=== PATIENT | female | born 1945 ===

== ENCOUNTER 2020-03-25 12:15 | Emergency (ER) | payer OTHER, SELFPAY ==
--- NOTE | 2020-03-25 12:23 | ED_ITS ---
HPI - Dizziness General Chief Complaint: Dizziness Stated Complaint: ? AMS,? UTI Time Seen by Provider: 03/25/20 12:17 Source: patient and EMS Mode of arrival: EMS Limitations: no limitations History of Present Illness MD elicited complaint: lightheadedness and disequilibrium Pertinent past history: other (hx of dizziness in the past) Onset (ago): unknown (woke up at 8am and the symptoms were present) Timing: gradual onset Severity: moderate Description: lightheadedness and off-balance History of similar symptoms: Yes Exacerbating factors: movement/ambulation and change in body position Relieving factors: remaining still Associated symptoms: nausea and weakness Associated neuro symptoms: other (DENIES) Related Data Home Medications Medication Instructions Recorded Confirmed albuterol sulfate 90 mcg/actuation 2 puff PO Q4H PRN 03/21/20 03/21/20 aerosol inhaler atorvastatin 80 mg tablet 80 mg PO DAILY 03/21/20 03/21/20 azelastine 137 mcg (0.1 %) nasal 2 spray INTRANASAL BID 03/21/20 03/21/20 spray aerosol celecoxib 200 mg capsule 200 mg PO BID 03/21/20 03/21/20 cephalexin 500 mg capsule 500 mg PO QID 03/21/20 03/21/20 cetirizine 10 mg tablet 10 mg PO DAILY 03/21/20 03/21/20 cholecalciferol (vitamin D3) 50 50 mcg PO DAILY 03/21/20 03/21/20 mcg (2,000 unit) capsule ciprofloxacin HCl 500 mg tablet 500 mg PO BID 03/21/20 03/21/20 dexlansoprazole 60 mg 60 mg PO DAILY 03/21/20 03/21/20 capsule,biphase delayed release diclofenac sodium 1 % topical gel 4 g TOPICAL QID PRN 03/21/20 03/21/20 doxycycline hyclate 100 mg tablet 100 mg PO BID 03/21/20 03/21/20 estradiol g VAGINAL 03/21/20 03/21/20 fluticasone fur. 100 mcg-umeclid ea INHALATION 03/21/20 03/21/20 62.5 mcg-vilant 25 mcg inhalat.powder metoprolol succinate 50 mg 100 mg PO DAILY 03/21/20 03/21/20 tablet,extended release 24 hr nitrofurantoin macrocrystal 100 mg 100 mg PO DAILY 03/21/20 03/21/20 capsule nitrofurantoin 1 cap PO BID 03/21/20 03/21/20 monohydrate/macrocrystals 100 mg capsule nitroglycerin 0.4 mg sublingual 0 mg SUBLINGUAL 03/21/20 03/21/20 tablet olmesartan 5 mg tablet 5 mg PO DAILY 03/21/20 03/21/20 oxybutynin chloride 5 mg 5 mg PO DAILY 03/21/20 03/21/20 tablet,extended release 24 hr phenazopyridine 200 mg tablet 200 mg PO Q8H PRN 03/21/20 03/21/20 prednisone 20 mg tablet 0 mg PO 03/21/20 03/21/20 tramadol 50 mg tablet 50 mg PO Q6H PRN 03/21/20 03/21/20 Previous Rx's Medication Instructions Recorded meclizine 25 mg PO TID PRN #30 tab 03/25/20 nitrofurantoin monohyd/m-cryst 100 mg PO BID 7 Days #14 cap 03/25/20 [Macrobid] Allergies Allergy/AdvReac Type Severity Reaction Status Date / Time clavulanic acid Allergy Mild RASH Unverified 03/05/20 15:48 [From Augmentin] amoxicillin [Augmentin] Allergy Unknown Verified 12/30/19 00:00 Review of Systems Review of Systems: Constitutional : No Fever, No Chills, No Fatigue ENT/Mouth : No sore throat, No Rhinorrhea Eyes: No Eye Pain, No Swelling, No Redness Cardiovascular : No Chest Pain, No SOB, No Dyspnea on Exertion Respiratory : No Cough, No Sputum Gastrointestinal : + Nausea, No Vomiting, No Diarrhea, No abdominal Pain Genitourinary : No Dysuria, No Urinary Frequency, No Hematuria, Musculoskeletal : No joint pain, No Myalgias, No Joint Swelling Skin : No Skin Lesions, No rash Neuro : No Weakness, No Numbness, + Dizziness, no Headache Psych : No Anxiety/Panic, No Depression Heme/Lymph: No Bruising, No Bleeding,No Lymphadenopathy Endocrine : No Polyuria, No Polydipsia All other systems reviewed and are negative [facility] Past Medical History Medical History COPD (chronic obstructive pulmonary disease) Diabetes Dizziness Headache HTN (hypertension) Hyperlipidemia Surgical History H/O colonoscopy History of bunionectomy History of foot surgery History of toe surgery S/P right coronary artery (RCA) stent placement Family History Family History (Updated 03/21/20 @ 09:45 by CHANNING Greco) Mother No problems noted. Father No problems noted. Social History Social History (Updated 03/25/20 @ 12:34 by Kriss Chang DO) Alcohol intake: never Smoking Status: Never smoker Use of substances other than those prescribed or required for medical reasons: No Advance Directives: No Advance Directives Information Provided: Yes Physical Exam Vital Signs and I&O and Narrative: Vital Signs and I&O: Vital Signs Temp 98.1 F 03/25/20 12:32 Pulse 75 03/25/20 12:32 Resp 16 03/25/20 12:32 BP 148/49 H 03/25/20 12:32 Pulse Ox 96 03/25/20 12:32 Intake & Output 03/24/20 03/25/20 03/25/20 18:59 06:59 18:59 Weight 83.007 kg Body Mass Index 31.4 Appearance: Alert. Oriented X3. No acute distress. Eyes: Pupils equal, round and reactive to light. ENT: Pharynx normal. Ears normal, visual celestin normal Neck: Normal inspection. Neck supple. CVS: Normal heart rate and rhythm. Pulses normal. Respiratory: No respiratory distress. Breath sounds normal. Abdomen: Soft and nontender. Skin: Skin warm and dry. Normal skin color. Normal skin turgor. Extremities: No lower extremity edema. No lower extremity edema. Neuro: Oriented X 3. No motor deficit. No sensory deficit. no drift, no nystagmus Course Course Course Narrative: labs stable, feels much better, will dose macrobid for UTI, states her dizziness resolved MDM - Dizziness MDM Narrative Medical decision making narrative: 74 yo female feels weak and nauseated, onset when she woke up over 4.5 hours ago and woke up with symptoms has no headache, hx of dizziness in the past, she has no pain or neuro symptoms will obtain EKG, labs, UA, hydrate and given zofran/antivert, seems atypical without deficits for posterior stroke at this time Lab Data Result diagrams: 03/25/20 14:15 03/25/20 14:15 Labs: Lab Results 03/25/20 03/25/20 03/25/20 Range/Units 14:15 14:15 14:15 WBC 8.3 (4.8-10.8) X10*3/uL RBC 3.79 L (4.20-5.50) X10*6/uL Hgb 11.2 L (12.0-16.0) g/dl Hct 34.5 L (37-47) % MCV 91.0 (80-98) fL MCH 29.6 (27.0-33.0) pg MCHC 32.5 (31.0-35.0) g/dl RDW 14.7 (11.0-16.0) % Plt Count 258 (160-400) X10*3/uL MPV 10.7 (9.4-12.3) fL Immature Gran % (Auto) 0.5 H (0.0-0.4) % Neut % (Auto) 62.4 (45-73) % Lymph % (Auto) 24.2 (20-40) % [place] % (Auto) 10.8 (2-11) % Eos % (Auto) 1.9 (0-4) % Baso % (Auto) 0.2 (0-2) % Neut # (Auto) 5.2 (2.0-8.3) X10*3/uL Lymph # (Auto) 2.0 (1.2-4.9) X10*3/uL [place] # (Auto) 0.9 (0.1-1.2) X10*3/uL Eos # (Auto) 0.2 (0.0-0.4) X10*3/uL Baso # (Auto) 0.0 (0.0-0.2) X10*3/uL Abs Immat Gran (auto) 0.04 H (0.00-0.03) X10*3/uL Absolute Nucleated RBC 0.000 (0.0-0.012) X10*3/uL Nucleated RBC % (auto) 0.0 (0.0-0.2) /100WBC Hold Blue Top SEE NOTE Sodium (135-145) mmol/L Potassium (3.3-5.1) mmol/l Chloride (96-108) mmol/L Carbon Dioxide (22-29) mmol/L Anion Gap (12-20) BUN (9-16) mg/dL Creatinine (0.5-1.4) mg/dL Estim Creat Clear Calc Estimated GFR Random Glucose (60-115) mg/dL Calcium (8.4-10.2) mg/dL Magnesium (1.6-2.6) mg/dL Total Bilirubin (0.0-1.0) mg/dL Direct Bilirubin (0.0-0.5) mg/dL AST (5-31) U/L ALT (0-31) U/L Alkaline Phosphatase (39-117) U/L Troponin I High Sens (<3.5-17.0) ng/L Total Protein (6.5-8.0) g/dL Albumin (3.5-5.0) g/dL Lipase (8-78) U/L Urine Color YELLOW Urine Appearance HAZY Urine pH 6.5 (5.0-8.0) Ur Specific [place] 1.015 (1.005-1.025) Urine Protein NEG (NEG-TRACE) MG/DL Urine Glucose (UA) NEG (NEG) MG/DL Urine Ketones NEG (NEG) MG/DL Urine Blood NEG (NEG) Urine Nitrite NEG (NEG) Ur Leukocyte Esterase 1+ H (NEG) Urine RBC 0 (0) /HPF Urine WBC 10-14 H (0-4) /HPF Ur Squamous Epith Cells 2+ /LPF Ur Renal Epithelial Cell 1+ /LPF Urine Bacteria TRACE /LPF 03/25/20 03/25/20 Range/Units 14:15 14:15 WBC (4.8-10.8) X10*3/uL RBC (4.20-5.50) X10*6/uL Hgb (12.0-16.0) g/dl Hct (37-47) % MCV (80-98) fL MCH (27.0-33.0) pg MCHC (31.0-35.0) g/dl RDW (11.0-16.0) % Plt Count (160-400) X10*3/uL MPV (9.4-12.3) fL Immature Gran % (Auto) (0.0-0.4) % Neut % (Auto) (45-73) % Lymph % (Auto) (20-40) % [place] % (Auto) (2-11) % Eos % (Auto) (0-4) % Baso % (Auto) (0-2) % Neut # (Auto) (2.0-8.3) X10*3/uL Lymph # (Auto) (1.2-4.9) X10*3/uL [place] # (Auto) (0.1-1.2) X10*3/uL Eos # (Auto) (0.0-0.4) X10*3/uL Baso # (Auto) (0.0-0.2) X10*3/uL Abs Immat Gran (auto) (0.00-0.03) X10*3/uL Absolute Nucleated RBC (0.0-0.012) X10*3/uL Nucleated RBC % (auto) (0.0-0.2) /100WBC Hold Blue Top Sodium 142 (135-145) mmol/L Potassium 4.2 (3.3-5.1) mmol/l Chloride 107 (96-108) mmol/L Carbon Dioxide 27 (22-29) mmol/L Anion Gap 12 (12-20) BUN 12 (9-16) mg/dL Creatinine 0.97 (0.5-1.4) mg/dL Estim Creat Clear Calc 52.2 Estimated GFR 56 Random Glucose 108 (60-115) mg/dL Calcium 9.0 (8.4-10.2) mg/dL Magnesium 1.9 (1.6-2.6) mg/dL Total Bilirubin 0.5 (0.0-1.0) mg/dL Direct Bilirubin 0.2 (0.0-0.5) mg/dL AST 17 (5-31) U/L ALT 17 (0-31) U/L Alkaline Phosphatase 94 (39-117) U/L Troponin I High Sens < 3.5 (<3.5-17.0) ng/L Total Protein 6.4 L (6.5-8.0) g/dL Albumin 4.1 (3.5-5.0) g/dL Lipase 42 (8-78) U/L Urine Color Urine Appearance Urine pH (5.0-8.0) Ur Specific [place] (1.005-1.025) Urine Protein (NEG-TRACE) MG/DL Urine Glucose (UA) (NEG) MG/DL Urine Ketones (NEG) MG/DL Urine Blood (NEG) Urine Nitrite (NEG) Ur Leukocyte Esterase (NEG) Urine RBC (0) /HPF Urine WBC (0-4) /HPF Ur Squamous Epith Cells /LPF Ur Renal Epithelial Cell /LPF Urine Bacteria /LPF ECG Data Attestation: I personally reviewed and interpreted this ECG as follows: ECG interpretation date: 03/25/20 ECG interpretation time: 13:45 Interpretation: Rate: 82 Rhythm: NSR [place]: normal Normal P waves. Normal LIDIA. Normal QRS complex. ST T wave : nonspecific qTC: normal prior studies: no acute ischemia The study has been interpreted contemporaneously by me. . Discharge Plan Discharge Clinical Impression: Acute UTI, Dizziness Patient Disposition: Home, Self-Care Instructions: Dizziness (ED), Urinary Tract Infection in Older Adults (ED) Prescriptions: New meclizine 25 mg tablet 25 mg PO TID PRN (Reason: dizziness) Qty: 30 RF: 0 nitrofurantoin monohyd/m-cryst [Macrobid] 100 mg capsule 100 mg PO BID 7 Days Qty: 14 RF: 0 No Action doxycycline hyclate 100 mg tablet 100 mg PO BID RF: 0 prednisone 20 mg tablet 0 mg PO RF: 0 nitroglycerin 0.4 mg tablet, sublingual 0 mg sublingual RF: 0 Dexilant 60 mg capsule,biphase delayed releas 60 mg PO DAILY RF: 0 cephalexin 500 mg capsule 500 mg PO QID RF: 0 diclofenac sodium 1 % gel 4 g topical QID PRN (Reason: pain) RF: 0 Trelegy Ellipta 100-62.5-25 mcg blister with device inhalation RF: 0 phenazopyridine 200 mg tablet 200 mg PO Q8H PRN (Reason: dysuria) RF: 0 albuterol sulfate 90 mcg/actuation HFA aerosol inhaler 2 puff PO Q4H PRNRF: 0 estradiol 0.01 % (0.1 mg/gram) cream vaginal RF: 0 oxybutynin chloride 5 mg tablet extended release 24hr 5 mg PO DAILY RF: 0 cetirizine 10 mg tablet 10 mg PO DAILY RF: 0 nitrofurantoin macrocrystal 100 mg capsule 100 mg PO DAILY RF: 0 olmesartan 5 mg tablet 5 mg PO DAILY RF: 0 azelastine 137 mcg (0.1 %) aerosol,spray 2 spray intranasal BID RF: 0 atorvastatin 80 mg tablet 80 mg PO DAILY RF: 0 ciprofloxacin HCl 500 mg tablet 500 mg PO BID RF: 0 nitrofurantoin monohyd/m-cryst 100 mg capsule 1 cap PO BID RF: 0 celecoxib 200 mg capsule 200 mg PO BID RF: 0 metoprolol succinate 50 mg tablet extended release 24 hr 100 mg PO DAILY RF: 0 tramadol 50 mg tablet 50 mg PO Q6H PRN (Reason: pain) RF: 0 cholecalciferol (vitamin D3) 50 mcg (2,000 unit) capsule 50 mcg PO DAILY RF: 0 Referrals: Wiley Thompson MD [Primary Care Provider] - 2 days (if not better)
--- NOTE | 2020-03-25 12:24 | ECG_ITS ---
Test Reason : DIZZINESS Blood Pressure : / mmHG Vent. Rate : 082 BPM Atrial Rate : 082 BPM P-R Int : 130 ms QRS Dur : 076 ms QT Int : 378 ms P-R-T Axes : 066 041 033 degrees QTc Int : 441 ms Normal sinus rhythm Nonspecific T wave abnormality Abnormal ECG When compared with ECG of 29-FEB-2020 00:43, Nonspecific T wave abnormality, worse in Anterior leads Referred By: Kriss Chang Electronically Signed By:BRITT STEWART
[2020-03-25 12:32] VITALS: BP 148/49; BP 160/74; PULSE 75; PULSE 90; RESP 16; TEMP 36.7; O2SAT 100; O2SAT 96; BMI 31.4
[2020-03-25] MEDS: 0.9 % Sodium Chloride 1,000 ML 999 ML IVCONT (12:44)
[2020-03-25] MEDS: ondansetron HCL 4 MG/2 ML VIAL IVPUSH (12:45)
[2020-03-25] MEDS: Meclizine HCl 25 MG TABLET PO (12:45)
[2020-03-25 14:22] LABS: MANUAL DIFF FLAG NO
[2020-03-25 14:27] LABS: Basophils Percent Auto 0.2 % (0-2); Eosinophils Absolute Auto 0.2 X10*3/uL (0.0-0.4); Eosinophils Percent Auto 1.9 % (0-4); Glucose Urine UA NEG (NEG); Hematocrit 34.5 % (37-47); Hemoglobin 11.2 g/dl (12.0-16.0); Imm Gran Abs Auto 0.04 X10*3/uL (0.00-0.03); Imm Gran Pct Auto 0.5 % (0.0-0.4); Leukocyte Esterase Urine 1+ (NEG); Lymphocytes Percent Auto 24.2 % (20-40); Mean Corpuscular HGB Conc 32.5 g/dl (31.0-35.0); Mean Corpuscular Hemoglobin 29.6 pg (27.0-33.0); Mean Platelet Volume 10.7 fL (9.4-12.3); Monocytes Absolute Auto 0.9 X10*3/uL (0.1-1.2); Monocytes Percent Auto 10.8 % (2-11); Neutrophils Absolute Auto 5.2 X10*3/uL (2.0-8.3); Neutrophils Percent Auto 62.4 % (45-73); Nitrite Urine NEG (NEG); PH 6.5 (5.0-8.0); Platelet Count 258 X10*3/uL (160-400); Red Blood Count 3.79 X10*6/uL (4.20-5.50); Red Cell Distribution Width 14.7 % (11.0-16.0); Specific Gravity - Urine 1.015 (1.005-1.025); Urine Blood NEG (NEG); Urine Ketones NEG (NEG); Urine Protein NEG (NEG-TRACE); White Blood Count 8.3 X10*3/uL (4.8-10.8)
[2020-03-25 14:33] LABS: Appearance Urine HAZY; Color Urine YELLOW
[2020-03-25 14:47] LABS: Alanine Aminotransferase 17 U/L (0-31); Albumin Level 4.1 g/dL (3.5-5.0); Alkaline Phosphatase 94 U/L (39-117); Anion Gap 12 (12-20); Aspartate Amino Transferase 17 U/L (5-31); Bilirubin Direct 0.2 mg/dL (0.0-0.5); Bilirubin Total 0.5 mg/dL (0.0-1.0); Blood Urea Nitrogen 12 mg/dL (9-16); Carbon Dioxide 27 mmol/L (22-29); Chloride 107 mmol/L (96-108); Creatinine Clr Calc Pharmacy 52.2; Estimated Glomerular Filt Rate 56; Glucose Random 108 mg/dL (60-115); Lipase 42 U/L (8-78); Magnesium 1.9 mg/dL (1.6-2.6); Potassium 4.2 mmol/l (3.3-5.1); Sodium 142 mmol/L (135-145); Total Protein 6.4 g/dL (6.5-8.0)
[2020-03-25 14:52] LABS: Bacteria Urine TRACE /LPF; RBC Urine 0 /HPF (0); Renal Epithelial Cells Urine 1+ /LPF; Squamous Epithelial Cell Urine 2+ /LPF
[2020-03-25 14:54] LABS: Troponin-I High Sensitivity < 3.5 ng/L (<3.5-17.0)
[2020-03-25 15:07] VITALS: BP 143/71; PULSE 100; RESP 17; TEMP 36.8; O2SAT 95
[2020-03-25] MEDS: Nitrofurantoin Monohyd/M-Cryst 100 MG CAPSULE PO (15:13)
== END 2020-03-25 15:14 | disposition home or self-care (01) ==
PROVIDERS: Emergency Provider Emergency Medicine; PCP Internal Medicine
DX: N39.0 Urinary tract infection, site not specified (principal); R42 Dizziness and giddiness; E11.9 Type 2 diabetes mellitus without complications; I10 Essential (primary) hypertension; E78.5 Hyperlipidemia, unspecified; Z79.899 Other long term (current) drug therapy
CPT/HCPCS: 36415; 80048; 80076; 81001; 83690; 83735; 84484; 85025; 87086; 93005; 93010; 96361; 96374; 99284; J2405

== ENCOUNTER 2020-04-10 12:52 | Outpatient (REF) | payer OTHER, SELFPAY ==
--- NOTE | 2020-04-10 14:49 | XR_ITS ---
EXAMINATION: XR CHEST CLINICAL INFORMATION: COPD exacerbation. COMPARISON: 02/29/2020 chest radiograph. TECHNIQUE: 2 views of the chest were obtained. FINDINGS: No significant abnormality is noted involving the heart, lungs, mediastinum, bony thorax or soft tissues. XR/XR chest 2V IMPRESSION: No acute cardiopulmonary process.
[2020-04-10 15:13] LABS: MANUAL DIFF FLAG NO
[2020-04-10 15:16] LABS: Basophils Percent Auto 0.3 % (0-2); Eosinophils Absolute Auto 0.3 X10*3/uL (0.0-0.4); Eosinophils Percent Auto 4.3 % (0-4); Hematocrit 33.1 % (37-47); Hemoglobin 10.6 g/dl (12.0-16.0); Imm Gran Abs Auto 0.02 X10*3/uL (0.00-0.03); Imm Gran Pct Auto 0.3 % (0.0-0.4); Mean Corpuscular Hemoglobin 29.2 pg (27.0-33.0); Mean Corpuscular Volume 91.2 fL (80-98); Mean Platelet Volume 10.4 fL (9.4-12.3); Monocytes Absolute Auto 0.9 X10*3/uL (0.1-1.2); Monocytes Percent Auto 12.7 % (2-11); Neutrophils Absolute Auto 3.5 X10*3/uL (2.0-8.3); Neutrophils Percent Auto 52.4 % (45-73); Platelet Count 337 X10*3/uL (160-400); Red Blood Count 3.63 X10*6/uL (4.20-5.50); Red Cell Distribution Width 14.8 % (11.0-16.0); White Blood Count 6.7 X10*3/uL (4.8-10.8)
[2020-04-10 16:22] LABS: Erythrocyte Sedimentation Rate 32 MM/HR (0-20)
[2020-04-11 16:46] LABS: Immunoglobulin A 83 mg/dL (70-320)
[2020-04-13 18:27] LABS: Immunoglobulin E 71 kU/L (<OR=114)
[2020-04-13 22:42] LABS: Immunoglobulin G Subclass 1 531 mg/dL (382-929); Immunoglobulin G Subclass 2 127 mg/dL (241-700); Immunoglobulin G Subclass 3 61 mg/dL (22-178); Immunoglobulin G Subclass 4 31.1 mg/dL (4-86); Immunoglobulin G Total 797 mg/dL (600-1540)
== END 2020-04-10 12:53 | disposition home or self-care (01) ==
LOC: HO.LAB 12:52
PROVIDERS: PCP Internal Medicine; Visit Provider Hospitalist
DX: J44.0 Chronic obstructive pulmonary disease with (acute) lower respiratory infection (principal); J31.0 Chronic rhinitis
CPT/HCPCS: 36415; 71046; 82784; 82785; 85025; 85652; 87070; 87205; 99214

== ENCOUNTER 2020-04-10 19:12 | Emergency (ER) | payer OTHER, SELFPAY | END 2020-04-10 20:17 | disposition left against medical advice (07) | PROVIDERS: Emergency Provider Emergency Medicine; PCP Internal Medicine | DX: R06.02 Shortness of breath (principal) | CPT/HCPCS: 99281 ==

== ENCOUNTER → 2020-04-28 12:45 | Outpatient (BNVA) | payer OTHER, SELFPAY | PROVIDERS: PCP Internal Medicine; Referring Provider Internal Medicine; Visit Provider Hospitalist | DX: J44.0 Chronic obstructive pulmonary disease with (acute) lower respiratory infection (principal); J31.0 Chronic rhinitis; K21.9 Gastro-esophageal reflux disease without esophagitis; D80.1 Nonfamilial hypogammaglobulinemia | CPT/HCPCS: 99212 ==

== ENCOUNTER → 2020-07-30 12:49 | Outpatient (BNVA) | payer OTHER, SELFPAY | PROVIDERS: PCP Internal Medicine; Visit Provider Hospitalist | DX: J44.0 Chronic obstructive pulmonary disease with (acute) lower respiratory infection (principal); J31.0 Chronic rhinitis; K21.9 Gastro-esophageal reflux disease without esophagitis; D80.1 Nonfamilial hypogammaglobulinemia | CPT/HCPCS: Q3014 ==

== ENCOUNTER → 2021-01-29 12:57 | Outpatient (BNVA) | payer OTHER, SELFPAY | PROVIDERS: PCP Internal Medicine; Visit Provider Hospitalist | DX: J41.8 Mixed simple and mucopurulent chronic bronchitis (principal); J31.0 Chronic rhinitis; K21.9 Gastro-esophageal reflux disease without esophagitis; D80.1 Nonfamilial hypogammaglobulinemia | CPT/HCPCS: 99212 ==

== ENCOUNTER → 2021-03-05 09:51 | Outpatient (BNVA) | payer MEDICARE, SELFPAY | PROVIDERS: PCP Internal Medicine; Visit Provider Hospitalist | DX: J41.8 Mixed simple and mucopurulent chronic bronchitis (principal); J31.0 Chronic rhinitis; K21.9 Gastro-esophageal reflux disease without esophagitis; D80.1 Nonfamilial hypogammaglobulinemia; R49.0 Dysphonia | CPT/HCPCS: 99212 ==

== ENCOUNTER → 2021-05-21 13:56 | Outpatient (BNVA) | payer MEDICARE, SELFPAY | PROVIDERS: PCP Internal Medicine; Visit Provider Hospitalist | DX: J41.8 Mixed simple and mucopurulent chronic bronchitis (principal); J31.0 Chronic rhinitis; J40 Bronchitis, not specified as acute or chronic; D80.1 Nonfamilial hypogammaglobulinemia; K21.9 Gastro-esophageal reflux disease without esophagitis | CPT/HCPCS: 99212 ==

== ENCOUNTER → 2021-08-19 14:49 | Outpatient (BNVA) | payer MEDICARE, SELFPAY | PROVIDERS: PCP Internal Medicine; Visit Provider Obstetrics & Gynecology | DX: Z13.89 Encounter for screening for other disorder (principal) ==

== ENCOUNTER → 2021-09-02 12:50 | Outpatient (BNVA) | payer MEDICARE, SELFPAY | PROVIDERS: PCP Internal Medicine; Visit Provider Hospitalist | DX: J41.8 Mixed simple and mucopurulent chronic bronchitis (principal); J31.0 Chronic rhinitis; D80.1 Nonfamilial hypogammaglobulinemia; K21.9 Gastro-esophageal reflux disease without esophagitis | CPT/HCPCS: 99212 ==

== ENCOUNTER 2021-09-09 12:35 | Outpatient (REF) | payer OTHER, SELFPAY ==
--- NOTE | ~2021-09-09 | MM_ITS ---
EXAMINATION: MM SCREENING DIGITAL BREAST TOMOSYNTHESIS, BILATERAL CLINICAL INFORMATION: Screening. Asymptomatic. The lifetime risk of breast cancer based on the Tyrer-Cuzick Model is 1.3%. COMPARISON: Mammography: April 22, 2011 July 17, 2008 TECHNIQUE: Digital breast tomosynthesis is performed in both the craniocaudal and mediolateral oblique views along with computer-aided detection (CAD). Synthesized 2D images are generated from the tomosynthesis. FINDINGS: There are scattered areas of fibroglandular density (ACR BI-RADS breast composition Category b). There are no significant masses, abnormal calcifications, or other abnormalities. MM/MM tomosynthesis screening BI IMPRESSION: There are no significant changes from prior study. ASSESSMENT: BI-RADS 1: Negative RECOMMENDATION: Routine annual mammography screening. This patient's information was entered into a reminder system with a target due date for their next mammogram.
--- NOTE | ~2021-09-09 | MM_ITS ---
EXAMINATION: BONE DENSITOMETRY CLINICAL INDICATION: Encounter for screening for osteoporosis. Menopausal and female climacteric states. COMPARISON: This is the patient's baseline examination. TECHNIQUE: Using a [employer] Wireless DXA System (software version: 13.1) manufactured by [employer], dual-energy x-ray absorptiometry was performed of the lumbar spine and left hip. The images are of good technical quality. Summary results are attached. FINDINGS: AP SPINE L1-L2 (excluding L3 and L4): The data of L1-L4 has been changed to exclude the L3 and L4 vertebral bodies, because degenerative sclerosis at these levels may cause overestimation of lumbar spine density. BMD 0.898 g/cm2, Z-score -1.1, T-score -2.2, osteopenia. LEFT FEMUR, NECK: BMD 0.880 g/cm2, Z-score 0.5, T-score -1.1, osteopenia. LEFT FEMUR, TOTAL: BMD 0.961 g/cm2, Z-score 1.0, T-score -0.4, normal. IDENTIFIED RISK FACTORS: Height loss. Osteoporosis. Secondary osteoporosis, (early menopause, intestinal or bowel disease). HISTORY OF FRACTURE: None listed. MEDICATIONS: Vitamin D. MM/XR DEXA axial skeleton IMPRESSION: 1. DIAGNOSIS: Osteopenia based on the lowest T-score value of -2.2 in the lumbar spine applying World Health Organization criteria. 2. 10-YEAR FRACTURE RISK PREDICTION, FRAX: Major osteoporotic fracture (clinical spine, forearm, hip or shoulder) 6.0%. Hip fracture 1.0%. 3. Treatment Recommendations: NOF guidelines recommend consideration for treatment in postmenopausal women and men age 50 and older presenting with the following: -A hip or vertebral (clinical or morphometric) fracture. -T-score less than or equal to -2.5 at the femoral neck or spine after appropriate evaluation to exclude secondary causes. -Low bone mass at the hip or spine and a 10-year fracture probability by FRAX of greater than or equal to 3% for hip fracture or greater than or equal to 20% for major osteoporotic fracture based on the [place] adapted WHO algorithm. 4. Other Recommendations: All treatment decisions require clinical judgment and consideration of individual patient factors, including patient preferences, comorbidities, previous drug use, risk factors not captured in the FRAX model (e.g. frailty, falls, vitamin D deficiency, increased bone turnover, interval significant decline in bone density) and possible under or overestimation of fracture risk by FRAX. Additional medical evaluation for secondary cause of low bone mineral density may be appropriate. FUTURE SCAN RECOMMENDATION: People with diagnosed cases of osteoporosis or at high risk for fracture should have regular bone mineral density tests. For patients eligible for Medicare, routine testing is allowed once every 2 years. The testing frequency can be increased to one year for patients who have rapidly progressing disease, those who are receiving or discontinuing medical therapy to restore bone mass, or have additional risk factors.
== END 2021-09-09 12:36 | disposition home or self-care (01) ==
LOC: HO.MAMMO 12:35
PROVIDERS: PCP Internal Medicine; Visit Provider Obstetrics & Gynecology
DX: Z13.820 Encounter for screening for osteoporosis (principal); Z78.0 Asymptomatic menopausal state; Z79.899 Other long term (current) drug therapy; Z12.31 Encounter for screening mammogram for malignant neoplasm of breast
CPT/HCPCS: 77063; 77067; 77080

== ENCOUNTER → 2021-09-22 13:50 | Outpatient (BNVA) | payer OTHER, SELFPAY | PROVIDERS: Visit Provider Obstetrics & Gynecology | DX: M85.80 Other specified disorders of bone density and structure, unspecified site (principal) | CPT/HCPCS: 99212 ==

== ENCOUNTER 2021-11-18 13:11 | Outpatient (REF) | payer OTHER, SELFPAY ==
--- NOTE | ~2021-11-18 | XR_ITS ---
EXAMINATION: XR CHEST CLINICAL INFORMATION: Cough COMPARISON: 04/10/2020 TECHNIQUE: 2 views of the chest were obtained. FINDINGS: The lungs are well expanded. There is no focal consolidation, edema, or effusion. No pneumothorax. The cardiomediastinal silhouette is within normal limits. No acute osseous abnormality. Degenerative changes at both shoulders. XR/XR chest 2V IMPRESSION: No acute pulmonary finding.
== END 2021-11-18 13:12 | disposition home or self-care (01) ==
LOC: HO.HMGCX 13:11
PROVIDERS: PCP Internal Medicine
DX: R05.9 Cough, unspecified (principal)
CPT/HCPCS: 71046

== ENCOUNTER 2022-03-09 10:46 | Outpatient (REF) | payer OTHER, SELFPAY ==
[2022-03-09 12:03] LABS: Erythrocyte Sedimentation Rate 29 MM/HR (0-20)
[2022-03-11 14:02] LABS: Immunoglobulin G Subclass 1 587 mg/dL (382-929); Immunoglobulin G Subclass 2 138 mg/dL (241-700); Immunoglobulin G Subclass 3 79 mg/dL (22-178); Immunoglobulin G Total 872 mg/dL (600-1540)
[2022-03-11 14:47] LABS: Immunoglobulin E 111 kU/L (<OR=114)
== END 2022-03-09 10:47 | disposition home or self-care (01) ==
LOC: HO.LAB 10:46
PROVIDERS: PCP Internal Medicine; Visit Provider Hospitalist
DX: D80.1 Nonfamilial hypogammaglobulinemia (principal); J41.8 Mixed simple and mucopurulent chronic bronchitis
CPT/HCPCS: 36415; 82784; 82785; 85652

== ENCOUNTER 2022-03-10 13:41 | Outpatient (REF) | payer OTHER, SELFPAY ==
--- NOTE | ~2022-03-10 | XR_ITS ---
EXAMINATION: XR CHEST CLINICAL INFORMATION: Bronchopneumonia. COMPARISON: 11/18/2021 chest radiographs. TECHNIQUE: 2 views of the chest were obtained. FINDINGS: No significant abnormality is noted involving the heart, lungs, mediastinum, bony thorax or soft tissues. XR/XR chest 2V IMPRESSION: No acute cardiopulmonary process.
== END 2022-03-10 13:42 | disposition home or self-care (01) ==
LOC: HO.XRAY 13:41
PROVIDERS: PCP Internal Medicine; Visit Provider Hospitalist
DX: J41.8 Mixed simple and mucopurulent chronic bronchitis (principal); J18.0 Bronchopneumonia, unspecified organism; J31.0 Chronic rhinitis; K21.9 Gastro-esophageal reflux disease without esophagitis; D80.1 Nonfamilial hypogammaglobulinemia
CPT/HCPCS: 71046; 99212

== ENCOUNTER 2022-04-02 12:02 | Outpatient (REF) | payer OTHER, SELFPAY ==
[2022-04-02 14:50] LABS: Influenza A PCR NEGATIVE (Negative); Influenza B PCR NEGATIVE (Negative); Resp Syncy Virus RNA Qual PCR NEGATIVE (Negative); SARS COV2 PCR INHOUSE NEGATIVE (Negative)
== END 2022-04-02 12:03 | disposition home or self-care (01) ==
LOC: HO.LAB 12:02
PROVIDERS: Visit Provider Nurse Practitioner Acute Care
DX: R51.9 Headache, unspecified (principal); Z20.822 Contact with and (suspected) exposure to COVID-19
CPT/HCPCS: 0241U

== ENCOUNTER 2022-04-04 11:38 | Outpatient (REF) | payer OTHER, SELFPAY ==
[2022-04-04 12:10] LABS: Appearance Urine Clear; Color Urine Yellow; Glucose Urine UA Negative (Negative); Leukocyte Esterase Urine Moderate (2+) (Negative); Nitrite Urine Negative (Negative); Specific Gravity - Urine 1.015 (1.005-1.025); UMIC TRIGGER UACC YES; Urine Blood Negative (Negative); Urine Ketones Negative (Negative); Urine Protein Negative (Neg-Trace)
[2022-04-04 12:13] LABS: Bacteria Urine Trace (None Seen); Hyaline Casts Urine 0-2 /LPF (0-2); RBC Urine 0-2 /HPF (0-2); UACC Culture Trigger YES
== END 2022-04-04 11:39 | disposition home or self-care (01) ==
LOC: HO.LAB 11:38
PROVIDERS: PCP Internal Medicine; Visit Provider Nurse Practitioner Acute Care
DX: R39.15 Urgency of urination (principal)
CPT/HCPCS: 81001; 87086

== ENCOUNTER 2022-04-26 04:40 | Emergency (ER) | payer OTHER, SELFPAY ==
[2022-04-26 04:43] VITALS: BP 111/65; BP 130/90; PULSE 80; PULSE 92; RESP 18; TEMP 36.7; O2SAT 93; O2SAT 96; BMI 31.8
--- NOTE | 2022-04-26 05:01 | ED_ITS ---
HPI - Female Genitourinary General Chief complaint: Urogenital-Female Stated complaint: DIFFICULTY URINATING Time Seen by Provider: 04/26/22 05:00 Source: patient Mode of arrival: ambulatory Limitations: no limitations History of Present Illness HPI Narrative: Patient with history of recurrent UTI been feeling worse for last 2 days called her urologist was prescribed her Macrobid last time patient it was 21:00 feels she is holding the urine bladder scan in the ER shows 500 cc of urine no flank pain no fever no chills complaining of frequency and dysuria as in the past Related Data Home Medications Medication Instructions Recorded Confirmed atorvastatin 80 mg tablet 80 mg PO DAILY 03/21/20 11/18/21 cetirizine 10 mg tablet 10 mg PO DAILY 03/21/20 11/18/21 dexlansoprazole 60 mg 60 mg PO DAILY 03/21/20 11/18/21 capsule,biphase delayed release nitroglycerin 0.4 mg sublingual 0 mg sublingual 03/21/20 11/18/21 tablet albuterol sulfate 2.5 mg/3 mL mg inhalation Q4H PRN wheezing 04/28/20 11/18/21 (0.083 %) solution for nebulization melatonin 10 mg tablet 10 mg PO BEDTIME PRN 08/19/21 11/18/21 metoprolol succinate 50 mg 50 mg PO DAILY 08/19/21 11/18/21 tablet,extended release 24 hr amlodipine 5 mg tablet 5 mg PO DAILY 09/02/21 11/18/21 aspirin 81 mg tablet,delayed 81 mg PO DAILY 09/02/21 11/18/21 release isosorbide mononitrate 30 mg 30 mg PO QAM 09/02/21 11/18/21 tablet,extended release 24 hr Previous Rx's Medication Instructions Recorded cholecalciferol (vitamin D3) 50 50 mcg PO DAILY 30 days #30 caps 04/08/20 mcg (2,000 unit) capsule azelastine 137 mcg (0.1 %) nasal 2 spray intranasal BID #90 mL 04/28/20 spray aerosol levofloxacin 500 mg tablet 500 mg PO DAILY 10 days #10 tabs 03/10/22 meclizine 25 mg tablet 25 mg PO BID PRN dizziness #14 tabs 04/02/22 nitrofurantoin 100 mg PO BID #14 caps 04/02/22 monohydrate/macrocrystals 100 mg capsule (Macrobid) Trelegy Ellipta 100 mcg-62.5 1 ea PO DAILY #60 ea 04/13/22 mcg-25 mcg powder for inhalation ([id number]) albuterol sulfate 90 mcg/actuation 2 puff PO Q4H PRN for wheezing 04/19/22 aerosol inhaler #8.5 ea cefuroxime axetil 250 mg tablet 250 mg PO BID 7 days #14 tabs 04/26/22 phenazopyridine 200 mg tablet 200 mg PO TID 2 days #6 tabs 04/26/22 (Pyridium) Allergies Allergy/AdvReac Type Severity Reaction Status Date / Time amoxicillin [Augmentin] Allergy Mild Rash Verified 04/02/22 11:57 clavulanic acid Allergy Mild RASH Verified 04/02/22 11:57 [From Augmentin] Review of Systems Review of Systems: Yes all other systems are reviewed and are negative [facility] Past Medical History Medical History Bronchopneumonia Chronic rhinitis COPD (chronic obstructive pulmonary disease) Diabetes Dizziness Headache HTN (hypertension) Hyperlipidemia Hypogammaglobulinemia Surgical History H/O colonoscopy History of bunionectomy History of foot surgery History of toe surgery S/P right coronary artery (RCA) stent placement Family History Family History Mother No problems noted. Father No problems noted. Social History Social History Alcohol intake: never Patient Tobacco Use Status: Former Tobacco user Advance Directives: No Physical Exam Vital Signs: Vital Signs: Last Vital Signs Temp 98.0 F 04/26/22 06:29 Pulse 74 04/26/22 06:29 Resp 18 04/26/22 04:43 BP 128/53 L 04/26/22 06:29 Pulse Ox 97 04/26/22 06:29 O2 Del Method 04/26/22 06:29 BMI result Body Mass Index 31.8 Appearance: Alert. Oriented X3. No acute distress. ENT: Pharynx normal. Oral Mucosa moist Neck: Normal inspection. Neck supple. CVS: Normal heart rate and rhythm. Pulses normal. Respiratory: No respiratory distress. Equal air entry bilateral, no wheezing/rales/rhonchi Abdomen: Soft and nontender. Bowel sounds are present, no mass palpable, no CVA tenderness Skin: Skin warm and dry. Normal skin color. Normal skin turgor. Extremities: No lower extremity edema. No calf tenderness Neuro: Oriented X 3. No motor deficit. Medications Administered Discontinued Medications Generic Name Dose Route Start Last Admin Trade Name Richardsonq PRN Reason Stop Dose Admin Cefuroxime Axetil 250 mg 04/26/22 05:45 04/26/22 06:12 Cefuroxime Axetil 250 Mg Tablet PO 04/26/22 05:46 250 mg ONCE ONE Administration Phenazopyridine HCl 200 mg 04/26/22 05:45 04/26/22 06:12 Phenazopyridine Hcl 200 Mg Tablet PO 04/26/22 05:46 200 mg ONCE ONE Administration MDM - Female Genitourinary Lab Data Labs: Lab Results 04/26/22 Range/Units 05:27 Urine Color Yellow Urine Appearance Clear Urine pH 5.5 (5.0-9.0) Ur Specific [place] 1.010 (1.005-1.025) Urine Protein Negative (Neg-Trace) mg/dL Urine Glucose (UA) Negative (Negative) mg/dL Urine Ketones Negative (Negative) mg/dL Urine Blood Small (1+) H (Negative) Urine Nitrite Negative (Negative) Ur Leukocyte Esterase Large (3+) H (Negative) Urine RBC 0-2 (0-2) /HPF Urine WBC >50 H (0-5) /HPF Ur Squamous Epith Cells 0-2 (0-2) /HPF Urine Bacteria None Seen (None Seen) Hyaline Casts 0-2 (0-2) /LPF Discharge Plan Discharge Clinical Impression: Urinary tract infection, Acute urinary retention Patient Disposition: Home, Self-Care Instructions: Urinary Tract Infection in Women (ED), Acute Urinary Retention in Women (ED) Additional Instructions: Drink plenty of fluids Continue Macrobid Will add Ceftin and Pyridium Follow-up with urine culture report and urologist Report to ER if high fever//flank pain Prescriptions: New cefuroxime axetil 250 mg tablet 250 mg PO BID 7 Days Qty: 14 0RF phenazopyridine [Pyridium] 200 mg tablet 200 mg PO TID 2 Days Qty: 6 0RF No Action cholecalciferol (vitamin D3) 50 mcg (2,000 unit) capsule 50 mcg PO DAILY 30 Days Qty: 30 3RF azelastine 137 mcg (0.1 %) aerosol,spray 2 spray intranasal BID Qty: 90 3RF Trelegy Ellipta 100-62.5-25 mcg blister with device 1 ea PO DAILY Qty: 60 11RF albuterol sulfate 90 mcg/actuation HFA aerosol inhaler 2 puff PO Q4H PRN (Reason: for wheezing) Qty: 8.5 3RF nitrofurantoin monohyd/m-cryst [Macrobid] 100 mg capsule 100 mg PO BID Qty: 14 0RF Rx Instructions: must administer with a meal/food meclizine 25 mg tablet 25 mg PO BID PRN (Reason: dizziness) Qty: 14 0RF albuterol sulfate 2.5 mg /3 mL (0.083 %) solution for nebulization inhalation Q4H PRN (Reason: wheezing) nitroglycerin 0.4 mg tablet, sublingual 0 mg sublingual Dexilant 60 mg capsule,biphase delayed releas 60 mg PO DAILY cetirizine 10 mg tablet 10 mg PO DAILY atorvastatin 80 mg tablet 80 mg PO DAILY metoprolol succinate 50 mg tablet extended release 24 hr 50 mg PO DAILY amlodipine 5 mg tablet 5 mg PO DAILY aspirin 81 mg tablet,delayed release (DR/EC) 81 mg PO DAILY isosorbide mononitrate 30 mg tablet extended release 24 hr 30 mg PO QAM levofloxacin 500 mg tablet 500 mg PO DAILY 10 Days Qty: 10 0RF melatonin 10 mg tablet 10 mg PO BEDTIME PRN
[2022-04-26 05:34] LABS: Appearance Urine Clear; Color Urine Yellow; Glucose Urine UA Negative (Negative); Leukocyte Esterase Urine Large (3+) (Negative); Nitrite Urine Negative (Negative); PH 5.5 (5.0-9.0); UMIC TRIGGER UACC YES; Urine Blood Small (1+) (Negative); Urine Ketones Negative (Negative); Urine Protein Negative (Neg-Trace)
[2022-04-26 05:48] LABS: Bacteria Urine None Seen (None Seen); Hyaline Casts Urine 0-2 /LPF (0-2); RBC Urine 0-2 /HPF (0-2); Squamous Epithelial Cell Urine 0-2 /HPF (0-2); UACC Culture Trigger YES; WBC Urine >50 /HPF (0-5)
[2022-04-26] MEDS: Phenazopyridine HCL 200 MG TABLET PO (06:12)
[2022-04-26 06:29] VITALS: BP 128/53; PULSE 74; TEMP 36.7; O2SAT 97
== END 2022-04-26 07:13 | disposition home or self-care (01) ==
PROVIDERS: Emergency Provider Internal Medicine; PCP Internal Medicine
DX: N39.0 Urinary tract infection, site not specified (principal); R33.9 Retention of urine, unspecified; E11.9 Type 2 diabetes mellitus without complications; I10 Essential (primary) hypertension; E78.5 Hyperlipidemia, unspecified; Z79.02 Long term (current) use of antithrombotics/antiplatelets; Z79.82 Long term (current) use of aspirin; Z79.899 Other long term (current) drug therapy
CPT/HCPCS: 51798; 81001; 87086; 99284

== ENCOUNTER → 2022-05-27 14:35 | Outpatient (BNVA) | payer OTHER, SELFPAY | PROVIDERS: PCP Internal Medicine; Visit Provider Hospitalist | DX: J41.8 Mixed simple and mucopurulent chronic bronchitis (principal); J31.0 Chronic rhinitis; J18.0 Bronchopneumonia, unspecified organism; K21.9 Gastro-esophageal reflux disease without esophagitis; D80.1 Nonfamilial hypogammaglobulinemia; Z79.899 Other long term (current) drug therapy | CPT/HCPCS: 99212 ==

== ENCOUNTER 2022-06-30 14:21 | Emergency (ER) | payer OTHER, SELFPAY ==
--- NOTE | ~2022-06-30 | CT_ITS ---
EXAMINATION: CT ANGIOGRAM OF THE CHEST WITH AND WITHOUT CONTRAST (CT PULMONARY ANGIOGRAM FOR PE) CLINICAL INFORMATION: Reason for Exam + dimer, sob COMPARISON: CT chest 04/29/2018 TECHNIQUE: Prior to contrast administration, noncontrast localization images were obtained. Subsequently, multidetector volumetric imaging was performed from the thoracic inlet to below the diaphragms following the administration of 80 mL Omnipaque 350 intravenous contrast. No contrast reaction reported Sagittal, coronal, and MIP oblique sagittal reformatted images were obtained on the CT workstation, uploaded to PACS, and reviewed. This CT examination was performed using dose optimization techniques as appropriate, variously including the following: *Automated exposure control *Adjustment of mA and/or kV according to patient size (this includes techniques or standardized protocols for targeted exams where dose is matched to indication/reason for exam; i.e. extremities or head) *Use of iterative reconstruction technique Total exam dose-length product 339 mGy-cm FINDINGS: QUALITY OF STUDY/CONTRAST BOLUS: Satisfactory. PULMONARY ARTERIES: No central or segmental pulmonary emboli. THORACIC AORTA: No aneurysm or dissection. LUNG: The lungs are well-expanded with mild groundglass attenuation seen in both upper lobes but no focal consolidation, nodule or mass seen. PLEURA: No pleural effusion or pneumothorax. MEDIASTINUM: Normal heart size. No pericardial effusion. No hilar or mediastinal lymphadenopathy. No evidence of septal bowing or right heart strain. CORONARY ARTERY CALCIFICATION: None visualized on this study. CHEST WALL/AXILLA: No axillary or internal mammary lymphadenopathy. OSSEOUS STRUCTURES: There are bilateral shoulder degenerative changes. No aggressive lytic or sclerotic process seen. There is mild spondylosis dorsal spine.: UPPER ABDOMEN: Unremarkable. No reflux of contrast into the hepatic veins to suggest elevated right heart pressures. CT/CT angio chest PE protocol IMPRESSION: 1. No evidence of PE. 2. No evidence of aortic dissection or aneurysm. 3. Mild groundglass attenuation seen in both upper lobes 4. No major change compared to previous study 04/29/2018. VTE: negative
--- NOTE | ~2022-06-30 | XR_ITS ---
EXAMINATION: XR CHEST CLINICAL INFORMATION: Shortness of breath COMPARISON: Chest x-ray 03/10/2022 TECHNIQUE: 2 views of the chest were obtained. FINDINGS: Lungs are clear. No pulmonary vascular congestion. There is no pleural effusion. The heart size is normal. The cardiac and mediastinal contours are normal. There are calcifications of the thoracic aorta. There are multilevel degenerative changes of dorsal spine. 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 XR/XR chest 2V IMPRESSION: Unremarkable examination.
[2022-06-30 14:24] VITALS: BP 182/76; PULSE 118; RESP 20; TEMP 36.6; O2SAT 97; BMI 35.2
--- NOTE | 2022-06-30 14:25 | ED.SOB ---
HPI - SOB/Dyspnea General Chief Complaint: Dyspnea <Dalia Ovalle NP - Last Filed: 07/01/22 11:08> Stated Complaint: diff breathing <Dalia Ovalle NP - Last Filed: 07/01/22 11:08> Time Seen by Provider: 06/30/22 16:12 <Dalia Ovalle NP - Last Filed: 07/01/22 11:08> Source: patient <JESSICA Shine - Last Filed: 06/30/22 21:11> Mode of arrival: ambulatory <JESSICA Shine - Last Filed: 06/30/22 21:11> Limitations: no limitations <JESSICA Shine Last Filed: 06/30/22 21:11> History of Present Illness HPI Narrative: This is a 76-year-old female history of asthma, hypertension, hyperlipidemia, hypogammaglobulinemia, diabetes, COPD 2L at home, bronchopneumonia presenting to the emergency department complaints of shortness of breath, headache, chest discomfort x2 days. Patient tells me this all started with a runny nose, she tells me she is feeling short of breath at rest and with exertion, she has been taking Mucinex in her inhaler with little to no relief. Headache is diffuse in nature, feels like typical, no trauma. She tells me her chest feels tight however denies pain. Patient denies any sick contacts, fevers, chills, nausea, vomiting, vision changes, dizziness, weakness, abdominal pain. Not on blood thinners <JESSICA Shine - Last Filed: 06/30/22 21:11> Related Data Home Medications: Home Medications Medication Instructions Recorded Confirmed atorvastatin 80 mg tablet 80 mg PO DAILY 03/21/20 11/18/21 cetirizine 10 mg tablet 10 mg PO DAILY 03/21/20 11/18/21 dexlansoprazole 60 mg 60 mg PO DAILY 03/21/20 11/18/21 capsule,biphase delayed release nitroglycerin 0.4 mg sublingual 0 mg sublingual 03/21/20 11/18/21 tablet albuterol sulfate 2.5 mg/3 mL mg inhalation Q4H PRN wheezing 04/28/20 11/18/21 (0.083 %) solution for nebulization melatonin 10 mg tablet 10 mg PO BEDTIME PRN 08/19/21 11/18/21 metoprolol succinate 50 mg 50 mg PO DAILY 08/19/21 11/18/21 tablet,extended release 24 hr amlodipine 5 mg tablet 5 mg PO DAILY 09/02/21 11/18/21 aspirin 81 mg tablet,delayed 81 mg PO DAILY 09/02/21 11/18/21 release isosorbide mononitrate 30 mg 30 mg PO QAM 09/02/21 11/18/21 tablet,extended release 24 hr nitrofurantoin macrocrystal 50 mg 50 mg PO DAILY 05/27/22 capsule Previous Rx's Medication Instructions Recorded cholecalciferol (vitamin D3) 50 50 mcg PO DAILY 30 days #30 caps 04/08/20 mcg (2,000 unit) capsule azelastine 137 mcg (0.1 %) nasal 2 spray intranasal BID #90 mL 04/28/20 spray aerosol levofloxacin 500 mg tablet 500 mg PO DAILY 10 days #10 tabs 03/10/22 meclizine 25 mg tablet 25 mg PO BID PRN dizziness #14 tabs 04/02/22 nitrofurantoin 100 mg PO BID #14 caps 04/02/22 monohydrate/macrocrystals 100 mg capsule (Macrobid) Trelegy Ellipta 100 mcg-62.5 1 ea PO DAILY #60 ea 04/13/22 mcg-25 mcg powder for inhalation ([id number]-[id number]) albuterol sulfate 90 mcg/actuation 2 puff PO Q4H PRN for wheezing 04/19/22 aerosol inhaler #8.5 ea cefuroxime axetil 250 mg tablet 250 mg PO BID 7 days #14 tabs 04/26/22 phenazopyridine 200 mg tablet 200 mg PO TID 2 days #6 tabs 04/26/22 (Pyridium) oseltamivir 75 mg capsule (Tamiflu) 75 mg PO BID 5 days #10 caps 05/27/22 prednisone 20 mg tablet See Rx Instructions PO DAILY 10 05/27/22 days #15 tabs nirmatrelvir 300 mg (150 mg See Rx Instructions PO .COMPLEX 5 05/28/22 x2)-ritonavir 100 mg tablet,dose days #30 ea pack(EUA) (Paxlovid) albuterol sulfate 90 mcg/actuation 2 inh inhalation Q4-6H PRN 06/30/22 breath activated powder inhaler shortness of breath or wheezing #1 ea prednisone 20 mg tablet 40 mg PO DAILY 5 days #10 tabs 06/30/22 <Dalia Ovalle NP - Last Filed: 07/01/22 11:08> Allergies/Adverse Reactions: Allergies Allergy/AdvReac Type Severity Reaction Status Date / Time amoxicillin [Augmentin] Allergy Mild Rash Verified 05/27/22 14:43 clavulanic acid Allergy Mild RASH Verified 05/27/22 14:43 [From Augmentin] <Dalia Ovalle NP - Last Filed: 07/01/22 11:08> Review of Systems Review of Systems: Constitutional : No Weight loss, No Fever, No Chills, + Fatigue, + Malaise ENT/Mouth : No sore throat, No Rhinorrhea Eyes: No Eye Pain, No Swelling, No Redness Cardiovascular : + Chest Pain, + SOB, No Dyspnea on Exertion, No Orthopnea, No Edema, No Palpitations Respiratory : No Cough, No Sputum, No Wheezing Gastrointestinal : No Nausea, No Vomiting, No Diarrhea, No Constipation, No abdominal Pain, No Hematochezia, No Melena Genitourinary : No Dysuria, No Urinary Frequency, No Hematuria, Musculoskeletal : No joint pain, No Myalgias, No Joint Swelling Skin : No Skin Lesions, No rash Neuro : No Weakness, No Numbness, No Dizziness, + Headache Psych : No Anxiety/Panic, No Depression All other systems reviewed and are negative <JESSICA Shine - Last Filed: 06/30/22 21:11> Yes all other systems are reviewed and are negative <JESSICA Shine - Last Filed: 06/30/22 21:11> PMFSH Past Medical History Attestation statement: The following information was validated with the patient. <JESSICA Shine - Last Filed: 06/30/22 21:11> Source: old records reviewed and nursing notes reviewed <JESSICA Shine Last Filed: 06/30/22 21:11> Medical History: Medical History Bronchopneumonia Chronic rhinitis COPD (chronic obstructive pulmonary disease) Diabetes Dizziness Headache HTN (hypertension) Hyperlipidemia Hypogammaglobulinemia <Dalia Ovalle NP - Last Filed: 07/01/22 11:08> Surgical History: Surgical History H/O colonoscopy History of bunionectomy History of foot surgery History of toe surgery S/P right coronary artery (RCA) stent placement <Dalia Ovalle NP - Last Filed: 07/01/22 11:08> Family History Family History: Family History Mother No problems noted. Father No problems noted. <Dalia Ovalle NP - Last Filed: 07/01/22 11:08> Social History Social History: Social History Alcohol intake: never Patient Tobacco Use Status: Former Tobacco user Tobacco use type: Cigarette Advance Directives: No Advance Directives Information Provided: No <Dalia Ovalle NP - Last Filed: 07/01/22 11:08> Physical Exam Vital Signs: Vital Signs: Last Vital Signs Temp 98.3 F 06/30/22 16:00 Pulse 75 06/30/22 16:00 Resp 18 06/30/22 20:49 BP 144/68 H 06/30/22 16:00 Pulse Ox 91 L 06/30/22 20:49 O2 Del Method 06/30/22 20:49 BMI result Body Mass Index 35.2 <Dalia Ovalle NP - Last Filed: 07/01/22 11:08> Vital Signs: Last Vital Signs Temp 98.3 F 06/30/22 16:00 Pulse 75 06/30/22 16:00 Resp 18 06/30/22 20:49 BP 144/68 H 06/30/22 16:00 Pulse Ox 91 L 06/30/22 20:49 O2 Del Method 06/30/22 20:49 BMI result Body Mass Index 35.2 vss <JESSICA Shine - Last Filed: 06/30/22 21:11> Appearance: Alert.? Oriented X3.? No acute distress.? Head: Normocephalic, atraumatic, no step-offs or deformities Eyes: Pupils equal, round and reactive to light.? ENT: Pharynx normal.? Neck: Normal inspection.? Neck supple.? CVS: Normal heart rate and rhythm.? Pulses normal.? Respiratory: No respiratory distress.? Breath sounds normal.? Abdomen: Soft and nontender.? Skin: Skin warm and dry.? Normal skin color.? Normal skin turgor.? Extremities: No lower extremity edema.? No calf ttp, negative loren b/l. 5/5 strength to bilateral upper and lower extremities Neuro: Oriented X 3.? No motor deficit.? No sensory deficit. CN 2-12 intact. Ambulating with steady gait normal coordination. Normal [id number]-[id number], btzr-[id number]. <JESSICA Shine - Last Filed: 06/30/22 21:11> Course Course Course Narrative: This is a rapid medical exam. Defer additional HPI, ROS, PE to primary provider. Patient with past medical history of COPD here with shortness of breath, headache, sneezing for several days. No cough, fever, chest pain. Vital signs stable. Will obtain EKG, labs, chest x-ray, testing for flu, covid, rsv <Dalia Ovalle NP - Last Filed: 07/01/22 11:08> Reevaluation(s) Reevaluation #1: Patient's CBC with a baseline normocytic anemia. Chemistry with no acute electrolyte abnormalities requiring intervention. Troponin negative, EKG nonischemic unlikely ACS. BNP 122 however no signs of fluid overload on exam or on chest x-ray. Patient's chest x-ray was unremarkable. She did have a positive D-dimer therefore a CTA was obtained, CTA with no evidence of PE, no evidence of dissection or aneurysm. Mild ground-glass attenuation seen in both upper lobes likely secondary to viral infection. No major changes when compared to previous study which was done on 04/29/2018. VT negative. Patient feels well, so stable vital signs. Will given albuterol treatment and obtain an ambulatory O2.. <JESSICA Shine - Last Filed: 06/30/22 21:11> Time: 20:12 <JESSICA Shine - Last Filed: 06/30/22 21:11> Reevaluation #2: Ambulatory 91-94% on RA patient wears 2L at home. Patient will be discharged home. Educated patient on diagnosis and treatment plan, answered all question, patient verbalizes understanding. At this time patient will be discharged home, advised to return with new or worsening symptoms. Educated on worrisome signs and symptoms and when to return. At this time I feel comfortable discharge home. <JESSICA Shine - Last Filed: 06/30/22 21:11> Time: 21: <JESSICA Shine - Last Filed: 06/30/22 21:11> Medications Administered Discontinued Medications Generic Name Dose Route Start Last Admin Trade Name Freq PRN Reason Stop Dose Admin Albuterol Sulfate 5 mg/ 7.5 mg 06/30/22 20:08 06/30/22 20:22 Albuterol Sulfate 2.5 mg INHALE 06/30/22 20:09 7.5 mg ONCE ONE Administration Iohexol 100 ml 06/30/22 19:16 06/30/22 19:16 Iohexol 350 Mg/Ml 100 Ml Infus..Btl IV 06/30/22 19:17 65 ml ONCE ONE Administration <Dalia Ovalle NP - Last Filed: 07/01/22 11:08> Medications Administered Discontinued Medications Generic Name Dose Route Start Last Admin Trade Name Freq PRN Reason Stop Dose Admin Albuterol Sulfate 5 mg/ 7.5 mg 06/30/22 20:08 06/30/22 20:22 Albuterol Sulfate 2.5 mg INHALE 06/30/22 20:09 7.5 mg ONCE ONE Administration Iohexol 100 ml 06/30/22 19:16 06/30/22 19:16 Iohexol 350 Mg/Ml 100 Ml Infus..Btl IV 06/30/22 19:17 65 ml ONCE ONE Administration <JESSICA Shine - Last Filed: 06/30/22 21:11> Medical Decision Making Medical Decision Making [facility] Narrative: 1620 76-year-old female presents with shortness of breath, chest discomfort, headache which feels like typical x2 days Physical examination benign Likely viral. Unlikely ACS, PE, pneumonia however will rule out. Plan at this time basic labs, imaging, viral panel <JESSICA Shine - Last Filed: 06/30/22 21:11> Differential Diagnosis Differential Diagnoses: The differential diagnosis associated with the presentation includes <JESSICA Shine - Last Filed: 06/30/22 21:11> Likely viral. Unlikely ACS, PE, pneumonia however will rule out. <JESSICA Shine - Last Filed: 06/30/22 21:11> Admission/Observation Consideration of admission/observation: Escalation of care including admission/observation considered <JESSICA Shine - Last Filed: 06/30/22 21:11> unlikley <JESSICA Shine - Last Filed: 06/30/22 21:11> Lab Data MDM Lab Attestation statement: I reviewed the patient's lab results. <JESSICA Shine - Last Filed: 06/30/22 21:11> Result Diagrams: 06/30/22 15:03 06/30/22 15:03 <Dalia Ovalle NP - Last Filed: 07/01/22 11:08> Labs: Lab Results 06/30/22 06/30/22 06/30/22 Range/Units 15:03 15:03 15:03 WBC 6.3 (4.8-10.8) X10*3/uL RBC 3.68 L (4.20-5.50) X10*6/uL Hgb 11.1 L (12.0-16.0) g/dl Hct 32.8 L (37.0-47.0) % MCV 89.1 (80.0-98.0) fL MCH 30.2 (27.0-33.0) pg MCHC 33.8 (31.0-35.0) g/dl RDW 15.6 (11.0-16.0) % Plt Count 267 (160-400) X10*3/uL MPV 10.5 (9.4-12.3) fL Immature Gran % (Auto) 0.8 H (0.0-0.4) % Neut % (Auto) 86.2 H (45-73) % Lymph % (Auto) 9.8 L (20-40) % [place] % (Auto) 2.7 (2-11) % Eos % (Auto) 0.3 (0-4) % Baso % (Auto) 0.2 (0-2) % Lymph # (Auto) 0.6 L (1.2-4.9) X10*3/uL [place] # (Auto) 0.2 (0.1-1.2) X10*3/uL Eos # (Auto) 0.0 (0.0-0.4) X10*3/uL Baso # (Auto) 0.0 (0.0-0.2) X10*3/uL Abs Immat Gran (auto) 0.05 H (0.00-0.03) X10*3/uL Absolute Neuts (auto) 5.4 (2.0-8.3) x10*3/uL Absolute Nucleated RBC 0.000 (0.0-0.012) X10*3/uL Nucleated RBC % (auto) 0.0 (0.0-0.2) /100WBC D-Dimer High Sensitivty NG/ML Sodium 141 (135-145) mmol/L Potassium 4.0 (3.3-5.1) mmol/L Chloride 107 (96-108) mmol/L Carbon Dioxide 22 (22-29) mmol/L Anion Gap 16 (12-20) BUN 9 (9-16) mg/dL Creatinine 1.01 (0.5-1.4) mg/dL Estim Creat Clear Calc 51.5 Estimated GFR 53 Random Glucose 204 H (60-115) mg/dL Calcium 9.2 (8.4-10.2) mg/dL Total Bilirubin 0.6 (0.0-1.0) mg/dL Direct Bilirubin 0.2 (0.0-0.5) mg/dL AST 13 (5-31) U/L ALT 10 (0-31) U/L Alkaline Phosphatase 107 (39-117) U/L Troponin I High Sens (<3.5-17.0) ng/L B-Natriuretic Peptide (<100) pg/mL Total Protein 6.7 (6.5-8.0) g/dL Albumin 4.2 (3.5-5.0) g/dL Influenza Type A (PCR) NEGATIVE (Negative) Influenza Type B (PCR) NEGATIVE (Negative) RSV RNA Qual (PCR) NEGATIVE (Negative) SARS-CoV-2 RNA (RT-PCR) NEGATIVE (Negative) 06/30/22 06/30/22 06/30/22 Range/Units 17:04 17:04 17:04 WBC (4.8-10.8) X10*3/uL RBC (4.20-5.50) X10*6/uL Hgb (12.0-16.0) g/dl Hct (37.0-47.0) % MCV (80.0-98.0) fL MCH (27.0-33.0) pg MCHC (31.0-35.0) g/dl RDW (11.0-16.0) % Plt Count (160-400) X10*3/uL MPV (9.4-12.3) fL Immature Gran % (Auto) (0.0-0.4) % Neut % (Auto) (45-73) % Lymph % (Auto) (20-40) % [place] % (Auto) (2-11) % Eos % (Auto) (0-4) % Baso % (Auto) (0-2) % Lymph # (Auto) (1.2-4.9) X10*3/uL [place] # (Auto) (0.1-1.2) X10*3/uL Eos # (Auto) (0.0-0.4) X10*3/uL Baso # (Auto) (0.0-0.2) X10*3/uL Abs Immat Gran (auto) (0.00-0.03) X10*3/uL Absolute Neuts (auto) (2.0-8.3) x10*3/uL Absolute Nucleated RBC (0.0-0.012) X10*3/uL Nucleated RBC % (auto) (0.0-0.2) /100WBC D-Dimer High Sensitivty 388 NG/ML Sodium (135-145) mmol/L Potassium (3.3-5.1) mmol/L Chloride (96-108) mmol/L Carbon Dioxide (22-29) mmol/L Anion Gap (12-20) BUN (9-16) mg/dL Creatinine (0.5-1.4) mg/dL Estim Creat Clear Calc Estimated GFR Random Glucose (60-115) mg/dL Calcium (8.4-10.2) mg/dL Total Bilirubin (0.0-1.0) mg/dL Direct Bilirubin (0.0-0.5) mg/dL AST (5-31) U/L ALT (0-31) U/L Alkaline Phosphatase (39-117) U/L Troponin I High Sens < 3.5 (<3.5-17.0) ng/L B-Natriuretic Peptide 122 H (<100) pg/mL Total Protein (6.5-8.0) g/dL Albumin (3.5-5.0) g/dL Influenza Type A (PCR) (Negative) Influenza Type B (PCR) (Negative) RSV RNA Qual (PCR) (Negative) SARS-CoV-2 RNA (RT-PCR) (Negative) <Dalia Ovalle, IRMA - Last Filed: 07/01/22 11:08> Lab Results 06/30/22 06/30/22 06/30/22 Range/Units 15:03 15:03 15:03 WBC 6.3 (4.8-10.8) X10*3/uL RBC 3.68 L (4.20-5.50) X10*6/uL Hgb 11.1 L (12.0-16.0) g/dl Hct 32.8 L (37.0-47.0) % MCV 89.1 (80.0-98.0) fL MCH 30.2 (27.0-33.0) pg MCHC 33.8 (31.0-35.0) g/dl RDW 15.6 (11.0-16.0) % Plt Count 267 (160-400) X10*3/uL MPV 10.5 (9.4-12.3) fL Immature Gran % (Auto) 0.8 H (0.0-0.4) % Neut % (Auto) 86.2 H (45-73) % Lymph % (Auto) 9.8 L (20-40) % [place] % (Auto) 2.7 (2-11) % Eos % (Auto) 0.3 (0-4) % Baso % (Auto) 0.2 (0-2) % Lymph # (Auto) 0.6 L (1.2-4.9) X10*3/uL [place] # (Auto) 0.2 (0.1-1.2) X10*3/uL Eos # (Auto) 0.0 (0.0-0.4) X10*3/uL Baso # (Auto) 0.0 (0.0-0.2) X10*3/uL Abs Immat Gran (auto) 0.05 H (0.00-0.03) X10*3/uL Absolute Neuts (auto) 5.4 (2.0-8.3) x10*3/uL Absolute Nucleated RBC 0.000 (0.0-0.012) X10*3/uL Nucleated RBC % (auto) 0.0 (0.0-0.2) /100WBC D-Dimer High Sensitivty NG/ML Sodium 141 (135-145) mmol/L Potassium 4.0 (3.3-5.1) mmol/L Chloride 107 (96-108) mmol/L Carbon Dioxide 22 (22-29) mmol/L Anion Gap 16 (12-20) BUN 9 (9-16) mg/dL Creatinine 1.01 (0.5-1.4) mg/dL Estim Creat Clear Calc 51.5 Estimated GFR 53 Random Glucose 204 H (60-115) mg/dL Calcium 9.2 (8.4-10.2) mg/dL Total Bilirubin 0.6 (0.0-1.0) mg/dL Direct Bilirubin 0.2 (0.0-0.5) mg/dL AST 13 (5-31) U/L ALT 10 (0-31) U/L Alkaline Phosphatase 107 (39-117) U/L Troponin I High Sens (<3.5-17.0) ng/L B-Natriuretic Peptide (<100) pg/mL Total Protein 6.7 (6.5-8.0) g/dL Albumin 4.2 (3.5-5.0) g/dL Influenza Type A (PCR) NEGATIVE (Negative) Influenza Type B (PCR) NEGATIVE (Negative) RSV RNA Qual (PCR) NEGATIVE (Negative) SARS-CoV-2 RNA (RT-PCR) NEGATIVE (Negative) 01/12/23 01/12/23 01/12/23 Range/Units 17:04 17:04 17:04 WBC (4.8-10.8) X10*3/uL RBC (4.20-5.50) X10*6/uL Hgb (12.0-16.0) g/dl Hct (37.0-47.0) % MCV (80.0-98.0) fL MCH (27.0-33.0) pg MCHC (31.0-35.0) g/dl RDW (11.0-16.0) % Plt Count (160-400) X10*3/uL MPV (9.4-12.3) fL Immature Gran % (Auto) (0.0-0.4) % Neut % (Auto) (45-73) % Lymph % (Auto) (20-40) % [place] % (Auto) (2-11) % Eos % (Auto) (0-4) % Baso % (Auto) (0-2) % Lymph # (Auto) (1.2-4.9) X10*3/uL [place] # (Auto) (0.1-1.2) X10*3/uL Eos # (Auto) (0.0-0.4) X10*3/uL Baso # (Auto) (0.0-0.2) X10*3/uL Abs Immat Gran (auto) (0.00-0.03) X10*3/uL Absolute Neuts (auto) (2.0-8.3) x10*3/uL Absolute Nucleated RBC (0.0-0.012) X10*3/uL Nucleated RBC % (auto) (0.0-0.2) /100WBC D-Dimer High Sensitivty 388 NG/ML Sodium (135-145) mmol/L Potassium (3.3-5.1) mmol/L Chloride (96-108) mmol/L Carbon Dioxide (22-29) mmol/L Anion Gap (12-20) BUN (9-16) mg/dL Creatinine (0.5-1.4) mg/dL Estim Creat Clear Calc Estimated GFR Random Glucose (60-115) mg/dL Calcium (8.4-10.2) mg/dL Total Bilirubin (0.0-1.0) mg/dL Direct Bilirubin (0.0-0.5) mg/dL AST (5-31) U/L ALT (0-31) U/L Alkaline Phosphatase (39-117) U/L Troponin I High Sens < 3.5 (<3.5-17.0) ng/L B-Natriuretic Peptide 122 H (<100) pg/mL Total Protein (6.5-8.0) g/dL Albumin (3.5-5.0) g/dL Influenza Type A (PCR) (Negative) Influenza Type B (PCR) (Negative) RSV RNA Qual (PCR) (Negative) SARS-CoV-2 RNA (RT-PCR) (Negative) <JESSICA Shine - Last Filed: 06/30/22 21:11> Independent Interpretation I performed an independent interpretation of an: Plain X-Ray (XR/XR chest 2V IMPRESSION: Unremarkable examination. ) <JESSICA Shine - Last Filed: 06/30/22 21:11> Radiology Impression Discussion of test interpretation with radiology: I have reviewed the radiologist's reading. <JESSICA Shine - Last Filed: 06/30/22 21:11> Core Measures AMI core measures followed: Yes <JESSICA Shine - Last Filed: 06/30/22 21:11> Measure exclusions: not indicated <JESSICA Shine - Last Filed: 06/30/22 21:11> Discharge Plan Discharge Clinical Impression: Viral infection, Shortness of breath <Dalia Ovalle NP - Last Filed: 07/01/22 11:08> Patient Disposition: Home, Self-Care <Dalia Ovalle NP - Last Filed: 07/01/22 11:08> Instructions: Viral Syndrome (ED), Shortness of Breath (ED) <Dalia Ovalle NP - Last Filed: 07/01/22 11:08> Additional Instructions: Take your medications as prescribed. If you were prescribed antibiotics today, it is important that you take your medication to their entirety, do not skip any doses, do not finish them early. Follow-up with your primary care provider this week. Follow up with pulmonology Return to the emergency department with new or worsening symptoms. Such as fevers, chills, chest pain, shortness of breath, nausea, vomiting, dizziness, headache, vision changes, lethargy In case of emergency call 911 You tested negative for flu, COVID, RSV. Your cardiac enzyme and EKG looked normal. Your chest CTA did not show any evidence of blood clot. CT/CT angio chest PE protocol IMPRESSION: 1.? No evidence of PE. 2.? No evidence of aortic dissection or aneurysm. 3.? Mild groundglass attenuation seen in both upper lobes 4.? No major change compared to previous study 04/29/2018. VTE: negative <Dalia Ovalle NP - Last Filed: 07/01/22 11:08> Prescriptions: New albuterol sulfate 90 mcg/actuation aerosol powdr breath activated 2 inh inhalation Q4-6H PRN (Reason: shortness of breath or wheezing) Qty: 1 0RF prednisone 20 mg tablet 40 mg PO DAILY 5 Days Qty: 10 0RF No Action cholecalciferol (vitamin D3) 50 mcg (2,000 unit) capsule 50 mcg PO DAILY 30 Days Qty: 30 3RF azelastine 137 mcg (0.1 %) aerosol,spray 2 spray intranasal BID Qty: 90 3RF Trelegy Ellipta 100-62.5-25 mcg blister with device 1 ea PO DAILY Qty: 60 11RF albuterol sulfate 90 mcg/actuation HFA aerosol inhaler 2 puff PO Q4H PRN (Reason: for wheezing) Qty: 8.5 3RF Paxlovid (EUA) 300 mg (150 mg x 2)-100 mg tablets,dose pack See Rx Instructions PO .COMPLEX 5 Days Qty: 30 0RF Rx Instructions: take TWO 150 mg tablets of nirmatrelvir with ONE 100 mg tablet of ritonavir twice daily for 5 days PO cefuroxime axetil 250 mg tablet 250 mg PO BID 7 Days Qty: 14 0RF phenazopyridine [Pyridium] 200 mg tablet 200 mg PO TID 2 Days Qty: 6 0RF nitrofurantoin monohyd/m-cryst [Macrobid] 100 mg capsule 100 mg PO BID Qty: 14 0RF Rx Instructions: must administer with a meal/food meclizine 25 mg tablet 25 mg PO BID PRN (Reason: dizziness) Qty: 14 0RF albuterol sulfate 2.5 mg /3 mL (0.083 %) solution for nebulization inhalation Q4H PRN (Reason: wheezing) nitroglycerin 0.4 mg tablet, sublingual 0 mg sublingual Dexilant 60 mg capsule,biphase delayed releas 60 mg PO DAILY cetirizine 10 mg tablet 10 mg PO DAILY atorvastatin 80 mg tablet 80 mg PO DAILY metoprolol succinate 50 mg tablet extended release 24 hr 50 mg PO DAILY amlodipine 5 mg tablet 5 mg PO DAILY aspirin 81 mg tablet,delayed release (DR/EC) 81 mg PO DAILY isosorbide mononitrate 30 mg tablet extended release 24 hr 30 mg PO QAM levofloxacin 500 mg tablet 500 mg PO DAILY 10 Days Qty: 10 0RF melatonin 10 mg tablet 10 mg PO BEDTIME PRN nitrofurantoin macrocrystal 50 mg capsule 50 mg PO DAILY oseltamivir [Tamiflu] 75 mg capsule 75 mg PO BID 5 Days Qty: 10 0RF prednisone 20 mg tablet See Rx Instructions PO DAILY 10 Days Qty: 15 0RF Rx Instructions: PO daily; Take 2 tabs daily x 5 days, then 1 tablet daily x 5 days <Dalia Ovalle NP - Last Filed: 07/01/22 11:08> Referrals: Kathy Christopher MD [Primary Care Provider] - 2 days <Dalia Ovalle NP - Last Filed: 07/01/22 11:08> Interventions: ED Discharge Assessment Last Done: 06/30/22 21:06 <Dalia Ovalle NP - Last Filed: 07/01/22 11:08> Discharge Date/Time: 06/30/22 21:06 <Dalia Ovalle NP - Last Filed: 07/01/22 11:08>
--- NOTE | 2022-06-30 14:26 | ECG_ITS ---
Test Reason : DIFFICULTY BREATHING Blood Pressure : / mmHG Vent. Rate : 099 BPM Atrial Rate : 099 BPM P-R Int : 144 ms QRS Dur : 076 ms QT Int : 358 ms P-R-T Axes : 061 037 043 degrees QTc Int : 459 ms Normal sinus rhythm Normal ECG When compared with ECG of 25-MAR-2020 13:39, No significant change was found Referred By: Dalia Ovalle Electronically Signed By:Akbar Day
[2022-06-30 15:08] LABS: MANUAL DIFF FLAG NO
[2022-06-30 15:10] LABS: Basophils Percent Auto 0.2 % (0-2); Eosinophils Percent Auto 0.3 % (0-4); Hematocrit 32.8 % (37.0-47.0); Hemoglobin 11.1 g/dl (12.0-16.0); Imm Gran Abs Auto 0.05 X10*3/uL (0.00-0.03); Imm Gran Pct Auto 0.8 % (0.0-0.4); Lymphocytes Absolute Auto 0.6 X10*3/uL (1.2-4.9); Lymphocytes Percent Auto 9.8 % (20-40); Mean Corpuscular HGB Conc 33.8 g/dl (31.0-35.0); Mean Corpuscular Hemoglobin 30.2 pg (27.0-33.0); Mean Corpuscular Volume 89.1 fL (80.0-98.0); Mean Platelet Volume 10.5 fL (9.4-12.3); Monocytes Absolute Auto 0.2 X10*3/uL (0.1-1.2); Monocytes Percent Auto 2.7 % (2-11); Neutrophils Absolute Auto 5.4 x10*3/uL (2.0-8.3); Neutrophils Percent Auto 86.2 % (45-73); Platelet Count 267 X10*3/uL (160-400); Red Blood Count 3.68 X10*6/uL (4.20-5.50); Red Cell Distribution Width 15.6 % (11.0-16.0); White Blood Count 6.3 X10*3/uL (4.8-10.8)
[2022-06-30 15:38] LABS: Alanine Aminotransferase 10 U/L (0-31); Albumin Level 4.2 g/dL (3.5-5.0); Alkaline Phosphatase 107 U/L (39-117); Anion Gap 16 (12-20); Aspartate Amino Transferase 13 U/L (5-31); Bilirubin Direct 0.2 mg/dL (0.0-0.5); Bilirubin Total 0.6 mg/dL (0.0-1.0); Blood Urea Nitrogen 9 mg/dL (9-16); Calcium 9.2 mg/dL (8.4-10.2); Carbon Dioxide 22 mmol/L (22-29); Chloride 107 mmol/L (96-108); Creatinine Clr Calc Pharmacy 51.5; Estimated Glomerular Filt Rate 53; Glucose Random 204 mg/dL (60-115); Sodium 141 mmol/L (135-145); Total Protein 6.7 g/dL (6.5-8.0)
[2022-06-30 16:00] VITALS: BP 144/68; PULSE 75; RESP 18; TEMP 36.8; O2SAT 94
[2022-06-30 16:00] LABS: Influenza A PCR NEGATIVE (Negative); Influenza B PCR NEGATIVE (Negative); Resp Syncy Virus RNA Qual PCR NEGATIVE (Negative); SARS COV2 PCR INHOUSE NEGATIVE (Negative)
[2022-06-30 17:17] LABS: D Dimer High Sensitivity 388 NG/ML
[2022-06-30 17:35] LABS: B Type Natriuretic Peptide 122 pg/mL (<100); Troponin-I High Sensitivity < 3.5 ng/L (<3.5-17.0)
[2022-06-30] MEDS: iohexoL 350 MG/ML 100 ML INFUS..BTL IV (19:16)
[2022-06-30] MEDS: Albuterol Sulfate 5 MG, Albuterol Sulfate (0.083%) 2.5 MG 7.5 MG INHALE (20:22)
[2022-06-30 20:49] VITALS: RESP 18; O2SAT 91
--- NOTE | 2022-06-30 21:00 | PC.NURSE ---
Pt SpO2 at 91% on RA with ambulation. Pt denied any CP or SOB. Pt stated that she is normally on 2 lpm of O2 at home.
== END 2022-06-30 21:06 | disposition home or self-care (01) ==
PROVIDERS: Nurse Practitioner Family; Physician Assistant; Emergency Provider Internal Medicine; PCP Internal Medicine
DX: B34.9 Viral infection, unspecified (principal); R06.02 Shortness of breath; D64.9 Anemia, unspecified; I10 Essential (primary) hypertension; E78.5 Hyperlipidemia, unspecified; E11.9 Type 2 diabetes mellitus without complications; J44.9 Chronic obstructive pulmonary disease, unspecified; Z99.81 Dependence on supplemental oxygen; Z20.822 Contact with and (suspected) exposure to COVID-19; Z20.828 Contact with and (suspected) exposure to other viral communicable diseases; Z79.02 Long term (current) use of antithrombotics/antiplatelets; Z79.899 Other long term (current) drug therapy; Z79.82 Long term (current) use of aspirin
CPT/HCPCS: 0241U; 36415; 71046; 71275; 80048; 80076; 83880; 84484; 85025; 85379; 93005; 99284; 99285; Q9967

== ENCOUNTER 2022-07-15 12:50 | Outpatient (REF) | payer OTHER, SELFPAY ==
[2022-07-15 13:58] LABS: Basophils Percent Auto 0.2 % (0-2); Eosinophils Absolute Auto 0.4 X10*3/uL (0.0-0.4); Eosinophils Percent Auto 3.6 % (0-4); Hematocrit 36.1 % (37.0-47.0); Hemoglobin 11.7 g/dl (12.0-16.0); Imm Gran Abs Auto 0.05 X10*3/uL (0.00-0.03); Imm Gran Pct Auto 0.5 % (0.0-0.4); Lymphocytes Absolute Auto 1.9 X10*3/uL (1.2-4.9); Lymphocytes Percent Auto 18.3 % (20-40); MANUAL DIFF FLAG NO; Mean Corpuscular HGB Conc 32.4 g/dl (31.0-35.0); Mean Corpuscular Hemoglobin 29.6 pg (27.0-33.0); Mean Corpuscular Volume 91.4 fL (80.0-98.0); Mean Platelet Volume 10.7 fL (9.4-12.3); Monocytes Absolute Auto 1.3 X10*3/uL (0.1-1.2); Monocytes Percent Auto 12.5 % (2-11); Neutrophils Absolute Auto 6.9 x10*3/uL (2.0-8.3); Neutrophils Percent Auto 64.9 % (45-73); Platelet Count 303 X10*3/uL (160-400); Red Blood Count 3.95 X10*6/uL (4.20-5.50); Red Cell Distribution Width 16.2 % (11.0-16.0); White Blood Count 10.6 X10*3/uL (4.8-10.8)
[2022-07-15 14:37] LABS: Erythrocyte Sedimentation Rate 37 MM/HR (0-20)
[2022-07-18 12:14] LABS: Anti Nuclear Antibody Screen NEGATIVE (NEGATIVE)
[2022-07-18 17:03] LABS: Cyclic Citrullinated Peptide <16 UNITS
[2022-07-24 17:04] LABS: Asperg fumigatus Precip Abs NEGATIVE (NEGATIVE); Micropoly faeni Abs NEGATIVE (NEGATIVE); Pigeon serum Abs NEGATIVE (NEGATIVE); Saccharo pora viridis Abs NEGATIVE (NEGATIVE); Thermo candidus Abs NEGATIVE (NEGATIVE); Thermoa vulgaris #1 NEGATIVE (NEGATIVE)
== END 2022-07-15 12:51 | disposition home or self-care (01) ==
LOC: HO.LAB 12:50
PROVIDERS: PCP Internal Medicine; Visit Provider Hospitalist
DX: R91.8 Other nonspecific abnormal finding of lung field (principal); J41.8 Mixed simple and mucopurulent chronic bronchitis; J31.0 Chronic rhinitis; K21.9 Gastro-esophageal reflux disease without esophagitis; D80.1 Nonfamilial hypogammaglobulinemia; J18.9 Pneumonia, unspecified organism
CPT/HCPCS: 36415; 82785; 85025; 85652; 86003; 86038; 86039; 86200; 86331; 86606; 86609; 94618; 99212

== ENCOUNTER → 2022-08-11 14:29 | Outpatient (BNVA) | payer OTHER, SELFPAY | PROVIDERS: PCP Internal Medicine; Visit Provider Hospitalist | DX: J41.8 Mixed simple and mucopurulent chronic bronchitis (principal); J31.0 Chronic rhinitis; J18.9 Pneumonia, unspecified organism; K21.9 Gastro-esophageal reflux disease without esophagitis; D80.1 Nonfamilial hypogammaglobulinemia; Z79.899 Other long term (current) drug therapy | CPT/HCPCS: 99212 ==

== ENCOUNTER → 2022-08-23 14:49 | Outpatient (BNVA) | payer OTHER, SELFPAY | PROVIDERS: Visit Provider Obstetrics & Gynecology | DX: Z13.89 Encounter for screening for other disorder (principal) ==

== ENCOUNTER → 2022-09-16 12:45 | Outpatient (BNVA) | payer OTHER, SELFPAY | PROVIDERS: PCP Internal Medicine; Visit Provider Hospitalist | DX: J41.8 Mixed simple and mucopurulent chronic bronchitis (principal); J45.40 Moderate persistent asthma, uncomplicated; J31.0 Chronic rhinitis; K21.9 Gastro-esophageal reflux disease without esophagitis; D80.1 Nonfamilial hypogammaglobulinemia; Z87.891 Personal history of nicotine dependence | CPT/HCPCS: 99212 ==

== ENCOUNTER 2022-09-26 17:29 | Emergency (ER) | payer OTHER, SELFPAY ==
--- NOTE | ~2022-09-26 | XR_ITS ---
EXAMINATION: XR CHEST CLINICAL INFORMATION: Shortness of breath. Rule out pneumonia. COMPARISON: Previous chest x-ray most recent June 2022 TECHNIQUE: Frontal view of the chest was obtained. FINDINGS: The cardiac and mediastinal contours are stable. The lungs are clear. No pleural effusion or pneumothorax. Degenerative changes of the spine and shoulders. XR/XR chest 1V IMPRESSION: No evidence for acute disease in the chest.
[2022-09-26 17:57] VITALS: BP 133/56; PULSE 80; RESP 18; TEMP 36.8; O2SAT 92; BMI 30.9
--- NOTE | 2022-09-26 18:00 | ECG_ITS ---
Test Reason : SOB Blood Pressure : / mmHG Vent. Rate : 068 BPM Atrial Rate : 068 BPM P-R Int : 130 ms QRS Dur : 074 ms QT Int : 394 ms P-R-T Axes : 051 025 033 degrees QTc Int : 418 ms Normal sinus rhythm Normal ECG When compared with ECG of 30-JUN-2022 14:50, No significant change was found Referred By: Joel Fink Electronically Signed By:CHUCHO BALTAZAR MD
--- NOTE | 2022-09-26 18:02 | ED_ITS ---
HPI - General Adult General Chief complaint: Dyspnea <JESSICA Pacheco - Last Filed: 10/03/22 09:35> Stated complaint: sob hx of copd <JESSICA Pacheco - Last Filed: 10/03/22 09:35> Time Seen by Provider: 09/26/22 20:22 <JESSICA Pacheco - Last Filed: 10/03/22 09:35> Source: patient <Venecia Romero MD - Last Filed: 09/26/22 22:29> Mode of arrival: ambulatory <Venecia Romero MD - Last Filed: 09/26/22 22:29> History of Present Illness HPI narrative: 76-year-old female who states that over the past 2 days she has had increasing shortness of breath without associated fever, chills, chest pain/palpitations, GI symptoms. Patient states that she uses oxygen as needed at baseline and says that she has needed at more frequently than usual. However, patient did not bring the oxygen with her cough she also states that she has had a headache with body aches and stated that she had some dysuria. <Venecia Romero MD - Last Filed: 09/26/22 22:29> Related Data Home medications: Home Medications Medication Instructions Recorded Confirmed atorvastatin 80 mg tablet 80 mg PO DAILY 03/21/20 11/18/21 cetirizine 10 mg tablet 10 mg PO DAILY 03/21/20 11/18/21 dexlansoprazole 60 mg 60 mg PO DAILY 03/21/20 11/18/21 capsule,biphase delayed release nitroglycerin 0.4 mg sublingual 0 mg sublingual 03/21/20 11/18/21 tablet albuterol sulfate 2.5 mg/3 mL mg inhalation Q4H PRN wheezing 04/28/20 11/18/21 (0.083 %) solution for nebulization melatonin 10 mg tablet 10 mg PO BEDTIME PRN 08/19/21 11/18/21 metoprolol succinate 50 mg 50 mg PO DAILY 08/19/21 11/18/21 tablet,extended release 24 hr amlodipine 5 mg tablet 5 mg PO DAILY 09/02/21 11/18/21 aspirin 81 mg tablet,delayed 81 mg PO DAILY 09/02/21 11/18/21 release isosorbide mononitrate 30 mg 30 mg PO QAM 09/02/21 11/18/21 tablet,extended release 24 hr nitrofurantoin macrocrystal 50 mg 50 mg PO DAILY 05/27/22 capsule Oxygen Home Use 09/16/22 metoprolol tartrate 50 mg tablet 0 mg PO 09/16/22 nebulizers 09/16/22 plecanatide 3 mg tablet (Trulance) 3 mg PO DAILY 09/16/22 Previous Rx's Medication Instructions Recorded cholecalciferol (vitamin D3) 50 50 mcg PO DAILY 30 days #30 caps 04/08/20 mcg (2,000 unit) capsule meclizine 25 mg tablet 25 mg PO BID PRN dizziness #14 tabs 04/02/22 albuterol sulfate 90 mcg/actuation 2 puff PO Q4H PRN for wheezing 04/19/22 aerosol inhaler #8.5 ea azelastine 137 mcg (0.1 %) nasal 2 spray intranasal BID 30 days #30 08/11/22 spray aerosol mL fluticasone fur. 200 mcg-umeclid 1 inh inhalation DAILY 30 days #60 08/11/22 62.5 mcg-vilant 25 mcg ea inhalat.powder (Trelegy Ellipta) fluticasone propionate 50 2 spray intranasal DAILY 30 days 08/11/22 mcg/actuation nasal #15.8 mL spray,suspension montelukast 10 mg tablet 10 mg PO BEDTIME 30 days #30 tabs 09/16/22 (Singulair) furosemide 20 mg tablet (Lasix) 10 mg PO DAILY 14 days #7 tabs 09/26/22 <JESSICA Pacheco - Last Filed: 10/03/22 09:35> Allergies/adverse reactions: Allergies Allergy/AdvReac Type Severity Reaction Status Date / Time amoxicillin [Augmentin] Allergy Mild Rash Verified 09/16/22 12:56 clavulanic acid Allergy Mild RASH Verified 09/16/22 12:56 [From Augmentin] <JESSICA Pacheco - Last Filed: 10/03/22 09:35> Review of Systems 2 Review of Systems: Pertinent positives and negatives as stated in HPI <Venecia Romero MD - Last Filed: 09/26/22 22:29> [facility] Past Medical History Source: nursing notes reviewed <Venecia Romero MD - Last Filed: 09/26/22 22:29> Medical History: Medical History Bronchopneumonia Chronic rhinitis COPD (chronic obstructive pulmonary disease) Diabetes Dizziness Headache HTN (hypertension) Hyperlipidemia Hypogammaglobulinemia Pneumonitis <JESSICA Pacheco - Last Filed: 10/03/22 09:35> Surgical History: Surgical History H/O colonoscopy History of bunionectomy History of foot surgery History of toe surgery S/P right coronary artery (RCA) stent placement <JESSICA Pacheco - Last Filed: 10/03/22 09:35> Family History Family History: Family History Mother No problems noted. Father No problems noted. <JESSICA Pacheco - Last Filed: 10/03/22 09:35> Social History Social History: Social History Household Members: None Housing: Apartment Alcohol intake: never Patient Tobacco Use Status: Former Tobacco user Tobacco use type: Cigarette Smoked in Last 30 Days: No Use of substances other than those prescribed or required for medical reasons: No Advance Directives: No Advance Directives Information Provided: No service: No Current occupational status: retired Sexual orientation: Straight/Heterosexual Gender identity: Female <JESSICA Pacheco - Last Filed: 10/03/22 09:35> Physical Exam ED Vital Signs: Vital Signs - 24 hr 09/26/22 17:57 09/26/22 20:35 09/26/22 21:46 Temperature 98.3 F 98.2 F Pulse Rate 80 64 72 Respiratory Rate 18 18 12 Blood Pressure 133/56 L 146/68 H 144/69 H Pulse Oximetry 92 97 97 Oxygen Delivery Method Nasal Cannula Room Air Room Air BMI result Body Mass Index 30.9 <JESSICA Pacheco - Last Filed: 10/03/22 09:35> Vital Signs - 24 hr 09/26/22 17:57 09/26/22 20:35 09/26/22 21:46 Temperature 98.3 F 98.2 F Pulse Rate 80 64 72 Respiratory Rate 18 18 12 Blood Pressure 133/56 L 146/68 H 144/69 H Pulse Oximetry 92 97 97 Oxygen Delivery Method Nasal Cannula Room Air Room Air BMI result Body Mass Index 30.9 VITAL SIGNS: Reviewed. GENERAL: Well developed, well nourished, in no acute distress. HEAD: Normocephalic/atraumatic EYES: PERRLA, EOMI EARS: Ext canals without abnormality OROPHARYNX: no oral lesions noted, posterior pharynx clear NECK: Supple, no adenopathy LUNGS: Good inspiratory effort, bibasilar rales noted, no tachypnea, no increased work of breathing, no wheeze/rhonchi. SpO2<97> on room air CARDIOVASCULAR: Regular rate and rhythm without noted murmurs ABDOMEN: Soft, non-tender, non-distended with bowel sounds. MUSCULOSKELETAL: No tenderness, deformities, or effusions noted on gross inspection. EXTREMITIES: No cyanosis, clubbing or edema. SKIN: Inspection of the skin reveals no rashes NEUROLOGIC: Alert and oriented x 4. Strength and sensation to light touch were grossly intact x 4. <Venecia Romero MD - Last Filed: 09/26/22 22:29> Course Course Course Narrative: RME: 76 yold female with pmh of COPD and oxygen dependnet ( 2 liters) presents to the ED for SOB since last night. patient states no chest pain or leg swelling. Patient did not bring her oxygen tank. On room air 02 saturation is 92. Placed on nasal cannuli 2 Liters oxygen. patient not in distress. Labs/EKG/chest xray ordered. <JESSICA Pacheco - Last Filed: 10/03/22 09:35> Medications Administered Discontinued Medications Generic Name Dose Route Start Last Admin Trade Name Freq PRN Reason Stop Dose Admin Acetaminophen 975 mg 09/26/22 22:28 09/26/22 22:57 Acetaminophen 325 Mg Tablet PO 09/26/22 22:29 975 mg ONCE ONE Administration Furosemide 20 mg 09/26/22 22:17 09/26/22 22:29 Furosemide 20 Mg Tablet PO 09/26/22 22:18 20 mg ONCE ONE Administration Protocol <JESSICA Pacheco - Last Filed: 10/03/22 09:35> Medications Administered Discontinued Medications Generic Name Dose Route Start Last Admin Trade Name Freq PRN Reason Stop Dose Admin Acetaminophen 975 mg 09/26/22 22:28 09/26/22 22:57 Acetaminophen 325 Mg Tablet PO 09/26/22 22:29 975 mg ONCE ONE Administration Furosemide 20 mg 09/26/22 22:17 09/26/22 22:29 Furosemide 20 Mg Tablet PO 09/26/22 22:18 20 mg ONCE ONE Administration Protocol <Venecia Romero MD - Last Filed: 09/26/22 22:29> Medical Decision Making Medical Decision Making MDM Narrative: 76-year-old female with history and clinical presentation unlikely to be related to underlying chronic lung disease as she is not tachypneic nor is she tachycardic or hypoxic on room air. Although there is no lower leg edema patient is noted to have the presence of rales with an elevated BNP on review of all investigations. Patient denies any acute chest pain in there are no EKG changes. On review of the urinalysis although there is leukocyte esterase with white blood cells it is a contaminated sample with several squamous epithelium and will not pursue treatment for UTI at this time. Patient was given 20 mg of Lasix orally and instructed to call her primary care provider in the morning to set up an appointment for re-evaluation further outpatient management. She does not appear to be currently treated for any evidence of heart failure but may be experiencing additional strain secondary to longstanding chronic lung disease. <Venecia Romero MD - Last Filed: 09/26/22 22:29> Differential Diagnosis Please see the discussion above <Venecia Romero MD - Last Filed: 09/26/22 22:29> Lab Data Please see the discussion above <Venecia Romero MD - Last Filed: 09/26/22 22:29> Result Diagrams: 09/26/22 18:16 09/26/22 18:16 <JESSICA Pacheco - Last Filed: 10/03/22 09:35> Labs: Lab Results 09/26/22 09/26/22 09/26/22 Range/Units 18:16 18:16 18:16 WBC 8.3 (4.8-10.8) X10*3/uL RBC 3.76 L (4.20-5.50) X10*6/uL Hgb 11.1 L (12.0-16.0) g/dl Hct 33.7 L (37.0-47.0) % MCV 89.6 (80.0-98.0) fL MCH 29.5 (27.0-33.0) pg MCHC 32.9 (31.0-35.0) g/dl RDW 15.8 (11.0-16.0) % Plt Count 261 (160-400) X10*3/uL MPV 10.7 (9.4-12.3) fL Immature Gran % (Auto) 0.5 H (0.0-0.4) % Neut % (Auto) 57.1 (45-73) % Lymph % (Auto) 28.5 (20-40) % [place] % (Auto) 10.8 (2-11) % Eos % (Auto) 2.7 (0-4) % Baso % (Auto) 0.4 (0-2) % Lymph # (Auto) 2.4 (1.2-4.9) X10*3/uL [place] # (Auto) 0.9 (0.1-1.2) X10*3/uL Eos # (Auto) 0.2 (0.0-0.4) X10*3/uL Baso # (Auto) 0.0 (0.0-0.2) X10*3/uL Abs Immat Gran (auto) 0.04 H (0.00-0.03) X10*3/uL Absolute Neuts (auto) 4.7 (2.0-8.3) x10*3/uL Absolute Nucleated RBC 0.000 (0.0-0.012) X10*3/uL Nucleated RBC % (auto) 0.0 (0.0-0.2) /100WBC PT 10.8 (10.0-13.1) SEC INR 0.9 (0.9-1.1) APTT 32.0 (26.0-36.4) SEC Sodium 144 (135-145) mmol/L Potassium 4.8 (3.3-5.1) mmol/L Chloride 108 (96-108) mmol/L Carbon Dioxide 26 (22-29) mmol/L Anion Gap 15 (12-20) BUN 19 H (9-16) mg/dL Creatinine 1.16 (0.5-1.4) mg/dL Estim Creat Clear Calc 41.9 Estimated GFR 45 Random Glucose 89 (60-115) mg/dL Calcium 9.1 (8.4-10.2) mg/dL Total Bilirubin 0.5 (0.0-1.0) mg/dL AST 18 (5-31) U/L ALT 15 (0-31) U/L Alkaline Phosphatase 77 (39-117) U/L Troponin I High Sens (<3.5-17.0) ng/L B-Natriuretic Peptide (<100) pg/mL Total Protein 6.0 L (6.5-8.0) g/dL Albumin 3.9 (3.5-5.0) g/dL Urine Color Urine Appearance Urine pH (5.0-9.0) Ur Specific [place] (1.005-1.025) Urine Protein (Neg-Trace) mg/dL Urine Glucose (UA) (Negative) mg/dL Urine Ketones (Negative) mg/dL Urine Blood (Negative) Urine Nitrite (Negative) Ur Leukocyte Esterase (Negative) Urine RBC (0-2) /HPF Urine WBC (0-5) /HPF Ur Squamous Epith Cells (0-2) /HPF Urine Bacteria (None Seen) Hyaline Casts (0-2) /LPF Influenza Type A (PCR) (Negative) Influenza Type B (PCR) (Negative) RSV RNA Qual (PCR) (Negative) SARS-CoV-2 RNA (RT-PCR) (Negative) 09/26/22 09/26/22 09/26/22 Range/Units 18:16 18:16 18:16 WBC (4.8-10.8) X10*3/uL RBC (4.20-5.50) X10*6/uL Hgb (12.0-16.0) g/dl Hct (37.0-47.0) % MCV (80.0-98.0) fL MCH (27.0-33.0) pg MCHC (31.0-35.0) g/dl RDW (11.0-16.0) % Plt Count (160-400) X10*3/uL MPV (9.4-12.3) fL Immature Gran % (Auto) (0.0-0.4) % Neut % (Auto) (45-73) % Lymph % (Auto) (20-40) % [place] % (Auto) (2-11) % Eos % (Auto) (0-4) % Baso % (Auto) (0-2) % Lymph # (Auto) (1.2-4.9) X10*3/uL [place] # (Auto) (0.1-1.2) X10*3/uL Eos # (Auto) (0.0-0.4) X10*3/uL Baso # (Auto) (0.0-0.2) X10*3/uL Abs Immat Gran (auto) (0.00-0.03) X10*3/uL Absolute Neuts (auto) (2.0-8.3) x10*3/uL Absolute Nucleated RBC (0.0-0.012) X10*3/uL Nucleated RBC % (auto) (0.0-0.2) /100WBC PT (10.0-13.1) SEC INR (0.9-1.1) APTT (26.0-36.4) SEC Sodium (135-145) mmol/L Potassium (3.3-5.1) mmol/L Chloride (96-108) mmol/L Carbon Dioxide (22-29) mmol/L Anion Gap (12-20) BUN (9-16) mg/dL Creatinine (0.5-1.4) mg/dL Estim Creat Clear Calc Estimated GFR Random Glucose (60-115) mg/dL Calcium (8.4-10.2) mg/dL Total Bilirubin (0.0-1.0) mg/dL AST (5-31) U/L ALT (0-31) U/L Alkaline Phosphatase (39-117) U/L Troponin I High Sens 3.3 (<3.5-17.0) ng/L B-Natriuretic Peptide 149 H (<100) pg/mL Total Protein (6.5-8.0) g/dL Albumin (3.5-5.0) g/dL Urine Color Urine Appearance Urine pH (5.0-9.0) Ur Specific [place] (1.005-1.025) Urine Protein (Neg-Trace) mg/dL Urine Glucose (UA) (Negative) mg/dL Urine Ketones (Negative) mg/dL Urine Blood (Negative) Urine Nitrite (Negative) Ur Leukocyte Esterase (Negative) Urine RBC (0-2) /HPF Urine WBC (0-5) /HPF Ur Squamous Epith Cells (0-2) /HPF Urine Bacteria (None Seen) Hyaline Casts (0-2) /LPF Influenza Type A (PCR) NEGATIVE (Negative) Influenza Type B (PCR) NEGATIVE (Negative) RSV RNA Qual (PCR) NEGATIVE (Negative) SARS-CoV-2 RNA (RT-PCR) NEGATIVE (Negative) 09/26/22 Range/Units 21:09 WBC (4.8-10.8) X10*3/uL RBC (4.20-5.50) X10*6/uL Hgb (12.0-16.0) g/dl Hct (37.0-47.0) % MCV (80.0-98.0) fL MCH (27.0-33.0) pg MCHC (31.0-35.0) g/dl RDW (11.0-16.0) % Plt Count (160-400) X10*3/uL MPV (9.4-12.3) fL Immature Gran % (Auto) (0.0-0.4) % Neut % (Auto) (45-73) % Lymph % (Auto) (20-40) % [place] % (Auto) (2-11) % Eos % (Auto) (0-4) % Baso % (Auto) (0-2) % Lymph # (Auto) (1.2-4.9) X10*3/uL [place] # (Auto) (0.1-1.2) X10*3/uL Eos # (Auto) (0.0-0.4) X10*3/uL Baso # (Auto) (0.0-0.2) X10*3/uL Abs Immat Gran (auto) (0.00-0.03) X10*3/uL Absolute Neuts (auto) (2.0-8.3) x10*3/uL Absolute Nucleated RBC (0.0-0.012) X10*3/uL Nucleated RBC % (auto) (0.0-0.2) /100WBC PT (10.0-13.1) SEC INR (0.9-1.1) APTT (26.0-36.4) SEC Sodium (135-145) mmol/L Potassium (3.3-5.1) mmol/L Chloride (96-108) mmol/L Carbon Dioxide (22-29) mmol/L Anion Gap (12-20) BUN (9-16) mg/dL Creatinine (0.5-1.4) mg/dL Estim Creat Clear Calc Estimated GFR Random Glucose (60-115) mg/dL Calcium (8.4-10.2) mg/dL Total Bilirubin (0.0-1.0) mg/dL AST (5-31) U/L ALT (0-31) U/L Alkaline Phosphatase (39-117) U/L Troponin I High Sens (<3.5-17.0) ng/L B-Natriuretic Peptide (<100) pg/mL Total Protein (6.5-8.0) g/dL Albumin (3.5-5.0) g/dL Urine Color Yellow Urine Appearance Clear Urine pH 5.5 (5.0-9.0) Ur Specific [place] 1.015 (1.005-1.025) Urine Protein Negative (Neg-Trace) mg/dL Urine Glucose (UA) Negative (Negative) mg/dL Urine Ketones Negative (Negative) mg/dL Urine Blood Negative (Negative) Urine Nitrite Negative (Negative) Ur Leukocyte Esterase Small (1+) H (Negative) Urine RBC 0-2 (0-2) /HPF Urine WBC 11-20 H (0-5) /HPF Ur Squamous Epith Cells 6-10 (0-2) /HPF Urine Bacteria None Seen (None Seen) Hyaline Casts 0-2 (0-2) /LPF Influenza Type A (PCR) (Negative) Influenza Type B (PCR) (Negative) RSV RNA Qual (PCR) (Negative) SARS-CoV-2 RNA (RT-PCR) (Negative) <JESSICA Pacheco - Last Filed: 10/03/22 09:35> Lab Results 09/26/22 09/26/22 09/26/22 Range/Units 18:16 18:16 18:16 WBC 8.3 (4.8-10.8) X10*3/uL RBC 3.76 L (4.20-5.50) X10*6/uL Hgb 11.1 L (12.0-16.0) g/dl Hct 33.7 L (37.0-47.0) % MCV 89.6 (80.0-98.0) fL MCH 29.5 (27.0-33.0) pg MCHC 32.9 (31.0-35.0) g/dl RDW 15.8 (11.0-16.0) % Plt Count 261 (160-400) X10*3/uL MPV 10.7 (9.4-12.3) fL Immature Gran % (Auto) 0.5 H (0.0-0.4) % Neut % (Auto) 57.1 (45-73) % Lymph % (Auto) 28.5 (20-40) % [place] % (Auto) 10.8 (2-11) % Eos % (Auto) 2.7 (0-4) % Baso % (Auto) 0.4 (0-2) % Lymph # (Auto) 2.4 (1.2-4.9) X10*3/uL [place] # (Auto) 0.9 (0.1-1.2) X10*3/uL Eos # (Auto) 0.2 (0.0-0.4) X10*3/uL Baso # (Auto) 0.0 (0.0-0.2) X10*3/uL Abs Immat Gran (auto) 0.04 H (0.00-0.03) X10*3/uL Absolute Neuts (auto) 4.7 (2.0-8.3) x10*3/uL Absolute Nucleated RBC 0.000 (0.0-0.012) X10*3/uL Nucleated RBC % (auto) 0.0 (0.0-0.2) /100WBC PT 10.8 (10.0-13.1) SEC INR 0.9 (0.9-1.1) APTT 32.0 (26.0-36.4) SEC Sodium 144 (135-145) mmol/L Potassium 4.8 (3.3-5.1) mmol/L Chloride 108 (96-108) mmol/L Carbon Dioxide 26 (22-29) mmol/L Anion Gap 15 (12-20) BUN 19 H (9-16) mg/dL Creatinine 1.16 (0.5-1.4) mg/dL Estim Creat Clear Calc 41.9 Estimated GFR 45 Random Glucose 89 (60-115) mg/dL Calcium 9.1 (8.4-10.2) mg/dL Total Bilirubin 0.5 (0.0-1.0) mg/dL AST 18 (5-31) U/L ALT 15 (0-31) U/L Alkaline Phosphatase 77 (39-117) U/L Troponin I High Sens (<3.5-17.0) ng/L B-Natriuretic Peptide (<100) pg/mL Total Protein 6.0 L (6.5-8.0) g/dL Albumin 3.9 (3.5-5.0) g/dL Urine Color Urine Appearance Urine pH (5.0-9.0) Ur Specific [place] (1.005-1.025) Urine Protein (Neg-Trace) mg/dL Urine Glucose (UA) (Negative) mg/dL Urine Ketones (Negative) mg/dL Urine Blood (Negative) Urine Nitrite (Negative) Ur Leukocyte Esterase (Negative) Urine RBC (0-2) /HPF Urine WBC (0-5) /HPF Ur Squamous Epith Cells (0-2) /HPF Urine Bacteria (None Seen) Hyaline Casts (0-2) /LPF Influenza Type A (PCR) (Negative) Influenza Type B (PCR) (Negative) RSV RNA Qual (PCR) (Negative) SARS-CoV-2 RNA (RT-PCR) (Negative) 09/26/22 09/26/22 09/26/22 Range/Units 18:16 18:16 18:16 WBC (4.8-10.8) X10*3/uL RBC (4.20-5.50) X10*6/uL Hgb (12.0-16.0) g/dl Hct (37.0-47.0) % MCV (80.0-98.0) fL MCH (27.0-33.0) pg MCHC (31.0-35.0) g/dl RDW (11.0-16.0) % Plt Count (160-400) X10*3/uL MPV (9.4-12.3) fL Immature Gran % (Auto) (0.0-0.4) % Neut % (Auto) (45-73) % Lymph % (Auto) (20-40) % [place] % (Auto) (2-11) % Eos % (Auto) (0-4) % Baso % (Auto) (0-2) % Lymph # (Auto) (1.2-4.9) X10*3/uL [place] # (Auto) (0.1-1.2) X10*3/uL Eos # (Auto) (0.0-0.4) X10*3/uL Baso # (Auto) (0.0-0.2) X10*3/uL Abs Immat Gran (auto) (0.00-0.03) X10*3/uL Absolute Neuts (auto) (2.0-8.3) x10*3/uL Absolute Nucleated RBC (0.0-0.012) X10*3/uL Nucleated RBC % (auto) (0.0-0.2) /100WBC PT (10.0-13.1) SEC INR (0.9-1.1) APTT (26.0-36.4) SEC Sodium (135-145) mmol/L Potassium (3.3-5.1) mmol/L Chloride (96-108) mmol/L Carbon Dioxide (22-29) mmol/L Anion Gap (12-20) BUN (9-16) mg/dL Creatinine (0.5-1.4) mg/dL Estim Creat Clear Calc Estimated GFR Random Glucose (60-115) mg/dL Calcium (8.4-10.2) mg/dL Total Bilirubin (0.0-1.0) mg/dL AST (5-31) U/L ALT (0-31) U/L Alkaline Phosphatase (39-117) U/L Troponin I High Sens 3.3 (<3.5-17.0) ng/L B-Natriuretic Peptide 149 H (<100) pg/mL Total Protein (6.5-8.0) g/dL Albumin (3.5-5.0) g/dL Urine Color Urine Appearance Urine pH (5.0-9.0) Ur Specific [place] (1.005-1.025) Urine Protein (Neg-Trace) mg/dL Urine Glucose (UA) (Negative) mg/dL Urine Ketones (Negative) mg/dL Urine Blood (Negative) Urine Nitrite (Negative) Ur Leukocyte Esterase (Negative) Urine RBC (0-2) /HPF Urine WBC (0-5) /HPF Ur Squamous Epith Cells (0-2) /HPF Urine Bacteria (None Seen) Hyaline Casts (0-2) /LPF Influenza Type A (PCR) NEGATIVE (Negative) Influenza Type B (PCR) NEGATIVE (Negative) RSV RNA Qual (PCR) NEGATIVE (Negative) SARS-CoV-2 RNA (RT-PCR) NEGATIVE (Negative) 09/26/22 Range/Units 21:09 WBC (4.8-10.8) X10*3/uL RBC (4.20-5.50) X10*6/uL Hgb (12.0-16.0) g/dl Hct (37.0-47.0) % MCV (80.0-98.0) fL MCH (27.0-33.0) pg MCHC (31.0-35.0) g/dl RDW (11.0-16.0) % Plt Count (160-400) X10*3/uL MPV (9.4-12.3) fL Immature Gran % (Auto) (0.0-0.4) % Neut % (Auto) (45-73) % Lymph % (Auto) (20-40) % [place] % (Auto) (2-11) % Eos % (Auto) (0-4) % Baso % (Auto) (0-2) % Lymph # (Auto) (1.2-4.9) X10*3/uL [place] # (Auto) (0.1-1.2) X10*3/uL Eos # (Auto) (0.0-0.4) X10*3/uL Baso # (Auto) (0.0-0.2) X10*3/uL Abs Immat Gran (auto) (0.00-0.03) X10*3/uL Absolute Neuts (auto) (2.0-8.3) x10*3/uL Absolute Nucleated RBC (0.0-0.012) X10*3/uL Nucleated RBC % (auto) (0.0-0.2) /100WBC PT (10.0-13.1) SEC INR (0.9-1.1) APTT (26.0-36.4) SEC Sodium (135-145) mmol/L Potassium (3.3-5.1) mmol/L Chloride (96-108) mmol/L Carbon Dioxide (22-29) mmol/L Anion Gap (12-20) BUN (9-16) mg/dL Creatinine (0.5-1.4) mg/dL Estim Creat Clear Calc Estimated GFR Random Glucose (60-115) mg/dL Calcium (8.4-10.2) mg/dL Total Bilirubin (0.0-1.0) mg/dL AST (5-31) U/L ALT (0-31) U/L Alkaline Phosphatase (39-117) U/L Troponin I High Sens (<3.5-17.0) ng/L B-Natriuretic Peptide (<100) pg/mL Total Protein (6.5-8.0) g/dL Albumin (3.5-5.0) g/dL Urine Color Yellow Urine Appearance Clear Urine pH 5.5 (5.0-9.0) Ur Specific [place] 1.015 (1.005-1.025) Urine Protein Negative (Neg-Trace) mg/dL Urine Glucose (UA) Negative (Negative) mg/dL Urine Ketones Negative (Negative) mg/dL Urine Blood Negative (Negative) Urine Nitrite Negative (Negative) Ur Leukocyte Esterase Small (1+) H (Negative) Urine RBC 0-2 (0-2) /HPF Urine WBC 11-20 H (0-5) /HPF Ur Squamous Epith Cells 6-10 (0-2) /HPF Urine Bacteria None Seen (None Seen) Hyaline Casts 0-2 (0-2) /LPF Influenza Type A (PCR) (Negative) Influenza Type B (PCR) (Negative) RSV RNA Qual (PCR) (Negative) SARS-CoV-2 RNA (RT-PCR) (Negative) <Venecia Romero MD - Last Filed: 09/26/22 22:29> Independent Interpretation I performed an independent interpretation of an: EKG <Venecia Romero MD - Last Filed: 09/26/22 22:29> Interpretation: Normal sinus rhythm, HR-67, no STEMI, MN/QRS/QTC is within normal limits. <Venecia Romero MD - Last Filed: 09/26/22 22:29> Radiology Impression Radiologist Impression: My interpretation is in agreement with radiology's impression of the imaging studies. <Venecia Romero MD - Last Filed: 09/26/22 22:29> Chronic Conditions Patient?s care impacted by: Hypertension <Venecia Romero MD - Last Filed: 09/26/22 22:29> Discharge Plan Discharge Clinical Impression: CHF (congestive heart failure), Breath shortness <JESSICA Pacheco - Last Filed: 10/03/22 09:35> Patient Disposition: Home, Self-Care <JESSICA Pacheco - Last Filed: 10/03/22 09:35> Instructions: Heart Failure (ED), Low-Sodium Diet (ED), Shortness of Breath (ED) <JESSICA Pacheco - Last Filed: 10/03/22 09:35> Additional Instructions: 1. Resume all home medications as prescribed. 2. Call your primary care physician 1st thing in the morning to set up an appointment for re-evaluation and further outpatient management. Also recommend that you follow-up with your welcome wagon hostess. Return to the ER for any worsening symptoms. <JESSICA Pacheco - Last Filed: 10/03/22 09:35> Prescriptions: New furosemide [Lasix] 20 mg tablet 10 mg PO DAILY 14 Days Qty: 7 0RF No Action cholecalciferol (vitamin D3) 50 mcg (2,000 unit) capsule 50 mcg PO DAILY 30 Days Qty: 30 3RF albuterol sulfate 90 mcg/actuation HFA aerosol inhaler 2 puff PO Q4H PRN (Reason: for wheezing) Qty: 8.5 3RF meclizine 25 mg tablet 25 mg PO BID PRN (Reason: dizziness) Qty: 14 0RF albuterol sulfate 2.5 mg /3 mL (0.083 %) solution for nebulization inhalation Q4H PRN (Reason: wheezing) nitroglycerin 0.4 mg tablet, sublingual 0 mg sublingual Dexilant 60 mg capsule,biphase delayed releas 60 mg PO DAILY cetirizine 10 mg tablet 10 mg PO DAILY atorvastatin 80 mg tablet 80 mg PO DAILY metoprolol succinate 50 mg tablet extended release 24 hr 50 mg PO DAILY amlodipine 5 mg tablet 5 mg PO DAILY aspirin 81 mg tablet,delayed release (DR/EC) 81 mg PO DAILY isosorbide mononitrate 30 mg tablet extended release 24 hr 30 mg PO QAM Trelegy Ellipta 200-62.5-25 mcg blister with device 1 inh inhalation DAILY 30 Days Qty: 60 12RF azelastine 137 mcg (0.1 %) aerosol,spray 2 spray intranasal BID 30 Days Qty: 30 6RF Rx Instructions: administer into each nostril fluticasone propionate 50 mcg/actuation spray,suspension 2 spray intranasal DAILY 30 Days Qty: 15.8 11RF melatonin 10 mg tablet 10 mg PO BEDTIME PRN nitrofurantoin macrocrystal 50 mg capsule 50 mg PO DAILY (DME) Oxygen Home Use Kit See Rx Instructions .ROUTE Rx Instructions: As directed (DME) nebulizers Misc See Rx Instructions .ROUTE Rx Instructions: As directed Trulance 3 mg tablet 3 mg PO DAILY metoprolol tartrate 50 mg tablet 0 mg PO montelukast [Singulair] 10 mg tablet 10 mg PO BEDTIME 30 Days Qty: 30 11RF <JESSICA Pacheco - Last Filed: 10/03/22 09:35> Referrals: Kathy Christopher MD [Primary Care Provider] - <JESSICA Pacheco - Last Filed: 10/03/22 09:35> Interventions: ED Discharge Assessment Last Done: 09/26/22 23:00 <JESSICA Pacheco - Last Filed: 10/03/22 09:35> Discharge Date/Time: 09/26/22 23:01 <JESSICA Pacheco - Last Filed: 10/03/22 09:35>
[2022-09-26 18:22] LABS: MANUAL DIFF FLAG NO
[2022-09-26 18:29] LABS: INTERNATIONAL NORM RATIO 0.9 (0.9-1.1); Prothrombin Time 10.8 SEC (10.0-13.1)
[2022-09-26 18:43] LABS: Alanine Aminotransferase 15 U/L (0-31); Albumin Level 3.9 g/dL (3.5-5.0); Alkaline Phosphatase 77 U/L (39-117); Anion Gap 15 (12-20); Aspartate Amino Transferase 18 U/L (5-31); Bilirubin Total 0.5 mg/dL (0.0-1.0); Blood Urea Nitrogen 19 mg/dL (9-16); Calcium 9.1 mg/dL (8.4-10.2); Carbon Dioxide 26 mmol/L (22-29); Chloride 108 mmol/L (96-108); Creatinine Clr Calc Pharmacy 41.9; Estimated Glomerular Filt Rate 45; Glucose Random 89 mg/dL (60-115); Potassium 4.8 mmol/L (3.3-5.1); Sodium 144 mmol/L (135-145)
[2022-09-26 18:48] LABS: B Type Natriuretic Peptide 149 pg/mL (<100); Basophils Percent Auto 0.4 % (0-2); Eosinophils Absolute Auto 0.2 X10*3/uL (0.0-0.4); Eosinophils Percent Auto 2.7 % (0-4); Hematocrit 33.7 % (37.0-47.0); Hemoglobin 11.1 g/dl (12.0-16.0); Imm Gran Abs Auto 0.04 X10*3/uL (0.00-0.03); Imm Gran Pct Auto 0.5 % (0.0-0.4); Lymphocytes Absolute Auto 2.4 X10*3/uL (1.2-4.9); Lymphocytes Percent Auto 28.5 % (20-40); Mean Corpuscular HGB Conc 32.9 g/dl (31.0-35.0); Mean Corpuscular Hemoglobin 29.5 pg (27.0-33.0); Mean Corpuscular Volume 89.6 fL (80.0-98.0); Mean Platelet Volume 10.7 fL (9.4-12.3); Monocytes Absolute Auto 0.9 X10*3/uL (0.1-1.2); Monocytes Percent Auto 10.8 % (2-11); Neutrophils Absolute Auto 4.7 x10*3/uL (2.0-8.3); Neutrophils Percent Auto 57.1 % (45-73); Platelet Count 261 X10*3/uL (160-400); Red Blood Count 3.76 X10*6/uL (4.20-5.50); Red Cell Distribution Width 15.8 % (11.0-16.0); White Blood Count 8.3 X10*3/uL (4.8-10.8)
[2022-09-26 18:51] LABS: Troponin-I High Sensitivity 3.3 ng/L (<3.5-17.0)
[2022-09-26 19:04] LABS: Influenza A PCR NEGATIVE (Negative); Influenza B PCR NEGATIVE (Negative); Resp Syncy Virus RNA Qual PCR NEGATIVE (Negative); SARS COV2 PCR INHOUSE NEGATIVE (Negative)
--- NOTE | 2022-09-26 20:28 | ECG_ITS ---
Test Reason : DYSPNEA Blood Pressure : / mmHG Vent. Rate : 067 BPM Atrial Rate : 067 BPM P-R Int : 130 ms QRS Dur : 076 ms QT Int : 404 ms P-R-T Axes : 065 040 050 degrees QTc Int : 426 ms Normal sinus rhythm Normal ECG When compared with ECG of 26-SEP-2022 18:09, No significant change was found Referred By: Venecia Romero Electronically Signed By:CHUCHO BALTAZAR MD
[2022-09-26 20:35] VITALS: BP 146/68; PULSE 64; RESP 18; TEMP 36.8; O2SAT 97
[2022-09-26 21:14] LABS: Appearance Urine Clear; Color Urine Yellow; Glucose Urine UA Negative (Negative); Leukocyte Esterase Urine Small (1+) (Negative); Nitrite Urine Negative (Negative); PH 5.5 (5.0-9.0); Specific Gravity - Urine 1.015 (1.005-1.025); UMIC TRIGGER UACC YES; Urine Blood Negative (Negative); Urine Ketones Negative (Negative); Urine Protein Negative (Neg-Trace)
[2022-09-26 21:17] LABS: Bacteria Urine None Seen (None Seen); Hyaline Casts Urine 0-2 /LPF (0-2); RBC Urine 0-2 /HPF (0-2); UACC Culture Trigger YES
[2022-09-26 21:46] VITALS: BP 144/69; PULSE 72; RESP 12; O2SAT 97
[2022-09-26] MEDS: Furosemide 20 MG TABLET PO (22:29)
[2022-09-26] MEDS: Acetaminophen 325 MG TABLET 975 MG PO (22:57)
== END 2022-09-26 23:01 | disposition home or self-care (01) ==
PROVIDERS: Physician Assistant; Emergency Provider Student in an Organized Health Care Education/Training Program; PCP Internal Medicine
DX: I50.9 Heart failure, unspecified (principal); R06.02 Shortness of breath; R94.31 Abnormal electrocardiogram [ECG] [EKG]; Z20.822 Contact with and (suspected) exposure to COVID-19; Z20.828 Contact with and (suspected) exposure to other viral communicable diseases; Z79.899 Other long term (current) drug therapy; Z87.891 Personal history of nicotine dependence
CPT/HCPCS: 0241U; 36415; 71045; 80053; 81001; 83880; 84484; 85025; 85610; 85730; 87086; 93005; 99284; 99285

== ENCOUNTER → 2022-10-14 13:37 | Outpatient (BNVA) | payer OTHER, SELFPAY | PROVIDERS: PCP Internal Medicine; Visit Provider Hospitalist | DX: J45.40 Moderate persistent asthma, uncomplicated (principal); J18.9 Pneumonia, unspecified organism; J41.8 Mixed simple and mucopurulent chronic bronchitis; J31.0 Chronic rhinitis; Z99.81 Dependence on supplemental oxygen; Z79.899 Other long term (current) drug therapy; Z95.5 Presence of coronary angioplasty implant and graft; Z98.890 Other specified postprocedural states | CPT/HCPCS: 99212 ==

== ENCOUNTER → 2022-10-19 09:48 | Outpatient (BNVA) | payer OTHER, SELFPAY | PROVIDERS: PCP Internal Medicine; Visit Provider Physician Assistant | DX: Z86.010 Personal history of colon polyps (principal); J44.1 Chronic obstructive pulmonary disease with (acute) exacerbation; Z99.81 Dependence on supplemental oxygen | CPT/HCPCS: 99212 ==

== ENCOUNTER 2022-10-21 12:13 | Outpatient (REF) | payer OTHER, SELFPAY ==
[2022-10-21 16:01] LABS: Anion Gap 16 (12-20); Blood Urea Nitrogen 30 mg/dL (9-16); Calcium 9.6 mg/dL (8.4-10.2); Carbon Dioxide 28 mmol/L (22-29); Chloride 102 mmol/L (96-108); Estimated Glomerular Filt Rate 36; Glucose Random 112 mg/dL (60-115); Potassium 4.1 mmol/L (3.3-5.1); Sodium 142 mmol/L (135-145)
== END 2022-10-21 12:14 | disposition home or self-care (01) ==
LOC: HO.LAB 12:13
PROVIDERS: PCP Internal Medicine; Visit Provider Nurse Practitioner Acute Care
DX: I25.10 Atherosclerotic heart disease of native coronary artery without angina pectoris (principal)
CPT/HCPCS: 36415; 80048

== ENCOUNTER → 2022-12-09 13:51 | Outpatient (BNVA) | payer OTHER, SELFPAY | PROVIDERS: PCP Internal Medicine; Visit Provider Hospitalist | DX: J41.8 Mixed simple and mucopurulent chronic bronchitis (principal); J31.0 Chronic rhinitis; J18.9 Pneumonia, unspecified organism; J18.0 Bronchopneumonia, unspecified organism; D80.1 Nonfamilial hypogammaglobulinemia; K21.9 Gastro-esophageal reflux disease without esophagitis | CPT/HCPCS: 99212 ==

== ENCOUNTER 2023-01-05 15:14 | Outpatient (REF) | payer OTHER, SELFPAY ==
--- NOTE | 2023-01-05 16:09 | PFT_ITS ---
FLOWS: 1. FEV1 71% of predicted at 1.47 L. 2. FVC 69% of predicted at 1.84 L. 3. FEV1 to FVC ratio of 0.80. 4. No bronchodilator response. LUNG VOLUMES: 1. Total lung capacity 66% of predicted at 3.35 L. 2. Residual volume 60% of predicted at 1.43 L. 3. Slow vital capacity 71% of predicted at 1.92 L. 4. Expiratory reserve volume 38% of predicted at 0.22 L. 5. Diffusion capacity is severely decreased, diffusion capacity adjusted to moderately decreased after correction for alveolar ventilation. IMPRESSION: Moderate restrictive ventilatory defect with no bronchodilator response. Decreased expiratory reserve volume suggests extrathoracic restriction, likely secondary to abdominal obesity. Decreased diffusion capacity, suggests emphysema. Alexander Wills MD AP/MODL / [id number]
== END 2023-01-05 15:15 | disposition home or self-care (01) ==
LOC: HO.RESP 15:14
PROVIDERS: PCP Internal Medicine; Visit Provider Hospitalist
DX: J44.9 Chronic obstructive pulmonary disease, unspecified (principal); J18.9 Pneumonia, unspecified organism
CPT/HCPCS: 94010; 94727; 94729

== ENCOUNTER → 2023-01-05 16:09 | Outpatient (BNV) | payer OTHER, SELFPAY | PROVIDERS: PCP Internal Medicine; Visit Provider Internal Medicine Pulmonary Disease | DX: J44.9 Chronic obstructive pulmonary disease, unspecified (principal) | CPT/HCPCS: 94060; 94727; 94729 ==

== ENCOUNTER 2023-02-22 09:46 | Emergency (ER) | payer OTHER, SELFPAY ==
[2023-02-22 10:47] VITALS: BP 131/65; PULSE 82; RESP 18; TEMP 36.6; O2SAT 97; BMI 30.9
[2023-02-22 11:51] LABS: MANUAL DIFF FLAG NO
[2023-02-22 11:54] LABS: Appearance Urine Cloudy; Color Urine Yellow; Glucose Urine UA Negative (Negative); Leukocyte Esterase Urine Large (3+) (Negative); Nitrite Urine Negative (Negative); PH 5.5 (5.0-9.0); Specific Gravity - Urine 1.015 (1.005-1.025); UMIC TRIGGER UACC YES; Urine Blood Small (1+) (Negative); Urine Ketones Negative (Negative); Urine Protein Negative (Neg-Trace)
[2023-02-22 11:56] LABS: Basophils Percent Auto 0.2 % (0-2); Eosinophils Absolute Auto 0.2 X10*3/uL (0.0-0.4); Eosinophils Percent Auto 1.6 % (0-4); Hematocrit 37.7 % (37.0-47.0); Hemoglobin 12.7 g/dl (12.0-16.0); Imm Gran Abs Auto 0.09 X10*3/uL (0.00-0.03); Imm Gran Pct Auto 0.6 % (0.0-0.4); Lymphocytes Absolute Auto 2.7 X10*3/uL (1.2-4.9); Lymphocytes Percent Auto 19.2 % (20-40); Mean Corpuscular HGB Conc 33.7 g/dl (31.0-35.0); Mean Corpuscular Hemoglobin 29.8 pg (27.0-33.0); Mean Corpuscular Volume 88.5 fL (80.0-98.0); Mean Platelet Volume 10.3 fL (9.4-12.3); Monocytes Absolute Auto 1.3 X10*3/uL (0.1-1.2); Monocytes Percent Auto 8.9 % (2-11); Neutrophils Absolute Auto 9.8 x10*3/uL (2.0-8.3); Neutrophils Percent Auto 69.5 % (45-73); Platelet Count 333 X10*3/uL (160-400); Red Blood Count 4.26 X10*6/uL (4.20-5.50); Red Cell Distribution Width 14.7 % (11.0-16.0); White Blood Count 14.1 X10*3/uL (4.8-10.8)
[2023-02-22 12:06] LABS: Bacteria Urine 1+ (None Seen); Hyaline Casts Urine 0-2 /LPF (0-2); Squamous Epithelial Cell Urine 0-2 /HPF (0-2); UACC Culture Trigger YES; WBC Urine >50 /HPF (0-5)
[2023-02-22 12:12] LABS: Anion Gap 16 (12-20); Blood Urea Nitrogen 22 mg/dL (9-16); Calcium 9.8 mg/dL (8.4-10.2); Carbon Dioxide 24 mmol/L (22-29); Chloride 106 mmol/L (96-108); Creatinine Clr Calc Pharmacy 37.4; Estimated Glomerular Filt Rate 40; Glucose Random 109 mg/dL (60-115); Potassium 4.7 mmol/L (3.3-5.1); Sodium 141 mmol/L (135-145)
--- NOTE | 2023-02-22 13:08 | ED_ITS ---
HPI - Abdominal Pain General Chief Complaint: Abdominal Pain Stated Complaint: uti Time Seen by Provider: 02/22/23 12:59 Source: patient Mode of arrival: ambulatory History of Present Illness HPI narrative: 77-year-old female with history of hypertension presents with lower abdominal pelvic cramping, foul-smelling urine with urinary frequency and pain for 1 week. She denies any back pain has had some chills but no fevers. Related Data Home Medications Medication Instructions Recorded Confirmed atorvastatin 80 mg tablet 80 mg PO DAILY 03/21/20 11/18/21 cetirizine 10 mg tablet 10 mg PO DAILY 03/21/20 11/18/21 dexlansoprazole 60 mg 60 mg PO DAILY 03/21/20 11/18/21 capsule,biphase delayed release nitroglycerin 0.4 mg sublingual 0 mg sublingual 03/21/20 11/18/21 tablet albuterol sulfate 2.5 mg/3 mL mg inhalation Q4H PRN wheezing 04/28/20 11/18/21 (0.083 %) solution for nebulization melatonin 10 mg tablet 10 mg PO BEDTIME PRN 08/19/21 11/18/21 metoprolol succinate 50 mg 50 mg PO DAILY 08/19/21 11/18/21 tablet,extended release 24 hr amlodipine 5 mg tablet 5 mg PO DAILY 09/02/21 11/18/21 aspirin 81 mg tablet,delayed 81 mg PO DAILY 09/02/21 11/18/21 release isosorbide mononitrate 30 mg 30 mg PO QAM 09/02/21 11/18/21 tablet,extended release 24 hr nitrofurantoin macrocrystal 50 mg 50 mg PO DAILY 05/27/22 capsule Oxygen Home Use 09/16/22 nebulizers 09/16/22 plecanatide 3 mg tablet (Trulance) 3 mg PO DAILY 09/16/22 Previous Rx's Medication Instructions Recorded cholecalciferol (vitamin D3) 50 50 mcg PO DAILY 30 days #30 caps 04/08/20 mcg (2,000 unit) capsule meclizine 25 mg tablet 25 mg PO BID PRN dizziness #14 tabs 04/02/22 azelastine 137 mcg (0.1 %) nasal 2 spray intranasal BID 30 days #30 08/11/22 spray aerosol mL fluticasone fur. 200 mcg-umeclid 1 inh inhalation DAILY 30 days #60 08/11/22 62.5 mcg-vilant 25 mcg ea inhalat.powder (Trelegy Ellipta) fluticasone propionate 50 2 spray intranasal DAILY 30 days 08/11/22 mcg/actuation nasal #15.8 mL spray,suspension furosemide 20 mg tablet (Lasix) 10 mg PO DAILY 14 days #7 tabs 09/26/22 albuterol sulfate 90 mcg/actuation 2 puff PO Q4H PRN for wheezing 01/10/23 aerosol inhaler #8.5 ea cefdinir 300 mg capsule 300 mg PO BID 7 days #14 caps 02/22/23 phenazopyridine 200 mg tablet 200 mg PO TID PRN pain 6 doses #6 02/22/23 (Pyridium) tabs Allergies Allergy/AdvReac Type Severity Reaction Status Date / Time amoxicillin [Augmentin] Allergy Mild Rash Verified 12/09/22 14:03 clavulanic acid Allergy Mild RASH Verified 12/09/22 14:03 [From Augmentin] Review of Systems Review of Systems Pertinent positives and negatives as stated in HPI [facility] Past Medical History Source: nursing notes reviewed Medical History Bronchopneumonia Chronic rhinitis COPD (chronic obstructive pulmonary disease) Diabetes Dizziness Headache History of adenomatous polyp of colon HTN (hypertension) Hyperlipidemia Hypogammaglobulinemia Pneumonitis Surgical History H/O colonoscopy History of bunionectomy History of foot surgery History of toe surgery S/P right coronary artery (RCA) stent placement Family History Family History Mother No problems noted. Father No problems noted. Social History Social History Household Members: None Housing: Apartment Alcohol intake: never Patient Tobacco Use Status: Former Tobacco user Tobacco use type: Cigarette Advance Directives: No Advance Directives Information Provided: Yes service: No Current occupational status: retired Sexual orientation: Straight/Heterosexual Gender identity: Female Physical Exam ED Vital Signs: Vital Signs - 24 hr 02/22/23 10:47 Temperature 98 F Pulse Rate 82 Respiratory Rate 18 Blood Pressure 131/65 Pulse Oximetry 97 Oxygen Delivery Method Room Air BMI result Body Mass Index 30.9 VITAL SIGNS: Reviewed. GENERAL: Well developed, well nourished, in no acute distress. HEAD: Normocephalic/atraumatic EYES: PERRLA, EOMI EARS: Ext canals without abnormality NOSE: Nares patent bilateral OROPHARYNX: no oral lesions noted, posterior pharynx clear NECK: Supple, no adenopathy LUNGS: Normal breath sounds. No adventitious sounds or accessory muscle use. SpO2<97> CARDIOVASCULAR: Regular rate and rhythm without noted murmurs ABDOMEN: Soft, mild tenderness to palpation over suprapubic area without rebound, non-distended with bowel sounds. MUSCULOSKELETAL: No tenderness, deformities, or effusions noted on gross inspection. EXTREMITIES: No cyanosis, clubbing or edema. SKIN: Inspection of the skin reveals no rashes NEUROLOGIC: Alert and oriented x 4. Strength and sensation to light touch were grossly intact x 4. Medical Decision Making Medical Decision Making [facility] Narrative: 77-year-old female with history and clinical presentation, DDX: UTI, less likely felt to be diverticulitis/appendicitis is there are no corresponding nausea, vomiting, diarrhea and clinical exam of abdomen not consistent with this etiology. In addition, no evidence to suggest obstruction. I reviewed all investigations and hematologic indices are significant for a leukocytosis without left shift, patient is afebrile otherwise no anemia or thrombocytopenia. Chemistry indices negative for electrolyte abnormalities and no ROCIO. BUN is chronically elevated and stable. Urinalysis is significant for positivity with the presence of bacteria/wbc's and leukocyte esterase. Patient received Pyridium as well as Rocephin IM in the emergency room and then discharged with remaining course of antibiotics to protect for any development kidney infection. Differential Diagnosis Differential Diagnoses: The differential diagnosis associated with the presentation includes Please see the discussion above Admission/Observation Consideration of admission/observation: Escalation of care including admission/observation considered Please see the discussion above Lab Data [facility] Lab Attestation statement: I reviewed the patient's lab results. Please see the discussion above 02/22/23 11:46 02/22/23 11:46 Labs: Lab Results 02/22/23 02/22/23 02/22/23 Range/Units 11:46 11:46 11:46 WBC 14.1 H (4.8-10.8) X10*3/uL RBC 4.26 (4.20-5.50) X10*6/uL Hgb 12.7 (12.0-16.0) g/dl Hct 37.7 (37.0-47.0) % MCV 88.5 (80.0-98.0) fL MCH 29.8 (27.0-33.0) pg MCHC 33.7 (31.0-35.0) g/dl RDW 14.7 (11.0-16.0) % Plt Count 333 D (160-400) X10*3/uL MPV 10.3 (9.4-12.3) fL Immature Gran % (Auto) 0.6 H (0.0-0.4) % Neut % (Auto) 69.5 (45-73) % Lymph % (Auto) 19.2 L (20-40) % [place] % (Auto) 8.9 (2-11) % Eos % (Auto) 1.6 (0-4) % Baso % (Auto) 0.2 (0-2) % Lymph # (Auto) 2.7 (1.2-4.9) X10*3/uL [place] # (Auto) 1.3 H (0.1-1.2) X10*3/uL Eos # (Auto) 0.2 (0.0-0.4) X10*3/uL Baso # (Auto) 0.0 (0.0-0.2) X10*3/uL Abs Immat Gran (auto) 0.09 H (0.00-0.03) X10*3/uL Absolute Neuts (auto) 9.8 H (2.0-8.3) x10*3/uL Absolute Nucleated RBC 0.000 (0.0-0.012) X10*3/uL Nucleated RBC % (auto) 0.0 (0.0-0.2) /100WBC Sodium 141 (135-145) mmol/L Potassium 4.7 (3.3-5.1) mmol/L Chloride 106 (96-108) mmol/L Carbon Dioxide 24 (22-29) mmol/L Anion Gap 16 (12-20) BUN 22 H (9-16) mg/dL Creatinine 1.28 (0.5-1.4) mg/dL Estim Creat Clear Calc 37.4 Estimated GFR 40 Random Glucose 109 (60-115) mg/dL Calcium 9.8 (8.4-10.2) mg/dL Urine Color Yellow Urine Appearance Cloudy Urine pH 5.5 (5.0-9.0) Ur Specific [place] 1.015 (1.005-1.025) Urine Protein Negative (Neg-Trace) mg/dL Urine Glucose (UA) Negative (Negative) mg/dL Urine Ketones Negative (Negative) mg/dL Urine Blood Small (1+) H (Negative) Urine Nitrite Negative (Negative) Ur Leukocyte Esterase Large (3+) H (Negative) Urine RBC 3-5 H (0-2) /HPF Urine WBC >50 H (0-5) /HPF Ur Squamous Epith Cells 0-2 (0-2) /HPF Urine Bacteria 1+ (None Seen) Hyaline Casts 0-2 (0-2) /LPF External Record Review External record reviewed: Outpatient record, Prior outpatient labs and Prior outpatient radiology Chronic Conditions Patient?s care impacted by: Hypertension Discharge Plan Discharge Clinical Impression: Cystitis Patient Disposition: Home, Self-Care Instructions: Urinary Tract Infection in Women (ED), Urinary Tract Infection in Older Adults (ED) Additional Instructions: 1. Resume all home medications as prescribed. 2. Complete the entire course of antibiotics as prescribed. 3. Please follow-up with primary care provider. Return to the ER for any worsening symptoms. Prescriptions: New cefdinir 300 mg capsule 300 mg PO BID 7 Days Qty: 14 0RF phenazopyridine [Pyridium] 200 mg tablet 200 mg PO TID PRN (Reason: pain) Qty: 6 0RF No Action cholecalciferol (vitamin D3) 50 mcg (2,000 unit) capsule 50 mcg PO DAILY 30 Days Qty: 30 3RF albuterol sulfate 90 mcg/actuation HFA aerosol inhaler 2 puff PO Q4H PRN (Reason: for wheezing) Qty: 8.5 3RF furosemide [Lasix] 20 mg tablet 10 mg PO DAILY 14 Days Qty: 7 0RF meclizine 25 mg tablet 25 mg PO BID PRN (Reason: dizziness) Qty: 14 0RF albuterol sulfate 2.5 mg /3 mL (0.083 %) solution for nebulization inhalation Q4H PRN (Reason: wheezing) nitroglycerin 0.4 mg tablet, sublingual 0 mg sublingual Dexilant 60 mg capsule,biphase delayed releas 60 mg PO DAILY cetirizine 10 mg tablet 10 mg PO DAILY atorvastatin 80 mg tablet 80 mg PO DAILY metoprolol succinate 50 mg tablet extended release 24 hr 50 mg PO DAILY amlodipine 5 mg tablet 5 mg PO DAILY aspirin 81 mg tablet,delayed release (DR/EC) 81 mg PO DAILY isosorbide mononitrate 30 mg tablet extended release 24 hr 30 mg PO QAM Trelegy Ellipta 200-62.5-25 mcg blister with device 1 inh inhalation DAILY 30 Days Qty: 60 12RF azelastine 137 mcg (0.1 %) aerosol,spray 2 spray intranasal BID 30 Days Qty: 30 6RF Rx Instructions: administer into each nostril fluticasone propionate 50 mcg/actuation spray,suspension 2 spray intranasal DAILY 30 Days Qty: 15.8 11RF melatonin 10 mg tablet 10 mg PO BEDTIME PRN nitrofurantoin macrocrystal 50 mg capsule 50 mg PO DAILY (DME) Oxygen Home Use Kit See Rx Instructions .Route Rx Instructions: As directed (DME) nebulizers [facility] See Rx Instructions .Route Rx Instructions: As directed Trulance 3 mg tablet 3 mg PO DAILY Referrals: Kathy Christopher MD [Primary Care Provider] -
[2023-02-22] MEDS: cefTRIAXone sodium 1 GM, Lidocaine HCl 1 % MPF 2.1 ML IM (13:31)
[2023-02-22] MEDS: Phenazopyridine HCL 200 MG TABLET PO (13:33)
== END 2023-02-22 13:40 | disposition home or self-care (01) ==
PROVIDERS: Emergency Provider Student in an Organized Health Care Education/Training Program; PCP Internal Medicine
DX: N30.90 Cystitis, unspecified without hematuria (principal); R10.30 Lower abdominal pain, unspecified; E11.9 Type 2 diabetes mellitus without complications; I10 Essential (primary) hypertension; E78.5 Hyperlipidemia, unspecified; Z87.891 Personal history of nicotine dependence; Z79.899 Other long term (current) drug therapy; Z79.82 Long term (current) use of aspirin
CPT/HCPCS: 36415; 80048; 81001; 85025; 87086; 96372; 99284; J0696

== ENCOUNTER 2023-03-30 17:13 | Emergency (ER) | payer OTHER, SELFPAY ==
--- NOTE | ~2023-03-30 | CT_ITS ---
EXAMINATION: CT ABDOMEN AND PELVIS WITHOUT CONTRAST CLINICAL INFORMATION: Urinary retention COMPARISON: None available. TECHNIQUE: Multidetector volumetric imaging was performed from the superior aspect of the liver through the pubic symphysis. Sagittal and coronal reformatted images were obtained on the technologist's workstation. This CT examination was performed using dose optimization techniques as appropriate, variously including the following: *Automated exposure control *Adjustment of mA and/or kV according to patient size (this includes techniques or standardized protocols for targeted exams where dose is matched to indication/reason for exam; i.e. extremities or head) *Use of iterative reconstruction technique DLP: 522 mGy-cm FINDINGS: LUNG BASES: Focal atelectatic changes both lung bases. The heart size is normal. LIVER, GALLBLADDER, AND BILIARY TREE: The liver is normal in size, shape, and attenuation. No focal hepatic lesion or biliary ductal dilatation is present. The gallbladder is unremarkable with no evidence of radiopaque gallstones, gallbladder wall thickening, or obvious pericholecystic inflammatory changes. PANCREAS: Unremarkable. SPLEEN: Unremarkable. ADRENAL GLANDS: Unremarkable. KIDNEYS AND URETERS: The kidneys are normal in size, shape, and attenuation. No hydronephrosis, hydroureter, or calculi seen. No perinephric stranding. BLADDER: There is a Qureshi's catheter in an empty bladder. GASTROINTESTINAL TRACT: There is a large amount of stool seen throughout the colon without distention. Few scattered colonic diverticuli without nodularity colitis. The small bowel loops are normal caliber. Appendix is not visualized. There is no free air or free fluid. ABDOMINAL WALL: There is lower abdominal wall surgical dariela from previous intervention. LYMPH NODES: Normal. VASCULAR: Unremarkable. PELVIC VISCERA: The uterus is midline. No adnexal mass or free fluid seen. No abnormal pelvic or inguinal lymph nodes. OSSEOUS STRUCTURES: There are degenerative disc changes with vacuum disc phenomena L5-S1 disc level. No aggressive lytic or sclerotic process seen. CT/CT abdomen pelvis wo IV con IMPRESSION: 1. Moderate constipation without obstruction. Colonic diverticulosis without diverticulitis. 2. No radiopaque urolith or hydroureteronephrosis. 3. Qureshi's catheter in an empty bladder. Fleischner guidelines were followed.
[2023-03-30 17:47] VITALS: BP 115/64; PULSE 87; RESP 16; TEMP 36.5; O2SAT 94; BMI 31.8
--- NOTE | 2023-03-30 17:51 | ED.GENADULT ---
HPI - General Adult General Chief complaint: Urogenital-Female Stated complaint: unable to urinate Time Seen by Provider: 03/30/23 21:45 Source: patient Mode of arrival: ambulatory Limitations: no limitations History of Present Illness HPI narrative: 77 yo female with PMH of UTI, pneumonia, GERD, prior brown needs for retention, urinary incontinence, COPD, IBS notes she had a brown about a year ago on and off for 2 weeks after a procedure in urology office for what sounds like urodynamics. She did not have a cath for 1 year. She went back to the urologist and on monday was started on mirabegron for incontinence. She noted right away decreased output and today has not voided since 11am she has abdominal cramps. She was supposed to ahve a CT scan due to chronic pelvic cramps but insurance denied it. MD complaint: urinary retention Onset (ago): day(s) (2) Location: abdomen and pelvis Radiation: non-radiation Severity: moderate Quality: aching Pain Consistency: constant Relieving factors: other (urination did urinate on accident when she bent over) Exacerbating factors: none Associated symptoms: denies other symptoms Treatments prior to arrival: none Related Data Home Medications Medication Instructions Recorded Confirmed atorvastatin 80 mg tablet 80 mg PO DAILY 03/21/20 11/18/21 cetirizine 10 mg tablet 10 mg PO DAILY 03/21/20 11/18/21 dexlansoprazole 60 mg 60 mg PO DAILY 03/21/20 11/18/21 capsule,biphase delayed release nitroglycerin 0.4 mg sublingual 0 mg sublingual 03/21/20 11/18/21 tablet albuterol sulfate 2.5 mg/3 mL mg inhalation Q4H PRN wheezing 04/28/20 11/18/21 (0.083 %) solution for nebulization melatonin 10 mg tablet 10 mg PO BEDTIME PRN 08/19/21 11/18/21 metoprolol succinate 50 mg 50 mg PO DAILY 08/19/21 11/18/21 tablet,extended release 24 hr amlodipine 5 mg tablet 5 mg PO DAILY 09/02/21 11/18/21 aspirin 81 mg tablet,delayed 81 mg PO DAILY 09/02/21 11/18/21 release isosorbide mononitrate 30 mg 30 mg PO QAM 09/02/21 11/18/21 tablet,extended release 24 hr nitrofurantoin macrocrystal 50 mg 50 mg PO DAILY 05/27/22 capsule Oxygen Home Use 09/16/22 nebulizers 09/16/22 plecanatide 3 mg tablet (Trulance) 3 mg PO DAILY 09/16/22 Previous Rx's Medication Instructions Recorded cholecalciferol (vitamin D3) 50 50 mcg PO DAILY 30 days #30 caps 04/08/20 mcg (2,000 unit) capsule meclizine 25 mg tablet 25 mg PO BID PRN dizziness #14 tabs 04/02/22 azelastine 137 mcg (0.1 %) nasal 2 spray intranasal BID 30 days #30 08/11/22 spray aerosol mL fluticasone fur. 200 mcg-umeclid 1 inh inhalation DAILY 30 days #60 08/11/22 62.5 mcg-vilant 25 mcg ea inhalat.powder (Trelegy Ellipta) fluticasone propionate 50 2 spray intranasal DAILY 30 days 08/11/22 mcg/actuation nasal #15.8 mL spray,suspension furosemide 20 mg tablet (Lasix) 10 mg (1/2 x 20 mg) PO DAILY 14 09/26/22 days #7 tabs albuterol sulfate 90 mcg/actuation 2 puff PO Q4H PRN for wheezing 01/10/23 aerosol inhaler #8.5 ea cefdinir 300 mg capsule 300 mg PO BID 7 days #14 caps 02/22/23 phenazopyridine 200 mg tablet 200 mg PO TID PRN pain 6 doses #6 02/22/23 (Pyridium) tabs cefuroxime axetil 250 mg tablet 250 mg PO BID 5 days #10 tabs 03/30/23 Allergies Allergy/AdvReac Type Severity Reaction Status Date / Time amoxicillin [Augmentin] Allergy Mild Rash Verified 03/30/23 17:51 clavulanic acid Allergy Mild RASH Verified 03/30/23 17:51 [From Augmentin] Review of Systems Review of Systems: Constitutional : No Weight loss, No Fever, No Chills ENT/Mouth : No sore throat, No Rhinorrhea Eyes: No Swelling, No Redness Cardiovascular : No Chest Pain, No SOB, NoEdema Respiratory : No Cough, No Sputum, No Wheezing Gastrointestinal : no Nausea, no Vomiting, no Diarrhea, positive abdominal Pain, No Hematochezia, No Melena Genitourinary : No Dysuria, No Urinary Frequency, No Hematuria, No Urgency , pos retention Musculoskeletal : No joint pain, No Myalgias, No Joint Swelling Skin : No Skin Lesions, No rash Neuro : No Weakness, No Numbness, No Dizziness, No Headache Psych : No Anxiety/Panic, No Depression Heme/Lymph: No Bruising, No Lymphadenopathy Endocrine : No Polyuria, No Polydipsia All other systems reviewed and are negative. [facility] Past Medical History Attestation statement: The following information was validated with the patient. Source: old records reviewed Medical History Bronchopneumonia Chronic rhinitis COPD (chronic obstructive pulmonary disease) Diabetes Dizziness Headache History of adenomatous polyp of colon HTN (hypertension) Hyperlipidemia Hypogammaglobulinemia Pneumonitis Surgical History S/P right coronary artery (RCA) stent placement H/O colonoscopy History of foot surgery History of toe surgery History of bunionectomy Family History Family History Mother No problems noted. Father No problems noted. Social History Social History Household Members: None Housing: Apartment Alcohol intake: never Patient Tobacco Use Status: Former Tobacco user Tobacco use type: Cigarette Advance Directives: No Advance Directives Information Provided: Yes service: No Current occupational status: retired Sexual orientation: Straight/Heterosexual Gender identity: Female Physical Exam ED Vital Signs: Vital Signs - 24 hr 03/30/23 17:47 Temperature 97.7 F Pulse Rate 87 Respiratory Rate 16 Blood Pressure 115/64 Pulse Oximetry 94 Oxygen Delivery Method Room Air BMI result Body Mass Index 31.8 Appearance: Alert. Oriented X3. No acute distress. Eyes: Pupils equal, round and reactive to light. ENT: Pharynx normal. Neck: Normal inspection. Neck supple. CVS: Normal heart rate and rhythm. Pulses normal. Respiratory: No respiratory distress. Breath sounds normal. Abdomen: Soft and mild suprapubic ttp Skin: Skin warm and dry. Normal skin color. Normal skin turgor. Extremities: No lower extremity edema. No calf ttp Neuro: Oriented X 3. No motor deficit. No sensory deficit. Course Course Course Narrative: RME- 77-year-old female presents for evaluation of lower abdominal cramping and difficulty urinating. Plan for bladder scan and UA Medications Administered Discontinued Medications Generic Name Dose Route Start Last Admin Trade Name Kat PRN Reason Stop Dose Admin Morphine Sulfate 15 mg 03/30/23 22:21 03/30/23 22:37 Morphine Sulfate Immed Release 15 Mg Tablet PO 03/30/23 22:22 15 mg ONCE ONE Administration Ondansetron HCl 4 mg 03/30/23 22:21 03/30/23 22:37 Ondansetron Odt 4 Mg Tab.Rapdis TRANSLINGU 03/30/23 22:22 4 mg ONCE ONE Administration Medical Decision Making Medical Decision Making [facility] Narrative: 77 yo female with PMH of UTI, pneumonia, GERD, prior brown needs for retention, urinary incontinence, COPD, IBS here with retention after starting overactive bladder medication - at this time will need brown has > 600 and cannot void, basic labs, UA and CT scan ordered has had cramps prior to the medication will order for possible mass vs stone. Patient has had a brown before so she is able to manage this. Differential Diagnosis Differential Diagnoses: The differential diagnosis associated with the presentation includes retention, stone Admission/Observation Consideration of admission/observation: Escalation of care including admission/observation considered improved with brown, no acute CT findings, Cr stable can be managed as outpatient Lab Data [facility] Lab Attestation statement: I reviewed the patient's lab results. UA + will start on ceftriaxone 03/30/23 22:25 03/30/23 22:25 Labs: Lab Results 03/30/23 Range/Units 22:25 WBC 8.5 (4.8-10.8) X10*3/uL RBC 3.85 L (4.20-5.50) X10*6/uL Hgb 11.3 L (12.0-16.0) g/dl Hct 34.4 L (37.0-47.0) % MCV 89.4 (80.0-98.0) fL MCH 29.4 (27.0-33.0) pg MCHC 32.8 (31.0-35.0) g/dl RDW 16.0 (11.0-16.0) % Plt Count 257 (160-400) X10*3/uL MPV 10.1 (9.4-12.3) fL Immature Gran % (Auto) 0.4 (0.0-0.4) % Neut % (Auto) 63.0 (45-73) % Lymph % (Auto) 24.4 (20-40) % [place] % (Auto) 10.6 (2-11) % Eos % (Auto) 1.4 (0-4) % Baso % (Auto) 0.2 (0-2) % Lymph # (Auto) 2.1 (1.2-4.9) X10*3/uL [place] # (Auto) 0.9 (0.1-1.2) X10*3/uL Eos # (Auto) 0.1 (0.0-0.4) X10*3/uL Baso # (Auto) 0.0 (0.0-0.2) X10*3/uL Abs Immat Gran (auto) 0.03 (0.00-0.03) X10*3/uL Absolute Neuts (auto) 5.4 (2.0-8.3) x10*3/uL Absolute Nucleated RBC 0.000 (0.0-0.012) X10*3/uL Nucleated RBC % (auto) 0.0 (0.0-0.2) /100WBC Sodium 144 (135-145) mmol/L Potassium 4.8 (3.3-5.1) mmol/L Chloride 106 (96-108) mmol/L Carbon Dioxide 26 (22-29) mmol/L Anion Gap 17 (12-20) BUN 15 (9-16) mg/dL Creatinine 0.96 (0.5-1.4) mg/dL Estim Creat Clear Calc 50.7 Estimated GFR 56 Random Glucose 102 (60-115) mg/dL Calcium 9.6 (8.4-10.2) mg/dL Magnesium 2.0 (1.6-2.6) mg/dL Total Bilirubin 0.5 (0.0-1.0) mg/dL Direct Bilirubin 0.2 (0.0-0.5) mg/dL AST 16 (5-31) U/L ALT 12 (0-31) U/L Alkaline Phosphatase 101 (39-117) U/L Total Protein 7.2 (6.5-8.0) g/dL Albumin 4.2 (3.5-5.0) g/dL Urine Color Yellow Urine Appearance Clear Urine pH 6.5 (5.0-9.0) Ur Specific [place] 1.015 (1.005-1.025) Urine Protein Negative (Neg-Trace) mg/dL Urine Glucose (UA) Negative (Negative) mg/dL Urine Ketones Negative (Negative) mg/dL Urine Blood Negative (Negative) Urine Nitrite Negative (Negative) Ur Leukocyte Esterase Moderate (2+) H (Negative) Urine RBC 0-2 (0-2) /HPF Urine WBC 21-50 H (0-5) /HPF Ur Squamous Epith Cells 0-2 (0-2) /HPF Urine Bacteria None Seen (None Seen) Hyaline Casts 0-2 (0-2) /LPF Independent Interpretation I performed an independent interpretation of an: CT Scan (no stones) Radiology Impression Discussion of test interpretation with radiology: I have reviewed the radiologist's reading. External Record Review External record reviewed: Inpatient record Prescription Management I considered prescription management with: Antibiotic Discharge Plan Discharge Clinical Impression: Acute urinary retention, Acute constipation Patient Disposition: Home, Self-Care Instructions: Constipation (ED), Brown Catheter Placement and Care (ED), Acute Urinary Retention in Women (ED) Additional Instructions: return for blocked brown, severe pain, fevers, vomiting or any other concerns. you need to see a urologist in 1 week to assess if this can be removed. you can follow up with your urologist or ours. I would stop mirabegron at this point. you had a fair amount of constipation on exam please take a stool softener colace 100mg twice a day and senna 8.6mg daily to help On a cephalosporin?antibiotic, softer bowel movements are to be expected. Call your provider if you move your bowels more than 4 times a day, your bowel movements are almost all liquid, or you get a rash.?? Prescriptions: New cefuroxime axetil 250 mg tablet 250 mg PO BID 5 Days Qty: 10 0RF No Action cholecalciferol (vitamin D3) 50 mcg (2,000 unit) capsule 50 mcg PO DAILY 30 Days Qty: 30 3RF albuterol sulfate 90 mcg/actuation HFA aerosol inhaler 2 puff PO Q4H PRN (Reason: for wheezing) Qty: 8.5 3RF cefdinir 300 mg capsule 300 mg PO BID 7 Days Qty: 14 0RF phenazopyridine [Pyridium] 200 mg tablet 200 mg PO TID PRN (Reason: pain) Qty: 6 0RF furosemide [Lasix] 20 mg tablet 10 mg PO DAILY 14 Days Qty: 7 0RF meclizine 25 mg tablet 25 mg PO BID PRN (Reason: dizziness) Qty: 14 0RF albuterol sulfate 2.5 mg /3 mL (0.083 %) solution for nebulization inhalation Q4H PRN (Reason: wheezing) nitroglycerin 0.4 mg tablet, sublingual 0 mg sublingual Dexilant 60 mg capsule,biphase delayed releas 60 mg PO DAILY cetirizine 10 mg tablet 10 mg PO DAILY atorvastatin 80 mg tablet 80 mg PO DAILY metoprolol succinate 50 mg tablet extended release 24 hr 50 mg PO DAILY amlodipine 5 mg tablet 5 mg PO DAILY aspirin 81 mg tablet,delayed release (DR/EC) 81 mg PO DAILY isosorbide mononitrate 30 mg tablet extended release 24 hr 30 mg PO QAM Trelegy Ellipta 200-62.5-25 mcg blister with device 1 inh inhalation DAILY 30 Days Qty: 60 12RF azelastine 137 mcg (0.1 %) aerosol,spray 2 spray intranasal BID 30 Days Qty: 30 6RF Rx Instructions: administer into each nostril fluticasone propionate 50 mcg/actuation spray,suspension 2 spray intranasal DAILY 30 Days Qty: 15.8 11RF melatonin 10 mg tablet 10 mg PO BEDTIME PRN nitrofurantoin macrocrystal 50 mg capsule 50 mg PO DAILY (DME) Oxygen Home Use Kit See Rx Instructions .Route Rx Instructions: As directed (DME) nebulizers [facility] See Rx Instructions .Route Rx Instructions: As directed Trulance 3 mg tablet 3 mg PO DAILY Referrals: Jevon Dougherty MD [Physician] - (call to schedule appointment in 1 week )
[2023-03-30 22:30] LABS: MANUAL DIFF FLAG NO
[2023-03-30 22:31] LABS: Basophils Percent Auto 0.2 % (0-2); Eosinophils Absolute Auto 0.1 X10*3/uL (0.0-0.4); Eosinophils Percent Auto 1.4 % (0-4); Hematocrit 34.4 % (37.0-47.0); Hemoglobin 11.3 g/dl (12.0-16.0); Imm Gran Abs Auto 0.03 X10*3/uL (0.00-0.03); Imm Gran Pct Auto 0.4 % (0.0-0.4); Lymphocytes Absolute Auto 2.1 X10*3/uL (1.2-4.9); Lymphocytes Percent Auto 24.4 % (20-40); Mean Corpuscular HGB Conc 32.8 g/dl (31.0-35.0); Mean Corpuscular Hemoglobin 29.4 pg (27.0-33.0); Mean Corpuscular Volume 89.4 fL (80.0-98.0); Mean Platelet Volume 10.1 fL (9.4-12.3); Monocytes Absolute Auto 0.9 X10*3/uL (0.1-1.2); Monocytes Percent Auto 10.6 % (2-11); Neutrophils Absolute Auto 5.4 x10*3/uL (2.0-8.3); Platelet Count 257 X10*3/uL (160-400); Red Blood Count 3.85 X10*6/uL (4.20-5.50); White Blood Count 8.5 X10*3/uL (4.8-10.8)
--- NOTE | 2023-03-30 22:31 | PC.NURSE ---
this rn placed 16 turkish brown catheter. 10ml balloon inflated. pt tolerated well. 900ml immediate output. urine note to be cloudy yellow no odor
[2023-03-30 22:32] LABS: Appearance Urine Clear; Color Urine Yellow; Glucose Urine UA Negative (Negative); Leukocyte Esterase Urine Moderate (2+) (Negative); Nitrite Urine Negative (Negative); PH 6.5 (5.0-9.0); Specific Gravity - Urine 1.015 (1.005-1.025); UMIC TRIGGER UACC YES; Urine Blood Negative (Negative); Urine Ketones Negative (Negative); Urine Protein Negative (Neg-Trace)
[2023-03-30 22:37] LABS: Bacteria Urine None Seen (None Seen); Hyaline Casts Urine 0-2 /LPF (0-2); RBC Urine 0-2 /HPF (0-2); Squamous Epithelial Cell Urine 0-2 /HPF (0-2); UACC Culture Trigger YES; WBC Urine 21-50 /HPF (0-5)
[2023-03-30] MEDS: Morphine Sulfate Immed Release 15 MG TABLET PO (22:37)
[2023-03-30] MEDS: Ondansetron ODT 4 MG TAB.RAPDIS TRANSLINGU (22:37)
[2023-03-30 22:46] LABS: Alanine Aminotransferase 12 U/L (0-31); Albumin Level 4.2 g/dL (3.5-5.0); Alkaline Phosphatase 101 U/L (39-117); Anion Gap 17 (12-20); Aspartate Amino Transferase 16 U/L (5-31); Bilirubin Direct 0.2 mg/dL (0.0-0.5); Bilirubin Total 0.5 mg/dL (0.0-1.0); Blood Urea Nitrogen 15 mg/dL (9-16); Calcium 9.6 mg/dL (8.4-10.2); Carbon Dioxide 26 mmol/L (22-29); Chloride 106 mmol/L (96-108); Creatinine Clr Calc Pharmacy 50.7; Estimated Glomerular Filt Rate 56; Glucose Random 102 mg/dL (60-115); Potassium 4.8 mmol/L (3.3-5.1); Sodium 144 mmol/L (135-145); Total Protein 7.2 g/dL (6.5-8.0)
[2023-03-30 23:25] VITALS: BP 130/56; PULSE 87; RESP 16; O2SAT 90
[2023-03-30 23:29] VITALS: O2SAT 92
--- NOTE | 2023-03-30 23:40 | PC.NURSE ---
pt medicated according to mar. pt provided with sandwich. pt calm and cooperative
--- NOTE | 2023-03-31 00:05 | MHC.EDTECH ---
Tamela called @0004 for a BLS transfer back home,ETA of 1 hour.
--- NOTE | 2023-03-31 00:21 | PC.NURSE ---
PT TOLERATED CEFTIN WELL NO S/S OF REACTION. LEG BAG PUT IN PLACE PRIOR TO DISCHARGE PT AWAITING TRANSPORT BACK TO HOME
--- NOTE | 2023-03-31 00:37 | PC.NURSE ---
REPORT GIVEN TO EMS PRIOR TO TRANSPORT. PT PROVIDED WITH DISCHARGE PACKET. PT VERBALIZED UNDERSTANDING OF DISCHARGE PLAN. LEG BAG DRAINING WELL. PT CALM AND COOPERATIVE. PT DENIES PAIN
== END 2023-03-31 00:51 | disposition home or self-care (01) ==
PROVIDERS: Physician Assistant; Emergency Provider Emergency Medicine; PCP Internal Medicine
DX: R33.9 Retention of urine, unspecified (principal); K59.00 Constipation, unspecified; E11.9 Type 2 diabetes mellitus without complications; I10 Essential (primary) hypertension; E78.5 Hyperlipidemia, unspecified; Z87.891 Personal history of nicotine dependence; Z79.899 Other long term (current) drug therapy; Z79.82 Long term (current) use of aspirin
CPT/HCPCS: 36415; 51701; 51702; 51798; 74176; 80048; 80076; 81001; 83735; 85025; 87086; 99284; 99285

== ENCOUNTER 2023-04-17 12:49 | Outpatient (AMB) | payer OTHER, SELFPAY ==
[2023-04-17 13:03] VITALS: BP 122/67; PULSE 81; O2SAT 94; BMI 31.0
--- NOTE | 2023-04-17 13:03 | A.OFFVIS_ITS ---
Intake Vital Signs 04/17/23 13:03 Height 5 ft 4 in Weight 180 lb 12.465 oz BMI 31.0 BP 122/67 Blood Pressure Location Rt brachial Position Sitting Pulse 81 Pulse Source Doppler Pulse Oximetry (%) 94 Oxygen Delivery Method Room Air Intake Visit Reasons: Shortness of breath Allergies amoxicillin [Augmentin] Allergy (Mild, Verified 04/17/23 13:04) Rash clavulanic acid [From Augmentin] Allergy (Mild, Verified 04/17/23 13:04) RASH HPI HPI Comments History of Present Illness Details The patient is a 77-year-old woman known allergic rhinitis in moderate persistent asthma. 08/11/2022 the patient is here for a pulmonary follow-up visit. She continues to have shortness of breath. Qxug-ms-wdtxfwmw severity. She finds that the oxygen Is helpful when she needs it more than before. Again, we talked about her CT scan demonstrating some degree of pneumonitis in the upper lung zones. Her blood work was all reassuring without any evidence of any connective tissue disease or hyper sensitivity reactions. And actually her respiratory exam is improved. Therefore the prednisone likely improved her symptoms. In the meantime the patient did develop sinusitis. She went to see a primary care doctor she was given a Z-Talib. However, she still having hard time with her nasal passages and upper airway. Therefore likely that her nasal congestion is aggravating her breathing. Therefore will going to go ahead and give her a longer course of antibiotics and also nasal sprays to try to keep the nasal passages patent. In the meantime will going to optimize respiratory therapy by increasing her Trelegy from 100-200 mcg daily. I am hopeful with these changes she notices improvement with time. no need for any diagnostic interventions since she has had bronchoscopies or biopsies to assess the pneumonitis. It was actually mild in the upper lung zones. And at this point with her normal respiratory exam likely improving. Will consider further imaging studies in the future. 09/16/2022 the patient is here for pulmon vic follow-up visit. Overall she is doing better. She responded well to the increasing the Trelegy inhaler. She has also completed the antibiotics and has not been on any prednisone. She is concerned about her allergies. She does take Zyrtec that she uses the morning. The patient does have allergies noted on her allergy testing. She will have a rugs removed hopefully in the near future. In the meantime she can start Singulair to help with her allergies and her asthma. The patient also has an air purifier running in her room that is also going to be helpful in decreasing her allergy symptoms. Patient otherwise is without any other complaints. Will follow-up in 4-6 months. 10/14/2022 the patient is here for a pul onary follow-up visit. The patient overall doing well from a respiratory status. She continues use the Trelegy with good effect. She also has been using her oxygen with activity. The patient unfortunately did develop worsening shortness of breath and chest dis comfort went to the ER. There she had a chest x-ray demonstrating no acute disease. She had elevated brain atretic peptide the patient was given diuretics. She did feel better after worse. Now she has the appointment with her securities lending trader because she is concerned about her heart. She has not had an echocardiogram. She did have a cardiac catheterization back in 2014 which she had a stent to the RCA. Overall the patient is doing well. Will follow-up in 6 months. 12/09/2022 patient is here for a pulmonary follow-up visit. The patient overall is feeling better from a respiratory status. She continues use her respiratory medications as prescribed. Her cardiac status is now better. She has not required the oxygen as regularly as she was using it before. although, she still having dyspnea on exertion moderate severity. Also complains of a intermittent cough. Will go ahead and request pulmonary function studies and I do believe the patient will be an excellent candidate for pulmonary rehabilitation at this point since she is starting to improve. Her last chest x-rays back in September without any acute disease. The patient will continue with her respiratory therapy and will reassess her oxygen needs during the next visit in 6 months. 04/17/2023 the patient is here for a pul monary follow-up visit. Overall the patient has been doing well. She continues on the Trelegy inhaler. She is getting raspiness in the voice. Will go ahead and decrease her Trelegy to the 100 mcg dose. The patient has not required her rescue inhaler. Overall she is doing well. She is concerned about urinary incontinence specially when she is coughing. On will refer her to Urology in [place]. She has seen other people in the past. [facility] Medical History (Updated 04/17/23 @ 13:14 by Maycol Infante MD) Incontinence in female History of adenomatous polyp of colon Pneumonitis Bronchopneumonia Hypogammaglobulinemia Chronic rhinitis Dizziness Headache Hyperlipidemia HTN (hypertension) Diabetes COPD (chronic obstructive pulmonary disease) Surgical History S/P right coronary artery (RCA) stent placement H/O colonoscopy History of foot surgery History of toe surgery History of bunionectomy Family History Mother No problems noted. Father No problems noted. Social History Household Members: None Housing: Apartment Alcohol intake: never Patient Tobacco Use Status: Former Tobacco user Tobacco use type: Cigarette service: No Current occupational status: retired Sexual orientation: Straight/Heterosexual Gender identity: Female Review of Systems Const Denies chills, Denies fever(s), Denies headache(s) and Denies weakness Eyes Reports no additional complaints ENT Denies dysphagia, Denies headache(s), Denies hoarseness, Reports nasal congestion, Reports nasal discharge, Reports nasal obstruction and Denies sore throat Card Reports no additional complaints, Denies dyspnea and Reports dyspnea on exertion Resp Denies chest congestion, Reports cough, Denies hemoptysis, Denies pain with cough, Denies dyspnea and Reports dyspnea on exertion GI Denies dysphagia Reports urinary incontinence Musc Reports back pain, Denies muscle weakness, Denies numbness and Denies tingling Neuro Denies headache(s), Denies focal weakness, Denies numbness, Denies tingling, Denies paresthesias and Denies weakness Physical Exam Vital Signs: Last Vital Signs Pulse 81 04/17/23 13:03 BP 122/67 04/17/23 13:03 Pulse Ox 94 04/17/23 13:03 Oxygen Delivery Method Room Air 04/17/23 13:03 BMI result Body Mass Index 31.0 Const General: alert and tired appearing Neck Neck: Yes normal visual inspection, Yes full ROM and Yes no lymphadenopathy Chest Chest palpation & inspection: normal inspection of the chest Resp Effort & Inspection: normal respiratory effort Auscultation: diminished lung sounds Cardio Rate: regular rate Rhythm: regular rhythm Heart sounds: S1 normal heart sound present and S2 normal heart sound present GI Palpation (GI): Soft to palpation and nontender Auscultation: normal bowel sounds General: Yes no CVA tenderness Back/Spine/Pelvis Back: no CVA tenderness Skin General skin exam: rashes and/or lesions noted Extrem General: Yes no clubbing, cyanosis or edema Assessment & Plan Assessment & Plan (1) COPD (chronic obstructive pulmonary disease): Code(s): J44.9 - Chronic obstructive pulmonary disease, unspecified Qualifiers: COPD type: chronic bronchitis Chronic bronchitis type: mixed simple and mucopurulent Qualified Code(s): J41.8 - Mixed simple and mucopurulent chronic bronchitis (2) Chronic rhinitis: Code(s): J31.0 - Chronic rhinitis (3) GERD (gastroesophageal reflux disease): Code(s): K21.9 - Gastro-esophageal reflux disease without esophagitis Qualifiers: Esophagitis presence: without esophagitis Qualified Code(s): K21.9 - Gastro-esophageal reflux disease without esophagitis (4) Hypogammaglobulinemia: Code(s): D80.1 - Nonfamilial hypogammaglobulinemia Plan decrease Trelegy 100 daily Astelin nasal spray Fluticasone nasal spray Singulair PM short-acting beta agonist as needed continue Zyrtec as needed Continue oxygen with activity. POC Urology referral F/U 6-8 months Orders: Referrals Urology Referral R32 - Unspecified urinary incontinence Medications: New lflutyfjoqi-gpafynerl-lxuxnebj 100-62.5-25 mcg (Trelegy Ellipta) 1 inh inhalation DAILY 30 days 60 ea 11RF J44.9 - Chronic obstructive pulmonary disease, unspecified Discontinued zhutqvaozew-qcfqhfrsy-kmrxlcow 200-62.5-25 mcg (Trelegy Ellipta) Discontinued Reason: Doctor's Order 1 inh inhalation DAILY 30 days 60 ea 12RF Coding Level of Care Code Est Pt Level 4 (83670) Diagnoses Mixed simple and mucopurulent chronic bronchitis J41.8 COPD type: chronic bronchitis Chronic bronchitis type: mixed simple and mucopurulent Chronic rhinitis J31.0 Gastroesophageal reflux disease without esophagitis K21.9 Esophagitis presence: without esophagitis Hypogammaglobulinemia D80.1 Time Spent (min) 16
== END 2023-04-17 13:18 | disposition home or self-care (01) ==
PROVIDERS: PCP Internal Medicine; Visit Provider Hospitalist
DX: J41.8 Mixed simple and mucopurulent chronic bronchitis (principal); J31.0 Chronic rhinitis; K21.9 Gastro-esophageal reflux disease without esophagitis; D80.1 Nonfamilial hypogammaglobulinemia
CPT/HCPCS: 99214

== ENCOUNTER → 2023-04-17 12:49 | Outpatient (BNVA) | payer OTHER, SELFPAY | PROVIDERS: Visit Provider Hospitalist | DX: J41.8 Mixed simple and mucopurulent chronic bronchitis (principal); J31.0 Chronic rhinitis; K21.9 Gastro-esophageal reflux disease without esophagitis; D80.1 Nonfamilial hypogammaglobulinemia | CPT/HCPCS: 99212 ==

== ENCOUNTER 2023-05-09 14:55 | Outpatient (REF) | payer OTHER, SELFPAY | END 2023-05-09 14:56 | disposition home or self-care (01) | LOC: HO.LNP 14:55 | PROVIDERS: PCP Internal Medicine; Visit Provider Nurse Practitioner Family | DX: N39.0 Urinary tract infection, site not specified (principal); N39.46 Mixed incontinence; I10 Essential (primary) hypertension; E78.5 Hyperlipidemia, unspecified; Z87.898 Personal history of other specified conditions; Z79.899 Other long term (current) drug therapy | CPT/HCPCS: 51798; 81003; 87086; 99202 ==

== ENCOUNTER 2023-05-09 14:55 | Outpatient (AMB) | payer OTHER, SELFPAY ==
--- NOTE | 2023-05-09 14:58 | MHC.OFFVIS ---
Intake Intake Visit Reasons: Unspecified urinary incontinence Intake Note: New Patient presents for initial visit for urinary incontinence Urology Medications: Blood Thinner: aspirin Executive Pilot Required: No Accompanied by: Self / Same As Patient Allergies amoxicillin [Augmentin] Allergy (Mild, Verified 05/09/23 17:46) Rash clavulanic acid [From Augmentin] Allergy (Mild, Verified 05/09/23 17:46) RASH Medication List - Last Reconciled 05/09/23 by NICOLETTE JohnsP- albuterol sulfate mg inhalation Q4H PRN albuterol sulfate 90 mcg/actuation 2 puffs PO Q4H PRN amlodipine 5 mg PO DAILY aspirin 81 mg PO DAILY atorvastatin 80 mg PO DAILY azelastine 2 sprays intranasal BID 30 days cetirizine 10 mg PO DAILY cholecalciferol (vitamin D3) 50 mcg PO DAILY 30 days dexlansoprazole 60 mg PO DAILY fluticasone propionate 50 mcg/actuation 2 sprays intranasal DAILY 30 days nsytuigaurw-ebxtdmbpd-gtpznccl 100-62.5-25 mcg (Trelegy Ellipta) 1 inh inhalation DAILY 30 days furosemide (Lasix) 10 mg (1/2 x 20 mg) PO DAILY 14 days isosorbide mononitrate ER 30 mg PO QAM meclizine 25 mg PO BID PRN melatonin 10 mg PO BEDTIME PRN metoprolol succinate ER 50 mg PO DAILY nebulizers As directed nitrofurantoin macrocrystal 100 mg PO BID 10 days nitroglycerin 0 mg sublingual Oxygen Home Use As directed plecanatide (Trulance) 3 mg PO DAILY HPI HPI Comments History of Present Illness Details Shea is a very pleasant 77 year old female patient of Dr. Rizo. She has a history of pneumonitis, bronchopneumonia, chronic rhinitis, dizziness, headaches, hyperlipidemia, hypertension, diabetes, and COPD. She presents to the office today as a new patient for lower urinary symptoms. In discussion with the patient today she reports having followed up with a Urologist at [facility] however does not feel this has been helpful. She discusses having been prescribed Myrbetriq for her mixed urinary incontinence. She states she took one dose of Myrbetriq and experienced urinary retention at which time she went to the ER and a brown catheter was placed. She reports having had brown for five days however now has been able to void independently. In office urinalysis results reviewed with the patient today. 3+ leukocytes. When asked she does report foul-smelling urine. She discusses her ongoing issues with her mixed urinary incontinence. She otherwise denies nocturia, hematuria, dysuria, foul smelling urine, changes to urinary stream, flank pain, fever, and or chills. PVR 46ml's. She discusses her longstanding history of constipation. She reports having been on Linzess prior however has since ran out of refills. She discusses following up with Gastroenterology for a endoscopy and colonoscopy however is currently undergoing cardiac clearance. In review of patient's chart it appears CT KUB was ordered during episode of retention. These results reviewed with the patient today. Bilateral kidneys are normal in size, shape, and attenuation. No hydronephrosis, hydroureter, and or calculi seen. Brown catheters in place in the bladder is empty. She otherwise offers no issues or concerns at this time. [facility] Medical History Incontinence in female History of adenomatous polyp of colon Pneumonitis Bronchopneumonia Hypogammaglobulinemia Chronic rhinitis Dizziness Headache Hyperlipidemia HTN (hypertension) Diabetes COPD (chronic obstructive pulmonary disease) Surgical History S/P right coronary artery (RCA) stent placement H/O colonoscopy History of foot surgery History of toe surgery History of bunionectomy Family History Mother No problems noted. Father No problems noted. Household Members: None Housing: Apartment Alcohol intake: never Patient Tobacco Use Status: Former Tobacco user Tobacco use type: Cigarette service: No Current occupational status: retired Sexual orientation: Straight/Heterosexual Gender identity: Female Review of Systems Const Reports as per HPI Eyes Reports no additional complaints ENT Reports as per HPI Card Reports as per HPI Resp Reports as per HPI GI Reports as per HPI Reports as per HPI Musc Reports no additional complaints Neuro Reports as per HPI Psych Reports no additional complaints Endo Reports no additional complaints Pradeep/Lymph Reports no additional complaints Aller/Immun Reports no additional complaints Physical Exam Const General: cooperative, healthy appearing, comfortable, no acute distress, well developed, alert and awake Orientation/consciousness: patient oriented x3 Limitations: no limitations HEENT Head: Yes normal to inspection, Yes normocephalic and Yes atraumatic Ears: hearing grossly normal bilaterally Eyes General: appearance normal, both eyes and all related structures Neck Neck: Yes normal visual inspection and Yes trachea midline Chest Chest palpation & inspection: normal inspection of the chest Resp Effort & Inspection: normal respiratory effort and able to speak in complete sentences Cardio Rate: regular rate GI Inspection: Yes normal to inspection General: Yes no CVA tenderness Back/Spine/Pelvis Back: no CVA tenderness Skin General skin exam: no rashes or lesions noted Neuro General: patient oriented x3 Extrem General: Yes normal to inspection Psych Appearance: grossly normal and well kempt Mental Status: mental status grossly normal Speech and movement: Normal speech and movement present and Clear speech present Affect: normal affect Attitude: cooperative Thought process: Normal thought process present Thought content: Normal thought content present Insight: Fair insight present (Psych) Judgement: Fair judgement present (Psych) Office Procedures Post Void Residual Post Residual Void Post Void Residual (PVR): 46 [id number] Void Residual by ultrasound Results AMB Urinalysis, Automated UA Leukoctes 500 Haritha/uL Last Edit by [employer] on 05/09/23 15:30 UA Nitrite Negative Last Edit by [employer] on 05/09/23 15:30 UA Urobilinogen 0.2 mg/dL Last Edit by [employer] on 05/09/23 15:30 UA Protein 15 mg/dL Last Edit by [employer] on 05/09/23 15:30 UA pH 6.0 Last Edit by [employer] on 05/09/23 15:30 UA Blood 10 Jefe/uL Last Edit by [employer] on 05/09/23 15:30 UA Specific Beatty 1.015 Last Edit by [employer] on 05/09/23 15:30 UA Ketone Negative Last Edit by [employer] on 05/09/23 15:30 UA Bilirubin 0 mg/dL Last Edit by [employer] on 05/09/23 15:30 UA Glucose 0 mg/dL Last Edit by [employer] on 05/09/23 15:30 Results Reviewed Results Reviewed: Laboratory Last Values Urine pH (Auto) 6.0 05/09/23 15:11 Specific Beatty (Auto) 1.015 05/09/23 15:11 Urine Protein (Auto) 15 mg/dL 05/09/23 15:11 Glucose (UA)(Auto) 0 mg/dL 05/09/23 15:11 Urine Ketones (Auto) Negative 05/09/23 15:11 Urine Blood (Auto) 10 Jefe/uL 05/09/23 15:11 Urine Nitrite (Auto) Negative 05/09/23 15:11 Urine Bilirubin (Auto) 0 mg/dL 05/09/23 15:11 Urine Urobilinogen (Auto) 0.2 mg/dL 05/09/23 15:11 Leukocyte Esterase (Auto) 500 Haritha/uL 05/09/23 15:11 Date of Service: 03/30/23 EXAMINATION: CT ABDOMEN AND PELVIS WITHOUT CONTRAST FINDINGS: LUNG BASES: Focal atelectatic changes both lung bases. The heart size is normal. LIVER, GALLBLADDER, AND BILIARY TREE: The liver is normal in size, shape, and attenuation. No focal hepatic lesion or biliary ductal dilatation is present. The gallbladder is unremarkable with no evidence of radiopaque gallstones, gallbladder wall thickening, or obvious pericholecystic inflammatory changes. PANCREAS: Unremarkable. SPLEEN: Unremarkable. ADRENAL GLANDS: Unremarkable. KIDNEYS AND URETERS: The kidneys are normal in size, shape, and attenuation. No hydronephrosis, hydroureter, or calculi seen. No perinephric stranding. BLADDER: There is a Brown's catheter in an empty bladder. GASTROINTESTINAL TRACT: There is a large amount of stool seen throughout the colon without distention. Few scattered colonic diverticuli without nodularity colitis. The small bowel loops are normal caliber. Appendix is not visualized. There is no free air or free fluid. ABDOMINAL WALL: There is lower abdominal wall surgical dariela from previous intervention. LYMPH NODES: Normal. VASCULAR: Unremarkable. PELVIC VISCERA: The uterus is midline. No adnexal mass or free fluid seen. No abnormal pelvic or inguinal lymph nodes. OSSEOUS STRUCTURES: There are degenerative disc changes with vacuum disc phenomena L5-S1 disc level. No aggressive lytic or sclerotic process seen. IMPRESSION: 1. Moderate constipation without obstruction. Colonic diverticulosis without diverticulitis. 2. No radiopaque urolith or hydroureteronephrosis. 3. Brown's catheter in an empty bladder. Assessment & Plan Assessment & Plan (1) Mixed stress and urge urinary incontinence: Code(s): N39.46 - Mixed incontinence (2) H/O urinary retention: Code(s): Z87.898 - Personal history of other specified conditions (3) Urinary tract infection: Code(s): N39.0 - Urinary tract infection, site not specified Plan In office urinalysis results reviewed with the patient today; as noted above; will send for urine culture. Recent CT KUB results reviewed with the patient today; as noted above Start Macrobid as discussed and prescribed. Discussed at length potential causes for lower urinary tract symptoms patient has been experiencing. Discussed pelvic floor therapy and vaginal weights at length. Discussed bladder triggers/irritants. Discussed and stressed UTI prevention with D mannose supplement, vitamin-C, increasing fluid intake, behavioral therapy with timed voiding, perineal hygiene and postcoital voiding, and management of constipation with stool softeners and increased fiber intake. Continue to follow up with GI to assist with management of constipation Follow-up in 1 month with PVR; or sooner with any issues, concerns, and or questions. Orders: Orders AMB Urinalysis Automated Today Z13.9 - Encounter for screening, unspecified Urine Culture Today N39.0 - Urinary tract infection, site not specified AMB Post Void Residual by ultrasound Today R39.15 - Urgency of urination Medications: New nitrofurantoin macrocrystal must administer with a meal/food 100 mg PO BID 10 days 20 caps 0RF N39.0 - Urinary tract infection, site not specified Patient Instructions: The patient had an opportunity to ask questions regarding the treatment plan. All questions were answered. Physical exam, labs, and imaging were discussed and reviewed in detail. As well as risks, benefits, and discussion of treatment choices. No major barriers to understanding were identified. The patient expressed understanding and agreement with the above treatment plan. The patient was made aware they should contact our office by phone for worsening of their current condition, the appearance of new symptoms, or with any questions or concerns. Compliance is encouraged with any medications and follow up testing that is ordered. It is a privilege to be allowed the opportunity to participate in? your urological care.? Again, if you have any questions or concerns If you have any questions or concerns please do not hesitate to contact me. The office is [phone]. This note is constructed using voice recognition software. While every effort has been made to ensure accuracy inspector outside steam distribution errors may have been included. Yours sincerely, JAYLA Johns Coding Level of Care Code New Pt Level 4 (06887) Diagnoses Mixed stress and urge urinary incontinence N39.46 H/O urinary retention Z87.898 Acute cystitis without hematuria N39.0 CPT Codes Post Residual Void - PVR CPT Code: 42531-Ggjx Void Residual by ultrasound ([id number])
== END 2023-05-09 15:57 | disposition home or self-care (01) ==
PROVIDERS: PCP Internal Medicine; Visit Provider Nurse Practitioner Family
DX: N39.46 Mixed incontinence (principal); Z87.898 Personal history of other specified conditions; N39.0 Urinary tract infection, site not specified; Z13.9 Encounter for screening, unspecified
CPT/HCPCS: 99204

== ENCOUNTER 2023-06-07 11:15 | Outpatient (AMB) | payer OTHER, SELFPAY ==
--- NOTE | 2023-06-07 12:02 | A.OFFVIS_ITS ---
Intake Intake Visit Reasons: 1m/PVR Intake Note: New Patient presents for initial visit for urinary incontinence Urology Medications: none Blood Thinner: aspirin PVR: 18ml's Jacquard Lace Weaver Required: No Accompanied by: Self / Same As Patient Allergies amoxicillin [Augmentin] Allergy (Mild, Verified 06/08/23 22:16) Rash clavulanic acid [From Augmentin] Allergy (Mild, Verified 06/08/23 22:16) RASH Medication List - Last Reconciled 06/08/23 by VLADIMIR Johns-JEREMY albuterol sulfate mg inhalation Q4H PRN albuterol sulfate 90 mcg/actuation 2 puffs PO Q4H PRN amlodipine 5 mg PO DAILY aspirin 81 mg PO DAILY atorvastatin 80 mg PO DAILY azelastine 2 sprays intranasal BID 30 days cetirizine 10 mg PO DAILY cholecalciferol (vitamin D3) 50 mcg PO DAILY 30 days dexlansoprazole 60 mg PO DAILY fluticasone propionate 50 mcg/actuation 2 sprays intranasal DAILY 30 days yfdsyloedos-dysxyflup-ttgfszdv 100-62.5-25 mcg (Trelegy Ellipta) 1 inh inhalation DAILY 30 days furosemide (Lasix) 10 mg (1/2 x 20 mg) PO DAILY 14 days isosorbide mononitrate ER 30 mg PO QAM meclizine 25 mg PO BID PRN melatonin 10 mg PO BEDTIME PRN metoprolol succinate ER 50 mg PO DAILY nebulizers As directed nitroglycerin 0 mg sublingual Oxygen Home Use As directed plecanatide (Trulance) 3 mg PO DAILY HPI HPI Comments History of Present Illness Details Shea is a very pleasant 77 year old female patient of Dr. Rizo. She has a history of pneumonitis, bronchopneumonia, chronic rhinitis, dizziness, headaches, hyperlipidemia, hypertension, diabetes, and COPD. She presents to the office today for follow-up. Of note, patient was seen approximately 1 month ago as a new patient for lower urinary symptoms at which time she was noted to have 3+ leukocytes and reporting lower urinary tract symptoms of urinary urgency and urinary frequency therefore she was treated for a presumed urinary tract infection. However, urine culture reported with no growth. In discussion with the patient today she reports feeling lower urinary tract symptoms have improved since completing antibiotic therapy. She does continue to report mixed urinary incontinence however does not find this bothersome at this time. She discusses her hesitancy with regards to overactive bladder medications as she had a bad experience with Myrbetriq. She discusses having had episode of urinary retention. She otherwise denies nocturia, hematuria, dysuria, foul smelling urine, changes to urinary stream, flank pain, fever, and or chills. In office urinalysis results reviewed with the patient today. PVR 18 ml's. She discusses her longstanding history of constipation. She reports having been on Linzess prior however has since ran out of refills. She discusses following up with Gastroenterology for a endoscopy and colonoscopy however is currently undergoing cardiac clearance. She otherwise offers no issues or concerns at this time. [facility] Medical History Incontinence in female History of adenomatous polyp of colon Pneumonitis Bronchopneumonia Hypogammaglobulinemia Chronic rhinitis Dizziness Headache Hyperlipidemia HTN (hypertension) Diabetes COPD (chronic obstructive pulmonary disease) Surgical History S/P right coronary artery (RCA) stent placement H/O colonoscopy History of foot surgery History of toe surgery History of bunionectomy Family History Mother No problems noted. Father No problems noted. Social History Household Members: None Housing: Apartment Alcohol intake: never Patient Tobacco Use Status: Former Tobacco user Tobacco use type: Cigarette service: No Current occupational status: retired Sexual orientation: Straight/Heterosexual Gender identity: Female Review of Systems Const Reports as per HPI Eyes Reports no additional complaints ENT Reports as per HPI Card Reports as per HPI Resp Reports as per HPI GI Reports as per HPI Reports as per HPI Musc Reports no additional complaints Neuro Reports as per HPI Psych Reports no additional complaints Endo Reports no additional complaints Pradeep/Lymph Reports no additional complaints Aller/Immun Reports no additional complaints Physical Exam Const General: cooperative, healthy appearing, comfortable, no acute distress, well developed, alert and awake Orientation/consciousness: patient oriented x3 Limitations: no limitations HEENT Head: Yes normal to inspection, Yes normocephalic and Yes atraumatic Ears: hearing grossly normal bilaterally Eyes General: appearance normal, both eyes and all related structures Neck Neck: Yes normal visual inspection and Yes trachea midline Chest Chest palpation & inspection: normal inspection of the chest Resp Effort & Inspection: normal respiratory effort and able to speak in complete sentences Cardio Rate: regular rate GI Inspection: Yes normal to inspection General: Yes no CVA tenderness Back/Spine/Pelvis Back: no CVA tenderness Skin General skin exam: no rashes or lesions noted Neuro General: patient oriented x3 Extrem General: Yes normal to inspection Psych Appearance: grossly normal and well kempt Mental Status: mental status grossly normal Speech and movement: Normal speech and movement present and Clear speech present Affect: normal affect Attitude: cooperative Thought process: Normal thought process present Thought content: Normal thought content present Insight: Fair insight present (Psych) Judgement: Fair judgement present (Psych) Results AMB Urinalysis, Automated UA Leukoctes 500 Haritha/uL Last Edit by [employer] on 06/07/23 12:22 UA Nitrite Negative Last Edit by [employer] on 06/07/23 12:22 UA Urobilinogen 0.2 mg/dL Last Edit by [employer] on 06/07/23 12:22 UA Protein 15 mg/dL Last Edit by [employer] on 06/07/23 12:22 UA pH 6.0 Last Edit by [employer] on 06/07/23 12:22 UA Blood 0 Jefe/uL Last Edit by [employer] on 06/07/23 12:22 UA Specific [place] 1.015 Last Edit by [employer] on 06/07/23 12:22 UA Ketone Negative Last Edit by [employer] on 06/07/23 12:22 UA Bilirubin 0 mg/dL Last Edit by [employer] on 06/07/23 12:22 UA Glucose 0 mg/dL Last Edit by [employer] on 06/07/23 12:22 Results Reviewed Results Reviewed: Laboratory Last Values Urine pH (Auto) 6.0 06/07/23 12:16 Specific [place] (Auto) 1.015 06/07/23 12:16 Urine Protein (Auto) 15 mg/dL 06/07/23 12:16 Glucose (UA)(Auto) 0 mg/dL 06/07/23 12:16 Urine Ketones (Auto) Negative 12/20/23 12:16 Urine Blood (Auto) 0 Jefe/uL 06/07/23 12:16 Urine Nitrite (Auto) Negative 06/07/23 12:16 Urine Bilirubin (Auto) 0 mg/dL 06/07/23 12:16 Urine Urobilinogen (Auto) 0.2 mg/dL 06/07/23 12:16 Leukocyte Esterase (Auto) 500 Haritha/uL 06/07/23 12:16 Assessment & Plan Assessment & Plan (1) Mixed stress and urge urinary incontinence: Code(s): N39.46 - Mixed incontinence (2) H/O urinary retention: Code(s): Z87.898 - Personal history of other specified conditions (3) Urinary tract infection: Code(s): N39.0 - Urinary tract infection, site not specified Plan In office urinalysis results reviewed with the patient today; as noted above PVR 18ml's . Discussed pelvic floor therapy and vaginal weights at length. Discussed bladder triggers/irritants. She currently denies any bothersome urinary issues or concerns at this time Discussed and stressed UTI prevention with D mannose supplement, vitamin-C, increasing fluid intake, behavioral therapy with timed voiding, perineal hygiene and postcoital voiding, and management of constipation with stool softeners and increased fiber intake. Continue to follow up with GI to assist with management of constipation Follow-up in 3 month with PVR; or sooner with any issues, concerns, and or questions. Orders: Orders AMB Urinalysis Automated 06/07/23 Z13.9 - Encounter for screening, unspecified Patient Instructions: The patient had an opportunity to ask questions regarding the treatment plan. All questions were answered. Physical exam, labs, and imaging were discussed and reviewed in detail. As well as risks, benefits, and discussion of treatment choices. No major barriers to understanding were identified. The patient expressed understanding and agreement with the above treatment plan. The patient was made aware they should contact our office by phone for worsening of their current condition, the appearance of new symptoms, or with any questions or concerns. Compliance is encouraged with any medications and follow up testing that is ordered. It is a privilege to be allowed the opportunity to participate in? your urological care.? Again, if you have any questions or concerns If you have any questions or concerns please do not hesitate to contact me. The office is [phone]. This note is constructed using voice recognition software. While every effort has been made to ensure accuracy keg inspector errors may have been included. Yours sincerely, JAYLA Johns Coding Level of Care Code Est Pt Level 3 (14059) Diagnoses Mixed stress and urge urinary incontinence N39.46 H/O urinary retention Z87.898 Acute cystitis without hematuria N39.0
== END 2023-06-07 12:27 | disposition home or self-care (01) ==
PROVIDERS: PCP Internal Medicine; Visit Provider Nurse Practitioner Family
DX: N39.46 Mixed incontinence (principal); Z87.898 Personal history of other specified conditions; N39.0 Urinary tract infection, site not specified
CPT/HCPCS: 99213

== ENCOUNTER → 2023-06-07 11:15 | Outpatient (BNVA) | payer OTHER, SELFPAY | PROVIDERS: PCP Internal Medicine; Visit Provider Nurse Practitioner Family | DX: N39.46 Mixed incontinence (principal); N39.0 Urinary tract infection, site not specified; Z87.898 Personal history of other specified conditions | CPT/HCPCS: 81003; 99212 ==

== ENCOUNTER 2023-07-19 10:27 | Outpatient (AMB) | payer OTHER, SELFPAY ==
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
[2023-07-19 10:56] VITALS: PULSE 89; O2SAT 95; BMI 30.9
== END 2023-07-19 11:15 | disposition home or self-care (01) ==
PROVIDERS: PCP Internal Medicine; Visit Provider Hospitalist
DX: J41.8 Mixed simple and mucopurulent chronic bronchitis (principal); K21.9 Gastro-esophageal reflux disease without esophagitis; D80.1 Nonfamilial hypogammaglobulinemia
CPT/HCPCS: 99214

== ENCOUNTER 2023-07-19 13:07 | Outpatient (REF) | payer OTHER, SELFPAY ==
--- NOTE | ~2023-07-19 | MM_ITS ---
EXAMINATION: MM SCREENING DIGITAL BREAST TOMOSYNTHESIS, BILATERAL CLINICAL INFORMATION: Screening. Asymptomatic. COMPARISON: Mammography: This study is compared with prior exams dating back to 2010. TECHNIQUE: Digital breast tomosynthesis is performed in both the craniocaudal and mediolateral oblique views along with computer-aided detection (CAD). Synthesized 2D images are generated from the tomosynthesis. FINDINGS: There are scattered areas of fibroglandular density (ACR BI-RADS breast composition Category b). There are no significant masses, abnormal calcifications, or other abnormalities. MM/MM tomosynthesis screening BI IMPRESSION: No mammographic evidence of malignancy. ASSESSMENT: BI-RADS BI-RADS 1 - Negative RECOMMENDATION: Routine annual mammography screening. 1 year F/U This examination should not preclude the clinical evaluation of a suspicious palpable abnormality. This patient's information was entered into a reminder system with a target due date for their next mammogram.
== END 2023-07-19 13:08 | disposition home or self-care (01) ==
LOC: HO.MAMMO 13:07
PROVIDERS: PCP Internal Medicine; Visit Provider Internal Medicine
DX: Z12.31 Encounter for screening mammogram for malignant neoplasm of breast (principal)
CPT/HCPCS: 77063; 77067; 99212

== ENCOUNTER → 2023-07-19 13:45 | Outpatient (BNV) | payer OTHER, SELFPAY | PROVIDERS: PCP Internal Medicine; Visit Provider Radiology Diagnostic Radiology | DX: Z12.31 Encounter for screening mammogram for malignant neoplasm of breast (principal) | CPT/HCPCS: 77063; 77067 ==

== ENCOUNTER 2023-08-03 12:01 | Emergency (ER) | payer OTHER, SELFPAY ==
--- NOTE | ~2023-08-03 | CT_ITS ---
EXAMINATION: CT CERVICAL SPINE WITHOUT CONTRAST CLINICAL INFORMATION: Posterior neck pain. COMPARISON: No recent relevant comparison. TECHNIQUE: Noncontrast multidetector CT imaging examination of the cervical spine is performed. Axial images and multiplanar reformatted images are reviewed. This CT examination was performed using dose optimization techniques as appropriate, variously including the following: *Automated exposure control *Adjustment of mA and/or kV according to patient size (this includes techniques or standardized protocols for targeted exams where dose is matched to indication/reason for exam; i.e. extremities or head) *Use of iterative reconstruction technique DLP: 350 mGy-cm FINDINGS: The craniocervical junction is normal. The occipital condyles, dens and atlantodental articulation are intact. There is calcium deposition (likely calcium pyrophosphate dihydrate crystal deposition) along the transverse ligament posterior to the dens. Degenerative subarticular cystic change and osteophyte formation at anterior atlantodental articulation. The degenerative change between lateral masses of C1-C2 is worst on the left compared to right. No dens fracture. Lack of lordotic curvature and mild dextrocurvature of the cervical spine. Multilevel facet osteoarthritis. Left-sided facet ankylosis at C2-C3. There appears to be partial facet ankylosis on the right at C2-C3 and C3-C4. Degenerative loss of disc height and osteophyte formation throughout the cervical spine, and chronic severe disc space narrowing and intervertebral fusion at C3-C4. The degenerative disc disease is severe at C4-C5, C5-C6 and C6-C7, and moderate at C7-T1 and T1-T2. There is lack of lordotic curvature of the degenerated spine. Negligible anterolisthesis at C7-T1 and 0.2 cm of degenerative anterolisthesis at T1-T2. No fractures in the anterior or posterior elements. No prevertebral edema or soft tissue hematoma. The soft tissues at the posterior neck are unremarkable. No fluid collection or mass. At C3-C4, posterior disc-osteophyte complex and/or chronic ossification of posterior longitudinal ligament causes mild central canal stenosis, narrows the canal to 0.9 cm AP diameter. At C4-C5, C5-C6 and C6-C7, posterior disc osteophyte complexes cause mild to moderate central canal stenosis. Multilevel uncovertebral joint hypertrophy with osteophytes causing mild-to moderate bilateral neural foraminal stenosis at C4-C5, mild bilateral foraminal stenosis at C5-C6 and high-grade right-sided foraminal stenosis at C6-C7. Thyroid gland is unremarkable. Mild emphysema at visualized lung apices. CT/CT cervical spine wo IV con IMPRESSION: * No acute imaging abnormalities within the cervical spine. * Severe multilevel degenerative disc disease, facet osteoarthritis and uncovertebral joint hypertrophy of the cervical spine. Multilevel spinal canal stenosis is noted at C3-C4, C4-C5, C5-C6 and C6-C7.. The neural foraminal stenosis of the cervical spine is worst on the right at C6-C7. * No soft tissue mass or hematoma.
[2023-08-03 12:03] VITALS: BP 162/68; PULSE 110; RESP 19; TEMP 36.6; O2SAT 96; BMI 31.1
--- NOTE | 2023-08-03 12:03 | ED.GENADULT ---
HPI - General Adult General Chief complaint: Neck Pain/Injury Stated complaint: Neck pain - referred by PCP Time Seen by Provider: 08/03/23 12:20 Source: patient, RN notes reviewed and old records reviewed Mode of arrival: ambulatory History of Present Illness HPI narrative: 77-year-old female with a past medical history of asthma/COPD overlap syndrome, HTN, HLD, diabetes, presenting to the ED complaining of bilateral neck, greater on the left, pain since waking on Monday with associated radiation down bilateral upper extremities. Reports paresthesias/tingling in fingers at night. Denies known injury/trauma or fall. Called PCP who told her to present to the ED. has been taking Tylenol without relief. Admits pain radiates to head. Denies vision loss, weakness, incontinence/retention, CP/SOB Onset (ago): day(s) Related Data Home Medications Medication Instructions Recorded Confirmed atorvastatin 80 mg tablet 80 mg PO DAILY 03/21/20 11/18/21 cetirizine 10 mg tablet 10 mg PO DAILY 03/21/20 11/18/21 dexlansoprazole 60 mg 60 mg PO DAILY 03/21/20 11/18/21 capsule,biphase delayed release nitroglycerin 0.4 mg sublingual 0 mg sublingual 03/21/20 11/18/21 tablet albuterol sulfate 2.5 mg/3 mL mg inhalation Q4H PRN wheezing 04/28/20 11/18/21 (0.083 %) solution for nebulization melatonin 10 mg tablet 10 mg PO BEDTIME PRN 08/19/21 11/18/21 metoprolol succinate 50 mg 50 mg PO DAILY 08/19/21 11/18/21 tablet,extended release 24 hr amlodipine 5 mg tablet 5 mg PO DAILY 09/02/21 11/18/21 aspirin 81 mg tablet,delayed 81 mg PO DAILY 09/02/21 11/18/21 release isosorbide mononitrate 30 mg 30 mg PO QAM 09/02/21 11/18/21 tablet,extended release 24 hr Oxygen Home Use 09/16/22 nebulizers 09/16/22 plecanatide 3 mg tablet (Trulance) 3 mg PO DAILY 09/16/22 cyclobenzaprine 5 mg tablet 5 mg PO BEDTIME PRN 07/19/23 Previous Rx's Medication Instructions Recorded cholecalciferol (vitamin D3) 50 50 mcg PO DAILY 30 days #30 caps 04/08/20 mcg (2,000 unit) capsule meclizine 25 mg tablet 25 mg PO BID PRN dizziness #14 tabs 04/02/22 azelastine 137 mcg (0.1 %) nasal 2 spray intranasal BID 30 days #30 08/11/22 spray aerosol mL fluticasone propionate 50 2 spray intranasal DAILY 30 days 08/11/22 mcg/actuation nasal #15.8 mL spray,suspension furosemide 20 mg tablet (Lasix) 10 mg (1/2 x 20 mg) PO DAILY 14 09/26/22 days #7 tabs albuterol sulfate 90 mcg/actuation 2 puff PO Q4H PRN for wheezing #1 04/18/23 aerosol inhaler ea azithromycin 500 mg tablet 500 mg PO DAILY 3 days #3 tabs 07/19/23 fluticasone fur. 200 mcg-umeclid 1 inh inhalation DAILY 30 days #60 07/19/23 62.5 mcg-vilant 25 mcg ea inhalat.powder (Trelegy Ellipta) prednisone 20 mg tablet See Rx Instructions PO DAILY 10 07/19/23 days #15 tabs acetaminophen 500 mg tablet 500 mg PO Q6H PRN fever or pain 08/03/23 (Tylenol Extra Strength) #14 tabs cyclobenzaprine 5 mg tablet 5 mg PO Q8H PRN pain (scale score 08/03/23 7-10) 5 days #14 tabs lidocaine 5 % topical patch 1 patch topical DAILY PRN pain #30 08/03/23 (Lidoderm) ea naproxen 500 mg tablet 500 mg PO BID PRN pain 10 days #20 08/03/23 tabs Allergies Allergy/AdvReac Type Severity Reaction Status Date / Time amoxicillin [Augmentin] Allergy Mild Rash Verified 08/03/23 12:03 clavulanic acid Allergy Mild RASH Verified 08/03/23 12:03 [From Augmentin] Review of Systems Review of Systems: Constitutional: No Fever, No Chills ENT/Mouth: No Ear Pain, No Nasal Congestion, No Hoarseness, No sore throat, No Rhinorrhea, No Swallowing Difficulty Cardiovascular: No Chest Pain, No SOB Respiratory: No Cough Gastrointestinal: No Nausea, No Vomiting, No Abdominal pain Genitourinary: No Dysuria, No Urinary Frequency, No Hematuria, No Urinary Incontinence/retention, No Flank Pain Musculoskeletal: +neck pain, No Myalgias, No Joint Swelling Skin: No Skin Lesions, No rash Neuro: No Weakness, No Numbness, No Paresthesias Yes all other systems are reviewed and are negative Constitutional: Constitutional: Reports as per HPI Neurologic: Denies Abnormal speech present [facility] Past Medical History Attestation statement: The following information was validated with the patient. Source: old records reviewed Medical History Asthma-COPD overlap syndrome Incontinence in female History of adenomatous polyp of colon Pneumonitis Bronchopneumonia Hypogammaglobulinemia Chronic rhinitis Dizziness Headache Hyperlipidemia HTN (hypertension) Diabetes COPD (chronic obstructive pulmonary disease) Surgical History S/P right coronary artery (RCA) stent placement H/O colonoscopy History of foot surgery History of toe surgery History of bunionectomy Family History Family History Mother No problems noted. Father No problems noted. Social History Social History Household Members: None Housing: Apartment Alcohol intake: never Patient Tobacco Use Status: Former Tobacco user Tobacco use type: Cigarette Advance Directives: Yes Advance Directives Information Provided: No Advance Directives on File: No service: No Current occupational status: retired Sexual orientation: Straight/Heterosexual Gender identity: Female Physical Exam ED Vital Signs: Vital Signs - 24 hr 08/03/23 12:03 Temperature 98 F Pulse Rate 110 H Respiratory Rate 19 Blood Pressure 162/68 H Pulse Oximetry 96 Oxygen Delivery Method Room Air BMI result Body Mass Index 31.1 Const General: cooperative, healthy appearing and no acute distress Orientation/consciousness: patient oriented x3 Limitations: no limitations HENMT Head: Yes normal to inspection and Yes atraumatic Ears: hearing grossly normal bilaterally, external ears normal, TM's normal bilaterally and mastoids normal General nose exam: Normal external nose present Face and sinus: Yes normal facial exam Mouth: Normal oral and palatal mucosa present and no drooling Throat: Yes posterior oropharynx normal, Yes tonsils normal and Yes uvula midline Eyes General: appearance normal, both eyes and all related structures Pupils: Equal, round and reactive pupils present EOM: EOMs intact bilaterally Neck Other: No midline spinous tenderness/step-off or deformity. Bilateral cervical paraspinal and trapezius muscle reproducible tenderness. + torticollis with decreased ROM secondary to pain. Neck: Yes no meningeal signs, No anterior neck swelling, No midline deformity and Yes torticollis Resp Effort & Inspection: normal respiratory effort and no respiratory distress Cardio Rate: regular rate Heart sounds: S1 normal heart sound present and S2 normal heart sound present Peripheral pulses: Peripheral pulses 2+ throughout GI Inspection: Yes normal to inspection Back/Spine/Pelvis Other: No midline cervical/thoracic/lumbar spinous tenderness/step-off or deformity Skin Rashes: no rashes Wounds: no wounds Neuro General: patient oriented x3, gait normal, tone normal, moves all extremities, no meningeal signs, no focal motor deficits and CN's II-XI intact bilaterally Cranial nerves: Yes CN's II-XII intact bilaterally and Yes Equal, round and reactive pupils present Cognition (Neuro): normal cognition Speech: No Abnormal speech present Gait exam (Neuro): Normal gait present Motor exam (neuro): 5/5 motor strength present throughout and Pronator motor function not present Extrem General: Yes normal to inspection Course Course Course Narrative: This is a rapid medical exam: Additional HPI, ROS, PE not included below will be deferred to primary provider. Patient is a 77-year-old female with history of asthma-COPD overlap syndrome, HTN, HLD, DM referred to ED by PCP for posterior neck pain since Monday. States pain radiates down both arms. Took Tylenol without relief. Denies fevers. Denies fall or other trauma. Plan: CT, labs, EKG 1428--CT cervical spine wo IV con IMPRESSION: * No acute imaging abnormalities within the cervical spine. * Severe multilevel degenerative disc disease, facet osteoarthritis and uncovertebral joint hypertrophy of the cervical spine. Multilevel spinal canal stenosis is noted at C3-C4, C4-C5, C5-C6 and C6-C7.. The neural foraminal stenosis of the cervical spine is worst on the right at C6-C7. * No soft tissue mass or hematoma. > 1438--patient reports symptomatic improvement after medications given. Will also give IM Toradol. Labs were never drawn > will obtain now -1530--no leukocytosis. H/H stable. Troponin negative. -1556--COVID-19 positive > low suspicion for meningitis/encephalitis Results discussed with patient including worrisome signs and symptoms and strict return precautions, and when to return to the emergency department. They verbalized understanding and feel safe for discharge at this time. Medications Administered Discontinued Medications Generic Name Dose Route Start Last Admin Trade Name Kat PRN Reason Stop Dose Admin Diazepam 2 mg 08/03/23 12:41 08/03/23 12:52 Diazepam 2 Mg Tablet PO 08/03/23 12:42 2 mg ONCE ONE Administration Ketorolac Tromethamine 30 mg 08/03/23 14:39 08/03/23 15:36 Ketorolac Tromethamine 30 Mg/Ml Vial IM 08/03/23 14:40 30 mg ONCE ONE Administration Lidocaine 1 patch 08/03/23 12:41 08/03/23 12:52 Lidocaine 4 % Patch Adh..Patch TRANSDERMA 08/03/23 12:42 1 patch ONCE ONE Administration Protocol Medical Decision Making Medical Decision Making [facility] Narrative: 77-year-old female with a past medical history of asthma/COPD overlap syndrome, HTN, HLD, diabetes, presenting to the ED complaining of bilateral neck, greater on the left, pain since waking on Monday with associated radiation down bilateral upper extremities. On exam tachycardic likely from pain, NAD, nontoxic appearing, physical exam as noted above. No midline spinous tenderness throughout. No focal neuro deficits. Concern for torticollis/muscle spasming and strain. Lower suspicion for fracture, cervical dissection, CVA/TIA, cord compression Plan: EKG, labs, CT ordered in triage, pain control, re-evaluate Please refer to course for remaining clinical decision making, interpretation of labs/imaging results, and discussions with consultants and/or family members. Differential Diagnosis Differential Diagnoses: The differential diagnosis associated with the presentation includes As above Admission/Observation Consideration of admission/observation: Escalation of care including admission/observation considered Lab Data [facility] Lab Attestation statement: I reviewed the patient's lab results. 08/03/23 14:50 08/03/23 14:50 Labs: Lab Results 08/03/23 Range/Units 14:50 WBC 9.4 (4.8-10.8) X10*3/uL RBC 3.89 L (4.20-5.50) X10*6/uL Hgb 11.5 L (12.0-16.0) g/dl Hct 34.9 L (37.0-47.0) % MCV 89.7 (80.0-98.0) fL MCH 29.6 (27.0-33.0) pg MCHC 33.0 (31.0-35.0) g/dl RDW 15.8 (11.0-16.0) % Plt Count 249 (160-400) X10*3/uL MPV 10.7 (9.4-12.3) fL Immature Gran % (Auto) 0.6 H (0.0-0.4) % Neut % (Auto) 75.2 H (45-73) % Lymph % (Auto) 14.8 L (20-40) % Park % (Auto) 9.1 (2-11) % Eos % (Auto) 0.1 (0-4) % Baso % (Auto) 0.2 (0-2) % Lymph # (Auto) 1.4 (1.2-4.9) X10*3/uL Park # (Auto) 0.9 (0.1-1.2) X10*3/uL Eos # (Auto) 0.0 (0.0-0.4) X10*3/uL Baso # (Auto) 0.0 (0.0-0.2) X10*3/uL Abs Immat Gran (auto) 0.06 H (0.00-0.03) X10*3/uL Absolute Neuts (auto) 7.1 (2.0-8.3) x10*3/uL Absolute Nucleated RBC 0.000 (0.0-0.012) X10*3/uL Nucleated RBC % (auto) 0.0 (0.0-0.2) /100WBC Sodium 144 (135-145) mmol/L Potassium 5.1 (3.3-5.1) mmol/L Chloride 108 (96-108) mmol/L Carbon Dioxide 26 (22-29) mmol/L Anion Gap 15 (12-20) BUN 18 H (9-16) mg/dL Creatinine 1.03 (0.5-1.4) mg/dL Estim Creat Clear Calc 46.6 Estimated GFR 52 Random Glucose 133 H (60-115) mg/dL Calcium 9.7 (8.4-10.2) mg/dL Total Bilirubin 0.4 (0.0-1.0) mg/dL AST 13 (5-31) U/L ALT 11 (0-31) U/L Alkaline Phosphatase 95 (39-117) U/L Troponin I High Sens < 2.7 (<3.5-17.0) ng/L Total Protein 7.1 (6.5-8.0) g/dL Albumin 4.1 (3.5-5.0) g/dL COVID-19 (CARTER) Positive A (Negative) COVID-19 Clin Com See Note Influenza Type A (STEPHANIE) Negative (Negative) Influenza Type B (STEPHANIE) Negative (Negative) Influenza A & B Note See Note Independent Interpretation I performed an independent interpretation of an: EKG (My interpretation EKG sinus tachycardia rate of 103. AR interval 140. QTC 442. No STEMI) Radiology Impression Discussion of test interpretation with radiology: I have reviewed the radiologist's reading. External Record Review External record reviewed: Inpatient record, Office record, Outpatient record, Prior outpatient labs, Prior outpatient radiology, Primary care record and Outside ED record Tests considered The following testing was considered but not selected: As above Prescription Management I considered prescription management with: Pain Medication Chronic Conditions Patient?s care impacted by: Hypertension and Other (Asthma/COPD overlap syndrome) Discharge Plan Discharge Clinical Impression: Acute torticollis, Cervical osteoarthritis, COVID-19 Patient Disposition: Home, Self-Care Instructions: Neck Pain (ED) Additional Instructions: Your CT scan shows degenerative disc disease/osteoarthritis. 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 Your pain is likely musculoskeletal Flexeril is a muscle relaxer, take at night as it makes you drowsy, do not drive, drink alcohol, or operate machinery while taking it Naproxen as an anti-inflammatory / pain medication, take with food Lidoderm patches are numbing patches, apply to painful area In addition take Tylenol at home If symptoms persist or worsen, pain becomes unbearable, you developed urinary retention or incontinence, or weakness return to the ED YOU HAVE COVID-19 At this time you will be okay for discharge. Please self isolate for 5 days. Do not expose yourself to others. You may not go to work or school. Please continue to follow cold instructions and wash your hands frequently. You may take Tylenol / Motrin as directed on the bottle for pain or fever. If you have constant or persistent shortness of breath, fever unresolved with medications, chest pain, or your unable to eat or drink please return to the ED CDC Guidelines for home isolation: - Stay away from others - WEAR A MASK if you are sick AND STAY HOME - Cover your mouth and nose with a tissue when you cough or sneeze. Dispose of tissues in a lined trash can and wash your hands immediately with soap and water for at least 20 seconds. If soap and water are not available, clean hands with alcohol-based hand air valve repairer that contains at least 60% alcohol. - Clean your hands often with soap and water for at least 20 seconds - Avoid touching your eyes, nose and mouth with unwashed hands - Do not share dishes, drinking glasses, cups, eating utensils, towels, or bedding with other people in your home. After using these items, wash them thoroughly with soap and water or put in the sock knitting machine operator. - Clean high-touch surfaces in your isolation area ( sick room and bathroom) every day; let a caregiver clean and disinfect high-touch surfaces in other areas of the home. Clean the area or item with soap and water or another detergent if it is dirty. Then, use a household disinfectant. - Limit contact with pets and animals: If you must care for a pet, wash your hands before and after interacting with them) Prescriptions: New acetaminophen [Tylenol Extra Strength] 500 mg tablet 500 mg PO Q6H PRN (Reason: fever or pain) Qty: 14 0RF lidocaine [Lidoderm] 5 % adhesive patch,medicated 1 patch topical DAILY MDD remove after 12 hours PRN (Reason: pain) Qty: 30 0RF Rx Instructions: leave on most painful area for up to 12 hrs naproxen 500 mg tablet 500 mg PO BID PRN (Reason: pain) 10 Days Qty: 20 0RF cyclobenzaprine 5 mg tablet 5 mg PO Q8H PRN (Reason: pain (scale score 7-10)) 5 Days Qty: 14 0RF No Action cholecalciferol (vitamin D3) 50 mcg (2,000 unit) capsule 50 mcg PO DAILY 30 Days Qty: 30 3RF albuterol sulfate 90 mcg/actuation HFA aerosol inhaler 2 puff PO Q4H PRN (Reason: for wheezing) Qty: 1 3RF furosemide [Lasix] 20 mg tablet 10 mg PO DAILY 14 Days Qty: 7 0RF meclizine 25 mg tablet 25 mg PO BID PRN (Reason: dizziness) Qty: 14 0RF albuterol sulfate 2.5 mg /3 mL (0.083 %) solution for nebulization inhalation Q4H PRN (Reason: wheezing) nitroglycerin 0.4 mg tablet, sublingual 0 mg sublingual Dexilant 60 mg capsule,biphase delayed releas 60 mg PO DAILY cetirizine 10 mg tablet 10 mg PO DAILY atorvastatin 80 mg tablet 80 mg PO DAILY metoprolol succinate 50 mg tablet extended release 24 hr 50 mg PO DAILY amlodipine 5 mg tablet 5 mg PO DAILY aspirin 81 mg tablet,delayed release (DR/EC) 81 mg PO DAILY isosorbide mononitrate 30 mg tablet extended release 24 hr 30 mg PO QAM azelastine 137 mcg (0.1 %) aerosol,spray 2 spray intranasal BID 30 Days Qty: 30 6RF Rx Instructions: administer into each nostril fluticasone propionate 50 mcg/actuation spray,suspension 2 spray intranasal DAILY 30 Days Qty: 15.8 11RF melatonin 10 mg tablet 10 mg PO BEDTIME PRN (DME) Oxygen Home Use Kit See Rx Instructions .Route Rx Instructions: As directed (DME) nebulizers [facility] [place] See Rx Instructions .Route Rx Instructions: As directed Trulance 3 mg tablet 3 mg PO DAILY cyclobenzaprine 5 mg tablet 5 mg PO BEDTIME PRN Trelegy Ellipta 200-62.5-25 mcg blister with device 1 inh inhalation DAILY 30 Days Qty: 60 12RF azithromycin 500 mg tablet 500 mg PO DAILY 3 Days Qty: 3 0RF prednisone 20 mg tablet See Rx Instructions PO DAILY 10 Days Qty: 15 0RF Rx Instructions: PO daily; Take 2 tabs daily x 5 days, then 1 tablet daily x 5 days Referrals: [facility] [place] [facility] Surgeons [Provider Group] Physician,Unknown J [Primary Care Provider] - 3 days
--- NOTE | 2023-08-03 12:08 | ECG_ITS ---
Test Reason : neck/shoulder pain Blood Pressure : / mmHG Vent. Rate : 103 BPM Atrial Rate : 103 BPM P-R Int : 140 ms QRS Dur : 076 ms QT Int : 338 ms P-R-T Axes : 070 039 044 degrees QTc Int : 442 ms Sinus tachycardia Otherwise normal ECG When compared with ECG of 26-SEP-2022 20:28, Vent. rate has increased BY 36 BPM Referred By: Shena Mejia Electronically Signed By:Akbar Day
[2023-08-03] MEDS: diazePAM 2 MG TABLET PO (12:52)
[2023-08-03] MEDS: Lidocaine 4 % Patch ADH..PATCH 1 PATCH TRANSDERMA (12:52)
[2023-08-03 15:01] LABS: MANUAL DIFF FLAG NO
[2023-08-03 15:02] LABS: Basophils Percent Auto 0.2 % (0-2); Eosinophils Percent Auto 0.1 % (0-4); Hematocrit 34.9 % (37.0-47.0); Hemoglobin 11.5 g/dl (12.0-16.0); Imm Gran Abs Auto 0.06 X10*3/uL (0.00-0.03); Imm Gran Pct Auto 0.6 % (0.0-0.4); Lymphocytes Absolute Auto 1.4 X10*3/uL (1.2-4.9); Lymphocytes Percent Auto 14.8 % (20-40); Mean Corpuscular Hemoglobin 29.6 pg (27.0-33.0); Mean Corpuscular Volume 89.7 fL (80.0-98.0); Mean Platelet Volume 10.7 fL (9.4-12.3); Monocytes Absolute Auto 0.9 X10*3/uL (0.1-1.2); Monocytes Percent Auto 9.1 % (2-11); Neutrophils Absolute Auto 7.1 x10*3/uL (2.0-8.3); Neutrophils Percent Auto 75.2 % (45-73); Platelet Count 249 X10*3/uL (160-400); Red Blood Count 3.89 X10*6/uL (4.20-5.50); Red Cell Distribution Width 15.8 % (11.0-16.0); White Blood Count 9.4 X10*3/uL (4.8-10.8)
[2023-08-03 15:20] LABS: Alanine Aminotransferase 11 U/L (0-31); Albumin Level 4.1 g/dL (3.5-5.0); Alkaline Phosphatase 95 U/L (39-117); Anion Gap 15 (12-20); Aspartate Amino Transferase 13 U/L (5-31); Bilirubin Total 0.4 mg/dL (0.0-1.0); Blood Urea Nitrogen 18 mg/dL (9-16); Calcium 9.7 mg/dL (8.4-10.2); Carbon Dioxide 26 mmol/L (22-29); Chloride 108 mmol/L (96-108); Creatinine Clr Calc Pharmacy 46.6; Estimated Glomerular Filt Rate 52; Glucose Random 133 mg/dL (60-115); Potassium 5.1 mmol/L (3.3-5.1); Sodium 144 mmol/L (135-145); Total Protein 7.1 g/dL (6.5-8.0)
[2023-08-03 15:21] LABS: IDNOW Serial# 9DB6401D; Influenza A Negative (Negative); Influenza B2 Negative (Negative)
[2023-08-03 15:27] LABS: Troponin-I High Sensitivity < 2.7 ng/L (<3.5-17.0)
[2023-08-03] MEDS: Ketorolac Tromethamine 30 MG/ML VIAL IM (15:36)
[2023-08-03 15:43] LABS: COVID-19 Test Positive (Negative); IDNOW Serial# 6674DD1D
== END 2023-08-03 16:09 | disposition home or self-care (01) ==
PROVIDERS: Registered Nurse Emergency; Emergency Provider Emergency Medicine
DX: U07.1 COVID-19 (principal); M43.6 Torticollis; M47.892 Other spondylosis, cervical region; E11.9 Type 2 diabetes mellitus without complications; I10 Essential (primary) hypertension; E78.5 Hyperlipidemia, unspecified; J44.9 Chronic obstructive pulmonary disease, unspecified; Z99.81 Dependence on supplemental oxygen; Z79.02 Long term (current) use of antithrombotics/antiplatelets; Z79.82 Long term (current) use of aspirin; Z79.899 Other long term (current) drug therapy; Z87.891 Personal history of nicotine dependence
CPT/HCPCS: 72125; 80053; 84484; 85025; 87502; 87635; 93005; 96372; 99283; 99284; J1885

== ENCOUNTER → 2023-08-03 12:08 | Outpatient (BNV) | payer OTHER, SELFPAY | PROVIDERS: Emergency Provider Emergency Medicine; Visit Provider Internal Medicine Cardiovascular Disease | DX: R00.0 Tachycardia, unspecified (principal) | CPT/HCPCS: 93010 ==

== ENCOUNTER 2023-09-01 12:15 | Emergency (ER) | payer OTHER, SELFPAY ==
[2023-09-01 12:30] VITALS: BP 155/78; PULSE 115; RESP 18; TEMP 37.1; O2SAT 92; BMI 28.3
--- NOTE | 2023-09-01 12:31 | ED.GENADULT ---
HPI - General Adult General Chief complaint: Abdominal Pain Stated complaint: kidney stones Related Data Home Medications Medication Instructions Recorded Confirmed atorvastatin 80 mg tablet 80 mg PO DAILY 03/21/20 11/18/21 cetirizine 10 mg tablet 10 mg PO DAILY 03/21/20 11/18/21 dexlansoprazole 60 mg 60 mg PO DAILY 03/21/20 11/18/21 capsule,biphase delayed release nitroglycerin 0.4 mg sublingual 0 mg sublingual 03/21/20 11/18/21 tablet albuterol sulfate 2.5 mg/3 mL mg inhalation Q4H PRN wheezing 04/28/20 11/18/21 (0.083 %) solution for nebulization melatonin 10 mg tablet 10 mg PO BEDTIME PRN 08/19/21 11/18/21 amlodipine 5 mg tablet 5 mg PO DAILY 09/02/21 11/18/21 aspirin 81 mg tablet,delayed 81 mg PO DAILY 09/02/21 11/18/21 release isosorbide mononitrate 30 mg 30 mg PO QAM 09/02/21 11/18/21 tablet,extended release 24 hr Oxygen Home Use 09/16/22 nebulizers 09/16/22 plecanatide 3 mg tablet (Trulance) 3 mg PO DAILY 09/16/22 cyclobenzaprine 5 mg tablet 5 mg PO BEDTIME PRN 07/19/23 metoprolol tartrate 50 mg tablet mg PO 09/04/23 Previous Rx's Medication Instructions Recorded cholecalciferol (vitamin D3) 50 50 mcg PO DAILY 30 days #30 caps 04/08/20 mcg (2,000 unit) capsule meclizine 25 mg tablet 25 mg PO BID PRN dizziness #14 tabs 04/02/22 azelastine 137 mcg (0.1 %) nasal 2 spray intranasal BID 30 days #30 08/11/22 spray aerosol mL fluticasone propionate 50 2 spray intranasal DAILY 30 days 08/11/22 mcg/actuation nasal #15.8 mL spray,suspension furosemide 20 mg tablet (Lasix) 10 mg (1/2 x 20 mg) PO DAILY 14 09/26/22 days #7 tabs albuterol sulfate 90 mcg/actuation 2 puff PO Q4H PRN for wheezing #1 04/18/23 aerosol inhaler ea fluticasone fur. 200 mcg-umeclid 1 inh inhalation DAILY 30 days #60 07/19/23 62.5 mcg-vilant 25 mcg ea inhalat.powder (Trelegy Ellipta) acetaminophen 500 mg tablet 500 mg PO Q6H PRN fever or pain 08/03/23 (Tylenol Extra Strength) #14 tabs cyclobenzaprine 5 mg tablet 5 mg PO Q8H PRN pain (scale score 08/03/23 7-10) 5 days #14 tabs lidocaine 5 % topical patch 1 patch topical DAILY PRN pain #30 08/03/23 (Lidoderm) ea naproxen 500 mg tablet 500 mg PO BID PRN pain 10 days #20 08/03/23 tabs phenazopyridine 100 mg tablet 100 mg PO TID 3 days #9 tabs 09/04/23 (Pyridium) cefixime 400 mg capsule 400 mg PO DAILY 7 days #7 caps 09/08/23 metronidazole 375 mg capsule 375 mg PO BID 7 days #14 caps 09/08/23 (Flagyl) Allergies Allergy/AdvReac Type Severity Reaction Status Date / Time amoxicillin [Augmentin] Allergy Mild Rash Verified 09/04/23 18:00 clavulanic acid Allergy Mild RASH Verified 09/04/23 18:00 [From Augmentin] [facility] Past Medical History Medical History Asthma-COPD overlap syndrome Incontinence in female History of adenomatous polyp of colon Pneumonitis Bronchopneumonia Hypogammaglobulinemia Chronic rhinitis Dizziness Headache Hyperlipidemia HTN (hypertension) Diabetes COPD (chronic obstructive pulmonary disease) Surgical History S/P right coronary artery (RCA) stent placement H/O colonoscopy History of foot surgery History of toe surgery History of bunionectomy Family History Family History Mother No problems noted. Father No problems noted. Social History Social History Household Members: None Housing: Apartment Alcohol intake: never Patient Tobacco Use Status: Former Tobacco user Tobacco use type: Cigarette service: No Current occupational status: retired Sexual orientation: Straight/Heterosexual Gender identity: Female Physical Exam ED Vital Signs: BMI result Body Mass Index 28.3 Course Course Course Narrative: This is an RME: Additional HPI, ROS, PE not included below will be deferred to primary provider. Patient is a 77-year-old female Reports that she went to [facility] yesterday as she was experiencing dysuria x3 days. She was given a prescription for Macrobid and Pyridium which are not improving symptoms. Has nausea but no vomiting. She states she was called today was advised that she may have to come to the emergency department as she may have a kidney stone? No pain when not attempting to void. Medical Decision Making Lab Data 09/01/23 13:03 09/01/23 13:03 Labs: Lab Results 09/01/23 09/01/23 Range/Units 13:03 14:42 WBC 7.9 (4.8-10.8) X10*3/uL RBC 4.15 L (4.20-5.50) X10*6/uL Hgb 12.5 (12.0-16.0) g/dl Hct 38.0 (37.0-47.0) % MCV 91.6 (80.0-98.0) fL MCH 30.1 (27.0-33.0) pg MCHC 32.9 (31.0-35.0) g/dl RDW 16.1 H (11.0-16.0) % Plt Count 260 (160-400) X10*3/uL MPV 10.2 (9.4-12.3) fL Immature Gran % (Auto) 0.5 H (0.0-0.4) % Neut % (Auto) 54.6 (45-73) % Lymph % (Auto) 29.7 (20-40) % [place] % (Auto) 12.6 H (2-11) % Eos % (Auto) 2.3 (0-4) % Baso % (Auto) 0.3 (0-2) % Lymph # (Auto) 2.3 (1.2-4.9) X10*3/uL [place] # (Auto) 1.0 (0.1-1.2) X10*3/uL Eos # (Auto) 0.2 (0.0-0.4) X10*3/uL Baso # (Auto) 0.0 (0.0-0.2) X10*3/uL Abs Immat Gran (auto) 0.04 H (0.00-0.03) X10*3/uL Absolute Neuts (auto) 4.3 (2.0-8.3) x10*3/uL Absolute Nucleated RBC 0.000 (0.0-0.012) X10*3/uL Nucleated RBC % (auto) 0.0 (0.0-0.2) /100WBC Sodium 145 (135-145) mmol/L Potassium 4.4 (3.3-5.1) mmol/L Chloride 104 (96-108) mmol/L Carbon Dioxide 30 H (22-29) mmol/L Anion Gap 15 (12-20) BUN 18 H (9-16) mg/dL Creatinine 1.33 (0.5-1.4) mg/dL Estim Creat Clear Calc 34.5 Estimated GFR 39 Random Glucose 174 H (60-115) mg/dL Calcium 9.9 (8.4-10.2) mg/dL Total Bilirubin 1.3 H (0.0-1.0) mg/dL AST 17 (5-31) U/L ALT 17 (0-31) U/L Alkaline Phosphatase 94 (39-117) U/L Total Protein 7.4 (6.5-8.0) g/dL Albumin 4.2 (3.5-5.0) g/dL Urine Color [place] Urine Appearance Cloudy Urine pH 5.5 (5.0-9.0) Ur Specific [place] 1.015 (1.005-1.025) Urine Protein See Note (Neg-Trace) mg/dL Urine Glucose (UA) See Note (Negative) mg/dL Urine Ketones See Note (Negative) mg/dL Urine Blood See Note (Negative) Urine Nitrite See Note (Negative) Ur Leukocyte Esterase See Note (Negative) Urine RBC 6-10 H (0-2) /HPF Urine WBC >50 H (0-5) /HPF Ur Squamous Epith Cells 3-5 (0-2) /HPF Urine Bacteria 3+ (None Seen) Hyaline Casts 0-2 (0-2) /LPF Discharge Plan Discharge Clinical Impression: Dysuria Patient Disposition: Left W/O Completing Treatment Prescriptions: No Action cholecalciferol (vitamin D3) 50 mcg (2,000 unit) capsule 50 mcg PO DAILY 30 Days Qty: 30 3RF albuterol sulfate 90 mcg/actuation HFA aerosol inhaler 2 puff PO Q4H PRN (Reason: for wheezing) Qty: 1 3RF cefixime 400 mg capsule 400 mg PO DAILY 7 Days Qty: 7 0RF metronidazole [Flagyl] 375 mg capsule 375 mg PO BID 7 Days Qty: 14 0RF acetaminophen [Tylenol Extra Strength] 500 mg tablet 500 mg PO Q6H PRN (Reason: fever or pain) Qty: 14 0RF lidocaine [Lidoderm] 5 % adhesive patch,medicated 1 patch topical DAILY MDD remove after 12 hours PRN (Reason: pain) Qty: 30 0RF Rx Instructions: leave on most painful area for up to 12 hrs naproxen 500 mg tablet 500 mg PO BID PRN (Reason: pain) 10 Days Qty: 20 0RF cyclobenzaprine 5 mg tablet 5 mg PO Q8H PRN (Reason: pain (scale score 7-10)) 5 Days Qty: 14 0RF furosemide [Lasix] 20 mg tablet 10 mg PO DAILY 14 Days Qty: 7 0RF meclizine 25 mg tablet 25 mg PO BID PRN (Reason: dizziness) Qty: 14 0RF albuterol sulfate 2.5 mg /3 mL (0.083 %) solution for nebulization inhalation Q4H PRN (Reason: wheezing) nitroglycerin 0.4 mg tablet, sublingual 0 mg sublingual Dexilant 60 mg capsule,biphase delayed releas 60 mg PO DAILY cetirizine 10 mg tablet 10 mg PO DAILY atorvastatin 80 mg tablet 80 mg PO DAILY amlodipine 5 mg tablet 5 mg PO DAILY aspirin 81 mg tablet,delayed release (DR/EC) 81 mg PO DAILY isosorbide mononitrate 30 mg tablet extended release 24 hr 30 mg PO QAM azelastine 137 mcg (0.1 %) aerosol,spray 2 spray intranasal BID 30 Days Qty: 30 6RF Rx Instructions: administer into each nostril fluticasone propionate 50 mcg/actuation spray,suspension 2 spray intranasal DAILY 30 Days Qty: 15.8 11RF melatonin 10 mg tablet 10 mg PO BEDTIME PRN (DME) Oxygen Home Use Kit See Rx Instructions .Route Rx Instructions: As directed (DME) nebulizers [facility] See Rx Instructions .Route Rx Instructions: As directed Trulance 3 mg tablet 3 mg PO DAILY metoprolol tartrate 50 mg tablet PO phenazopyridine [Pyridium] 100 mg tablet 100 mg PO TID 3 Days Qty: 9 0RF cyclobenzaprine 5 mg tablet 5 mg PO BEDTIME PRN Trelegy Ellipta 200-62.5-25 mcg blister with device 1 inh inhalation DAILY 30 Days Qty: 60 12RF Discharge Date/Time: 09/01/23 21:29
[2023-09-01 13:07] LABS: MANUAL DIFF FLAG NO
[2023-09-01 13:08] LABS: Basophils Percent Auto 0.3 % (0-2); Eosinophils Absolute Auto 0.2 X10*3/uL (0.0-0.4); Eosinophils Percent Auto 2.3 % (0-4); Hemoglobin 12.5 g/dl (12.0-16.0); Imm Gran Abs Auto 0.04 X10*3/uL (0.00-0.03); Imm Gran Pct Auto 0.5 % (0.0-0.4); Lymphocytes Absolute Auto 2.3 X10*3/uL (1.2-4.9); Lymphocytes Percent Auto 29.7 % (20-40); Mean Corpuscular HGB Conc 32.9 g/dl (31.0-35.0); Mean Corpuscular Hemoglobin 30.1 pg (27.0-33.0); Mean Corpuscular Volume 91.6 fL (80.0-98.0); Mean Platelet Volume 10.2 fL (9.4-12.3); Monocytes Percent Auto 12.6 % (2-11); Neutrophils Absolute Auto 4.3 x10*3/uL (2.0-8.3); Neutrophils Percent Auto 54.6 % (45-73); Platelet Count 260 X10*3/uL (160-400); Red Blood Count 4.15 X10*6/uL (4.20-5.50); Red Cell Distribution Width 16.1 % (11.0-16.0); White Blood Count 7.9 X10*3/uL (4.8-10.8)
[2023-09-01 13:42] LABS: Alanine Aminotransferase 17 U/L (0-31); Albumin Level 4.2 g/dL (3.5-5.0); Alkaline Phosphatase 94 U/L (39-117); Anion Gap 15 (12-20); Aspartate Amino Transferase 17 U/L (5-31); Bilirubin Total 1.3 mg/dL (0.0-1.0); Blood Urea Nitrogen 18 mg/dL (9-16); Calcium 9.9 mg/dL (8.4-10.2); Carbon Dioxide 30 mmol/L (22-29); Chloride 104 mmol/L (96-108); Creatinine Clr Calc Pharmacy 34.5; Estimated Glomerular Filt Rate 39; Glucose Random 174 mg/dL (60-115); Potassium 4.4 mmol/L (3.3-5.1); Sodium 145 mmol/L (135-145); Total Protein 7.4 g/dL (6.5-8.0)
[2023-09-01 14:57] LABS: Appearance Urine Cloudy; Color Urine Orange; PH 5.5 (5.0-9.0); Specific Gravity - Urine 1.015 (1.005-1.025); UMIC TRIGGER UACC YES
[2023-09-01 15:03] LABS: Bacteria Urine 3+ (None Seen); Hyaline Casts Urine 0-2 /LPF (0-2); UACC Culture Trigger YES; WBC Urine >50 /HPF (0-5)
== END 2023-09-01 21:29 | disposition left against medical advice (07) ==
LOC: HO.ED 21:21
PROVIDERS: Nurse Practitioner Family; Emergency Provider Emergency Medicine
DX: R30.0 Dysuria (principal); I10 Essential (primary) hypertension; E11.9 Type 2 diabetes mellitus without complications; J44.9 Chronic obstructive pulmonary disease, unspecified
CPT/HCPCS: 36415; 80053; 81001; 81003; 85025; 87086; 99282; 99283

== ENCOUNTER 2023-09-04 14:25 | Outpatient (AMB) | payer OTHER, SELFPAY ==
--- NOTE | 2023-09-04 15:00 | A.OFFVIS_ITS ---
Intake Intake Visit Reasons: 3M f/u with PVR Intake Note: Patient presents for follow up visit for urinary incontinence Urology Medications: none Blood Thinner: aspirin PVR: 17ml's [employer] [place] Required: No Accompanied by: Self / Same As Patient Allergies amoxicillin [Augmentin] Allergy (Mild, Verified 09/04/23 18:00) Rash clavulanic acid [From Augmentin] Allergy (Mild, Verified 09/04/23 18:00) RASH Medication List - Last Reconciled 09/04/23 by JAYLA Johns acetaminophen (Tylenol Extra Strength) 500 mg PO Q6H PRN albuterol sulfate mg inhalation Q4H PRN albuterol sulfate 90 mcg/actuation 2 puffs PO Q4H PRN amlodipine 5 mg PO DAILY aspirin 81 mg PO DAILY atorvastatin 80 mg PO DAILY azelastine 2 sprays intranasal BID 30 days cetirizine 10 mg PO DAILY cholecalciferol (vitamin D3) 50 mcg PO DAILY 30 days cyclobenzaprine 5 mg PO Q8H PRN 5 days cyclobenzaprine 5 mg PO BEDTIME PRN dexlansoprazole 60 mg PO DAILY fluticasone propionate 50 mcg/actuation 2 sprays intranasal DAILY 30 days [id number] 200-62.5-25 mcg (Trelegy Ellipta) 1 inh inhalation DAILY 30 days furosemide (Lasix) 10 mg (1/2 x 20 mg) PO DAILY 14 days isosorbide mononitrate ER 30 mg PO QAM lidocaine 5% (Lidoderm) 1 patch topical DAILY PRN MDD remove after 12 hours meclizine 25 mg PO BID PRN melatonin 10 mg PO BEDTIME PRN metoprolol tartrate mg PO naproxen 500 mg PO BID PRN 10 days nebulizers As directed nitroglycerin 0 mg sublingual Oxygen Home Use As directed phenazopyridine (Pyridium) 100 mg PO TID 3 days plecanatide (Trulance) 3 mg PO DAILY HPI HPI Comments History of Present Illness Details Shea is a very pleasant 77 year old female patient of Dr. Rizo. She has a history of pneumonitis, bronchopneumonia, chronic rhinitis, dizziness, headaches, hyperlipidemia, hypertension, diabetes, and COPD. She presents to the office today for follow-up. Of note, patient was seen approximately 1 month ago as a new patient for lower urinary symptoms at which time she was noted to have 3+ leukocytes and reporting lower urinary tract symptoms of urinary urgency and urinary frequency therefore she was treated for a presumed urinary tract infection. Urine cultures from September, January, February, and April of 2023 have had no growth or mixed bacteria. Patient discuss having gone to the emergency room for ongoing lower bladder pressure, urinary urgency, and urinary frequency three days ago however states she waited 5 hours and did not want to continue to wait so she left. It appears urine was obtained and sent for urine culture. Urine culture 3/15 mixed bacteria. She continues with bladder pressure, urinary urgency, urinary frequency, with small amounts of urine when urinating. In office urinalysis results reviewed with the patient today. 3+ leukocytes negative nitrates. PVR 17ml's. Discussed sending urine for Mircogen testing for further assessment and evaluation. Discussed at length potential causes for lower urinary tract symptoms patient is experiencing. She otherwise denies hematuria, dysuria, foul smelling urine, changes to urinary stream, flank pain, fever, and or chills. She discusses her longstanding history of constipation. She reports having been on Linzess prior however has since ran out of refills. She discusses following up with Gastroenterology for a endoscopy and colonoscopy however is currently undergoing cardiac clearance. She otherwise offers no issues or concerns at this time. [facility] Medical History Asthma-COPD overlap syndrome Incontinence in female History of adenomatous polyp of colon Pneumonitis Bronchopneumonia Hypogammaglobulinemia Chronic rhinitis Dizziness Headache Hyperlipidemia HTN (hypertension) Diabetes COPD (chronic obstructive pulmonary disease) Surgical History S/P right coronary artery (RCA) stent placement H/O colonoscopy History of foot surgery History of toe surgery History of bunionectomy Family History Mother No problems noted. Father No problems noted. Social History Household Members: None Housing: Apartment Alcohol intake: never Patient Tobacco Use Status: Former Tobacco user Tobacco use type: Cigarette service: No Current occupational status: retired Sexual orientation: Straight/Heterosexual Gender identity: Female Review of Systems Const Reports as per HPI Eyes Reports no additional complaints ENT Reports as per HPI Card Reports as per HPI Resp Reports as per HPI GI Reports as per HPI Reports as per HPI Musc Reports no additional complaints Neuro Reports as per HPI Psych Reports no additional complaints Endo Reports no additional complaints Pradeep/Lymph Reports no additional complaints Aller/Immun Reports no additional complaints Physical Exam Const General: cooperative, healthy appearing, comfortable, no acute distress, well developed, alert and awake Orientation/consciousness: patient oriented x3 Limitations: no limitations HEENT Head: Yes normal to inspection, Yes normocephalic and Yes atraumatic Ears: hearing grossly normal bilaterally Eyes General: appearance normal, both eyes and all related structures Neck Neck: Yes normal visual inspection and Yes trachea midline Chest Chest palpation & inspection: normal inspection of the chest Resp Effort & Inspection: normal respiratory effort and able to speak in complete sentences Cardio Rate: regular rate GI Inspection: Yes normal to inspection General: Yes no CVA tenderness Back/Spine/Pelvis Back: no CVA tenderness Skin General skin exam: no rashes or lesions noted Neuro General: patient oriented x3 Extrem General: Yes normal to inspection Psych Appearance: grossly normal and well kempt Mental Status: mental status grossly normal Speech and movement: Normal speech and movement present and Clear speech present Affect: normal affect Attitude: cooperative Thought process: Normal thought process present Thought content: Normal thought content present Insight: Fair insight present (Psych) Judgement: Fair judgement present (Psych) Office Procedures Post Void Residual Post Residual Void Post Void Residual (PVR): 17 [id number] Void Residual by ultrasound Results AMB Urinalysis, Automated UA Leukoctes 500 Haritha/uL Last Edit by Rd Herrera on 09/04/23 15:22 UA Nitrite Negative Last Edit by Rd Herrera on 09/04/23 15:22 UA Urobilinogen 0.2 mg/dL Last Edit by BeGocaitlyn Herrera on 09/04/23 15:22 UA Protein 15 mg/dL Last Edit by Rd Herrera on 09/04/23 15:22 UA pH 6.[address] Herrera on 09/04/23 15:22 UA Blood 10 Jefe/uL Last Edit by Rd Herrera on 09/04/23 15:22 UA Specific [place] 1.[address] on 09/04/23 15:22 UA Ketone Negative Last Edit by Rd Herrera on 09/04/23 15:22 UA Bilirubin 0 mg/dL Last Edit by Rd Herrera on 09/04/23 15:22 UA Glucose 0 mg/dL Last Edit by Rd Almanzarzara on 09/04/23 15:22 Results Reviewed Results Reviewed: Laboratory Last Values Urine pH (Auto) 6.5 09/04/23 15:20 Specific [place] (Auto) 1.015 09/04/23 15:20 Urine Protein (Auto) 15 mg/dL 09/04/23 15:20 Glucose (UA)(Auto) 0 mg/dL 09/04/23 15:20 Urine Ketones (Auto) Negative 09/04/23 15:20 Urine Blood (Auto) 10 Jefe/uL 09/04/23 15:20 Urine Nitrite (Auto) Negative 09/04/23 15:20 Urine Bilirubin (Auto) 0 mg/dL 09/04/23 15:20 Urine Urobilinogen (Auto) 0.2 mg/dL 09/04/23 15:20 Leukocyte Esterase (Auto) 500 Haritha/uL 09/04/23 15:20 Assessment & Plan Assessment & Plan (1) H/O urinary retention: Code(s): Z87.898 - Personal history of other specified conditions (2) Urinary tract infection: Code(s): N39.0 - Urinary tract infection, site not specified (3) Sensation of pressure in bladder area: Code(s): R39.89 - Other symptoms and signs involving the genitourinary system (4) Urinary frequency: Code(s): R35.0 - Frequency of micturition Plan In office urinalysis results reviewed with the patient today; as noted above; will send for microgen testing; will await results for treatment of antibiotic therapy PVR 17ml's . Discussed bladder triggers/irritants. Discussed and stressed UTI prevention with D mannose supplement, vitamin-C, increasing fluid intake, behavioral therapy with timed voiding, perineal hygiene and postcoital voiding, and management of constipation with stool softeners and increased fiber intake. Continue to follow up with GI to assist with management of constipation. Will obtain retroperitoneal ultrasound for further assessment evaluation. Discussed at length potential causes for lower urinary tract symptoms patient is experiencing. Start Pyridium as discussed and prescribed. Follow-up in 1-3 month with PVR; or sooner with any issues, concerns, and or questions. Orders: Orders AMB Urinalysis Automated Today Z13.9 - Encounter for screening, unspecified US retroperitoneal comp Today R10.9 - Unspecified abdominal pain, R39.89 - Other symptoms and signs involving the genitourinary system AMB Post Void Residual by ultrasound Today N39.46 - Mixed incontinence Medications: New phenazopyridine (Pyridium) 100 mg PO TID 3 days 9 tabs 0RF Patient Instructions: The patient had an opportunity to ask questions regarding the treatment plan. All questions were answered. Physical exam, labs, and imaging were discussed and reviewed in detail. As well as risks, benefits, and discussion of treatment choices. No major barriers to understanding were identified. The patient expressed understanding and agreement with the above treatment plan. The patient was made aware they should contact our office by phone for worsening of their current condition, the appearance of new symptoms, or with any questions or concerns. Compliance is encouraged with any medications and follow up testing that is ordered. It is a privilege to be allowed the opportunity to participate in? your urological care.? Again, if you have any questions or concerns If you have any questions or concerns please do not hesitate to contact me. The office is [phone]. This note is constructed using voice recognition software. While every effort has been made to ensure accuracy court reporter errors may have been included. Yours sincerely, JAYLA Johns Coding Level of Care Code Est Pt Level 4 (58027) Diagnoses H/O urinary retention Z87.898 Acute cystitis without hematuria N39.0 Sensation of pressure in bladder area R39.89 Urinary frequency R35.0 CPT Codes Post Residual Void - PVR CPT Code: 01774-[id number] Void Residual by ultrasound ([id number])
== END 2023-09-04 15:43 | disposition home or self-care (01) ==
PROVIDERS: PCP Internal Medicine; Visit Provider Nurse Practitioner Family
DX: Z87.898 Personal history of other specified conditions (principal); N39.0 Urinary tract infection, site not specified; R39.89 Other symptoms and signs involving the genitourinary system; R35.0 Frequency of micturition; Z13.9 Encounter for screening, unspecified
CPT/HCPCS: 99214

== ENCOUNTER → 2023-09-04 14:25 | Outpatient (BNVA) | payer OTHER, SELFPAY | PROVIDERS: PCP Internal Medicine; Visit Provider Nurse Practitioner Family | DX: N39.0 Urinary tract infection, site not specified (principal); R39.89 Other symptoms and signs involving the genitourinary system; R35.0 Frequency of micturition; Z87.898 Personal history of other specified conditions | CPT/HCPCS: 51798; 81003; 99212 ==

== ENCOUNTER 2023-09-06 14:28 | Outpatient (REF) | payer OTHER, SELFPAY ==
--- NOTE | ~2023-09-06 | US_ITS ---
EXAMINATION: US RETROPERITONEAL COMPLETE (RENAL) CLINICAL INFORMATION: Flank pain, bladder pressure. COMPARISON: CT abdomen and pelvis 03/30/2023. X-ray abdomen KUB 07/27/2021. TECHNIQUE: Real-time imaging of the kidneys and bladder. FINDINGS: RIGHT KIDNEY: 9.2 x 5.4 x 4.7 cm (SAG x AP x TRV). The kidney is normal in size and contour. Increased cortical echogenicity. Renal cortical thickness is normal. No calculi or focal parenchymal lesions. No hydronephrosis. LEFT KIDNEY: 9.2 x 3.8 x 3.8 cm (SAG x AP x TRV). The kidney is normal in size and contour. Increased cortical echogenicity. Renal cortical thickness is normal. No calculi or focal parenchymal lesions. No hydronephrosis. BLADDER: Partially distended. Bilateral ureteral jets are not demonstrated. Prevoid bladder volume is 142 mL. Postvoid bladder volume is 42.5 mL. US/US retroperitoneal comp IMPRESSION: 1. No nephrolithiasis or hydronephrosis. 2. Increased cortical echogenicity of the bilateral kidneys suggesting chronic medical renal disease. 3. Mildly increased postvoid residual volume in the urinary bladder.
== END 2023-09-06 14:29 | disposition home or self-care (01) ==
LOC: HO.HMGCX 14:28
PROVIDERS: PCP Internal Medicine; Visit Provider Nurse Practitioner Family
DX: R39.89 Other symptoms and signs involving the genitourinary system (principal); R10.9 Unspecified abdominal pain
CPT/HCPCS: 76770

== ENCOUNTER 2023-09-11 13:43 | Outpatient (AMB) | payer OTHER, SELFPAY ==
[2023-09-11 15:00] VITALS: BP 146/68; PULSE 97; TEMP 36.6; O2SAT 93; BMI 31.8
--- NOTE | 2023-09-11 15:00 | MHC.OFFWIV ---
Intake Vital Signs 09/11/23 15:00 Height 5 ft 4 in Weight 185 lb 2 oz BMI 31.8 BP 146/68 H Blood Pressure Location Rt brachial Position Sitting Pulse 97 Pulse Source Pulse Oximeter Temp 97.9 F Temp Source Oral Pulse Oximetry (%) 93 Oxygen Delivery Method Room Air Intake Visit Reasons: EP Neck Pain Intake Note: Pt presents to the office today for neck pain. Pt states the neck pain has been going on for more than a week. Pt denies any falls. Pt states was diagnosed with covid about a month ago when she went to the ER for neck pain. Patient Tobacco Use Status: Former Tobacco user Allergies amoxicillin [Augmentin] Allergy (Mild, Verified 09/11/23 15:02) Rash clavulanic acid [From Augmentin] Allergy (Mild, Verified 09/11/23 15:02) RASH HPI HPI Comments History of Present Illness Details Patient presents to the walk-in today for sick visit Complaining of neck pain, chronic in nature. She was evaluated in the emergency room last month, underwent a CT scan. Results as per below. She is currently followed by a charge entry specialist, had injections approximately 4 months ago. She called them but they are unable to see her until September 18. Her last visit in the ER she was given IM injection of Toradol which helped her pain, discharged with muscle relaxer lidocaine patches and oral nonsteroidal anti-inflammatory medications. Reports the lidocaine patches were unsuccessful as they did not stick. She reports not taking any nonsteroidal anti-inflammatory medications in the last 24 hours, she has not on blood thinners. She has requesting a Toradol injection today. Patient denies any changes in her pain other than it persisting. Denies red flag symptoms. [facility] Medical History Asthma-COPD overlap syndrome Incontinence in female History of adenomatous polyp of colon Pneumonitis Bronchopneumonia Hypogammaglobulinemia Chronic rhinitis Dizziness Headache Hyperlipidemia HTN (hypertension) Diabetes COPD (chronic obstructive pulmonary disease) Surgical History S/P right coronary artery (RCA) stent placement H/O colonoscopy History of foot surgery History of toe surgery History of bunionectomy Family History Mother No problems noted. Father No problems noted. Social History Household Members: None Housing: Apartment Alcohol intake: never Patient Tobacco Use Status: Former Tobacco user Tobacco use type: Cigarette service: No Current occupational status: retired Sexual orientation: Straight/Heterosexual Gender identity: Female Review of Systems Const All systems reviewed & are unremarkable except as noted in HPI and below Physical Exam Vital Signs: Last Vital Signs Temp 97.9 F 09/11/23 15:00 Pulse 97 09/11/23 15:00 BP 146/68 H 09/11/23 15:00 Pulse Ox 93 09/11/23 15:00 Oxygen Delivery Method Room Air 09/11/23 15:00 BMI result Body Mass Index 31.8 General: awake, alert, oriented. Answers questions appropriately. Fully engaged in examination. Skin: warm, dry, intact HEENT: Normocephalic. Hearing intact. Cardiac: External chest normal in appearance. Respiratory: No cough, audible wheezing or stridor. Abdomen: without gross distension. MS: No obvious swelling or deformities. Cervical Spine: Visible inspection without gross abnormality Moderate tenderness throughout bilateral upper and middle trapezius Tender to palpation over paraspinal muscles Tender to palpation over cervical vertebrae Decreased cervical ROM in all planes Spurling compression test positive BUE strength 5/5 2+ radial pulses. Neurological: Oriented to person, place, time and situation. Thought process intact. Psychiatric: Appropriate mood and affect. Good judgment and insight. Office Meds ketorolac 30 mg/mL (1 mL) injection solution Performing Provider: Francia Rock APRN, [employer] CALIBRATOR Performing Location: [facility] Administered by: Cyndy Sosa RN on 09/11/23 16:02 Dose Route Admin Location Dispensed Lot Number Expiration Date [facility] Manager Qa 30 mg IM left gluteal 1 mL [id number] 08/17/24 3247-0799-94 [employer] Results Reviewed Results Reviewed: 08/03/2023 CT/CT cervical spine wo IV con IMPRESSION: * No acute imaging abnormalities within the cervical spine. * Severe multilevel degenerative disc disease, facet osteoarthritis and uncovertebral joint hypertrophy of the cervical spine. Multilevel spinal canal stenosis is noted at C3-C4, C4-C5, C5-C6 and C6-C7.. The neural foraminal stenosis of the cervical spine is worst on the right at C6-C7. * No soft tissue mass or hematoma. Assessment & Plan Assessment & Plan (1) Neck pain: Code(s): M54.2 - Cervicalgia (2) Cervical spondylosis: Code(s): M47.812 - Spondylosis without myelopathy or radiculopathy, cervical region (3) Cervical spinal stenosis: Code(s): M48.02 - Spinal stenosis, cervical region Plan Toradol 30 mg IM administered in the office Cyclobenzaprine 5 mg p.o. t.i.d. as needed, patient advised on cautions for use Naproxen 500 mg p.o. b.i.d. as needed. Patient advised on cautions for use. Do not start until tomorrow. Follow-up with spine specialists as planned on September 18. Follow-up with primary care doctor or return here for any new or worsening symptoms. Patient advised on red flag symptoms and when to seek treatment in the emergency room. All questions and concerns were answered, patient agrees with the plan. Orders: Orders AMB Ketorolac Injection Today M54.2 - Cervicalgia Medications: New cyclobenzaprine 5 mg PO TID PRN 20 tabs 0RF muscle spasm Changed From naproxen 500 mg PO BID 10 days PRN 20 tabs 0RF pain To naproxen Do not take with other anti-inflammatory medications. Do not start until 09/12/2023 500 mg PO BID PRN 20 tabs 0RF pain 10 days Coding Level of Care Code Est Pt Level 3 (49170) Diagnoses Neck pain M54.2 Cervical spondylosis M47.812 Cervical spinal stenosis M48.02
== END 2023-09-11 16:26 | disposition home or self-care (01) ==
PROVIDERS: PCP Internal Medicine; Visit Provider Registered Nurse Emergency
DX: M54.2 Cervicalgia (principal); M47.812 Spondylosis without myelopathy or radiculopathy, cervical region; M48.02 Spinal stenosis, cervical region
CPT/HCPCS: 96372; 99213; J1885

== ENCOUNTER 2023-09-26 15:10 | Outpatient (AMB) | payer OTHER, SELFPAY ==
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
[2023-09-26 15:32] VITALS: PULSE 89; O2SAT 95; BMI 31.7
== END 2023-09-26 15:58 | disposition home or self-care (01) ==
PROVIDERS: PCP Internal Medicine; Visit Provider Hospitalist
DX: R50.9 Fever, unspecified (principal); J44.1 Chronic obstructive pulmonary disease with (acute) exacerbation; J31.0 Chronic rhinitis; K21.9 Gastro-esophageal reflux disease without esophagitis; D80.1 Nonfamilial hypogammaglobulinemia; J44.89 Other specified chronic obstructive pulmonary disease
CPT/HCPCS: 99214

== ENCOUNTER 2023-09-26 15:10 | Outpatient (REF) | payer OTHER, SELFPAY ==
[2023-09-26 17:51] LABS: Influenza A PCR NEGATIVE (Negative); Influenza B PCR NEGATIVE (Negative); Resp Syncy Virus RNA Qual PCR NEGATIVE (Negative); SARS COV2 PCR INHOUSE NEGATIVE (Negative)
== END 2023-09-26 15:11 | disposition home or self-care (01) ==
LOC: HO.LNP 15:10
PROVIDERS: PCP Internal Medicine; Visit Provider Hospitalist
DX: J45.41 Moderate persistent asthma with (acute) exacerbation (principal); J44.1 Chronic obstructive pulmonary disease with (acute) exacerbation; J31.0 Chronic rhinitis; R50.9 Fever, unspecified; K21.9 Gastro-esophageal reflux disease without esophagitis; D80.1 Nonfamilial hypogammaglobulinemia
CPT/HCPCS: 0241U; 99212

== ENCOUNTER 2023-10-02 12:44 | Inpatient (IN) | payer OTHER, SELFPAY ==
--- NOTE | ~2023-10-02 | XR_ITS ---
EXAMINATION: XR CHEST CLINICAL INFORMATION: Chest pain COMPARISON: 09/26/2022 TECHNIQUE: 2 views of the chest were obtained. FINDINGS: No significant abnormality is noted involving the heart, lungs, mediastinum, bony thorax or soft tissues. Degenerative changes are present in the spine and both shoulders. XR/XR chest 2V IMPRESSION: Unremarkable examination.
[2023-10-02 12:53] VITALS: BP 179/92; PULSE 116; RESP 28; TEMP 36.8; O2SAT 98; BMI 31.5
--- NOTE | 2023-10-02 12:54 | ED_ITS ---
HPI - General Adult General Chief complaint: Dyspnea Stated complaint: Diff breathing Time Seen by Provider: 10/02/23 14:55 Source: patient and old records reviewed Mode of arrival: ambulatory Limitations: no limitations History of Present Illness HPI narrative: 77-year-old female nonsmoker with history of asthma -COPD overlap syndrome, use supplemental oxygen at home only if needed came in for worsening of breathing for the past few days, patient has been evaluated by her compensation business partner Dr. Maycol Infante who prescribed her 2 courses of antibiotic Z-Talib/Levaquin with no relief of her symptoms, patient reported worsening of her symptoms could not sleep last night from shortness of breath despite using supplemental oxygen, been having constant cough with no production of sputum, reported subjective fever 3-4 days ago. Related Data Home Medications ?Medication ?Instructions ?Recorded ?Confirmed atorvastatin 80 mg tablet 80 mg PO DAILY 03/21/20 11/18/21 cetirizine 10 mg tablet 10 mg PO DAILY 03/21/20 11/18/21 dexlansoprazole 60 mg 60 mg PO DAILY 03/21/20 11/18/21 capsule,biphase delayed release nitroglycerin 0.4 mg sublingual 0 mg sublingual 03/21/20 11/18/21 tablet albuterol sulfate 2.5 mg/3 mL mg inhalation Q4H PRN wheezing 04/28/20 11/18/21 (0.083 %) solution for nebulization melatonin 10 mg tablet 10 mg PO BEDTIME PRN 08/19/21 11/18/21 amlodipine 5 mg tablet 5 mg PO DAILY 09/02/21 11/18/21 aspirin 81 mg tablet,delayed 81 mg PO DAILY 09/02/21 11/18/21 release isosorbide mononitrate 30 mg 30 mg PO QAM 09/02/21 11/18/21 tablet,extended release 24 hr Oxygen Home Use 09/16/22 nebulizers 09/16/22 plecanatide 3 mg tablet (Trulance) 3 mg PO DAILY 09/16/22 cyclobenzaprine 5 mg tablet 5 mg PO BEDTIME PRN 07/19/23 metoprolol tartrate 50 mg tablet mg PO 09/04/23 Previous Rx's ?Medication ?Instructions ?Recorded cholecalciferol (vitamin D3) 50 50 mcg PO DAILY 30 days #30 caps 04/08/20 mcg (2,000 unit) capsule meclizine 25 mg tablet 25 mg PO BID PRN dizziness #14 tabs 04/02/22 fluticasone propionate 50 2 spray intranasal DAILY 30 days 08/11/22 mcg/actuation nasal #15.8 mL spray,suspension furosemide 20 mg tablet (Lasix) 10 mg (1/2 x 20 mg) PO DAILY 14 09/26/22 days #7 tabs fluticasone fur. 200 mcg-umeclid 1 inh inhalation DAILY 30 days #60 07/19/23 62.5 mcg-vilant 25 mcg ea inhalat.powder (Trelegy Ellipta) acetaminophen 500 mg tablet 500 mg PO Q6H PRN fever or pain 08/03/23 (Tylenol Extra Strength) #14 tabs cyclobenzaprine 5 mg tablet 5 mg PO Q8H PRN pain (scale score 08/03/23 7-10) 5 days #14 tabs lidocaine 5 % topical patch 1 patch topical DAILY PRN pain #30 08/03/23 (Lidoderm) ea phenazopyridine 100 mg tablet 100 mg PO TID 3 days #9 tabs 09/04/23 (Pyridium) cefixime 400 mg capsule 400 mg PO DAILY 7 days #7 caps 09/08/23 cyclobenzaprine 5 mg tablet 5 mg PO TID PRN muscle spasm #20 09/11/23 tabs naproxen 500 mg tablet 500 mg PO BID PRN pain 10 days #20 09/11/23 tabs metronidazole 500 mg tablet 500 mg PO DAILY 7 days #7 tabs 09/12/23 azelastine 137 mcg (0.1 %) nasal 2 spray intranasal BID 30 days #30 09/19/23 spray aerosol mL albuterol sulfate 90 mcg/actuation 2 puff PO Q4H PRN for wheezing #1 09/26/23 aerosol inhaler ea prednisone 20 mg tablet See Rx Instructions PO DAILY 10 09/26/23 days #15 tabs codeine 10 mg-guaifenesin 100 mg/5 10 ml PO Q4-6H PRN cough 14 days 10/02/23 mL oral liquid #473 mL levofloxacin 500 mg tablet 500 mg PO DAILY #7 tabs 10/02/23 Allergies Allergy/AdvReac Type Severity Reaction Status Date / Time amoxicillin [Augmentin] Allergy Mild Rash Verified 10/02/23 12:56 clavulanic acid Allergy Mild RASH Verified 10/02/23 12:56 [From Augmentin] Review of Systems 2 Review of Systems: All other systems are reviewed and are negative Constitutional: Reports as per HPI and Reports no additional constitutional complaints Eyes: Reports as per HPI and Reports no additional eye complaints Reports system reviewed and no additional complaints, except as documented Cardiovascular: Reports as per HPI and Reports no additional cardiovascular complaints Respiratory: Reports as per HPI and Reports no additional respiratory complaints Gastrointestinal: Reports as per HPI and Reports no additional gastrointestinal complaints Genitourinary: Reports no additional female genitourinary complaints Musculoskeletal: Reports no additional musculoskeletal complaints Skin/Breast: Reports system reviewed and no additional complaints, except as docu Psychiatric: Reports no additional psychiatric complaints Endocrine: Reports no additional endocrine complaints Hematologic/Lymphatic: Reports no additional hematologic/lymphatic complaints Allergic/Immunologic: Reports no additional allergic/immunologic complaints Reports system reviewed and no additional complaints, except as documented and Reports Abnormal speech present PMFSH Past Medical History Medical History Asthma-COPD overlap syndrome Incontinence in female History of adenomatous polyp of colon Pneumonitis Bronchopneumonia Hypogammaglobulinemia Chronic rhinitis Dizziness Headache Hyperlipidemia HTN (hypertension) Diabetes COPD (chronic obstructive pulmonary disease) Surgical History S/P right coronary artery (RCA) stent placement H/O colonoscopy History of foot surgery History of toe surgery History of bunionectomy Family History Family History Mother No problems noted. Father No problems noted. Social History Social History Household Members: None Housing: Apartment Alcohol intake: never Patient Tobacco Use Status: Former Tobacco user Tobacco use type: Cigarette Smoked in Last 30 Days: No Use of substances other than those prescribed or required for medical reasons: No Advance Directives: No service: No Current occupational status: retired Sexual orientation: Straight/Heterosexual Gender identity: Female Physical Exam ED Vital Signs: Vital Signs - 24 hr 10/02/23 12:53 10/02/23 15:28 10/02/23 16:31 Temperature 98.2 F Pulse Rate 116 H 102 H 96 Respiratory Rate 28 H 23 H 22 H Blood Pressure 179/92 H 143/71 H Pulse Oximetry 98 96 Oxygen Delivery Method Room Air Room Air BMI result Body Mass Index 31.5 Vital signs have been reviewed and appear to be correct. Blood pressure elevated. Heart rate elevated. Respiratory rate elevated. Temperature normal. Oxygen saturation normal. Appearance: Alert. Oriented X3. No acute distress. Head: Normal external exam. Normocephalic. Atraumatic. No Champion signs noted. No raccoon eyes noted Eyes: PERRLA. EOMI. Conjunctiva and sclera normal. Eyelids normal. ENT: TM's Normal. Pharynx normal. Uvula midline. Moist mucous membranes. No trismus noted. No drooling noted. No muffled voice noted. Neck: Normal inspection. Neck supple. FROM. No adenopathy. Thyroid Normal. No meningeal signs. No neck mass noted. CVS: Normal heart rate and rhythm. Heart sound normal. No murmurs noted. Pulses normal throughout. Respiratory: No respiratory distress. Painless inspiration. Breath sounds normal. prolonged expiratory wheezing with prolonged expiration. No accessory muscle usage noted or decreased air movement noted. Abdomen: Soft and nontender. Bowel sounds normal in all 4 quadrants. No distention noted. No organomegaly noted. No visible injury noted. Back: No CVA tenderness. Full range of motion noted. Skin: Skin warm and dry. Normal skin color. Normal skin turgor. No rashes/lesions/lacerations noted. Extremities: No lower extremity edema. Extremities exhibit normal range of motion. Extremities nontender. Neuro: Oriented X 3. Cranial nerve exam: II-XII are grossly intact No motor deficit. No sensory deficit. Reflexes normal. Course Course Course Narrative: RME- 69-year-old female presents for evaluation of shortness of breath. She reports her symptoms started 1 week ago. She saw her compensation business partner Dr. Infante 1 week ago and was given doxycycline and prednisone. She called the office yesterday and was prescribed cough medicine and Levaquin. She reports that she took 1 dose of Levaquin yesterday but could not feel the cough medicine due to cost. She has not hypoxic but she is tachycardic to about 115. Plan for labs, chest x-ray, viral swabs Reevaluation(s) Reevaluation #1: 77-year-old female history of asthma - COPD overlap syndrome presented worsening of difficulty breathing, patient was on 2 different course of antibiotic prescribed by her compensation business partner with no relief of her symptoms, patient required to use supplemental oxygen at home more than her usual, patient is positive for influenza A with no indication for bacterial infection Received 1 dose of Zosyn empirically. Slightly feels better with magnesium, Solu- Medrol, and bronchodilator. Admit the patient. Patient's symptoms is secondary to viral infection with no evidence of bacterial infection therefore patient do not meet criteria for sepsis. Time: 16:34 Medications Administered Generic Name Dose Route Start Last Admin Trade Name Freq PRN Reason Stop Dose Admin Magnesium Sulfate 2 gm in 50 mls @ 25 mls/hr 10/02/23 15:09 10/02/23 15:22 Magnesium Sulfate/H2o IV 10/02/23 17:08 25 mls/hr ONCE ONE Administration Discontinued Medications Generic Name Dose Route Start Last Admin Trade Name Freq PRN Reason Stop Dose Admin Albuterol Sulfate 2.5 mg/ 0 mg 10/02/23 16:28 10/02/23 16:31 Albuterol/Ipratropium 3 ml INHALE 10/02/23 16:29 1 dose ONCE ONE Administration Guaifenesin/Codeine Phosphate 10 ml 10/02/23 15:09 10/02/23 15:21 Guaifen/Codeine Sf 200/20/10ml 10 Ml Liquid PO 10/02/23 15:10 10 ml ONCE ONE Administration Piperacillin Sod/Tazobactam 50 mls @ 100 mls/hr 10/02/23 15:09 10/02/23 16:10 Sod 3.375 gm/ Sodium Chloride IV 10/02/23 15:38 Infused ONCE ONE Infusion Methylprednisolone Sodium Succinate 125 mg 10/02/23 15:09 10/02/23 15:21 Methylprednisolone Sod Succ 125 Mg/2 Ml Vial IVPUSH 10/02/23 15:10 125 mg ONCE ONE Administration Medical Decision Making Differential Diagnosis Differential Diagnoses: The differential diagnosis associated with the presentation includes ( COPD exacerbation, asthma exacerbation, viral respiratory infection, respiratory distress, severe anemia, electrolyte derangement.) Admission/Observation Consideration of admission/observation: Escalation of care including admission/observation considered Consult Healthcare Provider Management of the patient was discussed with: Hospitalist ( Dr. Carson) Lab Data MDM Lab Attestation statement: I reviewed the patient's lab results. 10/02/23 15:14 10/02/23 15:14 Labs: Lab Results 10/02/23 Range/Units 15:14 WBC 11.4 H (4.8-10.8) X10*3/uL RBC 4.05 L (4.20-5.50) X10*6/uL Hgb 12.3 (12.0-16.0) g/dl Hct 36.8 L (37.0-47.0) % MCV 90.9 (80.0-98.0) fL MCH 30.4 (27.0-33.0) pg MCHC 33.4 (31.0-35.0) g/dl RDW 15.9 (11.0-16.0) % Plt Count 289 (160-400) X10*3/uL MPV 10.4 (9.4-12.3) fL Immature Gran % (Auto) 1.0 H (0.0-0.4) % Neut % (Auto) 84.1 H (45-73) % Lymph % (Auto) 8.0 L (20-40) % [place] % (Auto) 6.8 (2-11) % Eos % (Auto) 0.0 (0-4) % Baso % (Auto) 0.1 (0-2) % Lymph # (Auto) 0.9 L (1.2-4.9) X10*3/uL [place] # (Auto) 0.8 (0.1-1.2) X10*3/uL Eos # (Auto) 0.0 (0.0-0.4) X10*3/uL Baso # (Auto) 0.0 (0.0-0.2) X10*3/uL Abs Immat Gran (auto) 0.11 H (0.00-0.03) X10*3/uL Absolute Neuts (auto) 9.6 H (2.0-8.3) x10*3/uL Absolute Nucleated RBC 0.000 (0.0-0.012) X10*3/uL Nucleated RBC % (auto) 0.0 (0.0-0.2) /100WBC Sodium 139 (135-145) mmol/L Potassium 4.9 (3.3-5.1) mmol/L Chloride 100 (96-108) mmol/L Carbon Dioxide 27 (22-29) mmol/L Anion Gap 17 (12-20) BUN 16 (9-16) mg/dL Creatinine 1.03 (0.5-1.4) mg/dL Estim Creat Clear Calc 46.9 Estimated GFR 52 Random Glucose 230 H (60-115) mg/dL Calcium 10.4 H (8.4-10.2) mg/dL Total Bilirubin 0.5 (0.0-1.0) mg/dL AST 21 (5-31) U/L ALT 31 (0-31) U/L Alkaline Phosphatase 81 (39-117) U/L Total Protein 7.6 (6.5-8.0) g/dL Albumin 4.3 (3.5-5.0) g/dL Lipase 19 (8-78) U/L Influenza Type A (PCR) POSITIVE A (Negative) Influenza Type B (PCR) NEGATIVE (Negative) RSV RNA Qual (PCR) NEGATIVE (Negative) SARS-CoV-2 RNA (RT-PCR) NEGATIVE (Negative) Independent Interpretation I performed an independent interpretation of an: Plain X-Ray ( chest: Unremarkable examination.) Radiology Impression Discussion of test interpretation with radiology: I have reviewed the radiologist's reading. Chronic Conditions Patient?s care impacted by: Other ( COPD.) Critical Care Time Critical Care Time Critical Care Time: Yes Total Critical Care Time: 45 Attestation: The patient was critically ill with a high probability of imminent or life- threatening deterioration. I spent greater than 30 minutes of discontinuous time evaluating the patient, delivering critical care at the bedside, discussing evaluating data with consultants. Critical care time does not include time spent performing separately billable procedures or teaching. Time spent performing critical care was 45 minutes. Discharge Plan Discharge Clinical Impression: COPD exacerbation, Influenza A Patient Disposition: Admitted As Inpatient Print Language: Com[place]an
--- NOTE | 2023-10-02 12:56 | ECG_ITS ---
Test Reason : CP Blood Pressure : / mmHG Vent. Rate : 111 BPM Atrial Rate : 111 BPM P-R Int : 120 ms QRS Dur : 070 ms QT Int : 306 ms P-R-T Axes : 076 044 047 degrees QTc Int : 416 ms Sinus tachycardia Otherwise normal ECG When compared with ECG of 03-AUG-2023 12:22, No significant change was found Referred By: Negro Stockton Electronically Signed By:SHERLYN LORENZO
[2023-10-02 15:20] LABS: MANUAL DIFF FLAG NO
[2023-10-02] MEDS: guaiFEN/Codeine SF 200/20/10ML 10 ML LIQUID PO (15:21)
[2023-10-02] MEDS: methylPREDNISolone Sod Succ 125 MG/2 ML VIAL IVPUSH (15:21)
[2023-10-02 15:22] LABS: Basophils Percent Auto 0.1 % (0-2); Hematocrit 36.8 % (37.0-47.0); Hemoglobin 12.3 g/dl (12.0-16.0); Imm Gran Abs Auto 0.11 X10*3/uL (0.00-0.03); Lymphocytes Absolute Auto 0.9 X10*3/uL (1.2-4.9); Mean Corpuscular HGB Conc 33.4 g/dl (31.0-35.0); Mean Corpuscular Hemoglobin 30.4 pg (27.0-33.0); Mean Corpuscular Volume 90.9 fL (80.0-98.0); Mean Platelet Volume 10.4 fL (9.4-12.3); Monocytes Absolute Auto 0.8 X10*3/uL (0.1-1.2); Monocytes Percent Auto 6.8 % (2-11); Neutrophils Absolute Auto 9.6 x10*3/uL (2.0-8.3); Neutrophils Percent Auto 84.1 % (45-73); Platelet Count 289 X10*3/uL (160-400); Red Blood Count 4.05 X10*6/uL (4.20-5.50); Red Cell Distribution Width 15.9 % (11.0-16.0); White Blood Count 11.4 X10*3/uL (4.8-10.8)
[2023-10-02] MEDS: Piperacillin Sodium/Tazobactam 3.375 GM in 0.9 % Sodium Chloride 50 ML IV (15:22)
[2023-10-02] MEDS: Magnesium Sulfate/H2O 2 GM/50 ML PIGGYBACK IV (15:22)
[2023-10-02 15:28] VITALS: BP 143/71; PULSE 102; RESP 23; O2SAT 96
[2023-10-02 15:37] LABS: Alanine Aminotransferase 31 U/L (0-31); Albumin Level 4.3 g/dL (3.5-5.0); Alkaline Phosphatase 81 U/L (39-117); Anion Gap 17 (12-20); Aspartate Amino Transferase 21 U/L (5-31); Bilirubin Total 0.5 mg/dL (0.0-1.0); Blood Urea Nitrogen 16 mg/dL (9-16); Calcium 10.4 mg/dL (8.4-10.2); Carbon Dioxide 27 mmol/L (22-29); Chloride 100 mmol/L (96-108); Creatinine Clr Calc Pharmacy 46.9; Estimated Glomerular Filt Rate 52; Glucose Random 230 mg/dL (60-115); Lipase 19 U/L (8-78); Potassium 4.9 mmol/L (3.3-5.1); Sodium 139 mmol/L (135-145); Total Protein 7.6 g/dL (6.5-8.0)
[2023-10-02 15:59] LABS: Influenza A PCR POSITIVE (Negative); Influenza B PCR NEGATIVE (Negative); Resp Syncy Virus RNA Qual PCR NEGATIVE (Negative); SARS COV2 PCR INHOUSE NEGATIVE (Negative)
[2023-10-02 16:31] VITALS: PULSE 96; RESP 22; O2SAT 97
[2023-10-02] MEDS: Albuterol Sulfate 2.5 MG, Albuterol/Iprat 2.5/0.5MG 3 ML 3 ML INHALE (16:31)
--- NOTE | 2023-10-02 16:41 | PM.IMHP ---
History of Present Illness Date of Service: 10/02/23 Chief Complaint: sob 77F PMH COPD/ moderate persistent asthma, CAD, htn, hld, dm, obesity, presented with sob. Symptoms have been ongoing since 09/26/2023. Subjective fevers, chills, no sick contacts, orthopnea, cough. Patient was given prednisone without improvement. Symptoms worsening so came to the ED. in ED noted to have positive flu PCR. Chest x-ray unremarkable. Review of Systems Review of Systems: Yes all other systems are reviewed and are negative COUNTS INCLUDE 234 BEDS AT THE [facility] Medical History Asthma-COPD overlap syndrome Incontinence in female History of adenomatous polyp of colon Pneumonitis Bronchopneumonia Hypogammaglobulinemia Chronic rhinitis Dizziness Headache Hyperlipidemia HTN (hypertension) Diabetes COPD (chronic obstructive pulmonary disease) Family History Mother No problems noted. Father No problems noted. Surgical History S/P right coronary artery (RCA) stent placement H/O colonoscopy History of foot surgery History of toe surgery History of bunionectomy Social History Household Members: None Housing: Apartment Alcohol intake: never Patient Tobacco Use Status: Former Tobacco user Tobacco use type: Cigarette Smoked in Last 30 Days: No Use of substances other than those prescribed or required for medical reasons: No Advance Directives: No Nutrition Risks: No Nutritional Risk service: No Current occupational status: retired Sexual orientation: Straight/Heterosexual Gender identity: Female Meds Allergies Allergy/AdvReac Type Severity Reaction Status Date / Time amoxicillin [Augmentin] Allergy Mild Rash Verified 10/02/23 12:56 clavulanic acid Allergy Mild RASH Verified 10/02/23 12:56 [From Augmentin] Active Medications: Current Medications Albuterol/Ipratropium (Albuterol/Iprat 2.5/0.5mg 3 Ml Ampul.Neb) 3 ml INHALE RQ4H WHILE AWAKE AMANDA Azithromycin (Azithromycin 500 Mg Tablet) 500 mg PO Q24H AMANDA Magnesium Sulfate (Magnesium Sulfate/H2o) 2 gm in 50 mls @ 25 mls/hr IV ONCE ONE Stop: 10/02/23 17:08 Last Admin: 10/02/23 15:22 Dose: 25 mls/hr Methylprednisolone Sodium Succinate (Methylprednisolone Sod Succ 40 Mg/Ml Vial) 40 mg IVPUSH Q12H AMANDA Oseltamivir Phosphate (Oseltamivir Phosphate 75 Mg Capsule) 75 mg PO Q12H AMANDA Stop: 10/07/23 04:46 Sodium Chloride (0.9 % Sodium Chloride Flush 3 Ml Syringe) 3 ml IVFLUSH QSHIFT [facility] Home Medications ?Medication ?Instructions ?Recorded ?Confirmed ?Last Taken ?Type cetirizine 10 mg tablet 10 mg PO DAILY 03/21/20 10/02/23 10/01/23 History dexlansoprazole 60 mg 60 mg PO DAILY 03/21/20 10/02/23 10/01/23 History capsule,biphase delayed release nitroglycerin 0.4 mg sublingual 0.4 mg sublingual ONCE PRN Chest 03/21/20 10/02/23 Unknown History tablet Pain albuterol sulfate 2.5 mg/3 mL 2.5 mg inhalation Q4H PRN wheezing 04/28/20 10/02/23 Unknown History (0.083 %) solution for nebulization melatonin 10 mg tablet 10 mg PO BEDTIME PRN Sleep 08/19/21 10/02/23 10/01/23 History aspirin 81 mg tablet,delayed 81 mg PO DAILY 09/02/21 10/02/23 10/01/23 History release isosorbide mononitrate 30 mg 30 mg PO DAILY 09/02/21 10/02/23 10/01/23 History tablet,extended release 24 hr Oxygen Home Use 09/16/22 Unknown History nebulizers 09/16/22 Unknown History metoprolol tartrate 50 mg tablet 75 mg PO DAILY 09/04/23 10/02/23 10/01/23 History doxycycline hyclate 100 mg capsule 100 mg PO BID 10/02/23 10/02/23 10/01/23 History prednisone 20 mg tablet 20 mg PO DAILY 10/02/23 10/02/23 Unknown History Physical Exam Vital Signs and Narrative: Vital Signs: Last Vital Signs Temp 98.2 F 10/02/23 12:53 Pulse 96 10/02/23 16:31 Resp 22 H 10/02/23 16:31 BP 143/71 H 10/02/23 15:28 Pulse Ox 96 10/02/23 15:28 O2 Del Method Room Air 10/02/23 15:28 BMI result Body Mass Index 31.5 General: AO X 3, sob Resp: wheezing bilateral, mild accessory muscles used CVS: S1,S2,RRR GI: soft, non tender, non distended Neuro: motor grossly intact, alert Psych: appropriate affect, appropriate insight Results Labs 10/02/23 15:14 10/02/23 15:14 Labs: Laboratory Results - last 24 hr 10/02/23 15:14 MCV 90.9 MCH 30.4 MCHC 33.4 RDW 15.9 Plt Count 289 MPV 10.4 Immature Gran % (Auto) 1.0 H Neut % (Auto) 84.1 H Lymph % (Auto) 8.0 L [place] % (Auto) 6.8 Eos % (Auto) 0.0 Baso % (Auto) 0.1 Lymph # (Auto) 0.9 L [place] # (Auto) 0.8 Eos # (Auto) 0.0 Baso # (Auto) 0.0 Abs Immat Gran (auto) 0.11 H Absolute Neuts (auto) 9.6 H Absolute Nucleated RBC 0.000 Nucleated RBC % (auto) 0.0 Anion Gap 17 Estim Creat Clear Calc 46.9 Estimated GFR 52 Random Glucose 230 H Calcium 10.4 H Total Bilirubin 0.5 AST 21 ALT 31 Alkaline Phosphatase 81 Total Protein 7.6 Albumin 4.3 Lipase 19 Influenza Type A (PCR) POSITIVE A Influenza Type B (PCR) NEGATIVE RSV RNA Qual (PCR) NEGATIVE SARS-CoV-2 RNA (RT-PCR) NEGATIVE Imaging Radiologist's Impressions: Impressions Chest X-Ray 10/02/23 13:10 IMPRESSION: Unremarkable examination. Assessment and Plan (1) Influenza A: Status: Acute Plan 77F PMH COPD/ moderate persistent asthma, CAD, htn, hld, dm, obesity, presented with sob COPD/moderate persistent asthma with acute decompensation due to flu IV steroids, DuoNebs, Tamiflu, azithromycin Coronary disease Continue aspirin Hypertension Imdur, metoprolol Diabetes Insulin sliding scale, check A1c obesity weight loss dvt prophylaxis - lovenox full code Patient with significant shortness of breath due to COPD/flu, and risk for further decompensation due to history of CAD, obesity, advanced age. Therefore expected require at least 2 midnights inpatient. Quality Stroke Does the patient have a stroke diagnosis?: No VTE Prior VTE?: No VTE Risk Level:: Medical - moderate - high VTE Device Contraindication: Treatment Not Indicated VTE Drug Contraindication: N/A - Med Ordered
[2023-10-02] MEDS: Oseltamivir Phosphate 75 MG CAPSULE PO (17:08)
[2023-10-02] MEDS: methylPREDNISolone Sod Succ 40 MG/ML VIAL IVPUSH (17:16)
[2023-10-02 17:40] VITALS: BP 120/63; PULSE 129; RESP 20; O2SAT 96
--- NOTE | 2023-10-02 18:08 | PHA.MEDREC ---
Pharmacy Consult ? Medication Reconciliation Pharmacy has completed the medication reconciliation. SPOKE TO PT TO CONFIRM MEDS. SHE IS TAKING 10 DAYS OF PREDNISONE AND DOXYCYCLINE STARTED ON 09/25. THE PREDNISONE WAS 40 MG FOR 5 DAYS AND SHE IS NOW ON THE SECOND HALF OF THE TAPER FOR 20 MG FOR THE OTHER 5 DAYS.
[2023-10-02 20:43] VITALS: BP 131/67; PULSE 124; RESP 24; TEMP 37; O2SAT 97
[2023-10-02 20:51] LABS: Glucose, Whole Blood 496 mg/dL (60-115)
--- NOTE | 2023-10-02 21:04 | PC.NURSE ---
Patient's HS POC [id number], reached out to monorail charger operator provider, medicated per new orders see anthony, recheck poc in 2 hours.
[2023-10-02] MEDS: Insulin Lispro 100 UNIT/ML 3 ML VIAL SUBCUT (21:08)
[2023-10-02] MEDS: 0.9 % Sodium Chloride 500 ML IV (21:09)
[2023-10-02 22:31] LABS: Glucose, Whole Blood 450 mg/dL (60-115)
[2023-10-02] MEDS: Insulin Regular, Human 100 UNIT/ML 3 ML VIAL 10 UNIT IVPUSH (22:36)
[2023-10-03] VITALS (7 sets, daily range): BP systolic 144–177; BP diastolic 65–86; PULSE 106–119; RESP 16–20; TEMP 36.2–36.4; O2SAT 93–100
[2023-10-03 00:57] LABS: Basophils Percent Auto 0.1 % (0-2); Hematocrit 34.8 % (37.0-47.0); Hemoglobin 11.9 g/dl (12.0-16.0); Imm Gran Abs Auto 0.09 X10*3/uL (0.00-0.03); Lymphocytes Absolute Auto 0.5 X10*3/uL (1.2-4.9); Lymphocytes Percent Auto 5.4 % (20-40); MANUAL DIFF FLAG NO; Mean Corpuscular HGB Conc 34.2 g/dl (31.0-35.0); Mean Corpuscular Hemoglobin 30.7 pg (27.0-33.0); Mean Corpuscular Volume 89.9 fL (80.0-98.0); Mean Platelet Volume 10.5 fL (9.4-12.3); Monocytes Absolute Auto 0.4 X10*3/uL (0.1-1.2); Neutrophils Absolute Auto 8.2 x10*3/uL (2.0-8.3); Neutrophils Percent Auto 89.5 % (45-73); Platelet Count 267 X10*3/uL (160-400); Red Blood Count 3.87 X10*6/uL (4.20-5.50); White Blood Count 9.2 X10*3/uL (4.8-10.8)
[2023-10-03 01:15] LABS: Lactic Acid 3.9 mmol/L (0.5-2.0)
[2023-10-03 01:16] LABS: Anion Gap 17 (12-20); Blood Urea Nitrogen 17 mg/dL (9-16); Calcium 9.7 mg/dL (8.4-10.2); Carbon Dioxide 24 mmol/L (22-29); Chloride 104 mmol/L (96-108); Creatinine Clr Calc Pharmacy 37.2; Estimated Glomerular Filt Rate 40; Glucose Random 283 mg/dL (60-115); Magnesium 2.1 mg/dL (1.6-2.6); Sodium 141 mmol/L (135-145)
[2023-10-03] MEDS: Lactated Ringers 1,000 ML 999 ML IV ×2 (01:30→02:28)
--- NOTE | 2023-10-03 01:30 | PM.EVENT ---
Event Note Date of Service: 10/03/23 Event Note: Tachypnea, tachycardia and markedly elevated lactic acid (3.9 reported to me at 1:17 AM). Diagnosed with COPD exacerbation and influenza infection. Received 500 ml NS (given at 8:49 PM for hyperglycemia). On azithromycin and Tamiflu. Blood cultures were already obtained. Two boluses (1L each) of LR ordered over 2 hours. Will continue to monitor lactic acid. Time Spent With Patient Time: Total time managing care of this patient today ____ minutes.
--- NOTE | 2023-10-03 01:30 | PM.SEPSIS ---
Sepsis Event Note Evaluation Sepsis screening result: No Definite Risk Current stage of sepsis: sepsis Reason for ruling out sepsis: DELETED NOTE Focused Exam Vital signs: Vital Signs Temp Pulse Resp BP Pulse Ox O2 Del Method 10/02/23 20:43 98.6 F 124 H 24 H 131/67 97 Room Air 10/02/23 17:40 129 H 20 120/63 96 Room Air 10/02/23 16:31 96 22 H 10/02/23 15:28 102 H 23 H 143/71 H 96 Room Air Date exam was performed: 10/03/23 Time exam was performed: 18:58 Problem List (1) Influenza A: Status: Acute (2) Severe sepsis: Status: Acute
[2023-10-03 02:56] LABS: Reflex Lactate? Lactic Acid Added
[2023-10-03 04:42] LABS: Hematocrit 33.9 % (37.0-47.0); Hemoglobin 11.5 g/dl (12.0-16.0); Mean Corpuscular HGB Conc 33.9 g/dl (31.0-35.0); Mean Corpuscular Hemoglobin 30.6 pg (27.0-33.0); Mean Corpuscular Volume 90.2 fL (80.0-98.0); Mean Platelet Volume 10.5 fL (9.4-12.3); Platelet Count 250 X10*3/uL (160-400); Red Blood Count 3.76 X10*6/uL (4.20-5.50); Red Cell Distribution Width 15.9 % (11.0-16.0); White Blood Count 7.8 X10*3/uL (4.8-10.8)
[2023-10-03 04:58] LABS: Anion Gap 17 (12-20); Blood Urea Nitrogen 16 mg/dL (9-16); Calcium 9.1 mg/dL (8.4-10.2); Carbon Dioxide 23 mmol/L (22-29); Chloride 104 mmol/L (96-108); Creatinine Clr Calc Pharmacy 48.4; Estimated Glomerular Filt Rate 54; Glucose Fasting 230 mg/dL (60-99); Magnesium 1.9 mg/dL (1.6-2.6); Potassium 3.9 mmol/L (3.3-5.1); Sodium 140 mmol/L (135-145)
[2023-10-03 05:02] LABS: B Type Natriuretic Peptide 52 pg/mL (<100)
[2023-10-03 05:03] LABS: ~Lactic Acid-LAB USE ONLY 3.4 mmol/L (0.5-2.0)
[2023-10-03] MEDS: methylPREDNISolone Sod Succ 40 MG/ML VIAL IVPUSH ×2 (05:21→17:21)
[2023-10-03] MEDS: Lactated Ringers 1,000 ML 100 ML IVCONT ×2 (05:21→15:33)
[2023-10-03] MEDS: Acetaminophen 325 MG TABLET 650 MG PO ×2 (05:28→22:11)
[2023-10-03] MEDS: Omeprazole 40 MG CAPSULE.DR PO (05:29)
[2023-10-03 06:39] LABS: Reflex Lactate? 2 Y
[2023-10-03 07:35] LABS: Glucose, Whole Blood 255 mg/dL (60-115)
[2023-10-03 07:46] LABS: Estimated Average Glucose 140 mg/dL; Hemoglobin A1c % 6.5 % (<6.0)
[2023-10-03] MEDS: Albuterol/Iprat 2.5/0.5MG 3 ML AMPUL.NEB INHALE ×3 (07:52→19:31)
[2023-10-03] MEDS: Insulin Lispro 100 UNIT/ML 3 ML VIAL SUBCUT ×3 (08:25→22:11)
--- NOTE | 2023-10-03 08:36 | PC.NURSE ---
Late entry, assumed care of patient at 7:30, dinaher texted Valerie from pharmacy to bring meds that are not in [facility]. Patient reports 6/10 headache, reports not sleeping well overnight d/t cough. Patient requests water, water brought to bedside, no further needs at this time.
[2023-10-03 08:49] LABS: ~Lactic Acid-LAB USE ONLY 4.4 mmol/L (0.5-2.0)
--- NOTE | 2023-10-03 09:05 | PC.NURSE ---
CRITICAL LACTIC 4.4, DR. RAYMUNDO AT BEDSIDE AND IS AWARE. NO NEW ORDERS.
[2023-10-03] MEDS: Enoxaparin Sodium 40 MG/0.4 ML SYRINGE SUBCUT (09:28)
[2023-10-03] MEDS: Aspirin Enteric Coated 81 MG TABLET.DR PO (09:28)
[2023-10-03] MEDS: Loratadine 10 MG TABLET PO (09:29)
[2023-10-03] MEDS: Azithromycin 500 MG TABLET PO (09:29)
[2023-10-03] MEDS: Cholecalciferol (Vitamin D3) 25 MCG TABLET 50 MCG PO (09:29)
[2023-10-03] MEDS: Oseltamivir Phosphate 30 MG CAPSULE PO ×2 (09:29→18:06)
[2023-10-03] MEDS: Metoprolol Tartrate 25 MG TABLET 75 MG PO (09:29)
[2023-10-03] MEDS: Isosorbide Mononitrate 30 MG TAB.ER.24H PO (09:29)
--- NOTE | 2023-10-03 10:27 | MHC.EDTECH ---
This tech assisted this Pt to the bathroom to get washed up for the day. Pt did self care independently with everything setup by the sink for her. Pt is back in bed and requested a purewick due to some incontinence and not making it to the toilet on time.
--- NOTE | 2023-10-03 11:13 | HO.PM.IMPN ---
Subjective Subjective Date of Service: 10/03/23 Interval History: sob, cough Physical Exam Vital Signs: Vital Signs: Last Vital Signs Temp 97.5 F 10/03/23 05:47 Pulse 115 H 10/03/23 07:54 Resp 16 10/03/23 07:54 BP 177/86 H 10/03/23 05:47 Pulse Ox 96 10/03/23 05:47 O2 Del Method Room Air 10/03/23 05:47 BMI result Body Mass Index 31.5 General: AO X 3, no acute distress Resp: wheezing bilateral, no accessory muscles used CVS: S1,S2,RRR GI: soft, non tender, non distended Neuro: motor grossly intact, alert Psych: appropriate affect, appropriate insight Objective Data Active Medications Acetaminophen (Acetaminophen 325 Mg Tablet) 650 mg PO Q6H PRN PRN Reason: Pain, Mild (Pain Scale 1-3) Last Admin: 10/03/23 05:28 Dose: 650 mg Documented By: STACI Albuterol/Ipratropium (Albuterol/Iprat 2.5/0.5mg 3 Ml Ampul.Neb) 3 ml INHALE RQ4H WHILE AWAKE [facility] Last Admin: 10/03/23 07:52 Dose: 3 ml Documented By: [place] Aspirin (Aspirin Enteric Coated 81 Mg Tablet.) 81 mg PO DAILY [facility] Last Admin: 10/03/23 09:28 Dose: 81 mg Documented By: ALDO Azithromycin (Azithromycin 500 Mg Tablet) 500 mg PO Q24H [facility] Last Admin: 10/03/23 09:29 Dose: 500 mg Documented By: ALDO Enoxaparin Sodium (Enoxaparin Sodium 40 Mg/0.4 Ml Syringe) 40 mg SUBCUT Q24H [facility] Last Admin: 10/03/23 09:28 Dose: 40 mg Documented By: ALDO Glucose (Glucose Gel 15 Gm Gel..Gram.) 15 gm PO Q15M PRN; Protocol PRN Reason: per Hypoglycemia Standing Ord. Guaifenesin/Dextromethorphan (Guaifenesin Dm 100/10/5 Ml 5 Ml Syrup) 5 ml PO Q4H PRN PRN Reason: Cough Dextrose (D10) 250 mls @ 750 mls/hr IV Q15M PRN; Protocol PRN Reason: per Hypoglycemia Standing Ord. Lactated Ringer's (Lr) 1,000 mls @ 100 mls/hr IVCONT .Q10H [facility] Last Admin: 10/03/23 05:21 Dose: 100 mls/hr Documented By: STACI Insulin Human Lispro (Insulin Lispro 100 Unit/Ml 3 Ml Vial) 0 unit SUBCUT QIDACHS [facility]; Protocol Last Admin: 10/03/23 08:25 Dose: 8 unit Documented By: ALDO Isosorbide Mononitrate (Isosorbide Mononitrate 30 Mg Tab.Er.24h) 30 mg PO DAILY [facility]; Protocol Last Admin: 10/03/23 09:29 Dose: 30 mg Documented By: ALDO Loratadine (Loratadine 10 Mg Tablet) 10 mg PO DAILY [facility] Last Admin: 10/03/23 09:29 Dose: 10 mg Documented By: ALDO Melatonin (Melatonin 3 Mg Tablet) 3 mg PO BEDTIME PRN PRN Reason: Insomnia Methylprednisolone Sodium Succinate (Methylprednisolone Sod Succ 40 Mg/Ml Vial) 40 mg IVPUSH Q12H [facility] Last Admin: 10/03/23 05:21 Dose: 40 mg Documented By: STACI Metoprolol Tartrate (Metoprolol Tartrate 25 Mg Tablet) 75 mg PO DAILY [facility]; Protocol Last Admin: 10/03/23 09:29 Dose: 75 mg Documented By: ALDO Omeprazole (Omeprazole 40 Mg Capsule.Dr) 40 mg PO DAILY@0630 [facility] Last Admin: 10/03/23 05:29 Dose: 40 mg Documented By: STACI Ondansetron HCl (Ondansetron Hcl 4 Mg/2 Ml Vial) 4 mg IVPUSH Q8H PRN PRN Reason: Nausea and Vomiting Oseltamivir Phosphate (Oseltamivir Phosphate 30 Mg Capsule) 30 mg PO Q12H [facility] Stop: 10/07/23 07:01 Last Admin: 10/03/23 09:29 Dose: 30 mg Documented By: ALDO Sodium Chloride (0.9 % Sodium Chloride Flush 3 Ml Syringe) 3 ml IVFLUSH QSHIFT [facility] Last Admin: 10/03/23 09:07 Dose: Not Given Documented By: CHAPARRITA Non-Admin Reason: IV Running Vitamin D (Cholecalciferol (Vitamin D3) 25 Mcg Tablet) 50 mcg PO DAILY [facility] Last Admin: 10/03/23 09:29 Dose: 50 mcg Documented By: ALDO Labs 10/03/23 04:37 10/03/23 04:37 Labs: Laboratory Results - last 24 hr 10/02/23 10/02/23 10/02/23 15:14 20:30 22:26 MCV 90.9 MCH 30.4 MCHC 33.4 RDW 15.9 Plt Count 289 MPV 10.4 Immature Gran % (Auto) 1.0 H Neut % (Auto) 84.1 H Lymph % (Auto) 8.0 L Bollinger % (Auto) 6.8 Eos % (Auto) 0.0 Baso % (Auto) 0.1 Lymph # (Auto) 0.9 L Bollinger # (Auto) 0.8 Eos # (Auto) 0.0 Baso # (Auto) 0.0 Abs Immat Gran (auto) 0.11 H Absolute Neuts (auto) 9.6 H Absolute Nucleated RBC 0.000 Nucleated RBC % (auto) 0.0 Anion Gap 17 Estim Creat Clear Calc 46.9 Estimated GFR 52 POC Glucose 496 H* 450 H* Random Glucose 230 H Fasting Glucose Estimat Average Glucose Hemoglobin A1c % Lactic Acid Lactic Acid F/U @ 2Hr Lactic Acid F/U @ 4Hr Calcium 10.4 H Magnesium Total Bilirubin 0.5 AST 21 ALT 31 Alkaline Phosphatase 81 B-Natriuretic Peptide Total Protein 7.6 Albumin 4.3 Lipase 19 Influenza Type A (PCR) POSITIVE A Influenza Type B (PCR) NEGATIVE RSV RNA Qual (PCR) NEGATIVE SARS-CoV-2 RNA (RT-PCR) NEGATIVE 10/03/23 10/03/23 10/03/23 00:48 04:36 04:37 MCV 89.9 90.2 MCH 30.7 30.6 MCHC 34.2 33.9 RDW 16.0 15.9 Plt Count 267 250 MPV 10.5 10.5 Immature Gran % (Auto) 1.0 H Neut % (Auto) 89.5 H Lymph % (Auto) 5.4 L Bollinger % (Auto) 4.0 Eos % (Auto) 0.0 Baso % (Auto) 0.1 Lymph # (Auto) 0.5 L Bollinger # (Auto) 0.4 Eos # (Auto) 0.0 Baso # (Auto) 0.0 Abs Immat Gran (auto) 0.09 H Absolute Neuts (auto) 8.2 Absolute Nucleated RBC 0.000 0.000 Nucleated RBC % (auto) 0.0 0.0 Anion Gap 17 17 Estim Creat Clear Calc 37.2 48.4 Estimated GFR 40 54 POC Glucose Random Glucose 283 H Fasting Glucose 230 H Estimat Average Glucose 140 Hemoglobin A1c % 6.5 H Lactic Acid 3.9 H* Lactic Acid F/U @ 2Hr 3.4 H* Lactic Acid F/U @ 4Hr Calcium 9.7 D 9.1 D Magnesium 2.1 1.9 Total Bilirubin AST ALT Alkaline Phosphatase B-Natriuretic Peptide 52 Total Protein Albumin Lipase Influenza Type A (PCR) Influenza Type B (PCR) RSV RNA Qual (PCR) SARS-CoV-2 RNA (RT-PCR) 10/03/23 10/03/23 07:30 08:23 MCV MCH MCHC RDW Plt Count MPV Immature Gran % (Auto) Neut % (Auto) Lymph % (Auto) Bollinger % (Auto) Eos % (Auto) Baso % (Auto) Lymph # (Auto) Bollinger # (Auto) Eos # (Auto) Baso # (Auto) Abs Immat Gran (auto) Absolute Neuts (auto) Absolute Nucleated RBC Nucleated RBC % (auto) Anion Gap Estim Creat Clear Calc Estimated GFR POC Glucose 255 H Random Glucose Fasting Glucose Estimat Average Glucose Hemoglobin A1c % Lactic Acid Lactic Acid F/U @ 2Hr Lactic Acid F/U @ 4Hr 4.4 H* Calcium Magnesium Total Bilirubin AST ALT Alkaline Phosphatase B-Natriuretic Peptide Total Protein Albumin Lipase Influenza Type A (PCR) Influenza Type B (PCR) RSV RNA Qual (PCR) SARS-CoV-2 RNA (RT-PCR) Assessment and Plan (1) Influenza A: Status: Acute Plan 77F PMH COPD/ moderate persistent asthma, CAD, htn, hld, dm, obesity, presented with sob COPD/moderate persistent asthma with acute decompensation due to viral sepsis due to flu IV steroids, DuoNebs, Tamiflu, azithromycin Coronary disease Continue aspirin Hypertension Imdur, metoprolol 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
--- NOTE | 2023-10-03 12:47 | MHC.CM.PN ---
Met with patient in regards to d/c planning. Patient lives alone, ambulates with a cane/walker and has [facility] hours through [facility]. PCP verified. Copy of HCP obtained from Natalia of [facility]. IMM explained and signed. Patient's granddaughter, Zahraa will transport patient home when medically stable. Continue to monitor for d/c needs.
[2023-10-03 12:51] LABS: Glucose, Whole Blood 220 mg/dL (60-115)
--- NOTE | 2023-10-03 14:30 | PC.NURSE ---
Patient transferred from overflow bed 4 to 2 via hospital bed.
[2023-10-03 16:56] LABS: Glucose, Whole Blood 122 mg/dL (60-115)
[2023-10-03 20:33] LABS: Glucose, Whole Blood 325 mg/dL (60-115)
[2023-10-03] MEDS: Melatonin 3 MG TABLET PO (22:11)
[2023-10-03] MEDS: guaiFENesin DM 100/10/5 ML 5 ML SYRUP PO (22:11)
[2023-10-04] VITALS (9 sets, daily range): BP systolic 144–155; BP diastolic 70–94; PULSE 88–108; RESP 16–20; TEMP 36.1–36.8; O2SAT 93–97
[2023-10-04] MEDS: Lactated Ringers 1,000 ML 100 ML IVCONT ×3 (01:30→20:51)
[2023-10-04] MEDS: Oseltamivir Phosphate 30 MG CAPSULE PO ×2 (05:38→20:51)
[2023-10-04] MEDS: guaiFENesin DM 100/10/5 ML 5 ML SYRUP PO (05:38)
[2023-10-04] MEDS: Omeprazole 40 MG CAPSULE.DR PO (05:38)
[2023-10-04] MEDS: methylPREDNISolone Sod Succ 40 MG/ML VIAL IVPUSH ×2 (05:38→17:27)
[2023-10-04 06:02] LABS: Hematocrit 33.8 % (37.0-47.0); Hemoglobin 11.2 g/dl (12.0-16.0); Mean Corpuscular HGB Conc 33.1 g/dl (31.0-35.0); Mean Corpuscular Hemoglobin 30.2 pg (27.0-33.0); Mean Corpuscular Volume 91.1 fL (80.0-98.0); Mean Platelet Volume 10.8 fL (9.4-12.3); Platelet Count 272 X10*3/uL (160-400); Red Blood Count 3.71 X10*6/uL (4.20-5.50); Red Cell Distribution Width 16.1 % (11.0-16.0); White Blood Count 13.7 X10*3/uL (4.8-10.8)
[2023-10-04 06:15] LABS: Anion Gap 15 (12-20); Blood Urea Nitrogen 22 mg/dL (9-16); Calcium 9.2 mg/dL (8.4-10.2); Carbon Dioxide 25 mmol/L (22-29); Chloride 105 mmol/L (96-108); Creatinine Clr Calc Pharmacy 49.9; Estimated Glomerular Filt Rate 56; Glucose Fasting 144 mg/dL (60-99); Potassium 4.4 mmol/L (3.3-5.1); Sodium 141 mmol/L (135-145)
[2023-10-04 07:44] LABS: Glucose, Whole Blood 148 mg/dL (60-115)
[2023-10-04] MEDS: Metoprolol Tartrate 25 MG TABLET 75 MG PO (07:48)
[2023-10-04] MEDS: Azithromycin 500 MG TABLET PO (07:49)
[2023-10-04] MEDS: Enoxaparin Sodium 40 MG/0.4 ML SYRINGE SUBCUT (07:49)
[2023-10-04] MEDS: Isosorbide Mononitrate 30 MG TAB.ER.24H PO (07:49)
[2023-10-04] MEDS: Loratadine 10 MG TABLET PO (07:49)
[2023-10-04] MEDS: 0.9 % Sodium Chloride Flush 3 ML SYRINGE IVFLUSH ×2 (07:49→17:27)
[2023-10-04] MEDS: Cholecalciferol (Vitamin D3) 25 MCG TABLET 50 MCG PO (07:49)
[2023-10-04] MEDS: Aspirin Enteric Coated 81 MG TABLET.DR PO (07:49)
[2023-10-04] MEDS: Albuterol/Iprat 2.5/0.5MG 3 ML AMPUL.NEB INHALE ×3 (07:56→20:11)
--- NOTE | 2023-10-04 08:52 | MHC.CLN ---
NUTRITION DIET CHANGED TO DIABETIC 1800 KCAL. A1C=6.5 AND ELEVATED BLOOD GLUCOSE.
--- NOTE | 2023-10-04 09:33 | HO.PM.IMPN ---
Subjective Subjective Date of Service: 10/04/23 Interval History: still sob, having trouble getting mucus up Physical Exam Vital Signs: Vital Signs: Last Vital Signs Temp 98.2 F 10/04/23 07:16 Pulse 92 10/04/23 07:56 Resp 16 10/04/23 07:56 BP 152/74 H 10/04/23 07:49 Pulse Ox 97 10/04/23 07:16 O2 Del Method Nasal Cannula 10/04/23 07:16 O2 Flow Rate 2.0 10/04/23 07:16 BMI result Body Mass Index 31.5 General: AO X 3, no acute distress Resp: wheezing bilateral, some accessory muscles used CVS: S1,S2,RRR GI: soft, non tender, non distended Neuro: motor grossly intact, alert Psych: appropriate affect, appropriate insight Objective Data Active Medications Acetaminophen (Acetaminophen 325 Mg Tablet) 650 mg PO Q6H PRN PRN Reason: Pain, Mild (Pain Scale 1-3) Last Admin: 10/03/23 22:11 Dose: 650 mg Documented By: TEJA Albuterol/Ipratropium (Albuterol/Iprat 2.5/0.5mg 3 Ml Ampul.Neb) 3 ml INHALE RQ4H WHILE AWAKE [facility] Last Admin: 10/04/23 07:56 Dose: 3 ml Documented By: JEFF Aspirin (Aspirin Enteric Coated 81 Mg Tablet.Dr) 81 mg PO DAILY [facility] Last Admin: 10/04/23 07:49 Dose: 81 mg Documented By: ANGUS Azithromycin (Azithromycin 500 Mg Tablet) 500 mg PO Q24H [facility] Last Admin: 10/04/23 07:49 Dose: 500 mg Documented By: ANGUS Enoxaparin Sodium (Enoxaparin Sodium 40 Mg/0.4 Ml Syringe) 40 mg SUBCUT Q24H [facility] Last Admin: 10/04/23 07:49 Dose: 40 mg Documented By: ANGUS Glucose (Glucose Gel 15 Gm Gel..Gram.) 15 gm PO Q15M PRN; Protocol PRN Reason: per Hypoglycemia Standing Ord. Guaifenesin/Dextromethorphan (Guaifenesin Dm 100/10/5 Ml 5 Ml Syrup) 5 ml PO Q4H PRN PRN Reason: Cough Last Admin: 04/17/24 05:38 Dose: 5 ml Documented By: TEJA Dextrose (D10) 250 mls @ 750 mls/hr IV Q15M PRN; Protocol PRN Reason: per Hypoglycemia Standing Ord. Lactated Ringer's (Lr) 1,000 mls @ 100 mls/hr IVCONT .Q10H [facility] Last Admin: 10/04/23 01:30 Dose: 100 mls/hr Documented By: TEJA Insulin Human Lispro (Insulin Lispro 100 Unit/Ml 3 Ml Vial) 0 unit SUBCUT QIDACHS [facility]; Protocol Last Admin: 10/04/23 07:50 Dose: Not Given Documented By: ANGUS Non-Admin Reason: No Insulin Coverage Isosorbide Mononitrate (Isosorbide Mononitrate 30 Mg Tab.Er.24h) 30 mg PO DAILY [facility]; Protocol Last Admin: 10/04/23 07:49 Dose: 30 mg Documented By: ANGUS Loratadine (Loratadine 10 Mg Tablet) 10 mg PO DAILY [facility] Last Admin: 10/04/23 07:49 Dose: 10 mg Documented By: ANGUS Melatonin (Melatonin 3 Mg Tablet) 3 mg PO BEDTIME PRN PRN Reason: Insomnia Last Admin: 10/03/23 22:11 Dose: 3 mg Documented By: TEJA Methylprednisolone Sodium Succinate (Methylprednisolone Sod Succ 40 Mg/Ml Vial) 40 mg IVPUSH Q12H [facility] Last Admin: 10/04/23 05:38 Dose: 40 mg Documented By: TEJA Metoprolol Tartrate (Metoprolol Tartrate 25 Mg Tablet) 75 mg PO DAILY [facility]; Protocol Last Admin: 10/04/23 07:48 Dose: 75 mg Documented By: ANGUS Omeprazole (Omeprazole 40 Mg Capsule.Dr) 40 mg PO DAILY@0630 [facility] Last Admin: 10/04/23 05:38 Dose: 40 mg Documented By: TEJA Ondansetron HCl (Ondansetron Hcl 4 Mg/2 Ml Vial) 4 mg IVPUSH Q8H PRN PRN Reason: Nausea and Vomiting Oseltamivir Phosphate (Oseltamivir Phosphate 30 Mg Capsule) 30 mg PO Q12H [facility] Stop: 10/07/23 07:01 Last Admin: 10/04/23 05:38 Dose: 30 mg Documented By: TEJA Sodium Chloride (0.9 % Sodium Chloride Flush 3 Ml Syringe) 3 ml IVFLUSH QSHIFT [facility] Last Admin: 10/04/23 07:49 Dose: 3 ml Documented By: ANGUS Vitamin D (Cholecalciferol (Vitamin D3) 25 Mcg Tablet) 50 mcg PO DAILY [facility] Last Admin: 10/04/23 07:49 Dose: 50 mcg Documented By: ANGUS Labs 10/04/23 05:16 10/04/23 05:16 Labs: Laboratory Results - last 24 hr 10/03/23 10/03/23 10/03/23 12:48 16:49 20:12 MCV MCH MCHC RDW Plt Count MPV Absolute Nucleated RBC Nucleated RBC % (auto) Anion Gap Estim Creat Clear Calc Estimated GFR POC Glucose 220 H 122 H 325 H Fasting Glucose Calcium 10/04/23 10/04/23 05:16 07:22 MCV 91.1 MCH 30.2 MCHC 33.1 RDW 16.1 H Plt Count 272 MPV 10.8 Absolute Nucleated RBC 0.000 Nucleated RBC % (auto) 0.0 Anion Gap 15 Estim Creat Clear Calc 49.9 Estimated GFR 56 POC Glucose 148 H Fasting Glucose 144 H Calcium 9.2 Assessment and Plan (1) Influenza A: Status: Acute Plan 77F PMH COPD/ moderate persistent asthma, CAD, htn, hld, dm, obesity, presented with sob COPD/moderate persistent asthma with acute decompensation due to viral sepsis due to flu IV steroids, DuoNebs, Tamiflu, azithromycin will add mucinex Coronary disease Continue aspirin Hypertension Imdur, metoprolol 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
[2023-10-04] MEDS: guaiFENesin LA 600 MG TAB.ER.12H PO ×2 (10:14→20:50)
[2023-10-04 11:12] LABS: Glucose, Whole Blood 322 mg/dL (60-115)
[2023-10-04] MEDS: Insulin Lispro 100 UNIT/ML 3 ML VIAL SUBCUT ×2 (12:04→20:50)
--- NOTE | 2023-10-04 15:45 | MHC.CM.PN ---
pt not dcd today,dc plan remains home
[2023-10-04 17:23] LABS: Glucose, Whole Blood 126 mg/dL (60-115)
[2023-10-04 19:59] LABS: Glucose, Whole Blood 198 mg/dL (60-115)
[2023-10-05] MEDS: 0.9 % Sodium Chloride Flush 3 ML SYRINGE IVFLUSH ×2 (00:35→08:02)
[2023-10-05] MEDS: Acetaminophen 325 MG TABLET 650 MG PO (02:52)
[2023-10-05] MEDS: methylPREDNISolone Sod Succ 40 MG/ML VIAL IVPUSH (02:53)
[2023-10-05] MEDS: guaiFENesin DM 100/10/5 ML 5 ML SYRUP PO (02:53)
[2023-10-05 03:05] VITALS: BP 168/72; PULSE 117; RESP 18; TEMP 36.2; O2SAT 94
[2023-10-05] MEDS: Omeprazole 40 MG CAPSULE.DR PO (05:57)
[2023-10-05 06:57] VITALS: BP 158/72; PULSE 110; RESP 17; TEMP 36.6; O2SAT 94
[2023-10-05 07:08] LABS: Glucose, Whole Blood 182 mg/dL (60-115)
[2023-10-05] MEDS: Insulin Lispro 100 UNIT/ML 3 ML VIAL SUBCUT ×2 (07:59→12:01)
[2023-10-05 08:00] VITALS: BP 158/72; PULSE 110
[2023-10-05] MEDS: Metoprolol Tartrate 25 MG TABLET 75 MG PO (08:00)
[2023-10-05] MEDS: Enoxaparin Sodium 40 MG/0.4 ML SYRINGE SUBCUT (08:00)
[2023-10-05] MEDS: Azithromycin 500 MG TABLET PO (08:01)
[2023-10-05] MEDS: guaiFENesin LA 600 MG TAB.ER.12H PO (08:01)
[2023-10-05] MEDS: Oseltamivir Phosphate 30 MG CAPSULE PO (08:01)
[2023-10-05] MEDS: Isosorbide Mononitrate 30 MG TAB.ER.24H PO (08:01)
[2023-10-05] MEDS: Cholecalciferol (Vitamin D3) 25 MCG TABLET 50 MCG PO (08:01)
[2023-10-05] MEDS: Aspirin Enteric Coated 81 MG TABLET.DR PO (08:02)
[2023-10-05] MEDS: Loratadine 10 MG TABLET PO (08:02)
[2023-10-05 11:02] LABS: Glucose, Whole Blood 221 mg/dL (60-115)
--- NOTE | 2023-10-05 11:24 | P.DS_ITS ---
DS: Providers Provider Date of Service: 10/05/23 Date of admission: 10/02/23 16:39 Primary care physician: Kathy Rizo MD DS: Diagnosis Discharge Diagnosis (1) Influenza A: Status: Acute (2) COPD exacerbation: Status: Acute (3) Viral sepsis: Status: Acute (4) Hyperglycemia due to diabetes mellitus: Status: Acute DS: Summary Hospital Course Hospital Course: Admission note 77F PMH COPD/ moderate persistent asthma, CAD, htn, hld, dm, obesity, presented with sob. Symptoms have been ongoing since 09/26/2023. Subjective fevers, chills, no sick contacts, orthopnea, cough. Patient was given prednisone without improvement. Symptoms worsening so came to the ED. in ED noted to have positive flu PCR. Chest x-ray unremarkable. Hospital course The patient was treated wotj OV sterpods. nebulizers and antibiotics of Azithromycin for COPD exacerbation along with Tamiflu for the Flu A infection with good responseo pranay the course of hospital stay. was able to ambulate on room air with no reported dyspnea or chest pain. Discharge Plan Continue Prednisone as prescribed Tamiflu and Azithromycin for 3 more days USe your inhalors as prescribed Time Attestation Discharge Coordination Time (in mins): 38 Quality: Safe Use of Opioids Does Pt have an Active Cancer Diagnosis on the Problem List?: No Quality: Stroke Does the patient have a stroke diagnosis?: No Physical Exam Vital Signs: Vital Signs: Last Vital Signs Temp 98 F 10/05/23 06:57 Pulse 110 H 10/05/23 08:00 Resp 17 10/05/23 06:57 BP 158/72 H 10/05/23 08:00 Pulse Ox 94 10/05/23 06:57 O2 Del Method Room Air 10/05/23 06:57 O2 Flow Rate 2.0 10/04/23 07:16 BMI result Body Mass Index 31.5 Const: Other: Constitutional : Awake, interactive, not in distress Neck : Normal inspection, Supple Cardiovascular : RRR, no JVP, no lower extremity edema Respiratory : good bilateral air entry, no crackles, wheezes or rhonchi Gastrointestinal: soft, lax, Normal bowel sounds, Non tender Skin : Warm, Dry Neurological : Alert & oriented x3, No focal deficit , DS: Data Data Completed and Pending Labs on day of discharge: Laboratory Results - last 24 hr 10/04/23 10/04/23 10/05/23 17:19 19:51 07:03 POC Glucose 126 H 198 H 182 H 10/05/23 10:58 POC Glucose 221 H Imaging Chest x-ray: Radiologist's impression: ITS Impressions Chest X-Ray 10/02/23 13:10 IMPRESSION: Unremarkable examination. Discharge Plan Discharge Anticipated Discharge Date/Time: 10/05/23 11:17 Patient Disposition: Home, Self-Care Discharge Diagnosis: COPD exacerbation Flu A Referrals: Kathy Christopher MD [Primary Care Provider] - 1 Week Discharge Medications: New azithromycin 500 mg Tablet 500 mg PO Q24H Qty: 3 0RF oseltamivir 30 mg Capsule 30 mg PO Q12H Qty: 5 0RF guaifenesin [Mucinex] 600 mg Tablet Extended Release 12hr 600 mg PO BID Qty: 12 0RF prednisone 20 mg tablet 40 mg PO DAILY Qty: 6 0RF Continued cholecalciferol (vitamin D3) 50 mcg (2,000 unit) capsule 50 mcg PO DAILY 30 Days Qty: 30 3RF azelastine 137 mcg (0.1 %) aerosol,spray 2 spray intranasal BID 30 Days Qty: 30 6RF Rx Instructions: administer into each nostril lidocaine [Lidoderm] 5 % adhesive patch,medicated 1 patch topical DAILY MDD remove after 12 hours PRN (Reason: pain) Qty: 30 0RF Rx Instructions: leave on most painful area for up to 12 hrs prednisone 20 mg tablet 20 mg PO DAILY Rx Instructions: 10 DAY THERAPY STARTING 09/26/23 albuterol sulfate 2.5 mg /3 mL (0.083 %) solution for nebulization 2.5 mg inhalation Q4H PRN (Reason: wheezing) nitroglycerin 0.4 mg tablet, sublingual 0.4 mg sublingual ONCE PRN (Reason: Chest Pain) dexlansoprazole 60 mg capsule,biphase delayed releas 60 mg PO DAILY cetirizine 10 mg tablet 10 mg PO DAILY aspirin 81 mg tablet,delayed release (DR/EC) 81 mg PO DAILY isosorbide mononitrate 30 mg tablet extended release 24 hr 30 mg PO DAILY fluticasone propionate 50 mcg/actuation spray,suspension 2 spray intranasal DAILY 30 Days Qty: 15.8 11RF melatonin 10 mg tablet 10 mg PO BEDTIME PRN (Reason: Sleep) (DME) Oxygen Home Use Kit See Rx Instructions .Route Rx Instructions: As directed (DME) nebulizers Misc See Rx Instructions .Route Rx Instructions: As directed metoprolol tartrate 50 mg tablet 75 mg PO DAILY Trelegy Ellipta 200-62.5-25 mcg blister with device 1 inh inhalation DAILY 30 Days Qty: 60 12RF albuterol sulfate 90 mcg/actuation HFA aerosol inhaler 2 puff PO Q4H PRN (Reason: for wheezing) Qty: 1 11RF Discontinued doxycycline hyclate 100 mg capsule 100 mg PO BID Rx Instructions: 10 DAY TREATMENT STARTING 09/26/23 Discharge Orders: Discharge Order (Routine); Ordered 10/05/23 Ordered By: Ren Peterson Diet: Advance to usual diet Activity on Discharge: As tolerated Stand Alone Forms: Patient Portal Discharge page Print Language: Serbian Care Plan Goals: Read below Health Concerns: Read below Plan of Treatment: Read below Assessment: Continue Prednisone as prescribed Tamiflu and Azithromycin for 3 more days USe your inhalors as prescribed
== END 2023-10-05 13:08 | disposition home or self-care (01) | DRG 872 ==
LOC: HO.ED 16:33 → HO.EDOVER 16:44 → HO.S3 10-03 14:31
PROVIDERS: Internal Medicine; Physician Assistant; Admitting Provider Internal Medicine; Emergency Provider Emergency Medicine; PCP Internal Medicine; Visit Provider Student in an Organized Health Care Education/Training Program
DX: A41.89 Other specified sepsis (principal); J44.1 Chronic obstructive pulmonary disease with (acute) exacerbation; J45.41 Moderate persistent asthma with (acute) exacerbation; I10 Essential (primary) hypertension; E11.9 Type 2 diabetes mellitus without complications; Z68.31 Body mass index [BMI] 31.0-31.9, adult; I25.10 Atherosclerotic heart disease of native coronary artery without angina pectoris; J10.1 Influenza due to other identified influenza virus with other respiratory manifestations; Z20.822 Contact with and (suspected) exposure to COVID-19; Z99.81 Dependence on supplemental oxygen; Z79.51 Long term (current) use of inhaled steroids; Z79.52 Long term (current) use of systemic steroids; Z79.899 Other long term (current) drug therapy
CPT/HCPCS: 0241U; 36415; 71046; 80048; 80053; 82947; 83036; 83605; 83690; 83735; 83880; 85025; 85027; 93005; 94640; 99285; J1650; J2543; J2920; J2930; J3475; J7120

== ENCOUNTER → 2023-10-02 12:56 | Outpatient (BNV) | payer OTHER, SELFPAY | PROVIDERS: Admitting Provider Internal Medicine; Emergency Provider Emergency Medicine; PCP Internal Medicine; Visit Provider Internal Medicine | DX: R00.0 Tachycardia, unspecified (principal) | CPT/HCPCS: 93010 ==

== ENCOUNTER → 2023-10-02 16:39 | Outpatient (BNV) | payer OTHER, SELFPAY | PROVIDERS: Admitting Provider Internal Medicine; Emergency Provider Emergency Medicine; PCP Internal Medicine; Visit Provider Internal Medicine | DX: J10.1 Influenza due to other identified influenza virus with other respiratory manifestations (principal); J44.1 Chronic obstructive pulmonary disease with (acute) exacerbation; A41.89 Other specified sepsis; B97.89 Other viral agents as the cause of diseases classified elsewhere; E11.65 Type 2 diabetes mellitus with hyperglycemia | CPT/HCPCS: 99223; 99232; 99239; 99499 ==

== ENCOUNTER 2023-10-19 08:54 | Outpatient (AMB) | payer OTHER, SELFPAY ==
[2023-10-19 09:03] VITALS: PULSE 92; O2SAT 94; BMI 30.9
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
== END 2023-10-19 09:19 | disposition home or self-care (01) ==
PROVIDERS: PCP Internal Medicine; Visit Provider Hospitalist
DX: J44.1 Chronic obstructive pulmonary disease with (acute) exacerbation (principal); J31.0 Chronic rhinitis; K21.9 Gastro-esophageal reflux disease without esophagitis; D80.1 Nonfamilial hypogammaglobulinemia; J44.89 Other specified chronic obstructive pulmonary disease
CPT/HCPCS: 99214

== ENCOUNTER → 2023-10-19 08:54 | Outpatient (BNVA) | payer OTHER, SELFPAY | PROVIDERS: PCP Internal Medicine; Visit Provider Hospitalist | DX: J44.1 Chronic obstructive pulmonary disease with (acute) exacerbation (principal); J31.0 Chronic rhinitis; J44.89 Other specified chronic obstructive pulmonary disease; K21.9 Gastro-esophageal reflux disease without esophagitis; D80.1 Nonfamilial hypogammaglobulinemia | CPT/HCPCS: 99212 ==

== ENCOUNTER 2023-10-30 13:30 | Outpatient (AMB) | payer OTHER, SELFPAY ==
--- NOTE | 2023-10-30 13:39 | MHC.OFFVIS ---
Intake Visit Reasons: 2m/US(set) Intake Note: Patient presents for follow up visit for urinary incontinence and ultrasound results Imagin09/06/23 Urology Medications: none Blood Thinner: aspirin PVR: 25ml's. Community Living Specialist Required: No Accompanied by: Self / Same As Patient Allergies amoxicillin [Augmentin] Allergy (Mild, Verified 10/30/23 18:55) Rash clavulanic acid [From Augmentin] Allergy (Mild, Verified 10/30/23 18:55) RASH Medication List - Last Reconciled 10/30/23 by VLADIMIR Johns- albuterol sulfate 2.5 mg inhalation Q4H PRN albuterol sulfate 90 mcg/actuation 2 puffs PO Q4H PRN aspirin 81 mg PO DAILY azelastine 2 sprays intranasal BID 30 days cetirizine 10 mg PO DAILY cholecalciferol (vitamin D3) 50 mcg PO DAILY 30 days dexlansoprazole 60 mg PO DAILY fluticasone propionate 50 mcg/actuation 2 sprays intranasal DAILY 30 days eagapnyewjh-yhgjibpnv-sskyskon 200-62.5-25 mcg (Trelegy Ellipta) 1 inh inhalation DAILY 30 days guaifenesin ER (Mucinex) 600 mg PO BID isosorbide mononitrate ER 30 mg PO DAILY lidocaine 5% (Lidoderm) 1 patch topical DAILY PRN MDD remove after 12 hours melatonin 10 mg PO BEDTIME PRN metformin ER 500 mg PO DAILY metoprolol tartrate 75 mg PO DAILY nebulizers As directed nitroglycerin 0.4 mg sublingual ONCE PRN oseltamivir 30 mg PO Q12H Oxygen Home Use As directed HPI Comments Details: Shea is a very pleasant 78 year old female patient of Dr. Rizo. She has a history of pneumonitis, bronchopneumonia, chronic rhinitis, dizziness, headaches, hyperlipidemia, hypertension, diabetes, and COPD. She presents to the office today for follow-up of her lower urinary tract symptoms. Of note, patient was seen approximately 2 months ago at which time a retroperitoneal ultrasound was ordered for further assessment evaluation. These results reviewed with the patient today. Bilateral kidneys with no calculi, lesions, and or hydronephrosis. The bladder is partially distended. Bilateral ureteral jets are not demonstrated. Pre void bladder volume is approximately 140 mL. Postvoid bladder volume is approximately 40 mL. She discusses since her last office visit here she had been hospitalized for the flu. She reports to be recovering well. She discusses having celebrated her 78th birthday as well as mother's day with her family and gnosticist friends. She reports lower urinary tract symptoms she had been experience have since subsided. Previous urine culture noted mixed bacteria 09/09. Therefore urine was sent for Microgen 09/09 noted prevotella be via, Streptococcus anginosus, Dialister micraerophilus, Klebsiella pneumoniae, prevotella timonensis, and Enterococcus faecalis. She has since compelted flagyl and suprax as prescribed. In office urinalysis results reviewed with the patient today. 3+ leukocytes negative nitrates. Patient currently denies any UTI like symptoms. She reports feeling urinary symptoms have since subsided. She denies urinary urgency, urinary frequency, incontinence, nocturia, hematuria, dysuria, foul smelling urine, changes to urinary stream, flank pain, fever, and or chills. She is happy with her current voiding parameters. PVR 25 mL. She otherwise offers no issues or concerns at this time. [facility] Medical History Asthma-COPD overlap syndrome Incontinence in female History of adenomatous polyp of colon Pneumonitis Bronchopneumonia Hypogammaglobulinemia Chronic rhinitis Dizziness Headache Hyperlipidemia HTN (hypertension) Diabetes COPD (chronic obstructive pulmonary disease) Surgical History S/P right coronary artery (RCA) stent placement H/O colonoscopy History of foot surgery History of toe surgery History of bunionectomy Family History Mother No problems noted. Father No problems noted. 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) Alcohol intake: never Patient Tobacco Use Status: Former Tobacco user Tobacco use type: Cigarette Advance Directives Date on File: 10/03/23 service: No Current occupational status: retired Sexual orientation: Straight/Heterosexual Gender identity: Female Review of Systems Const Reports as per HPI Eyes Reports no additional complaints ENT Reports as per HPI Card Reports as per HPI Resp Reports as per HPI GI Reports as per HPI Reports as per HPI Musc Reports no additional complaints Neuro Reports as per HPI Psych Reports no additional complaints Endo Reports no additional complaints Pradeep/Lymph Reports no additional complaints Aller/Immun Reports no additional complaints Physical Exam Const General: cooperative, healthy appearing, comfortable, no acute distress, well developed, alert and awake Orientation/consciousness: patient oriented x3 Limitations: no limitations HEENT Head: Yes normal to inspection, Yes normocephalic and Yes atraumatic Ears: hearing grossly normal bilaterally Eyes General: appearance normal, both eyes and all related structures Neck Neck: Yes normal visual inspection and Yes trachea midline Chest Chest palpation & inspection: normal inspection of the chest Resp Effort & Inspection: normal respiratory effort and able to speak in complete sentences Cardio Rate: regular rate GI Inspection: Yes normal to inspection General: Yes no CVA tenderness Back/Spine/Pelvis Back: no CVA tenderness Skin General skin exam: no rashes or lesions noted Neuro General: patient oriented x3 Extrem General: Yes normal to inspection Psych Appearance: grossly normal and well kempt Mental Status: mental status grossly normal Speech and movement: Normal speech and movement present and Clear speech present Affect: normal affect Attitude: cooperative Thought process: Normal thought process present Thought content: Normal thought content present Insight: Fair insight present (Psych) Judgement: Fair judgement present (Psych) Office Procedures Post Void Residual Post Residual Void Post Void Residual (PVR): 25 53160-Pcad Void Residual by ultrasound Results AMB Urinalysis, Automated UA Leukoctes 500 Haritha/uL Last Edit by Runnit on 10/30/23 13:55 UA Nitrite Negative Last Edit by Runnit on 10/30/23 13:55 UA Urobilinogen 0.2 mg/dL Last Edit by Runnit on 10/30/23 13:55 UA Protein 15 mg/dL Last Edit by Runnit on 10/30/23 13:55 UA pH 6.0 Last Edit by Runnit on 10/30/23 13:55 UA Blood 0 Jefe/uL Last Edit by Runnit on 10/30/23 13:55 UA Specific Ashmore 1.015 Last Edit by Runnit on 10/30/23 13:55 UA Ketone Negative Last Edit by Runnit on 10/30/23 13:55 UA Bilirubin 0 mg/dL Last Edit by Rd Sharon on 10/30/23 13:55 UA Glucose 0 mg/dL Last Edit by Alexanderdamon Sharon on 10/30/23 13:55 Results Reviewed Results Reviewed: Laboratory Last Values Urine pH (Auto) 6.0 10/30/23 13:54 Specific Ash[place] (Auto) 1.015 10/30/23 13:54 Urine Protein (Auto) 15 mg/dL 10/30/23 13:54 Glucose (UA)(Auto) 0 mg/dL 10/30/23 13:54 Urine Ketones (Auto) Negative 10/30/23 13:54 Urine Blood (Auto) 0 Jefe/uL 10/30/23 13:54 Urine Nitrite (Auto) Negative 10/30/23 13:54 Urine Bilirubin (Auto) 0 mg/dL 10/30/23 13:54 Urine Urobilinogen (Auto) 0.2 mg/dL 10/30/23 13:54 Leukocyte Esterase (Auto) 500 Haritha/uL 10/30/23 13:54 Date of Service: 09/06/23 EXAMINATION: US RETROPERITONEAL COMPLETE (RENAL) FINDINGS: RIGHT KIDNEY: 9.2 x 5.4 x 4.7 cm (SAG x AP x TRV). The kidney is normal in size and contour. Increased cortical echogenicity. Renal cortical thickness is normal. No calculi or focal parenchymal lesions. No hydronephrosis. LEFT KIDNEY: 9.2 x 3.8 x 3.8 cm (SAG x AP x TRV). The kidney is normal in size and contour. Increased cortical echogenicity. Renal cortical thickness is normal. No calculi or focal parenchymal lesions. No hydronephrosis. BLADDER: Partially distended. Bilateral ureteral jets are not demonstrated. Prevoid bladder volume is 142 mL. Postvoid bladder volume is 42.5 mL. IMPRESSION: 1. No nephrolithiasis or hydronephrosis. 2. Increased cortical echogenicity of the bilateral kidneys suggesting chronic medical renal disease. 3. Mildly increased postvoid residual volume in the urinary bladder. Assessment & Plan Assessment & Plan (1) H/O urinary retention: Code(s): Z87.898 - Personal history of other specified conditions Category: Medical (2) Urinary tract infection: Code(s): N39.0 - Urinary tract infection, site not specified Category: Medical (3) Sensation of pressure in bladder area: Code(s): R39.89 - Other symptoms and signs involving the genitourinary system Category: Medical (4) Urinary frequency: Code(s): R35.0 - Frequency of micturition Category: Medical Plan In office urinalysis results reviewed with the patient today; as noted above. Patient has since finished antibiotic therapy for positive microgen results PVR 25ml's . Recent retroperitoneal ultrasound results reviewed with the patient today; as noted above. Patient currently denies any bothersome urinary issues or concerns. She reports be happy with current voiding parameters. Discussed bladder triggers/irritants. Discussed and stressed UTI prevention with D mannose supplement, vitamin-C, increasing fluid intake, behavioral therapy with timed voiding, perineal hygiene and postcoital voiding, and management of constipation with stool softeners and increased fiber intake. Discussed possible near future in office cystoscopy if symptoms arise. Follow-up in 3 months with PVR; or sooner with any issues, concerns, and or questions. Orders: Orders AMB Urinalysis Automated Today Z13.9 - Encounter for screening, unspecified AMB Post Void Residual by ultrasound Today R35.0 - Frequency of micturition Patient Instructions: The patient had an opportunity to ask questions regarding the treatment plan. All questions were answered. Physical exam, labs, and imaging were discussed and reviewed in detail. As well as risks, benefits, and discussion of treatment choices. No major barriers to understanding were identified. The patient expressed understanding and agreement with the above treatment plan. The patient was made aware they should contact our office by phone for worsening of their current condition, the appearance of new symptoms, or with any questions or concerns. Compliance is encouraged with any medications and follow up testing that is ordered. It is a privilege to be allowed the opportunity to participate in? your urological care.? Again, if you have any questions or concerns If you have any questions or concerns please do not hesitate to contact me. The office is [phone]. This note is constructed using voice recognition software. While every effort has been made to ensure accuracy tip mender errors may have been included. Yours sincerely, JAYLA Johns Coding Level of Care Code Est Pt Level 4 (30550) Diagnoses H/O urinary retention Z87.898 Acute cystitis without hematuria N39.0 Sensation of pressure in bladder area R39.89 Urinary frequency R35.0 CPT Codes Post Residual Void - PVR CPT Code: 20309-Pfid Void Residual by ultrasound ([id number]) Time Spent (min) 30
== END 2023-10-30 14:22 | disposition home or self-care (01) ==
PROVIDERS: PCP Internal Medicine; Visit Provider Nurse Practitioner Family
DX: Z87.898 Personal history of other specified conditions (principal); N39.0 Urinary tract infection, site not specified; R39.89 Other symptoms and signs involving the genitourinary system; R35.0 Frequency of micturition; Z13.9 Encounter for screening, unspecified
CPT/HCPCS: 99214

== ENCOUNTER → 2023-10-30 13:30 | Outpatient (BNVA) | payer OTHER, SELFPAY | PROVIDERS: PCP Internal Medicine; Visit Provider Nurse Practitioner Family | DX: N39.0 Urinary tract infection, site not specified (principal); R35.0 Frequency of micturition; R39.89 Other symptoms and signs involving the genitourinary system | CPT/HCPCS: 51798; 81003; 99212 ==

== ENCOUNTER 2023-11-17 12:52 | Outpatient (AMB) | payer OTHER, SELFPAY ==
[2023-11-17 12:59] VITALS: PULSE 90; O2SAT 92; BMI 30.9
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
== END 2023-11-17 13:13 | disposition home or self-care (01) ==
PROVIDERS: PCP Internal Medicine; Visit Provider Hospitalist
DX: J41.0 Simple chronic bronchitis (principal); J31.0 Chronic rhinitis; K21.9 Gastro-esophageal reflux disease without esophagitis; D80.1 Nonfamilial hypogammaglobulinemia
CPT/HCPCS: 99214

== ENCOUNTER → 2023-11-17 12:52 | Outpatient (BNVA) | payer OTHER, SELFPAY | PROVIDERS: PCP Internal Medicine; Visit Provider Hospitalist | DX: J44.89 Other specified chronic obstructive pulmonary disease (principal); J41.0 Simple chronic bronchitis; J31.0 Chronic rhinitis; K21.9 Gastro-esophageal reflux disease without esophagitis; D80.1 Nonfamilial hypogammaglobulinemia | CPT/HCPCS: 99212 ==

== ENCOUNTER → 2023-12-05 13:52 | Outpatient (REF) | payer OTHER, SELFPAY ==
--- NOTE | 2023-12-05 13:55 | CA_ITS ---
Transthoracic Echocardiogram Patient (Last, First, Middle): Shea Ramirez J Gender: Female Date of : 1945 Age: 78 Procedure Date: 12/05/2023 Procedure Type: Transthoracic Echocardiogram Location: OP Height: 162.56 cm Weight: 84.37 kg BSA: 1.90 m2 Heart Rate: bpm BP: 110 / 66 mmHg Form Builder: TO Referring MD: Maycol Infante MD Symptoms: I27.20 - Pulmonary hypertension, unspecified Study Quality: Fair ECG Rhythm: Sinus Conclusions: - The left ventricular systolic function is mildly decreased. The calculated ejection fraction is 51% by biplane method. - There is mildly decreased right ventricular systolic function. - No obvious valvular pathology seen on this study. - There is no evidence of pulmonary hypertension. Findings Procedure Information The study quality is limited by the patients inability to tolerate the test. Left Ventricle Normal left ventricular cavity size. There is normal left ventricular wall thickness. The left ventricular systolic function is mildly decreased. The calculated ejection fraction is 51% by biplane method. There is mild global hypokinesis. Evidence suggests grade I (mild) diastolic dysfunction. Right Ventricle Normal right ventricular cavity size. There is mildly decreased right ventricular systolic function. Atria Both atria are normal in size. Aortic Valve There is a normal trileaflet aortic valve. There is no aortic valve stenosis. There is no aortic valve regurgitation. Mitral Valve The mitral valve appears normal. There is mild mitral annular calcification. There is no mitral valve regurgitation. There is no mitral valve stenosis. Pulmonic Valve The pulmonic valve is likely normal. Tricuspid Valve There is trace tricuspid valve regurgitation. There is no evidence of pulmonary hypertension. Great Vessels The asc aorta is normal in size. Venous The inferior vena cava is normal in size and collapses greater than 50% with inspiration. Pericardium/Pleural Prominent epicardial adipose tissue noted. There is no evidence of pericardial effusion. Prior Study Comparison Changes noted compared to prior study dated: 01/04/2012. Slightly reduced LVEF/RVEF. Recommendations, Care & Conclusions No obvious valvular pathology seen on this study. Measurements 2D Linear Measurements IVSd: 0.92 0.6-0.9/0.6-1.0 cm LVIDd: 3.99 3.9-5.3/4.2-5.9 cm LVIDd Index: 2.10 2.4-3.2/2.2-3.1 cm/m2 LVIDs: 2.77 2.0-3.6 cm LVPWd: 0.80 0.7-1.1 cm LA Diam: 3.10 2.7-3.8/3.0-4.0 cm LAIDs Index: 1.63 1.5-2.3 cm/m2 LV Mass: 127.76 67-162/88-224 g LV Mass Index: 67.24 43-95/49-115 g/m2 LVOT Diam: 1.90 3.0+(-)1.3 cm 2D Systolic Function EF 4C: 51.30 >55% EF 2C: 51.60 >55% EF BiP: 51.10 >55% Mitral Valve MV VTI: 0.17 MV Pk Reese: 1.05 MV Mn Reese: 0.67 MV Pk Grad: 4.00 MV Mn Grad: 2.00 MV Pk E: 0.52 MV PK A: 0.98 MV Decel Time: 140.00 E/A: 0.50 E'Lateral: 7.29 E'Medial: 5.11 E/E' Med: 10.10 E/E' Lat: 7.10 PHT: 41.00 MVA PHT: 5.37 MVA Continuity: 2.50 Decel Sac: 3.70 Aortic Valve AoV Pk Reese: 1.16 AoV Mn Reese: 0.78 AoV VTI: 0.22 AoV Pk Grad: 5.00 Aov Mn Grad: 3.00 SONJA Cont.VTI: 1.91 LVOT LVOT Pk Reese: 0.68 LVOT Mn Reese: 0.45 LVOT VTI: 0.15 LVOT Pk Grad: 2.00 LVOT Mn Grad: 1.00 LVOT Diam: 1.90 LVOT Area: 2.84 Diastolic Function MV Pk E: 0.52 MV Pk A: 0.98 E/A: 0.50 E'Medial: 5.11 E/E' Med: 10.10 E' Laterial: 7.29 E/E' Lat: 7.10 Right Ventricle TAPSE (mm): 15.70 TVS' Reese: 8.81 Tricuspid Valve TR Pk Reese: 2.52 TR Pk Grad: 25.00 RA Press: 3.00 RVSP: 28.00 Great Vessels Aorta Sinus of Valsalva: 2.75 2.0-3.[address] [place]: 2.18 1.7-3.4 cm Ao Asc: 2.70 2.1-3.4 cm Updated in Other Vendor System with Status of Final Hollis Garg MD electronically signed on 12/06/2023 12:00:01 PM with status of Final
== END ==
LOC: HO.CARD 13:52
PROVIDERS: PCP Internal Medicine; Visit Provider Hospitalist
DX: I27.20 Pulmonary hypertension, unspecified (principal)
CPT/HCPCS: 93306

== ENCOUNTER → 2023-12-05 13:55 | Outpatient (BNV) | payer OTHER, SELFPAY | PROVIDERS: PCP Internal Medicine; Visit Provider Internal Medicine | DX: I34.81 Nonrheumatic mitral (valve) annulus calcification (principal) | CPT/HCPCS: 93306 ==

== ENCOUNTER 2024-01-30 14:18 | Outpatient (AMB) | payer OTHER, SELFPAY ==
--- NOTE | 2024-01-30 14:27 | MHC.OFFVIS ---
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 Accompanied by: Self / Same As Patient Allergies amoxicillin [Augmentin] Allergy (Mild, Verified 01/30/24 14:51) Rash clavulanic acid [From Augmentin] Allergy (Mild, Verified 01/30/24 14:51) RASH Medication List - Last Reconciled 01/30/24 by VLADIMIR Johns-JEREMY albuterol sulfate 2.5 mg inhalation Q4H PRN albuterol sulfate 90 mcg/actuation 2 puffs PO Q4H PRN aspirin 81 mg PO DAILY azelastine 2 sprays intranasal BID 30 days cetirizine 10 mg PO DAILY cholecalciferol (vitamin D3) 50 mcg PO DAILY 30 days dexlansoprazole 60 mg PO DAILY fluticasone propionate 50 mcg/actuation 2 sprays intranasal DAILY 30 days [id number] 200-62.5-25 mcg (Trelegy Ellipta) 1 inh inhalation DAILY 30 days guaifenesin ER (Mucinex) 600 mg PO BID isosorbide mononitrate ER 30 mg PO DAILY lidocaine 5% (Lidoderm) 1 patch topical DAILY PRN MDD remove after 12 hours melatonin 10 mg PO BEDTIME PRN metformin ER 500 mg PO DAILY metoprolol tartrate 75 mg PO DAILY nebulizers As directed nitroglycerin 0.4 mg sublingual ONCE PRN oseltamivir 30 mg PO Q12H Oxygen Home Use As directed HPI Comments Details: Shea is a very pleasant 78 year old female patient of Dr. Rizo. She has a history of pneumonitis, bronchopneumonia, chronic rhinitis, dizziness, headaches, hyperlipidemia, hypertension, diabetes, and COPD. She presents to the office today for follow-up of her lower urinary tract symptoms. In discussion with the patient today she reports to be doing and feeling well. She denies any bothersome urinary issues or concerns since her last office visit here approximately 3 months ago. In office urinalysis results reviewed with the patient today 3+ leukocytes negative nitrates. When asked she denies any UTI like symptoms. During previous office visits urinalysis have noted 3+ leukocytes and cultures were performed all noting mixed bacteria. Previous workup has included a retroperitoneal ultrasound noting bilateral kidneys with no calculi, lesions, and or hydronephrosis. The bladder is partially distended. Bilateral ureteral jets are not demonstrated. Pre void bladder volume is approximately 140 mL. Postvoid bladder volume is approximately 40 mL. She does report baseline urinary frequency however does not find this bothersome. She denies urinary urgency, incontinence, nocturia, hematuria, dysuria, foul smelling urine, changes to urinary stream, flank pain, fever, and or chills. She is happy with her current voiding parameters. PVR 0mls. She otherwise offers no issues or concerns at this time. [facility] Medical History Chronic respiratory failure Asthma-COPD overlap syndrome Incontinence in female History of adenomatous polyp of colon Pneumonitis Bronchopneumonia Hypogammaglobulinemia Chronic rhinitis Dizziness Headache Hyperlipidemia HTN (hypertension) Diabetes COPD (chronic obstructive pulmonary disease) Surgical History S/P right coronary artery (RCA) stent placement H/O colonoscopy History of foot surgery History of toe surgery History of bunionectomy Family History Mother No problems noted. Father No problems noted. 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) Alcohol intake: never Patient Tobacco Use Status: Former Tobacco user Tobacco use type: Cigarette Advance Directives Date on File: 10/03/23 service: No Current occupational status: retired Sexual orientation: Straight/Heterosexual Gender identity: Female Review of Systems Const Reports as per HPI Eyes Reports no additional complaints ENT Reports as per HPI Card Reports as per HPI Resp Reports as per HPI GI Reports as per HPI Reports as per HPI Musc Reports no additional complaints Neuro Reports as per HPI Psych Reports no additional complaints Endo Reports no additional complaints Pradeep/Lymph Reports no additional complaints Aller/Immun Reports no additional complaints Physical Exam Const General: cooperative, healthy appearing, comfortable, no acute distress, well developed, alert and awake Orientation/consciousness: patient oriented x3 Limitations: no limitations HEENT Head: Yes normal to inspection, Yes normocephalic and Yes atraumatic Ears: hearing grossly normal bilaterally Eyes General: appearance normal, both eyes and all related structures Neck Neck: Yes normal visual inspection and Yes trachea midline Chest Chest palpation & inspection: normal inspection of the chest Resp Effort & Inspection: normal respiratory effort and able to speak in complete sentences Cardio Rate: regular rate GI Inspection: Yes normal to inspection General: Yes no CVA tenderness Back/Spine/Pelvis Back: no CVA tenderness Skin General skin exam: no rashes or lesions noted Neuro General: patient oriented x3 Extrem General: Yes normal to inspection Psych Appearance: grossly normal and well kempt Mental Status: mental status grossly normal Speech and movement: Normal speech and movement present and Clear speech present Affect: normal affect Attitude: cooperative Thought process: Normal thought process present Thought content: Normal thought content present Insight: Fair insight present (Psych) Judgement: Fair judgement present (Psych) Office Procedures Post Void Residual Post Residual Void Post Void Residual (PVR): 0 [id number] Void Residual by ultrasound Results AMB Urinalysis, Automated UA Leukoctes 500 Haritha/uL Last Edit by [employer] on 01/30/24 14:59 UA Nitrite Negative Last Edit by [employer] on 01/30/24 14:59 UA Urobilinogen 0.2 mg/dL Last Edit by [employer] on 01/30/24 14:59 UA Protein 0 mg/dL Last Edit by [employer] on 01/30/24 14:59 UA pH 6.0 Last Edit by [employer] on 01/30/24 14:59 UA Blood 0 Jefe/uL Last Edit by [employer] on 01/30/24 14:59 UA Specific [place] 1.015 Last Edit by [employer] on 01/30/24 14:59 UA Ketone Negative Last Edit by [employer] on 01/30/24 14:59 UA Bilirubin 0 mg/dL Last Edit by [employer] on 01/30/24 14:59 UA Glucose 0 mg/dL Last Edit by [employer] on 01/30/24 14:59 Results Reviewed Results Reviewed: Laboratory Last Values Urine pH (Auto) 6.0 01/30/24 14:57 Specific [place] (Auto) 1.015 01/30/24 14:57 Urine Protein (Auto) 0 mg/dL 01/30/24 14:57 Glucose (UA)(Auto) 0 mg/dL 01/30/24 14:57 Urine Ketones (Auto) Negative 01/30/24 14:57 Urine Blood (Auto) 0 Jefe/uL 01/30/24 14:57 Urine Nitrite (Auto) Negative 01/30/24 14:57 Urine Bilirubin (Auto) 0 mg/dL 01/30/24 14:57 Urine Urobilinogen (Auto) 0.2 mg/dL 01/30/24 14:57 Leukocyte Esterase (Auto) 500 Haritha/uL 01/30/24 14:57 Assessment & Plan Assessment & Plan (1) H/O urinary retention: Code(s): Z87.898 - Personal history of other specified conditions Category: Medical (2) Urinary frequency: Code(s): R35.0 - Frequency of micturition Category: Medical Plan In office urinalysis results reviewed with the patient today; as noted above. PVR 0 mL. Patient currently denies any bothersome urinary issues or concerns. She reports be happy with current voiding parameters. Discussed bladder triggers/irritants. Discussed and stressed UTI prevention with D mannose supplement, vitamin-C, increasing fluid intake, behavioral therapy with timed voiding, perineal hygiene and postcoital voiding, and management of constipation with stool softeners and increased fiber intake. Discussed possible near future in office cystoscopy if symptoms arise. Follow-up in 6 months with PVR; or sooner with any issues, concerns, and or questions. Orders: Orders AMB Post Void Residual by ultrasound Today R35.0 - Frequency of micturition AMB Urinalysis Automated Today Z13.9 - Encounter for screening, unspecified Patient Instructions: The patient had an opportunity to ask questions regarding the treatment plan. All questions were answered. Physical exam, labs, and imaging were discussed and reviewed in detail. As well as risks, benefits, and discussion of treatment choices. No major barriers to understanding were identified. The patient expressed understanding and agreement with the above treatment plan. The patient was made aware they should contact our office by phone for worsening of their current condition, the appearance of new symptoms, or with any questions or concerns. Compliance is encouraged with any medications and follow up testing that is ordered. It is a privilege to be allowed the opportunity to participate in? your urological care.? Again, if you have any questions or concerns If you have any questions or concerns please do not hesitate to contact me. The office is [phone]. This note is constructed using voice recognition software. While every effort has been made to ensure accuracy chief nursing officer errors may have been included. Yours sincerely, VLADIMIR Johns-JEREMY Coding Level of Care Code Est Pt Level 3 (73199) Complex EM visit Add On G2211 Diagnoses H/O urinary retention Z87.898 Urinary frequency R35.0 CPT Codes Post Residual Void - PVR CPT Code: 96840-Smik Void Residual by ultrasound ([id number])
== END 2024-01-30 14:56 | disposition home or self-care (01) ==
PROVIDERS: PCP Internal Medicine; Visit Provider Nurse Practitioner Family
DX: Z87.898 Personal history of other specified conditions (principal); R35.0 Frequency of micturition; Z13.9 Encounter for screening, unspecified
CPT/HCPCS: 99213; G2211

== ENCOUNTER → 2024-01-30 14:18 | Outpatient (BNVA) | payer OTHER, SELFPAY | PROVIDERS: PCP Internal Medicine; Visit Provider Nurse Practitioner Family | DX: R35.0 Frequency of micturition (principal); Z87.898 Personal history of other specified conditions | CPT/HCPCS: 51798; 81003; 99212 ==

== ENCOUNTER 2024-02-07 10:09 | Outpatient (AMB) | payer OTHER, SELFPAY ==
--- NOTE | 2024-02-07 10:11 | AM.OFFWIN_ITS ---
Intake Vital Signs 02/07/24 10:12 Weight 180 lb BP 160/90 H Blood Pressure Location Lt brachial Position Sitting Pulse 105 H Pulse Source Pulse Oximeter Temp 99.2 F Temp Source Oral Pulse Oximetry (%) 98 Oxygen Delivery Method Room Air Intake Visit Reasons: EP- SOB, coughing Intake Note: Patient here for chest tightness,SOB that has been present since monday. Patient Tobacco Use Status: Former Tobacco user Allergies amoxicillin [Augmentin] Allergy (Mild, Verified 02/07/24 10:13) Rash clavulanic acid [From Augmentin] Allergy (Mild, Verified 02/07/24 10:13) RASH Do you need a note to return to daycare/school/sports/work: No HPI EP- SOB, coughing HPI Details This note is constructed using voice recognition software. While every effort has been made to ensure accuracy, front office java developer errors may have been included. The patient is a 78 year old female who presents to the clinic today with cough and shortness of breath since Monday. She notes that she has a history of COPD, and did have an exacerbation in the last several months which landed her in the hospital. She reports that she is having body aches, some mild sinus congestion, no fever, no chills, no. She is getting up thick secretions. She notes that when she has been put on prednisone in the past her blood sugar when quite elevated so she would like to avoid that if possible.. [facility] Medical History Chronic respiratory failure Asthma-COPD overlap syndrome Incontinence in female History of adenomatous polyp of colon Pneumonitis Bronchopneumonia Hypogammaglobulinemia Chronic rhinitis Dizziness Headache Hyperlipidemia HTN (hypertension) Diabetes COPD (chronic obstructive pulmonary disease) Surgical History S/P right coronary artery (RCA) stent placement H/O colonoscopy History of foot surgery History of toe surgery History of bunionectomy Family History Mother No problems noted. Father No problems noted. 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) Alcohol intake: never Patient Tobacco Use Status: Former Tobacco user Tobacco use type: Cigarette Advance Directives Date on File: 10/03/23 service: No Current occupational status: retired Sexual orientation: Straight/Heterosexual Gender identity: Female Review of Systems Const All systems reviewed & are unremarkable except as noted in HPI and below Physical Exam Vital Signs: Last Vital Signs Temp 99.2 F 02/07/24 10:12 Pulse 105 H 02/07/24 10:12 BP 160/90 H 02/07/24 10:12 Pulse Ox 98 02/07/24 10:12 Oxygen Delivery Method Room Air 02/07/24 10:12 Const General: cooperative, healthy appearing, comfortable and no acute distress Orientation/consciousness: patient oriented x3 Limitations: no limitations HEENT Head: Yes normal to inspection Ears: hearing grossly normal bilaterally, external ears normal and TM's normal bilaterally General nose exam: Normal external nose present, Normal nares present and No cirilo al discharge present Face and sinus: Yes normal facial exam and Yes sinuses nontender Mouth: Normal oral and palatal mucosa present and moist mucous membranes Throat: Yes tonsils normal, Yes uvula midline and Yes posterior oropharynx abnormal (Erythema) Eyes General: appearance normal, both eyes and all related structures Neck Neck: Yes normal visual inspection Resp Effort & Inspection: normal respiratory effort, able to speak in complete sentences, Actively coughing, no respiratory distress, not tachypneic, no tripod positioning and no use of accessory muscles Auscultation: clear to auscultation bilaterally Cardio Jugular venous distension: no JVD Rate: regular rate Rhythm: regular rhythm Heart sounds: S1 normal heart sound present, S2 normal heart sound present, no click, no gallops, no murmurs and no rubs Skin General skin exam: no rashes or lesions noted, elasticity normal and turgor normal Neuro General: patient oriented x3 Extrem General: Yes normal to inspection and Yes no clubbing, cyanosis or edema Assessment & Plan Assessment & Plan (1) COPD (chronic obstructive pulmonary disease): Code(s): J44.9 - Chronic obstructive pulmonary disease, unspecified Qualifiers: COPD type: chronic bronchitis Chronic bronchitis type: simple Qualified Code(s): J41.0 - Simple chronic bronchitis Plan: Chronic in nature with current exacerbation. Advised ongoing use of at-home treatment for COPD management. (2) COPD exacerbation: Code(s): J44.1 - Chronic obstructive pulmonary disease with (acute) exacerbation Plan: We will avoid steroid given current symptomatology, however we will initiate antimicrobial therapy with azithromycin. Advised patient if at rest, which may lead to evaluation at the emergency room. Plan See above for full details and plan. Orders: Orders SARS-CoV2/FLU/RSV Today J06.9 - Acute upper respiratory infection, unspecified Medications: New azithromycin For 250 mg dose pack: take 500 mg today (day 1), then 250 mg for 4 days (days 2-5) PO 6 tabs 0RF Coding Level of Care Code Est Pt Level 4 (10485) Diagnoses Simple chronic bronchitis J41.0 COPD type: chronic bronchitis Chronic bronchitis type: simple COPD exacerbation J44.1
[2024-02-07 10:12] VITALS: BP 160/90; PULSE 105; TEMP 37.3; O2SAT 98
== END 2024-02-07 10:58 | disposition home or self-care (01) ==
PROVIDERS: PCP Internal Medicine; Visit Provider Registered Nurse
DX: J44.1 Chronic obstructive pulmonary disease with (acute) exacerbation (principal)
CPT/HCPCS: 99214

== ENCOUNTER 2024-02-07 10:38 | Outpatient (REF) | payer OTHER, SELFPAY ==
[2024-02-07 14:10] LABS: Influenza A PCR NEGATIVE (Negative); Influenza B PCR NEGATIVE (Negative); Resp Syncy Virus RNA Qual PCR NEGATIVE (Negative); SARS COV2 PCR INHOUSE NEGATIVE (Negative)
== END 2024-02-07 10:39 | disposition home or self-care (01) ==
LOC: HO.LNP 10:38
PROVIDERS: Visit Provider Registered Nurse
DX: J06.9 Acute upper respiratory infection, unspecified (principal)
CPT/HCPCS: 0241U

== ENCOUNTER 2024-02-22 12:30 | Outpatient (AMB) | payer OTHER, SELFPAY ==
--- NOTE | 2024-02-22 12:34 | MHC.OFFWIV ---
Intake Vital Signs 02/22/24 12:35 Height 5 ft 4 in Weight 182 lb BMI 31.2 BP 128/68 Blood Pressure Location Rt brachial Position Sitting Pulse 108 H Pulse Source Pulse Oximeter Temp 98.1 F Pulse Oximetry (%) 97 Oxygen Delivery Method Room Air Intake Visit Reasons: EP ?UTI Intake Note: pt c/o urinary frequency and discomfort, strong smell. Stomach ache, blurry vision, headache. Started 3 days ago Patient Tobacco Use Status: Former Tobacco user Allergies amoxicillin [Augmentin] Allergy (Mild, Verified 02/22/24 12:47) Rash clavulanic acid [From Augmentin] Allergy (Mild, Verified 02/22/24 12:47) RASH Medication List - Last Reconciled 02/22/24 by Nellie Renee NP albuterol sulfate 2.5 mg inhalation Q4H PRN albuterol sulfate 90 mcg/actuation 2 puffs PO Q4H PRN aspirin 81 mg PO DAILY azelastine 2 sprays intranasal BID 30 days cetirizine 10 mg PO DAILY cholecalciferol (vitamin D3) 50 mcg PO DAILY 30 days dexlansoprazole 60 mg PO DAILY fluticasone propionate 50 mcg/actuation 2 sprays intranasal DAILY 30 days htxfokhoior-qkcoqbfor-hmvtxfuh 200-62.5-25 mcg (Trelegy Ellipta) 1 inh inhalation DAILY 30 days guaifenesin ER (Mucinex) 600 mg PO BID isosorbide mononitrate ER 30 mg PO DAILY lidocaine 5% (Lidoderm) 1 patch topical DAILY PRN MDD remove after 12 hours melatonin 10 mg PO BEDTIME PRN metformin ER 500 mg PO DAILY metoprolol tartrate 75 mg PO DAILY nebulizers As directed nitroglycerin 0.4 mg sublingual ONCE PRN oseltamivir 30 mg PO Q12H Oxygen Home Use As directed Do you need a note to return to daycare/school/sports/work: No HPI EP ?UTI HPI Details This note is constructed using voice recognition software. While every effort has been made to ensure accuracy, river and harbor soundings group leader errors may have been included. The patient is a 78 year old female who presents to the clinic today with dysuria and blurred vision. She notes that she is getting some a nausea since symptoms have started, but no pain. She also reports that she has had a headache starting this morning, which he has had these in the past this has resolved with using Tylenol. She denies fever, chills, cough, shortness of breath, dizziness, lightheadedness, trauma to her head. 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 [facility] Medical History Chronic respiratory failure Asthma-COPD overlap syndrome Incontinence in female History of adenomatous polyp of colon Pneumonitis Bronchopneumonia Hypogammaglobulinemia Chronic rhinitis Dizziness Headache Hyperlipidemia HTN (hypertension) Diabetes COPD (chronic obstructive pulmonary disease) Surgical History S/P right coronary artery (RCA) stent placement H/O colonoscopy History of foot surgery History of toe surgery History of bunionectomy Family History Mother No problems noted. Father No problems noted. 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) Alcohol intake: never Patient Tobacco Use Status: Former Tobacco user Tobacco use type: Cigarette Advance Directives Date on File: 10/03/23 service: No Current occupational status: retired Sexual orientation: Straight/Heterosexual Gender identity: Female Review of Systems Const All systems reviewed & are unremarkable except as noted in HPI and below Physical Exam Vital Signs: Last Vital Signs Temp 98.1 F 02/22/24 12:35 Pulse 108 H 02/22/24 12:35 BP 128/68 02/22/24 12:35 Pulse Ox 97 02/22/24 12:35 Oxygen Delivery Method Room Air 02/22/24 12:35 BMI result Body Mass Index 31.2 Const General: cooperative, healthy appearing, comfortable, no acute distress and alert Orientation/consciousness: patient oriented x3 Limitations: no limitations HEENT Head: Yes normal to inspection and Yes normocephalic Ears: hearing grossly normal bilaterally General nose exam: Normal external nose present Face and sinus: Yes normal facial exam and Yes sinuses nontender Mouth: Normal oral and palatal mucosa present and tongue normal Teeth and gingiva: dentition normal Throat: Yes posterior oropharynx normal Eyes General: appearance normal, both eyes and all related structures Neck Neck: Yes normal visual inspection, Yes full ROM and Yes no lymphadenopathy Resp Effort & Inspection: normal respiratory effort and able to speak in complete sentences Auscultation: clear to auscultation bilaterally Cardio Jugular venous distension: no JVD Palpation: normal PMI Rate: regular rate Heart sounds: S1 normal heart sound present, S2 normal heart sound present, no click, no gallops, no murmurs and no rubs GI Inspection: Yes normal to inspection Palpation (GI): Soft to palpation and nontender Percussion: Yes normal to percussion Auscultation: normal bowel sounds General: Yes no CVA tenderness Back/Spine/Pelvis Back: no CVA tenderness Skin General skin exam: no rashes or lesions noted, elasticity normal and turgor normal Neuro General: patient oriented x3 Psych Appearance: grossly normal Mental Status: mental status grossly normal Speech and movement: Normal speech and movement present Affect: normal affect Results AMB Urinalysis, Automated UA Leukoctes 500 Haritha/uL Last Edit by Thad Escobedo CMA on 02/22/24 12:50 UA Nitrite Negative Last Edit by Thad Escobedo CMA on 02/22/24 12:50 UA Urobilinogen 0.2 mg/dL Last Edit by Thad Escobedo CMA on 02/22/24 12:50 UA Protein 0 mg/dL Last Edit by Thad Escobedo CMA on 02/22/24 12:50 UA pH 6.5 Last Edit by Thad Escobedo CMA on 02/22/24 12:50 UA Blood 0 Jefe/uL Last Edit by Thad Escobedo CMA on 02/22/24 12:50 UA Specific [place] 1.010 Last Edit by Thad Escobedo CMA on 02/22/24 12:50 UA Ketone Negative Last Edit by Thad Escobedo CMA on 02/22/24 12:50 UA Bilirubin 0 mg/dL Last Edit by Thad Escobedo CMA on 02/22/24 12:50 UA Glucose 0 mg/dL Last Edit by Thad Escobedo CMA on 02/22/24 12:50 Assessment & Plan Assessment & Plan (1) Urinary tract infection: Code(s): N39.0 - Urinary tract infection, site not specified Qualifiers: Urinary tract infection type: acute cystitis Hematuria presence: without hematuria Qualified Code(s): N30.00 - Acute cystitis without hematuria Plan: Antibiotics sent to requested pharmacy. Advised patient to increase hydration. Advised patient to follow up with worsening symptoms or failure to resolve. Her headache appears to be benign in nature, no additional treatment recommendations at this time. Plan See above for full details and plan. Advised patient to follow GI specialist as she is planning for her overdue scopes. Orders: Orders AMB Urinalysis Automated Today Kisha Doherty PA-C Z13.9 - Encounter for screening, unspecified Medications: New ciprofloxacin HCl 250 mg PO BID 3 days 6 tabs 0RF Nellie Renee NP Coding Level of Care Code Est Pt Level 3 (06412) Diagnoses Acute cystitis without hematuria N30.00 Urinary tract infection type: acute cystitis Hematuria presence: without hematuria
[2024-02-22 12:35] VITALS: BP 128/68; PULSE 108; TEMP 36.7; O2SAT 97; BMI 31.2
== END 2024-02-22 13:13 | disposition home or self-care (01) ==
PROVIDERS: PCP Internal Medicine; Visit Provider Registered Nurse
DX: Z13.9 Encounter for screening, unspecified (principal); N30.00 Acute cystitis without hematuria
CPT/HCPCS: 81003; 99213

== ENCOUNTER 2024-02-26 13:41 | Outpatient (REF) | payer OTHER, SELFPAY ==
[2024-02-26 15:28] LABS: Appearance Urine Cloudy; Color Urine Yellow; Glucose Urine UA Negative (Negative); Leukocyte Esterase Urine Large (3+) (Negative); Nitrite Urine Negative (Negative); UMIC TRIGGER UA YES; Urine Blood Trace (Negative); Urine Ketones Negative (Negative); Urine Protein Trace mg/dL (Neg-Trace)
[2024-02-26 15:32] LABS: Bacteria Urine Trace (None Seen); Hyaline Casts Urine 0-2 /LPF (0-2); RBC Urine 0-2 /HPF (0-2); WBC Urine >50 /HPF (0-5)
== END 2024-02-26 13:42 | disposition home or self-care (01) ==
LOC: HO.LAB 13:41
PROVIDERS: PCP Internal Medicine; Visit Provider Nurse Practitioner Family
DX: R35.0 Frequency of micturition (principal); R39.89 Other symptoms and signs involving the genitourinary system; N39.46 Mixed incontinence; R32 Unspecified urinary incontinence; N30.00 Acute cystitis without hematuria
CPT/HCPCS: 81001; 87086

== ENCOUNTER 2024-03-04 10:56 | Outpatient (RCR) | payer OTHER, SELFPAY | END 2024-05-31 07:19 | disposition home or self-care (01) | LOC: HO.PR 10:56 | PROVIDERS: PCP Internal Medicine; Visit Provider Hospitalist | DX: J45.40 Moderate persistent asthma, uncomplicated (principal) | CPT/HCPCS: 94618; 99212 ==

== ENCOUNTER 2024-03-08 14:01 | Outpatient (AMB) | payer OTHER, SELFPAY ==
[2024-03-08 14:03] VITALS: BP 124/80; PULSE 90; O2SAT 96; BMI 32.3
--- NOTE | 2024-03-08 14:03 | MHC.OFFWIV ---
Intake Vital Signs 03/08/24 14:03 Height 5 ft 4 in Weight 188 lb BMI 32.3 BP 124/80 Blood Pressure Location Rt brachial Position Sitting Pulse 90 Pulse Source Pulse Oximeter Pulse Oximetry (%) 96 Intake Visit Reasons: EP Shoulder pain Intake Note: pt is here for shoulder pain Patient Tobacco Use Status: Former Tobacco user Allergies amoxicillin [Augmentin] Allergy (Mild, Verified 03/08/24 14:03) Rash clavulanic acid [From Augmentin] Allergy (Mild, Verified 03/08/24 14:03) RASH Do you need a note to return to daycare/school/sports/work: No HPI HPI Comments History of Present Illness Details 78 y/o female patient who presents to the walk in clinic with c/o neck and shoulder pain. This is a chronic on going issue for months now. She sees a learning solutions specialist who gives her Neck/back injections. Her last Injection was few days ago. Reports that Injections do not work and continues to have pain. Two days ago her Doctor prescribed Hydrocodone and has been taking it as prescribed but no relief. Reports all the pain medications given to her do not work, continues to suffer with pain and unable to sleep due to pain. [facility] Medical History (Reviewed 01/30/24 @ 14:56 by [facility]) Chronic respiratory failure Asthma-COPD overlap syndrome Incontinence in female History of adenomatous polyp of colon Pneumonitis Bronchopneumonia Hypogammaglobulinemia Chronic rhinitis Dizziness Headache Hyperlipidemia HTN (hypertension) Diabetes COPD (chronic obstructive pulmonary disease) Surgical History (Reviewed 01/30/24 @ 14:56 by [facility]) S/P right coronary artery (RCA) stent placement H/O colonoscopy History of foot surgery History of toe surgery History of bunionectomy Family History (Reviewed 01/30/24 @ 14:56 by [facility]) Mother No problems noted. Father No problems noted. 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) Alcohol intake: never Patient Tobacco Use Status: Former Tobacco user Tobacco use type: Cigarette Advance Directives Date on File: 10/03/23 service: No Current occupational status: retired Sexual orientation: Straight/Heterosexual Gender identity: Female Review of Systems Const All systems reviewed & are unremarkable except as noted in HPI and below Physical Exam Vital Signs: Last Vital Signs Pulse 90 03/08/24 14:03 BP 124/80 03/08/24 14:03 Pulse Ox 96 03/08/24 14:03 BMI result Body Mass Index 32.3 Const General: cooperative and no acute distress; No comfortable Nutritional Appearance: obese Orientation/consciousness: patient oriented x3 Neck Other: Limited ROM due to pain. Neck: Yes no lymphadenopathy Back/Spine/Pelvis Cervical Spine: cervical muscular tenderness, pain with cervical ROM, cervical spasm and Cervical spine tenderness Neuro General: patient oriented x3, gait normal and moves all extremities Psych Speech and movement: Normal speech and movement present Assessment & Plan Assessment & Plan (1) Cervical spondylosis: Code(s): M47.812 - Spondylosis without myelopathy or radiculopathy, cervical region Plan: Due to her severe pain and not responding well on Oral Pain relief medications, advised to go to ED for IV pain medications and further evaluation. Continue f/u with learning solutions specialist as scheduled. F/U with PCP PRN or as scheduled. Coding Level of Care Code Est Pt Level 3 (09109) Diagnoses Cervical spondylosis M47.812 Time Spent (min) 15
== END 2024-03-08 15:22 | disposition home or self-care (01) ==
PROVIDERS: PCP Internal Medicine; Visit Provider Nurse Practitioner Family
DX: M47.812 Spondylosis without myelopathy or radiculopathy, cervical region (principal)

== ENCOUNTER → 2024-03-08 14:01 | Outpatient (BNVA) | payer OTHER, SELFPAY | PROVIDERS: PCP Internal Medicine | DX: M47.812 Spondylosis without myelopathy or radiculopathy, cervical region (principal) | CPT/HCPCS: 99212 ==

== ENCOUNTER 2024-03-12 13:53 | Outpatient (AMB) | payer OTHER, SELFPAY ==
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
[2024-03-12 14:10] VITALS: BP 128/70; PULSE 90; O2SAT 94; BMI 30.9
== END 2024-03-12 14:28 | disposition home or self-care (01) ==
PROVIDERS: PCP Internal Medicine; Visit Provider Hospitalist
DX: J41.0 Simple chronic bronchitis (principal); K21.9 Gastro-esophageal reflux disease without esophagitis; D80.1 Nonfamilial hypogammaglobulinemia
CPT/HCPCS: 99214

== ENCOUNTER → 2024-03-12 13:53 | Outpatient (BNVA) | payer OTHER, SELFPAY | PROVIDERS: PCP Internal Medicine; Visit Provider Hospitalist | DX: J41.0 Simple chronic bronchitis (principal); J31.0 Chronic rhinitis; J44.89 Other specified chronic obstructive pulmonary disease; K21.9 Gastro-esophageal reflux disease without esophagitis; D80.1 Nonfamilial hypogammaglobulinemia | CPT/HCPCS: 99212 ==

== ENCOUNTER 2024-04-11 11:18 | Emergency (ER) | payer OTHER, SELFPAY ==
[2024-04-11 11:26] VITALS: BP 151/72; PULSE 107; RESP 20; TEMP 37.1; O2SAT 93; BMI 31.8
--- NOTE | 2024-04-11 11:29 | ED.GENADULT ---
HPI - General Adult General Chief complaint: Neck Pain/Injury Stated complaint: Neck/arm pain Time Seen by Provider: 04/11/24 14:03 Source: patient Mode of arrival: ambulatory Limitations: no limitations History of Present Illness ED Provider: Roberto HPI narrative: Patient is a 78-year-old female with history of asthma/COPD overlap syndrome, HTN, HLD, DM, severe DDD and osteoarthritis of cervical spine presenting with acute exacerbation of chronic neck pain. Denies recent falls or other trauma. Was seeing a manager information in [place] for injections, but insurance has not covered another visit. Most recent injection was in December and pain has progressively worsened since that time. States the pain is radiating down right arm. Denies numbness or tingling to upper extremities. Denies headaches, blurred vision, double vision or other visual changes, complaint: neck pain Onset (ago): month(s) Location: neck Radiation: extremity Severity: severe Quality: aching Pain Consistency: constant Associated symptoms: denies other symptoms Related Data Home Medications ?Medication ?Instructions ?Recorded ?Confirmed cetirizine 10 mg tablet 10 mg PO DAILY 03/21/20 02/22/24 dexlansoprazole 60 mg 60 mg PO DAILY 03/21/20 02/22/24 capsule,biphase delayed release nitroglycerin 0.4 mg sublingual 0.4 mg sublingual ONCE PRN Chest 03/21/20 02/22/24 tablet Pain albuterol sulfate 2.5 mg/3 mL 2.5 mg inhalation Q4H PRN wheezing 04/28/20 02/22/24 (0.083 %) solution for nebulization melatonin 10 mg tablet 10 mg PO BEDTIME PRN Sleep 08/19/21 02/22/24 aspirin 81 mg tablet,delayed 81 mg PO DAILY 09/02/21 02/22/24 release isosorbide mononitrate 30 mg 30 mg PO DAILY 09/02/21 02/22/24 tablet,extended release 24 hr Oxygen Home Use 09/16/22 02/22/24 nebulizers 09/16/22 02/22/24 metoprolol tartrate 50 mg tablet 75 mg PO DAILY 09/04/23 02/22/24 metformin 500 mg tablet,extended 500 mg PO DAILY 10/30/23 02/22/24 release 24 hr hydrocodone 5 mg-acetaminophen 325 2 tab PO BID 03/08/24 mg tablet Previous Rx's ?Medication ?Instructions ?Recorded cholecalciferol (vitamin D3) 50 50 mcg PO DAILY 30 days #30 caps 04/08/20 mcg (2,000 unit) capsule fluticasone propionate 50 2 spray intranasal DAILY 30 days 08/11/22 mcg/actuation nasal #15.8 mL spray,suspension fluticasone fur. 200 mcg-umeclid 1 inh inhalation DAILY 30 days #60 07/19/23 62.5 mcg-vilant 25 mcg ea inhalat.powder (Trelegy Ellipta) lidocaine 5 % topical patch 1 patch topical DAILY PRN pain #30 08/03/23 (Lidoderm) ea azelastine 137 mcg (0.1 %) nasal 2 spray intranasal BID 30 days #30 09/19/23 spray mL oseltamivir 30 mg capsule 30 mg PO Q12H #5 caps 10/05/23 albuterol sulfate 90 mcg/actuation 2 puff PO Q4H PRN for wheezing #1 12/29/23 aerosol inhaler ea cyclobenzaprine 5 mg tablet 5 mg PO TID PRN muscle spasm #10 04/11/24 tabs lidocaine 5 % topical patch 1 patch topical DAILY #15 ea 04/11/24 naproxen 500 mg tablet 500 mg PO BID #14 tabs 04/11/24 Allergies Allergy/AdvReac Type Severity Reaction Status Date / Time amoxicillin [Augmentin] Allergy Mild Rash Verified 04/11/24 11:30 clavulanic acid Allergy Mild RASH Verified 04/11/24 11:30 [From Augmentin] [facility] Past Medical History Medical History Chronic respiratory failure Asthma-COPD overlap syndrome Incontinence in female History of adenomatous polyp of colon Pneumonitis Bronchopneumonia Hypogammaglobulinemia Chronic rhinitis Dizziness Headache Hyperlipidemia HTN (hypertension) Diabetes COPD (chronic obstructive pulmonary disease) Surgical History S/P right coronary artery (RCA) stent placement H/O colonoscopy History of foot surgery History of toe surgery History of bunionectomy Family History Family History Mother No problems noted. Father No problems noted. 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) Alcohol intake: never Patient Tobacco Use Status: Former Tobacco user Tobacco use type: Cigarette Advance Directives: Yes Advance Directives on File: Yes Advance Directives Date on File: 10/03/23 Do you have a plan to hurt others: No Plan service: No Current occupational status: retired Sexual orientation: Straight/Heterosexual Gender identity: Female Physical Exam ED Vital Signs: Vital Signs - 24 hr 04/11/24 11:26 04/11/24 14:12 Temperature 98.7 F 98.1 F Pulse Rate 107 H 100 Respiratory Rate 20 18 Blood Pressure 151/72 H 165/67 H Pulse Oximetry 93 96 Oxygen Delivery Method Room Air Room Air BMI result Body Mass Index 31.8 Course Course Course Narrative: RME, this is a rapid medical exam performed by Elio Stockton please refer to primary provider for complete H&P- 78 yaer old [place] with past medical history significant for diabetes kind chronic neck pain, COPD, GERD, IBS presents for evaluation of neck pain. Patient reports worsening neck pain for the last month. She had a CT scan of the cervical spine in July of this year showing degenerative changes from C3-C7 on a described as severe and worse between C6-C7. The patient reports worsening right arm weakness over the last 3 weeks. Medications Administered Discontinued Medications Generic Name Dose Route Start Last Admin Trade Name Freq PRN Reason Stop Dose Admin Diazepam 2 mg 04/11/24 14:43 04/11/24 14:56 Diazepam 2 Mg Tablet PO 04/11/24 14:44 2 mg ONCE ONE Administration Ketorolac Tromethamine 30 mg 04/11/24 14:43 04/11/24 14:56 Ketorolac Tromethamine 30 Mg/Ml Vial IM 04/11/24 14:44 30 mg ONCE ONE Administration Lidocaine 1 patch 04/11/24 14:43 04/11/24 14:56 Lidocaine 4 % Patch Adh..Patch TRANSDERMA 04/11/24 14:44 1 patch ONCE ONE Administration Protocol Discharge Plan Discharge Clinical Impression: Chronic neck pain Patient Disposition: Home, Self-Care Instructions: Chronic Neck Pain (DC) Additional Instructions: You were evaluated in the emergency department with complaint of chronic neck pain. Your pain improved with medications given in the emergency department. You are being prescribed a muscle relaxer which you can use up to every 8 hours as needed. You are being prescribed naproxen to decrease inflammation, take this as prescribed. You are being prescribed topical lidocaine patches which you can wear for up to 12 hours in a 24 hour period. Do not apply heat directly over the patches. Given your ongoing symptoms, we recommend that you follow-up with pain management. Call their office to schedule an appointment, they will not call you. You should follow up with your primary care provider as well. Return to the emergency department if you develop worsening neck pain or stiffness, new weakness, numbness, or tingling to your arm, severe headaches, or any other concerning symptoms. Prescriptions: New cyclobenzaprine 5 mg tablet 5 mg PO TID PRN (Reason: muscle spasm) Qty: 10 0RF naproxen 500 mg tablet 500 mg PO BID Qty: 14 0RF lidocaine 5 % adhesive patch,medicated 1 patch topical DAILY Qty: 15 0RF Rx Instructions: leave on most painful area for up to 12 hrs No Action cholecalciferol (vitamin D3) 50 mcg (2,000 unit) capsule 50 mcg PO DAILY 30 Days Qty: 30 3RF azelastine 137 mcg (0.1 %) aerosol,spray 2 spray intranasal BID 30 Days Qty: 30 6RF Rx Instructions: administer into each nostril albuterol sulfate 90 mcg/actuation HFA aerosol inhaler 2 puff PO Q4H PRN (Reason: for wheezing) Qty: 1 3RF lidocaine [Lidoderm] 5 % adhesive patch,medicated 1 patch topical DAILY MDD remove after 12 hours PRN (Reason: pain) Qty: 30 0RF Rx Instructions: leave on most painful area for up to 12 hrs oseltamivir 30 mg Capsule 30 mg PO Q12H Qty: 5 0RF albuterol sulfate 2.5 mg /3 mL (0.083 %) solution for nebulization 2.5 mg inhalation Q4H PRN (Reason: wheezing) nitroglycerin 0.4 mg tablet, sublingual 0.4 mg sublingual ONCE PRN (Reason: Chest Pain) dexlansoprazole 60 mg capsule,biphase delayed releas 60 mg PO DAILY cetirizine 10 mg tablet 10 mg PO DAILY aspirin 81 mg tablet,delayed release (DR/EC) 81 mg PO DAILY isosorbide mononitrate 30 mg tablet extended release 24 hr 30 mg PO DAILY fluticasone propionate 50 mcg/actuation spray,suspension 2 spray intranasal DAILY 30 Days Qty: 15.8 11RF melatonin 10 mg tablet 10 mg PO BEDTIME PRN (Reason: Sleep) (DME) Oxygen Home Use Kit See Rx Instructions .Route Rx Instructions: As directed (DME) nebulizers Misc See Rx Instructions .Route Rx Instructions: As directed metoprolol tartrate 50 mg tablet 75 mg PO DAILY metformin 500 mg tablet extended release 24 hr 500 mg PO DAILY Trelegy Ellipta 200-62.5-25 mcg blister with device 1 inh inhalation DAILY 30 Days Qty: 60 12RF hydrocodone-acetaminophen 5-325 mg tablet 2 tab PO BID Referrals: Hu Landa MD [Physician] - Print Language: Moroccan
[2024-04-11 14:12] VITALS: BP 165/67; PULSE 100; RESP 18; TEMP 36.7; O2SAT 96
[2024-04-11] MEDS: Ketorolac Tromethamine 30 MG/ML VIAL IM (14:56)
[2024-04-11] MEDS: diazePAM 2 MG TABLET PO (14:56)
[2024-04-11] MEDS: Lidocaine 4 % Patch ADH..PATCH 1 PATCH TRANSDERMA (14:56)
[2024-04-11 16:33] VITALS: BP 165/67; PULSE 100; RESP 18; TEMP 36.7; O2SAT 96
== END 2024-04-11 16:34 | disposition home or self-care (01) ==
PROVIDERS: Emergency Provider Emergency Medicine; PCP Internal Medicine
DX: M54.2 Cervicalgia (principal); I10 Essential (primary) hypertension; E11.9 Type 2 diabetes mellitus without complications; Z79.899 Other long term (current) drug therapy; Z79.84 Long term (current) use of oral hypoglycemic drugs
CPT/HCPCS: 96372; 99283; 99284; J1885

== ENCOUNTER 2024-04-18 13:09 | Outpatient (AMB) | payer OTHER, SELFPAY ==
[2024-04-18 13:35] VITALS: BP 128/59; PULSE 93; O2SAT 92; BMI 30.9
--- NOTE | 2024-04-18 13:35 | MHC.OFFVIS ---
Vital Signs 04/18/24 13:35 Height 5 ft 4 in Weight 180 lb BMI 30.9 BP 128/59 L Blood Pressure Location Lt brachial Position Sitting Pulse 93 Pulse Source Pulse Oximeter Pulse Oximetry (%) 92 Oxygen Delivery Method Room Air Intake Visit Reasons: Neck and Arm Pain/ED Referral Allergies amoxicillin [Augmentin] Allergy (Mild, Verified 04/18/24 13:36) Rash clavulanic acid [From Augmentin] Allergy (Mild, Verified 04/18/24 13:36) RASH Medication List - Last Reconciled 04/18/24 by Lady Schumacher albuterol sulfate 2.5 mg inhalation Q4H PRN albuterol sulfate 90 mcg/actuation 2 puffs PO Q4H PRN aspirin 81 mg PO DAILY azelastine 2 sprays intranasal BID 30 days cetirizine 10 mg PO DAILY cholecalciferol (vitamin D3) 50 mcg PO DAILY 30 days cyclobenzaprine 5 mg PO TID PRN dexlansoprazole 60 mg PO DAILY fluticasone propionate 50 mcg/actuation 2 sprays intranasal DAILY 30 days urdahxcvrav-ywgzdittq-snbvywcb 200-62.5-25 mcg (Trelegy Ellipta) 1 inh inhalation DAILY 30 days hydrocodone-acetaminophen 5-325 mg 2 tabs PO BID isosorbide mononitrate ER 30 mg PO DAILY lidocaine 5% (Lidoderm) 1 patch topical DAILY PRN MDD remove after 12 hours lidocaine 5% 1 patch topical DAILY melatonin 10 mg PO BEDTIME PRN metformin ER 500 mg PO DAILY metoprolol tartrate 75 mg PO DAILY naproxen 500 mg PO BID nebulizers As directed nitroglycerin 0.4 mg sublingual ONCE PRN oseltamivir 30 mg PO Q12H Oxygen Home Use As directed HPI Comments Details: Shea is a very pleasant 78-year-old female who presents to the office today for evaluation and management of her chronic neck pain She has been suffering with this pain for many years though it has recently worsened Evaluated in the ER twice this year, the 1st visit was in July, CT scan was performed, results as per below. Endorses midline cervical neck pain with radiation across the trapezius bilaterally. Tenderness to palpation Pain with cervical range motion, she states it is very difficult to move her head in any directions. Endorses intermittent radiation of the pain down the right arm. Currently under care of interventional pain management an outside provider. She had cortisone injection December of this year with no improvement, she is scheduled for another injection in 1 month. Two weeks ago she was in the ER, they prescribed her Naprosyn and cyclobenzaprine. She is also taking Tylenol 3 times daily. She finds minimal relief with the medications. Pain today is rated as a 6/10, constant throughout the day and into the evening. In terms of muscle damage condition is described as sharp, shooting, stabbing, aching, cramping Pain is negatively impacting patient's enjoyment of life, general activity, mood, normal work, recreational activities, sleep and walking Denies current use of anticoagulants Denies implantable devices, pacemaker defibrillator Denies current use of nicotine, tobacco, alcohol or illicit substances [facility] Medical History Chronic respiratory failure Asthma-COPD overlap syndrome Incontinence in female History of adenomatous polyp of colon Pneumonitis Bronchopneumonia Hypogammaglobulinemia Chronic rhinitis Dizziness Headache Hyperlipidemia HTN (hypertension) Diabetes COPD (chronic obstructive pulmonary disease) Surgical History S/P right coronary artery (RCA) stent placement H/O colonoscopy History of foot surgery History of toe surgery History of bunionectomy Family History Mother No problems noted. Father No problems noted. 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 services: No (34 hrs [employer]) Alcohol intake: never Patient Tobacco Use Status: Former Tobacco user Tobacco use type: Cigarette Advance Directives Date on File: 10/03/23 service: No Current occupational status: retired Sexual orientation: Straight/Heterosexual Gender identity: Female Review of Systems Const All systems reviewed & are unremarkable except as noted in HPI and below Physical Exam Vital Signs: Last Vital Signs Pulse 93 04/18/24 13:35 BP 128/59 L 04/18/24 13:35 Pulse Ox 92 04/18/24 13:35 Oxygen Delivery Method Room Air 04/18/24 13:35 BMI result Body Mass Index 30.9 General: awake, alert, oriented. Answers questions appropriately. Fully engaged in examination. Skin: warm, dry, intact HEENT: Normocephalic. Hearing intact. Cardiac: External chest normal in appearance. Respiratory: No cough, audible wheezing or stridor. Abdomen: without gross distension. MS: No obvious swelling or deformities. Decreased cervical range of motion Tenderness to palpation bilateral trapezius and midline cervical vertebrae/paraspinal muscles Full range motion bilateral upper extremities hand manager library equal, 5/5 strength Neurological: Oriented to person, place, time and situation. Thought process intact. No gait abnormalities appreciated. Psychiatric: Appropriate mood and affect. Good judgment and insight. Results Reviewed Results Reviewed: 08/03/2023 CT/CT cervical spine wo IV con FINDINGS: The craniocervical junction is normal. The occipital condyles, dens and atlantodental articulation are intact. There is calcium deposition (likely calcium pyrophosphate dihydrate crystal deposition) along the transverse ligament posterior to the dens. Degenerative subarticular cystic change and osteophyte formation at anterior atlantodental articulation. The degenerative change between lateral masses of C1-C2 is worst on the left compared to right. No dens fracture. Lack of lordotic curvature and mild dextrocurvature of the cervical spine. Multilevel facet osteoarthritis. Left-sided facet ankylosis at C2-C3. There appears to be partial facet ankylosis on the right at C2-C3 and C3-C4. Degenerative loss of disc height and osteophyte formation throughout the cervical spine, and chronic severe disc space narrowing and intervertebral fusion at C3-C4. The degenerative disc disease is severe at C4-C5, C5-C6 and C6-C7, and moderate at C7-T1 and T1-T2. There is lack of lordotic curvature of the degenerated spine. Negligible anterolisthesis at C7-T1 and 0.2 cm of degenerative anterolisthesis at T1-T2. No fractures in the anterior or posterior elements. No prevertebral edema or soft tissue hematoma. The soft tissues at the posterior neck are unremarkable. No fluid collection or mass. At C3-C4, posterior disc-osteophyte complex and/or chronic ossification of posterior longitudinal ligament causes mild central canal stenosis, narrows the canal to 0.9 cm AP diameter. At C4-C5, C5-C6 and C6-C7, posterior disc osteophyte complexes cause mild to moderate central canal stenosis. Multilevel uncovertebral joint hypertrophy with osteophytes causing mild-to moderate bilateral neural foraminal stenosis at C4-C5, mild bilateral foraminal stenosis at C5-C6 and high-grade right-sided foraminal stenosis at C6-C7. Thyroid gland is unremarkable. Mild emphysema at visualized lung apices. IMPRESSION: * No acute imaging abnormalities within the cervical spine. * Severe multilevel degenerative disc disease, facet osteoarthritis and uncovertebral joint hypertrophy of the cervical spine. Multilevel spinal canal stenosis is noted at C3-C4, C4-C5, C5-C6 and C6-C7.. The neural foraminal stenosis of the cervical spine is worst on the right at C6-C7. * No soft tissue mass or hematoma. Assessment & Plan Assessment & Plan (1) Intractable pain: Comment: Cervical spine Code(s): R52 - Pain, unspecified Category: Medical (2) Degenerative disc disease, cervical: Code(s): M50.30 - Other cervical disc degeneration, unspecified cervical region Category: Medical Plan Shea is a very pleasant 78-year-old female who presented to the office today for evaluation and management of her chronic cervical neck pain CT cervical spine reviewed, results as per above Continue with plan for steroid injection May 14, 2024 with outside provider Discussed options for treatment including diagnostic interventional testing, epidural steroid injections, peripheral nerve stimulation with Sprint, RFA and more permanent neuromodulation. Informational pamphlets provided. She was given a pamphlet for sprint PNS, if she does not find any relief with the injections he receives next month she will call the office and we will schedule for bilateral C3 sprint PNS trial with local anesthetic All questions and concerns have been answered and patient agrees with the plan. Follow up after injections and sooner if needed. Medications: New celecoxib Take with food, do not take with any other nonsteroidal anti-inflammatory medications 50 mg PO BID 30 caps 0RF methocarbamol Discontinue use of Cyclobenzaprine No driving while taking this medication. Do no take with alcohol or other [employer] Depressants 500 mg PO TID PRN 60 tabs 0RF muscle spasm Discontinued cyclobenzaprine Discontinued Reason: Doctor's Order 5 mg PO TID PRN 10 tabs 0RF muscle spasm naproxen Discontinued Reason: Doctor's Order 500 mg PO BID 14 tabs 0RF Coding Level of Care Code New Pt Level 4 (25265) Complex EM visit Add On G2211 Diagnoses Intractable pain R52 Degenerative disc disease, cervical M50.30
== END 2024-04-18 14:05 | disposition home or self-care (01) ==
LOC: HO.PMC 13:10
PROVIDERS: PCP Internal Medicine; Visit Provider Registered Nurse Emergency
DX: R52 Pain, unspecified (principal); M50.30 Other cervical disc degeneration, unspecified cervical region
CPT/HCPCS: 99204; G2211

== ENCOUNTER → 2024-04-18 13:09 | Outpatient (BNVA) | payer OTHER, SELFPAY | PROVIDERS: PCP Internal Medicine; Visit Provider Registered Nurse Emergency | DX: M50.30 Other cervical disc degeneration, unspecified cervical region (principal); R52 Pain, unspecified | CPT/HCPCS: 99202 ==

== ENCOUNTER 2024-04-22 09:18 | Outpatient (AMB) | payer OTHER, SELFPAY ==
[2024-04-22 09:44] VITALS: BP 142/72; PULSE 92; TEMP 36.6; O2SAT 96; BMI 30.9
--- NOTE | 2024-04-22 09:44 | AM.OFFWIN_ITS ---
Intake Vital Signs 04/22/24 09:44 Height 5 ft 4 in Weight 180 lb BMI 30.9 BP 142/72 H Blood Pressure Location Lt brachial Position Sitting Pulse 92 Pulse Source Pulse Oximeter Temp 97.9 F Temp Source Oral Pulse Oximetry (%) 96 Intake Visit Reasons: EP UTI? Intake Note: pt is here for possible uti Patient Tobacco Use Status: Former Tobacco user Allergies amoxicillin [Augmentin] Allergy (Mild, Verified 04/22/24 09:44) Rash clavulanic acid [From Augmentin] Allergy (Mild, Verified 04/22/24 09:44) RASH Do you need a note to return to daycare/school/sports/work: No HPI HPI Comments History of Present Illness Details Patient is a 78-year-old female complaining of 3 days of burning with urination and some low back pain. She tells me she usually will soak it in higher depends on an overnight but she has been retaining urine which is unusual for her. She was able to urinate this morning but she tells me her typical pattern of urination is definitely off. She denies any fevers or history of kidney stones or blood in her urine. [facility] Medical History Chronic respiratory failure Asthma-COPD overlap syndrome Incontinence in female History of adenomatous polyp of colon Pneumonitis Bronchopneumonia Hypogammaglobulinemia Chronic rhinitis Dizziness Headache Hyperlipidemia HTN (hypertension) Diabetes COPD (chronic obstructive pulmonary disease) Surgical History S/P right coronary artery (RCA) stent placement H/O colonoscopy History of foot surgery History of toe surgery History of bunionectomy Family History ) Mother No problems noted. Father No problems noted. 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) Alcohol intake: never Patient Tobacco Use Status: Former Tobacco user Tobacco use type: Cigarette Advance Directives Date on File: 10/03/23 service: No Current occupational status: retired Sexual orientation: Straight/Heterosexual Gender identity: Female Review of Systems Const All systems reviewed & are unremarkable except as noted in HPI and below Physical Exam Vital Signs: Last Vital Signs Temp 97.9 F 04/22/24 09:44 Pulse 92 04/22/24 09:44 BP 142/72 H 04/22/24 09:44 Pulse Ox 96 04/22/24 09:44 BMI result Body Mass Index 30.9 Const General: cooperative, healthy appearing, comfortable and no acute distress Orientation/consciousness: patient oriented x3 HEENT Head: Yes normal to inspection Ears: hearing grossly normal bilaterally General nose exam: Normal external nose present Face and sinus: Yes normal facial exam Neck Neck: Yes normal visual inspection, Yes trachea midline and Yes supple Resp Effort & Inspection: normal respiratory effort and able to speak in complete sentences General: Yes no CVA tenderness Back/Spine/Pelvis Back: no CVA tenderness Skin General skin exam: no rashes or lesions noted Neuro General: patient oriented x3 Psych Appearance: grossly normal Speech and movement: Normal speech and movement present Attitude: cooperative Thought process: Normal thought process present Insight: Good insight present (Psych) Judgement: Good judgement present (Psych) Results AMB Urinalysis, Automated UA Leukoctes 500 Haritha/uL Last Edit by Gautam Vaughan CMA on 04/22/24 10:0 4 UA Nitrite Negative Last Edit by Gautam Vaughan CMA on 04/22/24 10:04 UA Urobilinogen 0.2 mg/dL Last Edit by Gautam Vaughan CMA on 04/22/24 10 :04 UA Protein 15 mg/dL Last Edit by Gautam Vaughan CMA on 04/22/24 10:04 UA pH 5.5 Last Edit by Gautam Vaughan CMA on 04/22/24 10:04 UA Blood 200 Jefe/uL Last Edit by Gautam Vaughan CMA on 04/22/24 10:04 UA Specific [place] 1.015 Last Edit by Gautam Vaughan CMA on 04/22/24 10:04 UA Ketone Negative Last Edit by Gautam Vaughan CMA on 04/22/24 10:04 UA Bilirubin 0 mg/dL Last Edit by Gautam Vaughan CMA on 04/22/24 10:04 UA Glucose 0 mg/dL Last Edit by Gautam Vaughan CMA on 04/22/24 10:04 Assessment & Plan Assessment & Plan (1) Urinary tract infection: Code(s): N39.0 - Urinary tract infection, site not specified Qualifiers: Urinary tract infection type: acute cystitis Hematuria presence: without hematuria Qualified Code(s): N30.00 - Acute cystitis without hematuria Plan: Vital signs are stable, patient well-appearing, urinalysis is 3+ positive leukocyte esterase, negative for nitrites, 3+ positive for blood. Patient able to urinate this morning for the test. Did agency legal counsel patient that i she is unable to urinate for an extended period of time, she should go to the emergency department for imaging to rule out a stone blocking her urine. I explained that this could be detrimental to her kidneys, patient understands. We will treat for UTI. Plan See above Orders: Orders AMB Urinalysis Automated Today Z13.9 - Encounter for screening, unspecified Medications: New ciprofloxacin HCl 250 mg PO Q12H 6 tabs 0RF Coding Level of Care Code New Pt Level 3 (18744) Diagnoses Acute cystitis without hematuria N30.00 Urinary tract infection type: acute cystitis Hematuria presence: without hematuria
== END 2024-04-22 10:18 | disposition home or self-care (01) ==
PROVIDERS: PCP Internal Medicine; Visit Provider Physician Assistant
DX: Z13.9 Encounter for screening, unspecified (principal); N30.00 Acute cystitis without hematuria

== ENCOUNTER → 2024-04-22 09:18 | Outpatient (BNVA) | payer OTHER, SELFPAY | PROVIDERS: PCP Internal Medicine; Visit Provider Physician Assistant | DX: N30.00 Acute cystitis without hematuria (principal) | CPT/HCPCS: 81003; 99202 ==

== ENCOUNTER 2024-05-14 15:25 | Outpatient (AMB) | payer OTHER, SELFPAY ==
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
[2024-05-14 15:35] VITALS: BP 144/64; PULSE 79; O2SAT 97; BMI 32.9
== END 2024-05-14 16:03 | disposition home or self-care (01) ==
PROVIDERS: PCP Internal Medicine; Visit Provider Hospitalist
DX: J41.0 Simple chronic bronchitis (principal); J18.9 Pneumonia, unspecified organism; K21.9 Gastro-esophageal reflux disease without esophagitis; D80.1 Nonfamilial hypogammaglobulinemia
CPT/HCPCS: 99214

== ENCOUNTER → 2024-05-14 15:25 | Outpatient (BNVA) | payer OTHER, SELFPAY | PROVIDERS: PCP Internal Medicine; Visit Provider Hospitalist | DX: J41.0 Simple chronic bronchitis (principal); J18.9 Pneumonia, unspecified organism; J31.0 Chronic rhinitis; K21.9 Gastro-esophageal reflux disease without esophagitis; D80.1 Nonfamilial hypogammaglobulinemia | CPT/HCPCS: 99212 ==

== ENCOUNTER 2024-06-17 13:05 | Outpatient (AMB) | payer OTHER, SELFPAY ==
--- NOTE | 2024-06-17 13:12 | A.OFFVIS_ITS ---
Vital Signs 06/17/24 13:15 Height 5 ft 4 in Weight 185 lb 3.013 oz BMI 31.8 BP 131/61 Blood Pressure Location Lt brachial Position Sitting Pulse 89 Intake Visit Reasons: 5 yrs Colonoscopy recall/[facility] pt Intake Note: Shea presents in the office as a [facility] patient to recall having colonoscopy. CC: States she gets some constipation and some pains in the left side of her stomach. Bag Patcher Required: No Allergies amoxicillin [Augmentin] Allergy (Mild, Verified 06/17/24 13:15) Rash clavulanic acid [From Augmentin] Allergy (Mild, Verified 06/17/24 13:15) RASH HPI Comments Details: 78 y.o F with PMH of COPD, CAD, hx of polyps, GERD, who is here for follow up for i) hx of polyps. Had 2 dimunitive TA in 2016 (Dr Henry). Excellent prep. Repeat was recommended in 5-7 years. ii) chronic constipation. Was on trulance for earlier this year which she self dicontinued almost 3-4 months ago as did not think it was helping. Currently reports 2-3 BMs per week. No abd pain, has cramping occasionally that does not always correlate with defecation. [facility] Medical History Chronic respiratory failure Asthma-COPD overlap syndrome Incontinence in female History of adenomatous polyp of colon Pneumonitis Bronchopneumonia Hypogammaglobulinemia Chronic rhinitis Dizziness Headache Hyperlipidemia HTN (hypertension) Diabetes COPD (chronic obstructive pulmonary disease) Surgical History S/P right coronary artery (RCA) stent placement H/O colonoscopy History of foot surgery History of toe surgery History of bunionectomy Family History Mother No problems noted. Father No problems noted. 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) Alcohol intake: never Patient Tobacco Use Status: Former Tobacco user Tobacco use type: Cigarette Advance Directives Date on File: 10/03/23 service: No Current occupational status: retired Sexual orientation: Straight/Heterosexual Gender identity: Female Review of Systems Const All systems reviewed & are unremarkable except as noted in HPI and below Physical Exam Vital Signs: Last Vital Signs Pulse 89 06/17/24 13:15 BP 131/61 06/17/24 13:15 BMI result Body Mass Index 31.8 No apparent distress Nonicteric Abdomen soft, nondistended Alert and oriented x3, uses cane for ambulation Assessment & Plan Assessment & Plan (1) Personal history of colonic polyps: Code(s): Z86.0100 - Personal history of colon polyps, unspecified Category: Medical (2) Chronic constipation: Code(s): K59.09 - Other constipation Category: Medical Plan 1) Reviewed with the pt that given her age >75 and comorbidities, further surveillance for polyps is optional. She elects to defer which is not unreasonable. 2) Chronic constipaiton. Likely CIC. Reviewed increased hydration Fiber intake Miralax daily Can add senna PRN if no BM > 2 days Elevate legs while having a BM Can consider addition of linzess if limited response to above Follow up in 3 months to review Medications: New psyllium husk (Metamucil) mix into at least 8 oz of water or juice before administering 1 tbsp PO DAILY 660 grams 1RF polyethylene glycol 3350 (Miralax) 17 grams PO DAILY 238 grams 1RF Coding Level of Care Code Est Pt Level 4 (88457) Diagnoses Personal history of colonic polyps Z86.0100 Chronic constipation K59.09
[2024-06-17 13:15] VITALS: BP 131/61; PULSE 89; BMI 31.8
== END 2024-06-17 14:35 | disposition home or self-care (01) ==
PROVIDERS: PCP Internal Medicine; Visit Provider Internal Medicine
DX: Z86.0100 Personal history of colon polyps, unspecified (principal); K59.09 Other constipation
CPT/HCPCS: 99214

== ENCOUNTER → 2024-06-17 13:05 | Outpatient (BNVA) | payer OTHER, SELFPAY | PROVIDERS: PCP Internal Medicine; Visit Provider Internal Medicine | DX: K59.09 Other constipation (principal); Z86.0100 Personal history of colon polyps, unspecified | CPT/HCPCS: 99212 ==

== ENCOUNTER 2024-06-18 10:41 | Outpatient (REF) | payer OTHER, SELFPAY ==
[2024-06-18 12:52] LABS: Influenza A PCR NEGATIVE (Negative); Influenza B PCR NEGATIVE (Negative); Resp Syncy Virus RNA Qual PCR NEGATIVE (Negative); SARS COV2 PCR INHOUSE NEGATIVE (Negative)
== END 2024-06-18 10:42 | disposition home or self-care (01) ==
LOC: HO.LNP 10:41
PROVIDERS: PCP Internal Medicine; Visit Provider Hospitalist
DX: B34.9 Viral infection, unspecified (principal); J44.1 Chronic obstructive pulmonary disease with (acute) exacerbation; J31.0 Chronic rhinitis; K21.9 Gastro-esophageal reflux disease without esophagitis; D80.1 Nonfamilial hypogammaglobulinemia; J44.89 Other specified chronic obstructive pulmonary disease
CPT/HCPCS: 0241U; 99212

== ENCOUNTER 2024-06-18 10:41 | Outpatient (AMB) | payer OTHER, SELFPAY ==
[2024-06-18 10:49] VITALS: BP 142/60; PULSE 116; TEMP 36.5; O2SAT 97; BMI 32.4
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
== END 2024-06-18 11:16 | disposition home or self-care (01) ==
PROVIDERS: PCP Internal Medicine; Visit Provider Hospitalist
DX: B34.9 Viral infection, unspecified (principal); J44.1 Chronic obstructive pulmonary disease with (acute) exacerbation; J31.0 Chronic rhinitis; K21.9 Gastro-esophageal reflux disease without esophagitis; D80.1 Nonfamilial hypogammaglobulinemia; J44.89 Other specified chronic obstructive pulmonary disease
CPT/HCPCS: 99214

== ENCOUNTER 2024-06-19 14:04 | Inpatient (IN) | payer OTHER, SELFPAY ==
[2024-06-19] VITALS (10 sets, daily range): BP systolic 123–161; BP diastolic 41–74; PULSE 80–117; RESP 16–20; TEMP 36.6–37.1; O2SAT 88–100; BMI 30.9
--- NOTE | ~2024-06-19 | XR_ITS ---
CLINICAL HISTORY: cough 1 view chest x-ray Comparison: CR/IN/SR - XR CHEST 2V - 10/02/23 13:12 EDT Findings: Bibasilar opacities. No pneumothorax. The cardiac silhouette is prominent. No CHF. Advanced degenerative changes in the bilateral glenohumeral joints. IMPRESSION: Bibasilar opacities secondary to volume loss and/or infection and/or small pleural effusions. This document has been electronically signed by: Tamera He DO on 06/19/2024 15:03:26
--- NOTE | 2024-06-19 14:21 | ECG_ITS ---
Test Reason : WEAKNESS Blood Pressure : / mmHG Vent. Rate : 110 BPM Atrial Rate : 110 BPM P-R Int : 138 ms QRS Dur : 070 ms QT Int : 316 ms P-R-T Axes : 064 028 026 degrees QTc Int : 427 ms Sinus tachycardia Otherwise normal ECG When compared with ECG of 02-OCT-2023 13:27, Nonspecific T wave abnormality now evident in Anterior leads Referred By: Meg Chang Electronically Signed By:CHUCHO BALTAZAR MD
[2024-06-19] MEDS: 0.9 % Sodium Chloride 500 ML IV (14:28)
[2024-06-19] MEDS: ondansetron HCL 4 MG/2 ML VIAL IVPUSH (14:31)
--- NOTE | 2024-06-19 14:31 | ED.NAVMDI ---
HPI - Nausea/Vomiting/Diarrhea General Chief complaint: Nausea/Vomiting/Diarrhea Stated complaint: NAUSEA VOMITING Time Seen by Provider: 06/19/24 14:16 Source: patient, EMS and old records reviewed Mode of arrival: EMS Limitations: no limitations History of Present Illness ED Provider: CAMILLA FELIPE Narrative: 78 yo female with PMH of COPD on 2L NC, DM, pneumonia, UTI, pneumonitis, GERD, IBS who came in after starting with n/v/d not feeling well since 3am. 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 She notes she was doing fine until 3am. NO recent travel, food exposures. She feels tired and weak. No GIB reported MD elicited complaint: nausea, vomiting and diarrhea Onset (ago): hour(s) (3am today) Description of vomiting: watery and bilious Description of diarrhea: watery Associated nausea: Yes Associated abdominal pain: No Severity: moderate Exacerbating factors: eating Relieving factors: none Context: sick contacts Associated symptoms: loss of appetite, malaise, nausea/vomiting and weakness Related Data Home Medications ?Medication ?Instructions ?Recorded ?Confirmed cetirizine 10 mg tablet 10 mg PO DAILY 03/21/20 05/14/24 dexlansoprazole 60 mg 60 mg PO DAILY 03/21/20 04/18/24 capsule,biphase delayed release nitroglycerin 0.4 mg sublingual 0.4 mg sublingual ONCE PRN Chest 03/21/20 05/14/24 tablet Pain albuterol sulfate 2.5 mg/3 mL 2.5 mg inhalation Q4H PRN wheezing 04/28/20 05/14/24 (0.083 %) solution for nebulization melatonin 10 mg tablet 10 mg PO BEDTIME PRN Sleep 08/19/21 05/14/24 aspirin 81 mg tablet,delayed 81 mg PO DAILY 09/02/21 05/14/24 release isosorbide mononitrate 30 mg 30 mg PO DAILY 09/02/21 05/14/24 tablet,extended release 24 hr Oxygen Home Use 09/16/22 04/18/24 nebulizers 09/16/22 04/18/24 metformin 500 mg tablet,extended 500 mg PO DAILY 10/30/23 05/14/24 release 24 hr metoprolol tartrate 50 mg tablet 100 mg PO DAILY 06/17/24 oseltamivir 30 mg capsule 30 mg PO Q12H 06/17/24 Previous Rx's ?Medication ?Instructions ?Recorded cholecalciferol (vitamin D3) 50 50 mcg PO DAILY 30 days #30 caps 04/08/20 mcg (2,000 unit) capsule fluticasone propionate 50 2 spray intranasal DAILY 30 days 08/11/22 mcg/actuation nasal #15.8 mL spray,suspension fluticasone fur. 200 mcg-umeclid 1 inh inhalation DAILY 30 days #60 07/19/23 62.5 mcg-vilant 25 mcg ea inhalat.powder (Trelegy Ellipta) azelastine 137 mcg (0.1 %) nasal 2 spray intranasal BID 30 days #30 09/19/23 spray mL lidocaine 5 % topical patch 1 patch topical DAILY #15 ea 04/11/24 celecoxib 50 mg capsule 50 mg PO BID #30 caps 04/18/24 albuterol sulfate 90 mcg/actuation 2 puff PO Q4H PRN for wheezing #1 05/14/24 aerosol inhaler ea methylprednisolone 4 mg tablets in See Rx Instructions PO PER PKG DIR 05/14/24 a dose pack (Medrol (Talib)) 6 days #21 ea methocarbamol 500 mg tablet 500 mg PO TID PRN muscle spasm #60 06/13/24 tabs polyethylene glycol 3350 17 17 g PO DAILY #238 grams 06/17/24 gram/dose oral powder (Miralax) psyllium husk 3.4 gram/5.4 gram 1 tbsp PO DAILY #660 grams 06/17/24 oral powder (Metamucil) doxycycline hyclate 100 mg capsule 100 mg PO BID 10 days #20 caps 06/18/24 methylprednisolone 4 mg tablets in See Rx Instructions PO PER PKG DIR 06/18/24 a dose pack (Medrol (Talib)) 6 days #21 ea Allergies Allergy/AdvReac Type Severity Reaction Status Date / Time amoxicillin [Augmentin] Allergy Mild Rash Verified 06/19/24 14:21 clavulanic acid Allergy Mild RASH Verified 06/19/24 14:21 [From Augmentin] Review of Systems Review of Systems: Constitutional : No Weight loss, No Fever, No Chills ENT/Mouth : No sore throat, No Rhinorrhea Eyes: No Swelling, No Redness Cardiovascular : No Chest Pain, No SOB, NoEdema Respiratory : No Cough, No Sputum, No Wheezing Gastrointestinal : Positive Nausea, Positive Vomiting, pos Diarrhea, no abdominal Pain, No Hematochezia, No Melena Genitourinary : No Dysuria, No Urinary Frequency, No Hematuria, No Urgency Musculoskeletal : No joint pain, No Myalgias, No Joint Swelling Skin : No Skin Lesions, No rash Neuro : No Weakness, No Numbness, No Dizziness, No Headache Psych : No Anxiety/Panic, No Depression All other systems reviewed and are negative. Gastrointestinal: Gastrointestinal: Reports nausea PMFSH Past Medical History Attestation statement: The following information was validated with the patient. Source: old records reviewed Medical History Chronic respiratory failure Asthma-COPD overlap syndrome Incontinence in female History of adenomatous polyp of colon Pneumonitis Bronchopneumonia Hypogammaglobulinemia Chronic rhinitis Dizziness Headache Hyperlipidemia HTN (hypertension) Diabetes COPD (chronic obstructive pulmonary disease) Surgical History S/P right coronary artery (RCA) stent placement H/O colonoscopy History of foot surgery History of toe surgery History of bunionectomy Family History Family History Mother No problems noted. Father No problems noted. Social History 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 services: No (34 hrs [employer]) Alcohol intake: never Patient Tobacco Use Status: Former Tobacco user Tobacco use type: Cigarette Advance Directives: Yes Advance Directives on File: Yes Advance Directives Date on File: 10/03/23 service: No Current occupational status: retired Sexual orientation: Straight/Heterosexual Gender identity: Female Physical Exam Vital Signs: Vital Signs: Last Vital Signs Temp 98.3 F 06/19/24 18:03 Pulse 108 H 06/19/24 18:22 Resp 16 06/19/24 18:03 BP 154/61 H 06/19/24 18:22 Pulse Ox 96 06/19/24 18:03 O2 Del Method Room Air 06/19/24 18:03 O2 Flow Rate 2 06/19/24 14:58 BMI result Body Mass Index 30.9 Appearance: Alert. Oriented X3. No acute distress. Eyes: Pupils equal, round and reactive to light. ENT: Pharynx dry MM Neck: Normal inspection. Neck supple. CVS: Normal heart rate and rhythm. Pulses normal. Respiratory: No respiratory distress. Breath sounds mildly decreased. Abdomen: Soft and non-tender. Skin: Skin warm and dry. Normal skin color. Normal skin turgor. Extremities: No lower extremity edema. No calf ttp Neuro: Oriented X 3. No motor deficit. No sensory deficit. Course Course Course Narrative: given cxr and recent fever with cough will cover with ceftriaxone possible infection suspected 411pm Medications Administered Discontinued Medications Generic Name Dose Route Start Last Admin Trade Name Freq PRN Reason Stop Dose Admin Acetaminophen 650 mg 06/19/24 17:50 06/19/24 18:21 Acetaminophen 325 Mg Tablet PO 06/19/24 17:51 650 mg ONCE ONE Administration Ceftriaxone Sodium 1 gm 06/19/24 16:11 06/19/24 17:01 Ceftriaxone Sodium 1 Gm Vial IVPUSH 06/19/24 16:12 1 gm ONCE ONE Administration Sodium Chloride 500 mls @ 500 mls/hr 06/19/24 14:21 06/19/24 15:28 Ns IV 06/19/24 15:20 Infused .Q1H ONE Infusion Metoprolol Tartrate 50 mg 06/19/24 17:51 06/19/24 18:22 Metoprolol Tartrate 50 Mg Tablet PO 06/19/24 17:52 50 mg ONCE ONE Administration Protocol Ondansetron HCl 4 mg 06/19/24 14:21 06/19/24 14:31 Ondansetron Hcl 4 Mg/2 Ml Vial IVPUSH 06/19/24 14:22 4 mg ONCE ONE Administration Medical Decision Making Medical Decision Making MDM Narrative: 78 yo female with PMH of COPD on 2L NC, DM, pneumonia, UTI, pneumonitis, GERD, IBS who reports n/v/d since 3am and doesn't fell recently started on doxycycline yesterday for 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 At this time she had sick contact will obtain basic labs, EKG, CXR, start on very gentle fluids and zofran. She is on her home O2 at this time normal saturations. She otherwise has benign abdominal exam Differential Diagnosis Differential Diagnoses: The differential diagnosis associated with the presentation includes virus, dehdyration, med reaction Admission/Observation Consideration of admission/observation: Escalation of care including admission/observation considered Lab Data MDM Lab Attestation statement: I reviewed the patient's lab results. 06/19/24 15:06 06/19/24 15:06 Labs: Lab Results 06/19/24 06/19/24 06/19/24 Range/Units 15:06 15:34 16:45 WBC 10.5 (4.8-10.8) X10*3/uL RBC 4.35 (4.20-5.50) X10*6/uL Hgb 13.1 (12.0-16.0) g/dl Hct 39.2 (37.0-47.0) % MCV 90.1 (80.0-98.0) fL MCH 30.1 (27.0-33.0) pg MCHC 33.4 (31.0-35.0) g/dl RDW 14.8 (11.0-16.0) % Plt Count 283 (160-400) X10*3/uL MPV 10.4 (9.4-12.3) fL Immature Gran % (Auto) 0.6 H (0.0-0.4) % Neut % (Auto) 89.1 H (45-73) % Lymph % (Auto) 3.4 L (20-40) % [place] % (Auto) 5.4 (2-11) % Eos % (Auto) 1.3 (0-4) % Baso % (Auto) 0.2 (0-2) % Lymph # (Auto) 0.4 L (1.2-4.9) X10*3/uL [place] # (Auto) 0.6 (0.1-1.2) X10*3/uL Eos # (Auto) 0.1 (0.0-0.4) X10*3/uL Baso # (Auto) 0.0 (0.0-0.2) X10*3/uL Abs Immat Gran (auto) 0.06 H (0.00-0.03) X10*3/uL Absolute Neuts (auto) 9.3 H (2.0-8.3) x10*3/uL Absolute Nucleated RBC 0.000 (0.0-0.012) X10*3/uL Nucleated RBC % (auto) 0.0 (0.0-0.2) /100WBC Sodium 146 H (135-145) mmol/L Potassium 4.6 (3.3-5.1) mmol/L Chloride 110 H (96-108) mmol/L Carbon Dioxide 24 (22-29) mmol/L Anion Gap 17 (12-20) BUN 20 H (9-16) mg/dL Creatinine 1.25 (0.5-1.4) mg/dL Estim Creat Clear Calc 37.7 Estimated GFR 41 Random Glucose 106 (60-115) mg/dL Lactic Acid 2.4 H* (0.5-2.0) mmol/L Lactic Acid F/U @ 2Hr (0.5-2.0) mmol/L Calcium 9.7 (8.4-10.2) mg/dL Magnesium 1.9 (1.6-2.6) mg/dL Total Bilirubin 0.7 (0.0-1.0) mg/dL Direct Bilirubin 0.2 (0.0-0.5) mg/dL AST 22 (5-31) U/L ALT 17 (0-31) U/L Alkaline Phosphatase 102 (39-117) U/L Troponin I High Sens 4.0 (<3.5-17.0) ng/L C-Reactive Protein 1.50 H (< or = 0.50) mg/dL B-Natriuretic Peptide 149 H (<100) pg/mL Total Protein 7.8 (6.5-8.0) g/dL Albumin 4.5 (3.5-5.0) g/dL Lipase 33 (8-78) U/L Procalcitonin 0.23 ng/mL Urine Color Yellow Urine Appearance Clear Urine pH 6.0 (5.0-9.0) Ur Specific [place] 1.010 (1.005-1.025) Urine Protein Negative (Neg-Trace) mg/dL Urine Glucose (UA) Negative (Negative) mg/dL Urine Ketones Negative (Negative) mg/dL Urine Blood Negative (Negative) Urine Nitrite Negative (Negative) Ur Leukocyte Esterase Small (1+) H (Negative) Urine RBC 0-2 (0-2) /HPF Urine WBC 11-20 H (0-5) /HPF Ur Squamous Epith Cells 0-2 (0-2) /HPF Urine Bacteria None Seen (None Seen) Hyaline Casts 0-2 (0-2) /LPF Influenza Type A (PCR) NEGATIVE (Negative) Influenza Type B (PCR) NEGATIVE (Negative) RSV RNA Qual (PCR) NEGATIVE (Negative) SARS-CoV-2 RNA (RT-PCR) NEGATIVE (Negative) 06/19/24 Range/Units 17:51 WBC (4.8-10.8) X10*3/uL RBC (4.20-5.50) X10*6/uL Hgb (12.0-16.0) g/dl Hct (37.0-47.0) % MCV (80.0-98.0) fL MCH (27.0-33.0) pg MCHC (31.0-35.0) g/dl RDW (11.0-16.0) % Plt Count (160-400) X10*3/uL MPV (9.4-12.3) fL Immature Gran % (Auto) (0.0-0.4) % Neut % (Auto) (45-73) % Lymph % (Auto) (20-40) % [place] % (Auto) (2-11) % Eos % (Auto) (0-4) % Baso % (Auto) (0-2) % Lymph # (Auto) (1.2-4.9) X10*3/uL [place] # (Auto) (0.1-1.2) X10*3/uL Eos # (Auto) (0.0-0.4) X10*3/uL Baso # (Auto) (0.0-0.2) X10*3/uL Abs Immat Gran (auto) (0.00-0.03) X10*3/uL Absolute Neuts (auto) (2.0-8.3) x10*3/uL Absolute Nucleated RBC (0.0-0.012) X10*3/uL Nucleated RBC % (auto) (0.0-0.2) /100WBC Sodium (135-145) mmol/L Potassium (3.3-5.1) mmol/L Chloride (96-108) mmol/L Carbon Dioxide (22-29) mmol/L Anion Gap (12-20) BUN (9-16) mg/dL Creatinine (0.5-1.4) mg/dL Estim Creat Clear Calc Estimated GFR Random Glucose (60-115) mg/dL Lactic Acid (0.5-2.0) mmol/L Lactic Acid F/U @ 2Hr 2.1 H* (0.5-2.0) mmol/L Calcium (8.4-10.2) mg/dL Magnesium (1.6-2.6) mg/dL Total Bilirubin (0.0-1.0) mg/dL Direct Bilirubin (0.0-0.5) mg/dL AST (5-31) U/L ALT (0-31) U/L Alkaline Phosphatase (39-117) U/L Troponin I High Sens (<3.5-17.0) ng/L C-Reactive Protein (< or = 0.50) mg/dL B-Natriuretic Peptide (<100) pg/mL Total Protein (6.5-8.0) g/dL Albumin (3.5-5.0) g/dL Lipase (8-78) U/L Procalcitonin ng/mL Urine Color Urine Appearance Urine pH (5.0-9.0) Ur Specific [place] (1.005-1.025) Urine Protein (Neg-Trace) mg/dL Urine Glucose (UA) (Negative) mg/dL Urine Ketones (Negative) mg/dL Urine Blood (Negative) Urine Nitrite (Negative) Ur Leukocyte Esterase (Negative) Urine RBC (0-2) /HPF Urine WBC (0-5) /HPF Ur Squamous Epith Cells (0-2) /HPF Urine Bacteria (None Seen) Hyaline Casts (0-2) /LPF Influenza Type A (PCR) (Negative) Influenza Type B (PCR) (Negative) RSV RNA Qual (PCR) (Negative) SARS-CoV-2 RNA (RT-PCR) (Negative) Independent Interpretation I performed an independent interpretation of an: EKG and Plain X-Ray (?effusions) Interpretation: Rate: 110 Rhythm: sinus tach [place]: normal Normal P waves. Normal LIDIA. Normal QRS complex. ST T wave : no ANI, inverted t waves V1 qTC: 427 prior studies: no acute ischemia The study has been interpreted contemporaneously by me. . Radiology Impression Discussion of test interpretation with radiology: I have reviewed the radiologist's reading. Independent Historian Clinical information obtained from an independent historian. History obtained from or confirmed by: EMS External Record Review External record reviewed: Inpatient record and Outpatient record Discharge Plan Discharge Clinical Impression: COPD with acute exacerbation, Pneumonia, Nausea & vomiting, Acidosis, lactic Patient Disposition: Admitted As Inpatient Prescriptions: No Action cholecalciferol (vitamin D3) 50 mcg (2,000 unit) capsule 50 mcg PO DAILY 30 Days Qty: 30 3RF azelastine 137 mcg (0.1 %) aerosol,spray 2 spray intranasal BID 30 Days Qty: 30 6RF Rx Instructions: administer into each nostril methocarbamol 500 mg tablet 500 mg PO TID PRN (Reason: muscle spasm) Qty: 60 0RF Rx Instructions: Discontinue use of Cyclobenzaprine No driving while taking this medication. Do no take with alcohol or other [employer] Depressants lidocaine 5 % adhesive patch,medicated 1 patch topical DAILY Qty: 15 0RF Rx Instructions: leave on most painful area for up to 12 hrs albuterol sulfate 2.5 mg /3 mL (0.083 %) solution for nebulization 2.5 mg inhalation Q4H PRN (Reason: wheezing) nitroglycerin 0.4 mg tablet, sublingual 0.4 mg sublingual ONCE PRN (Reason: Chest Pain) dexlansoprazole 60 mg capsule,biphase delayed releas 60 mg PO DAILY cetirizine 10 mg tablet 10 mg PO DAILY aspirin 81 mg tablet,delayed release (DR/EC) 81 mg PO DAILY isosorbide mononitrate 30 mg tablet extended release 24 hr 30 mg PO DAILY fluticasone propionate 50 mcg/actuation spray,suspension 2 spray intranasal DAILY 30 Days Qty: 15.8 11RF melatonin 10 mg tablet 10 mg PO BEDTIME PRN (Reason: Sleep) (DME) Oxygen Home Use Kit See Rx Instructions .Route Rx Instructions: As directed ([facility] [place]) nebulizers [facility] [place] See Rx Instructions .Route Rx Instructions: As directed metoprolol tartrate 50 mg tablet 100 mg PO DAILY metformin 500 mg tablet extended release 24 hr 500 mg PO DAILY oseltamivir 30 mg capsule 30 mg PO Q12H polyethylene glycol 3350 [Miralax] 17 gram/dose powder 17 g PO DAILY Qty: 238 1RF Metamucil 3.4 gram/5.4 gram powder 1 tbsp PO DAILY Qty: 660 1RF Rx Instructions: mix into at least 8 oz of water or juice before administering albuterol sulfate 90 mcg/actuation HFA aerosol inhaler 2 puff PO Q4H PRN (Reason: for wheezing) Qty: 1 11RF methylprednisolone [Medrol (Talib)] 4 mg tablets,dose pack See Rx Instructions PO PER PKG DIR 6 Days Qty: 21 0RF Rx Instructions: PO PER PKG DIR methylprednisolone [Medrol (Talib)] 4 mg tablets,dose pack See Rx Instructions PO PER PKG DIR 6 Days Qty: 21 0RF Rx Instructions: PO PER PKG DIR doxycycline hyclate 100 mg capsule 100 mg PO BID 10 Days Qty: 20 0RF Trelegy Ellipta 200-62.5-25 mcg blister with device 1 inh inhalation DAILY 30 Days Qty: 60 12RF celecoxib 50 mg capsule 50 mg PO BID Qty: 30 0RF Rx Instructions: Take with food, do not take with any other nonsteroidal anti-inflammatory medications Print Language: Indonesian
[2024-06-19 15:12] LABS: MANUAL DIFF FLAG NO
[2024-06-19 15:13] LABS: Basophils Percent Auto 0.2 % (0-2); Eosinophils Absolute Auto 0.1 X10*3/uL (0.0-0.4); Eosinophils Percent Auto 1.3 % (0-4); Hematocrit 39.2 % (37.0-47.0); Hemoglobin 13.1 g/dl (12.0-16.0); Imm Gran Abs Auto 0.06 X10*3/uL (0.00-0.03); Imm Gran Pct Auto 0.6 % (0.0-0.4); Lymphocytes Absolute Auto 0.4 X10*3/uL (1.2-4.9); Lymphocytes Percent Auto 3.4 % (20-40); Mean Corpuscular HGB Conc 33.4 g/dl (31.0-35.0); Mean Corpuscular Hemoglobin 30.1 pg (27.0-33.0); Mean Corpuscular Volume 90.1 fL (80.0-98.0); Mean Platelet Volume 10.4 fL (9.4-12.3); Monocytes Absolute Auto 0.6 X10*3/uL (0.1-1.2); Monocytes Percent Auto 5.4 % (2-11); Neutrophils Absolute Auto 9.3 x10*3/uL (2.0-8.3); Neutrophils Percent Auto 89.1 % (45-73); Platelet Count 283 X10*3/uL (160-400); Red Blood Count 4.35 X10*6/uL (4.20-5.50); Red Cell Distribution Width 14.8 % (11.0-16.0); White Blood Count 10.5 X10*3/uL (4.8-10.8)
[2024-06-19 15:51] LABS: Alanine Aminotransferase 17 U/L (0-31); Albumin Level 4.5 g/dL (3.5-5.0); Anion Gap 17 (12-20); Aspartate Amino Transferase 22 U/L (5-31); Bilirubin Direct 0.2 mg/dL (0.0-0.5); Bilirubin Total 0.7 mg/dL (0.0-1.0); Blood Urea Nitrogen 20 mg/dL (9-16); Calcium 9.7 mg/dL (8.4-10.2); Carbon Dioxide 24 mmol/L (22-29); Chloride 110 mmol/L (96-108); Creatinine Clr Calc Pharmacy 37.7; Estimated Glomerular Filt Rate 41; Glucose Random 106 mg/dL (60-115); Lipase 33 U/L (8-78); Magnesium 1.9 mg/dL (1.6-2.6); Potassium 4.6 mmol/L (3.3-5.1); Sodium 146 mmol/L (135-145); Total Protein 7.8 g/dL (6.5-8.0)
[2024-06-19 15:52] LABS: Influenza A PCR NEGATIVE (Negative); Influenza B PCR NEGATIVE (Negative); Resp Syncy Virus RNA Qual PCR NEGATIVE (Negative); SARS COV2 PCR INHOUSE NEGATIVE (Negative)
[2024-06-19 16:03] LABS: B Type Natriuretic Peptide 149 pg/mL (<100)
[2024-06-19 16:11] LABS: Alkaline Phosphatase 102 U/L (39-117)
[2024-06-19 16:18] LABS: Lactic Acid 2.4 mmol/L (0.5-2.0)
[2024-06-19 16:19] LABS: Procalcitonin 0.23 ng/mL
[2024-06-19 16:53] LABS: Appearance Urine Clear; Color Urine Yellow; Glucose Urine UA Negative (Negative); Leukocyte Esterase Urine Small (1+) (Negative); Nitrite Urine Negative (Negative); UMIC TRIGGER UACC YES; Urine Blood Negative (Negative); Urine Ketones Negative (Negative); Urine Protein Negative (Neg-Trace)
[2024-06-19 16:56] LABS: Bacteria Urine None Seen (None Seen); Hyaline Casts Urine 0-2 /LPF (0-2); RBC Urine 0-2 /HPF (0-2); Squamous Epithelial Cell Urine 0-2 /HPF (0-2); UACC Culture Trigger YES
[2024-06-19] MEDS: cefTRIAXone sodium 1 GM VIAL IVPUSH (17:01)
[2024-06-19 17:40] LABS: Reflex Lactate? Lactic Acid Added
--- NOTE | 2024-06-19 17:54 | PC.NURSE ---
spoke with pt dtr Jaimie- updated on plan of care- dtr currently traveling from [place] to [place]
[2024-06-19] MEDS: Acetaminophen 325 MG TABLET 650 MG PO (18:21)
[2024-06-19] MEDS: Metoprolol Tartrate 50 MG TABLET PO (18:22)
[2024-06-19 18:30] LABS: ~Lactic Acid-LAB USE ONLY 2.1 mmol/L (0.5-2.0)
[2024-06-19] MEDS: Azithromycin 500 MG in 0.9 % Sodium Chloride 250 ML 125 MG IV (19:12)
[2024-06-19 19:55] LABS: Reflex Lactate? 2 Y
--- NOTE | 2024-06-19 20:54 | P.HPHOSP_ITS ---
History of Present Illness Date of Service: 06/19/24 Attending physician on admission: Jameson Krueger Chief Complaint: Nausea, vomiting, diarrhea Patient is a 78-year-old female with a past medical history significant for COPD on 2 L NC, type 2 diabetes (no meds), pneumonia, UTI, pneumonitis, GERD, IBS and obesity who presented to the ED with nausea, vomiting and diarrhea since 03:00 today. She reports having at least 7 episodes of diarrhea without any blood in the stool strange odor or color. She reports that she was near her son-in-law recently who also had a GI illness. She also had a fever on and was seen by her wall to wall carpet installer who diagnosed her with pneumonia without an x-ray or swab and started her on doxycycline and a Medrol Dosepak. She reports she has taken 2 doses of the steroid. She has not been able to tolerate the doxycycline. Her cough is not productive but she reports chills and body aches. She denies any lower extremity edema, headache, nasal congestion or sore throat. She feels comfortable overall currently and is not having any wheezing at this time. Review of Systems 2 Constitutional: Constitutional: Reports body ache(s), Reports chills, Reports fatigue, Reports fever(s) and Denies headache(s) Eyes: Eyes: Denies change in vision ENT: Denies headache(s), Denies nasal congestion, Denies nasal discharge and Denies sore throat Cardiovascular: Cardiovascular: Denies rapid heart rate, Denies leg edema and Denies dyspnea Respiratory: Respiratory: Reports chest congestion, Reports cough, Denies hemoptysis, Denies dyspnea and Denies wheezing Gastrointestinal: Gastrointestinal: Denies melena, Denies hematochezia, Denies coffee ground emesis, Reports diarrhea, Reports nausea, Reports vomiting and Denies hematemesis Genitourinary: Genitourinary: Denies dysuria and Denies urinary urgency Musculoskeletal: Musculoskeletal: Reports myalgias Integumentary/Breasts: Skin/Breast: Denies rash Neurologic: Denies confusion, Denies headache(s) and Denies memory loss Psychiatric: Psychiatric: Denies confusion and Denies memory loss Endocrine: Endocrine: Reports fatigue Hematologic/Lymphatic: Hematologic/Lymphatic: Denies easy bleeding and Denies easy bruising Allergic/Immunologic: Allergic/Immunologic: Denies wheezing PMF Medical History Chronic respiratory failure Asthma-COPD overlap syndrome Incontinence in female History of adenomatous polyp of colon Pneumonitis Bronchopneumonia Hypogammaglobulinemia Chronic rhinitis Dizziness Headache Hyperlipidemia HTN (hypertension) Diabetes COPD (chronic obstructive pulmonary disease) Family History Mother No problems noted. Father No problems noted. 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 Meds Allergies Allergy/AdvReac Type Severity Reaction Status Date / Time amoxicillin [Augmentin] Allergy Mild Rash Verified 06/19/24 14:21 clavulanic acid Allergy Mild RASH Verified 06/19/24 14:21 [From Augmentin] Active Medications: Current Medications Acetaminophen (Acetaminophen 325 Mg Tablet) 650 mg PO Q6H PRN PRN Reason: Pain, Mild 1-3,fever,headache Albuterol/Ipratropium (Albuterol/Iprat 2.5/0.5mg 3 Ml Ampul.Neb) 3 ml INHALE Q4H PRN PRN Reason: Shortness of Breath/Wheezing Albuterol/Ipratropium (Albuterol/Iprat 2.5/0.5mg 3 Ml Ampul.Neb) 3 ml INHALE RQ4H WHILE AWAKE [facility] Benzonatate (Benzonatate 100 Mg Capsule) 100 mg PO TID PRN PRN Reason: Cough Calcium Carbonate (Calcium Carbonate 750 Mg Tab.Chew) 750 mg PO Q4H PRN PRN Reason: Heartburn Ceftriaxone Sodium (Ceftriaxone Sodium 1 Gm Vial) 1 gm IVPUSH Q24H [facility] Enoxaparin Sodium (Enoxaparin Sodium 30 Mg/0.3 Ml Syringe) 30 mg SUBCUT Q24H [facility] Azithromycin 500 mg/ Sodium (Chloride) 250 mls @ 125 mls/hr IV ONCE ONE Stop: 06/19/24 20:54 Last Admin: 06/19/24 19:12 Dose: 125 mls/hr Azithromycin 500 mg/ Sodium (Chloride) 250 mls @ 125 mls/hr IV Q24H [facility] Magnesium Hydroxide (Milk Of Magnesia 30 Ml Oral.Susp) 30 ml PO DAILY PRN PRN Reason: Constipation Melatonin (Melatonin 3 Mg Tablet) 6 mg PO BEDTIME PRN PRN Reason: Insomnia Methylprednisolone Sodium Succinate (Methylprednisolone Sod Succ 40 Mg/Ml Vial) 40 mg IVPUSH Q12H [facility] Ondansetron HCl (Ondansetron Hcl 4 Mg/2 Ml Vial) 4 mg IVPUSH Q8H PRN PRN Reason: Nausea and Vomiting Sodium Chloride (0.9 % Sodium Chloride Flush 3 Ml Syringe) 3 ml IVFLUSH QSHIFT [facility] Home Medications ?Medication ?Instructions ?Recorded ?Confirmed ?Last Taken ?Type cetirizine 10 mg tablet 10 mg PO DAILY 03/21/20 05/14/24 10/01/23 History dexlansoprazole 60 mg 60 mg PO DAILY 03/21/20 04/18/24 10/01/23 History capsule,biphase delayed release nitroglycerin 0.4 mg sublingual 0.4 mg sublingual ONCE PRN Chest 03/21/20 05/14/24 Unknown History tablet Pain albuterol sulfate 2.5 mg/3 mL 2.5 mg inhalation Q4H PRN wheezing 04/28/20 05/14/24 Unknown History (0.083 %) solution for nebulization melatonin 10 mg tablet 10 mg PO BEDTIME PRN Sleep 08/19/21 05/14/24 10/01/23 History aspirin 81 mg tablet,delayed 81 mg PO DAILY 09/02/21 05/14/24 10/01/23 History release isosorbide mononitrate 30 mg 30 mg PO DAILY 09/02/21 05/14/24 10/01/23 History tablet,extended release 24 hr Oxygen Home Use 09/16/22 04/18/24 Unknown History nebulizers 09/16/22 04/18/24 Unknown History metformin 500 mg tablet,extended 500 mg PO DAILY 10/30/23 05/14/24 Unknown History release 24 hr metoprolol tartrate 50 mg tablet 100 mg PO DAILY 06/17/24 Unknown History oseltamivir 30 mg capsule 30 mg PO Q12H 06/17/24 Unknown History Physical Exam 2 Vital Signs and Narrative: Vital Signs: Last Vital Signs Temp 98.1 F 06/19/24 19:50 Pulse 80 06/19/24 19:50 Resp 16 06/19/24 19:50 BP 130/41 L 06/19/24 19:50 Pulse Ox 98 06/19/24 19:50 O2 Del Method Room Air 06/19/24 19:50 O2 Flow Rate 2 06/19/24 14:58 BMI result Body Mass Index 30.9 General: AOx3, no acute distress Resp: Crackles left mid lung, no active wheezing in any lung celestin, diminished throughout CVS: Tachycardic, regular rhythm GI: +BS, NT, no distention Skin: Warm, dry Extremities: No LE edema Psych: Appropriate affect Const: General: No confusion Orientation/consciousness: No confusion Neuro: General: No confusion Results Labs 06/19/24 15:06 06/19/24 15:06 Labs: Laboratory Results - last 24 hr 06/19/24 06/19/24 06/19/24 15:06 15:34 16:45 MCV 90.1 MCH 30.1 MCHC 33.4 RDW 14.8 Plt Count 283 MPV 10.4 Immature Gran % (Auto) 0.6 H Neut % (Auto) 89.1 H Lymph % (Auto) 3.4 L [place] % (Auto) 5.4 Eos % (Auto) 1.3 Baso % (Auto) 0.2 Lymph # (Auto) 0.4 L [place] # (Auto) 0.6 Eos # (Auto) 0.1 Baso # (Auto) 0.0 Abs Immat Gran (auto) 0.06 H Absolute Neuts (auto) 9.3 H Absolute Nucleated RBC 0.000 Nucleated RBC % (auto) 0.0 Anion Gap 17 Estim Creat Clear Calc 37.7 Estimated GFR 41 Random Glucose 106 Lactic Acid 2.4 H* Lactic Acid F/U @ 2Hr Calcium 9.7 Magnesium 1.9 Total Bilirubin 0.7 Direct Bilirubin 0.2 AST 22 ALT 17 Alkaline Phosphatase 102 Troponin I High Sens 4.0 C-Reactive Protein 1.50 H B-Natriuretic Peptide 149 H Total Protein 7.8 Albumin 4.5 Lipase 33 Procalcitonin 0.23 Urine Color Yellow Urine Appearance Clear Urine pH 6.0 Ur Specific [place] 1.010 Urine Protein Negative Urine Glucose (UA) Negative Urine Ketones Negative Urine Blood Negative Urine Nitrite Negative Ur Leukocyte Esterase Small (1+) H Urine RBC 0-2 Urine WBC 11-20 H Ur Squamous Epith Cells 0-2 Urine Bacteria None Seen Hyaline Casts 0-2 Influenza Type A (PCR) NEGATIVE Influenza Type B (PCR) NEGATIVE RSV RNA Qual (PCR) NEGATIVE SARS-CoV-2 RNA (RT-PCR) NEGATIVE 06/19/24 17:51 MCV MCH MCHC RDW Plt Count MPV Immature Gran % (Auto) Neut % (Auto) Lymph % (Auto) [place] % (Auto) Eos % (Auto) Baso % (Auto) Lymph # (Auto) [place] # (Auto) Eos # (Auto) Baso # (Auto) Abs Immat Gran (auto) Absolute Neuts (auto) Absolute Nucleated RBC Nucleated RBC % (auto) Anion Gap Estim Creat Clear Calc Estimated GFR Random Glucose Lactic Acid Lactic Acid F/U @ 2Hr 2.1 H* Calcium Magnesium Total Bilirubin Direct Bilirubin AST ALT Alkaline Phosphatase Troponin I High Sens C-Reactive Protein B-Natriuretic Peptide Total Protein Albumin Lipase Procalcitonin Urine Color Urine Appearance Urine pH Ur Specific [place] Urine Protein Urine Glucose (UA) Urine Ketones Urine Blood Urine Nitrite Ur Leukocyte Esterase Urine RBC Urine WBC Ur Squamous Epith Cells Urine Bacteria Hyaline Casts Influenza Type A (PCR) Influenza Type B (PCR) RSV RNA Qual (PCR) SARS-CoV-2 RNA (RT-PCR) Assessment and Plan (1) Sepsis: Status: Acute (2) CAP (community acquired pneumonia): Qualifiers: Laterality: left Lung location: lower lobe of lung Qualified Code(s): J18.9 - Pneumonia, unspecified organism Status: Acute (3) Chronic respiratory failure: Status: Acute (4) COPD with acute exacerbation: Status: Acute (5) Nausea & vomiting: Qualifiers: Vomiting type: unspecified Qualified Code(s): R11.2 - Nausea with vomiting, unspecified Status: Acute (6) Diarrhea: Status: Acute (7) Obesity (BMI 30.0-34.9): Status: Acute Plan Patient is a 78-year-old female with a past medical history significant for COPD on 2 L NC, type 2 diabetes (no meds), pneumonia, UTI, pneumonitis, GERD, IBS and obesity who presented to the ED with nausea, vomiting and diarrhea since 03:00 today. She also reported being diagnosed with community-acquired pneumonia yesterday and was started on doxycycline and prednisone by her wall to wall carpet installer. Chest x-ray here with bibasilar opacities due to volume loss and/or infection and/or small pleural effusions. Given recent fever and diagnosis of pneumonia most likely infectious. Sepsis secondary to community-acquired pneumonia - no leukocytosis, however, elevated neutrophils, elevated lactic acid and tachycardic. Blood cultures x2 pending, not severe sepsis. - chest x-ray with bibasilar opacities due to volume loss and/or infection and/or small pleural effusions - COVID/flu/RSV negative - BNP mildly elevated at 149 - EKG with sinus tachycardia - started on azithromycin and ceftriaxone in ED, continue - procalcitonin normal - given 500 mL NS in ED, we will hold off on further fluids for now due to possible pleural effusions - monitor CBC and CMP Chronic respiratory failure secondary to combined COPD/asthma with acute exacerbation - remaining on 2 L O2 - baseline - DuoNebs q.4h while awake - Solu-Medrol 40 mg b.i.d. Nausea, vomiting and diarrhea - could be secondary to pneumonia, recent abx use, or recent exposure to GI illness - GI panel and C diff given recent antibiotics Type 2 diabetes - triggered by steroids in the past, no current DM meds - monitor POC - sliding scale as needed - diabetic diet Obesity - BMI 30.9 - weight loss encouraged Full code VTE prophylaxis: Lovenox Patient with sepsis secondary to community-acquired pneumonia complicated by acute exacerbation of COPD/asthma, requiring admission for at least 2 midnights stay for IV antibiotics and monitoring. Quality Stroke Does the patient have a stroke diagnosis?: No VTE Prior VTE?: No VTE Risk Level:: Medical - moderate - high VTE Device Contraindication: Treatment Not Indicated VTE Drug Contraindication: N/A - Med Ordered
[2024-06-19 21:16] LABS: ~Lactic Acid-LAB USE ONLY 1.8 mmol/L (0.5-2.0)
[2024-06-19 21:36] LABS: Cancel Lactic Acid Canceled
[2024-06-19] MEDS: methylPREDNISolone Sod Succ 40 MG/ML VIAL IVPUSH (21:36)
[2024-06-19] MEDS: Enoxaparin Sodium 30 MG/0.3 ML SYRINGE SUBCUT (21:38)
--- NOTE | 2024-06-19 23:39 | PC.NURSE ---
this rn assumed care of pt, pt a&ox4, respirations even and unlabored. vss. no acute distress noted.
[2024-06-20] VITALS (11 sets, daily range): BP systolic 106–144; BP diastolic 55–84; PULSE 84–99; RESP 16–20; TEMP 36–37.1; O2SAT 2–99; BMI 31.6
[2024-06-20 01:23] LABS: Glucose, Whole Blood 134 mg/dL (60-115)
[2024-06-20] MEDS: Acetaminophen 325 MG TABLET 650 MG PO ×2 (01:29→09:32)
[2024-06-20] MEDS: 0.9 % Sodium Chloride Flush 3 ML SYRINGE IVFLUSH ×4 (01:29→20:34)
[2024-06-20 06:18] LABS: Basophils Percent Auto 0.2 % (0-2); Hemoglobin 11.1 g/dl (12.0-16.0); Imm Gran Abs Auto 0.04 X10*3/uL (0.00-0.03); Imm Gran Pct Auto 0.6 % (0.0-0.4); Lymphocytes Absolute Auto 0.4 X10*3/uL (1.2-4.9); Lymphocytes Percent Auto 5.5 % (20-40); MANUAL DIFF FLAG SCAN; Mean Corpuscular HGB Conc 32.6 g/dl (31.0-35.0); Mean Corpuscular Hemoglobin 29.7 pg (27.0-33.0); Mean Corpuscular Volume 90.9 fL (80.0-98.0); Monocytes Absolute Auto 0.2 X10*3/uL (0.1-1.2); Monocytes Percent Auto 2.7 % (2-11); Neutrophils Absolute Auto 5.8 x10*3/uL (2.0-8.3); Platelet Count 236 X10*3/uL (160-400); Red Blood Count 3.74 X10*6/uL (4.20-5.50); Red Cell Distribution Width 15.1 % (11.0-16.0); SCAN SMEAR FLAG 1; White Blood Count 6.3 X10*3/uL (4.8-10.8)
[2024-06-20 06:30] LABS: Anion Gap 15 (12-20); Blood Urea Nitrogen 18 mg/dL (9-16); Calcium 8.8 mg/dL (8.4-10.2); Carbon Dioxide 23 mmol/L (22-29); Chloride 108 mmol/L (96-108); Creatinine Clr Calc Pharmacy 38.8; Estimated Glomerular Filt Rate 42; Glucose Random 161 mg/dL (60-115); Potassium 4.5 mmol/L (3.3-5.1); Sodium 141 mmol/L (135-145)
[2024-06-20 07:09] LABS: SLIDE REVIEW VERIFIED
[2024-06-20 07:25] LABS: Glucose, Whole Blood 129 mg/dL (60-115)
[2024-06-20] MEDS: methylPREDNISolone Sod Succ 40 MG/ML VIAL IVPUSH ×2 (07:50→20:32)
[2024-06-20] MEDS: Albuterol/Iprat 2.5/0.5MG 3 ML AMPUL.NEB INHALE ×4 (08:21→19:45)
--- NOTE | 2024-06-20 09:45 | PHA.MEDREC ---
Pharmacy Consult ? Medication Reconciliation Pharmacy has completed the medication reconciliation. Spoke with patient at bedside, she was able to tell me her meds with some prompting.
[2024-06-20] MEDS: Metoprolol Tartrate 50 MG TABLET PO ×2 (10:39→20:32)
[2024-06-20] MEDS: Isosorbide Mononitrate 30 MG TAB.ER.24H PO (10:44)
[2024-06-20 11:34] LABS: Glucose, Whole Blood 139 mg/dL (60-115)
--- NOTE | 2024-06-20 13:01 | MHC.CM.PN ---
[facility] DELIVERED PT LIVES ALONE. USES [facility] FOR MOBILITY AND HOME 02 AT 2L VIA [facility]. PT HAS ASSISTANT SUPERINTENDENT 34 HRS/WK. +HCP ON FILE AND VERIFIED. PCP DR. DUDLEY DP: HOME WITH RESUMPTION OF ASSISTANT SUPERINTENDENT SERVICES IS THE GOAL. PT HAS OWN RIDE HOME. CM WILL CONTINUE TO FOLLOW FOR ANY CHANGE TO DC PLAN/NEEDS
--- NOTE | 2024-06-20 13:21 | P.PNIM_ITS ---
Subjective Subjective Date of Service: 06/20/24 Interval History: seen and examined this morning follow up for N/V/D; pneumonia no further vomiting for diarrhea; breathing improving Review of Systems Review of Systems: Yes all other systems are reviewed and are negative Constitutional Constitutional: Denies chills and Denies fever(s) Cardiovascular Cardiovascular: Denies chest pain and Denies dyspnea Respiratory Respiratory: Denies dyspnea Gastrointestinal Gastrointestinal: Denies abdominal pain Physical Exam 2 Vital Signs: Vital Signs: Last Vital Signs Temp 97.0 F 06/20/24 07:17 Pulse 99 06/20/24 12:13 Resp 18 06/20/24 12:13 BP 142/84 H 06/20/24 10:44 Pulse Ox 98 06/20/24 07:17 O2 Del Method Nasal Cannula 06/20/24 07:17 O2 Flow Rate 2 06/20/24 07:17 BMI result Body Mass Index 31.6 Const: General: cooperative, comfortable, no acute distress, alert and awake Nutritional Appearance: overweight Orientation/consciousness: patient oriented x3 Resp: Effort & Inspection: normal respiratory effort, able to speak in complete sentences, no respiratory distress and no use of accessory muscles Cardio: Rate: regular rate GI: Inspection: No distended Palpation (GI): Soft to palpation and nontender Neuro: General: patient oriented x3, No moves all extremities and No CN's II- XI intact bilaterally Objective Data Active Medications Acetaminophen (Acetaminophen 325 Mg Tablet) 650 mg PO Q6H PRN PRN Reason: Pain, Mild 1-3,fever,headache Last Admin: 06/20/24 09:32 Dose: 650 mg Documented By: ALLAN Albuterol/Ipratropium (Albuterol/Iprat 2.5/0.5mg 3 Ml Ampul.Neb) 3 ml INHALE Q4H PRN PRN Reason: Shortness of Breath/Wheezing Albuterol/Ipratropium (Albuterol/Iprat 2.5/0.5mg 3 Ml Ampul.Neb) 3 ml INHALE RQ4H WHILE AWAKE [facility] Last Admin: 06/20/24 12:13 Dose: 3 ml Documented By: SAMMY Aspirin (Aspirin Enteric Coated 81 Mg Tablet.) 81 mg PO DAILY [facility] Atorvastatin Calcium (Atorvastatin Calcium 80 Mg Tablet) 80 mg PO DAILY [facility] Azelastine HCl (Azelastine Hcl Nasal 137 Mcg/[place] 30 Ml) 2 spray NOSTRIL-B BID [facility] Benzonatate (Benzonatate 100 Mg Capsule) 100 mg PO TID PRN PRN Reason: Cough Calcium Carbonate (Calcium Carbonate 750 Mg Tab.Chew) 750 mg PO Q4H PRN PRN Reason: Heartburn Ceftriaxone Sodium (Ceftriaxone Sodium 1 Gm Vial) 1 gm IVPUSH Q24H [facility] Enoxaparin Sodium (Enoxaparin Sodium 30 Mg/0.3 Ml Syringe) 30 mg SUBCUT Q24H [facility] Last Admin: 06/19/24 21:38 Dose: 30 mg Documented By: MAY Fluticasone Propionate (Fluticasone Propionate Nasal 16 Gm [place]) 2 spray NOSTRIL-B DAILY [facility] Fluticasone/Umeclidinium/Vilanterol (Fluticasone/Umeclidinium/Vilanterol 200/62.5/ Blst.W.Dev) 1 puff INHALE RDAILY [facility] Glucose (Glucose Gel 15 Gm Gel..Gram.) 15 gm PO Q15M PRN; Protocol PRN Reason: per Hypoglycemia Standing Ord. Azithromycin 500 mg/ Sodium (Chloride) 250 mls @ 125 mls/hr IV Q24H [facility] Dextrose (D10) 250 mls @ 750 mls/hr IV Q15M PRN; Protocol PRN Reason: per Hypoglycemia Standing Ord. Insulin Human Lispro (Insulin Lispro 100 Unit/Ml 3 Ml Vial) 0 unit SUBCUT QIDACHS [facility]; Protocol Last Admin: 06/20/24 11:53 Dose: Not Given Documented By: ALLAN Non-Admin Reason: No Insulin Coverage Isosorbide Mononitrate (Isosorbide Mononitrate 30 Mg Tab.Er.24h) 30 mg PO DAILY [facility]; Protocol Last Admin: 06/20/24 10:44 Dose: 30 mg Documented By: ALLAN Lidocaine (Lidocaine 4 % Patch Adh..Patch) 1 patch TRANSDERMA DAILY [facility] Loratadine (Loratadine 10 Mg Tablet) 10 mg PO DAILY [facility] Magnesium Hydroxide (Milk Of Magnesia 30 Ml Oral.Susp) 30 ml PO DAILY PRN PRN Reason: Constipation Melatonin (Melatonin 3 Mg Tablet) 6 mg PO BEDTIME PRN PRN Reason: Insomnia Methocarbamol (Methocarbamol 500 Mg Tablet) 500 mg PO TID PRN PRN Reason: muscle spasm Methylprednisolone Sodium Succinate (Methylprednisolone Sod Succ 40 Mg/Ml Vial) 40 mg IVPUSH Q12H [facility] Last Admin: 06/20/24 07:50 Dose: 40 mg Documented By: ALLAN Metoprolol Tartrate (Metoprolol Tartrate 50 Mg Tablet) 50 mg PO BID [facility]; Protocol Last Admin: 06/20/24 10:39 Dose: 50 mg Documented By: ALLAN Omeprazole (Omeprazole 40 Mg Capsule.Dr) 40 mg PO DAILY@0630 [facility] Ondansetron HCl (Ondansetron Hcl 4 Mg/2 Ml Vial) 4 mg IVPUSH Q8H PRN PRN Reason: Nausea and Vomiting Sodium Chloride (0.9 % Sodium Chloride Flush 3 Ml Syringe) 3 ml IVFLUSH QSHIFT [facility] Last Admin: 06/20/24 07:51 Dose: 3 ml Documented By: ALLAN Vitamin D (Cholecalciferol (Vitamin D3) 25 Mcg Tablet) 50 mcg PO DAILY [facility] Labs 06/20/24 05:28 06/20/24 05:28 Labs: Laboratory Results - last 24 hr 06/19/24 06/19/24 06/19/24 15:06 15:34 16:45 MCV 90.1 MCH 30.1 MCHC 33.4 RDW 14.8 Plt Count 283 MPV 10.4 Immature Gran % (Auto) 0.6 H Neut % (Auto) 89.1 H Lymph % (Auto) 3.4 L [place] % (Auto) 5.4 Eos % (Auto) 1.3 Baso % (Auto) 0.2 Lymph # (Auto) 0.4 L [place] # (Auto) 0.6 Eos # (Auto) 0.1 Baso # (Auto) 0.0 Abs Immat Gran (auto) 0.06 H Absolute Neuts (auto) 9.3 H Absolute Nucleated RBC 0.000 Nucleated RBC % (auto) 0.0 Smear Tech's Comments Anion Gap 17 Estim Creat Clear Calc 37.7 Estimated GFR 41 POC Glucose Random Glucose 106 Lactic Acid 2.4 H* Lactic Acid F/U @ 2Hr Lactic Acid F/U @ 4Hr Calcium 9.7 Magnesium 1.9 Total Bilirubin 0.7 Direct Bilirubin 0.2 AST 22 ALT 17 Alkaline Phosphatase 102 Troponin I High Sens 4.0 C-Reactive Protein 1.50 H B-Natriuretic Peptide 149 H Total Protein 7.8 Albumin 4.5 Lipase 33 Procalcitonin 0.23 Urine Color Yellow Urine Appearance Clear Urine pH 6.0 Ur Specific [place] 1.010 Urine Protein Negative Urine Glucose (UA) Negative Urine Ketones Negative Urine Blood Negative Urine Nitrite Negative Ur Leukocyte Esterase Small (1+) H Urine RBC 0-2 Urine WBC 11-20 H Ur Squamous Epith Cells 0-2 Urine Bacteria None Seen Hyaline Casts 0-2 Influenza Type A (PCR) NEGATIVE Influenza Type B (PCR) NEGATIVE RSV RNA Qual (PCR) NEGATIVE SARS-CoV-2 RNA (RT-PCR) NEGATIVE 06/19/24 06/19/24 06/20/24 17:51 20:50 01:18 MCV MCH MCHC RDW Plt Count MPV Immature Gran % (Auto) Neut % (Auto) Lymph % (Auto) [place] % (Auto) Eos % (Auto) Baso % (Auto) Lymph # (Auto) [place] # (Auto) Eos # (Auto) Baso # (Auto) Abs Immat Gran (auto) Absolute Neuts (auto) Absolute Nucleated RBC Nucleated RBC % (auto) Smear Tech's Comments Anion Gap Estim Creat Clear Calc Estimated GFR POC Glucose 134 H Random Glucose Lactic Acid Lactic Acid F/U @ 2Hr 2.1 H* Lactic Acid F/U @ 4Hr 1.8 Calcium Magnesium Total Bilirubin Direct Bilirubin AST ALT Alkaline Phosphatase Troponin I High Sens C-Reactive Protein B-Natriuretic Peptide Total Protein Albumin Lipase Procalcitonin Urine Color Urine Appearance Urine pH Ur Specific [place] Urine Protein Urine Glucose (UA) Urine Ketones Urine Blood Urine Nitrite Ur Leukocyte Esterase Urine RBC Urine WBC Ur Squamous Epith Cells Urine Bacteria Hyaline Casts Influenza Type A (PCR) Influenza Type B (PCR) RSV RNA Qual (PCR) SARS-CoV-2 RNA (RT-PCR) 06/20/24 06/20/24 06/20/24 05:28 07:21 11:30 MCV 90.9 MCH 29.7 MCHC 32.6 RDW 15.1 Plt Count 236 MPV 11.0 Immature Gran % (Auto) 0.6 H Neut % (Auto) 91.0 H Lymph % (Auto) 5.5 L [place] % (Auto) 2.7 Eos % (Auto) 0.0 Baso % (Auto) 0.2 Lymph # (Auto) 0.4 L [place] # (Auto) 0.2 Eos # (Auto) 0.0 Baso # (Auto) 0.0 Abs Immat Gran (auto) 0.04 H Absolute Neuts (auto) 5.8 Absolute Nucleated RBC 0.000 Nucleated RBC % (auto) 0.0 Smear Tech's Comments VERIFIED Anion Gap 15 Estim Creat Clear Calc 38.8 Estimated GFR 42 POC Glucose 129 H 139 H Random Glucose 161 H Lactic Acid Lactic Acid F/U @ 2Hr Lactic Acid F/U @ 4Hr Calcium 8.8 D Magnesium Total Bilirubin Direct Bilirubin AST ALT Alkaline Phosphatase Troponin I High Sens C-Reactive Protein B-Natriuretic Peptide Total Protein Albumin Lipase Procalcitonin Urine Color Urine Appearance Urine pH Ur Specific [place] Urine Protein Urine Glucose (UA) Urine Ketones Urine Blood Urine Nitrite Ur Leukocyte Esterase Urine RBC Urine WBC Ur Squamous Epith Cells Urine Bacteria Hyaline Casts Influenza Type A (PCR) Influenza Type B (PCR) RSV RNA Qual (PCR) SARS-CoV-2 RNA (RT-PCR) Microbiology Microbiology Results: Microbiology 06/19/24 16:58 Urine Culture - Preliminary Urine clean catch - Clean Catch Midstream Culture too young to evaluate. Assessment and Plan (1) Nausea & vomiting: Status: Acute (2) Pneumonia: Status: Acute Plan This is a 78-year-old female with a past medical history significant for COPD on 2 L NC, type 2 diabetes (no meds), pneumonitis, GERD, IBS and obesity who presented to the ED with nausea, vomiting and diarrhea since 03:00 today. She also reported being diagnosed with COPD exacerbation 06/18 and was started on doxycycline and prednisone by her outpatient case manager. Chest x-ray here with bibasilar opacities due to volume loss and/or infection and/or small pleural effusions. Given recent fever and diagnosis of pneumonia most likely infectious. community-acquired pneumonia did not meet SIRS criteria, no evidence of sepsis COVID/flu/RSV negative continue IV azithromycin and ceftriaxone Blood cultures pending Legionella urine antigen, strep pneumo urine antigen pending Chronic respiratory failure secondary to combined COPD/asthma with acute exacerbation on baseline 2 L O2 - DuoNebs q.4h while awake - Solu-Medrol 40 mg b.i.d. Acute lactic acidosis due to breathing treatments, not due to sepsis Nausea, vomiting and diarrhea could be secondary to pneumonia, recent abx use, or recent exposure to GI illness. resolved - GI panel and C diff d/c since no further diarrhea Type 2 diabetes - triggered by steroids in the past, no current DM meds - monitor POC - sliding scale as needed - diabetic diet Obesity - BMI 30.9 - weight loss encouraged Full code VTE prophylaxis: Lovenox Requires ongoing admission for management of community-acquired pneumonia complicated by acute exacerbation of COPD/asthma requiring IV antibiotics and close monitoring. Quality Stroke Does the patient have a stroke diagnosis?: No VTE Prior VTE?: No VTE Risk Level:: Medical - moderate - high VTE Device Contraindication: Treatment Not Indicated VTE Drug Contraindication: N/A - Med Ordered
[2024-06-20] MEDS: Benzonatate 100 MG CAPSULE PO (15:01)
[2024-06-20 16:24] LABS: Glucose, Whole Blood 141 mg/dL (60-115)
[2024-06-20] MEDS: cefTRIAXone sodium 1 GM VIAL IVPUSH (20:32)
[2024-06-20] MEDS: Enoxaparin Sodium 30 MG/0.3 ML SYRINGE SUBCUT (20:32)
[2024-06-20] MEDS: methocarbamoL 500 MG TABLET PO (20:32)
[2024-06-20] MEDS: Azelastine HCl Nasal 137 MCG/Spray 30 ML 2 SPRAY NOSTRIL-B (20:34)
[2024-06-20 20:48] LABS: Glucose, Whole Blood 140 mg/dL (60-115)
[2024-06-20] MEDS: Azithromycin 500 MG in 0.9 % Sodium Chloride 250 ML 125 MG IV (20:50)
[2024-06-21] MEDS: Albuterol/Iprat 2.5/0.5MG 3 ML AMPUL.NEB INHALE ×2 (03:54→12:15)
[2024-06-21 03:55] VITALS: PULSE 81; RESP 16; O2SAT 96
[2024-06-21 04:00] VITALS: BP 136/65; PULSE 90; RESP 18; TEMP 36.1; O2SAT 97
[2024-06-21] MEDS: Omeprazole 40 MG CAPSULE.DR PO (04:16)
[2024-06-21] MEDS: Benzonatate 100 MG CAPSULE PO (04:16)
[2024-06-21 07:52] LABS: Glucose, Whole Blood 129 mg/dL (60-115)
[2024-06-21 08:00] VITALS: BP 132/60; PULSE 87; RESP 16; TEMP 36.1; O2SAT 97
[2024-06-21] MEDS: Cholecalciferol (Vitamin D3) 25 MCG TABLET 50 MCG PO (08:18)
[2024-06-21] MEDS: Aspirin Enteric Coated 81 MG TABLET.DR PO (08:18)
[2024-06-21] MEDS: Atorvastatin Calcium 80 MG TABLET PO (08:18)
[2024-06-21] MEDS: Loratadine 10 MG TABLET PO (08:18)
[2024-06-21] MEDS: methylPREDNISolone Sod Succ 40 MG/ML VIAL IVPUSH (08:18)
[2024-06-21] MEDS: Metoprolol Tartrate 50 MG TABLET PO (08:19)
[2024-06-21] MEDS: Isosorbide Mononitrate 30 MG TAB.ER.24H PO (08:19)
[2024-06-21] MEDS: 0.9 % Sodium Chloride Flush 3 ML SYRINGE IVFLUSH (08:19)
[2024-06-21] MEDS: Lidocaine 4 % Patch ADH..PATCH 1 PATCH TRANSDERMA (08:20)
[2024-06-21] MEDS: Azelastine HCl Nasal 137 MCG/Spray 30 ML 2 SPRAY NOSTRIL-B (08:46)
[2024-06-21] MEDS: Fluticasone Propionate Nasal 16 GM SPRAY 2 SPRAY NOSTRIL-B (09:11)
[2024-06-21] MEDS: Calcium Carbonate 750 MG TAB.CHEW PO (10:44)
[2024-06-21 11:10] LABS: Glucose, Whole Blood 120 mg/dL (60-115)
--- NOTE | 2024-06-21 11:24 | P.DS_ITS ---
DS: Providers Provider Date of Service: 06/21/24 Date of admission: 06/19/24 20:34 Date of discharge: 06/21/24 Primary care physician: Kathy Rizo MD Attending physician on discharge: Cory Baptiste Discharging clinician: Yeimi Jiménez DS: Diagnosis Discharge Diagnosis (1) Nausea & vomiting: Status: Acute (2) Pneumonia: Status: Acute DS: Summary Hospital Course Hospital Course: From H&P on the day of admission Patient is a 78-year-old female with a past medical history significant for COPD on 2 L NC, type 2 diabetes (no meds), pneu monia, UTI, pneumonitis, GERD, IBS and obesity who presented to the ED with nausea, vomiting and diarrhea since 03:00 today. She reports having at least 7 episodes of diarrhea without any blood in the stool strange odor or color. She reports that she was near her son-in-law recently who also had a GI illness. She also had a fever on and was seen by her forensic nurse who diagnosed her with pneumonia without an x-ray or swab and started her on doxycycline and a Medrol Dosepak. She reports she has taken 2 doses of the steroid. She has not been able to tolerate the doxycycline. Her cough is not productive but she reports chills and body aches. She denies any lower extremity edema, headache, nasal congestion or sore throat. She feels comfortable overall currently and is not having any wheezing at this time. community-acquired pneumonia did not meet SIRS criteria, no evidence of sepsis. COVID/flu/RSV negative. Treated with IV azithromycin and ceftriaxone, Blood cultures are negative to date. Gradually patient's respiratory symptoms improved, she is stable on her baseline supplemental oxygen. Legionella urine antigen, strep pneumo urine antigen pending at the time of discharge. will be discharged home to complete course of oral antibiotics Chronic respiratory failure secondary to combined COPD/asthma with acute exacerbation Treated with systemic steroids and breathing treatments. Has remained on baseline supplemental oxygen, respiratory symptoms improved as above. Acute lactic acidosis due to breathing treatments, not due to sepsis. resolved with IVF Nausea, vomiting and diarrhea possible viral illness. resolved. GI panel and C diff not collected since no further diarrhea urine culture with no growth Time Attestation Discharge Coordination Time (in mins): 40 Quality: Safe Use of Opioids Does Pt have an Active Cancer Diagnosis on the Problem List?: No Quality: Stroke Does the patient have a stroke diagnosis?: No Physical Exam Vital Signs: Vital Signs: Last Vital Signs Temp 97.0 F 06/21/24 08:00 Pulse 87 06/21/24 08:00 Resp 16 06/21/24 08:00 BP 132/60 06/21/24 08:00 Pulse Ox 97 06/21/24 08:00 O2 Del Method Nasal Cannula 06/21/24 08:00 O2 Flow Rate 2 06/21/24 08:00 BMI result Body Mass Index 31.6 Const: General: cooperative, comfortable, no acute distress, alert and awake Nutritional Appearance: overweight Orientation/consciousness: patient oriented x3 Resp: Effort & Inspection: normal respiratory effort, able to speak in complete sentences, no respiratory distress and no use of accessory muscles Cardio: Rate: regular rate GI: Inspection: No distended Palpation (GI): Soft to palpation and nontender Neuro: General: patient oriented x3, No moves all extremities and No CN's II- XI intact bilaterally Extrem: General: Yes no pedal edema DS: Data Data Completed and Pending Labs on day of discharge: Laboratory Results - last 24 hr 06/20/24 06/20/24 06/20/24 11:30 16:14 20:44 POC Glucose 139 H 141 H 140 H 06/21/24 06/21/24 07:44 11:00 POC Glucose 129 H 120 H Preliminary micro results at discharge 06/19/24 16:23 Blood Culture - Preliminary Blood - Venous No growth after 24 hours. 06/19/24 15:34 Blood Culture - Preliminary Blood - Venous No growth after 24 hours. Discharge Plan Discharge Anticipated Discharge Date/Time: 06/21/24 11:50 Patient Disposition: Home, Self-Care Discharge Diagnosis: pneumonia copd exacerbation Referrals: Kathy Christopher MD [Primary Care Provider] - 1 Week Discharge Medications: New cefuroxime axetil 500 mg tablet 500 mg PO Q12H 5 Days Qty: 10 0RF prednisone 10 mg tablet See Taper PO DIRECTED Qty: 30 0RF Taper: Prednisone 40 mg daily for 3 Days and 0 Hour 30 mg daily for 3 Days and 0 Hour 20 mg daily for 3 Days and 0 Hour 10 mg daily for 3 Days and 0 Hour Rx Instructions: see taper instructions Continued cholecalciferol (vitamin D3) 50 mcg (2,000 unit) capsule 50 mcg PO DAILY 30 Days Qty: 30 3RF azelastine 137 mcg (0.1 %) aerosol,spray 2 spray intranasal BID 30 Days Qty: 30 6RF Rx Instructions: administer into each nostril methocarbamol 500 mg tablet 500 mg PO TID PRN (Reason: muscle spasm) Qty: 60 0RF Rx Instructions: Discontinue use of Cyclobenzaprine No driving while taking this medication. Do no take with alcohol or other MANAGER MONITORING Depressants lidocaine 5 % adhesive patch,medicated 1 patch topical DAILY Qty: 15 0RF Rx Instructions: leave on most painful area for up to 12 hrs atorvastatin 80 mg tablet 80 mg PO DAILY albuterol sulfate 2.5 mg /3 mL (0.083 %) solution for nebulization 2.5 mg inhalation Q4H PRN (Reason: wheezing) nitroglycerin 0.4 mg tablet, sublingual 0.4 mg sublingual ONCE PRN (Reason: Chest Pain) dexlansoprazole 60 mg capsule,biphase delayed releas 60 mg PO DAILY cetirizine 10 mg tablet 10 mg PO DAILY aspirin 81 mg tablet,delayed release (DR/EC) 81 mg PO DAILY isosorbide mononitrate 30 mg tablet extended release 24 hr 30 mg PO DAILY fluticasone propionate 50 mcg/actuation spray,suspension 2 spray intranasal DAILY 30 Days Qty: 15.8 11RF melatonin 10 mg tablet 10 mg PO BEDTIME PRN (Reason: Sleep) (DME) Oxygen Home Use Kit See Rx Instructions .Route Rx Instructions: As directed (DME) nebulizers [facility] [place] See Rx Instructions .Route Rx Instructions: As directed metoprolol tartrate 50 mg tablet 50 mg PO BID metformin 500 mg tablet extended release 24 hr 500 mg PO DAILY albuterol sulfate 90 mcg/actuation HFA aerosol inhaler 2 puff PO Q4H PRN (Reason: for wheezing) Qty: 1 11RF doxycycline hyclate 100 mg capsule 100 mg PO BID 10 Days Qty: 20 0RF Trelegy Ellipta 200-62.5-25 mcg blister with device 1 inh inhalation DAILY 30 Days Qty: 60 12RF celecoxib 50 mg capsule 50 mg PO BID Qty: 30 0RF Rx Instructions: Take with food, do not take with any other nonsteroidal anti-inflammatory medications Discharge Orders: Discharge Order (Routine); Ordered 06/21/24 Ordered By: Yeimi Jiménez Activity on Discharge: As tolerated Stand Alone Forms: Patient Portal Discharge page Print Language: Indonesian Care Plan Goals: see below Health Concerns: pneumonia COPD exacerbation diarrhea resolved Plan of Treatment: Complete course of oral steroids as prescribed complete course of doxycycline as prescribed by pulmonology and complete course of ceftin call to schedule follow up appointment with pcp Assessment: see discharge summary
--- NOTE | 2024-06-21 12:11 | MHC.CM.PN ---
PT WILL DC HOME TODAY WITH RESUMPTION OF [facility] [facility] VIA PRIVATE TRANSPORT
[2024-06-21 12:16] VITALS: PULSE 90; RESP 16; O2SAT 96
[2024-06-25 15:53] LABS: Strep Pneumo Ag urine Not Detected (Not Detected)
[2024-06-26 03:14] LABS: Legionella Ag Urine Not Detected (Not Detected)
== END 2024-06-21 13:48 | disposition home or self-care (01) | DRG 190 ==
LOC: HO.ED 19:01 → HO.EDOVER 20:40 → HO.S3 23:52
PROVIDERS: Physician Assistant; Admitting Provider Student in an Organized Health Care Education/Training Program; Emergency Provider Emergency Medicine; PCP Internal Medicine; Visit Provider Physician Assistant Medical
DX: J44.0 Chronic obstructive pulmonary disease with (acute) lower respiratory infection (principal); J18.9 Pneumonia, unspecified organism; E87.21 Acute metabolic acidosis; J91.8 Pleural effusion in other conditions classified elsewhere; J45.901 Unspecified asthma with (acute) exacerbation; J96.10 Chronic respiratory failure, unspecified whether with hypoxia or hypercapnia; J44.1 Chronic obstructive pulmonary disease with (acute) exacerbation; E66.9 Obesity, unspecified; Z68.30 Body mass index [BMI] 30.0-30.9, adult; Z99.81 Dependence on supplemental oxygen; Z71.3 Dietary counseling and surveillance; E11.9 Type 2 diabetes mellitus without complications; Z20.822 Contact with and (suspected) exposure to COVID-19; Z87.891 Personal history of nicotine dependence; Z79.51 Long term (current) use of inhaled steroids; Z79.82 Long term (current) use of aspirin; Z79.84 Long term (current) use of oral hypoglycemic drugs; Z79.899 Other long term (current) drug therapy
CPT/HCPCS: 0241U; 36415; 71045; 80048; 80076; 81001; 82947; 83605; 83690; 83735; 83880; 84145; 84484; 85025; 86140; 87040; 87086; 87449; 87899; 93005; 94640; 99285; J0456; J0696; J1650; J2405; J2919

== ENCOUNTER → 2024-06-19 14:21 | Outpatient (BNV) | payer OTHER, SELFPAY | PROVIDERS: Admitting Provider Student in an Organized Health Care Education/Training Program; Emergency Provider Emergency Medicine; PCP Internal Medicine; Visit Provider Internal Medicine Cardiovascular Disease | DX: R00.0 Tachycardia, unspecified (principal) | CPT/HCPCS: 93010 ==

== ENCOUNTER → 2024-06-19 14:22 | Outpatient (BNV) | payer OTHER, SELFPAY | PROVIDERS: Emergency Provider Emergency Medicine; PCP Internal Medicine; Visit Provider Radiology Diagnostic Radiology | DX: R91.8 Other nonspecific abnormal finding of lung field (principal) | CPT/HCPCS: 71045 ==

== ENCOUNTER → 2024-06-19 20:34 | Outpatient (BNV) | payer OTHER, SELFPAY | PROVIDERS: Admitting Provider Student in an Organized Health Care Education/Training Program; Emergency Provider Emergency Medicine; PCP Internal Medicine; Visit Provider Physician Assistant | DX: J18.9 Pneumonia, unspecified organism (principal); J96.10 Chronic respiratory failure, unspecified whether with hypoxia or hypercapnia; J44.1 Chronic obstructive pulmonary disease with (acute) exacerbation; A41.9 Sepsis, unspecified organism; R11.2 Nausea with vomiting, unspecified; R19.7 Diarrhea, unspecified; E66.811 Obesity, class 1 | CPT/HCPCS: 99223 ==

== ENCOUNTER 2024-07-11 09:01 | Outpatient (AMB) | payer OTHER, SELFPAY ==
[2024-07-11 10:36] VITALS: BP 122/72; PULSE 79; RESP 18; TEMP 36.6; O2SAT 95; BMI 31.9
--- NOTE | 2024-07-11 10:36 | MHC.OFFWIV ---
Intake Vital Signs 07/11/24 10:36 Height 5 ft 4 in Weight 186 lb BMI 31.9 BP 122/72 Blood Pressure Location Lt brachial Position Sitting Respiration 18 Pulse 79 Pulse Source Pulse Oximeter Temp 97.8 F Temp Source Oral Pulse Oximetry (%) 95 Oxygen Delivery Method Room Air Intake Visit Reasons: EP-UTI Intake Note: Pt is here today c/o frequent urination Patient Tobacco Use Status: Former Tobacco user Allergies amoxicillin [Augmentin] Allergy (Mild, Verified 06/19/24 14:21) Rash clavulanic acid [From Augmentin] Allergy (Mild, Verified 06/19/24 14:21) RASH HPI HPI Comments History of Present Illness Details 78 y/o female patient who presents to the walk in clinic with c/o Urinary frequency for few days now. Denies fevers, chills, nausea or vomiting. Denies vaginal symptoms. [facility] Medical History Chronic respiratory failure Asthma-COPD overlap syndrome Incontinence in female History of adenomatous polyp of colon Pneumonitis Bronchopneumonia Hypogammaglobulinemia Chronic rhinitis Dizziness Headache Hyperlipidemia HTN (hypertension) Diabetes COPD (chronic obstructive pulmonary disease) Surgical History S/P right coronary artery (RCA) stent placement H/O colonoscopy History of foot surgery History of toe surgery History of bunionectomy Family History Mother No problems noted. Father No problems noted. 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 services: Yes (grand daughter pcb design engineer) Alcohol intake: never Patient Tobacco Use Status: Former Tobacco user Tobacco use type: Cigarette Advance Directives Date on File: 10/03/23 service: No Current occupational status: retired Sexual orientation: Straight/Heterosexual Gender identity: Female Physical Exam Vital Signs: Last Vital Signs Temp 97.8 F 07/11/24 10:36 Pulse 79 07/11/24 10:36 Resp 18 07/11/24 10:36 BP 122/72 07/11/24 10:36 Pulse Ox 95 07/11/24 10:36 Oxygen Delivery Method Room Air 07/11/24 10:36 BMI result Body Mass Index 31.9 Results AMB Urinalysis, Automated UA Leukoctes 125 Haritha/uL Last Edit by MARLA Meza on 07/11/24 10:56 UA Nitrite Negative Last Edit by Jody Brown [facility] on 07/11/24 10:56 UA Urobilinogen 0.2 mg/dL Last Edit by Jody Brown [facility] on 07/11/24 10:56 UA Protein 0 mg/dL Last Edit by Jody Brown [facility] on 07/11/24 10:56 UA pH 6.0 Last Edit by Jody Brown [facility] on 07/11/24 10:56 UA Blood 0 Jefe/uL Last Edit by Jody Brown [facility] on 07/11/24 10:56 UA Specific Benedict 1.015 Last Edit by Jody Brown [facility] on 07/11/24 10:56 UA Ketone Negative Last Edit by Jody Brown [facility] on 07/11/24 10:56 UA Bilirubin 0 mg/dL Last Edit by Jody Brown [facility] on 07/11/24 10:56 UA Glucose 0 mg/dL Last Edit by Jody Brown [facility] on 07/11/24 10:56 Results Reviewed Results Reviewed: Laboratory Last Values Urine pH (Auto) 6.0 07/11/24 10:55 Specific Benedict (Auto) 1.015 07/11/24 10:55 Urine Protein (Auto) 0 mg/dL 07/11/24 10:55 Glucose (UA)(Auto) 0 mg/dL 07/11/24 10:55 Urine Ketones (Auto) Negative 07/11/24 10:55 Urine Blood (Auto) 0 Jefe/uL 07/11/24 10:55 Urine Nitrite (Auto) Negative 07/11/24 10:55 Urine Bilirubin (Auto) 0 mg/dL 07/11/24 10:55 Urine Urobilinogen (Auto) 0.2 mg/dL 07/11/24 10:55 Leukocyte Esterase (Auto) 125 Haritha/uL 07/11/24 10:55 Assessment & Plan Assessment & Plan (1) Urinary frequency: Code(s): R35.0 - Frequency of micturition Plan: Ordered U/A and culture Ordered Macrobid Hydrate well with fluids Orders: Orders AMB Urinalysis Automated Today Z13.9 - Encounter for screening, unspecified UA CC w/rflx Micro + Cult Today R35.0 - Frequency of micturition Medications: New nitrofurantoin monohyd/m-cryst 100 mg (Macrobid) must administer with a meal/food 100 mg PO Q12H 14 caps 0RF 7 days R35.0 - Frequency of micturition Coding Level of Care Code Est Pt Level 3 (30308) Diagnoses Urinary frequency R35.0 Time Spent (min) 15
== END 2024-07-11 11:18 | disposition home or self-care (01) ==
PROVIDERS: PCP Internal Medicine; Visit Provider Nurse Practitioner Family
DX: Z13.9 Encounter for screening, unspecified (principal); R35.0 Frequency of micturition

== ENCOUNTER 2024-07-11 09:01 | Outpatient (REF) | payer OTHER, SELFPAY ==
[2024-07-11 13:54] LABS: Appearance Urine Clear; Color Urine Yellow; Glucose Urine UA Negative (Negative); Leukocyte Esterase Urine Large (3+) (Negative); Nitrite Urine Negative (Negative); PH 6.5 (5.0-9.0); Specific Gravity - Urine 1.015 (1.005-1.025); UMIC TRIGGER UACC YES; Urine Blood Negative (Negative); Urine Ketones Negative (Negative); Urine Protein Negative (Neg-Trace)
[2024-07-11 14:04] LABS: Bacteria Urine None Seen (None Seen); Hyaline Casts Urine 0-2 /LPF (0-2); RBC Urine 0-2 /HPF (0-2); UACC Culture Trigger YES; WBC Urine >50 /HPF (0-5)
== END 2024-07-11 09:02 | disposition home or self-care (01) ==
LOC: HO.LAB 09:01
PROVIDERS: PCP Internal Medicine; Visit Provider Nurse Practitioner Family
DX: R35.0 Frequency of micturition (principal)
CPT/HCPCS: 81001; 81003; 87086; 99212

== ENCOUNTER 2024-07-23 09:15 | Outpatient (AMB) | payer OTHER, SELFPAY ==
--- OUTSIDE RECORDS SUMMARY | 2024-07-23 09:43 | XMS_ITS | Data Portability ---
Author Organization [employer] [employer] Address [address] [place] [id number] Care Team Providers Care Supervising Law Enforcement Analyst Name Role Phone [facility] Referring Provider [facility] OTHER Assessment Encounter Date Assessment Date Assessment LastModified by Organization Details LastModified Time 04/20/2024 04/20/2024 I provided real -time medical direction via phone for this encounter and was available for additional phone-based assistance as needed. I have reviewed and agree with the Assessment and Plan as documented by the Print Line Inspector. Patient given the opportunity to ask questions. Our service contacted for an assessment of: Decreased urine output As per above, patient with stage IIIB kidney disease on Lasix. She does not take her Lasix as prescribed because she becomes incontinent and does not want to be caught in a situation where she will not be able to find a bathroom. She was seen by her nurse practitioner in her home yesterday and was instructed to take her Lasix and had a robust urine output. She is eating and drinking normally. She did not take her Lasix today. She was dry overnight. She denies any urinary symptoms. She denies specifically frequency, urgency, burning. The only time she has urgency is in the context of taking Lasix. Review of her chart reveals that she normally has a heart rate between 100 and 110. She states this is normal for her. She is on metoprolol to for rate control. Per wood grainer on the scene, vital signs are stable and the patient is afebrile. No acute distress. The patient does appear well hydrated. Patient unable to produce urine sample. Impression: Decreased urine output in the context of chronic kidney disease and not taking diuretic Plan: Discussed that urine output is decreased with her chronic kidney disease and that the Lasix was an important part of her medication regimen. She fortunately does not have any evidence of volume overload per wood grainer on the scene. She has no evidence of edema or congestion in her lungs. She does not necessarily monitor her weights. Instructed to take Lasix particularly on days when she would not be going out of the house like today and on weekends. And follow-up with her nurse practitioner on Monday regarding a possible variation in her schedule. She is already using depends but may benefit from a Perwick overnight to control the incontinence. Allergies: Reviewed PCP f/u: We discussed the diagnostic uncertainty of home visits and the risk associated with this. In this case, the patient and I felt this to be an acceptable and reasonable amount of risk given the benefit of avoiding an ED visit. We discussed the need to seek care urgently/emerge ntly in the setting of any new or worsening serious symptoms, particularly fever chills [email or web address] Not available 04/20/2024 15:54:18 Plan of Treatment Reminders Order Date Submit Date Provider Last Modified By Organization Details Last Modified Time Details Appointments None recorded. Lab culture, urine 2022 023 OLATHE [facility], [address] [place], [address], 3 07:41:06 rapid SARS CoV 2 Ag, QL IA, respiratory specimen 2022 023 [email or web address] Main - [facility], [address] [place] [address], [id number], 3 20:04:39 rapid flu (A+B) 2022 023 [email or web address] [facility], [address] [place] [address], [id number], 3 20:04:40 rapid strep group A, throat 2022 023 [email or web address] [facility], [address] [place] [address], [id number], 3 20:04:38 Referral None recorded. Procedures None recorded. Surgeries None recorded. Imaging None recorded. Medication Orders Levaquin 500 mg tablet [email or web address] [place] [address], [address] [place] [address], [id number], 13:34:52 Patient TargetsNo targets recorded. Patient InstructionsNo instructions recorded. Reason for Referral None Reported. Results Created Date Observation Date Name Description Value Unit Range Abnormal Flag Note LastModifiedBy Organization Detail LastModifiedTime 09/28/1909/27/2022 URINE CULTU RE specimen description URINE Not Available [facility] [address] [place], [id number], 09/29/2022 07:41:06 09/28/19 23 09/27/2022 URINE CULTU RE special requests NONE Not Available [facility] [address] [place], [id number], 09/29/2022 07:41:06 09/28/1909/29/2022 URINE CULTU RE culture NO GROWTH Not Available [facility] [address] [place], [id number], 09/29/2022 07:41:06 09/28/19 23 09/29/2022 URINE CULTU RE report status FINAL 2022 Not Available [facility] [address] [place], [id number], 09/29/2022 07:41:06 06/17/20 23 06/17/2023 rapid strep group A, throa t Strep negati ve Not Available Main - [facility] [address] [place] [address], [id number], 06/17/2023 20:04:20 06/17/20 23 06/17/2023 rapid flu (A+B) Flu negati ve Not Available Main - [facility] [address] [place] [address], [id number], 06/17/2023 20:04:18 06/17/20 23 06/17/2023 rapid SARS CoV 2 Ag, QL IA, respi rator y speci men rapid SARS CoV 2 Ag, QL IA, respiratory specimen negati ve Not Available Main - [facility] [address] [place] [address], [id number], 06/17/2023 20:04:15 Result Notes None recorded. Medical Equipment None Reported. Allergies Allergen ID Allergen Name Allergen Category Reaction Reaction Severity Criticality Documentation Date Start Date Code Code System Note Provider Name and Address Organization Details Recorded Time 7839 Product containin g penicilli n and antibioti c (product) medicatio n Not available Not available Not available 04/16/2024 47549 05 SNOMED Not Available [facility] - production 4 03:40:09 Medications Name Sig Start Date Stop Date Status Note LastModified by Organization Details LastModified Time poise*pads active Not Available Not Av ailable Not Available celecoxib 200 mg capsule TAKE 1 CAPSULE BY MOUTH TWICE A DAY active Not Available Not Available No t Available atorvastatin 80 mg tablet TAKE 1 TABLET BY MOUTH EVERY DAY active Not Available Not Available No t Available prednisone 10 mg tablet TAKE 2 TABS BY MOUTH DAILY X 14 DAYS, THEN 1 TAB DAILY X 14 DAYS active Not Available Not Available No t Available nitrofuranto in macrocrystal 50 mg capsule TAKE 1 CAPSULE BY MOUTH DAILY FOR 180 DAYS. active Not Available Not Available No t Available albuterol sulfate 2.5 mg/3 mL (0.083 %) solution for nebulization TAKE 1 VIAL BY NEBULIZATIO N EVERY 4 HOURS NEEDED FOR WHEEZING active Not Available Not Available No t Available cetirizine 10 mg tablet TAKE 1 TABLET BY MOUTH EVERY DAY active Not Available Not Available No t Available azithromycin 250 mg tablet USE DIRECTED active Not Available Not Available No t Available fluconazole 150 mg tablet active Not Available Not Available Not Available metoprolol succinate ER 50 mg tablet,exten ded release 24 hr TAKE 1 TABLET BY MOUTH EVERY DAY active Not Available Not Available No t Available valacyclovir 1 gram tablet TAKE 2 TABLETS BY MOUTH 2 TIMES DAILY. (SEPARATE DOSES BY ~12 HOURS). USE FOR 1 DAY WITH EACH FLARE active Not Available Not Available N ot Available FreeStyle Lancets 28 gauge USE TO TEST BLOOD SUGAR ONCE DAILY NEEDED active Not Available Not Available No t Available phenazopyrid ine 200 mg tablet TAKE 1 TABLET BY MOUTH 3 TIMES A DAY FOR 2 DAYS active Not Available Not Available N ot Available prednisone 20 mg tablet TAKE 2 TABLETS BY MOUTH EVERY DAY FOR 5 DAYS active Not Available Not Available No t Available isosorbide mononitrate ER 30 mg tablet,exten ded release 24 hr TAKE 1 TABLET BY MOUTH EVERY DAY IN THE MORNING active Not Available Not Available No t Available amlodipine 5 mg tablet TAKE 1 TABLET BY MOUTH EVERY DAY FOR 90 DAYS active Not Available Not Available No t Available sulfamethoxa zole 800 mg-trimethop rim 160 mg tablet TAKE 1 TABLET BY MOUTH TWICE A DAY FOR 7 DAYS active Not Available Not Available No t Available doxycycline monohydrate 100 mg tablet TAKE 1 TABLET BY MOUTH TWICE A DAY FOR 2 WEEKS active Not Available Not Available No t Available lorazepam 0.5 mg tablet TAKE ONE OR TWO TABS BY MOUTH PRIOR TO PROCEDURE (SHOULDER INJECTIONS) active Not Available Not Available Not Available amitriptylin e 10 mg tablet TAKE 1 TABLET BY MOUTH EVERYDAY AT BEDTIME active Not Available Not Available No t Available meclizine 25 mg tablet TAKE 1 TABLET BY MOUTH TWICE A DAY NEEDED FOR DIZZINESS active Not Available Not Available No t Available phenazopyrid ine 100 mg tablet TAKE 1 TABLET BY MOUTH 3 TIMES DAILY NEEDED FOR PAIN FOR UP TO 5 DAYS. active Not Available Not Available No t Available oseltamivir 75 mg capsule TAKE 1 CAPSILE ORALLY 2 TIMES A DAY FOR 5 DAYS active Not Available Not Available N ot Available lisinopril 10 mg tablet TAKE 1 TABLET BY MOUTH EVERY DAY FOR 90 DAYS active Not Available Not Available No t Available metoprolol tartrate 50 mg tablet TAKE 1 AND 1/2 TABLETS BY MOUTH DAILY active Not Available Not Available No t Available docusate sodium 100 mg capsule TAKE 1 CAPSULE BY MOUTH TWICE A DAY FOR 10 DAYS active Not Available Not Available No t Available montelukast 10 mg tablet TAKE 1 TABLET BY MOUTH EVERYDAY AT BEDTIME active Not Available Not Available No t Available furosemide 20 mg tablet TAKE 1 TABLET BY MOUTH EVERY DAY NEEDED FOR EDEMA active Not Available Not Available No t Available Levaquin 500 mg tablet Take 1 tablet every 24 hours by oral route for 5 days. 2022 active Not Available Not Available Not Avai lable azelastine 137 mcg (0.1 %) nasal spray USE 2 SPRAYS INTRANASALL Y 2 TIMES A DAY FOR 30 DAYS ADMINISTER INTO EACH NOSTRIL active Not Available Not Available No t Available methylpredni solone 4 mg tablets in a dose pack USE DIRECTED active Not Available Not Available No t Available albuterol sulfate HFA 90 mcg/actuatio n aerosol inhaler INHALE 2 PUFFS BY MOUTH EVERY 4 TO 6 HOURS NEEDED FOR WHEEZE/SHOR TNESS OF BREATH active Not Available Not Available No t Available fluticasone propionate 50 mcg/actuatio n nasal spray,suspen pauly USE 2 SPRAYS INTRANASALL Y DAILY FOR 30 DAYS active Not Available Not Available No t Available Laxative (bisacodyl) 5 mg tablet,delay ed release TAKE ONE EVERY NIGHT. active Not Available Not Available No t Available nitrofuranto in monohydrate/ macrocrystal s 100 mg capsule TAKE 1 CAPSULE BY MOUTH TWICE A DAY FOR 5 DAYS active Not Available Not Available No t Available ramelteon 8 mg tablet TAKE 1 TABLET BY MOUTH EVERYDAY AT BEDTIME active Not Available Not Available No t Available FreeStyle Lite Meter kit USE TO TEST BLOOD SUGAR ONCE DAILY NEEDED. active Not Available Not Available N ot Available FreeStyle Lite Strips USE TO TEST BLOOD SUGAR ONCE DAILY NEEDED. active Not Available Not Available N ot Available trospium ER 60 mg capsule,exte nded release 24 hr TAKE 1 CAPSULE BY MOUTH EVERY DAY active Not Available Not Available No t Available cholecalcife rol (vitamin D3) 50 mcg (2,000 unit) capsule TAKE 1 CAPSULE BY MOUTH EVERY DAY active Not Available Not Available No t Available dexlansopraz ole 60 mg capsule,biph ase delayed release TAKE 1 CAPSULE BY MOUTH EVERY DAY active Not Available Not Available No t Available Trulance 3 mg tablet TAKE 1 TABLET BY MOUTH EVERY DAY active Not Available Not Available No t Available Trelegy Ellipta 100 mcg-62.5 mcg-25 mcg powder for inhalation INHALE 1 PUFF ORALLY DAILY active Not Available Not Available No t Available Trelegy Ellipta 200 mcg-62.5 mcg-25 mcg powder for inhalation TAKE 1 PUFF BY MOUTH EVERY DAY active Not Available Not Available No t Available Paxlovid 300 mg (150 mg x 2)-100 mg tablets in a dose pack TAKE TWO 150 MG TABLETS OF NIRMATRELVI R WITH ONE 100 MG TABLET OF RITONAVIR TWICE DAILY FOR 5 DAYS active Not Available Not Available N ot Available Vitals Date Recorded Respiratory rate Body height Body weight Heart rate Oxygen saturation Oxygen saturation in Arterial blood by Pulse oximetry Body temperature Systolic blood pressure Diastolic blood pressure Provider Name and Address Organization Details Last Updated DateTime 3 16 /min 162.56 cm 49509.5 6 g 90 /min 96 % 96 % 99.5 [degF] 143 mm[Hg] 68 mm[Hg] Not Available [facility] - production 3 19:48:26 Date Recorded Body weight Respiratory rate Heart rate Body height Body temperature Oxygen saturation Oxygen saturation in Arterial blood by Pulse oximetry Systolic blood pressure Diastolic blood pressure Provider Name and Address Organization Details Last Updated DateTime 4 61418.5 6 g 18 /min 111 /min 162.56 cm 98.2 [degF] 94 % 94 % 117 mm[Hg] 66 mm[Hg] Not Available [facility] - production 4 14:23:22 Date Recorded Oxygen saturation Oxygen saturation in Arterial blood by Pulse oximetry Body temperature Heart rate Body weight Respiratory rate Systolic blood pressure Diastolic blood pressure Provider Name and Address Organization Details Last Updated DateTime 3 98 % 98 % 95.7 [degF] 73 /min 53820.5 6 g 16 /min 125 mm[Hg] 67 mm[Hg] Not Available [facility] production 3 13:30:35 Social History None recorded. Functional Status None recorded. Mental Status None recorded. Family History Nothing Reported. Medical History No medical history recorded. Gynecological HistoryNo gynecological history recorded. Obstetrics History GPAL:G 0 P 0 0 0 0 Past Encounters Encounter ID Performer Location Encounter Start Date Encounter Closed Date Diagnosis/Indication Diagnosis SNOMED-CT Code Diagnosis ICD10 Code Diagnosis Note [id number] Praveen Valdovinos MD [facility] - [facility] [address] [place] [id number] 09/27/2022 13:30:25 09/29/2022 10:29:50 Acute urinary tract infection 807719532 N39.0 [id number] Petra Elmore MD Main - [facility] [address] [place] [phone] 06/17/2023 19:48:24 06/20/2023 12:24:39 Upper respiratory infection 29834909 J06.9 Evaluation in the field was performed by my wood grainer colleague, as noted above, I provided real-time direction and supervisio n for this visit. 77yo F PMHx COPD p/w 1 day sore throat, cough, malaise. VS notable for T 99.5F sat 96% RA exam notable for pharyngeal erythema w/o exdate, lungs clear. Rapid COVID, flu, and Strep negative. No e/o COPDe, low suspicion for bacterial PNA. Suspect other viral URI, rec symptomati c mgmt. We discussed the diagnostic uncertaint y of home visits and the risk associated with this. In this case, the patient and I felt this to be an acceptable and reasonable amount of risk given the benefit of avoiding an ED visit. We discussed the need to seek care urgently/e mergently in the setting of any new or worsening serious symptoms, shortness of breath, cough, chest pain, fever. [id number] Jackie Ardon MD Main - [facility] [address] [place] [id number] 04/20/2024 14:23:19 04/20/2024 19:15:29 Decreased urine output 742538896 R34 Chronic ki dney disease stage 3 254567872 N18.30 Tachycardia 5679496 R00. 0 Health Concerns Section Related Observation LastModified by Organization Detai ls LastModified Time None Recorded Concern Status LastModified by Organization Details LastModified Time None Recorded Advance Directives Directive None Recorded Payers Encounter Date Sequence Insurance Name Policy Number Policy Wagner Covered Member ID Wagner Member ID Guarantor Name 09/27/2022 1 [facility] - DOS PRIOR TO 2022 - DUAL ELIGIBLE (MEDICARE REPLACEMENT/ADV ANTAGE - HMO) Shea Pares [id number] Shea J Pares 06/17/2023 1 [facility] - DOS ON OR AFTER 2022 - DUAL ELIGIBLE - [employer] AND ONE CARE (MEDICARE REPLACEMENT/ADV ANTAGE - HMO) Shea Pares [id number] Shea J Pares 04/20/2024 1 [facility] - DOS ON OR AFTER 2022 - DUAL ELIGIBLE - [employer] AND ONE CARE (MEDICARE REPLACEMENT/ADV ANTAGE - HMO) Shea Pares [id number] Shea J Pares Notes Date Note Type Note Provider Name and Address Organization Details Recorded Time 023 text/ht ml [facility] Nursing Assessment: Reason For Request: UTI related symptoms. Smell, frequency has reduced. Pt is unable to provide further details. Symptoms going on for 3 days. Patient Reports: Inability to fully empty bladder Denies: Painful urination Frequent and increased urination with flank pain Painful urination with or without fever Chief Complaints: UTI/Pyelonephritis PMH: COPD/Asthma, Diabetes Comments: Verified identity with Member c/o 3 days , went to the ER and says she was fine. Member feels she has one . Member denies F/c/n/v/d Praveen Valdovinos MD [address] [facility],[address], [place], [phone], [employer] 09/27/2022 13:35:12 023 text/ht ml HPI: Member with c/o waking up in the middle of the night with dry throat. States she woke up with morning with a sore throat and coughed up a small amount of blood with mucous. Member with very hoarse voice. Request for member to be seen to check for strep ................................... ................................... ................................... ................................... . [facility] Nurse Triage Notes (Elvira Huggins): Comments: No further information needed to process visit. ................................... ................................... ................................... ................................... . Print Line Inspector Note From Max Clemens: Pt reports dry cough, sinus pressure, LEGER, and mild SOB since last night. Pt denies CP, f/n/v/d. Pt using mucinex and tylenol with some relief. Pt is alert, NAD. VSS. Temp 99.5. Non focal neuro exam. Normal gait. Throat is red, no blisters. Sinus tenderness. Lungs CTA. Benign ABD exam. No LE edema. Rapid covid, flu and strep negative. Pt educated on supportive care measures such as tea with honey, steam, throat lozenges/spray, etc. Pt instructed to call back for fever, productive cough, COPD exacerbation sx and to seek emergent medical care for new or worsening sx, which are reviewed with her. ................................... ................................... ................................... ................................... . Disposition: Fulfilled Petra Elmore MD [address] [facility],[address], [place], [phone], [employer] 06/17/2023 20:04:49 024 text/ht ml HPI: mbr with multiple complaints, states experienced SOB last night where she had decided to take a diuretic, denies any Urine output at this time questioning retention , but does mention changing briefs multiple times over night, denies any Abdominal pain pressure or discomfort, no LE edema CP/N/V. per mbr B/P 153/78 HR 111. mbr requesting [facility] for evaluation.Protocol Used: Urinary SymptomsProtocol-Based Disposition: Consider Bernadette, ROD PILER, MD/PATIENT SCHEDULER triage, PCP, or ED /Urgent Care Visit nowPositive Triage Question:* [1] Decreased urination and [2] drinking very little AND [2] dehydration suspected (e.g., dark urine, no urine > 12 hours, very dry mouth, very lightheaded)Negative Triage Question:* Shock suspected (e.g., cold/pale/clammy skin, too weak to stand, low BP, rapid pulse) ................................... ................................... ................................... ................................... . [facility] Nurse Triage Notes (Jose Valdivia): Chief Complaints: Breathing problems, CHF, Urinary symptoms PMH: COPD/Asthma, Congestive Heart Failure, Coronary Artery Disease Comments: Reviewed HPI SEGMD: Visit closed by [facility] end of shift before medic note transferred into [employer], so I entered it below: SummarySmartcare visit for female pt. Pt presents concerned about some decreased urine output. Pt states she normally wears depends underwear and noted that it wasn't wet overnight and hasn't urinated in the first 2 hours of her day today. Pt states that she was seen by her PCP yesterday and told to take her furosemide which she did and urinated many times. Pt doesn't take furosemide every day and has not taken it today. Pt endorses some mild SOB as well with history of CHF, COPD, and asthma. V/S taken as listed with tachycardia noted and pt stating this was present yesterday in visit with PATIENT SCHEDULER as well. Pt afebrile. Lung sounds clear bilaterally. Pt concerned about possible cloudy urine as well. Pt was unable to provide urine specimen for testing. Consulted with [facility] [place] Casas who advised continuing to monitor symptoms. Reviewed red flags for ED. Pt education provided.Services ProvidedPatient EducationDispositionFulfilledWas patient sent to ED?[facility] consulted on the case?Yes - Solange Casas MD [address] [facility],[address], [place], [phone], [place] [employer] 04/23/2024 15:04:20 OBGyn Episode No OBEpisode recorded.
--- OUTSIDE RECORDS SUMMARY | 2024-07-23 09:43 | XMS_ITS | Encounter Summary ---
Author Organization [email or web address] Address [address] [place] [address] Care Team Providers Care Bread Panner Name Role Phone Kathy Perez MD Primary Care Prov ider Encounter Details Date Type Department Care Team (Latest Contact Info) Description 07/22/2024 2:45 PM EST - 07/22/2024 11:59 PM [facility] Hospital Encounter [facility] JO Rivera [address] [place] [address] Pneumonia of both lower lobes due to infectious organism Discharge Disposition: Home or Self Care Social History Tobacco Use Types Packs/Day Years Used Date Smoking Tobacco: Former Cigarettes 2 30.8 0 1958 - 07/17/1989 Smokeless Tobacco: Never Alcohol Use Standard Drinks/Week Comments No 0 (1 standard drink = 0.6 oz pur e alcohol) Sex and Gender Information Value Date Recorded Sex Assigned at Not on file Gender Identity Not on file Sexual Orientation Not on file Job Start Date Occupation Industry Not on file Not on file Not on file documented as of this encounter Medications at Time of Discharge Medication Sig Dispensed Refills Start Date End Date albuterol 2.5 mg /3 mL (0.083 %) nebulizer solution TAKE 1 VIAL BY NEBULIZATION EVERY 4 HOURS NEEDED FOR WHEEZING 75 mL 1 07/16/2024 albuterol HFA (PROAIR HFA ; PROVENTIL HFA ; VENTOLIN HFA) 90 mcg/actuation inhaler Inhale 2 puffs by mouth every 4 (four) hours if needed (Cough, Wheezing or Shortness of Breath). 10/10/2022 ASPIRIN ORAL Take 81 mg by mouth 1 (one) time each day. atorvastatin (LIPITOR) 80 mg tablet Take 1 tablet (80 mg total) by mouth 1 (one) time each day. 12/04/2023 azelastine (ASTELIN) 137 mcg (0.1 %) nasal spray Administer 2 sprays into each nostril 2 (two) times a day. Use in each nostril as directed cetirizine (ZyrTEC) 10 mg tablet TAKE 1 TABLET BY MOUTH EVERY DAY 90 tablet 1 04/24/2024 cholecalciferol (VITAMIN D-3) 50 mcg (2,000 unit) capsule Take 1 capsule (2,000 Units total) by mouth 1 (one) time each day. 02/18/2022 dexlansoprazole (DEXILANT) [address] capsule TAKE 1 CAPSULE BY MOUTH EVERY DAY 90 capsule 3 07/17/2024 diclofenac (VOLTAREN) 1 % topical gel Apply 2 g topically if needed (PAIN). 04/21/2023 estradioL (ESTRACE) 0.01 % (0.1 mg/gram) vaginal cream Insert into the vagina at bedtime. Apply a pea-sized amount of cream with your finger into the vagina daily at bedtime for 2 weeks, then two times a week at night. 04/05/2023 fluticasone propionate (FLONASE) 50 mcg/actuation nasal spray Administer 2 sprays into each nostril 1 (one) time each day. Shake gently. Before first use, prime pump. After use, clean tip and replace cap. fluticasone-umeclidini um-vilanterol (Trelegy Ellipta) 100-62.5-25 mcg inhaler Inhale by mouth. 11/04/2019 furosemide (LASIX) 20 mg tablet Take 2 tablets (40 mg total) by mouth 1 (one) time each day if needed. isosorbide mononitrate (IMDUR) 30 mg 24 hr tablet TAKE 1 TABLET BY MOUTH EVERY DAY IN THE MORNING 90 tablet 3 05/09/2024 lidocaine (LIDODERM) 5 % patch Place 1 patch on the skin 1 (one) time each day. Apply for no more than 12 hours in any 24 hour period. 03/21/2024 melatonin 10 mg tablet Take by mouth at bedtime. metFORMIN XR (GLUCOPHAGE-XR) 500 mg 24 hr tablet TAKE 1 TABLET BY MOUTH EVERY DAY WITH BREAKFAST 90 tablet 1 05/31/2024 methocarbamoL (ROBAXIN) 500 mg tablet Take 1 tablet (500 mg total) by mouth 3 (three) times a day. PRN metoprolol tartrate (LOPRESSOR) 50 mg tablet Take 1 tablet (50 mg total) by mouth 2 (two) times a day. 180 tablet 1 05/02/2024 nitroglycerin (NITROSTAT) 0.[address] 1 tablet (0.4 mg total) under the tongue every 5 (five) minutes if needed for chest pain. IF NO RELIEF CALL 911 01/03/2024 Oxygen Therapy (O2) gas Administer 2-3 L into affected nostril(s) at bedtime. [employer] plecanatide (Trulance) 3 mg tablet Take 1 tablet (3 mg total) by mouth 1 (one) time each day. 02/10/2023 predniSONE (DELTASONE) 10 mg tablet Take 1 tablet (10 mg total) by mouth 1 (one) time each day. 40 mg for 3 days. 30 mg for 3 days. 20 mg for 3 days. 10 mg for 3 days. Then discontinue. documented as of this encounter Discharge Disposition Disposition Code Departure Means Destination Home or Self Care documented in this encounter Plan of Treatment Upcoming Encounters Date Type Department Care Team (Late st Contact Info) Description 07/17/2024 11:59 PM EST Anesthesia Event [facility] [address] [place] [address] Tiffany Gilmore [place] 07/30/2024 9:30 AM EST Hospital Encounter [facility] [address] [place] [address] Marcus Murcia DO [address] [address] 07/30/2024 1:15 PM EST Office Visit Adult Medicine [address] [phone] Kathy Perez MD [address] [place] [address] [place] [address] 08/06/2024 8:30 AM EST Ancillary Procedure [facility] [address] [address] 08/27/2024 11:00 AM EDT Ancillary Procedure [facility] [address] [address] 10/03/2024 9:50 AM EDT Office Visit [facility] [address] [address] Kameron Zuñiga MD [address] [address] documented as of this encounter Procedures Procedure Name Priority Date/Time Associated Diagnosis Comments XR CHEST 2 VIEWS Routine 07/22/2024 2:52 PM EST Pneumonia of both lower lobes due to infectious organism documented in this encounter Results * XR Chest 2 Views (07/22/2024 2:52 PM EST) Anatomical Region Laterality Modality Body Radiographic Kayley ging 07/22/2024 5:42 PM EST Impressions 07/22/2024 5:44 PM EST Persistent airspace opacities within the right lower lung which represents persistent pneumonia. -------- FINAL REPORT -------- Dictated By: Moo Coyle Dictated Date: 07/22/2024 17:42 ET Assigned Physician: Moo Coyle Reviewed and Electronically Signed By: Moo Coyle Signed Date: 07/22/2024 17:44 ET Workstation ID: [id number] Transcribed By: Self Edit Transcribed Date: 07/22/2024 17:42 ET Narrative 07/22/2024 5:44 PM EST HISTORY: pneumonia Dx at [facility]. 4 week f.u TECHNIQUE: PA and lateral radiographs of the chest COMPARISON: Chest radiograph from 06/23/2023 FINDINGS: There is a normal cardiomediastinal silhouette. ??Atherosclerosis of the thoracic aorta. ??Increased airspace opacities within the right lower lung zone. ??Mild degenerative changes of the thoracic spine. Procedure Note Moo Coyle MD - 07/22/2024 HISTORY: pneumonia Dx at [facility]. 4 week f.u TECHNIQUE: PA and lateral radiographs of the chest COMPARISON: Chest radiograph from 06/23/2023 FINDINGS: There is a normal cardiomediastinal silhouette. Atherosclerosis of thethoracic aorta. Increased airspace opacities within the right lower lungzone. Mild degenerative changes of the thoracic spine. IMPRESSION: Persistent airspace opacities within the right lower lung which representspersistent pneumonia. -------- FINAL REPORT -------- Dictated By: Moo Coyle Dictated Date: 07/22/2024 17:42 ET Assigned Physician: Moo Coyle Reviewed and Electronically Signed By: Moo Coyle Signed Date: 07/22/2024 17:44 ET Workstation ID: [id number] Transcribed By: Self Edit Transcribed Date: 07/22/2024 17:42 ET Pau LOPEZ IMG XR PROCEDURES documented in this encounter Visit Diagnoses Diagnosis Pneumonia of both lower lobes due to infectious organism documented in this encounter Care Teams Bread Panner Relationship Specialty Start Date End Date Kathy Perez MD [address] [place] [id number] PCP - General Internal Medicine 07/22/24 documented as of this encounter
--- OUTSIDE RECORDS SUMMARY | 2024-07-23 09:43 | XMS_ITS | Encounter Summary ---
Author Organization [employer] Address [address] [place] [address] Care Team Providers Care Pan Shover Name Role Phone Kathy Perez MD Primary Care Prov ider Reason for Visit * Reason Onset Date Comments Hospital Follow-up 06/24/2024 Encounter Details Date Type Department Care Team (Late st Contact Info) Description 06/24/2024 Telephone Adult Medicine [address] [phone] Kathy Perez MD [address] [place] [address] Hospital Follow-up Social History Tobacco Use Types Packs/Day Years [...] on file documented as of this encounter Progress Notes * Bren Tim RN - 06/24/2024 11:49 AM EST Scheduled hosp f/u for 06/27 at 10:15 * Negro Reis - 06/24/2024 11:18 AM EST Hospital/ER follow up appointment needed Hospital patient was treated at: [facility] Was this only an ER visit or was the patient admitted to the hospital? Admitted Date of visit if ER visit only: If patient was admitted what was the date of discharge? 06/21/23 Reason/diagnosis for visit or stay: Pneumonia When was the patient told to follow up? Within 1 week Was visit or stay related to an injury? If yes, what was the date of injury (DOI)? No If yes, was the injury due to: Not 3rd democrat related documented in this encounter Plan of Treatment Upcoming Encounters Date Type Department Care Team (Late st Contact Info) Description 07/17/2024 11:59 PM EST Anesthesia Event [facility] [address] [place] [address] Tiffany Gilmore [place] 07/30/2024 9:30 AM EST Hospital Encounter [facility] [address] [place] [address] Marcus Murcia DO [address] [address] 07/30/2024 1:15 PM EST Office Visit Adult Medicine [address] [phone] Kathy Perez MD [address] [place] [address] 08/06/2024 8:30 AM EST Ancillary Procedure [facility] [address] [address] 08/27/2024 11:00 AM EDT Ancillary Procedure [facility] [address] [address] 10/03/2024 9:50 AM EDT Office Visit [facility] [address] [place] [phone] Kameron Zuñiga MD [address] [place] [address] documented as of this encounter Visit Diagnoses Not on filedocumented in this encounter Care Teams Pan Shover Relationship Specialty Start Date End Date Kathy Perez MD PCP - General Internal Medicine 01/21/22 07/21/24 documented as of this encounter
--- OUTSIDE RECORDS SUMMARY | 2024-07-23 09:43 | XMS_ITS | Clinical Summary ---
Author Organization [facility] Address [address] [place] [address] Care Team Providers Care Gyro Mechanic Name Role Phone Pito Thompson MD Primary Care Provider [phone] Allergies No known active allergies Medications Medication Sig Dispensed Refills Start Date End Date Status aspirin enteric coated (ECOTRIN LOW STRENGTH) 81 MG EC tabletIndications:Cor onary artery disease involving assiniboine and sioux heart, unspecified vessel or lesion type, unspecified whether angina present Take 1 tablet (81 mg total) by mouth daily. Do not start before July 29, 2021. 30 tablet 07/29/2021 Active isosorbide mononitrate (IMDUR) 30 MG 24 hr tablet Take 30 mg by mouth daily. Active metoPROLOL SUCCINATE (TOPROL-XL) 50 MG 24 hr tablet Take 100 mg by mouth daily. 06/08/2021 Active olmesartan (BENICAR) 5 MG tablet Take 5 mg by mouth daily. 06/02/2021 Active amitriptyline (ELAVIL) 10 MG tabletIndications:Non intractable headache, unspecified chronicity pattern, unspecified headache type Take 1 tablet (10 mg total) by mouth nightly. 14 tablet 07/28/2021 Active Active Problems Problem Noted Date Diagnosed Date Hypotension 07/24/2021 Social History Tobacco Use Types Packs/Day Years Used Date Smoking Tobacco: Never Assessed Sex and Gender Information Value Date Recorded Sex Assigned at Not on file Gender Identity Not on file Sexual Orientation Not on file Last Filed Vital Signs Vital Sign Reading Time Taken Comments Blood Pressure 108/62 07/28/2021 2:00 PM EST Pulse 88 07/28/2021 2:00 PM EST Temperature 36.4 ??C (97.5 ??F) 07/28/2021 2:00 PM ES T Respiratory Rate 18 07/28/2021 2:00 PM EST Oxygen Saturation 97% 07/28/2021 2:00 PM EST Inhaled Oxygen Concentration - - Weight 83.3 kg (183 lb 9.6 oz) 07/28/2021 6:22 A M EST Height 162.6 cm (5' 4 ) 07/24/2021 10:59 PM EST Body Mass Index 31.51 07/24/2021 10:59 PM EST Plan of Treatment Health Maintenance Due Date Last Done Comments Hepatitis C Virus Screening 1945 DTaP/Tdap/Td Vaccines (1 - Tdap) 10/08/1963 Pneumococcal Vaccines 50+ (1 of 1 - PCV) 1994 Zoster (Shingles) Vaccine (1 of 2) 1994 DXA Bone Density (Females,Ag es 65 and older) 2009 RSV Vaccine 60 years and old er and Patients (1 - 1-dose 75+ series) 10/08/2019 Influenza Vaccine 01/18/2024 COVID-19 Vaccine (2023-2 5 season) 2024 Hepatitis B Vaccines Aged Out No long er eligible based on patient's age to complete this topic Advance Directives * Full Code (Latest Code Status on File) Date Activated Date Inactivated Comments 07/24/2021 9:24 PM Care Teams Gyro Mechanic Relationship Specialty Start Date End Date Pito Thompson MD [address] [place] [address] PCP - General 07/25/21
--- OUTSIDE RECORDS SUMMARY | 2024-07-23 09:43 | XMS_ITS | Encounter Summary ---
Author Organization [facility] [place] [address] Care Team Providers Care Director Dermatology Name Role Phone Kathy Perez MD Primary Care Prov ider Reason for Visit * Reason Onset Date Comments Fitting for DME 07/18/2024 Faxed form from [employer] Appointment 07/18/2024 Encounter Details Date Type Department Care Team (Late st Contact Info) Description 07/18/2024 Telephone Adult Medicine [address] [phone] Amy Carlton LPN Fitting for DME (Faxed form from [employer]); Appointment Social History Tobacco Use Types Packs/Day Years [...] as of this encounter Progress Notes * Amy Carlton LPN - 07/18/2024 10:16 AM EST For incontinence briefs Form to Dr Trina Rizo to sign documented in this encounter Plan of Treatment Upcoming Encounters Date Type Department Care Team (Late st Contact Info) Description 07/17/2024 11:59 PM EST Anesthesia Event [facility] [address] [place] [phone] Tiffany Gilmore [place] 07/30/2024 9:30 AM EST Hospital Encounter [facility] [address] [place] [phone] Marcus Murcia DO [address] [address] 07/30/2024 1:15 PM EST Office Visit Adult Medicine [address] [phone] Kathy Perez MD [address] [place] [address] 08/06/2024 8:30 AM EST Ancillary Procedure [facility] [place] [address] [address] 08/27/2024 11:00 AM EDT Ancillary Procedure [facility] - [address] [address] 10/03/2024 9:50 AM EDT Office Visit [address] [address] Kameron Zuñiga MD [address] [address] documented as of this encounter Visit Diagnoses Not on filedocumented in this encounter Care Teams Director Dermatology Relationship Specialty Start Date End Date Kathy Perez MD [address] [place] [address] PCP - General Internal Medicine 07/22/24 documented as of this encounter
--- OUTSIDE RECORDS SUMMARY | 2024-07-23 09:43 | XMS_ITS | Encounter Summary ---
Author Organization Action Address [address] [place] [address] Care Team Providers Care Automobile Seat Cover Installer Name Role Phone Kathy Perez MD Primary Care Prov ider Reason for Visit * Reason Comments Hospital Follow-up @ [facility] Encounter Details Date Type Department Care Team (Late st Contact Info) Description 06/27/2024 10:30 AM EST Office Visit Adult Medicine [address] [address] Pau Shultz PA [address] [place] [address] Pneumonia of both lower lobes due to infectious organism (Primary Dx); Nausea and vomiting, unspecified vomiting type; Diarrhea, unspecified type; Type 2 diabetes mellitus with stage 3a chronic kidney disease, without long-term current use of insulin ([facility]) Social History Tobacco Use Types Packs/Day Years Used Date Smoking Tobacco: Former Cigarettes 2 30.8 0 1958 - 07/17/1989 Smokeless Tobacco: Never Tobacco Cessation:Counseling Given: Not Answered Alcohol Use Standard Drinks/Week Comments No 0 (1 standard drink = 0.6 oz pur e alcohol) Sex and Gender Information Value Date Recorded Sex Assigned at Not on file Gender Identity Not on file Sexual Orientation Not on file Job Start Date Occupation Industry Not on file Not on file Not on file documented as of this encounter Last Filed Vital Signs Vital Sign Reading Time Taken Comments Blood Pressure 137/70 06/27/2024 10:33 AM EST Pulse 80 06/27/2024 10:33 AM EST Temperature 36.2 ??C (97.2 ??F) 06/27/2024 10:[address] Respiratory Rate 16 06/27/2024 10:33 AM EST Oxygen Saturation 97% 06/27/2024 10:33 AM EST room air Inhaled Oxygen Concentration - - Weight 82.6 kg (182 lb) 06/27/2024 10:33 AM EST Height - - Body Mass Index 32.24 06/04/2024 3:27 PM EST documented in this encounter Progress Notes * JESSICA Rebolledo - 06/27/2024 10:30 AM EST CHIEF COMPLAINT: Hospital Follow-up (@ [facility]) IDENTIFIER: Shea Ramirez is a 78 y.o. old female. HPI: Patient presents to the office today for reevaluation of nausea, vomiting, diarrhea, pneumonia. [facility] and was discharged on 06/21/2024. I have reconciled the current and discharge meds.Prior to hospitalization she was seen by aging room hand and diagnosed with pneumonia via chest x-ray. Was started on doxycycline and Medrol Dosepak. Was not able to tolerate doxycycline due to stomach upset. No evidence of sepsis. COVID, flu, RSV negative. Treated with IV azithromycin and ceftriaxone. Blood cultures negative. Respiratory symptoms improved. Legionella urine antigen, strep pneumo urine antigen pending at time of discharge. These have not been resulted and were not detected. Acute lactic acidosis resolved with IV fluids. Patient was discharged withcefuroxime 500 mg every 12 hours for 5 days in addition to prednisone taper. Patient has completed antibiotic. She continues on steroid taper. She is using albuterol nebulizer or inhaler as needed. She is using Trelegy for maintenance. She reports drastic improvement in symptoms. No fever or chills. No coughing, wheezing, shortness of breath. No hemoptysis. Resolution of vomiting, diarrhea. Nausea is improved. Has diabetes. Sugars have been well-controlled even on prednisone course. ROS: GENERAL: SEE HPI HEENT: No acute URI symptoms NECK: No swollen lymph nodes RESPIRATORY: SEE HPI CARDIOVASCULAR: No chest pain, leg swelling or palpitations GI: SEE HPI MUSCULOSKELETAL: See HPI SKIN: No lesions, rash or itching NEURO: No persistent headache, syncope, seizures, weakness or numbness PAST MEDICAL HISTORY: Patient Active Problem List Diagnosis Date Noted Osteoarthritis 04/23/2024 Class 1 obesity due to excess calories with serious comorbidity and body mass index (BMI) of 32.0 to 32.9 in adult 04/23/2024 Mucopurulent chronic bronchitis ([facility]) 05/24/2023 Palpitations 05/24/2023 Chronic heart failure with preserved ejection fraction ([facility]) 11/24/2022 Chest pain 11/18/2022 CHF (congestive heart failure) ([facility]) 11/18/2022 Hypertensive retinopathy 11/10/2021 SOTELO (dyspnea on exertion) 09/27/2021 Tachycardia 09/27/2021 Syncope 09/22/2021 Osteopenia 06/26/2021 Anemia 05/07/2020 Asymptomatic stenosis of intracranial artery 05/07/2020 Stenosis of left vertebral artery 05/07/2020 Osteoarthritis of both shoulders 12/26/2019 Type 2 diabetes mellitus with stage 3 chronic kidney disease, without long-term current use of insulin ([facility]) 11/04/2019 Mammographic microcalcification 01/10/2019 Hearing decreased, bilateral 12/18/2018 COPD (chronic obstructive pulmonary disease) ([facility]) 12/10/2018 Supplemental oxygen dependent 12/10/2018 Obstructive sleep apnea 11/21/2018 Subclinical hyperthyroidism 05/09/2018 Peripheral edema 05/03/2018 Chronic shoulder pain 05/31/2017 CKD (chronic kidney disease) stage 3, GFR 30-59 ml/min ([facility]) 05/31/2017 Iron deficiency anemia due to chronic blood loss 08/18/2016 IBS (irritable bowel syndrome) 03/25/2016 Recurrent HSV (herpes simplex virus) 12/11/2015 Diabetes mellitus type 2 with neurological manifestations ([facility]) 08/01/2015 Diverticulosis 05/20/2015 Tubular adenoma of colon 05/20/2015 Coronary artery disease involving [place] coronary artery of [place] heart without angina pectoris 01/21/2015 Hyperlipidemia 07/18/2014 Solitary pulmonary nodule 11/08/2013 Anxiety 06/18/2013 Allergic rhinitis 07/17/2012 Asthma 07/17/2012 Gastroparesis 07/17/2012 GERD (gastroesophageal reflux disease) 07/17/2012 Insomnia 07/17/2012 Primary hypertension 07/17/2012 Past Surgical History: Procedure Laterality Date APPENDECTOMY PROCEDURE:APPENDECTOMY BLADDER SUSPENSION 05/29/2018 PROCEDURE: HISTORICAL BLADDER SUSPENSION CARDIAC CATHETERIZATION 09/26/2014 PROCEDURE: HISTORICAL CARDIAC CATH; COMMENT: RCA stent RONNELL, Dr Hernandez COLONOSCOPY 06/2005 PROCEDURE: HISTORICAL COLONOSCOPY; COMMENT: tubular adenoma COLONOSCOPY 06/2010 PROCEDURE: HISTORICAL COLONOSCOPY; COMMENT: negative COLONOSCOPY 12/16/2015 PROCEDURE: HISTORICAL COLONOSCOPY; COMMENT: tubular adenoma CYSTOSCOPY 03/18/2019 PROCEDURE: HISTORICAL CYSTOSCOPY; COMMENT: Normal FOOT SURGERY PROCEDURE: HISTORICAL FOOT SURGERY; COMMENT: 18 y/o bunionectomy FOOT SURGERY 12/2013 PROCEDURE: HISTORICAL FOOT SURGERY; COMMENT: for second toe arthroplasty KNEE SURGERY Left PROCEDURE: HISTORICAL KNEE SURGERY; COMMENT: Arthroscopy OTHER SURGICAL HISTORY 2007 PROCEDURE: IA CORRECTION HAMMERTOE; COMMENT: SHOULDER SURGERY Left PROCEDURE: HISTORICAL SHOULDER SURGERY; COMMENT: Arthroscopy with Dr. Berg TUBAL LIGATION PROCEDURE:TUBAL LIGATION UPPER GASTROINTESTINAL ENDOSCOPY 03/22/2012 PROCEDURE: IA UPPER GI ENDOSCOPY PERFORMED; COMMENT: Normal study UPPER GASTROINTESTINAL ENDOSCOPY 11/27/2015 PROCEDURE: IA UPPER GI ENDOSCOPY PERFORMED; COMMENT: Gastritis and polyp. Normal Esophagus and duodenum. UPPER GASTROINTESTINAL ENDOSCOPY 2012 PROCEDURE: IA UPPER GI ENDOSCOPY PERFORMED; COMMENT: FOR GERD UPPER GASTROINTESTINAL ENDOSCOPY 08/18/2004 PROCEDURE: IA UPPER GI ENDOSCOPY PERFORMED SOCIAL HISTORY: Social History Tobacco Use Smoking status: Former Current packs/day: 0.00 Average packs/day: 2.0 packs/day for 30.8 years (61.6 ttl pk-yrs) Types: Cigarettes Start date: 1959 Quit date: 07/17/1989 Years since quittin.9 Smokeless tobacco: Never Substance Use Topics Alcohol use: No FAMILY HISTORY: Family History Problem Relation Name Age of Onset Other (Other: cardiomegaly) Mother ASTHMA, CHF Family Status Relation Name Status Mother Father No partnership data on file MEDICATIONS DISCONTINUED/REORDERED: Medications Discontinued During This Encounter Medication Reason triamcinolone (KENALOG) 0.025 % cream Therapy completed ACTIVE MEDICATIONS: Outpatient Medications Marked as Taking for the 06/27/24 encounter (Office Visit) with JESSICA Rebolledo Medication Sig Dispense Refill albuterol 2.5 mg /3 mL (0.083 %) nebulizer solution Inhale 3 mL (2.5 mg total) by mouth every 4 (four) hours if needed for wheezing. albuterol HFA (PROAIR HFA ; PROVENTIL HFA ; VENTOLIN HFA) 90 mcg/actuation inhaler Inhale 2 puffs by mouth every 4 (four) hours if needed (Cough, Wheezing or Shortness of Breath). ASPIRIN ORAL Take 81 mg by mouth 1 (one) time each day. atorvastatin (LIPITOR) 80 mg tablet Take 1 tablet (80 mg total) by mouth 1 (one) time each day. cetirizine (ZyrTEC) 10 mg tablet TAKE 1 TABLET BY MOUTH EVERY DAY 90 tablet 1 cholecalciferol (VITAMIN D-3) 50 mcg (2,000 unit) capsule Take 1 capsule (2,000 Units total) by mouth 1 (one) time each day. dexlansoprazole (DEXILANT) [address] capsule Take 1 capsule (60 mg total) by mouth 1 (one) time eachday. diclofenac (VOLTAREN) 1 % topical gel Apply 2 g topically if needed (PAIN). estradioL (ESTRACE) 0.01 % (0.1 mg/gram) vaginal cream Insert into the vagina at bedtime. Apply a pea-sized amount of cream with your finger into the vagina daily at bedtime for 2 weeks, then two times a week at night. tjtbkvycgrr-vnpcflrtwyqz-qhlefjehes (Trelegy Ellipta) 100-62.5-25 mcg inhaler Inhale by mouth. furosemide (LASIX) 20 mg tablet Take 2 tablets (40 mg total) by mouth 1 (one) time each day if needed. isosorbide mononitrate (IMDUR) 30 mg 24 hr tablet TAKE 1 TABLET BY MOUTH EVERY DAY IN THE MORNING 90 tablet 3 lidocaine (LIDODERM) 5 % patch Place 1 patch on the skin 1 (one) time each day. Apply for no more than 12 hours in any 24 hour period. melatonin 10 mg tablet Take by mouth at bedtime. metFORMIN XR (GLUCOPHAGE-XR) 500 mg 24 hr tablet TAKE 1 TABLET BY MOUTH EVERY DAY WITH BREAKFAST 90tablet 1 metoprolol tartrate (LOPRESSOR) 50 mg tablet Take 1 tablet (50 mg total) by mouth 2 (two) times a day. 180 tablet 1 nitroglycerin (NITROSTAT) 0.[address] 1 tablet (0.4 mg total) under the tongue every 5 (five) minutes if needed for chest pain. IF NO RELIEF CALL 911 Oxygen Therapy (O2) gas Administer 2-3 L into affected nostril(s) at bedtime. Merlene plecanatide (Trulance) 3 mg tablet Take 1 tablet (3 mg total) by mouth 1 (one) time each day. ALLERGIES: Amoxicillin-pot clavulanate PHYSICAL EXAM: Blood pressure 137/70, pulse 80, temperature 36.2 ??C (97.2 ??F), resp. rate 16, weight 82.6 kg (182 lb), SpO2 97%. Body mass index is 32.24 kg/m??. Plan is deferred until next visit APPEARANCE: Alert and in no acute distress, appears comfortable EYES: PERRLA, conjunctiva and sclera normal. EARS: External ears normal. Canals clear. TMs normal. NOSE/SINUS: Nares normal. Mucosa normal. No drainage. No maxillary sinus tenderness. MOUTH/THROAT: No stridor. No tripoding. No dysphonia/hoarseness. No trismus. Airway patent. No erythema or exudates NECK: Trachea midline. No rigidity. No lymphadenopathy. HEART: RRR with normal S1 and S2, no murmurs LUNG: Patient is speaking in full, clear sentences. No increased work of breathing is appreciated. Lungs are clear to auscultation without wheezes, rales, or rhonchi. EXTREMITIES: Extremities warm and well perfused without clubbing, cyanosis, or edema NEURO: Awake, alert and oriented x 3. SKIN: Skin color, texture, turgor normal. No rashes. LABS: See HPI Lab Results Component Value Date HGBA1C 6.5 03/26/2024 IMAGING: See HPI/plan IMPRESSION: 1. Pneumonia of both lower lobes due to infectious organism 2. Nausea and vomiting, unspecified vomiting type 3. Diarrhea, unspecified type 4. Type 2 diabetes mellitus with stage 3a chronic kidney disease, without long- term current use of insulin ([facility]) PLAN: Vitals are stable. Oxygen is very good on room air. Nausea drastically improved. Vomiting has resolved. Diarrhea has resolved. Patient has completed antibiotic therapy and is without symptoms suspicious for lingering respiratory infection. She will continue steroid taper until complete. She will continue with Trelegy for maintenance. She will continue with albuterol as needed. She will follow-up with pulmonology. She is ordered for chest x-ray to be repeated in 4 weeks to assess for radiographic resolution. Patient understands and agrees to plan. Patient will return to the office for routine care with PCP next month as scheduled. Will contact the office sooner with any further problems or concerns. Medication and lab orders: Orders Placed This Encounter Procedures XR Chest 2 Views Other orders: XR CHEST 2 VIEWS JESSICA Rebolledo on 06/27/2024 at 12:30 PM EST documented in this encounter Plan of Treatment Upcoming Encounters Date Type Department Care Team (Late st Contact Info) Description 07/17/2024 11:59 PM EST Anesthesia Event [facility] [address] [place] [address] Tiffany Gilmore MA 07/30/2024 9:30 AM EST Hospital Encounter [facility] [address] [place] [address] Marcus Murcia DO [address] [address] 07/30/2024 1:15 PM EST Office Visit Adult [address] [address] Kathy Perez MD [address] [place] [id number] 08/06/2024 8:30 AM EST Ancillary Procedure [facility] [address] [address] 08/27/2024 11:00 AM EDT Ancillary Procedure [facility] [address] [address] 10/03/2024 9:50 AM EDT Office Visit [place] [address] [address] [place] [address] Kameron Zuñiga MD [address] [address] documented as of this encounter Results * XR Chest 2 [...] Signed Date: 07/22/2024 17:44 ET Workstation ID: [id number] Transcribed By: Self Edit Transcribed Date: 07/22/2024 17:42 ET Narrative 07/22/2024 5:44 PM EST HISTORY: pneumonia Dx at [facility]. 4 week f.u TECHNIQUE: PA and lateral radiographs of the chest COMPARISON: Chest radiograph from 06/23/2023 FINDINGS: There is a normal cardiomediastinal silhouette. ??Atherosclerosis of the thoracic aorta. ??Increased airspace opacities within the right lower lung zone. ??Mild degenerative changes of the thoracic spine. Procedure Note Moo Coyle MD - 07/22/2024 HISTORY: pneumonia Dx at [facility]. 4 week f.u TECHNIQUE: PA and lateral [...] Signed Date: 07/22/2024 17:44 ET Workstation ID: [id number] Transcribed By: Self Edit Transcribed Date: 07/22/2024 17:42 ET Pau LOPEZ IMG XR PROCEDURES documented in this encounter Visit Diagnoses Diagnosis Pneumonia of both lower lobes due to infectious organism- Primary Nausea and vomiting, unspecified vomiting type Diarrhea, unspecified type Type 2 diabetes mellitus with stage 3a chronic kidney disease, without long-term current use of insulin ([facility]) Pneumonia of both lower lobes due to infectious organism documented in this encounter Discontinued Medications Medication Sig Discontinue Reason Start Date End Da te triamcinolone (KENALOG) 0.025 % cream Apply to affected area twice daily for 2 weeks. Therapy completed 12/27/2023 06/27/2024 documented as of this encounter Historical Medications * This list may reflect changes made after this encounter. Medication Sig Dispensed Refills Start Date End Date predniSONE (DELTASONE) 10 mg tablet Take 1 tablet (10 mg total) by mouth 1 (one) time each day. 40 mg for 3 days. 30 mg for 3 days. 20 mg for 3 days. 10 mg for 3 days. Then discontinue. fluticasone propionate (FLONASE) 50 mcg/actuation nasal spray Administer 2 sprays into each nostril 1 (one) time each day. Shake gently. Before first use, prime pump. After use, clean tip and replace cap. methocarbamoL (ROBAXIN) 500 mg tablet Take 1 tablet (500 mg total) by mouth 3 (three) times a day. PRN azelastine (ASTELIN) 137 mcg (0.1 %) nasal spray Administer 2 sprays into each nostril 2 (two) times a day. Use in each nostril as directed added in this encounter Care Teams Automobile Seat Cover Installer Relationship Specialty Start Date End Date Kathy Perez MD PCP - General Internal Medicine 01/21/22 07/21/24 documented as of this encounter
--- OUTSIDE RECORDS SUMMARY | 2024-07-23 09:43 | XMS_ITS | Clinical Summary ---
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 Active melatonin 10 mg tablet Take by mouth at bedtime. Active Oxygen Therapy (O2) gas Administer 2-3 L into affected nostril(s) at bedtime. [employer] Active albuterol HFA (PROAIR HFA ; PROVENTIL HFA ; VENTOLIN HFA) 90 mcg/actuation inhaler Inhale 2 puffs by mouth every 4 (four) hours if needed (Cough, Wheezing or Shortness of Breath). 3 Active atorvastatin (LIPITOR) 80 mg tablet Take 1 tablet (80 mg total) by mouth 1 (one) time each day. 4 Active cholecalciferol (VITAMIN D-3) 50 mcg (2,000 unit) capsule Take 1 capsule (2,000 Units total) by mouth 1 (one) time each day. 2 Active diclofenac (VOLTAREN) 1 % topical gel Apply 2 g topically if needed (PAIN). 3 Active estradioL (ESTRACE) 0.01 % (0.1 mg/gram) vaginal cream Insert into the vagina at bedtime. Apply a pea-sized amount of cream with your finger into the vagina daily at bedtime for 2 weeks, then two times a week at night. 3 Active fluticasone-ume clidinium-vilan terol (Trelegy Ellipta) 100-62.5-25 mcg inhaler Inhale by mouth. 0 Active furosemide (LASIX) 20 mg tablet Take 2 tablets (40 mg total) by mouth 1 (one) time each day if needed. Active lidocaine (LIDODERM) 5 % patch Place 1 patch on the skin 1 (one) time each day. Apply for no more than 12 hours in any 24 hour period. 4 Active nitroglycerin (NITROSTAT) 0.[address] 1 tablet (0.4 mg total) under the tongue every 5 (five) minutes if needed for chest pain. IF NO RELIEF CALL 911 4 Active plecanatide (Trulance) 3 mg tablet Take 1 tablet (3 mg total) by mouth 1 (one) time each day. 3 Active cetirizine (ZyrTEC) 10 mg tablet TAKE 1 TABLET BY MOUTH EVERY DAY 90 tablet 1 4 Active metoprolol tartrate (LOPRESSOR) 50 mg tablet Take 1 tablet (50 mg total) by mouth 2 (two) times a day. 180 tablet 1 4 Active isosorbide mononitrate (IMDUR) 30 mg 24 hr tablet TAKE 1 TABLET BY MOUTH EVERY DAY IN THE MORNING 90 tablet 3 4 Active metFORMIN XR (GLUCOPHAGE-XR) 500 mg 24 hr tablet TAKE 1 TABLET BY MOUTH EVERY DAY WITH BREAKFAST 90 tablet 1 4 Active azelastine (ASTELIN) 137 mcg (0.1 %) nasal spray Administer 2 sprays into each nostril 2 (two) times a day. Use in each nostril as directed Active methocarbamoL (ROBAXIN) 500 mg tablet Take 1 tablet (500 mg total) by mouth 3 (three) times a day. PRN Active fluticasone propionate (FLONASE) 50 mcg/actuation nasal spray Administer 2 sprays into each nostril 1 (one) time each day. Shake gently. Before first use, prime pump. After use, clean tip and replace cap. Active predniSONE (DELTASONE) 10 mg tablet Take 1 tablet (10 mg total) by mouth 1 (one) time each day. 40 mg for 3 days. 30 mg for 3 days. 20 mg for 3 days. 10 mg for 3 days. Then discontinue. Active albuterol 2.5 mg /3 mL (0.083 %) nebulizer solution TAKE 1 VIAL BY NEBULIZATION EVERY 4 HOURS NEEDED FOR WHEEZING 75 mL 1 5 Active dexlansoprazole (DEXILANT) [address] capsule TAKE 1 CAPSULE BY MOUTH EVERY DAY 90 capsule 3 5 Active albuterol 2.5 mg /3 mL (0.083 %) nebulizer solution Inhale 3 mL (2.5 mg total) by mouth every 4 (four) hours if needed for wheezing. 4 07/16/19 25 Discontinued dexlansoprazole (DEXILANT) [address] capsule Take 1 capsule (60 mg total) by mouth 1 (one) time each day. 4 07/17/19 25 Discontinued triamcinolone (KENALOG) 0.025 % cream Apply to affected area twice daily for 2 weeks. 4 06/27/19 25 Discontinued(The rapy completed) Active Problems Problem Noted Date Diagnosed Date Osteoarthritis 04/23/2024 Class 1 obesity due to exces s calories with serious comorbidity and body mass index (BMI) of 32.0 to 32.9 in adult 04/23/2024 Mucopurulent chronic bronchitis 05/24/2023 Palpitations 05/24/2023 Chronic heart failure with preserved ejection fr action 11/24/2022 Assessment & Plan (06/04/2024 4:36 PM EST): The patient presents today reporting episodes of shortness of breath on exertion as well as intermittent peripheral edema; she admits that she is not compliant with her diuretic on a regular basis and typically only takes it every other day. She has very fine crackles in her left lower lobe as well as positive JVD and HJR; she admits she did not take her diuretic this morning due to her appointment. I have strongly urged her to improve her compliance with her diuretic to see if this helps to improve her symptoms. In the past, her BNP was not elevated when she appeared fluid overloaded so the utility of repeating this today is unclear; she is not requiring any other lab work today so we will defer this at this time. We will update an echocardiogram for reevaluation. She may benefit from an SGLT2 inhibitor but we will revisit this once we see the results of her echocardiogram and how she responds to improve compliance with furosemide. We will update a metabolic panel and magnesium level in approximately 1 month. I have strongly encouraged her to continue with a low- sodium diet and perform daily weights. I've asked the patient to call if they develop worsening symptoms of heart failure such as increased shortness of breath, new or worsening cough, increased swelling in the legs or ankles, or weight gain of more than 2 pounds in one day or 4 pounds in one week. Orders: Transthoracic echocardiogram (TTE) complete with PRN contrast, bubble, strain, and 3D order panel; Future Basic metabolic panel; Future Magnesium; Future Chest pain 11/18/2022 CHF (congestive heart failure) 11/18/2022 Hypertensive retinopathy 11/10/2021 Overview (04/23/2024): Dr. Martinez. Optimize blood pressure control SOTELO (dyspnea on exertion) 09/27/2021 Assessment & Plan (06/04/2024 4:36 PM EST): As above; likely multifactorial in nature related to underlying pulmonary disease, coronary artery disease and diastolic heart failure, obesity, and deconditioning. Will continue to readdress this. Orders: Nuclear stress test with myocardial perfusion; Future Transthoracic echocardiogram (TTE) complete with PRN contrast, bubble, strain, and 3D order panel; Future Tachycardia 09/27/2021 Assessment & Plan (06/04/2024 4:36 PM EST): Heart rate well-controlled on exam today; may consider repeating ambulatory cardiac monitoring for reevaluation should subjective episodes of tachycardia continue. The patient does admit that she was ill with pneumonia at the time that the nurse visiting her at home noted an elevated heart rate; she is also not sure what she was doing just prior to this or if her oxygen saturation was low. Continue metoprolol 50 mg twice daily. Syncope 09/22/2021 Osteopenia 06/26/2021 Anemia 05/07/2020 Asymptomatic stenosis of intracranial artery Stenosis of left vertebral artery 05/07/2020 Osteoarthritis of both shoulders 12/26/2019 Type 2 diabetes mellitus wit h stage 3 chronic kidney disease, without long-term current use of insulin 11/04/2019 Mammographic microcalcification 01/10/2019 Hearing decreased, bilateral 12/18/2018 COPD (chronic obstructive pulmonary disease) Supplemental oxygen dependent 12/10/2018 Obstructive sleep apnea 11/21/2018 Overview (04/23/2024): [facility] Home Sleep Apnea Test: Date 11/18/2018; Wt 192#; BMI 33; HAYLEY 16, AI 1; HI 14; Unclassified apneas 0; Obstructive apneas 10; Central apneas 0; Mixed apneas 0; hypopneas 126; average oxygen saturation 88% (lowest 73% with saturations <88% for 5% or more of study) [facility] Polysomnogram treatment study. Date 01/11/2019. Wt 195#; BMI 33; SE 50 % SM 53 %; spent 17 % of the study in REM. On CPAP @ 11; RDI 9.1 (AHI 3), Central apneas 0; Obstructive apneas 0; Mixed apneas 0; hypopneas 1; RERAs 2; and, average oxygen saturation was 95%. For the entire study, PLMs ~0. CPAP @ 12 recommended. - Obstructive Sleep Apnea - moderate; mostly hypopneas; with sleep related hypoventilation by 2019 home polysomnogram. - 01/11/2019 Pre-study ESS 3. 0/4 RLS symptoms. Subclinical hyperthyroidism 05/09/2018 Peripheral edema 05/03/2018 Assessment & Plan (06/04/2024 4:36 PM EST): As above, encouraged increased compliance with furosemide. Continue with conservative measures including compression, elevation, and low-sodium diet. She has not noted to have any edema on exam today which is encouraging. Will obtain echocardiogram as above. Orders: Transthoracic echocardiogram (TTE) complete with PRN contrast, bubble, strain, and 3D order panel; Future Chronic shoulder pain 05/31/2017 CKD (chronic kidney disease) stage 3, GFR 30-59 ml/min 05/31/2017 Iron deficiency anemia due to chronic blood loss 08/18/2016 IBS (irritable bowel syndrome) 03/25/2016 Recurrent HSV (herpes simplex virus) 12/11/2015 Diabetes mellitus type 2 with neurological manif estations 08/01/2015 Overview (04/23/2024): A1C 6.5 09/28 transfer records Diverticulosis 05/20/2015 Tubular adenoma of colon 05/20/2015 Overview (04/23/2024): X1 on CN 06/2005 / neg 06/2010/ x1 06/2015 Coronary artery disease invo lving citizen [place] coronary artery of citizen [place] heart without angina pectoris 01/21/2015 Overview (04/23/2024): Cath in 09/2014: s/p Her cardiac catheterization showed a normal left main. There was mild disease in the LAD and circumflex. There is a 75% stenosis in the proximal right coronary artery. This was stented with a drug-eluting stent. Last Assessment & Plan: No ischemic symptoms, feeling quite well. Continue ASA, BB, statin, L AN Assessment & Plan (06/04/2024 4:36 PM EST): The patient has a history of coronary artery disease status post RCA stent in 2014; her main anginal symptom at the time of her stenting was dyspnea on exertion and she denies ever having significant chest pain. She has had several negative stress tests since. However, she has recently been using nitroglycerin rather frequently due to increased episodes of dyspnea on exertion and this has been providing relief of her symptoms. She does have a history of diastolic heart failure which may also be contributing as discussed above. She also has a history of COPD for which she is prescribed supplemental oxygen with exertion and at night; she reports that her inhalers and nebulizer did not provide her with any relief of her symptoms. She has also noted ongoing episodes of tachycardia though her heart rate appears improved at today's visit and her ECG shows no concerning changes. Overall, I have concern for potential underlying ischemia; she is amenable to updating an ischemic workup with a regadenoson nuclear stress test. We will not make any changes to her current medical therapies today; she will continue with metoprolol, Imdur, atorvastatin, and daily ASA. Given improvement with sublingual nitroglycerin, may consider increasing Imdur in the near future, but I will defer this at this time given the potential for other underlying disease processes that may be contributing to her shortness of breath. The patient was advised to seek emergent medical attention by calling 911 if they were to develop severe dyspnea, chest pain that did not resolve with rest or nitroglycerin, or if they were to faint. Orders: ECG 12 lead Nuclear stress test with myocardial perfusion; Future Transthoracic echocardiogram (TTE) complete with PRN contrast, bubble, strain, and 3D order panel; Future Lipid panel with reflex to direct LDL; Future Hyperlipidemia 07/18/2014 Overview (04/23/2024): Last Assessment & Plan: Last lipid panel 07/10 total cholesterol 146, HDL 50, LDL 62. Goal LDL goal is less than 70. Continue statin. Assessment & Plan (06/04/2024 4:36 PM EST): LDL goal for this patient who has a history of coronary artery disease as well as diabetes is less than 55. She reports that she had stopped her atorvastatin for approximately 1 month prior to having her most recent lipid panel completed in March 2024 which showed an LDL of 119. She was concerned that this may be causing her some muscle cramping but states that it did not improve while she was off medication and she reports having restarted her statin approximately 1 month ago. I have requested that she update a lipid panel in 1 approximately month and we will continue to readdress this as indicated. Continue atorvastatin 80 mg daily. Orders: Lipid panel with reflex to direct LDL; Future Solitary pulmonary nodule 11/08/2013 Overview (04/23/2024): 4mm, followed for 2 yrs w/o change Anxiety 06/18/2013 Allergic rhinitis 07/17/2012 Asthma 07/17/2012 Gastroparesis 07/17/2012 Overview (04/23/2024): Dr. Stephenson at [address] [place] [address] GERD (gastroesophageal reflux disease) 3 Insomnia 07/17/2012 Primary hypertension 07/17/2012 Overview (04/23/2024): Last Assessment & Plan: Controlled, continue current regimen. Assessment & Plan (06/04/2024 4:36 PM EST): Blood pressure is favorable on current medical therapy; continue metoprolol, furosemide, and isosorbide. We will update a metabolic panel in approximately 1 month. Encounters Date Type Department Care Team Description 07/22/2024 2:45 PM EST - 07/22/2024 11:59 PM EST Hospital Encounter [address] [phone] Pneumonia of both lower lobes due to infectious organism Discharge Disposition: Home or Self Care 07/18/2024 Telephone Adult Medicine [address] [phone] Amy Carlton LPN Fitting for DME (Faxed form from [facility]); Appointment 06/27/2024 10:30 AM EST Office Visit Adult Medicine [address] [phone] Pau Shultz PA Pneumonia of both lower lobes due to infectious organism (Primary Dx); Nausea and vomiting, unspecified vomiting type; Diarrhea, unspecified type; Type 2 diabetes mellitus with stage 3a chronic kidney disease, without long-term current use of insulin ([facility]/HCC) 06/24/2024 Telephone Adult Medicine [address] [phone] Kathy Perez MD Hospital Follow-up 06/04/2024 3:10 PM EST Office Visit [facility] [address] [address] Elisa Romero NP Chronic heart failure with preserved ejection fraction (CMS/HCC) (Primary Dx); Coronary artery disease involving citizen [place] coronary artery of citizen [place] heart without angina pectoris; Peripheral edema; SOTELO (dyspnea on exertion); Hyperlipidemia, unspecified hyperlipidemia type; Primary hypertension; Tachycardia 05/13/2024 11:59 PM EST Anesthesia Event [facility] [address] [place] [address] Stacy Martinez MD from Last 3 Months Immunizations Name Administration Dates Next Due Influenza trivalent, 0.5mL ( Fluad) 65yo and older 03/26/2024,02/28/2023,03/28/2022,03/22,03/13/2019,03/02/2018,03/01/2017 ,03/30/2016 Influenza, Unspecified 03/10/2022,2020,02/24/2020,04/06,05/06/2014,03/05/2013 ZULLY/Bob SARS-CoV-2 COVID -19, vector-nr, rS-Ad26, preservative free 09/09/2020 Pfizer (ages 12 & older) Biv alent, COVID-19 05/24/2022 Pfizer SARS-CoV-2 COVID-19, mRNA, LNP-S, preservative free 04/28/2021 Pneumococcal conjugate 13 va lent (Prevnar 13, PCV13) 2mo and older 03/30/2016 Pneumococcal polysaccharide 23 valent (Pneumovax 23) 2yo and older 04/28/2014,03/05/2013,08/01/2012 Td Tetanus diptheria (Tdvax) 7yo and older 01/16/2023 Tdap Tetanus diptheria acell ular pertussis (Boostrix; Adacel) 7yo and older 08/01/2012 Surgical History Surgery Date Site/Laterality Comments APPENDECTOMY PROCEDURE:APPENDECTOMY TUBAL LIGATION PROCEDURE:TUBAL LIGATION OTHER SURGICAL HISTORY 2007 PROCEDURE: [facility] CORRECTION [facility]; COMMENT: FOOT SURGERY PROCEDURE: HISTORICAL FOOT SURGERY; COMMENT: 18 y/o bunionectomy UPPER GASTROINTESTINAL ENDOSCOPY 03/22/2012 PROCEDURE: [facility] UPPER GI ENDOSCOPY PERFORMED; COMMENT: Normal study UPPER GASTROINTESTINAL ENDOSCOPY 11/27/2015 PROCEDURE: [facility] UPPER GI ENDOSCOPY PERFORMED; COMMENT: Gastritis and polyp. Normal Esophagus and duodenum. UPPER GASTROINTESTINAL ENDOSCOPY 2012 PROCEDURE: [facility] UPPER GI ENDOSCOPY PERFORMED; COMMENT: FOR GERD BLADDER SUSPENSION 05/29/2018 PROCEDURE: HISTORICAL BLADDER SUSPENSION CYSTOSCOPY 03/18/2019 PROCEDURE: HISTORICAL CYSTOSCOPY; COMMENT: Normal COLONOSCOPY 06/2005 PROCEDURE: HISTORICAL COLONOSCOPY; COMMENT: tubular adenoma COLONOSCOPY 06/2010 PROCEDURE: HISTORICAL COLONOSCOPY; COMMENT: negative COLONOSCOPY 12/16/2015 PROCEDURE: HISTORICAL COLONOSCOPY; COMMENT: tubular adenoma CARDIAC CATHETERIZATION 09/26/2014 PROCEDURE: HISTORICAL CARDIAC CATH; COMMENT: RCA stent Dr David REYNAGA UPPER GASTROINTESTINAL ENDOSCOPY 08/18/2004 PROCEDURE: [facility] UPPER GI ENDOSCOPY PERFORMED FOOT SURGERY 12/2013 PROCEDURE: HISTORICAL FOOT SURGERY; COMMENT: for second toe arthroplasty SHOULDER SURGERY Left PROCEDURE: HISTORICAL SHOULDER SURGERY; COMMENT: Arthroscopy with Dr. Berg KNEE SURGERY Left PROCEDURE: HISTORICAL KNEE SURGERY; COMMENT: Arthroscopy Medical History Medical History Date Comments Hypertension DX:Hypertension COPD (chronic obstructive pu lmonary disease) ([facility]) DX:COPD (chronic obstructive pulmonary disease) ([facility]) Heart failure ([facility]) DX:Heart failure ([facility]) Diabetes mellitus ([facility]) DX:D iabetes mellitus ([facility]) Asthma 07/17/2012 DX:Asthma HTN (hypertension) 07/17/2012 DX:HTN (hyper tension) Insomnia 07/17/2012 DX:Insomnia GERD (gastroesophageal reflu x disease) 07/17/2012 DX:GERD (gastroesophageal re flux disease) Allergic rhinitis 07/17/2012 DX:Allergic rh initis Gastroparesis 07/17/2012 DX:Gastroparesis Osteoarthritis DX:Osteoarthriti s Anxiety 06/18/2013 DX:Anxiety Solitary pulmonary nodule 11/08/2013 DX:Swetha itary pulmonary nodule; COMMENT: 4mm, followed for 2 yrs w/o change Hyperlipidemia 07/18/2014 DX:Hyperlipidemi a Diverticulosis 05/20/2015 DX:Diverticulosi s Diabetes mellitus type 2 wit h neurological manifestations ([facility]) 08/01/2015 DX:Diabetes abby itus type 2 with neurological manifestations ([facility]); COMMENT: A1C 6.5 09/28 transfer records Gastric ulcer, acute 11/2015 DX:Gastric ulcer, acute; COMMENT: iron related gastritis Tubular adenoma of colon 05/20/2015 DX:Tubu lar adenoma of colon; COMMENT: X1 on CN 06/2005 / neg 06/2010/ x1 06/2015 Syncope DX:Syncope Family History Medical History Relation Name Comments Other: cardiomegaly Mother ASTHMA, CHF Relation Name Status Comments Father Mother Social History Tobacco Use Types Packs/Day Years [...] file Not on file Not on file Obstetrics History Last Filed Vital Signs Vital Sign Reading [...] (182 lb) 06/27/2024 10:33 AM EST Height 160 cm (5' 3 ) 06/04/2024 3:27 PM EST Body Mass Index 32.24 06/04/2024 3:27 PM EST Plan of Treatment Upcoming Encounters Date Type Department Care Team (Late st Contact Info) Description 07/17/2024 11:59 PM EST Anesthesia Event [facility] [address] [place] [address] Tiffany Gilmore MA 07/30/2024 9:30 AM EST Hospital Encounter [facility] [address] [place] [address] Marcus Murcia DO [address] [address] 07/30/2024 1:15 PM EST Office Visit Adult Medicine [address] [phone] Kathy Perez MD [address] [place] [phone] 08/06/2024 8:30 AM EST Ancillary Procedure [facility] [address] [address] 08/27/2024 11:00 AM EDT Ancillary Procedure [facility] [place] [address] [address] 10/03/2024 9:50 AM EDT Office Visit [facility] [place] [address] [phone] Kameron Freeman MD [address] [address] Health Maintenance Due Date Last Done Comments Zoster Vaccines (1 of 2) 1994 Osteoporosis Screening (Bone Density Screening) 05/28/2022 Social Influencers of Health Screening 05/28/2022 COVID-19 Vaccine ( season) 2024 05/02/2023, 05/24/2022, 04/28/2021, Additional history exists Diabetes: Blood Sugar Control Test (HGBA1C) 09/24/2024 03/26/2024, 03/26/2024, 07/25/2021 Diabetes: Annual Retina Eye Exam 11/27/2024 11/28/2023 Diabetes: Annual Foot Exam 12/03/2024 12/04/2023 Depression Screening 03/26/2025 03/26/2024 Diabetes: Annual Urine Albumin-Creatinine Ratio (uACR) 03/26/2025 03/26/2024 Diabetes: Annual GFR (Glomerular Filtration Rate) 03/26/2025 03/26/2024, 03/26/2024, 07/28/2021, Additional history exists Falls Risk Assessment 03/26/2025 03/26/2024 Hypertension/CHF/CAD Annual BMP Blood Test 03/26/2025 03/26/2024, 03/26/2024, 07/28/2021, Additional history exists Cholesterol Screening (Lipid Panel) 03/26/2029 03/26/2024, 03/26/2024 DTaP,Tdap,and Td Vaccines (3 - Td or Tdap) 01/16/2033 01/16/2023, 08/01/2012 Hepatitis C Screening Completed 01/18/2016 Pneumococcal Vaccine: 65+ Years Completed 04/20/2023, 03/30/2016, 04/28/2014, Additional history exists RSV Immunization Patients 60+ Years Old Completed 04/20/2023 Influenza Vaccine Completed 03/26/2024, , 03/28/2022, Additional history exists HIB Vaccines Aged Out No longer eligi ble based on patient's age to complete this topic HPV Vaccines Aged Out No longer eligi ble based on patient's age to complete this topic Hepatitis A Vaccines Aged Out No long er eligible based on patient's age to complete this topic Hepatitis B Vaccines Aged Out No long er eligible based on patient's age to complete this topic IPV Vaccines Aged Out No longer eligi ble based on patient's age to complete this topic MMR Vaccines Aged Out No longer eligi ble based on patient's age to complete this topic Meningococcal ACWY Vaccine Aged Out N o longer eligible based on patient's age to complete this topic RSV Immunization Patients Under 20 months Aged Out No longer eligible based on patient's age to complete this topic Varicella Vaccines Aged Out No longer eligible based on patient's age to complete this topic Procedures Procedure Name Priority Date/Time Associated Diagnosis Comments XR CHEST 2 VIEWS Routine 07/22/2024 2:52 PM EST Pneumonia of both lower lobes due to infectious organism ECG 12-LEAD Routine 06/04/2024 3:33 PM EST Coronary artery disease involving [place] coronary artery of citizen [place] heart without angina pectoris DEPRESSION SCREENING Routine 03/26/2024 FALLS RISK ASSESSMENT Routine 03/26/2024 URINE ALBUMIN CREATININE RATIO Routine 03/26/2024 ANNUAL BMP BLOOD TEST Routine 03/26/2024 HEMOGLOBIN A1C Routine 03/26/2024 LIPID PANEL Routine 03/26/2024 DIABETES FOOT EXAM Routine 12/04/2023 DIABETES EYE EXAM Routine 11/28/2023 HEPATITIS C SCREENING Routine 01/18/2016 from Last 3 Months or Most Recently Relevant to Health Maintenance Results * XR Chest 2 Views (07/22/2024 [...] Signed Date: 07/22/2024 17:44 ET Workstation ID: [id number] Transcribed By: Self Edit Transcribed Date: 07/22/2024 17:42 ET Narrative 07/22/2024 5:44 PM EST HISTORY[place] [facility] 4 [place] f.u TECHNIQUE: PA and lateral radiographs of the chest COMPARISON: Chest radiograph from 06/23/2023 FINDINGS: There is a normal cardiomediastinal silhouette. ??Atherosclerosis of the thoracic aorta. ??Increased airspace opacities within the right lower lung zone. ??Mild degenerative changes of the thoracic spine. Procedure Note Moo Coyle MD - 07/22/2024 HISTORY: [place] [facility] [place] 4 week f.u TECHNIQUE: PA and lateral [...] Signed Date: 07/22/2024 17:44 ET Workstation ID: [id number] Transcribed By: Self Edit Transcribed Date: 07/22/2024 17:42 ET Pau LOPEZ IMG XR PROCEDURES * ECG 12 lead (06/04/2024 3:33 PM EST) [facility] Ventricular Rate ECG 78 BPM GEMUSE Atrial Rate 78 BPM GEMUSE P-R Interval 158 ms GEMUSE QRS Duration 74 ms GEMUSE Q-T Interval 380 ms GEMUSE QTc 433 ms GEMUSE P Wave [place] 66 degrees GEMUSE R [place] 35 degrees GEMUSE T [place] 35 degrees GEMUSE ECG Interpretation Normal sinus rhythm Normal ECG No previous ECGs available Confirmed by Jennifer FREEMAN JAY ([id number]) on 06/04/2024 4:15:54 PM GEMUSE 06/04/2024 3:33 PM EST 06/04/2024 4:15 PM EST Elisa Romero [employer]AT[employer] PROFESSIONAL ECG ORDERABLE S GEMUSE * Urine Albumin Creatinine Ratio (03/26/2024) [facility] Urine Albumin Creatinine Ratio Abstracted Historical Provider [facility] Annual BMP Blood Test (03/26/2024) [facility] Annual BMP Blood Test Abstracted Historical Provider [facility] * Falls Risk Assessment (03/26/2024) [facility] Falls Risk Assessment Abstracted Historical Provider [facility] Depression Screening (03/26/2024) [facility] Depression Screening Abstracted Historical Provider [facility] Hemoglobin A1c (03/26/2024) [facility] Hemoglobin A1C 6.5 6.5 % Blood Venous blood specimen / Unknown Historical Provider LAB BLOOD ORDERAB LES * (ABNORMAL) Lipid panel (03/26/2024) [facility] LDL/HDL Ratio 5(A) 0 - 4 Triglycerides 190(A) 0 - 150 mg/dL Cholesterol 202(A) 0 - 200 mg/dL HDL 45 40 mg/dL LDL Cholesterol 119(A) 0 - 100 mg/dL Blood Venous blood specimen / Unknown Historical Provider LAB BLOOD ORDERAB LES * Diabetes Foot Exam (12/04/2023) [facility] Diabetes: Annual Foot Exam Abstracted Historical Provider [facility] * Diabetes Eye Exam (11/28/2023) [facility] Diabetes: Annual Retina Eye Exam Abstracted Comment:External Completion of test per patient (Patient reports normal results) Historical Provider [facility] * Hepatitis C Screening (01/18/2016) [facility] Hepatitis C Screening Abstracted Historical Provider [facility] [employer] from Last 3 Months or Most Recently 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
--- NOTE | 2024-07-23 10:33 | MHC.OFFWIV ---
Intake Vital Signs 07/23/24 10:42 BP 120/82 Blood Pressure Location Lt brachial Position Sitting Pulse 89 Pulse Source Pulse Oximeter Pulse Oximetry (%) 93 Oxygen Delivery Method Room Air Intake Visit Reasons: EP-UTI, lt neck pain, rt arm pain Intake Note: Patient there for left arm and neck pain, she states she usually gets injections but has not had one since December. Patient Tobacco Use Status: Former Tobacco user Allergies amoxicillin [Augmentin] Allergy (Mild, Verified 07/23/24 10:41) Rash clavulanic acid [From Augmentin] Allergy (Mild, Verified 07/23/24 10:41) RASH Do you need a note to return to daycare/school/sports/work: No HPI HPI Comments History of Present Illness Details History of Present Illness - The patient is a 78-year-old female presenting with c/o malodorous urine, pain with urination and increased frequency of urination. - Previously treated with Macrobid on 07/11 but reports persistent malodorous urine, indicating possibly unresolved infection. - No hematuria or fever noted, but frequent urination and burning sensation persist. - She also reports chronic back pain exacerbated since her last injection in December, awaiting further pain management on 07/30. Physical Exam General: Cooperative, healthy appearing, comfortable, no acute distress and well developed Orientation: Patient oriented x3 Limitations: No limitations Head: Normal to inspection Ears: Hearing grossly normal bilaterally Nose: Normal Nxternal nose present Face and sinus: ormal facial exam Eyes: Appearance normal, both eyes and all related structures Neck: Normal visual inspection and Yes full ROM Respiratory: Normal respiratory effort and able to speak in complete sentences. Skin: No rashes or lesions noted Neuro: Patient oriented x3 Extremities: Normal to inspection [facility] Medical History Chronic respiratory failure Asthma-COPD overlap syndrome Incontinence in female History of adenomatous polyp of colon Pneumonitis Bronchopneumonia Hypogammaglobulinemia Chronic rhinitis Dizziness Headache Hyperlipidemia HTN (hypertension) Diabetes COPD (chronic obstructive pulmonary disease) Surgical History S/P right coronary artery (RCA) stent placement H/O colonoscopy History of foot surgery History of toe surgery History of bunionectomy Family History Mother No problems noted. Father No problems noted. 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 services: Yes (grand daughter global supply chain director) Alcohol intake: never Patient Tobacco Use Status: Former Tobacco user Tobacco use type: Cigarette Advance Directives Date on File: 10/03/23 service: No Current occupational status: retired Sexual orientation: Straight/Heterosexual Gender identity: Female Review of Systems Const All systems reviewed & are unremarkable except as noted in HPI and below Assessment & Plan Assessment & Plan (1) Urinary tract infection: Code(s): N39.0 - Urinary tract infection, site not specified Qualifiers: Urinary tract infection type: acute cystitis Hematuria presence: without hematuria Qualified Code(s): N30.00 - Acute cystitis without hematuria Plan: The patient is prescribed Bactrim for seven days to address the unresolved symptoms of the Urinary Tract Infection UTI, although previous cx was negative. UA today is 2+ leuks, >50 WBCs, negative nitrites and negative blood. A urine culture is ordered to ensure correct antibiotic selection. Will call pt's PCP to advise that she has had c/o 4 UTI's in the last year but all are culture negative, may need Urology referral. Unclear what other visits she may have had at other urgent cares or her PCP office so likey more than this. Patient was informed and verbally consented to the use of an ambient scribe for clinic note documentation during this visit. (2) Back pain: Code(s): M54.9 - Dorsalgia, unspecified Qualifiers: Back pain location: low back pain Chronicity: chronic Back pain laterality: unspecified Sciatica presence: without sciatica Qualified Code(s): M54.50 - Low back pain, unspecified; G89.29 - Other chronic pain Plan: Efforts to manage her chronic back pain include continuation of NSAIDs and await the pain management consultation on July 30 for further evaluation and treatment adjustments. Medications: New sulfamethoxazole-trimethoprim 800-160 mg (Bactrim DS) 1 tab PO Q12H 7 days 14 tabs 0RF Coding Level of Care Code New Pt Level 4 (05677) Diagnoses Acute cystitis without hematuria N30.00 Urinary tract infection type: acute cystitis Hematuria presence: without hematuria Chronic low back pain without sciatica, unspecified back pain laterality M54.50; G89.29 Back pain location: low back pain Chronicity: chronic Back pain laterality: unspecified Sciatica presence: without sciatica
[2024-07-23 10:42] VITALS: BP 120/82; PULSE 89; O2SAT 93
== END 2024-07-23 10:52 | disposition home or self-care (01) ==
PROVIDERS: PCP Internal Medicine; Visit Provider Physician Assistant
DX: N30.00 Acute cystitis without hematuria (principal); M54.50 Low back pain, unspecified; G89.29 Other chronic pain

== ENCOUNTER 2024-07-23 09:15 | Outpatient (REF) | payer OTHER, SELFPAY ==
[2024-07-23 10:18] LABS: Appearance Urine Clear; Color Urine Yellow; Glucose Urine UA Negative (Negative); Leukocyte Esterase Urine Moderate (2+) (Negative); Nitrite Urine Negative (Negative); Specific Gravity - Urine 1.015 (1.005-1.025); UMIC TRIGGER UACC YES; Urine Blood Negative (Negative); Urine Ketones Negative (Negative); Urine Protein Negative (Neg-Trace)
[2024-07-23 10:23] LABS: Bacteria Urine None Seen (None Seen); Hyaline Casts Urine 0-2 /LPF (0-2); RBC Urine 0-2 /HPF (0-2); Squamous Epithelial Cell Urine 0-2 /HPF (0-2); UACC Culture Trigger YES; WBC Urine >50 /HPF (0-5)
== END 2024-07-23 09:16 | disposition home or self-care (01) ==
LOC: HO.HMGCLDS 09:15
PROVIDERS: PCP Internal Medicine; Visit Provider Nurse Practitioner Family
DX: N30.00 Acute cystitis without hematuria (principal); M54.50 Low back pain, unspecified; G89.29 Other chronic pain
CPT/HCPCS: 81001; 87086; 87088; 87186; 99212

== ENCOUNTER 2024-07-30 14:42 | Outpatient (AMB) | payer OTHER, SELFPAY ==
[2024-07-30 14:52] VITALS: BP 120/54; PULSE 86; O2SAT 93; BMI 32.0
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
== END 2024-07-30 15:14 | disposition home or self-care (01) ==
PROVIDERS: PCP Internal Medicine; Visit Provider Hospitalist
DX: J18.9 Pneumonia, unspecified organism (principal); J44.1 Chronic obstructive pulmonary disease with (acute) exacerbation; J31.0 Chronic rhinitis; K21.9 Gastro-esophageal reflux disease without esophagitis; D80.1 Nonfamilial hypogammaglobulinemia; J44.89 Other specified chronic obstructive pulmonary disease
CPT/HCPCS: 99214; G2211

== ENCOUNTER → 2024-07-30 14:42 | Outpatient (BNVA) | payer OTHER, SELFPAY | PROVIDERS: PCP Internal Medicine; Visit Provider Hospitalist | DX: J44.1 Chronic obstructive pulmonary disease with (acute) exacerbation (principal); J18.9 Pneumonia, unspecified organism; J31.0 Chronic rhinitis; J44.89 Other specified chronic obstructive pulmonary disease; D80.1 Nonfamilial hypogammaglobulinemia; K21.9 Gastro-esophageal reflux disease without esophagitis | CPT/HCPCS: 99212 ==

== ENCOUNTER 2024-08-30 15:13 | Outpatient (REF) | payer OTHER, SELFPAY ==
--- NOTE | ~2024-08-30 | CT_ITS ---
EXAMINATION: CT CHEST WITHOUT IV CONTRAST INDICATION: J18.9 - Pneumonia, unspecified organism COMPARISON: Comparison is made with the prior examination dated 06/30/2022. TECHNIQUE: Helical CT scan of the chest was performed without intravenous contrast. Coronal and sagittal reformatted images were generated and reviewed. This CT exam was performed with one or more of the following dose reduction techniques: automated exposure control, adjustment of the mA and/or kV according to patient size, use of iterative reconstruction technique. DLP: 226 mGy-cm CHEST: THYROID: The thyroid is unremarkable. LUNGS: There are mild emphysematous changes. Mild fibrotic changes are also noted at the peripheral aspect of the lungs. There are no airspace opacities consistent to suggest pneumonia. There are no pulmonary nodules. MEDIASTINUM: There is no mediastinal lymphadenopathy. YONI: Evaluation of the hilar regions is limited by lack of intravenous contrast material. CARDIOVASCULATURE: The heart is normal in size. There is no pericardial effusion. The thoracic aorta is normal in caliber. DEGREE OF CORONARY CALCIFICATION: severe PLEURA: There is no pleural effusion. No pneumothorax. MAIN AIRWAYS: The mainstem bronchi and proximal branches are patent. AXILLA: There is no axillary lymphadenopathy. BONES AND SOFT TISSUES: There is moderate to severe degenerative disc disease of the spine. UPPER ABDOMEN: The visualized portions of the liver, spleen, and adrenals have an unremarkable unenhanced appearance. CT/CT chest wo IV con IMPRESSION: Mild emphysema and fibrotic changes. No airspace opacities are seen to suggest pneumonia. Severe coronary arterial calcification. Electronically signed by: Deion Esparza MD 09/02/2024 08:38 AM EDT
--- OUTSIDE RECORDS SUMMARY | 2024-08-30 16:28 | XMS_ITS | Encounter Summary ---
Author Organization [facility] Address [address] [place] [address] Care Team Providers Care Print Graphic Designer Name Role Phone Kathy Perez MD Primary Care Prov ider Reason for Referral * Pain Management (Routine) - Pending Review Specialty Diagnoses / Procedures Referred By Contac t Referred To Contact Pain Medicine Diagnoses Radiculopathy, cervical region Procedures Injection epidural cervical without guidance Marcus Murcia DO [address] [address] Phone: tel: fax: Referral ID Status Reason Start Date Expiration Date V isits Requested Visits Authorized [id number] Pending Review 08/23/2024 08/23/2025 1 1 Reason for Visit * Pain Management (Routine) - Pending Review Specialty Diagnoses / Procedures Referred By Contac t Referred To Contact Pain Medicine Diagnoses Radiculopathy, cervical region Procedures Injection epidural cervical without guidance Marcus Murcia DO [address] [address] Phone: tel: fax: Referral ID Status Reason Start Date Expiration Date V isits Requested Visits Authorized [id number] Pending Review 08/23/2024 08/23/2025 1 1 Encounter Details Date Type Department Care Team (Latest Contact Info) Description 08/27/2024 10:04 AM EDT Hospital Encounter [facility] Pain Management [address] [place] [phone] Marcus Murcia DO [address] [address] Negro Velasco MD [address] [place] [address] Radiculopathy, cervical region Social History Tobacco Use Types Packs/Day Years Used Date Smoking Tobacco: Former Cigarettes 2 30.8 0 1958 - 07/17/1989 Smokeless Tobacco: Never Alcohol Use Standard Drinks/Week Comments No 0 (1 standard drink = 0.6 oz pur e alcohol) Interpersonal Safety Answer Date Record ed Physical Abuse 08/27/2024 Verbal Abuse 08/27/2024 Comments No Sex and Gender Information Value Date Recorded Sex Assigned at Female 07/25/2024 3:18 PM EST Legal Sex Female 2:37 AM EST Gender Identity Female 07/25/2024 3:18 PM EST Sexual Orientation Straight 07/25/2024 3: 18 PM EST documented as of this encounter Last Filed Vital Signs Vital Sign Reading Time Taken Comments Blood Pressure - - Pulse - - Temperature - - Respiratory Rate - - Oxygen Saturation - - Inhaled Oxygen Concentration - - Weight 81.6 kg (180 lb) 08/27/2024 9:27 AM EDT Height 162.6 cm (5' 4 ) 08/27/2024 9:27 AM EDT Body Mass Index 30.9 08/27/2024 9:27 AM EDT documented in this encounter Progress Notes * Elvira Carolina RN - 08/27/2024 10:30 AM EDT Problem: Cognitive:Periop Procedure - Minor Goal: Knowledge of disease or condition will improve 08/27/2024 1216 by Elvira Baumann RN Outcome: Progressing 08/27/2024 1215 by Elvira Baumann RN Outcome: Progressing Problem: Physical Regulation:Periop Procedure - Minor Goal: Ability to maintain clinical measurements within normal limits will improve 08/27/2024 1216 by Elvira Baumann RN Outcome: Progressing 08/27/2024 1215 by Elvira Baumann RN Outcome: Progressing Problem: Sensory: Acute Pain Goal: Pain level will improve or be tolerable Outcome: Progressing Goal: Ability to develop a pain control plan will improve Outcome: Progressing Problem: Cognitive: Acute Pain Goal: Expressions of feelings of enhanced comfort will increase Outcome: Progressing Problem: Patient Specific Problem: Acute Pain Goal: Patient Specific Outcome Outcome: Progressing Problem: Cognitive:Knowledge Deficit of Discharge Needs Goal: Expressions of a comfortable level of knowledge will increase Outcome: Progressing Goal: Will verbalize understanding of the information provided Outcome: Progressing Problem: Coping:Knowledge Deficit of Discharge Needs Goal: Family members' participation in the patient's care will improve Outcome: Progressing Goal: Evaluate level of support Outcome: Progressing Goal: Will identify appropriate support needs Outcome: Progressing Goal: Participation in decision-making will improve Outcome: Progressing Pt verbalized understanding of all d/c instructions documented in this encounter H&P Notes * Marcus Murcia DO - 08/27/2024 10:30 AM EDT Please refer to our office notes for complete details of history of present illness and physical examination. They were reviewed. No changes are reported. documented in this encounter Procedure Notes * Brown Celaya RN - 08/27/2024 10:30 AM EDT [phone] * Brown Celaya RN - 08/27/2024 10:30 AM EDT Complaining of headache, Dr. Velasco made aware, order received. * Brown Celaya RN - 08/27/2024 10:30 AM EDT States relief from headache after acetaminophen 1gm given. * Marcus Murcia DO - 08/27/2024 10:30 AM EDT Procedure performed: Left C7-T1 EDMAR Physician: Marcus Murcia DO Preop diagnosis: Cervical radiculitis Postop diagnosis: Same Anesthesia: MAC Procedure in detail: After informed consent was obtained patient was brought into the procedure room and placed in the prone position on the procedure table. Skin over cervicothoracic area was prepped and draped in usualsterile manner. Left C7-T1 interlaminar space was visualized utilizing fluoroscopy. After skin was a nesthetized with 1% lidocaine solution 4 inch 20-gauge Touhy epidural needle was introduced percutaneously and advanced toward the superior edge of the T1 lamina. Once the contact with the bone was reached, needle was gently redirected into the epidural space utilizing [id number] syringe. Once in place, needle placement was verified utilizing 2 cc of Isovue contrast solution. Excellent epidural spread was identified without evidence of vascular uptake. Total volume of 6 cc containing 40mg of triamcinolone and normal saline solution was injected after negative aspiration for blood andcerebrospinal fluid. Patient tolerated procedure very well without complications. Patient was transported to the postop area for observation. Eventually patient was discharged home in stable condition accompanied by the family. Postprocedural instructions were provided. Patient exposure was documented in the chart. documented in this encounter Plan of Treatment Upcoming Encounters Date Type Department Care Team (Late st Contact Info) Description 09/09/2024 12:30 PM EDT Ancillary Procedure [place] [address] [address] 10/03/2024 9:50 AM EDT Office Visit [place] [address] [phone] Kameron Zuñiga MD [address] [address] 01/28/2025 1:15 PM EDT Office Visit [address] [address] Kathy Perez MD [address] [place] [address] Scheduled Orders Name Type Priority Associated Diagnoses Orde r Schedule Injection epidural cervical without guidance Procedures Routine Radiculopathy, cervical region Once for 1 Occurrences starting 08/27/2024 until 08/27/2024 documented as of this encounter Visit Diagnoses Diagnosis Radiculopathy, cervical region Brachial neuritis or radiculitis nos documented in this encounter Administered Medications Inactive Administered Medications - up to 3 most recent administrations Medication Order MAR Action Action Date Dose Rate Site acetaminophen (TYLENOL) tablet 1,000 mg 1,000 mg, oral, Once, On Mon08/27/24 at 1045, For 1 dose, Preprocedure Given 08/27/2024 10:26 AM EDT 1,000 mg iopamidoL (ISOVUE-300) 300 mg iodine /mL (61 %) solution As needed, Starting on Mon08/27/24 at 1149, Intraprocedure Given 08/27/2024 11:49 AM EDT 2 mL lidocaine (XYLOCAINE) 1 % injection As needed, Starting on Mon08/27/24 at 1148, Intraprocedure Given 08/27/2024 11:48 AM EDT 3 mL triamcinolone acetonide (KENALOG-40) 40 mg/mL injection As needed, Starting on Mon08/27/24 at 1149, Intraprocedure Given 08/27/2024 11:49 AM EDT 40 mg documented in this encounter Orders Medications Ordered That Saad ht Not Have Been Administered Count Last Ordered Date First Ordered Date acetaminophen (TYLENOL) tablet 1,000 mg 1 0 08/27/2024 Discharge Count Last Ordered Date First Orde red Date DISCHARGE PATIENT 1 08/27/2024 documented in this encounter Care Teams Print Graphic Designer Relationship Specialty Start Date End Date Kathy Perez MD [address] [place] [address] PCP - General Internal Medicine 07/22/24 documented as of this encounter
--- OUTSIDE RECORDS SUMMARY | 2024-08-30 16:29 | XMS_ITS ---
Author Name [facility] Organization Unknown Encounters Encounter Type Encounter Reason Primary Diagnosis Location Date Inpatient Hypotension, unspecified [place] [facility] 07/24/2021 Care Team Organization Name Specialty Phone Email Start Date End Da te [facility] Primary Care 07/24/2021 07/28/2021 [facility] Primary Care 07/24/2021 07/28/2021 [facility] 07/24/2021 07/24/2021 [facility] 07/24/2021 02/05/2024
--- OUTSIDE RECORDS SUMMARY | 2024-08-30 16:29 | XMS_ITS | Data Portability ---
Author Organization [employer] Address [address] [place] [address] Care Team Providers Care Audio Visual Specialist Name Role Phone [facility] Referring Provider [facility] OTHER Assessment Encounter Date Assessment Date Assessment LastModified by Organization Details LastModified Time 04/20/2024 04/20/2024 I provided real -time medical direction via phone for this encounter and was available for additional phone-based assistance as needed. I have reviewed and agree with the Assessment and Plan as documented by the Setter Machine. Patient given the opportunity to ask questions. [...] on metoprolol to for rate control. Per gunsmith apprentice on the scene, vital signs are stable [...] have any evidence of volume overload per gunsmith apprentice on the scene. She has no evidence [...] Modified Time Details Appointments None recorded. Lab rapid SARS CoV 2 Ag, QL IA, respiratory specimen 2022 023 [email or web address], [address] [place] [address], [phone], 3 20:04:39 rapid flu (A+B) 2022 023 [email or web address], [address] [place] [address], [phone], 3 20:04:40 rapid strep group A, throat 2022 023 [email or web address], [address] [place] [address], [phone], 3 20:04:38 culture, urine 2022 023 [facility] (Centralized Electronic Ordering - All Locations), Patient Can Go To The Location Of Their Choice, [id number] 3 07:41:06 Referral None recorded. Procedures None recorded. Surgeries None recorded. Imaging None recorded. Medication Orders Levaquin 500 mg tablet [email or web address] [place] [address], [address] [place] [address], [address], 13:34:52 Patient TargetsNo targets recorded. Patient InstructionsNo instructions recorded. Reason for Referral None Reported. Results Created Date Observation Date Name Description Value Unit Range Abnormal Flag Note LastModifiedBy Organization Detail LastModifiedTime 09/28/1909/27/2022 URINE CULTU RE specimen description URINE Not Available [facility] (Centralized Electronic Ordering - All Locations) Patient Can Go To The Location Of Their Choice, [facility] 09/29/2022 07:41:06 09/28/1909/27/2022 URINE CULTU RE special requests NONE Not Available [facility] (Centralized Electronic Ordering - All Locations) Patient Can Go To The Location Of Their Choice, [facility] 09/29/2022 07:41:06 09/28/1909/29/2022 URINE CULTU RE culture NO GROWTH Not Available [facility] (Centralized Electronic Ordering - All Locations) Patient Can Go To The Location Of Their Choice, [facility] 09/29/2022 07:41:06 09/28/1909/29/2022 URINE CULTU RE report status FINAL 2022 Not Available [facility] (Centralized Electronic Ordering - All Locations) Patient Can Go To The Location Of Their Choice, [facility] 09/29/2022 07:41:06 06/17/2006/17/2023 rapid strep group A, throa t Strep negati ve Not Available [facility] ed [address] [place] [address], [phone], 06/17/2023 20:04:20 06/17/20 23 06/17/2023 rapid flu (A+B) Flu negati ve Not Available [facility] ed [address] [place] [address], [phone], 06/17/2023 20:04:18 06/17/20 23 06/17/2023 rapid SARS CoV 2 Ag, QL IA, respi rator y speci men rapid SARS CoV 2 Ag, QL IA, respiratory specimen negati ve Not Available [facility] ed [address] [place] [address], [phone], 06/17/2023 20:04:15 Result Notes None recorded. Medical Equipment None Reported. Allergies Allergen ID Allergen Name Allergen Category Reaction Reaction Severity Criticality Documentation Date Start Date Code Code System Note Provider Name and Address Organization Details Recorded Time 7839 Product containin odilon penicilli n (product) medicatio n Not available Not available Not available 04/16/2024 58085 8001 SNOMED Not Available [facility] - production 4 [...] Updated DateTime 3 16 /min 162.56 cm 33747.5 6 g 90 /min 96 % 96 % 99.5 [degF] 143 mm[Hg] 68 mm[Hg] Not Available [facility] - production 3 19:48:26 Date Recorded Body weight Respiratory rate Heart rate Body height Body temperature Oxygen saturation Oxygen saturation in Arterial blood by Pulse oximetry Systolic blood pressure Diastolic blood pressure Provider Name and Address Organization Details Last Updated DateTime 4 49002.5 6 g 18 /min 111 /min 162.56 [...] % 98 % 95.7 [degF] 73 /min 41877.5 6 g 16 /min 125 mm[Hg] 67 [...] 9333 Praveen Valdovinos MD Main - [facility] [address] [place] [phone] 09/27/2022 13:30:25 09/29/2022 10:29:50 Acute urinary tract infection 217056163 N39.0 09802 Petra Elmore MD Main - [facility] [address] [place] [phone] 06/17/2023 19:48:24 06/20/2023 12:24:39 Upper respiratory infection 37953336 J06.9 Evaluation in the field was performed by my gunsmith apprentice colleague, as noted above, I provided real-time [...] shortness of breath, cough, chest pain, fever. [address] Jackie Ardon MD Main - [address] [phone] 04/20/2024 14:23:19 04/20/2024 19:15:29 Decreased urine output 852639086 R34 Chronic ki dney disease stage 3 166645008 N18.30 Tachycardia 5082912 R00. 0 Health Concerns Section Related Observation LastModified by Organization Detai ls LastModified Time None Recorded Concern Status LastModified by Organization Details LastModified Time None Recorded Advance Directives Directive None Recorded Payers Encounter Date Sequence Insurance Name Policy Number Policy Wagner Covered Member ID Wagner Member ID Guarantor Name 09/27/2022 1 [facility] - DOS PRIOR TO 2022 - DUAL ELIGIBLE (MEDICARE REPLACEMENT/ADV ANTAGE - HMO) Shea Pares [id number] Shea J Pares 06/17/2023 1 [facility] - DOS ON OR AFTER 2022 - DUAL ELIGIBLE - DETENTION OPTIONS AND ONE CARE (MEDICARE REPLACEMENT/ADV ANTAGE - HMO) Shea Pares [id number] Shea J Pares 04/20/2024 1 [facility] - DOS ON OR AFTER 2022 - DUAL ELIGIBLE - DETENTION OPTIONS AND ONE CARE (MEDICARE REPLACEMENT/ADV ANTAGE - HMO) Shea Pares [id number] Shea J Pares Notes Date Note Type [...] Member denies F/c/n/v/d Praveen Valdovinos MD [address] [facility],[address], [place], [address], [employer] 09/27/2022 13:35:12 023 text/ht ml HPI: Member [...] process visit. ................................... ................................... ................................... ................................... . Setter Machine Note From Max Clemens: Pt reports dry [...] ................................... . Disposition: Fulfilled Petra Elmore MD [address] [place] [address],[address], [place], [phone], [employer] 06/17/2023 20:04:49 024 text/ht ml HPI: mbr with multiple complaints, states experienced SOB last night where she had decided to take a diuretic, denies any Urine output at this time questioning retention , but does mention changing briefs multiple times over night, denies any Abdominal pain pressure or discomfort, no LE edema CP/N/V. per mbr B/P 153/78 HR 111. mbr requesting [facility] for evaluation.Protocol Used: Urinary SymptomsProtocol-Based Disposition: Consider [facility], THEATRE PROGRAM DIRECTOR, MD/INFRASTRUCTURE DEVELOPER triage, PCP, or ED /Urgent Care Visit [...] Comments: Reviewed HPI SEGMD: Visit closed by [facility] end of shift before medic note transferred into el?, so I entered it below: SummarySmartcare visit [...] this was present yesterday in visit with INFRASTRUCTURE DEVELOPER as well. Pt afebrile. Lung sounds clear bilaterally. Pt concerned about possible cloudy urine as well. Pt was unable to provide urine specimen for testing. Consulted with [facility] Dr. Casas who advised continuing to monitor symptoms. Reviewed red flags for ED. Pt education provided.Services ProvidedPatient EducationDispositionFulfilledWas patient sent to ED?[facility] consulted on the case?Yes - Solange Casas MD [address] [facility],[address], [place], [address], [place] [employer] 04/23/2024 15:04:20 OBGyn Episode No OBEpisode recorded.
--- OUTSIDE RECORDS SUMMARY | 2024-08-30 16:29 | XMS_ITS | Encounter Summary ---
Author Organization [facility] Address [address] [place] [address] Care Team Providers Care Circle Shear Operator Name Role Phone Kathy Perez MD Primary Care Prov ider Reason for Referral * Pain Management (Routine) - Pending Review Specialty Diagnoses / Procedures Referred By Contac t Referred To Contact Pain Medicine Diagnoses Radiculopathy, cervical region Procedures Injection joint facet cervical/thoracic single level Marcus Murcia DO [address] [address] Phone: tel: fax: Referral ID Status Reason Start Date Expiration Date V isits Requested Visits Authorized [id number] Pending Review 07/15/2024 07/15/2025 1 1 Reason for Visit * Pain Management (Routine) - Pending Review Specialty Diagnoses / Procedures Referred By Contac t Referred To Contact Pain Medicine Diagnoses Radiculopathy, cervical region Procedures Injection joint facet cervical/thoracic single level Marcus Murcia DO [address] [address] Phone: tel: fax: Referral ID Status Reason Start Date Expiration Date V isits Requested Visits Authorized [id number] Pending Review 07/15/2024 07/15/2025 1 1 Encounter Details Date Type Department Care Team (Latest Contact Info) Description 07/30/2024 8:12 AM EST - 07/30/2024 11:59 PM EST Hospital Encounter [facility] Pain Management [address] [place] [address] Marcus Murcia DO [address] [address] Negro Velasco MD [address] [place] [address] Josiane Miller CRNA [address] [place] [address] Radiculopathy, cervical region Discharge Disposition: Home or Self Care Social History Tobacco Use Types Packs/Day Years Used Date Smoking Tobacco: Former Cigarettes 2 30.8 0 1958 - 07/17/1989 Smokeless Tobacco: Never Alcohol Use Standard Drinks/Week Comments No 0 (1 standard drink = 0.6 oz pur e alcohol) Interpersonal Safety Answer Date Record ed Physical Abuse 07/30/2024 Verbal Abuse 07/30/2024 Comments No Sex and Gender Information Value Date Recorded Sex Assigned at Female 07/25/2024 3:18 PM EST Legal Sex Female 2:37 AM EST Gender Identity Female 07/25/2024 3:18 PM EST Sexual Orientation Straight 07/25/2024 3: 18 PM EST documented as of this encounter Last Filed Vital Signs Vital Sign Reading Time Taken Comments Blood Pressure 147/66 07/30/2024 8:21 AM EST Pulse 97 07/30/2024 8:21 AM EST Temperature 36.1 ??C (96.9 ??F) 07/30/2024 8:21 AM ES T Respiratory Rate 16 07/30/2024 8:21 AM EST Oxygen Saturation 97% 07/30/2024 8:21 AM EST Inhaled Oxygen Concentration - - Weight 81.6 kg (180 lb) 07/30/2024 8:28 AM EST Height 162.6 cm (5' 4 ) 07/30/2024 8:28 AM EST Body Mass Index 30.9 07/30/2024 8:28 AM EST documented in this encounter Medications at Time of Discharge albuterol 2.5 mg /3 mL (0.083 %) [...] by mouth 1 (one) time each day. azelastine (ASTELIN) 137 mcg (0.1 %) nasal [...] MOUTH EVERY DAY 90 capsule 3 07/17/2024 furosemide (LASIX) 20 mg tablet Take 2 tablets (40 mg total) by mouth 1 (one) time each day if needed. isosorbide mononitrate (IMDUR) 30 mg 24 hr tablet TAKE 1 TABLET BY MOUTH EVERY DAY IN THE MORNING 90 tablet 3 05/09/2024 melatonin 10 mg tablet Take by mouth at bedtime. metoprolol tartrate (LOPRESSOR) 50 mg tablet Take 1 tablet (50 mg total) by mouth 2 (two) times a day. 180 tablet 1 05/02/2024 Oxygen Therapy (O2) gas Administer 2-3 L into affected nostril(s) at bedtime. [employer] plecanatide (Trulance) 3 mg tablet Take 1 tablet (3 mg total) by mouth 1 (one) time each day. 02/10/2023 atorvastatin (LIPITOR) 80 mg tablet Take 1 tablet (80 mg total) by mouth 1 (one) time each day. 90 tablet 3 07/30/2024 diclofenac (VOLTAREN) 1 % topical gel Apply [...] After use, clean tip and replace cap. fluticasone-umecl idinium-vilantero l (Trelegy Ellipta) 100-62.5-25 mcg inhaler Inhale by mouth. 11/04/2019 lidocaine (LIDODERM) 5 % patch Place 1 patch on the skin 1 (one) time each day. Apply for no more than 12 hours in any 24 hour period. 03/21/2024 metFORMIN XR (GLUCOPHAGE-XR) 500 mg 24 hr tablet TAKE 1 TABLET BY MOUTH EVERY DAY WITH BREAKFAST 90 tablet 1 05/31/2024 methocarbamoL (ROBAXIN) 500 mg tablet Take 1 tablet (500 mg total) by mouth 3 (three) times a day. PRN nitroglycerin (NITROSTAT) 0.[address] 1 tablet (0.4 mg total) under the tongue every 5 (five) minutes if needed for chest pain. IF NO RELIEF CALL 911 90 tablet 3 07/30/2024 predniSONE (DELTASONE) 10 mg tablet Take 1 tablet (10 mg total) by mouth 1 (one) time each day. 40 mg for 3 days. 30 mg for 3 days. 20 mg for 3 days. 10 mg for 3 days. Then discontinue. documented as of this encounter Discharge Disposition Disposition Code Departure Means Destination Home or Self Care documented in this encounter Procedure Notes * Brown Celaya RN - 07/30/2024 9:30 AM EST [id number] documented in this encounter Plan of Treatment Upcoming Encounters Date Type Department Care Team (Late st Contact Info) Description 09/09/2024 12:30 PM EDT Ancillary Procedure [facility] [address] [address] 10/03/2024 9:50 AM EDT Office Visit [facility] [address] [address] Kameron Zuñiga MD [address] [address] 01/28/2025 1:15 PM EDT Office Visit Adult Medicine [facility] [address] [place], [place] [phone] Kathy Perez MD 4 [place] [address] Scheduled Orders Name Type Priority Associated Diagnoses Orde r Schedule Injection joint facet cervical/thoracic single level Procedures Routine Radiculopathy, cervical region Once for 1 Occurrences starting 07/30/2024 until 07/30/2024 documented as of this encounter Procedures Procedure Name Priority Date/Time Associated Diagnosis Comments POCT GLUCOSE BLOOD Routine 07/30/2024 8: 23 AM EST documented in this encounter Results * POCT Glucose, blood (07/30/2024 8:23 AM EST) Glucose POCT 97 70 - 100 mg/dL 07/30/2024 8:23 AM EST [facility] Blood Capillary blood specimen / Unknown 07/30/2024 8:23 AM EST 07/30/2024 8:24 AM EST us July [facility] POINT OF CARE TEST DOCKED DEVICE UNSOLICITED RESULTS Final Result [facility] [address] [place] [address], documented in this encounter Visit Diagnoses Diagnosis Radiculopathy, cervical region Brachial neuritis or radiculitis nos documented in this encounter Orders Medications Ordered That Saad ht Not Have Been Administered Count Last Ordered Date First Ordered Date lactated Ringer's infusion 1 07/30/2024 sodium chloride 0.9 % flush 10 mL 2 025 documented in this encounter Care Teams Circle Shear Operator Relationship Specialty Start Date End Date Kathy Perez MD [address] [place] [address] PCP - General Internal Medicine 07/22/24 documented as of this encounter
--- OUTSIDE RECORDS SUMMARY | 2024-08-30 16:30 | XMS_ITS | Clinical Summary ---
Author Organization [facility] Address [address] [place] [address] Phone Care Team Providers Care Director Product Name Role Phone Kathy Perez MD Primary Care Prov ider Allergies Active Allergy Reactions Criticality Noted Date Comments Amoxicillin-Pot Clavulanate Rash Low 07/17/19 13 Medications ASPIRIN ORAL Take 81 mg by mouth [...] Wheezing or Shortness of Breath). 3 Active cholecalciferol (VITAMIN D-3) 50 mcg (2,000 [...] in any 24 hour period. 4 Active plecanatide (Trulance) 3 mg tablet [...] EVERY DAY 90 capsule 3 5 Active nitroglycerin (NITROSTAT) 0.[address] 1 tablet (0.4 mg total) under the tongue every 5 (five) minutes if needed for chest pain. IF NO RELIEF CALL 911 90 tablet 3 5 Active atorvastatin (LIPITOR) 80 mg tablet Take 1 tablet (80 mg total) by mouth 1 (one) time each day. 90 tablet 3 5 07/30/19 26 Active Active Problems Problem Noted Date Diagnosed [...] pain 11/18/2022 CHF (congestive heart failure) 11/18/2022 Assessment & Plan (07/30/2024 3:00 PM EST): No signs of exacerbation, no fluid overload. She follows regularly with cardiology. Encouraged to keep the appointments with the specialist. Continue medications as above. Hypertensive retinopathy 11/10/2021 Overview (04/23/2024): Dr. Martinez. [...] bilateral 12/18/2018 COPD (chronic obstructive pulmonary disease) Assessment & Plan (07/30/2024 3:00 PM EST): Recent exacerbation, was evaluated in the emergency. Started on prednisone. Currently stable. Supplemental oxygen dependent 12/10/2018 Obstructive sleep apnea 11/21/2018 Overview (04/23/2024): [facility] Home Sleep Apnea Test: Date 11/18/2018; Wt 192#; BMI 33; HAYLEY 16, AI 1; HI 14; Unclassified apneas 0; Obstructive apneas 10; Central apneas 0; Mixed apneas 0; hypopneas 126; average oxygen saturation 88% (lowest 73% with saturations <88% for 5% or more of study) [facility] Polysomnogram treatment study. Date 01/11/2019. Wt 195#; [...] disease) stage 3, GFR 30-59 ml/min 05/31/2017 Assessment & Plan (07/30/2024 3:00 PM EST): GFR around 50. Stable over the last year. Encouraged to avoid nephrotoxics, good control of diabetes and hypertension were discussed with the patient. Iron deficiency anemia due to chronic blood loss 08/18/2016 IBS (irritable bowel syndrome) 03/25/2016 Recurrent HSV (herpes simplex virus) 12/11/2015 Diabetes mellitus type 2 with neurological manif estations 08/01/2015 Overview (04/23/2024): A1C 6.5 09/28 transfer records Assessment & Plan (07/30/2024 3:00 PM EST): Good control of diabetes, A1C: 6.5. Patient will continue with yearly Podiatric and Ophthomologic evaluations. Continue Metformin. We will check a hemoglobin A1c. Patient will follow up in 6 months Orders: Hemoglobin A1c; Future Diverticulosis 05/20/2015 Tubular adenoma of colon 05/20/2015 Overview (04/23/2024): X1 on CN 06/2005 / neg 06/2010/ x1 06/2015 Coronary artery disease invo lving agdaagux coronary artery of agdaagux heart without angina pectoris 01/21/2015 Overview (04/23/2024): [...] than 70. Continue statin. Assessment & Plan (07/30/2024 3:00 PM EST): Given the patients cardiac risk profile, the patient requires an LDL cholesterol of less than 70. Last LDL was 119. Continue atorvastatin. She has pending repeat labs. I have instructed the patient on the principles of a low cholesterol diet and the importance of regular exercise. Assessment & Plan (06/04/2024 4:36 PM EST): [...] Gastroparesis 07/17/2012 Overview (04/23/2024): Dr. Stephenson at [address] [place] [address] GERD (gastroesophageal reflux disease) 3 Insomnia 07/17/2012 Primary hypertension 07/17/2012 Overview (04/23/2024): Last Assessment & Plan: Controlled, continue current regimen. Assessment & Plan (07/30/2024 3:00 PM EST): The patient's antihypertensive regimen is based on their underlying medical issues. At the time of this visit, the blood pressure is well controlled on furosemide, Imdur and metoprolol. The patient is instructed to follow a low sodium diet and to follow up in 6 months. Assessment & Plan (06/04/2024 4:36 PM EST): Blood pressure is favorable on current medical therapy; continue metoprolol, furosemide, and isosorbide. We will update a metabolic panel in approximately 1 month. Encounters Date Type Department Care Team Description 08/27/2024 11:33 AM EDT Anesthesia Event [facility] [address] [place] [address] Negro Velasco MD 08/27/2024 10:04 AM EDT Hospital Encounter [facility] [address] [place] [address] Marcus Murcia DO Chang, Daniel J, MD Radiculopathy, cervical region 08/27/2024 9:08 AM EDT - 08/27/2024 11:59 PM EDT Hospital Encounter [facility] [address] [place] [phone] Pain Discharge Disposition: Home or Self Care 08/13/2024 Telephone [facility] Cardiology [facility] [address] [place] [address] Kameron Zuñiga MD testing 07/30/2024 1:15 PM EST Office Visit Adult Medicine [address] [phone] Kathy Perez MD Diabetes mellitus type 2 with neurological manifestations ([facility]/HCC) (Primary Dx); Primary hypertension; Mixed hyperlipidemia; Stage 3a chronic kidney disease ([facility]/HCC); Chronic obstructive pulmonary disease, unspecified COPD type ([facility]/HCC); Congestive heart failure, unspecified HF chronicity, unspecified heart failure type ([facility]); Urinary incontinence, unspecified type 07/30/2024 8:20 AM EST Anesthesia Event [facility] [address] [place] [address] Negro Velasco MD Fox, Jillian, [place] 07/30/2024 8:12 AM EST - 07/30/2024 11:59 PM EST Hospital Encounter [facility] [address] [place] [address] Marcus Murcia DO Chang, Daniel J, MD Barnes, Tyanna R, CRNA Radiculopathy, cervical region Discharge Disposition: Home or Self Care 07/24/2024 9:30 AM EST Ancillary Procedure [facility] Cardiology [facility] [address] [place] [phone] Coronary artery disease involving agdaagux coronary artery of agdaagux heart without angina pectoris; SOTELO (dyspnea on exertion) 07/22/2024 2:45 PM EST - 07/22/2024 11:59 PM EST Hospital Encounter XRAY - [place] [id number] [place], [place] [phone] Pneumonia of both lower lobes due to infectious organism Discharge Disposition: Home or Self Care 07/18/2024 Telephone Adult Medicine [address] [phone] Amy Carlton LPN Fitting for DME (Faxed form from [facility]); Appointment 06/27/2024 10:30 AM EST Office Visit Adult Medicine [address] [phone] Pau Shultz PA Pneumonia of both lower lobes due to infectious organism (Primary Dx); Nausea and vomiting, unspecified vomiting type; Diarrhea, unspecified type; Type 2 diabetes mellitus with stage 3a chronic kidney disease, without long-term current use of insulin (CMS/HCC) 06/24/2024 Telephone Adult Medicine [address] [phone] Kathy Perez MD Hospital Follow-up 06/04/2024 3:10 PM EST Office Visit [facility] [address] [phone] Elisa Romero NP Chronic heart failure with preserved ejection fraction (CMS/HCC) (Primary Dx); Coronary artery disease involving agdaagux coronary artery of agdaagux heart without angina pectoris; Peripheral edema; SOTELO (dyspnea on exertion); Hyperlipidemia, unspecified hyperlipidemia type; Primary hypertension; Tachycardia 05/13/2024 11:59 PM EST Anesthesia Event [facility] [address] [place] [address] Stacy Martinez MD from Last 3 Months Immunizations Name Administration Dates Next Due Influenza trivalent, 0.5mL ( Fluad) 65yo and older 03/26/2024,02/28/2023,03/28/2022,03/22,03/13/2019,03/02/2018,03/01/2017 ,03/30/2016 Influenza, Unspecified 03/10/2022,2020,02/24/2020,04/06,05/06/2014,03/05/2013 JNJ/Bob SARS-CoV-2 COVID -19, vector-nr, [id number], preservative free [...] PROCEDURE:TUBAL LIGATION OTHER SURGICAL HISTORY 2007 PROCEDURE: [place] CORRECTION HAMMERTOE; COMMENT: FOOT SURGERY PROCEDURE: HISTORICAL FOOT SURGERY; COMMENT: 18 y/o bunionectomy UPPER GASTROINTESTINAL ENDOSCOPY 03/22/2012 PROCEDURE: [place] UPPER GI ENDOSCOPY PERFORMED; COMMENT: Normal study UPPER GASTROINTESTINAL ENDOSCOPY 11/27/2015 PROCEDURE: [place] UPPER GI ENDOSCOPY PERFORMED; COMMENT: Gastritis and polyp. Normal Esophagus and duodenum. UPPER GASTROINTESTINAL ENDOSCOPY 2012 PROCEDURE: [place] UPPER GI ENDOSCOPY PERFORMED; COMMENT: FOR GERD BLADDER SUSPENSION 05/29/2018 PROCEDURE: HISTORICAL BLADDER SUSPENSION CYSTOSCOPY 03/18/2019 PROCEDURE: HISTORICAL CYSTOSCOPY; COMMENT: Normal COLONOSCOPY 06/2005 PROCEDURE: HISTORICAL COLONOSCOPY; COMMENT: tubular adenoma COLONOSCOPY 06/2010 PROCEDURE: HISTORICAL COLONOSCOPY; COMMENT: negative COLONOSCOPY 12/16/2015 PROCEDURE: HISTORICAL COLONOSCOPY; COMMENT: tubular adenoma CARDIAC CATHETERIZATION 09/26/2014 PROCEDURE: HISTORICAL CARDIAC CATH; COMMENT: RCA stent Dr David REYNAGA UPPER GASTROINTESTINAL ENDOSCOPY 08/18/2004 PROCEDURE: [place] UPPER GI ENDOSCOPY PERFORMED FOOT SURGERY 12/2013 PROCEDURE: HISTORICAL FOOT SURGERY; COMMENT: for second toe arthroplasty SHOULDER SURGERY Left PROCEDURE: HISTORICAL SHOULDER SURGERY; COMMENT: Arthroscopy with Dr. Berg KNEE SURGERY Left PROCEDURE: HISTORICAL KNEE SURGERY; COMMENT: Arthroscopy Medical History Medical History Date Comments Hypertension DX:Hypertension COPD (chronic obstructive pu lmonary disease) (CMS/HCC) DX:COPD (chronic obstructive pulmonary disease) (HCC) Heart failure (CMS/HCC) DX:Heart failure (HCC) Diabetes mellitus ([facility]) DX:D iabetes mellitus ([facility]) Asthma 07/17/2012 DX:Asthma HTN (hypertension) 07/17/2012 DX:HTN [...] mellitus type 2 wit h neurological manifestations ([facility]) 08/01/2015 DX:Diabetes abby itus type 2 with neurological manifestations ([facility]); COMMENT: A1C 6.5 09/28 transfer records Gastric ulcer, acute 11/2015 DX:Gastric ulcer, acute; COMMENT: iron related gastritis Tubular adenoma of colon 05/20/2015 DX:Tubu lar adenoma of colon; COMMENT: X1 on CN 06/2005 / neg 06/2010/ x1 06/2015 Syncope DX:Syncope Cervical radiculopathy Family History Medical History Relation Name Comments [...] Orientation Straight 07/25/2024 3: 18 PM EST Obstetrics History Last Filed Vital Signs Vital Sign Reading Time Taken Comments Blood Pressure 153/67 08/27/2024 12:22 PM EDT Pulse 105 08/27/2024 12:22 PM EDT Temperature 36.7 ??C (98.1 ??F) 08/27/2024 11:58 AM E DT Respiratory Rate 16 08/27/2024 12:22 PM EDT Oxygen Saturation 97% 08/27/2024 12:22 PM EDT Inhaled Oxygen Concentration - - Weight 81.6 kg (180 lb) 08/27/2024 9:27 AM EDT Height 162.6 cm (5' 4 ) 08/27/2024 9:27 AM EDT Body Mass Index 30.9 08/27/2024 9:27 AM EDT Plan of Treatment Upcoming Encounters Date Type Department Care Team (Late st Contact Info) Description 09/09/2024 12:30 PM EDT Ancillary Procedure [facility] Cardiology [facility] [place] [address] [phone] 10/03/2024 9:50 AM EDT Office Visit [facility] Cardiology [facility] [place] [address] [phone] Kameron Zuñiga MD [address] [address] 01/28/2025 1:15 PM EDT Office Visit [address] [phone] Kathy Perez MD [address] [place] [phone] Health Maintenance Due Date Last Done Comments Zoster Vaccines (1 of 2) 1994 Osteoporosis Screening (Bone Density Screening) 05/28/2022 Social Influencers of Health Screening 05/28/2022 COVID-19 Vaccine ( season) 2024 05/02/2023, 05/24/2022, 04/28/2021, Additional history exists Diabetes: Annual Retina Eye Exam 11/27/2024 11/28/2023 Diabetes: Annual Foot Exam 12/03/2024 12/04/2023 Diabetes: Blood Sugar Control Test (HGBA1C) 02/26/2025 08/26/2024, 03/26/2024, 03/26/2024, Additional history exists Depression Screening 03/26/2025 03/26/2024 Diabetes: Annual Urine Albumin-Creatinine Ratio (uACR) 03/26/2025 03/26/2024 Medicare Annual Wellness Visit 03/26/2025 03/26/2024 Diabetes: Annual GFR (Glomerular Filtration Rate) 08/26/2025 08/26/2024, 03/26/2024, 03/26/2024, Additional history exists Hypertension/CHF/CAD Annual BMP Blood Test 08/26/2025 08/26/2024, 03/26/2024, 03/26/2024, Additional history exists Falls Risk Assessment 08/27/2025 08/27/2024, 024 Cholesterol Screening (Lipid Panel) 08/26/2029 08/26/2024, 03/26/2024, 03/26/2024 DTaP,Tdap,and Td Vaccines (3 - Td or Tdap) 01/16/2033 01/16/2023, 08/01/2012 Hepatitis C Screening Completed 01/18/2016 Pneumococcal Vaccine: 50+ Years Completed 04/20/2023, 03/30/2016, 04/28/2014, Additional history [...] patient's age to complete this topic Meningococcal B Vacine Aged Out No lo nger eligible based on patient's age to complete this topic RSV Immunization Patients Under 20 months Aged Out No longer eligible based on patient's age to complete this topic Varicella Vaccines Aged Out No longer eligible based on patient's age to complete this topic Procedures Procedure Name Priority Date/Time Associated Diagnosis Comments POCT GLUCOSE BLOOD Routine 08/27/2024 9: 33 AM EDT LIPID PANEL WITH REFLEX TO DIRECT LDL Routine 08/26/2024 11:03 AM EDT Coronary artery disease involving agdaagux coronary artery of agdaagux heart without angina pectoris Hyperlipidemia, unspecified hyperlipidemia type BASIC METABOLIC PANEL Routine 08/26/2024 11:03 AM EDT Chronic heart failure with preserved ejection fraction (CMS/HCC) MAGNESIUM Routine 08/26/2024 11:03 AM EDT Chronic heart failure with preserved ejection fraction (CMS/HCC) HEMOGLOBIN A1C Routine 08/26/2024 11:03 AM EDT 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) POCT GLUCOSE BLOOD Routine 07/30/2024 8: 23 AM EST NM LEXISCAN STRESS TEST W/ MYOCARDIAL PERFUSION Routine 07/24/2024 11:50 AM EST Coronary artery disease involving agdaagux coronary artery of agdaagux heart without angina pectoris SOTELO (dyspnea on exertion) XR CHEST 2 VIEWS Routine 07/22/2024 2:52 PM EST Pneumonia of both lower lobes due to infectious organism ECG 12-LEAD Routine 06/04/2024 3:33 PM EST Coronary artery disease involving agdaagux coronary artery of agdaagux heart without angina pectoris DEPRESSION SCREENING Routine 03/26/2024 FALLS RISK ASSESSMENT Routine 03/26/2024 URINE ALBUMIN CREATININE RATIO Routine 03/26/2024 DIABETES FOOT EXAM Routine 12/04/2023 DIABETES EYE EXAM Routine 11/28/2023 HEPATITIS C SCREENING Routine 01/18/2016 from Last 3 Months or Most Recently Relevant to Health Maintenance Results * (ABNORMAL) POCT Glucose, blood (08/27/2024 9:33 AM EDT) Only the most recent of2 resultswithin the time period is included. Glucose POCT 101(H) 70 - 100 mg/dL 08/27/2024 9:34 AM EDT [facility] Blood Capillary blood specimen / Unknown 08/27/2024 9:33 AM EDT 08/27/2024 9:35 AM EDT us Generic Provider Poct LAB POINT OF CARE TEST DOCKED DEVICE UNSOLICITED RESULTS Final Result [facility] [address] [place] [address], * Lipid panel with reflex to direct LDL (08/26/2024 11:03 AM EDT) [facility] Cholesterol 141 0 - 200 mg/dL LAB CHEMISTRY METHOD 08/26/2024 2:15 PM EDT [facility] Triglycerides 117 0 - 150 mg/dL LAB CHEMISTRY METHOD 08/26/2024 2:15 PM EDT [facility] HDL 55 >=40 mg/dL LAB CHEMISTRY METHOD 08/26/2024 2:15 PM EDT [facility] LDL Calculated 63 0 - 100 mg/dL LAB CHEMISTRY METHOD 08/26/2024 2:15 PM EDT [facility] VLDL Cholesterol Gus 23.4 mg/dL LAB CHEMISTRY METHOD 08/26/2024 2:15 PM EDT [facility] Non HDL Chol. (LDL+VLDL) 86 <145 mg/dL LAB CHEMISTRY METHOD 08/26/2024 2:15 PM EDT [facility] Chol/HDL Ratio 2.6 0.0 - 4.4 LAB CHEMISTRY METHOD 08/26/2024 2:15 PM EDT [facility] Blood Venous blood specimen / Unknown Venipuncture / Unknown 08/26/2024 11:03 AM EDT 08/26/2024 11:03 AM EDT Elisa Romero NEEDLE LOOM OPERATOR LAB BLOOD ORDERABLES Final Result Performing Organization Address City/[facility] Care [facility]/ZIP Co de Phone Number [facility] [address] [place] [address], [place] [phone] * Magnesium (08/26/2024 11:03 AM EDT) Pathologist [facility] Magnesium 2.0 1.9 - 2.6 mg/dL LAB CHEMISTRY METHOD 08/26/2024 2:12 PM EDT [facility] Blood Venous blood specimen / Unknown Venipuncture / Unknown 08/26/2024 11:03 AM EDT 08/26/2024 11:03 AM EDT Elisa Romero NP LAB BLOOD ORDERABLES Final Result Performing Organization Address [facility]/ZIP Co de Phone Number [facility] [address] [place] [address], [place] [phone] * Hemoglobin A1c (08/26/2024 11:03 AM EDT) Hemoglobin A1C 6.4 <6.5 % LAB CHEMISTRY METHOD 08/26/2024 1:50 PM EDT [facility] Mean Bld Glu Estim. 137 mg/dL LAB CHEMISTRY METHOD 08/26/2024 1:50 PM EDT [facility] Blood Venous blood specimen / Unknown Venipuncture / Unknown 08/26/2024 11:03 AM EDT 08/26/2024 11:03 AM EDT us Kathy Perez MD LAB BLOOD ORDERABL ES Final Result [facility] [address] [place] [address], * (ABNORMAL) Basic metabolic panel (08/26/2024 11:03 AM EDT) Sodium 141 133 - 145 mmol/L LAB CHEMISTRY METHOD 08/26/2024 2:12 PM EDT [facility] Potassium 4.1 3.5 - 5.5 mmol/L LAB CHEMISTRY METHOD 08/26/2024 2:12 PM [facility] Chloride 104 96 - 110 mmol/L LAB CHEMISTRY METHOD 08/26/2024 2:12 PM [facility] CO2 26 21 - 32 mmol/L LAB CHEMISTRY METHOD 08/26/2024 2:12 PM [facility] Anion Gap 11 3 - 11 LAB CHEMISTRY METHOD 08/26/2024 2:12 PM [facility] Glucose 104(H) 70 - 100 mg/dL LAB CHEMISTRY METHOD 08/26/2024 2:12 PM [facility] BUN 18 5 - 25 mg/dL LAB CHEMISTRY METHOD 08/26/2024 2:12 PM [facility] Creatinine 1.32(H) 0.50 - 1.10 mg/dL LAB CHEMISTRY METHOD 08/26/2024 2:12 PM [facility] eGFR 41(L) >=60 mL/min/1. 73m2 LAB CHEMISTRY METHOD 08/26/2024 2:12 PM [facility] Comment:Calculation based on the??Chronic Kidney Disease Epidemiology Collaboration (CKD-EPI) equation refit??without adjustment for race. BUN/Creatinine Ratio 13.6 LAB CHEMISTRY METHOD 08/26/2024 2:12 PM [facility] Calcium 9.5 8.5 - 10.5 mg/dL LAB CHEMISTRY METHOD 08/26/2024 2:12 PM EDT [facility] Blood Venous blood specimen / Unknown Venipuncture / Unknown 08/26/2024 11:03 AM EDT 08/26/2024 11:03 AM EDT us Elisa Romero NEEDLE LOOM OPERATOR LAB BLOOD ORDERABLES Final Result [facility] [address] [place] [address], [place] [phone] * NM LEXISCAN STRESS TEST W/ MYOCARDIAL PERFUSION (07/24/2024 11:50 AM EST) Exercise/injec tion duration (min) 0 CV PACS STRESS Exercise/injec tion duration (sec) 51 CV PACS STRESS Peak SBP 110 mmHg CV PACS STRESS Peak DBP 60 mmHg CV PACS STRESS Peak HR 100 bpm CV PACS STRESS Baseline HR 86 bpm CV PACS STRESS Baseline SBP 124 mmHg CV PACS STRESS Baseline DBP 58 mmHg CV PACS STRESS Estimated workload 1.0 METS CV PACS STRESS Percent HR 71 % CV PACS STRESS Rate Pressure Product 11,000.0 mmHg*bpm CV PACS STRESS Target HR 120 bpm CV PACS STRESS BSA 1.96 m2 CV PACS STRESS TID 1.10 CV PACS STRESS Nuc Stress EF 81 % CV PAC S STRESS Nuc Rest EF 59 % CV PACS STRESS Anatomical Region Laterality Modality Nuclear Medicine 07/24/2024 10:2 2 AM EST 07/24/2024 10:53 AM EST Impressions 07/24/2024 3:01 PM EST Normal Regadenoson stress test with nuclear imaging. ?? No chest pain or EKG changes consistent with ischemia. Nuclear imaging revealed no significant perfusion defects after attenuation correction was applied. There is a normal TID ratio. Gated SPECT imaging was performed and revealed an LVEF of 59 %. Narrative 07/24/2024 3:01 PM EST Nuclear imaging of the left ventricle shows a normal cavity size. Myocardial perfusion imaging of the left ventricle reveals no perfusion defects after CT attenuation correction was applied to the study Gated SPECT imaging was performed which demonstrated normal left ventricular systolic function. The calculated LVEF is 59 %. TID ratio is normal. Stress Findings A pharmacological stress test was performed using regadenoson, 0.4 mg IV over 10-15 seconds, followed by radiopharmacological injection 10 seconds post infusion. Total stress time was 0 min and 51 sec. The patient reached the end of the protocol. Blood pressure demonstrated a normal response. Heart rate demonstrated a normal response. The patient reported no symptoms during the stress test. ECG 82 yo female with CAD and SOTELO. The ECG shows normal sinus rhythm with mild nonspecific ST abnormality V1-V3 There were no arrhythmias during stress. There is no significant ST abnormalities during stress. There were no arrhythmias during recovery. Nuclear Study Quality Study technique: MPI, SPECT, multi, rest and stress, 1 day. Overall image quality is good. CT attenuation correction was utilized. No radiopharmaceutical dose was extravasated. The time from injection to rest imaging is 35 mins. The time from injection to stress imaging is 35 mins. Stress Function Comments Stress ejection fraction is 81%. Rest Function Comments Resting ejection fraction was 59%. Elisa Romero NP CV STRESS PROCEDURES Final Result * XR Chest 2 Views (07/22/2024 2:52 [...] Signed Date: 07/22/2024 17:44 ET Workstation ID: [id number] Transcribed By: Self Edit Transcribed Date: 07/22/2024 17:42 ET Narrative 07/22/2024 5:44 PM EST HISTORY: pneumonia Dx at [facility]. 4 week f.u TECHNIQUE: PA and lateral radiographs of the chest COMPARISON: Chest radiograph from 06/23/2023 FINDINGS: There is a normal cardiomediastinal silhouette. ??Atherosclerosis of the thoracic aorta. ??Increased airspace opacities within the right lower lung zone. ??Mild degenerative changes of the thoracic spine. Procedure Note Moo Coyle MD - 07/22/2024 HISTORY: pneumonia Dx at [facility] [place]. 4 week f.u TECHNIQUE: PA and lateral [...] Signed Date: 07/22/2024 17:44 ET Workstation ID: [id number] Transcribed By: Self Edit Transcribed Date: 07/22/2024 17:42 ET Pau LOPEZ IMG XR PROCEDURES Final Result * ECG 12 lead (06/04/2024 3:33 PM EST) Ventricular Rate ECG 78 BPM GEMUSE Atrial Rate 78 BPM GEMUSE P-R Interval 158 ms GEMUSE QRS Duration 74 ms GEMUSE Q-T Interval 380 ms GEMUSE QTc 433 ms GEMUSE P Wave [place] 66 degrees GEMUSE R [place] 35 degrees GEMUSE T [place] 35 degrees GEMUSE ECG Interpretation Normal sinus rhythm Normal ECG No previous ECGs available Confirmed by Jennifer ZUÑIGA JAY ([id number]) on 06/04/2024 4:15:54 PM GEMUSE 06/04/2024 3:33 PM EST 06/04/2024 4:15 PM EST Elisa Romero NEEDLE LOOM OPERATOR ECG ORDERABLES Final Result GEMUSE * Urine Albumin Creatinine Ratio (03/26/2024) [facility] Urine Albumin Creatinine Ratio Abstracted Historical Provider HEALTH MAINTENANCE Final Result * Falls Risk Assessment (03/26/2024) [facility] Falls Risk Assessment Abstracted Result [facility] Historical Provider MD HEALTH MAINTENANCE Final Result * Depression Screening (03/26/2024) [facility] Depression Screening Abstracted Result [facility] Provider HEALTH MAINTENANCE Final Result * Diabetes Foot Exam (12/04/2023) [facility] Diabetes: Annual Foot Exam Abstracted Result [facility] Provider HEALTH MAINTENANCE Final Result * Diabetes Eye Exam (11/28/2023) [facility] Diabetes: Annual Retina Eye Exam Abstracted Comment:External Completion of test per patient (Patient reports normal results) Result [facility] Historical Provider HEALTH MAINTENANCE Final Result * Hepatitis C Screening (01/18/2016) [facility] Hepatitis C Screening Abstracted Result [facility] Historical Provider HEALTH MAINTENANCE Final Result from Last 3 Months or Most Recently Relevant to Health Maintenance Insurance [facility]LY [facility] MEDICARE Member Subscriber Plan / Payer (Ef fective 2012-Present) Name:Shea Ramirez Relation to Subscriber:Self Name:Shea Ramirez Payer ID:[id number] Group ID:[id number] Type:Not on file Address: [place] [address] [address] [phone] Care Teams Director Product Relationship Specialty Start Date End Date Kathy Perez MD [address] [place] [address] PCP - General Internal Medicine 07/22/24
--- OUTSIDE RECORDS SUMMARY | 2024-08-30 16:30 | XMS_ITS | Encounter Summary ---
Author Organization [facility] Address [address] [place] [address] Care Team Providers Care Tafe Teacher Name Role Phone Kathy Perez MD Primary Care Prov ider Encounter Details Date Type Department Care Team (Latest Contact Info) Description 08/27/2024 9:08 AM EDT - 08/27/2024 11:59 PM EDT Hospital Encounter [facility] Xray [address] [place] [phone] Pain Discharge Disposition: Home or Self Care Social [...] EDT Inhaled Oxygen Concentration - - Weight - - Height - - Body Mass Index - - documented in this encounter Medications at Time [...] time each day. 90 tablet 3 07/30/2024 azelastine (ASTELIN) 137 mcg (0.1 %) nasal [...] RELIEF CALL 911 90 tablet 3 07/30/2024 Oxygen Therapy (O2) gas Administer 2-3 L [...] Description 09/09/2024 12:30 PM EDT Ancillary Procedure [facility] [address] [phone] 10/03/2024 9:50 AM EDT Office Visit [facility] [address] [phone] Kameron Zuñiga MD [address] [address] 01/28/2025 1:15 PM EDT Office Visit [facility] [address] [place] [address] Kathy Perez MD [address] [place] [address] Pending Results Name Type Priority Associated Diagnoses Date /Time XR Fluoro Up To 1 Hour Imaging Routine Pain 08/27/2024 12:00 PM EDT Scheduled Orders Name Type Priority Associated Diagnoses Orde r Schedule XR Fluoro Up To 1 Hour Imaging Routine Pain Once for 1 Occurrences starting 08/27/2024 until 08/27/2024 documented as of this encounter Procedures Procedure Name Priority Date/Time Associated Diagnosis Comments POCT GLUCOSE BLOOD Routine 08/27/2024 9: 33 AM EDT documented in this encounter Results * (ABNORMAL) POCT Glucose, blood (08/27/2024 9:33 AM EDT) [facility] Glucose POCT 101(H) 70 - 100 mg/dL 08/27/2024 9:34 AM EDT [facility] Blood Capillary blood specimen / Unknown 08/27/2024 9:33 AM EDT 08/27/2024 9:35 AM EDT us Generic Provider Poct LAB POINT OF CARE TEST DOCKED DEVICE UNSOLICITED RESULTS Final Result [facility]) HOSPITAL LAB [address] [place] [address], documented in this encounter Visit Diagnoses Diagnosis Pain Generalized pain documented in this encounter Care Teams Tafe Teacher Relationship Specialty Start Date End Date Kathy Perez MD [address] [place] [address] PCP - General Internal Medicine 07/22/24 documented as of this encounter
--- OUTSIDE RECORDS SUMMARY | 2024-08-30 16:31 | XMS_ITS | Encounter Summary ---
Author Organization [facility] Address [address] [place] [address] Care Team Providers Care Office Copy Selector Name Role Phone Kathy Perez MD Primary Care Prov ider Reason for Visit * Reason Onset Date Comments Fitting for DME 07/18/2024 Faxed form from [place] Appointment 07/18/2024 Encounter Details Date Type Department Care Team (Late st Contact Info) Description 07/18/2024 Telephone Adult Medicine [address] [phone] Amy Carlton LPN Fitting for DME (Faxed form from [place]); Appointment Social History Tobacco Use Types Packs/Day [...] PM EST documented as of this encounter Progress Notes * Amy Carlton LPN - 08/01/2024 9:00 AM EST Form was signed and faxed back on 07/26/24 * Amy Carlton LPN - 07/30/2024 7:[address] Trina Rizo She has appt with you today please discuss incontinence for updated notes Thank you Amy ENGEL * Amy Carlton LPN - 07/18/2024 10:16 AM EST For incontinence briefs Form to Dr Trina Rizo to sign documented in this encounter Plan of Treatment Upcoming Encounters Date Type Department Care Team (Late st Contact Info) Description 09/09/2024 12:30 PM EDT Ancillary Procedure [facility] [place] [address] [address] 10/03/2024 9:50 AM EDT Office Visit [place] [address] [phone] Kameron Zuñiga MD [address] [address] 01/28/2025 1:15 PM EDT Office Visit Adult Medicine [address] [phone] Kathy Perez MD [address] [place] [address] documented as of this encounter Visit Diagnoses Diagnosis Urinary incontinence, unspecified type- Primary Type 2 diabetes mellitus with stage 3a chronic kidney disease, without long-term current use of insulin ([facility]) documented in this encounter Orders General Supply Count Last Ordered Date First Or dered Date GENERAL SUPPLY 1 07/23/2024 documented in this encounter Care Teams Office Copy Selector Relationship Specialty Start Date End Date Kathy Perez MD [address] [place] [address] PCP - General Internal Medicine 07/22/24 documented as of this encounter
--- OUTSIDE RECORDS SUMMARY | 2024-08-30 16:31 | XMS_ITS | Clinical Summary ---
Author Organization [facility] Address [address] [place] [address] Care Team Providers Care Card Puncher Name Role Phone Pito Thompson MD Primary Care Provider [phone] Allergies No known active allergies Medications Medication Sig Dispensed Refills Start Date End Date Status aspirin enteric coated (ECOTRIN LOW STRENGTH) 81 MG EC tabletIndications:Cor onary artery disease involving [place] heart, unspecified vessel or lesion type, unspecified [...] Inactivated Comments 07/24/2021 9:24 PM Care Teams Card Puncher Relationship Specialty Start Date End Date Pito Thompson MD [address] [facility] [place] [address] PCP - General 07/25/21
--- OUTSIDE RECORDS SUMMARY | 2024-08-30 16:31 | XMS_ITS | Clinical Summary ---
Author Organization [facility] Address [address] [place] [address] Care Team Providers Care Logistics Supply Officer Name Role Phone Kathy Christopher MD Primary Care Prov ider Allergies Active Allergy Reactions Criticality Noted Date Comments Amoxicillin-Pot Clavulanate Rash,Other (See Comments) Low 07/17/2012 Other reaction(s): Not available Medications Medication Sig Dispensed Refills Start Date End Date Status atorvastatin (LIPITOR) tablet 80 mg Take 1 tablet (80 mg total) by mouth daily. 0 05/07/2022 Active bisacodyl (DULCOLAX) 5 MG EC tablet TAKE 4 TABLETS BY MOUTH 1 TO 2 HOURS PRIOR TO TAKING BOWEL PREP 0 Active celecoxib (CeleBREX) 200 MG capsule Take 1 capsule (200 mg total) by mouth 2 (two) times a day. 0 Active cetirizine (ZyrTEC) 10 MG tablet Take 1 tablet (10 mg total) by mouth daily. 0 09/09/2022 Active Cholecalciferol 50 MCG (2000 UT) CAPS Take 1 capsule by mouth daily. 0 02/18/2022 Active dexlansoprazole (Dexilant) 60 MG capsule Take 1 capsule (60 mg total) by mouth daily. 0 12/27/2017 Active fluticasone (FLONASE) 50 MCG/ACT nasal spray USE 2 SPRAYS INTRANASALLY DAILY FOR 30 DAYS 0 02/07/2023 Active Trelegy Ellipta 200-62.5-25 MCG/ACT AEPB TAKE 1 PUFF BY MOUTH EVERY DAY 0 02/07/2023 Active furosemide (LASIX) 20 MG tablet Take 2 tablets (40 mg total) by mouth daily. 0 05/07/2022 Active Incontinence Supply Disposable (Poise Moderate Absorbency) PADS 6 each by Does not apply route. 0 03/15/2022 Active Melatonin 10 MG TABS Take by mouth. 0 Active metoprolol succinate (TOPROL-XL) 24 hr tablet 50 mg Take 2 tablets (100 mg total) by mouth daily. 0 06/08/2021 Active nitrofurantoin (MACRODANTIN) 100 MG capsule Take 1 capsule (100 mg total) by mouth daily. 0 Active nitroglycerin (NITROSTAT) 0.4 MG SL tablet PLEASE SEE ATTACHED FOR DETAILED DIRECTIONS 0 11/24/2022 Active olmesartan (BENICAR) tablet 5 mg Take 1 tablet (5 mg total) by mouth daily. 0 06/02/2021 Active ondansetron (ZOFRAN-ODT) 4 MG disintegrating tablet TAKE 1 TABLET BY MOUTH EVERY 12 HOURS NEEDED FOR NAUSEA. 0 02/07/2023 Active Plecanatide (Trulance) 3 MG TABS Take 1 tablet by mouth daily. 0 02/10/2023 Active Zinc Acetate 50 MG CAPS Take 50 mg by mouth. 0 10/25/2022 Active amitriptyline (ELAVIL) tablet 25 mg TAKE 1 TABLET BY MOUTH EVERY NIGHT AT BEDTIME. 30 tablet 3 07/03/2023 Active Cefixime 400 MG CAPS TAKE 1 CAPSULE BY MOUTH EVERY DAY FOR 7 DAYS 0 09/11/2023 Active cyclobenzaprine (FLEXERIL) 5 MG tablet TAKE 1 TABLET BY MOUTH DAILY NEEDED FOR MUSCLE SPASMS. 30 tablet 0 11/27/2023 Active Social History Tobacco Use Types Packs/Day Years Used Date Smoking Tobacco: Never Smokeless Tobacco: Never Tobacco Cessation:Counseling Given: Not Answered Alcohol Use Standard Drinks/Week Comments Never 0 (1 standard drink = 0.6 oz pur e alcohol) Sex and Gender Information Value Date Recorded Sex Assigned at Female 11/08/2022 8:30 AM EDT Gender Identity Not on file Sexual Orientation Not on file Job Start Date Occupation Industry Not on file Not on file Not on file Last Filed Vital Signs Vital Sign Reading Time Taken Comments Blood Pressure 144/74 09/14/2023 10:56 AM EDT Pulse 120 09/14/2023 10:56 AM EDT Temperature 36.1 ??C (97 ??F) 09/14/2023 10: 56 AM EDT Respiratory Rate - - Oxygen Saturation 92% 09/14/2023 10: 56 AM EDT Inhaled Oxygen Concentration - - Weight 85.2 kg (187 lb 12.8 oz) 024 10:56 AM EDT Height 162.6 cm (5' 4 ) 09/14/2023 10:5 6 AM EDT Body Mass Index 32.24 09/14/2023 10:56 AM EDT Plan of Treatment Health Maintenance Due Date Last Done Comments Hepatitis C Screening 1944 Depression Screening 1956 BMI Counseling 1962 Preventative Health Evaluation 1962 Shingrix-Zoster Vaccine (1 of 2) 1994 Fall Risk Assessment 2009 Osteoporosis Screening (DEXA Scan) 2009 RSV Adult > 60+ Yrs or (1 - 1-dose 75+ series) 10/08/2019 DTap / Tdap / Td (2 - Td or Tdap) 08/01/2022 08/01/2012 COVID-19 Vaccine ( season) 2024 04/28/2021, 09/09/2020 Influenza Vaccine (#1) 2024 3, 03/28/2022, 03/22/2020, Additional history exists Pneumococcal Vaccine Completed 03/30/2016, 04/28/2014, 03/05/2013, Additional history exists Hepatitis B Vaccines Aged Out No long er eligible based on patient's age to complete this topic RSV Ped < 20 months Aged Out No longe r eligible based on patient's age to complete this topic Care Teams Logistics Supply Officer Relationship Specialty Start Date End Date Kathy Christopher MD [address] [place] [address] PCP - General Internal Medicine 09/14/23
--- OUTSIDE RECORDS SUMMARY | 2024-08-30 16:31 | XMS_ITS | Encounter Summary ---
Author Organization [facility] Address [address] [place] [address] Care Team Providers Care Collating Machine Operator Name Role Phone Kathy Perez MD Primary Care Prov ider Reason for Visit * Reason Onset Date Comments testing 08/13/2024 Encounter Details Date Type Department Care Team (Late st Contact Info) Description 08/13/2024 Telephone [facility] [address] [place] [phone] Kameron Zuñiga MD [address] [place] [address] testing Social History Tobacco Use Types Packs/Day Years [...] as of this encounter Progress Notes * Jackie Chilel MA - 08/13/2024 11:48 AM EST Left message telling the patient that it is recommended that she keep the appointment for her Echocardiogram on 09/09/24. The stress test and echocardiogram are two very different tests. Asked to callback if further information is needed. * Jasminasusan Huynh - 08/13/2024 11:36 AM EST The patient called, the results of her nuclear stress testing cam e back normal. She would like to know if having the echocardiogram is still necessary. Please call her back at [phone]. documented in this encounter Plan of Treatment Upcoming Encounters Date Type Department Care Team (Late st Contact Info) Description 09/09/2024 12:30 PM EDT Ancillary Procedure [place] [address] [address] [phone] 10/03/2024 9:50 AM EDT Office Visit [place] [address] [address] [phone] Kameron Zuñiga MD [address] [address] 01/28/2025 1:15 PM EDT Office Visit Adult Medicine [address] [phone] Kathy Perez MD [address] [place] [address] documented as of this encounter Visit Diagnoses Not on filedocumented in this encounter Care Teams Collating Machine Operator Relationship Specialty Start Date End Date Kathy Perez MD [address] [place] [address] PCP - General Internal Medicine 07/22/24 documented as of this encounter
--- OUTSIDE RECORDS SUMMARY | 2024-08-30 16:31 | XMS_ITS | Encounter Summary ---
Author Organization [facility] Address [address] [place] [address] Care Team Providers Care Risk Compliance Manager Name Role Phone Kathy Preez MD Primary Care Prov ider Encounter Details Date Type Department Care Team (Late st Contact Info) Description 08/27/2024 11:33 AM EDT Anesthesia Event [facility] [address] [place] [address] Negro Velasco MD [address] [place] [address] Anesthesia Record Procedure Summary Procedure Name Responsible Anesthesiologist Anesthesia Start Time Anesthesia Stop Time INJECTION EPIDURAL CERVICAL WITHOUT GUIDANCE Negro Velasco MD 08/27/24 1133 08/27/24 1203 Events Date Time Event Comment 08/27/2024 1001 1133 An Start 1133 An Start Data The patient wa s reevaluated immediately before moderate or deep sedation use and before anesthesia induction. 1134 In Room 1140 Archie Positioning pat ient 1142 Anesthesia Ready 1147 Proc Start 1150 Proc Fin 1154 Out of Room 1155 an stop data 1203 Handoff to RN I completed my handoff to the receiving nurse during which we: 1. Identified the patient 2. Identified the responsible provider 3. Reviewed the pertinent medical history 4. Discussed the surgical course 5. Reviewed intra-op anesthesia management and issues during anesthesia 6. Set expectations for post-procedure period 7. Allowed opportunity for questions and acknowledgement of understanding. 1203 An Stop Meds Name Total fentaNYL 0.05 mg/mL 50 mcg midazolam 1 mg/mL 2 mg lactated Ringer's infusion 250 mL * Agents Name O2 N2O Air * Blood No blood administrations on file. Lines, Drains, and Airways Type Details Placement Removal Wound Back; Left, Medial, Upper; pain injections site 08/27/24 1149 by Peripheral IV Placement Date: 08/17 07/13; Placement Time: 09; Catheter Size: 20 G; Orientation: Left; Location: Antecubital; Site Prep: Chlorhexidine; Inserted by: susan celaya; Insertion Attempts: 1; Patient Tolerance: Tolerated well; Removal Date: 08/27/24; Removal Time: 12308/27/24 09 by Brown Celaya RN 08/27/24 123 by Elvira Carolina RN documented in this encounter Social History Tobacco Use Types Packs/Day Years [...] as of this encounter Progress Notes * Marta Joseph CRNA - 08/27/2024 12:04 PM EDT Patient: Shea Ramirez Procedure Summary Date: 08/27/24 Room / Location: [facility] Anesthesia Start: 1133 Anesthesia Stop: 1203 Procedure: INJECTION EPIDURAL CERVICAL WITHOUT GUIDANCE Diagnosis: Radiculopathy, cervical region Scheduled Providers: Marcus Murica DO; Negro Velasco MD Responsible Provider: Negro Velasco MD Anesthesia Type: MAC ASA Status: 4 Anesthesia Plan: MAC Last Vitals: Vitals Value Taken Time BP 141/61 08/27/24 1158 Temp 36.7 ??C (98.1 ??F) 08/27/24 1158 Pulse 109 08/27/24 1158 Resp 16 08/27/24 1158 SpO2 97 % 08/27/24 1158 Pain Score: 4 Anesthesia Post Evaluation Patient location during evaluation: PACU Patient participation: complete - patient participated Level of consciousness: awake Pain score: 0 Pain management: adequate Airway patency: patent Anesthetic complications: no Cardiovascular status: acceptable Respiratory status: acceptable Hydration status: acceptable Nausea: No Vomiting: No There were no known notable events for this encounter. * Negro Velasco MD - 08/27/2024 9:58 AM EDT Stress Test (07/2024): IMPRESSION: Normal Regadenoson stress test with nuclear imaging. No chest pain or EKG changes consistent with ischemia. Nuclear imaging revealed no significant perfusion defects after attenuation correction was applied. There is a normal TID ratio. Gated SPECT imaging was performed and revealed an LVEF of 59 %. Relevant Problems Cardio (+) Asymptomatic stenosis of intracranial artery (+) CHF (congestive heart failure) (CMS/HCC) (+) Coronary artery disease involving [place] coronary artery of [place] heart without angina pectoris (+) SOTELO (dyspnea on exertion) (+) Primary hypertension (+) Stenosis of left vertebral artery Pulmonary (+) Asthma (+) COPD (chronic obstructive pulmonary disease) (CMS/HCC) (+) SOTELO (dyspnea on exertion) (+) Mucopurulent chronic bronchitis (CMS/HCC) (+) Obstructive sleep apnea (+) Supplemental oxygen dependent Endo (+) Subclinical hyperthyroidism (+) Type 2 diabetes mellitus with stage 3 chronic kidney disease, without long- term current use of insulin (CMS/HCC) GI (+) GERD (gastroesophageal reflux disease) Other (+) Anemia (+) Iron deficiency anemia due to chronic blood loss (+) Tubular adenoma of colon Clinical information reviewed: Tobacco Allergies Meds Med Hx Surg Hx OB Status Fam Hx Soc Hx Anesthesia Plan ASA 4 Anesthesia Plan: MAC Anesthesia Risks Discussed serious complications Anesthetic plan and risks discussed with patient. Anesthesia Evaluation No history of anesthetic complications Airway Mallampati: III Dental (+) upper dentures Pulmonary - normal exam (+) COPD (daily meds, on home O2) severe, asthma, sleep apnea (doesnt use CPAP) Cardiovascular (+) hypertension, CAD, CABG/stent, CHF Rhythm: regular Rate: normal Neuro/Psych (-) seizures, CVA GI/Hepatic/Renal (+) GERD well controlled, chronic renal disease Endo/Other (+) diabetes mellitus type 2 Abdominal (+) obese PONV RISK SCORE: 2 Vitals: 08/27/24 0927 Weight: 81.6 kg (180 lb) Height: 1.626 m (64 ) SpO2 Readings from Last 1 Encounters: 08/27/24 95% No results found for: WBC , RBC , HGB , HCT , PLT , MCV Allergies Allergen Reactions Amoxicillin-Pot Clavulanate Rash STOP BANG: STOP-Bang Total Score: 2 (08/27/2024 9:37 AM) NPO Status: Time of Last Liquid: 1999 Time of Last Solid: 1999 documented in this encounter Plan of Treatment Upcoming Encounters Date Type Department Care Team (Late st Contact Info) Description 09/09/2024 12:30 PM EDT Ancillary Procedure [facility] [place] [address] [phone] 10/03/2024 9:50 AM EDT Office Visit [place] [address] [address] [phone] Kameron Zuñiga MD [address] [address] 01/28/2025 1:15 PM EDT Office Visit Adult Medicine [address] [phone] Kathy Perez MD [address] [place] [address] documented as of this encounter Visit Diagnoses Not on filedocumented in this encounter Administered Medications Inactive Administered Medications - up to 3 most recent administrations Medication Order MAR Action Action Date Dose Rate Site fentaNYL (PF) (SUBLIMAZE) injection intravenous, As needed, Starting on Mon08/27/24 at 1142, Anesthesia Intraprocedure Given 08/27/2024 11:42 AM EDT 50 mcg lactated Ringer's infusion intravenous, Continuous PRN, Starting on Mon08/27/24 at 1132, Anesthesia Intraprocedure New Bag 08/27/2024 11:32 AM EDT 75 mL/hr midazolam (VERSED) injection intravenous, As needed, Starting on Mon08/27/24 at 1132, Anesthesia Intraprocedure Given 08/27/2024 11:32 AM EDT 2 mg documented in this encounter Care Teams Risk Compliance Manager Relationship Specialty Start Date End Date Kathy Perez MD [address] [place] [address] PCP - General Internal Medicine 07/22/24 documented as of this encounter
== END 2024-08-30 15:14 | disposition home or self-care (01) ==
LOC: HO.CT 15:13
PROVIDERS: PCP Internal Medicine; Visit Provider Hospitalist
DX: J18.9 Pneumonia, unspecified organism (principal)
CPT/HCPCS: 71250

== ENCOUNTER → 2024-08-30 15:14 | Outpatient (BNV) | payer OTHER, SELFPAY | PROVIDERS: PCP Internal Medicine; Visit Provider Radiology Diagnostic Radiology | DX: I25.84 Coronary atherosclerosis due to calcified coronary lesion (principal) | CPT/HCPCS: 71250 ==

== ENCOUNTER 2024-09-04 15:15 | Outpatient (AMB) | payer OTHER, SELFPAY ==
[2024-09-04 15:28] VITALS: BP 120/62; PULSE 78; O2SAT 94; BMI 32.3
--- NOTE | 2024-09-04 15:28 | MHC.OFFWIV ---
Intake Vital Signs 09/04/24 15:28 Height 5 ft 4 in Weight 188 lb BMI 32.3 BP 120/62 Blood Pressure Location Lt brachial Position Sitting Pulse 78 Pulse Source Pulse Oximeter Pulse Oximetry (%) 94 Oxygen Delivery Method Room Air Intake Visit Reasons: EP UTI Patient Tobacco Use Status: Former Tobacco user Allergies amoxicillin [Augmentin] Allergy (Mild, Verified 09/04/24 15:35) Rash clavulanic acid [From Augmentin] Allergy (Mild, Verified 09/04/24 15:35) RASH Medication List - Last Reconciled 09/04/24 by Leticia Busby MD albuterol sulfate 2.5 mg inhalation Q4H PRN albuterol sulfate 90 mcg/actuation 2 puffs PO Q4H PRN aspirin 81 mg PO DAILY atorvastatin 80 mg PO DAILY azelastine 2 sprays intranasal BID 30 days celecoxib 50 mg PO BID cetirizine 10 mg PO DAILY cholecalciferol (vitamin D3) 50 mcg PO DAILY 30 days dexlansoprazole 60 mg PO DAILY fluticasone propionate 50 mcg/actuation 2 sprays intranasal DAILY 30 days gbghsexebgz-ioxhkxqau-glqvhdhj 200-62.5-25 mcg (Trelegy Ellipta) 1 inh inhalation DAILY 30 days isosorbide mononitrate ER 30 mg PO DAILY lidocaine 5% 1 patch topical DAILY melatonin 10 mg PO BEDTIME PRN metformin ER 500 mg PO DAILY methocarbamol 500 mg PO TID PRN metoprolol tartrate 50 mg PO BID nebulizers As directed nitroglycerin 0.4 mg sublingual ONCE PRN Oxygen Home Use As directed Do you need a note to return to daycare/school/sports/work: No HPI EP UTI HPI Details History - The patient is a 78-year-old female presenting with increased urinary frequency with odor. - Symptom onset was about three days ago, characterized by frequent urination with an unusual odor. - Symptoms are consistent with her previous experiences of urinary tract infections. - No systemic symptoms such as fever, chills, nausea, vomiting, or back pain reported. - Stomach discomfort noted by the patient, indicating mild abdominal involvement. 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 - Drink plenty of water. - Monitor symptoms and return if they worsen or persist. Review of Systems - General: No fever no chills - Neurological: No headaches no dizziness - Ear nose throat: No sore throat no hearing difficulty no ear pain - Cardiovascular: No syncope, no chest pain, no palpitations - Gastrointestinal: No nausea vomiting or diarrhea Physical Exam - General: No acute distress - HEENT: No acute findings - Neck: Supple - Respiratory system: Able to talk in full sentences, no audible wheeze - cardiovascular: S1-S2 regular in rate and rhythm - Gastrointestinal: No pain Back no CVAT - Extremities: No new findings - CORK SORTER: Alert awake oriented x3 motor sensory intact - Skin: Normal turgor PFSH Medical History Obesity (BMI 30.0-34.9) Chronic respiratory failure Asthma-COPD overlap syndrome Incontinence in female History of adenomatous polyp of colon Pneumonitis Bronchopneumonia Hypogammaglobulinemia Chronic rhinitis Dizziness Headache Hyperlipidemia HTN (hypertension) Diabetes COPD (chronic obstructive pulmonary disease) Surgical History S/P right coronary artery (RCA) stent placement H/O colonoscopy History of foot surgery History of toe surgery History of bunionectomy Family History Mother No problems noted. Father No problems noted. 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 services: Yes (grand daughter crm analyst) Alcohol intake: never Patient Tobacco Use Status: Former Tobacco user Tobacco use type: Cigarette Advance Directives Date on File: 10/03/23 service: No Current occupational status: retired Sexual orientation: Straight/Heterosexual Gender identity: Female Physical Exam Vital Signs: Last Vital Signs Pulse 78 09/04/24 15:28 BP 120/62 09/04/24 15:28 Pulse Ox 94 09/04/24 15:28 Oxygen Delivery Method Room Air 09/04/24 15:28 BMI result Body Mass Index 32.3 Results AMB Urinalysis, Automated UA Leukoctes 15 Haritha/uL Last Edit by Gautam Vaughan CMA on 09/04/24 15:40 UA Nitrite Negative Last Edit by Gautam Vaughan CMA on 09/04/24 15:40 UA Urobilinogen 0.2 mg/dL Last Edit by Gautam Vaughan CMA on 09/04/24 15:40 UA Protein 0 mg/dL Last Edit by Gautam Vaughan, REMA on 09/04/24 15:40 UA pH 6.0 Last Edit by Gautam Vaughan, REMA on 09/04/24 15:40 UA Blood 0 Jefe/uL Last Edit by Gautam Vaughan, REMA on 09/04/24 15:40 UA Specific [place] 1.010 Last Edit by Gautam Vaughan, REMA on 09/04/24 15:40 UA Ketone Negative Last Edit by Gautam Vaughan, REMA on 09/04/24 15:40 UA Bilirubin 0 mg/dL Last Edit by Gautam Vaughan CMA on 09/04/24 15:40 UA Glucose 0 mg/dL Last Edit by Gautam Vaughan CMA on 09/04/24 15:40 Results Reviewed Results Reviewed: Laboratory Last Values Urine pH (Auto) 6.0 09/04/24 15:39 Specific [place] (Auto) 1.010 09/04/24 15:39 Urine Protein (Auto) 0 mg/dL 09/04/24 15:39 Glucose (UA)(Auto) 0 mg/dL 09/04/24 15:39 Urine Ketones (Auto) Negative 09/04/24 15:39 Urine Blood (Auto) 0 Jefe/uL 09/04/24 15:39 Urine Nitrite (Auto) Negative 09/04/24 15:39 Urine Bilirubin (Auto) 0 mg/dL 09/04/24 15:39 Urine Urobilinogen (Auto) 0.2 mg/dL 09/04/24 15:39 Leukocyte Esterase (Auto) 15 Haritha/uL 09/04/24 15:39 Assessment & Plan Assessment & Plan (1) Acute cystitis with hematuria: Code(s): N30.01 - Acute cystitis with hematuria Plan History - The patient is a 78-year-old female presenting with increased urinary frequency with odor. - Symptom onset was about three days ago, characterized by frequent urination with an unusual odor. - Symptoms are consistent with her previous experiences of urinary tract infections. - No systemic symptoms such as fever, chills, nausea, vomiting, or back pain reported. - Stomach discomfort noted by the patient, indicating mild abdominal involvement. 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 - Drink plenty of water. - Monitor symptoms and return if they worsen or persist. Orders: Orders AMB Urinalysis Automated Today Z13.9 - Encounter for screening, unspecified Medications: New levofloxacin 500 mg PO DAILY 5 tabs 0RF 5 days Coding Level of Care Code Est Pt Level 3 (22364) Diagnoses Acute cystitis with hematuria N30.01
--- OUTSIDE RECORDS SUMMARY | 2024-09-04 17:15 | XMS_ITS | Encounter Summary ---
Author Organization [facility] Address [address] [place] [address] Care Team Providers Care Nonprofit Fundraiser Name Role Phone Kathy Perez MD Primary Care Prov ider Reason for Referral * Pain Management (Routine) - Pending Review Specialty Diagnoses / Procedures Referred By Contac t Referred To Contact Pain Medicine Diagnoses Radiculopathy, cervical region Procedures Injection epidural cervical without guidance Marcus Murcia DO [address] [address] Phone: tel: fax: Referral ID Status Reason Start Date Expiration Date V isits Requested Visits Authorized [id number] Pending Review 08/23/2024 08/23/2025 1 1 Reason for Visit * Pain Management (Routine) - Pending Review Specialty Diagnoses / Procedures Referred By Contac t Referred To Contact Pain Medicine Diagnoses Radiculopathy, cervical region Procedures Injection epidural cervical without guidance Marcus Murcia DO [address] [address] Phone: tel: fax: Referral ID Status Reason Start Date Expiration Date V isits Requested Visits Authorized [id number] Pending Review 08/23/2024 08/23/2025 1 1 Encounter Details Date Type Department Care Team (Latest Contact Info) Description 08/27/2024 10:04 AM EDT - 08/27/2024 11:59 PM EDT Hospital Encounter [facility] Pain Management [address] [place] [address] Marcus Murcia DO [address] [address] Negro Velasco MD [address] [place] [address] Radiculopathy, cervical region Discharge Disposition: Home or [...] 9:27 AM EDT documented in this encounter Discharge Instructions * Attachments The following attachments cannot be sent through Care Everywhere. * Sedation (Ghanaian) * Cervical Epidural Steroid: Post-op (Ghanaian) documented in this encounter Medications at Time of Discharge albuterol HFA (PROAIR HFA ; PROVENTIL HFA ; VENTOLIN HFA) 90 mcg/actuation inhaler Inhale 2 puffs by mouth every 4 (four) hours if needed (Cough, Wheezing or Shortness of Breath). 10/10/2022 atorvastatin (LIPITOR) 80 mg tablet Take 1 [...] 2 g topically if needed (PAIN). 04/21/2023 fluticasone propionate (FLONASE) 50 mcg/actuation nasal spray [...] DAY WITH BREAKFAST 90 tablet 1 05/31/2024 metoprolol tartrate (LOPRESSOR) 50 mg tablet Take 1 tablet (50 mg total) by mouth 2 (two) times a day. 180 tablet 1 05/02/2024 Oxygen Therapy (O2) gas Administer 2-3 L into affected nostril(s) at bedtime. [facility] albuterol 2.5 mg /3 mL (0.083 %) nebulizer solution TAKE 1 VIAL BY NEBULIZATION EVERY 4 HOURS NEEDED FOR WHEEZING 75 mL 1 07/16/2024 ASPIRIN ORAL Take 81 mg by mouth 1 (one) time each day. estradioL (ESTRACE) 0.01 % (0.1 mg/gram) vaginal cream Insert into the vagina at bedtime. Apply a pea-sized amount of cream with your finger into the vagina daily at bedtime for 2 weeks, then two times a week at night. 04/05/2023 lidocaine (LIDODERM) 5 % patch Place 1 patch on the skin 1 (one) time each day. Apply for no more than 12 hours in any 24 hour period. 03/21/2024 methocarbamoL (ROBAXIN) 500 mg tablet Take 1 tablet (500 mg total) by mouth 3 (three) times a day. PRN nitroglycerin (NITROSTAT) 0.[address] 1 tablet (0.4 mg total) under the tongue every 5 (five) minutes if needed for chest pain. IF NO RELIEF CALL 911 90 tablet 3 07/30/2024 plecanatide (Trulance) 3 mg tablet Take 1 [...] or Self Care documented in this encounter Progress Notes * Elvira Carolina RN - 08/27/2024 10:30 AM EDT Problem: Cognitive:Periop Procedure - Minor Goal: Knowledge of disease or condition will improve 08/27/2024 1216 by Elvira Baumann RN Outcome: Progressing 08/27/20241214 by Elvira Baumann RN Outcome: Progressing Problem: Physical Regulation:Periop Procedure - Minor Goal: Ability to maintain clinical measurements within normal limits will improve 08/27/2024 1216 by Elvira Baumann RN Outcome: Progressing 08/27/2024 121 by Elvira Baumann RN Outcome: Progressing Problem: [...] Celaya RN - 08/27/2024 10:30 AM EDT [id number] * Brown Celaya RN - 08/27/2024 10:30 [...] gently redirected into the epidural space utilizing eblw-rr-ynctcebvsu syringe. Once in place, needle placement was [...] Description 09/09/2024 12:30 PM EDT Ancillary Procedure [place] [address] [address] 10/03/2024 9:50 AM EDT Office Visit [facility] [address] [address] Kameron Zuñiga MD [address] [address] 01/28/2025 1:15 PM EDT Office Visit Adult Medicine [address] [address] Kathy Perez MD [address] [place] [address] Scheduled Orders Name Type Priority Associated Diagnoses [...] 08/27/2024 documented in this encounter Care Teams Nonprofit Fundraiser Relationship Specialty Start Date End Date Kathy Perez MD [address] [place] [address] PCP - General Internal Medicine 07/22/24 documented as of this encounter
--- OUTSIDE RECORDS SUMMARY | 2024-09-04 17:16 | XMS_ITS | Encounter Summary ---
Author Organization [facility] Address [address] [place] [address] Care Team Providers Care Hadoop Developer Name Role Phone Kathy Perez MD Primary Care Prov ider Encounter Details Date Type Department Care Team (Latest Contact Info) Description 08/27/2024 9:08 AM EDT - 08/27/2024 11:59 PM EDT Hospital Encounter [facility] Xray [address] [place] [id number] Pain Discharge Disposition: Home or Self Care [...] Description 09/09/2024 12:30 PM EDT Ancillary Procedure [facility] [address] [address] 10/03/2024 9:50 AM EDT Office Visit [facility] Cardiology [facility] [address] [address] Kameron Zuñiga MD [address] [address] 01/28/2025 1:15 PM EDT Office Visit [facility] [address] [place] [address] Kathy Perez MD [address] [place] [address] Pending Results Name Type Priority Associated Diagnoses [...] POCT Glucose, blood (08/27/2024 9:33 AM EDT) [facility] Glucose POCT 101(H) 70 - 100 mg/dL 08/27/2024 9:34 AM EDT [facility] Blood Capillary blood specimen / Unknown 08/27/2024 9:33 AM EDT 08/27/2024 9:35 AM EDT us Generic Provider Poct LAB POINT OF CARE TEST DOCKED DEVICE UNSOLICITED RESULTS Final Result [facility] [address] [place] [address], documented in this encounter Visit Diagnoses Diagnosis Pain Generalized pain documented in this encounter Care Teams Hadoop Developer Relationship Specialty Start Date End Date Kathy Perez MD [address] [place] [address] PCP - General Internal Medicine 07/22/24 documented as of this encounter
--- OUTSIDE RECORDS SUMMARY | 2024-09-04 17:16 | XMS_ITS | Encounter Summary ---
Author Organization [facility] Address [address] [place] [address] Care Team Providers Care Justice Professor Name Role Phone Kathy Perez MD Primary Care Prov ider Encounter Details Date Type Department Care Team (Late st Contact Info) Description 08/27/2024 11:33 AM EDT Anesthesia Event [facility] Pain Management [address] [place] [address] Negro Velasco MD [address] [place] [address] Anesthesia Record Procedure Summary Procedure Name Responsible [...] Procedure Summary Date: 08/27/24 Room / Location: [facility] Pain Management Anesthesia Start: 1133 Anesthesia Stop: 1203 Procedure: INJECTION EPIDURAL CERVICAL WITHOUT GUIDANCE Diagnosis: Radiculopathy, cervical region Scheduled Providers: Marcus Murcia DO; Negro Velasco MD Responsible Provider: Negro [...] failure) (CMS/HCC) (+) Coronary artery disease involving [place] coronary artery of [place] heart without angina pectoris (+) SOTELO (dyspnea [...] Description 09/09/2024 12:30 PM EDT Ancillary Procedure [facility] Cardiology [place] [address] [address] 10/03/2024 9:50 AM EDT Office Visit [place] [address] [address] Kameron Zuñiga MD [address] [address] 01/28/2025 1:15 PM EDT Office Visit Adult Medicine [address] [address] Kathy Perez MD [address] [place] [address] documented as of this encounter Visit Diagnoses [...] mg documented in this encounter Care Teams Justice Professor Relationship Specialty Start Date End Date Kathy Perez MD [address] [place] [phone] PCP - General Internal Medicine 07/22/24 documented as of this encounter
--- OUTSIDE RECORDS SUMMARY | 2024-09-04 17:16 | XMS_ITS | Clinical Summary ---
Author Organization [facility] Address [address] [place] [address] Phone Care Team Providers Care Water Pumper Name Role Phone Kathy Perez MD Primary [...] 12/10/2018 Obstructive sleep apnea 11/21/2018 Overview (04/23/2024): [facility] Home Sleep Apnea Test: Date 11/18/2018; Wt 192#; BMI 33; HAYLEY 16, AI 1; HI 14; Unclassified apneas 0; Obstructive apneas 10; Central apneas 0; Mixed apneas 0; hypopneas 126; average oxygen saturation 88% (lowest 73% with saturations <88% for 5% or more of study) [facility] Polysomnogram treatment study. Date 01/11/2019. Wt [...] x1 06/2015 Coronary artery disease invo lving cocopah coronary artery of cocopah heart without angina pectoris 01/21/2015 Overview (04/23/2024): [...] 07/17/2012 Overview (04/23/2024): Dr. Stephenson at [address] [place] [address] GERD (gastroesophageal reflux disease) 3 Insomnia 07/17/2012 [...] Description 08/27/2024 11:33 AM EDT Anesthesia Event [facility] [address] [place] [address] Negro Velasco MD 08/27/2024 10:04 AM EDT - 08/27/2024 11:59 PM EDT Hospital Encounter [facility] [address] [place] [address] Marcus Murcia DO Chang, Daniel J, MD Radiculopathy, cervical region Discharge Disposition: Home or Self Care 08/27/2024 9:08 AM EDT - 08/27/2024 11:59 PM EDT Hospital Encounter [facility] [address] [place] [phone] Pain Discharge Disposition: Home or Self Care 08/13/2024 Telephone [facility] Cardiology [facility] [address] [facility] [address] [place] [phone] Kameron Zñuiga MD testing 07/30/2024 1:15 PM EST Office Visit Adult Medicine [address] [address] Kathy Nino MD 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) (Primary Dx); Primary hypertension; Mixed hyperlipidemia; Stage 3a chronic kidney disease ([facility]/HCC); Chronic obstructive pulmonary disease, unspecified COPD type ([facility]/HCC); Congestive heart failure, unspecified HF chronicity, unspecified heart failure type ([facility]/HCC); Urinary incontinence, unspecified type 07/30/2024 8:20 AM EST Anesthesia Event [facility] [address] [place] [phone] Negro Velasco MD Fox, Jillian, [place] 07/30/2024 8:12 AM EST - 07/30/2024 11:59 PM EST Hospital Encounter [facility] [address] [place] [address] Marcus Murcia DO Chang, Daniel J, MD Barnes, Tyanna R, CRNA Radiculopathy, cervical region Discharge Disposition: Home or Self Care 07/24/2024 9:30 AM EST Ancillary Procedure [facility] Cardiology [facility] [address] [facility] [address] [place] [phone] Coronary artery disease involving cocopah coronary artery of cocopah heart without angina pectoris; SOTELO (dyspnea on exertion) 07/22/2024 2:45 PM EST - 07/22/2024 11:59 PM EST Hospital Encounter XRAY - [place] [address] [place], [place] [phone] Pneumonia of both lower lobes due to infectious organism Discharge Disposition: Home or Self Care 07/18/2024 Telephone Adult Medicine [address] [phone] Amy Carlton LPN Fitting for DME (Faxed form from [employer]); Appointment 06/27/2024 10:30 AM EST Office Visit Adult Medicine [address] [phone] Pau Shultz PA Pneumonia of both lower lobes due to infectious organism (Primary Dx); Nausea and vomiting, unspecified vomiting type; Diarrhea, unspecified type; Type 2 diabetes mellitus with stage 3a chronic kidney disease, without long-term current use of insulin ([facility]) 06/24/2024 Telephone Adult Medicine [address] [phone] Kathy Nino MD Hospital Follow-up 05/13/2024 11:59 PM EST Anesthesia Event [facility] [address] [place] [address] Stacy Martinez MD from Last 3 Months Immunizations Name Administration Dates Next Due Influenza trivalent, 0.5mL ( Fluad) 65yo and older 03/26/2024,02/28/2023,03/28/2022,03/22,03/13/2019,03/02/2018,03/01/2017 ,03/30/2016 Influenza, Unspecified 03/10/2022,2020,02/24/2020,04/06,05/06/2014,03/05/2013 REBAJ/echoecho SARS-CoV-2 COVID -19, vector-nr, [id number], preservative free [...] PROCEDURE:TUBAL LIGATION OTHER SURGICAL HISTORY 2007 PROCEDURE: GA CORRECTION HAMMERTOE; COMMENT: FOOT SURGERY PROCEDURE: HISTORICAL FOOT SURGERY; COMMENT: 18 y/o bunionectomy UPPER GASTROINTESTINAL ENDOSCOPY 03/22/2012 PROCEDURE: GA UPPER GI ENDOSCOPY PERFORMED; COMMENT: Normal study UPPER GASTROINTESTINAL ENDOSCOPY 11/27/2015 PROCEDURE: GA UPPER GI ENDOSCOPY PERFORMED; COMMENT: Gastritis and polyp. Normal Esophagus and duodenum. UPPER GASTROINTESTINAL ENDOSCOPY 2012 PROCEDURE: GA UPPER GI ENDOSCOPY PERFORMED; COMMENT: FOR GERD BLADDER SUSPENSION 05/29/2018 PROCEDURE: HISTORICAL BLADDER SUSPENSION CYSTOSCOPY 03/18/2019 PROCEDURE: HISTORICAL CYSTOSCOPY; COMMENT: Normal COLONOSCOPY 06/2005 PROCEDURE: HISTORICAL COLONOSCOPY; COMMENT: tubular adenoma COLONOSCOPY 06/2010 PROCEDURE: HISTORICAL COLONOSCOPY; COMMENT: negative COLONOSCOPY 12/16/2015 PROCEDURE: HISTORICAL COLONOSCOPY; COMMENT: tubular adenoma CARDIAC CATHETERIZATION 09/26/2014 PROCEDURE: HISTORICAL CARDIAC CATH; COMMENT: RCA stent [facility], Dr Hernandez UPPER GASTROINTESTINAL ENDOSCOPY 08/18/2004 PROCEDURE: GA UPPER GI ENDOSCOPY PERFORMED FOOT SURGERY 12/2013 [...] failure (CMS/HCC) DX:Heart failure (HCC) Diabetes mellitus (CMS/HCC) DX:D iabetes mellitus (HCC) Asthma 07/17/2012 DX:Asthma HTN (hypertension) 07/17/2012 DX:HTN [...] mellitus type 2 wit h neurological manifestations (CMS/HCC) 08/01/2015 DX:Diabetes abby itus type 2 with neurological manifestations (HCC); COMMENT: A1C 6.5 09/28 transfer records Gastric [...] Description 09/09/2024 12:30 PM EDT Ancillary Procedure [facility] Cardiology [facility] [address] [address] 10/03/2024 9:50 AM EDT Office Visit [facility] Cardiology [facility] [address] [address] Kameron Zuñiga MD [address] [address] 01/28/2025 1:15 PM EDT Office Visit Adult Medicine [facility] [address] [place] [phone] Kathy Perez MD [address] [place] [address] Health Maintenance Due Date Last Done Comments [...] Procedure Name Priority Date/Time Associated Diagnosis Comments EXTERNAL CT REPORT Routine 08/30/2024 12 :31 PM EDT POCT GLUCOSE BLOOD Routine 08/27/2024 9: 33 AM EDT LIPID PANEL WITH REFLEX TO DIRECT LDL Routine 08/26/2024 11:03 AM EDT Coronary artery disease involving cocopah coronary artery of cocopah heart without angina pectoris Hyperlipidemia, unspecified hyperlipidemia [...] 11:50 AM EST Coronary artery disease involving cocopah coronary artery of cocopah heart without angina pectoris SOTELO (dyspnea on exertion) XR CHEST 2 VIEWS Routine 07/22/2024 2:52 PM EST Pneumonia of both lower lobes due to infectious organism DEPRESSION SCREENING Routine 03/26/2024 FALLS RISK ASSESSMENT Routine 03/26/2024 URINE ALBUMIN CREATININE RATIO Routine 03/26/2024 DIABETES FOOT EXAM Routine 12/04/2023 DIABETES EYE EXAM Routine 11/28/2023 HEPATITIS C SCREENING Routine 01/18/2016 from Last 3 Months or Most Recently Relevant to Health Maintenance Results * External CT Report (08/30/2024 12:31 PM EDT) Anatomical Region Laterality Modality Computed Tomogra phy us Historical Provider MD DOAN CT PROCEDURES Final R esult * (ABNORMAL) POCT Glucose, blood (08/27/2024 9:33 AM EDT) Only the most recent of2 resultswithin the time period is included. [facility] Glucose POCT 101(H) 70 - 100 mg/dL 08/27/2024 9:34 AM EDT [facility] Blood Capillary blood specimen / Unknown 08/27/2024 9:33 AM EDT 08/27/2024 9:35 AM EDT us Generic Provider Poct LAB POINT OF CARE TEST DOCKED DEVICE UNSOLICITED RESULTS Final Result [facility] [address] [place] [address], [place] [phone] * Lipid panel with reflex to direct LDL (08/26/2024 11:03 AM EDT) [facility] Cholesterol 141 0 - 200 mg/dL LAB CHEMISTRY METHOD 08/26/2024 2:15 PM EDT [facility] Triglycerides 117 0 - 150 mg/dL LAB CHEMISTRY METHOD 08/26/2024 2:15 PM [facility] HDL 55 >=40 mg/dL LAB CHEMISTRY METHOD 08/26/2024 2:15 PM EDT [facility] LDL Calculated 63 0 - 100 mg/dL LAB CHEMISTRY METHOD 08/26/2024 2:15 PM [facility] VLDL Cholesterol Gus 23.4 mg/dL LAB CHEMISTRY METHOD 08/26/2024 2:15 PM EDT [facility] Non HDL Chol. (LDL+VLDL) 86 <145 mg/dL LAB CHEMISTRY METHOD 08/26/2024 2:15 PM EDT [facility] Chol/HDL Ratio 2.6 0.0 - 4.4 LAB CHEMISTRY METHOD 08/26[facility]2024 [facility] Blood Venous blood specimen / Unknown Venipuncture / Unknown 08/26/2024 11:03 AM EDT 08/26/2024 11:03 AM EDT Elisa Romero GORE CUTTER LAB BLOOD ORDERABLES Final Result [facility] [address] [place] [address], [place] [phone] * Magnesium (08/26/2024 11:03 AM EDT) [facility] Magnesium 2.0 1.9 - 2.6 mg/dL LAB CHEMISTRY METHOD 08/26/2024 2:12 PM EDT [facility] Blood Venous blood specimen / Unknown Venipuncture / Unknown 08/26/2024 11:03 AM EDT 08/26/2024 11:03 AM EDT Elisa Romero NP LAB BLOOD ORDERABLES Final Result Performing Organization Address [facility]/ZIP Co de Phone Number [facility] [address] [place] [address], [place] [phone] * Hemoglobin A1c (08/26/2024 11:03 AM EDT) [facility] Hemoglobin A1C 6.4 <6.5 % LAB CHEMISTRY METHOD 08/26/2024 1:50 PM EDT [facility] Mean Bld Glu Estim. 137 mg/dL LAB CHEMISTRY METHOD 08/26/2024 1:50 PM EDT [facility] Blood Venous blood specimen / Unknown Venipuncture / Unknown 08/26/2024 11:03 AM EDT 08/26/2024 11:03 AM EDT Kathy Perez MD LAB BLOOD ORDERABL ES Final Result Performing Organization Address City/[facility]/ZIP Co de Phone Number [facility] [address] [place] [address], * (ABNORMAL) Basic metabolic panel (08/26/2024 11:03 AM EDT) Sodium 141 133 - 145 mmol/L LAB CHEMISTRY METHOD 08/26/2024 2:12 PM [facility] Potassium 4.1 3.5 - 5.5 mmol/L LAB CHEMISTRY METHOD 08/26/2024 2:12 PM [facility] Chloride 104 96 - 110 mmol/L LAB CHEMISTRY METHOD 08/26/2024 2:12 PM [facility] CO2 26 21 - 32 mmol/L LAB CHEMISTRY METHOD 08/26/2024 2:12 PM [facility] Anion Gap 11 3 - 11 LAB CHEMISTRY METHOD 08/26/2024 2:12 PM [facility] Glucose 104(H) 70 - 100 mg/dL LAB CHEMISTRY METHOD 08/26/2024 2:12 PM [facility] BUN 18 5 - 25 mg/dL LAB CHEMISTRY METHOD 08/26/2024 2:12 PM [facility] Creatinine 1.32(H) 0.50 - 1.10 mg/dL LAB CHEMISTRY METHOD 08/26/2024 2:12 PM [facility] eGFR 41(L) >=60 mL/min/1. 73m2 LAB CHEMISTRY METHOD 08/26/2024 2:12 PM [facility] Comment:Calculation based on the??Chronic Kidney Disease Epidemiology Collaboration (CKD-EPI) equation refit??without adjustment for race. BUN/Creatinine Ratio 13.6 LAB CHEMISTRY METHOD 08/26/2024 2:12 PM [facility] Calcium 9.5 8.5 - 10.5 mg/dL LAB CHEMISTRY METHOD 08/26/2024 2:12 PM [facility] Blood Venous blood specimen / Unknown Venipuncture / Unknown 08/26/2024 11:03 AM EDT 08/26/2024 11:03 AM EDT Elisa Romero GORE CUTTER LAB BLOOD ORDERABLES Final Result [facility] [address] [place] [address], [place] [phone] * NM LEXISCAN STRESS TEST W/ MYOCARDIAL [...] Signed Date: 07/22/2024 17:44 ET Workstation ID: [id number] Transcribed By: Self Edit Transcribed Date: 07/22/2024 17:42 ET Narrative 07/22/2024 5:44 PM EST HISTORY: pneumonia Dx at [facility]. 4 week f.u TECHNIQUE: PA and lateral radiographs of the chest COMPARISON: Chest radiograph from 06/23/2023 FINDINGS: There is a normal cardiomediastinal silhouette. ??Atherosclerosis of the thoracic aorta. ??Increased airspace opacities within the right lower lung zone. ??Mild degenerative changes of the thoracic spine. Procedure Note Moo Coyle MD - 07/22/2024 HISTORY: pneumonia Dx at [facility]. 4 week f.u TECHNIQUE: PA and lateral [...] Signed Date: 07/22/2024 17:44 ET Workstation ID: [id number] Transcribed By: Self Edit Transcribed Date: 07/22/2024 17:42 ET Result [facility] Pau LOPEZ IMG XR PROCEDURES Final Result * Urine Albumin Creatinine Ratio (03/26/2024) [facility] Urine Albumin Creatinine Ratio Abstracted Result [facility] Provider HEALTH MAINTENANCE Final Result * Falls Risk Assessment (03/26/2024) [facility] Falls Risk Assessment Abstracted Result [facility] Provider HEALTH MAINTENANCE Final Result * Depression Screening (03/26/2024) [facility] Depression Screening Abstracted Result [facility] Provider HEALTH MAINTENANCE Final Result * Diabetes Foot Exam (12/04/2023) [facility] Diabetes: Annual Foot Exam Abstracted Result [facility] Provider HEALTH MAINTENANCE Final Result * Diabetes Eye Exam (11/28/2023) [facility] Diabetes: Annual Retina Eye Exam Abstracted Comment:External Completion of test per patient (Patient reports normal results) us Historical Provider HEALTH MAINTENANCE Final Result * Hepatitis C Screening (01/18/2016) Hepatitis C Screening Abstracted us Historical Provider HEALTH MAINTENANCE Final Result from Last 3 Months or Most Recently Relevant to Health Maintenance Insurance [facility] MEDICARE Member Subscriber Plan / Payer (Ef fective 2012-Present) Name:Shea Ramirez Relation to Subscriber:Self Name:Shea Ramirez Payer ID:[id number] Group ID:[id number] Type:Not on file Address: [place] [address] [address] [id number] Care Teams Water Pumper Relationship Specialty Start Date End Date Kathy Perez MD [address] [place] [phone] PCP - General Internal Medicine 07/22/24
--- OUTSIDE RECORDS SUMMARY | 2024-09-04 17:16 | XMS_ITS | Clinical Summary ---
Author Organization [facility] Address [address] [place] [address] Care Team Providers Care Sales Planning Manager Name Role Phone Kathy Christopher MD Primary [...] age to complete this topic Care Teams Sales Planning Manager Relationship Specialty Start Date End Date Kathy Christopher MD [address] [place] [address] PCP - General Internal Medicine 09/14/23
--- OUTSIDE RECORDS SUMMARY | 2024-09-04 17:16 | XMS_ITS | Clinical Summary ---
Author Organization [facility] Address [address] [place] [address] Care Team Providers Care Seamer Name Role Phone Pito Thompson MD Primary Care Provider [phone] Allergies No known active allergies Medications Medication Sig Dispensed Refills Start Date End Date Status aspirin enteric coated (ECOTRIN LOW STRENGTH) 81 MG EC tabletIndications:Cor onary artery disease involving [place] heart, unspecified vessel or lesion type, unspecified [...] Inactivated Comments 07/24/2021 9:24 PM Care Teams Seamer Relationship Specialty Start Date End Date Pito Thompson MD [address] [place] [address] PCP - General 07/25/21
--- OUTSIDE RECORDS SUMMARY | 2024-09-04 17:16 | XMS_ITS | Encounter Summary ---
Author Organization [facility] Address [address] [place] [address] Care Team Providers Care Merchandiser Name Role Phone Kathy Perez MD Primary Care Prov ider Reason for Visit * Reason Onset Date Comments testing 08/13/2024 Encounter Details Date Type Department Care Team (Late st Contact Info) Description 08/13/2024 Telephone [facility] [address] [place] [phone] Kameron Zuñiga MD [address] [place] [address] testing Social History Tobacco Use Types Packs/Day [...] still necessary. Please call her back at [phone]. documented in this encounter Plan of Treatment Upcoming Encounters Date Type Department Care Team (Late st Contact Info) Description 09/09/2024 12:30 PM EDT Ancillary Procedure [place] [id number] [address] 10/03/2024 9:50 AM EDT Office Visit [place] [address] [phone] Kameron Zuñiga MD [address] [address] 01/28/2025 1:15 PM EDT Office Visit Adult Medicine [address] [phone] Kathy Perez MD [address] [place] [address] documented as of this encounter Visit Diagnoses Not on filedocumented in this encounter Care Teams Merchandiser Relationship Specialty Start Date End Date Kathy Perez MD [address] [place] [address] PCP - General Internal Medicine 07/22/24 documented as of this encounter
--- OUTSIDE RECORDS SUMMARY | 2024-09-04 17:16 | XMS_ITS | Data Portability ---
Author Organization [employer] [employer] [facility] [employer] Address [address] [place] [phone] Care Team Providers Care Garage Manager Name Role Phone [facility] Referring Provider [facility] OTHER Assessment Encounter Date Assessment Date Assessment LastModified by Organization Details LastModified Time 04/20/2024 04/20/2024 I provided real -time medical direction via phone for this encounter and was available for additional phone-based assistance as needed. I have reviewed and agree with the Assessment and Plan as documented by the Plastic Straightening Roll Operator. Patient given the opportunity to ask questions. [...] on metoprolol to for rate control. Per coin box inspector on the scene, vital signs are stable [...] have any evidence of volume overload per coin box inspector on the scene. She has no evidence [...] QL IA, respiratory specimen [email or web address] [facility], [address] [place] [address], [id number], 3 20:04:39 rapid flu (A+B) 20[email or web address] [facility], [address] [place] [address], [phone], 3 20:04:40 rapid strep group A, throat 2022 [email or web address] [facility], [address] [place] [address], [phone], 3 20:04:38 culture, urine 2022 023 CLEMENT [facility] (Centralized Electronic Ordering - All Locations), Patient Can Go To The Location Of Their Choice, [id number] 3 07:41:06 Referral None recorded. Procedures None recorded. Surgeries None recorded. Imaging None recorded. Medication Orders Levaquin 500 mg tablet [id number] [place] [address], [address] [place] [address], [address], 13:34:52 Patient TargetsNo targets recorded. Patient InstructionsNo instructions recorded. Reason for Referral None Reported. Results Created Date Observation Date Name Description Value Unit Range Abnormal Flag Note LastModifiedBy Organization Detail LastModifiedTime 09/28/1909/27/2022 URINE CULTU RE specimen description URINE Not Available [facility] (Centralized Electronic Ordering - All Locations) Patient Can Go To The Location Of Their Choice, [facility] 09/29/2022 07:41:06 09/28/1909/27/2022 URINE CULTU RE special requests NONE Not Available [facility] (Centralized Electronic Ordering - All Locations) Patient Can Go To The Location Of Their Choice, [facility] 09/29/2022 07:41:06 09/28/1909/29/2022 URINE CULTU RE culture NO GROWTH Not Available [facility] (Centralized Electronic Ordering - All Locations) Patient Can Go To The Location Of Their Choice, [facility] 09/29/2022 07:41:06 09/28/1909/29/2022 URINE CULTU RE report status FINAL 2022 Not Available [facility] (Centralized Electronic Ordering - All Locations) Patient Can Go To The Location Of Their Choice, [facility] 09/29/2022 07:41:06 06/17/2006/17/2023 rapid strep group A, throa t Strep negati ve Not Available [facility] ed [address] [place] [address], [phone], 06/17/2023 20:04:20 06/17/20 23 06/17/2023 rapid flu (A+B) Flu negati ve Not Available [facility] ed [address] [place] [address], [phone], 06/17/2023 20:04:18 06/17/20 23 06/17/2023 rapid SARS CoV 2 Ag, QL IA, respi rator y speci men rapid SARS CoV 2 Ag, QL IA, respiratory specimen negati ve Not Available [facility] ed [address] [place] [address], [phone], 06/17/2023 20:04:15 Result Notes None recorded. Medical Equipment None Reported. Allergies Allergen ID Allergen Name Allergen Category Reaction Reaction Severity Criticality Documentation Date Start Date Code Code System Note Provider Name and Address Organization Details Recorded Time 7839 Product containin odilon penicilli n (product) medicatio n Not available Not available Not available 04/16/2024 91443 8001 SNOMED Not Available [facility] - production [...] Updated DateTime 3 16 /min 162.56 cm 38916.5 6 g 90 /min 96 % 96 % 99.5 [degF] 143 mm[Hg] 68 mm[Hg] Not Available [facility] - production 3 19:48:26 Date Recorded Body weight Respiratory rate Heart rate Body height Body temperature Oxygen saturation Oxygen saturation in Arterial blood by Pulse oximetry Systolic blood pressure Diastolic blood pressure Provider Name and Address Organization Details Last Updated DateTime 4 17111.5 6 g 18 /min 111 /min 162.56 [...] % 98 % 95.7 [degF] 73 /min 47246.5 6 g 16 /min 125 mm[Hg] 67 [...] [id number] Praveen Valdovinos MD Main - [facility] [address] [place] [phone] 09/27/2022 13:30:25 09/29/2022 10:29:50 Acute urinary tract infection 978451235 N39.0 [id number] Petra Elmore MD Main - [facility] [address] [place] [phone] 06/17/2023 19:48:24 06/20/2023 12:24:39 Upper respiratory infection 69581397 J06.9 Evaluation in the field was performed by my coin box inspector colleague, as noted above, I provided real-time [...] shortness of breath, cough, chest pain, fever. [id number] Jackie Ardon MD Main - [address] [phone] 04/20/2024 14:23:19 04/20/2024 19:15:29 Decreased urine output 414709610 R34 Chronic ki dney disease stage 3 235383810 N18.30 Tachycardia 8519668 R00. 0 Health Concerns Section Related Observation LastModified by Organization Detai ls LastModified Time None Recorded Concern Status LastModified by Organization Details LastModified Time None Recorded Advance Directives Directive None Recorded Payers Encounter Date Sequence Insurance Name Policy Number Policy Wagner Covered Member ID Wagner Member ID Guarantor Name 09/27/2022 1 [facility] - DOS PRIOR TO 2022 - DUAL ELIGIBLE (MEDICARE REPLACEMENT/ADV ANTAGE - HMO) Shea Pares [id number] Shea J Pares 06/17/2023 1 [facility] - DOS ON OR AFTER 2022 - DUAL ELIGIBLE - JAIL OPTIONS AND ONE CARE (MEDICARE REPLACEMENT/ADV ANTAGE - HMO) Shea Pares [id number] Shea J Pares 04/20/2024 1 [facility] - DOS ON OR AFTER 2022 - DUAL ELIGIBLE - JAIL OPTIONS AND ONE CARE (MEDICARE REPLACEMENT/ADV ANTAGE - HMO) Shea Pares [id number] Shea J Pares Notes Date Note Type [...] Member denies F/c/n/v/d Praveen Valdovinos MD [address] [facility],[address], [place], [phone], [employer] 09/27/2022 13:35:12 023 text/ht ml HPI: Member [...] process visit. ................................... ................................... ................................... ................................... . Plastic Straightening Roll Operator Note From Max Clemens: Pt reports dry [...] ................................... . Disposition: Fulfilled Petra Elmore MD [address] [place] [address],[address], [place], [phone], [employer] 06/17/2023 20:04:49 024 text/ht ml HPI: mbr with multiple complaints, states experienced SOB last night where she had decided to take a diuretic, denies any Urine output at this time questioning retention , but does mention changing briefs multiple times over night, denies any Abdominal pain pressure or discomfort, no LE edema CP/N/V. per mbr B/P 153/78 HR 111. mbr requesting [facility] for evaluation.Protocol Used: Urinary SymptomsProtocol-Based Disposition: Consider [facility], ROTARY ENGINE ASSEMBLER, MD/SOLARIS ADMINISTRATOR triage, PCP, or ED /Urgent Care Visit [...] Comments: Reviewed HPI SEGMD: Visit closed by [facility] [place] end of shift before medic note transferred into [employer], so I entered it below: SummarySmartcare visit [...] this was present yesterday in visit with SOLARIS ADMINISTRATOR as well. Pt afebrile. Lung sounds clear bilaterally. Pt concerned about possible cloudy urine as well. Pt was unable to provide urine specimen for testing. Consulted with [facility] [place] Dr. Casas who advised continuing to monitor symptoms. Reviewed red flags for ED. Pt education provided.Services ProvidedPatient EducationDispositionFulfilledWas patient sent to ED?[facility] consulted on the case?Yes - Solange Casas MD [address] [facility],[address], [place], [phone], [place] [employer] 04/23/2024 15:04:20 OBGyn Episode No OBEpisode recorded.
== END 2024-09-04 15:56 | disposition home or self-care (01) ==
PROVIDERS: PCP Internal Medicine; Visit Provider Internal Medicine
DX: Z13.9 Encounter for screening, unspecified (principal); N30.01 Acute cystitis with hematuria

== ENCOUNTER → 2024-09-04 15:15 | Outpatient (BNVA) | payer OTHER, SELFPAY | PROVIDERS: PCP Internal Medicine | DX: N30.01 Acute cystitis with hematuria (principal) | CPT/HCPCS: 81003; 99212 ==

== ENCOUNTER 2024-09-09 14:01 | Outpatient (REF) | payer OTHER, SELFPAY ==
[2024-09-09 15:08] LABS: MANUAL DIFF FLAG NO
[2024-09-09 15:25] LABS: Basophils Percent Auto 0.2 % (0-2); Eosinophils Absolute Auto 0.2 X10*3/uL (0.0-0.4); Eosinophils Percent Auto 1.4 % (0-4); Hematocrit 33.7 % (37.0-47.0); Hemoglobin 10.9 g/dl (12.0-16.0); Imm Gran Abs Auto 0.06 X10*3/uL (0.00-0.03); Imm Gran Pct Auto 0.5 % (0.0-0.4); Lymphocytes Absolute Auto 2.2 X10*3/uL (1.2-4.9); Lymphocytes Percent Auto 17.7 % (20-40); Mean Corpuscular HGB Conc 32.3 g/dl (31.0-35.0); Mean Corpuscular Hemoglobin 29.5 pg (27.0-33.0); Mean Corpuscular Volume 91.3 fL (80.0-98.0); Mean Platelet Volume 10.6 fL (9.4-12.3); Monocytes Absolute Auto 1.3 X10*3/uL (0.1-1.2); Monocytes Percent Auto 10.9 % (2-11); Neutrophils Absolute Auto 8.5 x10*3/uL (2.0-8.3); Neutrophils Percent Auto 69.3 % (45-73); Platelet Count 291 X10*3/uL (160-400); Red Blood Count 3.69 X10*6/uL (4.20-5.50); Red Cell Distribution Width 15.5 % (11.0-16.0); White Blood Count 12.2 X10*3/uL (4.8-10.8)
[2024-09-09 15:35] LABS: Appearance Urine Clear; Color Urine Yellow; Glucose Urine UA Negative (Negative); Leukocyte Esterase Urine Moderate (2+) (Negative); Nitrite Urine Negative (Negative); PH 5.5 (5.0-9.0); Specific Gravity - Urine 1.015 (1.005-1.025); UMIC TRIGGER UACC YES; Urine Blood Negative (Negative); Urine Ketones Negative (Negative); Urine Protein Negative (Neg-Trace)
[2024-09-09 15:40] LABS: Bacteria Urine None Seen (None Seen); Hyaline Casts Urine 0-2 /LPF (0-2); RBC Urine 0-2 /HPF (0-2); Squamous Epithelial Cell Urine 0-2 /HPF (0-2); UACC Culture Trigger YES
[2024-09-09 16:41] LABS: Alanine Aminotransferase 16 U/L (0-31); Albumin Level 3.8 g/dL (3.5-5.0); Alkaline Phosphatase 77 U/L (39-117); Anion Gap 10 (12-20); Aspartate Amino Transferase 19 U/L (5-31); Bilirubin Direct 0.2 mg/dL (0.0-0.5); Bilirubin Total 0.5 mg/dL (0.0-1.0); Blood Urea Nitrogen 23 mg/dL (9-16); Calcium 9.1 mg/dL (8.4-10.2); Carbon Dioxide 27 mmol/L (22-29); Chloride 110 mmol/L (96-108); Estimated Glomerular Filt Rate 52; Glucose Random 98 mg/dL (60-115); Potassium 3.9 mmol/L (3.3-5.1); Sodium 143 mmol/L (135-145); Total Protein 6.5 g/dL (6.5-8.0)
== END 2024-09-09 14:02 | disposition home or self-care (01) ==
LOC: HO.LAB 14:01
PROVIDERS: Nurse Practitioner Family; PCP Internal Medicine; Visit Provider Hospitalist
DX: J18.9 Pneumonia, unspecified organism (principal); R35.0 Frequency of micturition
CPT/HCPCS: 36415; 80048; 80076; 81001; 85025; 87086; 99212

== ENCOUNTER 2024-09-09 14:01 | Outpatient (AMB) | payer OTHER, SELFPAY ==
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
[2024-09-09 14:09] VITALS: BP 130/68; PULSE 94; O2SAT 95; BMI 31.4
== END 2024-09-09 14:10 | disposition home or self-care (01) ==
LOC: HO.HPS 14:01
PROVIDERS: PCP Internal Medicine; Visit Provider Hospitalist
DX: J18.9 Pneumonia, unspecified organism (principal); J44.1 Chronic obstructive pulmonary disease with (acute) exacerbation; J31.0 Chronic rhinitis; K21.9 Gastro-esophageal reflux disease without esophagitis; D80.1 Nonfamilial hypogammaglobulinemia; J44.89 Other specified chronic obstructive pulmonary disease
CPT/HCPCS: 99214; G2211

== ENCOUNTER → 2024-09-11 12:16 | Outpatient (AMB) | payer OTHER, SELFPAY ==
--- NOTE | 2024-09-11 12:16 | MHC.OFFVIS ---
Intake Visit Reasons: 3 mo f/u CIC Intake Note: Shea presents as a telehealth today 3 month follow up for CIC. CC: she states that she is not having any concerns at this time! Allergies amoxicillin [Augmentin] Allergy (Mild, Verified 09/11/24 12:16) Rash clavulanic acid [From Augmentin] Allergy (Mild, Verified 09/11/24 12:16) RASH HPI Comments Details: 78 y.o F with PMH of COPD, CAD, hx of polyps, GERD, who is here for follow up for i) hx of polyps. Had 2 dimunitive TA in 2016 (Dr Henry). Excellent prep. Repeat was recommended in 5-7 years. ii) chronic constipation. Was on trulance for earlier this year which she self dicontinued almost 3-4 months ago as did not think it was helping. Currently reports 2-3 BMs per week. No abd pain, has cramping occasionally that does not always correlate with defecation. 09/11/24: Here for telehealth follow-up. Overall doing better. Bowel movements 3 times a week. Sometimes has to strain. Otherwise, has incorporated fiber, MiraLax. No GI symptoms to include abdominal pain, nausea, vomiting. [facility] Medical History Obesity (BMI 30.0-34.9) Chronic respiratory failure Asthma-COPD overlap syndrome Incontinence in female History of adenomatous polyp of colon Pneumonitis Bronchopneumonia Hypogammaglobulinemia Chronic rhinitis Dizziness Headache Hyperlipidemia HTN (hypertension) Diabetes COPD (chronic obstructive pulmonary disease) Surgical History S/P right coronary artery (RCA) stent placement H/O colonoscopy History of foot surgery History of toe surgery History of bunionectomy Family History Mother No problems noted. Father No problems noted. 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 services: Yes (grand daughter monitoring engineer) Alcohol intake: never Patient Tobacco Use Status: Former Tobacco user Tobacco use type: Cigarette Advance Directives Date on File: 10/03/23 service: No Current occupational status: retired Sexual orientation: Straight/Heterosexual Gender identity: Female Review of Systems Const All systems reviewed & are unremarkable except as noted in HPI and below Physical Exam Vital Signs: Video visit: No acute distress No icterus noted No facial asymmetry Speaking in full sentences Telehealth Telehealth Telehealth Platform: [email or web address] Location of provider rendering services: practice address Location of patient: address on file Patient Identification confirmed using: Name, : Yes Telehealth method: video Patient verbally consented to treatment: Yes Patient verbally consented to billing insurance company: Yes Patient informed of any privacy concerns related to visit: Yes Minutes spent on Phone/Video with Pt.: 5 Assessment & Plan Assessment & Plan (1) Chronic constipation: Code(s): K59.09 - Other constipation Category: Medical Plan 1) Chronic constipaiton. Likely CIC. Overall improved. Will benefit from addition of stimulant laxative p.r.n.. Plan: -add senna 2 tablets as needed in the morning -continue fiber and MiraLax -elevate legs while having a BM Follow-up in 1 year as requested by the patient Medications: New sennosides (senna) 17.2 mg (2 x 8.6 mg) PO DAILY 90 days PRN 180 tabs 1RF constipation Coding Level of Care Code Tele Est Pt Level 3 (34366) Diagnoses Chronic constipation K59.09
--- OUTSIDE RECORDS SUMMARY | 2024-09-11 14:38 | XMS_ITS | Encounter Summary ---
Author Organization [facility] Address [address] [place] [address] Care Team Providers Care Electric Motor Repairing Supervisor Name Role Phone Kathy Perez MD Primary Care Prov ider Reason for Visit * Reason Onset Date Comments Referral 09/06/2024 Encounter Details Date Type Department Care Team (Late st Contact Info) Description 09/06/2024 Telephone Adult Medicine [address] [phone] Kathy Perez MD [address] [place] [address] Referral Social History Tobacco Use Types Packs/Day Years [...] as of this encounter Progress Notes * Ana Conte RN - 09/10/2024 3:33 PM EDT Spoke with Nephrology department, referral has not been processed there yet . Called and spoke to referral department . They stated it was just completed and faxed this afternoon ,have pt. Reach out to nephrology office in 1-2 days . Called pt. And informed her to call the office in 1-2 days to setup an appointment, she verbalized understanding * Kathy Perez MD - 09/10/2024 3:13 PM EDT No urgent * Bren Tim RN - 09/06/2024 11:53 AM EDT Referral was placed 08/29 as routine Please advise on increasing urgency * Ijeoma Gipson - 09/06/2024 11:42 AM EDT The patient is calling about her referral to Nephrology. She is asking if this can be ordered as urgent. She has concerns that she should be seen as soon as possible. Please advise. documented in this encounter Plan of Treatment Upcoming Encounters Date Type Department Care Team (Late st Contact Info) Description 09/12/2024 11:30 AM EDT Ancillary Procedure [facility] Cardiology [facility] [address] [phone] 10/03/2024 9:50 AM EDT Office Visit [facility] Cardiology [facility] [address] [phone] Kameron Zuñiga MD [address] [address] 01/28/2025 1:15 PM EDT Office Visit Adult Medicine [facility] [address] [place] [phone] Kathy Perez MD [address] [place] [address] documented as of this encounter Visit Diagnoses Not on filedocumented in this encounter Care Teams Electric Motor Repairing Supervisor Relationship Specialty Start Date End Date Kathy Perez MD [address] [place] [id number] PCP - General Internal Medicine 07/22/24 documented as of this encounter
--- OUTSIDE RECORDS SUMMARY | 2024-09-11 14:38 | XMS_ITS | Clinical Summary ---
Author Organization [facility] Address [address] [place] [address] Care Team Providers Care Crib Attendant Name Role Phone Kathy Christopher MD Primary [...] age to complete this topic Care Teams Crib Attendant Relationship Specialty Start Date End Date Kathy Christopher MD [address] [place] [address] PCP - General Internal Medicine 09/14/23
--- OUTSIDE RECORDS SUMMARY | 2024-09-11 14:38 | XMS_ITS | Encounter Summary ---
Author Organization [facility] Address [address] [place] [address] Care Team Providers Care Machine Biller Name Role Phone Kathy Perez MD Primary Care Prov ider Encounter Details Date Type Department Care Team (Late st Contact Info) Description 08/27/2024 11:33 AM EDT Anesthesia Event [facility] Pain Management [address] [place] [address] Negro Velasco MD [address] [place] [address] Anesthesia Record Procedure Summary Procedure Name Responsible [...] Procedure Summary Date: 08/27/24 Room / Location: [facility] Pain Management Anesthesia Start: 1133 Anesthesia Stop: [...] failure) (CMS/HCC) (+) Coronary artery disease involving [place] coronary artery of [place] heart without angina pectoris (+) SOTELO (dyspnea [...] Description 09/12/2024 11:30 AM EDT Ancillary Procedure [facility] Cardiology [place] [address] [phone] 10/03/2024 9:50 AM EDT Office Visit [place] [address] [address] Kameron Zuñiga MD [address] [address] 01/28/2025 1:15 PM EDT Office Visit Adult Medicine [address] [phone] Kathy Perez MD [address] [place] [phone] documented as of this encounter Visit Diagnoses [...] mg documented in this encounter Care Teams Machine Biller Relationship Specialty Start Date End Date Kathy Perez MD [address] [place] [phone] PCP - General Internal Medicine 07/22/24 documented as of this encounter
--- OUTSIDE RECORDS SUMMARY | 2024-09-11 14:38 | XMS_ITS | Clinical Summary ---
Author Organization [facility] Address [address] [place] [phone] Phone Care Team Providers Care Cat Breeder Name Role Phone Kathy Christopher MD Primary Care Provider + Social History Tobacco Use Types Packs/Day Years Used Date Smoking Tobacco: Never Assessed Comments Unknown Sex and Gender Information Value Date Recorded Sex Assigned at Not on file Legal Sex Female 5:13 PM EST Gender Identity Not on file Sexual Orientation Not on file Plan of Treatment Upcoming Encounters Date Type Department Care Team (Late st Contact Info) Description 09/20/2024 10:30 AM EDT Office Visit [facility]. [address] [phone] Everton Riddle MD [address] [phone] Health Maintenance Due Date Last Done Comments Diabetes: Ophthalmology Exam 09/10/2024 06/27/2014 Diabetes: Pedal Pulse Checked 09/10/2024 Diabetes: Sensory Foot Exam 09/10/2024 Diabetes: Visual Foot Exam 09/10/2024 Diabetes: Hemoglobin A1C 11/26/2024 08/26/2024, 02/0 11/2021 Pneumococcal Vaccine: 65+ Years Completed 03/30/2016, 04/28/2014, 03/05/2013, Additional history exists Influenza Vaccine Completed 03/26/2024, , 03/28/2022, Additional history exists Hepatitis B Vaccine Aged Out No longe r eligible based on patient's age to complete this topic Insurance [facility] ([id number]) [address] [id number] [address] [place] [address] Care Teams Cat Breeder Relationship Specialty Start Date End Date Kathy Christopher MD [address] [place] [phone] PCP - General 09/10/24
--- OUTSIDE RECORDS SUMMARY | 2024-09-11 14:38 | XMS_ITS | Encounter Summary ---
Author Organization [facility] Address [address] [place] [address] Care Team Providers Care Psychological Tests Sales Agent Name Role Phone Kathy Perez MD Primary Care Prov ider Reason for Visit * Reason Onset Date Comments testing 08/13/2024 Encounter Details Date Type Department Care Team (Late st Contact Info) Description 08/13/[address] [facility] [address] [place] [phone] Kameron Zuñiga MD [address] [place] [address] testing Social History Tobacco Use Types Packs/Day [...] still necessary. Please call her back at [phone]. documented in this encounter Plan of Treatment Upcoming Encounters Date Type Department Care Team (Late st Contact Info) Description 09/12/2024 11:30 AM EDT Ancillary Procedure [facility] Cardiology [place] [address] [address] 10/03/2024 9:50 AM EDT Office Visit [place] [address] [phone] Kameron Zuñiga MD [address] [address] 01/28/2025 1:15 PM EDT Office Visit Adult Medicine [address] [phone] Kathy Perez MD [address] [place] [address] documented as of this encounter Visit Diagnoses Not on filedocumented in this encounter Care Teams Psychological Tests Sales Agent Relationship Specialty Start Date End Date Kathy Perez MD [address] [place] [address] PCP - General Internal Medicine 2/3/25 documented as of this encounter
--- OUTSIDE RECORDS SUMMARY | 2024-09-11 14:38 | XMS_ITS | Clinical Summary ---
Author Organization [facility] Address [address] [place] [address] Phone Care Team Providers Care Second Ride Fare Collector Name Role Phone Kathy Perez MD Primary [...] 12/10/2018 Obstructive sleep apnea 11/21/2018 Overview (04/23/2024): [facility] Home Sleep Apnea Test: Date 11/18/2018; Wt 192#; BMI 33; HAYLEY 16, AI 1; HI 14; Unclassified apneas 0; Obstructive apneas 10; Central apneas 0; Mixed apneas 0; hypopneas 126; average oxygen saturation 88% (lowest 73% with saturations <88% for 5% or more of study) [facility] Polysomnogram treatment study. Date 01/11/2019. Wt [...] x1 06/2015 Coronary artery disease invo lving apache coronary artery of apache heart without angina pectoris 01/21/2015 Overview (04/23/2024): [...] Gastroparesis 07/17/2012 Overview (04/23/2024): Dr. Stephenson at [address] [place] [address] GERD (gastroesophageal reflux disease) 3 Insomnia 07/17/2012 [...] Encounters Date Type Department Care Team Description 09/06/2024 Telephone Adult Medicine [address] [phone] Kathy Nino MD Referral 08/27/2024 11:33 AM EDT Anesthesia Event [facility] Pain Management [address] [place] [address] Negro Velasco MD 08/27/2024 10:04 AM EDT - 08/27/2024 11:59 PM EDT Hospital Encounter [facility] Pain Management [address] [place] [address] Marcus Murcia DO Chang, Daniel J, MD Radiculopathy, cervical region Discharge Disposition: Home or Self Care 08/27/2024 9:08 AM EDT - 08/27/2024 11:59 PM EDT Hospital Encounter [facility] Xray [address] [place] [phone] Pain Discharge Disposition: Home or Self Care 08/13/2024 Telephone 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) (Primary Dx); Primary hypertension; Mixed hyperlipidemia; Stage 3a chronic kidney disease (CMS/HCC); Chronic obstructive pulmonary disease, unspecified COPD type (CMS/HCC); Congestive heart failure, unspecified HF chronicity, unspecified heart failure type (CMS/HCC); Urinary incontinence, unspecified type 07/30/2024 8:20 AM EST Anesthesia Event [facility] Pain Management [address] [place] [address] Negro Velasco MD Fox, Jillian, [place] 07/30/2024 8:12 AM EST - 07/30/2024 11:59 PM EST Hospital Encounter [facility] Pain Management [address] [place] [address] Marcus Murcia DO Chang, Daniel J, MD Barnes, Tyanna R, CRNA Radiculopathy, cervical region Discharge Disposition: Home or Self Care 07/24/2024 9:30 AM EST Ancillary Procedure [facility] Cardiology [facility] [address] [place] [phone] Coronary artery disease involving apache coronary artery of apache heart without angina pectoris; SOTELO (dyspnea on exertion) 07/22/2024 2:45 PM EST - 07/22/2024 11:59 PM EST Hospital Encounter [address] [phone] Pneumonia of both lower lobes due to infectious organism Discharge Disposition: Home or Self Care 07/18/2024 Telephone Adult Medicine [address] [phone] Amy Carlton LPN Fitting for DME (Faxed form from [employer]); Appointment 06/27/2024 10:30 AM EST Office Visit Adult Medicine [address] [phone] Pau Shultz PA Pneumonia of both lower lobes due to infectious organism (Primary Dx); Nausea and vomiting, unspecified vomiting type; Diarrhea, unspecified type; Type 2 diabetes mellitus with stage 3a chronic kidney disease, without long-term current use of insulin ([facility]) 06/24/2024 Telephone Adult Medicine [address] [phone] Kathy Nino MD [facility] Follow-up from Last 3 Months Immunizations Name Administration Dates Next Due Influenza trivalent, 0.5mL ( Fluad) 65yo and older 03/26/2024,02/28/2023,03/28/2022,03/22,03/13/2019,03/02/2018,03/01/2017 ,03/30/2016 Influenza, Unspecified 03/10/2022,2020,02/24/2020,04/06,05/06/2014,03/05/2013 REBAJ/Bob SARS-CoV-2 COVID -19, vector-nr, [id number], preservative free [...] PROCEDURE:TUBAL LIGATION OTHER SURGICAL HISTORY 2007 PROCEDURE: NV CORRECTION HAMMERTOE; COMMENT: FOOT SURGERY PROCEDURE: HISTORICAL FOOT SURGERY; COMMENT: 18 y/o bunionectomy UPPER GASTROINTESTINAL ENDOSCOPY 03/22/2012 PROCEDURE: NV UPPER GI ENDOSCOPY PERFORMED; COMMENT: Normal study UPPER GASTROINTESTINAL ENDOSCOPY 11/27/2015 PROCEDURE: NV UPPER GI ENDOSCOPY PERFORMED; COMMENT: Gastritis and polyp. Normal Esophagus and duodenum. UPPER GASTROINTESTINAL ENDOSCOPY 2012 PROCEDURE: NV UPPER GI ENDOSCOPY PERFORMED; COMMENT: FOR GERD BLADDER SUSPENSION 05/29/2018 PROCEDURE: HISTORICAL BLADDER SUSPENSION CYSTOSCOPY 03/18/2019 PROCEDURE: HISTORICAL CYSTOSCOPY; COMMENT: Normal COLONOSCOPY 06/2005 PROCEDURE: HISTORICAL COLONOSCOPY; COMMENT: tubular adenoma COLONOSCOPY 06/2010 PROCEDURE: HISTORICAL COLONOSCOPY; COMMENT: negative COLONOSCOPY 12/16/2015 PROCEDURE: HISTORICAL COLONOSCOPY; COMMENT: tubular adenoma CARDIAC CATHETERIZATION 09/26/2014 PROCEDURE: HISTORICAL CARDIAC CATH; COMMENT: RCA stent [facility] UPPER GASTROINTESTINAL ENDOSCOPY 08/18/2004 PROCEDURE: NV UPPER GI ENDOSCOPY PERFORMED FOOT SURGERY 12/2013 PROCEDURE: HISTORICAL FOOT SURGERY; COMMENT: for second toe arthroplasty SHOULDER SURGERY Left PROCEDURE: HISTORICAL SHOULDER SURGERY; COMMENT: Arthroscopy with Dr. Berg KNEE SURGERY Left PROCEDURE: HISTORICAL KNEE SURGERY; COMMENT: Arthroscopy Medical History Medical History Date Comments Hypertension DX:Hypertension COPD (chronic obstructive pu lmonary disease) ([facility]/HCC) DX:COPD (chronic obstructive pulmonary disease) (HCC) Heart failure DX:Heart failure (HCC) Diabetes mellitus (CMS/[facility]) DX:D iabetes mellitus (HCC) Asthma 07/17/2012 DX:Asthma [...] Description 09/12/2024 11:30 AM EDT Ancillary Procedure [facility] Cardiology [facility] [address] [phone] 10/03/2024 9:50 AM EDT Office Visit [facility] Cardiology [facility] [address] [phone] Kameron Zuñiga MD [address] [address] 01/28/2025 1:15 PM EDT Office Visit Adult Medicine [address] [phone] Kathy Perez MD [address] [place] [address] Health Maintenance Due Date Last Done Comments [...] 11:03 AM EDT Coronary artery disease involving apache coronary artery of apache heart without angina pectoris Hyperlipidemia, unspecified hyperlipidemia [...] 11:50 AM EST Coronary artery disease involving apache coronary artery of apache heart without angina pectoris SOTELO (dyspnea on [...] of2 resultswithin the time period is included. [facility] Glucose POCT 101(H) 70 - 100 mg/dL 08/27/2024 9:34 AM EDT [facility] Blood Capillary blood specimen / Unknown 08/27/2024 9:33 AM EDT 08/27/2024 9:35 AM EDT us Generic Provider Poct LAB POINT OF CARE TEST DOCKED DEVICE UNSOLICITED RESULTS Final Result [facility] [address] [place] [address], [place] [phone] * Lipid panel with reflex to direct LDL (08/26/2024 11:03 AM EDT) [facility] Cholesterol 141 0 - 200 mg/dL LAB CHEMISTRY METHOD 08/26/2024 2:15 PM EDT [facility] Triglycerides 117 0 - 150 mg/dL LAB CHEMISTRY METHOD 08/26/2024 2:15 PM T [facility] HDL 55 >=40 mg/dL LAB CHEMISTRY METHOD 08/26/2024 2:15 PM EDT [facility] LDL Calculated 63 0 - 100 mg/dL LAB CHEMISTRY METHOD 08/26/2024 2:15 PM [facility] VLDL Cholesterol Gus 23.4 mg/dL LAB CHEMISTRY METHOD 08/26/2024 2:15 PM EDT [facility] Non HDL Chol. (LDL+VLDL) 86 <145 mg/dL LAB CHEMISTRY METHOD [facility] Chol/HDL Ratio 2.6 0.0 - 4.4 LAB CHEMISTRY METHOD 08/26[facility]2024 [facility] Blood Venous blood specimen / Unknown Venipuncture / Unknown 08/26/2024 11:03 AM EDT 08/26/2024 11:03 AM EDT Elisa Romero [facility] LAB BLOOD ORDERABLES Final Result [facility] [address] [place] [address], * Magnesium (08/26/2024 11:03 AM EDT) [facility] Magnesium 2.0 1.9 - 2.6 mg/dL LAB CHEMISTRY METHOD 08/26/2024 2:12 PM EDT [facility] Blood Venous blood specimen / Unknown Venipuncture / Unknown 08/26/2024 11:03 AM EDT 08/26/2024 11:03 AM EDT Elisa Romero NP LAB BLOOD ORDERABLES Final Result Performing Organization Address [facility]/ZIP Co de Phone Number [facility] [address] [place] [address], * Hemoglobin A1c (08/26/2024 11:03 AM EDT) [facility] Hemoglobin A1C 6.4 <6.5 % LAB CHEMISTRY METHOD 08/26/2024 1:50 PM EDT [facility] Mean Bld Glu Estim. 137 mg/dL LAB CHEMISTRY METHOD 08/26/2024 1:50 PM EDT [facility] Blood Venous blood specimen / Unknown Venipuncture / Unknown 08/26/2024 11:03 AM EDT 08/26/2024 11:03 AM EDT Kathy Perez MD LAB BLOOD ORDERABL ES Final Result [facility] [address] [place] [address], [place] [phone] * (ABNORMAL) Basic metabolic panel (08/26/2024 11:03 AM EDT) Sodium 141 133 - 145 mmol/L LAB CHEMISTRY METHOD 08/26/2024 2:12 PM [facility] Potassium 4.1 3.5 - 5.5 mmol/L LAB CHEMISTRY METHOD 08/26/2024 2:12 PM [facility] Chloride 104 96 - 110 mmol/L LAB CHEMISTRY METHOD 08/26/2024 2:12 PM [facility] CO2 26 21 - 32 mmol/L LAB CHEMISTRY METHOD 08/26/2024 2:12 PM [facility] Anion Gap 11 3 - 11 LAB CHEMISTRY METHOD 08/26/2024 2:12 PM [facility] Glucose 104(H) 70 - 100 mg/dL LAB CHEMISTRY METHOD 08/26/2024 2:12 PM [facility] BUN 18 5 - 25 mg/dL LAB CHEMISTRY METHOD 08/26/2024 2:12 PM [facility] Creatinine 1.32(H) 0.50 - 1.10 mg/dL LAB CHEMISTRY METHOD 08/26/2024 2:12 PM [facility] eGFR 41(L) >=60 mL/min/1. 73m2 LAB CHEMISTRY METHOD 08/26/2024 2:12 PM [facility] Comment:Calculation based on the??Chronic Kidney Disease Epidemiology Collaboration (CKD-EPI) equation refit??without adjustment for race. BUN/Creatinine Ratio 13.6 LAB CHEMISTRY METHOD 08/26/2024 2:12 PM [facility] Calcium 9.5 8.5 - 10.5 mg/dL LAB CHEMISTRY METHOD 08/26/2024 2:12 PM [facility] Blood Venous blood specimen / Unknown Venipuncture / Unknown 08/26/2024 11:03 AM EDT 08/26/2024 11:03 AM EDT Elisa Romero [facility] BLOOD ORDERABLES Final Result [facility] [address] [place] [address], [place] [phone] * NM LEXISCAN STRESS TEST W/ MYOCARDIAL [...] Signed Date: 07/22/2024 17:44 ET Workstation ID: [id number] Transcribed By: Self Edit Transcribed Date: 07/22/2024 17:42 ET Narrative 07/22/2024 5:44 PM EST HISTORY: pneumonia Dx at [facility]. 4 week f.u TECHNIQUE: PA and lateral radiographs of the chest COMPARISON: Chest radiograph from 06/23/2023 FINDINGS: There is a normal cardiomediastinal silhouette. ??Atherosclerosis of the thoracic aorta. ??Increased airspace opacities within the right lower lung zone. ??Mild degenerative changes of the thoracic spine. Procedure Note Moo Coyle MD - 07/22/2024 HISTORY: pneumonia Dx at [facility]. 4 week f.u TECHNIQUE: PA and lateral [...] Signed Date: 07/22/2024 17:44 ET Workstation ID: [id number] Transcribed By: Self Edit Transcribed Date: 07/22/2024 17:42 ET Result [facility] Pau LOPEZ IMG XR PROCEDURES Final Result * Urine Albumin Creatinine Ratio (03/26/2024) [facility] Urine Albumin Creatinine Ratio Abstracted Result [facility] Provider HEALTH MAINTENANCE Final Result * Falls Risk Assessment (03/26/2024) [facility] Falls Risk Assessment Abstracted Result [facility] Provider HEALTH MAINTENANCE Final Result * Depression Screening (03/26/2024) [facility] Depression Screening Abstracted Result [facility] Provider HEALTH MAINTENANCE Final Result * Diabetes Foot Exam (12/04/2023) [facility] Diabetes: Annual Foot Exam Abstracted Result [facility] HEALTH MAINTENANCE Final Result * Diabetes Eye Exam (11/28/2023) [facility] Diabetes: Annual Retina Eye Exam Abstracted Comment:External Completion of test per patient (Patient reports normal results) us Historical Provider HEALTH MAINTENANCE Final Result * Hepatitis C Screening (01/18/2016) Hepatitis C Screening Abstracted us Historical Provider HEALTH MAINTENANCE Final Result from Last 3 Months or Most Recently Relevant to Health Maintenance Insurance [facility] MEDICARE Member Subscriber Plan / Payer (Ef fective 2012-Present) Name:Shea Ramirez Relation to Subscriber:Self Name:Shea Ramirez Payer ID:[id number] Group ID:[id number] Type:Not on file Address: [place] [address] [address] [phone] Care Teams Second Ride Fare Collector Relationship Specialty Start Date End Date Kathy Perez MD [address] [place] [id number] PCP - General Internal Medicine 07/22/24
--- OUTSIDE RECORDS SUMMARY | 2024-09-11 14:38 | XMS_ITS | Data Portability ---
Author Organization [place] [place] [facility] [employer] Address [address] [place] [address] Care Team Providers Care At Risk Paraprofessional Name Role Phone [facility] Referring Provider [facility] OTHER Assessment Encounter Date Assessment Date Assessment LastModified by Organization Details LastModified Time 04/20/2024 04/20/2024 I provided real -time medical direction via phone for this encounter and was available for additional phone-based assistance as needed. I have reviewed and agree with the Assessment and Plan as documented by the Cereal Maker. Patient given the opportunity to ask questions. [...] on metoprolol to for rate control. Per woodworking machine operator on the scene, vital signs are stable [...] have any evidence of volume overload per woodworking machine operator on the scene. She has no evidence [...] QL IA, respiratory specimen 2022 023 [email or web address] [facility], [address] [place] [address], [phone], 3 20:04:39 rapid flu (A+B) 2022 023 [email or web address] [facility], [address] [place] [address], [phone], 3 20:04:40 rapid strep group A, throat 2022 023 [email or web address] [facility], [address] [place] [address], [phone], 3 20:04:38 culture, urine 2022 023 CLEMENT [facility] (Centralized Electronic Ordering - All Locations), Patient Can Go To The Location Of Their Choice, [id number] 3 07:41:06 Referral None recorded. Procedures None recorded. Surgeries None recorded. Imaging None recorded. Medication Orders Levaquin 500 mg tablet [email or web address] [place] [address], [address] [place] [address], [address], 13:34:52 Patient TargetsNo targets recorded. Patient InstructionsNo instructions recorded. Reason for Referral None Reported. Results Created Date Observation Date Name Description Value Unit Range Abnormal Flag Note LastModifiedBy Organization Detail LastModifiedTime 09/28/1909/27/2022 URINE CULTU RE specimen description URINE Not Available [facility] (Centralized Electronic Ordering - All Locations) Patient Can Go To The Location Of Their Choice, [facility] 09/29/2022 07:41:06 09/28/1909/27/2022 URINE CULTU RE special requests NONE Not Available [facility] (Centralized Electronic Ordering - All Locations) Patient Can Go To The Location Of Their Choice, [facility] 09/29/2022 07:41:06 09/28/1909/29/2022 URINE CULTU RE culture NO GROWTH Not Available [facility] (Centralized Electronic Ordering - All Locations) Patient Can Go To The Location Of Their Choice, [facility] 09/29/2022 07:41:06 09/28/1909/29/2022 URINE CULTU RE report status FINAL 2022 Not Available [facility] (Centralized Electronic Ordering - All Locations) Patient Can Go To The Location Of Their Choice, [facility] 09/29/2022 07:41:06 06/17/2006/17/2023 rapid strep group A, throa t Strep negati ve Not Available [facility] ed [address] [place] [address], [phone], 06/17/2023 20:04:20 06/17/20 23 06/17/2023 rapid flu (A+B) Flu negati ve Not Available [facility] ed [address] [place] [address], [phone], 06/17/2023 20:04:18 06/17/20 23 06/17/2023 rapid SARS CoV 2 Ag, QL IA, respi rator y speci men rapid SARS CoV 2 Ag, QL IA, respiratory specimen negati ve Not Available [facility] ed [address] [place] [address], [phone], 06/17/2023 20:04:15 Result Notes None recorded. Medical Equipment None Reported. Allergies Allergen ID Allergen Name Allergen Category Reaction Reaction Severity Criticality Documentation Date Start Date Code Code System Note Provider Name and Address Organization Details Recorded Time 7839 Product containin odilon penicilli n (product) medicatio n Not available Not available Not available 04/16/2024 42455 8001 SNOMED Not Available [facility] - production [...] Updated DateTime 3 16 /min 162.56 cm 56312.5 6 g 90 /min 96 % 96 % 99.5 [degF] 143 mm[Hg] 68 mm[Hg] Not Available [facility] - production 3 19:48:26 Date Recorded Body weight Respiratory rate Heart rate Body height Body temperature Oxygen saturation Oxygen saturation in Arterial blood by Pulse oximetry Systolic blood pressure Diastolic blood pressure Provider Name and Address Organization Details Last Updated DateTime 4 83546.5 6 g 18 /min 111 /min 162.56 [...] % 98 % 95.7 [degF] 73 /min 85212.5 6 g 16 /min 125 mm[Hg] 67 [...] [id number] Praveen Valdovinos MD Main - [facility] [address] [place] [phone] 09/27/2022 13:30:25 09/29/2022 10:29:50 Acute urinary tract infection 564569582 N39.0 [id number] Petra Elmore MD Main - [facility] [address] [place] [phone] 06/17/2023 19:48:24 06/20/2023 12:24:39 Upper respiratory infection 18418226 J06.9 Evaluation in the field was performed by my woodworking machine operator colleague, as noted above, I provided real-time [...] shortness of breath, cough, chest pain, fever. [id number] Jackie Ardon MD Main - [address] [phone] 04/20/2024 14:23:19 04/20/2024 19:15:29 Decreased urine output 275974636 R34 Chronic ki dney disease stage 3 575448089 N18.30 Tachycardia 9960518 R00. 0 Health Concerns Section Related Observation LastModified by Organization Detai ls LastModified Time None Recorded Concern Status LastModified by Organization Details LastModified Time None Recorded Advance Directives Directive None Recorded Payers Encounter Date Sequence Insurance Name Policy Number Policy Wagner Covered Member ID Wagner Member ID Guarantor Name 09/27/2022 1 [facility] - DOS PRIOR TO 2022 - DUAL ELIGIBLE (MEDICARE REPLACEMENT/ADV ANTAGE - HMO) Shea Pares [id number] Shea J Pares 06/17/2023 1 [facility] - DOS ON OR AFTER 2022 - DUAL ELIGIBLE - PRISON OPTIONS AND ONE CARE (MEDICARE REPLACEMENT/ADV ANTAGE - HMO) Shea Pares [id number] Shea J Pares 04/20/2024 1 [facility] - DOS ON OR AFTER 2022 - DUAL ELIGIBLE - PRISON OPTIONS AND ONE CARE (MEDICARE REPLACEMENT/ADV ANTAGE - HMO) Shea Pares [id number] Shea J Pares Notes Date Note Type [...] Member denies F/c/n/v/d Praveen Valdovinos MD [address] [facility],[address], [place], [address], [place] 09/27/2022 13:35:12 023 text/ht ml HPI: Member [...] process visit. ................................... ................................... ................................... ................................... . Cereal Maker Note From Max Clemens: Pt reports dry [...] ................................... . Disposition: Fulfilled Petra Elmore MD [address] [place] [address],[address], [place], [phone], [email or web address] 06/17/2023 20:04:49 024 text/ht ml HPI: mbr with multiple complaints, states experienced SOB last night where she had decided to take a diuretic, denies any Urine output at this time questioning retention , but does mention changing briefs multiple times over night, denies any Abdominal pain pressure or discomfort, no LE edema CP/N/V. per mbr B/P 153/78 HR 111. mbr requesting [facility] for evaluation.Protocol Used: Urinary SymptomsProtocol-Based Disposition: Consider [facility], EARTH MOVING MACHINE OPERATOR, MD/GUEST RELATIONS ASSOCIATE triage, PCP, or ED /Urgent Care Visit [...] Comments: Reviewed HPI SEGMD: Visit closed by [facility] end of shift before medic note transferred into [email or web address], so I entered it below: SummarySmartcare visit [...] this was present yesterday in visit with GUEST RELATIONS ASSOCIATE as well. Pt afebrile. Lung sounds clear bilaterally. Pt concerned about possible cloudy urine as well. Pt was unable to provide urine specimen for testing. Consulted with [facility] Dr. Casas who advised continuing to monitor symptoms. Reviewed red flags for ED. Pt education provided.Services ProvidedPatient EducationDispositionFulfilledWas patient sent to ED?[facility] consulted on the case?Yes - Solange Casas MD [address] [facility],[address], [place], [address], [place] [email or web address] - [employer] 04/23/2024 15:04:20 OBGyn Episode No OBEpisode recorded.
--- OUTSIDE RECORDS SUMMARY | 2024-09-11 14:38 | XMS_ITS | Clinical Summary ---
Author Organization [facility] Address [address] [place] [address] Care Team Providers Care Care Associate Name Role Phone Pito Thompson MD Primary Care Provider Allergies No known active allergies Medications Medication Sig Dispensed Refills Start Date End Date Status aspirin enteric coated (ECOTRIN LOW STRENGTH) 81 MG EC tabletIndications:Cor onary artery disease involving [place] heart, unspecified vessel or lesion type, unspecified [...] Inactivated Comments 07/24/2021 9:24 PM Care Teams Care Associate Relationship Specialty Start Date End Date Pito Thompson MD [address] [place] [id number] PCP - General 07/25/21
--- OUTSIDE RECORDS SUMMARY | 2024-09-11 14:38 | XMS_ITS | Encounter Summary ---
Author Organization [facility] Address [address] [place] [address] Care Team Providers Care Millinery Salesperson Name Role Phone Kathy Perez MD Primary Care Prov ider Reason for Referral * Pain Management (Routine) - Pending Review Specialty Diagnoses / Procedures Referred By Contac t Referred To Contact Pain Medicine Diagnoses Radiculopathy, cervical region Procedures Injection epidural cervical without guidance Marcus Murcia DO [address] [address] Phone: tel: fax: Referral ID Status Reason Start Date Expiration Date V isits Requested Visits Authorized [id number] Pending Review 08/23/2024 08/23/2025 1 1 Reason for Visit * Pain Management (Routine) - Pending Review Specialty Diagnoses / Procedures Referred By Contac t Referred To Contact Pain Medicine Diagnoses Radiculopathy, cervical region Procedures Injection epidural cervical without guidance Marcus Murcia DO [address] [address] Phone: tel: fax: Referral ID Status Reason Start Date Expiration Date V isits Requested Visits Authorized [id number] Pending Review 08/23/2024 08/23/2025 1 1 Encounter Details Date Type Department Care Team (Latest Contact Info) Description 08/27/2024 10:04 AM EDT - 08/27/2024 11:59 PM EDT Hospital Encounter [facility] Pain Management [address] [place] [address] Marcus Murcia DO [address] [address] Negro Velasco MD [address] [place] [address] Radiculopathy, cervical region Discharge Disposition: Home or [...] be sent through Care Everywhere. * Sedation (Sudanese) * Cervical Epidural Steroid: Post-op (Sudanese) documented in this encounter Medications at Time [...] Celaya RN - 08/27/2024 10:30 AM EDT [phone] * Brown Celaya RN - 08/27/2024 10:30 [...] gently redirected into the epidural space utilizing [id number] syringe. Once in place, needle placement was [...] Description 09/12/2024 11:30 AM EDT Ancillary Procedure [place] [address] [address] 10/03/2024 9:50 AM EDT Office Visit [facility] [address] [address] Kameron Zuñiga MD [address] [address] 01/28/2025 1:15 PM EDT Office Visit Adult Medicine [address] [address] Kathy Perez MD [address] [place] [address] Scheduled Orders Name Type Priority Associated Diagnoses [...] 08/27/2024 documented in this encounter Care Teams Millinery Salesperson Relationship Specialty Start Date End Date Kathy Perez MD [address] [place] [address] PCP - General Internal Medicine 07/22/24 documented as of this encounter
--- OUTSIDE RECORDS SUMMARY | 2024-09-11 14:38 | XMS_ITS | Encounter Summary ---
Author Organization [facility] Address [address] [place] [address] Care Team Providers Care Gear Machinist Name Role Phone Kathy Perez MD Primary Care Prov ider Encounter Details Date Type Department Care Team (Latest Contact Info) Description 08/27/2024 9:08 AM EDT - 08/27/2024 11:59 PM EDT Hospital Encounter [facility] Xray [address] [place] [id number] Pain Discharge Disposition: Home or Self Care [...] Description 09/12/2024 11:30 AM EDT Ancillary Procedure [facility] [address] [address] 10/03/2024 9:50 AM EDT Office Visit [facility] Cardiology [facility] [address] [address] Kameron Zuñiga MD [address] [address] 01/28/2025 1:15 PM EDT Office Visit [facility] [address] [place] [address] Kathy Perez MD 4 [place] [address] Pending Results Name Type Priority Associated Diagnoses [...] POCT Glucose, blood (08/27/2024 9:33 AM EDT) [facility] Glucose POCT 101(H) 70 - 100 mg/dL 08/27/2024 9:34 AM EDT [facility] Blood Capillary blood specimen / Unknown 08/27/2024 9:33 AM EDT 08/27/2024 9:35 AM EDT us Generic Provider Poct LAB POINT OF CARE TEST DOCKED DEVICE UNSOLICITED RESULTS Final Result [facility] [address] [place] [address], documented in this encounter Visit Diagnoses Diagnosis Pain Generalized pain documented in this encounter Care Teams Gear Machinist Relationship Specialty Start Date End Date Kathy Perez MD [address] [place] [address] PCP - General Internal Medicine 07/22/24 documented as of this encounter
== END ==
LOC: HO.HGI 12:16
PROVIDERS: PCP Internal Medicine; Visit Provider Internal Medicine
DX: K59.09 Other constipation (principal)
CPT/HCPCS: 99213

== ENCOUNTER 2024-09-17 13:35 | Outpatient (AMB) | payer OTHER, SELFPAY ==
--- NOTE | 2024-09-17 14:05 | AM.OFFWIN_ITS ---
Intake Vital Signs 09/17/24 14:18 Height 5 ft 4 in Weight 179 lb BMI 30.7 BP 130/76 Blood Pressure Location Lt brachial Position Sitting Pulse 66 Pulse Source Pulse Oximeter Temp 99.8 F Temp Source Oral Pulse Oximetry (%) 98 Oxygen Delivery Method Room Air Intake Visit Reasons: EP UTI? Intake Note: Patient here for frequent urination and burning sensation that started monday night. Patient Tobacco Use Status: Former Tobacco user Allergies amoxicillin [Augmentin] Allergy (Mild, Verified 09/17/24 14:20) Rash clavulanic acid [From Augmentin] Allergy (Mild, Verified 09/17/24 14:20) RASH Do you need a note to return to daycare/school/sports/work: No HPI HPI Comments History of Present Illness Details This is a 78-year-old female With a past medical history of hypertension, hyperlipidemia, hyperglycemia, CHF and COPD not currently oxygen dependent presenting for re-evaluation of vaginal itching and dysuria. Patient was initially seen on September 04 for evaluation of dysuria. We patient was prescribed Levaquin 500 mg that she took for 5 days. patient's urine culture was negative. Patient states that she felt better after taking the Levaquin however her symptoms have returned. Patient denies having any fevers, chills, abdominal pain, urinary frequency or vaginal discharge. [facility] Medical History Obesity (BMI 30.0-34.9) Chronic respiratory failure Asthma-COPD overlap syndrome Incontinence in female History of adenomatous polyp of colon Pneumonitis Bronchopneumonia Hypogammaglobulinemia Chronic rhinitis Dizziness Headache Hyperlipidemia HTN (hypertension) Diabetes COPD (chronic obstructive pulmonary disease) Surgical History S/P right coronary artery (RCA) stent placement H/O colonoscopy History of foot surgery History of toe surgery History of bunionectomy Family History Mother No problems noted. Father No problems noted. 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 services: Yes (grand daughter diver tender) Alcohol intake: never Patient Tobacco Use Status: Former Tobacco user Tobacco use type: Cigarette Advance Directives Date on File: 10/03/23 service: No Current occupational status: retired Sexual orientation: Straight/Heterosexual Gender identity: Female Review of Systems Const All systems reviewed & are unremarkable except as noted in HPI and below Reports no additional complaints, Reports chills, Denies fatigue and Denies fever(s) Eyes Reports no additional complaints ENT Reports no additional complaints Card Reports no additional complaints Resp Reports no additional complaints GI Reports no additional complaints Denies nocturia, Reports dysuria, Denies vaginal discharge, Denies vaginal dryness, Denies vaginal odor and Reports vaginal pruritus Musc Reports no additional complaints Skin/Breast Reports system reviewed and no additional complaints, except as documented Neuro Reports no additional complaints Psych Reports no additional complaints Endo Reports no additional complaints and Denies fatigue Aller/Immun Reports no additional complaints Physical Exam Vital Signs: Last Vital Signs Temp 99.8 F 09/17/24 14:18 Pulse 66 09/17/24 14:18 BP 130/76 09/17/24 14:18 Pulse Ox 98 09/17/24 14:18 Oxygen Delivery Method Room Air 09/17/24 14:18 BMI result Body Mass Index 30.7 Const General: cooperative, comfortable and no acute distress; No ill appearing Nutritional Appearance: well nourished Orientation/consciousness: patient oriented x3 Limitations: no limitations GI Palpation (GI): Soft to palpation, nontender, no guarding and not rigid Auscultation: normal bowel sounds General: Yes Bimanual renal exam normal bilaterally, Yes bladder normal to palpation and Yes no CVA tenderness External Female Exam: normal external appearance, normal appearance of the urethra, No erythema, No externally tender, No external swelling, No lesion, No urethral discharge and No tender Bimanual exam- vagina & uterus: bladder normal to palpation Back/Spine/Pelvis Back: no CVA tenderness Skin General skin exam: no rashes or lesions noted Neuro General: patient oriented x3 Psych Appearance: grossly normal Mental Status: mental status grossly normal Insight: Good insight present (Psych) Judgement: Good judgement present (Psych) Results AMB Urinalysis, Automated UA Leukoctes 500 Haritha/uL Last Edit by MARLA Meza on 09/17/24 14: 22 UA Nitrite Negative Last Edit by MARLA Meza on 09/17/24 14:22 UA Urobilinogen 0.2 mg/dL Last Edit by [facility], [facility] on 09/17/24 14:22 UA Protein 0 mg/dL [facility], [facility] on 09/17/24 14:22 UA pH 6.0 Last Edit by [facility], [facility] on 09/17/24 14:22 UA Blood 0 Jefe/uL Last Edit by [facility], [facility] on 09/17/24 14:22 UA Specific [place] 1.010 Last Edit by [facility], [facility] on 09/17/24 14:22 UA Ketone Negative Last Edit [facility], [facility] on 09/17/24 14:22 UA Bilirubin 0 mg/dL Last Edit by [facility], [facility] on 09/17/24 14:22 UA Glucose 0 mg/dL Last Edit [facility] on 09/17/24 14:22 Results Reviewed Results Reviewed: Laboratory Last Values Urine pH (Auto) 6.0 09/17/24 14:21 Specific [place] (Auto) 1.010 09/17/24 14:21 Urine Protein (Auto) 0 mg/dL 09/17/24 14:21 Glucose (UA)(Auto) 0 mg/dL 09/17/24 14:21 Urine Ketones (Auto) Negative 09/17/24 14:21 Urine Blood (Auto) 0 Jefe/uL 09/17/24 14:21 Urine Nitrite (Auto) Negative 09/17/24 14:21 Urine Bilirubin (Auto) 0 mg/dL 09/17/24 14:21 Urine Urobilinogen (Auto) 0.2 mg/dL 09/17/24 14:21 Leukocyte Esterase (Auto) 500 Haritha/uL 09/17/24 14:21 Assessment & Plan Assessment & Plan (1) Vaginitis: Comment: Urinalysis is reviewed. Urine culture will be obtained. Bacterial vaginosis panel is also obtained and results are pending. Code(s): N76.0 - Acute vaginitis Qualifiers: Chronicity: subacute Qualified Code(s): N76.1 - Subacute and chronic vaginitis Plan: No further medications are prescribed at this time. Will await urine culture and BV panel at this time. Patient is in agreement with this plan of care. Orders: Orders AMB Urinalysis Automated Today Z13.9 - Encounter for screening, unspecified Bacterial Vaginosis Panel Today N76.0 - Acute vaginitis Coding Level of Care Code Est Pt Level 3 (19233) Diagnoses Subacute vaginitis N76.1 Chronicity: subacute Time Spent (min) 30
[2024-09-17 14:18] VITALS: BP 130/76; PULSE 66; TEMP 37.7; O2SAT 98; BMI 30.7
--- OUTSIDE RECORDS SUMMARY | 2024-09-17 16:07 | XMS_ITS | Encounter Summary ---
Author Organization [facility] Address [address] [place] [address] Care Team Providers Care Incinerator Plant Supervisor Name Role Phone Kameron Zuñiga MD Unavailable Katya Lopez NP Unavailable Unavailab le Kathy Christopher MD Primary Care Prov ider Be Pacheco NP Unavailable [phone] Maycol Infante MD Unavailable Unavailable Sebastian Martinez MD Unavailable UnavailEve Blackmon MD Unavailable Elisa Romero NP Unavailable [phone] Marcus Murcia DO Unavailable Unavailable Encounter Details Date Type Department Care Team Description 01/01/2024 Rougher Operator Report Medical Records [address] [place] [address] Marcus Murcia DO Social History Tobacco Use Types Packs/Day Years Used Date Smoking Tobacco: Former Cigarettes 2 31 0 1958 - 07/17/1989 Smokeless Tobacco: Never Alcohol Use Standard Drinks/Week Comments No 0 (1 standard drink = 0.6 oz pur e alcohol) Sex Assigned at Date Recorded Not on file Job Start Date Occupation Industry Not on file Not on file Not on file documented as of this encounter Plan of Treatment Not on file documented as of this encounter Visit Diagnoses Not on filedocumented in this encounter Care Teams Incinerator Plant Supervisor Relationship Specialty Start Date End Date Kathy Christopher MD [address] [place], [place] [phone] PCP - General Internal Medicine 01/21/22 Kameron Zuñiga MD Air Pumper Cardiovascular Disease 08/04/21 Katya Lopez NP Cardiology 08/04/21 01/30/24 Be Pacheco NP [address] [place] [address] Nurse Practitioner Cardiology 10/17/22 01/30/24 Maycol Infante MD [address] [place] [address] Specialist Pulmonology 10/19/22 Sebastian Martinez MD [address] [place] [address] Specialist Ophthalmology 03/21/23 Eve Juan MD [address] [place] [address] [place] [address] Specialist UROGYNECOLOGY 03/21/23 Elisa Romero NP [address] [place] [address] [place] [address] Cardiology 01/31/24 Marcus Murcia DO [address] [place] [address] [place] [address] Specialist Physiatry 03/26/24 documented as of this encounter
--- OUTSIDE RECORDS SUMMARY | 2024-09-17 16:07 | XMS_ITS | Encounter Summary ---
Author Organization [facility] Address [address] [place] [address] Care Team Providers Care Supervisor Asphalt Paving Name Role Phone Wiley Thompson MD Primary Care Provider Kameron Cornejo MD Unavailable Katya Lopez NP Unavailable Unavailab Kathy Haley MD Primary Care Prov ider Be Pacheco NP Unavailable [phone] Maycol Infante MD Unavailable Unavailable Sebastian Martinez MD Unavailable UnavailEve Blackmon MD Unavailable Elisa Romero NP Unavailable [phone] Marcus Murcia DO Unavailable Unavailable Encounter Details Date Type Department Care Team Description 12/15/2017 Orders Only Adult Medicine [address] [phone] Wiley Thompson MD Preoperative examination; Screening for deficiency anemia Social History Tobacco Use Types Packs/Day Years [...] on file documented as of this encounter Results * (ABNORMAL) BASIC METABOLIC PANEL (12/26/2017 1:43 PM EDT) GLUCOSE 109(H) 70 - 100 mg/dL 12/26/2017 5:44 PM EDT [facility] Comment:Reference range appl icable to fasting specimens only Blood Urea Nitrogen 9 5 - 25 mg/dL 12/26/2017 5:44 PM EDT [facility] 1.02 0.5 - 1.1 mg/dL 12/26/2017 5:44 PM EDT [facility] GLOMERULAR FILTRATION RATE 53 12/26/2017 5:44 PM EDT [facility] Comment: If patient is -Faroese, multiply result by 1.21 Chronic Kidney Disease: < 60 ml/min/1.73 square meters Kidney Failure: < 15 ml/min/1.73 square meters NA 144 133 - 145 mmol/L 12/26/2017 5:44 PM EDT [facility] K 4.4 3.5 - 5.5 mmol/L 12/26/2017 5:44 PM EDT [facility] CL 106 96 - 110 mmol/L 12/26/2017 5:44 PM EDT [facility] CARBON DIOXIDE (CO2) 29 21 - 32 mmol/L 12/26/2017 5:44 PM EDT [facility] ANION GAP 9 3 - 11 12/26/2017 5:44 PM EDT [facility] CALCIUM 9.2 8.5 - 10.5 mg/dL 12/26/2017 5:44 PM EDT [facility] 12/26/2017 1:43 PM EDT 12/26/2017 1:44 PM EDT Wiley Thompson MD LAB [facility] * (ABNORMAL) CBC (AUTO DIFF PLATELET) (12/26/2017 1:43 PM EDT) Pathologist [facility] WBC 6.9 4.8 - 10.8 x10-3 12/26/2017 1:59 PM EDT [facility] RBC 3.9 3.8 - 4.8 x10-6 12/26/2017 1:59 PM EDT [facility] HGB 11.8 11.5 - 16.0 g/dl 12/26/2017 1:59 PM EDT [facility] HCT 35.9 35 - 47 % 12/26/2017 1:59 PM EDT [facility] MCV 92.8 79 - 98 fl 12/26/2017 1:59 PM EDT [facility] MCH 30.5 27 - 32 pg 12/26/2017 1:59 PM EDT [facility] MCHC 32.9 32 - 37 g/dl 12/26/2017 1:59 PM EDT [facility] RDW 15.2(H) 11 - 15 % 12/26/2017 1:59 PM EDT [facility] PLT COUNT 214 130 - 400 x10-3 12/26/2017 1:59 PM EDT [facility] MEAN PLATELET VOLUME 10.6 7 - 11 fl 12/26/2017 1:59 PM EDT [facility] NEUT % 58.2 41 - 85 % 12/26/2017 1:59 PM EDT [facility] LYMPH % 29.0 15 - 48 % 12/26/2017 1:59 PM EDT [facility] MONO % 10.4 0 - 12 % 12/26/2017 1:59 PM EDT [facility] EOS % 2.3 0 - 5 % 12/26/2017 1:59 PM EDT [facility] BASO % 0.1 0 - 2 % 12/26/2017 1:59 PM EDT [facility] 12/26/2017 1:43 PM EDT 12/26/2017 1:44 PM EDT Wiley Thompson MD LAB Performing Organization Address City/State/[facility] Co de Phone Number [facility] [address] [place] [address] documented in this encounter Visit Diagnoses Diagnosis Preoperative examination Preoperative examination, unspecified Screening for deficiency anemia Screening for other and unspecified deficiency anemia documented in this encounter Care Teams Supervisor Asphalt Paving Relationship Specialty Start Date End Date Wiley Thompson MD PCP - General Internal Medicine 06/04/14 01/20/22 Kathy Christopher MD [address] [place] [address], [place] [address] PCP - General Internal Medicine 01/21/22 Kameron Zuñiga MD Sales Account Representative Cardiovascular Disease 08/04/21 Katya Lopez NP Cardiology 08/04/21 01/30/24 Be Pacheco NP [address] [place] [address] Nurse Practitioner Cardiology 10/17/22 01/30/24 Maycol Infante MD [address] [place] [address] Specialist Pulmonology 10/19/22 Sebastian Martinez MD [address] [place] [address] Specialist Ophthalmology 03/21/23 Eve Juan MD [address] [place] [address] [place] [address] Specialist UROGYNECOLOGY 03/21/23 Elisa Romero NP [address] [place] [address] [place] [address] Cardiology 01/31/24 Marcus Murcia DO [address] [place] [address] [place] [address] Specialist Physiatry 03/26/24 documented as of this encounter
--- OUTSIDE RECORDS SUMMARY | 2024-09-17 16:07 | XMS_ITS | Encounter Summary ---
Author Organization [facility] Address [address] [place] [address] Care Team Providers Care Visual Presentation Manager Name Role Phone Wiley Thompson MD Primary Care Provider Kameron Cornejo MD Unavailable Katya Lopez NP Unavailable Unavailab Kathy Haley MD Primary Care Prov ider Be Pacheco NP Unavailable [phone] Maycol Infante MD Unavailable Unavailable Sebastian Martinez MD Unavailable UnavailEve Blackmon MD Unavailable Elisa Romero NP Unavailable [phone] Marcus Murcia DO Unavailable Unavailable Encounter Details Date Type Department Care Team Description 10/14/2021 Telephone Cardio [facility]CA Diag Testing [address] [place], [place] [phone] Kameron Zuñiga MD [address] [place] [phone] Social History Tobacco Use Types Packs/Day Years Used Date Smoking Tobacco: Former Cigarettes 2 31 0 1958 - 07/17/1989 Smokeless Tobacco: Former Alcohol Use Standard Drinks/Week Comments No 0 (1 standard drink = 0.6 oz pur e alcohol) Sex Assigned at Date Recorded Not on file Job Start Date Occupation Industry Not on file Not on file Not on file COVID-19 Exposure Response Date Recorded In the last 10 days, have yo u been in contact with someone who was confirmed or suspected to have Coronavirus/COVID-19? No / Unsure 09/29/2021 10:38 AM EDT documented as of this encounter Miscellaneous Notes * Telephone Encounter - Kameron Zuñiga MD - 10/15/2021 9:30 AM EDT I do think she can wait until January. If she is having any problems she should call us. * Telephone Encounter - Ana Valenzuela C.M.A. - 10/14/2021 1:01 PM EDT Pt has an appt in January with Katya, She states you wanted to order a Nuclear test but she alreadyhad one done. It is now scanned in to the chart in media 09/17/21. She wants to know based on that report did you want to see her sooner or is it ok that she waits until January to see Katya. There are other records from [facility] as well. * Telephone Encounter - Ana Valenzuela C.M.A. - 10/14/2021 12:55 PM EDT Disregard the message below, I see records were scanned in already. Thanks! * Telephone Encounter - Ana Valenzuela C.M.A. - 10/14/2021 11:24 AM EDT Dennys Shi, Could you please follow up with [facility] for this patients records? I do see her signed release scanned in the chart. She has called me 3 times and I dont see anything new in the charts from them. Thank you! documented in this encounter Plan of Treatment Not on file documented as of this encounter Visit Diagnoses Not on filedocumented in this encounter Care Teams Visual Presentation Manager Relationship Specialty Start Date End Date Wiley Thompson MD PCP - General Internal Medicine 06/04/14 01/20/22 Kathy Christopher MD [address] [place] [address] PCP - General Internal Medicine 01/21/22 Kameron Zuñiga MD Medical Apparatus Model Maker Cardiovascular Disease 08/04/21 Katya Lopez NP Cardiology 08/04/21 01/30/24 Be Pacheco NP [address] [place] [address] Nurse Practitioner Cardiology 10/17/22 01/30/24 Maycol Infante MD [address] [place] [address] Specialist Pulmonology 10/19/22 Sebastian Martinez MD [address] [place] [address] Specialist Ophthalmology 03/21/23 Eve Juan MD [address] [place] [address] [place] [address] Specialist UROGYNECOLOGY 03/21/23 Elisa Romreo NP [address] [place] [address] [place] [address] Cardiology 01/31/24 Marcus Murcia DO [address] [place] [address] [place] [address] Specialist Physiatry 03/26/24 documented as of this encounter
--- OUTSIDE RECORDS SUMMARY | 2024-09-17 16:07 | XMS_ITS | Clinical Summary ---
Author Organization [facility] Address [address] [place] [address] Phone Care Team Providers Care Tube Former Operator Name Role Phone Kathy Perez MD [...] sleep apnea 11/21/2018 Overview (04/23/2024): [facility] Home Sleep Apnea Test: Date 11/18/2018; Wt 192#; BMI 33; HAYLEY 16, AI 1; HI 14; Unclassified apneas 0; Obstructive apneas 10; Central apneas 0; Mixed apneas 0; hypopneas 126; average oxygen saturation 88% (lowest 73% with saturations <88% for 5% or more of study) [facility] Polysomnogram treatment study. Date [...] x1 06/2015 Coronary artery disease invo lving [place] coronary artery of [place] heart without angina pectoris 01/21/2015 Overview (04/23/2024): [...] Gastroparesis 07/17/2012 Overview (04/23/2024): Dr. Stephenson at [address] [place] [address] GERD (gastroesophageal reflux disease) 3 Insomnia 07/17/2012 [...] Encounters Date Type Department Care Team Description 09/12/2024 11:30 AM EDT Ancillary Procedure [facility] [address] [place] [address] Coronary artery disease involving [place] coronary artery of [place] heart without angina pectoris; Peripheral edema; SOTELO (dyspnea on exertion); Chronic heart failure with preserved ejection fraction (CMS/HCC) 09/06/2024 Telephone Adult [address] [address] Kathy Nino MD Referral 08/27/2024 11:33 AM EDT Anesthesia Event [facility] [address] [place] [address] Negro Velasco MD 08/27/2024 10:04 AM EDT - 08/27/2024 11:59 PM EDT Hospital Encounter [facility] [address] [place] [address] Marcus Murcia DO Chang, Daniel J, MD Radiculopathy, cervical region Discharge Disposition: Home or Self Care 08/27/2024 9:08 AM EDT - 08/27/2024 11:59 PM EDT Hospital Encounter [facility] Xray [address] [place] [phone] Pain Discharge Disposition: Home or Self Care 08/13/2024 Telephone [facility] [address] [facility] [address] [place] [phone] Kameron Zuñiga MD testing 07/30/2024 1:15 PM EST Office Visit Adult Medicine [address] [address] Kathy Nino MD 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) (Primary Dx); Primary hypertension; Mixed hyperlipidemia; Stage 3a chronic kidney disease (CMS/HCC); Chronic obstructive pulmonary disease, unspecified COPD type (CMS/HCC); Congestive heart failure, unspecified HF chronicity, unspecified heart failure type (CMS/HCC); Urinary incontinence, unspecified type 07/30/2024 8:20 AM EST Anesthesia Event [facility] [address] [place] [address] Negro Velasco MD Fox, Jillian, [place] 07/30/2024 8:12 AM EST - 07/30/2024 11:59 PM EST Hospital Encounter [facility] Management [address] [place] [address] Azimov, Marcus, Negro Robledo MD Barnes, Tyanna R, CRNA Radiculopathy, cervical region Discharge Disposition: Home or Self Care 07/24/2024 9:30 AM EST Ancillary Procedure [facility] [address] [place] [address] Coronary artery disease involving [place] coronary artery of [place] heart without angina pectoris; SOTELO (dyspnea on exertion) 07/22/2024 2:45 PM EST - 07/22/2024 11:59 PM EST Hospital Encounter [address] [address] Pneumonia of both lower lobes due to infectious organism Discharge Disposition: Home or Self Care 07/18/2024 Telephone Adult Medicine [address] [phone] Amy Carlton LPN Fitting for DME (Faxed form from [employer]); Appointment 06/27/2024 10:30 AM EST Office Visit Adult Medicine [address] [phone] Pau Shultz PA Pneumonia of both lower lobes due to infectious organism (Primary Dx); Nausea and vomiting, unspecified vomiting type; Diarrhea, unspecified type; Type 2 diabetes mellitus with stage 3a chronic kidney disease, without long-term current use of insulin ([facility]) 06/24/2024 Telephone Adult Medicine [address] [phone] Kathy Nino MD [facility] Follow-up from Last 3 Months Immunizations Name Administration Dates Next Due Influenza trivalent, 0.5mL ( Fluad) 65yo and older 03/26/2024,02/28/2023,03/28/2022,03/22,03/13/2019,03/02/2018,03/01/2017 ,03/30/2016 Influenza, Unspecified 03/10/2022,2020,02/24/2020,04/06,05/06/2014,03/05/2013 [employer] SARS-CoV-2 COVID -19, vector-nr, [id number], preservative free [...] PROCEDURE:TUBAL LIGATION OTHER SURGICAL HISTORY 2007 PROCEDURE: AL CORRECTION HAMMERTOE; COMMENT: FOOT SURGERY PROCEDURE: HISTORICAL FOOT SURGERY; COMMENT: 18 y/o bunionectomy UPPER GASTROINTESTINAL ENDOSCOPY 03/22/2012 PROCEDURE: AL UPPER GI ENDOSCOPY PERFORMED; COMMENT: Normal study UPPER GASTROINTESTINAL ENDOSCOPY 11/27/2015 PROCEDURE: AL UPPER GI ENDOSCOPY PERFORMED; COMMENT: Gastritis and polyp. Normal Esophagus and duodenum. UPPER GASTROINTESTINAL ENDOSCOPY 2012 PROCEDURE: AL UPPER GI ENDOSCOPY PERFORMED; COMMENT: FOR GERD BLADDER SUSPENSION 05/29/2018 PROCEDURE: HISTORICAL BLADDER SUSPENSION CYSTOSCOPY 03/18/2019 PROCEDURE: HISTORICAL CYSTOSCOPY; COMMENT: Normal COLONOSCOPY 06/2005 PROCEDURE: HISTORICAL COLONOSCOPY; COMMENT: tubular adenoma COLONOSCOPY 06/2010 PROCEDURE: HISTORICAL COLONOSCOPY; COMMENT: negative COLONOSCOPY 12/16/2015 PROCEDURE: HISTORICAL COLONOSCOPY; COMMENT: tubular adenoma CARDIAC CATHETERIZATION 09/26/2014 PROCEDURE: HISTORICAL CARDIAC CATH; COMMENT: RCA stent Dr David REYNAGA UPPER GASTROINTESTINAL ENDOSCOPY 08/18/2004 PROCEDURE: AL UPPER GI ENDOSCOPY PERFORMED FOOT SURGERY 12/2013 PROCEDURE: HISTORICAL FOOT SURGERY; COMMENT: for second toe arthroplasty SHOULDER SURGERY Left PROCEDURE: HISTORICAL SHOULDER SURGERY; COMMENT: Arthroscopy with Dr. Begr KNEE SURGERY Left PROCEDURE: HISTORICAL KNEE SURGERY; COMMENT: Arthroscopy Medical History Medical History Date Comments Hypertension DX:Hypertension COPD (chronic obstructive pu lmonary disease) (CMS/HCC) DX:COPD (chronic obstructive pulmonary disease) (HCC) Heart failure DX:Heart failure (HCC) Diabetes mellitus (CMS/HCC) DX:D iabetes mellitus ([facility]) Asthma 07/17/2012 DX:Asthma HTN (hypertension) 07/17/2012 DX:HTN [...] mellitus type 2 wit h neurological manifestations ([facility]) 08/01/2015 DX:Diabetes abby itus type 2 with neurological manifestations ([facility]); COMMENT: A1C 6.5 09/28 transfer records Gastric [...] Sign Reading Time Taken Comments Blood Pressure 144/75 09/12/2024 1:01 PM EDT Pulse 105 08/27/2024 12:22 PM EDT Temperature 36.7 ??C (98.1 ??F) 08/27/2024 11:58 AM E DT Respiratory Rate 16 08/27/2024 12:22 PM EDT Oxygen Saturation 97% 08/27/2024 12:22 PM EDT Inhaled Oxygen Concentration - - Weight 83 kg (183 lb) 09/12/2024 1:01 PM EDT Height 162.6 cm (5' 4 ) 09/12/2024 1:01 PM EDT Body Mass Index 31.41 09/12/2024 1:01 PM EDT Plan of Treatment Upcoming Encounters Date Type Department Care Team (Late st Contact Info) Description 10/03/2024 9:50 AM EDT Office Visit [facility] [address] [phone] Kameron Zuñiga MD [address] [address] 01/28/2025 1:15 PM EDT Office Visit Adult Medicine [address] [address] Kathy Perez MD [address] [place] [address] Health Maintenance Due Date Last Done Comments [...] Name Priority Date/Time Associated Diagnosis Comments EXTERNAL CLINICAL LAB Routine 09/09/2024 1:14 PM EDT EXTERNAL CLINICAL LAB Routine 09/09/2024 9:[address] REPORT Routine 08/30/2024 12 :31 PM EDT POCT GLUCOSE BLOOD Routine 08/27/2024 9: 33 AM EDT LIPID PANEL WITH REFLEX TO DIRECT LDL Routine 08/26/2024 11:03 AM EDT Coronary artery disease involving [place] coronary artery of [place] heart without angina pectoris Hyperlipidemia, unspecified hyperlipidemia [...] 11:50 AM EST Coronary artery disease involving [place] coronary artery of [place] heart without angina pectoris SOTELO (dyspnea on exertion) XR CHEST 2 VIEWS Routine 07/22/2024 2:52 PM EST Pneumonia of both lower lobes due to infectious organism DEPRESSION SCREENING Routine 03/26/2024 FALLS RISK ASSESSMENT Routine 03/26/2024 HM URINE ALBUMIN CREATININE RATIO Routine 03/26/2024 DIABETES FOOT EXAM Routine 12/04/2023 DIABETES EYE EXAM Routine 11/28/2023 HEPATITIS C SCREENING Routine 01/18/2016 from Last 3 Months or Most Recently Relevant to Health Maintenance Results * External clinical lab (09/09/2024 1:14 PM EDT) Only the most recent of2 resultswithin the time period is included. Historical Provider LAB BLOOD ORDERABLES Zaria l Result * External CT Report (08/30/2024 12:31 PM EDT) Anatomical Region Laterality Modality Computed Tomogra phy Historical Provider IMG CT PROCEDURES Final R esult * (ABNORMAL) POCT Glucose, blood (08/27/2024 9:33 AM EDT) Only the most recent of2 resultswithin the time period is included. [facility] Glucose POCT 101(H) 70 - 100 mg/dL 08/27/2024 9:[address] [facility] Blood Capillary blood specimen / Unknown 08/27/2024 9:33 AM EDT 08/27/2024 9:35 AM EDT [facility] Provider Poct LAB POINT OF CARE TEST DOCKED DEVICE UNSOLICITED RESULTS Final Result [facility] [address] [place] [address], [place] [phone] * Lipid panel with reflex to direct LDL (08/26/2024 11:03 AM EDT) [facility] Cholesterol 141 0 - 200 mg/dL LAB CHEMISTRY METHOD 08/26/2024 2:[address] [facility] Triglycerides 117 0 - 150 mg/dL LAB CHEMISTRY METHOD 08/26/2024 2:[address] [facility] HDL 55 >=40 mg/dL LAB CHEMISTRY METHOD 08/26/2024 2:[address] [facility] LDL Calculated 63 0 - 100 mg/dL LAB CHEMISTRY METHOD 08/26/2024 2:[address] [facility] VLDL Cholesterol Gus 23.4 mg/dL LAB CHEMISTRY METHOD 08/26/2024 2:[address] [facility] Non HDL Chol. (LDL+VLDL) 86 <145 mg/dL LAB CHEMISTRY METHOD 08/26/2024 2:[address] [facility] Chol/HDL Ratio 2.6 0.0 - 4.4 LAB CHEMISTRY METHOD 08/26/2024 2:[address] [facility] Blood Venous blood specimen / Unknown Venipuncture / Unknown 08/26/2024 11:03 AM EDT 08/26/2024 11:03 AM EDT Elisa Romero NP LAB BLOOD ORDERABLES Final Result Performing Organization Address City/[facility]/ZIP Co de Phone Number [facility] [address] [place] [address], * Magnesium (08/26/2024 11:03 AM EDT) Magnesium 2.0 1.9 - 2.6 mg/dL LAB CHEMISTRY METHOD 08/26/2024 2:[address] [facility] Blood Venous blood specimen / Unknown Venipuncture / Unknown 08/26/2024 11:03 AM EDT 08/26/2024 11:03 AM EDT Elisa Romero NP LAB BLOOD ORDERABLES Final Result [facility] [address] [place] [address], [place] [phone] * Hemoglobin A1c (08/26/2024 11:03 AM EDT) Hemoglobin A1C 6.4 <6.5 % LAB CHEMISTRY METHOD 08/26/2024 1:[address] [facility] Mean Bld Glu Estim. 137 mg/dL LAB CHEMISTRY METHOD 08/26/2024 1:[address] [facility] Blood Venous blood specimen / Unknown Venipuncture / Unknown 08/26/2024 11:03 AM EDT 08/26/2024 11:03 AM EDT us Kathy Perez MD LAB BLOOD ORDERABL ES Final Result [facility] [address] [place] [address], [place] [phone] * (ABNORMAL) Basic metabolic panel (08/26/2024 11:03 AM EDT) Sodium 141 133 - 145 mmol/L LAB CHEMISTRY METHOD 08/26/2024 2:12 PM [facility] Potassium 4.1 3.5 - 5.5 mmol/L LAB CHEMISTRY METHOD 08/26/2024 2:12 PM [facility] Chloride 104 96 - 110 mmol/L LAB CHEMISTRY METHOD 08/26/2024 2:12 PM [facility] CO2 26 21 - 32 mmol/L LAB CHEMISTRY METHOD 08/26/2024 2:12 PM [facility] Anion Gap 11 3 - 11 LAB CHEMISTRY METHOD 08/26/2024 2:12 PM [facility] Glucose 104(H) 70 - 100 mg/dL LAB CHEMISTRY METHOD 08/26/2024 2:12 PM [facility] BUN 18 5 - 25 mg/dL LAB CHEMISTRY METHOD 08/26/2024 2:12 PM [facility] Creatinine 1.32(H) 0.50 - 1.10 mg/dL LAB CHEMISTRY METHOD 08/26/2024 2:12 PM [facility] eGFR 41(L) >=60 mL/min/1. 73m2 LAB CHEMISTRY METHOD 08/26/2024 2:12 PM [facility] Comment:Calculation based on the??Chronic Kidney Disease Epidemiology Collaboration (CKD-EPI) equation refit??without adjustment for race. BUN/Creatinine Ratio 13.6 LAB CHEMISTRY METHOD 08/26/2024 2:[address] [facility] Calcium 9.5 8.5 - 10.5 mg/dL LAB CHEMISTRY METHOD 08/26/2024 2:[address] [facility] Blood Venous blood specimen / Unknown Venipuncture / Unknown 08/26/2024 11:03 AM EDT 08/26/2024 11:03 AM EDT Elisa Romero NP LAB BLOOD ORDERABLES Final Result [facility] [address] [place] [address], [place] [phone] * NM LEXISCAN STRESS TEST W/ MYOCARDIAL [...] Signed Date: 07/22/2024 17:44 ET Workstation ID: [id number] Transcribed By: Self Edit Transcribed Date: 07/22/2024 17:42 ET Narrative 07/22/2024 5:44 PM EST HISTORY: pneumonia Dx at [facility]. 4 week f.u TECHNIQUE: PA and lateral radiographs of the chest COMPARISON: Chest radiograph from 06/23/2023 FINDINGS: There is a normal cardiomediastinal silhouette. ??Atherosclerosis of the thoracic aorta. ??Increased airspace opacities within the right lower lung zone. ??Mild degenerative changes of the thoracic spine. Procedure Note Moo Coyle MD - 07/22/2024 HISTORY: pneumonia Dx at [facility]. 4 week f.u TECHNIQUE: PA and lateral [...] Signed Date: 07/22/2024 17:44 ET Workstation ID: [id number] Transcribed By: Self Edit Transcribed Date: 07/22/2024 17:42 ET Pau LOPEZ IMG XR PROCEDURES Final Result * Urine Albumin Creatinine Ratio (03/26/2024) Pathologist [facility] Urine Albumin Creatinine Ratio Abstracted Historical Provider HEALTH MAINTENANCE Final Result * Falls Risk Assessment (03/26/2024) Falls Risk Assessment Abstracted Historical Provider HEALTH MAINTENANCE Final Result * Depression Screening (03/26/2024) Pathologist [facility] Depression Screening Abstracted Historical Provider HEALTH MAINTENANCE Final Result * Diabetes Foot Exam (12/04/2023) [facility] Diabetes: Annual Foot Exam Abstracted Historical Provider HEALTH MAINTENANCE Final Result * Diabetes Eye Exam (11/28/2023) Pathologist [facility] Diabetes: Annual Retina Eye Exam Abstracted Comment:External Completion of test per patient (Patient reports normal results) Historical Provider HEALTH MAINTENANCE Final Result * Hepatitis C Screening (01/18/2016) Pathologist [facility] Hepatitis C Screening Abstracted Historical Provider HEALTH MAINTENANCE Final Result from Last 3 Months or Most Recently Relevant to Health Maintenance Insurance [facility] MEDICARE Member Subscriber Plan / Payer (Ef fective 2012-Present) Name:Shea Ramirez Relation to Subscriber:Self Name:Shea Ramirez Payer ID:[id number] Group ID:[id number] Type:Not on file Address: [place] [address] [address] [address] Care Teams Tube Former Operator Relationship Specialty Start Date End Date Kathy Perez MD [address] [place] [address] PCP - General Internal Medicine 07/22/24
--- OUTSIDE RECORDS SUMMARY | 2024-09-17 16:07 | XMS_ITS | Encounter Summary ---
Author Organization [facility] Address [address] [place] [address] Care Team Providers Care Junior Linux Administrator Name Role Phone Kameron Zuñiga MD Unavailable Katya Lopez NP Unavailable Unavailab Kathy Haley MD Primary Care Prov ider Be Pacheco NP Unavailable [phone] Maycol Infante MD Unavailable Unavailable Sebastian Martinez MD Unavailable UnavailEve Blackmon MD Unavailable Elisa Romero NP Unavailable [phone] Marcus Murcia DO Unavailable Unavailable Encounter Details Date Type Department Care Team Description 10/20/2023 Orders Only Medical Records [address] [place] [address] [facility] Social History Tobacco Use Types Packs/Day Years [...] on file documented as of this encounter Procedures Procedure Name Priority Date/Time Associated Diagnosis Comments OUTSIDE LAB Routine 10/04/2023 documented in this encounter Results * OUTSIDE LAB (10/04/2023) [facility] documented in this encounter Visit Diagnoses Not on filedocumented in this encounter Care Teams Junior Linux Administrator Relationship Specialty Start Date End Date Kathy Christopher MD [address] [place] [address] PCP - General Internal Medicine 01/21/22 Kameron Zuñiga MD Byproducts Pump Operator Cardiovascular Disease 08/04/21 Katya Lopez NP Cardiology 08/04/21 01/30/24 Be Pacheco NP [address] [place] [address] Nurse Practitioner Cardiology 10/17/22 01/30/24 Maycol Infante MD [address] [place] [address] Specialist Pulmonology 10/19/22 Sebastian Martinez MD [address] [place] [address] Specialist Ophthalmology 03/21/23 Eve Juan MD [address] [place] [address] [place] [address] Specialist UROGYNECOLOGY 03/21/23 Elisa Romero NP [address] [place] [address] [place] [address] Cardiology 01/31/24 Marcus Murcia DO [address] [place] [address] [place] [address] Specialist Physiatry 03/26/24 documented as of this encounter
--- OUTSIDE RECORDS SUMMARY | 2024-09-17 16:07 | XMS_ITS | Encounter Summary ---
Author Organization [facility] Address [address] [place] [address] Care Team Providers Care Summer Babysitter Name Role Phone Wiley Thompson MD Primary Care Provider Kameron Cornejo MD Unavailable Katya Lopez NP Unavailable Unavailab Kathy Haley MD Primary Care Prov ider Be Pacheco NP Unavailable Maycol Infante MD Unavailable Unavailable Sebastian Martinez MD Unavailable UnavailEve Blackmon MD Unavailable Elisa Romero NP Unavailable [phone] Marcus Murcia DO Unavailable Unavailable Encounter Details Date Type Department Care Team Description 02/28/2019 Earth Moving Technician Report Medical Records [address] [place] [address] Vivek Johnson Social History Tobacco Use Types Packs/Day Years [...] on filedocumented in this encounter Care Teams Summer Babysitter Relationship Specialty Start Date End Date Wiley Thompson MD PCP - General Internal Medicine 06/04/14 01/20/22 Kathy Christopher MD [address] [place] [address] PCP - General Internal Medicine 01/21/22 Kameron Zuñiga MD Automatic Head Sawyer Cardiovascular Disease 08/04/21 Katya Lopez NP Cardiology 08/04/21 01/30/24 Be Pacheco NP [address] [place] [address] Nurse Practitioner Cardiology 10/17/22 01/30/24 Maycol Infante MD [address] [place] [address] Specialist Pulmonology 10/19/22 Sebastian Martinez MD [address] [place] [address] Specialist Ophthalmology 03/21/23 Eve Juan MD [address] [place] [address] [place] [address] Specialist UROGYNECOLOGY 03/21/23 Elisa Romero NP [address] [place] [address] [place] [address] Cardiology 01/31/24 Marcus Murcia DO [address] [place] [address] [place] [address] Specialist Physiatry 03/26/24 documented as of this encounter
--- OUTSIDE RECORDS SUMMARY | 2024-09-17 16:07 | XMS_ITS | Encounter Summary ---
Author Organization [facility] Address [address] [place] [address] Care Team Providers Care Public Safety Telecommunicator Name Role Phone Wiley Thompson MD Primary Care Provider Kameron Cornejo MD Unavailable Katya Lopez NP Unavailable Unavailab Kathy Haley MD Primary Care Prov ider Be Pacheco NP Unavailable [phone] Maycol Infante MD Unavailable Unavailable Sebastian Martinez MD Unavailable UnavailEve Blackmon MD Unavailable Elisa Romero NP Unavailable [phone] Marcus Murcia DO Unavailable Unavailable Encounter Details Date Type Department Care Team Description 06/20/2019 Orders Only Medical Records [address] [place] [address] Wiley Thompson MD Social History Tobacco Use Types Packs/Day Years [...] Name Priority Date/Time Associated Diagnosis Comments OUTSIDE MAMMO Routine 06/18/2019 documented in this encounter Results * OUTSIDE MAMMO (06/18/2019) Wiley Thompson MD RADIOLOGY documented in this encounter Visit Diagnoses Not on filedocumented in this encounter Care Teams Public Safety Telecommunicator Relationship Specialty Start Date End Date Wiley Thompson MD PCP - General Internal Medicine 06/04/14 01/20/22 Kathy Christopher MD [address] [place] [address] PCP - General Internal Medicine 01/21/22 Kameron Zuñiga MD Hide Splitter Cardiovascular Disease 08/04/21 Katya Lopez NP Cardiology 08/04/21 01/30/24 Be Pacheco NP [address] [place] [address] Nurse Practitioner Cardiology 10/17/22 01/30/24 Maycol Infante MD [address] [place] [address] Specialist Pulmonology 10/19/22 Sebastian Martinez MD [address] [place] [address] Specialist Ophthalmology 03/21/23 Eve Juan MD [address] [place] [address] [place] [address] Specialist UROGYNECOLOGY 03/21/23 Elisa Romero NP [address] [place] [address] [place] [address] Cardiology 01/31/24 Marcus Murcia DO [address] [place] [address] [place] [address] Specialist Physiatry 03/26/24 documented as of this encounter
--- OUTSIDE RECORDS SUMMARY | 2024-09-17 16:07 | XMS_ITS | Encounter Summary ---
Author Organization [facility] Address [address] [place] [address] Care Team Providers Care Global Program Manager Name Role Phone Kameron Zuñiga MD Unavailable Katya Lopez NP Unavailable Unavailab Kathy Haley MD Primary Care Prov ider Be Pacheco NP Unavailable [phone] Maycol Infante MD Unavailable Unavailable Sebastian Martinez MD Unavailable UnavailEve Blackmon MD Unavailable Elisa Romero NP Unavailable [phone] Marcus Murcia DO Unavailable Unavailable Encounter Details Date Type Department Care Team Description 2023 Orders Only Medical Records [address] [place] [address] Negro Stockton PA-C Social History Tobacco Use Types Packs/Day Years [...] Name Priority Date/Time Associated Diagnosis Comments OUTSIDE PLAIN FILM Routine 10/02/2023 documented in this encounter Results * OUTSIDE PLAIN FILM (10/02/2023) Negro Stockton PA-C RADIOLOGY documented in this encounter Visit Diagnoses Not on filedocumented in this encounter Care Teams Global Program Manager Relationship Specialty Start Date End Date Kathy Christopher MD [address] [place] [address] PCP - General Internal Medicine 01/21/22 Kameron Zuñiga MD Development Officer Cardiovascular Disease 08/04/21 Katya Lopez NP Cardiology 08/04/21 01/30/24 Be Pacheco NP [address] [place] [address] Nurse Practitioner Cardiology 10/17/22 01/30/24 Maycol Infante MD [address] [place] [address] Specialist Pulmonology 10/19/22 Sebastian Martinez MD [address] [place] [address] Specialist Ophthalmology 03/21/23 Eve Juan MD [address] [place] [address] [place] [address] Specialist UROGYNECOLOGY 03/21/23 Elisa Romero NP [address] [place] [address] [place] [address] Cardiology 01/31/24 Marcus Murcia DO [address] [place] [address] [place] [address] Specialist Physiatry 03/26/24 documented as of this encounter
--- OUTSIDE RECORDS SUMMARY | 2024-09-17 16:07 | XMS_ITS | Clinical Summary ---
Author Organization [facility] Address [address] [place] [address] Care Team Providers Care Skein Spooler Name Role Phone Pito Thompson MD Primary Care Provider [phone] Allergies No known active allergies Medications Medication Sig Dispensed Refills Start Date End Date Status aspirin enteric coated (ECOTRIN LOW STRENGTH) 81 MG EC tabletIndications:Cor onary artery disease involving mary's igloo heart, unspecified vessel or lesion type, unspecified [...] Inactivated Comments 07/24/2021 9:24 PM Care Teams Skein Spooler Relationship Specialty Start Date End Date Pito Thompson MD [address] [place] [address] PCP - General 07/25/21
--- OUTSIDE RECORDS SUMMARY | 2024-09-17 16:07 | XMS_ITS | Encounter Summary ---
Author Organization [facility] Address [address] [place] [address] Care Team Providers Care Carbon Plant Grinder Name Role Phone Wiley Thompson MD Primary Care Provider Kameron Cornejo MD Unavailable Katya Lopez NP Unavailable Unavailab Kathy Haley MD Primary Care Prov ider Be Pacheco NP Unavailable [phone] Maycol Infante MD Unavailable Unavailable Sebastian Martinez MD Unavailable UnavailEve Blackmon MD Unavailable Elisa Romero NP Unavailable [phone] Marcus Murcia DO Unavailable Unavailable Encounter Details Date Type Department Care Team Description 09/17/2021 SCAN Medical Records [address] [place] [address] Abstract, Provider Social History Tobacco Use Types Packs/Day Years [...] Exposure Response Date Recorded In the last month, have you been in contact with someone who was confirmed or suspected to have Coronavirus / COVID-19? Unable to assess 09/01/2021 2:50 PM EDT documented as of this encounter Plan of Treatment Not on file documented as of this encounter Visit Diagnoses Not on filedocumented in this encounter Care Teams Carbon Plant Grinder Relationship Specialty Start Date End Date Wiley Thompson MD PCP - General Internal Medicine 06/04/14 01/20/22 Kathy Christopher MD [address] [place] [address] PCP - General Internal Medicine 01/21/22 Kameron Zuñiga MD Paving Crew Foreman Cardiovascular Disease 08/04/21 Katya Lopez NP Cardiology 08/04/21 01/30/24 Be Pacheco NP [address] [place] [address] 09028 Nurse Practitioner Cardiology 10/17/22 01/30/24 Maycol Infante MD [address] [place] [address] 66736 Specialist Pulmonology 10/19/22 Sebastian Martinez MD [address] [place] [address] 51586 Specialist Ophthalmology 03/21/23 Eve Juan MD [address] [place] [address] [place] [address] Specialist UROGYNECOLOGY 03/21/23 Elisa Romero NP [address] [place] [address] [place] [address] Cardiology 01/31/24 Marcus Murcia DO [address] [place] [address] [place] [address] Specialist Physiatry 03/26/24 documented as of this encounter
--- OUTSIDE RECORDS SUMMARY | 2024-09-17 16:07 | XMS_ITS | Encounter Summary ---
Author Organization [facility] Address [address] [place] [address] Care Team Providers Care Shift Supervisor Melting Name Role Phone Wiley Thompson MD Primary Care Provider Kameron Cornejo MD Unavailable Katya Lopez NP Unavailable Unavailab Kathy Haley MD Primary Care Prov ider Be Pacheco NP Unavailable [phone] Maycol Infante MD Unavailable Unavailable Sebastian Martinez MD Unavailable UnavailEve Blackmon MD Unavailable Elisa Romero NP Unavailable [phone] Marcus Murcia DO Unavailable Unavailable Reason for Visit * Reason Onset Date Comments Testing 09/13/2019 DXA bone density study 1+ sits axial skel Encounter Details Date Type Department Care Team Description 09/13/2019 Telephone Adult Medicine [facility] [address] [place] [address] [phone] Pau Shultz PA [address] [place], [place] [phone] Testing (DXA bone density study 1+ sits axial skel) Social History Tobacco Use Types Packs/Day Years [...] on file documented as of this encounter Miscellaneous Notes * Telephone Encounter - Inocencio North M.A. - 09/13/2019 3:18 PM EDT Letter mailed. * Telephone Encounter - JESSICA Rebolledo - 09/13/2019 2:45 PM EDT Yes I would still like this done. * Telephone Encounter - Inocencio North M.A. - 09/13/2019 2:18 PM EDT DXA bone density study 1+ sits axial skel was ordered 03/13/19, do you want to complete or cancel the order? documented in this encounter Plan of Treatment Not on file documented as of this encounter Visit Diagnoses Not on filedocumented in this encounter Care Teams Shift Supervisor Melting Relationship Specialty Start Date End Date Wiley Thompson MD PCP - General Internal Medicine 06/04/14 01/20/22 Kathy Christopher MD [address] [place] [address] 278[address] PCP - General Internal Medicine 01/21/22 Kameron Zuñiga MD Import Export Manager Cardiovascular Disease 08/04/21 Katya Lopez NP Cardiology 08/04/21 01/30/24 Be Pacheco NP [address] [place] [address] 01489 Nurse Practitioner Cardiology 10/17/22 01/30/24 Maycol Infante MD [address] [place] [address] 16508 Specialist Pulmonology 10/19/22 Sebastian Martinez MD [address] [place] [address] Specialist Ophthalmology 03/21/23 Eve Juan MD 4 [facility] [place] [address] Specialist UROGYNECOLOGY 03/21/23 Elisa Romero NP 4 [facility] [place] [address] Cardiology 01/31/24 Marcus Murcia DO [address] [place] [address] [place] [address] Specialist Physiatry 03/26/24 documented as of this encounter
--- OUTSIDE RECORDS SUMMARY | 2024-09-17 16:07 | XMS_ITS | Encounter Summary ---
Author Organization [facility] Address [address] [place] [address] Care Team Providers Care Vegetable Loader Name Role Phone Wiley Thompson MD Primary Care Provider Kameron Cornejo MD Unavailable Katya Lopez FARM HELPER Unavailable Unavailab Kathy Christopher MD Primary Care Prov ider Be Pacheco NP Unavailable [phone] Maycol Infante MD Unavailable Unavailable Sebastian Martinez MD Unavailable UnavailEve Blackmon MD Unavailable Elisa Romero NP Unavailable [phone] Marcus Murcia DO Unavailable Unavailable Encounter Details Date Type Department Care Team Description 05/03/2019 Project Financial Analyst Report Medical Records [address] [place] [address] Maycol Infante MD Social History Tobacco Use Types Packs/Day [...] on filedocumented in this encounter Care Teams Vegetable Loader Relationship Specialty Start Date End Date Wiley Thompson MD PCP - General Internal Medicine 06/04/14 01/20/22 Kathy Christopher MD [address] [place] [address] 17039 PCP - General Internal Medicine 01/21/22 Kameron Zuñiga MD Label Designer Cardiovascular Disease 08/04/21 Katya Lopez, IRMA Cardiology 08/04/21 01/30/24 Be Pacheco NP [address] [place] [address] 25859 Nurse Practitioner Cardiology 10/17/22 01/30/24 Maycol Infante MD [address] [place] [address] 91532 Specialist Pulmonology 10/19/22 Sebastian Martinez MD [address] [place] [address] 08963 Specialist Ophthalmology 03/21/23 Eve Juan MD [address] [place] [address] [place] [address] Specialist UROGYNECOLOGY 03/21/23 Elisa Romero NP [address] [place] [address] [place] [address] Cardiology 01/31/24 Marcus Murcia DO [address] [place] [address] [place] [address] Specialist Physiatry 03/26/24 documented as of this encounter
--- OUTSIDE RECORDS SUMMARY | 2024-09-17 16:07 | XMS_ITS | Encounter Summary ---
Author Organization [facility] Address [address] [place] [address] Care Team Providers Care Boiler Testing Technician Name Role Phone Wiley Thompson MD Primary Care Provider Kameron Cornejo MD Unavailable Katya Lopez NP Unavailable Unavailab Kathy Haley MD Primary Care Prov ider Be Pacheco NP Unavailable [phone] Maycol Infante MD Unavailable Unavailable Sebastian Martinez MD Unavailable UnavailEve Blackmon MD Unavailable Elisa Romero NP Unavailable [phone] Marcus Murcia DO Unavailable Unavailable Encounter Details Date Type Department Care Team Description 09/28/2021 SCAN Medical Records [address] [place] [address] Abstract, Provider Social History Tobacco Use Types [...] AM EDT documented as of this encounter Plan of Treatment Not on file documented as of this encounter Visit Diagnoses Not on filedocumented in this encounter Care Teams Boiler Testing Technician Relationship Specialty Start Date End Date Wiley Thompson MD PCP - General Internal Medicine 06/04/14 01/20/22 Kathy Christopher MD [address] [place] [address] PCP - General Internal Medicine 01/21/22 Kameron Zuñiga MD Movie Shot Cameraman Cardiovascular Disease 08/04/21 Katya Lopez NP Cardiology 08/04/21 01/30/24 Be Pacheco NP [address] [place] [address] 49976 Nurse Practitioner Cardiology 10/17/22 01/30/24 Maycol Infante MD [address] [place] [address] 23398 Specialist Pulmonology 10/19/22 Sebastian Martinez MD [address] [place] [address] 01722 Specialist Ophthalmology 03/21/23 Eve Juan MD [address] [place] [address] [place] [address] Specialist UROGYNECOLOGY 03/21/23 Elisa Romero NP [address] [place] [address] [place] [address] Cardiology 01/31/24 Marcus Murcia DO [address] [place] [address] [place] [address] Specialist Physiatry 03/26/24 documented as of this encounter
--- OUTSIDE RECORDS SUMMARY | 2024-09-17 16:07 | XMS_ITS | Encounter Summary ---
Author Organization [facility] Address [address] [place] [address] Care Team Providers Care Extrusion Manager Name Role Phone Wiley Thompson MD Primary Care Provider Kameron Cornejo MD Unavailable Katya Lopez NP Unavailable Unavailab Kathy Haley MD Primary Care Prov ider Be Pacheco NP Unavailable [phone] Maycol Infante MD Unavailable Unavailable Sebastian Martinez MD Unavailable UnavailEve Blackmon MD Unavailable Elisa Romero NP Unavailable [phone] Marcus Murcia DO Unavailable Unavailable Encounter Details Date Type Department Care Team Description 08/02/2021 Emt B Report Medical Records [address] [place] [address]65 Wiley Thompson MD Social History Tobacco Use [...] or suspected to have Coronavirus / COVID-19? No / Unsure 08/02/2021 1:03 PM EST documented as of this encounter Plan of Treatment Not on file documented as of this encounter Visit Diagnoses Not on filedocumented in this encounter Care Teams Extrusion Manager Relationship Specialty Start Date End Date Wiley Thompson MD PCP - General Internal Medicine 06/04/14 01/20/22 Kathy Christopher MD [address] [place] [address]373 PCP - General Internal Medicine 01/21/22 Kameron Zuñiga MD Application Support Intern Cardiovascular Disease 08/04/21 Katya Lopez NP Cardiology 08/04/21 01/30/24 Be Pacheco NP [address] [place] [address] 75164 Nurse Practitioner Cardiology 10/17/22 01/30/24 Maycol Infante MD [address] [place] [address] 36016 Specialist Pulmonology 10/19/22 Sebastian Martinez MD [address] [place] [address] 15511 Specialist Ophthalmology 03/21/23 Eve Juan MD [address] [place] [address] [place] [address] Specialist UROGYNECOLOGY 03/21/23 Elisa Romero NP [address] [place] [address] [place] [address] Cardiology 01/31/24 Marcus Murcia DO [address] [place] [address] [place] [address] Specialist Physiatry 03/26/24 documented as of this encounter
--- OUTSIDE RECORDS SUMMARY | 2024-09-17 16:07 | XMS_ITS | Encounter Summary ---
Author Organization [facility] Address [address] [place] [address] Care Team Providers Care Layboy Tender Name Role Phone Wiley Thompson MD Primary Care Provider Kameron Cornejo MD Unavailable Katya Lopez NP Unavailable Unavailab Kathy Haley MD Primary Care Prov ider Be Pacheco NP Unavailable [phone] Maycol Infante MD Unavailable Unavailable Sebastian Martinez MD Unavailable UnavailEve Blackmon MD Unavailable Elisa Romero NP Unavailable [phone] Marcus Murcia DO Unavailable Unavailable Reason for Visit * Reason Onset Date Comments pain, chest 02/15/2017 Encounter Details Date Type Department Care Team Description 02/15/2017 Telephone Adult Medicine [address] [address] Wiley Thompson MD pain, chest Social History Tobacco Use Types Packs/Day Years [...] encounter Miscellaneous Notes * Telephone Encounter - Leisa Arriaga R.N. - 02/15/2017 11:48 AM EDT Call taken at time of call- pt having chest tightness since yesterday- noted dypnea during conversation- states she uses oxygen at night without much relief x 2 days- sl lightheadedess Agreed to call 911 and go to ER for eval- will go to [place] [facility]. * Telephone Encounter - Marti Doris - 02/15/2017 11:41 AM EDT Symptoms patient is presenting: PT IS HAVING CHEST PAIN AND TIGHT CHEST If pain or injury related was it due to an accident at work or from a motor vehicle accident? NO If yes, gather 3rd alliance party insurance information Date of accident/Injury: How long has patient had these symptoms?: PCP: Wiley Thompson Payor: [facility] MCR / Plan: ViajaNetO $0 UB. [id number] / Product Type: HMO [id number] documented in this encounter Plan of Treatment Not on file documented as of this encounter Visit Diagnoses Not on filedocumented in this encounter Care Teams Layboy Tender Relationship Specialty Start Date End Date Wiley Thompson MD PCP - General Internal Medicine 06/04/14 01/20/22 Kathy Christopher MD [address] [place] [address] PCP - General Internal Medicine 01/21/22 Kameron Zuñiga MD Infant Lead Teacher Cardiovascular Disease 08/04/21 Katya Lopez NP Cardiology 08/04/21 01/30/24 Be Pacheco NP [address] [place] [address] [phone] Nurse Practitioner Cardiology 10/17/22 01/30/24 Maycol Infante MD [address] [place] [address] 86942 Specialist Pulmonology 10/19/22 Sebastian Martinez MD [address] [place] [address] 21728 Specialist Ophthalmology 03/21/23 Eve Juan MD [address] [place] [address] [place] [address] Specialist UROGYNECOLOGY 03/21/23 Elisa Romero NP [address] [place] [address] [place] [address] Cardiology 01/31/24 Marcus Murcia DO [address] [place] [address] [place] [address] Specialist Physiatry 03/26/24 documented as of this encounter
--- OUTSIDE RECORDS SUMMARY | 2024-09-17 16:07 | XMS_ITS | Encounter Summary ---
Author Organization [facility] Address [address] [place] [address] Care Team Providers Care Heel Sprayer First Name Role Phone Wiley Thompson MD Primary Care Provider Kameron Cornejo MD Unavailable Katya Lopez CLIENT ADVOCATE Unavailable Unavailab Kathy Christopher MD Primary Care Prov ider Be Pacheco NP Unavailable [phone] Maycol Infante MD Unavailable Unavailable Sebastian Martinez MD Unavailable UnavailEve Blackmon MD Unavailable Elisa Romero NP Unavailable [phone] Marcus Murcia DO Unavailable Unavailable Encounter Details Date Type Department Care Team Description 02/09/2017 PNO Controlled Substance Contract Medical Records [address] [place] [address] Abstract, Provider Social History Tobacco Use Types [...] on filedocumented in this encounter Care Teams Heel Sprayer First Relationship Specialty Start Date End Date Wiley Thompson MD PCP - General Internal Medicine 06/04/14 01/20/22 Kathy Christopher MD [address] [place] [address] 18021 PCP - General Internal Medicine 01/21/22 Kameron Zuñiga MD Phone Representative Cardiovascular Disease 08/04/21 Katya Lopez, IRMA Cardiology 08/04/21 01/30/24 Be Pacheco NP [address] [place] [address] 83632 Nurse Practitioner Cardiology 10/17/22 01/30/24 Maycol Infante MD [address] [place] [address] 13292 Specialist Pulmonology 10/19/22 Sebastian Martinez MD [address] [place] [address] 91897 Specialist Ophthalmology 03/21/23 Eve Juan MD [address] [place] [address] [place] [address] Specialist UROGYNECOLOGY 03/21/23 Elisa Romero NP [address] [place] [address] [place] [address] Cardiology 01/31/24 Marcus Murcia DO [address] [place] [address] [place] [address] Specialist Physiatry 03/26/24 documented as of this encounter
--- OUTSIDE RECORDS SUMMARY | 2024-09-17 16:07 | XMS_ITS | Encounter Summary ---
Author Organization [facility] Address [address] [place] [address] Care Team Providers Care Vision Impaired Teacher Name Role Phone Wiley Thompson MD Primary Care Provider Kameron Cornejo MD Unavailable Katya Lopez NP Unavailable Unavailab Kathy Haley MD Primary Care Prov ider Be Pacheco NP Unavailable [phone] Maycol Infante MD Unavailable Unavailable Sebastian Martinez MD Unavailable UnavailEve Blackmon MD Unavailable Elisa Romero NP Unavailable [phone] Marcus Murcia DO Unavailable Unavailable Encounter Details Date Type Department Care Team Description 08/19/2021 Copy Cutter Report Medical Records [address] [place] [address] Arun Hui MD Social History Tobacco Use Types Packs/Day [...] on filedocumented in this encounter Care Teams Vision Impaired Teacher Relationship Specialty Start Date End Date Wiley Thompson MD PCP - General Internal Medicine 06/04/14 01/20/22 Kathy Christopher MD [address] [place] [address] 35203 PCP - General Internal Medicine 01/21/22 Kameron Zuñiga MD Insurance Processing Clerk Cardiovascular Disease 08/04/21 Katya Lopez NP Cardiology 08/04/21 01/30/24 Be Pacheco NP [address] [place] [address] Nurse Practitioner Cardiology 10/17/22 01/30/24 Maycol Infante MD [address] [place] [address] 13481 Specialist Pulmonology 10/19/22 Sebastian Martinez MD [address] [place], [place] [phone] Specialist Ophthalmology 03/21/23 Eve Juan MD [address] [place] [address] [place] [address] Specialist UROGYNECOLOGY 03/21/23 Elisa Romero NP [address] [place] [address] [place] [address] Cardiology 01/31/24 Marcus Murcia DO [address] [place] [address] [place] [address] Specialist Physiatry 03/26/24 documented as of this encounter
--- OUTSIDE RECORDS SUMMARY | 2024-09-17 16:07 | XMS_ITS | Encounter Summary ---
Author Organization [facility] Address [address] [place] [address] Care Team Providers Care Primary Special Educator Name Role Phone Kameron Zuñiga MD Unavailable Katya Lopez NP Unavailable Unavailab le Kathy Christopher MD Primary Care Prov ider Be Pacheco NP Unavailable [phone] Maycol Infante MD Unavailable Unavailable Sebastian Martinez MD Unavailable UnavailEve Blackmon MD Unavailable Elisa Romero NP Unavailable [phone] Marcus Murcia DO Unavailable Unavailable Encounter Details Date Type Department Care Team Description 09/04/2023 Fireman Report Medical Records [address] [place] [address] Lalitha Diego, [facility]- Social History Tobacco Use Types Packs/Day Years [...] on filedocumented in this encounter Care Teams Primary Special Educator Relationship Specialty Start Date End Date Kathy Christopher MD [address] [place] [address] [phone] PCP - General Internal Medicine 01/21/22 Kameron Zuñiga MD Ground Support Equipment Assembler Cardiovascular Disease 08/04/21 Katya Lopez, IRMA Cardiology 08/04/21 01/30/24 Be Pacheco NP [address] [place] [address] 52546 Nurse Practitioner Cardiology 10/17/22 01/30/24 Maycol Infante MD [address] [place] [address] 30926 Specialist Pulmonology 10/19/22 Sebastian Martinez MD [address] [place] [address] Specialist Ophthalmology 03/21/23 Eve Juan MD [address] [place] [address] [place] [address] Specialist UROGYNECOLOGY 03/21/23 Elisa Romero NP [address] [place] [address] [place] [address] Cardiology 01/31/24 Marcus Murcia DO [address] [place] [address] [place] [address] Specialist Physiatry 03/26/24 documented as of this encounter
--- OUTSIDE RECORDS SUMMARY | 2024-09-17 16:07 | XMS_ITS | Encounter Summary ---
Author Organization [facility] Address [address] [place] [address] Care Team Providers Care Interventional Tech Name Role Phone Wiley Thompson MD Primary Care Provider Kameron Cornejo MD Unavailable Katya Lopez NP Unavailable Unavailab Kathy Christopher MD Primary Care Prov ider Be Pacheco NP Unavailable Maycol Infante MD Unavailable Unavailable Sebastian Martinez MD Unavailable UnavailEve Blackmon MD Unavailable Elisa Romero NP Unavailable [phone] Marcus Murcia DO Unavailable Unavailable Encounter Details Date Type Department Care Team Description 05/26/2015 FUNDER/MassPat Report Medical Records [address] [place] [address] Abstract, Provider Social History Tobacco Use Types Packs/Day Years Used Date Smoking Tobacco: Former Cigarettes Q uit: 07/17/1989 Smokeless Tobacco: Never Alcohol Use Standard [...] on filedocumented in this encounter Care Teams Interventional Tech Relationship Specialty Start Date End Date Wiley Thompson MD PCP - General Internal Medicine 06/04/14 01/20/22 Kathy Christopher MD [address] [place] [address] 28609 PCP - General Internal Medicine 01/21/22 Kameron Zuñiga MD Mechanical Project Engineer Cardiovascular Disease 08/04/21 Katya Lopez NP Cardiology 08/04/21 01/30/24 Be Pacheco NP [address] [place] [address] 75222 Nurse Practitioner Cardiology 10/17/22 01/30/24 Maycol Infante MD [address] [place] [address] 89365 Specialist Pulmonology 10/19/22 Sebastian Martinez MD [address] [place], [place] [phone] Specialist Ophthalmology 03/21/23 Eve Juan MD [address] [place] [address] [place] [address] Specialist UROGYNECOLOGY 03/21/23 Elisa Romero NP [address] [place] [address] [place] [address] Cardiology 01/31/24 Marcus Murcia DO [address] [place] [address] [place] [address] Specialist Physiatry 03/26/24 documented as of this encounter
--- OUTSIDE RECORDS SUMMARY | 2024-09-17 16:07 | XMS_ITS | Encounter Summary ---
Author Organization [facility] Address [address] [place] [address] Care Team Providers Care Librarian Special Collections Name Role Phone Kameron Zuñiga MD Unavailable Katya Lopez NP Unavailable Unavailab Kathy Haley MD Primary Care Prov ider Be Pacheco NP Unavailable [phone] Maycol Infante MD Unavailable Unavailable Sebastian Martinez MD Unavailable UnavailEve Blackmon MD Unavailable Elisa Romero NP Unavailable [phone] Marcus Murcia DO Unavailable Unavailable Encounter Details Date Type Department Care Team Description 08/17/2023 Orders Only Medical Records [address] [place] [address] Tyson Hunter Social History Tobacco Use Types Packs/Day Years [...] Date/Time Associated Diagnosis Comments OUTSIDE MAMMO Routine 07/19/2023 documented in this encounter Results * OUTSIDE MAMMO (07/19/2023) Tyson Hunter RADIOLOGY documented in this encounter Visit Diagnoses Not on filedocumented in this encounter Care Teams Librarian Special Collections Relationship Specialty Start Date End Date Kathy Christopher MD [address] [place] [address] PCP - General Internal Medicine 01/21/22 Kameron Zuñiga MD Supervisor Coal Handling Cardiovascular Disease 08/04/21 Katya Lopez NP Cardiology 08/04/21 01/30/24 Be Pacheco NP [address] [place] [address]99 Nurse Practitioner Cardiology 10/17/22 01/30/24 Maycol Infante MD [address] [place] [address] Specialist Pulmonology 10/19/22 Sebastian Martinez MD [address] [place] [address]38 Specialist Ophthalmology 03/21/23 Eve Juan MD [address] [place] [address] [place] [address] Specialist UROGYNECOLOGY 03/21/23 Elisa Romero NP [address] [place] [address] [place] [address] Cardiology 01/31/24 Marcus Murcia DO [address] [place] [address] [place] [address] Specialist Physiatry 03/26/24 documented as of this encounter
--- OUTSIDE RECORDS SUMMARY | 2024-09-17 16:07 | XMS_ITS | Encounter Summary ---
Author Organization [facility] Address [address] [place] [address] Care Team Providers Care Water Meter Installer Name Role Phone Wiley Thompson MD Primary Care Provider Kameron Cornejo MD Unavailable Katya Lopez NP Unavailable Unavailab Kathy Haley MD Primary Care Prov ider Be Pacheco NP Unavailable Maycol Infante MD Unavailable Unavailable Sebastian Martinez MD Unavailable UnavailEve Blackmon MD Unavailable Elisa Romero NP Unavailable [phone] Marcus Murcia DO Unavailable Unavailable Encounter Details Date Type Department Care Team Description 02/07/2019 Orders Only Allergy [place] [address] [place] [address] Oumou Lutz PA-C UTI symptoms (Primary Dx) Social History Tobacco Use Types Packs/Day Years [...] as of this encounter Visit Diagnoses Diagnosis UTI symptoms- Primary documented in this encounter Care Teams Water Meter Installer Relationship Specialty Start Date End Date Wiley Thompson MD PCP - General Internal Medicine 06/04/14 01/20/22 Kathy Christopher MD [address] [place] [address] PCP - General Internal Medicine 01/21/22 Kameron Zuñiga MD Test Carrier Cardiovascular Disease 08/04/21 Katya Lopez NP Cardiology 08/04/21 01/30/24 Be Pacheco NP [address] [place] [address] Nurse Practitioner Cardiology 10/17/22 01/30/24 Maycol Infante MD [address] [place] [address]99 Specialist Pulmonology 10/19/22 Sebastian Martinez MD [address] [place] [address] Specialist Ophthalmology 03/21/23 Eve Juan MD [address] [place] [address] [place] [address] Specialist UROGYNECOLOGY 03/21/23 Elisa Romero NP [address] [place] [address] [place] [address] Cardiology 01/31/24 Marcus Murcia DO [address] [place] [address] [place] [address] Specialist Physiatry 03/26/24 documented as of this encounter
--- OUTSIDE RECORDS SUMMARY | 2024-09-17 16:07 | XMS_ITS | Encounter Summary ---
Author Organization [facility] Address [address] [place] [address] Care Team Providers Care Windows Systems Engineer Name Role Phone Wiley Thompson MD Primary Care Provider Kameron Cornejo MD Unavailable Katya Lopez NP Unavailable Unavailab Kathy Haley MD Primary Care Prov ider Be Pacheco NP Unavailable [phone] Maycol Infante MD Unavailable Unavailable Sebastian Martinez MD Unavailable UnavailEve Blackmon MD Unavailable Elisa Romero NP Unavailable [phone] Marcus Murcia DO Unavailable Unavailable Encounter Details Date Type Department Care Team Description 05/05/2017 Utility Accounts Director Report Medical Records [address] [place] [address] Talia Mckay PA-C Social History Tobacco Use Types Packs/Day [...] on filedocumented in this encounter Care Teams Windows Systems Engineer Relationship Specialty Start Date End Date Wiley Thompson MD PCP - General Internal Medicine 06/04/14 01/20/22 Kathy Christopher MD [address] [place] [address] PCP - General Internal Medicine 01/21/22 Kameron Zuñiga MD Paper Conservator Cardiovascular Disease 08/04/21 Katya Lopez NP Cardiology 08/04/21 01/30/24 Be Pacheco NP [address] [place] [address]853 Nurse Practitioner Cardiology 10/17/22 01/30/24 Maycol Infante MD [address] [place] [address] 18631 Specialist Pulmonology 10/19/22 Sebastian Martinez MD [address] [place] [address] Specialist Ophthalmology 03/21/23 Eve Juan MD [address] [place] [address] [place] [address] Specialist UROGYNECOLOGY 03/21/23 Elisa Romero NP [address] [place] [address] [place] [address] Cardiology 01/31/24 Marcus Murcia DO [address] [place] [address] [place] [address] Specialist Physiatry 03/26/24 documented as of this encounter
--- OUTSIDE RECORDS SUMMARY | 2024-09-17 16:07 | XMS_ITS | Encounter Summary ---
Author Organization [facility] Address [address] [place] [address] Care Team Providers Care Bell Cleaner Name Role Phone Bri Santacruz MD Primary Care Provider Unavailable Wiley Thompson MD Primary Care Provider Kameron Cornejo MD Unavailable Katya Lopez NP Unavailable Unavailab Kathy Haley MD Primary Care Prov ider Be Pacheco NP Unavailable Maycol Infante MD Unavailable Unavailable Sebastian Martinez MD Unavailable UnavailEve Blackmon MD Unavailable Elisa Romero NP Unavailable [phone] Marcus Murcia DO Unavailable Unavailable Encounter Details Date Type Department Care Team Description 04/09/2013 Orders Only Adult Medicine [address] [address] Bri Santacruz MD UTI (lower urinary tract infection) (Primary Dx) Social History Tobacco Use Types [...] documented as of this encounter Results * URINE, CULTURE (06/17/2013 1:39 PM EST) Urine (Urine) 06/17/2013 1:3 9 PM EST 06/17/2013 1:39 PM EST Narrative SUDHIR GALEANO - 06/19/2013 10:58 AM EST 10,000 - 49,000 CFU/mL MIXED GROWTH SUGGESTIVE OF POSSIBLE CONTAMINATION DURING COLLECTION. SUGGEST APPROPRIATE RECOLLECTION IF CLINICALLY INDICATED. Bri Santacruz MD [facility] documented in this encounter Visit Diagnoses Diagnosis UTI (lower urinary tract infection)- Primary Urinary tract infection, site not specified UTI (lower urinary tract infection) Urinary tract infection, site not specified Diabetes type 2, controlled (HCC) Type II or unspecified type diabetes mellitus without mention of complication, not stated as uncontrolled documented in this encounter Care Teams Bell Cleaner Relationship Specialty Start Date End Date Bri Santacruz MD PCP - General Internal Medicine 04/23/12 06/03/14 Wiley Thompson MD PCP - General Internal Medicine 06/04/14 01/20/22 Kathy Christopher MD [address] [place] [address] PCP - General Internal Medicine 01/21/22 Kameron Zuñiga MD Fountain Dispenser Cardiovascular Disease 08/04/21 Katya Lopez NP Cardiology 08/04/21 01/30/24 Be Pacheco NP [address] [place] [address]22 Nurse Practitioner Cardiology 10/17/22 01/30/24 Maycol Infante MD [address] [place] [address] Specialist Pulmonology 10/19/22 Sebastian Martinez MD [address] [place] [address] Specialist Ophthalmology 03/21/23 Eve Juan MD [address] [place] [address] [place] [address] Specialist UROGYNECOLOGY 03/21/23 Elisa Romero NP [address] [facility] [place] [address] Cardiology 01/31/24 Marcus Murcia DO [address] [facility] [address] Specialist Physiatry 03/26/24 documented as of this encounter
--- OUTSIDE RECORDS SUMMARY | 2024-09-17 16:07 | XMS_ITS | Encounter Summary ---
Author Organization [facility] Address [address] [place] [address] Care Team Providers Care Dipper And Baker Name Role Phone Wiley Thompson MD Primary Care Provider Kameron Cornejo MD Unavailable Katya Lopez NP Unavailable Unavailab Kathy Haley MD Primary Care Prov ider Be Pacheco NP Unavailable [phone] Maycol Infante MD Unavailable Unavailable Sebastian Martinez MD Unavailable UnavailEve Blackmon MD Unavailable Elisa Romero NP Unavailable [phone] Marcus Murcia DO Unavailable Unavailable Encounter Details Date Type Department Care Team Description 08/19/2021 Premium Service Representative Report Medical Records [address] [place] [address] Tyson Hunter Social History Tobacco Use Types [...] on filedocumented in this encounter Care Teams Dipper And Baker Relationship Specialty Start Date End Date Wiley Thompson MD PCP - General Internal Medicine 06/04/14 01/20/22 Kathy Christopher MD [address] [place] [address] PCP - General Internal Medicine 01/21/22 Kameron Zuñiga MD Ict Security Specialist Cardiovascular Disease 08/04/21 Katya Lopez NP Cardiology 08/04/21 01/30/24 Be Pacheco NP [address] [place] [address] 09179 Nurse Practitioner Cardiology 10/17/22 01/30/24 Maycol Infante MD [address] [place] [address] Specialist Pulmonology 10/19/22 Sebastian Martinez MD [address] [place] [address] Specialist Ophthalmology 03/21/23 Eve Juan MD [address] [place] [address] [place] [address] Specialist UROGYNECOLOGY 03/21/23 Elisa Romero NP [address] [place] [address] [place] [address] Cardiology 01/31/24 Marcus Murcia DO [address] [place] [address] [place] [address] Specialist Physiatry 03/26/24 documented as of this encounter
--- OUTSIDE RECORDS SUMMARY | 2024-09-17 16:07 | XMS_ITS | Encounter Summary ---
Author Organization [facility] Address [address] [place] [address] Care Team Providers Care Siphoner Name Role Phone Wiley Thompson MD Primary Care Provider Kameron Cornejo MD Unavailable Katya Lopez NP Unavailable Unavailab Kathy Haley MD Primary Care Prov ider Be Pacheco NP Unavailable [phone] Maycol Infante MD Unavailable Unavailable Sebastian Martinez MD Unavailable UnavailEve Blackmon MD Unavailable Elisa Romero NP Unavailable [phone] Marcus Murcia DO Unavailable Unavailable Encounter Details Date Type Department Care Team Description 04/22/2019 Release of Information Medical Records [address] [place] [address] Abstract, Provider Social History Tobacco Use Types [...] on file documented as of this encounter Nursing Notes * Naila Lacy - 04/22/2019 9:31 AM EST AUTHORIZATION TO OBTAIN RECORDS MAILED TO Jose CruzNirmala documented in this encounter Plan of Treatment Not on file documented as of this encounter Visit Diagnoses Not on filedocumented in this encounter Care Teams Siphoner Relationship Specialty Start Date End Date Wiley Thompson MD PCP - General Internal Medicine 06/04/14 01/20/22 Kathy Christopher MD [address] [place] [address]993 PCP - General Internal Medicine 01/21/22 Kameron Zuñiga MD Telemarketing Representative Cardiovascular Disease 08/04/21 Katya Lopez NP Cardiology 08/04/21 01/30/24 Be Pacheco NP [address] [place] [address] 60614 Nurse Practitioner Cardiology 10/17/22 01/30/24 Maycol Infante MD [address] [place] [address] 24087 Specialist Pulmonology 10/19/22 Sebastian Martinez MD [address] [place] [address] 04955 Specialist Ophthalmology 03/21/23 Eve Juan MD [address] [place] [address] [place] [address] Specialist UROGYNECOLOGY 03/21/23 Elisa Romero NP [address] [place] [address] [place] [address] Cardiology 01/31/24 Marcus Murcia DO [address] [place] [address] [place] [address] Specialist Physiatry 03/26/24 documented as of this encounter
--- OUTSIDE RECORDS SUMMARY | 2024-09-17 16:07 | XMS_ITS | Encounter Summary ---
Author Organization [facility] Address [address] [place] [address] Care Team Providers Care Jogger Operator Name Role Phone Bri Santacruz MD Primary Care Provider Unavailable Wiley Thompson MD Primary Care Provider Kameron Cornejo MD Unavailable Katya Lopez NP Unavailable Unavailab Kathy Haley MD Primary Care Prov ider Be Pacheco ELECTRICAL SYSTEMS ENGINEER Unavailable [phone] Maycol Infante MD Unavailable Unavailable Sebastian Martinez MD Unavailable UnavailEve Blackmon MD Unavailable Elisa Romero NP Unavailable [phone] Marcus Murcia DO Unavailable Unavailable Encounter Details Date Type Department Care Team Description 03/15/2013 Release of Information Medical Records [address] [place] [address] Abstract, Provider Social History Tobacco Use Types Packs/Day Years Used Date Smoking Tobacco: Former Cigarettes Q uit: 07/17/1989 Alcohol Use Standard Drinks/Week Comments No 0 [...] on filedocumented in this encounter Care Teams Jogger Operator Relationship Specialty Start Date End Date Bri Santacruz MD PCP - General Internal Medicine 04/23/12 06/03/14 Wiley Thompson MD PCP - General Internal Medicine 06/04/14 01/20/22 Kathy Christopher MD [address] [place] [address] PCP - General Internal Medicine 01/21/22 Kameron Zuñiga MD Floor Nurse Cardiovascular Disease 08/04/21 Katya Lopez, IRMA Cardiology 08/04/21 01/30/24 Be Pacheco NP [address] [place] [address] 28512 Nurse Practitioner Cardiology 10/17/22 01/30/24 Maycol Infante MD [address] [place] [address] Specialist Pulmonology 10/19/22 Sebastian Martinez MD [address] [place] [address] Specialist Ophthalmology 03/21/23 Eve Juan MD [address] [place] [address] [place] [address] Specialist UROGYNECOLOGY 03/21/23 Elisa Romero, IRMA [address] [place] [address] [place] [address] Cardiology 01/31/24 Marcus Murcia DO [address] [place] [address] [place] [address] Specialist Physiatry 03/26/24 documented as of this encounter
--- OUTSIDE RECORDS SUMMARY | 2024-09-17 16:07 | XMS_ITS | Encounter Summary ---
Author Organization [facility] Address [address] [place] [address] Care Team Providers Care Early Childhood Associate Teacher Name Role Phone Wiley Thompson MD Primary Care Provider Kameron Cornejo MD Unavailable Katya Lopez UTILITIES EQUIPMENT REPAIRER Unavailable Unavailab Kathy Haley MD Primary Care Prov ider Be Pacheco NP Unavailable [phone] Maycol Infante MD Unavailable Unavailable Sebastian Martinez MD Unavailable UnavailEve Blackmon MD Unavailable Elisa Rmoero NP Unavailable [phone] Marcus Murcia DO Unavailable Unavailable Encounter Details Date Type Department Care Team Description 12/18/2017 Office Machine Inspector Report Medical Records [address] [place] [address] Asya Waller, IRMA Social History Tobacco Use Types Packs/Day Years [...] on filedocumented in this encounter Care Teams Early Childhood Associate Teacher Relationship Specialty Start Date End Date Wiley Thompson MD PCP - General Internal Medicine 06/04/14 01/20/22 Kathy Christopher MD [address] [place] [address] PCP - General Internal Medicine 01/21/22 Kameron Zuñiga MD Hosiery Repairer Cardiovascular Disease 08/04/21 Katya Lopez, IRMA Cardiology 08/04/21 01/30/24 Be Pacheco NP [address] [place] [address] Nurse Practitioner Cardiology 10/17/22 01/30/24 Maycol Infante MD [address] [place] [address] Specialist Pulmonology 10/19/22 Sebastian Martinez MD [address] [place] [address] Specialist Ophthalmology 03/21/23 Eve Juan MD [address] [place] [address] [place] [address] Specialist UROGYNECOLOGY 03/21/23 Elisa Romero NP [address] [place] [address] [place] [address] Cardiology 01/31/24 Marcus Murcia DO [address] [place] [address] [place] [address] Specialist Physiatry 03/26/24 documented as of this encounter
--- OUTSIDE RECORDS SUMMARY | 2024-09-17 16:07 | XMS_ITS | Encounter Summary ---
Author Organization [facility] Address [address] [place] [address] Care Team Providers Care Injection Mold Technician Name Role Phone Wiley Thompson MD Primary Care Provider Kameron Cornejo MD Unavailable Katya Lopez NP Unavailable Unavailab Kathy Haley MD Primary Care Prov ider Be Pacheco NP Unavailable [phone] Maycol Infante MD Unavailable Unavailable Sebastian Martinez MD Unavailable UnavailEve Blackmon MD Unavailable Elisa Romero NP Unavailable [phone] Marcus Murcia DO Unavailable Unavailable Encounter Details Date Type Department Care Team Description 12/03/2021 Telephone Cardio PVCA Diag Testing [address] [facility] [address] [place], [place] [id number] Kameron Zuñiga MD [address] [place] [address] [phone] Social History Tobacco Use Types Packs/Day Years [...] encounter Miscellaneous Notes * Telephone Encounter - Katya Lopez NP - 12/03/2021 3:39 PM EDT Left VM to go over BB, keep same dose or cut in half if really bothersome? Told her to call next week if she wants to review * Telephone Encounter - Ana Valenzuela C.M.A. - 12/03/2021 3:23 PM EDT Pt left another voicemail on my desk phone, I had to remind her to call the main number due to me not always being at my desk or in the office. She was complaining about her appt at 7:40am but I see that it has already been rescheduled for a 12:40 appt in January. As I am speaking to her she wants to mention that yesterday she took her Metoprolol and felt very tired to the point she needed to lay down and sleep. She states she skipped it today. Yesterday when she laid down her BP was 121/66, Today without her Metoprolol was 134/68. I told hernot to stop her meds abruptly and I would notify Katya or Dr Zuñiga. aKtya, You are seeing her in January. documented in this encounter Plan of Treatment Not on file documented as of this encounter Visit Diagnoses Not on filedocumented in this encounter Care Teams Injection Mold Technician Relationship Specialty Start Date End Date Wiley Thompson MD PCP - General Internal Medicine 06/04/14 01/20/22 Kathy Christopher MD [address] [place] [address] PCP - General Internal Medicine 01/21/22 Kameron Zuñiga MD Sales Agent Marine Insurance Cardiovascular Disease 08/04/21 Katya Lopez NP Cardiology 08/04/21 01/30/24 Be Pacheco NP [address] [place] [address] 74198 Nurse Practitioner Cardiology 10/17/22 01/30/24 Maycol Infante MD [address] [place] [address]597 Specialist Pulmonology 10/19/22 Sebastian Martinez MD [address] [place] [address] Specialist Ophthalmology 03/21/23 Eve Juan MD [address] [place] [address] [place] [address] Specialist UROGYNECOLOGY 03/21/23 Elisa Romero NP [address] [place] [address] [place] [address] Cardiology 01/31/24 Marcus Murcia DO [address] [place] [address] [place] [address] Specialist Physiatry 03/26/24 documented as of this encounter
--- OUTSIDE RECORDS SUMMARY | 2024-09-17 16:07 | XMS_ITS | Encounter Summary ---
Author Organization [facility] Address [address] [place] [address] Care Team Providers Care Heel Molder Name Role Phone Wiley Thompson MD Primary Care Provider Kameron Cornejo MD Unavailable Katya Lopez NP Unavailable Unavailab Kathy Haley MD Primary Care Prov ider Be Pacheco NP Unavailable [phone] Maycol Infante MD Unavailable Unavailable Sebastian Martinez MD Unavailable UnavailEve Blackmon MD Unavailable Elisa Romero NP Unavailable [phone] Marcus Murcia DO Unavailable Unavailable Encounter Details Date Type Department Care Team Description 04/12/2017 Refill Adult Medicine [address] [id number] Wiley Thompson MD Social History Tobacco Use [...] encounter Miscellaneous Notes * Telephone Encounter - Vita RuddP.NJose Cruz - 04/12/2017 3:24 PM EDT Spoke with pt, she does still use the nebulizer * Telephone Encounter - Barbra Espinoza - 04/12/2017 2:20 PM EDT Patient would like script to be: E-PRESCRIBED/FAXED TO PHARMACY WHEN WAS THE PATIENT'S LAST APPOINTMENT IN ADULT MEDICINE? 03/28/17 WHEN WAS THE LAST TIME THE PATIENT SAW THEIR PCP? Same as above Does patient have an upcoming appointment? Yes 05/31/17 (THE MEDICATION REQUESTED IS ON THE MED LIST ABOVE) All of the medications requested were on the CURRENT MEDS list Did you check the Pharmacy information above?: YES Patient wants: 30 -day supply Is this a mail order prescription request ? NO Patients current insurance carrier is: Payor: [facility] / Plan: [place] [facility] [facility]informatics[facility] [id number] / Product Type: HMO [id number] documented in this encounter Plan of Treatment Not on file documented as of this encounter Visit Diagnoses Not on filedocumented in this encounter Care Teams Heel Molder Relationship Specialty Start Date End Date Wiley Thompson MD PCP - General Internal Medicine 06/04/14 01/20/22 Trina Rizo, Kathy Fried MD [address] [place] [address] PCP - General Internal Medicine 01/21/22 Kameron Zuñiga MD Motor Grader Rough Grade Cardiovascular Disease 08/04/21 Katya Lopez NP Cardiology 08/04/21 01/30/24 Be Pacheco NP [address] [place] [address] Nurse Practitioner Cardiology 10/17/22 01/30/24 Maycol Infante MD [address] [place] [address] Specialist Pulmonology 10/19/22 Sebastian Martinez MD [address] [place] [address] Specialist Ophthalmology 03/21/23 Eve Juan MD [address] [place] [address] [place] [address] Specialist UROGYNECOLOGY 03/21/23 Elisa Romero NP [address] [place] [address] [place] [address] Cardiology 01/31/24 Marcus Murcia DO [address] [place] [address] [place] [address] Specialist Physiatry 03/26/24 documented as of this encounter
--- OUTSIDE RECORDS SUMMARY | 2024-09-17 16:07 | XMS_ITS | Encounter Summary ---
Author Organization [facility] Address [address] [place] [address] Care Team Providers Care Disc Recordist Name Role Phone Wiley Thompson MD Primary Care Provider Kameron Cornejo MD Unavailable Katya Lopez NP Unavailable Unavailab Kathy Christopher MD Primary Care Prov ider Be Pacheco NP Unavailable [phone] Maycol Infante MD Unavailable Unavailable Sebastian Martinez MD Unavailable UnavailEve Blackmon MD Unavailable Elisa Romero NP Unavailable [phone] Marcus Murcia DO Unavailable Unavailable Encounter Details Date Type Department Care Team Description 03/09/2015 Transfer Records Medical Records [address] [place] [address] [facility] Social History Tobacco Use Types Packs/Day Years [...] on filedocumented in this encounter Care Teams Disc Recordist Relationship Specialty Start Date End Date Wiley Thompson MD PCP - General Internal Medicine 06/04/14 01/20/22 Ktahy Christopher MD [address] [place] [address] 8[address]33 PCP - General Internal Medicine 01/21/22 Kameron Zuñiga MD Union Contract Representative Cardiovascular Disease 08/04/21 Katya Lopez NP Cardiology 08/04/21 01/30/24 Be Pacheco NP [address] [place] [address] 86760 Nurse Practitioner Cardiology 10/17/22 01/30/24 Maycol Infante MD [address] [place] [address] 98183 Specialist Pulmonology 10/19/22 Sebastian Martinez MD [address] [place], [place] [phone] Specialist Ophthalmology 03/21/23 Eve Juan MD [address] [place] [address] [place] [address] Specialist UROGYNECOLOGY 03/21/23 Eilsa Romero NP [address] [place] [address] [place] [address] Cardiology 01/31/24 Marcus Murcia DO [address] [place] [address] [place] [address] Specialist Physiatry 03/26/24 documented as of this encounter
--- OUTSIDE RECORDS SUMMARY | 2024-09-17 16:07 | XMS_ITS | Encounter Summary ---
Author Organization [facility] Address [address] [place] [address] Care Team Providers Care Lamination Assembler Name Role Phone Wiley Thompson MD Primary Care Provider Kameron Cornejo MD Unavailable Katya Lopez NP Unavailable Unavailab Kathy Haley MD Primary Care Prov ider Be Pacheco NP Unavailable [phone] Maycol Infante MD Unavailable Unavailable Sebastian Martinez MD Unavailable UnavailEve Blackmon MD Unavailable Elisa Romero NP Unavailable [phone] Marcus Murcia DO Unavailable Unavailable Encounter Details Date Type Department Care Team Description 02/12/2019 Sole Leveler Machine Report Medical Records [address] [place] [address] Matti Bansal Social History Tobacco Use Types Packs/Day Years [...] on filedocumented in this encounter Care Teams Lamination Assembler Relationship Specialty Start Date End Date Wiley Tohmpson MD PCP - General Internal Medicine 06/04/14 01/20/22 Kathy Christopher MD [address] [place] [address]22 PCP - General Internal Medicine 01/21/22 Kameron Zuñiga MD Tenant Coordinator Cardiovascular Disease 08/04/21 Katya Lopez NP Cardiology 08/04/21 01/30/24 Be Pacheco NP [address] [place] [address] 38674 Nurse Practitioner Cardiology 10/17/22 01/30/24 Maycol Infante MD [address] [place] [address] 40561 Specialist Pulmonology 10/19/22 Sebastian Martinez MD [address] [place] [address] 23542 Specialist Ophthalmology 03/21/23 Eve Juan MD [address] [place] [address] [place] [address] Specialist UROGYNECOLOGY 03/21/23 Elisa Romero NP [address] [place] [address] [place] [address] Cardiology 01/31/24 Marcus Murcia DO [address] [place] [address] [place] [address] Specialist Physiatry 03/26/24 documented as of this encounter
--- OUTSIDE RECORDS SUMMARY | 2024-09-17 16:07 | XMS_ITS | Encounter Summary ---
Author Organization [facility] Address [address] [place] [address] Care Team Providers Care Instructor Military Science Name Role Phone Wiley Thompson MD Primary Care Provider Kameron Cornejo MD Unavailable Katya Lopez CAREER CENTER ADVISOR Unavailable Unavailab Kathy Christopher MD Primary Care Prov ider Be Pacheco NP Unavailable [phone] Maycol Infante MD Unavailable Unavailable Sebastian Martinez MD Unavailable UnavailEve Blackmon MD Unavailable Elisa Romero NP Unavailable [phone] Marcus Murcia DO Unavailable Unavailable Encounter Details Date Type Department Care Team Description 08/30/2019 Customer Support Assistant Report Medical Records [address] [place] [address] Maycol Infante MD Social History Tobacco Use [...] on filedocumented in this encounter Care Teams Instructor Military Science Relationship Specialty Start Date End Date Wiley Thompson MD PCP - General Internal Medicine 06/04/14 01/20/22 Kathy Christopher MD [address] [place] [address]8884 PCP - General Internal Medicine 01/21/22 Kameron Zuñiga MD Vocal Teacher Cardiovascular Disease 08/04/21 Katya Lopez, IRMA Cardiology 08/04/21 01/30/24 Be Pacheco NP [address] [place] [address] 17385 Nurse Practitioner Cardiology 10/17/22 01/30/24 Maycol Infante MD [address] [place] [address]4724 Specialist Pulmonology 10/19/22 Sebastian Martinez MD [address] [place] [address] 58734 Specialist Ophthalmology 03/21/23 Eve Juan MD [address] [place] [address] [place] [address] Specialist UROGYNECOLOGY 03/21/23 Elisa Romero NP [address] [place] [address] [place] [address] Cardiology 01/31/24 Marcus Murcia DO [address] [place] [address] [place] [address] Specialist Physiatry 03/26/24 documented as of this encounter
--- OUTSIDE RECORDS SUMMARY | 2024-09-17 16:07 | XMS_ITS | Encounter Summary ---
Author Organization [facility] Address [address] [place] [address] Care Team Providers Care Centrifuge Operator Name Role Phone Kameron Zuñiga MD Unavailable Katya Lopez NP Unavailable Unavailab Kathy Haley MD Primary Care Prov ider Be Pacheco NP Unavailable [phone] Maycol Infante MD Unavailable Unavailable Sebastian Martinez MD Unavailable UnavailEve Blackmon MD Unavailable Elisa Romero NP Unavailable [phone] Marcus Murcia DO Unavailable Unavailable Encounter Details Date Type Department Care Team Description 08/21/2023 Orders Only Medical Records [address] [place] [address] [facility] Social History Tobacco Use Types Packs/Day [...] Name Priority Date/Time Associated Diagnosis Comments OUTSIDE EKG Routine 08/03/[address] Routine 08/03/2023 OUTSIDE LAB Routine 08/03/2023 documented in this encounter Results * OUTSIDE CT (08/03/2023) Narrative Authorizing Provider Result [facility] RADIOLOGY * OUTSIDE LAB (08/03/2023) Narrative Authorizing Provider Result [facility] LAB * OUTSIDE EKG (08/03/2023) Narrative Authorizing Provider Result [facility] CARDIOLOGY documented in this encounter Visit Diagnoses Not on filedocumented in this encounter Care Teams Centrifuge Operator Relationship Specialty Start Date End Date Kathy Christopher MD [address] [place] [address] PCP - General Internal Medicine 01/21/22 Kameron Zuñiga MD Business Law Teacher Cardiovascular Disease 08/04/21 Katya Lopez NP Cardiology 08/04/21 01/30/24 Be Pacheco NP [address] [place] [address] 11007 Nurse Practitioner Cardiology 10/17/22 01/30/24 Maycol Infante MD [address] [place] [address]58 Specialist Pulmonology 10/19/22 Sebastian Martinez MD [address] [place] [address] 91851 Specialist Ophthalmology 03/21/23 Eve Juan MD [address] [place] [address] [place] [address] Specialist UROGYNECOLOGY 03/21/23 Elisa Romero NP [address] [place] [address] [place] [address] Cardiology 01/31/24 Marcus Murcia DO [address] [place] [address] [place] [address] Specialist Physiatry 03/26/24 documented as of this encounter
--- OUTSIDE RECORDS SUMMARY | 2024-09-17 16:07 | XMS_ITS | Encounter Summary ---
Author Organization [facility] Address [address] [place] [address] Care Team Providers Care Fish Checker Name Role Phone Wiley Thompson MD Primary Care Provider Kameron Cornejo MD Unavailable Katya Lopez NP Unavailable Unavailab Kathy Haley MD Primary Care Prov ider Be Pacheco NP Unavailable [phone] Maycol Infante MD Unavailable Unavailable Sebastian Martinez MD Unavailable UnavailEve Blackmon MD Unavailable Elisa Romero NP Unavailable [phone] Marcus Murcia DO Unavailable Unavailable Encounter Details Date Type Department Care Team Description 08/26/2021 SCAN Medical Records [address] [place] [address] Abstract, Provider Social History Tobacco Use Types [...] Name Priority Date/Time Associated Diagnosis Comments OUTSIDE VASCULAR STUDY Routine 08/26/2021 documented in this encounter Results * OUTSIDE VASCULAR STUDY (08/26/2021) Provider Abstract CARDIOLOGY documented in this encounter Visit Diagnoses Not on filedocumented in this encounter Care Teams Fish Checker Relationship Specialty Start Date End Date Wiley Thompson MD PCP - General Internal Medicine 06/04/14 01/20/22 Kathy Christopher MD [address] [place] [address] PCP - General Internal Medicine 01/21/22 Kameron Zuñiga MD Marine Transport Professionals Cardiovascular Disease 08/04/21 Katya Lopez NP Cardiology 08/04/21 01/30/24 Be Pacheco NP [address] [place] [address] 18686 Nurse Practitioner Cardiology 10/17/22 01/30/24 Maycol Infante MD [address] [place] [address] 47439 Specialist Pulmonology 10/19/22 Sebastian Martinez MD [address] [place] [address] 48329 Specialist Ophthalmology 03/21/23 Eve Juan MD [address] [place] [address] [place] [address] Specialist UROGYNECOLOGY 03/21/23 Elisa Romero NP [address] [place] [address] [place] [address] Cardiology 01/31/24 Marcus Murcia DO [address] [place] [address] [place] [address] Specialist Physiatry 03/26/24 documented as of this encounter
--- OUTSIDE RECORDS SUMMARY | 2024-09-17 16:07 | XMS_ITS | Encounter Summary ---
Author Organization [facility] Address [address] [place] [address] Care Team Providers Care Gear Grinder Name Role Phone Kameron Zuñiga MD Unavailable Katya Lopez NP Unavailable Unavailab le Kathy Christopher MD Primary Care Prov ider Be Pacheco NP Unavailable [phone] Maycol Infante MD Unavailable Unavailable Sebastian Martinez MD Unavailable UnavailEve Blackmon MD Unavailable Elisa Romero NP Unavailable [phone] Marcus Murcia DO Unavailable Unavailable Encounter Details Date Type Department Care Team Description 10/30/2023 Marketing Communications Associate Report Medical Records [address] [place] [address] Lalitha Diego, [facility]- Social History Tobacco Use Types Packs/Day Years [...] on filedocumented in this encounter Care Teams Gear Grinder Relationship Specialty Start Date End Date Kathy Christopher MD [address] [place] [address] [phone] PCP - General Internal Medicine 01/21/22 Kameron Zuñiga MD Physical Therapy Technician Cardiovascular Disease 08/04/21 Kayta Lopez, IRMA Cardiology 08/04/21 01/30/24 Be Pacheco NP [address] [place] [address] 14900 Nurse Practitioner Cardiology 10/17/22 01/30/24 Maycol Infante MD [address] [place] [address] 48963 Specialist Pulmonology 10/19/22 Sebastian Martinez MD [address] [place] [address] Specialist Ophthalmology 03/21/23 Eve Juan MD [address] [place] [address] [place] [address] Specialist UROGYNECOLOGY 03/21/23 Elisa Romero NP [address] [place] [address] [place] [address] Cardiology 01/31/24 Marcus Murcia DO [address] [place] [address] [place] [address] Specialist Physiatry 03/26/24 documented as of this encounter
--- OUTSIDE RECORDS SUMMARY | 2024-09-17 16:07 | XMS_ITS | Encounter Summary ---
Author Organization [facility] Address [address] [place] [address] Care Team Providers Care Gypsum Calciner Name Role Phone Wiley Thompson MD Primary Care Provider Kameron Cornejo MD Unavailable Katya Lopez NP Unavailable Unavailab Kathy Christopher MD Primary Care Prov ider Be Pacheco NP Unavailable [phone] Maycol Infante MD Unavailable Unavailable Sebastian Martinez MD Unavailable UnavailEve Blackmon MD Unavailable Elisa Romero NP Unavailable [phone] Marcus Murcia DO Unavailable Unavailable Encounter Details Date Type Department Care Team Description 12/29/2017 Web Designer Developer Report Medical Records [address] [place] [address] Abstract, Provider Social History Tobacco Use Types [...] on filedocumented in this encounter Care Teams Gypsum Calciner Relationship Specialty Start Date End Date Wiley Thompson MD PCP - General Internal Medicine 06/04/14 01/20/22 Kathy Christopher MD [address] [place] [address]2453 PCP - General Internal Medicine 01/21/22 Kameron Zuñiga MD Crotch Breaker Cardiovascular Disease 08/04/21 Katya Lopez NP Cardiology 08/04/21 01/30/24 Be Pacheco NP [address] [place] [address] 00347 Nurse Practitioner Cardiology 10/17/22 01/30/24 Maycol Infante MD [address] [place] [address] 22676 Specialist Pulmonology 10/19/22 Sebastian Martinez MD [address] [place] [address] 61151 Specialist Ophthalmology 03/21/23 Eve Juan MD [address] [place] [address] [place] [address] Specialist UROGYNECOLOGY 03/21/23 Elisa Romero NP [address] [place] [address] [place] [address] Cardiology 01/31/24 Marcus Murcia DO [address] [place] [address] [place] [address] Specialist Physiatry 03/26/24 documented as of this encounter
--- OUTSIDE RECORDS SUMMARY | 2024-09-17 16:07 | XMS_ITS | Encounter Summary ---
Author Organization [facility] Address [address] [place] [address] Care Team Providers Care Supervisor Solder Making Name Role Phone Wiley Thompson MD Primary Care Provider Kameron Cornejo MD Unavailable Katya Lopez NP Unavailable Unavailab Kathy Haley MD Primary Care Prov ider Be Pacheco NP Unavailable [phone] Maycol Infante MD Unavailable Unavailable Sebastian Martinez MD Unavailable UnavailEve Blackmon MD Unavailable Elisa Romero NP Unavailable [phone] Marcus Murcia DO Unavailable Unavailable Encounter Details Date Type Department Care Team Description 01/15/2019 Orders Only Medical Records [address] [place] [address] Abstract, Provider Mammographic microcalcification Social History Tobacco Use Types Packs/Day Years [...] Procedure Name Priority Date/Time Associated Diagnosis Comments DE BX BREAST W/DEVICE 1ST LESION STEREOTACTIC GUID Routine 01/14/2019 Mammographic microcalcification documented in this encounter Results * BX BREAST W DEVICE 1ST LESION STEREOTACTIC GUIDE (01/14/2019) Ivan Reddy MD MAMMOGRAPHY documented in this encounter Visit Diagnoses Diagnosis Mammographic microcalcification documented in this encounter Care Teams Supervisor Solder Making Relationship Specialty Start Date End Date Wiley Thompson MD PCP - General Internal Medicine 06/04/14 01/20/22 Kathy Christopher MD [address] [place] [address]696 PCP - General Internal Medicine 01/21/22 Kameron Zuñiga MD Electric Mule Driver Cardiovascular Disease 08/04/21 Katya Lopez NP Cardiology 08/04/21 01/30/24 Be Pacheco NP [address] [place] [address] 22759 Nurse Practitioner Cardiology 10/17/22 01/30/24 Maycol Infante MD [address] [place] [address] 45448 Specialist Pulmonology 10/19/22 Sebastian Martinez MD [address] [place], [place] [phone] Specialist Ophthalmology 03/21/23 Eve Juan MD [address] [place] [address] [place] [address] Specialist UROGYNECOLOGY 03/21/23 Elisa Romero NP [address] [place] [address] [place] [address] Cardiology 01/31/24 Marcus Murcia DO [address] [place] [address] [place] [address] Specialist Physiatry 03/26/24 documented as of this encounter
--- OUTSIDE RECORDS SUMMARY | 2024-09-17 16:07 | XMS_ITS | Encounter Summary ---
Author Organization [facility] Address [address] [place] [address] Care Team Providers Care Manager Cost Name Role Phone Wiley Thompson MD Primary Care Provider Kameron Cornejo MD Unavailable Katya Lopez COMMUNITY DEVELOPMENT PLANNER Unavailable Unavailab Kathy Haley MD Primary Care Prov ider Be Pacheco COMMUNITY DEVELOPMENT PLANNER Unavailable [phone] Maycol Infante MD Unavailable Unavailable Sebastian Martinez MD Unavailable UnavailEve Blackmon MD Unavailable Elisa Romero NP Unavailable [phone] Marcus Murcia DO Unavailable Unavailable Encounter Details Date Type Department Care Team Description 01/15/2018 Boots And Shoes Supervisor Report Medical Records [address] [place] [address] Asya Waller, IRMA Social History Tobacco Use [...] on filedocumented in this encounter Care Teams Manager Cost Relationship Specialty Start Date End Date Wiley Thompson MD PCP - General Internal Medicine 06/04/14 01/20/22 Kathy Christopher MD [address] [place] [address]87 PCP - General Internal Medicine 01/21/22 Kameron Zuñiga MD Commercial Loan Collection Officer Cardiovascular Disease 08/04/21 Katya Lopez, IRMA Cardiology 08/04/21 01/30/24 Be Pacheco NP [address] [place] [address] Nurse Practitioner Cardiology 10/17/22 01/30/24 Maycol Infante MD [address] [place] [address]386 Specialist Pulmonology 10/19/22 Sebastian Martinez MD [address] [place] [address] 91433 Specialist Ophthalmology 03/21/23 Eve Juan MD [address] [place] [address] [place] [address] Specialist UROGYNECOLOGY 03/21/23 Elisa Romero NP [address] [place] [address] [place] [address] Cardiology 01/31/24 Marcus Murcia DO [address] [place] [address] [place] [address] Specialist Physiatry 03/26/24 documented as of this encounter
--- OUTSIDE RECORDS SUMMARY | 2024-09-17 16:08 | XMS_ITS | Encounter Summary ---
Author Organization [facility] Address [address] [place] [address] Care Team Providers Care Police Officer Name Role Phone Wiley Thompson MD Primary Care Provider Kameron Cornejo MD Unavailable Katya Lopez NP Unavailable Unavailab Kathy Haley MD Primary Care Prov ider Be Pacheco NP Unavailable [phone] Maycol Infante MD Unavailable Unavailable Sebastian Martinez MD Unavailable UnavailEve Blackmon MD Unavailable Elisa Romero NP Unavailable [phone] Marcus Murcia DO Unavailable Unavailable Reason for Visit * Reason Comments E-prescribe Rx Request Encounter Details Date Type Department Care Team Description 11/04/2020 Refill Adult Medicine [address] [phone] Pau Shultz PA [address] [place] [address] [phone] E-prescribe Rx Request Social History Tobacco Use Types Packs/Day Years [...] have Coronavirus / COVID-19? No / Unsure 11/05/2020 2:28 PM EDT documented as of this encounter Miscellaneous Notes * Telephone Encounter - dean MagallonAlmonte - 11/05/2020 3:48 PM EDT Patient would like script to be: E-PRESCRIBED/FAXED TO PHARMACY WHEN WAS THE PATIENT'S LAST APPOINTMENT IN ADULT MEDICINE? 10/29/2020 WHEN WAS THE LAST TIME THE PATIENT SAW THEIR PCP? 07/07/2020 Does patient have an upcoming appointment? Yes 02/08/2021 (THE MEDICATION REQUESTED IS ON THE MED LIST ABOVE) All of the medications requested were on the CURRENT MEDS list Did you check the Pharmacy information above?: YES Patient wants: 30 -day supply Is this a mail order prescription request ? NO If the refill is from a FAXED refill request what is the RX # listed on the fax? N/A Patients current insurance carrier is: Payor: [facility] M[facility] / Plan: [facility] $0 [facility] [id number] / Product Type: HMO [id number] documented in this encounter Plan of Treatment Not on file documented as of this encounter Visit Diagnoses Not on filedocumented in this encounter Care Teams Police Officer Relationship Specialty Start Date End Date Wiley Thompson MD PCP - General Internal Medicine 06/04/14 01/20/22 Trina Rizo, Kathy Fried MD [address] [place] [address] 32439 PCP - General Internal Medicine 01/21/22 Kameron Zuñiga MD Utility Manager Cardiovascular Disease 08/04/21 Katya Lopez NP Cardiology 08/04/21 01/30/24 Be Pacheco NP [address] [place] [address] 93113 Nurse Practitioner Cardiology 10/17/22 01/30/24 Maycol Infante MD [address] [place] [address] 02342 Specialist Pulmonology 10/19/22 Sebastian Martinez MD [address] [place] [address] Specialist Ophthalmology 03/21/23 Eve Juan MD [address] [place] [address] [place] [address] Specialist UROGYNECOLOGY 03/21/23 Elisa Romero NP [address] [place] [address] [place] [address] Cardiology 01/31/24 Marcus Murcia DO [address] [place] [address] [place] [address] Specialist Physiatry 03/26/24 documented as of this encounter
--- OUTSIDE RECORDS SUMMARY | 2024-09-17 16:08 | XMS_ITS | Encounter Summary ---
Author Organization [facility] Address [address] [place] [address] Care Team Providers Care Wheat Buyer Name Role Phone Kameron Zuñiga MD Unavailable Ktaya Lopez NP Unavailable Unavailab Kathy Christopher MD Primary Care Prov ider Be Pacheco NP Unavailable [phone] Maycol Infante MD Unavailable Unavailable Sebastian Martinez MD Unavailable UnavailEve Blackmon MD Unavailable Elisa Romero NP Unavailable [phone] Marcus Murcia DO Unavailable Unavailable Reason for Visit * Reason Onset Date Comments APPOINTMENT 05/11/2022 Encounter Details Date Type Department Care Team Description 05/11/2022 Telephone Adult Medicine [address] [phone] Kathy Christopher MD [address] [place] [address] [phone] APPOINTMENT Social History Tobacco Use Types Packs/Day Years [...] suspected to have Coronavirus/COVID-19? No / Unsure 05/11/2022 10:43 AM EST documented as of this encounter Miscellaneous Notes * Telephone Encounter - Milady Cooper - 05/11/2022 11:13 AM EST Pt had a hospital f/u booked for today at 10:30AM with , pt was checked in late and provider declined to see pt. I tried to advise to pt late policy and there was no appt available left for today or the rest of the week. Pt rudely said some words and left office. BSR if pt calls office, please advise their is no sooner appt with our office. Next available is about two weeks out, pt to keep upcoming appt with specialist on 05/16 to discuss/remove brown documented in this encounter Plan of Treatment Not on file documented as of this encounter Visit Diagnoses Not on filedocumented in this encounter Care Teams Wheat Buyer Relationship Specialty Start Date End Date Kathy Christopher MD [address] [place] [address] 49870 PCP - General Internal Medicine 01/21/22 Kameron Zuñiga MD Plastics Nurse Cardiovascular Disease 08/04/21 Katya Lopez NP Cardiology 08/04/21 01/30/24 Be Pacheco NP [address] [place] [address] 87140 Nurse Practitioner Cardiology 10/17/22 01/30/24 Maycol Infante MD [address] [place] [address] 86274 Specialist Pulmonology 10/19/22 Sebastian Martinez MD [address] [place] [address] 33768 Specialist Ophthalmology 03/21/23 Eve Juan MD [address] [place] [address] [place] [address] Specialist UROGYNECOLOGY 03/21/23 Elisa Romero NP [address] [facility] [place] [address] Cardiology 01/31/24 Marcus Murcia DO [address] [facility] [address] Specialist Physiatry 03/26/24 documented as of this encounter
--- OUTSIDE RECORDS SUMMARY | 2024-09-17 16:08 | XMS_ITS | Encounter Summary ---
Author Organization [facility] Address [address] [place] [address] Care Team Providers Care Forging Machine Hand Name Role Phone Wiley Thompson MD Primary Care Provider Kameron Cornejo MD Unavailable Katya Lopez NURSERY SUPERVISOR Unavailable Unavailab Kathy Christopher MD Primary Care Prov ider eB Pacheco NP Unavailable [phone] Maycol Infante MD Unavailable Unavailable Sebastian Martinez MD Unavailable UnavailEve Blackmon MD Unavailable Elisa Romero NP Unavailable [phone] Marcus Murcia DO Unavailable Unavailable Encounter Details Date Type Department Care Team Description 11/19/2019 Inclusion Intern Report Medical Records [address] [place] [address] 80909 Maycol Infante MD Social History Tobacco Use [...] on filedocumented in this encounter Care Teams Forging Machine Hand Relationship Specialty Start Date End Date Wiley Thompson MD PCP - General Internal Medicine 06/04/14 01/20/22 Kathy Christopher MD [address] [place] [address] 83260 PCP - General Internal Medicine 01/21/22 Kameron Zuñiga MD Steward/Stewardess Wine Cardiovascular Disease 08/04/21 Katya Lopez, IRMA Cardiology 08/04/21 01/30/24 Be Pacheco NP [address] [place] [address] 24515 Nurse Practitioner Cardiology 10/17/22 01/30/24 Maycol Infante MD [address] [place] [address] 21476 Specialist Pulmonology 10/19/22 Sebastian Martinez MD [address] [place] [address] 21186 Specialist Ophthalmology 03/21/23 Eve Juan MD [address] [place] [address] [place] [address] Specialist UROGYNECOLOGY 03/21/23 Elisa Romero NP [address] [place] [address] [place] [address] Cardiology 01/31/24 Marcus Murcia DO [address] [place] [address] [place] [address] Specialist Physiatry 03/26/24 documented as of this encounter
--- OUTSIDE RECORDS SUMMARY | 2024-09-17 16:08 | XMS_ITS | Encounter Summary ---
Author Organization [facility] Address [address] [place] [address] Care Team Providers Care Childcare Attendant Name Role Phone Wiley Thompson MD Primary Care Provider Kameron Cornejo MD Unavailable Katya Lopez NP Unavailable Unavailab Kathy Haley MD Primary Care Prov ider Be Pacheco NP Unavailable Maycol Infante MD Unavailable Unavailable Sebastian Martinez MD Unavailable UnavailEve Blackmon MD Unavailable Elisa Romero NP Unavailable Marcus Murcia DO Unavailable Unavailable Encounter Details Date Type Department Care Team Description 06/15/2020 Hospital Medical Records [address] [place] [address] Christophe Sharp MD [address] [place] [address] [id number] Social History Tobacco Use Types Packs/Day Years [...] have Coronavirus / COVID-19? No / Unsure 06/08/2020 12:46 PM EST documented as of this encounter Plan of Treatment Not on file documented as of this encounter Visit Diagnoses Not on filedocumented in this encounter Care Teams Childcare Attendant Relationship Specialty Start Date End Date Wiley Thompson MD PCP - General Internal Medicine 06/04/14 01/20/22 Trina Rizo, Kathy Fried MD [address] [place] [address] 6[address]36 PCP - General Internal Medicine 01/21/22 Kameron Zuñiga MD Band Presser Cardiovascular Disease 08/04/21 Katya Lopez NP Cardiology 08/04/21 01/30/24 Be Pacheco NP [address] [place] [address] 03647 Nurse Practitioner Cardiology 10/17/22 01/30/24 Maycol Infante MD [address] [place] [address] 92313 Specialist Pulmonology 10/19/22 Sebastian Martinez MD [address] [place], [place] [address] Specialist Ophthalmology 03/21/23 Eve Juan MD [address] [place] [address] [place] [address] Specialist UROGYNECOLOGY 03/21/23 Elisa Romero NP [address] [place] [address] [place] [address] Cardiology 01/31/24 Marcus Murcia DO [address] [place] [address] [place] [address] Specialist Physiatry 03/26/24 documented as of this encounter
--- OUTSIDE RECORDS SUMMARY | 2024-09-17 16:08 | XMS_ITS | Encounter Summary ---
Author Organization [facility] Address [address] [place] [address] Care Team Providers Care Heating Element Winder Name Role Phone Kameron Zuñiga MD Unavailable Kathy Christopher MD Primary Care Prov ider Maycol Infante MD Unavailable Unavailable Sebastian Martinez MD Unavailable UnavailEve Blackmon MD Unavailable Elisa Romero NP Unavailable [phone] Marcus Murcia DO Unavailable Unavailable Encounter Details Date Type Department Care Team Description 03/20/2024 Rn Interventional Report Medical Records [address] [place] [address] Pierre Oliva PA-C Social History Tobacco Use Types Packs/Day [...] on filedocumented in this encounter Care Teams Heating Element Winder Relationship Specialty Start Date End Date Kathy Christopher MD [address] [place] [address] PCP - General Internal Medicine 01/21/22 Kameron Zuñiga MD Staple Cutter Cardiovascular Disease 08/04/21 Maycol Infante MD [address] [place] [address] 80026 Specialist Pulmonology 10/19/22 Sebastian Martinez MD [address] [place] [address] 04750 Specialist Ophthalmology 03/21/23 Eve Juan MD [address] [place] [address] [place] [address] Specialist UROGYNECOLOGY 03/21/23 Elisa Romero NP [address] [place] [address] [place] [address] Cardiology 01/31/24 Marcus Murcia DO [address] [place] [address] [place] [address] Specialist Physiatry 03/26/24 documented as of this encounter
--- OUTSIDE RECORDS SUMMARY | 2024-09-17 16:08 | XMS_ITS | Encounter Summary ---
Author Organization [facility] Address [address] [place] [address] Care Team Providers Care Wireline Operator Name Role Phone Wiley Thompson MD Primary Care Provider Kameron Cornejo MD Unavailable Katya Lopez ONLINE MARKETING STRATEGIST Unavailable Unavailab Kathy Christopher MD Primary Care Prov ider Be Pacheco NP Unavailable Maycol Infante MD Unavailable Unavailable Sebastian Martinez MD Unavailable UnavailEve Blackmon MD Unavailable Elisa Romero NP Unavailable [phone] Marcus Murcia DO Unavailable Unavailable Encounter Details Date Type Department Care Team Description 09/20/2017 Park Interpretive Specialist Report Medical Records [address] [place] [address] 57248 Pallavi Henry MD Social History Tobacco Use Types Packs/Day [...] on filedocumented in this encounter Care Teams Wireline Operator Relationship Specialty Start Date End Date Wiley Thompson MD PCP - General Internal Medicine 06/04/14 01/20/22 Kathy Christopher MD [address] [place] [address] 46014 PCP - General Internal Medicine 01/21/22 Kameron Zuñiga MD Law Tutor Cardiovascular Disease 08/04/21 Katya Lopez, IRMA Cardiology 08/04/21 01/30/24 Be Pacheco NP [address] [place] [address] 30917 Nurse Practitioner Cardiology 10/17/22 01/30/24 Maycol Infante MD [address] [place] [address] 17906 Specialist Pulmonology 10/19/22 Sebastian Martinez MD [address] [place] [address] 84547 Specialist Ophthalmology 03/21/23 Eve Juan MD [address] [place] [address] [place] [address] Specialist UROGYNECOLOGY 03/21/23 Elisa Romero NP [address] [place] [address] [place] [address] Cardiology 01/31/24 Marcus Murcia DO [address] [place] [address] [place] [address] Specialist Physiatry 03/26/24 documented as of this encounter
--- OUTSIDE RECORDS SUMMARY | 2024-09-17 16:08 | XMS_ITS | Encounter Summary ---
Author Organization [facility] Address [address] [place] [address] Care Team Providers Care Life Insurance Salesperson Name Role Phone Kameron Zuñiga MD Unavailable Katya Lopez NP Unavailable Unavailab Kathy Haley MD Primary Care Prov ider Be Pacheco NP Unavailable [phone] Maycol Infante MD Unavailable Unavailable Sebastian Martinez MD Unavailable UnavailEve Blackmon MD Unavailable Elisa Romero NP Unavailable [phone] Marcus Murcia DO Unavailable Unavailable Reason for Visit * Reason Onset Date Comments hospital follow up 10/03/2022 Encounter Details Date Type Department Care Team Description 10/03/2022 Telephone Cardio PVCA Diag Testing [address] [place], [place] [phone] Kameron Zuñiga MD [address] [place] [address] [phone] hospital follow up Social History Tobacco Use Types Packs/Day Years [...] encounter Miscellaneous Notes * Telephone Encounter - Deborah Molina - 10/03/2022 3:04 PM EDT Hospital follow up appointment scheduled with Jessica Esqueda on , November 24, 2022 at 3:30 PMI spoke with Shea and mailed an appointment reminder. * Telephone Encounter - Barry Fuentes - 10/03/2022 11:02 AM EDT Patient is calling stating she was discharged form [facility] on 09/26/22 for congestiveheart failure. documented in this encounter Plan of Treatment Not on file documented as of this encounter Visit Diagnoses Not on filedocumented in this encounter Care Teams Life Insurance Salesperson Relationship Specialty Start Date End Date Kathy Christopher MD [address] [place] [address] 76889 PCP - General Internal Medicine 01/21/22 Kameron Zuñiga MD Machine Guide Base Winder Cardiovascular Disease 08/04/21 Katya Lopez NP Cardiology 08/04/21 01/30/24 Be Pacheco NP [address] [place] [address] 11007 Nurse Practitioner Cardiology 10/17/22 01/30/24 Maycol Infante MD [address] [place] [address] 42826 Specialist Pulmonology 10/19/22 Sebastian Martinez MD [address] [place] [address] 47011 Specialist Ophthalmology 03/21/23 Eve Juan MD [address] [place] [address] [place] [address] Specialist UROGYNECOLOGY 03/21/23 Elisa Romero NP [address] [place] [address] [place] [address] Cardiology 01/31/24 Marcus Murcia DO [address] [facility] [place] [address] Specialist Physiatry 03/26/24 documented as of this encounter
--- OUTSIDE RECORDS SUMMARY | 2024-09-17 16:08 | XMS_ITS | Encounter Summary ---
Author Organization [facility] Address [address] [place] [address] Care Team Providers Care Validation Architect Name Role Phone Wiley Thompson MD Primary Care Provider Kameron Cornejo MD Unavailable Katya Lopez NP Unavailable Unavailab Kathy Haley MD Primary Care Prov ider Be Pacheco NP Unavailable [phone] Maycol Infante MD Unavailable Unavailable Sebastian Martinez MD Unavailable UnavailEve Blackmon MD Unavailable Elisa Romero NP Unavailable [phone] Marcus Murcia DO Unavailable Unavailable Reason for Visit * Reason Comments E-prescribe Rx Request Encounter Details Date Type Department Care Team Description 10/21/2020 Refill Adult Medicine [address] [address] Wiley Thompson MD E-prescribe Rx Request Social History Tobacco Use [...] have Coronavirus / COVID-19? No / Unsure 10/08/2020 3:26 PM EDT documented as of this encounter Miscellaneous Notes * Telephone Encounter - Nellie Short M.A. - 10/21/2020 1:03 PM EDT Lab Results Component Value Date CHOL 146 08/06/2020 LDL 64 08/06/2020 HDL 45 08/06/2020 TRIG 187 08/06/2020 SGOT 14 08/06/2020 SGPT 26 08/06/2020 * Telephone Encounter - Michael Almonte - 10/21/2020 11:02 AM EDT Patient would like script to be: E-PRESCRIBED/FAXED TO PHARMACY WHEN WAS THE PATIENT'S LAST APPOINTMENT IN ADULT MEDICINE? 10/05/2020 WHEN WAS THE LAST TIME THE PATIENT SAW THEIR PCP? 07/07/2020 Does patient have an upcoming appointment? Yes 11/05/2020 (THE MEDICATION REQUESTED IS ON THE MED LIST ABOVE) All of the medications requested were on the CURRENT MEDS list Did you check the Pharmacy information above?: YES Patient wants: 90 -day supply Is this a mail order prescription request ? NO If the refill is from a FAXED refill request what is the RX # listed on the fax? N/A Patients current insurance carrier is: Payor: [facility] MCR / Plan: HMO $0 [facility] [id number] / Product Type: HMO [id number] documented in this encounter Plan of Treatment Not on file documented as of this encounter Visit Diagnoses Diagnosis CAD (coronary artery disease), [place] coronary artery Coronary atherosclerosis of [place] coronary artery documented in this encounter Care Teams Validation Architect Relationship Specialty Start Date End Date Wiley Thompson MD PCP - General Internal Medicine 06/04/14 01/20/22 Kathy Christopher MD [address] [place] [address] PCP - General Internal Medicine 01/21/22 Kameron Zuñiga MD Seam Stay Stitcher Cardiovascular Disease 08/04/21 Katya Lopez NP Cardiology 08/04/21 01/30/24 Be Pacheco NP [address] [place] [address] 12786 Nurse Practitioner Cardiology 10/17/22 01/30/24 Maycol Infante MD [address] [place] [address] 92347 Specialist Pulmonology 10/19/22 Sebastian Martinez MD [address] [place] [address] 79201 Specialist Ophthalmology 03/21/23 Eve Juan MD [address] [place] [address] [place] [address] Specialist UROGYNECOLOGY 03/21/23 Elisa Romero NP [address] [place] [address] [place] [address] Cardiology 01/31/24 Marcus Murcia DO [address] [place] [address] [place] [address] Specialist Physiatry 03/26/24 documented as of this encounter
--- OUTSIDE RECORDS SUMMARY | 2024-09-17 16:08 | XMS_ITS | Encounter Summary ---
Author Organization [facility] Address [address] [place] [address] Care Team Providers Care Cutter Wet Machine Name Role Phone Bri Santacruz MD Primary Care Provider Unavailable Wiley Thompson MD Primary Care Provider Kameron Cornejo MD Unavailable Katya Lopez NP Unavailable Unavailab Kathy Haley MD Primary Care Prov ider Be Pacheco NP Unavailable [phone] Maycol Infante MD Unavailable Unavailable Sebastian Martinez MD Unavailable UnavailEve Blackmon MD Unavailable Elisa Romero NP Unavailable [phone] Marcus Murcia DO Unavailable Unavailable Encounter Details Date Type Department Care Team Description 10/16/2013 Tapering Machine Operator Report Medical Records [address] [place] [address] Pallavi Henry MD Social History Tobacco Use [...] on filedocumented in this encounter Care Teams Cutter Wet Machine Relationship Specialty Start Date End Date Bri Santacruz MD PCP - General Internal Medicine 04/23/12 06/03/14 Wiley Thompson MD PCP - General Internal Medicine 06/04/14 01/20/22 Kathy Christopher MD [address] [place] [address] 31512 PCP - General Internal Medicine 01/21/22 Kameron Zuñiga MD Sales And In Home Delivery Specialist Cardiovascular Disease 08/04/21 Katya Lopez, IRMA Cardiology 08/04/21 01/30/24 Be Pacheco NP [address] [place] [address] 96567 Nurse Practitioner Cardiology 10/17/22 01/30/24 Maycol Infante MD [address] [place] [address] 89167 Specialist Pulmonology 10/19/22 Sebastian Martinez MD [address] [place] [address] 00671 Specialist Ophthalmology 03/21/23 Eve Juan MD [address] [place] [address] [place] [address] Specialist UROGYNECOLOGY 03/21/23 Elisa Romero NP [address] [place] [address] [place] [address] Cardiology 01/31/24 Marcus Murcia DO [address] [place] [address] [place] [address] Specialist Physiatry 03/26/24 documented as of this encounter
--- OUTSIDE RECORDS SUMMARY | 2024-09-17 16:08 | XMS_ITS | Encounter Summary ---
Author Organization [facility] Address [address] [place] [address] Care Team Providers Care Shipping Helper Name Role Phone Wiley Thompson MD Primary Care Provider Kameron Cornejo MD Unavailable Katya Lopez NP Unavailable Unavailab Kathy Haley MD Primary Care Prov ider Be Pacheco NP Unavailable [phone] Maycol Infante MD Unavailable Unavailable Sebastian Martinez MD Unavailable UnavailEve Blackmon MD Unavailable Elisa Romero NP Unavailable [phone] Marcus Murcia DO Unavailable Unavailable Reason for Visit * Reason Comments E-prescribe Rx Request Encounter Details Date Type Department Care Team Description 04/14/2018 Refill Adult Medicine [address] [id number] Lizzie Pisano PA-C [address] [place] [address] [phone] E-prescribe Rx Request Social History Tobacco Use [...] encounter Miscellaneous Notes * Telephone Encounter - Wiley Thompson - 04/17/2018 12:11 PM EDT Pt due for labs. Pleasea sk her to have them done. Will need to check lipid and liver functions. * Telephone Encounter - Nellie Short M.A. - 04/17/2018 11:48 AM EDT Lab Results Component Value Date ALB 4.6 02/07/2017 SGOT 19 02/07/2017 SGPT 18 02/07/2017 TBILI 0.5 02/07/2017 DBILI 0.1 12/22/2014 IBILI 0.4 12/22/2014 ALKPHOS 102 02/07/2017 TP 7.0 02/07/2017 * Telephone Encounter - Tiffany Whitlock - 04/16/2018 8:28 AM EDT Patient would like script to be: E-PRESCRIBED/FAXED TO PHARMACY WHEN WAS THE PATIENT'S LAST APPOINTMENT IN ADULT MEDICINE? 04/12/18 WHEN WAS THE LAST TIME THE PATIENT SAW THEIR PCP? 05/31/17 Does patient have an upcoming appointment? Yes 07/24/18 (THE MEDICATION REQUESTED IS ON THE MED LIST ABOVE) All of the medications requested were on the CURRENT MEDS list Did you check the Pharmacy information above?: YES Patient wants: 90 Is this a mail order prescription request ? NO If the refill is from a FAXED refill request what is the RX # listed on the fax? N/A Patients current insurance carrier is: Payor: [facility] MCR / [facility] [id number] / Product Type: HMO [id number] documented in this encounter Plan of Treatment Scheduled Orders Name Type Priority Associated Diagnoses Orde r Schedule COMPREHENSIVE METABOLIC PANEL Lab Routine CAD (coronary artery disease), [place] coronary artery Expected: 04/17/2018, Expires: 04/17/2019 LIPID PROFILE Lab Routine CAD (coronary artery disease), [place] coronary artery Expected: 04/17/2018, Expires: 04/17/2019 documented as of this encounter Visit Diagnoses Diagnosis CAD (coronary artery disease), [place] coronary artery Coronary atherosclerosis of [place] coronary artery documented in this encounter Care Teams Shipping Helper Relationship Specialty Start Date End Date Wiley Thompson MD PCP - General Internal Medicine 06/04/14 01/20/22 Trina Rizo, Kathy Fried MD [address] [place] [address] 35084 PCP - General Internal Medicine 01/21/22 Kameron Zuñiga MD Card Lacer Cardiovascular Disease 08/04/21 Katya Lopez NP Cardiology 08/04/21 01/30/24 Be Pacheco NP [address] [place] [address] 85748 Nurse Practitioner Cardiology 10/17/22 01/30/24 Maycol Infante MD [address] [place] [address] 30472 Specialist Pulmonology 10/19/22 Sebastian Martinez MD [address] [place], [place] [phone] Specialist Ophthalmology 03/21/23 Eve Juan MD [address] [place] [address] [place] [address] Specialist UROGYNECOLOGY 03/21/23 Elisa Romero NP [address] [place] [address] [place] [address] Cardiology 01/31/24 Marcus Murcia DO [address] [place] [address] [place] [address] Specialist Physiatry 03/26/24 documented as of this encounter
--- OUTSIDE RECORDS SUMMARY | 2024-09-17 16:08 | XMS_ITS | Encounter Summary ---
Author Organization [facility] Address [address] [place] [address] Care Team Providers Care Locker Room Manager Name Role Phone Wiley Thompson MD Primary Care Provider Kameron Cornejo MD Unavailable Katya Lopez NP Unavailable Unavailab Kathy Haley MD Primary Care Prov ider Be Pacheco NP Unavailable [phone] Maycol Infante MD Unavailable Unavailable Sebastian Martinez MD Unavailable UnavailEve Blackmon MD Unavailable Elisa Romero NP Unavailable [phone] Marcus Murcia DO Unavailable Unavailable Encounter Details Date Type Department Care Team Description 05/30/2018 Orders Only Medical Records [address] [place] [address] Talia Coleman PA-C [address] [place], [place] [phone] Social History Tobacco Use Types Packs/Day Years [...] Name Priority Date/Time Associated Diagnosis Comments OUTSIDE HOLTER MONITOR Routine 05/22/2018 documented in this encounter Results * OUTSIDE HOLTER MONITOR (05/22/2018) Talia Coleman PA-C CARDIOLOGY documented in this encounter Visit Diagnoses Not on filedocumented in this encounter Care Teams Locker Room Manager Relationship Specialty Start Date End Date Wiley Thompson MD PCP - General Internal Medicine 06/04/14 01/20/22 Kathy Christopher MD [address] [place], [place] [phone] PCP - General Internal Medicine 01/21/22 Kameron Zuñiga MD Newspaper Press Operator Apprentice Cardiovascular Disease 08/04/21 Katya Lopez NP Cardiology 08/04/21 01/30/24 Be Pacheco NP [address] [place] [address] 22664 Nurse Practitioner Cardiology 10/17/22 01/30/24 Maycol Infante MD [address] [place] [address] 6[address] Specialist Pulmonology 10/19/22 Sebastian Martinez MD [address] [place] [address] Specialist Ophthalmology 03/21/23 Eve Juan MD [address] [place] [address] [place] [address] Specialist UROGYNECOLOGY 03/21/23 Elisa Romero NP [address] [place] [address] [place] [address] Cardiology 01/31/24 Marcus Murcia DO [address] [place] [address] [place] [address] Specialist Physiatry 03/26/24 documented as of this encounter
--- OUTSIDE RECORDS SUMMARY | 2024-09-17 16:08 | XMS_ITS | Encounter Summary ---
Author Organization [facility] Address [address] [place] [address] Care Team Providers Care Mineral Resources Inspector Name Role Phone Kameron Zuñiga MD Unavailable Katya Lopez NP Unavailable Unavailab le Kathy Christopher MD Primary Care Prov ider Be Pacheco NP Unavailable [phone] Maycol Infante MD Unavailable Unavailable Sebastian Martinez MD Unavailable UnavailEve Blackmon MD Unavailable Elisa Romero NP Unavailable [phone] Marcus Murcia DO Unavailable Unavailable Encounter Details Date Type Department Care Team Description 09/16/2022 Cambering Machine Operator Report Medical Records [address] [place] [address] Maycol Infante MD Social History Tobacco Use [...] on filedocumented in this encounter Care Teams Mineral Resources Inspector Relationship Specialty Start Date End Date Kathy Christopher MD [address] [place] [address] [phone] PCP - General Internal Medicine 01/21/22 Kameron Zuñiga MD Medical Policy Specialist Cardiovascular Disease 08/04/21 Katya Lopez NP Cardiology 08/04/21 01/30/24 Be Pacheco NP [address] [place] [address] 79602 Nurse Practitioner Cardiology 10/17/22 01/30/24 Maycol Infante MD [address] [place] [address] 20825 Specialist Pulmonology 10/19/22 Sebastian Martinez MD [address] [place] [address] Specialist Ophthalmology 03/21/23 Eve Juan MD [address] [place] [address] [place] [address] Specialist UROGYNECOLOGY 03/21/23 Elisa Romero NP [address] [place] [address] [place] [address] Cardiology 01/31/24 Marcus Murcia DO [address] [place] [address] [place] [address] Specialist Physiatry 03/26/24 documented as of this encounter
--- OUTSIDE RECORDS SUMMARY | 2024-09-17 16:08 | XMS_ITS | Encounter Summary ---
Author Organization [facility] Address [address] [place] [address] Care Team Providers Care Medical Receptionist Medical Assistant Name Role Phone Wiley Thompson MD Primary Care Provider Kameron Cornejo MD Unavailable Katya Lopez NP Unavailable Unavailab Kathy Christopher MD Primary Care Prov ider Be Pacheco NP Unavailable [phone] Maycol Infante MD Unavailable Unavailable Sebastian Martinez MD Unavailable UnavailEve Blackmon MD Unavailable Elisa Romero NP Unavailable [phone] Marcus Murcia DO Unavailable Unavailable Encounter Details Date Type Department Care Team Description 04/10/2015 Asbestos Siding Mechanic Report Medical Records [address] [place] [address] Seema Canas MD Social History Tobacco Use Types Packs/Day [...] on filedocumented in this encounter Care Teams Medical Receptionist Medical Assistant Relationship Specialty Start Date End Date Wiley Thompson MD PCP - General Internal Medicine 06/04/14 01/20/22 Kathy Christopher MD [address] [place] [address] PCP - General Internal Medicine 01/21/22 Kameron Zuñiga MD Medical Surgical Tech Cardiovascular Disease 08/04/21 Katya Lopez, IRMA Cardiology 08/04/21 01/30/24 Be Pacheco NP [address] [place] [address] Nurse Practitioner Cardiology 10/17/22 01/30/24 Maycol Infante MD [address] [place] [address] Specialist Pulmonology 10/19/22 Sebastian Martinez MD [address] [place] [address] Specialist Ophthalmology 03/21/23 Eve Juan MD [address] [place] [address] [place] [address] Specialist UROGYNECOLOGY 03/21/23 Elisa Romero NP [address] [place] [address] [place] [address] Cardiology 01/31/24 Marcus Murcia DO [address] [place] [address] [place] [address] Specialist Physiatry 03/26/24 documented as of this encounter
--- OUTSIDE RECORDS SUMMARY | 2024-09-17 16:08 | XMS_ITS | Encounter Summary ---
Author Organization [facility] Address [address] [place] [address] Care Team Providers Care Traffic Inspector Name Role Phone Wiley Thompson MD Primary Care Provider Kameron Cornejo MD Unavailable Katya Lopez NP Unavailable Unavailab Kathy Haley MD Primary Care Prov ider Be Pacheco NP Unavailable [phone] Maycol Infante MD Unavailable Unavailable Sebastian Martinez MD Unavailable UnavailEve Blackmon MD Unavailable Elisa Romero NP Unavailable [phone] Marcus Murcia DO Unavailable Unavailable Reason for Visit * Reason Comments E-prescribe Rx Request Encounter Details Date Type Department Care Team Description 08/15/2017 Refill Adult Medicine [address] [address] Wiley Thompson MD E-prescribe Rx Request Social [...] encounter Miscellaneous Notes * Telephone Encounter - Tiffany Kamlesh - 08/15/2017 1:54 PM EST Patient would like script to be: E-PRESCRIBED/FAXED TO PHARMACY 07/25/17 WHEN WAS THE LAST TIME THE PATIENT SAW THEIR PCP? 05/31/17 Does patient have an upcoming appointment? Yes 09/29/17 (THE MEDICATION REQUESTED IS ON THE MED LIST ABOVE) All of the medications requested were on the CURRENT MEDS list Did you check the Pharmacy information above?: YES Patient wants: 90 -day supply Is this a mail order prescription request ? NO Patients current insurance carrier is: Payor: [facility] MCR / [facility] [facility] [id number] / Product Type: RevealO [id number] documented in this encounter Plan of Treatment Not on file documented as of this encounter Visit Diagnoses Not on filedocumented in this encounter Care Teams Traffic Inspector Relationship Specialty Start Date End Date Wiley Thompson MD PCP - General Internal Medicine 06/04/14 01/20/22 Kathy Christopher MD [address] [place] [address] PCP - General Internal Medicine 01/21/22 Kameron Zuñiga MD Dixonac Operator Cardiovascular Disease 08/04/21 Katya Lopez NP Cardiology 08/04/21 01/30/24 Be Pacheco NP [address] [place] [address] Nurse Practitioner Cardiology 10/17/22 01/30/24 Maycol Infante MD [address] [place] [address] Specialist Pulmonology 10/19/22 Sebastian Martinez MD [address] [place] [address] Specialist Ophthalmology 03/21/23 Eve Juan MD [address] [place] [address] [place] [address] Specialist UROGYNECOLOGY 03/21/23 Elisa Romero NP [address] [place] [address] [place] [address] Cardiology 01/31/24 Marcus Murcia DO [address] [place] [address] [place] [address] Specialist Physiatry 03/26/24 documented as of this encounter
--- OUTSIDE RECORDS SUMMARY | 2024-09-17 16:08 | XMS_ITS | Encounter Summary ---
Author Organization [facility] Address [address] [place] [address] Care Team Providers Care Chemic Mangler Name Role Phone Wiley Thompson MD Primary Care Provider Kameron Cornejo MD Unavailable Katya Lopez NP Unavailable Unavailab Kathy Haley MD Primary Care Prov ider Be Pacheco NP Unavailable [phone] Maycol Infante MD Unavailable Unavailable Sebastian Martinez MD Unavailable UnavailEve Blackmon MD Unavailable Elisa Romero NP Unavailable [phone] Marcus Murcia DO Unavailable Unavailable Reason for Visit * Reason Onset Date Comments refill request 09/16/2019 Encounter Details Date Type Department Care Team Description 09/16/2019 Refill Adult Medicine [address] [address] Wiley Thompson MD refill request Social History Tobacco Use Types Packs/Day Years [...] encounter Miscellaneous Notes * Telephone Encounter - Korey Garrett M.A. - 09/16/2019 4:55 PM EDT Faxed to pharmacy * Telephone Encounter - Oumou Mitchell - 09/16/2019 11:33 AM EDT Patient would like script to be: E-PRESCRIBED/FAXED TO PHARMACY WHEN WAS THE PATIENT'S LAST APPOINTMENT IN ADULT MEDICINE? 08/16/2019 WHEN WAS THE LAST TIME THE PATIENT SAW THEIR PCP? 06/27/2019 Does patient have an upcoming appointment? Yes 09/27/2019 (THE MEDICATION REQUESTED IS ON THE MED [...] N/A Patients current insurance carrier is: Payor: [facility] MCR / Plan: [facility] [place] [id number] / Product Type: HMO [id number] documented in this encounter Plan of Treatment Not on file documented as of this encounter Visit Diagnoses Not on filedocumented in this encounter Care Teams Chemic Mangler Relationship Specialty Start Date End Date Wiley Thompson MD PCP - General Internal Medicine 06/04/14 01/20/22 Kathy Christopher MD [address] [place] [address] PCP - General Internal Medicine 01/21/22 Kameron Zuñiga MD Soft Drink Powder Mixer Cardiovascular Disease 08/04/21 Katya Lopez, IRMA Cardiology 08/04/21 01/30/24 Be Pacheco NP [address] [place] [address] Nurse Practitioner Cardiology 10/17/22 01/30/24 Maycol Infante MD [address] [place] [address] Specialist Pulmonology 10/19/22 Sebastian Martinez MD [address] [place] [address] Specialist Ophthalmology 03/21/23 Eve Juan MD [address] [place] [address] [place] [address] Specialist UROGYNECOLOGY 03/21/23 Elisa Romero NP [address] [place] [address] [place] [address] Cardiology 01/31/24 Marcus Murcia DO [address] [place] [address] [place] [address] Specialist Physiatry 03/26/24 documented as of this encounter
--- OUTSIDE RECORDS SUMMARY | 2024-09-17 16:08 | XMS_ITS | Encounter Summary ---
Author Organization [facility] Address [address] [place] [address] Care Team Providers Care Wood Polisher Name Role Phone Wiley Thompson MD Primary Care Provider Kameron Cornejo MD Unavailable Katya Lopez NP Unavailable Unavailab Kathy Haley MD Primary Care Prov ider Be Pacheco NP Unavailable Maycol Infante MD Unavailable Unavailable Sebastian Martinez MD Unavailable UnavailEve Blackmon MD Unavailable Elisa Romero NP Unavailable [phone] Marcus Murcia DO Unavailable Unavailable Reason for Referral * Radiology Services (Routine) - Closed Specialty Diagnoses / Procedures Referred By Contac t Referred To Contact Radiology Diagnoses Recurrent sinus infections Procedures CAT SCAN OF SINUSES NO CONTRAST Leilani Colindres APRN [address] [place] [address] [facility] [address] [place] [id number] Referral ID Status Reason Start Date Expiration Date V isits Requested Visits Authorized CCA APPROVED Closed 09/12/2017 11/11/2017 1 1 Reason for Visit * Reason Onset Date Comments Provider Call Back 09/12/2017 Encounter Details Date Type Department Care Team Description 09/12/2017 Telephone Adult Medicine [facility] [address] [place] [address] Leilani Colindres APRN Provider Call Back Social History Tobacco Use Types Packs/Day Years [...] Telephone Encounter - Nellie Short M.A. - 09/13/2017 2:40 PM EDT Patient is aware * Telephone Encounter - Leilani Colindres APRN - 09/12/2017 4:42 PM EDT Order placed, she will be contacted once approved * Telephone Encounter - Barbra Espinoza - 09/12/2017 12:27 PM EDT Caller requesting call back from provider: Is the caller the patient? YES If caller is not the patient, what is the callers name? N/A Callers relationship to patient? N/A If person calling is not the patient themselves, is there a verbal release in FYI or permanent comments for this person: Reason for call back: Patient is still not feeling better, looking for CT scan. Caller offered to speak with the nurse for assistance: YES Response: Patient offered to speak with nurse for assistance and patient agreed. Message forwarded to nurse. documented in this encounter Plan of Treatment Not on file documented as of this encounter Results * CAT SCAN OF SINUSES NO CONTRAST (10/23/2017 4:14 PM EDT) 10/23/2017 5:59 PM EDT Impressions [facility] - 10/23/2017 6:46 PM EDT IMPRESSION: 1. Small mucous retention cyst or inflammatory polyp at the anteroinferior aspect of the left maxillary sinus. Paranasal sinuses are otherwise clear. 2. Asymmetric soft tissue nodule along the lateral aspect of the left orbit. Contrast enhanced MRI Orbits is recommended for more complete evaluation. 3. 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 4. Intracranial atherosclerotic disease. 5. Additional findings, as detailed above. Narrative [facility] - 10/23/2017 6:[address] SINUS WITHOUT IV CONTRAST INDICATION: Recurrent sinusitis, failing treatment. COMPARISON: None available. TECHNIQUE: Contiguous axial CT images of the paranasal sinuses were obtained without IV contrast. Sagittal and coronal reformatted images were also submitted for review. Radiation dose:ctdi 33.83 mGy FINDINGS: A small mucous retention cyst or inflammatory polyp is visible at the anteroinferior aspect of the left maxillary sinus. No significant mucosal thickening or air-fluid levels identified throughout the paranasal sinuses. The ostiomeatal complexes and sphenoethmoidal recesses are patent bilaterally. There is chronic buckling of the right middle orbital wall, with fat extending into the region of the right ethmoid sinuses (axial image 64/99). Mild right convex bowing of the nasal septum. There is no obvious destruction of the bony margins of the paranasal sinuses. ??No acute osseous abnormality. There is hyperostosis frontalis interna. The ethmoid skull base is intact with slight asymmetry of the cribriform plate. The olfactory fossae measure 6-7 mm in-depth, both meeting criteria for Keros II classification. ??The bony canals of the optic nerves and internal carotid artery cavernous segments are intact bilaterally. No acute abnormality is detected throughout the intracranial parenchyma. Punctate calcifications within both basal ganglia regions compatible with mineral deposition. Vascular calcifications are noted within the cavernous segments of both internal carotid arteries. Asymmetric soft tissue nodule measures 0.9 x 0.5 cm along the lateral aspect of the left orbit (axial image 66/99). Orbital structures appear otherwise symmetric. Procedure Note Meghann Clifton DO - 10/23/2017 CT SINUS WITHOUT IV CONTRAST INDICATION: Recurrent sinusitis, failing treatment. COMPARISON: None available. TECHNIQUE: Contiguous axial CT images of the paranasal sinuses wereobtained without IV contrast. Sagittal and coronal reformatted images were also submitted forreview. Radiation dose:ctdi 33.83 mGy FINDINGS: A small mucous retention cyst or inflammatory polyp is visible at theanteroinferior aspect of the left maxillary sinus. No significant mucosal thickening or air-fluidlevels identified throughout the paranasal sinuses. The ostiomeatal complexes andsphenoethmoidal recesses are patent bilaterally. There is chronic buckling of the right middle orbitalwall, with fat extending into the region of the right ethmoid sinuses (axial image64/99). Mild right convex bowing of the nasal septum. There is no obvious destruction of the bonymargins of the paranasal sinuses. No acute osseous abnormality. There is hyperostosis frontalis interna. The ethmoid skull base is intactwith slight asymmetry of the cribriform plate. The olfactory fossae measure 6-7 mm in-depth,both meeting criteria for Keros II classification. The bony canals of the optic nerves andinternal carotid artery cavernous segments are intact bilaterally. No acute abnormality is detected throughout the intracranial parenchyma.Punctate calcifications within both basal ganglia regions compatible with mineraldeposition. Vascular calcifications are noted within the cavernous segments of both internalcarotid arteries. Asymmetric soft tissue nodule measures 0.9 x 0.5 cm along the lateralaspect of the left orbit (axial image 66/99). Orbital structures appear otherwise symmetric. IMPRESSION IMPRESSION: 1. Small mucous retention cyst or inflammatory polyp at the anteroinferioraspect of the left maxillary sinus. Paranasal sinuses are otherwise clear. 2. Asymmetric soft tissue nodule along the lateral aspect of the leftorbit. Contrast enhanced MRI Orbits is recommended for more complete evaluation. 3. Chronic buckling of the right middle orbital wall likely representssequela of remote trauma. 4. Intracranial atherosclerotic disease. 5. Additional findings, as detailed above. [facility] CT SCANS [facility] OTHER EXTERNAL documented in this encounter Visit Diagnoses Diagnosis Recurrent sinus infections- Primary Unspecified sinusitis (chronic) Recurrent sinus infections Unspecified sinusitis (chronic) documented in this encounter Care Teams Wood Polisher Relationship Specialty Start Date End Date Wiley Thompson MD PCP - General Internal Medicine 06/04/14 01/20/22 Kathy Christopher MD [address] [place] [address] PCP - General Internal Medicine 01/21/22 Kameron Zuñiga MD Product Development Worker Cardiovascular Disease 08/04/21 Katya Lopez NP Cardiology 08/04/21 01/30/24 Be Pacheco NP [address] [place] [address] Nurse Practitioner Cardiology 10/17/22 01/30/24 Maycol Infante MD [address] [place] [address] Specialist Pulmonology 10/19/22 Sebastian Martinez MD [address] [place], [place] [address] Specialist Ophthalmology 03/21/23 Eve Juan MD [address] [place] [address] [place] [address] Specialist UROGYNECOLOGY 03/21/23 Elisa Romero NP [address] [place] [address] [place] [address] Cardiology 01/31/24 Marcus Murcia DO [address] [place] [address] [place] [address] Specialist Physiatry 03/26/24 documented as of this encounter
--- OUTSIDE RECORDS SUMMARY | 2024-09-17 16:08 | XMS_ITS | Encounter Summary ---
Author Organization [facility] Address [address] [place] [address] Care Team Providers Care Shoe Lacer Name Role Phone Wiley Thompson MD Primary Care Provider Kameron Cornejo MD Unavailable Katya Lopez NP Unavailable Unavailab Kathy Haley MD Primary Care Prov ider Be Pacheco NP Unavailable [phone] Myacol Infante MD Unavailable Unavailable Sebastian Martinez MD Unavailable UnavailEve Blackmon MD Unavailable Elisa Romero NP Unavailable [phone] Marcus Murcia DO Unavailable Unavailable Encounter Details Date Type Department Care Team Description 12/19/2014 [facility] [address] [id number] Wiley Thompson MD Social History Tobacco Use [...] on filedocumented in this encounter Care Teams Shoe Lacer Relationship Specialty Start Date End Date Wiley Thompson MD PCP - General Internal Medicine 06/04/14 01/20/22 Kathy Christopher MD [address] [place] [address] PCP - General Internal Medicine 01/21/22 Kameron Zuñiga MD Vamp Maker Cardiovascular Disease 08/04/21 Katya Lopez NP Cardiology 08/04/21 01/30/24 Be Pacheco NP [address] [place] [address] Nurse Practitioner Cardiology 10/17/22 01/30/24 Maycol Infante MD [address] [place] [address] Specialist Pulmonology 10/19/22 Sebastian Martinez MD [address] [place] [address] Specialist Ophthalmology 03/21/23 Eve Juan MD [address] [place] [address] [place] [address] Specialist UROGYNECOLOGY 03/21/23 Elisa Romero NP [address] [place] [address] [place] [address] Cardiology 01/31/24 Marcus Murcia DO [address] [place] [address] [place] [address] Specialist Physiatry 03/26/24 documented as of this encounter
--- OUTSIDE RECORDS SUMMARY | 2024-09-17 16:08 | XMS_ITS | Encounter Summary ---
Author Organization [facility] Address [address] [place] [address] Care Team Providers Care Patient Financial Specialist Name Role Phone Kameron Zuñiga MD Unavailable Kathy Christopher MD Primary Care Prov ider Maycol Infante MD Unavailable Unavailable Sebastian Martinez MD Unavailable UnavailEve Blackmon MD Unavailable Elisa Romero NP Unavailable [phone] Marcus Murcia DO Unavailable Unavailable Encounter Details Date Type Department Care Team Description 03/06/2024 Microstrategy Architect Report Medical Records [address] [place] [address] Pierre Oliva PA-C Social History Tobacco Use [...] on filedocumented in this encounter Care Teams Patient Financial Specialist Relationship Specialty Start Date End Date Kathy Christopher MD [address] [place] [address] PCP - General Internal Medicine 01/21/22 Kameron Zuñiga MD Telesales Supervisor Cardiovascular Disease 08/04/21 Maycol Infante MD [address] [place] [address] Specialist Pulmonology 10/19/22 Sebastian Martinez MD [address] [place] [address] Specialist Ophthalmology 03/21/23 Eve Juan MD [address] [place] [address] [place] [address] Specialist UROGYNECOLOGY 03/21/23 Elisa Romero NP [address] [place] [address] [place] [address] Cardiology 01/31/24 Marcus Murcia DO [address] [place] [address] [place] [address] Specialist Physiatry 03/26/24 documented as of this encounter
--- OUTSIDE RECORDS SUMMARY | 2024-09-17 16:08 | XMS_ITS | Encounter Summary ---
Author Organization [facility] Address [address] [place] [address] Care Team Providers Care Superintendent Oil Field Drilling Name Role Phone Kameron Zuñiga MD Unavailable Kathy Christopher MD Primary Care Prov ider Maycol Infante MD Unavailable Unavailable Sebastian Martinez MD Unavailable UnavailEve Blackmon MD Unavailable Elisa Romero NP Unavailable [phone] Marcus Murcia DO Unavailable Unavailable Encounter Details Date Type Department Care Team Description 04/02/2024 [facility] Medical Records [address] [place] [address] Abstract, Provider Social History Tobacco Use Types [...] on filedocumented in this encounter Care Teams Superintendent Oil Field Drilling Relationship Specialty Start Date End Date Kathy Christopher MD [address] [place] [address] PCP - General Internal Medicine 01/21/22 Kameron Zuñiga MD Molded Parts Inspector Cardiovascular Disease 08/04/21 Maycol Infante MD [address] [place] [address] Specialist Pulmonology 10/19/22 Sebastian Martinez MD [address] [place], [place] [address] Specialist Ophthalmology 03/21/23 Eve Juan MD [address] [place] [address] [place] [address] Specialist UROGYNECOLOGY 03/21/23 Elisa Romero NP [address] [place] [address] [place] [address] Cardiology 01/31/24 Marcus Murcia DO [address] [place] [address] [place] [address] Specialist Physiatry 03/26/24 documented as of this encounter
--- OUTSIDE RECORDS SUMMARY | 2024-09-17 16:08 | XMS_ITS | Encounter Summary ---
Author Organization [facility] Address [address] [place] [address] Care Team Providers Care Proj Mgr Name Role Phone Bri Santacruz MD Primary Care Provider Unavailable Wiley Thompson MD Primary Care Provider Kameron Cornejo MD Unavailable Katya Lopez NP Unavailable Unavailab Kathy Haley MD Primary Care Prov ider Be Pachceo NP Unavailable [phone] Maycol Infante MD Unavailable Unavailable Sebastian Martinez MD Unavailable UnavailEve Blackmon MD Unavailable Elisa Romero NP Unavailable [phone] Marcus Murcia DO Unavailable Unavailable Encounter Details Date Type Department Care Team Description 10/01/2013 Human Resources Recruiter Report Medical Records [address] [place] [address] Abstract, Provider Social History Tobacco Use Types [...] on filedocumented in this encounter Care Teams Proj Mgr Relationship Specialty Start Date End Date Bri Santacruz MD PCP - General Internal Medicine 04/23/12 06/03/14 Wiley Thompson MD PCP - General Internal Medicine 06/04/14 01/20/22 Kathy Christopher MD [address] [place] [address] PCP - General Internal Medicine 01/21/22 Kameron Zuñiga MD Policewoman Cardiovascular Disease 08/04/21 Katya Lopez NP Cardiology 08/04/21 01/30/24 Be Pacheco NP [address] [place] [address] Nurse Practitioner Cardiology 10/17/22 01/30/24 Maycol Infante MD [address] [place] [address] Specialist Pulmonology 10/19/22 Sebastian Martinez MD [address] [place] [address] Specialist Ophthalmology 03/21/23 Eve Juan MD [address] [place] [address] [place] [address] Specialist UROGYNECOLOGY 03/21/23 Elisa Romero NP [address] [place] [address] [place] [address] Cardiology 01/31/24 Marcus Murcia DO [address] [place] [address] [place] [address] Specialist Physiatry 03/26/24 documented as of this encounter
--- OUTSIDE RECORDS SUMMARY | 2024-09-17 16:08 | XMS_ITS | Encounter Summary ---
Author Organization [facility] Address [address] [place] [address] Care Team Providers Care Casing Operator Name Role Phone Kameron Zuñiga MD Unavailable Katya Lopez NP Unavailable Unavailab Kathy Haley MD Primary Care Prov ider Be Pacheco NP Unavailable [phone] Maycol Infante MD Unavailable Unavailable Sebastian Martinez MD Unavailable UnavailEve Blackmon MD Unavailable Elisa Romero NP Unavailable [phone] Marcus Murcia DO Unavailable Unavailable Reason for Visit * Reason Onset Date Comments Hematuria 04/28/2022 Encounter Details Date Type Department Care Team Description 04/28/2022 Telephone Urogy[address] [address] Eve Juan MD [address] [place] [address] Urogynecology [place], [place] Hematuria Social History Tobacco Use Types Packs/Day Years [...] Recorded In the last 10 days, have hussein acputo been in contact with someone who was confirmed or suspected to have Coronavirus/COVID-19? No / Unsure 04/25/2022 10:45 AM EST documented as of this encounter Miscellaneous Notes * Telephone Encounter - Chela Daniel R.N. - 04/28/2022 3:33 PM EST Returned patient called. Patient is reporting a lot of specks of blood in the catheter (described as black) and pelvic pain,which started today. She stated she is taking Bactrim in the morning 3 times a day and she cannot keep the catheter in any longer. Consulted with Dr. Juan, she stated patient was taking Macrobid, and confirmed elevated residual inthe office. We provided reassurance and counseling regarding plan. Continue sipping water through out the day. Catheter should not be pull tight or kinked. Provided education regarding med use including short duration AZO use. Over the counter Pyridium or AZO and Bactrim Twice a day. * Telephone Encounter - Lizzie Zavaleta - 04/28/2022 3:12 PM EST Patient saw Dr Juan on 04/26/22, is wearing a bag for urine. Reports that today she started seeing some blood in the tube and the bag, and she is worried. Please advise. documented in this encounter Plan of Treatment Not on file documented as of this encounter Visit Diagnoses Not on filedocumented in this encounter Care Teams Casing Operator Relationship Specialty Start Date End Date Kathy Christopher MD [address] [place] [address] PCP - General Internal Medicine 01/21/22 Kameron Zuñiga MD Quahogger Cardiovascular Disease 08/04/21 Katya Lopez NP Cardiology 08/04/21 01/30/24 Be Pacheco NP [address] [place] [address] Nurse Practitioner Cardiology 10/17/22 01/30/24 Maycol Infante MD [address] [place], [place] [phone] Specialist Pulmonology 10/19/22 Sebastian Martinez MD [address] [place], [place] [phone] Specialist Ophthalmology 03/21/23 Eve Juan MD [address] [place] [address] [place] [address] Specialist UROGYNECOLOGY 03/21/23 Elisa Romero, IRMA [address] [place] [address] [place] [address] Cardiology 01/31/24 Marcus Murcia DO [address] [place] [address] [place] [address] Specialist Physiatry 03/26/24 documented as of this encounter
--- OUTSIDE RECORDS SUMMARY | 2024-09-17 16:08 | XMS_ITS | Encounter Summary ---
Author Organization [facility] Address [address] [place] [address] Care Team Providers Care Atg Java Developer Name Role Phone Wiley Thompson MD Primary Care Provider Kameron Cornejo MD Unavailable Katya Lopez NP Unavailable Unavailab Kathy Haley MD Primary Care Prov ider Be Pacheco NP Unavailable [phone] Maycol Infante MD Unavailable Unavailable Sebastian Martinez MD Unavailable UnavailEve Blackmon MD Unavailable Elisa Romero NP Unavailable [phone] Marcus Murcia DO Unavailable Unavailable Reason for Visit * Reason Onset Date Comments refill request 08/01/2018 Encounter Details Date Type Department Care Team Description 08/01/2018 Refill Adult Medicine [address] [address] Wiley Thompson MD refill request Social History [...] Telephone Encounter - Nellie Short M.A. - 08/01/2018 2:53 PM EST Last fill 05/28 * Telephone Encounter - Tiffanyray Whitlock - 08/01/2018 1:30 PM EST Patient would like script to be: E-PRESCRIBED/FAXED TO PHARMACY WHEN WAS THE PATIENT'S LAST APPOINTMENT IN ADULT MEDICINE? 08/01/18 WHEN WAS THE LAST TIME THE PATIENT SAW THEIR PCP? 12/28/17 Does patient have an upcoming appointment? Yes 11/19/18 (THE MEDICATION REQUESTED IS ON THE MED [...] N/A Patients current insurance carrier is: Payor: [facility] MCR / Plan: O $0 [facility] [id number] / Product Type: HMO [id number] documented in this encounter Plan of Treatment Not on file documented as of this encounter Visit Diagnoses Not on filedocumented in this encounter Care Teams Atg Java Developer Relationship Specialty Start Date End Date Wiley Thompson MD PCP - General Internal Medicine 06/04/14 01/20/22 Kathy Christopher MD [address] [place] [address] PCP - General Internal Medicine 01/21/22 Kameron Zuñiga MD Tip Bander Cardiovascular Disease 08/04/21 Katya Lopez NP Cardiology 08/04/21 01/30/24 Be Pacheco NP [address] [place] [address] Nurse Practitioner Cardiology 10/17/22 01/30/24 Maycol Infante MD [address] [place] [address] Specialist Pulmonology 10/19/22 Sebastian Martinez MD [address] [place], [place] [phone] Specialist Ophthalmology 03/21/23 Eve Juan MD [address] [place] [address] [place] [address] Specialist UROGYNECOLOGY 03/21/23 Elisa Romero NP [address] [place] [address] [place] [address] Cardiology 01/31/24 Marcus Murcia DO [address] [place] [address] [place] [address] Specialist Physiatry 03/26/24 documented as of this encounter
--- OUTSIDE RECORDS SUMMARY | 2024-09-17 16:08 | XMS_ITS | Encounter Summary ---
Author Organization [facility] Address [address] [place] [address] Care Team Providers Care Dog Food Shredder Operator Name Role Phone Wiley Thompson MD Primary Care Provider Kameron Cornejo MD Unavailable Katya Lopez NP Unavailable Unavailab Kathy Haley MD Primary Care Prov ider Be Pacheco NP Unavailable [phone] Maycol Infante MD Unavailable Unavailable Sebastian Martinez MD Unavailable UnavailEve Blackmon MD Unavailable Elisa Romero NP Unavailable [phone] Marcus Murcia DO Unavailable Unavailable Reason for Visit * Reason Comments E-prescribe Rx Request Encounter Details Date Type Department Care Team Description 07/24/2017 Refill Adult Medicine [address] [address] Wiley Thompson MD E-prescribe Rx Request Social [...] Telephone Encounter - Nellie Short M.A. - 07/25/2017 10:05 AM EST Faxed to pharmacy * Telephone Encounter - Jennifer Majano - 07/24/2017 5:33 PM EST Patient would like script to be: E-PRESCRIBED/FAXED TO PHARMACY WHEN WAS THE PATIENT'S LAST APPOINTMENT IN ADULT MEDICINE? 07/05/17/ WHEN WAS THE LAST TIME THE PATIENT [...] NO Patients current insurance carrier is: Payor: [facility] MCR / Plan: [facility] $0 [facility] [id number] / Product Type: HMO [id number] documented in this encounter Plan of Treatment Not on file documented as of this encounter Visit Diagnoses Not on filedocumented in this encounter Care Teams Dog Food Shredder Operator Relationship Specialty Start Date End Date Wiley Thompson MD PCP - General Internal Medicine 06/04/14 01/20/22 Trina Rizo, Kathy Fried MD [address] [place] [address] PCP - General Internal Medicine 01/21/22 Kameron Zuñiga MD Delinquent Tax Collector Cardiovascular Disease 08/04/21 Katya Lopez NP Cardiology 08/04/21 01/30/24 Be Pacheco NP [address] [place] [address] Nurse Practitioner Cardiology 10/17/22 01/30/24 Maycol Infante MD [address] [place] [address] Specialist Pulmonology 10/19/22 Sebastian Martinez MD [address] [place], [place] [phone] Specialist Ophthalmology 03/21/23 Eve Juan MD [address] [place] [address] [place] [address] Specialist UROGYNECOLOGY 03/21/23 Elisa Romero NP [address] [place] [address] [place] [address] Cardiology 01/31/24 Marcus Murcia DO [address] [place] [address] [place] [address] Specialist Physiatry 03/26/24 documented as of this encounter
--- OUTSIDE RECORDS SUMMARY | 2024-09-17 16:08 | XMS_ITS | Encounter Summary ---
Author Organization [facility] Address [address] [place] [address] Care Team Providers Care Licensed Customs Broker Name Role Phone Wiley Thompson MD Primary Care Provider Kameron Cornejo MD Unavailable Katya Lopez NP Unavailable Unavailab Kathy Haley MD Primary Care Prov ider Be Pacheco NP Unavailable [phone] Maycol Infante MD Unavailable Unavailable Sebastian Martinez MD Unavailable UnavailEve Blackmon MD Unavailable Elisa Romero NP Unavailable [phone] Marcus Murcia DO Unavailable Unavailable Encounter Details Date Type Department Care Team Description 06/18/2020 Orders Only Medical Records [address] [place] [address] Christophe Sharp MD [address] [place], [place] [phone] Social History Tobacco Use Types Packs/Day Years [...] have Coronavirus / COVID-19? No / Unsure 06/21/2020 10:43 AM EST documented as of this encounter Progress Notes * Matt Sharp MD - 06/20/2020 8:51 AM EST Dear Shea, The polyp that was removed during the colonoscopy was precancerous. By removing the polyp, we are able to mitigate any issues down the line. I do not recommend another colonoscopy in the future unless you have an issue. I would like to personally thank you for allowing us to take care of you. Please don't hesitate to call us for any questions or concerns. Regards, Brianna Sharp MD Board Certified Gastroenterology and Internal Medicine Transplant Hepatology [facility] documented in this encounter Plan of Treatment Not on file documented as of this encounter Procedures Procedure Name Priority Date/Time Associated Diagnosis Comments OUTSIDE PATHOLOGY Routine 06/16/2020 documented in this encounter Results * OUTSIDE PATHOLOGY (06/16/2020) Christophe Sharp MD OUTSIDE LAB documented in this encounter Visit Diagnoses Not on filedocumented in this encounter Care Teams Licensed Customs Broker Relationship Specialty Start Date End Date Wiley Thompson MD PCP - General Internal Medicine 06/04/14 01/20/22 Kathy Christopher MD [address] [place] [address] PCP - General Internal Medicine 01/21/22 Kameron Zuñiga MD Petroleum Products Sales Representative Cardiovascular Disease 08/04/21 Katya Lopez NP Cardiology 08/04/21 01/30/24 Be Pacheco NP [address] [place] [address] [phone] Nurse Practitioner Cardiology 10/17/22 01/30/24 Maycol Infante MD [address] [place], [place] [phone] Specialist Pulmonology 10/19/22 Sebastian Martinez MD [address] [place] [address] Specialist Ophthalmology 03/21/23 Eve Juan MD [address] [place] [address] [place] [address] Specialist UROGYNECOLOGY 03/21/23 Elisa Romero NP [address] [place] [address] [place] [address] Cardiology 01/31/24 Marcus Murcia DO [address] [place] [address] [place] [address] Specialist Physiatry 03/26/24 documented as of this encounter
--- OUTSIDE RECORDS SUMMARY | 2024-09-17 16:08 | XMS_ITS | Encounter Summary ---
Author Organization [facility] Address [address] [place] [address] Care Team Providers Care Derrick Boat Captain Name Role Phone Kameron Zuñiga MD Unavailable Katya Lopez NP Unavailable Unavailab le Kathy Christopher MD Primary Care Prov ider Be Pacheco NP Unavailable [phone] Maycol Infante MD Unavailable Unavailable Sebastian Martinez MD Unavailable UnavailEve Blackmon MD Unavailable Elisa Romero NP Unavailable [phone] Marcus Murcia DO Unavailable Unavailable Reason for Visit * Reason Onset Date Comments medication problems 03/18/2022 Encounter Details Date Type Department Care Team Description 03/18/2022 Telephone Adult Medicine [address] [phone] Kathy Christopher MD [address] [place] [address] [phone] medication problems Social History Tobacco Use Types Packs/Day Years [...] In the last 10 days, have hussein caputo been in contact with someone who was confirmed or suspected to have Coronavirus/COVID-19? No / Unsure 03/14/2022 2:50 PM EDT documented as of this encounter Miscellaneous Notes * Telephone Encounter - Nelly Manning M.A. - 05/13/2022 9:16 AM EST PT STATES IN NOTE FROM 03/29 THAT SHE DID NOT WANT THE PA DONE FOR THE DOXEPIN CDUGA * Telephone Encounter - Krystal Deng - 03/23/2022 1:31 PM EDT Lauren is calling from [employer]. She is the pharmacy planning manager. She is faxing over a form. If you have any questions her best call back number is [phone] option 1 REF#[id number]. * Telephone Encounter - Talia Fried M.A. 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 She has been on amitriptyline, trazodone, melatonin. * Telephone Encounter - Talia Fried M.A. - 03/21/2022 4:04 PM EDT No we did not have any prior auth on this pt for this medication. * Telephone Encounter - Mary Ann Baltazar - 03/21/2022 3:18 PM EDT The patient would like a call as to the status of this prior auth for this medication. * Telephone Encounter - Yeimi Huynh C.M.A - 03/21/2022 9:25 AM EDT Please review * Telephone Encounter - Kathy Rioz MD - 03/18/2022 2:52 PM EDT I don't know this patient and would not feel comfortable prescribing a different sleep medication without seing her. * Telephone Encounter - Tom Mcconnell C.M.A. - 03/18/2022 2:36 PM EDT Called and spoke to Durga the pharmacists who says this is non formulary insurance is blank did not give alternative. PA? Please review in ordering providers absence * Telephone Encounter - Lizzie Perez - 03/18/2022 2:24 PM EDT Who is calling? The patient Name of the medication Doxepin HCl 3 MG Tab What is the specific problem or interaction? Pharmacy is telling the patient that they can not fillthis script until they get a PA for the insurnace If the patient is having a problem with taking the med - how long has the problem been going on? N/A documented in this encounter Plan of Treatment Not on file documented as of this encounter Visit Diagnoses Not on filedocumented in this encounter Care Teams Derrick Boat Captain Relationship Specialty Start Date End Date Kathy Christopher MD [address] [place] [address] PCP - General Internal Medicine 01/21/22 Kameron Zuñiga MD Recoverer Cardiovascular Disease 08/04/21 Katya Lopez NP Cardiology 08/04/21 01/30/24 Be Pacheco NP [address] [place] [address] Nurse Practitioner Cardiology 10/17/22 01/30/24 Maycol Infante MD [address] [place] [address] Specialist Pulmonology 10/19/22 Sebastian Martinez MD [address] [place] [address] Specialist Ophthalmology 03/21/23 Eve Juan MD [address] [place] [address] [place] [address] Specialist UROGYNECOLOGY 03/21/23 Elisa Romero NP [address] [place] [address] [place] [address] Cardiology 01/31/24 Marcus Murcia DO [address] [place] [address] [place] [address] Specialist Physiatry 03/26/24 documented as of this encounter
--- OUTSIDE RECORDS SUMMARY | 2024-09-17 16:08 | XMS_ITS | Encounter Summary ---
Author Organization [facility] Address [address] [place] [address] Care Team Providers Care Field Human Resources Manager Name Role Phone Kameron Zuñiga MD Unavailable Katya Lopez NP Unavailable Unavailab Kathy Haley MD Primary Care Prov ider Be Pacheco NP Unavailable [phone] Maycol Infante MD Unavailable Unavailable Sebastian Martinez MD Unavailable UnavailEve Blackmon MD Unavailable Elisa Romero NP Unavailable [phone] Marcus Murcia DO Unavailable Unavailable Encounter Details Date Type Department Care Team Description 08/11/2022 Night Order Selector Report Medical Records [address] [place] [address] Maycol Infante MD Social History Tobacco Use [...] In the last 10 days, have hussein u been in contact with someone who was confirmed or suspected to have Coronavirus/COVID-19? No / Unsure 08/04/2022 9:20 AM EST documented as of this encounter Plan of Treatment Not on file documented as of this encounter Visit Diagnoses Not on filedocumented in this encounter Care Teams Field Human Resources Manager Relationship Specialty Start Date End Date Kathy Christopher MD [address] [place] [address] PCP - General Internal Medicine 01/21/22 Kameron Zuñiga MD B2B Sales Executive Cardiovascular Disease 08/04/21 Katya Lopez NP Cardiology 08/04/21 01/30/24 Be Pacheco NP [address] [place] [address] Nurse Practitioner Cardiology 10/17/22 01/30/24 Maycol Infante MD [address] [place] [address] Specialist Pulmonology 10/19/22 Sebastian Martinez MD [address] [place] [address] Specialist Ophthalmology 03/21/23 Eve Juan MD [address] [place] [address] [place] [address] Specialist UROGYNECOLOGY 03/21/23 Elisa Romero NP [address] [place] [address] [place] [address] Cardiology 01/31/24 Marcus Murcia DO [address] [place] [address] [place] [address] Specialist Physiatry 03/26/24 documented as of this encounter
--- OUTSIDE RECORDS SUMMARY | 2024-09-17 16:08 | XMS_ITS | Encounter Summary ---
Author Organization [facility] Address [address] [place] [address] Care Team Providers Care Optical Instrument Assembler Name Role Phone Kameron Zuñiga MD Unavailable Katya Lopez NP Unavailable Unavailab le Kathy Christopher MD Primary Care Prov ider Be Pacheco NP Unavailable [phone] Maycol Infante MD Unavailable Unavailable Sebastian Martinez MD Unavailable UnavailEve Blackmon MD Unavailable Elisa Romero NP Unavailable [phone] Marcus Murcia DO Unavailable Unavailable Encounter Details Date Type Department Care Team Description 01/22/2024 Javascript Developer Report Medical Records [address] [place] [address] Pierre Oliva, PAAdelaidaC Social History Tobacco Use Types Packs/Day Years [...] on filedocumented in this encounter Care Teams Optical Instrument Assembler Relationship Specialty Start Date End Date Kathy Christopher MD [address] [place] [address] [phone] PCP - General Internal Medicine 01/21/22 Kameron Zuñiga MD Consulting Application Engineer Cardiovascular Disease 08/04/21 Katya Lopez NP Cardiology 08/04/21 01/30/24 Be Pacheoc NP [address] [place] [address] Nurse Practitioner Cardiology 10/17/22 01/30/24 Maycol Infante MD [address] [place] [address] Specialist Pulmonology 10/19/22 Sebastian Martinez MD [address] [place] [address] Specialist Ophthalmology 03/21/23 Eve Juan MD [address] [place] [address] [place] [address] Specialist UROGYNECOLOGY 03/21/23 Elisa Romero NP [address] [place] [address] [place] [address] Cardiology 01/31/24 Marcus Murcia DO [address] [place] [address] [place] [address] Specialist Physiatry 03/26/24 documented as of this encounter
--- OUTSIDE RECORDS SUMMARY | 2024-09-17 16:08 | XMS_ITS | Encounter Summary ---
Author Organization [facility] Address [address] [place] [address] Care Team Providers Care Db2 Developer Name Role Phone Kameron Zuñiga MD Unavailable Katya Lopez NP Unavailable Unavailab le Kathy Christopher MD Primary Care Prov ider Be Pacheco NP Unavailable [phone] Maycol Infante MD Unavailable Unavailable Sebastian Martinez MD Unavailable UnavailEve Blackmon MD Unavailable Elisa Romero NP Unavailable [phone] Marcus Murcia DO Unavailable Unavailable Encounter Details Date Type Department Care Team Description 09/26/2022 Hospital Medical Records [address] [place] [address] Social History Tobacco Use Types Packs/Day Years [...] on filedocumented in this encounter Care Teams Db2 Developer Relationship Specialty Start Date End Date Kathy Christopher MD [address] [place] [address] PCP - General Internal Medicine 01/21/22 Kameron Zuñiga MD Machine Tester Cardiovascular Disease 08/04/21 Katya Lopez NP Cardiology 08/04/21 01/30/24 Be Pacheco NP [address] [place] [address] Nurse Practitioner Cardiology 10/17/22 01/30/24 Maycol Infante MD [address] [place] [address] Specialist Pulmonology 10/19/22 Sebastian Martinez MD [address] [place] [address] Specialist Ophthalmology 03/21/23 Eve Juan MD [address] [place] [address] [place] [address] Specialist UROGYNECOLOGY 03/21/23 Elisa Romero NP [address] [place] [address] [place] [address] Cardiology 01/31/24 Marcus Murcia DO [address] [place] [address] [place] [address] Specialist Physiatry 03/26/24 documented as of this encounter
--- OUTSIDE RECORDS SUMMARY | 2024-09-17 16:08 | XMS_ITS | Encounter Summary ---
Author Organization [facility] Address [address] [place] [address] Care Team Providers Care Leaf Sucker Operator Name Role Phone Kameron Zuñiga MD Unavailable Katya Lopez NP Unavailable Unavailab Kathy Haley MD Primary Care Prov ider Be Pacheco NP Unavailable [phone] Maycol Infante MD Unavailable Unavailable Sebastian Martinez MD Unavailable UnavailEve Blackmon MD Unavailable Elisa Romero NP Unavailable [phone] Marcus Murcia DO Unavailable Unavailable Encounter Details Date Type Department Care Team Description 07/15/2022 Director Water And Waste Services Report Medical Records [address] [place] [address] Maycol Infante MD Social History Tobacco Use [...] suspected to have Coronavirus/COVID-19? No / Unsure 07/15/2022 10:48 AM EST documented as of this encounter Plan of Treatment Not on file documented as of this encounter Visit Diagnoses Not on filedocumented in this encounter Care Teams Leaf Sucker Operator Relationship Specialty Start Date End Date Kathy Christopher MD [address] [place] [address] PCP - General Internal Medicine 01/21/22 Kameron Zuñiga MD Loss Control Consultant Cardiovascular Disease 08/04/21 Katya Lopez NP Cardiology 08/04/21 01/30/24 Be Pacheco NP [address] [place] [address] Nurse Practitioner Cardiology 10/17/22 01/30/24 Maycol Infante MD [address] [place] [address] Specialist Pulmonology 10/19/22 Sebastian Martinez MD [address] [place] [address] Specialist Ophthalmology 03/21/23 Eve Juan MD [address] [place] [address] [place] [address] Specialist UROGYNECOLOGY 03/21/23 Elisa Romero NP [address] [place] [address] [place] [address] Cardiology 01/31/24 Marcus Murcia DO [address] [place] [address] [place] [address] Specialist Physiatry 03/26/24 documented as of this encounter
--- OUTSIDE RECORDS SUMMARY | 2024-09-17 16:08 | XMS_ITS | Encounter Summary ---
Author Organization [facility] Address [address] [place] [address] Care Team Providers Care Hospital Admitting Clerk Name Role Phone Kameron Zuñiga MD Unavailable Katya Lopez NP Unavailable Unavailab Kathy Haley MD Primary Care Prov ider Be Pacheco NP Unavailable [phone] Maycol Infante MD Unavailable Unavailable Sebastian Martinez MD Unavailable UnavailEve Blackmon MD Unavailable Elisa Romero NP Unavailable [phone] Marcus Murcia DO Unavailable Unavailable Reason for Visit * Reason Onset Date Comments other 01/31/2022 high blood press ure Encounter Details Date Type Department Care Team Description 01/31/2022 Telephone Cardio PVCA Diag Testing 101 300 [facility] [address] [place], [place] [phone] Kameron Zuñiga MD [address] [place] [address] [phone] other (high blood pressure) Social History Tobacco Use Types Packs/Day Years [...] suspected to have Coronavirus/COVID-19? No / Unsure 01/31/2022 3:53 PM EDT documented as of this encounter Miscellaneous Notes * Telephone Encounter - Kameron Zuñiga MD - 02/02/2022 9:27 AM EDT Labs are fine. Laboratories are fine. Were not increase the diuretic for 5 days or so and repeat the labs * Telephone Encounter - Debra Messer R.N. - 02/02/2022 8:35 AM EDT Labs are in * Telephone Encounter - Katya Lopez NP - 01/31/2022 4:19 PM EDT I saw her not too long ago, she may need a short increase in her Lasix. It appears she got her labsdrawn today, this is collected. We will see what the results are tomorrow and any information when she calls back. * Telephone Encounter - Debra Messer R.N. - 01/31/2022 3:59 PM EDT Pts daughter called concerned about her mother, daughter lives in [place]. I did try to call pt to assess her but got no answer, LVM for return call. Spoke with daughter she states pt has been having CP for weeks. Bps have been elevated. Per daughter pt takes them prior to meds and then again around 5 pm because she starts to get a LEGER. BP 179/100,168/99. Daughter states pt has BLE swelling up to knees, she c/o SOB. Waiting for call back from pt to see if she weighs herself. Per daughter pt takes lasix 20mg every other day, took it 2 days in a row and started to feel better. Per daughter, pt eats fresh foods only, lots of salads and fruits, makes own dressing with oil and vinegar, doesn't use salt. * Telephone Encounter - Barry Fuentes - 01/31/2022 3:45 PM EDT Patients daughter is calling stating patient has been experiencing high blood pressure of around 169/90, todays blood pressure reading 01/31/22 was 162/90. Patient retaining fluid, on and off chest pain, for three weeks now, states daughter. Access aware patient was seen on 01/25/22. documented in this encounter Plan of Treatment Not on file documented as of this encounter Visit Diagnoses Not on filedocumented in this encounter Care Teams Hospital Admitting Clerk Relationship Specialty Start Date End Date Kathy Christopher MD [address] [place] [address] PCP - General Internal Medicine 01/21/22 Kameron Zuñiga MD Cripple Cutter Cardiovascular Disease 08/04/21 Katya Lopez NP Cardiology 08/04/21 01/30/24 Be Pacheco NP [address] [place] [address] Nurse Practitioner Cardiology 10/17/22 01/30/24 Maycol Infante MD [address] [place] [address] Specialist Pulmonology 10/19/22 Sebastian Martinez MD [address] [place] [address] Specialist Ophthalmology 03/21/23 Eev Juan MD [address] [place] [address] [place] [address] Specialist UROGYNECOLOGY 03/21/23 Elisa Romero NP [address] [place] [address] [place] [address] Cardiology 01/31/24 Marcus Murcia DO [address] [place] [address] [place] [address] Specialist Physiatry 03/26/24 documented as of this encounter
--- OUTSIDE RECORDS SUMMARY | 2024-09-17 16:08 | XMS_ITS | Clinical Summary ---
Author Organization [facility] Address [address] [place] [phone] Phone Care Team Providers Care Health Science Instructor Name Role Phone Kathy Christopher MD Primary [...] Office Visit [facility]. [address] [phone] Everton Riddle MD [address] [address] Health Maintenance Due Date Last [...] patient's age to complete this topic Insurance [facility] ([id number]) JESSICA REN [phone] [address] [place] [address] Care Teams Health Science Instructor Relationship Specialty Start Date End Date Kathy Christopher MD [address] [place] [address] [phone] PCP - General 09/10/24
--- OUTSIDE RECORDS SUMMARY | 2024-09-17 16:08 | XMS_ITS | Encounter Summary ---
Author Organization [facility] Address [address] [place] [address] Care Team Providers Care Brownfield Redevelopment Specialist Name Role Phone Kathy Perez MD Primary Care Prov ider Reason for Visit * Reason Onset Date Comments Referral 09/06/2024 Encounter Details Date Type Department Care Team (Late st Contact Info) Description 09/06/2024 Telephone Adult Medicine [address] [phone] Kathy Perez MD [address] [place] [address] Referral Social History Tobacco Use Types Packs/Day [...] Description 10/03/2024 9:50 AM EDT Office Visit [facility] [address] [phone] Kameron Zuñiga MD [address] [address] 01/28/2025 1:15 PM EDT Office Visit [address] [address] Kathy Perez MD 4 [place] [address] documented as of this encounter Visit Diagnoses Not on filedocumented in this encounter Care Teams Brownfield Redevelopment Specialist Relationship Specialty Start Date End Date Kathy Perez MD [address] [place] [address] PCP - General Internal Medicine 07/22/24 documented as of this encounter
--- OUTSIDE RECORDS SUMMARY | 2024-09-17 16:08 | XMS_ITS | Encounter Summary ---
Author Organization [facility] Address [address] [place] [address] Care Team Providers Care Space Officer Name Role Phone Kameron Zuñiga MD Unavailable Katya Lopez NP Unavailable Unavailab Kathy Haley MD Primary Care Prov ider Be Pacheco NP Unavailable [phone] Maycol Infante MD Unavailable Unavailable Sebastian Martinez MD Unavailable UnavailEve Blackmon MD Unavailable Elisa Romero NP Unavailable [phone] Marcus Murcia DO Unavailable Unavailable Encounter Details Date Type Department Care Team Description 10/14/2022 Public Works Laborer Report Medical Records [address] [place] [address] Maycol Infante MD Social History Tobacco Use [...] suspected to have Coronavirus/COVID-19? No / Unsure 10/17/2022 4:01 PM EDT documented as of this encounter Plan of Treatment Not on file documented as of this encounter Visit Diagnoses Not on filedocumented in this encounter Care Teams Space Officer Relationship Specialty Start Date End Date Kathy Christopher MD [address] [place] [address] PCP - General Internal Medicine 01/21/22 Kameron Zuñiga MD Surplus Property Disposal Agent Cardiovascular Disease 08/04/21 Katya Lopez NP Cardiology 08/04/21 01/30/24 Be Pacheco NP [address] [place] [address] Nurse Practitioner Cardiology 10/17/22 01/30/24 Maycol Infante MD [address] [place] [address] Specialist Pulmonology 10/19/22 Sebastian Martinez MD [address] [place] [address] Specialist Ophthalmology 03/21/23 Eve Juan MD [address] [place] [address] [place] [address] Specialist UROGYNECOLOGY 03/21/23 Elisa Romero NP [address] [place] [address] [place] [address] Cardiology 01/31/24 Marcus Murcia DO [address] [place] [address] [place] [address] Specialist Physiatry 03/26/24 documented as of this encounter
--- OUTSIDE RECORDS SUMMARY | 2024-09-17 16:08 | XMS_ITS | Encounter Summary ---
Author Organization [facility] Address [address] [place] [address] Care Team Providers Care Radiation Monitor Name Role Phone Wiley Thompson MD Primary Care Provider Kameron Cornejo MD Unavailable Katya Lopez FINANCIAL ADVISOR Unavailable Unavailab Kathy Haley MD Primary Care Prov ider Be Pacheco NP Unavailable [phone] Maycol Infante MD Unavailable Unavailable Sebastian Martinez MD Unavailable UnavailEve Blackmon MD Unavailable Elisa Romero NP Unavailable [phone] Marcus Murcia DO Unavailable Unavailable Encounter Details Date Type Department Care Team Description 03/19/2018 Field Underwriter Report Medical Records [address] [place] [address] Asya Waller, IRMA Social History Tobacco Use [...] on filedocumented in this encounter Care Teams Radiation Monitor Relationship Specialty Start Date End Date Wiley Thompson MD PCP - General Internal Medicine 06/04/14 01/20/22 Kathy Christopher MD [address] [place] [address] PCP - General Internal Medicine 01/21/22 Kameron Zuñiga MD Box Machine Operator Cardiovascular Disease 08/04/21 Katya Lopez, IRMA Cardiology 08/04/21 01/30/24 Be Pacheco NP 4 [place] [address] Nurse Practitioner Cardiology 10/17/22 01/30/24 Maycol Infante MD [address] [place] [address] Specialist Pulmonology 10/19/22 Sebastian Martinez MD [address] [place] [address] Specialist Ophthalmology 03/21/23 Eve Juan MD [address] [place] [address] [place] [address] Specialist UROGYNECOLOGY 03/21/23 Elisa Romero NP [address] [place] [address] [place] [address] Cardiology 01/31/24 Marcus Murcia DO [address] [place] [address] [place] [address] Specialist Physiatry 03/26/24 documented as of this encounter
--- OUTSIDE RECORDS SUMMARY | 2024-09-17 16:08 | XMS_ITS | Encounter Summary ---
Author Organization [facility] Address [address] [place] [address] Care Team Providers Care Drop Hammer Setter Up Name Role Phone Wiley Thompson MD Primary Care Provider Kameron Cornejo MD Unavailable Katya Lopez NP Unavailable Unavailab Kathy Haley MD Primary Care Prov ider Be Pacheco NP Unavailable [phone] Maycol Infante MD Unavailable Unavailable Sebastian Martinez MD Unavailable UnavailEve Blackmon MD Unavailable Elisa Romero NP Unavailable [phone] Marcus Murcia DO Unavailable Unavailable Reason for Visit * Reason Onset Date Comments refill request 05/24/2017 Encounter Details Date Type Department Care Team Description 05/24/2017 Refill Adult Medicine [address] [address] Wiley Thompson MD refill request Social History [...] encounter Miscellaneous Notes * Telephone Encounter - Erica Lassiter M.A. - 05/24/2017 4:36 PM EST Lab Results Component Value Date NA 143 02/07/2017 K 4.3 02/07/2017 CO2 26.7 02/07/2017 CL 100 02/07/2017 BUN 13 02/07/2017 CREAT 1.1 02/07/2017 GLU 94 02/07/2017 CA 9.5 02/07/2017 GFR 52 02/07/2017 * Telephone Encounter - Ally Pop - 05/24/2017 3:57 PM EST Patient would like script to be: E-PRESCRIBED/FAXED TO PHARMACY WHEN WAS THE PATIENT'S LAST APPOINTMENT IN ADULT MEDICINE? 03-28-17 WHEN WAS THE LAST TIME THE PATIENT SAW THEIR PCP? Same as above Does patient have an upcoming appointment? Yes 05-31-17 (THE MEDICATION REQUESTED IS ON THE MED LIST ABOVE) One or some of the medications requested were on the HISTORICAL MED list Did you check the Pharmacy information above?: YES Patient wants: 90 -day supply if possibel per patient Is this a mail order prescription request ? NO Patients current insurance carrier is: Payor: [facility] MCR / Plan[facility] [id number] / Product Type: HMO [id number] documented in this encounter Plan of Treatment Not on file documented as of this encounter Visit Diagnoses Not on filedocumented in this encounter Care Teams Drop Hammer Setter Up Relationship Specialty Start Date End Date Wiley Thompson MD PCP - General Internal Medicine 06/04/14 01/20/22 Kathy Christopher MD [address] [place] [address] PCP - General Internal Medicine 01/21/22 Kameron Zuñiga MD Sales Systems Engineer Cardiovascular Disease 08/04/21 Katya Lopez NP Cardiology 08/04/21 01/30/24 Be Pacheco NP 4 [place] [address] Nurse Practitioner Cardiology 10/17/22 01/30/24 Maycol Infante MD 4 [place] [address] Specialist Pulmonology 10/19/22 Sebastian Martinez MD [address] [place], [place] [phone] Specialist Ophthalmology 03/21/23 Eve Juan MD [address] [place] [address] [place] [address] Specialist UROGYNECOLOGY 03/21/23 Elisa Romero NP [address] [place] [address] [place] [address] Cardiology 01/31/24 Marcus Murcia DO [address] [place] [address] [place] [address] Specialist Physiatry 03/26/24 documented as of this encounter
--- OUTSIDE RECORDS SUMMARY | 2024-09-17 16:08 | XMS_ITS | Encounter Summary ---
Author Organization [facility] Address [address] [place] [address] Care Team Providers Care Traffic Expert Name Role Phone Kameron Zuñiga MD Unavailable Katya Lopez NP Unavailable Unavailab Kathy Haley MD Primary Care Prov ider Be Pacheco NP Unavailable [phone] Maycol Infante MD Unavailable Unavailable Sebastian Martinez MD Unavailable UnavailEve Blackmon MD Unavailable Elisa Romero NP Unavailable [phone] Marcus Murcia DO Unavailable Unavailable Reason for Visit * Reason Onset Date Comments other 03/23/2022 leg edema,sob Encounter Details Date Type Department Care Team Description 03/23/2022 Telephone Cardio PVCA Diag Testing 101 300 [facility] [address] [place], [place] [phone] Kameron Zuñiga MD [address] [place] [address] [phone] other (leg edema,sob) Social History Tobacco Use Types Packs/Day Years [...] Telephone Encounter - Kameron Zuñiga MD - 03/23/2022 5:29 PM EDT I reviewed the chart. I spoke to the patient and recommended that she increase Lasix to 40 mg daily. She can take 20 twice daily or 40 once a day. I am ordering laboratories to be done next week and a new echocardiogram. When the swelling and breathing is better she will go back to 20 mg daily * Telephone Encounter - Debra Messer R.N. - 03/23/2022 4:12 PM EDT Pt calling c/o R>L ankle swelling, states she also has pain in this ankle. States swelling decreases overnight. States she has SOB but only in the evening with exertion. Denies CP. Took 20mg Lasixyesterday and today. Pt doesn't track weights. Last BP on Mar 21 136/59 HR 79. Also states since her BP check she has been taking Metoprolol tartrate 100mg instead of the prescribed 75mg. States she also feels some lightheadedness. No changes to diet or medications, has been eating a lot of fruit. * Telephone Encounter - Terry Simms - 03/23/2022 4:02 PM EDT Patient reporting legs swollen,shortness of breath,no chest pain,no dizziness. Has been going on for 2 days. Please call patient [phone] documented in this encounter Plan of Treatment Not on file documented as of this encounter Visit Diagnoses Not on filedocumented in this encounter Care Teams Traffic Expert Relationship Specialty Start Date End Date Kathy Christopher MD [address] [place] [address] [place] [address] PCP - General Internal Medicine 01/21/22 Kameron Zuñiga MD Foreign Language Interpreter Cardiovascular Disease 08/04/21 Katya Lopez NP Cardiology 08/04/21 01/30/24 Be Pacheco NP 4 [place] [address] Nurse Practitioner Cardiology 10/17/22 01/30/24 Maycol Infante MD 4 [place] [address] Specialist Pulmonology 10/19/22 Sebastian Martinez MD 4 [place] [address] Specialist Ophthalmology 03/21/23 Eve Juan MD 4 [facility] [place] [address] Specialist UROGYNECOLOGY 03/21/23 Elisa Romero NP 4 [facility] [place] [address] Cardiology 01/31/24 Marcus Murcia DO 4 [facility] [place] [address] Specialist Physiatry 03/26/24 documented as of this encounter
--- OUTSIDE RECORDS SUMMARY | 2024-09-17 16:08 | XMS_ITS | Encounter Summary ---
Author Organization [facility] Address [address] [place] [address] Care Team Providers Care E Merchant Name Role Phone Kameron Zuñiga MD Unavailable Katya Lopez NP Unavailable Unavailab Kathy Haley MD Primary Care Prov ider Be Pacheco NP Unavailable [phone] Maycol Infante MD Unavailable Unavailable Sebastian Martinez MD Unavailable UnavailEve Blackmon MD Unavailable Elisa Romero NP Unavailable [phone] Marcus Murcia DO Unavailable Unavailable Encounter Details Date Type Department Care Team Description 05/11/2022 Telephone Adult Medicine [address] [phone] Kathy Christopher MD [address] [place] [address] [phone] Social History Tobacco Use Types Packs/Day Years [...] on filedocumented in this encounter Care Teams E Merchant Relationship Specialty Start Date End Date Kathy Christopher MD [address] [place] [address] PCP - General Internal Medicine 01/21/22 Kameron Zuñiga MD Report Clerk Cardiovascular Disease 08/04/21 Katya Lopez NP Cardiology 08/04/21 01/30/24 Be Pacheco NP [address] [place] [address] Nurse Practitioner Cardiology 10/17/22 01/30/24 Maycol Infante MD [address] [place] [address] Specialist Pulmonology 10/19/22 Sebastian Martinez MD [address] [place] [address] Specialist Ophthalmology 03/21/23 Eve Juan MD [address] [place] [address] [place] [address] Specialist UROGYNECOLOGY 03/21/23 Elisa Romero NP [address] [place] [address] [place] [address] Cardiology 01/31/24 Marcus Murcia DO [address] [place] [address] [place] [address] Specialist Physiatry 03/26/24 documented as of this encounter
--- OUTSIDE RECORDS SUMMARY | 2024-09-17 16:08 | XMS_ITS | Encounter Summary ---
Author Organization [facility] Address [address] [place] [address] Care Team Providers Care Delphi Developer Name Role Phone Wiley Thompson MD Primary Care Provider Kameron Cornejo MD Unavailable Katya Lopez NP Unavailable Unavailab Kathy Christopher MD Primary Care Prov ider Be Pacheco NP Unavailable [phone] Maycol Infante MD Unavailable Unavailable Sebastian Martinez MD Unavailable UnavailEve Blackmon MD Unavailable Elisa Romero NP Unavailable [phone] Marcus Murcia DO Unavailable Unavailable Encounter Details Date Type Department Care Team Description 11/23/2015 Transfer Records Medical Records [address] [place] [address] Abstract, Provider Social History Tobacco Use Types [...] on filedocumented in this encounter Care Teams Delphi Developer Relationship Specialty Start Date End Date Wiley Thompson MD PCP - General Internal Medicine 06/04/14 01/20/22 Kathy Christopher MD [address] [place] [address]9 PCP - General Internal Medicine 01/21/22 Kameron Zuñiga MD Assessment Nurse Cardiovascular Disease 08/04/21 Katya Lopez NP Cardiology 08/04/21 01/30/24 Be Pacheco NP [address] [place] [address] Nurse Practitioner Cardiology 10/17/22 01/30/24 Maycol Infante MD [address] [place] [address] Specialist Pulmonology 10/19/22 Sebastian Martinez MD [address] [place] [address] Specialist Ophthalmology 03/21/23 Eve Juan MD [address] [place] [address] [place] [address] Specialist UROGYNECOLOGY 03/21/23 Elisa Romero NP [address] [place] [address] [place] [address] Cardiology 01/31/24 Marcus Murcia DO [address] [place] [address] [place] [address] Specialist Physiatry 03/26/24 documented as of this encounter
--- OUTSIDE RECORDS SUMMARY | 2024-09-17 16:08 | XMS_ITS | Encounter Summary ---
Author Organization [facility] Address [address] [place] [address] Care Team Providers Care Command And Control Name Role Phone Wiley Thompson MD Primary Care Provider Kameron Cornejo MD Unavailable Katya Lopez NP Unavailable Unavailab Kathy Haley MD Primary Care Prov ider Be Pacheco NP Unavailable [phone] Maycol Infante MD Unavailable Unavailable Sebastian Martinez MD Unavailable UnavailEve Blackmon MD Unavailable Elisa Romero NP Unavailable [phone] Marcus Murcia DO Unavailable Unavailable Encounter Details Date Type Department Care Team Description 02/24/2015 Release of Information Medical Records [address] [place] [address] Abstract, Provider Social History Tobacco Use Types [...] as of this encounter Nursing Notes * 02/24/2015 12:00 PM EDT >> NELLY Joya Feb 24, 2015 11:47 AM Request received from [facility] sent to [facility] TIMOTHY/Erich. documented in this encounter Plan of Treatment Not on file documented as of this encounter Visit Diagnoses Not on filedocumented in this encounter Care Teams Command And Control Relationship Specialty Start Date End Date Wiley Thompson MD PCP - General Internal Medicine 06/04/14 01/20/22 Kathy Christopher MD [address] [place] [address] PCP - General Internal Medicine 01/21/22 Kameron Zuñiga MD Surgical Supervisor Cardiovascular Disease 08/04/21 Katya Lopez NP Cardiology 08/04/21 01/30/24 Be Pacheco NP [address] [place] [address] Nurse Practitioner Cardiology 10/17/22 01/30/24 Maycol Infante MD [address] [place] [address] Specialist Pulmonology 10/19/22 Sebastian Martinez MD [address] [place] [address] Specialist Ophthalmology 03/21/23 Eve Juan MD [address] [place] [address] [place] [address] Specialist UROGYNECOLOGY 03/21/23 Elisa Romero NP [address] [place] [address] [place] [address] Cardiology 01/31/24 Marcus Murcia DO [address] [place] [address] [place] [address] Specialist Physiatry 03/26/24 documented as of this encounter
--- OUTSIDE RECORDS SUMMARY | 2024-09-17 16:09 | XMS_ITS | Encounter Summary ---
Author Organization [facility] Address [address] [place] [address] Care Team Providers Care Antisqueak Applier Name Role Phone Wiley Thompson MD Primary Care Provider Kameron Cornejo MD Unavailable Katya Lopez NP Unavailable Unavailab Kathy Christopher MD Primary Care Prov ider Be Pacheco NP Unavailable [phone] Maycol Infante MD Unavailable Unavailable Sebastian Martinez MD Unavailable UnavailEve Blackmon MD Unavailable Elisa Romero NP Unavailable [phone] Marcus Murcia DO Unavailable Unavailable Encounter Details Date Type Department Care Team Description 05/31/2016 Marble Installer Supervisor Report Medical Records [address] [place] [address] Raissa Cavazos Social History Tobacco Use Types Packs/Day Years [...] on filedocumented in this encounter Care Teams Antisqueak Applier Relationship Specialty Start Date End Date Wiley Thompson MD PCP - General Internal Medicine 06/04/14 01/20/22 Kathy Christopher MD [address] [place] [address] PCP - General Internal Medicine 01/21/22 Kameron Zuñiga MD Residential Sales Consultant Cardiovascular Disease 08/04/21 Katya Lopez NP Cardiology 08/04/21 01/30/24 Be Pacheco NP [address] [place] [address] Nurse Practitioner Cardiology 10/17/22 01/30/24 Maycol Infante MD [address] [place] [address] Specialist Pulmonology 10/19/22 Sebastian Martinez MD [address] [place], [place] [address] Specialist Ophthalmology 03/21/23 Eve Juan MD [address] [place] [address] [place] [address] Specialist UROGYNECOLOGY 03/21/23 Elisa Romero NP [address] [place] [address] [place] [address] Cardiology 01/31/24 Marcus Murcia DO [address] [place] [address] [place] [address] Specialist Physiatry 03/26/24 documented as of this encounter
--- OUTSIDE RECORDS SUMMARY | 2024-09-17 16:09 | XMS_ITS | Encounter Summary ---
Author Organization [facility] Address [address] [place] [address] Care Team Providers Care Guide Setter Name Role Phone Wiley Thompson MD Primary Care Provider Kameron Cornejo MD Unavailable Katya Lopez NP Unavailable Unavailab Kathy Haley MD Primary Care Prov ider Be Pacheco NP Unavailable Maycol Infante MD Unavailable Unavailable Sebastian Martinez MD Unavailable UnavailEve Blackmon MD Unavailable Elisa Romero NP Unavailable [phone] Marcus Murcia DO Unavailable Unavailable Reason for Referral * Non CARIN (Routine) - Authorized/Booked Specialty Diagnoses / Procedures Referred By Contac t Referred To Contact Oncology/Hematology Procedures REFERRAL TO ONCOLOGY/HEMATOLOGY Lamine Rose MD [address] [place] [address] Onc/[place] [address] [place] [address] Referral ID Status Reason Start Date Expiration Date V isits Requested Visits Authorized [id number] Authorized/B ooked 12/11/2015 12/10/2016 1 1 Encounter Details Date Type Department Care Team Description 12/11/2015 Orders Only Gastroenterology - [place] [address] [place] [address] Lamine Rose MD Iron deficiency anemia due to chronic blood loss (Primary Dx) Social History Tobacco Use Types [...] as of this encounter Visit Diagnoses Diagnosis Iron deficiency anemia due to chronic blood loss- Primary Iron deficiency anemia secondary to blood loss (chronic) documented in this encounter Care Teams Guide Setter Relationship Specialty Start Date End Date Wiley Thompson MD PCP - General Internal Medicine 06/04/14 01/20/22 Kathy Christopher MD [address] [place] [address] PCP - General Internal Medicine 01/21/22 Kameron Zuñiga MD Manager Integration Cardiovascular Disease 08/04/21 Katya Lopez NP Cardiology 08/04/21 01/30/24 Be Pacheco NP [address] [place] [address] Nurse Practitioner Cardiology 10/17/22 01/30/24 Maycol Infante MD [address] [place] [address] Specialist Pulmonology 10/19/22 Sebastian Martinez MD [address] [place] [address] Specialist Ophthalmology 03/21/23 Eve Juan MD [address] [place] [address] [place] [address] Specialist UROGYNECOLOGY 03/21/23 Elisa Romero NP [address] [place] [address] [place] [address] Cardiology 01/31/24 Marcus Murcia DO [address] [facility] [place] [address] Specialist Physiatry 03/26/24 documented as of this encounter
--- OUTSIDE RECORDS SUMMARY | 2024-09-17 16:09 | XMS_ITS | Encounter Summary ---
Author Organization [facility] Address [address] [place] [address] Care Team Providers Care Pork Cutlet Maker Name Role Phone Wiley Thompson MD Primary Care Provider Kameron Cornejo MD Unavailable Katya Lopez NP Unavailable Unavailab Kathy Haley MD Primary Care Prov ider Be Pacheco NP Unavailable [phone] Maycol Infante MD Unavailable Unavailable Sebastian Martinez MD Unavailable UnavailEve Blackmon MD Unavailable Elisa Romero NP Unavailable [phone] Marcus Murcia DO Unavailable Unavailable Reason for Visit * Reason Comments E-prescribe Rx Request Encounter Details Date Type Department Care Team Description 04/27/2020 Refill Adult Medicine [address] [address] Wiley Thompson MD E-prescribe Rx Request Social [...] encounter Miscellaneous Notes * Telephone Encounter - Maria Isabel Brady M.A. - 04/28/2020 3:48 PM EST Lab Results Component Value Date CHOL 144 03/20/2020 LDL 64 03/20/2020 HDL 41 03/20/2020 TRIG 195 03/20/2020 SGOT 18 03/20/2020 SGPT 26 03/20/2020 * Telephone Encounter - Talia Lynnette - 04/27/2020 8:46 AM EST Patient would like script to be: E-PRESCRIBED/FAXED TO PHARMACY WHEN WAS THE PATIENT'S LAST APPOINTMENT IN ADULT MEDICINE? 03/20/20 WHEN WAS THE LAST TIME THE PATIENT SAW THEIR PCP? 02/04/20 Does patient have an upcoming appointment? No, patient to call (THE MEDICATION REQUESTED IS ON THE MED [...] N/A Patients current insurance carrier is: Payor: [facility] [employer] MCR / Plan: O $0 [facility] [id number] / Product Type: HMO [id number] documented in this encounter Plan of Treatment Not on file documented as of this encounter Visit Diagnoses Diagnosis CAD (coronary artery disease), [place] coronary artery Coronary atherosclerosis of cow[place] coronary artery documented in this encounter Care Teams Pork Cutlet Maker Relationship Specialty Start Date End Date Wiley Thompson MD PCP - General Internal Medicine 06/04/14 01/20/22 Kathy Christopher MD [address] [place] [address] PCP - General Internal Medicine 01/21/22 Kameron Zuñiga MD Postal Delivery Officer Cardiovascular Disease 08/04/21 Katya Lopez NP Cardiology 08/04/21 01/30/24 Be Pacheco NP [address] [place] [address] Nurse Practitioner Cardiology 10/17/22 01/30/24 Maycol Infante MD [address] [place] [address] Specialist Pulmonology 10/19/22 Sebastian Martinez MD [address] [place], [place] [address] Specialist Ophthalmology 03/21/23 Eve Juan MD [address] [place] [address] [place] [address] Specialist UROGYNECOLOGY 03/21/23 Elisa Romero NP [address] [place] [address] [place] [address] Cardiology 01/31/24 Marcus Murcia DO [address] [place] [address] [place] [address] Specialist Physiatry 03/26/24 documented as of this encounter
--- OUTSIDE RECORDS SUMMARY | 2024-09-17 16:09 | XMS_ITS | Encounter Summary ---
Author Organization [facility] Address [address] [place] [address] Care Team Providers Care Level Vial Marker Name Role Phone Wiley Thompson MD Primary Care Provider Kameron Cornejo MD Unavailable Katya Lopez NP Unavailable Unavailab Kahty Haley MD Primary Care Prov ider Be Pacheco NP Unavailable [phone] Maycol Infante MD Unavailable Unavailable Sebastian Martinez MD Unavailable UnavailEve Blackmon MD Unavailable Elisa Romero NP Unavailable [phone] Marcus Murcia DO Unavailable Unavailable Encounter Details Date Type Department Care Team Description 11/21/2018 Orders Only Medical Records [address] [place] [address] Maycol Infante MD Social History Tobacco Use [...] Name Priority Date/Time Associated Diagnosis Comments OUTSIDE SLEEP STUDY Routine 11/18/2018 documented in this encounter Results * OUTSIDE SLEEP STUDY (11/18/2018) Maycol Infante MD PULMONOLOGY documented in this encounter Visit Diagnoses Not on filedocumented in this encounter Care Teams Level Vial Marker Relationship Specialty Start Date End Date Wiley Thompson MD PCP - General Internal Medicine 06/04/14 01/20/22 Kathy Christopher MD [address] [place] [address] PCP - General Internal Medicine 01/21/22 Kameron Zuñiga MD Uptwister Tender Cardiovascular Disease 08/04/21 Katya Lopez NP Cardiology 08/04/21 01/30/24 Be Pacheco NP [address] [place] [address] Nurse Practitioner Cardiology 10/17/22 01/30/24 Maycol Infante MD [address] [place] [address] Specialist Pulmonology 10/19/22 Sebastian Martinez MD [address] [place] [address] Specialist Ophthalmology 03/21/23 Eve Juan MD [address] [place] [address] [place] [address] Specialist UROGYNECOLOGY 03/21/23 Elisa Romero NP [address] [place] [address] [place] [address] Cardiology 01/31/24 Marcus Murcia DO [address] [place] [address] [place] [address] Specialist Physiatry 03/26/24 documented as of this encounter
--- OUTSIDE RECORDS SUMMARY | 2024-09-17 16:09 | XMS_ITS | Encounter Summary ---
Author Organization [facility] Address [address] [place] [address] Care Team Providers Care Table Worker Packager Name Role Phone Wiley Thompson MD Primary Care Provider Kameron Cornejo MD Unavailable Katya Lopez NP Unavailable Unavailab Kathy Haley MD Primary Care Prov ider Be Pacheco NP Unavailable [phone] Maycol Infante MD Unavailable Unavailable Sebastian Martinez MD Unavailable UnavailEve Blackmon MD Unavailable Elisa Romero NP Unavailable [phone] Marcus Murcia DO Unavailable Unavailable Encounter Details Date Type Department Care Team Description 03/17/2020 Rug Frame Mounter Report Medical Records [address] [place] [address] Kameron Zuñiga MD [address] [place] [address] [id number] Social History Tobacco Use Types Packs/Day Years [...] have Coronavirus / COVID-19? No / Unsure 03/20/2020 1:27 PM EDT documented as of this encounter Plan of Treatment Not on file documented as of this encounter Visit Diagnoses Not on filedocumented in this encounter Care Teams Table Worker Packager Relationship Specialty Start Date End Date Wiley Thompson MD PCP - General Internal Medicine 06/04/14 01/20/22 Trina Rizo, Kathy Fried MD [address] [place] [address] PCP - General Internal Medicine 01/21/22 Kameron Zuñiga MD Brazer Assembler Cardiovascular Disease 08/04/21 Katya Lopez NP Cardiology 08/04/21 01/30/24 Be Pacheco NP [address] [place] [address] Nurse Practitioner Cardiology 10/17/22 01/30/24 Maycol Infante MD [address] [place] [address] Specialist Pulmonology 10/19/22 Sebastian Martinez MD [address] [place] [address] Specialist Ophthalmology 03/21/23 Eve Juan MD [address] [place] [address] [place] [address] Specialist UROGYNECOLOGY 03/21/23 Elisa Romero NP [address] [place] [address] [place] [address] Cardiology 01/31/24 Marcus Murcia DO [address] [place] [address] [place] [address] Specialist Physiatry 03/26/24 documented as of this encounter
--- OUTSIDE RECORDS SUMMARY | 2024-09-17 16:09 | XMS_ITS | Encounter Summary ---
Author Organization [facility] Address [address] [place] [address] Care Team Providers Care Weight And Balance Control Agent Name Role Phone Wiley Thompson MD Primary Care Provider Kameron Cornejo MD Unavailable Katya Lopez NP Unavailable Unavailab Kathy Christopher MD Primary Care Prov ider Be Pacheco NP Unavailable [phone] Maycol Infante MD Unavailable Unavailable Sebastian Martinez MD Unavailable UnavailEve Blackmon MD Unavailable Elisa Romero NP Unavailable [phone] Marcus Murcia DO Unavailable Unavailable Encounter Details Date Type Department Care Team Description 06/10/2016 Release of Information Medical Records [address] [place] [address] Abstract, Provider Social History Tobacco Use Types [...] on filedocumented in this encounter Care Teams Weight And Balance Control Agent Relationship Specialty Start Date End Date Wiley Thompson MD PCP - General Internal Medicine 06/04/14 01/20/22 Kathy Christopher MD [address] [place] [address] PCP - General Internal Medicine 01/21/22 Kameron uZñiga MD Help Desk Specialist Cardiovascular Disease 08/04/21 Katya Lopez NP Cardiology 08/04/21 01/30/24 Be Pacheco NP [address] [place] [address] Nurse Practitioner Cardiology 10/17/22 01/30/24 Maycol Infante MD [address] [place] [address] Specialist Pulmonology 10/19/22 Sebastian Martinez MD [address] [place], [place] [address] Specialist Ophthalmology 03/21/23 Eve Juan MD [address] [place] [address] [place] [address] Specialist UROGYNECOLOGY 03/21/23 Elisa Romero NP [address] [place] [address] [place] [address] Cardiology 01/31/24 Marcus Murcia DO [address] [place] [address] [place] [place] [address] Specialist Physiatry 03/26/24 documented as of this encounter
--- OUTSIDE RECORDS SUMMARY | 2024-09-17 16:09 | XMS_ITS | Encounter Summary ---
Author Organization [facility] Address [address] [place] [address] Care Team Providers Care Want Ad Clerk Name Role Phone Wiley Thompson MD Primary Care Provider Kameron Cornejo MD Unavailable Katya Lopez VACATION PLANNER Unavailable Unavailab Kathy Haley MD Primary Care Prov ider Be Pacheco NP Unavailable [phone] Maycol Infante MD Unavailable Unavailable Sebastian Martinez MD Unavailable UnavailEve Blackmon MD Unavailable Elisa Romero NP Unavailable [phone] Marcus Murcia DO Unavailable Unavailable Encounter Details Date Type Department Care Team Description 01/03/2017 Jig Hand Report Medical Records [address] [place] [address] Ellie Brannon Social History Tobacco Use Types Packs/Day Years [...] on filedocumented in this encounter Care Teams Want Ad Clerk Relationship Specialty Start Date End Date Wiley Thompson MD PCP - General Internal Medicine 06/04/14 01/20/22 Kathy Christopher MD [address] [place] [address] PCP - General Internal Medicine 01/21/22 Kameron Zuñiga MD [place] Rug Setter Cardiovascular Disease 08/04/21 Katya Lopez, IRMA Cardiology 08/04/21 01/30/24 Be Pacheco NP [address] [place] [address] Nurse Practitioner Cardiology 10/17/22 01/30/24 Maycol Infante MD [address] [place] [address] Specialist Pulmonology 10/19/22 Sebastian Martinez MD [address] [place] [address] Specialist Ophthalmology 03/21/23 Eve Juan MD [address] [place] [address] [place] [address] Specialist UROGYNECOLOGY 03/21/23 Elisa Romero NP [address] [place] [address] [place] [address] Cardiology 01/31/24 Marcus Murcia DO [address] [place] [address] [place] [address] Specialist Physiatry 03/26/24 documented as of this encounter
--- OUTSIDE RECORDS SUMMARY | 2024-09-17 16:09 | XMS_ITS | Encounter Summary ---
Author Organization [facility] Address [address] [place] [address] Care Team Providers Care Tie Binder Name Role Phone Wiley Thompson MD Primary Care Provider Kameron Cornejo MD Unavailable Katya Lopez NP Unavailable Unavailab Kathy Christopher MD Primary Care Prov ider Be Pacheco NP Unavailable [phone] Maycol Infante MD Unavailable Unavailable Sebastian Martinez MD Unavailable UnavailEve Blackmon MD Unavailable Elisa Romero NP Unavailable [phone] Marcus Murcia DO Unavailable Unavailable Encounter Details Date Type Department Care Team Description 08/07/2018 [facility] Medical Records [address] [place] [address] Abstract, Provider Social History Tobacco Use Types [...] on filedocumented in this encounter Care Teams Tie Binder Relationship Specialty Start Date End Date Wiley Thompson MD PCP - General Internal Medicine 06/04/14 01/20/22 Kathy Christopher MD [address] [place] [address] PCP - General Internal Medicine 01/21/22 Kameron Zuñiga MD Training And Development Specialist Cardiovascular Disease 08/04/21 Katya Lopez, IRMA Cardiology 08/04/21 01/30/24 Be Pacheco NP [address] [place] [address] Nurse Practitioner Cardiology 10/17/22 01/30/24 Maycol Infante MD [address] [place] [address] Specialist Pulmonology 10/19/22 Sebastian Martinez MD [address] [place] [address] Specialist Ophthalmology 03/21/23 Eve Juan MD [address] [place] [address] [place] [address] Specialist UROGYNECOLOGY 03/21/23 Elisa Romero NP [address] [place] [address] [place] [address] Cardiology 01/31/24 Marcus Murcia DO [address] [place] [address] [place] [address] Specialist Physiatry 03/26/24 documented as of this encounter
--- OUTSIDE RECORDS SUMMARY | 2024-09-17 16:09 | XMS_ITS | Encounter Summary ---
Author Organization [facility] Address [address] [place] [address] Care Team Providers Care Singing Messenger Name Role Phone Wiley Thompson MD Primary Care Provider Kameron Cornejo MD Unavailable Katya Lopez NP Unavailable Unavailab Kathy Haley MD Primary Care Prov ider Be Pacheco NP Unavailable Maycol Infante MD Unavailable Unavailable Sebastian Martinez MD Unavailable UnavailEve Blackmon MD Unavailable Elisa Romero NP Unavailable [phone] Marcus Murcia DO Unavailable Unavailable Reason for Visit * Reason Onset Date Comments refill request 05/06/2020 Encounter Details Date Type Department Care Team Description 05/06/2020 Refill Adult Medicine [address] [address] Wiley Thompson MD refill request Social History [...] have Coronavirus / COVID-19? No / Unsure 05/07/2020 12:49 PM EST documented as of this encounter Miscellaneous Notes * Telephone Encounter - Elisa Worthington - 05/06/2020 2:36 PM EST Patient would like script to be: E-PRESCRIBED/FAXED TO PHARMACY WHEN WAS THE PATIENT'S LAST APPOINTMENT IN ADULT MEDICINE? 03/20/2020 WHEN WAS THE LAST TIME THE PATIENT SAW THEIR PCP? 02/04/2020 Does patient have an upcoming appointment? Yes 05/07/2020 (THE MEDICATION REQUESTED IS ON THE MED [...] N/A Patients current insurance carrier is: Payor: [facility] MCR / Plan: FondeadoraO $0 [facility] [id number] / Product Type: HMO [id number] documented in this encounter Plan of Treatment Not on file documented as of this encounter Visit Diagnoses Not on filedocumented in this encounter Care Teams Singing Messenger Relationship Specialty Start Date End Date Wiley Thompson MD PCP - General Internal Medicine 06/04/14 01/20/22 Kathy Christopher MD [address] [place] [address] PCP - General Internal Medicine 01/21/22 Kameron Zuñiga MD Food Tester Cardiovascular Disease 08/04/21 Katya Lopez, IRMA Cardiology 08/04/21 01/30/24 Be Pacheco NP [address] [place] [address] Nurse Practitioner Cardiology 10/17/22 01/30/24 Maycol Infante MD [address] [place] [address] Specialist Pulmonology 10/19/22 Sebastian Martinez MD [address] [place] [address] Specialist Ophthalmology 03/21/23 Eve Juan MD [address] [place] [address] [place] [address] Specialist UROGYNECOLOGY 03/21/23 Elias Romero NP [address] [place] [address] [place] [address] Cardiology 01/31/24 Marcus Murcia DO [address] [place] [address] [place] [address] Specialist Physiatry 03/26/24 documented as of this encounter
--- OUTSIDE RECORDS SUMMARY | 2024-09-17 16:09 | XMS_ITS | Encounter Summary ---
Author Organization [facility] Address [address] [place] [address] Care Team Providers Care Airline Pilot Flight Instructor Name Role Phone Wiley Thompson MD Primary Care Provider Kameron Cornejo MD Unavailable Katya Lopez FOOD SERVICE TRAY ATTENDANT Unavailable Unavailab Kathy Haley MD Primary Care Prov ider Be Pacheco NP Unavailable [phone] Maycol Infante MD Unavailable Unavailable Sebastian Martinez MD Unavailable UnavailEve Blackmon MD Unavailable Elisa Romero NP Unavailable [phone] Marcus Murcia DO Unavailable Unavailable Encounter Details Date Type Department Care Team Description 02/07/2018 Astronomy Department Chair Report Medical Records [address] [place] [address] Asya Waller, IRMA Social History Tobacco Use [...] on filedocumented in this encounter Care Teams Airline Pilot Flight Instructor Relationship Specialty Start Date End Date Wiley Thompson MD PCP - General Internal Medicine 06/04/14 01/20/22 Kathy Christopher MD [address] [place] [address] PCP - General Internal Medicine 01/21/22 Kameron Zuñiga MD Pin Pusher Cardiovascular Disease 08/04/21 Katya Lopez, IRMA Cardiology 08/04/21 01/30/24 Be Pacheco NP [address] [place] [address] Nurse Practitioner Cardiology 10/17/22 01/30/24 Maycol Infante MD [address] [place] [address] Specialist Pulmonology 10/19/22 Sebastian Martinez MD [address] [place] [address] Specialist Ophthalmology 03/21/23 Eve Juan MD [address] [place] [address] [place] [address] Specialist UROGYNECOLOGY 03/21/23 Elisa Romero NP [address] [place] [address] [place] [address] Cardiology 01/31/24 Marcus Murcia DO [address] [place] [address] [place] [address] Specialist Physiatry 03/26/24 documented as of this encounter
--- OUTSIDE RECORDS SUMMARY | 2024-09-17 16:09 | XMS_ITS | Encounter Summary ---
Author Organization [facility] Address [address] [place] [address] Care Team Providers Care Hearing Examiner Name Role Phone Wiley Thomspon MD Primary Care Provider Kameron Cornejo MD Unavailable Katya Lopez NP Unavailable Unavailab Kathy Christopher MD Primary Care Prov ider Be Pacheco NP Unavailable Maycol Infante MD Unavailable Unavailable Sebastian Martinez MD Unavailable UnavailEve Blackmon MD Unavailable Elisa Romero NP Unavailable [phone] Marcus Murcia DO Unavailable Unavailable Encounter Details Date Type Department Care Team Description 01/09/2020 Rabbet Operator Report Medical Records [address] [place] [address] Kartik An MD Social History Tobacco Use Types Packs/Day [...] on filedocumented in this encounter Care Teams Hearing Examiner Relationship Specialty Start Date End Date Wiley Thompson MD PCP - General Internal Medicine 06/04/14 01/20/22 Kathy Christopher MD [address] [place] [address] PCP - General Internal Medicine 01/21/22 Kameron Zuñiga MD Security Door Installer Cardiovascular Disease 08/04/21 Katya Lopez, IRMA Cardiology 08/04/21 01/30/24 Be Pacheco NP [address] [place] [address] Nurse Practitioner Cardiology 10/17/22 01/30/24 Maycol Infante MD [address] [place] [address] Specialist Pulmonology 10/19/22 Sebastian Martinez MD [address] [place] [address] Specialist Ophthalmology 03/21/23 Eve Juan MD [address] [place] [address] [place] [address] Specialist UROGYNECOLOGY 03/21/23 Elias Romero NP [address] [place] [address] [place] [address] Cardiology 01/31/24 Marcus Murcia DO [address] [place] [address] [place] [address] Specialist Physiatry 03/26/24 documented as of this encounter
--- OUTSIDE RECORDS SUMMARY | 2024-09-17 16:09 | XMS_ITS | Encounter Summary ---
Author Organization [facility] Address [address] [place] [address] Care Team Providers Care Senior Interaction Designer Name Role Phone Bri Santacruz MD Primary Care Provider Unavailable Wiley Thompson MD Primary Care Provider Kameron Cornejo MD Unavailable Katya Lopez NP Unavailable Unavailab Kathy Haley MD Primary Care Prov ider Be Pacheco NP Unavailable [phone] Maycol Infante MD Unavailable Unavailable Sebastian Martinez MD Unavailable UnavailEve Blackmon MD Unavailable Elisa Romero NP Unavailable [phone] Marcus Murcia DO Unavailable Unavailable Encounter Details Date Type Department Care Team Description 02/01/2014 [facility] Medical Records [address] [place] [address] Arun Hui MD Social History Tobacco Use [...] on filedocumented in this encounter Care Teams Senior Interaction Designer Relationship Specialty Start Date End Date Bri Santacruz MD PCP - General Internal Medicine 04/23/12 06/03/14 Wiley Thompson MD PCP - General Internal Medicine 06/04/14 01/20/22 Kathy Christopher MD [address] [place] [address] PCP - General Internal Medicine 01/21/22 Kameron Zuñiga MD Manufacturing Controls Engineer Cardiovascular Disease 08/04/21 Katya Lopez NP Cardiology 08/04/21 01/30/24 Be Pacheco NP [address] [place] [address] Nurse Practitioner Cardiology 10/17/22 01/30/24 Maycol Infante MD [address] [place] [address] Specialist Pulmonology 10/19/22 Sebastian Martinez MD [address] [place] [address] Specialist Ophthalmology 03/21/23 Eve Juan MD [address] [place] [address] [place] [address] Specialist UROGYNECOLOGY 03/21/23 Elisa Romero NP [address] [place] [address] [place] [address] Cardiology 01/31/24 Marcus Murcia DO [address] [place] [address] [place] [address] Specialist Physiatry 03/26/24 documented as of this encounter
--- OUTSIDE RECORDS SUMMARY | 2024-09-17 16:09 | XMS_ITS | Encounter Summary ---
Author Organization [facility] Address [address] [place] [address] Care Team Providers Care Hyster Machine Operator Name Role Phone Kameron Zuñiga MD Unavailable Katya Lopez NP Unavailable Unavailab Kathy Haley MD Primary Care Prov ider Be Pacheco NP Unavailable [phone] Maycol Infante MD Unavailable Unavailable Sebastian Martinez MD Unavailable UnavailEve Blackmon MD Unavailable Elisa Romero NP Unavailable [phone] Marcus Murcia DO Unavailable Unavailable Encounter Details Date Type Department Care Team Description 10/19/2022 Claim Clerk Report Medical Records [address] [place] [address] Tiffanie Reyes Social History Tobacco Use Types Packs/Day Years [...] suspected to have Coronavirus/COVID-19? No / Unsure 10/19/2022 1:00 PM EDT documented as of this encounter Plan of Treatment Not on file documented as of this encounter Visit Diagnoses Not on filedocumented in this encounter Care Teams Hyster Machine Operator Relationship Specialty Start Date End Date Kathy Christopher MD [address] [place] [address] PCP - General Internal Medicine 01/21/22 Kameron Zuñiga MD Outpatient Facility Physical Therapist Cardiovascular Disease 08/04/21 Katya Lopez NP Cardiology 08/04/21 01/30/24 Be Pacheco NP [address] [place] [address] Nurse Practitioner Cardiology 10/17/22 01/30/24 Maycol Infante MD [address] [place] [address] Specialist Pulmonology 10/19/22 Sebastian Martinez MD [address] [place] [address] Specialist Ophthalmology 03/21/23 Eve Juan MD [address] [place] [address] [place] [address] Specialist UROGYNECOLOGY 03/21/23 Elisa Romero NP [address] [place] [address] [place] [address] Cardiology 01/31/24 Marcus Murcia DO [address] [place] [address] [place] [address] Specialist Physiatry 03/26/24 documented as of this encounter
--- OUTSIDE RECORDS SUMMARY | 2024-09-17 16:09 | XMS_ITS | Encounter Summary ---
Author Organization [facility] Address [address] [place] [address] Care Team Providers Care Military Administrative Technician Name Role Phone Wiley Thompson MD Primary Care Provider Kameron Cornejo MD Unavailable Katya Lopez NP Unavailable Unavailab Kathy Christopher MD Primary Care Prov ider Be Pacheco NP Unavailable [phone] Maycol Infante MD Unavailable Unavailable Sebastian Martinez MD Unavailable UnavailEve Blackmon MD Unavailable Elisa Romero NP Unavailable [phone] Marcus Murcia DO Unavailable Unavailable Encounter Details Date Type Department Care Team Description 12/16/2015 Theology Teacher Report Medical Records [address] [place] [address] Pallavi Henry MD Social History Tobacco Use [...] on filedocumented in this encounter Care Teams Military Administrative Technician Relationship Specialty Start Date End Date Wiley Thompson MD PCP - General Internal Medicine 06/04/14 01/20/22 Kathy Christopher MD [address] [place] [address] PCP - General Internal Medicine 01/21/22 Kameron Zuñiga MD Continuous Improvement Coach Cardiovascular Disease 08/04/21 Katya Lopez NP Cardiology 08/04/21 01/30/24 Be Pacheco NP [address] [place] [address] Nurse Practitioner Cardiology 10/17/22 01/30/24 Maycol Infante MD [address] [place] [address] Specialist Pulmonology 10/19/22 Sebastian Martinez MD [address] [place] [address] Specialist Ophthalmology 03/21/23 Eve Juan MD [address] [place] [address] [place] [address] Specialist UROGYNECOLOGY 03/21/23 Elisa Romero NP [address] [place] [address] [place] [address] Cardiology 01/31/24 Marcus Murcia DO [address] [place] [address] [place] [address] Specialist Physiatry 03/26/24 documented as of this encounter
--- OUTSIDE RECORDS SUMMARY | 2024-09-17 16:09 | XMS_ITS | Encounter Summary ---
Author Organization [facility] Address [address] [place] [address] Care Team Providers Care Emergency Planning And Response Manager Name Role Phone Bri Santacruz MD Primary Care Provider Unavailable Wiley Thompson MD Primary Care Provider Kameron Cornejo MD Unavailable Katya Lopez NP Unavailable Unavailab Kathy Haley MD Primary Care Prov ider Be Pacheco NP Unavailable [phone] Maycol Infante MD Unavailable Unavailable Sebastian Martinez MD Unavailable UnavailEve Blackmon MD Unavailable Elisa Romero NP Unavailable [phone] Marcus Murcia DO Unavailable Unavailable Encounter Details Date Type Department Care Team Description 05/27/2014 Controlled Substance Plan Medical Records [address] [place] [address] Abstract, Provider Social History Tobacco Use Types [...] on filedocumented in this encounter Care Teams Emergency Planning And Response Manager Relationship Specialty Start Date End Date Bri Santacruz MD PCP - General Internal Medicine 04/23/12 06/03/14 Wiley Thompson MD PCP - General Internal Medicine 06/04/14 01/20/22 Kathy Christopher MD [address] [place] [address] PCP - General Internal Medicine 01/21/22 Kameron Zuñiga MD Generating Station Mechanic Cardiovascular Disease 08/04/21 Katya Lopez NP Cardiology 08/04/21 01/30/24 Be Pacheco NP [address] [place] [address] Nurse Practitioner Cardiology 10/17/22 01/30/24 Maycol Infante MD [address] [place] [address] Specialist Pulmonology 10/19/22 Sebastian Martinez MD [address] [place] [address] Specialist Ophthalmology 03/21/23 Eve Juan MD [address] [place] [address] [place] [address] Specialist UROGYNECOLOGY 03/21/23 Elisa Romero NP [address] [place] [address] [place] [address] Cardiology 01/31/24 Marcus Murcia DO [address] [place] [address] [place] [address] Specialist Physiatry 03/26/24 documented as of this encounter
--- OUTSIDE RECORDS SUMMARY | 2024-09-17 16:09 | XMS_ITS | Encounter Summary ---
Author Organization [facility] Address [address] [place] [address] Care Team Providers Care Buttonhole Marker Name Role Phone Wiley Thompson MD Primary Care Provider Kameron Cornejo MD Unavailable Katya Lopez NP Unavailable Unavailab Kathy Christopher MD Primary Care Prov ider Be Pacheco NP Unavailable [phone] Maycol Infante MD Unavailable Unavailable Sebastian Martinez MD Unavailable UnavailEve Blackmon MD Unavailable Elisa Romero NP Unavailable [phone] Marcus Murcia DO Unavailable Unavailable Encounter Details Date Type Department Care Team Description 09/25/2018 Hospital Medical Records [address] [place] [address] Cory Baptiste MD Social History Tobacco Use Types Packs/Day [...] on filedocumented in this encounter Care Teams Buttonhole Marker Relationship Specialty Start Date End Date Wiley Thompson MD PCP - General Internal Medicine 06/04/14 01/20/22 Kathy Christopher MD [address] [place] [address] PCP - General Internal Medicine 01/21/22 Kameorn Zuñiga MD Staff Radiation Therapist Cardiovascular Disease 08/04/21 Katya Lopez, IRMA Cardiology 08/04/21 01/30/24 Be Pacheco NP [address] [place] [address] Nurse Practitioner Cardiology 10/17/22 01/30/24 Maycol Infante MD [address] [place] [address] Specialist Pulmonology 10/19/22 Sebastian Martinez MD [address] [place] [address] Specialist Ophthalmology 03/21/23 Eve Jaun MD [address] [place] [address] [place] [address] Specialist UROGYNECOLOGY 03/21/23 Elisa Romero NP [address] [place] [address] [place] [address] Cardiology 01/31/24 Marcus Murcia DO [address] [place] [address] [place] [address] Specialist Physiatry 03/26/24 documented as of this encounter
--- OUTSIDE RECORDS SUMMARY | 2024-09-17 16:09 | XMS_ITS | Encounter Summary ---
Author Organization [facility] Address [address] [place] [address] Care Team Providers Care Manager Intermediate Name Role Phone Wiley Thompson MD Primary Care Provider Kameron Cornejo MD Unavailable Katya Lopez NP Unavailable Unavailab Kathy Christopher MD Primary Care Prov ider Be Pacheco NP Unavailable [phone] Maycol Infante MD Unavailable Unavailable Sebastian Martinez MD Unavailable UnavailEve Blackmon MD Unavailable lEisa Romero NP Unavailable [phone] Marcus Murcia DO Unavailable Unavailable Encounter Details Date Type Department Care Team Description 04/29/2016 Controlled Substance Plan Medical Records [address] [place] [address] Abstract, Provider Social History Tobacco Use Types [...] filedocumented in this encounter Care Teams Manager Intermediate Relationship Specialty Start Date End Date Wiley Thompson MD PCP - General Internal Medicine 06/04/14 01/20/22 Kathy Christopher MD [address] [place] [address] PCP - General Internal Medicine 01/21/22 Kameron Zuñiga MD Mental Health Advanced Practice Nurse Cardiovascular Disease 08/04/21 Katya Lopez NP Cardiology 08/04/21 01/30/24 Be Pacheco NP [address] [place] [address] Nurse Practitioner Cardiology 10/17/22 01/30/24 Maycol nIfante MD [address] [place] [address] Specialist Pulmonology 10/19/22 Sebastian Martinez MD [address] [place], [place] [address] Specialist Ophthalmology 03/21/23 Eve Juan MD [address] [place] [address] [place] [address] Specialist UROGYNECOLOGY 03/21/23 Elisa Romero NP [address] [place] [address] [place] [address] Cardiology 01/31/24 Marcus Murcia DO [address] [place] [address] [place] [address] Specialist Physiatry 03/26/24 documented as of this encounter
--- OUTSIDE RECORDS SUMMARY | 2024-09-17 16:09 | XMS_ITS | Encounter Summary ---
Author Organization [facility] Address [address] [place] [address] Care Team Providers Care Wind Power Project Manager Name Role Phone Bri Santacruz MD Primary Care Provider Unavailable Wiley Thompson MD Primary Care Provider Kameron Cornejo MD Unavailable Katya Lopez NP Unavailable Unavailab Kathy Haley MD Primary Care Prov ider Be Pacheco NP Unavailable [phone] Maycol Infante MD Unavailable Unavailable Sebastian Martinez MD Unavailable UnavailEve Blackmon MD Unavailable Elisa Romero NP Unavailable [phone] Marcus Murcia DO Unavailable Unavailable Encounter Details Date Type Department Care Team Description 12/31/2013 Telephone Adult Medicine [address] [address] Bri Santacruz MD Social History Tobacco Use Types Packs/Day [...] on filedocumented in this encounter Care Teams Wind Power Project Manager Relationship Specialty Start Date End Date Bri Santacruz MD PCP - General Internal Medicine 04/23/12 06/03/14 Wiley Thompson MD PCP - General Internal Medicine 06/04/14 01/20/22 Kathy Christopher MD [address] [place] [address] PCP - General Internal Medicine 01/21/22 Kameron Zuñiga MD Supervisor Plate Pasting Cardiovascular Disease 08/04/21 Katya Lopez NP Cardiology 08/04/21 01/30/24 Be Pacheco NP [address] [place] [address] Nurse Practitioner Cardiology 10/17/22 01/30/24 Maycol Infante MD [address] [place] [address] Specialist Pulmonology 10/19/22 Sebastian Martinez MD [address] [place] [address] Specialist Ophthalmology 03/21/23 Eve Juan MD [address] [place] [address] [place] [address] Specialist UROGYNECOLOGY 03/21/23 Elisa Romero NP [address] [place] [address] [place] [address] Cardiology 01/31/24 Marcus Murcia DO [address] [place] [address] [place] [address] Specialist Physiatry 03/26/24 documented as of this encounter
--- OUTSIDE RECORDS SUMMARY | 2024-09-17 16:09 | XMS_ITS | Encounter Summary ---
Author Organization [facility] Address [address] [place] [address] Care Team Providers Care Corporate Human Resources Manager Name Role Phone Wiley Thompson MD Primary Care Provider Kameron Cornejo MD Unavailable Katya Lopez NP Unavailable Unavailab Kathy Haley MD Primary Care Prov ider Be Pacheco NP Unavailable [phone] Maycol Infante MD Unavailable Unavailable Sebastian Martinez MD Unavailable UnavailEve Blackmon MD Unavailable Elisa Romero NP Unavailable [phone] Marcus Murcia DO Unavailable Unavailable Reason for Visit * Reason Onset Date Comments Prior Authorization 12/18/2018 Encounter Details Date Type Department Care Team Description 12/18/2018 Telephone Adult Medicine [address] [address] Wiley Thompson MD Prior Authorization Social History Tobacco Use Types Packs/Day Years [...] encounter Miscellaneous Notes * Telephone Encounter - Mae Veloz M.A. - 12/31/2018 2:53 PM EDT Message left for patient to return my call. * Telephone Encounter - Wiley Thompson - 12/31/2018 2:45 PM EDT Please find out if pt still having muscle spasm. * Telephone Encounter - Daniela Freed M.A. - 12/31/2018 1:50 PM EDT Methocarbamol not covered by [employer]. Medication was denied because it a high risk for patients over 65 years and older. The patient has used:Meloxicam and naproxen Daniela Varghese MA Prior Authorization Dept. Ext: [phone] Please respond back to [id number] Thank You * Telephone Encounter - Jennifer Majano - 12/19/2018 10:36 AM EDT Pharmacy calling back, Nellie [phone] Option 1, Ref #[id number], they need clarification on diagnosis and that this is a high risk medication * Telephone Encounter - Daniela Freed M.A. - 12/18/2018 2:06 PM EDT Dx Code:Lower Back Pain Past Rx tried & fail:Meloxicam and Naproxen Other pertinent information:Prior authorization completed on cover my meds * Telephone Encounter - Tiffany Whitlock - 12/18/2018 1:57 PM EDT Pre Authorization for Medication-do not complete and send this encounter unless you have the fax from the pharmacy. Is this a Cover My Meds request: Yes -- White Code [id number] Name of Medication METHOCARBAMOL Dose of Medication 500 MG TABLETS What is the RX # from the faxed refill? NOT STATED ON FAX How does patient take this med? What Pharmacy did the fax come from: [facility] Pharmacy fax #: [phone] [employer] Party Information from fax: What Prescription Plan does the patient have? BIN/PCN if applicable: Cardholder ID: Person Code: Relationship Code: Help desk phone: [phone] documented in this encounter Plan of Treatment Not on file documented as of this encounter Visit Diagnoses Not on filedocumented in this encounter Care Teams Corporate Human Resources Manager Relationship Specialty Start Date End Date Wiley Thompson MD PCP - General Internal Medicine 06/04/14 01/20/22 Kathy Christopher MD [address] [place] [address] PCP - General Internal Medicine 01/21/22 Kameron Zuñiga MD Supervisor Case Loading Cardiovascular Disease 08/04/21 Katya Lopez NP Cardiology 08/04/21 01/30/24 Be Pacheco NP [address] [place] [address] Nurse Practitioner Cardiology 10/17/22 01/30/24 Maycol Infante MD [address] [place] [address] Specialist Pulmonology 10/19/22 Sebastian Martinez MD [address] [place] [address] Specialist Ophthalmology 03/21/23 Eve Juan MD [address] [place] [address] [place] [address] Specialist UROGYNECOLOGY 03/21/23 Elisa Romero NP [address] [place] [address] [place] [address] Cardiology 01/31/24 Marcus Murcia DO [address] [facility] [place] [address] Specialist Physiatry 03/26/24 documented as of this encounter
--- OUTSIDE RECORDS SUMMARY | 2024-09-17 16:09 | XMS_ITS | Encounter Summary ---
Author Organization [facility] Address [address] [place] [address] Care Team Providers Care Senior Policy Associate Name Role Phone Wiley Thompson MD Primary Care Provider Kameron Cornejo MD Unavailable Katya Lopez NP Unavailable Unavailab Kathy Haley MD Primary Care Prov ider Be Pacheco NP Unavailable [phone] Maycol Infante MD Unavailable Unavailable Sebastian Martinez MD Unavailable UnavailEve Blackmon MD Unavailable Elisa Romero NP Unavailable [phone] Marcus Murcia DO Unavailable Unavailable Encounter Details Date Type Department Care Team Description 03/10/2016 Orders Only Adult Medicine [address] [id number] Wiley Thompson MD Iron deficiency anemia due to chronic blood loss Social History Tobacco Use Types Packs/Day Years Used Date Smoking Tobacco: Former Cigarettes Q uit: 07/17/1989 Smokeless Tobacco: Former Alcohol Use Standard [...] Procedure Name Priority Date/Time Associated Diagnosis Comments CHG BLOOD OCCULT PEROXIDASE ACTV QUAL FECES 1 DETER Routine 03/10/2016 Iron deficiency anemia due to chronic blood loss documented in this encounter Results * FECES SCREENING FOR OCCULT BLOOD (03/10/2016) OCCULT BLOOD, STOOL neg [facility] OCCULT BLOOD, STOOL neg [facility] OCCULT BLOOD, STOOL neg [facility] INTERNAL CONTROL VALID yea [facility] 03/10/2016 H Duncan Sharp MD [facility] [address] [place] [address] documented in this encounter Visit Diagnoses Diagnosis Iron deficiency anemia due to chronic blood loss Iron deficiency anemia secondary to blood loss (chronic) documented in this encounter Care Teams Senior Policy Associate Relationship Specialty Start Date End Date Wiley Thompson MD PCP - General Internal Medicine 06/04/14 01/20/22 Kathy Christopher MD [address] [place] [address] PCP - General Internal Medicine 01/21/22 Kameron Zuñiga MD Pillowcase Cutter Cardiovascular Disease 08/04/21 Katya Lopez NP Cardiology 08/04/21 01/30/24 Be Pacheco NP [address] [place] [address] Nurse Practitioner Cardiology 10/17/22 01/30/24 Maycol Infante MD [address] [place] [address] Specialist Pulmonology 10/19/22 Sebastian Martinez MD [address] [place] [address] Specialist Ophthalmology 03/21/23 Eve Juan MD [address] [place] [address] [place] [address] Specialist UROGYNECOLOGY 03/21/23 Elisa Romero NP [address] [place] [address] [place] [address] Cardiology 01/31/24 Marcus Murcia DO [address] [facility] [place] [address] Specialist Physiatry 03/26/24 documented as of this encounter
--- OUTSIDE RECORDS SUMMARY | 2024-09-17 16:10 | XMS_ITS | Encounter Summary ---
Author Organization [facility] Address [address] [place] [address] Care Team Providers Care Visual Merchandising Director Name Role Phone Bri Santacruz MD Primary Care Provider Unavailable Wiley Thompson MD Primary Care Provider Kameron Cornejo MD Unavailable Katya Lopez NP Unavailable Unavailab Kathy Haley MD Primary Care Prov ider Be Pacheco NP Unavailable [phone] Maycol Infante MD Unavailable Unavailable Sebastian Martinez MD Unavailable UnavailEve Blackmon MD Unavailable Elisa Romero NP Unavailable [phone] Marcus Murcia DO Unavailable Unavailable Encounter Details Date Type Department Care Team Description 10/23/2012 Controlled Substance Contract with [facility] Medical Records [address] [place] [id number] Abstract, Provider Social History Tobacco Use Types [...] filedocumented in this encounter Care Teams Visual Merchandising Director Relationship Specialty Start Date End Date Bri Santacruz MD PCP - General Internal Medicine 04/23/12 06/03/14 Wiley Thompson MD PCP - General Internal Medicine 06/04/14 01/20/22 Kathy Christopher MD [address] [place] [address] PCP - General Internal Medicine 01/21/22 Kameron Zuñiga MD Linux Network Engineer Cardiovascular Disease 08/04/21 Katya Lopez NP Cardiology 08/04/21 01/30/24 Be Pacheco NP [address] [place] [address] 16168 Nurse Practitioner Cardiology 10/17/22 01/30/24 Maycol Infante MD [address] [place] [address] Specialist Pulmonology 10/19/22 Sebastian Martinez MD [address] [place], [place] [address] Specialist Ophthalmology 03/21/23 Eve Juan MD [address] [place] [address] [place] [address] Specialist UROGYNECOLOGY 03/21/23 Elisa Romero NP [address] [place] [address] [place] [address] Cardiology 01/31/24 Marcus Murcia DO [address] [place] [address] [place] [address] Specialist Physiatry 03/26/24 documented as of this encounter
--- OUTSIDE RECORDS SUMMARY | 2024-09-17 16:10 | XMS_ITS | Encounter Summary ---
Author Organization [facility] Address [address] [place] [address] Care Team Providers Care Rn Birthing Name Role Phone Kameron Zuñiga MD Unavailable Katya Lopez NP Unavailable Unavailab Kathy Haley MD Primary Care Prov ider Be Pacheco NP Unavailable [phone] Maycol Infante MD Unavailable Unavailable Sebastian Martinez MD Unavailable UnavailEve Blackmon MD Unavailable Elisa Romero NP Unavailable [phone] Marcus Murcia DO Unavailable Unavailable Encounter Details Date Type Department Care Team Description 07/08/2023 Telephone Cardio PVC [facility] [address] [place] [address] Kameron Zuñiga MD [address] [place] [address] [id number] Social History Tobacco Use Types Packs/Day Years [...] encounter Miscellaneous Notes * Telephone Encounter - Kathy Rizo MD - 07/10/2023 7:34 AM EST Thank you for letting me know. * Telephone Encounter - Kameron Zuñiga MD - 07/08/2023 3:38 PM EST I spoke to Shea. She tells me she is taking her metoprolol 50 in the morning and 20 5 in the evening. See ROCT results. Often tachycardic. She is going to try a whole tablet twice a day and see how she feels. It was all sinus tach. She does have significant COPD documented in this encounter Plan of Treatment Not on file documented as of this encounter Visit Diagnoses Not on filedocumented in this encounter Care Teams Rn Birthing Relationship Specialty Start Date End Date Kathy Christopher MD [address] [place] [address] PCP - General Internal Medicine 01/21/22 Kameron Zuñiga MD Geophysical Laboratory Supervisor Cardiovascular Disease 08/04/21 Katya Lopez NP Cardiology 08/04/21 01/30/24 Be Pacheco NP [address] [place] [address] Nurse Practitioner Cardiology 10/17/22 01/30/24 Maycol Infante MD [address] [place] [address] Specialist Pulmonology 10/19/22 Sebastian Martinez MD [address] [place], [place] [address] Specialist Ophthalmology 03/21/23 Eve Juan MD [address] [place] [address] [place] [address] Specialist UROGYNECOLOGY 03/21/23 Elisa Romero NP [address] [place] [address] [place] [address] Cardiology 01/31/24 Marcus Murcia DO [address] [place] [address] [place] [address] Specialist Physiatry 03/26/24 documented as of this encounter
--- OUTSIDE RECORDS SUMMARY | 2024-09-17 16:10 | XMS_ITS | Encounter Summary ---
Author Organization [facility] Address [address] [place] [address] Care Team Providers Care Technical Account Representative Name Role Phone Kameron Zuñiga MD Unavailable Katya Lopez NP Unavailable Unavailab Kathy Haley MD Primary Care Prov ider Be Pacheco NP Unavailable [phone] Maycol Infante MD Unavailable Unavailable Sebastian Martinez MD Unavailable UnavailEve Blackmon MD Unavailable Elisa Romero NP Unavailable [phone] Marcus Murcia DO Unavailable Unavailable Encounter Details Date Type Department Care Team Description 02/14/2023 Global Chief Experience Officer Report Medical Records [address] [place] [address] Pierre Oliva, PAAdelaidaC Social History Tobacco Use [...] suspected to have Coronavirus/COVID-19? No / Unsure 02/10/2023 10:27 AM EDT documented as of this encounter Plan of Treatment Not on file documented as of this encounter Visit Diagnoses Not on filedocumented in this encounter Care Teams Technical Account Representative Relationship Specialty Start Date End Date Kathy Christopher MD [address] [place] [address] PCP - General Internal Medicine 01/21/22 Kameron Zuñiga MD Presser All Around Cardiovascular Disease 08/04/21 Katya Lopez NP Cardiology 08/04/21 01/30/24 Be Pacheco NP [address] [place] [address] 09184 Nurse Practitioner Cardiology 10/17/22 01/30/24 Maycol Infante MD [address] [place] [address] Specialist Pulmonology 10/19/22 Sebastian Martinez MD [address] [place] [address] 22089 Specialist Ophthalmology 03/21/23 Eve Juan MD [address] [place] [address] [place] [address] Specialist UROGYNECOLOGY 03/21/23 Elisa Romero NP [address] [place] [address] [place] [address] Cardiology 01/31/24 Marcus Murcia DO [address] [place] [address] [place] [address] Specialist Physiatry 03/26/24 documented as of this encounter
--- OUTSIDE RECORDS SUMMARY | 2024-09-17 16:10 | XMS_ITS | Encounter Summary ---
Author Organization [facility] Address [address] [place] [address] Care Team Providers Care Sales And Marketing Administrator Name Role Phone Wiley Thompson MD Primary Care Provider Kameron Cornejo MD Unavailable Katya Lopez NP Unavailable Unavailab Kathy Haley MD Primary Care Prov ider Be Pacheco NP Unavailable [phone] Maycol Infante MD Unavailable Unavailable Sebastian Martinez MD Unavailable UnavailEve Blackmon MD Unavailable Elisa Romero NP Unavailable [phone] Marcus Murcia DO Unavailable Unavailable Reason for Visit * Reason Comments E-prescribe Rx Request Encounter Details Date Type Department Care Team Description 05/06/2021 Refill Adult Medicine [address] [id number] Pau Shultz PA [address] [place] [address] [id number] E-prescribe Rx Request Social History Tobacco Use [...] encounter Miscellaneous Notes * Telephone Encounter - Yuli Laguerre M.A. - 05/10/2021 1:28 PM EST Lab Results Component Value Date NA 142 12/25/2020 K 4.0 12/25/2020 CO2 26 12/25/2020 CL 108 12/25/2020 BUN 25 12/25/2020 CREAT 0.94 12/25/2020 GLU 83 12/25/2020 CA 9.0 12/25/2020 GFR 58 12/25/2020 JUAN 02/08/21 NO pending appt. * Telephone Encounter - Jessica Abad - 05/08/2021 10:58 AM EST Patient would like script to be: E-PRESCRIBED/FAXED TO PHARMACY WHEN WAS THE PATIENT'S LAST APPOINTMENT IN ADULT MEDICINE? 02/08/2021 WHEN WAS THE LAST TIME THE PATIENT SAW THEIR PCP? 11/05/2020 Does patient have an upcoming appointment? Sent letter (THE MEDICATION REQUESTED IS ON THE MED [...] N/A Patients current insurance carrier is: [facility] / Plan: HMO $0 [facility] [id number] / Product Type: HMO [id number] documented in this encounter Plan of Treatment Not on file documented as of this encounter Visit Diagnoses Not on filedocumented in this encounter Care Teams Sales And Marketing Administrator Relationship Specialty Start Date End Date Wiley Thompson MD PCP - General Internal Medicine 06/04/14 01/20/22 Kathy Christopher MD [address] [place] [address] PCP - General Internal Medicine 01/21/22 Kameron Zuñiga MD Meal Miller Cardiovascular Disease 08/04/21 Katya Lopez NP Cardiology 08/04/21 01/30/24 Be Pacheco NP [address] [place] [address] 59[address] Nurse Practitioner Cardiology 10/17/22 01/30/24 Maycol Infante MD [address] [place] [address]76 Specialist Pulmonology 10/19/22 Sebastian Martinez MD [address] [place] [address]66 Specialist Ophthalmology 03/21/23 Eve Juan MD [address] [place] [address] [place] [address] Specialist UROGYNECOLOGY 03/21/23 Elisa Romero NP [address] [place] [address] [place] [address] Cardiology 01/31/24 Marcus Murcia DO [address] [place] [address] [place] [address] Specialist Physiatry 03/26/24 documented as of this encounter
--- OUTSIDE RECORDS SUMMARY | 2024-09-17 16:10 | XMS_ITS | Encounter Summary ---
Author Organization [facility] Address [address] [place] [address] Care Team Providers Care Magnetic Resonance Imaging Director Name Role Phone Kameron Zuñiga MD Unavailable Katya Lopez NP Unavailable Unavailab Kathy Haley MD Primary Care Prov ider Be Pacheco NP Unavailable [phone] Maycol Infante MD Unavailable Unavailable Sebastian Martinez MD Unavailable UnavailEve Blackmon MD Unavailable Elisa Romero NP Unavailable [phone] Marcus Murcia DO Unavailable Unavailable Reason for Visit * Reason Onset Date Comments refill request 01/20/2023 Encounter Details Date Type Department Care Team Description 01/20/2023 Refill Uro[address] [address] Eve Juan MD [address] [place] [address] [place] [address] refill request Social History Tobacco Use Types [...] suspected to have Coronavirus/COVID-19? No / Unsure 01/16/2023 11:14 AM EDT documented as of this encounter Miscellaneous Notes * Telephone Encounter - Day Loo - 01/20/2023 1:16 PM EDT Patient would like script to be: E-PRESCRIBED/FAXED TO PHARMACY (THE MEDICATION REQUESTED IS ON THE MED [...] N/A Patients current insurance carrier is: Payor: [facility] MCR / Plan: O $0 [facility] [id number] / Product Type: HMO [id number] documented in this encounter Plan of Treatment Not on file documented as of this encounter Visit Diagnoses Not on filedocumented in this encounter Care Teams Magnetic Resonance Imaging Director Relationship Specialty Start Date End Date Kathy Christopher MD [address] [place] [address] PCP - General Internal Medicine 01/21/22 Kameron Zuñiga MD Railways Assistant Cardiovascular Disease 08/04/21 Katya Lopez NP Cardiology 08/04/21 01/30/24 Be Pacheco NP [address] [place] [address] Nurse Practitioner Cardiology 10/17/22 01/30/24 Maycol Infante MD [address] [place] [address] Specialist Pulmonology 10/19/22 Sebastian Martinez MD [address] [place], [place] [phone] Specialist Ophthalmology 03/21/23 Eve Juan MD [address] [place] [address] [place] [address] Specialist UROGYNECOLOGY 03/21/23 Elisa Romero NP [address] [place] [address] [place] [address] Cardiology 01/31/24 Marcus Murcia DO [address] [place] [address] [place] [address] Specialist Physiatry 03/26/24 documented as of this encounter
--- OUTSIDE RECORDS SUMMARY | 2024-09-17 16:10 | XMS_ITS | Encounter Summary ---
Author Organization [facility] Address [address] [place] [address] Care Team Providers Care Representative Government Relations Name Role Phone Wiley Thompson MD Primary Care Provider Kameron Cornejo MD Unavailable Katya Lopez NP Unavailable Unavailab Kathy Haley MD Primary Care Prov ider Be Pacheco NP Unavailable [phone] Maycol Infante MD Unavailable Unavailable Sebastian Martinez MD Unavailable UnavailEve Blackmon MD Unavailable Elisa Romero NP Unavailable [phone] Marcus Murcia DO Unavailable Unavailable Reason for Visit * Reason Comments E-prescribe Rx Request Encounter Details Date Type Department Care Team Description 07/07/2021 Refill Adult Medicine [address] [address] Wiley Thompson MD E-prescribe Rx Request Social [...] have Coronavirus / COVID-19? No / Unsure 07/02/2021 2:50 PM EST documented as of this encounter Miscellaneous Notes * Telephone Encounter - Yuli Laguerre M.A. - 07/08/2021 12:56 PM EST No results found for: 25OHD, 25HYDROXYVIT JUAN 06/24/21 NO pending appt * Telephone Encounter - Cristin Infante - 07/08/2021 12:23 PM EST Patient would like script to be: E-PRESCRIBED/FAXED TO PHARMACY WHEN WAS THE PATIENT'S LAST APPOINTMENT IN ADULT MEDICINE? 06-24-21 WHEN WAS THE LAST TIME THE PATIENT SAW THEIR PCP? 11-05-20 Does patient have an upcoming appointment? Patient was sent a My Chart request to set up an appointment as they are due. (THE MEDICATION REQUESTED IS ON THE MED [...] N/A Patients current insurance carrier is: Payor: [facility] MCR / Plan: [employer] $0 [facility] [id number] / Product Type: HMO [id number] documented in this encounter Plan of Treatment Not on file documented as of this encounter Visit Diagnoses Not on filedocumented in this encounter Care Teams Representative Government Relations Relationship Specialty Start Date End Date Wiley Thompson MD PCP - General Internal Medicine 06/04/14 01/20/22 Kathy Christopher MD [address] [place] [address] PCP - General Internal Medicine 01/21/22 Kameron Zuñiga MD Parts Cataloguer Cardiovascular Disease 08/04/21 Katya Lopez NP Cardiology 08/04/21 01/30/24 Be Pacheco NP [address] [place] [address] Nurse Practitioner Cardiology 10/17/22 01/30/24 Maycol Infante MD [address] [place] [address] Specialist Pulmonology 10/19/22 Sebastian Martinez MD [address] [place] [address] Specialist Ophthalmology 03/21/23 Eev Juan MD [address] [place] [address] [place] [address] Specialist UROGYNECOLOGY 03/21/23 Elisa Romero NP [address] [place] [address] [place] [address] Cardiology 01/31/24 Marcus Murcia DO [address] [place] [address] [place] [address] Specialist Physiatry 03/26/24 documented as of this encounter
--- OUTSIDE RECORDS SUMMARY | 2024-09-17 16:10 | XMS_ITS | Encounter Summary ---
Author Organization [facility] Address [address] [place] [address] Care Team Providers Care Color Control Operator Name Role Phone Wiley Thompson MD Primary Care Provider Kameron Cornejo MD Unavailable Katya Lopez NP Unavailable Unavailab Kathy Haley MD Primary Care Prov ider Be Pacheco NP Unavailable [phone] Maycol Infante MD Unavailable Unavailable Sebastian Martinez MD Unavailable UnavailEve Blackmon MD Unavailable Elisa Romero NP Unavailable [phone] Marcus Murcia DO Unavailable Unavailable Encounter Details Date Type Department Care Team Description 07/24/2021 Hospital Medical Records [address] [place] [address] Abstract, Provider Social History Tobacco Use Types [...] on filedocumented in this encounter Care Teams Color Control Operator Relationship Specialty Start Date End Date Wiley Thompson MD PCP - General Internal Medicine 06/04/14 01/20/22 Kathy Christopher MD [address] [place] [address] PCP - General Internal Medicine 01/21/22 Kameron Zuñiga MD Consultant Intern Cardiovascular Disease 08/04/21 Katya Lopez NP Cardiology 08/04/21 01/30/24 Be Pacheco NP [address] [place] [address] 84466 Nurse Practitioner Cardiology 10/17/22 01/30/24 Maycol Infante MD [address] [place] [address] Specialist Pulmonology 10/19/22 Sebastian Martinez MD [address] [place] [address] Specialist Ophthalmology 03/21/23 Eve Juan MD [address] [place] [address] [place] [address] Specialist UROGYNECOLOGY 03/21/23 Elisa Romero NP [address] [place] [address] [place] [address] Cardiology 01/31/24 Marcus Murcia DO [address] [place] [address] [place] [address] Specialist Physiatry 03/26/24 documented as of this encounter
--- OUTSIDE RECORDS SUMMARY | 2024-09-17 16:10 | XMS_ITS | Encounter Summary ---
Author Organization [facility] Address [address] [place] [address] Care Team Providers Care Fish Tender Name Role Phone Kathy Perez MD Primary Care Prov ider Reason for Visit * Imaging (Routine) - Closed Specialty Diagnoses / Procedures Referred By Ruel fang Referred To Contact Cardiology Diagnoses Coronary artery disease involving sokaogon coronary artery of sokaogon heart without angina pectoris Peripheral edema SOTELO (dyspnea on exertion) Chronic heart failure with preserved ejection fraction (CMS/HCC) Procedures Transthoracic echocardiogram (TTE) complete with PRN contrast, bubble, strain, and 3D order panel MT TTE W 2D IMAGE COMPLETE W DOPPLER ECHO & COLOR FLOW DOPPLER ECHO MT ANNABELLE 2D COMPLETE W/CONTRAST OR W & WO CONTRAST WITH DOPPLER Elisa Romero NP [address] [place] [address] Phone: tel: fax: [facility] Referral ID Status Reason Start Date Expiration Date Visits Re quested Visits Authorized [id number] Closed 06/04/2024 06/04/2025 1 1 Encounter Details Date Type Department Care Team (Latest Contact Info) Description 09/12/2024 11:30 AM EDT Ancillary Procedure [facility] - [address] [place] [address] Coronary artery disease involving sokaogon coronary artery of sokaogon heart without angina pectoris; Peripheral edema; SOTELO (dyspnea on exertion); Chronic heart failure with preserved ejection fraction (CMS/HCC) Social History Tobacco Use Types Packs/Day Years [...] Pressure 144/75 09/12/2024 1:01 PM EDT Pulse - - Temperature - - Respiratory Rate - - Oxygen Saturation - - Inhaled Oxygen Concentration - - Weight 83 kg (183 lb) 09/12/2024 1:01 PM EDT Height 162.6 cm (5' 4 ) 09/12/2024 1:01 PM EDT Body Mass Index 31.41 09/12/2024 1:01 PM EDT documented in this encounter Plan of Treatment Upcoming Encounters Date Type Department Care Team (Late st Contact Info) Description 10/03/2024 9:50 AM EDT Office Visit [facility] [address] [address] Kameron Zuñiga MD [address] [address] 01/28/2025 1:15 PM EDT Office Visit Adult Medicine [address] [address] Kathy Perez MD [address] [place] [address] Pending Results Name Type Priority Associated Diagnoses Date/Time Transthoracic echocardiogram (TTE) complete with PRN contrast, bubble, strain, and 3D order panel Echocardiography Routine Coronary artery disease involving sokaogon coronary artery of sokaogon heart without angina pectoris Peripheral edema SOTELO (dyspnea on exertion) Chronic heart failure with preserved ejection fraction (CMS/HCC) 09/12/2024 12:00 PM EDT documented as of this encounter Visit Diagnoses Diagnosis Coronary artery disease involving sokaogon coronary artery of sokaogon heart without angina pectoris Peripheral edema Edema SOTELO (dyspnea on exertion) Other dyspnea and respiratory abnormality Chronic heart failure with preserved ejection fraction (CMS/HCC) documented in this encounter Care Teams Fish Tender Relationship Specialty Start Date End Date Kathy Perez MD [address] [place] [address] PCP - General Internal Medicine 07/22/24 documented as of this encounter
--- OUTSIDE RECORDS SUMMARY | 2024-09-17 16:10 | XMS_ITS | Encounter Summary ---
Author Organization [facility] Address [address] [place] [address] Care Team Providers Care Hawk Missile System Crewmember Name Role Phone Wiley Thompson MD Primary Care Provider Kameron Cornejo MD Unavailable Katya Lopez NP Unavailable Unavailab Kathy Haley MD Primary Care Prov ider Be Pacheco NP Unavailable [phone] Maycol Infante MD Unavailable Unavailable Sebastian Martinez MD Unavailable UnavailEve Blackmon MD Unavailable Elisa Romero NP Unavailable Marcus Murcia DO Unavailable Unavailable Encounter Details Date Type Department Care Team Description 01/29/2021 Product Safety Technical Assistant Report Medical Records [address] [place] [address] Maycol Infante MD Social History Tobacco Use [...] have Coronavirus / COVID-19? No / Unsure 01/07/2021 12:49 PM EDT documented as of this encounter Plan of Treatment Not on file documented as of this encounter Visit Diagnoses Not on filedocumented in this encounter Care Teams Hawk Missile System Crewmember Relationship Specialty Start Date End Date Wiley Thompson MD PCP - General Internal Medicine 06/04/14 01/20/22 Kathy Christopher MD [address] [place] [address] PCP - General Internal Medicine 01/21/22 Kameron Zuñiga MD Tire Assembler Cardiovascular Disease 08/04/21 Katya Lopez NP Cardiology 08/04/21 01/30/24 Be Pacheco NP [address] [place] [address] Nurse Practitioner Cardiology 10/17/22 01/30/24 Maycol Infante MD [address] [place] [address] Specialist Pulmonology 10/19/22 Sebastian Martinez MD [address] [place] [address] Specialist Ophthalmology 03/21/23 Eve Juan MD [address] [place] [address] [place] [address] Specialist UROGYNECOLOGY 03/21/23 Elisa Romero NP [address] [place] [address] [place] [address] Cardiology 01/31/24 Marcus Murcia DO [address] [place] [address] [place] [address] Specialist Physiatry 03/26/24 documented as of this encounter
--- OUTSIDE RECORDS SUMMARY | 2024-09-17 16:10 | XMS_ITS | Encounter Summary ---
Author Organization [facility] Address [address] [place] [address] Care Team Providers Care Hand Braille Transcriber Name Role Phone Kameron Zuñiga MD Unavailable Katya Lopez NP Unavailable Unavailab Kathy Haley MD Primary Care Prov ider Be Pacheco NP Unavailable [phone] Maycol Infante MD Unavailable Unavailable eSbastian Martinez MD Unavailable UnavailEve Blackmon MD Unavailable Elisa Romero NP Unavailable [phone] Marcus Murcia DO Unavailable Unavailable Encounter Details Date Type Department Care Team Description 10/25/2022 SCAN Medical Records [address] [place] [address] Abstract, Provider Social History Tobacco Use Types [...] Name Priority Date/Time Associated Diagnosis Comments OUTSIDE NUCLEAR STRESS TEST Routine 10/25/2022 OUTSIDE LAB Routine 10/25/2022 documented in this encounter Results * OUTSIDE LAB (10/25/2022) Provider Default LAB * OUTSIDE NUCLEAR STRESS TEST (10/25/2022) Provider Default CARDIOLOGY documented in this encounter Visit Diagnoses Not on filedocumented in this encounter Care Teams Hand Braille Transcriber Relationship Specialty Start Date End Date Kathy Christopher MD [address] [place] [address] PCP - General Internal Medicine 01/21/22 Kameron Zuñiga MD Citizenship Teacher Cardiovascular Disease 08/04/21 Katya Lopez NP Cardiology 08/04/21 01/30/24 Be Pacheco NP [address] [place] [address] Nurse Practitioner Cardiology 10/17/22 01/30/24 Maycol Infante MD [address] [place] [address] Specialist Pulmonology 10/19/22 Sebastian Martinez MD [address] [place], [place] [phone] Specialist Ophthalmology 03/21/23 Eve Juan MD [address] [place] [address] [place] [address] Specialist UROGYNECOLOGY 03/21/23 Elisa oRmero NP [address] [place] [address] [place] [address] Cardiology 01/31/24 Marcus Murcia DO [address] [place] [address] [place] [address] Specialist Physiatry 03/26/24 documented as of this encounter
--- OUTSIDE RECORDS SUMMARY | 2024-09-17 16:10 | XMS_ITS | Data Portability ---
Author Organization [employer] [employer] [facility] Address [address] [place] [address] Care Team Providers Care Roll Press Operator Name Role Phone [facility] Referring Provider [facility] OTHER Assessment Encounter Date Assessment Date Assessment LastModified by Organization Details LastModified Time 04/20/2024 04/20/2024 I provided real -time medical direction via phone for this encounter and was available for additional phone-based assistance as needed. I have reviewed and agree with the Assessment and Plan as documented by the Finish Mender. Patient given the opportunity to ask questions. [...] on metoprolol to for rate control. Per glass washer on the scene, vital signs are stable [...] have any evidence of volume overload per glass washer on the scene. She has no evidence [...] [facility], [address] [place] [address], [phone], 3 20:04:39 rapid flu (A+B) 2022 [email or web address] [facility], [address] [place] [address], [phone], 3 20:04:40 rapid strep group A, throat 2022 [email or web address] [facility], [address] [place] [address], [phone], 3 20:04:38 culture, urine 2022 023 CLEMENT [facility] (Centralized Electronic Ordering - All Locations), Patient Can Go To The Location Of Their Choice, [address] 3 07:41:06 Referral None recorded. Procedures None recorded. Surgeries None recorded. Imaging None recorded. Medication Orders Levaquin 500 mg tablet [email or web address] [place] [address], [address] [place] [address], [address], 13:34:52 Patient TargetsNo targets recorded. Patient InstructionsNo instructions recorded. Reason for Referral None Reported. Results Created Date Observation Date Name Description Value Unit Range Abnormal Flag Note LastModifiedBy Organization Detail LastModifiedTime 09/28/1909/27/2022 URINE CULTU RE specimen description URINE Not Available [facility] (Centralized Electronic Ordering - All Locations) Patient Can Go To The Location Of Their Choice, [facility] 09/29/2022 07:41:06 09/28/1909/27/2022 URINE CULTU RE special requests NONE Not Available [facility] (Centralized Electronic Ordering - All Locations) Patient Can Go To The Location Of Their Choice, [facility] 09/29/2022 07:41:06 09/28/1909/29/2022 URINE CULTU RE culture NO GROWTH Not Available [facility] (Centralized Electronic Ordering - All Locations) Patient Can Go To The Location Of Their Choice, [facility] 09/29/2022 07:41:06 09/28/1909/29/2022 URINE CULTU RE report status FINAL 2022 Not Available [facility] (Centralized Electronic Ordering - All Locations) Patient Can Go To The Location Of Their Choice, [facility] 09/29/2022 07:41:06 06/17/2006/17/2023 rapid strep group A, throa t Strep negati ve Not Available [facility] ed [address] [place] [address], [phone], 06/17/2023 20:04:20 06/17/20 23 06/17/2023 rapid flu (A+B) Flu negati ve Not Available [facility] ed [address] [place] [address], [phone], 06/17/2023 20:04:18 06/17/20 23 06/17/2023 rapid SARS CoV 2 Ag, QL IA, respi rator y speci men rapid SARS CoV 2 Ag, QL [place], respiratory specimen negati ve Not Available [facility] ed [address] [place] [address], [phone], 06/17/2023 20:04:15 Result Notes None recorded. Medical Equipment None Reported. Allergies Allergen ID Allergen Name Allergen Category Reaction Reaction Severity Criticality Documentation Date Start Date Code Code System Note Provider Name and Address Organization Details Recorded Time 7839 Product containin odilon penicilli n (product) medicatio n Not available Not available Not available 04/16/2024 43484 8001 SNOMED Not Available [facility] - production [...] Updated DateTime 3 16 /min 162.56 cm 19390.5 6 g 90 /min 96 % 96 % 99.5 [degF] 143 mm[Hg] 68 mm[Hg] Not Available [facility] - production 3 19:48:26 Date Recorded Body weight Respiratory rate Heart rate Body height Body temperature Oxygen saturation Oxygen saturation in Arterial blood by Pulse oximetry Systolic blood pressure Diastolic blood pressure Provider Name and Address Organization Details Last Updated DateTime 4 50821.5 6 g 18 /min 111 /min 162.56 [...] % 98 % 95.7 [degF] 73 /min 18917.5 6 g 16 /min 125 mm[Hg] 67 [...] [id number] Praveen Valdovinos MD Main - [facility] [address] [place] [phone] 09/27/2022 13:30:25 09/29/2022 10:29:50 Acute urinary tract infection 962726714 N39.0 [id number] Petra Elmore MD Main - [facility] [address] [place] [phone] 06/17/2023 19:48:24 06/20/2023 12:24:39 Upper respiratory infection 54621736 J06.9 Evaluation in the field was performed by my glass washer colleague, as noted above, I provided real-time [...] shortness of breath, cough, chest pain, fever. [id number] Jackie Adron MD Main - [address] [phone] 04/20/2024 14:23:19 04/20/2024 19:15:29 Decreased urine output 262035304 R34 Chronic ki dney disease stage 3 584458462 N18.30 Tachycardia 8973355 R00. 0 Health Concerns Section Related Observation [...] (MEDICARE REPLACEMENT/ADV ANTAGE - HMO) Shea Pares [id number] Shea J Pares 06/17/2023 1 [facility] - DOS ON OR AFTER 2022 - DUAL ELIGIBLE - GROUP HOME OPTIONS AND ONE CARE (MEDICARE REPLACEMENT/ADV ANTAGE - HMO) Shea Pares [id number] Shea J Pares 04/20/2024 1 [facility] - DOS ON OR AFTER 2022 - DUAL ELIGIBLE - GROUP HOME OPTIONS AND ONE CARE (MEDICARE REPLACEMENT/ADV ANTAGE - HMO) Shea Pares [id number] Shea J Pares Notes Date Note Type [...] [facility],[address], [place], [address], [employer] 09/27/2022 13:35:12 023 text/ht ml HPI: Member [...] process visit. ................................... ................................... ................................... ................................... . Finish Mender Note From Max Clemens: Pt reports dry [...] ................................... . Disposition: Fulfilled Petra Elmore MD [address] [place] [address],[address], [place], [address], [employer] 06/17/2023 20:04:49 024 text/ht ml HPI: mbr with multiple complaints, states experienced SOB last night where she had decided to take a diuretic, denies any Urine output at this time questioning retention , but does mention changing briefs multiple times over night, denies any Abdominal pain pressure or discomfort, no LE edema CP/N/V. per mbr B/P 153/78 HR 111. mbr requesting [facility] for evaluation.Protocol Used: Urinary SymptomsProtocol-Based Disposition: Consider [facility], WINDROWER OPERATOR, MD/FINISH REMOVER triage, PCP, or ED /Urgent Care Visit [...] Reviewed HPI SEGMD: Visit closed by [facility] end of shift before medic note transferred into [employer], so I entered it below: SummarySmartcare visit [...] this was present yesterday in visit with FINISH REMOVER as well. Pt afebrile. Lung sounds clear bilaterally. Pt concerned about possible cloudy urine as well. Pt was unable to provide urine specimen for testing. Consulted with [facility] Dr. Casas who advised continuing to monitor symptoms. Reviewed red flags for ED. Pt education provided.Services ProvidedPatient EducationDispositionFulfilledWas patient sent to ED?[facility] consulted on the case?Yes - Solange Casas MD [address] [facility],[address], [place], [address], [place] [employer] 04/23/2024 15:04:20 OBGyn Episode No OBEpisode recorded.
--- OUTSIDE RECORDS SUMMARY | 2024-09-17 16:10 | XMS_ITS | Encounter Summary ---
Author Organization [facility] Address [address] [place] [address] Care Team Providers Care Supervisor Gate Services Name Role Phone Kameron Zuñiga MD Unavailable Katya Lopez NP Unavailable Unavailab Kathy Haley MD Primary Care Prov ider Be Pacheco NP Unavailable [phone] Maycol Infante MD Unavailable Unavailable Sebastian Martinez MD Unavailable UnavailEve Blackmon MD Unavailable Elisa Romero NP Unavailable [phone] Marcus Murcia DO Unavailable Unavailable Encounter Details Date Type Department Care Team Description 04/17/2023 Investment Executive Report Medical Records [address] [place] [address] Maycol Infante MD Social History Tobacco Use [...] suspected to have Coronavirus/COVID-19? No / Unsure 04/10/2023 10:19 AM EDT documented as of this encounter Plan of Treatment Not on file documented as of this encounter Visit Diagnoses Not on filedocumented in this encounter Care Teams Supervisor Gate Services Relationship Specialty Start Date End Date Kathy Christopher MD [address] [place] [address] PCP - General Internal Medicine 01/21/22 Kameron Zuñiga MD Him Coder Cardiovascular Disease 08/04/21 Katya Lopez NP Cardiology 08/04/21 01/30/24 Be Pacheco NP [address] [place] [address] Nurse Practitioner Cardiology 10/17/22 01/30/24 Maycol Infante MD [address] [place] [address] Specialist Pulmonology 10/19/22 Sebastian Martinez MD [address] [place] [address] Specialist Ophthalmology 03/21/23 Eve Juan MD [address] [place] [address] [place] [address] Specialist UROGYNECOLOGY 03/21/23 Elisa Romero NP [address] [place] [address] [place] [address] Cardiology 01/31/24 Marcus Murcia DO [address] [place] [address] [place] [address] Specialist Physiatry 03/26/24 documented as of this encounter
--- OUTSIDE RECORDS SUMMARY | 2024-09-17 16:10 | XMS_ITS | Encounter Summary ---
Author Organization [facility] Address [address] [place] [address] Care Team Providers Care Laborer Aquatic Life Name Role Phone Kameron Zuñiga MD Unavailable Katya Lopez NP Unavailable Unavailab Kathy Haley MD Primary Care Prov ider Be Pacheco NP Unavailable [phone] Maycol Infante MD Unavailable Unavailable Sebastian Martinez MD Unavailable UnavailEve Blackmon MD Unavailable Elisa Romero NP Unavailable [phone] Marcus Murcia DO Unavailable Unavailable Encounter Details Date Type Department Care Team Description 12/09/2022 Emergency Vehicle Dispatcher Report Medical Records [address] [place] [address] Maycol Infante MD Social History Tobacco Use [...] suspected to have Coronavirus/COVID-19? No / Unsure 12/02/2022 10:01 AM EDT documented as of this encounter Plan of Treatment Not on file documented as of this encounter Visit Diagnoses Not on filedocumented in this encounter Care Teams Laborer Aquatic Life Relationship Specialty Start Date End Date Kathy Christopher MD [address] [place] [address] PCP - General Internal Medicine 01/21/22 Kameron Zuñiga MD Supervisor Soldering Cardiovascular Disease 08/04/21 Katya Lopez NP Cardiology 08/04/21 01/30/24 Be Pacheco NP [address] [place] [address] Nurse Practitioner Cardiology 10/17/22 01/30/24 Maycol Infante MD [address] [place] [address] Specialist Pulmonology 10/19/22 Sebastian Martinez MD [address] [place] [address] Specialist Ophthalmology 03/21/23 Eve Juan MD [address] [place] [address] [place] [address] Specialist UROGYNECOLOGY 03/21/23 Elisa Romero NP [address] [place] [address] [place] [address] Cardiology 01/31/24 Marcus Murcia DO [address] [place] [address] [place] [address] Specialist Physiatry 03/26/24 documented as of this encounter
--- OUTSIDE RECORDS SUMMARY | 2024-09-17 16:10 | XMS_ITS | Encounter Summary ---
Author Organization [facility] Address [address] [place] [address] Care Team Providers Care Relocation Commissioner Name Role Phone Wiley Thompson MD Primary Care Provider Kameron Cornejo MD Unavailable Katya Lopez NP Unavailable Unavailab Kathy Haley MD Primary Care Prov ider Be Pacheco NP Unavailable [phone] Maycol Infante MD Unavailable Unavailable Sebastian Martinez MD Unavailable UnavailEve Blackmon MD Unavailable Elisa Romero NP Unavailable Marcus Murcia DO Unavailable Unavailable Encounter Details Date Type Department Care Team Description 07/28/2021 Finished Goods Stock Clerk Report Medical Records [address] [place] [address] Abstract, Provider Social History Tobacco Use Types [...] on filedocumented in this encounter Care Teams Relocation Commissioner Relationship Specialty Start Date End Date Wiley Thompson MD PCP - General Internal Medicine 06/04/14 01/20/22 Kathy Christopher MD [address] [place] [address] PCP - General Internal Medicine 01/21/22 Kameron Zuñiga MD Brand Marketing Intern Cardiovascular Disease 08/04/21 Katya Lopez NP Cardiology 08/04/21 01/30/24 Be Pacheco NP [address] [place] [address] Nurse Practitioner Cardiology 10/17/22 01/30/24 Maycol Infante MD [address] [place] [address] Specialist Pulmonology 10/19/22 Sebastian Martinez MD [address] [place] [address] Specialist Ophthalmology 03/21/23 Eve Juan MD [address] [place] [address] [place] [address] Specialist UROGYNECOLOGY 03/21/23 Elisa Romero NP [address] [place] [address] [place] [address] Cardiology 01/31/24 Marcus Murcia DO [address] [place] [address] [place] [address] Specialist Physiatry 03/26/24 documented as of this encounter
--- OUTSIDE RECORDS SUMMARY | 2024-09-17 16:10 | XMS_ITS | Encounter Summary ---
Author Organization [facility] Address [address] [place] [address] Care Team Providers Care Glue Cook Name Role Phone Lance Lorenzo Primary Care Provider Unavailab Bri Cooper MD Primary Care Provider Unavailable Wiley Thompson MD Primary Care Provider Kameron Cornejo MD Unavailable Katya Lopez NP Unavailable Unavailab Kathy Haley MD Primary Care Prov ider Be Pacheco CONSULTING TECHNICAL MANAGER Unavailable [phone] Maycol Infante MD Unavailable Unavailable Sebastian Martinez MD Unavailable UnavailEve Blackmon MD Unavailable Elisa Romero NP Unavailable [phone] Marcus Murcia DO Unavailable Unavailable Encounter Details Date Type Department Care Team Description 01/02/2012 Network Coordinator Report Medical Records [address] [place] [address] Inderjit Bonilla Social History Tobacco Use Types Packs/Day Years Used Date Smoking Tobacco: Never Assessed Sex Assigned at Date Recorded Not on file Job Start Date Occupation Industry Not on file Not on file Not on file documented as of this encounter Plan of Treatment Not on file documented as of this encounter Visit Diagnoses Not on filedocumented in this encounter Care Teams Glue Cook Relationship Specialty Start Date End Date Lance Lorenzo PCP - General Internal Medicine 06/19/11 04/22/12 Bri Santacruz MD PCP - General Internal Medicine 04/23/12 06/03/14 Wiley Thompson MD PCP - General Internal Medicine 06/04/14 01/20/22 Kathy Christopher MD [address] [place] [address] PCP - General Internal Medicine 01/21/22 Kameron Zuñiga MD Compatibility Test Engineer Cardiovascular Disease 08/04/21 Katya Lopez NP Cardiology 08/04/21 01/30/24 Be Pacheco NP [address] [place] [address] Nurse Practitioner Cardiology 10/17/22 01/30/24 Maycol Infante MD [address] [place] [address] Specialist Pulmonology 10/19/22 Sebastian Martinez MD [address] [place] [address] Specialist Ophthalmology 03/21/23 Eve Juan MD [address] [place] [address] [place] [address] Specialist UROGYNECOLOGY 03/21/23 Elisa Romero NP [address] [place] [address] [place] [address] Cardiology 01/31/24 Marcus Murcia DO [address] [place] [address] [place] [address] Specialist Physiatry 03/26/24 documented as of this encounter
--- OUTSIDE RECORDS SUMMARY | 2024-09-17 16:10 | XMS_ITS | Encounter Summary ---
Author Organization [facility] Address [address] [place] [address] Care Team Providers Care Cutter Gas Name Role Phone Wiley Thompson MD Primary Care Provider Kameron Cornejo MD Unavailable Katya Lopez NP Unavailable Unavailab Kathy Haley MD Primary Care Prov ider Be Pacheco NP Unavailable [phone] Maycol Infante MD Unavailable Unavailable Sebastian Martinez MD Unavailable UnavailEve Blackmon MD Unavailable Elisa Romero NP Unavailable [phone] Marcus Murcia DO Unavailable Unavailable Reason for Visit * Reason Comments E-prescribe Rx Request Encounter Details Date Type Department Care Team Description 07/16/2021 Refill Adult Medicine [address] [id number] Pau Shultz PA [address] [place] [id number] E-prescribe Rx Request Social History Tobacco Use [...] Encounter - Maria Isabel Brady M.A. - 07/22/2021 12:20 PM EST Last office visit 06/24/21 Olmesartan filled on 06/02/21 for 90 days * Telephone Encounter - Milady Cooper - 07/22/2021 12:11 PM EST Patient would like script to be: E-PRESCRIBED/FAXED TO PHARMACY WHEN WAS THE PATIENT'S LAST APPOINTMENT IN ADULT MEDICINE? 06/24/2021 WHEN WAS THE LAST TIME THE PATIENT SAW THEIR PCP? 11/05/2020 Does patient have an upcoming appointment? No-patient refused appointment, will call back to book appointment (THE MEDICATION REQUESTED IS ON THE MED [...] N/A Patients current insurance carrier is: Payor: [facility] M[employer] / Plan: O $0 [facility] [id number] / Product Type: HMO [id number] documented in this encounter Plan of Treatment Not on file documented as of this encounter Visit Diagnoses Not on filedocumented in this encounter Care Teams Cutter Gas Relationship Specialty Start Date End Date Wiley Thompson MD PCP - General Internal Medicine 06/04/14 01/20/22 Kathy Christopher MD [address] [place] [address] PCP - General Internal Medicine 01/21/22 Kameron Zuñiga MD Dry Goods Clerk Cardiovascular Disease 08/04/21 Katya Lopez NP Cardiology 08/04/21 01/30/24 Be Pacheco NP [address] [place] [address] Nurse Practitioner Cardiology 10/17/22 01/30/24 Maycol Infante MD [address] [place] [address] Specialist Pulmonology 10/19/22 Sebastian Martinez MD [address] [place] [address] Specialist Ophthalmology 03/21/23 Eve Juan MD [address] [place] [address] [place] [address] Specialist UROGYNECOLOGY 03/21/23 Elisa Romero NP [address] [place] [address] [place] [address] Cardiology 01/31/24 Marcus Murcia DO [address] [place] [address] [place] [address] Specialist Physiatry 03/26/24 documented as of this encounter
--- OUTSIDE RECORDS SUMMARY | 2024-09-17 16:10 | XMS_ITS | Encounter Summary ---
Author Organization [facility] Address [address] [place] [address] Care Team Providers Care Geodetic Survey Director Name Role Phone Kameron Zuñiga MD Unavailable Katya Lopez NP Unavailable Unavailab Kathy Haley MD Primary Care Prov ider Be Pacheco NP Unavailable [phone] Maycol Infante MD Unavailable Unavailable Sebastian Martinez MD Unavailable UnavailEve Blackmon MD Unavailable Elisa Romero NP Unavailable [phone] Marcus Murcia DO Unavailable Unavailable Encounter Details Date Type Department Care Team Description 04/07/2023 Orders Only Medical Records [address] [place] [address] [facility] Social History Tobacco Use Types Packs/Day [...] Name Priority Date/Time Associated Diagnosis Comments OUTSIDE CT Routine 03/30/2023 documented in this encounter Results * OUTSIDE CT (03/30/2023) [facility] RADIOLOGY documented in this encounter Visit Diagnoses Not on filedocumented in this encounter Care Teams Geodetic Survey Director Relationship Specialty Start Date End Date Kathy Christopher MD [address] [place] [address] PCP - General Internal Medicine 01/21/22 Kameron Zuñiga MD Turn Out Worker Cardiovascular Disease 08/04/21 Katya Lopez NP Cardiology 08/04/21 01/30/24 Be Pacheco NP [address] [place] [address] Nurse Practitioner Cardiology 10/17/22 01/30/24 Maycol Infante MD [address] [place] [address] Specialist Pulmonology 10/19/22 Sebastian Martinez MD [address] [place] [address] Specialist Ophthalmology 03/21/23 Eve Juan MD [address] [place] [address] [place] [address] Specialist UROGYNECOLOGY 03/21/23 Elisa Romero NP [address] [place] [address] [place] [address] Cardiology 01/31/24 Marcus Murcia DO [address] [place] [address] [place] [address] Specialist Physiatry 03/26/24 documented as of this encounter
--- OUTSIDE RECORDS SUMMARY | 2024-09-17 16:10 | XMS_ITS | Encounter Summary ---
Author Organization [facility] Address [address] [place] [address] Care Team Providers Care Scale Model Maker Name Role Phone Bri Santacruz MD Primary Care Provider Unavailable Wiley Thompson MD Primary Care Provider Kameron Cornejo MD Unavailable Katya Lopez NP Unavailable Unavailab Kathy Haley MD Primary Care Prov ider Be Pacheco TRIPPER Unavailable [phone] Maycol Infante MD Unavailable Unavailable Sebastian Martinez MD Unavailable UnavailEve Blackmon MD Unavailable Elisa Romero NP Unavailable [phone] Marcus Murcia DO Unavailable Unavailable Encounter Details Date Type Department Care Team Description 01/24/2013 Release of Information Medical Records [address] [place] [address] Abstract, Provider Social History Tobacco Use Types [...] on filedocumented in this encounter Care Teams Scale Model Maker Relationship Specialty Start Date End Date Bri Santacruz MD PCP - General Internal Medicine 04/23/12 06/03/14 Wiley Thompson MD PCP - General Internal Medicine 06/04/14 01/20/22 Kathy Christopher MD [address] [place] [address] PCP - General Internal Medicine 01/21/22 Kameron Zuñiga MD Behavior Support Specialist Cardiovascular Disease 08/04/21 Katya Lopez, IRMA Cardiology 08/04/21 01/30/24 Be Pacheco NP [address] [place] [address] Nurse Practitioner Cardiology 10/17/22 01/30/24 Maycol Infante MD [address] [place] [address] Specialist Pulmonology 10/19/22 Sebastian Martinez MD [address] [place] [address] Specialist Ophthalmology 03/21/23 Eve Juan MD [address] [place] [address] [place] [address] Specialist UROGYNECOLOGY 03/21/23 Elisa Romero, IRMA [address] [place] [address] [place] [address] Cardiology 01/31/24 Marcus Murcia DO [address] [place] [address] [place] [address] Specialist Physiatry 03/26/24 documented as of this encounter
--- OUTSIDE RECORDS SUMMARY | 2024-09-17 16:10 | XMS_ITS | Encounter Summary ---
Author Organization [facility] Address [address] [place] [address] Care Team Providers Care Machinist Helper Name Role Phone Bri Santacruz MD Primary Care Provider Unavailable Wiley Thompson MD Primary Care Provider Kameron Cornejo MD Unavailable Katya Lopez NP Unavailable Unavailab Kathy Haley MD Primary Care Prov ider Be Pacheco FROTHING MACHINE OPERATOR Unavailable Maycol Infante MD Unavailable Unavailable Sebastian Martinez MD Unavailable UnavailEve Blackmon MD Unavailable Elisa Romero NP Unavailable [phone] Marcus Murcia DO Unavailable Unavailable Encounter Details Date Type Department Care Team Description 07/23/2012 Night Triage Doc Medical Records [address] [place] [address] Abstract, Provider Social History Tobacco Use Types [...] on filedocumented in this encounter Care Teams Machinist Helper Relationship Specialty Start Date End Date Bri Santacruz MD PCP - General Internal Medicine 04/23/12 06/03/14 Wiley Thompson MD PCP - General Internal Medicine 06/04/14 01/20/22 Kathy Christopher MD [address] [place] [address] PCP - General Internal Medicine 01/21/22 Kameron Zuñiga MD Corporate Health Consultant Cardiovascular Disease 08/04/21 Katya Lopez, IRMA Cardiology 08/04/21 01/30/24 Be Pacheco NP [address] [place] [address] 31128 Nurse Practitioner Cardiology 10/17/22 01/30/24 Maycol Infante MD [address] [place] [address] 05[address] Specialist Pulmonology 10/19/22 Sebastian Martinez MD [address] [place] [address] 71937 Specialist Ophthalmology 03/21/23 Eve Juan MD [address] [place] [address] [place] [address] Specialist UROGYNECOLOGY 03/21/23 Elisa Romero, IRMA [address] [place] [address] [place] [address] Cardiology 01/31/24 Marcus Murcia DO [address] [place] [address] [place] [address] Specialist Physiatry 03/26/24 documented as of this encounter
--- OUTSIDE RECORDS SUMMARY | 2024-09-17 16:10 | XMS_ITS | Encounter Summary ---
Author Organization [facility] Address [address] [place] [address] Care Team Providers Care Spooler Operator Automatic Name Role Phone Kameron Zuñiga MD Unavailable Katya Lopez NP Unavailable Unavailab Kathy Haley MD Primary Care Prov ider Be Pacheco NP Unavailable Maycol Infante MD Unavailable Unavailable Sebastian Martinez MD Unavailable UnavailEve Blackmon MD Unavailable Elisa Romero NP Unavailable [phone] Marcus Murcia DO Unavailable Unavailable Encounter Details Date Type Department Care Team Description 10/24/2022 Hospital Medical Records [address] [place] [address] Social History Tobacco Use Types Packs/Day Years [...] OUTSIDE NUCLEAR STRESS TEST Routine 10/25/2022 OUTSIDE EKG Routine 10/24/2022 OUTSIDE PLAIN FILM Routine 10/24/2022 documented in this encounter Results * OUTSIDE NUCLEAR STRESS TEST (10/25/2022) Provider Default CARDIOLOGY * OUTSIDE PLAIN FILM (10/24/2022) Provider Default RADIOLOGY * OUTSIDE EKG (10/24/2022) Provider Default CARDIOLOGY documented in this encounter Visit Diagnoses Not on filedocumented in this encounter Care Teams Spooler Operator Automatic Relationship Specialty Start Date End Date Kathy Christopher MD [address] [place] [address] 10660 PCP - General Internal Medicine 01/21/22 Kameron Zuñiga MD Operater Cardiovascular Disease 08/04/21 Katya Lopez NP Cardiology 08/04/21 01/30/24 Be Pacheco NP [address] [place] [address] 37048 Nurse Practitioner Cardiology 10/17/22 01/30/24 Maycol Infatne MD [address] [place] [address] 59893 Specialist Pulmonology 10/19/22 Sebastian Martinez MD [address] [place] [address] Specialist Ophthalmology 03/21/23 Eve Juan MD [address] [place] [address] [place] [address] Specialist UROGYNECOLOGY 03/21/23 Elisa Romero NP [address] [place] [address] Cardiology 01/31/24 Marcus Murcia DO [address] [place] [address] [place] [address] Specialist Physiatry 03/26/24 documented as of this encounter
--- OUTSIDE RECORDS SUMMARY | 2024-09-17 16:10 | XMS_ITS | Encounter Summary ---
Author Organization [facility] Address [address] [place] [address] Care Team Providers Care Optical Coating Technician Name Role Phone Kameron Zuñiga MD Unavailable Katya Lopez NP Unavailable Unavailab le Kathy Christopher MD Primary Care Prov ider Be Pacheco NP Unavailable [phone] Maycol Infante MD Unavailable Unavailable Sebastian Martinez MD Unavailable UnavailEve Blackmon MD Unavailable Elisa Romero NP Unavailable [phone] Marcus Murcia DO Unavailable Unavailable Encounter Details Date Type Department Care Team Description 06/07/2023 Cardiac Monitor Report Medical Records [address] [place] [address] Lalitha Diego, [facility]- Social History Tobacco Use Types Packs/Day Years [...] filedocumented in this encounter Care Teams Optical Coating Technician Relationship Specialty Start Date End Date Kathy Christopher MD [address] [place] [address] [id number] PCP - General Internal Medicine 01/21/22 Kameron Zuñiga MD Water Plant Pump Operator Cardiovascular Disease 08/04/21 Katya Lopez, IRMA Cardiology 08/04/21 01/30/24 Be Pacheco NP [address] [place] [address] 68417 Nurse Practitioner Cardiology 10/17/22 01/30/24 Maycol Infante MD [address] [place] [address] Specialist Pulmonology 10/19/22 Sebastian Martinez MD [address] [place] [address] Specialist Ophthalmology 03/21/23 Eve Juan MD [address] [place] [address] [place] [address] Specialist UROGYNECOLOGY 03/21/23 Elisa Romero NP [address] [place] [address] [place] [address] Cardiology 01/31/24 Marcus Murcia DO [address] [place] [address] [place] [address] Specialist Physiatry 03/26/24 documented as of this encounter
--- OUTSIDE RECORDS SUMMARY | 2024-09-17 16:10 | XMS_ITS | Encounter Summary ---
Author Organization [facility] Address [address] [place] [address] Care Team Providers Care Hall Manager Name Role Phone Kameron Zuñiga MD Unavailable Katya Lopez NP Unavailable Unavailab Kathy Haley MD Primary Care Prov ider Be Pacheco NP Unavailable [phone] Maycol Infante MD Unavailable Unavailable Sebastian Martinez MD Unavailable UnavailEve Blackmon MD Unavailable Elisa Romero NP Unavailable [phone] Marcus Murcia DO Unavailable Unavailable Reason for Visit * Reason Onset Date Comments Prior Authorization 02/15/2023 CT ABD & PEL VIS Encounter Details Date Type Department Care Team Description 02/15/2023 Telephone Adult Medicine [address] [phone] Juan Mock MD [address] [place] [address] [phone] Prior Authorization (CT ABD & PELVIS) Social History Tobacco Use Types Packs/Day Years [...] encounter Miscellaneous Notes * Telephone Encounter - Elvira Mc - 03/06/2023 1:26 PM EDT Patient made aware * Telephone Encounter - Juan Mock MD - 03/06/2023 9:13 AM EDT Spoke with the patient insurance company, [email or web address]. Appeal filed. Also spoke with the solar manufacturer's representative that I did call for the peer to peer and gave them my colntact information but nobody reached out to me. For the pool: Please inform the patient that we have filed an appeal for the denied CT scan * Telephone Encounter - Sahnnon Hoff - 03/03/2023 3:[address] Mock, I received a call from the pt's insurance company, [email or web address] regarding the P2P request. They stated that it is too late to do a P2P at this time as it needed to be completed 24hrs after the denial date and that an appeal will need to be completed instead by calling . The appeal needs to be completed by clinical staff. Thank you, Shannon Milner Prior Auth * Telephone Encounter - Juan Mock MD - 03/03/2023 2:23 PM EDT Spoke over the phone. They will contact me for the peer to peer. They did not have any medical level today. * Telephone Encounter - Shannon Hoff - 02/28/2023 4:[address] Mock, You placed an order for this patient to have a CT ABD & PELVIS, CPT code 93483. However this request was denied by the patient's insurance. If you would like to discuss this decision and set up a P2P please have someone call [phone] to set a date and time. Thank you, Shannon Milner Prior Auth * Telephone Encounter - Shannon Hoff - 02/15/2023 3:14 PM EDT [facility] AUTH PENDING VIA FAX FOR NEW CPT CODE - FORM AND CLINICALS SENT documented in this encounter Plan of Treatment Not on file documented as of this encounter Visit Diagnoses Not on filedocumented in this encounter Care Teams Hall Manager Relationship Specialty Start Date End Date Kathy Christopher MD [address] [place] [address] PCP - General Internal Medicine 01/21/22 Kameron Zuñiga MD Cvicu Rn Cardiovascular Disease 08/04/21 Katya Lopez NP Cardiology 08/04/21 01/30/24 Be Pacheco NP [address] [place] [address] 77381 Nurse Practitioner Cardiology 10/17/22 01/30/24 Maycol Infante MD [address] [place] [address] Specialist Pulmonology 10/19/22 Sebastian Martinez MD [address] [place] [address] Specialist Ophthalmology 03/21/23 Eve Juan MD [address] [place] [address] [place]rogyne[place] [address] Specialist UROGYNECOLOGY 03/21/23 Elisa Romero NP [address] [facility] [place] [address] Cardiology 01/31/24 Marcus Murcia DO [address] [facility] [place] [address] Specialist Physiatry 03/26/24 documented as of this encounter
--- OUTSIDE RECORDS SUMMARY | 2024-09-17 16:10 | XMS_ITS | Encounter Summary ---
Author Organization [facility] Address [address] [place] [address] Care Team Providers Care Game Agent Name Role Phone Bri Santacruz MD Primary Care Provider Unavailable Wiley Thompson MD Primary Care Provider Kameron Cornejo MD Unavailable Katya Lopez NP Unavailable Unavailab Kathy Haley MD Primary Care Prov ider Be Pacheco NP Unavailable [phone] Maycol Infante MD Unavailable Unavailable Sebastian Martinez MD Unavailable UnavailEve Blackmon MD Unavailable Elisa Romero NP Unavailable [phone] Marcus Murcia DO Unavailable Unavailable Encounter Details Date Type Department Care Team Description 11/07/2012 Transfer Records Medical Records [address] [place] [address] Abstract, Provider Social History Tobacco Use Types [...] on filedocumented in this encounter Care Teams Game Agent Relationship Specialty Start Date End Date Bri Santacruz MD PCP - General Internal Medicine 04/23/12 06/03/14 Wiley Thompson MD PCP - General Internal Medicine 06/04/14 01/20/22 Kathy Christopher MD [address] [place] [address] PCP - General Internal Medicine 01/21/22 Kameron Zuñiga MD Canteen Attendant Cardiovascular Disease 08/04/21 Katya Lopez NP Cardiology 08/04/21 01/30/24 Be Pacheco NP [address] [place] [address] 50187 Nurse Practitioner Cardiology 10/17/22 01/30/24 Maycol Infante MD [address] [place] [address] 67535 Specialist Pulmonology 10/19/22 Sebastian Martinez MD [address] [place] [address] 92222 Specialist Ophthalmology 03/21/23 Eve Juan MD [address] [place] [address] [place] [address] Specialist UROGYNECOLOGY 03/21/23 Elisa Romero NP [address] [place] [address] [place] [address] Cardiology 01/31/24 Marcus Murcia DO [address] [place] [address] [place] [address] Specialist Physiatry 03/26/24 documented as of this encounter
--- OUTSIDE RECORDS SUMMARY | 2024-09-17 16:10 | XMS_ITS | Encounter Summary ---
Author Organization [facility] Address [address] [place] [address] Care Team Providers Care Test Specialist Name Role Phone Wiley Thompson MD Primary Care Provider Kameron Cornejo MD Unavailable Katya Lopez NP Unavailable Unavailab Kathy Haley MD Primary Care Prov ider Be Pacheco NP Unavailable [phone] Maycol Infante MD Unavailable Unavailable Sebastian Martinez MD Unavailable UnavailEve Blackmon MD Unavailable Elisa Romero NP Unavailable [phone] Marcus Murcia DO Unavailable Unavailable Reason for Referral * Specialist (Routine) - Closed Specialty Diagnoses / Procedures Referred By Contac t Referred To Contact Cardiology / Cardiac rehabilitation Procedures REFERRAL TO CARDIAC REHABILITATION Wiley Thompson MD [address] [place] [address] External Cardiac Rehab Referral ID Status Reason Start Date Expiration Date V isits Requested Visits Authorized DUPLICATE REQUEST Closed 10/21/2014 10/21/2015 1 1 Reason for Visit * Reason Onset Date Comments Provider Call Back 10/21/2014 Encounter Details Date Type Department Care Team Description 10/21/2014 Telephone Adult [address] [phone] Wiley Thompson MD Provider Call Back Social History Tobacco Use [...] Telephone Encounter - Erica Lassiter M.A. - 10/22/2014 4:39 PM EDT Message left for Harvey to return my call. * Telephone Encounter - Wiley Thompson - 10/21/2014 4:52 PM EDT Referal done * Telephone Encounter - Erica Lassiter M.A. - 10/21/2014 3:03 PM EDT Harvey from [facility] is looking for a p/a for cardiac rehab for pt, states the code that the insurance is using is V57 * Telephone Encounter - Abad Cervantes - 10/21/2014 1:15 PM EDT Caller requesting call back from provider: Is the caller the patient? NO If caller is not the patient, what is the callers name? Harvey Callers relationship to patient? If person calling is not the patient themselves, is there a verbal release in FYI or permanent comments for this person: NO Reason for call back: Harvey is calling about the prior authorization. He states he called the insurance company and they have no information on the prior auth Caller offered to speak with the nurse for assistance: YES Response: Patient offered to speak with nurse for assistance and patient agreed. Message forwarded to nurse. documented in this encounter Plan of Treatment Not on file documented as of this encounter Visit Diagnoses Not on filedocumented in this encounter Care Teams Test Specialist Relationship Specialty Start Date End Date Wiley Thompson MD PCP - General Internal Medicine 06/04/14 01/20/22 Kathy Christopher MD [address] [place] [address] PCP - General Internal Medicine 01/21/22 Kameron Zuñiga MD Bacteriology Technician Cardiovascular Disease 08/04/21 Katya Lopez NP Cardiology 08/04/21 01/30/24 Be Pacheco NP [address] [place] [address] 00896 Nurse Practitioner Cardiology 10/17/22 01/30/24 Maycol Infante MD [address] [place] [address] 87173 Specialist Pulmonology 10/19/22 Sebastian Martinez MD [address] [place], [place] [phone] Specialist Ophthalmology 03/21/23 Eve Juan MD [address] [place] [address] [place] [address] Specialist UROGYNECOLOGY 03/21/23 Elisa Romero NP [address] [place] [address] [place] [address] Cardiology 01/31/24 Marcus Murcia DO [address] [place] [address] [place] [address] Specialist Physiatry 03/26/24 documented as of this encounter
--- OUTSIDE RECORDS SUMMARY | 2024-09-17 16:10 | XMS_ITS | Encounter Summary ---
Author Organization [facility] Address [address] [place] [address] Care Team Providers Care Evaluation Analyst Name Role Phone Wiley Thompson MD Primary Care Provider Kameron Cornejo MD Unavailable Katya Lopez NP Unavailable Unavailab Kathy Haley MD Primary Care Prov ider Be Pacheco NP Unavailable [phone] Maycol Infante MD Unavailable Unavailable Sebastian Martinez MD Unavailable UnavailEve Blackmon MD Unavailable Elisa Romero NP Unavailable Marcus Murcia DO Unavailable Unavailable Encounter Details Date Type Department Care Team Description 07/28/2021 Hospital Medical Records [address] [place] [address] Abstract, Provider Social History Tobacco Use Types [...] on filedocumented in this encounter Care Teams Evaluation Analyst Relationship Specialty Start Date End Date Wiley Thompson MD PCP - General Internal Medicine 06/04/14 01/20/22 Kathy Christopher MD [address] [place] [address] 95266 PCP - General Internal Medicine 01/21/22 Kameron Zuñiga MD Hazmat Cdl A Driver Cardiovascular Disease 08/04/21 Katya Lopez NP Cardiology 08/04/21 01/30/24 Be Pacheco NP [address] [place] [address] 02860 Nurse Practitioner Cardiology 10/17/22 01/30/24 Maycol Infante MD [address] [place] [address] 19903 Specialist Pulmonology 10/19/22 Sebastian Martinez MD [address] [place] [address] 16184 Specialist Ophthalmology 03/21/23 Eve Juan MD [address] [place] [address] [place] [address] Specialist UROGYNECOLOGY 03/21/23 Elisa Romero NP [address] [place] [address] [place] [address] Cardiology 01/31/24 Marcus Murcia DO [address] [place] [address] [place] [address] Specialist Physiatry 03/26/24 documented as of this encounter
--- OUTSIDE RECORDS SUMMARY | 2024-09-17 16:10 | XMS_ITS | Encounter Summary ---
Author Organization [facility] Address [address] [place] [address] Care Team Providers Care Trust Vault Clerk Name Role Phone Bri Santacruz MD Primary Care Provider Unavailable Wiley Thompson MD Primary Care Provider Kameron Cornejo MD Unavailable Katya Lopez NP Unavailable Unavailab Kathy Haley MD Primary Care Prov ider Be Pacheco SUPERVISOR Unavailable [phone] Maycol Infante MD Unavailable Unavailable Sebastian Martinez MD Unavailable UnavailEve Blackmon MD Unavailable Elisa Romero NP Unavailable [phone] Marcus Murcia DO Unavailable Unavailable Encounter Details Date Type Department Care Team Description 07/19/2012 Release of Information Medical Records [address] [place] [address] Abstract, Provider Social History Tobacco Use Types [...] on filedocumented in this encounter Care Teams Trust Vault Clerk Relationship Specialty Start Date End Date Bri Santacruz MD PCP - General Internal Medicine 04/23/12 06/03/14 Wiley Thompson MD PCP - General Internal Medicine 06/04/14 01/20/22 Kathy Christopher MD [address] [place] [address] PCP - General Internal Medicine 01/21/22 Kameron Zuñiga MD Vacuum Technician Cardiovascular Disease 08/04/21 Katya Lopez, IRMA Cardiology 08/04/21 01/30/24 Be Pacheco NP [address] [place] [address]81 Nurse Practitioner Cardiology 10/17/22 01/30/24 Maycol Infante MD [address] [place] [address] 72050 Specialist Pulmonology 10/19/22 Sebastian Martinez MD [address] [place] [address] 6[address]67 Specialist Ophthalmology 03/21/23 Eve Juan MD [address] [place] [address] [place] [address] Specialist UROGYNECOLOGY 03/21/23 Elisa Rmoero, IRMA [address] [place] [address] [place] [address] Cardiology 01/31/24 Marcus Murcia DO [address] [place] [address] [place] [address] Specialist Physiatry 03/26/24 documented as of this encounter
== END 2024-09-17 14:49 | disposition home or self-care (01) ==
PROVIDERS: PCP Internal Medicine; Visit Provider Physician Assistant
DX: Z13.9 Encounter for screening, unspecified (principal); N76.1 Subacute and chronic vaginitis

== ENCOUNTER 2024-09-17 13:35 | Outpatient (REF) | payer OTHER, SELFPAY ==
--- OUTSIDE RECORDS SUMMARY | 2024-09-17 17:53 | XMS_ITS | Encounter Summary ---
Author Organization [facility] Address [address] [place] [address] Care Team Providers Care Heating And Blending Supervisor Name Role Phone Wiley Thompson MD Primary Care Provider Kameron Cornejo MD Unavailable Katya Lopez NP Unavailable Unavailab Kathy Haley MD Primary Care Prov ider Be Pacheco NP Unavailable [phone] Maycol Infante MD Unavailable Unavailable Sebastian Martinez MD Unavailable UnavailEve Blackmon MD Unavailable Elisa Romero NP Unavailable [phone] Marcus Murcia DO Unavailable Unavailable Reason for Visit * Reason Onset Date Comments DME Request 07/11/2019 Encounter Details Date Type Department Care Team Description 07/11/2019 Telephone Adult Medicine [address] [address] Wiley Thompson MD DME Request Social History Tobacco Use Types Packs/Day [...] * Telephone Encounter - Elisa Worthington - 07/11/2019 1:31 PM EST Name of Product: Oxygen Specific information about product portable machine # Needed 1 Reason patient is asking for this supply? Patient Active Problem List Diagnosis Code ??? Asthma J45.909 ??? HTN (hypertension) I10 ??? Insomnia G47.00 ??? GERD (gastroesophageal reflux disease) K21.9 ??? Allergic rhinitis J30.9 ??? Gastroparesis K31.84 ??? Osteoarthritis M19.90 ??? Anxiety F41.9 ??? Solitary pulmonary nodule R91.1 ??? Hyperlipidemia E78.5 ??? Coronary artery disease I25.10 ??? Tubular adenoma of colon D12.6 ??? Diverticulosis K57.90 ??? Diabetes mellitus type 2 with neurological manifestations ([facility]) E11.49 ??? Recurrent HSV (herpes simplex virus) B00.9 ??? IBS (irritable bowel syndrome) K58.9 ??? Iron deficiency anemia due to chronic blood loss D50.0 ??? CKD (chronic kidney disease) stage 3, GFR 30-59 ml/min ([facility]) N18.3 ??? Chronic shoulder pain M25.519, G89.29 ??? Lower extremity edema R60.0 ??? Subclinical hyperthyroidism E05.90 ??? Obstructive sleep apnea moderate HAYLEY 16 with nocturnal hypoxia G47.33 ??? COPD (chronic obstructive pulmonary disease) ([facility]) J44.9 ??? Supplemental oxygen dependent Z99.81 ??? Obese E66.9 ??? Hearing decreased, bilateral H91.93 ??? Mammographic microcalcification R92.0 Have you received this supply before? If yes , when?: no Have you discussed the need for this supply with a provider at a recent visit? NO If yes, with who and when? When completed: Fax to other office/MD at fax # [facility] Have you told the patient it will take 7-10 days for completion of this request? YES documented in this encounter Plan of Treatment Not on file documented as of this encounter Visit Diagnoses Not on filedocumented in this encounter Care Teams Heating And Blending Supervisor Relationship Specialty Start Date End Date Wiley Thompson MD PCP - General Internal Medicine 06/04/14 01/20/22 Kathy Christopher MD [address] [place] [address] PCP - General Internal Medicine 01/21/22 Kameron Zuñiga MD Healthcare Translator Cardiovascular Disease 08/04/21 Katya Lopez NP Cardiology 08/04/21 01/30/24 Be Pacheco NP [address] [place] [address] Nurse Practitioner Cardiology 10/17/22 01/30/24 Maycol Infante MD [address] [place] [address] Specialist Pulmonology 10/19/22 Sebastian Martinez MD [address] [place] [address] Specialist Ophthalmology 03/21/23 Eve Juan MD [address] [place] [address] [place] [address] Specialist UROGYNECOLOGY 03/21/23 Elisa Romero NP [address] [place] [address] [place] [address] Cardiology 01/31/24 Marcus Murcia DO [address] [place] [address] [place] [address] Specialist Physiatry 03/26/24 documented as of this encounter
--- OUTSIDE RECORDS SUMMARY | 2024-09-17 17:53 | XMS_ITS | Encounter Summary ---
Author Organization [facility] Address [address] [place] [address] Care Team Providers Care Propagator Laborer Name Role Phone Kameron Zuñiga MD Unavailable Katya Lopez NP Unavailable Unavailab le Kathy Christopher MD Primary Care Prov ider Be Pacheco NP Unavailable [phone] Maycol Infante MD Unavailable Unavailable Sebastian Martinez MD Unavailable UnavailEve Blackmon MD Unavailable Elisa Romero NP Unavailable [phone] Marcus Murcia DO Unavailable Unavailable Encounter Details Date Type Department Care Team Description 01/01/2024 Rand Butting Machine Operator Report Medical Records [address] [place] [address] Marcus Murcia DO Social History Tobacco Use [...] on filedocumented in this encounter Care Teams Propagator Laborer Relationship Specialty Start Date End Date Kathy Christopher MD [address] [place], [place] [phone] PCP - General Internal Medicine 01/21/22 Kameron Zuñiga MD Fisher Mussel Cardiovascular Disease 08/04/21 Katya Lopez NP Cardiology 08/04/21 01/30/24 Be Pacheco NP [address] [place] [address] Nurse Practitioner Cardiology 10/17/22 01/30/24 Maycol Infante MD [address] [place] [address] Specialist Pulmonology 10/19/22 Sebastian Martinez MD [address] [place] [address] Specialist Ophthalmology 03/21/23 Eve Juan MD [address] [place] [address] [place] [address] Specialist UROGYNECOLOGY 03/21/23 Elisa Romero NP [address] [place] [address] [place] [address] Cardiology 01/31/24 Marcus Murcia DO [address] [place] [address] [place] [address] Specialist Physiatry 03/26/24 documented as of this encounter
--- OUTSIDE RECORDS SUMMARY | 2024-09-17 17:53 | XMS_ITS | Encounter Summary ---
Author Organization [facility] Address [address] [place] [address] Care Team Providers Care Processor Grain Name Role Phone Wiley Thompson MD Primary Care Provider Kameron Cornejo MD Unavailable Katya Lopez NP Unavailable Unavailab Kathy Haley MD Primary Care Prov ider Be Pacheco NP Unavailable [phone] Maycol Infante MD Unavailable Unavailable Sebastian Martinez MD Unavailable UnavailEve Blackmon MD Unavailable Elisa Romero NP Unavailable [phone] Marcus Murcia DO Unavailable Unavailable Encounter Details Date Type Department Care Team Description 05/05/2017 Room Cleaner Report Medical Records [address] [place] [address] Talia Mckay PA-C Social History Tobacco Use [...] on filedocumented in this encounter Care Teams Processor Grain Relationship Specialty Start Date End Date Wiley Thompson MD PCP - General Internal Medicine 06/04/14 01/20/22 Kathy Christopher MD [address] [place] [address] PCP - General Internal Medicine 01/21/22 Kameron Zuñiga MD Wan Support Specialist Cardiovascular Disease 08/04/21 Katya Lopez NP Cardiology 08/04/21 01/30/24 Be Pacheco NP [address] [place] [address] Nurse Practitioner Cardiology 10/17/22 01/30/24 Maycol Infante MD [address] [place] [address] Specialist Pulmonology 10/19/22 Sebastian Martinez MD [address] [place] [address] Specialist Ophthalmology 03/21/23 Eve Juan MD [address] [place] [address] [place] [address] Specialist UROGYNECOLOGY 03/21/23 Elisa Romero NP [address] [place] [address] [place] [address] Cardiology 01/31/24 Marcus Murcia DO [address] [place] [address] [place] [address] Specialist Physiatry 03/26/24 documented as of this encounter
--- OUTSIDE RECORDS SUMMARY | 2024-09-17 17:53 | XMS_ITS | Encounter Summary ---
Author Organization [facility] Address [address] [place] [address] Care Team Providers Care Hand Rounder Name Role Phone Wiley Thompson MD Primary Care Provider Kameron Cornejo MD Unavailable Katya Lopez NP Unavailable Unavailab Kathy Haley MD Primary Care Prov ider Be Pacheco NP Unavailable [phone] Maycol Infante MD Unavailable Unavailable Sebastian Martinez MD Unavailable UnavailEve Blackmon MD Unavailable Elisa Romero NP Unavailable Marcus Murcia DO Unavailable Unavailable Encounter Details Date Type Department Care Team Description 02/12/2019 Educational Specialist Report Medical Records [address] [place] [address] Matti Bansal Social History Tobacco Use Types [...] filedocumented in this encounter Care Teams Hand Rounder Relationship Specialty Start Date End Date Wiley Thompson MD PCP - General Internal Medicine 06/04/14 01/20/22 Kathy Christopher MD [address] [place] [address] PCP - General Internal Medicine 01/21/22 Kameron Zuñiga MD Chucking And Boring Machine Operator Cardiovascular Disease 08/04/21 Katya Lopez NP Cardiology 08/04/21 01/30/24 Be Pacheco NP [address] [place] [address] Nurse Practitioner Cardiology 10/17/22 01/30/24 Maycol Infante MD [address] [place] [address] Specialist Pulmonology 10/19/22 Sebastian Martinez MD [address] [place] [address] Specialist Ophthalmology 03/21/23 Eve Juan MD [address] [place] [address] [place] [address] Specialist UROGYNECOLOGY 03/21/23 Elisa Romero NP [address] [place] [address] [place] [address] Cardiology 01/31/24 Marcus Murcia DO [address] [place] [address] [place] [address] Specialist Physiatry 03/26/24 documented as of this encounter
--- OUTSIDE RECORDS SUMMARY | 2024-09-17 17:53 | XMS_ITS | Clinical Summary ---
Author Organization [facility] Address [address] [place] [address] Phone Care Team Providers Care Senior Partner Name Role Phone Kathy Perez MD Primary [...] 12/10/2018 Obstructive sleep apnea 11/21/2018 Overview (04/23/2024): [facility] Home Sleep Apnea Test: Date 11/18/2018; Wt 192#; BMI 33; HAYLEY 16, AI 1; HI 14; Unclassified apneas 0; Obstructive apneas 10; Central apneas 0; Mixed apneas 0; hypopneas 126; average oxygen saturation 88% (lowest 73% with saturations <88% for 5% or more of study) [facility] Polysomnogram treatment study. Date 01/11/2019. Wt [...] x1 06/2015 Coronary artery disease invo lving [place] coronary artery of [place] heart without angina pectoris 01/21/2015 Overview (04/23/2024): [...] Gastroparesis 07/17/2012 Overview (04/23/2024): Dr. Stephenson at [address] [place] [address] GERD (gastroesophageal reflux disease) 3 Insomnia 07/17/2012 [...] Description 09/12/2024 11:30 AM EDT Ancillary Procedure [facility] - [address] [place] [address] Coronary artery disease involving [place] coronary artery of [place] heart without angina pectoris; Peripheral edema; SOTELO (dyspnea on exertion); Chronic heart failure with preserved ejection fraction (CMS/HCC) 09/06/2024 Telephone Adult [address] [address] Kathy Nino MD Referral 08/27/2024 11:33 AM EDT Anesthesia Event [facility] [address] [place] [address] Negro Velasco MD 08/27/2024 10:04 AM EDT - 08/27/2024 11:59 PM EDT Hospital Encounter [facility] [address] [place] [address] Marcus Murcia DO Chang, Daniel J, MD Radiculopathy, cervical region Discharge Disposition: Home or Self Care 08/27/2024 9:08 AM EDT - 08/27/2024 11:59 PM EDT Hospital Encounter [facility] X[facility] [address] [place] [phone] Pain Discharge Disposition: Home or Self Care 08/13/2024 Telephone [facility] - [facility] [address] [facility] [address] [place] [phone] Kameron Zuñiga MD testing 07/30/2024 1:15 PM EST Office Visit Adult Medicine [address] [address] Kathy Nino MD 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) (Primary Dx); Primary hypertension; Mixed hyperlipidemia; Stage 3a chronic kidney disease (CMS/HCC); Chronic obstructive pulmonary disease, unspecified COPD type (CMS/HCC); Congestive heart failure, unspecified HF chronicity, unspecified heart failure type (CMS/HCC); Urinary incontinence, unspecified type 07/30/2024 8:20 AM EST Anesthesia Event [facility] [address] [place] [address] Negro Velasco MD Fox, Jillian, [place] 07/30/2024 8:12 AM EST - 07/30/2024 11:59 PM EST Hospital Encounter [facility] [address] [place] [address] Azimov, Marcus, Negro Robledo MD Barnes, Tyanna R, CRNA Radiculopathy, cervical region Discharge Disposition: Home or Self Care 07/24/2024 9:30 AM EST Ancillary Procedure [facility] - [address] [place] [address] Coronary artery disease involving [place] coronary artery of [place] heart without angina pectoris; SOTELO (dyspnea on exertion) 07/22/2024 2:45 PM EST - 07/22/2024 11:59 PM EST Hospital Encounter [address] [address] Pneumonia of both lower lobes due to infectious organism Discharge Disposition: Home or Self Care 07/18/2024 Telephone Adult Medicine [address] [phone] Amy Carlton LPN Fitting for DME (Faxed form from [employer]); Appointment 06/27/2024 10:30 AM EST Office Visit Adult Medicine [address] [phone] Pau Shultz PA Pneumonia of both lower lobes due to infectious organism (Primary Dx); Nausea and vomiting, unspecified vomiting type; Diarrhea, unspecified type; Type 2 diabetes mellitus with stage 3a chronic kidney disease, without long-term current use of insulin ([facility]) 06/24/2024 Telephone Adult Medicine [address] [phone] Kathy Nino MD [facility] Follow-up from Last 3 Months Immunizations Name Administration Dates Next Due Influenza trivalent, 0.5mL ( Fluad) 65yo and older 03/26/2024,02/28/2023,03/28/2022,03/22,03/13/2019,03/02/2018,03/01/2017 ,03/30/2016 Influenza, Unspecified 03/10/2022,2020,02/24/2020,04/06,05/06/2014,03/05/2013 [facility] SARS-CoV-2 COVID -19, vector-nr, [id number], preservative free [...] PROCEDURE:TUBAL LIGATION OTHER SURGICAL HISTORY 2007 PROCEDURE: [place] CORRECTION HAMMERT[place]; COMMENT: FOOT SURGERY PROCEDURE: HISTORICAL FOOT SURGERY; COMMENT: 18 y/o bunionectomy UPPER GASTROINTESTINAL ENDOSCOPY 03/22/2012 PROCEDURE: [place] UPPER GI ENDOSCOPY PERFORMED; COMMENT: Normal study UPPER GASTROINTESTINAL ENDOSCOPY 11/27/2015 PROCEDURE: [place] UPPER GI ENDOSCOPY PERFORMED; COMMENT: Gastritis and polyp. Normal Esophagus and duodenum. UPPER GASTROINTESTINAL ENDOSCOPY 2012 PROCEDURE: [place] UPPER GI ENDOSCOPY PERFORMED; COMMENT: FOR GERD BLADDER SUSPENSION 05/29/2018 PROCEDURE: HISTORICAL BLADDER SUSPENSION CYSTOSCOPY 03/18/2019 PROCEDURE: HISTORICAL CYSTOSCOPY; COMMENT: Normal COLONOSCOPY 06/2005 PROCEDURE: HISTORICAL COLONOSCOPY; COMMENT: tubular adenoma COLONOSCOPY 06/2010 PROCEDURE: HISTORICAL COLONOSCOPY; COMMENT: negative COLONOSCOPY 12/16/2015 PROCEDURE: HISTORICAL COLONOSCOPY; COMMENT: tubular adenoma CARDIAC CATHETERIZATION 09/26/2014 PROCEDURE: HISTORICAL CARDIAC CATH; COMMENT: RCA stent Dr David REYNAGA UPPER GASTROINTESTINAL ENDOSCOPY 08/18/2004 PROCEDURE: [place] UPPER GI ENDOSCOPY PERFORMED FOOT SURGERY 12/2013 [...] (HCC) Diabetes mellitus (CMS/HCC) DX:D iabetes mellitus ([facility]) Asthma 07/17/2012 DX:Asthma HTN (hypertension) 07/17/2012 [...] mellitus type 2 wit h neurological manifestations ([facility]) 08/01/2015 DX:Diabetes abby itus type 2 with neurological manifestations ([facility]); COMMENT: A1C 6.5 09/28 transfer records [...] Description 10/03/2024 9:50 AM EDT Office Visit [facility] [address] [address] Kameron Zuñiga MD [address] [address] 01/28/2025 1:15 PM EDT Office Visit Adult Medicine [address] [address] Kathy Perez MD [address] [place] [address] Health Maintenance Due Date Last Done Comments [...] 11:03 AM EDT Coronary artery disease involving [place] coronary artery of [place] heart without angina pectoris Hyperlipidemia, unspecified hyperlipidemia [...] 11:50 AM EST Coronary artery disease involving [place] coronary artery of [place] heart without angina pectoris SOTELO (dyspnea on [...] of2 resultswithin the time period is included. [facility] Glucose POCT 101(H) 70 - 100 mg/dL 08/27/2024 9:34 AM EDT [facility] Blood Capillary blood specimen / Unknown 08/27/2024 9:33 AM EDT 08/27/2024 9:35 AM EDT [facility] Provider Poct LAB POINT OF CARE TEST DOCKED DEVICE UNSOLICITED RESULTS Final Result [facility] [address] [place] [address], [place] [phone] * Lipid panel with reflex to direct LDL (08/26/2024 11:03 AM EDT) [facility] Cholesterol 141 0 - 200 mg/dL LAB CHEMISTRY METHOD 08/26/2024 2:15 PM EDT [facility] Triglycerides 117 0 - 150 mg/dL LAB CHEMISTRY METHOD 08/26/2024 2:15 PM EDT [facility] HDL 55 >=40 mg/dL LAB CHEMISTRY METHOD 08/26/2024 2:15 PM EDT [facility] LDL Calculated 63 0 - 100 mg/dL LAB CHEMISTRY METHOD 08/26/2024 2:15 PM EDT [facility] VLDL Cholesterol Gus 23.4 mg/dL LAB CHEMISTRY METHOD 08/26/2024 2:15 PM EDT [facility] Non HDL Chol. (LDL+VLDL) 86 <145 mg/dL LAB CHEMISTRY METHOD 08/26/2024 2:15 PM EDT [facility] Chol/HDL Ratio 2.6 0.0 - 4.4 LAB CHEMISTRY METHOD 08/26/2024 2:15 PM EDT [facility] Blood Venous blood specimen / Unknown Venipuncture / Unknown 08/26/2024 11:03 AM EDT 08/26/2024 11:03 AM EDT Elisa Romero NP LAB BLOOD ORDERABLES Final Result Performing Organization Address City/[facility]/ZIP Co de Phone Number [facility] [address] [place] [address], * Magnesium (08/26/2024 11:03 AM EDT) Magnesium 2.0 1.9 - 2.6 mg/dL LAB CHEMISTRY METHOD 08/26/2024 2:12 PM EDT [facility] Blood Venous blood specimen / Unknown Venipuncture / Unknown 08/26/2024 11:03 AM EDT 08/26/2024 11:03 AM EDT Elisa Romero NP LAB BLOOD ORDERABLES Final Result [facility] [address] [place] [address], [place] [phone] * Hemoglobin A1c (08/26/2024 11:03 AM EDT) Hemoglobin A1C 6.4 <6.5 % LAB CHEMISTRY METHOD 08/26/2024 1:50 PM EDT [facility] Mean Bld Glu Estim. 137 mg/dL LAB CHEMISTRY METHOD 08/26/2024 1:50 PM T [facility] Blood Venous blood specimen / Unknown Venipuncture / Unknown 08/26/2024 11:03 AM EDT 08/26/2024 11:03 AM EDT us Kathy Perez MD LAB BLOOD ORDERABL ES Final Result [facility] [address] [place] [address], [place] [phone] * (ABNORMAL) Basic metabolic panel (08/26/2024 11:03 AM EDT) Sodium 141 133 - 145 mmol/L LAB CHEMISTRY METHOD 08/26/2024 2:12 PM [facility] Potassium 4.1 3.5 - 5.5 mmol/L LAB CHEMISTRY METHOD 08/26/2024 2:12 PM [facility] Chloride 104 96 - 110 mmol/L LAB CHEMISTRY METHOD 08/26/2024 2:12 PM [facility] CO2 26 21 - 32 mmol/L LAB CHEMISTRY METHOD 08/26/2024 2:12 PM [facility] Anion Gap 11 3 - 11 LAB CHEMISTRY METHOD 08/26/2024 2:12 PM [facility] Glucose 104(H) 70 - 100 mg/dL LAB CHEMISTRY METHOD 08/26/2024 2:12 PM [facility] BUN 18 5 - 25 mg/dL LAB CHEMISTRY METHOD 08/26/2024 2:12 PM [facility] Creatinine 1.32(H) 0.50 - 1.10 mg/dL LAB CHEMISTRY METHOD 08/26/2024 2:12 PM [facility] eGFR 41(L) >=60 mL/min/1. 73m2 LAB CHEMISTRY METHOD 08/26/2024 2:12 PM [facility] Comment:Calculation based on the??Chronic Kidney Disease Epidemiology Collaboration (CKD-EPI) equation refit??without adjustment for race. BUN/Creatinine Ratio 13.6 LAB CHEMISTRY METHOD 08/26/2024 2:12 PM EDT [facility] Calcium 9.5 8.5 - 10.5 mg/dL LAB CHEMISTRY METHOD 08/26/2024 2:12 PM EDT [facility] Blood Venous blood specimen / Unknown Venipuncture / Unknown 08/26/2024 11:03 AM EDT 08/26/2024 11:03 AM EDT Elisa Romero NP LAB BLOOD ORDERABLES Final Result [facility] [address] [place] [address], [place] [phone] * NM LEXISCAN STRESS TEST W/ MYOCARDIAL [...] Signed Date: 07/22/2024 17:44 ET Workstation ID: [id number] Transcribed By: Self Edit Transcribed Date: 07/22/2024 17:42 ET Narrative 07/22/2024 5:44 PM EST HISTORY: pneumonia Dx at [facility]. 4 week f.u TECHNIQUE: PA and lateral radiographs of the chest COMPARISON: Chest radiograph from 06/23/2023 FINDINGS: There is a normal cardiomediastinal silhouette. ??Atherosclerosis of the thoracic aorta. ??Increased airspace opacities within the right lower lung zone. ??Mild degenerative changes of the thoracic spine. Procedure Note Moo Coyle MD - 07/22/2024 HISTORY: pneumonia Dx at [facility] [place]. 4 week f.u TECHNIQUE: PA and lateral [...] Signed Date: 07/22/2024 17:44 ET Workstation ID: [id number] Transcribed By: Self Edit Transcribed Date: 07/22/2024 17:42 ET Pau LOPEZ IMG XR PROCEDURES Final Result * Urine Albumin Creatinine Ratio (03/26/2024) Pathologist [facility] Urine Albumin Creatinine Ratio Abstracted Historical Provider HEALTH MAINTENANCE Final Result * Falls Risk Assessment (03/26/2024) Falls Risk Assessment Abstracted Historical Provider HEALTH MAINTENANCE Final Result * Depression Screening (03/26/2024) Pathologist [facility] Depression Screening Abstracted Historical Provider HEALTH MAINTENANCE Final Result * Diabetes Foot Exam (12/04/2023) [facility] Diabetes: Annual Foot Exam Abstracted Historical Provider HEALTH MAINTENANCE Final Result * Diabetes Eye Exam (11/28/2023) Pathologist [facility] Diabetes: Annual Retina Eye Exam Abstracted Comment:External Completion of test per patient (Patient reports normal results) Historical Provider HEALTH MAINTENANCE Final Result * Hepatitis C Screening (01/18/2016) Pathologist [facility] Hepatitis C Screening Abstracted Historical Provider HEALTH MAINTENANCE Final Result from Last 3 Months or Most Recently Relevant to Health Maintenance Insurance [facility] MEDICARE Member Subscriber Plan / Payer (Ef fective 2012-Present) Name:Shea Ramirez Relation to Subscriber:Self Name:Shea Ramirez Payer ID:[id number] Group ID:[id number] Type:Not on file Address: [place] [address] [address] [id number] Care Teams Senior Partner Relationship Specialty Start Date End Date Kathy Perez MD [address] [place] [address] PCP - General Internal Medicine 07/22/24
--- OUTSIDE RECORDS SUMMARY | 2024-09-17 17:53 | XMS_ITS | Encounter Summary ---
Author Organization [facility] Address [address] [place] [address] Care Team Providers Care Business Administration Program Chair Name Role Phone Wiley Thompson MD Primary Care Provider Kameron Cornejo MD Unavailable Katya Lopez NP Unavailable Unavailab Kathy Haley MD Primary Care Prov ider Be Pacheco NP Unavailable [phone] Maycol Infante MD Unavailable Unavailable Sebastian Martinez MD Unavailable UnavailEve Blackmon MD Unavailable Elisa Romero NP Unavailable Marcus Murcia DO Unavailable Unavailable Encounter Details Date Type Department Care Team Description 04/22/2019 Release of Information Medical Records [address] [place] [address] Abstract, Provider Social History Tobacco Use Types [...] on filedocumented in this encounter Care Teams Business Administration Program Chair Relationship Specialty Start Date End Date Wiley Thompson MD PCP - General Internal Medicine 06/04/14 01/20/22 Kathy Christopher MD [address] [place] [address] PCP - General Internal Medicine 01/21/22 Kameron Zuñiga MD Negotiator Cardiovascular Disease 08/04/21 Katya Lopez NP Cardiology 08/04/21 01/30/24 Be Pacheco NP [address] [place] [address] Nurse Practitioner Cardiology 10/17/22 01/30/24 Maycol Infante MD [address] [place] [address] Specialist Pulmonology 10/19/22 Sebastian Martinez MD [address] [place] [address] Specialist Ophthalmology 03/21/23 Eve Juan MD [address] [place] [address] [place] [address] Specialist UROGYNECOLOGY 03/21/23 Elisa Romero NP [address] [place] [address] [place] [address] Cardiology 01/31/24 Marcus Murcia DO [address] [place] [address] [place] [address] Specialist Physiatry 03/26/24 documented as of this encounter
--- OUTSIDE RECORDS SUMMARY | 2024-09-17 17:53 | XMS_ITS | Encounter Summary ---
Author Organization [facility] Address [address] [place] [address] Care Team Providers Care Correctional Counselor Name Role Phone Kameron Zuñiga MD Unavailable Katya Lopez NP Unavailable Unavailab Kathy Haley MD Primary Care Prov ider Be Pacheco NP Unavailable [phone] Maycol Infante MD Unavailable Unavailable Sebastian Martinez MD Unavailable UnavailEve Blackmon MD Unavailable Elisa Romero NP Unavailable [phone] Marcus Murcia DO Unavailable Unavailable Encounter Details Date Type Department Care Team Description 09/19/2023 Orders Only Medical Records [address] [place] [address] Lalitha Diego FNP-BC Social History Tobacco Use Types Packs/Day Years [...] Name Priority Date/Time Associated Diagnosis Comments OUTSIDE ULTRASOUND Routine 09/06/2023 documented in this encounter Results * OUTSIDE ULTRASOUND (09/06/2023) Lalitha [facility] documented in this encounter Visit Diagnoses Not on filedocumented in this encounter Care Teams Correctional Counselor Relationship Specialty Start Date End Date Kathy Christopher MD [address] [place] [address] PCP - General Internal Medicine 01/21/22 Kameron Zuñiga MD Channel Process Supervisor Cardiovascular Disease 08/04/21 Katya Lopez NP Cardiology 08/04/21 01/30/24 Be Pacheco NP [address] [place] [address] Nurse Practitioner Cardiology 10/17/22 01/30/24 Maycol Infante MD [address] [place] [address] Specialist Pulmonology 10/19/22 Sebastian Martinez MD [address] [place] [address] Specialist Ophthalmology 03/21/23 Eve Juan MD [address] [place] [address] [place] [address] Specialist UROGYNECOLOGY 03/21/23 Elisa Romero NP [address] [place] [address] [place] [address] Cardiology 01/31/24 Marcus Murcia DO [address] [place] [address] [place] [address] Specialist Physiatry 03/26/24 documented as of this encounter
--- OUTSIDE RECORDS SUMMARY | 2024-09-17 17:53 | XMS_ITS | Encounter Summary ---
Author Organization [facility] Address [address] [place] [address] Care Team Providers Care Certified Detention Deputy Name Role Phone Wiley Thompson MD Primary Care Provider Kameron Cornejo MD Unavailable Katya Lopez NP Unavailable Unavailab Kathy Haley MD Primary Care Prov ider eB Pacheco NP Unavailable [phone] Maycol Infante MD Unavailable Unavailable Sebastian Martinez MD Unavailable UnavailEve Blackmon MD Unavailable Elisa Romero NP Unavailable [phone] Marcus Murcia DO Unavailable Unavailable Encounter Details Date Type Department Care Team Description 01/10/2019 Orders Only General Surgery - [address] [place] [address] Ivan Reddy MD [address] [place] [address] [id number] Mammographic microcalcification (Primary Dx) Social History Tobacco Use Types [...] as of this encounter Visit Diagnoses Diagnosis Mammographic microcalcification- Primary documented in this encounter Care Teams Certified Detention Deputy Relationship Specialty Start Date End Date Wiley Thompson MD PCP - General Internal Medicine 06/04/14 01/20/22 Kathy Christopher MD [address] [place] [address] PCP - General Internal Medicine 01/21/22 Kameron Zuñiga MD Chuck Splitter Cardiovascular Disease 08/04/21 Katya Lopez NP Cardiology 08/04/21 01/30/24 Be Pacheco NP [address] [place] [address] Nurse Practitioner Cardiology 10/17/22 01/30/24 Maycol Infante MD [address] [place] [address] Specialist Pulmonology 10/19/22 Sebastian Martinez MD [address] [place], [place] [phone] Specialist Ophthalmology 03/21/23 Eve Juan MD [address] [place] [address] [place] [address] Specialist UROGYNECOLOGY 03/21/23 Elisa Romero NP [address] [place] [address] [place] [address] Cardiology 01/31/24 Marcus Murcia DO [address] [place] [address] [place] [address] Specialist Physiatry 03/26/24 documented as of this encounter
--- OUTSIDE RECORDS SUMMARY | 2024-09-17 17:53 | XMS_ITS | Encounter Summary ---
Author Organization [facility] Address [address] [place] [address] Care Team Providers Care Geomatics Professor Name Role Phone Wiley Thompson MD Primary Care Provider Kameron Cornejo MD Unavailable Katya Lopez NP Unavailable Unavailab Kathy Haley MD Primary Care Prov ider Be Pacheco NP Unavailable [phone] Maycol Infante MD Unavailable Unavailable Sebastian Martinez MD Unavailable UnavailEve Blackmon MD Unavailable Elisa Romero NP Unavailable [phone] Marcus Murcia DO Unavailable Unavailable Reason for Visit * Reason Comments E-prescribe Rx Request imdur 30 mg po qd Encounter Details Date Type Department Care Team Description 01/20/2022 Refill Cardio PVCA Diag Testing [address] [facility] [address] [place], [place] [id number] Katya Lopez NP E-prescribe Rx Request (imdur 30 mg po qd ) Social History Tobacco Use Types Packs/Day Years [...] suspected to have Coronavirus/COVID-19? No / Unsure 01/06/2022 12:23 PM EDT documented as of this encounter Miscellaneous Notes * Telephone Encounter - Lissy Mendoza RN - 01/20/2022 1:27 PM EDT Imdur 30 mg qd #90 . Has appt next week with AC documented in this encounter Plan of Treatment Not on file documented as of this encounter Visit Diagnoses Not on filedocumented in this encounter Care Teams Geomatics Professor Relationship Specialty Start Date End Date Wiley Thompson MD PCP - General Internal Medicine 06/04/14 01/20/22 Trina Rizo, Kathy Fried MD [address] [place] [address] PCP - General Internal Medicine 01/21/22 Kameron Zuñiga MD Business Transformation Analyst Cardiovascular Disease 08/04/21 Katya Loepz NP Cardiology 08/04/21 01/30/24 Be Pacheco NP [address] [place] [address] Nurse Practitioner Cardiology 10/17/22 01/30/24 Maycol Infante MD [address] [place] [address] Specialist Pulmonology 10/19/22 Sebastian Martinez MD [address] [place], [place] [phone] Specialist Ophthalmology 03/21/23 Eve Juan MD [address] [place] [address] [place] [address] Specialist UROGYNECOLOGY 03/21/23 Elisa Romero NP [address] [place] [address] [place] [address] Cardiology 01/31/24 Marcus Murcia DO [address] [facility] [place] [address] Specialist Physiatry 03/26/24 documented as of this encounter
--- OUTSIDE RECORDS SUMMARY | 2024-09-17 17:53 | XMS_ITS | Encounter Summary ---
Author Organization [facility] Address [address] [place] [address] Care Team Providers Care Embossing Machine Operator Name Role Phone Wiley Thompson MD Primary Care Provider Kameron Cornejo MD Unavailable Katya Lopez NP Unavailable Unavailab Kathy Haley MD Primary Care Prov ider Be Pacheco NP Unavailable [phone] Maycol Infante MD Unavailable Unavailable Sebastian Martinez MD Unavailable UnavailEve Blackmon MD Unavailable Elisa Romero NP Unavailable [phone] Marcus Murcia DO Unavailable Unavailable Encounter Details Date Type Department Care Team Description 09/02/2021 Load Dispatcher Report Medical Records [address] [place] [address] Maycol Infante MD Social History Tobacco Use [...] on filedocumented in this encounter Care Teams Embossing Machine Operator Relationship Specialty Start Date End Date Wiley Thompson MD PCP - General Internal Medicine 06/04/14 01/20/22 Kathy Christopher MD [address] [place] [address] PCP - General Internal Medicine 01/21/22 Kameron Zuñiga MD Hr Representative Cardiovascular Disease 08/04/21 Katya Lopez NP Cardiology 08/04/21 01/30/24 Be Pacheco NP [address] [place] [address] 60660 Nurse Practitioner Cardiology 10/17/22 01/30/24 Maycol Infante MD [address] [place] [address] Specialist Pulmonology 10/19/22 Sebastian Martinez MD [address] [place] [address] Specialist Ophthalmology 03/21/23 Eve Juan MD [address] [place] [address] [place] [address] Specialist UROGYNECOLOGY 03/21/23 Elisa Romero NP [address] [place] [address] [place] [address] Cardiology 01/31/24 Marcus Murcia DO [address] [place] [address] [place] [address] Specialist Physiatry 03/26/24 documented as of this encounter
--- OUTSIDE RECORDS SUMMARY | 2024-09-17 17:53 | XMS_ITS | Encounter Summary ---
Author Organization [facility] Address [address] [place] [address] Care Team Providers Care Motor Inspection Mechanic Name Role Phone Wiley Thompson MD Primary Care Provider Kameron Cornejo MD Unavailable Katya Lopez NP Unavailable Unavailab Kathy Haley MD Primary Care Prov ider Be Pacheco NP Unavailable [phone] Maycol Infante MD Unavailable Unavailable Sebastian Martinez MD Unavailable UnavailEve Blackmon MD Unavailable Elisa Romero NP Unavailable [phone] Marcus Murcia DO Unavailable Unavailable Encounter Details Date Type Department Care Team Description 08/26/2021 SCAN Medical Records [address] [place] [address] Abstract, Provider Social History Tobacco Use Types [...] on filedocumented in this encounter Care Teams Motor Inspection Mechanic Relationship Specialty Start Date End Date Wiley Thompson MD PCP - General Internal Medicine 06/04/14 01/20/22 Kathy Christopher MD [address] [place] [address] PCP - General Internal Medicine 01/21/22 Kameron Zuñiga MD Legal Support Manager Cardiovascular Disease 08/04/21 Katya Lopez NP Cardiology 08/04/21 01/30/24 Be Pacheco NP [address] [place] [address] Nurse Practitioner Cardiology 10/17/22 01/30/24 Maycol Infante MD [address] [place] [address] Specialist Pulmonology 10/19/22 Sebastian Martinez MD [address] [place] [address] Specialist Ophthalmology 03/21/23 Eve Juan MD [address] [place] [address] [place] [address] Specialist UROGYNECOLOGY 03/21/23 Elisa Romero NP [address] [place] [address] [place] [address] Cardiology 01/31/24 Marcus Murcia DO [address] [place] [address] [place] [address] Specialist Physiatry 03/26/24 documented as of this encounter
--- OUTSIDE RECORDS SUMMARY | 2024-09-17 17:53 | XMS_ITS | Encounter Summary ---
Author Organization [facility] Address [address] [place] [address] Care Team Providers Care Risk Intern Name Role Phone Kameron Zuñiga MD Unavailable Katya Lopez NP Unavailable Unavailab le Kathy Christopher MD Primary Care Prov ider Be Pacheco NP Unavailable [phone] Maycol Infante MD Unavailable Unavailable Sebastian Martinez MD Unavailable UnavailEve Blackmon MD Unavailable Elisa Romero NP Unavailable [phone] Marcus Murcia DO Unavailable Unavailable Encounter Details Date Type Department Care Team Description 09/04/2023 Art Librarian Report Medical Records [address] [place] [address] Lalitha Diego, [facility]- Social History Tobacco Use Types Packs/Day [...] on filedocumented in this encounter Care Teams Risk Intern Relationship Specialty Start Date End Date Kathy Christopher MD [address] [place] [address] [phone] PCP - General Internal Medicine 01/21/22 Kameron Zuñiga MD Fabric Worker Fitter Cardiovascular Disease 08/04/21 Katya Lopez, IRMA Cardiology 08/04/21 01/30/24 Be Pacheco NP [address] [place] [address] Nurse Practitioner Cardiology 10/17/22 01/30/24 Maycol Infante MD [address] [place] [address] Specialist Pulmonology 10/19/22 Sebastian Martinez MD [address] [place] [address] Specialist Ophthalmology 03/21/23 Eve Juan MD [address] [place] [address] [place] [address] Specialist UROGYNECOLOGY 03/21/23 Elisa Romero NP [address] [place] [address] [place] [address] Cardiology 01/31/24 Marcus Murcia DO [address] [place] [address] [place] [address] Specialist Physiatry 03/26/24 documented as of this encounter
--- OUTSIDE RECORDS SUMMARY | 2024-09-17 17:53 | XMS_ITS | Encounter Summary ---
Author Organization [facility] Address [address] [place] [address] Care Team Providers Care Cooler Tender Name Role Phone Wiley Thompson MD Primary Care Provider Kameron Cornejo MD Unavailable Katya Lopez NP Unavailable Unavailab Kathy Haley MD Primary Care Prov ider Be Pacheco NP Unavailable [phone] Maycol Infante MD Unavailable Unavailable Sebastian Martinez MD Unavailable UnavailEve Blackmon MD Unavailable Elisa Romero NP Unavailable [phone] Marcus Murcia DO Unavailable Unavailable Reason for Visit * Reason Comments E-prescribe Rx Request Encounter Details Date Type Department Care Team Description 04/17/2019 Refill Adult Medicine [address] [address] Wiley Thompson MD E-prescribe Rx Request Social [...] Telephone Encounter - Yuli Laguerre M.A. - 04/17/2019 4:34 PM EDT Please review for Care Team out of the office this afternoon, thank you . Lab Results Component Value Date CHOL 123 03/13/2019 LDL 47 03/13/2019 HDL 45 03/13/2019 TRIG 158 03/13/2019 SGOT 16 03/13/2019 SGPT 19 03/13/2019 * Telephone Encounter - Ally Pop - 04/17/2019 10:08 AM EDT Patient would like script to be: E-PRESCRIBED/FAXED TO PHARMACY WHEN WAS THE PATIENT'S LAST APPOINTMENT IN ADULT MEDICINE? 04-09-18 WHEN WAS THE LAST TIME THE PATIENT SAW THEIR PCP? 02-09-19 Does patient have an upcoming appointment? Yes 04-26-19 (THE MEDICATION REQUESTED IS ON THE MED [...] N/A Patients current insurance carrier is: Pay[facility] / Plan: O $0 [facility] [id number] / Product Type: HMO [id number] documented in this encounter Plan of Treatment Not on file documented as of this encounter Visit Diagnoses Diagnosis CAD (coronary artery disease), [place] coronary artery Coronary atherosclerosis of [place] coronary artery documented in this encounter Care Teams Cooler Tender Relationship Specialty Start Date End Date Wiley Thompson MD PCP - General Internal Medicine 06/04/14 01/20/22 Kathy Christopher MD [address] [place] [address] PCP - General Internal Medicine 01/21/22 Kameron Zuñiga MD Abrasive Mixer Helper Cardiovascular Disease 08/04/21 Katya Lopez NP Cardiology 08/04/21 01/30/24 Be Pacheco NP [address] [place] [address] 49581 Nurse Practitioner Cardiology 10/17/22 01/30/24 Maycol Infante MD [address] [place], [place] [address] Specialist Pulmonology 10/19/22 Sebastian Martinez MD [address] [place] [address] Specialist Ophthalmology 03/21/23 Eve Juan MD [address] [place] [address] [place] [address] Specialist UROGYNECOLOGY 03/21/23 Elisa Romero NP [address] [place] [address] [place] [address] Cardiology 01/31/24 Marcus Murcia DO [address] [place] [address] [place] [address] Specialist Physiatry 03/26/24 documented as of this encounter
--- OUTSIDE RECORDS SUMMARY | 2024-09-17 17:53 | XMS_ITS | Encounter Summary ---
Author Organization [facility] Address [address] [place] [address] Care Team Providers Care Machine Precision Engraver Name Role Phone Wiley Thompson MD Primary Care Provider Kameron Cornejo MD Unavailable Katya Lopez NP Unavailable Unavailab Kathy Haley MD Primary Care Prov ider Be Pacheco NP Unavailable [phone] Maycol Infante MD Unavailable Unavailable Sebastian Martinez MD Unavailable UnavailEve Blackmon MD Unavailable Elisa Romero NP Unavailable Marcus Murcia DO Unavailable Unavailable Encounter Details Date Type Department Care Team Description 01/15/2019 Orders Only Medical Records [address] [place] [address] Abstract, Provider Mammographic microcalcification Social History Tobacco [...] Procedure Name Priority Date/Time Associated Diagnosis Comments CO BX BREAST W/DEVICE 1ST LESION STEREOTACTIC GUID Routine 01/14/2019 Mammographic microcalcification documented in this encounter Results * BX BREAST W DEVICE 1ST LESION STEREOTACTIC GUIDE (01/14/2019) Ivan Reddy MD MAMMOGRAPHY documented in this encounter Visit Diagnoses Diagnosis Mammographic microcalcification documented in this encounter Care Teams Machine Precision Engraver Relationship Specialty Start Date End Date Wiley Thompson MD PCP - General Internal Medicine 06/04/14 01/20/22 Kathy Christopher MD [address] [place] [address] PCP - General Internal Medicine 01/21/22 Kameron Zuñiga MD Punch Machine Hand Cardiovascular Disease 08/04/21 Katya Lopez NP Cardiology 08/04/21 01/30/24 Be Pacheco NP [address] [place] [address] Nurse Practitioner Cardiology 10/17/22 01/30/24 Maycol Infante MD [address] [place] [address] Specialist Pulmonology 10/19/22 Sebastian Martinez MD [address] [place], [place] [phone] Specialist Ophthalmology 03/21/23 Eve Juan MD [address] [place] [address] [place] [address] Specialist UROGYNECOLOGY 03/21/23 Elisa Romero NP [address] [place] [address] [place] [address] Cardiology 01/31/24 Marcus Murcia DO [address] [place] [address] [place] [address] Specialist Physiatry 03/26/24 documented as of this encounter
--- OUTSIDE RECORDS SUMMARY | 2024-09-17 17:53 | XMS_ITS | Encounter Summary ---
Author Organization [facility] Address [address] [place] [address] Care Team Providers Care Chemic Mangler Name Role Phone Wiley Thompson MD Primary Care Provider Kameron Cornejo MD Unavailable Katya Lopez TRAFFIC WORKFORCE REPRESENTATIVE Unavailable Unavailab Kathy Christopher MD Primary Care Prov ider Be Pacheco NP Unavailable [phone] Maycol Infante MD Unavailable Unavailable Sebastian Martinez MD Unavailable UnavailEve Blackmon MD Unavailable Elisa Romero NP Unavailable [phone] Marcus Murcia DO Unavailable Unavailable Encounter Details Date Type Department Care Team Description 02/09/2017 PNO Controlled Substance Contract Medical Records [address] [place] [address] Abstract, Provider Social History Tobacco Use Types [...] Internal Medicine 06/04/14 01/20/22 Kathy Christopher MD [address] [place] [address]20 PCP - General Internal Medicine 01/21/22 Kameron Zuñiga MD Outbound Call Center Representative Cardiovascular Disease 08/04/21 Katya Lopez, IRMA Cardiology 08/04/21 01/30/24 Be Pacheco NP [address] [place] [address]127 Nurse Practitioner Cardiology 10/17/22 01/30/24 Maycol Infante MD [address] [place] [address] Specialist Pulmonology 10/19/22 Sebastian Martinez MD [address] [place] [address] Specialist Ophthalmology 03/21/23 Eve Juan MD [address] [place] [address] [place] [address] Specialist UROGYNECOLOGY 03/21/23 Elisa Romero NP [address] [place] [address] [place] [address] Cardiology 01/31/24 Marcus Murcia DO [address] [place] [address] [place] [address] Specialist Physiatry 03/26/24 documented as of this encounter
--- OUTSIDE RECORDS SUMMARY | 2024-09-17 17:53 | XMS_ITS | Encounter Summary ---
Author Organization [facility] Address [address] [place] [address] Care Team Providers Care Junior Database Administrator Name Role Phone Wiley Thompson MD Primary Care Provider Kameron Cornejo MD Unavailable Katya Lopez DISCOVERY GUIDE Unavailable Unavailab Kathy Christopher MD Primary Care Prov ider Be Pacheco NP Unavailable [phone] Maycol Infante MD Unavailable Unavailable Sebastian Martinez MD Unavailable UnavailEve Blackmon MD Unavailable Elisa Romero NP Unavailable [phone] Marcus Murcia DO Unavailable Unavailable Encounter Details Date Type Department Care Team Description 08/30/2019 Aromatherapist Report Medical Records [address] [place] [address] Maycol Infante MD Social History Tobacco Use [...] filedocumented in this encounter Care Teams Junior Database Administrator Relationship Specialty Start Date End Date Wiley Thompson MD PCP - General Internal Medicine 06/04/14 01/20/22 Kathy Christopher MD [address] [place] [address] PCP - General Internal Medicine 01/21/22 Kameron Zuñiga MD Door Person Cardiovascular Disease 08/04/21 Katya Lopez, IRMA Cardiology 08/04/21 01/30/24 Be Pacheco NP [address] [place] [address]365 Nurse Practitioner Cardiology 10/17/22 01/30/24 Maycol Infante MD [address] [place] [address] Specialist Pulmonology 10/19/22 Sebastian Martinez MD [address] [place] [address] Specialist Ophthalmology 03/21/23 Eve Juan MD [address] [place] [address] [place] [address] Specialist UROGYNECOLOGY 03/21/23 Elisa Romero NP [address] [place] [address] [place] [address] Cardiology 01/31/24 Marcus Murcia DO [address] [place] [address] [place] [address] Specialist Physiatry 03/26/24 documented as of this encounter
--- OUTSIDE RECORDS SUMMARY | 2024-09-17 17:53 | XMS_ITS | Encounter Summary ---
Author Organization [facility] Address [address] [place] [address] Care Team Providers Care Manganese Wheeler Name Role Phone Wiley Thompson MD Primary Care Provider Kameron Cornejo MD Unavailable Katya Lopez NP Unavailable Unavailab Kathy Haley MD Primary Care Prov ider Be Pacheco NP Unavailable [phone] Maycol Infante MD Unavailable Unavailable Sebastian Martinez MD Unavailable UnavailEve Blackmon MD Unavailable Elisa Romero NP Unavailable [phone] Marcus Murcia DO Unavailable Unavailable Encounter Details Date Type Department Care Team Description 08/19/2021 Legal Compliance Officer Report Medical Records [address] [place] [address] Arun Hui MD Social History Tobacco Use [...] on filedocumented in this encounter Care Teams Manganese Wheeler Relationship Specialty Start Date End Date Wiley Thompson MD PCP - General Internal Medicine 06/04/14 01/20/22 Kathy Christopher MD [address] [place] [address] PCP - General Internal Medicine 01/21/22 Kameron Zuñiga MD Line Patrolman Cardiovascular Disease 08/04/21 Katya Lopez NP Cardiology 08/04/21 01/30/24 Be Pacheco NP [address] [place] [address] Nurse Practitioner Cardiology 10/17/22 01/30/24 Maycol Infante MD [address] [place] [address] Specialist Pulmonology 10/19/22 Sebastian Martinez MD [address] [place], [place] [phone] Specialist Ophthalmology 03/21/23 Eve Juan MD [address] [place] [address] [place] [address] Specialist UROGYNECOLOGY 03/21/23 Elisa Romero NP [address] [place] [address] [place] [address] Cardiology 01/31/24 Marcus Murcia DO [address] [place] [address] [place] [address] Specialist Physiatry 03/26/24 documented as of this encounter
--- OUTSIDE RECORDS SUMMARY | 2024-09-17 17:53 | XMS_ITS | Encounter Summary ---
Author Organization [facility] Address [address] [place] [address] Care Team Providers Care Glass Ribbon Machine Operator Name Role Phone Wiley Thompson MD Primary Care Provider Kameron Cornejo MD Unavailable Katya Lopez NP Unavailable Unavailab Kathy Haley MD Primary Care Prov ider Be Pacheco NP Unavailable [phone] Maycol Infante MD Unavailable Unavailable Sebastian Martinez MD Unavailable UnavailEve Blackmon MD Unavailable Elisa Romero NP Unavailable [phone] Marcus Murcia DO Unavailable Unavailable Encounter Details Date Type Department Care Team Description 11/02/2021 Telephone Cardio PVCA Diag Testing [address] [facility] [address] [place], [place] [address] Kameron Zuñiga MD [address] [place] [address] [id number] Social History Tobacco Use Types Packs/Day Years [...] encounter Miscellaneous Notes * Telephone Encounter - Ilene Jon C.M.A. - 11/02/2021 1:46 PM EDT Noted thank you * Telephone Encounter - Kameron Zuñiga MD - 11/02/2021 1:43 PM EDT I spoke to the patient. She sounds totally fine. Little bit of leg swelling at the end of the day and some shortness of breath when ambulating. No need for the emergency room. We will get a try little bit of Lasix 20 mg daily. She will get labs in a week. All of the orders are in. * Telephone Encounter - Ilene Jon C.M.A. - 11/02/2021 11:29 AM EDT FYI Pts dtr will inform pt about ER recommendations. Jaimie expressed that Shea its : Petrified of getting covid. She'd rather than to go to the Hosp. She states that you advised calling the officeif she had any symptoms. She cont's to experience CP along with SOTELO, + orthopnea. * Telephone Encounter - Jessica Esqueda PA-C - 11/02/2021 11:15 AM EDT Yes needs to go to ER. Thanks. You can let her know Dr. Zuñiga is rounding at [facility] this week * Telephone Encounter - Ilene Jon C.M.A. - 11/02/2021 11:07 AM EDT I spoke w/ Jaimie pts dtr. C/o SOTELO with minimal activity + Orthopnea and using 02 at night time. She only uses O2 when she's SOB. BLE, dtr didn't have her Wt. Log on hand. Not on any diuretic. Uses fresh garlic and other spices and very little sea salt For her meats. Please, advise. * Telephone Encounter - Jessica Esqueda PA-C - 11/02/2021 10:46 AM EDT Triage team- see message from Patricia Kirkland below. can you assist and call this patient to get more information for me? Thanks so much * Telephone Encounter - Ana Valenzuela C.M.A. - 11/02/2021 10:37 AM EDT Shea called and left voicemail on my extension, She states she is retaining water, She called clinic and they told her to go to ER. She was requesting to speak with . Dr Zara Reesing Katya REYNAGA out. documented in this encounter Plan of Treatment Not on file documented as of this encounter Visit Diagnoses Not on filedocumented in this encounter Care Teams Glass Ribbon Machine Operator Relationship Specialty Start Date End Date Wiley Thompson MD PCP - General Internal Medicine 06/04/14 01/20/22 Kathy Christopher MD [address] [place] [address] PCP - General Internal Medicine 01/21/22 Kameron Zuñiga MD Gravity Flow Irrigator Cardiovascular Disease 08/04/21 Katya Lopez NP Cardiology 08/04/21 01/30/24 Be Pacheco NP [address] [place] [address] Nurse Practitioner Cardiology 10/17/22 01/30/24 Maycol Infante MD [address] [place], [place] [address] Specialist Pulmonology 10/19/22 Sebastian Martinez MD [address] [place] [address] Specialist Ophthalmology 03/21/23 Eve Juan MD [address] [place] [address] [place] [address] Specialist UROGYNECOLOGY 03/21/23 Elisa Romero NP [address] [place] [address] [place] [address] Cardiology 01/31/24 Marcus Murcia DO [address] [place] [address] [place] [address] Specialist Physiatry 03/26/24 documented as of this encounter
--- OUTSIDE RECORDS SUMMARY | 2024-09-17 17:53 | XMS_ITS | Encounter Summary ---
Author Organization [facility] Address [address] [place] [address] Care Team Providers Care Oyster Farmer Name Role Phone Kameron Zuñiga MD Unavailable Katya Lopez NP Unavailable Unavailab Kathy Haley MD Primary Care Prov ider Be Pacheco NP Unavailable [phone] Maycol Infante MD Unavailable Unavailable Sebastian Martinez MD Unavailable UnavailEve Blackmon MD Unavailable Elisa Romero NP Unavailable [phone] Marcus Murcia DO Unavailable Unavailable Encounter Details Date Type Department Care Team Description 10/20/2023 Orders Only Medical Records [address] [place] [id number] [facility] Social History Tobacco Use Types Packs/Day [...] * OUTSIDE LAB (10/04/2023) [facility] documented in this encounter Visit Diagnoses Not on filedocumented in this encounter Care Teams Oyster Farmer Relationship Specialty Start Date End Date Kathy Christopher MD [address] [place] [address] PCP - General Internal Medicine 01/21/22 Kameron Zuñiga MD Practical Nursing Faculty Cardiovascular Disease 08/04/21 Katya Lopez NP Cardiology 08/04/21 01/30/24 Be Pacheco NP [address] [place] [address]59 Nurse Practitioner Cardiology 10/17/22 01/30/24 Maycol Infante MD [address] [place] [address] Specialist Pulmonology 10/19/22 Sebastian Martinez MD [address] [place] [address] Specialist Ophthalmology 03/21/23 Eve Juan MD [address] [place] [address] [place] [address] Specialist UROGYNECOLOGY 03/21/23 Elisa Romero NP [address] [place] [address] [place] [address] Cardiology 01/31/24 Marcus Murcia DO [address] [place] [address] [place] [address] Specialist Physiatry 03/26/24 documented as of this encounter
--- OUTSIDE RECORDS SUMMARY | 2024-09-17 17:53 | XMS_ITS | Encounter Summary ---
Author Organization [facility] Address [address] [place] [address] Care Team Providers Care Medical Economics Consultant Name Role Phone Wiley Thompson MD Primary Care Provider Kameron Cornejo MD Unavailable Katya Lopez NP Unavailable Unavailab Kathy Haley MD Primary Care Prov ider Be Pacheco NP Unavailable [phone] Maycol Infante MD Unavailable Unavailable Sebastian Martinez MD Unavailable UnavailEve Blackmon MD Unavailable Elisa Romero NP Unavailable [phone] Marcus Murcia DO Unavailable Unavailable Reason for Visit * Reason Onset Date Comments Echocardiogram 04/13/2017 Encounter Details Date Type Department Care Team Description 04/13/2017 Telephone Cardiology - [place] [address] [place] [address] [phone] Chhaya Whatley, ROMINA [address] [place] [address] [phone] Echocardiogram Social History Tobacco Use Types Packs/Day Years [...] encounter Miscellaneous Notes * Telephone Encounter - Cyndy Foster - 04/14/2017 8:07 AM EDT [facility] Approved 04/18/2017- 06/17/2017 * Telephone Encounter - Cyndy Foster - 04/13/2017 2:39 PM EDT Form faxed to [facility] for auth * Telephone Encounter - Ijeoma Villa - 04/13/2017 2:09 PM EDT Shea is having an echocardiogram done on 04/18/17 and she has [facility] ins. Does this ins require andauth? Thank you Ijeoma in cardiology. documented in this encounter Plan of Treatment Not on file documented as of this encounter Visit Diagnoses Not on filedocumented in this encounter Care Teams Medical Economics Consultant Relationship Specialty Start Date End Date Wiley Thompson MD PCP - General Internal Medicine 06/04/14 01/20/22 Kathy Christopher MD [address] [place] [address] PCP - General Internal Medicine 01/21/22 Kameron Zuñiga MD Occupational Medicine Officer Cardiovascular Disease 08/04/21 Katya Lopez NP Cardiology 08/04/21 01/30/24 Be Pacheco NP [address] [place] [address] Nurse Practitioner Cardiology 10/17/22 01/30/24 Maycol Infante MD [address] [place] [address] Specialist Pulmonology 10/19/22 Sebastian Martinez MD [address] [place] [address] Specialist Ophthalmology 03/21/23 Eve Juan MD [address] [place] [address] [place] [address] Specialist UROGYNECOLOGY 03/21/23 Elisa Romero NP [address] [facility]Sent[facility] [place] [address] Cardiology 01/31/24 Marcus Murcia DO [address] [facility]nec[facility] [address] Specialist Physiatry 03/26/24 documented as of this encounter
--- OUTSIDE RECORDS SUMMARY | 2024-09-17 17:53 | XMS_ITS | Encounter Summary ---
Author Organization [facility] Address [address] [place] [address] Care Team Providers Care Grain Packer Name Role Phone Bri Santacruz MD Primary Care Provider Unavailable Wiley Thompson MD Primary Care Provider Kameron Cornejo MD Unavailable Katya Lopez NP Unavailable Unavailab Kathy Haley MD Primary Care Prov ider Be Pacheco SET OFF PRESS OPERATOR Unavailable [phone] Maycol Infante MD Unavailable Unavailable Sebastian Martinez MD Unavailable UnavailEve Blackmon MD Unavailable Elisa Romero NP Unavailable [phone] Marcus Murcia DO Unavailable Unavailable Encounter Details Date Type Department Care Team Description 03/15/2013 Release of Information Medical Records [address] [place] [id number] Abstract, Provider Social History Tobacco Use Types [...] on filedocumented in this encounter Care Teams Grain Packer Relationship Specialty Start Date End Date Bri Santacruz MD PCP - General Internal Medicine 04/23/12 06/03/14 Wiley Thompson MD PCP - General Internal Medicine 06/04/14 01/20/22 Kathy Christopher MD [address] [place] [address] PCP - General Internal Medicine 01/21/22 Kameron Zuñiga MD Manager Sales Training Cardiovascular Disease 08/04/21 Katya Lopez, IRMA Cardiology 08/04/21 01/30/24 Be Pacheco NP [address] [place] [address] Nurse Practitioner Cardiology 10/17/22 01/30/24 Maycol Infante MD [address] [place] [address] Specialist Pulmonology 10/19/22 Sebastian Martinez MD [address] [place] [address] Specialist Ophthalmology 03/21/23 Eve Juan MD [address] [place] [address] [place] [address] Specialist UROGYNECOLOGY 03/21/23 Elisa Romero, IRMA [address] [place] [address] [place] [address] Cardiology 01/31/24 Marcus Murcia DO [address] [place] [address] [place] [address] Specialist Physiatry 03/26/24 documented as of this encounter
--- OUTSIDE RECORDS SUMMARY | 2024-09-17 17:53 | XMS_ITS | Encounter Summary ---
Author Organization [facility] Address [address] [place] [address] Care Team Providers Care Certified Nurse Name Role Phone Wiley Thompson MD Primary Care Provider Kameron Cornejo MD Unavailable Katya Lopez NP Unavailable Unavailab Kathy Haley MD Primary Care Prov ider Be Pacheco NP Unavailable [phone] Maycol Infante MD Unavailable Unavailable Sebastian Matrinez MD Unavailable UnavailEve Blackmon MD Unavailable Elisa Romero NP Unavailable Marcus Murcia DO Unavailable Unavailable Encounter Details Date Type Department Care Team Description 02/28/2019 Primary Care Coordinator Report Medical Records [address] [place] [address] Vivek Johnson Social History Tobacco Use Types [...] on filedocumented in this encounter Care Teams Certified Nurse Relationship Specialty Start Date End Date Wiley Thompson MD PCP - General Internal Medicine 06/04/14 01/20/22 Kathy Christopher MD [address] [place] [address] PCP - General Internal Medicine 01/21/22 Kameron Zuñiga MD Manager Risk Cardiovascular Disease 08/04/21 Katya Lopez NP Cardiology 08/04/21 01/30/24 Be Pacheco NP [address] [place] [address] Nurse Practitioner Cardiology 10/17/22 01/30/24 Maycol Infante MD [address] [place] [address] Specialist Pulmonology 10/19/22 Sebastian Martinez MD [address] [place] [address] Specialist Ophthalmology 03/21/23 Eve Juan MD [address] [place] [address] [place] [address] Specialist UROGYNECOLOGY 03/21/23 Elisa Romero NP [address] [place] [address] [place] [address] Cardiology 01/31/24 Marcus Murcia DO [address] [place] [address] [place] [address] Specialist Physiatry 03/26/24 documented as of this encounter
--- OUTSIDE RECORDS SUMMARY | 2024-09-17 17:53 | XMS_ITS | Encounter Summary ---
Author Organization [facility] Address [address] [place] [address] Care Team Providers Care Lamination Spinner Name Role Phone Wiley Thompson MD Primary Care Provider Kameron Cornejo MD Unavailable Katya Lopez PAN CLEANER Unavailable Unavailab Kathy Haley MD Primary Care Prov ider Be Pacheco PAN CLEANER Unavailable [phone] Maycol Infante MD Unavailable Unavailable Sebastian Martinez MD Unavailable UnavailEve Blackmon MD Unavailable Elisa Romero NP Unavailable [phone] Marcus Murcia DO Unavailable Unavailable Encounter Details Date Type Department Care Team Description 01/15/2018 Merchandising Assistant Report Medical Records [address] [place] [address] Asya Waller, IRMA Social History Tobacco Use [...] filedocumented in this encounter Care Teams Lamination Spinner Relationship Specialty Start Date End Date Wiley Thompson MD PCP - General Internal Medicine 06/04/14 01/20/22 Kathy Christopher MD [address] [place] [address] PCP - General Internal Medicine 01/21/22 Kameron Zuñiga MD Corn Husker Machine Operator Cardiovascular Disease 08/04/21 Katya Lopez, IRMA Cardiology 08/04/21 01/30/24 Be Pacheco NP [address] [place] [address] Nurse Practitioner Cardiology 10/17/22 01/30/24 Maycol Infante MD [address] [place] [address] Specialist Pulmonology 10/19/22 Sebastian Martinez MD [address] [place] [address] Specialist Ophthalmology 03/21/23 Eve Juan MD [address] [place] [address] [place] [address] Specialist UROGYNECOLOGY 03/21/23 Elisa Romero NP [address] [place] [address] [place] [address] Cardiology 01/31/24 Marcus Murcia DO [address] [place] [address] [place] [address] Specialist Physiatry 03/26/24 documented as of this encounter
--- OUTSIDE RECORDS SUMMARY | 2024-09-17 17:53 | XMS_ITS | Encounter Summary ---
Author Organization [facility] Address [address] [place] [address] Care Team Providers Care Lab Animal Technician Name Role Phone Kameron Zuñiga MD Unavailable Katya Lopez NP Unavailable Unavailab Kathy Haley MD Primary Care Prov ider Be Pacheco NP Unavailable [phone] Maycol Infante MD Unavailable Unavailable Sebastian Martinez MD Unavailable UnavailEve Blackmon MD Unavailable Elisa Romero NP Unavailable [phone] Marcus Murcia DO Unavailable Unavailable Encounter Details Date Type Department Care Team Description 08/21/2023 Orders Only Medical Records [address] [place] [address] [facility] Social History Tobacco Use Types Packs/Day Years [...] OUTSIDE CT (08/03/2023) Narrative Authorizing Provider Result [facility] RADIOLOGY * OUTSIDE LAB (08/03/2023) Narrative Authorizing Provider Result [facility] LAB * OUTSIDE EKG (08/03/2023) Narrative Authorizing Provider Result [facility] CARDIOLOGY documented in this encounter Visit Diagnoses Not on filedocumented in this encounter Care Teams Lab Animal Technician Relationship Specialty Start Date End Date Kathy Christopher MD [address] [place] [address] PCP - General Internal Medicine 01/21/22 Kameron Zuñiga MD Butadiene Convertor Operator Cardiovascular Disease 08/04/21 Katya Lopez NP Cardiology 08/04/21 01/30/24 Be Pacheco NP [address] [place] [address] Nurse Practitioner Cardiology 10/17/22 01/30/24 Maycol Infante MD [address] [place] [address]53 Specialist Pulmonology 10/19/22 Sebastian Martinez MD [address] [place] [address] Specialist Ophthalmology 03/21/23 Eve Juan MD [address] [place] [address] [place] [address] Specialist UROGYNECOLOGY 03/21/23 Elisa Romero NP [address] [place] [address] [place] [address] Cardiology 01/31/24 Marcus Murcia DO [address] [place] [address] [place] [address] Specialist Physiatry 03/26/24 documented as of this encounter
--- OUTSIDE RECORDS SUMMARY | 2024-09-17 17:53 | XMS_ITS | Encounter Summary ---
Author Organization [facility] Address [address] [place] [address] Care Team Providers Care Inside Sales Name Role Phone Wiley Thompson MD Primary Care Provider Kameron Cornejo MD Unavailable Katya Lopez NP Unavailable Unavailab Kathy Haley MD Primary Care Prov ider Be Pacheco NP Unavailable [phone] Maycol Infante MD Unavailable Unavailable Sebastian Martinez MD Unavailable UnavailEve Blackmon MD Unavailable Elisa Romero NP Unavailable [phone] Marcus Murcia DO Unavailable Unavailable Reason for Visit * Reason Onset Date Comments Orders Call 03/02/2017 Encounter Details Date Type Department Care Team Description 03/02/2017 Telephone Adult Medicine [address] [address] Wiley Thompson MD Orders Call Social History Tobacco Use Types Packs/Day Years [...] * Telephone Encounter - Cyndy Foster - 03/03/2017 2:05 PM EDT Authorized * Telephone Encounter - Wiley Thompson - 03/03/2017 6:29 AM EDT Will forward to anshul bonilla * Telephone Encounter - Leilani Colindres APRN - 03/02/2017 4:50 PM EDT Documentation has been completed * Telephone Encounter - Vita Cherry LJose CruzP.NJose Cruz - 03/02/2017 1:41 PM EDT Tried calling , on hold * Telephone Encounter - Cyndy Foster - 03/02/2017 1:13 PM EDT The notes has not yet been completed to submit with order to Insurance. One the notes is completed I will submit for authorization * Telephone Encounter - Mary Gomez - 03/02/2017 12:06 PM EDT Clementina wolff [facility] (nurse piano case maker) is requesting the MRI order to be faxed to [phone] for approval and to have it expedited as the patient is in need of having the MRI doen shamar. Thanks documented in this encounter Plan of Treatment Not on file documented as of this encounter Visit Diagnoses Not on filedocumented in this encounter Care Teams Inside Sales Relationship Specialty Start Date End Date Wiley Thompson MD PCP - General Internal Medicine 06/04/14 01/20/22 Trina Rizo, Kathy Fried MD [address] [place] [address] PCP - General Internal Medicine 01/21/22 Kameron Zuñiga MD Racker Octave Board Cardiovascular Disease 08/04/21 Katya Lopez NP Cardiology 08/04/21 01/30/24 eB Pacheco NP [address] [place] [address] Nurse Practitioner Cardiology 10/17/22 01/30/24 Maycol Infante MD [address] [place] [address]8 Specialist Pulmonology 10/19/22 Sebastian Martinez MD [address] [place], [place] [address] Specialist Ophthalmology 03/21/23 Eve Juan MD [address] [place] [address] [place] [address] Specialist UROGYNECOLOGY 03/21/23 Elisa Romero NP [address] [place] [address] [place] [address] Cardiology 01/31/24 Marcus Murcia DO [address] [place] [address] [place] [address] Specialist Physiatry 03/26/24 documented as of this encounter
--- OUTSIDE RECORDS SUMMARY | 2024-09-17 17:53 | XMS_ITS | Encounter Summary ---
Author Organization [facility] Address [address] [place] [address] Care Team Providers Care Passenger Service Supervisor Name Role Phone Kameron Zuñiga MD Unavailable Katya Lopez NP Unavailable Unavailab le Kathy Christopher MD Primary Care Prov ider Be Pacheco NP Unavailable [phone] Maycol Infante MD Unavailable Unavailable Sebastian Martinez MD Unavailable UnavailEve Blackmon MD Unavailable Elisa Romero NP Unavailable [phone] Marcus Murcia DO Unavailable Unavailable Encounter Details Date Type Department Care Team Description 09/26/2023 Vice President Biostatistics Report Medical Records [address] [place] [address] Maycol Infante MD Social History Tobacco Use [...] on filedocumented in this encounter Care Teams Passenger Service Supervisor Relationship Specialty Start Date End Date Kathy Christopher MD [address] [place], [place] [phone] PCP - General Internal Medicine 01/21/22 Kameron Zuñiga MD Copy Clerk Cardiovascular Disease 08/04/21 Katya Lopez NP Cardiology 08/04/21 01/30/24 Be Pacheco NP [address] [place] [address] Nurse Practitioner Cardiology 10/17/22 01/30/24 Maycol Infante MD [address] [place] [address] Specialist Pulmonology 10/19/22 Sebastian Martinez MD [address] [place] [address] Specialist Ophthalmology 03/21/23 Eve Juan MD [address] [place] [address] [place] [address] Specialist UROGYNECOLOGY 03/21/23 Elisa Romero NP [address] [place] [address] [place] [address] Cardiology 01/31/24 Marcus Murcia DO [address] [place] [address] [place] [address] Specialist Physiatry 03/26/24 documented as of this encounter
--- OUTSIDE RECORDS SUMMARY | 2024-09-17 17:53 | XMS_ITS | Clinical Summary ---
Author Organization [facility] Address [address] [place] [address] Care [address] Scan Special Procedures Technologist Name Role Phone Pito Thompson MD Primary Care Provider [phone] Allergies No known active allergies Medications Medication Sig Dispensed Refills Start Date End Date Status aspirin enteric coated (ECOTRIN LOW STRENGTH) 81 MG EC tabletIndications:Cor onary artery disease involving huslia heart, unspecified vessel or lesion type, unspecified [...] Inactivated Comments 07/24/2021 9:[address] Scan Special Procedures Technologist Relationship Specialty Start Date End Date Pito Thompson MD [address] [place] [address] PCP - General 07/25/21
--- OUTSIDE RECORDS SUMMARY | 2024-09-17 17:53 | XMS_ITS | Encounter Summary ---
Author Organization [facility] Address [address] [place] [address] Care Team Providers Care Medical Support Assistant Name Role Phone Wiley Thompson MD Primary Care Provider Kameron Cornejo MD Unavailable Katya Lopez NP Unavailable Unavailab Kathy Haley MD Primary Care Prov ider Be Pacheco NP Unavailable [phone] Maycol Infante MD Unavailable Unavailable Sebastian Martinez MD Unavailable UnavailEve Blackmon MD Unavailable Elisa Romero NP Unavailable [phone] Marcus Murcia DO Unavailable Unavailable Encounter Details Date Type Department Care Team Description 04/12/2017 Refill Adult Medicine [address] [id number] Wiley Thompson MD Social History Tobacco Use [...] NO Patients current insurance carrier is: Payor: [facility] MCR / Plan: [employer] $0 [facility] [id number] / Product Type: HMO [id number] documented in this encounter Plan of Treatment Not on file documented as of this encounter Visit Diagnoses Not on filedocumented in this encounter Care Teams Medical Support Assistant Relationship Specialty Start Date End Date Wiley Thompson MD PCP - General Internal Medicine 06/04/14 01/20/22 Trina Rizo, Kathy Fried MD [address] [place] [address] PCP - General Internal Medicine 01/21/22 Kameron Zuñiga MD Manager Facility Cardiovascular Disease 08/04/21 Katya Lopez NP Cardiology 08/04/21 01/30/24 Be Pacheco NP [address] [place] [address] Nurse Practitioner Cardiology 10/17/22 01/30/24 Maycol Infante MD [address] [place] [address] Specialist Pulmonology 10/19/22 Sebastian Martinez MD [address] [place] [address] Specialist Ophthalmology 03/21/23 Eev Juan MD [address] [place] [address] [place] [address] Specialist UROGYNECOLOGY 03/21/23 Elisa Romero NP [address] [place] [address] [place] [address] Cardiology 01/31/24 Macrus Murcia DO [address] [place] [address] [place] [address] Specialist Physiatry 03/26/24 documented as of this encounter
--- OUTSIDE RECORDS SUMMARY | 2024-09-17 17:53 | XMS_ITS | Encounter Summary ---
Author Organization [facility] Address [address] [place] [address] Care Team Providers Care Sketch Maker Name Role Phone Wiley Thompson MD Primary Care Provider Kameron Cornejo MD Unavailable Katya Lopez NP Unavailable Unavailab Kathy Haley MD Primary Care Prov ider Be Pacheco NP Unavailable [phone] Maycol Infante MD Unavailable Unavailable Sebastian Martinez MD Unavailable UnavailEve Blackmon MD Unavailable Elisa Romero NP Unavailable [phone] Marcus Murcia DO Unavailable Unavailable Encounter Details Date Type Department Care Team Description 12/03/2021 Telephone Cardio PVCA Diag Testing [address] [facility] [address] [place], [place] [id number] Kameron Zuñiga MD [address] [place] [address] [id number] Social History Tobacco Use Types Packs/Day Years [...] and I would notify Katya or Dr Zuñgia. Katya, You are seeing her in January. documented in this encounter Plan of Treatment Not on file documented as of this encounter Visit Diagnoses Not on filedocumented in this encounter Care Teams Sketch Maker Relationship Specialty Start Date End Date Wiley Thompson MD PCP - General Internal Medicine 06/04/14 01/20/22 Kathy Christopher MD [address] [place] [address]20 PCP - General Internal Medicine 01/21/22 Kameron Zuñiga MD Renal Social Worker Cardiovascular Disease 08/04/21 Katya Lopez NP Cardiology 08/04/21 01/30/24 Be Pacheco NP [address] [place] [address] 40782 Nurse Practitioner Cardiology 10/17/22 01/30/24 Maycol Infante MD [address] [place] [address] 61629 Specialist Pulmonology 10/19/22 Sebastian Martinez MD [address] [place] [address] 28943 Specialist Ophthalmology 03/21/23 Eve Juan MD [address] [place] [address] [place] [address] Specialist UROGYNECOLOGY 03/21/23 Elisa Romero NP [address] [place] [address] [place] [address] Cardiology 01/31/24 Marcus Murcia DO [address] [place] [address] [place] [address] Specialist Physiatry 03/26/24 documented as of this encounter
--- OUTSIDE RECORDS SUMMARY | 2024-09-17 17:54 | XMS_ITS | Encounter Summary ---
Author Organization [facility] Address [address] [place] [address] Care Team Providers Care Urban Designer Name Role Phone Wiley Thompson MD Primary Care Provider Kameron Cornejo MD Unavailable Katya Lopez NP Unavailable Unavailab Kathy Christopher MD Primary Care Prov ider Be Pacheco NP Unavailable [phone] Maycol Infante MD Unavailable Unavailable Sebastian Martinez MD Unavailable UnavailEve Blackmon MD Unavailable Elisa Romero NP Unavailable [phone] Marcus Murcia DO Unavailable Unavailable Encounter Details Date Type Department Care Team Description 04/10/2015 Brush Or Broom Cutter Report Medical Records [address] [place] [address] Seema Canas MD Social History Tobacco Use [...] on filedocumented in this encounter Care Teams Urban Designer Relationship Specialty Start Date End Date Wiley Thompson MD PCP - General Internal Medicine 06/04/14 01/20/22 Kathy Christopher MD [address] [place] [address] 8[address]79 PCP - General Internal Medicine 01/21/22 Kameron Zuñiga MD Corporate Counselor Cardiovascular Disease 08/04/21 Katya Lopez, IRMA Cardiology 08/04/21 01/30/24 Be Pacheco NP [address] [place] [address] 90692 Nurse Practitioner Cardiology 10/17/22 01/30/24 Maycol Infante MD [address] [place] [address] 60972 Specialist Pulmonology 10/19/22 Sebastian Martinez MD [address] [place] [address] 22151 Specialist Ophthalmology 03/21/23 Eve Juan MD [address] [place] [address] [place] [address] Specialist UROGYNECOLOGY 03/21/23 Elisa Romero NP [address] [place] [address] [place] [address] Cardiology 01/31/24 Marcus Murcia DO [address] [place] [address] [place] [address] Specialist Physiatry 03/26/24 documented as of this encounter
--- OUTSIDE RECORDS SUMMARY | 2024-09-17 17:54 | XMS_ITS | Clinical Summary ---
Author Organization [facility] Address [address] [place] [address] Care Team Providers Care Aircraft Fueler Name Role Phone Kameron Zuñiga MD Unavailable Kathy Christopher MD Primary Care Prov ider Maycol Infante MD Unavailable Unavailable Sebastian Martinez MD Unavailable UnavailEve Blackmon MD Unavailable Elisa Romero NP Unavailable [phone] Marcus Murcia DO Unavailable Unavailable Allergies Active Allergy Reactions Severity Noted Date Comments Augmentin Rash/Dermatitis 07/17/2012 Medications Medication Sig Dispensed Refills Start Date End Date Status Oxygen Historical (HISTORICAL OXYGEN) 2-3 L by Nasal route at bedtime. [employer] 0 Active aspirin 81 MG tablet Take 81 mg by mouth daily. 0 Active Fluticasone-Umecli din-Vilant (TRELEGY ELLIPTA) 100-62.5-25 MCG/INH AEROSOL POWDER,BREATH ACTIVATED Inhale into the lungs. 0 11/04/2019 Active Melatonin 10 MG Tab Take by mouth at bedtime. 0 Active Cholecalciferol (Vitamin D3) 50 MCG (1999 UT) Cap Take 1 Capsule by mouth daily. 90 Capsule 1 02/18/2022 Active Incontinence Supply Disposable (Poise Moderate Absorbency) PadsIndications:Ur inary incontinence, unspecified type 6 Each by Does not apply route daily. LUIS-99 Brand name Poise Bladder Pads Generic brand ineffective @ containing her Incontinence 6/day 180/month 11 refills 180 Each 11 03/15/2022 Active ALBUTEROL SULFATE 108 (90 Base) MCG/ACT Aero Soln Inhale 2 Puffs into the lungs every 4 hours as needed for Cough, Wheezing or Shortness of Breath. 8.5 g 1 10/10/2022 Active Incontinence Supply Disposable MiscIndications:Ur inary incontinence, unspecified type 8 Each by Does not apply route daily. LUIS-99 Brand name poise bladder pads #3 generic brand ineffective @ containing her incontinence 8/day 240/month 11 refills 240 Each 11 10/20/2022 Active estradiol (ESTRACE) 0.1 MG/GM vaginal cream Apply a pea-sized amount of cream with your finger into the vagina daily at bedtime for 2 weeks, then two times a week at night. 42.5 g 5 04/05/2023 Active Diclofenac Sodium 1 % Gel APPLY 2 G TOPICALLY NEEDED (PAIN). 100 g 5 04/21/2023 Active metoprolol (LOPRESSOR) 50 MG tablet Take 1 and 1/2 tablets daily. 135 Tablet 3 04/25/2023 Active isosorbide mononitrate (IMDUR) 30 MG 24 hr tablet TAKE 1 TABLET BY MOUTH EVERY DAY IN THE MORNING 90 Tablet 3 05/04/2023 Active furosemide (LASIX) 20 MG tablet Take 2 Tablets by mouth daily as needed. 0 Active albuterol (PROVENTIL) (2.5 MG/3ML) 0.083% nebulizer solution TAKE 1 VIAL BY NEBULIZATION EVERY 4 HOURS NEEDED FOR WHEEZING 75 mL 1 06/27/2023 Active cetirizine (ZYRTEC) 10 MG tablet TAKE 1 TABLET BY MOUTH EVERY DAY 90 Tablet 1 08/04/2023 Active Incontinence Supply Disposable (Depend Adjustable Underwear Lg) Misc 1 Units by Does not apply route 4 times daily. 30 Each 11 10/05/2023 Active metformin (GLUCOPHAGE-XR) 500 MG 24 hr tablet Take 1 Tablet by mouth daily (with breakfast). 90 Tablet 0 12/04/2023 Active Dexlansoprazole 60 MG CAPSULE DELAYED RELEASE Take 1 Capsule by mouth daily. 90 Capsule 0 12/04/2023 Active Plecanatide (Trulance) 3 MG Tab Take 1 Tablet by mouth daily. 90 Tablet 0 12/04/2023 Active atorvastatin (LIPITOR) 80 MG tablet Take 1 Tablet by mouth daily. 90 Tablet 1 12/04/2023 Active hydrocodone-acetam inophen (NORCO) 5-325 MG per tablet TAKE 1 TABLET BY MOUTH FOUR TIMES A DAY FOR 7 DAYS 0 12/06/2023 Active triamcinolone (KENALOG) 0.025 % cream Apply to affected area twice daily for 2 weeks. 90 g 0 12/27/2023 Active nitroGLYCERIN (NITROSTAT) 0.[address] 1 TAB UNDER TONGUE EVERY 5 MINS, UP TO 3 DOSES NEEDED FOR CHEST PAIN IF NO RELIEF CALL 911 25 Tablet 2 01/03/2024 Active lidocaine (LIDODERM) 5 % Place 1 Patch onto the skin every 24 hours. Apply for no more than 12 hours in any 24 hour period. 28 Patch 0 03/21/2024 Active Active Problems Patient Care Coordination No te Formatting of this note is d ifferent from the original. Checking Your Blood Sugars Please check your blood sugars every day. Please check your sugars at the following times of day: before breakfast and after dinner Your Blood Sugar Goals Pre Meal: 90-130 2 hours after meals: 110-160 Bedtime: 110-150 Use the Results ?? Bring your glucometer to every appointment ?? Write your fingerstick blood sugars down on a log sheet or record book. Bring them to your appointment ?? Look for patterns in the numbers. The results help you and your provider make decisions about your diabetes treatment plan. Your Results and your Goals Your Result / Date of Completion Your Goal / How Often to Assess Component Value Date HGBA1C 5.2 07/18/2014 Less than 7%--- 2-4 times per year BP Readings from Last 1 Encounters: 10/16/14 124/74 Less than 130/80--- once per year Component Value Date LDL 110 07/18/2014 LDL less than 100--- once per year Component Value Date MALBUR 5.3 07/18/2014 Less than 30--- once per year Wt Readings from Last 1 Encounters: 10/16/14 190 lb 9.6 oz (86.456 kg) Your goal weight by next visit: 170 --- reassess 2-4 times a year Health Maintenance Due Topic Date Due ? ? Depression Screen 1956 ? ? Fall Risk Assessment 2009 ? ? Diabetes: Annual Care Plan 08/16/2014 ? ? Bone Density Screening 08/27/2014 Your Action Plan Check blood glucose as directed and write down all results. Check feet for sores every day Continue to work on weight loss with a goal of losing 2-4 pounds per month Avoid walking in bare or stocking feet due to the numbness in your feet Increase physical activity Contact me if you experience any barriers to care such as inability to purchase your medication, difficulty getting to your appointments or difficulty understanding your care plan When to Call your Healthcare Provider If your blood sugar falls below 70 and you do not know why or you become unconscious If you are sick and unable to take liquids because or nausea or vomiting If you have a fever over 101 If your blood sugar is 300 or higher on greater than 3 separate occasions during the same week If you are just unsure what to do Educational Resources [place] [employer] (www.diabetes.org) Centers for Disease Control and Prevention (www.cdc.gov/diabetes) This care plan was created in collaboration with Shea Ramirez on 10/16/2014 Problem Noted Date Mucopurulent chronic bronchitis 05/24/20 23 Palpitations 05/24/2023 Chronic heart failure with preserved eje ction fraction 11/24/2022 CHF (congestive heart failure) 3 Chest pain 11/18/2022 Hypertensive retinopathy 11/10/2021 Overview: Dr. Martinez. Optimize blood pressure control Tachycardia 09/27/2021 Shortness of breath 09/27/2021 S/P drug eluting coronary stent placemen t 09/27/2021 Syncope 09/22/2021 Osteopenia 06/26/2021 Anemia 05/07/2020 Stenosis of left vertebral artery 2019 Asymptomatic stenosis of intracranial ar denise 05/07/2020 Osteoarthritis of both shoulders 020 Type 2 diabetes mellitus wit h stage 3 chronic kidney disease, without long-term current use of insulin 11/04/2019 Mammographic microcalcification 01/11/20 19 Hearing decreased, bilateral 12/18/2018 COPD (chronic obstructive pulmonary dise ase) 12/10/2018 Supplemental oxygen dependent 12/10/2018 Class 1 obesity due to exces s calories with serious comorbidity and body mass index (BMI) of 32.0 to 32.9 in adult 12/10/2018 Obstructive sleep apnea moderate HAYLEY 16 with nocturnal hypoxia 11/21/2018 Overview: [facility] Home Sleep Apnea Test: Date 11/18/2018; Wt 192#; BMI 33; HAYLEY 16, AI 1; HI 14; Unclassified apneas 0; Obstructive apneas 10; Central apneas 0; Mixed apneas 0; hypopneas 126; average oxygen saturation 88% (lowest 73% with saturations <88% for 5% or more of study) [facility] Polysomnogram treatment study. Date 01/11/2019. Wt [...] mostly hypopneas; with sleep related hypoventilation by 2018 home polysomnogram. - 01/11/2019 Pre-study ESS 3. 0/4 RLS symptoms. 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 There was mild disease in the LAD and circumflex. There is a 75% stenosis in the proximal right coronary artery. This was stented with a drug-eluting stent. Last Assessment & Plan: No ischemic symptoms, feeling quite well. Continue ASA, BB, statin, L AN Hyperlipidemia 07/18/2014 Last Assessment & Plan: Last lipid panel 07/10 total cholesterol 146, HDL 50, LDL 62. Goal LDL goal is less than 70. Continue statin. Solitary pulmonary nodule 11/08/2013 Overview: 4mm, followed for 2 yrs w/o change Anxiety 06/18/2013 Asthma 07/17/2012 Primary hypertension 07/17/2012 Last Assessment & Plan: Controlled, continue current regimen. Insomnia 07/17/2012 GERD (gastroesophageal reflux disease) 0 07/17/2012 Allergic rhinitis 07/17/2012 Gastroparesis 07/17/2012 Overview: Dr. Stephenson at [address] Osteoarthritis Resolved Problems Problem Noted Date Resolved Date Iron deficiency anemia due to chronic blood loss 10/06/2015 03/25/2016 Overview: Sensitive to PO iron tablets - causing gastritis ( iron pill induced). Please do IV iron. Referral for hematology placed today Immunizations Name Administration Dates Next Due COVID-19 (TYRA AND TYRA) 09/09/2020 COVID-19 (TYRA AND MANDI Gilbert) PT REPORTED 09/09/2020 COVID-19 (Pfizer) 04/28/2021 COVID-19 (Pfizer) Pt Reported 04/28/2021 Covid-19 Bivalent (Pfizer) 05/24/2022 Influenza Flu (PT Reported) 03/10/2022,1 ,02/24/2020,04/06,05/06/2014,03/05/2013 Influenza vaccine high dose age 65 and over 03/26/2024,02/28/2023,03/28/2022,03/22,03/13/2019,03/02/2018,03/01/2017 ,03/30/2016 Pneumoccoccal(Adult) Polysac charide PPSV23 04/28/2014,03/05/2013,08/01/2012 Pneumococcal Conjugate PCV-13 03/30/2016 TD (STATE SUPPLIED FOR ADULT S AND CHILDREN) 01/16/2023 Tdap 08/01/2012 Family History Medical History Relation Name Comments cardiomegaly Mother ASTHMA, CHF Relation Name Status [...] Sign Reading Time Taken Comments Blood Pressure 116/60 03/26/2024 11:14 AM EDT Pulse 97 03/26/2024 11:14 AM EDT Temperature 35.7 ??C (96.3 ??F) 03/26/2024 11:14 AM E DT Respiratory Rate 15 03/26/2024 11:14 AM EDT Oxygen Saturation 94% 03/26/2024 11:14 AM EDT Inhaled Oxygen Concentration - - Weight 85.5 kg (188 lb 6.4 oz) 03/26/2024 11:14 AM EDT Height 162.6 cm (5' 4 ) 03/26/2024 11:14 AM EDT Body Mass Index 32.34 03/26/2024 11:14 AM EDT Plan of Treatment Health Maintenance Due Date Last Done Comments SHINGLES VACCINE (1 of 2) 1994 BONE DENSITY SCREENING 09/10/2023 , 09/09/2021 (External Completion), 08/27/2012, Additional history exists BMI CHECK/ADVISE 06/19/2024 03/26/2024, , 08/18/2023, Additional history exists DIABETES: BLOOD SUGAR CONTROL TEST (HGBA1C) 06/26/2024 03/26/2024, 03/26/2024, 06/23/2023, Additional history exists MAMMOGRAM 07/19/2024 07/19/2023, 08/18, 09/09/2021, Additional history exists DIABETES: ANNUAL EYE EXAM 11/27/20242023 (External Completion of test per patient (Patient reports normal results)), 11/29/2022, 11/04/2021, Additional history exists DIABETES: ANNUAL FOOT EXAM 12/03/202412/03, 10/19/2022, 09/29/2021, Additional history exists DEPRESSION SCREEN 03/26/2025 03/26/2024, (Completed), 03/21/2023, Additional history exists DIABETES/HEART DISEASE: ANNUAL CHOLESTEROL (LDL) 03/26/2025 03/26/2024, 10/10/2022, 03/14/2022, Additional history exists DIABETES: ANNUAL URINE PROTEIN TEST (MICROALBUMIN) 03/26/2025 03/26/2024, 10/10/2022, 06/24/2021, Additional history exists FALL RISK ASSESSMENT 03/26/2025 03/26/2024 (Completed), 03/21/2023, 03/14/2022, Additional history exists COLON CANCER SCREENING 07/01/2025 (Exception), 06/16/2020, 12/16/2015, Additional history exists Postponed from 06/22/2023 (Not Indicated) DTAP/TDAP/TD (3 - Td or Tdap) 01/16/2033 01/16/2023, 08/01/2012 Covid-19 Vaccine ( season) 2112 05/24/2022, 04/28/2021, 04/28/2021, Additional history exists Postponed from 02/18/2024 (Patient Refused) HEPATITIS C SCREENING Completed 01/18/2016 PNEUMOCOCCAL VACCINE Completed 03/30/2016, 04/28/2014, 03/05/2013, Additional history exists INFLUENZA Completed 03/26/2024, 02/17, 03/28/2022, Additional history exists Care Teams Aircraft Fueler Relationship Specialty Start Date End Date Kathy Christopher MD [address] [place] [address] 616[address] PCP - General Internal Medicine 01/21/22 Kameron Zuñiga MD Pig Lead Melter Helper Cardiovascular Disease 08/04/21 Maycol Infante MD [address] [place] [address] 91266 Specialist Pulmonology 10/19/22 Sebastian Martinez MD [address] [place] [address] 35736 Specialist Ophthalmology 03/21/23 Eve Juan MD [address] [place] [address] [place] [address] Specialist UROGYNECOLOGY 03/21/23 Elisa Romero NP [address] [place] [address] [place] [address] Cardiology 01/31/24 Marcus Murcia DO [address] [place] [address] [place] [address] Specialist Physiatry 03/26/24
--- OUTSIDE RECORDS SUMMARY | 2024-09-17 17:54 | XMS_ITS | Encounter Summary ---
Author Organization [facility] Address [address] [place] [address] Care Team Providers Care Strapper Name Role Phone Wiley Thompson MD Primary Care Provider Kameron Cornejo MD Unavailable Katya Lopez LINEMAN Unavailable Unavailab Kathy Christopher MD Primary Care Prov ider Be Pacheco NP Unavailable [phone] Maycol Infante MD Unavailable Unavailable Sebastian Martinez MD Unavailable UnavailEve Blackmon MD Unavailable Elisa Romero NP Unavailable [phone] Marcus Murcia DO Unavailable Unavailable Encounter Details Date Type Department Care Team Description 11/19/2019 Oil Truck Driver Report Medical Records [address] [place] [address] Maycol Infante MD Social History Tobacco Use [...] on filedocumented in this encounter Care Teams Strapper Relationship Specialty Start Date End Date Wiley Thompson MD PCP - General Internal Medicine 06/04/14 01/20/22 Kathy Christopher MD [address] [place] [address] 98227 PCP - General Internal Medicine 01/21/22 Kameron Zuñiga MD Validation Intern Cardiovascular Disease 08/04/21 Katya Lopez, IRMA Cardiology 08/04/21 01/30/24 Be Pacheco NP [address] [place] [address] 14543 Nurse Practitioner Cardiology 10/17/22 01/30/24 Maycol Infante MD [address] [place] [address] 02350 Specialist Pulmonology 10/19/22 Sebastian Martinez MD [address] [place] [address]111 Specialist Ophthalmology 03/21/23 Eve Juan MD [address] [place] [address] [place] [address] Specialist UROGYNECOLOGY 03/21/23 Elisa Romero NP [address] [place] [address] [place] [address] Cardiology 01/31/24 Marcus Murcia DO [address] [place] [address] [place] [address] Specialist Physiatry 03/26/24 documented as of this encounter
--- OUTSIDE RECORDS SUMMARY | 2024-09-17 17:54 | XMS_ITS | Encounter Summary ---
Author Organization [facility] Address [address] [place] [address] Care Team Providers Care Boiler Plant Worker Name Role Phone Wiley Thompson MD Primary Care Provider Kameron Cornejo MD Unavailable Katya Lopez NP Unavailable Unavailab Kathy Christopher MD Primary Care Prov ider Be Pacheco NP Unavailable [phone] Maycol Infante MD Unavailable Unavailable Sebastian Martinez MD Unavailable UnavailEve Blackmon MD Unavailable Elisa Romero NP Unavailable [phone] Marcus Murcia DO Unavailable Unavailable Encounter Details Date Type Department Care Team Description 07/24/2018 [facility] Medical Records [address] [place] [id number] Abstract, Provider Social History Tobacco Use Types [...] filedocumented in this encounter Care Teams Boiler Plant Worker Relationship Specialty Start Date End Date Wiley Thompson MD PCP - General Internal Medicine 06/04/14 01/20/22 Kathy Christopher MD [address] [place] [address] PCP - General Internal Medicine 01/21/22 Kameron Zuñiga MD Pain Medicine Physician Cardiovascular Disease 08/04/21 Katya Lopez, IRMA Cardiology 08/04/21 01/30/24 Be Pacheco NP [address] [place] [address] 99760 Nurse Practitioner Cardiology 10/17/22 01/30/24 Maycol Infante MD [address] [place] [address] 85398 Specialist Pulmonology 10/19/22 Sebastian Martinez MD [address] [place] [address] 45329 Specialist Ophthalmology 03/21/23 Eve Juan MD [address] [place] [address] [place] [address] Specialist UROGYNECOLOGY 03/21/23 Elisa Romero NP [address] [place] [address] [place] [address] Cardiology 01/31/24 Marcus Murcia DO [address] [place] [address] [place] [address] Specialist Physiatry 03/26/24 documented as of this encounter
--- OUTSIDE RECORDS SUMMARY | 2024-09-17 17:54 | XMS_ITS | Encounter Summary ---
Author Organization [facility] Address [address] [place] [address] Care Team Providers Care Chicken And Fish Butcher Name Role Phone Wiley Thompson MD Primary Care Provider Kameron Cornejo MD Unavailable Katya Lopez NP Unavailable Unavailab Kathy Haley MD Primary Care Prov ider Be Pacheco NP Unavailable [phone] Maycol Infante MD Unavailable Unavailable Sebastian Martinez MD Unavailable UnavailEve Blackmon MD Unavailable Elisa Romero NP Unavailable [phone] Marcus Murcia DO Unavailable Unavailable Reason for Visit * Reason Comments E-prescribe Rx Request Encounter Details Date Type Department Care Team Description 06/25/2017 Refill Adult Medicine [address] [address] Leilani Colindres APRN E-prescribe Rx Request Social History Tobacco Use [...] encounter Miscellaneous Notes * Telephone Encounter - Chhaya Tabor M.A. - 06/26/2017 4:42 PM EST Lab Results Component Value Date NA 142 05/30/2017 K 4.6 05/30/2017 CO2 25.1 05/30/2017 CL 100 05/30/2017 BUN 20 05/30/2017 CREAT 1.0 05/30/2017 GLU 109 05/30/2017 CA 9.6 05/30/2017 GFR 58 05/30/2017 * Telephone Encounter - Kim León - 06/26/2017 3:34 PM EST Patient would like script to be: E-PRESCRIBED/FAXED TO PHARMACY WHEN WAS THE PATIENT'S LAST APPOINTMENT IN ADULT MEDICINE? 05/31/17 WHEN WAS THE LAST TIME THE PATIENT [...] NO Patients current insurance carrier is: Payor: [facility] [employer] MCR / Plan: O $0 [facility] [id number] / Product Type: HMO [id number] documented in this encounter Plan of Treatment Not on file documented as of this encounter Visit Diagnoses Not on filedocumented in this encounter Care Teams Chicken And Fish Butcher Relationship Specialty Start Date End Date Wiley Thompson MD PCP - General Internal Medicine 06/04/14 01/20/22 Trina Rizo, Kathy Fried MD [address] [place] [address] PCP - General Internal Medicine 01/21/22 Kameron Zuñiga MD Hall Tender Cardiovascular Disease 08/04/21 Katya Lopez NP Cardiology 08/04/21 01/30/24 Be Pacheco NP [address] [place] [address]001 Nurse Practitioner Cardiology 10/17/22 01/30/24 Maycol Infante MD [address] [place] [address] 17296 Specialist Pulmonology 10/19/22 Sebastian Martinez MD [address] [place], [place] [phone] Specialist Ophthalmology 03/21/23 Eve Juan MD [address] [place] [address] [place] [address] Specialist UROGYNECOLOGY 03/21/23 Elisa Romero NP [address] [place] [address] [place] [address] Cardiology 01/31/24 Marcus Murcia DO [address] [place] [address] [place] [address] Specialist Physiatry 03/26/24 documented as of this encounter
--- OUTSIDE RECORDS SUMMARY | 2024-09-17 17:54 | XMS_ITS | Encounter Summary ---
Author Organization [facility] Address [address] [place] [address] Care Team Providers Care C Python Developer Name Role Phone Wiley Thompson MD Primary Care Provider Kameron Cornejo MD Unavailable Katya Lopez NP Unavailable Unavailab Kathy Haley MD Primary Care Prov ider Be Pacheco NP Unavailable [phone] Maycol Infante MD Unavailable Unavailable Sebastian Martinez MD Unavailable UnavailEve Blackmon MD Unavailable Elisa Romero NP Unavailable [phone] Marcus Murcia DO Unavailable Unavailable Encounter Details Date Type Department Care Team Description 02/28/2015 Hospital Medical Records [address] [place] [address] Ian Markham DO Social History Tobacco Use Types Packs/Day [...] on filedocumented in this encounter Care Teams C Python Developer Relationship Specialty Start Date End Date Wiley Thompson MD PCP - General Internal Medicine 06/04/14 01/20/22 Kathy Christopher MD [address] [place] [address] PCP - General Internal Medicine 01/21/22 Kameron Zuñiga MD Pig Breeder Cardiovascular Disease 08/04/21 Katya Lopez NP Cardiology 08/04/21 01/30/24 Be Pacheoc NP [address] [place] [address] Nurse Practitioner Cardiology 10/17/22 01/30/24 Maycol Infante MD [address] [place] [address] Specialist Pulmonology 10/19/22 Sebastian Martinez MD [address] [place] [address] Specialist Ophthalmology 03/21/23 Eve Juan MD [address] [place] [address] [place] [address] Specialist UROGYNECOLOGY 03/21/23 Elisa Romero NP [address] [place] [address] [place] [address] Cardiology 01/31/24 Marcus Murcia DO [address] [place] [address] [place] [address] Specialist Physiatry 03/26/24 documented as of this encounter
--- OUTSIDE RECORDS SUMMARY | 2024-09-17 17:54 | XMS_ITS | Encounter Summary ---
Author Organization [facility] Address [address] [place] [address] Care Team Providers Care Computer Networking Instructor Name Role Phone Kameron Zuñiga MD Unavailable Katya Lopez NP Unavailable Unavailab Kathy Haley MD Primary Care Prov ider Be Pacheco NP Unavailable Maycol Infante MD Unavailable Unavailable Sebastian Martinez MD Unavailable UnavailEve Blackmon MD Unavailable Elisa Romero NP Unavailable [phone] Marcus Murcia DO Unavailable Unavailable Encounter Details Date Type Department Care Team Description 03/10/2022 Application Programmer Analyst Report Medical Records [address] [place] [address] Maycol Infante MD Social History Tobacco Use [...] suspected to have Coronavirus/COVID-19? No / Unsure 03/01/2022 11:07 AM EDT documented as of this encounter Plan of Treatment Not on file documented as of this encounter Visit Diagnoses Not on filedocumented in this encounter Care Teams Computer Networking Instructor Relationship Specialty Start Date End Date Kathy Christopher MD [address] [place] [address] 13393 PCP - General Internal Medicine 01/21/22 Kameron Zuñiga MD Plating Engineer Cardiovascular Disease 08/04/21 Katya Lopez NP Cardiology 08/04/21 01/30/24 Be Pacheco NP [address] [place] [address] 15747 Nurse Practitioner Cardiology 10/17/22 01/30/24 Maycol Infante MD [address] [place] [address] 15216 Specialist Pulmonology 10/19/22 Sebastian Martinez MD [address] [place] [address] 10664 Specialist Ophthalmology 03/21/23 Eve Juan MD [address] [place] [address] [place] [address] Specialist UROGYNECOLOGY 03/21/23 Elisa Romero NP [address] [place] [address] [place] [address] Cardiology 01/31/24 Marcus Murcia DO [address] [place] [address] [place] [address] Specialist Physiatry 03/26/24 documented as of this encounter
--- OUTSIDE RECORDS SUMMARY | 2024-09-17 17:54 | XMS_ITS | Encounter Summary ---
Author Organization [facility] Address [address] [place] [address] Care Team Providers Care Multiskill Operator Name Role Phone Kameron Zuñiga MD Unavailable Kathy Christopher MD Primary Care Prov ider Maycol Infante MD Unavailable Unavailable Sebastian Martinez MD Unavailable UnavailEve Blackmon MD Unavailable Elisa Romero NP Unavailable [phone] Marcus Murcia DO Unavailable Unavailable Encounter Details Date Type Department Care Team Description 04/02/2024 [facility] Medical Records [address] [place] [address] Abstract, Provider Social History Tobacco Use Types [...] on filedocumented in this encounter Care Teams Multiskill Operator Relationship Specialty Start Date End Date Kathy Christopher MD [address] [place] [address] PCP - General Internal Medicine 01/21/22 Kameron Zuñiga MD Alto Singer Cardiovascular Disease 08/04/21 Maycol Infante MD [address] [place] [address] Specialist Pulmonology 10/19/22 Sebastian Martinez MD [address] [place], [place] [phone] Specialist Ophthalmology 03/21/23 Eve Juan MD [address] [place] [address] [place] [address] Specialist UROGYNECOLOGY 03/21/23 Elisa Romero NP [address] [place] [address] [place] [address] Cardiology 01/31/24 Marcus Murcia DO [address] [place] [address] [place] [address] Specialist Physiatry 03/26/24 documented as of this encounter
--- OUTSIDE RECORDS SUMMARY | 2024-09-17 17:54 | XMS_ITS | Encounter Summary ---
Author Organization [facility] Address [address] [place] [address] Care Team Providers Care Television Maintenance Worker Name Role Phone Kameron Zuñiga MD Unavailable Katya Lopez NP Unavailable Unavailab Kathy Haley MD Primary Care Prov ider Be Pacheco NP Unavailable [phone] Maycol Infante MD Unavailable Unavailable Sebastian Martinez MD Unavailable UnavailEve Blackmon MD Unavailable Elisa Romero NP Unavailable [phone] Marcus Murcia DO Unavailable Unavailable Encounter Details Date Type Department Care Team Description 05/27/2022 Customer Success Associate Report Medical Records [address] [place] [address] Maycol Infante MD Social History Tobacco Use [...] suspected to have Coronavirus/COVID-19? No / Unsure 05/16/2022 11:28 AM EST documented as of this encounter Plan of Treatment Not on file documented as of this encounter Visit Diagnoses Not on filedocumented in this encounter Care Teams Television Maintenance Worker Relationship Specialty Start Date End Date Kathy Christopher MD [address] [place] [address] PCP - General Internal Medicine 01/21/22 Kameron Zuñiga MD Design Intern Cardiovascular Disease 08/04/21 Katya Lopez NP Cardiology 08/04/21 01/30/24 Be Pacheco NP [address] [place] [address] Nurse Practitioner Cardiology 10/17/22 01/30/24 Maycol Infante MD [address] [place] [address]84 Specialist Pulmonology 10/19/22 Sebastian Martinez MD [address] [place] [address] 267[address] Specialist Ophthalmology 03/21/23 Eve Juan MD [address] [place] [address] [place] [address] Specialist UROGYNECOLOGY 03/21/23 Elisa Romero NP [address] [place] [address] [place] [address] Cardiology 01/31/24 Marcus Murcia DO [address] [place] [address] [place] [address] Specialist Physiatry 03/26/24 documented as of this encounter
--- OUTSIDE RECORDS SUMMARY | 2024-09-17 17:54 | XMS_ITS | Encounter Summary ---
Author Organization [facility] Address [address] [place] [address] Care Team Providers Care Manager Assisted Living Name Role Phone Kameron Zuñiga MD Unavailable Katya Lopez NP Unavailable Unavailab le Kathy Christopher MD Primary Care Prov ider Be Pacheco NP Unavailable [phone] Maycol Infante MD Unavailable Unavailable Sebastian Martinez MD Unavailable UnavailEve Blackmon MD Unavailable Elisa Romero NP Unavailable [phone] Marcus Murcia DO Unavailable Unavailable Encounter Details Date Type Department Care Team Description 09/16/2022 Boat Camp Operator Report Medical Records [address] [place] [address] Maycol Infante MD Social History Tobacco Use [...] filedocumented in this encounter Care Teams Manager Assisted Living Relationship Specialty Start Date End Date Kathy Christopher MD [address] [place] [address] [phone] PCP - General Internal Medicine 01/21/22 Kameron Zuñiga MD Wallpaper Inspector Cardiovascular Disease 08/04/21 Katya Lopez NP Cardiology 08/04/21 01/30/24 Be Pacheco NP [address] [place] [address] Nurse Practitioner Cardiology 10/17/22 01/30/24 Maycol Infante MD [address] [place] [address]15 Specialist Pulmonology 10/19/22 Sebastian Martinez MD [address] [place] [address] Specialist Ophthalmology 03/21/23 Eve Juan MD [address] [place] [address] [place] [address] Specialist UROGYNECOLOGY 03/21/23 Elisa Romero NP [address] [place] [address] [place] [address] Cardiology 01/31/24 Marcus Murcia DO [address] [place] [address] [place] [address] Specialist Physiatry 03/26/24 documented as of this encounter
--- OUTSIDE RECORDS SUMMARY | 2024-09-17 17:54 | XMS_ITS | Encounter Summary ---
Author Organization [facility] Address [address] [place] [address] Care Team Providers Care Olericulturist Name Role Phone Kameron Zuñiga MD Unavailable Katya Lopez NP Unavailable Unavailab Kathy Haley MD Primary Care Prov ider Be Pacheco NP Unavailable [phone] Maycol Infante MD Unavailable Unavailable Sebastian Martinez MD Unavailable UnavailEve Blackmon MD Unavailable Elisa Romero NP Unavailable [phone] Marcus Murcia DO Unavailable Unavailable Encounter Details Date Type Department Care Team Description 07/15/2022 Enforcement Safety Officer Report Medical Records [address] [place] [address] Maycol Infante MD Social History Tobacco Use [...] on filedocumented in this encounter Care Teams Olericulturist Relationship Specialty Start Date End Date Kathy Christopher MD [address] [place] [phone] PCP - General Internal Medicine 01/21/22 Kameron Zuñiga MD Professional Wrestler Cardiovascular Disease 08/04/21 Katya Lopez NP Cardiology 08/04/21 01/30/24 Be Pacheco NP [address] [place] [address] 16982 Nurse Practitioner Cardiology 10/17/22 01/30/24 Maycol Infante MD [address] [place] [address] Specialist Pulmonology 10/19/22 Sebastian Martinez MD [address] [place] [address] 15736 Specialist Ophthalmology 03/21/23 Eve Juan MD [address] [place] [address] [place] [address] Specialist UROGYNECOLOGY 03/21/23 Elisa Romero NP [address] [place] [address] [place] [address] Cardiology 01/31/24 Marcus Murcia DO [address] [place] [address] [place] [address] Specialist Physiatry 03/26/24 documented as of this encounter
--- OUTSIDE RECORDS SUMMARY | 2024-09-17 17:54 | XMS_ITS | Encounter Summary ---
Author Organization [facility] Address [address] [place] [address] Care Team Providers Care Shop Repairer Name Role Phone Kameron Zuñiga MD Unavailable Katya Lopez NP Unavailable Unavailab Kathy Haley MD Primary Care Prov ider Be Pacheco NP Unavailable [phone] Maycol Infante MD Unavailable Unavailable Sebastian Martinez MD Unavailable UnavailEve Blackmon MD Unavailable Elisa Romero NP Unavailable [phone] Marcus Murcia DO Unavailable Unavailable Reason for Visit * Reason Onset Date Comments pain, chest 02/24/2022 Blood Pressure Elevated 02/24/2022 Encounter Details Date Type Department Care Team Description 02/24/2022 Telephone Cardio [facility] [address] [place] [address] Kameron Zuñiga MD [address] [place], [place] [phone] pain, chest; Blood Pressure Elevated Social History Tobacco Use Types Packs/Day Years [...] suspected to have Coronavirus/COVID-19? No / Unsure 02/18/2022 10:09 AM EDT documented as of this encounter Miscellaneous Notes * Telephone Encounter - Debra Messer R.N. - 02/24/2022 3:05 PM EDT BP check appt scheduled for Monday, pt will bring machine with her for calibration * Telephone Encounter - Katya Lopez NP - 02/24/2022 2:58 PM EDT Would she be willing to come in for a BP check within the next week? She can bring her monitor. It is bizarre her BP was great the day in the office. Pain can increase BP also. Neck pain or muscle pains can cause a LEGER also. She can let her PCP know as well. But a BP check would be good with her monitor to ensure its accurate * Telephone Encounter - Debra Messer R.N. - 02/24/2022 2:17 PM EDT Called and spoke with pt, states she has pain in the back of her neck and been having headaches, unrelieved by tylenol. Reports an elevated BP of 179/64 but states that is the highest it is been, usually SBP 140s to 150s 30 min after medications. Also reports CP that lasts just a couple minutes and comes and goes. Not worsened by inspiration orpalpation. Reports it as a dull pain on left side of chest. States she had occasional mild SOB thatcomes with it. Denies edema, states her ankles were swollen 2 days ago, she took a lasix and it went away. She does not take daily weights, has not missed any doses of medications, remains hydrated, eats fresh fruits and vegetables, minimal to no processed foods, cooks herself, uses low salt. See encounter 01/31 * Telephone Encounter - Eve Dowd - 02/24/2022 1:59 PM EDT Patients daughter Jaimie calling stating patients blood pressure has been elevated since last [id number]/64 has been around there since then. States she has also been having headaches and chest pains that she has been taking tylenol to help but has not been doing to much. Wants to speak with nurse documented in this encounter Plan of Treatment Not on file documented as of this encounter Visit Diagnoses Not on filedocumented in this encounter Care Teams Shop Repairer Relationship Specialty Start Date End Date Kathy Christopher MD [address] [place] [address] PCP - General Internal Medicine 01/21/22 Kameron Zuñiga MD Manager Trade Cardiovascular Disease 08/04/21 Katya Lopez NP Cardiology 08/04/21 01/30/24 Be Pacheco NP [address] [place] [address] 47574 Nurse Practitioner Cardiology 10/17/22 01/30/24 Maycol Infante MD [address] [place] [address]12 Specialist Pulmonology 10/19/22 Sebastian Martinez MD [address] [place] [address] 29944 Specialist Ophthalmology 03/21/23 Eve Juan MD [address] [place] [address] [place] [address] Specialist UROGYNECOLOGY 03/21/23 Elisa Romero NP [address] [place] [address] [place] [address] Cardiology 01/31/24 Marcus Murcia DO [address] [facility] [place] [address] Specialist Physiatry 03/26/24 documented as of this encounter
--- OUTSIDE RECORDS SUMMARY | 2024-09-17 17:54 | XMS_ITS | Encounter Summary ---
Author Organization [facility] Address [address] [place] [address] Care Team Providers Care Appeals Court Associate Justice Name Role Phone Wiley Thompson MD Primary Care Provider Kameron Cornejo MD Unavailable Katya Lopez NP Unavailable Unavailab Kathy Haley MD Primary Care Prov ider Be Pacheco NP Unavailable [phone] Maycol Infante MD Unavailable Unavailable Sebastian Martinez MD Unavailable UnavailEve Blackmon MD Unavailable Elisa Romero NP Unavailable [phone] Marcus Murcia DO Unavailable Unavailable Encounter Details Date Type Department Care Team Description 09/24/2019 Sales Advisor Report Medical Records [address] [place] [address] Matti Bansal Social History Tobacco Use Types [...] on filedocumented in this encounter Care Teams Appeals Court Associate Justice Relationship Specialty Start Date End Date Wiley Thompson MD PCP - General Internal Medicine 06/04/14 01/20/22 Kathy Christopher MD [address] [place] [address] 42582 PCP - General Internal Medicine 01/21/22 Kameron Zuñiga MD Manual Lathe Operator Cardiovascular Disease 08/04/21 Katya Lopez NP Cardiology 08/04/21 01/30/24 Be Pacheco NP [address] [place] [address] 87103 Nurse Practitioner Cardiology 10/17/22 01/30/24 Maycol Infante MD [address] [place] [address]38 Specialist Pulmonology 10/19/22 Sebastian Martinez MD [address] [place] [address] 60974 Specialist Ophthalmology 03/21/23 Eve Juan MD [address] [place] [address] [place] [address] Specialist UROGYNECOLOGY 03/21/23 Elisa Romero NP [address] [place] [address] [place] [address] Cardiology 01/31/24 Marcus Murcia DO [address] [place] [address] [place] [address] Specialist Physiatry 03/26/24 documented as of this encounter
--- OUTSIDE RECORDS SUMMARY | 2024-09-17 17:54 | XMS_ITS | Encounter Summary ---
Author Organization [facility] Address [address] [place] [address] Care Team Providers Care Pick Up Driver Name Role Phone Kameron Zuñiga MD Unavailable Kathy Christopher MD Primary Care Prov ider Maycol Infante MD Unavailable Unavailable Sebastian Martinez MD Unavailable UnavailEve Blackmon MD Unavailable Elisa Romero NP Unavailable [phone] Marcus Murcia DO Unavailable Unavailable Encounter Details Date Type Department Care Team Description 03/06/2024 Client Professional Report Medical Records [address] [place] [address] Pierre Oliva PA-C Social History Tobacco Use [...] on filedocumented in this encounter Care Teams Pick Up Driver Relationship Specialty Start Date End Date Kathy Christopher MD [address] [place] [address] PCP - General Internal Medicine 01/21/22 Kameron Zuñiga MD Dip Stand Loader Cardiovascular Disease 08/04/21 Maycol Infante MD [address] [place] [address] 26873 Specialist Pulmonology 10/19/22 Sebastian Martinez MD [address] [place] [address]672 Specialist Ophthalmology 03/21/23 Eve Juan MD [address] [place] [address] [place] [address] Specialist UROGYNECOLOGY 03/21/23 Elisa Romero NP [address] [place] [address] [place] [address] Cardiology 01/31/24 Marcus Murcia DO [address] [place] [address] [place] [address] Specialist Physiatry 03/26/24 documented as of this encounter
--- OUTSIDE RECORDS SUMMARY | 2024-09-17 17:54 | XMS_ITS | Encounter Summary ---
Author Organization [facility] Address [address] [place] [address] Care Team Providers Care Dairy Farm Operator Name Role Phone Kameron Zuñiga MD Unavailable Katya Lopez NP Unavailable Unavailab Kathy Haley MD Primary Care Prov ider Be Pacheco NP Unavailable Maycol Infante MD Unavailable Unavailable Sebastian Martinez MD Unavailable UnavailEve Blackmon MD Unavailable Elisa Romero NP Unavailable [phone] Marcus Murcia DO Unavailable Unavailable Encounter Details Date Type Department Care Team Description 10/14/2022 Wind Turbine Performance Engineer Report Medical Records [address] [place] [address] Maycol Infante MD Social History Tobacco Use [...] on filedocumented in this encounter Care Teams Dairy Farm Operator Relationship Specialty Start Date End Date Kathy Christopher MD [address] [place] [address] PCP - General Internal Medicine 01/21/22 Kameron Zuñiga MD Exhaust Tender Cardiovascular Disease 08/04/21 Katya Lopez NP Cardiology 08/04/21 01/30/24 Be Pacheco NP [address] [place] [address]117 Nurse Practitioner Cardiology 10/17/22 01/30/24 Maycol Infante MD [address] [place] [address]193 Specialist Pulmonology 10/19/22 Sebastian Martinez MD [address] [place] [address]76 Specialist Ophthalmology 03/21/23 Eve Juan MD [address] [place] [address] [place] [address] Specialist UROGYNECOLOGY 03/21/23 Elisa Romero NP [address] [place] [address] [place] [address] Cardiology 01/31/24 Marcus Murcia DO [address] [place] [address] [place] [address] Specialist Physiatry 03/26/24 documented as of this encounter
--- OUTSIDE RECORDS SUMMARY | 2024-09-17 17:54 | XMS_ITS | Encounter Summary ---
Author Organization [facility] Address [address] [place] [address] Care Team Providers Care Spiral Machine Operator Name Role Phone Wiley Thompson MD Primary Care Provider Kameron Cornejo MD Unavailable Katya Lopez HEALTHCARE MANAGEMENT CONSULTANT Unavailable Unavailab Kathy Haley MD Primary Care Prov ider Be Pacheco NP Unavailable [phone] Maycol Infante MD Unavailable Unavailable Sebastian Martinez MD Unavailable UnavailEve Blackmon MD Unavailable Elisa Romero NP Unavailable [phone] Marcus Murcia DO Unavailable Unavailable Encounter Details Date Type Department Care Team Description 12/18/2017 Employee Relations Assistant Report Medical Records [address] [place] [address] Asya Waller, IRMA Social History Tobacco Use [...] on filedocumented in this encounter Care Teams Spiral Machine Operator Relationship Specialty Start Date End Date Wiley Thompson MD PCP - General Internal Medicine 06/04/14 01/20/22 Kathy Christopher MD [address] [place] [address] PCP - General Internal Medicine 01/21/22 Kameron Zuñiga MD Career Transition Specialist Cardiovascular Disease 08/04/21 Katya Lopez, IRMA Cardiology 08/04/21 01/30/24 Be Pacheco NP [address] [place] [address] Nurse Practitioner Cardiology 10/17/22 01/30/24 Maycol Infante MD [address] [place] [address] Specialist Pulmonology 10/19/22 Sebastian Martinez MD [address] [place] [address]61 Specialist Ophthalmology 03/21/23 Eve Juan MD [address] [place] [address] [place] [address] Specialist UROGYNECOLOGY 03/21/23 Elisa Romero NP [address] [place] [address] [place] [address] Cardiology 01/31/24 Marcus Murcia DO [address] [place] [address] [place] [address] Specialist Physiatry 03/26/24 documented as of this encounter
--- OUTSIDE RECORDS SUMMARY | 2024-09-17 17:54 | XMS_ITS | Encounter Summary ---
Author Organization [facility] Address [address] [place] [address] Care Team Providers Care Reverse Logistics Analyst Name Role Phone Wiley Thompson MD Primary Care Provider Kameron Cornejo MD Unavailable Katya Lopez NP Unavailable Unavailab Kathy Christopher MD Primary Care Prov ider Be Pacheco NP Unavailable [phone] Maycol Infante MD Unavailable Unavailable Sebastian Martinez MD Unavailable UnavailEve Blackmon MD Unavailable Elisa Romero NP Unavailable [phone] Marcus Murcia DO Unavailable Unavailable Encounter Details Date Type Department Care Team Description 11/20/2017 Release of Information Medical Records [address] [place] [address] Abstract, Provider Social History Tobacco Use Types [...] on filedocumented in this encounter Care Teams Reverse Logistics Analyst Relationship Specialty Start Date End Date Wiley Thompson MD PCP - General Internal Medicine 06/04/14 01/20/22 Kathy Christopher MD [address] [place] [address] PCP - General Internal Medicine 01/21/22 Kameron Zuñiga MD Information Technology Associate Cardiovascular Disease 08/04/21 Katya Lopez, IRMA Cardiology 08/04/21 01/30/24 Be Pacheco NP [address] [place] [address] Nurse Practitioner Cardiology 10/17/22 01/30/24 Maycol Infante MD [address] [place] [address] Specialist Pulmonology 10/19/22 Sebastian Martinez MD [address] [place] [address] 27[address] Specialist Ophthalmology 03/21/23 Eve Juan MD [address] [place] [address] [place] [address] Specialist UROGYNECOLOGY 03/21/23 Elisa Romero NP [address] [place] [address] [place] [address] Cardiology 01/31/24 Marcus Murcia DO [address] [place] [address] [place] [address] Specialist Physiatry 03/26/24 documented as of this encounter
--- OUTSIDE RECORDS SUMMARY | 2024-09-17 17:54 | XMS_ITS | Encounter Summary ---
Author Organization [facility] Address [address] [place] [address] Care Team Providers Care Health Commissioner Name Role Phone Kameron Zuñiga MD Unavailable Katya Lopez NP Unavailable Unavailab le Kathy Christopher MD Primary Care Prov ider Be Pacheco NP Unavailable [phone] Maycol Infante MD Unavailable Unavailable Sebastian Martinez MD Unavailable UnavailEve Blackmon MD Unavailable Elisa Romero NP Unavailable [phone] Marcus Murcia DO Unavailable Unavailable Reason for Visit * Reason Onset Date Comments medication problems 03/18/2022 Encounter Details Date Type Department Care Team Description 03/18/2022 Telephone Adult Medicine [address] [phone] Kathy Christopher MD [address] [place] [address] [phone] medication problems Social History Tobacco Use Types [...] 1:31 PM EDT Lauren is calling from [employer]. 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 She is faxing over a form. If you have any questions her best call back number is [phone] option 1 REF#[id number]. * Telephone Encounter - Talia Fried M.A. [...] Please review * Telephone Encounter - Kathy Rizo MD - 03/18/2022 2:52 PM EDT I [...] on filedocumented in this encounter Care Teams Health Commissioner Relationship Specialty Start Date End Date Kathy Christopher MD [address] [place] [address] 40149 PCP - General Internal Medicine 01/21/22 Kameron Zuñiga MD Break And Load Operator Cardiovascular Disease 08/04/21 Katya Lopez NP Cardiology 08/04/21 01/30/24 Be Pacheco NP [address] [place] [address] 49921 Nurse Practitioner Cardiology 10/17/22 01/30/24 Maycol Infante MD [address] [place] [address] 19091 Specialist Pulmonology 10/19/22 Sebastian Martinez MD [address] [place] [address] 57600 Specialist Ophthalmology 03/21/23 Eve Juan MD [address] [place] [address] [place] [address] Specialist UROGYNECOLOGY 03/21/23 Elisa Romero NP [address] [place] [address] [place] [address] Cardiology 01/31/24 Marcus Murcia DO [address] [place] [address] [place] [address] Specialist Physiatry 03/26/24 documented as of this encounter
--- OUTSIDE RECORDS SUMMARY | 2024-09-17 17:54 | XMS_ITS | Encounter Summary ---
Author Organization [facility] Address [address] [place] [address] Care Team Providers Care Revenue Cycle Administrator Name Role Phone Kameron Zuñiga MD Unavailable Katya Lopez NP Unavailable Unavailab le Kathy Christopher MD Primary Care Prov ider Be Pacheco NP Unavailable [phone] Maycol Infante MD Unavailable Unavailable Sebastian Martinez MD Unavailable UnavailEve Blackmon MD Unavailable Elisa Romero NP Unavailable [phone] Marcus Murcia DO Unavailable Unavailable Encounter Details Date Type Department Care Team Description 09/26/2022 Hospital Medical Records [address] [place] [address] Social History Tobacco Use Types Packs/Day Years [...] on filedocumented in this encounter Care Teams Revenue Cycle Administrator Relationship Specialty Start Date End Date Kathy Christopher MD [address] [place] [address] PCP - General Internal Medicine 01/21/22 Kameron Zuñiga MD Primary Care Coordinator Cardiovascular Disease 08/04/21 Katya Lopez NP Cardiology 08/04/21 01/30/24 Be Pacheco NP [address] [place] [address] 61060 Nurse Practitioner Cardiology 10/17/22 01/30/24 Maycol Infante MD [address] [place] [address] 41804 Specialist Pulmonology 10/19/22 Sebastian Martinez MD [address] [place] [address] Specialist Ophthalmology 03/21/23 Eve Juan MD [address] [place] [address] [place] [address] Specialist UROGYNECOLOGY 03/21/23 Elisa Romero NP [address] [place] [address] [place] [address] Cardiology 01/31/24 Marcus Murcia DO [address] [place] [address] [place] [address] Specialist Physiatry 03/26/24 documented as of this encounter
--- OUTSIDE RECORDS SUMMARY | 2024-09-17 17:54 | XMS_ITS | Encounter Summary ---
Author Organization [facility] Address [address] [place] [address] Care Team Providers Care Baby Nurse Name Role Phone Wiley Thompson MD Primary Care Provider Kameron Cornejo MD Unavailable Katya Lopez NP Unavailable Unavailab Kathy Haley MD Primary Care Prov ider Be Pacheco NP Unavailable [phone] Maycol Infante MD Unavailable Unavailable Sebastian Martinez MD Unavailable UnavailEve Blackmon MD Unavailable Elisa Romero NP Unavailable [phone] Marcus Murcia DO Unavailable Unavailable Reason for Visit * Reason Onset Date Comments refill request 09/16/2019 Encounter Details Date Type Department Care Team Description 09/16/2019 Refill Adult Medicine [address] [address] Wiley Thompson MD refill request Social History [...] N/A Patients current insurance carrier is: Payor: [facility] MCR / Plan: [facility] $0 [facility] [id number] / Product Type: HMO [id number] documented in this encounter Plan of Treatment Not on file documented as of this encounter Visit Diagnoses Not on filedocumented in this encounter Care Teams Baby Nurse Relationship Specialty Start Date End Date Wiley Thompson MD PCP - General Internal Medicine 06/04/14 01/20/22 Kathy Christopher MD [address] [place] [address] PCP - General Internal Medicine 01/21/22 Kameron Zuñiga MD Multiple Tube Winding Machine Operator Cardiovascular Disease 08/04/21 Katya Lopez, IRMA Cardiology 08/04/21 01/30/24 Be Pacheco NP [address] [place] [address] 59546 Nurse Practitioner Cardiology 10/17/22 01/30/24 Maycol Infante MD [address] [place] [address] Specialist Pulmonology 10/19/22 Sebastian Martinez MD [address] [place] [address] Specialist Ophthalmology 03/21/23 Eve Juan MD [address] [place] [address] [place] [address] Specialist UROGYNECOLOGY 03/21/23 Elisa Romero NP [address] [place] [address] [place] [address] Cardiology 01/31/24 Marcus Murcia DO [address] [place] [address] [place] [address] Specialist Physiatry 03/26/24 documented as of this encounter
--- OUTSIDE RECORDS SUMMARY | 2024-09-17 17:54 | XMS_ITS | Encounter Summary ---
Author Organization [facility] Address [address] [place] [address] Care Team Providers Care Project Control Manager Name Role Phone Kameron Zuñiga MD Unavailable Katya Lopez NP Unavailable Unavailab Kathy Haley MD Primary Care Prov ider Be Pacheco NP Unavailable [phone] Maycol Infante MD Unavailable Unavailable Sebastian Martinez MD Unavailable UnavailEve Blackmon MD Unavailable Elisa Romero NP Unavailable [phone] Marcus Murcia DO Unavailable Unavailable Reason for Visit * Reason Onset Date Comments Hematuria 04/28/2022 Encounter Details Date Type Department Care Team Description 04/28/2022 Telephone Urogynecology [address] [phone] Eve Juan MD [address] [place] [address] Urogynecology [place], [place] Hematuria Social History Tobacco Use Types [...] on filedocumented in this encounter Care Teams Project Control Manager Relationship Specialty Start Date End Date Kathy Christopher MD [address] [place] [address] PCP - General Internal Medicine 01/21/22 Kameron Zuñiga MD Powder Line Repairer Cardiovascular Disease 08/04/21 Katya Lopez NP Cardiology 08/04/21 01/30/24 Be Pacheco NP [address] [place] [address] Nurse Practitioner Cardiology 10/17/22 01/30/24 Maycol Infante MD [address] [place], [place] [phone] Specialist Pulmonology 10/19/22 Sebastian Martinez MD [address] [place], [place] [phone] Specialist Ophthalmology 03/21/23 Eve Juan MD [address] [place] [address] [place] [address] Specialist UROGYNECOLOGY 03/21/23 Elisa Romero, IRMA [address] [place] [address] [place] [address] Cardiology 01/31/24 Marcus Murcia DO [address] [place] [address] [place] [address] Specialist Physiatry 03/26/24 documented as of this encounter
--- OUTSIDE RECORDS SUMMARY | 2024-09-17 17:54 | XMS_ITS | Encounter Summary ---
Author Organization [facility] Address [address] [place] [address] Care Team Providers Care Wire Bound Box Machine Helper Name Role Phone Wiley Thompson MD Primary Care Provider Kameron Cornejo MD Unavailable Katya Lopez NP Unavailable Unavailab Kathy Christopher MD Primary Care Prov ider Be Pacheco NP Unavailable [phone] Maycol Infante MD Unavailable Unavailable Sebastian Martinez MD Unavailable UnavailEve Blackmon MD Unavailable Elisa Romero NP Unavailable [phone] Marcus Murcia DO Unavailable Unavailable Encounter Details Date Type Department Care Team Description 11/23/2015 Transfer Records Medical Records [address] [place] [address] Abstract, Provider Social History Tobacco Use Types [...] on filedocumented in this encounter Care Teams Wire Bound Box Machine Helper Relationship Specialty Start Date End Date Wiley Thompson MD PCP - General Internal Medicine 06/04/14 01/20/22 Kathy Christopher MD [address] [place] [address] PCP - General Internal Medicine 01/21/22 Kameron Zuñiga MD Family And Consumer Sciences Professor Cardiovascular Disease 08/04/21 Katya Lopez NP Cardiology 08/04/21 01/30/24 Be Pacheco NP [address] [place] [address] Nurse Practitioner Cardiology 10/17/22 01/30/24 Maycol Infante MD [address] [place] [address] Specialist Pulmonology 10/19/22 Sebastian Martinez MD [address] [place] [address] Specialist Ophthalmology 03/21/23 Eve Juan MD [address] [place] [address] [place] [address] Specialist UROGYNECOLOGY 03/21/23 Elisa Romero NP [address] [place] [address] [place] [address] Cardiology 01/31/24 Marcus Murcia DO [address] [place] [address] [place] [address] Specialist Physiatry 03/26/24 documented as of this encounter
--- OUTSIDE RECORDS SUMMARY | 2024-09-17 17:54 | XMS_ITS | Encounter Summary ---
Author Organization [facility] Address [address] [place] [address] Care Team Providers Care Furniture Assembler And Installer Name Role Phone Wiley Thompson MD Primary Care Provider Kameron Cornejo MD Unavailable Katya Lopez NP Unavailable Unavailab Kathy Christopher MD Primary Care Prov ider Be Pacheco NP Unavailable [phone] Maycol Infante MD Unavailable Unavailable Sebastian Martinez MD Unavailable UnavailEve Blackmon MD Unavailable Elisa Romero NP Unavailable Marcus Murcia DO Unavailable Unavailable Encounter Details Date Type Department Care Team Description 03/09/2015 Transfer Records Medical Records [address] [place] [address] [facility] Social History Tobacco Use Types Packs/Day [...] on filedocumented in this encounter Care Teams Furniture Assembler And Installer Relationship Specialty Start Date End Date Wiley Thompson MD PCP - General Internal Medicine 06/04/14 01/20/22 Kathy Christopher MD [address] [place] [address] PCP - General Internal Medicine 01/21/22 Kameron Zuñiga MD Form Tamper Cardiovascular Disease 08/04/21 Katya Lopez NP Cardiology 08/04/21 01/30/24 Be Pacheco NP [address] [place] [address] Nurse Practitioner Cardiology 10/17/22 01/30/24 Maycol Infante MD [address] [place] [address] Specialist Pulmonology 10/19/22 Sebastian Martinez MD [address] [place], [place] [address] Specialist Ophthalmology 03/21/23 Eve Juan MD [address] [place] [address] [place] [address] Specialist UROGYNECOLOGY 03/21/23 Elisa Romero NP [address] [place] [address] [place] [address] Cardiology 01/31/24 Marcus Murcia DO [address] [place] [address] [place] [address] Specialist Physiatry 03/26/24 documented as of this encounter
--- OUTSIDE RECORDS SUMMARY | 2024-09-17 17:54 | XMS_ITS | Encounter Summary ---
Author Organization [facility] Address [address] [place] [address] Care Team Providers Care Pump Machine Operator Name Role Phone Kameron Zuñiga MD Unavailable Katya Lopez NP Unavailable Unavailab le Kathy Christopher MD Primary Care Prov ider Be Pacheco NP Unavailable [phone] Maycol Infante MD Unavailable Unavailable Sebastian Martinez MD Unavailable UnavailEve Blackmon MD Unavailable Elisa Romero NP Unavailable [phone] Marcus Murcia DO Unavailable Unavailable Encounter Details Date Type Department Care Team Description 09/26/2022 Hospital Medical Records [address] [place] [address] [facility] Social History Tobacco Use Types Packs/Day [...] on filedocumented in this encounter Care Teams Pump Machine Operator Relationship Specialty Start Date End Date Kathy Christopher MD [address] [place] [address] [phone] PCP - General Internal Medicine 01/21/22 Kameron Zuñiga MD Sales And Service Agent Cardiovascular Disease 08/04/21 Katya Lopez NP Cardiology 08/04/21 01/30/24 Be Pacheco NP [address] [place] [address] Nurse Practitioner Cardiology 10/17/22 01/30/24 Maycol Infante MD [address] [place] [address] Specialist Pulmonology 10/19/22 Sebastian Martinez MD [address] [place] [address] Specialist Ophthalmology 03/21/23 Eve Juan MD [address] [place] [address] [place] [address] Specialist UROGYNECOLOGY 03/21/23 Eilsa Romero NP [address] [place] [address] [place] [address] Cardiology 01/31/24 Marcus Murcia DO [address] [place] [address] [place] [address] Specialist Physiatry 03/26/24 documented as of this encounter
--- OUTSIDE RECORDS SUMMARY | 2024-09-17 17:54 | XMS_ITS | Encounter Summary ---
Author Organization [facility] Address [address] [place] [address] Care Team Providers Care Vat Overhauler Name Role Phone Wiley Thompson MD Primary Care Provider Kameron Cornejo MD Unavailable Katya Lopez NP Unavailable Unavailab Kathy Christopher MD Primary Care Prov ider Be Pacheco NP Unavailable [phone] Maycol Infante MD Unavailable Unavailable Sebastian Martinez MD Unavailable UnavailEve Blackmon MD Unavailable Elisa Romero NP Unavailable [phone] Marcus Murcia DO Unavailable Unavailable Encounter Details Date Type Department Care Team Description 05/26/2015 CREEL OPERATOR/[facility] Report Medical Records [address] [place] [address] Abstract, Provider Social History Tobacco Use Types [...] on filedocumented in this encounter Care Teams Vat Overhauler Relationship Specialty Start Date End Date Wiley Thompson MD PCP - General Internal Medicine 06/04/14 01/20/22 Kathy Christopher MD [address] [place] [address] PCP - General Internal Medicine 01/21/22 Kameron Zuñiga MD Trace Clerk Cardiovascular Disease 08/04/21 Katya Lopez NP Cardiology 08/04/21 01/30/24 Be Pacheco NP [address] [place] [address] Nurse Practitioner Cardiology 10/17/22 01/30/24 Maycol Infante MD [address] [place] [address] Specialist Pulmonology 10/19/22 Sebastian Martinez MD [address] [place], [place] [phone] Specialist Ophthalmology 03/21/23 Eve Juan MD [address] [place] [address] [place] [address] Specialist UROGYNECOLOGY 03/21/23 Elisa Romero NP [address] [place] [address] [place] [address] Cardiology 01/31/24 Marcus Murcia DO [address] [place] [address] [place] [address] Specialist Physiatry 03/26/24 documented as of this encounter
--- OUTSIDE RECORDS SUMMARY | 2024-09-17 17:54 | XMS_ITS | Encounter Summary ---
Author Organization [facility] Address [address] [place] [address] Care Team Providers Care Training Associate Name Role Phone Kameron Zuñiga MD Unavailable Katya Lopez NP Unavailable Unavailab Kathy Haley MD Primary Care Prov ider Be Pacheco NP Unavailable [phone] Maycol Infante MD Unavailable Unavailable Sebastian Martinez MD Unavailable UnavailEve Blackmon MD Unavailable Elisa Romero NP Unavailable [phone] Marcus Murcia DO Unavailable Unavailable Encounter Details Date Type Department Care Team Description 05/07/2022 Hospital Medical Records [address] [place] [address] Branden Mariscal Social History Tobacco Use Types Packs/Day Years [...] suspected to have Coronavirus/COVID-19? No / Unsure 05/02/2022 9:47 AM EST documented as of this encounter Plan of Treatment Not on file documented as of this encounter Procedures Procedure Name Priority Date/Time Associated Diagnosis Comments OUTSIDE LAB Routine 05/07/2022 documented in this encounter Results * OUTSIDE LAB (05/07/2022) Provider Abstract LAB documented in this encounter Visit Diagnoses Not on filedocumented in this encounter Care Teams Training Associate Relationship Specialty Start Date End Date Kathy Christopher MD [address] [place] [address] PCP - General Internal Medicine 01/21/22 Kameron Zuñiga MD Pipe Roller Cardiovascular Disease 08/04/21 Katya Lopez NP Cardiology 08/04/21 01/30/24 Be Pacheco NP [address] [place] [address] 14987 Nurse Practitioner Cardiology 10/17/22 01/30/24 Maycol Infante MD [address] [place] [address] Specialist Pulmonology 10/19/22 Sebastian Martinez MD [address] [place] [address] Specialist Ophthalmology 03/21/23 Eve Juan MD [address] [place] [address] [place] [address] Specialist UROGYNECOLOGY 03/21/23 Elisa Romero NP [address] [place] [address] [place] [address] Cardiology 01/31/24 Marcus Murcia DO [address] [place] [address] [place] [address] Specialist Physiatry 03/26/24 documented as of this encounter
--- OUTSIDE RECORDS SUMMARY | 2024-09-17 17:54 | XMS_ITS | Encounter Summary ---
Author Organization [facility] Address [address] [place] [address] Care Team Providers Care Solar Maintenance Technician Name Role Phone Bri Santacruz MD Primary Care Provider Unavailable Wiley Thompson MD Primary Care Provider Kameron Cornejo MD Unavailable Katya Lopez NP Unavailable Unavailab Kathy Haley MD Primary Care Prov ider Be Pacheco NP Unavailable [phone] Maycol Infante MD Unavailable Unavailable Sebastian Martinez MD Unavailable UnavailEve Blacmkon MD Unavailable Elisa Romero NP Unavailable [phone] Marcus Murcia DO Unavailable Unavailable Encounter Details Date Type Department Care Team Description 10/01/2013 Scutcher Tender Report Medical Records [address] [place] [address] Abstract, Provider Social History Tobacco Use Types [...] on filedocumented in this encounter Care Teams Solar Maintenance Technician Relationship Specialty Start Date End Date Bri Santacruz MD PCP - General Internal Medicine 04/23/12 06/03/14 Wiley Thompson MD PCP - General Internal Medicine 06/04/14 01/20/22 Kathy Christopher MD [address] [place] [address] PCP - General Internal Medicine 01/21/22 Kameron Zuñiga MD Ceramic Tile Installation Helper Cardiovascular Disease 08/04/21 Katya Lopez NP Cardiology 08/04/21 01/30/24 Be Pacheco NP [address] [place] [address] Nurse Practitioner Cardiology 10/17/22 01/30/24 Maycol Infante MD [address] [place] [address] Specialist Pulmonology 10/19/22 Sebastian Martinez MD [address] [place] [address] Specialist Ophthalmology 03/21/23 Eve Juan MD [address] [place] [address] [place] [address] Specialist UROGYNECOLOGY 03/21/23 Elisa Romero NP [address] [place] [address] [place] [address] Cardiology 01/31/24 Marcus Murcia DO [address] [place] [address] [place] [address] Specialist Physiatry 03/26/24 documented as of this encounter
--- OUTSIDE RECORDS SUMMARY | 2024-09-17 17:54 | XMS_ITS | Encounter Summary ---
Author Organization [facility] Address [address] [place] [address] Care Team Providers Care Laboratory Mechanical Technician Name Role Phone Wiley Thompson MD Primary Care Provider Kameron Cornejo MD Unavailable Katya Lopez NP Unavailable Unavailab Kathy Haley MD Primary Care Prov ider Be Pacheco NP Unavailable [phone] Maycol Infante MD Unavailable Unavailable Sebastian Martinez MD Unavailable UnavailEve Blackmon MD Unavailable Elisa Romero NP Unavailable [phone] Marcus Murcia DO Unavailable Unavailable Reason for Visit * Reason Comments E-prescribe Rx Request Encounter Details Date Type Department Care Team Description 08/15/2017 Refill Adult Medicine [address] [address] Wiley Thompson MD E-prescribe Rx Request Social [...] NO Patients current insurance carrier is: Payor: [facility] MCR / Plan: [employer] $[facility] [id number] / Product Type: [employer] [id number] documented in this encounter Plan of Treatment Not on file documented as of this encounter Visit Diagnoses Not on filedocumented in this encounter Care Teams Laboratory Mechanical Technician Relationship Specialty Start Date End Date Wiley Thompson MD PCP - General Internal Medicine 06/04/14 01/20/22 Kathy Christopher MD [address] [place] [address] PCP - General Internal Medicine 01/21/22 Kameron Zuñiga MD Store Administrative Assistant Cardiovascular Disease 08/04/21 Katya Lopez NP Cardiology 08/04/21 01/30/24 Be Pacheco NP [address] [place] [address] Nurse Practitioner Cardiology 10/17/22 01/30/24 Maycol Infante MD [address] [place] [address] Specialist Pulmonology 10/19/22 Sebastian Martinez MD [address] [place] [address] Specialist Ophthalmology 03/21/23 Eve Juan MD [address] [place] [address] [place] [address] Specialist UROGYNECOLOGY 03/21/23 Elisa Romero NP [address] [place] [address] [place] [address] Cardiology 01/31/24 Marcus Murcia DO [address] [place] [address] [place] [address] Specialist Physiatry 03/26/24 documented as of this encounter
--- OUTSIDE RECORDS SUMMARY | 2024-09-17 17:54 | XMS_ITS | Encounter Summary ---
Author Organization [facility] Address [address] [place] [address] Care Team Providers Care Stagecraft Teacher Name Role Phone Kameron Zuñiga MD Unavailable Katya Lopez NP Unavailable Unavailab Kathy Haley MD Primary Care Prov ider Be Pacheco NP Unavailable [phone] Maycol Infante MD Unavailable Unavailable Sebastian Martinez MD Unavailable UnavailEve Blackmon MD Unavailable Elisa Romero NP Unavailable [phone] Marcus Murcia DO Unavailable Unavailable Reason for Visit * Reason Onset Date Comments other 01/31/2022 high blood press ure Encounter Details Date Type Department Care Team Description 01/31/2022 Telephone Cardio PVCA Diag Testing 101 [address] [facility] [address] [place], [place] [phone] Kameron Zuñiga MD [address] [place] [address] [phone] other (high blood pressure) Social History Tobacco [...] calls back. * Telephone Encounter - Debra Mesesr R.N. - 01/31/2022 3:59 PM EDT Pts daughter called concerned about her mother, daughter lives in [place]. I did try to call pt to [...] on filedocumented in this encounter Care Teams Stagecraft Teacher Relationship Specialty Start Date End Date Kathy Christopher MD [address] [place] [address] 47[address] PCP - General Internal Medicine 01/21/22 Kameron Zuñiga MD Enterprise Sales Person Cardiovascular Disease 08/04/21 Katya Lopez NP Cardiology 08/04/21 01/30/24 Be Pacheco NP [address] [place] [address] 52951 Nurse Practitioner Cardiology 10/17/22 01/30/24 Maycol Infante MD [address] [place] [address] Specialist Pulmonology 10/19/22 Sebastian Martinez MD [address] [place] [address] Specialist Ophthalmology 03/21/23 Eve Juan MD [address] [place] [address] [place] [address] Specialist UROGYNECOLOGY 03/21/23 Elisa Romero NP [address] [place] [address] [place] [address] Cardiology 01/31/24 Marcus Murcia DO [address] [place] [address] [place] [address] Specialist Physiatry 03/26/24 documented as of this encounter
--- OUTSIDE RECORDS SUMMARY | 2024-09-17 17:54 | XMS_ITS | Encounter Summary ---
Author Organization [facility] Address [address] [place] [address] Care Team Providers Care Manager Infrastructure Name Role Phone Bri Santacruz MD Primary Care Provider Unavailable Wiley Thompson MD Primary Care Provider Kameron Cornejo MD Unavailable Katya Lopez NP Unavailable Unavailab Kathy Haley MD Primary Care Prov ider Be Pacheco NP Unavailable [phone] Maycol Infante MD Unavailable Unavailable Sebastian Martinez MD Unavailable UnavailEve Blackmon MD Unavailable Elisa Romero NP Unavailable [phone] Marcus Murcia DO Unavailable Unavailable Reason for Visit * Reason Onset Date Comments Headache 12/25/2013 Encounter Details Date Type Department Care Team Description 12/25/2013 Telephone Adult Medicine [address] [phone] Bri Santacruz MD Headache Social History Tobacco Use Types Packs/Day Years [...] encounter Miscellaneous Notes * Telephone Encounter - Annie Castro R.N. - 12/25/2013 5:27 PM EDT Pt has had a headache for 3 days, no change with OTC meds Pt has no chest pain or SOB, denies any N/V/D or fever, she has a headache right over dillon eyes and the pain radiaites to the back of the head, no change in vision, feels a pressure behind her eyes, she has not been dizzy or weak, Pt to see susan douglass on 12/27 at 11:00, she is unable to come in tomorrow due to transportation. Advised home care following the HTN Protocol. RN reinforced telephone consultation and advice. Reviewed with the patient the signs and symptoms to watch for that would require immediate attention. If symptoms change, worsen or increase in intensity, to call back immediately. Past Medical History Diagnosis Date ??? Asthma 07/17/2012 ??? HTN (hypertension) 07/17/2012 ??? Insomnia 07/17/2012 ??? GERD (gastroesophageal reflux disease) 07/17/2012 ??? Diabetes type 2, controlled 07/17/2012 ??? Allergic rhinitis 07/17/2012 ??? Gastroparesis 07/17/2012 ??? Osteoarthritis ??? Anxiety 06/18/2013 Outpatient Prescriptions Prior to Visit Medication Sig Dispense Refill ??? Zolpidem Tartrate 10 MG TABS Take 1 Tab by mouth at bedtime. 28 Tab 0 ??? metoprolol (TOPROL-XL) 25 MG 24 hr tablet Take 1 Tab by mouth daily. 90 Tab 1 ??? citalopram (CELEXA) 10 MG tablet Take 1 Tab by mouth daily. 90 Tab 1 ??? fluticasone 50 MCG/ACT nasal spray 2 Sprays by Each Nare route daily. 3 Bottle 1 ??? cetirizine (ZYRTEC) 10 MG tablet Take 1 Tab by mouth daily. 90 Tab 1 ??? lovastatin (MEVACOR) 20 MG tablet TOME JABARI TABLETA POR VIA ORAL [place]OS [place] 30 Tab 5 ??? Zolpidem Tartrate 5 MG TABS Take 1 Tab by mouth at bedtime as needed for Insomnia. 28 Tab 0 ??? hydrocortisone 0.5 % cream Apply sparingly on the rash daily for 10 days 30 g 0 ??? Oxygen Historical (HISTORICAL OXYGEN) 2 L by Nasal route at bedtime. [facility] ??? omeprazole (PRILOSEC) 20 MG capsule Take 20 mg by mouth daily. ??? Methylcellulose, Laxative, (CITRUCEL) 500 MG TABS Take 2 Tabs by mouth 2 times daily. ??? budesonide-formoterol (SYMBICORT) 160-4.5 MCG/ACT inhaler Inhale 2 Puffs into the lungs every 12 hours. use with chamber, rinse, gargle and spit after 2nd inhalation 1 Inhaler 11 ??? SPACER DEVICE-ADULT Use with inhaler 1 Device 0 ??? Linaclotide (LINZESS) 145 MCG CAPS Take 1 tablet by mouth daily. ??? ammonium lactate (LAC-HYDRIN) 12 % lotion Apply to the skin daily 400 g 0 ??? albuterol (PROVENTIL) (2.5 MG/3ML) 0.083% nebulizer solution Take 1 Vial by nebulization every 6 hours as needed for Wheezing or Shortness of Breath. 120 mL 5 ??? ALBUTEROL SULFATE 108 (90 BASE) MCG/ACT AERS Inhale 2 Puffs into the lungs every 4 hours as needed for Cough or Wheezing. 1 Inhaler 5 No facility-administered medications prior to visit. * Telephone Encounter - Elsie Seay - 12/25/2013 2:15 PM EDT Symptoms patient is presenting: Sever headache, patient not sure if it may have to do with her blood pressure How long has patient had these symptoms?: PCP: Bri Santacruz Payor: [facility] M[facility] / Plan: HMO $0 [place] / Product Type: O [id number] documented in this encounter Plan of Treatment Not on file documented as of this encounter Visit Diagnoses Not on filedocumented in this encounter Care Teams Manager Infrastructure Relationship Specialty Start Date End Date Bri Santacruz MD PCP - General Internal Medicine 04/23/12 06/03/14 Wiley Thompson MD PCP - General Internal Medicine 06/04/14 01/20/22 Kathy Christopher MD [address] [place] [address] PCP - General Internal Medicine 01/21/22 Kameron Zuñiga MD Gate Watchman Cardiovascular Disease 08/04/21 Katya Lopez NP Cardiology 08/04/21 01/30/24 Be Pacheco NP [address] [place] [address] 98604 Nurse Practitioner Cardiology 10/17/22 01/30/24 Maycol Infante MD [address] [place] [address] Specialist Pulmonology 10/19/22 Sebastian Martinez MD [address] [place] [address] Specialist Ophthalmology 03/21/23 Eve Juan MD [address] [place] [address] [place] [address] Specialist UROGYNECOLOGY 03/21/23 Elisa Romero NP [address] [place] [address] [place] [address] Cardiology 01/31/24 Marcus Murcia DO [address] [place] [address] [place] [address] Specialist Physiatry 03/26/24 documented as of this encounter
--- OUTSIDE RECORDS SUMMARY | 2024-09-17 17:54 | XMS_ITS | Encounter Summary ---
Author Organization [facility] Address [address] [place] [address] Care Team Providers Care Clerk Rating Name Role Phone Wiley Thompson MD Primary Care Provider Kameron Cornejo MD Unavailable Katya Lopez COMMUNICATION INSTRUCTOR Unavailable Unavailab Kathy Christopher MD Primary Care Prov ider Be Pacheco NP Unavailable [phone] Maycol Infante MD Unavailable Unavailable Sebastian Martinez MD Unavailable UnavailEve Blackmon MD Unavailable Elisa Romero NP Unavailable [phone] Marcus Murcia DO Unavailable Unavailable Encounter Details Date Type Department Care Team Description 11/21/2019 Outpatient Dietitian Report Medical Records [address] [place] [address] Maycol Infante MD Social History Tobacco Use [...] on filedocumented in this encounter Care Teams Clerk Rating Relationship Specialty Start Date End Date Wiley Thompson MD PCP - General Internal Medicine 06/04/14 01/20/22 Kathy Christopher MD [address] [place] [address] 29847 PCP - General Internal Medicine 01/21/22 Kameron Zuñiga MD Printing Pressman Cardiovascular Disease 08/04/21 Katya Lopez, IRMA Cardiology 08/04/21 01/30/24 Be Pacheco NP [address] [place] [address] 36317 Nurse Practitioner Cardiology 10/17/22 01/30/24 Maycol Infante MD [address] [place] [address] 15452 Specialist Pulmonology 10/19/22 Sebastian Martinez MD [address] [place] [address]22 Specialist Ophthalmology 03/21/23 Eve Juan MD [address] [place] [address] [place] [address] Specialist UROGYNECOLOGY 03/21/23 Elisa Romero NP [address] [place] [address] [place] [address] Cardiology 01/31/24 Marcus Murcia DO [address] [place] [address] [place] [address] Specialist Physiatry 03/26/24 documented as of this encounter
--- OUTSIDE RECORDS SUMMARY | 2024-09-17 17:54 | XMS_ITS | Encounter Summary ---
Author Organization [facility] Address [address] [place] [address] Care Team Providers Care Cargo Services Coordinator Name Role Phone Wiley Thompson MD Primary Care Provider Kameron Cornejo MD Unavailable Katya Lopez NP Unavailable Unavailab Kathy Haley MD Primary Care Prov ider Be Pacheco NP Unavailable [phone] Maycol Infante MD Unavailable Unavailable Sebastian Martinez MD Unavailable UnavailEve Blackmon MD Unavailable Elisa Romero NP Unavailable [phone] Marcus Murcia DO Unavailable Unavailable Encounter Details Date Type Department Care Team Description 02/27/2015 Hospital Medical Records [address] [place] [address] Yeimi Jiménez Social History Tobacco Use Types Packs/Day Years [...] on filedocumented in this encounter Care Teams Cargo Services Coordinator Relationship Specialty Start Date End Date Wiley Thompson MD PCP - General Internal Medicine 06/04/14 01/20/22 Kathy Christopher MD [address] [place] [address]252 PCP - General Internal Medicine 01/21/22 Kameron Zuñiga MD Maintenance Inspector Cardiovascular Disease 08/04/21 Katya Lopez, IRMA Cardiology 08/04/21 01/30/24 Be Pacheco NP [address] [place] [address]111 Nurse Practitioner Cardiology 10/17/22 01/30/24 Maycol Infante MD [address] [place] [address] Specialist Pulmonology 10/19/22 Sebastian Martinez MD [address] [place] [address]78 Specialist Ophthalmology 03/21/23 Eve Juan MD [address] [place] [address] [place] [address] Specialist UROGYNECOLOGY 03/21/23 Elisa Romero NP [address] [place] [address] [place] [address] Cardiology 01/31/24 Marcus Murcia DO [address] [place] [address] [place] [address] Specialist Physiatry 03/26/24 documented as of this encounter
--- OUTSIDE RECORDS SUMMARY | 2024-09-17 17:54 | XMS_ITS | Encounter Summary ---
Author Organization [facility] Address [address] [place] [address] Care Team Providers Care Clay Worker Name Role Phone Kameron Zuñiga MD Unavailable Katya Lopez NP Unavailable Unavailab Kathy Haley MD Primary Care Prov ider Be Pacheco NP Unavailable [phone] Maycol Infante MD Unavailable Unavailable Sebastian Martinez MD Unavailable UnavailEve Blackmon MD Unavailable Elisa Romero NP Unavailable [phone] Marcus Murcia DO Unavailable Unavailable Reason for Visit * Reason Comments E-prescribe Rx Request Encounter Details Date Type Department Care Team Description 08/05/2022 Refill Adult Medicine [address] [phone] Ratna Santa PA-C [address] [place] [address] [phone] E-prescribe Rx Request Social History Tobacco Use [...] Telephone Encounter - Ilene Jon C.M.A. - 08/09/2022 4:23 PM EST Images from the original note were not included. Rx for lopressor 75 daily. Please see copied TC from 02/2022 which reflecs change of dose . The patient was originally on Metoprolol succ 50mg managed by [facility]. I believe Tartrate formulation was sent in error. Left message for patient to verify dose and give us a call or send prescription information to verify medication and dose. * Telephone Encounter - Yuli Laguerre M.A. - 08/09/2022 1:33 PM EST Please review pharmacy refill request prescribed by [facility], thank you. * Telephone Encounter - Juan Mock MD - 08/09/2022 8:32 AM EST Pt on metoprolol tartrate that is prescribed by cardiology. * Telephone Encounter - Jacquelyn Reis M.A. - 08/07/2022 2:38 PM EST Last ov 08/04/22 with Upcoming sylvain 10/19/22 with Skye Last ref BP Readings from Last 5 Encounters: 07/15/22 120/65 06/21/22 122/65 05/16/22 (!) 148/82 05/03/22 130/60 05/02/22 122/62 documented in this encounter Plan of Treatment Not on file documented as of this encounter Visit Diagnoses Not on filedocumented in this encounter Care Teams Clay Worker Relationship Specialty Start Date End Date Kathy Christopher MD [address] [place] [address] PCP - General Internal Medicine 01/21/22 Kameron Zuñiga MD Judo Teacher Cardiovascular Disease 08/04/21 Katya Lopez NP Cardiology 08/04/21 01/30/24 Be Pacheco NP [address] [place] [address] 42264 Nurse Practitioner Cardiology 10/17/22 01/30/24 Maycol Infante MD [address] [place] [address] 9[address]63 Specialist Pulmonology 10/19/22 Sebastian Martinez MD [address] [place], [place] [phone] Specialist Ophthalmology 03/21/23 Eve Juan MD [address] [place] [address] [place] [address] Specialist UROGYNECOLOGY 03/21/23 Elisa Romero NP [address] [place] [address] [place] [address] Cardiology 01/31/24 Marcus Murcia DO [address] [place] [address] [place] [address] Specialist Physiatry 03/26/24 documented as of this encounter
--- OUTSIDE RECORDS SUMMARY | 2024-09-17 17:54 | XMS_ITS | Encounter Summary ---
Author Organization [facility] Address [address] [place] [address] Care Team Providers Care Rv Service Technician Name Role Phone Wiley Thompson MD Primary Care Provider Kameron Cornejo MD Unavailable Katya Lopez NP Unavailable Unavailab Kathy Haley MD Primary Care Prov ider Be Pacheco NP Unavailable [phone] Maycol Infante MD Unavailable Unavailable Sebastian Martinez MD Unavailable UnavailEve Blackmon MD Unavailable Elisa Romero NP Unavailable [phone] Marcus Murcia DO Unavailable Unavailable Reason for Visit * Reason Onset Date Comments Blood Sugar Elevated 11/29/2017 Encounter Details Date Type Department Care Team Description 11/29/2017 Telephone Adult Medicine [address] [address] Wiley Thompson MD Blood Sugar Elevated Social History Tobacco Use Types Packs/Day [...] encounter Miscellaneous Notes * Telephone Encounter - Kim Martinez R.N. - 11/29/2017 1:29 PM EDT Pt states since Monday11/27/17 she has had a headache with blurred vision; pt states vision changesare new; pt wears glasses noting she had seen eye DRJose Cruz In recent past; pt notes dizziness ongoing w/headache x 2 days; pt states her upper mid abdomen feels bloated; denies chest pain; denies SOB at rest; notes feeling faint in grocery store 2 days ago; denies injury; denies falls; pt denies abd. Pain; c/o lower back pressure ; denies diarrhea or vomiting; reports right leg swelling began last night was improved after taking water pill and elevating legs overnite. Pt advised to go to ED today. Pt agreed. * Telephone Encounter - Filomena Glynn - 11/29/2017 12:01 PM EDT Symptoms patient is presenting: elevated blood sugar/ 169 few minutes ago/ not feeling well If pain or injury related was it due to an accident at work or from a motor vehicle accident? NO If yes, gather 3rd republican insurance information Date of accident/Injury: How long has patient had these symptoms?: 3 days PCP: Wiley Thompson Payor: [facility] / [id number] / Product Type: HMO [id number] documented in this encounter Plan of Treatment Not on file documented as of this encounter Visit Diagnoses Not on filedocumented in this encounter Care Teams Rv Service Technician Relationship Specialty Start Date End Date Wiley Thompson MD PCP - General Internal Medicine 06/04/14 01/20/22 Kathy Christopher MD [address] [place] [address]251 PCP - General Internal Medicine 01/21/22 Kameron Zuñiga MD Architectural Engineer Cardiovascular Disease 08/04/21 Katya Lopez NP Cardiology 08/04/21 01/30/24 Be Pacheco NP [address] [place] [address] 75792 Nurse Practitioner Cardiology 10/17/22 01/30/24 Maycol Infante MD [address] [place] [address] 10392 Specialist Pulmonology 10/19/22 Sebastian Martinez MD [address] [place], [place] [phone] Specialist Ophthalmology 03/21/23 Eve Juan MD [address] [place] [address] [place] [address] Specialist UROGYNECOLOGY 03/21/23 Elisa Romero NP [address] [place] [address] [place] [address] Cardiology 01/31/24 Marcus Murcia DO [address] [place] [address] [place] [address] Specialist Physiatry 03/26/24 documented as of this encounter
--- OUTSIDE RECORDS SUMMARY | 2024-09-17 17:54 | XMS_ITS | Encounter Summary ---
Author Organization [facility] Address [address] [place] [address] Care Team Providers Care Family Health Nurse Practitioner Name Role Phone Wiley Thompson MD Primary Care Provider Kameron Cornejo MD Unavailable Katya Lopez NP Unavailable Unavailab Kathy Haley MD Primary Care Prov ider Be Pacheco NP Unavailable [phone] Maycol Infante MD Unavailable Unavailable Sebastian Martinez MD Unavailable UnavailEve Blackmon MD Unavailable Elisa Romero NP Unavailable [phone] Marcus Murcia DO Unavailable Unavailable Reason for Referral * Radiology Services (Routine) - Closed Specialty Diagnoses / Procedures Referred By Contac t Referred To Contact Radiology Diagnoses Recurrent sinus infections Procedures CAT SCAN OF SINUSES NO CONTRAST Leilani Colindres APRN [address] [place] [address] [place] [address] [place] [address] Referral ID Status Reason Start Date Expiration Date V isits Requested Visits Authorized CCA APPROVED Closed 09/12/2017 11/11/2017 1 1 Reason for Visit * Reason Onset Date Comments Provider Call Back 09/12/2017 Encounter Details Date Type Department Care Team Description 09/12/2017 Telephone Adult Medicine [facility] [address] [place] [phone] Leilani Colindres APRN Provider Call Back Social [...] disease. 5. Additional findings, as detailed above. [facility] CT SCANS JAZZMINE PADILLA OTHER EXTERNAL documented in this encounter Visit Diagnoses Diagnosis Recurrent sinus infections- Primary Unspecified sinusitis (chronic) Recurrent sinus infections Unspecified sinusitis (chronic) documented in this encounter Care Teams Family Health Nurse Practitioner Relationship Specialty Start Date End Date Wiley Thompson MD PCP - General Internal Medicine 06/04/14 01/20/22 Kathy Christopher MD [address] [place] [address] PCP - General Internal Medicine 01/21/22 Kameron Zuñiga MD Butadiene Converter Operator Cardiovascular Disease 08/04/21 Katya Lopez NP Cardiology 08/04/21 01/30/24 Be Pacheco NP [address] [place] [address] 50771 Nurse Practitioner Cardiology 10/17/22 01/30/24 Maycol Infante MD [address] [place] [address] Specialist Pulmonology 10/19/22 Sebastian Martinez MD [address] [place], [place] [phone] Specialist Ophthalmology 03/21/23 Eve Juan MD [address] [place] [address] [place] [address] Specialist UROGYNECOLOGY 03/21/23 Elisa Romero NP [address] [place] [address] [place] [address] Cardiology 01/31/24 Marcus Murcia DO [address] [place] [address] [place] [address] Specialist Physiatry 03/26/24 documented as of this encounter
--- OUTSIDE RECORDS SUMMARY | 2024-09-17 17:54 | XMS_ITS | Encounter Summary ---
Author Organization [facility] Address [address] [place] [address] Care Team Providers Care Training Lead Name Role Phone Kathy Perez MD Primary Care Prov ider Reason for Visit * Reason Onset Date Comments Referral 09/06/2024 Encounter Details Date Type Department Care Team (Late st Contact Info) Description 09/06/2024 Telephone Adult Medicine [address] [phone] Kathy Perez MD [address] [place] [address] Referral Social History Tobacco Use Types Packs/Day [...] Description 10/03/2024 9:50 AM EDT Office Visit [facility] [address] [phone] Kameron Zuñiga MD [address] [address] 01/28/2025 1:15 PM EDT Office Visit [address] [phone] Kathy Perez MD [address] [place] [address] documented as of this encounter Visit Diagnoses Not on filedocumented in this encounter Care Teams Training Lead Relationship Specialty Start Date End Date Kathy Perez MD [address] [place] [address] PCP - General Internal Medicine 07/22/24 documented as of this encounter
--- OUTSIDE RECORDS SUMMARY | 2024-09-17 17:54 | XMS_ITS | Encounter Summary ---
Author Organization [facility] Address [address] [place] [address] Care Team Providers Care Branding Machine Tender Name Role Phone Wiley Thompson MD Primary Care Provider Kameron Cornejo MD Unavailable Katya Lopez NP Unavailable Unavailab Kathy Haley MD Primary Care Prov ider Be Pacheco NP Unavailable [phone] Maycol Infante MD Unavailable Unavailable Sebastian Martinez MD Unavailable UnavailEve Blackmon MD Unavailable Elisa Romero NP Unavailable [phone] Marcus Murcia DO Unavailable Unavailable Encounter Details Date Type Department Care Team Description 12/15/2017 Orders Only Adult Medicine [address] [id number] Wiley Thompson MD Preoperative examination; Screening for [...] 100 mg/dL 12/26/2017 5:44 PM EDT [facility] Comment:Reference range appl icable to fasting specimens only Blood Urea Nitrogen 9 5 - 25 mg/dL 12/26/2017 5:44 PM EDT [facility] CREAT 1.02 0.5 - 1.1 mg/dL 12/26/2017 5:44 PM EDT [facility] GLOMERULAR FILTRATION RATE 53 12/26/2017 5:44 PM EDT [facility] Comment: If patient is -Cambodian, multiply result by 1.21 Chronic Kidney Disease: < 60 ml/min/1.73 square meters Kidney Failure: < 15 ml/min/1.73 square meters NA 144 133 - 145 mmol/L 12/26/2017 5:44 PM EDT [facility] K 4.4 3.5 - 5.5 mmol/L 12/26/2017 5:44 PM EDT [facility] CL 106 96 - 110 mmol/L 12/26/2017 5:44 PM EDT [facility] CARBON DIOXIDE (CO2) 29 21 - 32 mmol/L 12/26/2017 5:44 PM EDT [facility] ANION GAP 9 3 - 11 12/26/2017 5:44 PM EDT [facility] CALCIUM 9.2 8.5 - 10.5 mg/dL 12/26/2017 5:44 PM EDT [facility] 12/26/2017 1:43 PM EDT 12/26/2017 1:44 PM EDT Wiley Thompson MD LAB [facility] [employer] * (ABNORMAL) CBC (AUTO DIFF PLATELET) (12/26/2017 1:43 PM EDT) Pathologist [facility] WBC 6.9 4.8 - 10.8 x10-3 12/26/2017 1:59 PM EDT [facility] RBC 3.9 3.8 - 4.8 x10-6 12/26/2017 1:59 PM EDT [facility] HGB 11.8 11.5 - [...] Wiley Thompson MD LAB Performing Organization Address City/State/[facility] Co de Phone Number [facility] [address] [place] [address] documented in this encounter Visit Diagnoses Diagnosis Preoperative examination Preoperative examination, unspecified Screening for deficiency anemia Screening for other and unspecified deficiency anemia documented in this encounter Care Teams Branding Machine Tender Relationship Specialty Start Date End Date Wiley Thompson MD PCP - General Internal Medicine 06/04/14 01/20/22 Kathy Christopher MD [address] [place] [address], [place] [address] PCP - General Internal Medicine 01/21/22 Kameron Zuñiga MD Records Analyst Cardiovascular Disease 08/04/21 Katya Lopez NP Cardiology 08/04/21 01/30/24 Be Pacheco NP [address] [place] [address] Nurse Practitioner Cardiology 10/17/22 01/30/24 Maycol Infante MD [address] [place] [address] Specialist Pulmonology 10/19/22 Sebastian Martinez MD [address] [place] [address] Specialist Ophthalmology 03/21/23 Eve Juan MD [address] [place] [address] [place] [address] Specialist UROGYNECOLOGY 03/21/23 Elisa Romero NP [address] [place] [address] [place] [address] Cardiology 01/31/24 Marcus Murcia DO [address] [place] [address] [place] [address] Specialist Physiatry 03/26/24 documented as of this encounter
--- OUTSIDE RECORDS SUMMARY | 2024-09-17 17:54 | XMS_ITS | Encounter Summary ---
Author Organization [facility] Address [address] [place] [address] Care Team Providers Care Senior Office Assistant Name Role Phone Wiley Thompson MD Primary Care Provider Kameron Cornejo MD Unavailable Katya Lopez NP Unavailable Unavailab Kathy Haley MD Primary Care Prov ider Be Pacheco NP Unavailable [phone] Maycol Infanet MD Unavailable Unavailable Sebastian Martinez MD Unavailable UnavailEve Blackmon MD Unavailable Elisa Romero NP Unavailable [phone] Marcus Murcia DO Unavailable Unavailable Reason for Visit * Reason Comments E-prescribe Rx Request Encounter Details Date Type Department Care Team Description 10/21/2020 Refill Adult Medicine [address] [address] Wiley Thompson MD E-prescribe Rx Request Social [...] Payor: [facility] MCR / Plan: HMO $0 [facility] [id number] / Product Type: HMO [id number] documented in this encounter Plan of Treatment Not on file documented as of this encounter Visit Diagnoses Diagnosis CAD (coronary artery disease), [place] coronary artery Coronary atherosclerosis of [place] coronary artery documented in this encounter Care Teams Senior Office Assistant Relationship Specialty Start Date End Date Wiley Thompson MD PCP - General Internal Medicine 06/04/14 01/20/22 Kathy Christopher MD [address] [place] [address] PCP - General Internal Medicine 01/21/22 Kameron Zuñiga MD Buckle Sewer Cardiovascular Disease 08/04/21 Katya Lopez NP Cardiology 08/04/21 01/30/24 Be Pacheco NP [address] [place] [address] Nurse Practitioner Cardiology 10/17/22 01/30/24 Maycol Infante MD [address] [place] [address] Specialist Pulmonology 10/19/22 Sebastian Martinez MD [address] [place] [address] Specialist Ophthalmology 03/21/23 Eve Juan MD [address] [place] [address] [place] [address] Specialist UROGYNECOLOGY 03/21/23 Elisa Romero NP [address] [place] [address] [place] [address] Cardiology 01/31/24 Marcus Murcia DO [address] [place] [address] [place] [address] Specialist Physiatry 03/26/24 documented as of this encounter
--- OUTSIDE RECORDS SUMMARY | 2024-09-17 17:54 | XMS_ITS | Encounter Summary ---
Author Organization [facility] Address [address] [place] [address] Care Team Providers Care Engine Cleaner Name Role Phone Bri Santacruz MD Primary Care Provider Unavailable Wiley Thompson MD Primary Care Provider Kameron Cornejo MD Unavailable Katya Lopez NP Unavailable Unavailab Kathy Haley MD Primary Care Prov ider Be Pacheco NP Unavailable [phone] Maycol Infante MD Unavailable Unavailable Sebastian Martinez MD Unavailable UnavailEve Blackmon MD Unavailable Elisa Romero NP Unavailable [phone] Marcus Murcia DO Unavailable Unavailable Reason for Visit * Reason Onset Date Comments APPOINTMENT 09/25/2013 Encounter Details Date Type Department Care Team Description 09/25/2013 Telephone Physiatry - [address] [phone] Zahraa Zhang MD [address] [place] [address] [place] [address] APPOINTMENT Social History Tobacco Use Types Packs/Day [...] Miscellaneous Notes * Telephone Encounter - Elisa Ross - 09/25/2013 3:23 PM EDT Thought this was the injection appt; have sent msg to referring provider that pt does not want to reschedule. * Telephone Encounter - Zuly Pagan M.A. - 09/25/2013 3:04 PM EDT Physiatry has never seen this patient before. * Telephone Encounter - Elisa Ross - 09/25/2013 3:00 PM EDT Pt cancelled her appointment for botox injection for 10/14/13; pt did not want to reschedule. documented in this encounter Plan of Treatment Not on file documented as of this encounter Visit Diagnoses Not on filedocumented in this encounter Care Teams Engine Cleaner Relationship Specialty Start Date End Date Bri Santacruz MD PCP - General Internal Medicine 04/23/12 06/03/14 Wiley Thompson MD PCP - General Internal Medicine 06/04/14 01/20/22 Kathy Christopher MD [address] [place] [address] PCP - General Internal Medicine 01/21/22 Kameron Zuñiga MD Tapper Shank Cardiovascular Disease 08/04/21 Katya Lopez NP Cardiology 08/04/21 01/30/24 Be Pacheco NP [address] [place] [address] Nurse Practitioner Cardiology 10/17/22 01/30/24 Maycol Infante MD [address] [place], [place] [phone] Specialist Pulmonology 10/19/22 Sebastian Martinez MD [address] [place] [address] Specialist Ophthalmology 03/21/23 Eve Juan MD [address] [place] [address] [place] [address] Specialist UROGYNECOLOGY 03/21/23 Elisa Romero NP [address] [place] [address] [place] [address] Cardiology 01/31/24 Marcus Murcia DO [address] [place] [address] [place] [address] Specialist Physiatry 03/26/24 documented as of this encounter
--- OUTSIDE RECORDS SUMMARY | 2024-09-17 17:54 | XMS_ITS | Encounter Summary ---
Author Organization [facility] Address [address] [place] [address] Care Team Providers Care Industrial Services Worker Name Role Phone Wiley Thompson MD Primary Care Provider Kameron Cornejo MD Unavailable Katya Lopez NP Unavailable Unavailab Kathy Haley MD Primary Care Prov ider Be Pacheco NP Unavailable [phone] Maycol Infante MD Unavailable Unavailable Sebastian Martinez MD Unavailable UnavailEve Blackmon MD Unavailable Elisa Romero NP Unavailable [phone] Marcus Murcia DO Unavailable Unavailable Reason for Referral * Non CARIN (Routine) - Closed Specialty Diagnoses / Procedures Referred By Contac t Referred To Contact Physiatry Diagnoses Neck pain Procedures REFERRAL TO PHYSIATRY Adam Camp PA [address] [place] [address] Zahraa Zhang MD [address] [place] [address] [place] [address] Referral ID Status Reason Start Date Expiration Date Visits Re quested Visits Authorized [id number] Closed 10/02/2015 10/01/2016 1 1 Reason for Visit * Reason Onset Date Comments REFERRAL 10/02/2015 Encounter Details Date Type Department Care Team Description 10/02/2015 Telephone Adult Medicine [facility] [address] [place] [address] Adam Camp PA REFERRAL Social History Tobacco Use Types Packs/Day Years [...] encounter Miscellaneous Notes * Telephone Encounter - Adam Camp PA-C - 10/02/2015 6:37 PM EDT Referral placed. * Telephone Encounter - Carolyn Romano L.P.NJose Cruz - 10/02/2015 2:58 PM EDT Please sign a referral for patient to see physiatry for her neck as Mr Marc does not see necksor backs in orthopedics documented in this encounter Plan of Treatment Not on file documented as of this encounter Visit Diagnoses Diagnosis Neck pain- Primary Cervicalgia documented in this encounter Care Teams Industrial Services Worker Relationship Specialty Start Date End Date Wiley Thompson MD PCP - General Internal Medicine 06/04/14 01/20/22 Kathy Christopher MD [address] [place] [address] PCP - General Internal Medicine 01/21/22 Kameron Zuñiga MD Medical Field Representative Cardiovascular Disease 08/04/21 Katya Lopez NP Cardiology 08/04/21 01/30/24 Be Pacheco NP [address] [place] [address] Nurse Practitioner Cardiology 10/17/22 01/30/24 Maycol Infante MD [address] [place] [address] Specialist Pulmonology 10/19/22 Sebastian Martinez MD [address] [place] [address] Specialist Ophthalmology 03/21/23 Eve Juan MD [address] [place] [address] [place] [address] Specialist UROGYNECOLOGY 03/21/23 Elisa Romero NP [address] [place] [address] [place] [address] Cardiology 01/31/24 Marcus Murcia DO [address] [place] [address] [place] [address] Specialist Physiatry 03/26/24 documented as of this encounter
--- OUTSIDE RECORDS SUMMARY | 2024-09-17 17:54 | XMS_ITS | Encounter Summary ---
Author Organization [facility] Address [address] [place] [address] Care Team Providers Care Composition Floor Setter Name Role Phone Wiley Thompson MD Primary Care Provider Kameron Cornejo MD Unavailable Katya Lopez NP Unavailable Unavailab Kathy Christopher MD Primary Care Prov ider Be Pacheco NP Unavailable [phone] Maycol Infante MD Unavailable Unavailable Sebastian Martinez MD Unavailable UnavailEve Blackmon MD Unavailable Elisa Romero NP Unavailable [phone] Marcus Murcia DO Unavailable Unavailable Encounter Details Date Type Department Care Team Description 12/19/2014 Junior Electrical Engineer Report Medical Records [address] [place] [address] Cheo Olivia Social History Tobacco Use Types Packs/Day Years [...] on filedocumented in this encounter Care Teams Composition Floor Setter Relationship Specialty Start Date End Date Wiley Thompson MD PCP - General Internal Medicine 06/04/14 01/20/22 Kathy Christopher MD [address] [place] [address] PCP - General Internal Medicine 01/21/22 Kameron Zuñiga MD High Risk Case Manager Cardiovascular Disease 08/04/21 Katya Lopez NP Cardiology 08/04/21 01/30/24 Be Pacheco NP [address] [place] [address] Nurse Practitioner Cardiology 10/17/22 01/30/24 Maycol Infante MD [address] [place] [address] Specialist Pulmonology 10/19/22 Sebastian Martinez MD [address] [place], [place] [phone] Specialist Ophthalmology 03/21/23 Eve Juan MD [address] [place] [address] [place] [address] Specialist UROGYNECOLOGY 03/21/23 Elisa Romero NP [address] [place] [address] [place] [address] Cardiology 01/31/24 Marcus Murcia DO [address] [place] [address] [place] [address] Specialist Physiatry 03/26/24 documented as of this encounter
--- OUTSIDE RECORDS SUMMARY | 2024-09-17 17:54 | XMS_ITS | Clinical Summary ---
Author Organization [facility] Address [address] [place] [phone] Phone Care Team Providers Care Commercial Accountant Name Role Phone Kathy Christopher MD Primary [...] [facility]. [address] [phone] Everton Riddle MD [address] [phone] Health Maintenance Due Date Last [...] patient's age to complete this topic Insurance [facility] ([id number]) JESSICA REN [id number] [address] [place] [address] Care Teams Commercial Accountant Relationship Specialty Start Date End Date Kathy Christopher MD [address] [place] [address] [phone] PCP - General 09/10/24
--- OUTSIDE RECORDS SUMMARY | 2024-09-17 17:55 | XMS_ITS | Encounter Summary ---
Author Organization [facility] Address [address] [place] [address] Care Team Providers Care Pmo Lead Name Role Phone Wiley Thompson MD Primary Care Provider Kameron Cornejo MD Unavailable Katya Lopez NP Unavailable Unavailab Kathy Haley MD Primary Care Prov ider Be Pacheco NP Unavailable [phone] Maycol Infante MD Unavailable Unavailable Sebastian Martinez MD Unavailable UnavailEve Blackmon MD Unavailable Elisa Romero NP Unavailable [phone] Marcus Murcia DO Unavailable Unavailable Reason for Visit * Reason Comments E-prescribe Rx Request Encounter Details Date Type Department Care Team Description 01/20/2021 Refill Adult Medicine [address] [address] Wiley Thompson MD E-prescribe Rx Request Social [...] encounter Miscellaneous Notes * Telephone Encounter - Kitty Cline - 01/20/2021 9:41 AM EDT Patient would like script to be: E-PRESCRIBED/FAXED TO PHARMACY WHEN WAS THE PATIENT'S LAST APPOINTMENT IN ADULT MEDICINE? 12/24/20 WHEN WAS THE LAST TIME THE PATIENT SAW THEIR PCP? 11/05/20 Does patient have an upcoming appointment? Yes 02/08/21 (THE MEDICATION REQUESTED IS ON THE MED [...] N/A Patients current insurance carrier is: Payor: [facility] MCR / Plan: real5DO $0 [facility] [id number] / Product Type: HMO [id number] documented in this encounter Plan of Treatment Not on file documented as of this encounter Visit Diagnoses Not on filedocumented in this encounter Care Teams Pmo Lead Relationship Specialty Start Date End Date Wiley Thompson MD PCP - General Internal Medicine 06/04/14 01/20/22 Kathy Christopher MD [address] [place] [address] PCP - General Internal Medicine 01/21/22 Kameron Zuñiga MD Chainstitch Pants Outseamer Cardiovascular Disease 08/04/21 Katya Lopez, IRMA Cardiology 08/04/21 01/30/24 Be Pacheco NP [address] [place] [address] Nurse Practitioner Cardiology 10/17/22 01/30/24 Maycol Infante MD [address] [place] [address] Specialist Pulmonology 10/19/22 Sebastian Martinez MD [address] [place], [place] [address] Specialist Ophthalmology 03/21/23 Eve Juan MD [address] [place] [address] [place] [address] Specialist UROGYNECOLOGY 03/21/23 Elisa Romero NP [address] [place] [address] [place] [address] Cardiology 01/31/24 Marcus Murcia DO [address] [place] [address] [place] [address] Specialist Physiatry 03/26/24 documented as of this encounter
--- OUTSIDE RECORDS SUMMARY | 2024-09-17 17:55 | XMS_ITS | Encounter Summary ---
Author Organization [facility] Address [address] [place] [address] Care Team Providers Care Radial Drill Operator For Plastic Name Role Phone Bri Santacruz MD Primary Care Provider Unavailable Wiley Thompson MD Primary Care Provider Kameron Cornejo MD Unavailable Katya Lopez NP Unavailable Unavailab Kathy Haley MD Primary Care Prov ider Be Pacheco RELIEF DRILLER Unavailable [phone] Maycol Infante MD Unavailable Unavailable Sebastian Martinez MD Unavailable UnavailEve Blackmon MD Unavailable Elisa Romero NP Unavailable [phone] Marcus Murcia DO Unavailable Unavailable Encounter Details Date Type Department Care Team Description 01/24/2013 Release of Information Medical Records [address] [place] [id number] Abstract, Provider Social History Tobacco Use Types [...] on filedocumented in this encounter Care Teams Radial Drill Operator For Plastic Relationship Specialty Start Date End Date Bri Santacruz MD PCP - General Internal Medicine 04/23/12 06/03/14 Wiley Thompson MD PCP - General Internal Medicine 06/04/14 01/20/22 Kathy Christopher MD [address] [place] [address] PCP - General Internal Medicine 01/21/22 Kameron Zuñiga MD Electronic Semiconductor Processor Cardiovascular Disease 08/04/21 Katya Lopez, IRMA Cardiology 08/04/21 01/30/24 Be Pacheco NP [address] [place] [address] Nurse Practitioner Cardiology 10/17/22 01/30/24 Maycol Infante MD [address] [place] [address] Specialist Pulmonology 10/19/22 Sebastian Martinez MD [address] [place] [address] Specialist Ophthalmology 03/21/23 Eve Juan MD [address] [place] [address] [place] [address] Specialist UROGYNECOLOGY 03/21/23 Elisa Romero, IRMA [address] [place] [address] [place] [address] Cardiology 01/31/24 Marcus Murcia DO [address] [place] [address] [place] [address] Specialist Physiatry 03/26/24 documented as of this encounter
--- OUTSIDE RECORDS SUMMARY | 2024-09-17 17:55 | XMS_ITS | Encounter Summary ---
Author Organization [facility] Address [address] [place] [address] Care Team Providers Care Guzzler Builder Name Role Phone Wiley Thompson MD Primary Care Provider Kameron Cornejo MD Unavailable Katya Lopez NP Unavailable Unavailab Kathy Haley MD Primary Care Prov ider Be Pacheco NP Unavailable Maycol Infante MD Unavailable Unavailable Sebastian Martinez MD Unavailable UnavailEve Blackmon MD Unavailable Elisa Romero NP Unavailable [phone] Marcus Murcia DO Unavailable Unavailable Encounter Details Date Type Department Care Team Description 03/05/2021 Option Trader Report Medical Records [address] [place] [address] Maycol Infante MD Social History Tobacco Use [...] have Coronavirus / COVID-19? No / Unsure 02/26/2021 2:14 PM EDT documented as of this encounter Plan of Treatment Not on file documented as of this encounter Visit Diagnoses Not on filedocumented in this encounter Care Teams Guzzler Builder Relationship Specialty Start Date End Date Wiley Thompson MD PCP - General Internal Medicine 06/04/14 01/20/22 Kathy Christopher MD [address] [place] [address] PCP - General Internal Medicine 01/21/22 Kameron Zuñiga MD Linux System Engineer Cardiovascular Disease 08/04/21 Katya Lopez NP Cardiology 08/04/21 01/30/24 Be Pacheco NP [address] [place] [address] Nurse Practitioner Cardiology 10/17/22 01/30/24 Maycol Infante MD [address] [place] [address] Specialist Pulmonology 10/19/22 Sebastian Martinez MD [address] [place] [address] Specialist Ophthalmology 03/21/23 Eve Juan MD [address] [place] [address] [place] [address] Specialist UROGYNECOLOGY 03/21/23 Elisa Romero NP [address] [place] [address] [place] [address] Cardiology 01/31/24 Marcus Murcia DO [address] [place] [address] [place] [address] Specialist Physiatry 03/26/24 documented as of this encounter
--- OUTSIDE RECORDS SUMMARY | 2024-09-17 17:55 | XMS_ITS | Encounter Summary ---
Author Organization [facility] Address [address] [place] [address] Care Team Providers Care Endoscopic Technician Name Role Phone Kameron Zuñiga MD Unavailable Katya Lopez NP Unavailable Unavailab Kathy Haley MD Primary Care Prov ider Be Pacheco NP Unavailable [phone] Maycol Infante MD Unavailable Unavailable Sebastian Martinez MD Unavailable UnavailEve Blackmon MD Unavailable Elisa Romero NP Unavailable [phone] Marcus Murcia DO Unavailable Unavailable Encounter Details Date Type Department Care Team Description 10/19/2022 Industrial Waste Treatment Technician Report Medical Records [address] [place] [address] Tiffanie Reyes Social History Tobacco Use Types [...] on filedocumented in this encounter Care Teams Endoscopic Technician Relationship Specialty Start Date End Date Kathy Christopher MD [address] [place] [address] PCP - General Internal Medicine 01/21/22 Kameron Zuñiga MD Injection Molder Cardiovascular Disease 08/04/21 Katya Lopez NP Cardiology 08/04/21 01/30/24 Be Pacheco NP [address] [place] [address] Nurse Practitioner Cardiology 10/17/22 01/30/24 Maycol Infante MD [address] [place] [address] Specialist Pulmonology 10/19/22 Sebastian Martinez MD [address] [place] [address] Specialist Ophthalmology 03/21/23 Eve Juan MD [address] [place] [address] [place] [address] Specialist UROGYNECOLOGY 03/21/23 Elisa Romero NP [address] [place] [address] [place] [address] Cardiology 01/31/24 Marcus Murcia DO [address] [place] [address] [place] [address] Specialist Physiatry 03/26/24 documented as of this encounter
--- OUTSIDE RECORDS SUMMARY | 2024-09-17 17:55 | XMS_ITS | Clinical Summary ---
Author Organization [facility] Address [address] [place] [address] Care Team Providers Care Vp Rheumatology Name Role Phone Kathy Christopher MD Primary [...] age to complete this topic Care Teams Vp Rheumatology Relationship Specialty Start Date End Date Kathy Christopher MD [address] [place] [address] PCP - General Internal Medicine 09/14/23
--- OUTSIDE RECORDS SUMMARY | 2024-09-17 17:55 | XMS_ITS | Encounter Summary ---
Author Organization [facility] Address [address] [place] [address] Care Team Providers Care Radio Rigger Name Role Phone Wiley Thompson MD Primary Care Provider Kameron Cornejo MD Unavailable Katya Lopez NP Unavailable Unavailab Kathy Christopher MD Primary Care Prov ider Be Pacheco NP Unavailable [phone] Maycol Infante MD Unavailable Unavailable Sebastian Martinez MD Unavailable UnavailEve Blackmon MD Unavailable Elisa Romero NP Unavailable [phone] Marcus Murcia DO Unavailable Unavailable Encounter Details Date Type Department Care Team Description 01/05/2016 Superintendent Production Report Medical Records [address] [place] [address]68 Seema Canas MD Social History Tobacco Use [...] on filedocumented in this encounter Care Teams Radio Rigger Relationship Specialty Start Date End Date Wiley Thompson MD PCP - General Internal Medicine 06/04/14 01/20/22 Kathy Christopher MD [address] [place] [address] 88344 PCP - General Internal Medicine 01/21/22 Kameron Zuñiga MD Learning Support Specialist Cardiovascular Disease 08/04/21 Katya Lopez, IRMA Cardiology 08/04/21 01/30/24 Be Pacheco NP [address] [place] [address] 98307 Nurse Practitioner Cardiology 10/17/22 01/30/24 Maycol Infante MD [address] [place] [address] 66545 Specialist Pulmonology 10/19/22 Sebastian Martinez MD [address] [place] [address] 01254 Specialist Ophthalmology 03/21/23 Eve Juan MD [address] [place] [address] [place] [address] Specialist UROGYNECOLOGY 03/21/23 Elisa Romero NP [address] [place] [address] [place] [address] Cardiology 01/31/24 Marcus Murcia DO [address] [place] [address] [place] [address] Specialist Physiatry 03/26/24 documented as of this encounter
--- OUTSIDE RECORDS SUMMARY | 2024-09-17 17:55 | XMS_ITS | Encounter Summary ---
Author Organization [facility] Address [address] [place] [address] Care Team Providers Care Html Web Developer Name Role Phone Wiley Thompson MD Primary Care Provider Kameron Cornejo MD Unavailable Katya Lopez NP Unavailable Unavailab Katyh Haley MD Primary Care Prov ider Be Pacheco NP Unavailable [phone] Maycol Infante MD Unavailable Unavailable Sebastian Martinez MD Unavailable UnavailEve Blackmon MD Unavailable Elisa Romero NP Unavailable [phone] Marcus Murcia DO Unavailable Unavailable Reason for Visit * Reason Onset Date Comments refill request 08/01/2018 Encounter Details Date Type Department Care Team Description 08/01/2018 Refill Adult Medicine [address] [address] Wiley Thompson MD refill request Social History [...] Payor: [facility] M[facility] / Plan: O $0 [facility] [id number] / Product Type: HMO [id number] documented in this encounter Plan of Treatment Not on file documented as of this encounter Visit Diagnoses Not on filedocumented in this encounter Care Teams Html Web Developer Relationship Specialty Start Date End Date Wiley Thompson MD PCP - General Internal Medicine 06/04/14 01/20/22 Kathy Christopher MD [address] [place] [address] PCP - General Internal Medicine 01/21/22 Kameron Zuñiga MD Offset Plate Preparation Supervisor Cardiovascular Disease 08/04/21 Katya Lopez NP Cardiology 08/04/21 01/30/24 Be Pacheco NP [address] [place] [address] 93030 Nurse Practitioner Cardiology 10/17/22 01/30/24 Maycol Infante MD [address] [place] [address] 30724 Specialist Pulmonology 10/19/22 Sebastian Martinez MD [address] [place], [place] [phone] Specialist Ophthalmology 03/21/23 Eve Juan MD [address] [place] [address] [place] [address] Specialist UROGYNECOLOGY 03/21/23 Elisa Romero NP [address] [place] [address] [place] [address] Cardiology 01/31/24 Marcus Murcia DO [address] [place] [address] [place] [address] Specialist Physiatry 03/26/24 documented as of this encounter
--- OUTSIDE RECORDS SUMMARY | 2024-09-17 17:55 | XMS_ITS | Encounter Summary ---
Author Organization [facility] Address [address] [place] [address] Care Team Providers Care Replacer Name Role Phone Wiley Thompson MD Primary Care Provider Kameron Cornejo MD Unavailable Katya Lopez NP Unavailable Unavailab Kathy Haley MD Primary Care Prov ider Be Pacheco NP Unavailable Maycol Infante MD Unavailable Unavailable Sebastian Martinez MD Unavailable UnavailEve Blackmon MD Unavailable Elisa Romero NP Unavailable [phone] Marcus Murcia DO Unavailable Unavailable Reason for Referral * Non CARIN (Routine) - Authorized/Booked Specialty Diagnoses / Procedures Referred By Contac t Referred To Contact Oncology/Hematology Procedures REFERRAL TO ONCOLOGY/HEMATOLOGY Lamine Rose MD [address] [place] [address] Onc/[place] [address] [place] [address] Referral ID Status Reason Start Date Expiration Date V isits Requested Visits Authorized [id number] Authorized/B ooked 12/11/2015 12/10/2016 1 1 Encounter Details Date Type Department Care Team Description 12/11/2015 Orders Only Gastroenterology - [place] [address] [place] [address]179 Lamine Rose MD Iron deficiency anemia due [...] (chronic) documented in this encounter Care Teams Replacer Relationship Specialty Start Date End Date Wiley Thompson MD PCP - General Internal Medicine 06/04/14 01/20/22 Kathy Christopher MD [address] [place] [address] PCP - General Internal Medicine 01/21/22 Kameron Zuñiga MD Camera Tuning Engineer Cardiovascular Disease 08/04/21 Katya Lopez NP Cardiology 08/04/21 01/30/24 Be Pacheco NP [address] [place] [address] Nurse Practitioner Cardiology 10/17/22 01/30/24 Maycol Infante MD [address] [place] [address] Specialist Pulmonology 10/19/22 Sebastian Martinez MD [address] [place] [address] Specialist Ophthalmology 03/21/23 Eve Juan MD [address] [place] [address] [place] [address] Specialist UROGYNECOLOGY 03/21/23 Elisa Romero NP [address] [place] [address] [place] [address] Cardiology 01/31/24 Marcus Murcia DO [address] [facility] [place] [address] Specialist Physiatry 03/26/24 documented as of this encounter
--- OUTSIDE RECORDS SUMMARY | 2024-09-17 17:55 | XMS_ITS | Encounter Summary ---
Author Organization [facility] Address [address] [place] [address] Care Team Providers Care Infection Preventionist Name Role Phone Kameron Zuñiga MD Unavailable Katya Lopez NP Unavailable Unavailab Kathy Haley MD Primary Care Prov ider Be Pacheco NP Unavailable [phone] Maycol Infante MD Unavailable Unavailable Sebastian Martinez MD Unavailable UnavailEve Blackmon MD Unavailable Elisa Romero NP Unavailable [phone] Marcus Murcia DO Unavailable Unavailable Encounter Details Date Type Department Care Team Description 02/23/2023 Orders Only Medical Records [address] [place] [address] Abstract, Provider Social History Tobacco Use Types [...] Date/Time Associated Diagnosis Comments OUTSIDE MAMMO Routine 09/09/2021 documented in this encounter Results * OUTSIDE MAMMO (09/09/2021) Provider Abstract RADIOLOGY documented in this encounter Visit Diagnoses Not on filedocumented in this encounter Care Teams Infection Preventionist Relationship Specialty Start Date End Date Kathy Christopher MD [address] [place] [address] PCP - General Internal Medicine 01/21/22 Kameron Zuñiga MD Petal Shaper Hand Cardiovascular Disease 08/04/21 Katya Lopez NP Cardiology 08/04/21 01/30/24 Be Pacheco NP [address] [place] [address] 55055 Nurse Practitioner Cardiology 10/17/22 01/30/24 Maycol Infante MD [address] [place] [address] 08683 Specialist Pulmonology 10/19/22 Sebastian Martinez MD [address] [place] [address] 43784 Specialist Ophthalmology 03/21/23 Eve Juan MD [address] [place] [address] [place] [address] Specialist UROGYNECOLOGY 03/21/23 Elisa Romero NP [address] [place] [address] [place] [address] Cardiology 01/31/24 Marcus Murcia DO [address] [place] [address] [place] [address] Specialist Physiatry 03/26/24 documented as of this encounter
--- OUTSIDE RECORDS SUMMARY | 2024-09-17 17:55 | XMS_ITS | Encounter Summary ---
Author Organization [facility] Address [address] [place] [address] Care Team Providers Care Traveling Freight Agent Name Role Phone Wiley Thompson MD Primary Care Provider Kameron Cornejo MD Unavailable Katya Lopez NP Unavailable Unavailab Kathy Haley MD Primary Care Prov ider Be Pacheco NP Unavailable [phone] Maycol Infante MD Unavailable Unavailable Sebastian Martinez MD Unavailable UnavailEve Blackmon MD Unavailable Elisa Romero NP Unavailable [phone] Marcus Murcia DO Unavailable Unavailable Encounter Details Date Type Department Care Team Description 07/28/2021 Hospital Medical Records [address] [place] [address] Abstract, Provider Social History Tobacco Use Types [...] on filedocumented in this encounter Care Teams Traveling Freight Agent Relationship Specialty Start Date End Date Wiley Thompson MD PCP - General Internal Medicine 06/04/14 01/20/22 Kathy Christopher MD [address] [place] [address] PCP - General Internal Medicine 01/21/22 Kameron Zuñiga MD Static Balancer Cardiovascular Disease 08/04/21 Katya Lopez NP Cardiology 08/04/21 01/30/24 Be Pacheco NP [address] [place] [address] 61432 Nurse Practitioner Cardiology 10/17/22 01/30/24 Maycol Infante MD [address] [place] [address] Specialist Pulmonology 10/19/22 Sebastian Martinez MD [address] [place] [address] 08797 Specialist Ophthalmology 03/21/23 Eve Juan MD [address] [place] [address] [place] [address] Specialist UROGYNECOLOGY 03/21/23 Elisa Romero NP [address] [place] [address] [place] [address] Cardiology 01/31/24 Marcus Murcia DO [address] [place] [address] [place] [address] Specialist Physiatry 03/26/24 documented as of this encounter
--- OUTSIDE RECORDS SUMMARY | 2024-09-17 17:55 | XMS_ITS | Encounter Summary ---
Author Organization [facility] Address [address] [place] [address] Care Team Providers Care Pier Master Assistant Name Role Phone Wiley Thompson MD Primary Care Provider Kameron Cornejo MD Unavailable Katya Lopez NP Unavailable Unavailab Kathy Haley MD Primary Care Prov ider Be Pacheco NP Unavailable [phone] Maycol Infante MD Unavailable Unavailable Sebastian Martinez MD Unavailable UnavailEve Blackmon MD Unavailable Elisa Romero NP Unavailable [phone] Marcus Murcia DO Unavailable Unavailable Reason for Visit * Reason Comments E-prescribe Rx Request Encounter Details Date Type Department Care Team Description 05/06/2021 Refill Adult Medicine [address] [id number] Pau Shultz PA [address] [place] [address] [phone] E-prescribe Rx Request Social History Tobacco Use [...] N/A Patients current insurance carrier is: [facility] / Plan: HMO $0 [facility] [id number] / Product Type: HMO [id number] documented in this encounter Plan of Treatment Not on file documented as of this encounter Visit Diagnoses Not on filedocumented in this encounter Care Teams Pier Master Assistant Relationship Specialty Start Date End Date Wiley Thompson MD PCP - General Internal Medicine 06/04/14 01/20/22 Kathy Christopher MD [address] [place] [address] PCP - General Internal Medicine 01/21/22 Kameron Zuñiga MD Micro Paleontologist Cardiovascular Disease 08/04/21 Katya Lopez NP Cardiology 08/04/21 01/30/24 Be Pacheco NP [address] [place] [address] 16088 Nurse Practitioner Cardiology 10/17/22 01/30/24 Maycol Infante MD [address] [place] [address] 92754 Specialist Pulmonology 10/19/22 Sebastian Martinez MD [address] [place] [address] 89756 Specialist Ophthalmology 03/21/23 Eve Juan MD [address] [place] [address] [place] [address] Specialist UROGYNECOLOGY 03/21/23 Elisa Romero NP [address] [place] [address] [place] [address] Cardiology 01/31/24 Marcus Murcia DO [address] [place] [address] [place] [address] Specialist Physiatry 03/26/24 documented as of this encounter
--- OUTSIDE RECORDS SUMMARY | 2024-09-17 17:55 | XMS_ITS | Encounter Summary ---
Author Organization [facility] Address [address] [place] [address] Care Team Providers Care Self Propelled Hot Mix Roller Operator Name Role Phone Wiley Thompson MD Primary Care Provider Kameron Cornejo MD Unavailable Katya Lopez NP Unavailable Unavailab Kathy Haley MD Primary Care Prov ider Be Pacheco NP Unavailable [phone] Maycol Infante MD Unavailable Unavailable Sebastian Martinez MD Unavailable UnavailEve Blackmon MD Unavailable Elisa Romero NP Unavailable Marcus Murcia DO Unavailable Unavailable Reason for Visit * Reason Comments E-prescribe Rx Request Encounter Details Date Type Department Care Team Description 06/07/2021 Refill Adult Medicine [address] [phone] Lance Valdes PA-C [address] [place] [address] [phone] E-prescribe Rx Request Social History Tobacco Use [...] have Coronavirus / COVID-19? No / Unsure 06/02/2021 2:15 PM EST documented as of this encounter Miscellaneous Notes * Telephone Encounter - Yuli Laguerre M.A. - 06/08/2021 2:27 PM EST Lab Results Component Value Date NA 142 12/25/2020 K 4.0 12/25/2020 CO2 26 12/25/2020 CL 108 12/25/2020 BUN 25 12/25/2020 CREAT 0.94 12/25/2020 GLU 83 12/25/2020 CA 9.0 12/25/2020 GFR 58 12/25/2020 JUAN 06/02/21 NOV 06/24/21 * Telephone Encounter - Nafisa Cheng - 06/08/2021 1:14 PM EST Patient would like script to be: E-PRESCRIBED/FAXED TO PHARMACY WHEN WAS THE PATIENT'S LAST APPOINTMENT IN ADULT MEDICINE? 06/02/21 WHEN WAS THE LAST TIME THE PATIENT SAW THEIR PCP? 11/05/20 Does patient have an upcoming appointment? Yes 06/24/21 (THE MEDICATION REQUESTED IS ON THE MED [...] N/A Patients current insurance carrier is: Payor: [facility] / Plan: HMO $0 [place] [id number] / Product Type: HMO [id number] documented in this encounter Plan of Treatment Not on file documented as of this encounter Visit Diagnoses Not on filedocumented in this encounter Care Teams Self Propelled Hot Mix Roller Operator Relationship Specialty Start Date End Date Wiley Thompson MD PCP - General Internal Medicine 06/04/14 01/20/22 Kathy Christopher MD [address] [place] [address] 21153 PCP - General Internal Medicine 01/21/22 Kameron Zuñiga MD Planetarium Sky Show Technician Cardiovascular Disease 08/04/21 Katya Lopez NP Cardiology 08/04/21 01/30/24 Be Pacheco NP [address] [place] [address] 62887 Nurse Practitioner Cardiology 10/17/22 01/30/24 Maycol Infante MD [address] [place] [address] 98990 Specialist Pulmonology 10/19/22 Sebastian Martinez MD [address] [place] [address] 13918 Specialist Ophthalmology 03/21/23 Eve Juan MD [address] [place] [address] [place] [address] Specialist UROGYNECOLOGY 03/21/23 Elisa Romero NP [address] [place] [address] [place] [address] Cardiology 01/31/24 Marcus Murcia DO [address] [place] [address] [place] [address] Specialist Physiatry 03/26/24 documented as of this encounter
--- OUTSIDE RECORDS SUMMARY | 2024-09-17 17:55 | XMS_ITS | Encounter Summary ---
Author Organization [facility] Address [address] [place] [address] Care Team Providers Care Name Role Phone Wiley Thompson MD Primary Care Provider Kameron Cornejo MD Unavailable Katya Lopez NP Unavailable Unavailab Kathy Christopher MD Primary Care Prov ider Be Pacheco NP Unavailable [phone] Maycol Infante MD Unavailable Unavailable Sebastian Martinez MD Unavailable UnavailEve Blackmon MD Unavailable Elisa Romero NP Unavailable [phone] Marcus Murcia DO Unavailable Unavailable Encounter Details Date Type Department Care Team Description 04/04/2016 [facility] Medical Records [address] [place] [address] Abstract, Provider Social History Tobacco Use Types [...] on filedocumented in this encounter Care Teams Relationship Specialty Start Date End Date Wiley Thompson MD PCP - General Internal Medicine 06/04/14 01/20/22 Kathy Christopher MD [address] [place] [address] 04441 PCP - General Internal Medicine 01/21/22 Kameron Zuñiga MD Bullet Lubricating Machine Operator Cardiovascular Disease 08/04/21 Katya Lopez NP Cardiology 08/04/21 01/30/24 Be Pacheco NP [address] [place] [address] 10925 Nurse Practitioner Cardiology 10/17/22 01/30/24 Maycol Infante MD [address] [place] [address] 61589 Specialist Pulmonology 10/19/22 Sebastian Martinez MD [address] [place], [place] 5[address]69[address] Specialist Ophthalmology 03/21/23 Eve Juan MD [address] [place] [address] [place] [address] Specialist UROGYNECOLOGY 03/21/23 Elisa Romero NP [address] [place] [address] [place] [address] Cardiology 01/31/24 Marcus Murcia DO [address] [place] [address] [place] [address] Specialist Physiatry 03/26/24 documented as of this encounter
--- OUTSIDE RECORDS SUMMARY | 2024-09-17 17:55 | XMS_ITS | Encounter Summary ---
Author Organization [facility] Address [address] [place] [address] Care Team Providers Care Music Minister Name Role Phone Wiley Thompson MD Primary Care Provider Kameron Cornejo MD Unavailable Katya Lopez NP Unavailable Unavailab Kathy Haley MD Primary Care Prov ider Be Pacheco NP Unavailable Maycol Infante MD Unavailable Unavailable Sebastian Martinez MD Unavailable UnavailEve Blackmon MD Unavailable Elisa Romero NP Unavailable [phone] Marcus Murcia DO Unavailable Unavailable Reason for Visit * Reason Onset Date Comments Medication 06/08/2020 colon Encounter Details Date Type Department Care Team Description 06/08/2020 Refill Gastroenterology - [place] [address] [facility] [address] [place] [address] Christophe Sharp MD [address] [place] [address] [phone] Medication (colon) Social History Tobacco Use Types Packs/Day Years [...] on filedocumented in this encounter Care Teams Music Minister Relationship Specialty Start Date End Date Wiley Thompson MD PCP - General Internal Medicine 06/04/14 01/20/22 Kathy Christopher MD [address] [place] [address]7844 PCP - General Internal Medicine 01/21/22 Kameron Zuñiga MD Dog Races Manager Cardiovascular Disease 08/04/21 Katya Lopez NP Cardiology 08/04/21 01/30/24 Be Pacheco NP [address] [place] [address] 14277 Nurse Practitioner Cardiology 10/17/22 01/30/24 Maycol Infante MD [address] [place] [address] 86413 Specialist Pulmonology 10/19/22 Sebastian Martinez MD [address] [place] [address] 47111 Specialist Ophthalmology 03/21/23 Eve Juan MD [address] [place] [address] [place] [address] Specialist UROGYNECOLOGY 03/21/23 Elisa Romero NP [address] [place] [address] [place] [address] Cardiology 01/31/24 Marcus Murcia DO [address] [place] [address] [place] [address] Specialist Physiatry 03/26/24 documented as of this encounter
--- OUTSIDE RECORDS SUMMARY | 2024-09-17 17:55 | XMS_ITS | Encounter Summary ---
Author Organization [facility] Address [address] [place] [address] Care Team Providers Care Success Coach Name Role Phone Wiley Thompson MD Primary Care Provider Kameron Cornejo MD Unavailable Katya Lopez NP Unavailable Unavailab Kathy Haley MD Primary Care Prov ider Be Pacheco NP Unavailable [phone] Maycol Infante MD Unavailable Unavailable Sebastian Martienz MD Unavailable UnavailEve Blackmon MD Unavailable Elisa Romero NP Unavailable Marcus Murcia DO Unavailable Unavailable Encounter Details Date Type Department Care Team Description 07/24/2021 Hospital Medical Records [address] [place] [address] Abstract, Provider Social History Tobacco Use Types [...] on filedocumented in this encounter Care Teams Success Coach Relationship Specialty Start Date End Date Wiely Thompson MD PCP - General Internal Medicine 06/04/14 01/20/22 Kathy Christopher MD [address] [place] [address] PCP - General Internal Medicine 01/21/22 Kameron Zuñiga MD Type Inspector Cardiovascular Disease 08/04/21 Katya Lopez NP Cardiology 08/04/21 01/30/24 Be Pacheco NP [address] [place] [address] 01846 Nurse Practitioner Cardiology 10/17/22 01/30/24 Maycol Infante MD [address] [place] [address] 96188 Specialist Pulmonology 10/19/22 Sebastian Martinez MD [address] [place] [address] 21855 Specialist Ophthalmology 03/21/23 Eve Juan MD [address] [place] [address] [place] [address] Specialist UROGYNECOLOGY 03/21/23 Elisa Romero NP [address] [place] [address] [place] [address] Cardiology 01/31/24 Marcus Murcia DO [address] [place] [address] [place] [address] Specialist Physiatry 03/26/24 documented as of this encounter
--- OUTSIDE RECORDS SUMMARY | 2024-09-17 17:55 | XMS_ITS | Encounter Summary ---
Author Organization [facility] Address [address] [place] [address] Care Team Providers Care Sorter/Assay Tech Name Role Phone Wiley Thompson MD Primary Care Provider Kameron Cornejo MD Unavailable Katya Lopez NP Unavailable Unavailab Kathy Haley MD Primary Care Prov ider Be Pacheco NP Unavailable [phone] Maycol Infante MD Unavailable Unavailable Sebastian Martinez MD Unavailable UnavailEve Blackmon MD Unavailable Elisa Romero NP Unavailable [phone] Marcus Murcia DO Unavailable Unavailable Encounter Details Date Type Department Care Team Description 09/26/2014 Hospital Medical Records [address] [place] [address] Kameron Zuñiga MD [address] [place], [place] [phone] Social History Tobacco Use Types Packs/Day Years [...] on filedocumented in this encounter Care Teams Sorter/Assay Tech Relationship Specialty Start Date End Date Wiley Thompson MD PCP - General Internal Medicine 06/04/14 01/20/22 Kathy Christopher MD [address] [place] [address]10 PCP - General Internal Medicine 01/21/22 Kameron Zuñiga MD Computer Numerical Control Machinist Cardiovascular Disease 08/04/21 Katya Lopez NP Cardiology 08/04/21 01/30/24 Be Pacheco NP [address] [place] [address] 91133 Nurse Practitioner Cardiology 10/17/22 01/30/24 Maycol Infante MD [address] [place] [address] 73043 Specialist Pulmonology 10/19/22 Sebastian Martinez MD [address] [place] [address] 02221 Specialist Ophthalmology 03/21/23 Eve Juan MD [address] [place] [address] [place] [address] Specialist UROGYNECOLOGY 03/21/23 Elisa Romero NP [address] [place] [address] [place] [address] Cardiology 01/31/24 Marcus Murcia DO [address] [place] [address] [place] [address] Specialist Physiatry 03/26/24 documented as of this encounter
--- OUTSIDE RECORDS SUMMARY | 2024-09-17 17:55 | XMS_ITS | Encounter Summary ---
Author Organization [facility] Address [address] [place] [address] Care Team Providers Care Assistant Coach Name Role Phone Wiley Thompson MD Primary Care Provider Kameron Cornejo MD Unavailable Katya Lopez NP Unavailable Unavailab Kathy Haley MD Primary Care Prov ider Be Pacheco NP Unavailable [phone] Maycol Infante MD Unavailable Unavailable Sebastian Martinez MD Unavailable UnavailEve Blacmkon MD Unavailable Elisa Romero NP Unavailable [phone] Marcus Murcia DO Unavailable Unavailable Encounter Details Date Type Department Care Team Description 11/21/2018 Orders Only Medical Records [address] [place] [address] Maycol Infante MD Social History Tobacco Use [...] on filedocumented in this encounter Care Teams Assistant Coach Relationship Specialty Start Date End Date Wiley Thompson MD PCP - General Internal Medicine 06/04/14 01/20/22 Kathy Christopher MD [address] [place] [address] PCP - General Internal Medicine 01/21/22 Kameron Zuñiga MD Glass Designer Cardiovascular Disease 08/04/21 Katya Lopez NP Cardiology 08/04/21 01/30/24 Be Pacheco NP [address] [place] [address] Nurse Practitioner Cardiology 10/17/22 01/30/24 Maycol Infante MD [address] [place] [address] 71331 Specialist Pulmonology 10/19/22 Sebastian Martinez MD [address] [place] [address]10 Specialist Ophthalmology 03/21/23 Eve Juan MD [address] [place] [address] [place] [address] Specialist UROGYNECOLOGY 03/21/23 Elisa Romero NP [address] [place] [address] [place] [address] Cardiology 01/31/24 Marcus Murcia DO [address] [place] [address] [place] [address] Specialist Physiatry 03/26/24 documented as of this encounter
--- OUTSIDE RECORDS SUMMARY | 2024-09-17 17:55 | XMS_ITS | Encounter Summary ---
Author Organization [facility] Address [address] [place] [address] Care Team Providers Care Gas Brazer Name Role Phone Wiley Thompson MD Primary Care Provider Kameron Cornejo MD Unavailable Katya Lopez NP Unavailable Unavailab Kathy Christopher MD Primary Care Prov ider Be Pacheco NP Unavailable Maycol Infante MD Unavailable Unavailable Sebastian Martinez MD Unavailable UnavailEve Blackmon MD Unavailable Elisa Romero NP Unavailable [phone] Marcus Murcia DO Unavailable Unavailable Encounter Details Date Type Department Care Team Description 12/24/2018 Release of Information Medical Records [address] [place] [address] Abstract, Provider Social History Tobacco Use Types [...] on filedocumented in this encounter Care Teams Gas Brazer Relationship Specialty Start Date End Date Wiley Thompson MD PCP - General Internal Medicine 06/04/14 01/20/22 Kathy Christopher MD [address] [place] [address] 90792 PCP - General Internal Medicine 01/21/22 Kameron Zuñiga MD Health Coordinator Cardiovascular Disease 08/04/21 Katya Lopez, IRMA Cardiology 08/04/21 01/30/24 Be Pacheco NP [address] [place] [address] 61085 Nurse Practitioner Cardiology 10/17/22 01/30/24 Maycol Infante MD [address] [place] [address] 94160 Specialist Pulmonology 10/19/22 Sebastian Martinez MD [address] [place] [address] 01480 Specialist Ophthalmology 03/21/23 Eve Juan MD [address] [place] [address] [place] [address] Specialist UROGYNECOLOGY 03/21/23 Elisa Romero NP [address] [place] [address] [place] [address] Cardiology 01/31/24 Marcus Murcia DO [address] [place] [address] [place] [address] Specialist Physiatry 03/26/24 documented as of this encounter
--- OUTSIDE RECORDS SUMMARY | 2024-09-17 17:55 | XMS_ITS | Encounter Summary ---
Author Organization [facility] Address [address] [place] [address] Care Team Providers Care News Videotape Editor Name Role Phone Wiley Thompson MD Primary Care Provider Kameron Cornejo MD Unavailable Katya Lopez SYSTEMS PROGRAMMER Unavailable Unavailab Kathy Haley MD Primary Care Prov ider Be Pacheco NP Unavailable [phone] Maycol Infante MD Unavailable Unavailable Sebastian Martinez MD Unavailable UnavailEve Blackmon MD Unavailable Elisa Romero NP Unavailable [phone] Marcus Murcia DO Unavailable Unavailable Encounter Details Date Type Department Care Team Description 02/07/2018 Laborer Bituminous Paving Report Medical Records [address] [place] [address] Asya Waller, IRMA Social History Tobacco Use [...] on filedocumented in this encounter Care Teams News Videotape Editor Relationship Specialty Start Date End Date Wiley Thompson MD PCP - General Internal Medicine 06/04/14 01/20/22 Kathy Christopher MD [address] [place] [address] PCP - General Internal Medicine 01/21/22 Kameron Zuñiga MD Manager Developmental Cardiovascular Disease 08/04/21 Katya Lopez, IRMA Cardiology 08/04/21 01/30/24 Be Pacheco NP [address] [place] [address] Nurse Practitioner Cardiology 10/17/22 01/30/24 Maycol Infante MD [address] [place] [address] Specialist Pulmonology 10/19/22 Sebastian Martinez MD [address] [place] [address] 8[address]76 Specialist Ophthalmology 03/21/23 Eve Juan MD [address] [place] [address] [place] [address] Specialist UROGYNECOLOGY 03/21/23 Elisa Romero NP [address] [place] [address] [place] [address] Cardiology 01/31/24 Marcus Murcia DO [address] [place] [address] [place] [address] Specialist Physiatry 03/26/24 documented as of this encounter
--- OUTSIDE RECORDS SUMMARY | 2024-09-17 17:55 | XMS_ITS | Encounter Summary ---
Author Organization [facility] Address [address] [place] [address] Care Team Providers Care Cinder Dump Crane Operator Name Role Phone Wiley Thompson MD Primary Care Provider Kameron Cronejo MD Unavailable Katya Lopez SPEAKING UNIT ASSEMBLER Unavailable Unavailab Kathy Haley MD Primary Care Prov ider Be Pacheco NP Unavailable [phone] Maycol Infante MD Unavailable Unavailable Sebastian Martinez MD Unavailable UnavailEve Blackmon MD Unavailable Elisa Romero NP Unavailable [phone] Marcus Murcia DO Unavailable Unavailable Encounter Details Date Type Department Care Team Description 03/19/2018 Director Of Valuation Report Medical Records [address] [place] [address] Asay Waller, IRMA Social History Tobacco Use Types [...] on filedocumented in this encounter Care Teams Cinder Dump Crane Operator Relationship Specialty Start Date End Date Wiley Thompson MD PCP - General Internal Medicine 06/04/14 01/20/22 Kathy Christopher MD [address] [place] [address] PCP - General Internal Medicine 01/21/22 Kameron Zuñiga MD Roll Operator Cardiovascular Disease 08/04/21 Katya Lopez, IRMA Cardiology 08/04/21 01/30/24 Be Pacheco NP [address] [place] [address] Nurse Practitioner Cardiology 10/17/22 01/30/24 Maycol Infante MD [address] [place] [address] Specialist Pulmonology 10/19/22 Sebastian Martinez MD [address] [place] [address] 48617 Specialist Ophthalmology 03/21/23 Eve Juan MD [address] [place] [address] [place] [address] Specialist UROGYNECOLOGY 03/21/23 Elisa Romero NP [address] [place] [address] [place] [address] Cardiology 01/31/24 Marcus Murcia DO [address] [place] [address] [place] [address] Specialist Physiatry 03/26/24 documented as of this encounter
--- OUTSIDE RECORDS SUMMARY | 2024-09-17 17:55 | XMS_ITS | Encounter Summary ---
Author Organization [facility] Address [address] [place] [address] Care Team Providers Care Vocational Evaluator Name Role Phone Kameron Zuñiga MD Unavailable Katya Lopez NP Unavailable Unavailab Kathy Haley MD Primary Care Prov ider Be Pacheco NP Unavailable [phone] Maycol Infante MD Unavailable Unavailable Sebastian Martinez MD Unavailable UnavailEve Blackmon MD Unavailable Elisa Romero NP Unavailable Marcus Murcia DO Unavailable Unavailable Encounter Details Date Type Department Care Team Description 12/09/2022 Tearer Report Medical Records [address] [place] [address] Maycol Infante MD Social History Tobacco Use [...] on filedocumented in this encounter Care Teams Vocational Evaluator Relationship Specialty Start Date End Date Kathy Christopher MD [address] [place] [address] PCP - General Internal Medicine 01/21/22 Kameron Zuñiga MD Professor Of Economics Cardiovascular Disease 08/04/21 Katya Lopez NP Cardiology 08/04/21 01/30/24 Be Pacheco NP [address] [place] [address] Nurse Practitioner Cardiology 10/17/22 01/30/24 Maycol Infante MD [address] [place] [address]15 Specialist Pulmonology 10/19/22 Sebastian Martinez MD [address] [place] [address]47 Specialist Ophthalmology 03/21/23 Eve Juan MD [address] [place] [address] [place] [address] Specialist UROGYNECOLOGY 03/21/23 Elisa Romero NP [address] [place] [address] [place] [address] Cardiology 01/31/24 Marcus Murcia DO [address] [place] [address] [place] [address] Specialist Physiatry 03/26/24 documented as of this encounter
--- OUTSIDE RECORDS SUMMARY | 2024-09-17 17:55 | XMS_ITS | Encounter Summary ---
Author Organization [facility] Address [address] [place] [address] Care Team Providers Care Bed Machine Operator Name Role Phone Wiley Thompson MD Primary Care Provider Kameron Cornejo MD Unavailable Katya Lopez NP Unavailable Unavailab Kathy Haley MD Primary Care Prov ider Be Pacheco NP Unavailable [phone] Maycol Infante MD Unavailable Unavailable Sebastian Martinez MD Unavailable UnavailEve Blackmon MD Unavailable Elisa Romero NP Unavailable [phone] aMrcus Murcia DO Unavailable Unavailable Reason for Visit * Reason Comments E-prescribe Rx Request Encounter Details Date Type Department Care Team Description 05/25/2021 Refill Adult Medicine [address] [address] Wiley Thompson MD E-prescribe Rx Request Social [...] encounter Miscellaneous Notes * Telephone Encounter - Soraida Morales M.A. - 05/26/2021 11:13 AM EST Lab Results Component Value Date NA 142 12/25/2020 K 4.0 12/25/2020 CO2 26 12/25/2020 CL 108 12/25/2020 BUN 25 12/25/2020 CREAT 0.94 12/25/2020 GLU 83 12/25/2020 CA 9.0 12/25/2020 GFR 58 12/25/2020 Last appt with Pau 02/08/21 * Telephone Encounter - Michael Sharpe - 05/26/2021 7:14 AM EST Patient would like script to be: E-PRESCRIBED/FAXED TO PHARMACY WHEN WAS THE PATIENT'S LAST APPOINTMENT IN ADULT MEDICINE? 02/08/2021 WHEN WAS THE LAST TIME THE PATIENT SAW THEIR PCP? 11/05/2020 Does patient have an upcoming appointment? Yes 06/24/2021 (THE MEDICATION REQUESTED IS ON THE MED [...] N/A Patients current insurance carrier is: Payor: [facility] [employer] MCR / Plan: O $0 [facility] [id number] / Product Type: HMO [id number] documented in this encounter Plan of Treatment Not on file documented as of this encounter Visit Diagnoses Not on filedocumented in this encounter Care Teams Bed Machine Operator Relationship Specialty Start Date End Date Wiley Thompson MD PCP - General Internal Medicine 06/04/14 01/20/22 Kathy Christopher MD [address] [place] [address] 39827 PCP - General Internal Medicine 01/21/22 Kameron Zuñiga MD Hospital Liaison Cardiovascular Disease 08/04/21 Katya Lopez, IRMA Cardiology 08/04/21 01/30/24 Be Pacheco NP [address] [place] [address] 67969 Nurse Practitioner Cardiology 10/17/22 01/30/24 Maycol Infante MD [address] [place] [address]24 Specialist Pulmonology 10/19/22 Sebastian Martinez MD [address] [place] [address] 33706 Specialist Ophthalmology 03/21/23 Eve Juan MD [address] [place] [address] [place] [address] Specialist UROGYNECOLOGY 03/21/23 Elisa Romero NP [address] [place] [address] [place] [address] Cardiology 01/31/24 Marcus Murcia DO [address] [place] [address] [place] [address] Specialist Physiatry 03/26/24 documented as of this encounter
--- OUTSIDE RECORDS SUMMARY | 2024-09-17 17:55 | XMS_ITS | Encounter Summary ---
Author Organization [facility] Address [address] [place] [address] Care Team Providers Care Bridge Teacher Name Role Phone Bri Santacruz MD Primary Care Provider Unavailable Wiley Thompson MD Primary Care Provider Kameron Cornejo MD Unavailable Katya Lopez NP Unavailable Unavailab Kathy Haley MD Primary Care Prov ider Be Pacheco NP Unavailable [phone] Maycol Infante MD Unavailable Unavailable Sebastian Martinez MD Unavailable UnavailEve Blackmon MD Unavailable Elisa Romero NP Unavailable [phone] Marcus Murcia DO Unavailable Unavailable Encounter Details Date Type Department Care Team Description 02/01/2014 Hospital Medical Records [address] [place] [address] Floresita Fletcher DO Social History Tobacco Use Types Packs/Day [...] on filedocumented in this encounter Care Teams Bridge Teacher Relationship Specialty Start Date End Date Bri Santacruz MD PCP - General Internal Medicine 04/23/12 06/03/14 Wiley Thompson MD PCP - General Internal Medicine 06/04/14 01/20/22 Kathy Christopher MD [address] [place] [address] 8[address]36 PCP - General Internal Medicine 01/21/22 Kameron Zuñiga MD Car Rental Agent Cardiovascular Disease 08/04/21 Katya Lopez NP Cardiology 08/04/21 01/30/24 Be Pacheco NP [address] [place] [address] 42320 Nurse Practitioner Cardiology 10/17/22 01/30/24 aMycol Infante MD [address] [place] [address] 57458 Specialist Pulmonology 10/19/22 Sebastian Martinez MD [address] [place] [address] 78572 Specialist Ophthalmology 03/21/23 Eve Juan MD [address] [place] [address] [place] [address] Specialist UROGYNECOLOGY 03/21/23 Elisa Romero NP [address] [place] [address] [place] [address] Cardiology 01/31/24 Marcus Murcia DO [address] [place] [address] [place] [address] Specialist Physiatry 03/26/24 documented as of this encounter
--- OUTSIDE RECORDS SUMMARY | 2024-09-17 17:55 | XMS_ITS | Encounter Summary ---
Author Organization [facility] Address [address] [place] [address] Care Team Providers Care Biomass Boiler Operator Name Role Phone Kameron Zuñiga MD Unavailable Katya Lopez NP Unavailable Unavailab Kathy Haley MD Primary Care Prov ider Be Pacheco NP Unavailable [phone] Maycol Infante MD Unavailable Unavailable Sebastian Martinez MD Unavailable UnavailEve Blackmon MD Unavailable Elisa Romero NP Unavailable [phone] Marcus Murcia DO Unavailable Unavailable Reason for Visit * Reason Onset Date Comments refill request 01/20/2023 Encounter Details Date Type Department Care Team Description 01/20/2023 Refill Urogynecology [address] [address] Eve Juan MD [address] [place] [address] [place] [address] refill request Social History Tobacco Use Types [...] [facility] / Plan: O $0 [facility] [id number] / Product Type: HMO [id number] documented in this encounter Plan of Treatment Not on file documented as of this encounter Visit Diagnoses Not on filedocumented in this encounter Care Teams Biomass Boiler Operator Relationship Specialty Start Date End Date Kathy Christopher MD [address] [place] [address] PCP - General Internal Medicine 01/21/22 Kameron Zuñiga MD Extraction Machine Operator Cardiovascular Disease 08/04/21 Katya Lopez NP Cardiology 08/04/21 01/30/24 Be Pacheco NP [address] [place] [address] 75404 Nurse Practitioner Cardiology 10/17/22 01/30/24 Maycol Infante MD [address] [place] [address] 16039 Specialist Pulmonology 10/19/22 Sebastian Martinez MD [address] [place], [place] [address] Specialist Ophthalmology 03/21/23 Eve Juan MD [address] [place] [address] [place] [address] Specialist UROGYNECOLOGY 03/21/23 Elisa Romero NP [address] [place] [address] [place] [address] Cardiology 01/31/24 Marcus Murcia DO [address] [place] [address] [place] [address] Specialist Physiatry 03/26/24 documented as of this encounter
--- OUTSIDE RECORDS SUMMARY | 2024-09-17 17:55 | XMS_ITS | Encounter Summary ---
Author Organization [facility] Address [address] [place] [address] Care Team Providers Care Geothermal Production Manager Name Role Phone Bri Santacruz MD Primary Care Provider Unavailable Wiley Thompson MD Primary Care Provider Kameron Cornejo MD Unavailable Katya Lopez NP Unavailable Unavailab Kathy Haley MD Primary Care Prov ider Be Pacheco NP Unavailable Maycol Infante MD Unavailable Unavailable Sebastian Martinez MD Unavailable UnavailEve Blackmon MD Unavailable Elisa Romero NP Unavailable [phone] Marcus Murcia DO Unavailable Unavailable Encounter Details Date Type Department Care Team Description 05/27/2014 Controlled Substance Plan Medical Records [address] [place] [address] Abstract, Provider Social History Tobacco Use Types [...] on filedocumented in this encounter Care Teams Geothermal Production Manager Relationship Specialty Start Date End Date Bri Santacruz MD PCP - General Internal Medicine 04/23/12 06/03/14 Wiley Thompson MD PCP - General Internal Medicine 06/04/14 01/20/22 Kathy Christopher MD [address] [place] [address]852 PCP - General Internal Medicine 01/21/22 Kameron Zuñiga MD Steam Hoist Operator Cardiovascular Disease 08/04/21 Katya Lopez NP Cardiology 08/04/21 01/30/24 Be Pacheco NP [address] [place] [address]30 Nurse Practitioner Cardiology 10/17/22 01/30/24 Maycol Infante MD [address] [place] [address]140 Specialist Pulmonology 10/19/22 Sebastian Martinez MD [address] [place] [address]2449 Specialist Ophthalmology 03/21/23 Eve Juan MD [address] [place] [address] [place] [address] Specialist UROGYNECOLOGY 03/21/23 Elisa Romero NP [address] [place] [address] [place] [address] Cardiology 01/31/24 Marcus Murcia DO [address] [place] [address] [place] [address] Specialist Physiatry 03/26/24 documented as of this encounter
--- OUTSIDE RECORDS SUMMARY | 2024-09-17 17:55 | XMS_ITS | Encounter Summary ---
Author Organization [facility] Address [address] [place] [address] Care Team Providers Care Artillery Or Naval Gunfire Observer Name Role Phone Wiley Thompson MD Primary Care Provider Kameron Cornejo MD Unavailable Katya Lopez NP Unavailable Unavailab Kathy Christopher MD Primary Care Prov ider Be Pacheco NP Unavailable [phone] Maycol Infante MD Unavailable Unavailable Sebastian Martinez MD Unavailable UnavailEve Blackmon MD Unavailable Elisa Romero NP Unavailable [phone] Marcus Murcia DO Unavailable Unavailable Encounter Details Date Type Department Care Team Description 05/31/2016 Hooker Laster Report Medical Records [address] [place] [address] Raissa Cavazos Social History Tobacco Use Types [...] on filedocumented in this encounter Care Teams Artillery Or Naval Gunfire Observer Relationship Specialty Start Date End Date Wiley Thompson MD PCP - General Internal Medicine 06/04/14 01/20/22 Kathy Christopher MD [address] [place] [address] 467[address] PCP - General Internal Medicine 01/21/22 Kameron Zuñiga MD Structural Steel Shop Supervisor Cardiovascular Disease 08/04/21 Katya Lopez NP Cardiology 08/04/21 01/30/24 Be Pacheco NP [address] [place] [address] Nurse Practitioner Cardiology 10/17/22 01/30/24 Maycol Infante MD [address] [place] [address] Specialist Pulmonology 10/19/22 Sebastian Martinez MD [address] [place], [place] [address] Specialist Ophthalmology 03/21/23 Eve Juan MD [address] [place] [address] [place] [address] Specialist UROGYNECOLOGY 03/21/23 Elisa Romero NP [address] [place] [address] [place] [address] Cardiology 01/31/24 Marcus Murcia DO [address] [place] [address] [place] [address] Specialist Physiatry 03/26/24 documented as of this encounter
--- OUTSIDE RECORDS SUMMARY | 2024-09-17 17:55 | XMS_ITS | Encounter Summary ---
Author Organization [facility] Address [address] [place] [address] Care Team Providers Care Web Specialist Name Role Phone Wiley Thompson MD Primary Care Provider Kameron Cornejo MD Unavailable Katya Lopez NP Unavailable Unavailab Kathy Haley MD Primary Care Prov ider Be Pacheco NP Unavailable [phone] Maycol Infante MD Unavailable Unavailable Sebastian Martinez MD Unavailable UnavailEve Blackmon MD Unavailable Elisa Romero NP Unavailable [phone] Marcus Murcia DO Unavailable Unavailable Encounter Details Date Type Department Care Team Description 04/24/2020 Hospital Medical Records [address] [place] [address] Rhianna Mcneill Social History Tobacco Use Types Packs/Day Years [...] Date/Time Associated Diagnosis Comments OUTSIDE CT Routine 04/23/2020 documented in this encounter Results * OUTSIDE CT (04/23/2020) Provider Abstract RADIOLOGY documented in this encounter Visit Diagnoses Not on filedocumented in this encounter Care Teams Web Specialist Relationship Specialty Start Date End Date Wiley Thompson MD PCP - General Internal Medicine 06/04/14 01/20/22 Kathy Christopher MD [address] [place] [address] PCP - General Internal Medicine 01/21/22 Kameron Zuñiga MD Drum Sander Setter Cardiovascular Disease 08/04/21 Katya Lopez NP Cardiology 08/04/21 01/30/24 Be Pacheco NP [address] [place] [address] Nurse Practitioner Cardiology 10/17/22 01/30/24 Maycol Infante MD [address] [place] [address] Specialist Pulmonology 10/19/22 Sebastian Martinez MD [address] [place] [address]48 Specialist Ophthalmology 03/21/23 Eve Juan MD [address] [place] [address] [place] [address] Specialist UROGYNECOLOGY 03/21/23 Elisa Romero NP [address] [place] [address] [place] [address] Cardiology 01/31/24 Marcus Murcia DO [address] [place] [address] [place] [address] Specialist Physiatry 03/26/24 documented as of this encounter
--- OUTSIDE RECORDS SUMMARY | 2024-09-17 17:55 | XMS_ITS | Encounter Summary ---
Author Organization [facility] Address [address] [place] [address] Care Team Providers Care Program Project Analyst Name Role Phone Wiley Thompson MD Primary Care Provider Kameron Cornejo MD Unavailable Katya Lopez NP Unavailable Unavailab Kathy Haley MD Primary Care Prov ider Be Pacheco NP Unavailable [phone] Maycol Infante MD Unavailable Unavailable Sebastian Martinez MD Unavailable UnavailEve Blackmon MD Unavailable Elisa Romero NP Unavailable [phone] Marcus Murcia DO Unavailable Unavailable Reason for Visit * Reason Onset Date Comments refill request 05/06/2020 Encounter Details Date Type Department Care Team Description 05/06/2020 Refill Adult Medicine [address] [address] Wiley Thompson MD refill request Social History [...] N/A Patients current insurance carrier is: Payor: [facility] MCR / Plan: [employer] $0 [facility] [id number] / Product Type: HMO [id number] documented in this encounter Plan of Treatment Not on file documented as of this encounter Visit Diagnoses Not on filedocumented in this encounter Care Teams Program Project Analyst Relationship Specialty Start Date End Date Wiley Thompson MD PCP - General Internal Medicine 06/04/14 01/20/22 Kathy Christopher MD [address] [place] [address] PCP - General Internal Medicine 01/21/22 Kameron Zuñiga MD Certified Coding Specialist Cardiovascular Disease 08/04/21 Katya Lopez, IRMA Cardiology 08/04/21 01/30/24 Be Pacheco NP [address] [place] [address]69 Nurse Practitioner Cardiology 10/17/22 01/30/24 Maycol Infante MD [address] [place] [address] Specialist Pulmonology 10/19/22 Sebastian Martinez MD [address] [place] [address] Specialist Ophthalmology 03/21/23 Eve Juan MD [address] [place] [address] [place] [address] Specialist UROGYNECOLOGY 03/21/23 Elisa Romero NP [address] [place] [address] [place] [address] Cardiology 01/31/24 Marcus Murcia DO [address] [place] [address] [place] [address] Specialist Physiatry 03/26/24 documented as of this encounter
--- OUTSIDE RECORDS SUMMARY | 2024-09-17 17:55 | XMS_ITS | Encounter Summary ---
Author Organization [facility] Address [address] [place] [address] Care Team Providers Care Night Shift Supervisor Name Role Phone Wiley Thompson MD Primary Care Provider Kameron Cornejo MD Unavailable Katya Lopez NP Unavailable Unavailab Kathy Christopher MD Primary Care Prov ider Be Pacheco NP Unavailable [phone] Maycol Infante MD Unavailable Unavailable Sebastian Martinez MD Unavailable UnavailEve Blackmon MD Unavailable Elisa Roemro NP Unavailable [phone] Marcus Murcia DO Unavailable Unavailable Encounter Details Date Type Department Care Team Description 07/30/2014 Controlled Substance Plan Medical Records [address] [place] [address] Abstract, Provider Social History Tobacco Use Types [...] on filedocumented in this encounter Care Teams Night Shift Supervisor Relationship Specialty Start Date End Date Wiley Thompson MD PCP - General Internal Medicine 06/04/14 01/20/22 Kathy Christopher MD [address] [place] [address] PCP - General Internal Medicine 01/21/22 Kameron Zuñiga MD Lumite Injector Cardiovascular Disease 08/04/21 Katya Lopez NP Cardiology 08/04/21 01/30/24 Be Pacheco NP [address] [place] [address] Nurse Practitioner Cardiology 10/17/22 01/30/24 Maycol Infante MD [address] [place] [address] Specialist Pulmonology 10/19/22 Sebastian Martinez MD [address] [place], [place] [phone] Specialist Ophthalmology 03/21/23 Eve Juan MD [address] [place] [address] [place] [address] Specialist UROGYNECOLOGY 03/21/23 Elisa Romero NP [address] [place] [address] [place] [address] Cardiology 01/31/24 Marcus Murcia DO [address] [place] [address] [place] [address] Specialist Physiatry 03/26/24 documented as of this encounter
--- OUTSIDE RECORDS SUMMARY | 2024-09-17 17:55 | XMS_ITS | Encounter Summary ---
Author Organization [facility] Address [address] [place] [address] Care Team Providers Care Baked Goods Stock Clerk Name Role Phone Kameron Zuñiga MD Unavailable Katya Lopez NP Unavailable Unavailab le Kathy Christopher MD Primary Care Prov ider Be Pacheco NP Unavailable [phone] Maycol Infante MD Unavailable Unavailable Sebastian Martinez MD Unavailable UnavailEve Blackmon MD Unavailable Elisa Romero NP Unavailable [phone] Marcus Murcia DO Unavailable Unavailable Encounter Details Date Type Department Care Team Description 06/07/2023 Pulp Press Tender Report Medical Records [address] [place] [address] Lalitha Diego, [facility]- Social History Tobacco Use Types Packs/Day [...] on filedocumented in this encounter Care Teams Baked Goods Stock Clerk Relationship Specialty Start Date End Date Kathy Christopher MD [address] [place] [address] [phone] PCP - General Internal Medicine 01/21/22 Kameron Zuñiga MD Institution Director Cardiovascular Disease 08/04/21 Katya Lopez, IRMA Cardiology 08/04/21 01/30/24 Be Pacheco NP [address] [place] [address] Nurse Practitioner Cardiology 10/17/22 01/30/24 Maycol Infante MD [address] [place] [address] Specialist Pulmonology 10/19/22 Sebastian Martinez MD [address] [place] [address] Specialist Ophthalmology 03/21/23 Eve Juan MD [address] [place] [address] [place] [address] Specialist UROGYNECOLOGY 03/21/23 Elisa Romero NP [address] [place] [address] [place] [address] Cardiology 01/31/24 Marcus Murcia DO [address] [place] [address] [place] [address] Specialist Physiatry 03/26/24 documented as of this encounter
--- OUTSIDE RECORDS SUMMARY | 2024-09-17 17:55 | XMS_ITS | Encounter Summary ---
Author Organization [facility] Address [address] [place] [address] Care Team Providers Care Production Aide Name Role Phone Wiley Thompson MD Primary Care Provider Kameron Cornejo MD Unavailable Katya Lopez NP Unavailable Unavailab Kathy Haley MD Primary Care Prov ider Be Pacheco NP Unavailable [phone] Maycol Infante MD Unavailable Unavailable Sebastian Martinez MD Unavailable UnavailEve Blackmon MD Unavailable Elisa Romero NP Unavailable [phone] Marcus Murcia DO Unavailable Unavailable Reason for Visit * Reason Comments E-prescribe Rx Request Encounter Details Date Type Department Care Team Description 07/16/2021 Refill Adult Medicine [address] [phone] Pau Shultz PA [address] [place] [address] [phone] E-prescribe Rx Request Social History Tobacco Use [...] N/A Patients current insurance carrier is: Payor: [facility] MCR / Plan: O $0 [facility] [id number] / Product Type: HMO [id number] documented in this encounter Plan of Treatment Not on file documented as of this encounter Visit Diagnoses Not on filedocumented in this encounter Care Teams Production Aide Relationship Specialty Start Date End Date Wiley Thompson MD PCP - General Internal Medicine 06/04/14 01/20/22 Kathy Christopher MD [address] [place] [address] PCP - General Internal Medicine 01/21/22 Kameron Zuñiga MD Biztalk Software Developer Cardiovascular Disease 08/04/21 Katya Lopez NP Cardiology 08/04/21 01/30/24 Be Pacheco NP [address] [place] [address] Nurse Practitioner Cardiology 10/17/22 01/30/24 Maycol Infante MD [address] [place] [address] Specialist Pulmonology 10/19/22 Sebastian Martinez MD [address] [place] [address] Specialist Ophthalmology 03/21/23 Eve Juan MD [address] [place] [address] [place] [address] Specialist UROGYNECOLOGY 03/21/23 Elisa Romero NP [address] [place] [address] [place] [address] Cardiology 01/31/24 Marcus Murcia DO [address] [place] [address] [place] [address] Specialist Physiatry 03/26/24 documented as of this encounter
--- OUTSIDE RECORDS SUMMARY | 2024-09-17 17:55 | XMS_ITS | Encounter Summary ---
Author Organization [facility] Address [address] [place] [address] Care Team Providers Care Scientific Editor Name Role Phone Bri Santacruz MD Primary Care Provider Unavailable Wiley Thompson MD Primary Care Provider Kameron Cornejo MD Unavailable Katya Lopez NP Unavailable Unavailab Kathy Haley MD Primary Care Prov ider Be Pacheco CUPOLA TENDER Unavailable [phone] Maycol Infante MD Unavailable Unavailable Sebastian Martinez MD Unavailable UnavailEve Blackmon MD Unavailable Elisa Romero NP Unavailable [phone] Marcus Murcia DO Unavailable Unavailable Encounter Details Date Type Department Care Team Description 07/23/2012 Night Triage Doc Medical Records [address] [place] [address] Abstract, Provider Social History Tobacco Use Types [...] on filedocumented in this encounter Care Teams Scientific Editor Relationship Specialty Start Date End Date Bri Santacruz MD PCP - General Internal Medicine 04/23/12 06/03/14 Wiley Thompson MD PCP - General Internal Medicine 06/04/14 01/20/22 Kathy Christopher MD [address] [place] [address] PCP - General Internal Medicine 01/21/22 Kameron Zuñiga MD Salvager Helper Cardiovascular Disease 08/04/21 Katya Lopez, IRMA Cardiology 08/04/21 01/30/24 Be Pacheco NP [address] [place] [address] Nurse Practitioner Cardiology 10/17/22 01/30/24 Maycol Infante MD [address] [place] [address] Specialist Pulmonology 10/19/22 Sebastian Martinez MD [address] [place] [address] Specialist Ophthalmology 03/21/23 Eve Juan MD [address] [place] [address] [place] [address] Specialist UROGYNECOLOGY 03/21/23 Elisa Romero, IRMA [address] [place] [address] [place] [address] Cardiology 01/31/24 Marcus Murcia DO [address] [place] [address] [place] [address] Specialist Physiatry 03/26/24 documented as of this encounter
--- OUTSIDE RECORDS SUMMARY | 2024-09-17 17:55 | XMS_ITS | Encounter Summary ---
Author Organization [facility] Address [address] [place] [address] Care Team Providers Care Rn Paralegal Name Role Phone Wiley Thompson MD Primary Care Provider Kameron Cornejo MD Unavailable Katya Lopez NP Unavailable Unavailab Kathy Haley MD Primary Care Prov ider Be Pacheco NP Unavailable [phone] Maycol Infante MD Unavailable Unavailable Sebastian Martinez MD Unavailable UnavailEve Blackmon MD Unavailable Elisa Romero NP Unavailable [phone] Marcus Murcia DO Unavailable Unavailable Encounter Details Date Type Department Care Team Description 06/04/2014 SCAN Medical Records [address] [place] [address] Abstract, Provider Social History Tobacco Use Types [...] Date/Time Associated Diagnosis Comments OUTSIDE LAB Routine 04/03/2014 documented in this encounter Results * OUTSIDE LAB (04/03/2014) Provider Abstract LAB documented in this encounter Visit Diagnoses Not on filedocumented in this encounter Care Teams Rn Paralegal Relationship Specialty Start Date End Date Wiley Thompson MD PCP - General Internal Medicine 06/04/14 01/20/22 Kathy Christopher MD [address] [place] [address] PCP - General Internal Medicine 01/21/22 Kameron Zuñiga MD Java Systems Analyst Cardiovascular Disease 08/04/21 Katya Lopez NP Cardiology 08/04/21 01/30/24 Be Pacheco NP [address] [place] [address] Nurse Practitioner Cardiology 10/17/22 01/30/24 Maycol Infante MD [address] [place] [address] Specialist Pulmonology 10/19/22 Sebastian Martinez MD [address] [place], [place] [phone] Specialist Ophthalmology 03/21/23 Eve Juan MD [address] [place] [address] [place] [address] Specialist UROGYNECOLOGY 03/21/23 Elisa Romero NP [address] [place] [address] [place] [address] Cardiology 01/31/24 Marcus Murcia DO [address] [place] [address] [place] [address] Specialist Physiatry 03/26/24 documented as of this encounter
--- OUTSIDE RECORDS SUMMARY | 2024-09-17 17:55 | XMS_ITS | Encounter Summary ---
Author Organization [facility] Address [address] [place] [address] Care Team Providers Care Geospatial Information Scientist Name Role Phone Bri Santacruz MD Primary Care Provider Unavailable Wiley Thomposn MD Primary Care Provider Kameron Cornejo MD Unavailable Katya Lopez NP Unavailable Unavailab Kathy Haley MD Primary Care Prov ider Be Pacheco NP Unavailable [phone] Maycol Infante MD Unavailable Unavailable Sebastian Martinez MD Unavailable UnavailEve Blackmon MD Unavailable Elisa Romero NP Unavailable [phone] Marcus Murcia DO Unavailable Unavailable Encounter Details Date Type Department Care Team Description 10/23/2012 Controlled Substance Contract with [facility] Medical Records [address] [place] [address] Abstract, Provider Social History Tobacco Use Types [...] on filedocumented in this encounter Care Teams Geospatial Information Scientist Relationship Specialty Start Date End Date Bri Santacruz MD PCP - General Internal Medicine 04/23/12 06/03/14 Wiley Thompson MD PCP - General Internal Medicine 06/04/14 01/20/22 Kathy Christopher MD [address] [place] [address] PCP - General Internal Medicine 01/21/22 Kameron Zuñiga MD Purchaser Automotive Parts Cardiovascular Disease 08/04/21 Katya Lopez NP Cardiology 08/04/21 01/30/24 Be Pacheco NP [address] [place] [address]196 Nurse Practitioner Cardiology 10/17/22 01/30/24 Maycol Infante MD [address] [place] [address] Specialist Pulmonology 10/19/22 Sebastian Martinez MD [address] [place], [place] [phone] Specialist Ophthalmology 03/21/23 Eve Juan MD [address] [place] [address] [place] [address] Specialist UROGYNECOLOGY 03/21/23 Elisa Romero NP [address] [place] [address] [place] [address] Cardiology 01/31/24 Marcus Murcia DO [address] [place] [address] [place] [address] Specialist Physiatry 03/26/24 documented as of this encounter
--- OUTSIDE RECORDS SUMMARY | 2024-09-17 17:55 | XMS_ITS | Encounter Summary ---
Author Organization [facility] Address [address] [place] [address] Care Team Providers Care Ophthalmic Lens Inspector Name Role Phone Wiley Thompson MD Primary Care Provider Kameron Cornejo MD Unavailable Katya Lopez NP Unavailable Unavailab Kathy Haley MD Primary Care Prov ider Be Pacheco NP Unavailable [phone] Maycol Infante MD Unavailable Unavailable Sebastian Martinez MD Unavailable UnavailEve Blackmon MD Unavailable Elisa Romero NP Unavailable [phone] Marcus Murcia DO Unavailable Unavailable Encounter Details Date Type Department Care Team Description 05/30/2018 Orders Only Medical Records [address] [place] [address] Talia Coleman PA-C [address] [place], [place] [phone] Social History Tobacco Use Types Packs/Day Years [...] on filedocumented in this encounter Care Teams Ophthalmic Lens Inspector Relationship Specialty Start Date End Date Wiley Thompson MD PCP - General Internal Medicine 06/04/14 01/20/22 Kathy Christopher MD [address] [place], [place] [phone] PCP - General Internal Medicine 01/21/22 Kameron Zuñiga MD Cosmetology Educator Cardiovascular Disease 08/04/21 Katya Lopez NP Cardiology 08/04/21 01/30/24 Be Pacheco NP [address] [place] [address]96 Nurse Practitioner Cardiology 10/17/22 01/30/24 Maycol Infante MD [address] [place] [address] Specialist Pulmonology 10/19/22 Sebastian Martinez MD [address] [place] [address] Specialist Ophthalmology 03/21/23 Eve Juan MD [address] [place] [address] [place] [address] Specialist UROGYNECOLOGY 03/21/23 Elisa Romero NP [address] [place] [address] [place] [address] Cardiology 01/31/24 Marcus Murcia DO [address] [place] [address] [place] [address] Specialist Physiatry 03/26/24 documented as of this encounter
--- OUTSIDE RECORDS SUMMARY | 2024-09-17 17:55 | XMS_ITS | Encounter Summary ---
Author Organization [facility] Address [address] [place] [address] Care Team Providers Care Fire Equipment Operator Name Role Phone Bri Santacruz MD Primary Care Provider Unavailable Wiley Thompson MD Primary Care Provider Kameron Cornejo MD Unavailable Katya Lopez NP Unavailable Unavailab Kathy Haley MD Primary Care Prov ider Be Pacheco NP Unavailable [phone] Maycol Infante MD Unavailable Unavailable Sebastian Martinez MD Unavailable UnavailEve Blackmon MD Unavailable Elisa Romero NP Unavailable [phone] Marcus Murcia DO Unavailable Unavailable Encounter Details Date Type Department Care Team Description 12/31/2013 Telephone Adult Medicine [address] [address] Bri Santacruz MD Social History Tobacco Use [...] on filedocumented in this encounter Care Teams Fire Equipment Operator Relationship Specialty Start Date End Date Bri Santacruz MD PCP - General Internal Medicine 04/23/12 06/03/14 Wiley Thompson MD PCP - General Internal Medicine 06/04/14 01/20/22 Kathy Christopher MD [address] [place] [address] PCP - General Internal Medicine 01/21/22 Kameron Zuñiga MD Flight Radio Officer Cardiovascular Disease 08/04/21 Katya Lopez NP Cardiology 08/04/21 01/30/24 Be Pacheco NP [address] [place] [address] Nurse Practitioner Cardiology 10/17/22 01/30/24 Maycol Infante MD [address] [place] [address] Specialist Pulmonology 10/19/22 Sebastian Martinez MD [address] [place] [address] Specialist Ophthalmology 03/21/23 Eve Juan MD [address] [place] [address] [place] [address] Specialist UROGYNECOLOGY 03/21/23 Elisa Romero NP [address] [place] [address] [place] [address] Cardiology 01/31/24 Marcus Murcia DO [address] [place] [address] [place] [address] Specialist Physiatry 03/26/24 documented as of this encounter
--- OUTSIDE RECORDS SUMMARY | 2024-09-17 17:55 | XMS_ITS | Encounter Summary ---
Author Organization [facility] Address [address] [place] [address] Care Team Providers Care Shingle Weaver Name Role Phone Kameron Zuñiga MD Unavailable Katya Lopez NP Unavailable Unavailab Kathy Haley MD Primary Care Prov ider Be Pacheco NP Unavailable [phone] Maycol Infante MD Unavailable Unavailable Sebastian Martinez MD Unavailable UnavailEve Blackmon MD Unavailable Elisa Romero NP Unavailable Marcus Murcia DO Unavailable Unavailable Reason for Visit * Reason Onset Date Comments Echocardiogram 12/06/2022 Encounter Details Date Type Department Care Team Description 12/06/2022 Telephone Cardio PVCA Diag Testing [address] [facility] [address] [place], [place] [id number] Jessica Esqueda PA-C [address] [place], [place] [phone] Echocardiogram Social History Tobacco Use Types Packs/Day [...] documented as of this encounter Results * MAGNESIUM,SERUM (02/07/2023 11:38 AM EDT) MAGNESIUM (MG) 2.0 1.9 - 2.6 mg/dL 02/07/2023 8:28 PM EDT [facility] 02/07/2023 11:3 8 AM EDT 02/07/2023 11:39 AM EDT [facility] 8:28 PM EDT Release to patient->Immediate Jessica Esqueda PA-C LAB [facility] * (ABNORMAL) CHG BASIC METABOLIC PANEL CALCIUM TOTAL (02/07/2023 11:38 AM EDT) GLOMERULAR FILTRATION RATE 54(L) >60 02/07/2023 8:12 PM EDT [facility] Comment: This eGFR result was calculated using the CKD-EPI 2020 Creatinine Equation GLUCOSE 113(H) 70 - 100 mg/dL 02/07/2023 8:12 PM EDT [facility] Comment:Reference range appl icable to fasting specimens only Blood Urea Nitrogen 12 5 - 25 mg/dL 02/07/2023 8:12 PM EDT [facility] CREAT 1.06 0.5 - 1.1 mg/dL 02/07/2023 8:12 PM EDT [facility] NA 141 135 - 145 mEq/L 02/07/2023 8:12 PM EDT [facility] K 4.3 3.5 - 5.5 mmol/L 02/07/2023 8:12 PM EDT [facility] CL 105 96 - 110 mmol/L 02/07/2023 8:12 PM EDT [facility] CARBON DIOXIDE (CO2) 28 21 - 32 mmol/L 02/07/2023 8:12 PM EDT [facility] ANION GAP 8 3 - 11 02/07/2023 8:13 PM EDT [facility] CALCIUM 9.1 8.5 - 10.5 mg/dL 02/07/2023 8:13 PM EDT [facility] 02/07/2023 11:3 8 AM EDT 02/07/2023 11:39 AM EDT Narrative [facility] - 02/07/2023 8:12 PM EDT Release to patient->Immediate Jessica Esqueda PA-C LAB [facility] documented in this encounter Visit Diagnoses Diagnosis Shortness of breath- Primary Frequent stools Diarrhea Abdominal cramping Abdominal pain, unspecified site Type 2 diabetes mellitus with stage 3a chronic kidney disease, without long-term current use of insulin (HCC) Shortness of breath Coronary artery disease involving resighini coronary artery of resighini heart without angina pectoris documented in this encounter Care Teams Shingle Weaver Relationship Specialty Start Date End Date Kathy Christopher MD [address] [place] [address] PCP - General Internal Medicine 01/21/22 Kameron Zuñiga MD Asbestos Cloth Inspector Cardiovascular Disease 08/04/21 Katya Lopez NP Cardiology 08/04/21 01/30/24 Be Pacheco NP [address] [place] [address] 6[address] Nurse Practitioner Cardiology 10/17/22 01/30/24 Maycol Infante MD [address] [place] [address] Specialist Pulmonology 10/19/22 Sebastian Martinez MD [address] [place] [address] Specialist Ophthalmology 03/21/23 Eve Juan MD [address] [place] [address] [place] [address] Specialist UROGYNECOLOGY 03/21/23 Elisa Romero NP [address] [place] [address] [place] [address] Cardiology 01/31/24 Marcus Murcia DO [address] [place] [address] [facility] [place] [address] Specialist Physiatry 03/26/24 documented as of this encounter
--- OUTSIDE RECORDS SUMMARY | 2024-09-17 17:55 | XMS_ITS | Encounter Summary ---
Author Organization [facility] Address [address] [place] [address] Care Team Providers Care Wagon Drill Operator Name Role Phone Wiley Thompson MD Primary Care Provider Kameron Cornejo MD Unavailable Katya Lopez NP Unavailable Unavailab Kathy Haley MD Primary Care Prov ider Be Pacheco NP Unavailable [phone] Maycol Infante MD Unavailable Unavailable Sebastian Martinez MD Unavailable UnavailEve Blackmon MD Unavailable Elisa Romero NP Unavailable [phone] Marcus Murcia DO Unavailable Unavailable Encounter Details Date Type Department Care Team Description 03/17/2020 Operations Support Specialist Report Medical Records [address] [place] [address] Kameron Zuñiga MD [address] [place] [address] [id number] Social History Tobacco Use Types Packs/Day Years [...] on filedocumented in this encounter Care Teams Wagon Drill Operator Relationship Specialty Start Date End Date Wiley Thompson MD PCP - General Internal Medicine 06/04/14 01/20/22 Trina Rizo, Kathy Fried MD [address] [place] [address]141 PCP - General Internal Medicine 01/21/22 Kameron Zuñiga MD Insurance Actuary Cardiovascular Disease 08/04/21 Katya Lopez NP Cardiology 08/04/21 01/30/24 Be Pacheco NP [address] [place] [address] 13606 Nurse Practitioner Cardiology 10/17/22 01/30/24 Maycol Infante MD [address] [place] [address] Specialist Pulmonology 10/19/22 Sebastian Martinez MD [address] [place] [address] Specialist Ophthalmology 03/21/23 Eve Juan MD [address] [place] [address] [place] [address] Specialist UROGYNECOLOGY 03/21/23 Elisa Romero NP [address] [place] [address] [place] [address] Cardiology 01/31/24 Marcus Murcia DO [address] [place] [address] [place] [address] Specialist Physiatry 03/26/24 documented as of this encounter
--- OUTSIDE RECORDS SUMMARY | 2024-09-17 17:55 | XMS_ITS | Encounter Summary ---
Author Organization [facility] Address [address] [place] [address] Care Team Providers Care Network Intelligence Analyst Name Role Phone Wiley Thompson MD Primary Care Provider Kameron Cornejo MD Unavailable Katya Lopez PARACHUTE MARKER Unavailable Unavailab Kathy Haley MD Primary Care Prov ider Be Pacheco NP Unavailable [phone] Maycol Infante MD Unavailable Unavailable Sebastian Martinez MD Unavailable UnavailEve Blackmon MD Unavailable Elisa Romero NP Unavailable [phone] Marcus Murcia DO Unavailable Unavailable Encounter Details Date Type Department Care Team Description 01/03/2017 Lining Stitcher Report Medical Records [address] [place] [address] Ellie Brannon Social History Tobacco Use Types [...] on filedocumented in this encounter Care Teams Network Intelligence Analyst Relationship Specialty Start Date End Date Wiley Thompson MD PCP - General Internal Medicine 06/04/14 01/20/22 Kathy Christopher MD [address] [place] [address] PCP - General Internal Medicine 01/21/22 Kameron Zuñiga MD Insulation Board Back Tender Cardiovascular Disease 08/04/21 Katya Lopez, IRMA Cardiology 08/04/21 01/30/24 Be Pacheco NP [address] [place] [address] Nurse Practitioner Cardiology 10/17/22 01/30/24 Maycol Infante MD [address] [place] [address] Specialist Pulmonology 10/19/22 Sebastian Martinez MD [address] [place] [address] Specialist Ophthalmology 03/21/23 Eve Juan MD [address] [place] [address] [place] [address] Specialist UROGYNECOLOGY 03/21/23 Elisa Romero NP [address] [place] [address] [place] [address] Cardiology 01/31/24 Marcus Murcia DO [address] [place] [address] [place] [address] Specialist Physiatry 03/26/24 documented as of this encounter
--- OUTSIDE RECORDS SUMMARY | 2024-09-17 17:55 | XMS_ITS | Encounter Summary ---
Author Organization [facility] Address [address] [place] [address] Care Team Providers Care Continuous Process Tanner Rotary Drum Name Role Phone Wiley Thompson MD Primary Care Provider Kameron Cornejo MD Unavailable Katya Lopez NP Unavailable Unavailab Kathy Christopher MD Primary Care Prov ider Be Pacheco NP Unavailable [phone] Maycol Infante MD Unavailable Unavailable Sebastian Martinez MD Unavailable UnavailEve Blackmon MD Unavailable Elisa Romero NP Unavailable [phone] Marcus Murcia DO Unavailable Unavailable Encounter Details Date Type Department Care Team Description 01/09/2020 Loader Report Medical Records [address] [place] [address] Kartik An MD Social History Tobacco Use [...] on filedocumented in this encounter Care Teams Continuous Process Tanner Rotary Drum Relationship Specialty Start Date End Date Wiley Thompson MD PCP - General Internal Medicine 06/04/14 01/20/22 Kathy Christopher MD [address] [place] [address] PCP - General Internal Medicine 01/21/22 Kameron Zuñiga MD Stylist Assistant Cardiovascular Disease 08/04/21 Katya Lopez, IRMA Cardiology 08/04/21 01/30/24 Be Pacheco NP [address] [place] [address] Nurse Practitioner Cardiology 10/17/22 01/30/24 Maycol Infante MD [address] [place] [address] Specialist Pulmonology 10/19/22 Sebastian Martinez MD [address] [place] [address] Specialist Ophthalmology 03/21/23 Eve Juan MD [address] [place] [address] [place] [address] Specialist UROGYNECOLOGY 03/21/23 Elisa Romero NP [address] [place] [address] [place] [address] Cardiology 01/31/24 Marcus Murcia DO [address] [place] [address] [place] [address] Specialist Physiatry 03/26/24 documented as of this encounter
--- OUTSIDE RECORDS SUMMARY | 2024-09-17 17:55 | XMS_ITS | Encounter Summary ---
Author Organization [facility] Address [address] [place] [address] Care Team Providers Care Patient Care Specialist Name Role Phone Wiley Thompson MD Primary Care Provider Kameron Cornejo MD Unavailable Katya Lopez NP Unavailable Unavailab Kathy Christopher MD Primary Care Prov ider Be Pacheco NP Unavailable [phone] Maycol Infante MD Unavailable Unavailable Sebastian Martinez MD Unavailable UnavailEve Blackmon MD Unavailable Elisa Romero NP Unavailable [phone] Marcus Murcia DO Unavailable Unavailable Encounter Details Date Type Department Care Team Description 12/16/2015 Steerer Report Medical Records [address] [place] [address] Pallavi Henry MD Social History Tobacco Use [...] filedocumented in this encounter Care Teams Patient Care Specialist Relationship Specialty Start Date End Date Wiley Thompson MD PCP - General Internal Medicine 06/04/14 01/20/22 Kathy Christopher MD [address] [place] [address] PCP - General Internal Medicine 01/21/22 Kameron Zuñiga MD Mesh Cutter Cardiovascular Disease 08/04/21 Katya Lopez NP Cardiology 08/04/21 01/30/24 Be Pacheco NP [address] [place] [address] Nurse Practitioner Cardiology 10/17/22 01/30/24 Maycol Infante MD [address] [place] [address] Specialist Pulmonology 10/19/22 Sebastian Martinez MD [address] [place] [address] Specialist Ophthalmology 03/21/23 Eve Juan MD [address] [place] [address] [place] [address] Specialist UROGYNECOLOGY 03/21/23 Elisa Romero NP [address] [place] [address] [place] [address] Cardiology 01/31/24 Marcus Murcia DO [address] [place] [address] [place] [address] Specialist Physiatry 03/26/24 documented as of this encounter
--- OUTSIDE RECORDS SUMMARY | 2024-09-17 17:55 | XMS_ITS | Encounter Summary ---
Author Organization [facility] Address [address] [place] [address] Care Team Providers Care Atmospheric Physics Professor Name Role Phone Wiley Thompson MD Primary Care Provider Kameron Cornejo MD Unavailable Katya Lopez NP Unavailable Unavailab Kathy Haley MD Primary Care Prov ider Be Pacheco NP Unavailable [phone] Maycol Infante MD Unavailable Unavailable Sebastian Martinez MD Unavailable UnavailEve Blackmon MD Unavailable Elisa Romero NP Unavailable [phone] Marcus Murcia DO Unavailable Unavailable Encounter Details Date Type Department Care Team Description 06/18/2020 Orders Only Medical Records [address] [place] [address] Christophe Sharp MD [address] [place], [place] [id number] Social History Tobacco Use Types Packs/Day Years [...] of this encounter Progress Notes * Matt Shrap MD - 06/20/2020 8:51 AM EST Dear [...] Certified Gastroenterology and Internal Medicine Transplant Hepatology [facility] documented in this encounter Plan of Treatment Not on file documented as of this encounter Procedures Procedure Name Priority Date/Time Associated Diagnosis Comments OUTSIDE PATHOLOGY Routine 06/16/2020 documented in this encounter Results * OUTSIDE PATHOLOGY (06/16/2020) Christophe Sharp MD OUTSIDE LAB documented in this encounter Visit Diagnoses Not on filedocumented in this encounter Care Teams Atmospheric Physics Professor Relationship Specialty Start Date End Date Wiley Thompson MD PCP - General Internal Medicine 06/04/14 01/20/22 Kathy Christopher MD [address] [place] [address] PCP - General Internal Medicine 01/21/22 Kameron Zuñiga MD Mounting Inspector Cardiovascular Disease 08/04/21 Katya Lopez NP Cardiology 08/04/21 01/30/24 Be Pacheco NP [address] [place] [address] [id number] Nurse Practitioner Cardiology 10/17/22 01/30/24 Maycol Infante MD [address] [place], [place] [phone] Specialist Pulmonology 10/19/22 Sebastian Martinez MD [address] [place] [address] Specialist Ophthalmology 03/21/23 Eve Juan MD [address] [place] [address] [place] [address] Specialist UROGYNECOLOGY 03/21/23 Elisa Romero NP [address] [place] [address] [place] [address] Cardiology 01/31/24 Marcus Murcia DO [address] [place] [address] [place] [address] Specialist Physiatry 03/26/24 documented as of this encounter
--- OUTSIDE RECORDS SUMMARY | 2024-09-17 17:56 | XMS_ITS | Encounter Summary ---
Author Organization [facility] Address [address] [place] [address] Care Team Providers Care Surveyor Mine Name Role Phone Kameron Zuñiga MD Unavailable Katya Lopez NP Unavailable Unavailab Kathy Haley MD Primary Care Prov ider eB Pacheco NP Unavailable [phone] Maycol Infante MD Unavailable Unavailable Sebastian Martinez MD Unavailable UnavailEve Blackmon MD Unavailable Elisa Romero NP Unavailable [phone] Marcus Murcia DO Unavailable Unavailable Encounter Details Date Type Department Care Team Description 10/25/2022 SCAN Medical Records [address] [place] [address] Abstract, Provider Social History Tobacco Use Types [...] on filedocumented in this encounter Care Teams Surveyor Mine Relationship Specialty Start Date End Date Kathy Christopher MD [address] [place] [address] PCP - General Internal Medicine 01/21/22 Kameron Zuñiga MD Medical Device Sales Representative Cardiovascular Disease 08/04/21 Katya Lopez NP Cardiology 08/04/21 01/30/24 Be Pacheco NP [address] [place] [address] Nurse Practitioner Cardiology 10/17/22 01/30/24 Maycol Infante MD [address] [place] [address] Specialist Pulmonology 10/19/22 Sebastian Martinez MD [address] [place], [place] [phone] Specialist Ophthalmology 03/21/23 Eve Juan MD [address] [place] [address] [place] [address] Specialist UROGYNECOLOGY 03/21/23 Elisa Romero NP [address] [place] [address] [place] [address] Cardiology 01/31/24 Marcus Murcia DO [address] [place] [address] [place] [address] Specialist Physiatry 03/26/24 documented as of this encounter
--- OUTSIDE RECORDS SUMMARY | 2024-09-17 17:56 | XMS_ITS | Encounter Summary ---
Author Organization [facility] Address [address] [place] [address] Care Team Providers Care Product Evangelist Name Role Phone Kathy Perez MD Primary Care Prov ider Reason for Visit * Imaging (Routine) - Closed Specialty Diagnoses / Procedures Referred By Ruel fang Referred To Contact Cardiology Diagnoses Coronary artery disease involving [place] coronary artery of [place] heart without angina pectoris Peripheral edema SOTELO (dyspnea on exertion) Chronic heart failure with preserved ejection fraction (CMS/HCC) Procedures Transthoracic echocardiogram (TTE) complete with PRN contrast, bubble, strain, and 3D order panel TN TTE W 2D IMAGE COMPLETE W DOPPLER ECHO & COLOR FLOW DOPPLER ECHO TN ANNABELLE 2D COMPLETE W/CONTRAST OR W & WO CONTRAST WITH DOPPLER Elisa Romero NP [address] [place] [address] Phone: tel: fax: [facility] Referral ID Status Reason Start Date Expiration Date Visits Re quested Visits Authorized [id number] Closed 06/04/2024 06/04/2025 1 1 Encounter Details Date Type Department Care Team (Latest Contact Info) Description 09/12/2024 11:30 AM EDT Ancillary Procedure [facility] [address] [place] [address] Coronary artery disease involving [place] coronary artery of [place] heart without angina pectoris; Peripheral edema; SOTELO [...] Description 10/03/2024 9:50 AM EDT Office Visit [facility] [address] [phone] Kameron Zuñiga MD [address] [address] 01/28/2025 1:15 PM EDT Office Visit Adult Medicine [address] [address] Kathy Perez MD [address] [place] [address] Pending Results Name Type Priority Associated Diagnoses Date/Time Transthoracic echocardiogram (TTE) complete with PRN contrast, bubble, strain, and 3D order panel Echocardiography Routine Coronary artery disease involving [place] coronary artery of [place] heart without angina pectoris Peripheral edema SOTELO (dyspnea on exertion) Chronic heart failure with preserved ejection fraction (CMS/HCC) 09/12/2024 12:00 PM EDT documented as of this encounter Visit Diagnoses Diagnosis Coronary artery disease involving [place] coronary artery of [place] heart without angina pectoris Peripheral edema Edema SOTELO (dyspnea on exertion) Other dyspnea and respiratory abnormality Chronic heart failure with preserved ejection fraction (CMS/HCC) documented in this encounter Care Teams Product Evangelist Relationship Specialty Start Date End Date Kathy Perez MD [address] [place] [address] PCP - General Internal Medicine 07/22/24 documented as of this encounter
[2024-09-18 09:26] LABS: Bacterial Vaginosis PCR NEGATIVE (Negative); Candida Group PCR NOT DETECTED (Not Detect); Candida glab krusei PCR NOT DETECTED (Not Detect); Trichomonas vaginalis PCR NOT DETECTED (Not Detect)
== END 2024-09-17 13:36 | disposition home or self-care (01) ==
LOC: HO.LAB 13:35
PROVIDERS: PCP Internal Medicine; Visit Provider Physician Assistant
DX: N76.0 Acute vaginitis (principal); Z13.9 Encounter for screening, unspecified
CPT/HCPCS: 81003; 81515; 99212

== ENCOUNTER 2024-09-30 12:43 | Emergency (ER) | payer OTHER, SELFPAY ==
[2024-09-30 12:53] VITALS: BP 153/67; PULSE 91; RESP 16; TEMP 36.6; O2SAT 96; BMI 31.2
--- NOTE | 2024-09-30 12:53 | ED.GENADULT ---
HPI - General Adult General Chief complaint: Urogenital-Female Stated complaint: Pain on Urination Time Seen by Provider: 09/30/24 14:22 Source: patient Mode of arrival: ambulatory Limitations: no limitations History of Present Illness ED Provider: DAHIANA HERNANDEZ PA-C HPI narrative: 78-year-old female with past medical history significant for diabetes and stage III CKD presents to the ED today for evaluation of increased urinary frequency and dysuria x2 weeks. She was initially evaluated this at urgent care 2 weeks ago. She reportedly had a negative UA. She then followed up with Dr. Riddle, her creeler. She had outpatient labs, UA and renal ultrasound done. Unclear if she has received the results from the renal ultrasound. She was started on a course of ciprofloxacin by Dr. Riddle. Today is her last day of antibiotics. Reports continued and worsening symptoms despite treatment with ciprofloxacin. Admits to associated low back discomfort. Denies fever, chills, nausea or vomiting, abdominal pain, hematuria. Related Data Home Medications ?Medication ?Instructions ?Recorded ?Confirmed cetirizine 10 mg tablet 10 mg PO DAILY 03/21/20 09/04/24 nitroglycerin 0.4 mg sublingual 0.4 mg sublingual ONCE PRN Chest 03/21/20 09/04/24 tablet Pain albuterol sulfate 2.5 mg/3 mL 2.5 mg inhalation Q4H PRN wheezing 04/28/20 09/04/24 (0.083 %) solution for nebulization melatonin 10 mg tablet 10 mg PO BEDTIME PRN Sleep 08/19/21 09/04/24 aspirin 81 mg tablet,delayed 81 mg PO DAILY 09/02/21 09/04/24 release isosorbide mononitrate 30 mg 30 mg PO DAILY 09/02/21 09/04/24 tablet,extended release 24 hr Oxygen Home Use 09/16/22 09/04/24 nebulizers 09/16/22 09/04/24 metformin 500 mg tablet,extended 500 mg PO DAILY 10/30/23 09/04/24 release 24 hr metoprolol tartrate 50 mg tablet 50 mg PO BID 06/17/24 09/04/24 atorvastatin 80 mg tablet 80 mg PO DAILY 06/20/24 09/04/24 Previous Rx's ?Medication ?Instructions ?Recorded cholecalciferol (vitamin D3) 50 50 mcg PO DAILY 30 days #30 caps 04/08/20 mcg (2,000 unit) capsule fluticasone propionate 50 2 spray intranasal DAILY 30 days 08/11/22 mcg/actuation nasal #15.8 mL spray,suspension azelastine 137 mcg (0.1 %) nasal 2 spray intranasal BID 30 days #30 09/19/23 spray mL lidocaine 5 % topical patch 1 patch topical DAILY #15 ea 04/11/24 celecoxib 50 mg capsule 50 mg PO BID #30 caps 04/18/24 albuterol sulfate 90 mcg/actuation 2 puff PO Q4H PRN for wheezing #1 05/14/24 aerosol inhaler ea methocarbamol 500 mg tablet 500 mg PO TID PRN muscle spasm #60 06/13/24 tabs dexlansoprazole 60 mg 60 mg PO DAILY #90 caps 07/16/24 capsule,biphase delayed release fluticasone fur. 200 mcg-umeclid 1 inh inhalation DAILY 30 days #60 08/12/24 62.5 mcg-vilant 25 mcg ea inhalat.powder (Trelegy Ellipta) levofloxacin 500 mg tablet 500 mg PO DAILY 5 days #5 tabs 09/04/24 sennosides 8.6 mg tablet (senna) 17.2 mg (2 x 8.6 mg) PO DAILY PRN 09/11/24 constipation 90 days #180 tabs cefuroxime axetil 250 mg tablet 250 mg PO BID 7 days #14 tabs 09/30/24 Allergies Allergy/AdvReac Type Severity Reaction Status Date / Time amoxicillin [Augmentin] Allergy Mild Rash Verified 09/30/24 12:55 clavulanic acid Allergy Mild RASH Verified 09/30/24 12:55 [From Augmentin] Review of Systems Review of Systems: Yes all other systems are reviewed and are negative [facility] Past Medical History Attestation statement: The following information was validated with the patient. Source: old records reviewed and nursing notes reviewed Medical History Obesity (BMI 30.0-34.9) Chronic respiratory failure Asthma-COPD overlap syndrome Incontinence in female History of adenomatous polyp of colon Pneumonitis Bronchopneumonia Hypogammaglobulinemia Chronic rhinitis Dizziness Headache Hyperlipidemia HTN (hypertension) Diabetes COPD (chronic obstructive pulmonary disease) Surgical History S/P right coronary artery (RCA) stent placement H/O colonoscopy History of foot surgery History of toe surgery History of bunionectomy Family History Family History Mother No problems noted. Father No problems noted. Social History 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 services: Yes (grand daughter die stamping press operator) Alcohol intake: never Patient Tobacco Use Status: Former Tobacco user Tobacco use type: Cigarette Advance Directives: Yes Advance Directives on File: Yes Advance Directives Date on File: 10/03/23 Do you have a plan to hurt others: No Plan service: No Current occupational status: retired Sexual orientation: Straight/Heterosexual Gender identity: Female Physical Exam ED Vital Signs: Vital Signs - 24 hr 09/30/24 12:53 09/30/24 14:58 Temperature 98 F 98 F Pulse Rate 91 91 Respiratory Rate 16 16 Blood Pressure 153/67 H 153/67 H Pulse Oximetry 96 96 BMI result Body Mass Index 31.2 Hypertensive, vitals otherwise WNL General: Well appearing, in no acute distress. Skin: Warm, dry, intact. No rashes or lesions. Head: Normocephalic, atraumatic. EENT: Hearing is intact b/l. Conjunctiva clear. Sclera is anicteric. Moist mucous membranes.? Cardiac: Chest wall symmetric Lungs: Normal respiratory effort without accessory muscle use Abdomen: Soft, nondistended, nontender to palpation. No rebound tenderness or guarding. No CVAT bilaterally. Back: No midline spinous or paraspinal tenderness. No step off deformity. Ext: Upper and lower extremities atraumatic, without tenderness, deformity, swelling or erythema Neuro: AOx3. Normal speech. Ambulating with steady gait. Course Course Course Narrative: This is a Rapid Medical Examination (RME) performed by Shawn Hernandez PA-C in triage. Full HPI, ROS, assessment and treatment plan per primary provider in the Main ED. 09/30/24 [id number] JESSICA Coleman Hx: 78 yo female hx DM, stage 3 CKD here for eval of increased urinary frequency and dysuria x2 weeks. seen at 2 wks ago, had normal UA. saw her creeler (dr. riddle) had renal US - unclear results. admits to associated bilateral low back pain. PE/vitals: well appearing Plan: labs, UA Reevaluation(s) Reevaluation #1: CBC without leukocytosis or left shift. Normocytic anemia, H and H stable. Chemistry without acute electrolyte abnormality requiring intervention. Renal function at baseline. Urine showing trace blood, large leukocyte esterase, over 50 WBCs, trace urine bacteria. Only 3-5 squamous epithelial cells. Will treat for UTI. Ceftin sent to pharmacy for treatment. She does have an allergy to amoxicillin however has tolerated this medication before. urine culture pending. advised tylenol for discomfort. advised to follow up with pcp/ neprhologist. Patient has remained stable throughout ED visit today. Discussed worrisome signs and symptoms and when to return to the ED. All questions answered at this time. Patient is agreeable with disposition and stable for discharge. Medical Decision Making Medical Decision Making [facility] Narrative: 78-year-old female with past medical history significant for diabetes and stage III CKD presents to the ED today for evaluation of increased urinary frequency and dysuria x2 weeks. Hypertensive, afebrile. She is nontoxic-appearing and in no acute distress. On exam, abdomen is soft, nondistended, nontender to palpation without rebound or guarding. There is no CVAT bilaterally. Midline spinous tenderness. Differential diagnosis includes urinary tract infection, renal colic, nephrolithiasis, pyelonephritis. Unlikely vertebral fracture, MSK sprain or strain, cauda equina, Guillain-Littcarr, epidural abscess. Plan for basic labs, UA Differential Diagnosis Differential Diagnoses: The differential diagnosis associated with the presentation includes as above. Admission/Observation not indicated. Lab Data [facility] Lab Attestation statement: I reviewed the patient's lab results. as above. 09/30/24 13:26 09/30/24 13:26 Labs: Lab Results 09/30/24 09/30/24 Range/Units 13:26 14:08 WBC 7.6 (4.8-10.8) X10*3/uL RBC 3.81 L (4.20-5.50) X10*6/uL Hgb 11.4 L (12.0-16.0) g/dl Hct 34.5 L (37.0-47.0) % MCV 90.6 (80.0-98.0) fL MCH 29.9 (27.0-33.0) pg MCHC 33.0 (31.0-35.0) g/dl RDW 15.3 (11.0-16.0) % Plt Count 233 (160-400) X10*3/uL MPV 9.8 (9.4-12.3) fL Immature Gran % (Auto) 0.3 (0.0-0.4) % Neut % (Auto) 62.3 (45-73) % Lymph % (Auto) 25.7 (20-40) % [place] % (Auto) 10.0 (2-11) % Eos % (Auto) 1.4 (0-4) % Baso % (Auto) 0.3 (0-2) % Lymph # (Auto) 2.0 (1.2-4.9) X10*3/uL [place] # (Auto) 0.8 (0.1-1.2) X10*3/uL Eos # (Auto) 0.1 (0.0-0.4) X10*3/uL Baso # (Auto) 0.0 (0.0-0.2) X10*3/uL Abs Immat Gran (auto) 0.02 (0.00-0.03) X10*3/uL Absolute Neuts (auto) 4.8 (2.0-8.3) x10*3/uL Absolute Nucleated RBC 0.000 (0.0-0.012) X10*3/uL Nucleated RBC % (auto) 0.0 (0.0-0.2) /100WBC Sodium 144 (135-145) mmol/L Potassium 3.8 (3.3-5.1) mmol/L Chloride 108 (96-108) mmol/L Carbon Dioxide 29 (22-29) mmol/L Anion Gap 11 L (12-20) BUN 13 (9-16) mg/dL Creatinine 0.99 (0.5-1.4) mg/dL Estim Creat Clear Calc 47.9 Estimated GFR 54 Random Glucose 132 H (60-115) mg/dL Calcium 9.4 (8.4-10.2) mg/dL Total Bilirubin 0.8 (0.0-1.0) mg/dL AST 20 (5-31) U/L ALT 16 (0-31) U/L Alkaline Phosphatase 83 (39-117) U/L Total Protein 6.6 (6.5-8.0) g/dL Albumin 3.9 (3.5-5.0) g/dL Urine Color Yellow Urine Appearance Clear Urine pH 6.5 (5.0-9.0) Ur Specific [place] 1.015 (1.005-1.025) Urine Protein Trace (Neg-Trace) mg/dL Urine Glucose (UA) Negative (Negative) mg/dL Urine Ketones Negative (Negative) mg/dL Urine Blood Trace H (Negative) Urine Nitrite Negative (Negative) Ur Leukocyte Esterase Large (3+) H (Negative) Urine RBC 0-2 (0-2) /HPF Urine WBC >50 H (0-5) /HPF Ur Squamous Epith Cells 3-5 (0-2) /HPF Urine Bacteria Trace (None Seen) Hyaline Casts 0-2 (0-2) /LPF External Record Review External record reviewed: Other Prescription Management I considered prescription management with: Antibiotic (ceftin) Chronic Conditions Patient?s care impacted by: Diabetes and Other (CKD) Social Determinants Patient?s care significantly limited by Social Determinants of Health including: Other Social Determinant of Health Critical Care Time Critical Care Time Critical Care Time: No Discharge Plan Discharge Clinical Impression: Acute UTI Patient Disposition: Home, Self-Care Instructions: Urinary Tract Infection in Older Adults (ED) Additional Instructions: Your urine today is positive for infection. Ceftin is an antibiotic that has been sent to your pharmacy. Take this as prescribed and do not miss any doses. You must complete the entire course of antibiotics. If you do not, there is a risk of the infection coming back or worsening. Take Tylenol as needed for pain / discomfort. Follow up with your primary care provider as needed. Follow up with your creeler. If you develop a fever or new/ worsening symptoms call 911 or come back to the ER for further evaluation. Prescriptions: New cefuroxime axetil 250 mg tablet 250 mg PO BID 7 Days Qty: 14 0RF No Action cholecalciferol (vitamin D3) 50 mcg (2,000 unit) capsule 50 mcg PO DAILY 30 Days Qty: 30 3RF azelastine 137 mcg (0.1 %) aerosol,spray 2 spray intranasal BID 30 Days Qty: 30 6RF Rx Instructions: administer into each nostril methocarbamol 500 mg tablet 500 mg PO TID PRN (Reason: muscle spasm) Qty: 60 0RF Rx Instructions: Discontinue use of Cyclobenzaprine No driving while taking this medication. Do no take with alcohol or other TONGER Depressants dexlansoprazole 60 mg capsule,biphase delayed releas 60 mg PO DAILY Qty: 90 3RF Trelegy Ellipta 200-62.5-25 mcg blister with device 1 inh inhalation DAILY 30 Days Qty: 60 12RF lidocaine 5 % adhesive patch,medicated 1 patch topical DAILY Qty: 15 0RF Rx Instructions: leave on most painful area for up to 12 hrs atorvastatin 80 mg tablet 80 mg PO DAILY albuterol sulfate 2.5 mg /3 mL (0.083 %) solution for nebulization 2.5 mg inhalation Q4H PRN (Reason: wheezing) nitroglycerin 0.4 mg tablet, sublingual 0.4 mg sublingual ONCE PRN (Reason: Chest Pain) cetirizine 10 mg tablet 10 mg PO DAILY aspirin 81 mg tablet,delayed release (DR/EC) 81 mg PO DAILY isosorbide mononitrate 30 mg tablet extended release 24 hr 30 mg PO DAILY fluticasone propionate 50 mcg/actuation spray,suspension 2 spray intranasal DAILY 30 Days Qty: 15.8 11RF melatonin 10 mg tablet 10 mg PO BEDTIME PRN (Reason: Sleep) (DME) Oxygen Home Use Kit See Rx Instructions .Route Rx Instructions: As directed (DME) nebulizers [facility] [place] See Rx Instructions .Route Rx Instructions: As directed metoprolol tartrate 50 mg tablet 50 mg PO BID metformin 500 mg tablet extended release 24 hr 500 mg PO DAILY albuterol sulfate 90 mcg/actuation HFA aerosol inhaler 2 puff PO Q4H PRN (Reason: for wheezing) Qty: 1 11RF sennosides [senna] 8.6 mg tablet 17.2 mg PO DAILY PRN (Reason: constipation) 90 Days Qty: 180 1RF celecoxib 50 mg capsule 50 mg PO BID Qty: 30 0RF Rx Instructions: Take with food, do not take with any other nonsteroidal anti-inflammatory medications levofloxacin 500 mg tablet 500 mg PO DAILY 5 Days Qty: 5 0RF Referrals: Kathy Christopher MD [Primary Care Provider] - Interventions: ED Discharge Assessment Last Done: 09/30/24 14:58 Discharge Date/Time: 09/30/24 14:58 Print Language: Pashto
[2024-09-30 13:30] LABS: MANUAL DIFF FLAG NO
[2024-09-30 13:31] LABS: Basophils Percent Auto 0.3 % (0-2); Eosinophils Absolute Auto 0.1 X10*3/uL (0.0-0.4); Eosinophils Percent Auto 1.4 % (0-4); Hematocrit 34.5 % (37.0-47.0); Hemoglobin 11.4 g/dl (12.0-16.0); Imm Gran Abs Auto 0.02 X10*3/uL (0.00-0.03); Imm Gran Pct Auto 0.3 % (0.0-0.4); Lymphocytes Percent Auto 25.7 % (20-40); Mean Corpuscular Hemoglobin 29.9 pg (27.0-33.0); Mean Corpuscular Volume 90.6 fL (80.0-98.0); Mean Platelet Volume 9.8 fL (9.4-12.3); Monocytes Absolute Auto 0.8 X10*3/uL (0.1-1.2); Neutrophils Absolute Auto 4.8 x10*3/uL (2.0-8.3); Neutrophils Percent Auto 62.3 % (45-73); Platelet Count 233 X10*3/uL (160-400); Red Blood Count 3.81 X10*6/uL (4.20-5.50); Red Cell Distribution Width 15.3 % (11.0-16.0); White Blood Count 7.6 X10*3/uL (4.8-10.8)
[2024-09-30 13:48] LABS: Alanine Aminotransferase 16 U/L (0-31); Albumin Level 3.9 g/dL (3.5-5.0); Alkaline Phosphatase 83 U/L (39-117); Anion Gap 11 (12-20); Aspartate Amino Transferase 20 U/L (5-31); Bilirubin Total 0.8 mg/dL (0.0-1.0); Blood Urea Nitrogen 13 mg/dL (9-16); Calcium 9.4 mg/dL (8.4-10.2); Carbon Dioxide 29 mmol/L (22-29); Chloride 108 mmol/L (96-108); Creatinine Clr Calc Pharmacy 47.9; Estimated Glomerular Filt Rate 54; Glucose Random 132 mg/dL (60-115); Potassium 3.8 mmol/L (3.3-5.1); Sodium 144 mmol/L (135-145); Total Protein 6.6 g/dL (6.5-8.0)
[2024-09-30 14:16] LABS: Appearance Urine Clear; Color Urine Yellow; Glucose Urine UA Negative (Negative); Leukocyte Esterase Urine Large (3+) (Negative); Nitrite Urine Negative (Negative); PH 6.5 (5.0-9.0); Specific Gravity - Urine 1.015 (1.005-1.025); UMIC TRIGGER UACC YES; Urine Blood Trace (Negative); Urine Ketones Negative (Negative); Urine Protein Trace mg/dL (Neg-Trace)
[2024-09-30 14:19] LABS: Bacteria Urine Trace (None Seen); Hyaline Casts Urine 0-2 /LPF (0-2); RBC Urine 0-2 /HPF (0-2); UACC Culture Trigger YES; WBC Urine >50 /HPF (0-5)
[2024-09-30 14:58] VITALS: BP 153/67; PULSE 91; RESP 16; TEMP 36.6; O2SAT 96
--- OUTSIDE RECORDS SUMMARY | 2024-09-30 16:24 | XMS_ITS | Encounter Summary ---
Author Organization Formerly [facility] Address [address] [place] [address] Care Team Providers Care Chief Executive Or Managing Director Name Role Phone Wiley Thompson MD Primary Care Provider Kameron Cornejo MD Unavailable Katya Lopez NP Unavailable Unavailab Kathy Haley MD Primary Care Prov ider Be Pacheco NP Unavailable [phone] Maycol Infante MD Unavailable Unavailable Sebastian Martinez MD Unavailable UnavailEve Blackmon MD Unavailable Elisa Romero NP Unavailable [phone] Marcus Murcia DO Unavailable Unavailable Encounter Details Date Type Department Care Team Description 10/14/2021 Telephone Cardio [facility] Diag Testing [address] [place], [place] [id number] Kameron Zuñiga MD [address] [place] [address] [id number] Social History Tobacco Use Types Packs/Day Years [...] see Katya. There are other records from [facility] as well. * Telephone Encounter - Ana Valenzuela C.M.A. - 10/14/2021 12:55 PM EDT Disregard the message below, I see records were scanned in already. Thanks! * Telephone Encounter - Ana Valenzuela C.M.A. - 10/14/2021 11:24 AM EDT Dennys Shi, Could you please follow up with [facility] for this patients records? I do see her signed release scanned in the chart. She has called me 3 times and I dont see anything new in the charts from them. Thank you! documented in this encounter Plan of Treatment Not on file documented as of this encounter Visit Diagnoses Not on filedocumented in this encounter Care Teams Chief Executive Or Managing Director Relationship Specialty Start Date End Date Wiley Thompson MD PCP - General Internal Medicine 06/04/14 01/20/22 Kathy Christopher MD [address] [place] [id number] PCP - General Internal Medicine 01/21/22 Kameron Zuñiga MD Surfacer Operator Cardiovascular Disease 08/04/21 Katya Lopez NP Cardiology 08/04/21 01/30/24 Be Pacheco NP [address] [place] [id number] Nurse Practitioner Cardiology 10/17/22 01/30/24 Maycol Infante MD [address] [place] [phone] Specialist Pulmonology 10/19/22 Sebastian Martinez MD [address] [place] [address] Specialist Ophthalmology 03/21/23 Eve Juan MD [address] [place] [address] [place] [address] Specialist UROGYNECOLOGY 03/21/23 Elisa Romero NP [address] [place] [address] [place] [address] Cardiology 01/31/24 Marcus Mucria DO [address] [place] [address] [place] [address] Specialist Physiatry 03/26/24 documented as of this encounter
--- OUTSIDE RECORDS SUMMARY | 2024-09-30 16:24 | XMS_ITS | Encounter Summary ---
Author Organization [facility] Address [address] [place] [address] Care Team Providers Care Fun House Attendant Name Role Phone Wiley Thompson MD Primary Care Provider Kameron Cornejo MD Unavailable Katya Lopez NP Unavailable Unavailab Kathy Haley MD Primary Care Prov ider Be Pacheco NP Unavailable [phone] Maycol Infante MD Unavailable Unavailable Sebastian Martinez MD Unavailable UnavailEve Blackmon MD Unavailable Elisa Romero NP Unavailable [phone] Marcus Murcia DO Unavailable Unavailable Encounter Details Date Type Department Care Team Description 08/02/2021 Director Security Risk Management Report Medical Records [address] [place] [id number] Wiley Thompson MD Social History Tobacco Use [...] on filedocumented in this encounter Care Teams Fun House Attendant Relationship Specialty Start Date End Date Wiley Thompson MD PCP - General Internal Medicine 06/04/14 01/20/22 Kathy Christopher MD [address] [place] [id number] PCP - General Internal Medicine 01/21/22 Kameron Zuñiga MD Chargemaster Specialist Cardiovascular Disease 08/04/21 Katya Lopez NP Cardiology 08/04/21 01/30/24 Be Pacheco NP [address] [place] [phone] Nurse Practitioner Cardiology 10/17/22 01/30/24 Maycol Infante MD [address] [place] [address] Specialist Pulmonology 10/19/22 Sebastian Martinez MD [address] [place] [address] Specialist Ophthalmology 03/21/23 Eve Juan MD [address] [place] [address] [place] [address] Specialist UROGYNECOLOGY 03/21/23 Elisa Romero NP [address] [place] [address] [place] [address] Cardiology 01/31/24 Marcus Murcia DO [address] [place] [address] [place] [address] Specialist Physiatry 03/26/24 documented as of this encounter
--- OUTSIDE RECORDS SUMMARY | 2024-09-30 16:24 | XMS_ITS | Encounter Summary ---
Author Organization [facility] Address [address] [place] [address] Care Team Providers Care Braider Operator Name Role Phone Wiley Thompson MD Primary Care Provider Kameron Cornejo MD Unavailable Katya Lopez NP Unavailable Unavailab Kathy Haley MD Primary Care Prov ider Be Pacheco NP Unavailable [phone] Maycol Infante MD Unavailable Unavailable Sebastian Martinez MD Unavailable UnavailEve Blackmon MD Unavailable Elisa Romero NP Unavailable [phone] Marcus Murcia DO Unavailable Unavailable Encounter Details Date Type Department Care Team Description 08/19/2021 [place] Report Medical Records [address] [place] [id number] Tyson Hunter Social History Tobacco Use Types [...] on filedocumented in this encounter Care Teams Braider Operator Relationship Specialty Start Date End Date Wiley Thompson MD PCP - General Internal Medicine 06/04/14 01/20/22 Kathy Christopher MD [address] [place] [id number] PCP - General Internal Medicine 01/21/22 Kameron Zuñiga MD Pole Peeling Machine Operator Helper Cardiovascular Disease 08/04/21 Katya Lopez NP Cardiology 08/04/21 01/30/24 Be Pacheco NP [address] [place] [address] Nurse Practitioner Cardiology 10/17/22 01/30/24 Maycol Infante MD [address] [place] [phone] Specialist Pulmonology 10/19/22 Sebastian Martinez MD [address] [place] [phone] Specialist Ophthalmology 03/21/23 Eve Juan MD [address] [place] [address] [place] [address] Specialist UROGYNECOLOGY 03/21/23 Elisa Romero NP [address] [place] [address] [place] [address] Cardiology 01/31/24 Marcus Murcia DO [address] [place] [address] [place] [address] Specialist Physiatry 03/26/24 documented as of this encounter
--- OUTSIDE RECORDS SUMMARY | 2024-09-30 16:24 | XMS_ITS | Clinical Summary ---
Author Organization [facility] Address [address] [place] [address] Phone Care Team Providers Care [employer] Officer Name Role Phone Kathy Perez MD Primary [...] 90 tablet 3 5 07/30/19 26 Active valACYclovir (VALTREX) 1 gram tablet TAKE 2 TABLETS BY MOUTH 2 TIMES DAILY. (SEPARATE DOSES BY ~12 HOURS). USE FOR 1 DAY WITH EACH FLARE 12 tablet 5 Active Active Problems Problem Noted Date Diagnosed Date Osteoarthritis 04/23/2024 Class 1 obesity due to exces s calories with serious comorbidity and body mass index (BMI) of 32.0 to 32.9 in adult 04/23/2024 Mucopurulent chronic bronchitis ([facility] V24, CM S/[facility] V28) 05/24/2023 Palpitations 05/24/2023 Chronic heart failure with p reserved ejection fraction ([facility] V24, [facility] V28) 11/24/2022 Assessment & Plan (06/04/2024 4:36 PM [...] Chest pain 11/18/2022 CHF (congestive heart failure) ([facility] V24, CMS /[facility] V28) 11/18/2022 Assessment & Plan (07/30/2024 3:00 PM [...] disease, without long-term current use of insulin ([facility] V24, [facility] V28) 11/04/2019 Mammographic microcalcification 01/10/2019 Hearing decreased, bilateral 12/18/2018 COPD (chronic obstructive pu lmonary disease) ([facility] V24, [facility] V28) 12/10/2018 Assessment & Plan (07/30/2024 3:00 PM EST): Recent exacerbation, was evaluated in the emergency. Started on prednisone. Currently stable. Supplemental oxygen dependent 12/10/2018 Obstructive sleep apnea 11/21/2018 Overview (04/23/2024): [facility] Home Sleep Apnea Test: Date 11/18/2018; Wt 192#; BMI 33; HAYLEY 16, AI 1; HI 14; Unclassified apneas 0; Obstructive apneas 10; Central apneas 0; Mixed apneas 0; hypopneas 126; average oxygen saturation 88% (lowest 73% with saturations <88% for 5% or more of study) [facility] Polysomnogram treatment study. Date 01/11/2019. Wt [...] kidney disease) stage 3, GFR 30-59 ml/min ([facility] V24, [facility] V28) 05/31/2017 Assessment & Plan (07/30/2024 3:00 PM EST): GFR around 50. Stable over the last year. Encouraged to avoid nephrotoxics, good control of diabetes and hypertension were discussed with the patient. Iron deficiency anemia due to chronic blood loss 08/18/2016 IBS (irritable bowel syndrome) 03/25/2016 Recurrent HSV (herpes simplex virus) 12/11/2015 Diabetes mellitus type 2 wit h neurological manifestations ([facility] V24, [facility] V28) 08/01/2015 Overview (04/23/2024): A1C 6.5 09/28 transfer [...] x1 06/2015 Coronary artery disease invo lving tanana coronary artery of tanana heart without angina pectoris 01/21/2015 Overview (04/23/2024): [...] Gastroparesis 07/17/2012 Overview (04/23/2024): Dr. Stephenson at [address] [place] [address] GERD (gastroesophageal reflux disease) 3 Insomnia 07/17/2012 [...] Encounters Date Type Department Care Team Description 09/25/2024 Telephone Adult Medicine [address] [phone] Kathy Nino MD UTI 09/12/2024 11:30 AM EDT Ancillary Procedure [facility] [address] [facility] [address] [place] [phone] Coronary artery disease involving tanana coronary artery of tanana heart without angina pectoris; Peripheral edema; SOTELO (dyspnea on exertion); Chronic heart failure with preserved ejection fraction (CMS/HCC V24, CMS/HCC V28) 09/06/2024 Telephone Adult Medicine [address] [phone] Kathy Nino MD Referral 08/27/2024 11:33 AM EDT Anesthesia Event [facility] [address] [place] [phone] Negro Velasco MD 08/27/2024 10:04 AM EDT - 08/27/2024 11:59 PM EDT Hospital Encounter [facility] [address] [place] [address] Marcus Murcia DO Chang, Daniel J, MD Radiculopathy, cervical region Discharge Disposition: Home or Self Care 08/27/2024 9:08 AM EDT - 08/27/2024 11:59 PM EDT Hospital Encounter [facility] [address] [place] [phone] Pain Discharge Disposition: Home or Self Care 08/13/2024 Telephone [facility] [address] [facility] [address] [place] [phone] Kameron Zuñiga MD testing 07/30/2024 1:15 PM EST Office Visit Adult Medicine [address] [phone] Kathy Nino MD Diabetes mellitus type 2 with neurological manifestations ([facility] V[facility], [facility] V28) (Primary Dx); Primary hypertension; Mixed hyperlipidemia; Stage 3a chronic kidney disease ([facility] V[facility], [facility] V28); Chronic obstructive pulmonary disease, unspecified COPD type ([facility] V[facility], [facility] V28); Congestive heart failure, unspecified HF chronicity, unspecified heart failure type ([facility] V[facility], [facility] V28); Urinary incontinence, unspecified type 07/30/2024 8:20 AM EST Anesthesia Event [facility] [address] [place] [phone] Negro Velasco MD Fox, Jillian, [place] 07/30/2024 8:12 AM EST - 07/30/2024 11:59 PM EST Hospital Encounter [facility] [address] [place] [phone] Marcus Murcia DO Chang, Daniel J, MD Barnes, Tyanna R, CRNA Radiculopathy, cervical region Discharge Disposition: Home or Self Care 07/24/2024 9:30 AM EST Ancillary Procedure [facility] [address] [place] [phone] Coronary artery disease involving tanana coronary artery of tanana heart without angina pectoris; SOTELO (dyspnea on exertion) 07/22/2024 2:45 PM EST - 07/22/2024 11:59 PM EST Hospital Encounter [address] [phone] Pneumonia of both lower lobes due to infectious organism Discharge Disposition: Home or Self Care 07/18/2024 Telephone Adult Medicine [address] [phone] Amy Carlton LPN Fitting for DME (Faxed form from [place]); Appointment from Last 3 Months Immunizations Name Administration Dates Next Due Influenza trivalent, 0.5mL ( Fluad) 65yo and older 03/26/2024,02/28/2023,03/28/2022,03/22,03/13/2019,03/02/2018,03/01/2017 ,03/30/2016 Influenza, Unspecified 03/10/2022,2020,02/24/2020,04/06,05/06/2014,03/05/2013 [employer] SARS-CoV-2 COVID -19, vector-nr, [id number], preservative free [...] PROCEDURE:TUBAL LIGATION OTHER SURGICAL HISTORY 2007 PROCEDURE: [place] CORRECTION HAMMERTOE; COMMENT: FOOT SURGERY PROCEDURE: HISTORICAL FOOT SURGERY; COMMENT: 18 y/o bunionectomy UPPER GASTROINTESTINAL ENDOSCOPY 03/22/2012 PROCEDURE: [place] UPPER GI ENDOSCOPY PERFORMED; COMMENT: Normal study UPPER GASTROINTESTINAL ENDOSCOPY 11/27/2015 PROCEDURE: [place] UPPER GI ENDOSCOPY PERFORMED; COMMENT: Gastritis and polyp. Normal Esophagus and duodenum. UPPER GASTROINTESTINAL ENDOSCOPY 2012 PROCEDURE: [place] UPPER GI ENDOSCOPY PERFORMED; COMMENT: FOR GERD BLADDER SUSPENSION 05/29/2018 PROCEDURE: HISTORICAL BLADDER SUSPENSION CYSTOSCOPY 03/18/2019 PROCEDURE: HISTORICAL CYSTOSCOPY; COMMENT: Normal COLONOSCOPY 06/2005 PROCEDURE: HISTORICAL COLONOSCOPY; COMMENT: tubular adenoma COLONOSCOPY 06/2010 PROCEDURE: HISTORICAL COLONOSCOPY; COMMENT: negative COLONOSCOPY 12/16/2015 PROCEDURE: HISTORICAL COLONOSCOPY; COMMENT: tubular adenoma CARDIAC CATHETERIZATION 09/26/2014 PROCEDURE: HISTORICAL CARDIAC CATH; COMMENT: RCA stent Dr David REYNAGA UPPER GASTROINTESTINAL ENDOSCOPY 08/18/2004 PROCEDURE: [place] UPPER GI ENDOSCOPY PERFORMED FOOT SURGERY 12/2013 PROCEDURE: HISTORICAL FOOT SURGERY; COMMENT: for second toe arthroplasty SHOULDER SURGERY Left PROCEDURE: HISTORICAL SHOULDER SURGERY; COMMENT: Arthroscopy with Dr. Berg KNEE SURGERY Left PROCEDURE: HISTORICAL KNEE SURGERY; COMMENT: Arthroscopy Medical History Medical History Date Comments Hypertension DX:Hypertension COPD (chronic obstructive pu lmonary disease) ([facility] V[facility], [facility] V28) DX:COPD (chronic o bstructive pulmonary disease) ([facility]) Heart failure ([facility] V[facility], [facility] V28) DX:Heart failure ([facility]) Diabetes mellitus ([facility] V 24, [facility] V28) DX:Diabetes mellitus ([facility]) Asthma 07/17/2012 DX:Asthma HTN (hypertension) [...] mellitus type 2 wit h neurological manifestations ([facility] V[facility], [facility] V28) 08/01/2015 DX:Diabetes mellitus type 2 with neurological manifestations ([facility]); COMMENT: A1C 6.5 09/28 transfer [...] Description 10/03/2024 9:50 AM EDT Office Visit [facility] [address] [phone] Kameron Zuñiga MD [address] [address] 01/28/2025 1:15 PM EDT Office Visit Adult Medicine [address] [phone] Kathy Perez MD [address] [place] [phone] Health Maintenance Due Date Last Done Comments [...] Additional history exists Depression Screening 03/26/2025 03/26/2024 Medicare Annual Wellness Visit 03/26/2025 03/26/2024 Falls Risk Assessment 08/27/2025 08/27/2024, 024 Diabetes: Annual Urine Albumin-Creatinine Ratio (uACR) 09/23/2025 09/23/2024, 03/26/2024 Diabetes: Annual GFR (Glomerular Filtration Rate) 09/23/2025 09/23/2024, 08/26/2024, 03/26/2024, Additional history exists Hypertension/CHF/CAD Annual BMP Blood Test 09/23/2025 09/23/2024, 08/26/2024, 03/26/2024, Additional history exists Cholesterol Screening (Lipid Panel) 08/26/2029 08/26/2024, 03/26/2024, 03/26/2024 DTaP,Tdap,and Td Vaccines (3 - Td or Tdap) 01/16/2033 01/16/2023, 08/01/2012 Pneumococcal Vaccine: 50+ Years Completed 04/20/2023, 03/30/2016, 04/28/2014, Additional history exists RSV Immunization Adult Patients Completed 04/20/2023 Influenza Vaccine Completed 03/26/2024, , 03/28/2022, Additional history exists Hepatitis C Screening Completed 09/23/2024, 016 HIB Vaccines Aged Out No longer eligi [...] age to complete this topic Meningococcal B Vaccine Aged Out No l onger eligible based on patient's age to complete this topic RSV Immunization Patients Under 20 months Aged Out No longer eligible based on patient's age to complete this topic Varicella Vaccines Aged Out No longer eligible based on patient's age to complete this topic Procedures Procedure Name Priority Date/Time Associated Diagnosis Comments URINALYSIS WITH REFLEX MICROSCOPIC Routine 09/23/2024 3:26 PM EDT Stage 3b chronic kidney disease ([facility] V24, [facility] V28) Type 2 diabetes mellitus with ESRD (end-stage renal disease) ([facility] V24, [facility] V28) Renal osteodystrophy MICROALBUMIN CREATININE URINE RATIO Routine 09/23/2024 3:26 PM EDT Stage 3b chronic kidney disease ([facility] V24, [facility] V28) Type 2 diabetes mellitus with ESRD (end-stage renal disease) ([facility] V24, [facility] V28) Renal osteodystrophy PROTEIN AND CREATININE WITH RATIO, URINE Routine 09/23/2024 3:26 PM EDT Stage 3b chronic kidney disease ([facility] V24, [facility] V28) Type 2 diabetes mellitus with ESRD (end-stage renal disease) ([facility] V24, [facility] V28) Renal osteodystrophy URINALYSIS WITH REFLEX MICROSCOPIC Routine 09/23/2024 3:26 PM EDT Stage 3b chronic kidney disease ([facility] V24, [facility] V28) Type 2 diabetes mellitus with ESRD (end-stage renal disease) ([facility] V24, [facility] V28) Renal osteodystrophy PARATHYROID HORMONE INTACT Routine 09/23/2024 3:23 PM EDT Stage 3b chronic kidney disease ([facility] V24, [facility] V28) Type 2 diabetes mellitus with ESRD (end-stage renal disease) ([facility] V24, [facility] V28) Renal osteodystrophy RENAL FUNCTION PANEL Routine 09/23/2024 3:23 PM EDT Stage 3b chronic kidney disease (CMS/HCC V24, CMS/HCC V28) Type 2 diabetes mellitus with ESRD (end-stage renal disease) (CMS/HCC V24, CMS/HCC V28) Renal osteodystrophy VITAMIN D 25 HYDROXY Routine 09/23/2024 3:23 PM EDT Stage 3b chronic kidney disease (CMS/HCC V24, CMS/HCC V28) Type 2 diabetes mellitus with ESRD (end-stage renal disease) (CMS/HCC V24, CMS/HCC V28) Renal osteodystrophy MAGNESIUM Routine 09/23/2024 3:23 PM EDT Stage 3b chronic kidney disease (CMS/HCC V24, CMS/HCC V28) Type 2 diabetes mellitus with ESRD (end-stage renal disease) (CMS/HCC V24, CMS/HCC V28) Renal osteodystrophy HEPATITIS B SURFACE ANTIBODY QUANTITATIVE Routine 09/23/2024 3:23 PM EDT Stage 3b chronic kidney disease (CMS/HCC V24, CMS/HCC V28) Type 2 diabetes mellitus with ESRD (end-stage renal disease) (CMS/HCC V24, CMS/HCC V28) Renal osteodystrophy HEPATITIS B CORE ANTIBODY IGM Routine 09/23/2024 3:23 PM EDT Stage 3b chronic kidney disease (CMS/HCC V24, CMS/HCC V28) Type 2 diabetes mellitus with ESRD (end-stage renal disease) (CMS/HCC V24, CMS/HCC V28) Renal osteodystrophy C3 COMPLEMENT Routine 09/23/2024 3:23 PM EDT Stage 3b chronic kidney disease (CMS/HCC V24, CMS/HCC V28) Type 2 diabetes mellitus with ESRD (end-stage renal disease) (CMS/HCC V24, CMS/HCC V28) Renal osteodystrophy C4 COMPLEMENT Routine 09/23/2024 3:23 PM EDT Stage 3b chronic kidney disease (CMS/HCC V24, CMS/HCC V28) Type 2 diabetes mellitus with ESRD (end-stage renal disease) (CMS/HCC V24, CMS/HCC V28) Renal osteodystrophy HEPATITIS C ANTIBODY Routine 09/23/2024 3:23 PM EDT Stage 3b chronic kidney disease (CMS/HCC V24, CMS/HCC V28) Type 2 diabetes mellitus with ESRD (end-stage renal disease) (CMS/HCC V24, CMS/HCC V28) Renal osteodystrophy HEPATITIS B SURFACE ANTIGEN WITH CONFIRMATION Routine 09/23/2024 3:23 PM EDT Stage 3b chronic kidney disease (CMS/HCC V24, CMS/HCC V28) Type 2 diabetes mellitus with ESRD (end-stage renal disease) (CMS/HCC V24, CMS/HCC V28) Renal osteodystrophy [place] PROTEIN ELECTROPHORETIC FRACTIONATION & QUANTITATION SERUM Routine 09/23/2024 3:22 PM EDT Stage 3b chronic kidney disease (CMS/HCC V24, CMS/HCC V28) Type 2 diabetes mellitus with ESRD (end-stage renal disease) (CMS/HCC V24, CMS/HCC V28) Renal osteodystrophy PROTEIN, TOTAL Routine 09/23/2024 3:22 PM EDT Stage 3b chronic kidney disease (CMS/HCC V24, CMS/HCC V28) Type 2 diabetes mellitus with ESRD (end-stage renal disease) (CMS/HCC V24, CMS/HCC V28) Renal osteodystrophy PROTEIN ELECTROPHORESIS, SERUM Routine 09/23/2024 3:22 PM EDT Stage 3b chronic kidney disease (CMS/HCC V24, CMS/HCC V28) Type 2 diabetes mellitus with ESRD (end-stage renal disease) (CMS/HCC V24, CMS/HCC V28) Renal osteodystrophy KAPPA-[place]AMBDA QUANTITATIVE FREE LIGHT CHAINS Routine 09/23/2024 3:22 PM EDT Stage 3b chronic kidney disease (CMS/HCC V24, CMS/HCC V28) Type 2 diabetes mellitus with ESRD (end-stage renal disease) (CMS/HCC V24, CMS/HCC V28) Renal osteodystrophy [place] IFA WITH TITER AND PATTERN Routine 09/23/2024 3:22 PM EDT Stage 3b chronic kidney disease (CMS/HCC V24, CMS/HCC V28) Type 2 diabetes mellitus with ESRD (end-stage renal disease) (CMS/HCC V24, CMS/HCC V28) Renal osteodystrophy COMPLETE BLOOD COUNT Routine 09/23/2024 2:15 PM EDT Stage 3b chronic kidney disease (CMS/HCC V24, CMS/HCC V28) Type 2 diabetes mellitus with ESRD (end-stage renal disease) (CMS/HCC V24, CMS/HCC V28) Renal osteodystrophy TRANSTHORACIC ECHOCARDIOGRAM (TTE) COMPLETE Routine 09/12/2024 12:00 PM EDT Coronary artery disease involving tanana coronary artery of tanana heart without angina pectoris Peripheral edema SOTELO (dyspnea on exertion) Chronic heart failure with preserved ejection fraction (CMS/HCC V24, CMS/HCC V28) EXTERNAL CLINICAL LAB Routine 09/09/2024 1:14 PM EDT EXTERNAL CLINICAL LAB Routine 09/09/2024 9:[address] REPORT Routine 08/30/2024 12 :31 PM EDT POCT GLUCOSE BLOOD Routine 08/27/2024 9: 33 AM EDT LIPID PANEL WITH REFLEX TO DIRECT LDL Routine 08/26/2024 11:03 AM EDT Coronary artery disease involving tanana coronary artery of tanana heart without angina pectoris Hyperlipidemia, unspecified hyperlipidemia type BASIC METABOLIC PANEL Routine 08/26/2024 11:03 AM EDT Chronic heart failure with preserved ejection fraction (CMS/HCC V24, CMS/HCC V28) MAGNESIUM Routine 08/26/2024 11:03 AM EDT Chronic heart failure with preserved ejection fraction (CMS/HCC V24, CMS/HCC V28) HEMOGLOBIN A1C Routine 08/26/2024 11:03 AM EDT Diabetes mellitus type 2 with neurological manifestations ([facility] V24, [facility] V28) POCT GLUCOSE BLOOD Routine 07/30/2024 8: 23 AM EST NM LEXISCAN STRESS TEST W/ MYOCARDIAL PERFUSION Routine 07/24/2024 11:50 AM EST Coronary artery disease involving tanana coronary artery of tanana heart without angina pectoris SOTELO (dyspnea on exertion) XR CHEST 2 VIEWS Routine 07/22/2024 2:52 PM EST Pneumonia of both lower lobes due to infectious organism DEPRESSION SCREENING Routine 03/26/2024 FALLS RISK ASSESSMENT Routine 03/26/2024 DIABETES FOOT EXAM Routine 12/04/2023 DIABETES EYE EXAM Routine 11/28/2023 from Last 3 Months or Most Recently Relevant to Health Maintenance Results * (ABNORMAL) Urinalysis with reflex microscopic (09/23/2024 3:26 PM EDT) Specific [place] Urine 1.016 1.003 - 1.030 LAB URINALYSIS - AUTOMATED METHOD 09/23/2024 4:54 PM [facility] pH, Urine 6.0 5.0 - 8.0 pH LAB URINALYSIS - AUTOMATED METHOD 09/23/2024 4:54 PM [facility] Leukocytes, Urine Large(A) Negative LAB URINALYSIS - AUTOMATED METHOD 09/23/2024 4:54 PM [facility] Nitrite, Urine Negative Negative LAB URINALYSIS - AUTOMATED METHOD 09/23/2024 4:54 PM [facility] Protein, Urine Trace <=Trace mg/dL LAB URINALYSIS - AUTOMATED METHOD 09/23/2024 4:54 PM [facility] Glucose, Urine Negative Negative mg/dL LAB URINALYSIS - AUTOMATED METHOD 09/23/2024 4:54 PM EDT [facility] Ketones, Urine Negative Negative mg/dL LAB URINALYSIS - AUTOMATED METHOD 09/23/2024 4:54 PM EDT [facility] Urobilinogen, Urine 1.0 0.2 - 1.0 mg/dL LAB URINALYSIS - AUTOMATED METHOD 09/23/2024 4:54 PM EDT [facility] Bilirubin, Urine Negative Negative LAB URINALYSIS - AUTOMATED METHOD 09/23/2024 4:54 PM EDT [facility] Blood, Urine Negative Negative LAB URINALYSIS - AUTOMATED METHOD 09/23/2024 4:54 PM [facility] RBC, Urine 2.7 0 - 4 /HPF LAB URINALYSIS - AUTOMATED METHOD 09/23/2024 4:54 PM [facility] WBC, Urine 115.5(H) 0 - 4 /HPF LAB URINALYSIS - AUTOMATED METHOD [facility]/23[facility]24 [facility] Squamous Epithelial, Urine 15 0 - 60 /LPF LAB URINALYSIS - AUTOMATED METHOD 09/23/2024 4:54 PM T [facility] Bacteria, Urine Negative Negative /HPF LAB URINALYSIS - AUTOMATED METHOD 09/23/2024 4:54 PM T [facility] Hyaline Casts, Urine 2.8 0 - 3 /LPF LAB URINALYSIS - AUTOMATED METHOD 09/23/2024 4:54 PM T [facility] Urine Urine specimen obtained by clean catch procedure / Unknown Non-blood Collection / Unknown 09/23/2024 3:26 PM EDT 09/23/2024 3:26 PM EDT us Everton Riddle MD LAB URINE ORDERABLES Final Re sult [facility] [address] [place] [address], [place] [phone] * (ABNORMAL) Protein and creatinine with ratio, urine (09/23/2024 3:26 PM EDT) Protein, Urine 27 mg/dL LAB CHEMISTRY METHOD 09/23/2024 6:12 PM EDT [facility] Prot/Creat, Ur 0.24(H) <=0.20 mg/mg creat LAB CHEMISTRY METHOD 09/23/2024 6:12 PM EDT [facility] Creatinine, Urine 112.0 mg/dL LAB CHEMISTRY METHOD 09/23/2024 6:12 PM EDT [facility] Urine Urine specimen obtained by clean catch procedure / Unknown Non-blood Collection / Unknown 09/23/2024 3:26 PM EDT 09/23/2024 3:26 PM EDT Everton Riddle MD LAB URINE ORDERABLES Final Re sult [facility] [address] [place] [address], [place] [phone] * (ABNORMAL) Microalbumin creatinine urine ratio (09/23/2024 3:26 PM EDT) Creatinine, Urine 112.0 mg/dL LAB CHEMISTRY METHOD 09/23/2024 6:21 PM EDT [facility] Microalb, Ur 81.4(H) 0.0 - 29.0 mg/L LAB CHEMISTRY METHOD 09/23/2024 6:21 PM EDT [facility] Microalb/Crea t Ratio 73(H) <30 mg/g creat LAB CHEMISTRY METHOD 09/23/2024 6:21 PM EDT [facility] Urine Urine specimen obtained by clean catch procedure / Unknown Non-blood Collection / Unknown 09/23/2024 3:26 PM EDT 09/23/2024 3:26 PM EDT us Everton Riddle MD LAB URINE ORDERABLES Final Re sult Performing Organization Address [facility] Co de Phone Number [facility] [address] [place] [address], [place] [phone] * Hepatitis C antibody (09/23/2024 3:23 PM EDT) [facility] Hepatitis C Antibody Negative Negative LAB CHEMISTRY METHOD 09/23/2024 6:53 PM EDT [facility] Blood Venous blood specimen / Unknown Venipuncture / Unknown 09/23/2024 3:23 PM EDT 09/23/2024 3:23 PM EDT us Everton Riddle MD LAB BLOOD ORDERABLES Final Re sult Performing Organization Address [facility] Phone Number [facility] [address] [place] [address], [place] [phone] * Hepatitis B surface antigen with reflex to confirmation (09/23/2024 3:23 PM EDT) [facility] Hepatitis B Surface Ag Negative Negative LAB CHEMISTRY METHOD 09/23/2024 6:25 PM EDT [facility] Blood Venous blood specimen / Unknown Venipuncture / Unknown 09/23/2024 3:23 PM EDT 09/23/2024 3:23 PM EDT Narrative [facility] - 09/23/2024 6:25 PM EDT Over the counter supplements containing high doses of biotin may interfere with this assay. ??If interference is suspected, patients shoud be retested after refraining from biotin supplements for 72 hours. us Everton Riddle MD LAB BLOOD ORDERABLES Final Re sult Performing Organization Address [facility] Hospital/ZIP Co de Phone Number [facility] [address] [place] [address], * Hepatitis B core antibody IgM (09/23/2024 3:23 PM EDT) Pathologist [facility] Hep B Core IgM Negative Negative LAB CHEMISTRY METHOD 09/23/2024 8:32 PM EDT [facility] Blood Venous blood specimen / Unknown Venipuncture / Unknown 09/23/2024 3:23 PM EDT 09/23/2024 3:23 PM EDT [facility] - 09/23/2024 8:32 PM EDT Over the counter supplements containing high doses of biotin may interfere with this assay. ??If interference is suspected, patients shoud be retested after refraining from biotin supplements for 72 hours. Everton Riddle MD LAB BLOOD ORDERABLES Final Re sult [facility] [address] [place] [address], * Hepatitis B surface antibody quantitative (09/23/2024 3:23 PM EDT) [facility] Hepatitis B Surface Ab Negative Negative LAB CHEMISTRY METHOD 09/23/2024 6:14 PM EDT [facility] Hepatitis B Surface Ab Quantitative <3.1 mIU/mL LAB CHEMISTRY METHOD 09/23/2024 6:14 PM EDT [facility] Blood Venous blood specimen / Unknown Venipuncture / Unknown 09/23/2024 3:23 PM EDT 09/23/2024 3:23 PM EDT [facility] - 09/23/2024 6:14 PM EDT >=10 mIU/mL is considered to be consistent with immunity. Everton Riddle MD LAB BLOOD ORDERABLES Final Re sult [facility] [address] [place] [address], * Vitamin D 25 hydroxy (09/23/2024 3:23 PM EDT) [facility] Vit D, 25-Hydroxy 48.9 30.0 - 80.0 ng/mL LAB CHEMISTRY METHOD 09/23/2024 6:14 PM EDT [facility] Blood Venous blood specimen / Unknown Venipuncture / Unknown 09/23/2024 3:23 PM EDT 09/23/2024 3:23 PM EDT us Everton Riddle MD LAB BLOOD ORDERABLES Final Re sult Performing Organization Address City/[facility]/ZIP Co de Phone Number [facility] [address] [place] [address], [place] [phone] * C3 complement (09/23/2024 3:23 PM EDT) [facility] C3 Complement 176 88 - 201 mg/dL LAB CHEMISTRY METHOD 09/23/2024 5:01 PM EDT [facility] Blood Venous blood specimen / Unknown Venipuncture / Unknown 09/23/2024 3:23 PM EDT 09/23/2024 3:23 PM EDT Everton Riddle MD LAB BLOOD ORDERABLES Final Re sult Performing Organization Address City/[facility]/ZIP Co de Phone Number [facility] [address] [place] [address], [place] [phone] * (ABNORMAL) C4 complement (09/23/2024 3:23 PM EDT) [facility] C4 Complement 50(H) 16 - 47 mg/dL LAB CHEMISTRY METHOD 09/23/2024 5:01 PM EDT [facility] Blood Venous blood specimen / Unknown Venipuncture / Unknown 09/23/2024 3:23 PM EDT 09/23/2024 3:23 PM EDT us Everton Riddle MD LAB BLOOD ORDERABLES Final Re sult Performing Organization Address [facility]/ZIP Co de Phone Number [facility] [address] [place] [address], [place] [phone] * Parathyroid hormone intact (09/23/2024 3:23 PM EDT) [facility] PTH 41.7 18.5 - 88.0 pcg/mL LAB CHEMISTRY METHOD 09/23/2024 7:52 PM EDT [facility] Blood Venous blood specimen / Unknown Venipuncture / Unknown 09/23/2024 3:23 PM EDT 09/23/2024 3:23 PM EDT us Everton Riddle MD LAB BLOOD ORDERABLES Final Re sult Performing Organization Address [facility] Phone Number [facility] [address] [place] [address], [place] [phone] * (ABNORMAL) Magnesium (09/23/2024 3:23 PM EDT) Only the most recent of2 resultswithin the time period is included. [facility] Magnesium 1.6(L) 1.9 - 2.6 mg/dL LAB CHEMISTRY METHOD 09/23/2024 5:01 PM EDT [facility] Blood Venous blood specimen / Unknown Venipuncture / Unknown 09/23/2024 3:23 PM EDT 09/23/2024 3:23 PM EDT us Everton Riddle MD LAB BLOOD ORDERABLES Final Re sult Performing Organization Address [facility] Co de Phone Number [facility] [address] [place] [address], [place] [phone] * (ABNORMAL) Renal function panel (09/23/2024 3:23 PM EDT) Sodium 144 133 - 145 mmol/L LAB CHEMISTRY METHOD 09/23/2024 5:01 PM [facility] Potassium 4.0 3.5 - 5.5 mmol/L LAB CHEMISTRY METHOD 09/23/2024 5:01 PM [facility] Chloride 109 96 - 110 mmol/L LAB CHEMISTRY METHOD 09/23/2024 5:01 PM [facility] CO2 31 21 - 32 mmol/L LAB CHEMISTRY METHOD 09/23/2024 5:01 PM [facility] Anion Gap 4 3 - 11 LAB CHEMISTRY METHOD 09/23/2024 5:01 PM [facility] Glucose 119(H) 70 - 100 mg/dL LAB CHEMISTRY METHOD 09/23/2024 5:01 PM [facility] BUN 15 5 - 25 mg/dL LAB CHEMISTRY METHOD 09/23/2024 5:01 PM [facility] Creatinine 1.04 0.50 - 1.10 mg/dL LAB CHEMISTRY METHOD 09/23/2024 5:01 PM [facility] eGFR 55(L) >=60 mL/min/1. 73m2 LAB CHEMISTRY METHOD 09/23/2024 5:01 PM [facility] Comment:Calculation based on the??Chronic Kidney Disease Epidemiology Collaboration (CKD-EPI) equation refit??without adjustment for race. BUN/Creatinine Ratio 14.4 LAB CHEMISTRY METHOD 09/23/2024 5:01 PM [facility] Albumin 3.4 3.2 - 5.0 g/dL LAB CHEMISTRY METHOD 09/23/2024 5:01 PM [facility] Calcium 9.3 8.5 - 10.5 mg/dL LAB CHEMISTRY METHOD 09/23/2024 5:01 PM [facility] Phosphorus 3.9 2.5 - 4.5 mg/dL LAB CHEMISTRY METHOD 09/23/2024 5:01 PM EDT [facility] Blood Venous blood specimen / Unknown Venipuncture / Unknown 09/23/2024 3:23 PM EDT 09/23/2024 3:23 PM EDT Everton Riddle MD LAB BLOOD ORDERABLES Final Re sult Performing Organization Address City/[facility]/ZIP Co de Phone Number [facility] [address] [place] [address], [place] [phone] * PATHOLOGIST REVIEW PROTEIN ELECTROPHORESIS (09/23/2024 3:22 PM EDT) Pathologist Interpretation Tiesha Gonzalez MD 09/24/2024 11:05 AM EDT [facility] Blood Venous blood specimen / Unknown Venipuncture / Unknown 09/23/2024 3:22 PM EDT 09/23/2024 3:22 PM EDT Everton Riddle MD LAB BLOOD ORDERABLES Final Re sult Performing Organization Address City/[facility]/ZIP Co de Phone Number [facility] [address] [place] [address], [place] [phone] * Orem-lambda free light chains, quantitative (09/23/2024 3:22 PM EDT) [place] Free Light Chain 1.48 0.33 - 1.94 mg/dL 09/26/2024 12:42 PM EDT [facility] Lambda Free Light Chain 2.11 0.57 - 2.63 mg/dL 09/26/2024 12:[address] [facility] Orem/Lambda FLC Ratio 0.70 0.26 - 1.65 09/26/2024 12:42 PM EDT [facility] Comment: Test performed at [facility], [address], [place] ??[address] ? [phone] Anca Gallegos MD, PhD - [employer] Blood Venous blood specimen / Unknown Venipuncture / Unknown 09/23/2024 3:22 PM EDT 09/23/2024 3:22 PM EDT us Everton Riddle MD LAB BLOOD ORDERABLES Final Re sult [facility] [address] [place] [address] * MADISON IFA with titer and pattern (09/23/2024 3:22 PM EDT) [facility] MADISON Negative Negative 09/25/2024 2:04 PM EDT [facility] Blood Venous blood specimen / Unknown Venipuncture / Unknown 09/23/2024 3:22 PM EDT 09/23/2024 3:22 PM EDT us Everton Riddle MD LAB BLOOD ORDERABLES Final Re sult Performing Organization Address City/[facility]/ZIP Co de Phone Number [facility] [address] [place] [address], [place] [phone] * (ABNORMAL) Protein electrophoresis, serum (09/23/2024 3:22 PM EDT) [facility] Total Protein 6.4 6.0 - 8.0 g/dL LAB CHEMISTRY METHOD 5 11:05 AM T [facility] Albumin, Serum 3.4 2.9 - 4.1 g/dL LAB CHEMISTRY METHOD 5 11:05 AM EDT [facility] Alpha 1 Globulin (g/dL) 0.2 0.1 - 0.5 g/dL LAB CHEMISTRY METHOD 5 11:05 AM T [facility] Alpha 2 Globulin (g/dL) 1.2 0.7 - 1.5 g/dL LAB CHEMISTRY METHOD 5 11:05 AM [facility] Beta (g/dL) 1.0 0.7 - 1.5 g/dL LAB CHEMISTRY METHOD 11:05 AM EDT [facility] Gamma Globulin (g/dL) 0.6(L) 0.7 - 1.9 g/dL LAB CHEMISTRY METHOD 11:05 AM EDT [facility] SPEP Interpretation No M-Antonio seen. 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 LAB CHEMISTRY METHOD 5 11:05 AM EDT [facility] Blood Venous blood specimen / Unknown Venipuncture / Unknown 09/23/2024 3:22 PM EDT 09/23/2024 3:22 PM EDT Everton Riddle MD LAB BLOOD ORDERABLES Final Re sult Performing Organization Address [facility]/ZIP Co de Phone Number [facility] [address] [place] [address], [place] [phone] * Protein, total (09/23/2024 3:22 PM EDT) Total Protein 6.4 6.0 - 8.0 g/dL LAB CHEMISTRY METHOD 09/23/2024 5:07 PM EDT [facility] Blood Venous blood specimen / Unknown Venipuncture / Unknown 09/23/2024 3:22 PM EDT 09/23/2024 3:22 PM EDT Everton Riddle MD LAB BLOOD ORDERABLES Final Re sult [facility] [address] [place] [address], [place] [phone] * (ABNORMAL) Complete blood count (09/23/2024 2:15 PM EDT) WBC 9.0 4.8 - 10.8 K/mcL LAB HEMETOLOGY METHOD 09/23/2024 4:48 PM [facility] RBC 3.70(L) 3.80 - 4.80 M/mcL LAB HEMETOLOGY METHOD 09/23/2024 4:48 PM [facility] Hemoglobin 11.0(L) 11.5 - 16.0 g/dL LAB HEMETOLOGY METHOD 09/23/2024 4:48 PM [facility] Hematocrit 33.8(L) 35.0 - 47.0 % LAB HEMETOLOGY METHOD 09/23/2024 4:48 PM [facility] MCV 92.6 79.0 - 98.0 FL LAB HEMETOLOGY METHOD 09/23/2024 4:48 PM [facility] MCH 30.1 27.0 - 32.0 pcg LAB HEMETOLOGY METHOD 09/23/2024 4:48 PM [facility] MCHC 32.5 32.0 - 37.0 g/dL LAB HEMETOLOGY METHOD 09/23/2024 4:48 PM [facility] RDW 15.8(H) 11.0 - 15.0 % LAB HEMETOLOGY METHOD 09/23/2024 4:48 PM [facility] Platelets 260 130 - 400 K/mcL LAB HEMETOLOGY METHOD 09/23/2024 4:48 PM [facility] MPV 10.6 7.0 - 11.0 FL LAB HEMETOLOGY METHOD 09/23/2024 4:48 PM [facility] NRBC 0.0 <1.0 % LAB HEMETOLOGY METHOD 09/23/2024 4:48 PM [facility] NRBC Absolute 0.00 <0.10 K/mcL LAB HEMETOLOGY METHOD 09/23/2024 4:48 PM [facility] Blood Venous blood specimen / Unknown Venipuncture / Unknown 09/23/2024 2:15 PM EDT 09/23/2024 2:15 PM EDT us Everton Riddle MD LAB BLOOD ORDERABLES Final Re sult [facility] [address] [place] [address], [place] [phone] * (ABNORMAL) TRANSTHORACIC ECHOCARDIOGRAM (TTE) COMPLETE (09/12/2024 12:00 PM EDT) Left Atrium Minor [place] 4.8 cm CV PACS Left Atrium Major [place] 4.8 cm CV PACS LA Area Sys (A2C) 13 cm2 CV PACS LA Area Sys (A4C) 10 cm2 CV PACS LA Volume (BP) 22 mL CV PACS LA Size 3.5 cm CV PACS RA Area 7.6 cm2 CV PACS RA 2D Volume 12 mL CV PACS AV Mean Gradient 4 mmHg CV PACS Ao VTI 25.7 cm CV PACS AV Peak Reese 1.3 m/s CV PACS AV Peak Gradient 7 mmHg CV PACS AV Area Continuity Equation 1.5 cm2 CV PACS AV Area Peak Velocity 1.8 cm2 CV PACS Aortic Sinus Valsalva 2.8 cm CV PACS Ascending Aorta 3.0 cm CV PACS IVC Proximal 1.7 cm CV PACS IVSD 0.8 0.6 - 0.9 cm CV PACS LVIDD 4.1 3.8 - 5.2 cm CV PACS LVIDS 2.6 2.2 - 3.5 cm CV PACS LVOT Diameter 1.8 cm CV PACS LVOT Mean Reese 0.6 m/s CV PACS LVOT Mean Grad 2 mmHg CV PACS LVOT Mean Grad 2 mmHg CV PACS LVOT Peak VTI 15.4 cm CV PACS LVOT Peak Reese 1.0 m/s CV PACS LVOT Peak Gradient 4 mmHg CV PACS LVPWD 0.8 0.6 - 0.9 cm CV PACS MV E' Tissue Velocity Lateral 8 cm/s CV PACS MV E' Tissue Velocity Septal 5 cm/s CV PACS LVOT Area 2.5 cm2 CV PACS LVOT Stroke Volume 39 mL CV PACS MV Deceleration [facility] 4.5 m/s2 CV PACS E Wave Deceleration Time 155 119 - 242 ms CV PACS MV PHT 45 ms CV PACS MV Peak A Reese 1.02 m/s CV PACS MV Peak A Reese 1.02 m/s CV PACS MV Peak E Reese 0.75 m/s CV PACS MV Mean Gradient 2 mmHg CV PACS MV Mean Gradient 2 mmHg CV PACS MV VTI 18.6 cm CV PACS Mitral Valve Max Velocity 1.0 m/s CV PACS MV Peak Gradient 4 mmHg CV PACS MV Area PHT 4.9 cm2 CV PACS MV Area Continuity Equation 2.1 cm2 CV PACS PV Acceleration Time 92 ms CV PACS PV Mean Gradient 1 mmHg CV PACS PV VTI 13.5 cm CV PACS PV Peak Velocity 1.0 m/s CV PACS PV Peak Gradient 4 mmHg CV PACS RV Diastolic Basal Dimension 2.3(A) 2.5 - 4.1 cm CV PACS RV S' 8 cm/s CV PACS TAPSE 16 mm CV PACS TR Peak Velocity 3.12 m/s CV PACS TR Peak Gradient 39 mmHg CV PACS E/E' Ratio Septal 15 CV PACS E/E' Ratio Averaged 12 CV PACS Relative Wall Thickness ratio 0.39 CV PACS LVOT:AV VTI Index 0.60 CV PACS FS 37 % CV PACS LV Mass 2D 97 g CV PACS MV VTI:LVOT VTI ratio 1.2 CV PACS LVOT flow 153 mL/s CV PACS AV Velocity Ratio 0.77 CV PACS E/E' Ratio Lateral 9 CV PACS BSA 1.94 m2 CV PACS LA Volume Index (BP) 12 mL/m2 CV PACS LVIDD Index 2.18 cm/m2 CV PACS LVIDS Index 1.38 cm/m2 CV PACS LV Mass Index 2D 52 44 - 88 g/m2 CV PACS LVOT Stroke Index 21 mL/m2 CV PACS LA Dimension Index 2D 1.9 cm/m2 CV PACS RA 2D Volume Index 6(A) 15 - 27 mL/m2 CV PACS SONJA Index (VTI) 0.81 cm2/m2 CV PACS SONJA Index (Pk Reese) 0.96 cm2/m2 CV PACS Ascending Aorta Index 1.60 cm/m2 CV PACS Right Ventricular Peak Systolic Pressure 42 mmHg CV PACS Est. RA Pressure 3 mmHg CV PACS Anatomical Region Laterality Modality Ultrasound Narrative 09/18/2024 12:39 PM EDT ?Left ventricle cavity size is normal. Left ventricular systolic function is in the normal range with an ejection fraction of 65-70%. ?No regional LV wall motion abnormalities noted. ?Left ventricle wall thickness is normal. ?Right ventricle cavity is normal. Right ventricular systolic function is normal. ?Mildly elevated right ventricular systolic pressure. ?No significant valvular abnormalities. ?No significant change from December 02, 2022. Left Ventricle Left ventricle cavity size is normal. Wall thickness is normal. Systolic function is normal with an ejection fraction of 65-70%. There are no regional LV wall motion abnormalities. There is no diastolic dysfunction. Right Ventricle Right ventricle cavity appears normal. Systolic function is normal. Left Atrium Left atrium cavity size is normal. Right Atrium Right atrium cavity is normal. IVC/SVC Inferior vena cava structure is normal. RA pressures is estimated to be 3 mmHg (IVC diameter <21 mm and decreases >50% during inspiration). Mitral Valve The leaflets are mildly thickened. There is mild annular calcification. There is trace regurgitation. There is no evidence of mitral valve stenosis. Tricuspid Valve Tricuspid valve structure is normal. There is trace regurgitation. There is no evidence of tricuspid valve stenosis. The right ventricular systolic pressure is mildly elevated. Aortic Valve The aortic valve is trileaflet. There is no regurgitation or stenosis. Pulmonic Valve The pulmonic valve was not well visualized. There is no regurgitation or stenosis. Ascending Aorta The aorta appears normal in size. Pericardium Pericardium appears normal. There is no pericardial effusion. Study Details Overall the study quality was adequate. Elisa Romero NP CV ECHO PROCEDURES Fi nal Result * External clinical lab (09/09/2024 1:14 PM [...] Result [facility] [address] [place] [address], * Lipid panel with reflex to direct LDL (08/26/2024 11:03 AM EDT) [facility] Cholesterol 141 0 - 200 mg/dL [...] BLOOD ORDERABLES Final Result Performing Organization Address [facility]/ZIP Co de Phone Number [facility] [address] [place] [address], [place] [phone] * Hemoglobin A1c (08/26/2024 11:03 AM EDT) [facility] Hemoglobin A1C 6.4 <6.5 % LAB [...] ORDERABL ES Final Result Performing Organization Address [facility]/ZIP Co de Phone Number [facility] [address] [place] [address], [place] [phone] * (ABNORMAL) Basic metabolic panel (08/26/2024 11:03 AM EDT) [facility] Sodium 141 133 - 145 mmol/L LAB CHEMISTRY METHOD 08/26/2024 2:12 PM EDT [facility] Potassium 4.1 3.5 - 5.5 mmol/L LAB CHEMISTRY METHOD 08/26/2024 2:12 PM EDT [facility] Chloride 104 96 - 110 mmol/L LAB CHEMISTRY METHOD 08/26/2024 2:12 PM EDT [facility] CO2 26 21 - 32 mmol/L LAB CHEMISTRY METHOD 08/26/2024 2:12 PM EDT [facility] Anion Gap 11 3 - 11 LAB CHEMISTRY METHOD 08/26/2024 2:12 PM EDT [facility] Glucose 104(H) 70 - 100 mg/dL LAB CHEMISTRY METHOD 08/26/2024 2:12 PM EDT [facility] BUN 18 5 - 25 mg/dL LAB CHEMISTRY METHOD 08/26/2024 2:12 PM EDT [facility] Creatinine 1.32(H) 0.50 - 1.10 mg/dL LAB CHEMISTRY METHOD 08/26/2024 2:12 PM EDT [facility] eGFR 41(L) >=60 mL/min/1. 73m2 LAB CHEMISTRY METHOD 08/26/2024 2:12 PM EDT [facility] Comment:Calculation based on the??Chronic Kidney Disease Epidemiology Collaboration (CKD-EPI) equation refit??without adjustment for race. BUN/Creatinine Ratio 13.6 LAB CHEMISTRY METHOD 08/26/2024 2:12 PM EDT [facility] Calcium 9.5 8.5 - 10.5 mg/dL LAB CHEMISTRY METHOD 08/26/2024 2:12 PM T [facility] Blood Venous blood specimen / Unknown Venipuncture / Unknown 08/26/2024 11:03 AM EDT 08/26/2024 11:03 AM EDT us Elisa Romero [employer] LAB BLOOD ORDERABLES Final Result [facility] [address] [place] [address], * NM LEXISCAN STRESS TEST W/ MYOCARDIAL [...] Resting ejection fraction was 59%. Elisa Romero SKID WRAPPER CV STRESS PROCEDURES Final Result * XR [...] Signed Date: 07/22/2024 17:44 ET Workstation ID: [id number] Transcribed By: Self Edit Transcribed Date: 07/22/2024 17:42 ET Narrative 07/22/2024 5:44 PM EST HISTORY: pneumonia Dx [place] [facility]. 4 week f.u TECHNIQUE: PA and lateral radiographs of the chest COMPARISON: Chest radiograph from 06/23/2023 FINDINGS: There is a normal cardiomediastinal silhouette. ??Atherosclerosis of the thoracic aorta. ??Increased airspace opacities within the right lower lung zone. ??Mild degenerative changes of the thoracic spine. Procedure Note Moo Coyle MD - 07/22/2024 HISTORY: pneumonia Dx at [facility]. 4 week f.u TECHNIQUE: PA and lateral [...] Signed Date: 07/22/2024 17:44 ET Workstation ID: [id number] Transcribed By: Self Edit Transcribed Date: 07/22/2024 17:42 ET Result [facility] Pau LOPEZ IMG XR PROCEDURES Final Result * Falls Risk Assessment (03/26/2024) [facility] Falls Risk Assessment Abstracted Result [facility] Provider MD HEALTH MAINTENANCE Final Result * Depression Screening (03/26/2024) [facility] Depression Screening Abstracted Result [facility] Provider MD HEALTH MAINTENANCE Final Result * Diabetes Foot Exam (12/04/2023) [facility] Diabetes: Annual Foot Exam Abstracted Result [facility] Historical Provider MD HEALTH MAINTENANCE Final Result * Diabetes Eye Exam (11/28/2023) [facility] Diabetes: Annual Retina Eye Exam Abstracted Comment:External Completion of test per patient (Patient reports normal results) Result [facility] Historical Provider MD HEALTH MAINTENANCE Final Result from Last 3 Months or Most Recently Relevant to Health Maintenance Insurance [facility] [employer] MED[employer] Member Subscriber Plan / Payer (Ef fective 2012-Present) Name:Shea Ramirez Relation to Subscriber:Self Name:Shea Ramirez Payer ID:[id number] Group ID:[id number] Type:Not on file Address: [place] [address] [address] [id number] Care Teams Low Alt[employer] Officer Relationship Specialty Start Date End Date Kathy Perez MD [address] [place] [id number] PCP - General Internal Medicine 07/22/24
--- OUTSIDE RECORDS SUMMARY | 2024-09-30 16:24 | XMS_ITS | Encounter Summary ---
Author Organization [facility] Address [address] [place] [address] Care Team Providers Care Curator Name Role Phone Wiley Thompson MD Primary Care Provider Kameron Cornejo MD Unavailable Katya Lopez NP Unavailable Unavailab Kathy Haley MD Primary Care Prov ider Be Pacheco NP Unavailable [phone] Maycol Infante MD Unavailable Unavailable Sebastian Martinez MD Unavailable UnavailEve Blackmon MD Unavailable Elisa Romero NP Unavailable [phone] Marcus Murcia DO Unavailable Unavailable Encounter Details Date Type Department Care Team Description 11/02/2021 Telephone Cardio PVCA Diag Testing [address] [facility] [address] [place], [place] [id number] Kameron Zuñiga MD [address] [place] [address] [id number] Social History Tobacco Use Types Packs/Day Years [...] her know Dr. Zuñiga is rounding [place] [facility] this [place] * Telephone Encounter - Ilene [...] on filedocumented in this encounter Care Teams Curator Relationship Specialty Start Date End Date Wiley Thompson MD PCP - General Internal Medicine 06/04/14 01/20/22 aKthy Christopher MD [address] [place] [address] PCP - General Internal Medicine 01/21/22 Kameron Zuñiga MD Delivery Person Cardiovascular Disease 08/04/21 Katya Lopez NP Cardiology 08/04/21 01/30/24 Be Pacheco NP [address] [place] [id number] Nurse Practitioner Cardiology 10/17/22 01/30/24 Maycol Infante MD [address] [place], [place] [phone] Specialist Pulmonology 10/19/22 Sebastian Martinez MD [address] [place] [address] Specialist Ophthalmology 03/21/23 Eve Juan MD [address] [place] [address] [place] [address] Specialist UROGYNECOLOGY 03/21/23 Elisa Romero NP [address] [place] [address] [place] [address] Cardiology 01/31/24 Marcus Murcia DO [address] [place] [address] [place] [address] Specialist Physiatry 03/26/24 documented as of this encounter
--- OUTSIDE RECORDS SUMMARY | 2024-09-30 16:24 | XMS_ITS | Encounter Summary ---
Author Organization [facility] Address [address] [place] [address] Care Team Providers Care Automotive Glazier Name Role Phone Wiley Thompson MD Primary Care Provider Kameron Cornejo MD Unavailable Katya Lopez NP Unavailable Unavailab Kathy Haley MD Primary Care Prov ider Be Pacheco NP Unavailable [phone] Maycol Infante MD Unavailable Unavailable Sebastian Martinez MD Unavailable UnavailEve Blackmon MD Unavailable Elisa Romero NP Unavailable [phone] Marcus Murcia DO Unavailable Unavailable Encounter Details Date Type Department Care Team Description 09/28/2021 SCAN Medical Records [address] [place] [address] Abstract, Provider Social History Tobacco Use Types [...] on filedocumented in this encounter Care Teams Automotive Glazier Relationship Specialty Start Date End Date Wiley Thompson MD PCP - General Internal Medicine 06/04/14 01/20/22 Kathy Christopher MD [address] [place] [address] 8[address]09 PCP - General Internal Medicine 01/21/22 Kameron Zuñiga MD Jewel Bearing Facer Cardiovascular Disease 08/04/21 Katya Lopez NP Cardiology 08/04/21 01/30/24 Be Pacheco NP [address] [place] [address] 76378 Nurse Practitioner Cardiology 10/17/22 01/30/24 Maycol Infante MD [address] [place] [address] 09765 Specialist Pulmonology 10/19/22 Sebastian Martinez MD [address] [place] [address] 70648 Specialist Ophthalmology 03/21/23 Eve Juan MD [address] [place] [address] [place] [address] Specialist UROGYNECOLOGY 03/21/23 Elisa Romero NP [address] [place] [address] [place] [address] Cardiology 01/31/24 Marcus Murcia DO [address] [place] [address] [place] [address] Specialist Physiatry 03/26/24 documented as of this encounter
--- OUTSIDE RECORDS SUMMARY | 2024-09-30 16:24 | XMS_ITS | Clinical Summary ---
Author Organization [facility] Address [address] [place] [address] Care Team Providers Care Vest Tailor Name Role Phone Pito Thompson MD Primary Care Provider [phone] Allergies No known active allergies Medications Medication [...] Inactivated Comments 07/24/2021 9:24 PM Care Teams Vest Tailor Relationship Specialty Start Date End Date Pito Thompson MD [address] [place] [address] PCP - General 07/25/21
--- OUTSIDE RECORDS SUMMARY | 2024-09-30 16:24 | XMS_ITS | Encounter Summary ---
Author Organization [facility] Address [address] [place] [address] Care Team Providers Care Real Estate Investor Name Role Phone Wiley Thompson MD Primary Care Provider Kameron Cornejo MD Unavailable Katya Lopez NP Unavailable Unavailab Kathy Haley MD Primary Care Prov ider Be Pacheco NP Unavailable [phone] Maycol Infante MD Unavailable Unavailable Sebastian Martinez MD Unavailable UnavailEve Blackmon MD Unavailable Elisa Romero NP Unavailable [phone] Marcus Murcia DO Unavailable Unavailable Encounter Details Date Type Department Care Team Description 08/26/2021 SCAN Medical Records [address] [place] [address] Abstract, Provider Social History Tobacco Use Types [...] on filedocumented in this encounter Care Teams Real Estate Investor Relationship Specialty Start Date End Date Wiley Thompson MD PCP - General Internal Medicine 06/04/14 01/20/22 Kathy Christopher MD [address] [place] [address] 19177 PCP - General Internal Medicine 01/21/22 Kameron Zuñiga MD Experimental Mechanic Spacecraft Cardiovascular Disease 08/04/21 Katya Lopez NP Cardiology 08/04/21 01/30/24 Be Pacheco NP [address] [place] [address] 70024 Nurse Practitioner Cardiology 10/17/22 01/30/24 Maycol Infante MD [address] [place] [address] 32717 Specialist Pulmonology 10/19/22 Sebastian Martinez MD [address] [place] [address] 91496 Specialist Ophthalmology 03/21/23 Eve Juan MD [address] [place] [address] [place] [address] Specialist UROGYNECOLOGY 03/21/23 Elisa Romero NP [address] [place] [address] [place] [address] Cardiology 01/31/24 Marcus Murcia DO [address] [place] [address] [place] [address] Specialist Physiatry 03/26/24 documented as of this encounter
--- OUTSIDE RECORDS SUMMARY | 2024-09-30 16:24 | XMS_ITS | Encounter Summary ---
Author Organization [facility] Address [address] [place] [address] Care Team Providers Care Cut And Cover Line Worker Name Role Phone Wiley Thompson MD Primary Care Provider Kameron Cornejo MD Unavailable Katya Lopez NP Unavailable Unavailab Kathy Haley MD Primary Care Prov ider Be Pacheco NP Unavailable [phone] Maycol Infante MD Unavailable Unavailable Sebastian Martinez MD Unavailable UnavailEve Blackmon MD Unavailable Elisa Romero NP Unavailable [phone] Marcus Murcia DO Unavailable Unavailable Encounter Details Date Type Department Care Team Description 09/17/2021 SCAN Medical Records [address] [place] [address] Abstract, Provider Social History Tobacco Use Types [...] on filedocumented in this encounter Care Teams Cut And Cover Line Worker Relationship Specialty Start Date End Date Wiley Thompson MD PCP - General Internal Medicine 06/04/14 01/20/22 Kathy Christopher MD [address] [place] [address] 42821 PCP - General Internal Medicine 01/21/22 Kameron Zuñiga MD Dehydrogenation Operator Head Cardiovascular Disease 08/04/21 Katya Lopez NP Cardiology 08/04/21 01/30/24 Be Pacheco NP [address] [place] [address] 77462 Nurse Practitioner Cardiology 10/17/22 01/30/24 Maycol Infante MD [address] [place] [address] 43979 Specialist Pulmonology 10/19/22 Sebastian Martinez MD [address] [place] [address] 29181 Specialist Ophthalmology 03/21/23 Eve Juan MD [address] [place] [address] [place] [address] Specialist UROGYNECOLOGY 03/21/23 Elisa Romero NP [address] [place] [address] [place] [address] Cardiology 01/31/24 Marcus Murcia DO [address] [place] [address] [place] [address] Specialist Physiatry 03/26/24 documented as of this encounter
--- OUTSIDE RECORDS SUMMARY | 2024-09-30 16:24 | XMS_ITS | Encounter Summary ---
Author Organization [facility] Address [address] [place] [address] Care Team Providers Care Conditioning Coach Name Role Phone Kameron Zuñiga MD Unavailable Katya Lopez NP Unavailable Unavailab Kathy Haley MD Primary Care Prov ider Be Pacheco NP Unavailable [phone] Maycol Infante MD Unavailable Unavailable Sebastian Martinez MD Unavailable UnavailEve Blackmon MD Unavailable Elisa Romero NP Unavailable [phone] Marcus Murcia DO Unavailable Unavailable Encounter Details Date Type Department Care Team Description 08/17/2023 Orders Only Medical Records [address] [place] [address] Tyson Hunter Social History Tobacco Use Types [...] on filedocumented in this encounter Care Teams Conditioning Coach Relationship Specialty Start Date End Date Kathy Christopher MD [address] [place] [address] 36250 PCP - General Internal Medicine 01/21/22 Kameron Zuñiga MD Supervisor Histology Cardiovascular Disease 08/04/21 Katya Lopez NP Cardiology 08/04/21 01/30/24 Be Pacheco NP [address] [place] [address] 53935 Nurse Practitioner Cardiology 10/17/22 01/30/24 Maycol Infante MD [address] [place] [address] 92194 Specialist Pulmonology 10/19/22 Sebastian Martinez MD [address] [place] [address] 99486 Specialist Ophthalmology 03/21/23 Eve Juan MD [address] [place] [address] [place] [address] Specialist UROGYNECOLOGY 03/21/23 Elisa Romero NP [address] [place] [address] [place] [address] Cardiology 01/31/24 Marcus Murcia DO [address] [place] [address] [place] [address] Specialist Physiatry 03/26/24 documented as of this encounter
--- OUTSIDE RECORDS SUMMARY | 2024-09-30 16:25 | XMS_ITS | Encounter Summary ---
Author Organization [facility] Address [address] [place] [address] Care Team Providers Care Concrete Finisher Name Role Phone Kameron Zuñiga MD Unavailable Katya Lopez NP Unavailable Unavailab Kathy Haley MD Primary Care Prov ider Be Pacheco NP Unavailable [phone] Maycol Infante MD Unavailable Unavailable Sebastian Martinez MD Unavailable UnavailEve Blackmon MD Unavailable Elisa Romero NP Unavailable [phone] Marcus Murcia DO Unavailable Unavailable Encounter Details Date Type Department Care Team Description 10/20/2023 Orders Only Medical Records [address] [place] [address] [facility] Social History Tobacco Use Types Packs/Day Years [...] * OUTSIDE LAB (10/04/2023) [facility] documented in this encounter Visit Diagnoses Not on filedocumented in this encounter Care Teams Concrete Finisher Relationship Specialty Start Date End Date Kathy Christopher MD [address] [place] [address] 20758 PCP - General Internal Medicine 01/21/22 Kameron Zuñiga MD Hot Braider Cardiovascular Disease 08/04/21 Katya Lopez NP Cardiology 08/04/21 01/30/24 Be Pacheco NP [address] [place] [address] 38262 Nurse Practitioner Cardiology 10/17/22 01/30/24 Maycol Infante MD [address] [place] [address] 50238 Specialist Pulmonology 10/19/22 Sebastian Martinez MD [address] [place] [address] 27674 Specialist Ophthalmology 03/21/23 Eve Juan MD [address] [place] [address] [place] [address] Specialist UROGYNECOLOGY 03/21/23 Elisa Romero NP [address] [place] [address] [place] [address] Cardiology 01/31/24 Marcus Murcia DO [address] [place] [address] [place] [address] Specialist Physiatry 03/26/24 documented as of this encounter
--- OUTSIDE RECORDS SUMMARY | 2024-09-30 16:25 | XMS_ITS | Encounter Summary ---
Author Organization [facility] Address [address] [place] [address] Care Team Providers Care Fish Seiner Name Role Phone Wiley Thompson MD Primary Care Provider Kameron Cornejo MD Unavailable Katya Lopez NP Unavailable Unavailab Kathy Haley MD Primary Care Prov ider Be Pacheco NP Unavailable [phone] Maycol Infante MD Unavailable Unavailable Sebastian Martinez MD Unavailable UnavailEve Blackmon MD Unavailable Elisa Romero NP Unavailable [phone] Marcus Murcia DO Unavailable Unavailable Reason for Visit * Reason Comments E-prescribe Rx Request Encounter Details Date Type Department Care Team Description 06/25/2017 Refill Adult Medicine [address] [address] Leilani Colindres APRN E-prescribe Rx Request Social [...] NO Patients current insurance carrier is: Payor: [facility] MCR / Plan: O $0 [facility] [id number] / Product Type: HMO [id number] documented in this encounter Plan of Treatment Not on file documented as of this encounter Visit Diagnoses Not on filedocumented in this encounter Care Teams Fish Seiner Relationship Specialty Start Date End Date Wiley Thompson MD PCP - General Internal Medicine 06/04/14 01/20/22 Trina Rizo, Kathy Fried MD [address] [place] [address] 32628 PCP - General Internal Medicine 01/21/22 Kameron Zuñiga MD Erp Technical Lead Cardiovascular Disease 08/04/21 Katya Lopez NP Cardiology 08/04/21 01/30/24 Be Pacheco NP [address] [place] [address] 95259 Nurse Practitioner Cardiology 10/17/22 01/30/24 Maycol Infante MD [address] [place] [address] 41320 Specialist Pulmonology 10/19/22 Sebastian Martinez MD [address] [place], [place] [address] Specialist Ophthalmology 03/21/23 Eve Juan MD [address] [place] [address] [place] [address] Specialist UROGYNECOLOGY 03/21/23 Elisa Romero NP [address] [place] [address] [place] [address] Cardiology 01/31/24 Marcus Murcia DO [address] [place] [address] [place] [address] Specialist Physiatry 03/26/24 documented as of this encounter
--- OUTSIDE RECORDS SUMMARY | 2024-09-30 16:25 | XMS_ITS | Encounter Summary ---
Author Organization [facility] Address [address] [place] [address] Care Team Providers Care Temperature Inspector Name Role Phone Wiley Thompson MD Primary Care Provider Kameron Cornejo MD Unavailable Katya Lopez NP Unavailable Unavailab Kathy Haley MD Primary Care Prov ider Be Pacheco NP Unavailable [phone] Maycol Infante MD Unavailable Unavailable Sebastian Martinez MD Unavailable UnavailEve Blackmon MD Unavailable Elisa Romero NP Unavailable [phone] Marcus Murcia DO Unavailable Unavailable Reason for Visit * Reason Comments E-prescribe Rx Request Encounter Details Date Type Department Care Team Description 08/15/2017 Refill Adult Medicine [address] [address] Wiley Thompson MD E-prescribe Rx Request Social [...] NO Patients current insurance carrier is: Payor: [facility] MCR / Plan: [employer] [facility] [id number] / Product Type: Clean Te[employer] [id number] documented in this encounter Plan of Treatment Not on file documented as of this encounter Visit Diagnoses Not on filedocumented in this encounter Care Teams Temperature Inspector Relationship Specialty Start Date End Date Wiley Thompson MD PCP - General Internal Medicine 06/04/14 01/20/22 Kathy Christopher MD [address] [place] [address] 8[address]12 PCP - General Internal Medicine 01/21/22 Kameron Zuñiga MD Medical Coordinator Pesticide Use Cardiovascular Disease 08/04/21 Katya Lopez NP Cardiology 08/04/21 01/30/24 Be Pacheco NP [address] [place] [address] 01020 Nurse Practitioner Cardiology 10/17/22 01/30/24 Maycol Infante MD [address] [place] [address] 66418 Specialist Pulmonology 10/19/22 Sebastian Martinez MD [address] [place] [address] 25195 Specialist Ophthalmology 03/21/23 Eve Juan MD [address] [place] [address] [place] [address] Specialist UROGYNECOLOGY 03/21/23 Elisa Romero NP [address] [place] [address] [place] [address] Cardiology 01/31/24 Marcus Murcia DO [address] [place] [address] [place] [address] Specialist Physiatry 03/26/24 documented as of this encounter
--- OUTSIDE RECORDS SUMMARY | 2024-09-30 16:25 | XMS_ITS | Encounter Summary ---
Author Organization [facility] Address [address] [place] [address] Care Team Providers Care Powerhouse Mechanic Name Role Phone Wiley Thompson MD Primary Care Provider Kameron Cornejo MD Unavailable Katya Lopez NP Unavailable Unavailab Kathy Haley MD Primary Care Prov ider Be Pacheco NP Unavailable [phone] Maycol Infatne MD Unavailable Unavailable Sebastian Martinez MD Unavailable UnavailEve Blackmon MD Unavailable Elisa Romero NP Unavailable [phone] Marcus Murcia DO Unavailable Unavailable Encounter Details Date Type Department Care Team Description 05/05/2017 Manager Hotel Report Medical Records [address] [place] [address] 48099 Talia Mckay PA-C Social History Tobacco Use [...] on filedocumented in this encounter Care Teams Powerhouse Mechanic Relationship Specialty Start Date End Date Wiley Thompson MD PCP - General Internal Medicine 06/04/14 01/20/22 Kathy Christopher MD [address] [place] [address] 60734 PCP - General Internal Medicine 01/21/22 Kameron Zuñiga MD Custom Tailor Apprentice Cardiovascular Disease 08/04/21 Katya Lopez NP Cardiology 08/04/21 01/30/24 eB Pacheco NP [address] [place] [address] 39589 Nurse Practitioner Cardiology 10/17/22 01/30/24 Maycol Infante MD [address] [place] [address] 47202 Specialist Pulmonology 10/19/22 Sebastian Martinez MD [address] [place] [address] 34852 Specialist Ophthalmology 03/21/23 Eve Juan MD [address] [place] [address] [place] [address] Specialist UROGYNECOLOGY 03/21/23 Elisa Romero NP [address] [place] [address] [place] [address] Cardiology 01/31/24 Marcus Murcia DO [address] [place] [address] [place] [address] Specialist Physiatry 03/26/24 documented as of this encounter
--- OUTSIDE RECORDS SUMMARY | 2024-09-30 16:25 | XMS_ITS | Encounter Summary ---
Author Organization [facility] Address [address] [place] [address] Care Team Providers Care Physiotherapy Assistant Name Role Phone Bri Santacruz MD Primary Care Provider Unavailable Wiley Thompson MD Primary Care Provider Kameron Cornejo MD Unavailable Katya Lopez NP Unavailable Unavailab Kathy Haley MD Primary Care Prov ider Be Pacheco NP Unavailable [phone] Maycol Infante MD Unavailable Unavailable Sebastian Martinez MD Unavailable UnavailEve Blackmon MD Unavailable Elisa Romero NP Unavailable [phone] Marcus Murcia DO Unavailable Unavailable Encounter Details Date Type Department Care Team Description 05/15/2013 Night Triage Doc Medical Records [address] [place] [address] Abstract, Provider Social History Tobacco Use Types [...] on filedocumented in this encounter Care Teams Physiotherapy Assistant Relationship Specialty Start Date End Date Bri Santacruz MD PCP - General Internal Medicine 04/23/12 06/03/14 Wiley Thompson MD PCP - General Internal Medicine 06/04/14 01/20/22 Kathy Christopher MD [address] [place] [address] 43946 PCP - General Internal Medicine 01/21/22 Kameron Zuñiga MD Loading Dock Helper Cardiovascular Disease 08/04/21 Katya Lopez NP Cardiology 08/04/21 01/30/24 Be Pacheco NP [address] [place] [address] 94270 Nurse Practitioner Cardiology 10/17/22 01/30/24 Maycol Infante MD [address] [place] [address] 49989 Specialist Pulmonology 10/19/22 Sebastian Martinez MD [address] [place] [address] 81075 Specialist Ophthalmology 03/21/23 Eve Juan MD [address] [place] [address] [place] [address] Specialist UROGYNECOLOGY 03/21/23 Elisa Romero NP [address] [place] [address] [place] [address] Cardiology 01/31/24 Marcus Murcia DO [address] [place] [address] [place] [address] Specialist Physiatry 03/26/24 documented as of this encounter
--- OUTSIDE RECORDS SUMMARY | 2024-09-30 16:25 | XMS_ITS | Encounter Summary ---
Author Organization [facility] Address [address] [place] [address] Care Team Providers Care Bandage Maker Name Role Phone Wiley Thompson MD Primary Care Provider Kameron Cornejo MD Unavailable Katya Lopez CHEMIST ASSISTANT Unavailable Unavailab Kathy Christopher MD Primary Care Prov ider Be Pacheco NP Unavailable [phone] Maycol Infante MD Unavailable Unavailable Sebastian Martinez MD Unavailable UnavailEve Blackmon MD Unavailable Elisa Romero NP Unavailable [phone] Marcus Murcia DO Unavailable Unavailable Encounter Details Date Type Department Care Team Description 09/20/2017 Sales Planning Manager Report Medical Records [address] [place] [address] Pallavi Henry MD Social History Tobacco Use [...] on filedocumented in this encounter Care Teams Bandage Maker Relationship Specialty Start Date End Date Wiley Thompson MD PCP - General Internal Medicine 06/04/14 01/20/22 Kathy Christopher MD [address] [place] [address] PCP - General Internal Medicine 01/21/22 Kameron Zuñiga MD Tile Burner Cardiovascular Disease 08/04/21 Katya Lopez, IRMA Cardiology 08/04/21 01/30/24 Be Pacheco NP [address] [place] [address] 99636 Nurse Practitioner Cardiology 10/17/22 01/30/24 Maycol Infante MD [address] [place] [address]341 Specialist Pulmonology 10/19/22 Sebastian Martinez MD [address] [place] [address] 8[address]78 Specialist Ophthalmology 03/21/23 Eve Juan MD [address] [place] [address] [place] [address] Specialist UROGYNECOLOGY 03/21/23 Elisa Romero NP [address] [place] [address] [place] [address] Cardiology 01/31/24 Marcus Murcia DO [address] [place] [address] [place] [address] Specialist Physiatry 03/26/24 documented as of this encounter
--- OUTSIDE RECORDS SUMMARY | 2024-09-30 16:25 | XMS_ITS | Encounter Summary ---
Author Organization [facility] Address [address] [place] [address] Care Team Providers Care Compositor Apprentice Name Role Phone Wiley Thompson MD Primary Care Provider Kameron Cornejo MD Unavailable Katya Lopez NP Unavailable Unavailab Kathy Haley MD Primary Care Prov ider Be Pacheco NP Unavailable [phone] Maycol Infante MD Unavailable Unavailable Sebastian Martinez MD Unavailable UnavailEve Blackmon MD Unavailable Elisa Romero NP Unavailable [phone] Marcus Murcia DO Unavailable Unavailable Reason for Visit * Reason Onset Date Comments refill request 08/07/2019 Encounter Details Date Type Department Care Team Description 08/07/2019 Refill Adult Medicine [address] [address] Wiley Thompson MD refill request Social History [...] Telephone Encounter - Korey Garrett M.A. - 08/07/2019 4:38 PM EST Faxed to pharmacy * Telephone Encounter - Nellie Short M.A. - 08/07/2019 3:42 PM EST Lab Results Component Value Date NA 140 07/02/2019 K 4.3 07/02/2019 CO2 29 07/02/2019 CL 105 07/02/2019 BUN 9 07/02/2019 CREAT 1.03 07/02/2019 GLU 95 07/02/2019 CA 9.5 07/02/2019 GFR 52 07/02/2019 * Telephone Encounter - Ijeoma Gipson - 08/07/2019 3:28 PM EST Patient would like script to be: E-PRESCRIBED/FAXED TO PHARMACY WHEN WAS THE PATIENT'S LAST APPOINTMENT IN ADULT MEDICINE? 07/02/19 WHEN WAS THE LAST TIME THE PATIENT SAW THEIR PCP? 06/27/19 Does patient have an upcoming appointment? Yes 09/27/19 (THE MEDICATION REQUESTED IS ON THE MED [...] Patients current insurance carrier is: Payor: [facility] MCR / Plan: O $0 [facility] [id number] / Product Type: HMO [id number] documented in this encounter Plan of Treatment Not on file documented as of this encounter Visit Diagnoses Not on filedocumented in this encounter Care Teams Compositor Apprentice Relationship Specialty Start Date End Date Wiley Thompson MD PCP - General Internal Medicine 06/04/14 01/20/22 Kathy Christopher MD [address] [place] [address]52 PCP - General Internal Medicine 01/21/22 Kameron Zuñiga MD Dye Machine Operator Cardiovascular Disease 08/04/21 Katya Lopez NP Cardiology 08/04/21 01/30/24 Be Pacheco NP [address] [place] [address] 8[address]16 Nurse Practitioner Cardiology 10/17/22 01/30/24 Maycol Infante MD [address] [place] [address] 54565 Specialist Pulmonology 10/19/22 Sebastian Martinez MD [address] [place] [address]482 Specialist Ophthalmology 03/21/23 Eve Juan MD [address] [place] [address] [place] [address] Specialist UROGYNECOLOGY 03/21/23 Elisa Romero NP [address] [place] [address] [place] [address] Cardiology 01/31/24 Marcus Murcia DO [address] [place] [address] [place] [address] Specialist Physiatry 03/26/24 documented as of this encounter
--- OUTSIDE RECORDS SUMMARY | 2024-09-30 16:25 | XMS_ITS | Encounter Summary ---
Author Organization [facility] Address [address] [place] [address] Care Team Providers Care Salesperson Household Appliances Name Role Phone Wiley Thompson MD Primary Care Provider Kameron Cornejo MD Unavailable Katya Lopez NP Unavailable Unavailab Kathy Haley MD Primary Care Prov ider Be Pacheco NP Unavailable [phone] Maycol Infante MD Unavailable Unavailable Sebastian Martinez MD Unavailable UnavailEve Blackmon MD Unavailable Elisa Romero NP Unavailable [phone] Marcus Murcia DO Unavailable Unavailable Reason for Referral * Radiology Services (Routine) - Closed Specialty Diagnoses / Procedures Referred By Contac t Referred To Contact Radiology Diagnoses Recurrent sinus infections Procedures CAT SCAN OF SINUSES NO CONTRAST Leilani Colindres APRN [address] [place] [address] [address] [address] [place] [id number] Referral ID Status Reason Start Date Expiration Date V isits Requested Visits Authorized CCA APPROVED Closed 09/12/2017 11/11/2017 1 1 Reason for Visit * Reason Onset Date Comments Provider Call Back 09/12/2017 Encounter Details Date Type Department Care Team Description 09/12/2017 Telephone Adult Medicine [facility] [address] [place] [address] Leilani Colindres APRN Provider Call Back Social [...] disease. 5. Additional findings, as detailed above. [facility] CT SCANS JAZZMINE PADILLA OTHER EXTERNAL documented in this encounter Visit Diagnoses Diagnosis Recurrent sinus infections- Primary Unspecified sinusitis (chronic) Recurrent sinus infections Unspecified sinusitis (chronic) documented in this encounter Care Teams Salesperson Household Appliances Relationship Specialty Start Date End Date Wiley Thompson MD PCP - General Internal Medicine 06/04/14 01/20/22 Kathy Christopher MD [address] [place] [address] PCP - General Internal Medicine 01/21/22 Kameron Zuñiga MD Ar Manager Cardiovascular Disease 08/04/21 Katya Lopez NP Cardiology 08/04/21 01/30/24 Be Pacheco NP [address] [place] [address] 61844 Nurse Practitioner Cardiology 10/17/22 01/30/24 Maycol Infante MD [address] [place] [address] Specialist Pulmonology 10/19/22 Sebastian Martinez MD [address] [place], [place] [phone] Specialist Ophthalmology 03/21/23 Eev Juan MD [address] [place] [address] [place] [address] Specialist UROGYNECOLOGY 03/21/23 Elisa Romero NP [address] [place] [address] [place] [address] Cardiology 01/31/24 Marcus Murcia DO [address] [place] [address] [place] [address] Specialist Physiatry 03/26/24 documented as of this encounter
--- OUTSIDE RECORDS SUMMARY | 2024-09-30 16:25 | XMS_ITS | Encounter Summary ---
Author Organization [facility] Address [address] [place] [address] Care Team Providers Care Switch Cleaner Name Role Phone Wiley Thompson MD Primary Care Provider Kameron Cornejo MD Unavailable Katya Lopez NP Unavailable Unavailab Kathy Haley MD Primary Care Prov ider Be Pacheco NP Unavailable Maycol Infante MD Unavailable Unavailable Sebastian Martinez MD Unavailable UnavailEve Blackmon MD Unavailable Elisa Romero NP Unavailable [phone] Marcus Murcia DO Unavailable Unavailable Encounter Details Date Type Department Care Team Description 01/10/2019 Orders Only General Surgery - [address] [place] [address] Ivan Reddy MD [address] [place] [address] [phone] Mammographic microcalcification (Primary Dx) Social History Tobacco [...] Primary documented in this encounter Care Teams Switch Cleaner Relationship Specialty Start Date End Date Wiley Thompson MD PCP - General Internal Medicine 06/04/14 01/20/22 Kathy Christopher MD [address] [place] [address] PCP - General Internal Medicine 01/21/22 Kameron Zuñiga MD Business Banker Cardiovascular Disease 08/04/21 Katya Lopez NP Cardiology 08/04/21 01/30/24 Be Pacheco NP [address] [place] [address] 21296 Nurse Practitioner Cardiology 10/17/22 01/30/24 Maycol Infante MD [address] [place] [address] Specialist Pulmonology 10/19/22 Sebastian Martinez MD [address] [place], [place] [phone] Specialist Ophthalmology 03/21/23 Eve Juan MD [address] [place] [address] [place] [address] Specialist UROGYNECOLOGY 03/21/23 Elisa Romero NP [address] [place] [address] [place] [address] Cardiology 01/31/24 Marcus Murcia DO [address] [place] [address] [place] [address] Specialist Physiatry 03/26/24 documented as of this encounter
--- OUTSIDE RECORDS SUMMARY | 2024-09-30 16:25 | XMS_ITS | Encounter Summary ---
Author Organization [facility] Address [address] [place] [address] Care Team Providers Care Hospital Liaison Name Role Phone Wiley Thompson MD Primary Care Provider Kameron Cornejo MD Unavailable Katya Lopez NP Unavailable Unavailab Kathy Haley MD Primary Care Prov ider Be Pacheco NP Unavailable [phone] Maycol Infante MD Unavailable Unavailable Sebastian Martinez MD Unavailable UnavailEve Blackmon MD Unavailable Elisa Romero NP Unavailable [phone] Marcus Murcia DO Unavailable Unavailable Reason for Visit * Reason Onset Date Comments refill request 09/16/2019 Encounter Details Date Type Department Care Team Description 09/16/2019 Refill Adult Medicine [address] [address] Wiley Thompson MD refill request Social History [...] N/A Patients current insurance carrier is: Payor: [facility] M[facility] / Plan: [facility] $0 [facility] [id number] / Product Type: HMO [id number] documented in this encounter Plan of Treatment Not on file documented as of this encounter Visit Diagnoses Not on filedocumented in this encounter Care Teams Hospital Liaison Relationship Specialty Start Date End Date Wiley Thompson MD PCP - General Internal Medicine 06/04/14 01/20/22 Kathy Christopher MD [address] [place] [address] PCP - General Internal Medicine 01/21/22 Kameron Zuñiga MD Electrocardiograph Operator Cardiovascular Disease 08/04/21 Katya Lopez, IRMA Cardiology 08/04/21 01/30/24 Be Pacheco NP [address] [place] [address] Nurse Practitioner Cardiology 10/17/22 01/30/24 Maycol Infante MD [address] [place] [address] Specialist Pulmonology 10/19/22 Sebastian Martinez MD [address] [place] [address] Specialist Ophthalmology 03/21/23 Eve Juan MD [address] [place] [address] [place] [address] Specialist UROGYNECOLOGY 03/21/23 Elisa Romero NP [address] [place] [address] [place] [address] Cardiology 01/31/24 Marcus Murcia DO [address] [place] [address] [place] [address] Specialist Physiatry 03/26/24 documented as of this encounter
--- OUTSIDE RECORDS SUMMARY | 2024-09-30 16:25 | XMS_ITS | Encounter Summary ---
Author Organization [facility] Address [address] [place] [address] Care Team Providers Care Meter Reading Clerk Name Role Phone Wiley Thompson MD Primary Care Provider Kameron Cornejo MD Unavailable Katya Lopez NP Unavailable Unavailab Kathy Haley MD Primary Care Prov ider Be Pacheco NP Unavailable [phone] Maycol Infante MD Unavailable Unavailable Sebastian Martinez MD Unavailable UnavailEve Blackmon MD Unavailable Elisa Romero NP Unavailable [phone] Marcus Murcia DO Unavailable Unavailable Encounter Details Date Type Department Care Team Description 02/28/2015 Hospital Medical Records [address] [place] [address] Ian Markham DO Social History Tobacco Use [...] on filedocumented in this encounter Care Teams Meter Reading Clerk Relationship Specialty Start Date End Date Wiley Thompson MD PCP - General Internal Medicine 06/04/14 01/20/22 Kathy Christopher MD [address] [place] [address] PCP - General Internal Medicine 01/21/22 Kameron Zuñiga MD Maritime Officer Cardiovascular Disease 08/04/21 Katya Lopez NP Cardiology 08/04/21 01/30/24 Be Pacheco NP [address] [place] [address] Nurse Practitioner Cardiology 10/17/22 01/30/24 Maycol Infante MD [address] [place] [address] Specialist Pulmonology 10/19/22 Sebastian Martinez MD [address] [place] [address] Specialist Ophthalmology 03/21/23 Eve Juan MD [address] [place] [address] [place] [address] Specialist UROGYNECOLOGY 03/21/23 Elisa Romero NP [address] [place] [address] [place] [address] Cardiology 01/31/24 Marcus Murcia DO [address] [place] [address] [place] [address] Specialist Physiatry 03/26/24 documented as of this encounter
--- OUTSIDE RECORDS SUMMARY | 2024-09-30 16:25 | XMS_ITS | Encounter Summary ---
Author Organization [facility] Address [address] [place] [address] Care Team Providers Care Modular Home Crew Member Name Role Phone Kameron Zuñiga MD Unavailable Katya Lopez NP Unavailable Unavailab le Kathy Christopher MD Primary Care Prov ider Be Pacheco NP Unavailable [phone] Maycol Infante MD Unavailable Unavailable Sebastian Martinez MD Unavailable UnavailEve Blackmon MD Unavailable Elisa Romero NP Unavailable [phone] Marcus Murcia DO Unavailable Unavailable Encounter Details Date Type Department Care Team Description 09/19/2023 Flat Bed Knitter Report Medical Records [address] [place] [address] Pierre Oliva, PAAdelaidaC Social History Tobacco Use [...] on filedocumented in this encounter Care Teams Modular Home Crew Member Relationship Specialty Start Date End Date Kathy Christopher MD [address] [place] [address] [phone] PCP - General Internal Medicine 01/21/22 Kameron Zuñiga MD Office Technology Professor Cardiovascular Disease 08/04/21 Katya Lopez NP Cardiology 08/04/21 01/30/24 Be Pacheco NP [address] [place] [address] Nurse Practitioner Cardiology 10/17/22 01/30/24 Maycol Infante MD [address] [place] [address] Specialist Pulmonology 10/19/22 Sebastian Martinez MD [address] [place] [address] Specialist Ophthalmology 03/21/23 Eve Juan MD [address] [place] [address] [place] [address] Specialist UROGYNECOLOGY 03/21/23 Elisa Romero NP [address] [place] [address] [place] [address] Cardiology 01/31/24 Marcus Murcia DO [address] [place] [address] [place] [address] Specialist Physiatry 03/26/24 documented as of this encounter
--- OUTSIDE RECORDS SUMMARY | 2024-09-30 16:25 | XMS_ITS | Encounter Summary ---
Author Organization [facility] Address [address] [place] [address] Care Team Providers Care Sqe Name Role Phone Wiley Thompson MD Primary Care Provider Kameron Cornejo MD Unavailable Katya Lopez NP Unavailable Unavailab Kathy Haley MD Primary Care Prov ider Be Pacheco NP Unavailable [phone] Maycol Infante MD Unavailable Unavailable Sebastian Martinez MD Unavailable UnavailEve Blackmon MD Unavailable Elisa Romero NP Unavailable Marcus Murcia DO Unavailable Unavailable Encounter Details Date Type Department Care Team Description 02/24/2015 Release of Information Medical Records [address] [place] [id number] Abstract, Provider Social History Tobacco Use Types [...] 24, 2015 11:47 AM Request received from [facility] sent to [facility] TIMOTHY/Erich. documented in this encounter Plan of Treatment Not on file documented as of this encounter Visit Diagnoses Not on filedocumented in this encounter Care Teams Sqe Relationship Specialty Start Date End Date Wiley Thompson MD PCP - General Internal Medicine 06/04/14 01/20/22 Kathy Christopher MD [address] [place] [address] PCP - General Internal Medicine 01/21/22 Kameron Zuñiga MD Systems Developer Cardiovascular Disease 08/04/21 Katya Lopez NP Cardiology 08/04/21 01/30/24 Be Pacheco NP [address] [place] [address] Nurse Practitioner Cardiology 10/17/22 01/30/24 Maycol Infante MD [address] [place] [address] Specialist Pulmonology 10/19/22 Sebastian Martinez MD [address] [place] [address] Specialist Ophthalmology 03/21/23 Eve Juan MD [address] [place] [address] [place] [address] Specialist UROGYNECOLOGY 03/21/23 Elisa Romero NP [address] [place] [address] [place] [address] Cardiology 01/31/24 Marcus Murcia DO [address] [place] [address] [place] [address] Specialist Physiatry 03/26/24 documented as of this encounter
--- OUTSIDE RECORDS SUMMARY | 2024-09-30 16:25 | XMS_ITS | Encounter Summary ---
Author Organization [facility] Address [address] [place] [address] Care Team Providers Care Dye House Vat Worker Name Role Phone Bri Santacruz MD Primary Care Provider Unavailable Wiley Thompson MD Primary Care Provider Kameron Cornejo MD Unavailable Katya Lopez NP Unavailable Unavailab Kathy Haley MD Primary Care Prov ider Be Pacheco DIAMOND SIZER Unavailable [phone] Maycol Infante MD Unavailable Unavailable Sebastian Martinez MD Unavailable UnavailEve Blackmon MD Unavailable Elisa Romero NP Unavailable [phone] Marcus Murcia DO Unavailable Unavailable Encounter Details Date Type Department Care Team Description 03/15/2013 Release of Information Medical Records [address] [place] [address] Abstract, Provider Social History Tobacco Use Types [...] on filedocumented in this encounter Care Teams Dye House Vat Worker Relationship Specialty Start Date End Date Bri Santacruz MD PCP - General Internal Medicine 04/23/12 06/03/14 Wiley Thompson MD PCP - General Internal Medicine 06/04/14 01/20/22 Kathy Christopher MD [address] [place] [address]658 PCP - General Internal Medicine 01/21/22 Kameron Zuñiga MD Gas Tender Cardiovascular Disease 08/04/21 Katya Lopez, IRMA Cardiology 08/04/21 01/30/24 Be Pacheco NP [address] [place] [address] Nurse Practitioner Cardiology 10/17/22 01/30/24 Maycol Infante MD [address] [place] [address]862 Specialist Pulmonology 10/19/22 Sebastian Martinez MD [address] [place] [address] Specialist Ophthalmology 03/21/23 Eve Juan MD [address] [place] [address] [place] [address] Specialist UROGYNECOLOGY 03/21/23 Elisa Romero, IRMA [address] [place] [address] [place] [address] Cardiology 01/31/24 Marcus Murcia DO [address] [place] [address] [place] [address] Specialist Physiatry 03/26/24 documented as of this encounter
--- OUTSIDE RECORDS SUMMARY | 2024-09-30 16:25 | XMS_ITS | Encounter Summary ---
Author Organization [facility] Address [address] [place] [address] Care Team Providers Care School Age Program Teacher Name Role Phone Kathy Perez MD Primary Care Prov ider Reason for Visit * Reason Onset Date Comments UTI 09/25/2024 Encounter Details Date Type Department Care Team (Late st Contact Info) Description 09/25/2024 Telephone Adult Medicine [address] [phone] Kathy Perez MD [address] [place] [address] UTI Social History Tobacco Use Types Packs/Day Years [...] Progress Notes * Bren Tim RN - 09/25/2024 2:08 PM EDT Spoke with the daughter 2 Everton's ago she went to [facility] in [place], does not know which one They did a urine culture and never received a call back Seen with kidney specialist, Dr. Riddle on 09/20, and told her to see PCP because she needs more testing She is still having pain with urination and foul odor to the urine Scheduled eval for 09/26 at 12:15 with care team * Talia Rolonamarilis - 09/25/2024 1:29 PM EDT Patient call requires triage: Symptoms patient is presenting: patient daughter Jaimie is calling in for patient - states her motherhad gone to an urgent care for question of uti - states she never got any results and is still having issues - states she is screaming when she urinates because it is so painful How long has patient had these symptoms?: past two weeks For ALL patients calling to schedule any appointment (routine, sick visit, follow up, consult, etc.) in the outpatient setting please ask the following questions: Do you have fever of higher than 101, sore throat with difficulty swallowing or severe shortness ofbreath? no If YES to any of these above symptoms, send a message to triage and do not book. Red dot. If no, an audio or video visit should be booked. Have you had close contact with someone with Coronavirus in the last 14 days? no Have you traveled abroad? no Have you traveled recently to another state outside of [place], [place], [place], [place], [place], [place], [place]? no o If yes, did you quarantine for 14 days or have a negative covid test? no If yes to any of the above, patient is not to be scheduled in office until after 14 day quarantine or negative covid test. If pain or injury related was it due to an accident at work or from a motor vehicle accident? If yes, date of accident/Injury: No If yes, gather 3rd libertarian insurance information Third Libertarian Information: not applicable PCP: Kathy Rzio MD Payor: [facility] MEDICARE / Plan: [facility] CARE / Product Type: *No Product type* / documented in this encounter Plan of Treatment Upcoming Encounters Date Type Department Care Team (Late st Contact Info) Description 10/03/2024 9:50 AM EDT Office Visit [facility] [address] [address] Kameron Zuñiga MD [address] [facility] [address] [place] [address] 01/28/2025 1:15 PM EDT Office Visit Adult Medicine [address] [address] Kathy Perez MD [address] [place] [address] documented as of this encounter Visit Diagnoses Not on filedocumented in this encounter Care Teams School Age Program Teacher Relationship Specialty Start Date End Date Kathy Perez MD [address] [place] [address] PCP - General Internal Medicine 07/22/24 documented as of this encounter
--- OUTSIDE RECORDS SUMMARY | 2024-09-30 16:25 | XMS_ITS | Encounter Summary ---
Author Organization [facility] Address [address] [place] [address] Care Team Providers Care Ambulatory Service Representative Name Role Phone Wiley Thompson MD Primary Care Provider Kameron Cornejo MD Unavailable Katya Lopez NP Unavailable Unavailab Kathy Christopher MD Primary Care Prov ider Be Pacheco NP Unavailable [phone] Maycol Infante MD Unavailable Unavailable Sebastian Martinez MD Unavailable UnavailEve Blackmon MD Unavailable Elisa Romero NP Unavailable [phone] Marcus Murcia DO Unavailable Unavailable Encounter Details Date Type Department Care Team Description 04/10/2015 Bottle Caser Report Medical Records [address] [place] [address] Seema Canas MD Social History Tobacco Use [...] on filedocumented in this encounter Care Teams Ambulatory Service Representative Relationship Specialty Start Date End Date Wiley Thompson MD PCP - General Internal Medicine 06/04/14 01/20/22 Kathy Christopher MD [address] [place] [address] PCP - General Internal Medicine 01/21/22 Kaemron Zuñiga MD Filter Helper Cardiovascular Disease 08/04/21 Katya Lopez, IRMA Cardiology 08/04/21 01/30/24 Be Pacheco NP [address] [place] [address] Nurse Practitioner Cardiology 10/17/22 01/30/24 Maycol Infante MD [address] [place] [address] Specialist Pulmonology 10/19/22 Sebastian Martinez MD [address] [place] [address] Specialist Ophthalmology 03/21/23 Eve Juan MD [address] [place] [address] [place] [address] Specialist UROGYNECOLOGY 03/21/23 Elisa Romero NP [address] [place] [address] [place] [address] Cardiology 01/31/24 Marcus Murcia DO [address] [place] [address] [place] [address] Specialist Physiatry 03/26/24 documented as of this encounter
--- OUTSIDE RECORDS SUMMARY | 2024-09-30 16:25 | XMS_ITS | Encounter Summary ---
Author Organization [facility] Address [address] [place] [address] Care Team Providers Care Manager Title Name Role Phone Wiley Thompson MD Primary Care Provider Kameron Cornejo MD Unavailable Katya Lopez NP Unavailable Unavailab Kathy Christopher MD Primary Care Prov ider Be Pacheco NP Unavailable [phone] Maycol Infante MD Unavailable Unavailable Sebastian Martinez MD Unavailable UnavailEve Blackmon MD Unavailable Elisa Romero NP Unavailable [phone] Marcus Murcia DO Unavailable Unavailable Encounter Details Date Type Department Care Team Description 11/20/2017 Release of Information Medical Records [address] [place] [address] Abstract, Provider Social History Tobacco Use Types [...] filedocumented in this encounter Care Teams Manager Title Relationship Specialty Start Date End Date Wiley Thompson MD PCP - General Internal Medicine 06/04/14 01/20/22 Kathy Christopher MD [address] [place] [address]147 PCP - General Internal Medicine 01/21/22 Kameron Zuñiga MD Chef Instructor Cardiovascular Disease 08/04/21 Katya Lopez, IRMA Cardiology 08/04/21 01/30/24 Be Pacheco NP [address] [place] [address] 76377 Nurse Practitioner Cardiology 10/17/22 01/30/24 Maycol Infante MD [address] [place] [address] Specialist Pulmonology 10/19/22 Sebastian Martinez MD [address] [place] [address]186 Specialist Ophthalmology 03/21/23 Eve Juan MD [address] [place] [address] [place] [address] Specialist UROGYNECOLOGY 03/21/23 Elisa Romero NP [address] [place] [address] [place] [address] Cardiology 01/31/24 Marcus Murcia DO [address] [place] [address] [place] [address] Specialist Physiatry 03/26/24 documented as of this encounter
--- OUTSIDE RECORDS SUMMARY | 2024-09-30 16:25 | XMS_ITS | Encounter Summary ---
Author Organization [facility] Address [address] [place] [address] Care Team Providers Care Mechanics Handyman Name Role Phone Wiley Thompson MD Primary Care Provider Kameron Cornejo MD Unavailable Katya Lopez NP Unavailable Unavailab Kathy Haley MD Primary Care Prov ider Be Pacheco NP Unavailable [phone] Maycol Infante MD Unavailable Unavailable Sebastian Martinez MD Unavailable UnavailEve Blackmon MD Unavailable Elisa Romero NP Unavailable [phone] Marcus Murcia DO Unavailable Unavailable Reason for Visit * Reason Comments E-prescribe Rx Request Encounter Details Date Type Department Care Team Description 04/17/2019 Refill Adult Medicine [address] [address] Wiley Thompson MD E-prescribe Rx Request Social [...] N/A Patients current insurance carrier is: Pay[facility] MCR / Plan: O $0 [facility] [id number] / Product Type: HMO [id number] documented in this encounter Plan of Treatment Not on file documented as of this encounter Visit Diagnoses Diagnosis CAD (coronary artery disease), [place] coronary artery Coronary atherosclerosis of [place] coronary artery documented in this encounter Care Teams Mechanics Handyman Relationship Specialty Start Date End Date Wiley Thompson MD PCP - General Internal Medicine 06/04/14 01/20/22 Kathy Christopher MD [address] [place] [address] PCP - General Internal Medicine 01/21/22 Kameron Zuñiga MD Accounting Bookkeeper Cardiovascular Disease 08/04/21 Katya Lopez NP Cardiology 08/04/21 01/30/24 Be Pacheco NP [address] [place] [address]907 Nurse Practitioner Cardiology 10/17/22 01/30/24 Maycol Infante MD [address] [place], [place] [phone] Specialist Pulmonology 10/19/22 Sebastian Martinez MD [address] [place] [address] Specialist Ophthalmology 03/21/23 Eve Juan MD [address] [place] [address] [place] [address] Specialist UROGYNECOLOGY 03/21/23 Elisa Romero NP [address] [place] [address] [place] [address] Cardiology 01/31/24 Marcus Murcia DO [address] [place] [address] [place] [address] Specialist Physiatry 03/26/24 documented as of this encounter
--- OUTSIDE RECORDS SUMMARY | 2024-09-30 16:25 | XMS_ITS | Encounter Summary ---
Author Organization [facility] Address [address] [place] [address] Care Team Providers Care Licensed Appraiser Name Role Phone Wiley Thompson MD Primary Care Provider Kameron Cornejo MD Unavailable Katya Lopez NP Unavailable Unavailab Kathy Christopher MD Primary Care Prov ider Be Pacheco NP Unavailable [phone] Maycol Infante MD Unavailable Unavailable Sebastian Martinez MD Unavailable UnavailEve Blackmon MD Unavailable Elisa Romero NP Unavailable [phone] Marcus Murcia DO Unavailable Unavailable Encounter Details Date Type Department Care Team Description 12/19/2014 Digital Media Specialist Report Medical Records [address] [place] [address] Cheo Olivia Social History Tobacco Use Types [...] filedocumented in this encounter Care Teams Licensed Appraiser Relationship Specialty Start Date End Date Wiley Thompson MD PCP - General Internal Medicine 06/04/14 01/20/22 Kathy Christopher MD [address] [place] [address] PCP - General Internal Medicine 01/21/22 Kameron Zuñiga MD Manager Intern Cardiovascular Disease 08/04/21 Katya Lopez NP Cardiology 08/04/21 01/30/24 Be Pacheco NP [address] [place] [address] 67[address] Nurse Practitioner Cardiology 10/17/22 01/30/24 Maycol Infante MD [address] [place] [address] Specialist Pulmonology 10/19/22 Sebastian Martinez MD [address] [place], [place] [phone] Specialist Ophthalmology 03/21/23 Eve Juan MD [address] [place] [address] [place] [address] Specialist UROGYNECOLOGY 03/21/23 Elisa Romero NP [address] [place] [address] [place] [address] Cardiology 01/31/24 Marcus Murcia DO [address] [place] [address] [place] [address] Specialist Physiatry 03/26/24 documented as of this encounter
--- OUTSIDE RECORDS SUMMARY | 2024-09-30 16:25 | XMS_ITS | Encounter Summary ---
Author Organization [facility] Address [address] [place] [address] Care Team Providers Care Acquisitions Analyst Name Role Phone Kameron Zuñiga MD Unavailable Katya Lopez NP Unavailable Unavailab Kathy Haley MD Primary Care Prov ider Be Pacheco NP Unavailable [phone] Maycol Infante MD Unavailable Unavailable Sebastian Martinez MD Unavailable UnavailEve Blackmon MD Unavailable Elisa Romero NP Unavailable [phone] Mracus Murcia DO Unavailable Unavailable Reason for Visit * Reason Onset Date Comments hospital follow up 10/05/2023 Encounter Details Date Type Department Care Team Description 10/05/2023 Telephone Adult Medicine [address] [phone] Kathy Christopher MD [address] [place] [address] [phone] hospital follow up Social History Tobacco Use [...] on filedocumented in this encounter Care Teams Acquisitions Analyst Relationship Specialty Start Date End Date Kathy Christopher MD [address] [place] [address] PCP - General Internal Medicine 01/21/22 Kameron Zuñiga MD Wax Specialist Cardiovascular Disease 08/04/21 Katya Lopez NP Cardiology 08/04/21 01/30/24 Be Pacheco NP [address] [place] [address] Nurse Practitioner Cardiology 10/17/22 01/30/24 Maycol Infante MD [address] [place] [address] Specialist Pulmonology 10/19/22 Sebastian Martinez MD [address] [place], [place] [address] Specialist Ophthalmology 03/21/23 Eve Juan MD [address] [place] [address] [place] [address] Specialist UROGYNECOLOGY 03/21/23 Elisa Romero NP [address] [place] [address] [place] [address] Cardiology 01/31/24 Marcus Murcia DO [address] [place] [address] [place] [address] Specialist Physiatry 03/26/24 documented as of this encounter
--- OUTSIDE RECORDS SUMMARY | 2024-09-30 16:25 | XMS_ITS | Encounter Summary ---
Author Organization [facility] Address [address] [place] [address] Care Team Providers Care Mainframe Systems Administrator Name Role Phone Kameron Zuñiga MD Unavailable Kayta Lopez NP Unavailable Unavailab le Kathy Christopher MD Primary Care Prov ider Be Pacheco NP Unavailable [phone] Maycol Infante MD Unavailable Unavailable Sebastian Martinez MD Unavailable UnavailEve Blackmon MD Unavailable Elisa Romero NP Unavailable [phone] Marcus Murcia DO Unavailable Unavailable Encounter Details Date Type Department Care Team Description 09/26/2023 Gas Prover Report Medical Records [address] [place] [address] Maycol Infante MD Social History Tobacco Use [...] on filedocumented in this encounter Care Teams Mainframe Systems Administrator Relationship Specialty Start Date End Date Kathy Christopher MD [address] [place], [place] [phone] PCP - General Internal Medicine 01/21/22 Kameron Zuñiga MD Conference Concierge Cardiovascular Disease 08/04/21 Katya Lopez NP Cardiology 08/04/21 01/30/24 Be Pacheco NP [address] [place] [address] Nurse Practitioner Cardiology 10/17/22 01/30/24 Maycol Infante MD [address] [place] [address] Specialist Pulmonology 10/19/22 Sebastian Martinez MD [address] [place] [address] Specialist Ophthalmology 03/21/23 Eve Juan MD [address] [place] [address] [place] [address] Specialist UROGYNECOLOGY 03/21/23 Elisa Romero NP [address] [place] [address] [place] [address] Cardiology 01/31/24 Marcus Murcia DO [address] [place] [address] [place] [address] Specialist Physiatry 03/26/24 documented as of this encounter
--- OUTSIDE RECORDS SUMMARY | 2024-09-30 16:25 | XMS_ITS | Encounter Summary ---
Author Organization [facility] Address [address] [place] [address] Care Team Providers Care High School Science Tutor Name Role Phone Wiley Thompson MD Primary Care Provider Kameron Cornejo MD Unavailable Katya Lopez STUDENT SERVICES REP Unavailable Unavailab Kathy Christopher MD Primary Care Prov ider Be Pacheco NP Unavailable [phone] Maycol Infante MD Unavailable Unavailable Sebastian Martinez MD Unavailable UnavailEve Blackmon MD Unavailable Elisa Romero NP Unavailable [phone] Marcus Murcia DO Unavailable Unavailable Encounter Details Date Type Department Care Team Description 08/30/2019 International Organizer Report Medical Records [address] [place] [address] Maycol Infante MD Social History Tobacco Use [...] on filedocumented in this encounter Care Teams High School Science Tutor Relationship Specialty Start Date End Date Wiley Thompson MD PCP - General Internal Medicine 06/04/14 01/20/22 Kathy Christopher MD [address] [place] [address] PCP - General Internal Medicine 01/21/22 Kameron Zuñiga MD Grit Blaster Cardiovascular Disease 08/04/21 Katya Lopez, IRMA Cardiology 08/04/21 01/30/24 Be Pacheco NP [address] [place] [address] Nurse Practitioner Cardiology 10/17/22 01/30/24 Maycol Infante MD [address] [place] [address] Specialist Pulmonology 10/19/22 Sebastian Martinez MD [address] [place] [address] Specialist Ophthalmology 03/21/23 Eve Juan MD [address] [place] [address] [place] [address] Specialist UROGYNECOLOGY 03/21/23 Elisa Romero NP [address] [place] [address] [place] [address] Cardiology 01/31/24 Marcus Murcia DO [address] [place] [address] [place] [address] Specialist Physiatry 03/26/24 documented as of this encounter
--- OUTSIDE RECORDS SUMMARY | 2024-09-30 16:25 | XMS_ITS | Encounter Summary ---
Author Organization [facility] Address [address] [place] [address] Care Team Providers Care Mortgage Sales Manager Name Role Phone Wiley Thompson MD Primary Care Provider Kameron Cornejo MD Unavailable Katya Lopez ENVIRONMENTAL EPIDEMIOLOGIST Unavailable Unavailab Kathy Christopher MD Primary Care Prov ider Be Pacheco NP Unavailable [phone] Maycol Infante MD Unavailable Unavailable Sebastian Martinez MD Unavailable UnavailEve Blackmon MD Unavailable Elsia Romero NP Unavailable [phone] Marcus Murcia DO Unavailable Unavailable Encounter Details Date Type Department Care Team Description 02/09/2017 PNO Controlled Substance Contract Medical Records [address] [place] [address] Abstract, Provider Social History Tobacco Use Types [...] on filedocumented in this encounter Care Teams Mortgage Sales Manager Relationship Specialty Start Date End Date Wiley Thompson MD PCP - General Internal Medicine 06/04/14 01/20/22 Kathy Christopher MD [address] [place] [address] PCP - General Internal Medicine 01/21/22 Kameron Zuñiga MD Personal Care Service Provider Cardiovascular Disease 08/04/21 Katya Lopez, IRMA Cardiology 08/04/21 01/30/24 Be Pacheco NP [address] [place] [address] Nurse Practitioner Cardiology 10/17/22 01/30/24 Maycol Infante MD [address] [place] [address] Specialist Pulmonology 10/19/22 Sebastian Martinez MD [address] [place] [address] Specialist Ophthalmology 03/21/23 Eve Juan MD [address] [place] [address] [place] [address] Specialist UROGYNECOLOGY 03/21/23 Elisa Romero NP [address] [place] [address] [place] [address] Cardiology 01/31/24 Marcus Murcia DO [address] [place] [address] [place] [address] Specialist Physiatry 03/26/24 documented as of this encounter
--- OUTSIDE RECORDS SUMMARY | 2024-09-30 16:25 | XMS_ITS | Encounter Summary ---
Author Organization [facility] Address [address] [place] [address] Care Team Providers Care Pickle Sorter Name Role Phone Wiley Baxter MD Primary Care Provider Kameron Cornejo MD Unavailable Katya Lopez NP Unavailable Unavailab Kathy Haley MD Primary Care Prov ider Be Pacheco NP Unavailable [phone] Maycol Infante MD Unavailable Unavailable Sebastian Martinez MD Unavailable UnavailEve Blackmon MD Unavailable Elisa Romero NP Unavailable [phone] Marcus Murcia DO Unavailable Unavailable Reason for Visit * Reason Onset Date Comments Shortness Of Breath 03/28/2017 Encounter Details Date Type Department Care Team Description 03/28/2017 Telephone Cardiology - [address] [phone] Kameron Zuñiga MD [address] [place] [address] [phone] Shortness Of Breath Social History Tobacco Use Types Packs/Day Years [...] encounter Miscellaneous Notes * Telephone Encounter - Pallavi Mojica - 03/28/2017 4:37 PM EDT Sob w/ exertion x over a week Went to ER was given prednisone for bronchitis [place] [facility] [place] Only to sleep Even at rest sob on and off Pt was stented 2 yrs ago 09/26/2014 at [facility] [place] baxter today documented in this encounter Plan of Treatment Not on file documented as of this encounter Visit Diagnoses Not on filedocumented in this encounter Care Teams Pickle Sorter Relationship Specialty Start Date End Date Wiley Baxter MD PCP - General Internal Medicine 06/04/14 01/20/22 Kathy Christopher MD [address] [place] [address] PCP - General Internal Medicine 01/21/22 Kameron Zuñiga MD Fraud Prevention Analyst Cardiovascular Disease 08/04/21 Katya Lopez NP Cardiology 08/04/21 01/30/24 Be Pacheco NP [address] [place] [address] Nurse Practitioner Cardiology 10/17/22 01/30/24 Maycol Infante MD [address] [place] [address] Specialist Pulmonology 10/19/22 Sebastian Martinez MD [address] [place] [address] Specialist Ophthalmology 03/21/23 Eve Juan MD [address] [place] [address] [place] [address] Specialist UROGYNECOLOGY 03/21/23 Elisa Romero NP [address] [place] [address] [place] [address] Cardiology 01/31/24 Marcus Murcia DO Replaced by [facility] [place] [address] Specialist Physiatry 03/26/24 documented as of this encounter
--- OUTSIDE RECORDS SUMMARY | 2024-09-30 16:25 | XMS_ITS | Encounter Summary ---
Author Organization [facility] Address [address] [place] [address] Care Team Providers Care Electrician Marine Name Role Phone Bri Santacruz MD Primary Care Provider Unavailable Wiley Thompson MD Primary Care Provider Kameron Cornejo MD Unavailable Katya Lopez NP Unavailable Unavailab Kathy Haley MD Primary Care Prov ider CycBe navas NP Unavailable [phone] Maycol Infante MD Unavailable Unavailable Sebastian Martinez MD Unavailable UnavailEve Blackmon MD Unavailable Elisa Romero NP Unavailable [phone] Marcus Murcia DO Unavailable Unavailable Encounter Details Date Type Department Care Team Description 04/09/2013 Orders Only Adult Medicine [address] [address] Bri Santacruz MD UTI (lower urinary tract [...] IF CLINICALLY INDICATED. Bri Santacruz MD [facility] documented in this encounter Visit Diagnoses Diagnosis UTI (lower urinary tract infection)- Primary Urinary tract infection, site not specified UTI (lower urinary tract infection) Urinary tract infection, site not specified Diabetes type 2, controlled (HCC) Type II or unspecified type diabetes mellitus without mention of complication, not stated as uncontrolled documented in this encounter Care Teams Electrician Marine Relationship Specialty Start Date End Date Bri Santacruz MD PCP - General Internal Medicine 04/23/12 06/03/14 Wiley Thompson MD PCP - General Internal Medicine 06/04/14 01/20/22 Kathy Christopher MD [address] [place] [address] PCP - General Internal Medicine 01/21/22 Kameron Zuñiga MD Dial Printer Cardiovascular Disease 08/04/21 Katya Lopez NP Cardiology 08/04/21 01/30/24 Be Pacheco NP [address] [place] [address] Nurse Practitioner Cardiology 10/17/22 01/30/24 Maycol Infante MD [address] [place] [address] Specialist Pulmonology 10/19/22 Sebastian Martinez MD [address] [place] [address] Specialist Ophthalmology 03/21/23 Eve Juan MD [address] [place] [address] [place] [address] Specialist UROGYNECOLOGY 03/21/23 Elisa Romero NP [address] [facility] [address] Cardiology 01/31/24 Marcus Murcia DO [address] [facility] [address] Specialist Physiatry 03/26/24 documented as of this encounter
--- OUTSIDE RECORDS SUMMARY | 2024-09-30 16:25 | XMS_ITS | Encounter Summary ---
Author Organization [facility] Address [address] [place] [address] Care Team Providers Care Financial Advisor Trainee Name Role Phone Wiley Thompson MD Primary Care Provider Kameron Cornejo MD Unavailable Katya Lopez NP Unavailable Unavailab Kathy Haley MD Primary Care Prov ider Be Pacheco NP Unavailable [phone] Maycol Infante MD Unavailable Unavailable Sebastian Martinez MD Unavailable UnavailEve Blackmon MD Unavailable Elisa Romero NP Unavailable [phone] Marcus Murcia DO Unavailable Unavailable Reason for Visit * Reason Onset Date Comments pain, chest 02/15/2017 Encounter Details Date Type Department Care Team Description 02/15/2017 Telephone Adult Medicine [address] [address] Wiley Thompson MD pain, chest Social History [...] to ER for eval- will go to [place] [facility]. * Telephone Encounter - Marti Doris - 02/15/2017 11:41 AM EDT Symptoms patient is presenting: PT IS HAVING CHEST PAIN AND TIGHT CHEST If pain or injury related was it due to an accident at work or from a motor vehicle accident? NO If yes, gather 3rd green party insurance information Date of accident/Injury: How long has patient had these symptoms?: PCP: Wiley Thompson Payor: [facility] MCR / Plan: [employer] [place] $0 [id number] [id number] / Product Type: HMO [id number] documented in this encounter Plan of Treatment Not on file documented as of this encounter Visit Diagnoses Not on filedocumented in this encounter Care Teams Financial Advisor Trainee Relationship Specialty Start Date End Date Wiley Thompson MD PCP - General Internal Medicine 06/04/14 01/20/22 Kathy Christopher MD [address] [place] [address] PCP - General Internal Medicine 01/21/22 Kameron Zuñiga MD Package Car Driver Cardiovascular Disease 08/04/21 Katya Lopez NP Cardiology 08/04/21 01/30/24 Be Pacheco NP [address] [place] [address] [phone] Nurse Practitioner Cardiology 10/17/22 01/30/24 Maycol Infante MD [address] [place] [address] Specialist Pulmonology 10/19/22 Sebastian Martinez MD [address] [place] [address] Specialist Ophthalmology 03/21/23 Eve Juan MD [address] [place] [address] [place] [address] Specialist UROGYNECOLOGY 03/21/23 Elisa Romero NP [address] [place] [address] [place] [address] Cardiology 01/31/24 Marcus Murcia DO [address] [place] [address] [place] [address] Specialist Physiatry 03/26/24 documented as of this encounter
--- OUTSIDE RECORDS SUMMARY | 2024-09-30 16:25 | XMS_ITS | Encounter Summary ---
Author Organization [facility] Address [address] [place] [address] Care Team Providers Care Sales And Retail Management Recruiter Name Role Phone Wiley Thompson MD Primary Care Provider Kameron Cornejo MD Unavailable Katya Lopez NP Unavailable Unavailab Kathy Christopher MD Primary Care Prov ider Be Pacheco NP Unavailable [phone] Maycol Infante MD Unavailable Unavailable Sebastian Martinez MD Unavailable UnavailEve Blackmon MD Unavailable Elisa Romero NP Unavailable [phone] Marcus Murcia DO Unavailable Unavailable Encounter Details Date Type Department Care Team Description 04/27/2019 Release of Information Medical Records [address] [place] [address] Abstract, Provider Social History Tobacco Use Types [...] in this encounter Care Teams Sales And Retail Management Recruiter Relationship Specialty Start Date End Date Wiley Thompson MD PCP - General Internal Medicine 06/04/14 01/20/22 Kathy Christopher MD [address] [place] [address] PCP - General Internal Medicine 01/21/22 Kameron Zuñiga MD Ballpoint Pen Cartridge Tester Cardiovascular Disease 08/04/21 Katya Lopez, IRMA Cardiology 08/04/21 01/30/24 Be Pacheco NP [address] [place] [address] Nurse Practitioner Cardiology 10/17/22 01/30/24 Maycol Infante MD [address] [place] [address] Specialist Pulmonology 10/19/22 Sebastian Martinez MD [address] [place] [address] Specialist Ophthalmology 03/21/23 Eve Juan MD [address] [place] [address] [place] [address] Specialist UROGYNECOLOGY 03/21/23 Elisa Romero NP [address] [place] [address] [place] [address] Cardiology 01/31/24 Marcus Murcia DO [address] [place] [address] [place] [address] Specialist Physiatry 03/26/24 documented as of this encounter
--- OUTSIDE RECORDS SUMMARY | 2024-09-30 16:25 | XMS_ITS | Encounter Summary ---
Author Organization [facility] Address [address] [place] [address] Care Team Providers Care Back Tender Fourdrinier Name Role Phone Wiley Thompson MD Primary Care Provider Kameron Cornejo MD Unavailable Katya Lopez NP Unavailable Unavailab Kathy Haley MD Primary Care Prov ider Be Pacheco NP Unavailable [phone] Maycol Infante MD Unavailable Unavailable Sebastian Martinez MD Unavailable UnavailEve Blackmon MD Unavailable Elisa Romero NP Unavailable [phone] Marcus Murcia DO Unavailable Unavailable Reason for Visit * Reason Onset Date Comments Orders Call 03/02/2017 Encounter Details Date Type Department Care Team Description 03/02/2017 Telephone Adult Medicine [address] [address] Wiley Thompson MD Orders Call Social History [...] - 03/02/2017 12:06 PM EDT Clementina wolff [facility] (nurse director of casework services) is requesting the MRI order to be faxed to [phone] for approval and to have it expedited as the patient is in need of having the MRI doen shamar. Thanks documented in this encounter Plan of Treatment Not on file documented as of this encounter Visit Diagnoses Not on filedocumented in this encounter Care Teams Back Tender Fourdrinier Relationship Specialty Start Date End Date Wiley Thompson MD PCP - General Internal Medicine 06/04/14 01/20/22 Trina Rizo, Kathy Fried MD [address] [place] [address] PCP - General Internal Medicine 01/21/22 Kameron Zuñiga MD Extractor Operator Cardiovascular Disease 08/04/21 Katya Lopez NP Cardiology 08/04/21 01/30/24 Be Pacheco NP [address] [place] [address] Nurse Practitioner Cardiology 10/17/22 01/30/24 Maycol Infante MD [address] [place] [address] Specialist Pulmonology 10/19/22 Sebastian Martinez MD [address] [place], [place] [phone] Specialist Ophthalmology 03/21/23 Eve Juan MD [address] [place] [address] [place] [address] Specialist UROGYNECOLOGY 03/21/23 Elisa Romero NP [address] [place] [address] [place] [address] Cardiology 01/31/24 Marcus Murcia DO [address] [place] [address] [place] [address] Specialist Physiatry 03/26/24 documented as of this encounter
--- OUTSIDE RECORDS SUMMARY | 2024-09-30 16:25 | XMS_ITS | Encounter Summary ---
Author Organization [facility] Address [address] [place] [address] Care Team Providers Care Woods Manager Name Role Phone Kameron Zuñiga MD Unavailable Katya Lopez NP Unavailable Unavailab Kathy Haley MD Primary Care Prov ider Be Pacheco NP Unavailable [phone] Maycol Infante MD Unavailable Unavailable Sebastian Martinez MD Unavailable UnavailEve Blackmon MD Unavailable Elisa Romero NP Unavailable [phone] Marcus Murcia DO Unavailable Unavailable Encounter Details Date Type Department Care Team Description 05/11/2022 Telephone Adult Medicine [address] [id number] Kathy Christopher MD [address] [place] [address] [id number] Social History Tobacco Use Types Packs/Day Years [...] on filedocumented in this encounter Care Teams Woods Manager Relationship Specialty Start Date End Date Kathy Christopher MD [address] [place] [address] PCP - General Internal Medicine 01/21/22 Kameron Zuñiga MD Adjunct Nursing Faculty Cardiovascular Disease 08/04/21 Katya Lopez NP Cardiology 08/04/21 01/30/24 Be Pacheco NP [address] [place] [address] Nurse Practitioner Cardiology 10/17/22 01/30/24 Maycol Infante MD [address] [place] [address] Specialist Pulmonology 10/19/22 Sebastian Martinez MD [address] [place] [address] Specialist Ophthalmology 03/21/23 Eve Juan MD [address] [place] [address] [place] [address] Specialist UROGYNECOLOGY 03/21/23 Elisa Romero NP [address] [place] [address] [place] [address] Cardiology 01/31/24 Marcus Murcia DO [address] [place] [address] [place] [address] Specialist Physiatry 03/26/24 documented as of this encounter
--- OUTSIDE RECORDS SUMMARY | 2024-09-30 16:25 | XMS_ITS | Encounter Summary ---
Author Organization [facility] Address [address] [place] [address] Care Team Providers Care Moisture Meter Reader Name Role Phone Wiley Thompson MD Primary Care Provider Kameron Cornejo MD Unavailable Katya Lopez NP Unavailable Unavailab Kathy Haley MD Primary Care Prov ider Be Pacheco NP Unavailable [phone] Maycol Infante MD Unavailable Unavailable Sebastian Martinez MD Unavailable UnavailEve Blackmon MD Unavailable Elisa Romero NP Unavailable [phone] Marcus Murcia DO Unavailable Unavailable Encounter Details Date Type Department Care Team Description 01/30/2019 Apron Operator Report Medical Records [address] [place] [address] Vivek Johnson Social History Tobacco Use Types [...] on filedocumented in this encounter Care Teams Moisture Meter Reader Relationship Specialty Start Date End Date Wiley Thompson MD PCP - General Internal Medicine 06/04/14 01/20/22 Kathy Christopher MD [address] [place] [address] PCP - General Internal Medicine 01/21/22 Kameron Zuñiga MD Fruit Peeler Cardiovascular Disease 08/04/21 Katya Lopez NP Cardiology 08/04/21 01/30/24 Be Pacheco NP [address] [place] [address] Nurse Practitioner Cardiology 10/17/22 01/30/24 Maycol Infante MD [address] [place] [address] Specialist Pulmonology 10/19/22 Sebastian Martinez MD [address] [place] [address] Specialist Ophthalmology 03/21/23 Eve Juan MD [address] [place] [address] [place] [address] Specialist UROGYNECOLOGY 03/21/23 Elisa Romero NP [address] [place] [address] [place] [address] Cardiology 01/31/24 Marcus Murcia DO [address] [place] [address] [place] [address] Specialist Physiatry 03/26/24 documented as of this encounter
--- OUTSIDE RECORDS SUMMARY | 2024-09-30 16:25 | XMS_ITS | Encounter Summary ---
Author Organization [facility] Address [address] [place] [address] Care Team Providers Care Lockstitch Hemmer Name Role Phone Wiley Thompson MD Primary Care Provider Kameron Cornejo MD Unavailable Katya Lopez SPINNER CONCRETE PIPE Unavailable Unavailab Kathy Haley MD Primary Care Prov ider Be Pacheco SPINNER CONCRETE PIPE Unavailable [phone] Maycol Infante MD Unavailable Unavailable Sebastian Martinez MD Unavailable UnavailEve Blackmon MD Unavailable Elisa Romero NP Unavailable Marcus Murcia DO Unavailable Unavailable Encounter Details Date Type Department Care Team Description 12/18/2017 Utilization Management Manager Report Medical Records [address] [place] [address] Asya Waller, IRMA Social History Tobacco Use [...] on filedocumented in this encounter Care Teams Lockstitch Hemmer Relationship Specialty Start Date End Date Wiley Thompson MD PCP - General Internal Medicine 06/04/14 01/20/22 Kathy Christopher MD [address] [place] [address] PCP - General Internal Medicine 01/21/22 Kameron Zuñiga MD Roustabout Hand Cardiovascular Disease 08/04/21 Katya Lopez, IRMA Cardiology 08/04/21 01/30/24 Be Pacheco NP [address] [place] [address] Nurse Practitioner Cardiology 10/17/22 01/30/24 Maycol Infante MD [address] [place] [address] Specialist Pulmonology 10/19/22 Sebastian Martinez MD [address] [place] [address] Specialist Ophthalmology 03/21/23 Eve Juan MD [address] [place] [address] [place] [address] Specialist UROGYNECOLOGY 03/21/23 Elisa Romero NP [address] [place] [address] [place] [address] Cardiology 01/31/24 Marcus Murcia DO [address] [place] [address] [place] [address] Specialist Physiatry 03/26/24 documented as of this encounter
--- OUTSIDE RECORDS SUMMARY | 2024-09-30 16:25 | XMS_ITS | Encounter Summary ---
Author Organization [facility] Address [address] [place] [address] Care Team Providers Care Personal Lines Appraiser Name Role Phone Wiley Thompson MD Primary Care Provider Kameron Cornejo MD Unavailable Katya Lopez NP Unavailable Unavailab Kathy Haley MD Primary Care Prov ider Be Pacheco NP Unavailable [phone] Maycol Infante MD Unavailable Unavailable Sebastian Martinez MD Unavailable UnavailEve Blackmon MD Unavailable Elisa Romero NP Unavailable [phone] Marcus Murcia DO Unavailable Unavailable Reason for Visit * Reason Onset Date Comments Faxed Refill 05/01/2017 Encounter Details Date Type Department Care Team Description 05/01/2017 Refill Adult Medicine [address] [address] Wiley Thompson MD Faxed Refill Social History Tobacco Use Types Packs/Day Years [...] Telephone Encounter - Chhaya Tabor M.A. - 05/01/2017 3:00 PM EST Lab Results Component Value Date CHOL 154 02/07/2017 LDL 66 02/07/2017 HDL 48 02/07/2017 TRIG 202 02/07/2017 SGOT 19 02/07/2017 SGPT 18 02/07/2017 * Telephone Encounter - Jammie Magana - 05/01/2017 2:13 PM EST Patient would like script to be: E-PRESCRIBED/FAXED TO PHARMACY WHEN WAS THE PATIENT'S LAST APPOINTMENT IN ADULT MEDICINE? 03/28/2017 WHEN WAS THE LAST TIME THE PATIENT SAW THEIR PCP? Same as above Does patient have an upcoming appointment? Yes 05/31/2017 (THE MEDICATION REQUESTED IS ON THE MED LIST ABOVE) All of the medications requested were on the CURRENT MEDS list Did you check the Pharmacy information above?: YES Patient wants: 30 -day supply Is this a mail order prescription request ? NO Patients current insurance carrier is: Payor: [facility] MCR / Plan: [facility] $0 [facility] [id number] / Product Type: HMO [id number] documented in this encounter Plan of Treatment Not on file documented as of this encounter Visit Diagnoses Diagnosis CAD (coronary artery disease), [place] coronary artery Coronary atherosclerosis of [place] coronary artery documented in this encounter Care Teams Personal Lines Appraiser Relationship Specialty Start Date End Date Wiley Thompson MD PCP - General Internal Medicine 06/04/14 01/20/22 Trina Rizo, Kathy Freid MD [address] [place] [address] PCP - General Internal Medicine 01/21/22 Kameron Zuñiga MD Community Health Program Representative Cardiovascular Disease 08/04/21 Katya Lopez NP Cardiology 08/04/21 01/30/24 Be Pacheco NP [address] [place] [address] Nurse Practitioner Cardiology 10/17/22 01/30/24 Maycol Infante MD [address] [place] [address] Specialist Pulmonology 10/19/22 Sebastian Martinez MD [address] [place] [address] Specialist Ophthalmology 03/21/23 Eve Juan MD [address] [place] [address] [place] [address] Specialist UROGYNECOLOGY 03/21/23 Elisa Romero NP [address] [place] [address] [place] [address] Cardiology 01/31/24 Marcus Murcia DO [address] [place] [address] [place] [address] Specialist Physiatry 03/26/24 documented as of this encounter
--- OUTSIDE RECORDS SUMMARY | 2024-09-30 16:25 | XMS_ITS | Encounter Summary ---
Author Organization [facility] Address [address] [place] [address] Care Team Providers Care Assembler Tractor Name Role Phone Wiley Thompson MD Primary Care Provider Kameron Cornejo MD Unavailable Katya Lopez NP Unavailable Unavailab Kathy Haley MD Primary Care Prov ider Be Pacheco NP Unavailable [phone] Maycol Infante MD Unavailable Unavailable Sebastian Martinez MD Unavailable UnavailEve Blackmon MD Unavailable Elisa Romero NP Unavailable [phone] Marcus Murcia DO Unavailable Unavailable Reason for Visit * Reason Onset Date Comments Faxed Refill 09/14/2017 Encounter Details Date Type Department Care Team Description 09/14/2017 Refill Adult Medicine [address] [address] Wiley Thompson MD Faxed Refill Social History [...] encounter Miscellaneous Notes * Telephone Encounter - Dana Meier - 09/14/2017 9:54 AM EDT Patient would like script to be: E-PRESCRIBED/FAXED TO PHARMACY WHEN WAS THE PATIENT'S LAST APPOINTMENT IN ADULT MEDICINE? 09.07.17 WHEN WAS THE LAST TIME THE PATIENT SAW THEIR PCP? Same as above Does patient have an upcoming appointment? Yes 12.12.17 (THE MEDICATION REQUESTED IS ON THE MED LIST ABOVE) All of the medications requested were on the CURRENT MEDS list Did you check the Pharmacy information above?: YES Patient wants: 90 -day supply Is this a mail order prescription request ? NO Patients current insurance carrier is: Payor: [facility] MCR / Plan: [employer] $0 [employer] [id number] / Product Type: [employer] [id number] documented in this encounter Plan of Treatment Not on file documented as of this encounter Visit Diagnoses Not on filedocumented in this encounter Care Teams Assembler Tractor Relationship Specialty Start Date End Date Wiley Thompson MD PCP - General Internal Medicine 06/04/14 01/20/22 Kathy Christopher MD [address] [place] [address] PCP - General Internal Medicine 01/21/22 Kameron Zuñiga MD Cdl Program Coordinator Cardiovascular Disease 08/04/21 Katya Lopez NP Cardiology 08/04/21 01/30/24 Be Pacheco NP [address] [place] [address] Nurse Practitioner Cardiology 10/17/22 01/30/24 Maycol Infante MD [address] [place] [address] Specialist Pulmonology 10/19/22 Sebastian Martinez MD [address] [place] [address] Specialist Ophthalmology 03/21/23 Eve Juan MD [address] [place] [address] [place] [address] Specialist UROGYNECOLOGY 03/21/23 Elisa Romero NP [address] [place] [address] [place] [address] Cardiology 01/31/24 Marcus Murcia DO [address] [place] [address] [place] [address] Specialist Physiatry 03/26/24 documented as of this encounter
--- OUTSIDE RECORDS SUMMARY | 2024-09-30 16:25 | XMS_ITS | Clinical Summary ---
Author Organization [facility] Address [address] [address] Phone Care Team Providers Care Cold Water Machine Operator Name Role Phone Kathy Christopher MD Primary Care Provider + Allergies Active Allergy Reactions Criticality Noted Date Comments Amoxicillin-Pot Clavulanate Other (see comments),Swelling,R yessica Low 07/17/2012 Other reaction(s): Not available Medications albuterol HFA (PROVENTIL HFA;VENTOLIN HFA) 108 (90 Base) MCG/ACT inhaler INHALE 2 PUFFS BY MOUTH EVERY 4 TO 6 HOURS NEEDED FOR WHEEZE/SHORTNESS OF BREATH 3 Active albuterol (2.5 MG/3ML) 0.083% nebulizer solution TAKE 1 VIAL BY NEBULIZATION EVERY 4 HOURS NEEDED FOR WHEEZING 3 Active aspirin (ST SCHUYLER) 81 MG EC tablet Take 81 mg by mouth in the morning. 2 Active atorvastatin (LIPITOR) 80 MG tablet Take 1 tablet by mouth 1 (one) time each day Active azelastine (ASTELIN) 0.1 % nasal spray 2 sprays in the morning and 2 sprays in the evening. 3 Active cetirizine (ZyrTEC) 10 MG tablet Take 1 tablet by mouth 1 (one) time each day Active Cholecalciferol 50 MCG (2000 UT) capsule Take 1 tablet by mouth 1 (one) time each day 2 Active dexlansoprazole (DEXILANT) [address] capsule Take 1 tablet by mouth 1 (one) time each day 8 Active Diclofenac Sodium 1 % gel Apply 2 g topically 3 Active estradiol (ESTRACE) 0.1 MG/GM vaginal cream Insert into the vagina 3 Active fluticasone (FLONASE) 50 MCG/ACT nasal spray USE 2 SPRAYS INTRANASALLY DAILY FOR 30 DAYS 3 Active furosemide (LASIX) 20 MG tablet Take 1 tablet by mouth 1 (one) time each day if needed 2 Active isosorbide mononitrate (IMDUR) 30 MG 24 hr tablet Take 30 mg by mouth every morning 0 Active lidocaine (LIDODERM) 5 % patch Place 1 patch on the skin in the morning. 4 Active Melatonin 10 MG tablet Take by mouth Active metFORMIN XR (GLUCOPHAGE-XR) 500 MG 24 hr tablet Take 500 mg by mouth 1 (one) time each day with breakfast Active methocarbamol (ROBAXIN) 500 MG tablet Take 500 mg by mouth in the morning and 500 mg at noon and 500 mg in the evening. Active nitroglycerin (NITROSTAT) 0.[address] 0.4 mg under the tongue 3 Active Plecanatide (Trulance) 3 MG tablet Take 1 tablet by mouth 1 (one) time each day 3 Active predniSONE (DELTASONE) 10 MG tablet TAKE 2 TABS BY MOUTH DAILY X 14 DAYS, THEN 1 TAB DAILY X 14 DAYS Active ciprofloxacin (Cipro) 250 MG tablet Take 1 tablet (250 mg total) by mouth in the morning and 1 tablet (250 mg total) in the evening. Do all this for 5 days. 10 tablet 5 10/01/19 Active Active Problems Problem Noted Date Diagnosed Date Type 2 diabetes mellitus wit h diabetic chronic kidney disease 09/20/2024 Renal osteodystrophy 09/20/2024 Hypertensive retinopathy 11/10/2021 Overview (09/19/2024): Dr. Martinez. 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 Goal LDL goal is less than 70. Continue statin. Gastroparesis 07/17/2012 Overview (09/19/2024): Dr. Stephenson at [address] [place] [address] drive Gastroesophageal reflux disease 07/17/2012 Encounters Date Type Department Care Team Description 09/30/2024 Telephone [facility] [address] [phone] Elisa Kiser MA 09/30/2024 Telephone [facility] [address] [phone] Elisa Kiser MA 09/27/2024 Orders Only [facility] [address] [phone] Everton Riddle MD Stage 3b chronic kidney disease (HCC); Type 2 diabetes mellitus with diabetic chronic kidney disease (HCC); Renal osteodystrophy 09/25/2024 Office Communication [facility] [address] [phone] Fernanda Oliver 09/23/2024 Orders Only [facility] [address] [phone] Everton Riddle MD 09/20/2024 10:30 AM EDT Office Visit [facility] [address] [phone] Everton Riddle MD Stage 3b chronic kidney disease (HCC) (Primary Dx); Type 2 diabetes mellitus with diabetic chronic kidney disease (HCC); Renal osteodystrophy from Last 3 Months Immunizations Immunization Administration Dates Next Due Influenza, Trivalent, Adjuvanted 024,02/28/2023,03/28/2022,03/22/2020 ,03/13/2019,03/02/2018,03/01/2017, 6 Influenza, Unspecified 03/10/2022,2020,02/24/2020,04/06/2015 ,05/06/2014,03/05/2013 Bob SARS-COV-2 09/09/2020 Pfizer SARS-COV-2 04/28/2021 Pneumococcal Conjugate 13-Valent 03/30/2016 Pneumococcal Polysaccharide 04/28/2014, 3,08/01/2012 Td 01/16/2023 Tdap 08/01/2012 Social History Tobacco Use Types Packs/Day Years Used Date Smoking Tobacco: Never Assessed Comments Unknown Sex and Gender Information Value Date Recorded Sex Assigned at Not on file Legal Sex Female 5:13 PM EST Gender Identity Not on file Sexual Orientation Not on file Last Filed Vital Signs Vital Sign Reading Time Taken Comments Blood Pressure 128/65 09/20/2024 10:25 AM EDT Pulse 87 09/20/2024 10:25 AM EDT Temperature - - Respiratory Rate - - Oxygen Saturation 99% 09/20/2024 10:25 AM EDT Inhaled Oxygen Concentration - - Weight 83.2 kg (183 lb 6.4 oz) 09/20/2024 10:25 AM EDT Height - - Body Mass Index - - Plan of Treatment Upcoming Encounters Date Type Department Care Team (Late st Contact Info) Description 11/04/2024 2:45 PM EDT Office Visit [facility] [address] [phone] Everton Riddle MD [address] [phone] Health Maintenance Due Date Last Done Comments Diabetes: Ophthalmology Exam 09/10/2024 06/27/2014 Diabetes: Pedal Pulse Checked 09/10/2024 Diabetes: Sensory Foot Exam 09/10/2024 Diabetes: Visual Foot Exam 09/10/2024 Diabetes: Hemoglobin A1C 11/26/2024 08/26/2024, 02/11/2021 Pneumococcal Vaccine: 50+ Years Completed 03/30/2016, 04/28/2014, 03/05/2013, Additional history exists Pneumococcal Vaccine: Peds (0 to 5 Years) and At-Risk Patients (6 to 49 Years) Discontinued 03/30/2016, 04/28/2014, 03/05/2013, Additional history exists Influenza Vaccine Completed 03/26/2024, , 03/28/2022, Additional history exists Hepatitis B Vaccine Aged Out No longe r eligible based on patient's age to complete this topic Procedures Procedure Name Priority Date/Time Associated Diagnosis Comments URINALYSIS RFX MICROSCOPIC Routine 09/23/2024 3:26 PM EDT PROTEIN / CREATININE RATIO, URINE Routine 09/23/2024 3:26 PM EDT Stage 3b chronic kidney disease (HCC) Type 2 diabetes mellitus with diabetic chronic kidney disease (HCC) Renal osteodystrophy URINE ALBUMIN / CREATININE RATIO Routine 09/23/2024 3:26 PM EDT Stage 3b chronic kidney disease (HCC) Type 2 diabetes mellitus with diabetic chronic kidney disease (HCC) Renal osteodystrophy HEP C ANTIBODY #2 - HC Routine 3:23 PM EDT HEPATITIS B SURFACE ANTIGEN W/REFL CONFIRM Routine 09/23/2024 3:23 PM EDT HEPATITIS B SURFACE AB (HC) Routine 09/23/2024 3:23 PM EDT C4 COMPLEMENT Routine 09/23/2024 3:23 PM EDT Stage 3b chronic kidney disease (HCC) Type 2 diabetes mellitus with diabetic chronic kidney disease (HCC) Renal osteodystrophy C3 COMPLEMENT Routine 09/23/2024 3:23 PM EDT Stage 3b chronic kidney disease (HCC) Type 2 diabetes mellitus with diabetic chronic kidney disease (HCC) Renal osteodystrophy HEPATITIS B CORE ANTIBODY, IGM Routine 09/23/2024 3:23 PM EDT Stage 3b chronic kidney disease (HCC) Type 2 diabetes mellitus with diabetic chronic kidney disease (HCC) Renal osteodystrophy MAGNESIUM Routine 09/23/2024 3:23 PM EDT Stage 3b chronic kidney disease (HCC) Type 2 diabetes mellitus with diabetic chronic kidney disease (HCC) Renal osteodystrophy VITAMIN D 25 HYDROXY Routine 09/23/2024 3:23 PM EDT Stage 3b chronic kidney disease (HCC) Type 2 diabetes mellitus with diabetic chronic kidney disease (HCC) Renal osteodystrophy RENAL FUNCTION PANEL Routine 09/23/2024 3:23 PM EDT Stage 3b chronic kidney disease (HCC) Type 2 diabetes mellitus with diabetic chronic kidney disease (HCC) Renal osteodystrophy PTH, INTACT Routine 09/23/2024 3:23 PM EDT Stage 3b chronic kidney disease (HCC) Type 2 diabetes mellitus with diabetic chronic kidney disease (HCC) Renal osteodystrophy FREE [place] LIGHT CHAINS, QUANT, SERUM Routine 09/23/2024 3:22 PM EDT [place] IFA SCREEN W/REFLEX TO TITER AND PATTERN Routine 09/23/2024 3:22 PM EDT PROTEIN ELECTROPHORESIS INTERPRETATION, SERUM (HC) Routine 09/23/2024 3:22 PM EDT PROTEIN, TOTAL, SERUM Routine 09/23/2024 3:22 PM EDT PROTEIN ELECTROPHORESIS, SERUM Routine 09/23/2024 3:22 PM EDT Stage 3b chronic kidney disease (HCC) Type 2 diabetes mellitus with diabetic chronic kidney disease (HCC) Renal osteodystrophy CBC Routine 09/23/2024 2:15 PM EDT Stage 3b chronic kidney disease (HCC) Type 2 diabetes mellitus with diabetic chronic kidney disease (HCC) Renal osteodystrophy from Last 3 Months Results * (ABNORMAL) Protein, Total, Random Urine w/Creatinine (Protein/Creat Ratio) (09/23/2024 3:26 PM EDT) Protein, Ur 27 mg/dL [facility] Urine Protein/Creati nine Ratio 0.24(H) <=0.20 mg/mg creat [facility] Creatinine, Urine 112.0 mg/dL [facility] Urine (Urine, Clean Catch) 09/23/2024 3:26 PM EDT 09/23/2024 4:23 PM EDT Everton Riddle MD LAB URINE ORDERABLES Final Re sult Performing Organization Address [facility] de Phone Number [facility] [address] [place] [address] * (ABNORMAL) Urine Albumin / Creatinine Ratio (09/23/2024 3:26 PM EDT) Creatinine, Urine 112.0 mg/dL [facility] Microalbumin Urine Random 81.4(H) 0.0 - 29.0 mg/L [facility] Microalbumin/Cre atinine Ratio 73(H) <30 mg/g creat [facility] Urine (Urine, Clean Catch) 09/23/2024 3:26 PM EDT 09/23/2024 4:23 PM EDT Everton Riddle MD LAB URINE ORDERABLES Final Re sult Performing Organization Address [facility] Co de Phone Number [facility] [address] [place] [address] * (ABNORMAL) Urinalysis Reflex Microscopic (09/23/2024 3:26 PM EDT) Pathologist [facility] Specific [place] 1.016 1.003 - 1.030 [facility] pH Urine 6.0 5.0 - 8.0 pH [facility] LEUKOCYTES, URINE Large(A) Negative [facility] Nitrite, Urine Negative Negative [facility] Protein, Urine Trace <=Trace mg/dL [facility] Glucose Urine Negative Negative mg/dL [facility] Ketones, Urine Negative Negative mg/dL [facility] Urobilinogen Urine 1.0 0.2 - 1.0 mg/dL [facility] Bilirubin Urine Negative Negative [facility] Blood Urine Negative Negative [facility] RBC, Urine 2.7 0 - 4 /HPF [facility] WBC, Urine 115.5(H) 0 - 4 /HPF [facility] Squamous Epithelial, Urine 15 0 - 60 /LPF [facility] Bacteria, Urine Negative Negative /HPF [facility] Hyaline Casts, UA 2.8 0 - 3 /LPF [facility] 09/23/2024 3:26 PM EDT 09/23/2024 4:23 PM EDT us Everton Riddle MD LAB URINE ORDERABLES Final Re sult GAMAL [facility] [address] [place] [address] * Hep C Antibody (09/23/2024 3:23 PM EDT) Hep C Ab Negative Negative [facility] 09/23/2024 3:23 PM EDT 09/23/2024 4:23 PM EDT Everton Riddle MD LAB BLOOD ORDERABLES Final Re sult Performing Organization Address [facility]/ZIP Co de Phone Number [facility] [address] [place] [address] * Hepatitis B Surface AB (09/23/2024 3:23 PM EDT) Hep B Surface Antibody Negative Negative [facility] Hep B Surface Ab <3.1 mIU/mL [facility] 09/23/2024 3:23 PM EDT 09/23/2024 4:23 PM EDT Narrative [place] - 09/23/2024 6:14 PM EDT >=10 mIU/mL is considered to be consistent with immunity. Everton Riddle MD LAB [id number] SOLICITED RESULTS Final Result Performing Organization Address [facility] de Phone Number [facility] [address] [place] [address] * Hepatitis B Surface Ag w/Reflex Confirmation (09/23/2024 3:23 PM EDT) Hep B Surface Ag Negative Negative [facility] 09/23/2024 3:23 PM EDT 09/23/2024 4:23 PM EDT Narrative [place] - 09/23/2024 6:25 PM EDT Over the counter supplements containing high doses of biotin may interfere with this assay. ??If interference is suspected, patients shoud be retested after refraining from biotin supplements for 72 hours. Everton Riddle MD LAB BLOOD ORDERABLES Final Re sult Performing Organization Address [facility] Co de Phone Number [facility] [address] [place] [address] * Hepatitis B core antibody, IgM (09/23/2024 3:23 PM EDT) Pathologist [facility] Hep B Core IgM Negative Negative [facility] Blood (Blood, Venous) 09/23/2024 3:23 PM EDT 09/23/2024 4:23 PM EDT Narrative [place] - 09/23/2024 8:32 PM EDT Over the counter supplements containing high doses of biotin may interfere with this assay. ??If interference is suspected, patients shoud be retested after refraining from biotin supplements for 72 hours. Everton Riddle MD LAB BLOOD ORDERABLES Final Re sult Performing Organization Address [facility] Co de Phone Number [facility] [address] [place] [address] * Vitamin D 25 Hydroxy (09/23/2024 3:23 PM EDT) [facility] Vitamin D, 25-OH, Total 48.9 30.0 - 80.0 ng/mL [facility] Blood (Blood, Venous) 09/23/2024 3:23 PM EDT 09/23/2024 4:23 PM EDT Everton Riddle MD LAB BLOOD ORDERABLES Final Re sult Performing Organization Address [facility] Co de Phone Number [facility] [address] [place] [address] * C3 Complement (09/23/2024 3:23 PM EDT) [facility] C3 Complement 176 88 - 201 mg/dL [facility] Blood (Blood, Venous) 09/23/2024 3:23 PM EDT 09/23/2024 4:23 PM EDT Everton Riddle MD LAB BLOOD ORDERABLES Final Re sult Performing Organization Address [facility] Co de Phone Number [facility] [address] [place] [address] * (ABNORMAL) C4 Complement (09/23/2024 3:23 PM EDT) C4 Complement 50(H) 16 - 47 mg/dL [facility] Blood (Blood, Venous) 09/23/2024 3:23 PM EDT 09/23/2024 4:23 PM EDT Everton Riddle MD LAB BLOOD ORDERABLES Final Re sult [facility] [address] [place] [address] * PTH, Intact (09/23/2024 3:23 PM EDT) Pathologist [facility] PTH 41.7 18.5 - 88.0 pcg/mL [facility] Blood (Blood, Venous) 09/23/2024 3:23 PM EDT 09/23/2024 4:23 PM EDT Everton Riddle MD LAB BLOOD ORDERABLES Final Re sult Performing Organization Address [facility] Co de Phone Number [facility] [address] [place] [address] * (ABNORMAL) Magnesium (09/23/2024 3:23 PM EDT) Pathologist [facility] Magnesium 1.6(L) 1.9 - 2.6 mg/dL [facility] Blood (Blood, Venous) 09/23/2024 3:23 PM EDT 09/23/2024 4:23 PM EDT Everton Riddle MD LAB BLOOD ORDERABLES Final Re sult [facility] [address] [place] [address] * (ABNORMAL) Renal Function Panel (09/23/2024 3:23 PM EDT) Sodium 144 133 - 145 mmol/L [facility] Potassium 4.0 3.5 - 5.5 mmol/L [facility] Chloride 109 96 - 110 mmol/L [facility] Bicarbonate (CO2) 31 21 - 32 mmol/L [facility] Anion Gap 4 3 - 11 [facility] Glucose 119(H) 70 - 100 mg/dL [facility] BUN 15 5 - 25 mg/dL [facility] Creatinine Serum 1.04 0.50 - 1.10 mg/dL [facility] eGFR 55(L) >=60 mL/min/1. 73m2 [facility] Comment:Calculation based on the?Chronic Kidney Disease Epidemiology Collaboration (CKD-EPI) equation refit?without adjustment for race. BUN/Creatinine Ratio 14.4 [facility] Albumin 3.4 3.2 - 5.0 g/dL [facility] Calcium 9.3 8.5 - 10.5 mg/dL [facility] Phosphorus 3.9 2.5 - 4.5 mg/dL [facility] Blood (Blood, Venous) 09/23/2024 3:23 PM EDT 09/23/2024 4:23 PM EDT us Everton Riddle MD LAB BLOOD ORDERABLES Final Re sult GAMAL [facility] [address] [place] [address] * Protein Electrophoresis Interpretation, Serum (09/23/2024 3:22 PM EDT) Pathologist Interpretation Tiesha Gonzalez MD [facility] 09/23/2024 3:22 PM EDT 09/23/2024 4:23 PM EDT Everton Riddle MD LAB [id number] SOLICITED RESULTS Final Result Performing Organization Address [facility]/ZIP Co de Phone Number [facility] [address] [place] [address] * Free [place] Lambda Light Chain, QN (09/23/2024 3:22 PM EDT) Free [place] Lt Chains, S 1.48 0.33 - 1.94 mg/dL [facility] Free [place]ambda Lt Chains, S 2.11 0.57 - 2.63 mg/dL [facility] [place]/Lambda LC Ratio 0.70 0.26 - 1.65 [facility] Comment: Test performed at [facility], [address] [place], [place] ??[address] ? [phone] Anca Gallegos MD, PhD - Bank President 09/23/2024 3:22 PM EDT 09/23/2024 5:21 PM EDT us Everton Riddle MD LAB BLOOD ORDERABLES Final Re sult Performing Organization Address [facility]/ZIP Co de Phone Number [facility] [address] [place] [address] * [place] IFA Screen s/Reflex to Titer and Pattern (09/23/2024 3:22 PM EDT) [place] Negative Negative [facility] 09/23/2024 3:22 PM EDT 09/23/2024 4:23 PM EDT Everton Riddle MD LAB BLOOD ORDERABLES Final Re sult Performing Organization Address City/[facility]/ZIP Co de Phone Number [facility] [address] [place] [address] * (ABNORMAL) Protein electrophoresis, serum (09/23/2024 3:22 PM EDT) Total Protein 6.4 6.0 - 8.0 g/dL [facility] Albumin 3.4 2.9 - 4.1 g/dL [facility] Lhklf-5-Czbvuadc 0.2 0.1 - 0.5 g/dL [facility] Irhul-4-Gfuaedrv 1.2 0.7 - 1.5 g/dL [facility] Beta Globulin 1.0 0.7 - 1.5 g/dL [facility] Gamma Globulin in Serum 0.6(L) 0.7 - 1.9 g/dL [facility] SPEP Interpretation No M-Antonio seen. 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 [facility] Blood (Blood, Venous) 09/23/2024 3:22 PM EDT 09/23/2024 4:23 PM EDT Everton Riddle MD LAB BLOOD ORDERABLES Final Re sult Performing Organization Address [facility] Co de Phone Number [facility] [address] [place] [address] * Protein, total (09/23/2024 3:22 PM EDT) Total Protein 6.4 6.0 - 8.0 g/dL [facility] 09/23/2024 3:22 PM EDT 09/23/2024 4:23 PM EDT Everton Riddle MD LAB BLOOD ORDERABLES Final Re sult Performing Organization Address [facility]/ZIP Co de Phone Number [facility] [address] [place] [address] * (ABNORMAL) CBC (09/23/2024 2:15 PM EDT) WBC 9.0 4.8 - 10.8 K/[facility] RBC 3.70(L) 3.80 - 4.80 M/[facility] Hgb 11.0(L) 11.5 - 16.0 g/dL [facility] Hematocrit 33.8(L) 35.0 - 47.0 % [facility] MCV 92.6 79.0 - 98.0 [facility] MCH 30.1 27.0 - 32.0 pcg [facility] MCHC 32.5 32.0 - 37.0 g/dL [facility] RDW 15.8(H) 11.0 - 15.0 % [facility] Platelets 260 130 - 400 K/[facility] MPV 10.6 7.0 - 11.0 [facility] nRBC Count 0.0 <1.0 % [facility] NRBC Absolute 0.00 <0.10 [facility] Blood (Blood, Venous) 09/23/2024 2:15 PM EDT 09/23/2024 4:25 PM EDT us Everton Riddle MD LAB BLOOD ORDERABLES Final Re sult [facility] [address] [place] [address] from Last 3 Months Insurance [facility] ([id number]) Care Teams Cold Water Machine Operator Relationship Specialty Start Date End Date Kathy Christopher MD [address] [place] [address] PCP - General 09/10/24
--- OUTSIDE RECORDS SUMMARY | 2024-09-30 16:25 | XMS_ITS | Encounter Summary ---
Author Organization [facility] Address [address] [place] [address] Care Team Providers Care Retail Training Manager Name Role Phone Wiley Thompson MD Primary Care Provider Kameron Cornejo MD Unavailable Katya Lopez NP Unavailable Unavailab Kathy Haley MD Primary Care Prov ider Be Pacheco NP Unavailable [phone] Maycol Infante MD Unavailable Unavailable Sebastian Martinez MD Unavailable UnavailEve Blackmon MD Unavailable Elisa Romero NP Unavailable [phone] Marcus Murcia DO Unavailable Unavailable Encounter Details Date Type Department Care Team Description 06/20/2019 Orders Only Medical Records [address] [place] [id number] Wiley Thompson MD Social History Tobacco Use [...] on filedocumented in this encounter Care Teams Retail Training Manager Relationship Specialty Start Date End Date Wiley Thompson MD PCP - General Internal Medicine 06/04/14 01/20/22 Kathy Christopher MD [address] [place] [phone] PCP - General Internal Medicine 01/21/22 Kameron Zuñiga MD Senior Principal Process Engineer Cardiovascular Disease 08/04/21 Katya Lopez NP Cardiology 08/04/21 01/30/24 Be Pacheco NP [address] [place] [phone] Nurse Practitioner Cardiology 10/17/22 01/30/24 Maycol Infante MD [address] [place] [address] Specialist Pulmonology 10/19/22 Sebastian Martinez MD [address] [place] [address] Specialist Ophthalmology 03/21/23 Eve Juan MD [address] [place] [address] [place] [address] Specialist UROGYNECOLOGY 03/21/23 Elisa Romero NP [address] [place] [address] [place] [address] Cardiology 01/31/24 Marcus Murcia DO [address] [place] [address] [place] [address] Specialist Physiatry 03/26/24 documented as of this encounter
--- OUTSIDE RECORDS SUMMARY | 2024-09-30 16:25 | XMS_ITS | Encounter Summary ---
Author Organization [facility] Address [address] [place] [address] Care Team Providers Care Worm Grower Name Role Phone Wiley Thompson MD Primary Care Provider Kameron Cornejo MD Unavailable Katya Lopez NP Unavailable Unavailab Kathy Christopher MD Primary Care Prov ider Be Pacheco NP Unavailable [phone] Maycol Infante MD Unavailable Unavailable Sebastian Martinez MD Unavailable UnavailEve Blackmon MD Unavailable Elisa Romero NP Unavailable [phone] Marcus Murcia DO Unavailable Unavailable Encounter Details Date Type Department Care Team Description 05/21/2015 Transfer Records Medical Records [address] [place] [address]149 Abstract, Provider Social History Tobacco Use Types [...] on filedocumented in this encounter Care Teams Worm Grower Relationship Specialty Start Date End Date Wiley Thompson MD PCP - General Internal Medicine 06/04/14 01/20/22 Kathy Christopher MD [address] [place] [address] 54908 PCP - General Internal Medicine 01/21/22 Kameron Zuñiga MD Salesperson Shoes Cardiovascular Disease 08/04/21 Katya Lopez NP Cardiology 08/04/21 01/30/24 Be Pacheco NP [address] [place] [address] 80784 Nurse Practitioner Cardiology 10/17/22 01/30/24 Maycol Infante MD [address] [place] [address] 36841 Specialist Pulmonology 10/19/22 Sebastian Martinez MD [address] [place] [address] 78617 Specialist Ophthalmology 03/21/23 Eve Juan MD [address] [place] [address] [place] [address] Specialist UROGYNECOLOGY 03/21/23 Elisa Romero NP [address] [place] [address] [place] [address] Cardiology 01/31/24 Marcus Murcia DO [address] [place] [address] [place] [address] Specialist Physiatry 03/26/24 documented as of this encounter
--- OUTSIDE RECORDS SUMMARY | 2024-09-30 16:25 | XMS_ITS | Encounter Summary ---
Author Organization [facility] Address [address] [place] [address] Care Team Providers Care Instrument Repairer Steam Plant Name Role Phone Wiley Thompson MD Primary Care Provider Kameron Cornejo MD Unavailable Katya Lopez NP Unavailable Unavailab Kathy Christopher MD Primary Care Prov ider Be Pacheco NP Unavailable [phone] Maycol Infante MD Unavailable Unavailable Sebastian Martinez MD Unavailable UnavailEve Blackmon MD Unavailable Elisa Romero NP Unavailable [phone] Marcus Murcia DO Unavailable Unavailable Encounter Details Date Type Department Care Team Description 01/02/2018 Hospital Medical Records [address] [place] [address] Jayesh Villa Social History Tobacco Use Types Packs/Day Years [...] on filedocumented in this encounter Care Teams Instrument Repairer Steam Plant Relationship Specialty Start Date End Date Wiley Thompson MD PCP - General Internal Medicine 06/04/14 01/20/22 Kathy Christopher MD [address] [place] [address]32 PCP - General Internal Medicine 01/21/22 Kameron Zuñiga MD Plate Worker Helper Cardiovascular Disease 08/04/21 Katya Lopez, IRMA Cardiology 08/04/21 01/30/24 Be Pacheco NP [address] [place] [address] 25546 Nurse Practitioner Cardiology 10/17/22 01/30/24 Maycol Infante MD [address] [place] [address] 83023 Specialist Pulmonology 10/19/22 Sebastian Martinez MD [address] [place] [address] 23544 Specialist Ophthalmology 03/21/23 Eve Juan MD [address] [place] [address] [place] [address] Specialist UROGYNECOLOGY 03/21/23 Elisa Romero NP [address] [place] [address] [place] [address] Cardiology 01/31/24 Marcus Murcia DO [address] [place] [address] [place] [address] Specialist Physiatry 03/26/24 documented as of this encounter
--- OUTSIDE RECORDS SUMMARY | 2024-09-30 16:26 | XMS_ITS | Encounter Summary ---
Author Organization [facility] Address [address] [place] [address] Care Team Providers Care Pilot Control Operator Name Role Phone Wiley Thompson MD Primary Care Provider Kameron Cornejo MD Unavailable Katya Lopez NP Unavailable Unavailab Kathy Haley MD Primary Care Prov ider Be Pacheco NP Unavailable [phone] Maycol Infante MD Unavailable Unavailable Sebastian Martinez MD Unavailable UnavailEve Blackmon MD Unavailable Elisa Romero NP Unavailable [phone] Marcus Murcia DO Unavailable Unavailable Encounter Details Date Type Department Care Team Description 06/04/2014 SCAN Medical Records [address] [place] [address] Abstract, Provider Social History Tobacco Use Types [...] on filedocumented in this encounter Care Teams Pilot Control Operator Relationship Specialty Start Date End Date Wiley Thompson MD PCP - General Internal Medicine 06/04/14 01/20/22 Kathy Christopher MD [address] [place] [address] 90696 PCP - General Internal Medicine 01/21/22 Kameron Zuñiga MD Weed Science Research Technician Cardiovascular Disease 08/04/21 Katya Lopez NP Cardiology 08/04/21 01/30/24 Be Pacheco NP [address] [place] [address] 05584 Nurse Practitioner Cardiology 10/17/22 01/30/24 Maycol Infante MD [address] [place] [address] 12065 Specialist Pulmonology 10/19/22 Sebastian Martinez MD [address] [place], [place] [phone] Specialist Ophthalmology 03/21/23 Eve Juan MD [address] [place] [address] [place] [address] Specialist UROGYNECOLOGY 03/21/23 Elisa Romero NP [address] [place] [address] [place] [address] Cardiology 01/31/24 Marcus Murcia DO [address] [place] [address] [place] [address] Specialist Physiatry 03/26/24 documented as of this encounter
--- OUTSIDE RECORDS SUMMARY | 2024-09-30 16:26 | XMS_ITS | Encounter Summary ---
Author Organization [facility] Address [address] [place] [address] Care Team Providers Care Heel Nailing Machine Operator Name Role Phone Wiley Thompson MD Primary Care Provider Kameron Cornejo MD Unavailable Katya Lopez NP Unavailable Unavailab Kathy Christopher MD Primary Care Prov ider Be Pacheco NP Unavailable [phone] Maycol Infante MD Unavailable Unavailable Sebastian Martinez MD Unavailable UnavailEve Blackmon MD Unavailable Elisa Romero NP Unavailable [phone] Marcus Murcia DO Unavailable Unavailable Encounter Details Date Type Department Care Team Description 06/10/2016 Release of Information Medical Records [address] [place] [address]22 Abstract, Provider Social History Tobacco Use Types [...] filedocumented in this encounter Care Teams Heel Nailing Machine Operator Relationship Specialty Start Date End Date Wiley Thompson MD PCP - General Internal Medicine 06/04/14 01/20/22 Kathy Christopher MD [address] [place] [address] 86628 PCP - General Internal Medicine 01/21/22 Kameron Zuñiga MD Pumper Gauger Apprentice Cardiovascular Disease 08/04/21 Katya Lopez NP Cardiology 08/04/21 01/30/24 Be Pacheco NP [address] [place] [address] 41261 Nurse Practitioner Cardiology 10/17/22 01/30/24 Maycol Infante MD [address] [place] [address] 65422 Specialist Pulmonology 10/19/22 Sebastian Martinez MD [address] [place], [place] [address] Specialist Ophthalmology 03/21/23 Eve Juan MD [address] [place] [address] [place] [address] Specialist UROGYNECOLOGY 03/21/23 Elisa Romero NP [address] [place] [address] [place] [address] Cardiology 01/31/24 Marucs Murcia DO [address] [place] [address] [place] [address] Specialist Physiatry 03/26/24 documented as of this encounter
--- OUTSIDE RECORDS SUMMARY | 2024-09-30 16:26 | XMS_ITS | Encounter Summary ---
Author Organization [facility] Address [address] [place] [address] Care Team Providers Care Air Carrier Maintenance Inspector Name Role Phone Kameron Zuñiga MD Unavailable Katya Lopez NP Unavailable Unavailab Kathy Haley MD Primary Care Prov ider Be Pacheco NP Unavailable [phone] Maycol Infante MD Unavailable Unavailable Sebastian Martinez MD Unavailable UnavailEve Blackmon MD Unavailable Elisa Romero NP Unavailable [phone] Marcus Murcia DO Unavailable Unavailable Encounter Details Date Type Department Care Team Description 2022 Orders Only Cardio PVC POC [address] [facility] [address] [place] [address] Default, Provider Social History Tobacco Use Types Packs/Day [...] suspected to have Coronavirus/COVID-19? No / Unsure 10/10/2022 1:43 PM EDT documented as of this encounter Plan of Treatment Not on file documented as of this encounter Procedures Procedure Name Priority Date/Time Associated Diagnosis Comments CHG RADIOLOGIC EXAM CHEST 2 VIEWS Routine 09/26/2022 OUTSIDE EKG Routine 09/26/2022 documented in this encounter Results * RADIOLOGIC EXAM CHEST 2 VIEWS (09/26/2022) Provider Default RADIOLOGY * OUTSIDE EKG (09/26/2022) Provider Default CARDIOLOGY documented in this encounter Visit Diagnoses Not on filedocumented in this encounter Care Teams Air Carrier Maintenance Inspector Relationship Specialty Start Date End Date Kathy Christopher MD [address] [place] [address] 97406 PCP - General Internal Medicine 01/21/22 Kameron Zuñiga MD Pipe Layer Helper Cardiovascular Disease 08/04/21 Katya Lopez NP Cardiology 08/04/21 01/30/24 Be Pacheco NP [address] [place] [address] 15727 Nurse Practitioner Cardiology 10/17/22 01/30/24 Maycol Infante MD [address] [place] [address] 14410 Specialist Pulmonology 10/19/22 Sebastian Martinez MD [address] [place] [address] 25432 Specialist Ophthalmology 03/21/23 Eve Juan MD [address] [place] [address] [place] [address] Specialist UROGYNECOLOGY 03/21/23 Elisa Romero NP [address] [place] [address] [place] [address] Cardiology 01/31/24 Marcus Murcia DO [address] [place] [address] [place] [address] Specialist Physiatry 03/26/24 documented as of this encounter
--- OUTSIDE RECORDS SUMMARY | 2024-09-30 16:26 | XMS_ITS | Encounter Summary ---
Author Organization [facility] Address [address] [place] [address] Care Team Providers Care Software Licensing Executive Name Role Phone Wiley Thompson MD Primary Care Provider Kameron Cornejo MD Unavailable Katya Lopez NP Unavailable Unavailab Kathy Christopher MD Primary Care Prov ider Be Pacheco NP Unavailable [phone] Maycol Infante MD Unavailable Unavailable Sebastian Martinez MD Unavailable UnavailEve Blackmon MD Unavailable Elisa Romero NP Unavailable [phone] Marcus Murcia DO Unavailable Unavailable Encounter Details Date Type Department Care Team Description 11/23/2015 Transfer Records Medical Records [address] [place] [address]15 Abstract, Provider Social History Tobacco Use Types [...] on filedocumented in this encounter Care Teams Software Licensing Executive Relationship Specialty Start Date End Date Wiley Thompson MD PCP - General Internal Medicine 06/04/14 01/20/22 Kathy Christopher MD [address] [place] [address] 18646 PCP - General Internal Medicine 01/21/22 Kameron Zuñiga MD Oracle Ebs Architect Cardiovascular Disease 08/04/21 Katya Lopez NP Cardiology 08/04/21 01/30/24 Be Pacheco NP [address] [place] [address] 76829 Nurse Practitioner Cardiology 10/17/22 01/30/24 Maycol Infante MD [address] [place] [address] 11116 Specialist Pulmonology 10/19/22 Sebastian Martinez MD [address] [place] [address] 65973 Specialist Ophthalmology 03/21/23 Eve Juan MD [address] [place] [address] [place] [address] Specialist UROGYNECOLOGY 03/21/23 Elisa Romero NP [address] [place] [address] [place] [address] Cardiology 01/31/24 Marcus Murcia DO [address] [place] [address] [place] [address] Specialist Physiatry 03/26/24 documented as of this encounter
--- OUTSIDE RECORDS SUMMARY | 2024-09-30 16:26 | XMS_ITS | Encounter Summary ---
Author Organization [facility] Address [address] [place] [address] Care Team Providers Care Loading Machine Operator Helper Name Role Phone Bri Santacruz MD Primary Care Provider Unavailable Wiley Thompson MD Primary Care Provider Kameron Cornejo MD Unavailable Katya Lopez NP Unavailable Unavailab Kathy Haley MD Primary Care Prov ider Be Pacheco NP Unavailable [phone] Maycol Infante MD Unavailable Unavailable Sebastian Martinez MD Unavailable UnavailEve Blackmon MD Unavailable Elisa Romero NP Unavailable [phone] Marcus Murcia DO Unavailable Unavailable Encounter Details Date Type Department Care Team Description 10/01/2013 Natural Gas Shothole Driller Report Medical Records [address] [place] [address] 56117 Abstract, Provider Social History Tobacco Use Types [...] on filedocumented in this encounter Care Teams Loading Machine Operator Helper Relationship Specialty Start Date End Date Bri Santacruz MD PCP - General Internal Medicine 04/23/12 06/03/14 Wiley Thompson MD PCP - General Internal Medicine 06/04/14 01/20/22 Kathy Christopher MD [address] [place] [address] 10580 PCP - General Internal Medicine 01/21/22 Kameron Zuñiga MD Machine Operator Hay Stacker Cardiovascular Disease 08/04/21 Katya Lopez NP Cardiology 08/04/21 01/30/24 Be Pacheco NP [address] [place] [address] 05810 Nurse Practitioner Cardiology 10/17/22 01/30/24 Maycol Infante MD [address] [place] [address] 31138 Specialist Pulmonology 10/19/22 Sebastian Martinez MD [address] [place] [address] 81868 Specialist Ophthalmology 03/21/23 Eve Juan MD [address] [place] [address] [place] [address] Specialist UROGYNECOLOGY 03/21/23 Elisa Romero NP [address] [place] [address] [place] [address] Cardiology 01/31/24 Marcus Murcia DO [address] [place] [address] [place] [address] Specialist Physiatry 03/26/24 documented as of this encounter
--- OUTSIDE RECORDS SUMMARY | 2024-09-30 16:26 | XMS_ITS | Encounter Summary ---
Author Organization [facility] Address [address] [place] [address] Care Team Providers Care Human Development Professor Name Role Phone Bri Santacruz MD Primary Care Provider Unavailable Wiley Thompson MD Primary Care Provider Kameron Cornejo MD Unavailable Katya Lopez NP Unavailable Unavailab Kathy Haley MD Primary Care Prov ider Be Pacheco NP Unavailable [phone] Maycol Infante MD Unavailable Unavailable Sebastian Martinez MD Unavailable UnavailEve Blackmon MD Unavailable Elisa Romero NP Unavailable [phone] Marcus Murcia DO Unavailable Unavailable Encounter Details Date Type Department Care Team Description 10/16/2013 Media Manager Report Medical Records [address] [place] [address]14 Pallavi Henry MD Social History Tobacco Use [...] on filedocumented in this encounter Care Teams Human Development Professor Relationship Specialty Start Date End Date Bri Santacruz MD PCP - General Internal Medicine 04/23/12 06/03/14 Wiley Thompson MD PCP - General Internal Medicine 06/04/14 01/20/22 Kathy Christopher MD [address] [place] [address] 33981 PCP - General Internal Medicine 01/21/22 Kameron Zuñiga MD Curb Hop Cardiovascular Disease 08/04/21 Katya Lopez, IRMA Cardiology 08/04/21 01/30/24 Be Pacheco NP [address] [place] [address] 06751 Nurse Practitioner Cardiology 10/17/22 01/30/24 Maycol Infante MD [address] [place] [address] 74754 Specialist Pulmonology 10/19/22 Sebastian Martinez MD [address] [place] [address] 16108 Specialist Ophthalmology 03/21/23 Eve Juan MD [address] [place] [address] [place] [address] Specialist UROGYNECOLOGY 03/21/23 Elisa Romero NP [address] [place] [address] [place] [address] Cardiology 01/31/24 Marcus Murcia DO [address] [place] [address] [place] [address] Specialist Physiatry 03/26/24 documented as of this encounter
--- OUTSIDE RECORDS SUMMARY | 2024-09-30 16:26 | XMS_ITS | Encounter Summary ---
Author Organization [facility] Address [address] [place] [address] Care Team Providers Care Seals Engraver Name Role Phone Wiley Thompson MD Primary Care Provider Kameron Cornejo MD Unavailable Katya Lopez NP Unavailable Unavailab Kathy Christopher MD Primary Care Prov ider Be Pacheco NP Unavailable [phone] Maycol Infante MD Unavailable Unavailable Sebastian Martinez MD Unavailable UnavailEve Blackmon MD Unavailable Elisa Romero NP Unavailable [phone] Marcus Murcia DO Unavailable Unavailable Encounter Details Date Type Department Care Team Description 07/24/2018 [facility] Medical Records [address] [place] [address] 19206 Abstract, Provider Social History Tobacco Use Types [...] on filedocumented in this encounter Care Teams Seals Engraver Relationship Specialty Start Date End Date Wiley Thompson MD PCP - General Internal Medicine 06/04/14 01/20/22 aKthy Christopher MD [address] [place] [address] 56208 PCP - General Internal Medicine 01/21/22 Kameron Zuñiga MD Gasoline Pump Mechanic Cardiovascular Disease 08/04/21 Katya Lopez, IRMA Cardiology 08/04/21 01/30/24 Be Pacheco NP [address] [place] [address] 23165 Nurse Practitioner Cardiology 10/17/22 01/30/24 Maycol Infante MD [address] [place] [address] 80901 Specialist Pulmonology 10/19/22 Sebastian Martinez MD [address] [place] [address] 28557 Specialist Ophthalmology 03/21/23 Eve Juan MD [address] [place] [address] [place] [address] Specialist UROGYNECOLOGY 03/21/23 Elisa Romero NP [address] [place] [address] [place] [address] Cardiology 01/31/24 Marcus Murcia DO [address] [place] [address] [place] [address] Specialist Physiatry 03/26/24 documented as of this encounter
--- OUTSIDE RECORDS SUMMARY | 2024-09-30 16:26 | XMS_ITS | Encounter Summary ---
Author Organization [facility] Address [address] [place] [address] Care Team Providers Care Paper Cleaner Name Role Phone Wiley Thompson MD Primary Care Provider Kameron Cornejo MD Unavailable Katya Lopez NP Unavailable Unavailab Kathy Haley MD Primary Care Prov ider Be Pacheco NP Unavailable [phone] Maycol Infante MD Unavailable Unavailable Sebastian Martinez MD Unavailable UnavailEve Blackmon MD Unavailable Elisa Romero NP Unavailable [phone] Marcus Murcia DO Unavailable Unavailable Reason for Visit * Reason Comments E-prescribe Rx Request Encounter Details Date Type Department Care Team Description 04/14/2018 Refill Adult Medicine [address] [id number] Lizzie Pisano PA-C [address] [place] [address] [phone] E-prescribe Rx Request Social History Tobacco Use [...] [facility] / [id number] / Product Type: HMO [id number] documented in this encounter Plan of Treatment Scheduled Orders Name Type Priority Associated Diagnoses Orde r Schedule COMPREHENSIVE METABOLIC PANEL Lab Routine CAD (coronary artery disease), [place] coronary artery Expected: 04/17/2018, Expires: 04/17/2019 LIPID PROFILE Lab Routine CAD (coronary artery disease), [place] coronary artery Expected: 04/17/2018, Expires: 04/17/2019 documented as of this encounter Visit Diagnoses Diagnosis CAD (coronary artery disease), [place] coronary artery Coronary atherosclerosis of [place] coronary artery documented in this encounter Care Teams Paper Cleaner Relationship Specialty Start Date End Date Wiley Thompson MD PCP - General Internal Medicine 06/04/14 01/20/22 Trina Rizo, Kathy Fried MD [address] [place] [address] 23483 PCP - General Internal Medicine 01/21/22 Kameron Zuñiga MD Refrigeration Service Inspector Cardiovascular Disease 08/04/21 Katya Lopez NP Cardiology 08/04/21 01/30/24 Be Pacheco NP [address] [place] [address] 01723 Nurse Practitioner Cardiology 10/17/22 01/30/24 Maycol Infante MD [address] [place] [address] 87059 Specialist Pulmonology 10/19/22 Sebastian Martinez MD [address] [place], [place] [address] Specialist Ophthalmology 03/21/23 Eve Juan MD [address] [place] [address] [place] [address] Specialist UROGYNECOLOGY 03/21/23 Elisa Romero NP [address] [place] [address] [place] [address] Cardiology 01/31/24 Marcus Murcia DO [address] [place] [address] [place] [address] Specialist Physiatry 03/26/24 documented as of this encounter
--- OUTSIDE RECORDS SUMMARY | 2024-09-30 16:26 | XMS_ITS | Encounter Summary ---
Author Organization [facility] Address [address] [place] [address] Care Team Providers Care Self Rising Flour Mixer Name Role Phone Wiley Thompson MD Primary Care Provider Kameron Cornejo MD Unavailable Katya Lopez NP Unavailable Unavailab Kathy Christopher MD Primary Care Prov ider Be Pacheco NP Unavailable [phone] Maycol Infante MD Unavailable Unavailable Sebastian Martinez MD Unavailable UnavailEve Blackmon MD Unavailable Elisa Romero NP Unavailable [phone] Marcus Murcia DO Unavailable Unavailable Encounter Details Date Type Department Care Team Description 02/06/2018 Straightedge Machine Operator Helper Report Medical Records [address] [place] [address] 99869 Abstract, Provider Social History Tobacco Use Types [...] filedocumented in this encounter Care Teams Self Rising Flour Mixer Relationship Specialty Start Date End Date Wiley Thompson MD PCP - General Internal Medicine 06/04/14 01/20/22 Kathy Christopher MD [address] [place] [address] 75774 PCP - General Internal Medicine 01/21/22 Kameron Zuñiga MD Plasma Center Technician Cardiovascular Disease 08/04/21 Katya Lopez NP Cardiology 08/04/21 01/30/24 Be Pacheco NP [address] [place] [address] 40475 Nurse Practitioner Cardiology 10/17/22 01/30/24 Maycol Infante MD [address] [place] [address] 39931 Specialist Pulmonology 10/19/22 Sebastian Martinez MD [address] [place] [address] 53074 Specialist Ophthalmology 03/21/23 Eve Juan MD [address] [place] [address] [place] [address] Specialist UROGYNECOLOGY 03/21/23 Elisa Romero NP [address] [place] [address] [place] [address] Cardiology 01/31/24 Marcus Murcia DO [address] [place] [address] [place] [address] Specialist Physiatry 03/26/24 documented as of this encounter
--- OUTSIDE RECORDS SUMMARY | 2024-09-30 16:26 | XMS_ITS | Encounter Summary ---
Author Organization [facility] Address [address] [place] [address] Care Team Providers Care Can Filler Name Role Phone Wiley Thompson MD Primary Care Provider Kameron Cornejo MD Unavailable Katya Lopez NP Unavailable Unavailab Kathy Haley MD Primary Care Prov ider Be Pacheco NP Unavailable [phone] Maycol Infante MD Unavailable Unavailable Sebastian Martinez MD Unavailable UnavailEve Blackmon MD Unavailable Elisa Romero NP Unavailable [phone] Marcus Murcia DO Unavailable Unavailable Encounter Details Date Type Department Care Team Description 09/03/2020 Old Medical Records Medical Records [address] [place] [address] Abstract, Provider Social History Tobacco Use Types [...] have Coronavirus / COVID-19? No / Unsure 08/06/2020 10:18 AM EST documented as of this encounter Plan of Treatment Not on file documented as of this encounter Visit Diagnoses Not on filedocumented in this encounter Care Teams Can Filler Relationship Specialty Start Date End Date Wiley Thompson MD PCP - General Internal Medicine 06/04/14 01/20/22 Kathy Christopher MD [address] [place] [address] 28134 PCP - General Internal Medicine 01/21/22 Kameron Zuñiga MD Animal Caregiver Cardiovascular Disease 08/04/21 Katya Lopez NP Cardiology 08/04/21 01/30/24 Be Pacheco NP [address] [place] [address] 36006 Nurse Practitioner Cardiology 10/17/22 01/30/24 Maycol Infante MD [address] [place] [address] 31246 Specialist Pulmonology 10/19/22 Sebastian Martinez MD [address] [place] [address] 97474 Specialist Ophthalmology 03/21/23 Eve Juan MD [address] [place] [address] [place] [address] Specialist UROGYNECOLOGY 03/21/23 Elisa Romero NP [address] [place] [address] [place] [address] Cardiology 01/31/24 Marcus Murcia DO [address] [place] [address] [place] [address] Specialist Physiatry 03/26/24 documented as of this encounter
--- OUTSIDE RECORDS SUMMARY | 2024-09-30 16:26 | XMS_ITS | Encounter Summary ---
Author Organization [facility] Address [address] [place] [address] Care Team Providers Care Manager Copy Name Role Phone Wiley Thompson MD Primary Care Provider Kameron Cornejo MD Unavailable Katya Lopez NP Unavailable Unavailab Kathy Haley MD Primary Care Prov ider Be Pacheco NP Unavailable [phone] Maycol Infante MD Unavailable Unavailable Sebastian Martinez MD Unavailable UnavailEve Blackmon MD Unavailable Elisa Romero NP Unavailable [phone] Marcus Murcia DO Unavailable Unavailable Encounter Details Date Type Department Care Team Description 03/10/2016 Orders Only Adult Medicine [address] [id number] Wiley Thompson MD Iron deficiency anemia due [...] [facility] 03/10/2016 H Duncan Sharp MD [facility] [address] [place] [address] documented in this encounter Visit Diagnoses Diagnosis Iron deficiency anemia due to chronic blood loss Iron deficiency anemia secondary to blood loss (chronic) documented in this encounter Care Teams Manager Copy Relationship Specialty Start Date End Date Wiley Thompson MD PCP - General Internal Medicine 06/04/14 01/20/22 Kathy Christopher MD [address] [place] [address] PCP - General Internal Medicine 01/21/22 Kameron Zuñiga MD Risk Management Consultant Cardiovascular Disease 08/04/21 Katya Lopez NP Cardiology 08/04/21 01/30/24 Be Pacheco NP [address] [place] [address] 67307 Nurse Practitioner Cardiology 10/17/22 01/30/24 Maycol Infante MD [address] [place] [address] 18076 Specialist Pulmonology 10/19/22 Sebastian Martinez MD [address] [place] [address] 27608 Specialist Ophthalmology 03/21/23 Eve Juan MD [address] [place] [address] [place] [address] Specialist UROGYNECOLOGY 03/21/23 Elisa Romero NP [address] [place] [address] [place] [address] Cardiology 01/31/24 Marcus Murcia DO [address] [facility] [place] [address] Specialist Physiatry 03/26/24 documented as of this encounter
--- OUTSIDE RECORDS SUMMARY | 2024-09-30 16:26 | XMS_ITS | Encounter Summary ---
Author Organization [facility] Address [address] [place] [address] Care Team Providers Care Service Center Appraiser Name Role Phone Bri Santacruz MD Primary Care Provider Unavailable Wiley Thompson MD Primary Care Provider Kameron Cornejo MD Unavailable Katya Lopez NP Unavailable Unavailab Kathy Haley MD Primary Care Prov ider Be Pacheco NP Unavailable [phone] Maycol Infante MD Unavailable Unavailable Sebastian Martinez MD Unavailable UnavailEve Blackmon MD Unavailable Elisa Romero NP Unavailable [phone] Marcus Murcia DO Unavailable Unavailable Encounter Details Date Type Department Care Team Description 05/27/2014 Controlled Substance Plan Medical Records [address] [place] [address] Abstract, Provider Social History Tobacco Use Types [...] on filedocumented in this encounter Care Teams Service Center Appraiser Relationship Specialty Start Date End Date Bri Santacruz MD PCP - General Internal Medicine 04/23/12 06/03/14 Wiley Thompson MD PCP - General Internal Medicine 06/04/14 01/20/22 Kathy Christopher MD [address] [place] [address] 65168 PCP - General Internal Medicine 01/21/22 Kameron Zuñiga MD Wood Piler Cardiovascular Disease 08/04/21 Katya Lopez NP Cardiology 08/04/21 01/30/24 Be Pacheco NP [address] [place] [address] 38073 Nurse Practitioner Cardiology 10/17/22 01/30/24 Maycol Infante MD [address] [place] [address] 69391 Specialist Pulmonology 10/19/22 Sebastian Martinez MD [address] [place] [address] 76847 Specialist Ophthalmology 03/21/23 Eve Juan MD [address] [place] [address] [place] [address] Specialist UROGYNECOLOGY 03/21/23 Elisa Romero NP [address] [place] [address] [place] [address] Cardiology 01/31/24 Marcus Murcia DO [address] [place] [address] [place] [address] Specialist Physiatry 03/26/24 documented as of this encounter
--- OUTSIDE RECORDS SUMMARY | 2024-09-30 16:26 | XMS_ITS | Encounter Summary ---
Author Organization [facility] Address [address] [place] [address] Care Team Providers Care Fish Bin Tender Name Role Phone Wiley Thompson MD Primary Care Provider Kameron Cornejo MD Unavailable Katya Lopez NP Unavailable Unavailab Kathy Haley MD Primary Care Prov ider Be Pacheco NP Unavailable [phone] Maycol Infante MD Unavailable Unavailable Sebastian Martinez MD Unavailable UnavailEve Blackmon MD Unavailable Elisa Romero NP Unavailable [phone] Marcus Murcia DO Unavailable Unavailable Reason for Visit * Reason Onset Date Comments refill request 08/01/2018 Encounter Details Date Type Department Care Team Description 08/01/2018 Refill Adult Medicine [address] [address] Wiley Thompson MD refill request Social History [...] N/A Patients current insurance carrier is: Payor: [facility] MCR / Plan: O $0 [facility] [id number] / Product Type: HMO [id number] documented in this encounter Plan of Treatment Not on file documented as of this encounter Visit Diagnoses Not on filedocumented in this encounter Care Teams Fish Bin Tender Relationship Specialty Start Date End Date Wiley Thompson MD PCP - General Internal Medicine 06/04/14 01/20/22 Kathy Christopher MD [address] [place] [address] PCP - General Internal Medicine 01/21/22 Kameron Zuñiga MD Lithographer Helper Cardiovascular Disease 08/04/21 Katya Lopez NP Cardiology 08/04/21 01/30/24 Be Pacheco NP [address] [place] [address] 85957 Nurse Practitioner Cardiology 10/17/22 01/30/24 Maycol Infante MD [address] [place] [address] 73014 Specialist Pulmonology 10/19/22 Sebastian Martinez MD [address] [place], [place] [phone] Specialist Ophthalmology 03/21/23 Eve Juan MD [address] [place] [address] [place] [address] Specialist UROGYNECOLOGY 03/21/23 Elisa Romero NP [address] [place] [address] [place] [address] Cardiology 01/31/24 Marcus Murcia DO [address] [place] [address] [place] [address] Specialist Physiatry 03/26/24 documented as of this encounter
--- OUTSIDE RECORDS SUMMARY | 2024-09-30 16:26 | XMS_ITS | Encounter Summary ---
Author Organization [facility] Address [address] [place] [address] Care Team Providers Care Emotional Disabilities Teacher Name Role Phone Kathy Perez MD Primary Care Prov ider Reason for Visit * Reason Onset Date Comments Referral 09/06/2024 Encounter Details Date Type Department Care Team (Late st Contact Info) Description 09/06/2024 Telephone Adult Medicine [address] [address] Kathy Perez MD [address] [place] [address] Referral Social History Tobacco Use Types Packs/Day [...] Description 10/03/2024 9:50 AM EDT Office Visit [facility] [address] [phone] Kameron Zuñiga MD [address] [address] 01/28/2025 1:15 PM EDT Office Visit [address] [address] Kathy Perez MD [address] [place] [address] documented as of this encounter Visit Diagnoses Not on filedocumented in this encounter Care Teams Emotional Disabilities Teacher Relationship Specialty Start Date End Date Kathy Perez MD [address] [place] [address] PCP - General Internal Medicine 07/22/24 documented as of this encounter
--- OUTSIDE RECORDS SUMMARY | 2024-09-30 16:26 | XMS_ITS | Encounter Summary ---
Author Organization [facility] Address [address] [facility] [address] [place] [address] Phone Care Team Providers Care Merchandise Collector Name Role Phone Kathy Christopher MD Primary Care Provider + Encounter Details Date Type Department Care Team (Late Contact Info) Description 09/30/2024 Telephone [facility] [address] [facility] [address] [place] [phone] Elisa Kiser MA [address] [facility] [address] [place] [address] Social History Tobacco Use Types Packs/Day Years Used Date Smoking Tobacco: Never Assessed Comments Unknown Sex and Gender Information Value Date Recorded Sex Assigned at Not on file Legal Sex Female 5:13 PM EST Gender Identity Not on file Sexual Orientation Not on file documented as of this encounter Miscellaneous Notes * Telephone Encounter - Elisa Kiser MA - 09/30/2024 9:40 AM EDT Patient called back , she's on her way to the hospital . [facility] she is complaining of burning and pain documented in this encounter Plan of Treatment Upcoming Encounters Date Type Department Care Team (Late Contact Info) Description 11/04/2024 2:45 PM EDT Office Visit [facility] [address] [address] Everton Riddle MD [address] [address] documented as of this encounter Visit Diagnoses Not on filedocumented in this encounter Care Teams Merchandise Collector Relationship Specialty Start Date End Date Kathy Christopher MD [address] [place] [address] PCP - General 09/10/24 documented as of this encounter
--- OUTSIDE RECORDS SUMMARY | 2024-09-30 16:26 | XMS_ITS | Encounter Summary ---
Author Organization [facility] Address [address] [place] [address] Care Team Providers Care Director Consumer Affairs Name Role Phone Wiley hTompson MD Primary Care Provider Kameron Cornejo MD Unavailable Katya Lopez NP Unavailable Unavailab Kathy Haley MD Primary Care Prov ider Be Pacheco NP Unavailable Maycol Infante MD Unavailable Unavailable Sebastian Martinez MD Unavailable UnavailEve Blackmon MD Unavailable Elisa Romero NP Unavailable [phone] Marcus Murcia DO Unavailable Unavailable Encounter Details Date Type Department Care Team Description 10/02/2015 Orders Only Adult Medicine - [place] [address] [place] [address] Adam Camp PA Neck pain (Primary Dx) Social History Tobacco Use Types [...] Cervicalgia documented in this encounter Care Teams Director Consumer Affairs Relationship Specialty Start Date End Date Wiley Thompson MD PCP - General Internal Medicine 06/04/14 01/20/22 Kathy Christopher MD [address] [place] [address] PCP - General Internal Medicine 01/21/22 Kameron Zuñiga MD Custom Shoe Designer And Maker Cardiovascular Disease 08/04/21 Katya Lopez NP Cardiology 08/04/21 01/30/24 Be Pacheco NP [address] [place] [address] Nurse Practitioner Cardiology 10/17/22 01/30/24 Maycol Infante MD [address] [place] [address]34 Specialist Pulmonology 10/19/22 Sebastian Martinez MD [address] [place] [address] Specialist Ophthalmology 03/21/23 Eve Juan MD [address] [place] [address] [place] [address] Specialist UROGYNECOLOGY 03/21/23 Elisa Romero NP [address] [place] [address] [place] [address] Cardiology 01/31/24 Marcus Murcia DO [address] [place] [address] [place] [address] Specialist Physiatry 03/26/24 documented as of this encounter
--- OUTSIDE RECORDS SUMMARY | 2024-09-30 16:26 | XMS_ITS | Encounter Summary ---
Author Organization [facility] Address [address] [place] [address] Care Team Providers Care Machine Striper Name Role Phone Kameron Zuñiga MD Unavailable Katya Lopez NP Unavailable Unavailab Kathy Haley MD Primary Care Prov ider Be Pacheco NP Unavailable [phone] Maycol Infante MD Unavailable Unavailable Sebastian Martinez MD Unavailable UnavailEve Blackmon MD Unavailable Elisa Romero NP Unavailable [phone] Marcus Murcia DO Unavailable Unavailable Encounter Details Date Type Department Care Team Description 03/10/2022 Product/Device Technologist Report Medical Records [address] [place] [address] Maycol Infante MD Social History Tobacco Use [...] on filedocumented in this encounter Care Teams Machine Striper Relationship Specialty Start Date End Date Kathy Christopher MD [address] [place] [address] 19505 PCP - General Internal Medicine 01/21/22 Kameron Zuñiga MD Diversional Therapist'S Assistant Cardiovascular Disease 08/04/21 Katya Lopez NP Cardiology 08/04/21 01/30/24 Be Pacheco NP [address] [place] [address] 61253 Nurse Practitioner Cardiology 10/17/22 01/30/24 Maycol Infante MD [address] [place] [address] Specialist Pulmonology 10/19/22 Sebastian Martinez MD [address] [place] [address]67 Specialist Ophthalmology 03/21/23 Eve Juan MD [address] [place] [address] [place] [address] Specialist UROGYNECOLOGY 03/21/23 Elisa Romero NP [address] [place] [address] [place] [address] Cardiology 01/31/24 Marcus Murcia DO [address] [place] [address] [place] [address] Specialist Physiatry 03/26/24 documented as of this encounter
--- OUTSIDE RECORDS SUMMARY | 2024-09-30 16:26 | XMS_ITS | Encounter Summary ---
Author Organization [facility] Address [address] [place] [address] Care Team Providers Care Signal Maintainer Helper Name Role Phone Wiley Thompson MD Primary Care Provider Kameron Cornejo MD Unavailable Katya Lopez NP Unavailable Unavailab Kathy Haley MD Primary Care Prov ider Be Pacheco NP Unavailable [phone] Maycol Infante MD Unavailable Unavailable Sebastian Martinez MD Unavailable UnavailEve Blackmon MD Unavailable Elisa Romero NP Unavailable [phone] Marcus Murcia DO Unavailable Unavailable Reason for Visit * Reason Comments E-prescribe Rx Request Encounter Details Date Type Department Care Team Description 04/27/2020 Refill Adult Medicine [address] [address] Wiley Thompson MD E-prescribe Rx Request Social [...] Patients current insurance carrier is: Payor: [facility] MCR / Plan: O $0 [facility] [id number] / Product Type: HMO [id number] documented in this encounter Plan of Treatment Not on file documented as of this encounter Visit Diagnoses Diagnosis CAD (coronary artery disease), [place] coronary artery Coronary atherosclerosis of [place] coronary artery documented in this encounter Care Teams Signal Maintainer Helper Relationship Specialty Start Date End Date Wiley Thompson MD PCP - General Internal Medicine 06/04/14 01/20/22 Kathy Christopher MD [address] [place] [address] PCP - General Internal Medicine 01/21/22 Kameron Zuñiga MD Environmental Scientist Cardiovascular Disease 08/04/21 Katya Lopez NP Cardiology 08/04/21 01/30/24 Be Pacheco NP [address] [place] [address] 24745 Nurse Practitioner Cardiology 10/17/22 01/30/24 Maycol Infante MD [address] [place] [address]698 Specialist Pulmonology 10/19/22 Sebastian Martinez MD [address] [place], [place] [address] Specialist Ophthalmology 03/21/23 Eve Juan MD [address] [place] [address] [place] [address] Specialist UROGYNECOLOGY 03/21/23 Elisa Romero NP [address] [place] [address] [place] [address] Cardiology 01/31/24 Marcus Murcia DO [address] [place] [address] [place] [address] Specialist Physiatry 03/26/24 documented as of this encounter
--- OUTSIDE RECORDS SUMMARY | 2024-09-30 16:26 | XMS_ITS | Encounter Summary ---
Author Organization [facility] Address [address] [facility] [address] [place] [address] Phone Care Team Providers Care Entry Level Java Developer Name Role Phone Kathy Christopher MD Primary Care Provider + Encounter Details Date Type Department Care Team (Late Contact Info) Description 09/30/2024 Telephone [facility] [address] [facility] [address] [place] [phone] Elisa Kiser MA [address] [facility] [address] [place] [address] Social History Tobacco Use Types Packs/Day Years Used Date Smoking Tobacco: Never Assessed Comments Unknown Sex and Gender Information Value Date Recorded Sex Assigned at Not on file Legal Sex Female 5:13 PM EST Gender Identity Not on file Sexual Orientation Not on file documented as of this encounter Miscellaneous Notes * Telephone Encounter - Elisa Kiser MA - 09/30/2024 9:26 AM EDT Patient calling to report that the antibiotic given to her are not working. She was given cipro 250and she's still is having the same symptoms. Shea would like something different to take . Pls advise documented in this encounter Plan of Treatment Upcoming Encounters Date Type Department Care Team (Late st Contact Info) Description 11/04/2024 2:45 PM EDT Office Visit [facility] P. [address] [address] Everton Riddle MD [address] [address] documented as of this encounter Visit Diagnoses Not on filedocumented in this encounter Care Teams Entry Level Java Developer Relationship Specialty Start Date End Date Kathy Christopher MD [address] [place] [address] PCP - General 09/10/24 documented as of this encounter
--- OUTSIDE RECORDS SUMMARY | 2024-09-30 16:26 | XMS_ITS | Encounter Summary ---
Author Organization [facility] Address [address] [facility] [address] [place] [address] Phone Care Team Providers Care Latex Foam Worker Name Role Phone Kathy Christopher MD Primary Care Provider + Encounter Details Date Type Department Care Team (Late st Contact Info) Description 09/25/2024 Office Communication [facility] [address] [facility] [address] [place] [phone] Benito, Fernanda [address] [facility] [address] [place] [address] Social History Tobacco Use Types Packs/Day Years Used Date Smoking Tobacco: Never Assessed Comments Unknown Sex and Gender Information Value Date Recorded Sex Assigned at Not on file Legal Sex Female 5:13 PM EST Gender Identity Not on file Sexual Orientation Not on file documented as of this encounter Miscellaneous Notes * Telephone Encounter - Nash Conn MD - 09/25/2024 9:43 PM EDT Spoke to pt Sent a script to the pharmacy documented in this encounter Plan of Treatment Upcoming Encounters Date Type Department Care Team (Late st Contact Info) Description 11/04/2024 2:45 PM EDT Office Visit [facility] [address] [place] [address] Everton Riddle MD [address] [phone] documented as of this encounter Visit Diagnoses Not on filedocumented in this encounter Care Teams Latex Foam Worker Relationship Specialty Start Date End Date Kathy Christopher MD [address] [place] [address] PCP - General 09/10/24 documented as of this encounter
--- OUTSIDE RECORDS SUMMARY | 2024-09-30 16:26 | XMS_ITS | Encounter Summary ---
Author Organization [facility] Address [address] [place] [address] Care Team Providers Care Stogy Roller Name Role Phone Kameron Zuñiga MD Unavailable Katya Lopez NP Unavailable Unavailab le Kathy Christopher MD Primary Care Prov ider Be Pacheco NP Unavailable [phone] Maycol Infante MD Unavailable Unavailable Sebastian Martinez MD Unavailable UnavailEve Blackmon MD Unavailable Elisa Romero NP Unavailable [phone] Marcus Murcia DO Unavailable Unavailable Encounter Details Date Type Department Care Team Description 09/16/2022 Upholstery Instructor Report Medical Records [address] [place] [address] Maycol Infante MD Social History Tobacco Use [...] on filedocumented in this encounter Care Teams Stogy Roller Relationship Specialty Start Date End Date Kathy Christopher MD [address] [place] [address] [phone] PCP - General Internal Medicine 01/21/22 Kameron Zuñiga MD Agriculture Consultant Cardiovascular Disease 08/04/21 Katya Lopez NP Cardiology 08/04/21 01/30/24 Be Pacheco NP [address] [place] [address] Nurse Practitioner Cardiology 10/17/22 01/30/24 Maycol Infante MD [address] [place] [address] Specialist Pulmonology 10/19/22 Sebastian Martinez MD [address] [place] [address] Specialist Ophthalmology 03/21/23 Eve Juan MD [address] [place] [address] [place] [address] Specialist UROGYNECOLOGY 03/21/23 Elisa Romero NP [address] [place] [address] [place] [address] Cardiology 01/31/24 Marcus Murcia DO [address] [place] [address] [place] [address] Specialist Physiatry 03/26/24 documented as of this encounter
--- OUTSIDE RECORDS SUMMARY | 2024-09-30 16:26 | XMS_ITS | Encounter Summary ---
Author Organization [facility] Address [address] [place] [address] Care Team Providers Care Press Catcher Name Role Phone Kameron Zuñiga MD Unavailable Katya Lopez NP Unavailable Unavailab Kathy Haley MD Primary Care Prov ider Be Pacheco NP Unavailable [phone] Maycol Infante MD Unavailable Unavailable Sebastian Martinez MD Unavailable UnavailEve Blackmon MD Unavailable Elisa Romero NP Unavailable [phone] Marcus Murcia DO Unavailable Unavailable Reason for Visit * Reason Onset Date Comments pain, chest 02/24/2022 Blood Pressure Elevated 02/24/2022 Encounter Details Date Type Department Care Team Description 02/24/2022 Telephone Cardio [facility] [address] [place] [address] Kameron Zuñiga MD [address] [place], [place] [id number] pain, chest; Blood Pressure Elevated Social History [...] blood pressure has been elevated since last [id number] has been around there since then. States she has also been having headaches and chest pains that she has been taking tylenol to help but has not been doing to much. Wants to speak with nurse documented in this encounter Plan of Treatment Not on file documented as of this encounter Visit Diagnoses Not on filedocumented in this encounter Care Teams Press Catcher Relationship Specialty Start Date End Date Kathy Christopher MD [address] [place] [address]45 PCP - General Internal Medicine 01/21/22 Kameron Zuñiga MD Laboratory Animal Facility Supervisor Cardiovascular Disease 08/04/21 Katya Lopez NP Cardiology 08/04/21 01/30/24 Be Pacheco NP [address] [place] [address] 18361 Nurse Practitioner Cardiology 10/17/22 01/30/24 Maycol Infante MD [address] [place] [address] 09131 Specialist Pulmonology 10/19/22 Sebastian Martinez MD [address] [place] [address] 49536 Specialist Ophthalmology 03/21/23 Eve Juan MD [address] [place] [address] [place] [address] Specialist UROGYNECOLOGY 03/21/23 Elisa Romero NP [address] [place] [address] [place] [address] Cardiology 01/31/24 Marcus Murcia DO [address] [facility] [place] [address] Specialist Physiatry 03/26/24 documented as of this encounter
--- OUTSIDE RECORDS SUMMARY | 2024-09-30 16:26 | XMS_ITS | Encounter Summary ---
Author Organization [facility] Address [address] [place] [address] Care Team Providers Care Industrial Gas Fitter Helper Name Role Phone Wiley Thompson MD Primary Care Provider Kameron Cornejo MD Unavailable Katya Lopez MAINSPRING FORMER ARBOR END Unavailable Unavailab Kathy Christopher MD Primary Care Prov ider Be Pacheco NP Unavailable [phone] Maycol Infante MD Unavailable Unavailable Sebastian Martinez MD Unavailable UnavailEve Blackmon MD Unavailable Elisa Romreo NP Unavailable [phone] Marcus Murcia DO Unavailable Unavailable Encounter Details Date Type Department Care Team Description 12/26/2019 Shredded Filler Machine Wrapper Layer Report Medical Records [address] [place] [address] Maycol Infante MD Social History Tobacco Use [...] on filedocumented in this encounter Care Teams Industrial Gas Fitter Helper Relationship Specialty Start Date End Date Wiley Thompson MD PCP - General Internal Medicine 06/04/14 01/20/22 Kathy Christopher MD [address] [place] [address] 98292 PCP - General Internal Medicine 01/21/22 Kameron Zuñiga MD Proof Load Mechanic Cardiovascular Disease 08/04/21 Katya Lopez, IRMA Cardiology 08/04/21 01/30/24 Be Pacheco NP [address] [place] [address] 43562 Nurse Practitioner Cardiology 10/17/22 01/30/24 Maycol Infante MD [address] [place] [address]32 Specialist Pulmonology 10/19/22 Sebastian Martinez MD [address] [place] [address] 32468 Specialist Ophthalmology 03/21/23 Eve Juan MD [address] [place] [address] [place] [address] Specialist UROGYNECOLOGY 03/21/23 Elisa Romero NP [address] [place] [address] [place] [address] Cardiology 01/31/24 Marcus Murcia DO [address] [place] [address] [place] [address] Specialist Physiatry 03/26/24 documented as of this encounter
--- OUTSIDE RECORDS SUMMARY | 2024-09-30 16:26 | XMS_ITS | Encounter Summary ---
Author Organization [facility] Address [address] [place] [address] Care Team Providers Care Parking Ramp Attendant Name Role Phone Wiley Thompson MD Primary Care Provider Kameron Cornejo MD Unavailable Katya Lopez NP Unavailable Unavailab Kathy Christopher MD Primary Care Prov ider Be Pacheco NP Unavailable [phone] Maycol Infante MD Unavailable Unavailable Sebastina Martinez MD Unavailable UnavailEve Blackmon MD Unavailable Elisa Romero NP Unavailable [phone] Marcus Murcia DO Unavailable Unavailable Encounter Details Date Type Department Care Team Description 04/04/2016 [facility] Medical Records [address] [place] [address] Abstract, Provider Social History Tobacco Use Types [...] on filedocumented in this encounter Care Teams Parking Ramp Attendant Relationship Specialty Start Date End Date Wiley Thompson MD PCP - General Internal Medicine 06/04/14 01/20/22 Ktahy Christopher MD [address] [place] [address] 53895 PCP - General Internal Medicine 01/21/22 Kameron Zuñiga MD Tool Salvage Worker Cardiovascular Disease 08/04/21 Katya Lopez NP Cardiology 08/04/21 01/30/24 Be Pacheco NP [address] [place] [address] 15536 Nurse Practitioner Cardiology 10/17/22 01/30/24 Maycol Infante MD [address] [place] [address] 81434 Specialist Pulmonology 10/19/22 Sebastian Martinez MD [address] [place], [place] [phone] Specialist Ophthalmology 03/21/23 Eve Juan MD [address] [place] [address] [place] [address] Specialist UROGYNECOLOGY 03/21/23 Elisa Romero NP [address] [place] [address] [place] [address] Cardiology 01/31/24 Marcus Murcia DO [address] [place] [address] [place] [address] Specialist Physiatry 03/26/24 documented as of this encounter
--- OUTSIDE RECORDS SUMMARY | 2024-09-30 16:26 | XMS_ITS | Encounter Summary ---
Author Organization [facility] Address [address] [place] [address] Care Team Providers Care Bookstore Clerk Name Role Phone Wiley Thompson MD Primary Care Provider Kameron Cornejo MD Unavailable Katya Lopez PITCH FLAKER Unavailable Unavailab Kathy Christopher MD Primary Care Prov ider Be Pacheco NP Unavailable [phone] Maycol Infante MD Unavailable Unavailable Sebastian Martinez MD Unavailable UnavailEve Blackmon MD Unavailable Elisa Romero NP Unavailable [phone] Marcus Murcia DO Unavailable Unavailable Encounter Details Date Type Department Care Team Description 11/21/2019 Wood Heel Cementer Report Medical Records [address] [place] [address] Maycol Infante MD Social History Tobacco Use [...] on filedocumented in this encounter Care Teams Bookstore Clerk Relationship Specialty Start Date End Date Wiley Thompson MD PCP - General Internal Medicine 06/04/14 01/20/22 Kathy Christopher MD [address] [place] [address]50 PCP - General Internal Medicine 01/21/22 Kameron Zuñiga MD Service Person Cardiovascular Disease 08/04/21 Katya Lopez, IRMA Cardiology 08/04/21 01/30/24 Be Pacheco NP [address] [place] [address] 76929 Nurse Practitioner Cardiology 10/17/22 01/30/24 Maycol Infante MD [address] [place] [address] Specialist Pulmonology 10/19/22 Sebastian Martinez MD [address] [place] [address] Specialist Ophthalmology 03/21/23 Eve Juan MD [address] [place] [address] [place] [address] Specialist UROGYNECOLOGY 03/21/23 Elisa Romero NP [address] [place] [address] [place] [address] Cardiology 01/31/24 Marcus Murcia DO [address] [place] [address] [place] [address] Specialist Physiatry 03/26/24 documented as of this encounter
--- OUTSIDE RECORDS SUMMARY | 2024-09-30 16:26 | XMS_ITS | Encounter Summary ---
Author Organization [facility] Address [address] [place] [address] Care Team Providers Care Segregator Name Role Phone Kameron Zuñiga MD Unavailable Katya Lopez NP Unavailable Unavailab Kathy Christopher MD Primary Care Prov ider Be Pacheco NP Unavailable [phone] Maycol Infante MD Unavailable Unavailable Sebastian Martinez MD Unavailable UnavailEve Blackmon MD Unavailable Elisa Romero NP Unavailable [phone] Marcus Murcia DO Unavailable Unavailable Reason for Visit * Reason Onset Date Comments APPOINTMENT 05/11/2022 Encounter Details Date Type Department Care Team Description 05/11/2022 Telephone Adult Medicine [address] [phone] Kathy Christopher MD [address] [place] [address] [phone] APPOINTMENT Social History Tobacco Use Types Packs/Day [...] on filedocumented in this encounter Care Teams Segregator Relationship Specialty Start Date End Date Kathy Christopher MD [address] [place] [address]34 PCP - General Internal Medicine 01/21/22 Kameron Zuñiga MD Orchestra Director Cardiovascular Disease 08/04/21 Katya Lopez NP Cardiology 08/04/21 01/30/24 Be Pacheco NP [address] [place] [address] 99419 Nurse Practitioner Cardiology 10/17/22 01/30/24 Maycol Infante MD [address] [place] [address] 32452 Specialist Pulmonology 10/19/22 Sebastian Martinez MD [address] [place] [address] 32340 Specialist Ophthalmology 03/21/23 Eve Juan MD [address] [place] [address] [place] [address] Specialist UROGYNECOLOGY 03/21/23 Elias Romero NP [address] [facility] [place] [address] Cardiology 01/31/24 Marcus Murcia DO [address] [facility]ologJ[facility] HospitalJACQUES [place] [address] Specialist Physiatry 03/26/24 documented as of this encounter
--- OUTSIDE RECORDS SUMMARY | 2024-09-30 16:26 | XMS_ITS | Encounter Summary ---
Author Organization [facility] Address [address] [place] [address] Care Team Providers Care Forest Products Teacher Name Role Phone Wiley Thompson MD Primary Care Provider Kameron Cornejo MD Unavailable Katya Lopez NP Unavailable Unavailab Kathy Haley MD Primary Care Prov ider Be Pacheco NP Unavailable [phone] Maycol Infante MD Unavailable Unavailable Sebastian Martinez MD Unavailable UnavailEve Blackmon MD Unavailable Elisa Romero NP Unavailable Marcus Murcia DO Unavailable Unavailable Reason for Visit * Reason Onset Date Comments refill request 05/06/2020 Encounter Details Date Type Department Care Team Description 05/06/2020 Refill Adult Medicine [address] [address] Wiley Thompson MD refill request Social History [...] N/A Patients current insurance carrier is: Payor: [facility] MCR / Plan: [email or web address] $0 [facility] [id number] / Product Type: HMO [id number] documented in this encounter Plan of Treatment Not on file documented as of this encounter Visit Diagnoses Not on filedocumented in this encounter Care Teams Forest Products Teacher Relationship Specialty Start Date End Date Wiley Thompson MD PCP - General Internal Medicine 06/04/14 01/20/22 Kathy Christopher MD [address] [place] [address]20 PCP - General Internal Medicine 01/21/22 Kameron Zuñiga MD Hospital Manager Cardiovascular Disease 08/04/21 Katya Lopez, IRMA Cardiology 08/04/21 01/30/24 Be Pacheco NP [address] [place] [address] 35002 Nurse Practitioner Cardiology 10/17/22 01/30/24 Macyol Infante MD [address] [place] [address] 32087 Specialist Pulmonology 10/19/22 Sebastian Martinez MD [address] [place] [address] Specialist Ophthalmology 03/21/23 Eve Juan MD [address] [place] [address] [place] [address] Specialist UROGYNECOLOGY 03/21/23 Elisa Romero NP [address] [place] [place] [address] [place] [address] Cardiology 01/31/24 Marcus Murcia DO [address] [place] [place] [address] [place] [address] Specialist Physiatry 03/26/24 documented as of this encounter
--- OUTSIDE RECORDS SUMMARY | 2024-09-30 16:26 | XMS_ITS | Encounter Summary ---
Author Organization [facility] Address [address] [place] [address] Care Team Providers Care Jukebox Checker Name Role Phone Bri Santacruz MD Primary Care Provider Unavailable Wiley Thompson MD Primary Care Provider Kameron Cornejo MD Unavailable Katya Lopez NP Unavailable Unavailab Kathy Haley MD Primary Care Prov ider Be Pacheco NP Unavailable Maycol Infante MD Unavailable Unavailable Sebastian Martinez MD Unavailable UnavailEve Blackmon MD Unavailable Elisa Romero NP Unavailable [phone] Marcus Murcia DO Unavailable Unavailable Reason for Visit * Reason Onset Date Comments APPOINTMENT 09/25/2013 Encounter Details Date Type Department Care Team Description 09/25/2013 Telephone Physiatry - [address] [phone] Zahraa Zhang MD [address] [place] [address] [place] [address] APPOINTMENT Social History Tobacco Use Types Packs/Day [...] on filedocumented in this encounter Care Teams Jukebox Checker Relationship Specialty Start Date End Date Bri Santacruz MD PCP - General Internal Medicine 04/23/12 06/03/14 Wiley Thompson MD PCP - General Internal Medicine 06/04/14 01/20/22 Kathy Christopher MD [address] [place] [address]73 PCP - General Internal Medicine 01/21/22 Kameron Zuñiga MD Veneer Taper Cardiovascular Disease 08/04/21 Katya Lopez NP Cardiology 08/04/21 01/30/24 Be Pacheco NP [address] [place] [address] 46504 Nurse Practitioner Cardiology 10/17/22 01/30/24 Maycol Infante MD [address] [place], [place] [phone] Specialist Pulmonology 10/19/22 Sebastian Martinez MD [address] [place] [address] 19071 Specialist Ophthalmology 03/21/23 Eve Juan MD [address] [place] [address] [place] [address] Specialist UROGYNECOLOGY 03/21/23 Elisa Romero NP [address] [place] [address] [place] [address] Cardiology 01/31/24 Marcus Murcia DO [address] [place] [address] [place] [address] Specialist Physiatry 03/26/24 documented as of this encounter
--- OUTSIDE RECORDS SUMMARY | 2024-09-30 16:26 | XMS_ITS | Encounter Summary ---
Author Organization [facility] Address [address] [place] [address] Care Team Providers Care Account Relationship Manager Name Role Phone Kameron Zuñiga MD Unavailable Katya Lopez NP Unavailable Unavailab Kathy Haley MD Primary Care Prov ider Be Pacheco NP Unavailable [phone] Maycol Infante MD Unavailable Unavailable Sebastian Martinez MD Unavailable UnavailEve Blackmon MD Unavailable Elisa Romero NP Unavailable [phone] Marcus Murcia DO Unavailable Unavailable Encounter Details Date Type Department Care Team Description 09/26/2022 SCAN Medical Records [address] [place] [address] Abstract, Provider Social History Tobacco Use Types [...] Date/Time Associated Diagnosis Comments OUTSIDE LAB Routine 09/26/2022 documented in this encounter Results * OUTSIDE LAB (09/26/2022) Provider Abstract LAB documented in this encounter Visit Diagnoses Not on filedocumented in this encounter Care Teams Account Relationship Manager Relationship Specialty Start Date End Date Kathy Christopher MD [address] [place] [address] PCP - General Internal Medicine 01/21/22 Kameron Zuñiga MD Sales Representative Electric Service Cardiovascular Disease 08/04/21 Katya Lopez NP Cardiology 08/04/21 01/30/24 Be Pacheco NP [address] [place] [address] Nurse Practitioner Cardiology 10/17/22 01/30/24 Maycol Infante MD [address] [place] [address] Specialist Pulmonology 10/19/22 Sebastian Martinez MD [address] [place] [address] 23782 Specialist Ophthalmology 03/21/23 Eve Juan MD [address] [place] [address] [place] [address] Specialist UROGYNECOLOGY 03/21/23 Elisa Romero NP [address] [place] [address] [place] [address] Cardiology 01/31/24 Marcus Murcia DO [address] [place] [address] [place] [address] Specialist Physiatry 03/26/24 documented as of this encounter
--- OUTSIDE RECORDS SUMMARY | 2024-09-30 16:26 | XMS_ITS | Encounter Summary ---
Author Organization [facility] Address [address] [place] [address] Care Team Providers Care Lobster Man Name Role Phone Wiley Thompson MD Primary Care Provider Kameron Cornejo MD Unavailable Katya Lopez PARTY PLAN DEMONSTRATOR Unavailable Unavailab Kathy Haley MD Primary Care Prov ider Be Pacheco PARTY PLAN DEMONSTRATOR Unavailable [phone] Maycol Infante MD Unavailable Unavailable Sebastian Martinez MD Unavailable UnavailEve Blackmon MD Unavailable Elisa Romero NP Unavailable [phone] Marcus Murcia DO Unavailable Unavailable Encounter Details Date Type Department Care Team Description 12/07/2018 Bluing Oven Tender Report Medical Records [address] [place] [address] Asya Waller, IRMA Social History Tobacco Use [...] on filedocumented in this encounter Care Teams Lobster Man Relationship Specialty Start Date End Date Wiley Thompson MD PCP - General Internal Medicine 06/04/14 01/20/22 Kathy Christopher MD [address] [place] [address]47 PCP - General Internal Medicine 01/21/22 Kameron Zuñiga MD Silk Examiner Cardiovascular Disease 08/04/21 Katya Lopez, IRMA Cardiology 08/04/21 01/30/24 Be Pacheco NP [address] [place] [address] Nurse Practitioner Cardiology 10/17/22 01/30/24 Maycol Infante MD [address] [place] [address] Specialist Pulmonology 10/19/22 Sebastian Martinez MD [address] [place] [address]5817 Specialist Ophthalmology 03/21/23 Eve Juan MD [address] [place] [address] [place] [address] Specialist UROGYNECOLOGY 03/21/23 Elisa Romero NP [address] [place] [address] [place] [address] Cardiology 01/31/24 Marcus Murcia DO [address] [place] [address] [place] [address] Specialist Physiatry 03/26/24 documented as of this encounter
--- OUTSIDE RECORDS SUMMARY | 2024-09-30 16:26 | XMS_ITS | Encounter Summary ---
Author Organization [facility] Address [address] [place] [address] Care Team Providers Care Hydrography Teacher Name Role Phone Wiley Thompson MD Primary Care Provider Kameron Cornejo MD Unavailable Katya Lopez NP Unavailable Unavailab Kathy Christopher MD Primary Care Prov ider Be Pacheco NP Unavailable [phone] Maycol Infante MD Unavailable Unavailable Sebastian Martinez MD Unavailable UnavailEve Blackmon MD Unavailable Elisa Romero NP Unavailable [phone] Marcus Murcia DO Unavailable Unavailable Encounter Details Date Type Department Care Team Description 12/29/2016 Release of Information Medical Records [address] [place] [address]89 Abstract, Provider Social History Tobacco Use Types [...] on filedocumented in this encounter Care Teams Hydrography Teacher Relationship Specialty Start Date End Date Wiley Thompson MD PCP - General Internal Medicine 06/04/14 01/20/22 Kathy Christopher MD [address] [place] [address] 16019 PCP - General Internal Medicine 01/21/22 Kameron Zuñiga MD Track Repair Supervisor Cardiovascular Disease 08/04/21 Katya Lopez, IRMA Cardiology 08/04/21 01/30/24 Be Pacheco NP [address] [place] [address] 28466 Nurse Practitioner Cardiology 10/17/22 01/30/24 Maycol Infante MD [address] [place] [address]656 Specialist Pulmonology 10/19/22 Sebastian Martinez MD [address] [place] [address] 9[address]16 Specialist Ophthalmology 03/21/23 Eve Juan MD [address] [place] [address] [place] [address] Specialist UROGYNECOLOGY 03/21/23 Elisa Romero NP [address] [place] [address] [place] [address] Cardiology 01/31/24 Marcus Murcia DO [address] [place] [address] [place] [address] Specialist Physiatry 03/26/24 documented as of this encounter
--- OUTSIDE RECORDS SUMMARY | 2024-09-30 16:26 | XMS_ITS | Encounter Summary ---
Author Organization [facility] Address [address] [place] [address] Care Team Providers Care Vice President Of Operations Name Role Phone Kameron Zuñiga MD Unavailable Katya Lopez NP Unavailable Unavailab Kathy Haley MD Primary Care Prov ider Be Pacheco NP Unavailable [phone] Maycol Infante MD Unavailable Unavailable Sebastian Martinez MD Unavailable UnavailEve Blackmon MD Unavailable Elisa Romero NP Unavailable [phone] Marcus Murcia DO Unavailable Unavailable Reason for Visit * Reason Comments E-prescribe Rx Request Encounter Details Date Type Department Care Team Description 08/05/2022 Refill Adult Medicine [address] [phone] Ratna Santa PA-C [address] [place] [address] [phone] E-prescribe Rx Request Social History Tobacco Use [...] Please review pharmacy refill request prescribed by [facility], thank you. * Telephone Encounter - Juan [...] on filedocumented in this encounter Care Teams Vice President Of Operations Relationship Specialty Start Date End Date Kathy Christopher MD [address] [place] [address] PCP - General Internal Medicine 01/21/22 Kameron Zuñiga MD Clinical Secretary Cardiovascular Disease 08/04/21 Katya Lopez NP Cardiology 08/04/21 01/30/24 Be Pacheco NP [address] [place] [address] 47757 Nurse Practitioner Cardiology 10/17/22 01/30/24 Maycol Infante MD [address] [place] [address]689 Specialist Pulmonology 10/19/22 Sebastian Martinez MD [address] [place], [place] [address] Specialist Ophthalmology 03/21/23 Eve Juan MD [address] [place] [address] [place] [address] Specialist UROGYNECOLOGY 03/21/23 Elisa Romero NP [address] [place] [address] [place] [address] Cardiology 01/31/24 Marcus Murcia DO [address] [place] [address] [place] [address] Specialist Physiatry 03/26/24 documented as of this encounter
--- OUTSIDE RECORDS SUMMARY | 2024-09-30 16:26 | XMS_ITS | Encounter Summary ---
Author Organization [facility] Address [address] [place] [address] Care Team Providers Care Ribbon Blocker Name Role Phone Kameron Zuñiga MD Unavailable Katya Lopez NP Unavailable Unavailab Kathy Haley MD Primary Care Prov ider Be Pacheco NP Unavailable [phone] Maycol Infante MD Unavailable Unavailable Sebastian Martinez MD Unavailable UnavailEve Blackmon MD Unavailable Elisa Romero NP Unavailable [phone] Marcus Murcia DO Unavailable Unavailable Reason for Visit * Reason Onset Date Comments hospital follow up 10/03/2022 Encounter Details Date Type Department Care Team Description 10/03/2022 Telephone Cardio PVCA Diag Testing [address] [place], [place] [phone] Kameron Zuñiga MD [address] [place] [address] [phone] hospital follow up Social History Tobacco Use [...] is calling stating she was [facility] on 09/26/22 for congestiveheart failure. documented in this encounter Plan of Treatment Not on file documented as of this encounter Visit Diagnoses Not on filedocumented in this encounter Care Teams Ribbon Blocker Relationship Specialty Start Date End Date Kathy Christopher MD [address] [place] [address] 12716 PCP - General Internal Medicine 01/21/22 Kameron Zuñiga MD Cart Pusher Cardiovascular Disease 08/04/21 Katya Lopez NP Cardiology 08/04/21 01/30/24 Be Pacheco NP [address] [place] [address] 34177 Nurse Practitioner Cardiology 10/17/22 01/30/24 Maycol Infante MD [address] [place] [address] 45482 Specialist Pulmonology 10/19/22 Sebastian Martinez MD [address] [place] [address] 54560 Specialist Ophthalmology 03/21/23 Eve Juan MD [address] [place] [address] [place] [address] Specialist UROGYNECOLOGY 03/21/23 Elisa Romero NP [address] [place] [address] [place] [address] Cardiology 01/31/24 Marcus Murcia DO [address] [facility] [place] [address] Specialist Physiatry 03/26/24 documented as of this encounter
--- OUTSIDE RECORDS SUMMARY | 2024-09-30 16:26 | XMS_ITS | Encounter Summary ---
Author Organization [facility] Address [address] [place] [address] Care Team Providers Care Inspector Printed Circuit Boards Name Role Phone Wiley Thompson MD Primary Care Provider Kameron Cornejo MD Unavailable Katya Lopez LACQUER MACHINE FEEDER Unavailable Unavailab Kathy Haley MD Primary Care Prov ider Be Pacheco LACQUER MACHINE FEEDER Unavailable [phone] Maycol Infante MD Unavailable Unavailable Sebastian Martinez MD Unavailable UnavailEve Blackmon MD Unavailable Elisa Romero NP Unavailable [phone] Marcus Murcia DO Unavailable Unavailable Encounter Details Date Type Department Care Team Description 04/19/2018 Battery Plate Remover Report Medical Records [address] [place] [address] Asya Waller, IRMA Social History Tobacco Use [...] on filedocumented in this encounter Care Teams Inspector Printed Circuit Boards Relationship Specialty Start Date End Date Wiley Thompson MD PCP - General Internal Medicine 06/04/14 01/20/22 Kathy Christopher MD [address] [place] [address] PCP - General Internal Medicine 01/21/22 Kameron Zuñiga MD Core Rescuer Cardiovascular Disease 08/04/21 Katya Lopez, IRMA Cardiology 08/04/21 01/30/24 Be Pacheco NP [address] [place] [address] Nurse Practitioner Cardiology 10/17/22 01/30/24 Maycol Infante MD [address] [place] [address] Specialist Pulmonology 10/19/22 Sebastian Martinez MD [address] [place] [address] Specialist Ophthalmology 03/21/23 Eve Juan MD [address] [place] [address] [place] [address] Specialist UROGYNECOLOGY 03/21/23 Elisa Romero NP [address] [place] [address] [place] [address] Cardiology 01/31/24 Marcus Murcia DO [address] [place] [address] [place] [address] Specialist Physiatry 03/26/24 documented as of this encounter
--- OUTSIDE RECORDS SUMMARY | 2024-09-30 16:26 | XMS_ITS | Encounter Summary ---
Author Organization [facility] Address [address] [place] [address] Care Team Providers Care 411 Directory Assistance Operator Name Role Phone Wiley Thompson MD Primary Care Provider Kameron Cornejo MD Unavailable Katya Lopez NP Unavailable Unavailab Kathy Haley MD Primary Care Prov ider Be Pacheco NP Unavailable [phone] Maycol Infante MD Unavailable Unavailable Sebastian Martinez MD Unavailable UnavailEve Blackmon MD Unavailable Elisa Romero NP Unavailable [phone] Marcus Murcia DO Unavailable Unavailable Encounter Details Date Type Department Care Team Description 04/06/2018 Passenger Service Manager Report Medical Records [address] [place] [id number] Matti Bansal Social History Tobacco Use Types [...] on filedocumented in this encounter Care Teams 411 Directory Assistance Operator Relationship Specialty Start Date End Date Wiley Thompson MD PCP - General Internal Medicine 06/04/14 01/20/22 Kathy Christopher MD [address] [place] [address] PCP - General Internal Medicine 01/21/22 Kameron Zuñiga MD Fiberglass Quality Technician Cardiovascular Disease 08/04/21 Katya Lopez NP Cardiology 08/04/21 01/30/24 Be Pacheco NP [address] [place] [address] Nurse Practitioner Cardiology 10/17/22 01/30/24 Maycol Infante MD [address] [place] [address] Specialist Pulmonology 10/19/22 Sebastian Martinez MD [address] [place] [address] Specialist Ophthalmology 03/21/23 Eve Juan MD [address] [place] [address] [place] [address] Specialist UROGYNECOLOGY 03/21/23 Elisa Romero NP [address] [place] [address] [place] [address] Cardiology 01/31/24 Marcus Murcia DO [address] [place] [address] [place] [address] Specialist Physiatry 03/26/24 documented as of this encounter
--- OUTSIDE RECORDS SUMMARY | 2024-09-30 16:26 | XMS_ITS | Encounter Summary ---
Author Organization [facility] Address [address] [place] [address] Care Team Providers Care Guest Relations Agent Name Role Phone Kameron Zuñiga MD Unavailable Katya Lopez NP Unavailable Unavailab le Kathy Christopher MD Primary Care Prov ider Be Pacheco NP Unavailable [phone] Maycol Infante MD Unavailable Unavailable Sebastian Martinez MD Unavailable UnavailEve Blackmon MD Unavailable Elisa Romero NP Unavailable [phone] Marcus Murcia DO Unavailable Unavailable Encounter Details Date Type Department Care Team Description 01/22/2024 Residential Collections Report Medical Records [address] [place] [address] Pierre Oliva, PAAdelaidaC Social History Tobacco Use [...] on filedocumented in this encounter Care Teams Guest Relations Agent Relationship Specialty Start Date End Date Kathy Christopher MD [address] [place] [address] [phone] PCP - General Internal Medicine 01/21/22 Kameron Zuñiga MD General Labor Cardiovascular Disease 08/04/21 Katya Lopez NP Cardiology 08/04/21 01/30/24 Be Pacheco NP [address] [place] [address] Nurse Practitioner Cardiology 10/17/22 01/30/24 Maycol Infante MD [address] [place] [address] Specialist Pulmonology 10/19/22 Sebastian Martinez MD [address] [place] [address] Specialist Ophthalmology 03/21/23 Eve Juan MD [address] [place] [address] [place] [address] Specialist UROGYNECOLOGY 03/21/23 Elisa Romero NP [address] [place] [address] [place] [address] Cardiology 01/31/24 Marcus Murcia DO [address] [place] [address] [place] [address] Specialist Physiatry 03/26/24 documented as of this encounter
--- OUTSIDE RECORDS SUMMARY | 2024-09-30 16:26 | XMS_ITS | Encounter Summary ---
Author Organization [facility] Address [address] [place] [address] Care Team Providers Care Electronics Engineering Technologist Name Role Phone Wiley Thompson MD Primary Care Provider Kameron Cornejo MD Unavailable Katya Lopez NP Unavailable Unavailab Kathy Christopher MD Primary Care Prov ider Be Pacheco NP Unavailable [phone] Maycol Infante MD Unavailable Unavailable Sebastian Martinez MD Unavailable UnavailEve Blackmon MD Unavailable Elisa Romero NP Unavailable [phone] Marcus Murcia DO Unavailable Unavailable Encounter Details Date Type Department Care Team Description 01/09/2020 Grab Setter Report Medical Records [address] [place] [address] Kartik An MD Social History Tobacco Use [...] on filedocumented in this encounter Care Teams Electronics Engineering Technologist Relationship Specialty Start Date End Date Wiley Thompson MD PCP - General Internal Medicine 06/04/14 01/20/22 Kathy Christopher MD [address] [place] [address] PCP - General Internal Medicine 01/21/22 Kameron Zuñiga MD Center Medical Director Cardiovascular Disease 08/04/21 Katya Lopez, IRMA Cardiology 08/04/21 01/30/24 Be Pacheco NP [address] [place] [address] Nurse Practitioner Cardiology 10/17/22 01/30/24 Maycol Infante MD [address] [place] [address] Specialist Pulmonology 10/19/22 Sebastian Martinez MD [address] [place] [address] Specialist Ophthalmology 03/21/23 Eve Juan MD [address] [place] [address] [place] [address] Specialist UROGYNECOLOGY 03/21/23 Elisa Romero NP [address] [place] [address] [place] [address] Cardiology 01/31/24 Marcus Murcia DO [address] [place] [address] [place] [address] Specialist Physiatry 03/26/24 documented as of this encounter
--- OUTSIDE RECORDS SUMMARY | 2024-09-30 16:26 | XMS_ITS | Encounter Summary ---
Author Organization [facility] Address [address] [place] [address] Care Team Providers Care Sail Lay Out Worker Name Role Phone Kameron Zuñiga MD Unavailable Kathy Christopher MD Primary Care Prov ider Maycol Infante MD Unavailable Unavailable Sebastian Martinez MD Unavailable UnavailEve Blackmon MD Unavailable Elisa Romero NP Unavailable [phone] Marcus Murcia DO Unavailable Unavailable Reason for Visit * Reason Comments E-prescribe Rx Request Encounter Details Date Type Department Care Team Description 03/20/2024 Refill Adult Medicine [address] [id number] Ratna Santa PA-C [address] [place] [address] [phone] E-prescribe Rx Request Social History Tobacco Use [...] encounter Miscellaneous Notes * Telephone Encounter - Ramón Smallwood M.A. - 03/21/2024 12:59 PM EDT Last ov 12/27/2023 next ov 03/26/2024 Lab Results Component Value Date NA 141 06/23/2023 K 3.5 06/23/2023 CO2 28 06/23/2023 CL 108 06/23/2023 BUN 21 06/23/2023 CREAT 1.10 06/23/2023 GLU 92 06/23/2023 CA 8.9 06/23/2023 GFR 51 06/23/2023 * Telephone Encounter - Loli Chowdhury - 03/21/2024 12:51 PM EDT Patient would like script to be: E-PRESCRIBED/FAXED TO PHARMACY WHEN WAS THE PATIENT'S LAST APPOINTMENT IN ADULT MEDICINE? 12/27/2023 WHEN WAS THE LAST TIME THE PATIENT SAW THEIR PCP? 07/04/2023 Does patient have an upcoming appointment? Yes 03/26/2024 (THE MEDICATION REQUESTED IS ON THE MED [...] N/A Patients current insurance carrier is: [facility] M[facility] / Plan: HMO $0 [facility] [id number] / Product Type: HMO [id number] documented in this encounter Plan of Treatment Not on file documented as of this encounter Visit Diagnoses Not on filedocumented in this encounter Care Teams Sail Lay Out Worker Relationship Specialty Start Date End Date Kathy Christopher MD [address] [place] [address] PCP - General Internal Medicine 01/21/22 Kameron Zuñiga MD Resistance Welder Cardiovascular Disease 08/04/21 Maycol Infante MD [address] [place] [address] Specialist Pulmonology 10/19/22 Sebastian Martinez MD [address] [place], [place] [phone] Specialist Ophthalmology 03/21/23 Eve Juan MD [address] [place] [address] [place] [address] Specialist UROGYNECOLOGY 03/21/23 Elisa Romero NP [address] [place] [address] [place] [address] Cardiology 01/31/24 Marcus Murcia DO [address] [place] [address] [place] [address] Specialist Physiatry 03/26/24 documented as of this encounter
--- OUTSIDE RECORDS SUMMARY | 2024-09-30 16:26 | XMS_ITS | Encounter Summary ---
Author Organization [facility] Address [address] [place] [address] Care Team Providers Care Kiln Operator Name Role Phone Kameron Zuñiga MD Unavailable Kathy Christopher MD Primary Care Prov ider Maycol Infante MD Unavailable Unavailable Sebastian Martinez MD Unavailable UnavailEve Blackmon MD Unavailable Elisa Romero NP Unavailable [phone] Marcus Murcia DO Unavailable Unavailable Encounter Details Date Type Department Care Team Description 03/12/2024 Mobile Home Set Up Person Report Medical Records [address] [place] [address] Maycol Infante MD Social History Tobacco Use [...] on filedocumented in this encounter Care Teams Kiln Operator Relationship Specialty Start Date End Date Kathy Christopher MD [address] [place] [address] PCP - General Internal Medicine 01/21/22 Kameron Zuñiga MD J2Ee Android Developer Cardiovascular Disease 08/04/21 Maycol Infante MD [address] [place] [address] Specialist Pulmonology 10/19/22 Sebastian Martinez MD [address] [place], [place] [phone] Specialist Ophthalmology 03/21/23 Eve Juan MD [address] [place] [address] [place] [address] Specialist UROGYNECOLOGY 03/21/23 Elisa Romero NP [address] [place] [address] [place] [address] Cardiology 01/31/24 Marcus Murcia DO [address] [place] [address] [place] [address] Specialist Physiatry 03/26/24 documented as of this encounter
--- OUTSIDE RECORDS SUMMARY | 2024-09-30 16:26 | XMS_ITS | Encounter Summary ---
Author Organization [facility] Address [address] [place] [address] Care Team Providers Care Ground School Instructor Name Role Phone Bri Santacruz MD Primary Care Provider Unavailable Wiley Thompson MD Primary Care Provider Kameron Cornejo MD Unavailable Katya Lopez NP Unavailable Unavailab Kathy Haley MD Primary Care Prov ider Be Pacheco NP Unavailable [phone] Maycol Infante MD Unavailable Unavailable Sebastian Martinez MD Unavailable UnavailEve Blackmon MD Unavailable Elisa Romero NP Unavailable [phone] Marcus Murcia DO Unavailable Unavailable Reason for Visit * Reason Onset Date Comments Headache 12/25/2013 Encounter Details Date Type Department Care Team Description 12/25/2013 Telephone Adult Medicine [address] [phone] Bri Santacruz MD Headache Social History Tobacco [...] had these symptoms?: PCP: Bri Santacruz Payor: [facility] MCR / Plan: HMO $0 [place] / Product Type: O [id number] documented in this encounter Plan of Treatment Not on file documented as of this encounter Visit Diagnoses Not on filedocumented in this encounter Care Teams Ground School Instructor Relationship Specialty Start Date End Date Bri Santacruz MD PCP - General Internal Medicine 04/23/12 06/03/14 Wiley Thompson MD PCP - General Internal Medicine 06/04/14 01/20/22 Kathy Christopher MD [address] [place] [address] PCP - General Internal Medicine 01/21/22 Kameron Zuñiga MD Grade School Teacher Cardiovascular Disease 08/04/21 Katya Lopez NP Cardiology 08/04/21 01/30/24 Be Pacheco NP [address] [place] [address] Nurse Practitioner Cardiology 10/17/22 01/30/24 Maycol Infante MD [address] [place] [address] Specialist Pulmonology 10/19/22 Sebastian Martinez MD [address] [place] [address] Specialist Ophthalmology 03/21/23 Eve Juan MD [address] [place] [address] [place] [address] Specialist UROGYNECOLOGY 03/21/23 Elisa Romero NP [address] [place] [address] [place] [address] Cardiology 01/31/24 Marcus Murcia DO [address] [place] [address] [place] [address] Specialist Physiatry 03/26/24 documented as of this encounter
--- OUTSIDE RECORDS SUMMARY | 2024-09-30 16:26 | XMS_ITS | Encounter Summary ---
Author Organization [facility] Address [address] [phone] Phone Care Team Providers Care Steel Box Toe Inserter Name Role Phone Kathy Christopher MD Primary Care Provider + Encounter Details Date Type Department Care Team (Late st Contact Info) Description 09/27/2024 Orders Only [facility] [address] [address] Everton Riddle MD [address] [phone] Stage 3b chronic kidney disease (HCC); Type 2 diabetes mellitus with diabetic chronic kidney disease (HCC); Renal osteodystrophy Social History Tobacco Use Types Packs/Day Years Used Date Smoking Tobacco: Never Assessed Comments Unknown Sex and Gender Information Value Date Recorded Sex Assigned at Not on file Legal Sex Female 5:13 PM EST Gender Identity Not on file Sexual Orientation Not on file documented as of this encounter Plan of Treatment Upcoming Encounters Date Type Department Care Team (Late st Contact Info) Description 11/04/2024 2:45 PM EDT Office Visit [facility] [address] [phone] Everton Riddle MD [address] [phone] (work) documented as of this encounter Procedures Procedure Name Priority Date/Time Associated Diagnosis Comments PROTEIN / CREATININE RATIO, URINE Routine 09/23/2024 [...] diabetic chronic kidney disease (HCC) Renal osteodystrophy C4 COMPLEMENT Routine 09/23/2024 3:23 [...] diabetic chronic kidney disease (HCC) Renal osteodystrophy PROTEIN ELECTROPHORESIS, SERUM Routine 09/23/2024 3:22 PM EDT Stage 3b chronic kidney disease (HCC) Type 2 diabetes mellitus with diabetic chronic kidney disease (HCC) Renal osteodystrophy CBC Routine 09/23/2024 2:15 PM EDT Stage 3b chronic kidney disease (HCC) Type 2 diabetes mellitus with diabetic chronic kidney disease (HCC) Renal osteodystrophy documented in this encounter Results * (ABNORMAL) Protein, Total, Random Urine w/Creatinine (Protein/Creat Ratio) (09/23/2024 3:26 PM EDT) Protein, Ur 27 mg/dL [facility] Urine Protein/Creati nine Ratio 0.24(H) <=0.20 mg/mg creat [facility] Creatinine, Urine 112.0 mg/dL [facility] Urine (Urine, Clean Catch) 09/23/2024 3:26 PM EDT 09/23/2024 4:23 PM EDT us Everton Riddle MD LAB URINE ORDERABLES Final Re sult [facility] [address] [place] [address] * (ABNORMAL) Urine Albumin / Creatinine Ratio (09/23/2024 3:26 PM EDT) Creatinine, Urine 112.0 mg/dL [facility] Microalbumin Urine Random 81.4(H) 0.0 - 29.0 mg/L [facility] Microalbumin/Cre atinine Ratio 73(H) <30 mg/g [facility] Urine (Urine, Clean Catch) 09/23/2024 3:26 PM EDT 09/23/2024 4:23 PM EDT Everton Riddle MD LAB URINE ORDERABLES Final Re sult Performing Organization Address [facility] Co de Phone Number [facility] [address] [place] [address] * (ABNORMAL) C4 Complement (09/23/2024 3:23 PM EDT) C4 Complement 50(H) 16 - 47 mg/dL [facility] Blood (Blood, Venous) 09/23/2024 3:23 PM EDT 09/23/2024 4:23 PM EDT Everton Riddle MD LAB BLOOD ORDERABLES Final Re sult Performing Organization Address [facility] de Phone Number [facility] [address] [place] [address] * C3 Complement (09/23/2024 3:23 PM EDT) C3 Complement 176 88 - 201 mg/dL [facility] Blood (Blood, Venous) 09/23/2024 3:23 PM EDT 09/23/2024 4:23 PM EDT Everton Riddle MD LAB BLOOD ORDERABLES Final Re sult Performing Organization Address [facility] de Phone Number [facility] [address] [place] [address] * Hepatitis B core antibody, IgM (09/23/2024 3:23 PM EDT) Hep B Core IgM Negative Negative [facility] Blood (Blood, Venous) 09/23/2024 3:23 PM EDT 09/23/2024 4:23 PM EDT Narrative [facility] - 09/23/2024 8:32 PM EDT Over the counter supplements containing high doses of biotin may interfere with this assay. ??If interference is suspected, patients shoud be retested after refraining from biotin supplements for 72 hours. Everton Riddle MD LAB BLOOD ORDERABLES Final Re sult Performing Organization Address [facility] Co de Phone Number [facility] [address] [place] [address] * (ABNORMAL) Magnesium (09/23/2024 3:23 PM EDT) [facility] Magnesium 1.6(L) 1.9 - 2.6 mg/dL [facility] Blood (Blood, Venous) 09/23/2024 3:23 PM EDT 09/23/2024 4:23 PM EDT Everton Riddle MD LAB BLOOD ORDERABLES Final Re sult Performing Organization Address [facility] Co de Phone Number [facility] [address] [place] [address] * Vitamin D 25 Hydroxy (09/23/2024 3:23 PM EDT) [facility] Vitamin D, 25-OH, Total 48.9 30.0 - 80.0 ng/mL [facility] Blood (Blood, Venous) 09/23/2024 3:23 PM EDT 09/23/2024 4:23 PM EDT Result [facility] Everton Riddle MD LAB BLOOD ORDERABLES Final Re sult Performing Organization Address [facility] Co de Phone Number [facility] [address] [place] [address] * (ABNORMAL) Renal Function Panel (09/23/2024 3:23 PM EDT) [facility] Sodium 144 133 - 145 mmol/L [facility] Potassium 4.0 3.5 - 5.5 mmol/L [facility] Chloride 109 96 - 110 mmol/L [facility] Bicarbonate (CO2) 31 21 - 32 mmol/L [facility] Anion Gap 4 3 - 11 [facility] Glucose 119(H) 70 - 100 mg/dL [facility] BUN 15 5 - 25 mg/dL [facility] Creatinine Serum 1.04 0.50 - 1.10 mg/dL [facility] eGFR 55(L) >=60 mL/min/1. 73m2 [facility] Comment:Calculation based on the?Chronic Kidney Disease Epidemiology Collaboration (CKD-EPI) equation refit?without adjustment for race. BUN/Creatinine Ratio 14.4 [facility] Albumin 3.4 3.2 - 5.0 g/dL [facility] Calcium 9.3 8.5 - 10.5 mg/dL [facility] Phosphorus 3.9 2.5 - 4.5 mg/dL [facility] Blood (Blood, Venous) 09/23/2024 3:23 PM EDT 09/23/2024 4:23 PM EDT Everton Riddle MD LAB BLOOD ORDERABLES Final Re sult [facility] [address] [place] [address] * PTH, Intact (09/23/2024 3:23 PM EDT) PTH 41.7 18.5 - 88.0 pcg/mL [facility] Blood (Blood, Venous) 09/23/2024 3:23 PM EDT 09/23/2024 4:23 PM EDT Everton Riddle MD LAB BLOOD ORDERABLES Final Re sult Performing Organization Address [facility] de Phone Number [facility] [address] [place] [address] * (ABNORMAL) Protein electrophoresis, serum (09/23/2024 3:22 PM EDT) Pathologist [facility] Total Protein 6.4 6.0 - 8.0 g/dL [facility] Albumin 3.4 2.9 - 4.1 g/dL [facility] Ibdcu-1-Twlggequ 0.2 0.1 - 0.5 g/dL [facility] Wypin-3-Onzvorrj 1.2 0.7 - 1.5 g/dL [facility] Beta Globulin 1.0 0.7 - 1.5 g/dL [facility] Gamma Globulin in Serum 0.6(L) 0.7 - 1.9 g/dL [facility] SPEP Interpretation No M-Antonio seen. 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 [facility] Blood (Blood, Venous) 09/23/2024 3:22 PM EDT 09/23/2024 4:23 PM EDT Everton Riddle MD LAB BLOOD ORDERABLES Final Re sult Performing Organization Address [facility] Co de Phone Number [facility] [address] [place] [address] * (ABNORMAL) CBC (09/23/2024 2:15 PM EDT) Pathologist [facility] WBC 9.0 4.8 - 10.8 [facility] RBC 3.70(L) 3.80 - 4.80 M/mcL [facility] Hgb 11.0(L) 11.5 - 16.0 g/dL [facility] Hematocrit 33.8(L) 35.0 - 47.0 % [facility] MCV 92.6 79.0 - 98.0 FL [facility] MCH 30.1 27.0 - 32.0 pcg [facility] MCHC 32.5 32.0 - 37.0 g/dL [facility] RDW 15.8(H) 11.0 - 15.0 % [facility] Platelets 260 130 - 400 K/[facility] MPV 10.6 7.0 - 11.0 FL [facility] nRBC Count 0.0 <1.0 % [facility] NRBC Absolute 0.00 <0.10 [facility] Blood (Blood, Venous) 09/23/2024 2:15 PM EDT 09/23/2024 4:25 PM EDT us Everton Riddle MD LAB BLOOD ORDERABLES Final Re sult [facility] [address] [place] [address] documented in this encounter Visit Diagnoses Diagnosis Stage 3b chronic kidney disease (HCC) 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
--- OUTSIDE RECORDS SUMMARY | 2024-09-30 16:26 | XMS_ITS | Encounter Summary ---
Author Organization [facility] Address [address] [place] [address] Care Team Providers Care Pipe Machine Operator Name Role Phone Kameron Zuñiga MD Unavailable Katya Lopez NP Unavailable Unavailab Kathy Haley MD Primary Care Prov ider Be Pacheco NP Unavailable [phone] Maycol Infante MD Unavailable Unavailable Sebastian Martinez MD Unavailable UnavailEve Blackmon MD Unavailable Elisa Romero NP Unavailable [phone] Marcus Murcia DO Unavailable Unavailable Encounter Details Date Type Department Care Team Description 02/02/2022 Orders Only Cardio PVC POC [address] [facility] [address] [place] [address] Default, Provider Social History Tobacco Use Types [...] Date/Time Associated Diagnosis Comments OUTSIDE LAB Routine 01/31/2022 documented in this encounter Results * OUTSIDE LAB (01/31/2022) Provider Default LAB documented in this encounter Visit Diagnoses Not on filedocumented in this encounter Care Teams Pipe Machine Operator Relationship Specialty Start Date End Date Kathy Christopher MD [address] [place] [address] 78866 PCP - General Internal Medicine 01/21/22 Kameron Zuñiga MD Outside Cutter Hand Cardiovascular Disease 08/04/21 Katya Lopez NP Cardiology 08/04/21 01/30/24 Be Pacheco NP [address] [place] [address] 84164 Nurse Practitioner Cardiology 10/17/22 01/30/24 Maycol Infante MD [address] [place] [address] 29898 Specialist Pulmonology 10/19/22 Sebastian Martinez MD [address] [place] [address] 34300 Specialist Ophthalmology 03/21/23 Eve Juan MD [address] [place] [address] [place] [address] Specialist UROGYNECOLOGY 03/21/23 Elisa Romero NP [address] [place] [address] [place] [address] Cardiology 01/31/24 Marcus Murcia DO [address] [place] [address] [place] [address] Specialist Physiatry 03/26/24 documented as of this encounter
--- OUTSIDE RECORDS SUMMARY | 2024-09-30 16:26 | XMS_ITS | Encounter Summary ---
Author Organization [facility] Address [address] [place] [address] Care Team Providers Care Manager Action Name Role Phone Bri Santacruz MD Primary Care Provider Unavailable Wiley Thompson MD Primary Care Provider Kameron Cornejo MD Unavailable Katya Lopez NP Unavailable Unavailab Kathy Haley MD Primary Care Prov ider Be Pacheco NP Unavailable [phone] Maycol Infante MD Unavailable Unavailable Sebastian Martinez MD Unavailable UnavailEve Blackmon MD Unavailable Elisa Romero NP Unavailable [phone] Marcus Murcia DO Unavailable Unavailable Encounter Details Date Type Department Care Team Description 02/01/2014 [facility] Medical Records [address] [place] [address] Arun Hui MD Social History Tobacco Use [...] filedocumented in this encounter Care Teams Manager Action Relationship Specialty Start Date End Date Bri Santacruz MD PCP - General Internal Medicine 04/23/12 06/03/14 Wiley Thompson MD PCP - General Internal Medicine 06/04/14 01/20/22 Kathy Christopher MD [address] [place] [address] 19017 PCP - General Internal Medicine 01/21/22 Kameron Zuñiga MD Mechanic Recovery Cardiovascular Disease 08/04/21 Katya Lopez NP Cardiology 08/04/21 01/30/24 Be Pacheco NP [address] [place] [address] 67382 Nurse Practitioner Cardiology 10/17/22 01/30/24 Maycol Infante MD [address] [place] [address] 76018 Specialist Pulmonology 10/19/22 Sebastian Martinez MD [address] [place] [address] 98672 Specialist Ophthalmology 03/21/23 Eve Juan MD [address] [place] [address] [place] [address] Specialist UROGYNECOLOGY 03/21/23 Elisa Romero NP [address] [place] [address] [place] [address] Cardiology 01/31/24 Marcus Murcia DO [address] [place] [address] [place] [address] Specialist Physiatry 03/26/24 documented as of this encounter
--- OUTSIDE RECORDS SUMMARY | 2024-09-30 16:27 | XMS_ITS | Encounter Summary ---
Author Organization [facility] Address [address] [place] [address] Care Team Providers Care Milling Machine Tender Name Role Phone Wiley Thompson MD Primary Care Provider Kameron Cornejo MD Unavailable Katya Lopez NP Unavailable Unavailab Kathy Haley MD Primary Care Prov ider Be Pacheco NP Unavailable [phone] Maycol Infante MD Unavailable Unavailable Sebastian Martinez MD Unavailable UnavailEve Blackmon MD Unavailable Elisa Romero NP Unavailable Marcus Murcia DO Unavailable Unavailable Reason for Visit * Reason Comments E-prescribe Rx Request Encounter Details Date Type Department Care Team Description 05/06/2021 Refill Adult Medicine [address] [id number] Pau Shultz PA [address] [place] [address] [phone] E-prescribe Rx Request Social History Tobacco Use [...] N/A Patients current insurance carrier is: [facility] / Plan: HMO $0 [facility] [id number] / Product Type: HMO [id number] documented in this encounter Plan of Treatment Not on file documented as of this encounter Visit Diagnoses Not on filedocumented in this encounter Care Teams Milling Machine Tender Relationship Specialty Start Date End Date Wiley Thompson MD PCP - General Internal Medicine 06/04/14 01/20/22 Kathy Christopher MD [address] [place] [address] 11432 PCP - General Internal Medicine 01/21/22 Kameron Zuñiga MD Weigher And Crusher Cardiovascular Disease 08/04/21 Katya Lopez NP Cardiology 08/04/21 01/30/24 Be Pacheco NP [address] [place] [address] 55973 Nurse Practitioner Cardiology 10/17/22 01/30/24 Maycol Infante MD [address] [place] [address] 54704 Specialist Pulmonology 10/19/22 Sebastian Martinez MD [address] [place] [address] 44439 Specialist Ophthalmology 03/21/23 Eve Juan MD [address] [place] [address] [place] [address] Specialist UROGYNECOLOGY 03/21/23 Elisa Romero NP [address] [place] [address] [place] [address] Cardiology 01/31/24 Marcus Murcia DO [address] [place] [address] [place] [address] Specialist Physiatry 03/26/24 documented as of this encounter
--- OUTSIDE RECORDS SUMMARY | 2024-09-30 16:27 | XMS_ITS | Encounter Summary ---
Author Organization [facility] Address [address] [place] [address] Care Team Providers Care Forge Hand Name Role Phone Kameron Zuñiga MD Unavailable Katya Lopez NP Unavailable Unavailab le Kathy Christopher MD Primary Care Prov ider Be Pacheco NP Unavailable [phone] Maycol Infante MD Unavailable Unavailable Sebastian Martinez MD Unavailable UnavailEve Blackmon MD Unavailable Elisa Romero NP Unavailable [phone] Marcus Murcia DO Unavailable Unavailable Encounter Details Date Type Department Care Team Description 06/07/2023 Cognos Bi Developer Report Medical Records [address] [place] [address] Lalitha Diego, [facility] Social History Tobacco Use Types Packs/Day [...] on filedocumented in this encounter Care Teams Forge Hand Relationship Specialty Start Date End Date Kathy Christopher MD [address] [place] [address] [id number] PCP - General Internal Medicine 01/21/22 Kameron Zuñiga MD Fence Manufacture Supervisor Cardiovascular Disease 08/04/21 Katya Lopez, IRMA Cardiology 08/04/21 01/30/24 Be Pacheco NP [address] [place] [address] 45258 Nurse Practitioner Cardiology 10/17/22 01/30/24 Maycol Infante MD [address] [place] [address] 80913 Specialist Pulmonology 10/19/22 Sebastian Martinez MD [address] [place] [address] Specialist Ophthalmology 03/21/23 Eve Juan MD [address] [place] [address] [place] [address] Specialist UROGYNECOLOGY 03/21/23 Elisa Romero NP [address] [place] [address] [place] [address] Cardiology 01/31/24 Macrus Murcia DO [address] [place] [address] [place] [address] Specialist Physiatry 03/26/24 documented as of this encounter
--- OUTSIDE RECORDS SUMMARY | 2024-09-30 16:27 | XMS_ITS | Encounter Summary ---
Author Organization [facility] Address [address] [place] [address] Care Team Providers Care General Practitioner Name Role Phone Kameron Zuñiga MD Unavailable Katya Lopez NP Unavailable Unavailab Kathy Haley MD Primary Care Prov ider Be Pacheco NP Unavailable [phone] Maycol Infante MD Unavailable Unavailable Sebastian Martinez MD Unavailable UnavailEve Blackmon MD Unavailable Elisa Romero NP Unavailable [phone] Marcus Murcia DO Unavailable Unavailable Encounter Details Date Type Department Care Team Description 02/23/2023 Orders Only Medical Records [address] [place] [address] 756[address] Abstract, Provider Social History Tobacco Use Types [...] on filedocumented in this encounter Care Teams General Practitioner Relationship Specialty Start Date End Date Kathy Christopher MD [address] [place] [address] 92625 PCP - General Internal Medicine 01/21/22 Kameron Zuñiga MD Field Research Associate Cardiovascular Disease 08/04/21 Katya Lopez NP Cardiology 08/04/21 01/30/24 Be Pacheco NP [address] [place] [address] 74617 Nurse Practitioner Cardiology 10/17/22 01/30/24 Maycol Infante MD [address] [place] [address] 33611 Specialist Pulmonology 10/19/22 Sebastian Martinez MD [address] [place] [address] 01391 Specialist Ophthalmology 03/21/23 Eve Juan MD [address] [place] [address] [place] [address] Specialist UROGYNECOLOGY 03/21/23 Elisa Romero NP [address] [place] [address] [place] [address] Cardiology 01/31/24 Marcus Murcia DO [address] [place] [address] [place] [address] Specialist Physiatry 03/26/24 documented as of this encounter
--- OUTSIDE RECORDS SUMMARY | 2024-09-30 16:27 | XMS_ITS | Encounter Summary ---
Author Organization [facility] Address [address] [place] [address] Care Team Providers Care Chronometer Assembler Name Role Phone Wiley Thompson MD Primary Care Provider Kameron Cornejo MD Unavailable Katya Lopez NP Unavailable Unavailab Kathy Haley MD Primary Care Prov ider Be Pacheco NP Unavailable [phone] Maycol Infante MD Unavailable Unavailable Sebastian Martinez MD Unavailable UnavailEve Blackmon MD Unavailable Elisa Romero NP Unavailable [phone] Marcus Murcia DO Unavailable Unavailable Encounter Details Date Type Department Care Team Description 07/24/2021 Hospital Medical Records [address] [place] [address] Abstract, Provider Social History Tobacco Use Types [...] on filedocumented in this encounter Care Teams Chronometer Assembler Relationship Specialty Start Date End Date Wiley Thompson MD PCP - General Internal Medicine 06/04/14 01/20/22 Kathy Christopher MD [address] [place] [address] 86000 PCP - General Internal Medicine 01/21/22 Kameron Zuñiga MD Produce Team Member Cardiovascular Disease 08/04/21 Katya Lopez NP Cardiology 08/04/21 01/30/24 Be Pacheco NP [address] [place] [address] 72124 Nurse Practitioner Cardiology 10/17/22 01/30/24 Maycol Infante MD [address] [place] [address] 29061 Specialist Pulmonology 10/19/22 Sebastian Martinez MD [address] [place] [address] 69553 Specialist Ophthalmology 03/21/23 Eve Juan MD [address] [place] [address] [place] [address] Specialist UROGYNECOLOGY 03/21/23 Elisa Romero NP [address] [place] [address] [place] [address] Cardiology 01/31/24 Marcus Murcia DO [address] [place] [address] [place] [address] Specialist Physiatry 03/26/24 documented as of this encounter
--- OUTSIDE RECORDS SUMMARY | 2024-09-30 16:27 | XMS_ITS | Encounter Summary ---
Author Organization [facility] Address [address] [place] [address] Care Team Providers Care Starbucks Barista Name Role Phone Bri Santacruz MD Primary Care Provider Unavailable Wiley Thompson MD Primary Care Provider Kameron Cornejo MD Unavailable Katya Lopez NP Unavailable Unavailab Kathy Haley MD Primary Care Prov ider Be Pacheco LOCATION WORKER Unavailable [phone] Maycol Infante MD Unavailable Unavailable Sebastian Martinez MD Unavailable UnavailEve Blackmon MD Unavailable Elisa Romero NP Unavailable [phone] Marcus Murcia DO Unavailable Unavailable Encounter Details Date Type Department Care Team Description 07/23/2012 Night Triage Doc Medical Records [address] [place] [address] 9[address]62 Abstract, Provider Social History Tobacco Use Types [...] on filedocumented in this encounter Care Teams Starbucks Barista Relationship Specialty Start Date End Date Bri Santacruz MD PCP - General Internal Medicine 04/23/12 06/03/14 Wiley Thompson MD PCP - General Internal Medicine 06/04/14 01/20/22 Kathy Christopher MD [address] [place] [address] 93375 PCP - General Internal Medicine 01/21/22 Kameron Zuñiga MD Goldbeater Cardiovascular Disease 08/04/21 Katya Lopez, IRMA Cardiology 08/04/21 01/30/24 Be Pacheco NP [address] [place] [address] 99912 Nurse Practitioner Cardiology 10/17/22 01/30/24 Maycol Infante MD [address] [place] [address] 98588 Specialist Pulmonology 10/19/22 Sebastian Martinez MD [address] [place] [address] 86181 Specialist Ophthalmology 03/21/23 Eve Juan MD [address] [place] [address] [place] [address] Specialist UROGYNECOLOGY 03/21/23 Elisa Romero, IRMA [address] [place] [address] [place] [address] Cardiology 01/31/24 Marcus Murcia DO [address] [place] [address] [place] [address] Specialist Physiatry 03/26/24 documented as of this encounter
--- OUTSIDE RECORDS SUMMARY | 2024-09-30 16:27 | XMS_ITS | Clinical Summary ---
Author Organization [facility] Address [address] [place] [address] Care Team Providers Care Plant Etiologist Name Role Phone Kathy Christopher MD Primary [...] age to complete this topic Care Teams Plant Etiologist Relationship Specialty Start Date End Date Kathy Christopher MD [address] [place] [address] PCP - General Internal Medicine 09/14/23
--- OUTSIDE RECORDS SUMMARY | 2024-09-30 16:27 | XMS_ITS | Encounter Summary ---
Author Organization [facility] Address [address] [place] [address] Care Team Providers Care Director Client Services Name Role Phone Wiley Thompson MD Primary Care Provider Kameron Cornejo MD Unavailable Katya Lopez NP Unavailable Unavailab Kathy Haley MD Primary Care Prov ider Be Pacheco NP Unavailable [phone] Maycol Infante MD Unavailable Unavailable Sebastian Martinez MD Unavailable UnavailEve Blackmon MD Unavailable Elisa Romero NP Unavailable [phone] Marcus Murcia DO Unavailable Unavailable Encounter Details Date Type Department Care Team Description 01/29/2021 Online Health And Fitness Coach Report Medical Records [address] [place] [address] Maycol Infante MD Social History Tobacco Use [...] filedocumented in this encounter Care Teams Director Client Services Relationship Specialty Start Date End Date Wiley Thompson MD PCP - General Internal Medicine 06/04/14 01/20/22 Kathy Christopher MD [address] [place] [address] 12223 PCP - General Internal Medicine 01/21/22 Kameron Zuñiga MD Addiction Nurse Cardiovascular Disease 08/04/21 Katya Lopez NP Cardiology 08/04/21 01/30/24 Be Pacheco NP [address] [place] [address] 52782 Nurse Practitioner Cardiology 10/17/22 01/30/24 Maycol Infante MD [address] [place] [address] 74119 Specialist Pulmonology 10/19/22 Sebastian Martinez MD [address] [place] [address] 92059 Specialist Ophthalmology 03/21/23 Eve Juan MD [address] [place] [address] [place] [address] Specialist UROGYNECOLOGY 03/21/23 Elisa Romero NP [address] [place] [address] [place] [address] Cardiology 01/31/24 Marcus Murcia DO [address] [place] [address] [place] [address] Specialist Physiatry 03/26/24 documented as of this encounter
--- OUTSIDE RECORDS SUMMARY | 2024-09-30 16:27 | XMS_ITS | Encounter Summary ---
Author Organization [facility] Address [address] [place] [address] Care Team Providers Care Surgery Attendant Name Role Phone Wiley Thompson MD Primary Care Provider Kameron Cornejo MD Unavailable Katya Lopez NP Unavailable Unavailab Kathy Haley MD Primary Care Prov ider Be Pacheco NP Unavailable [phone] Maycol Infante MD Unavailable Unavailable Sebastian Martinez MD Unavailable UnavailEve Blackmon MD Unavailable Elisa Romero NP Unavailable [phone] Marcus Murcia DO Unavailable Unavailable Encounter Details Date Type Department Care Team Description 07/28/2021 Hospital Medical Records [address] [place] [address] Abstract, Provider Social History Tobacco Use Types [...] on filedocumented in this encounter Care Teams Surgery Attendant Relationship Specialty Start Date End Date Wiley Thompson MD PCP - General Internal Medicine 06/04/14 01/20/22 Kathy Christopher MD [address] [place] [address] 80162 PCP - General Internal Medicine 01/21/22 Kameron Zuñiga MD Lei Maker Cardiovascular Disease 08/04/21 Katya Lopez NP Cardiology 08/04/21 01/30/24 Be Pacheco NP [address] [place] [address] 34901 Nurse Practitioner Cardiology 10/17/22 01/30/24 Maycol Infante MD [address] [place] [address] 02340 Specialist Pulmonology 10/19/22 Sebastian Martinez MD [address] [place] [address] 25846 Specialist Ophthalmology 03/21/23 Eve Juan MD [address] [place] [address] [place] [address] Specialist UROGYNECOLOGY 03/21/23 Elisa Romero NP [address] [place] [address] [place] [address] Cardiology 01/31/24 Marcus Murcia DO [address] [place] [address] [place] [address] Specialist Physiatry 03/26/24 documented as of this encounter
--- OUTSIDE RECORDS SUMMARY | 2024-09-30 16:27 | XMS_ITS | Encounter Summary ---
Author Organization [facility] Address [address] [place] [address] Care Team Providers Care Design Engineering Intern Name Role Phone Kameron Zuñiga MD Unavailable Katya Lopez NP Unavailable Unavailab Kathy Haley MD Primary Care Prov ider Be Pacheco NP Unavailable [phone] Maycol Infante MD Unavailable Unavailable Sebastian Martinez MD Unavailable UnavailEve Blackmon MD Unavailable Elisa Romero NP Unavailable [phone] Marcus Murcia DO Unavailable Unavailable Encounter Details Date Type Department Care Team Description 10/25/2022 [facility] Medical Records [address] [place] [address] Abstract, Provider Social History Tobacco Use Types [...] on filedocumented in this encounter Care Teams Design Engineering Intern Relationship Specialty Start Date End Date Kathy Christopher MD [address] [place] [address] PCP - General Internal Medicine 01/21/22 Kameron Zuñiga MD Rock Breaker Cardiovascular Disease 08/04/21 Katya Lopez NP Cardiology 08/04/21 01/30/24 Be Pacheco NP [address] [place] [address] 33922 Nurse Practitioner Cardiology 10/17/22 01/30/24 Maycol Infante MD [address] [place] [address] 70646 Specialist Pulmonology 10/19/22 Sebastian Martinez MD [address] [place], [place] [address] Specialist Ophthalmology 03/21/23 Eve Juan MD [address] [place] [address] [place] [address] Specialist UROGYNECOLOGY 03/21/23 Elisa Romero NP [address] [place] [address] [place] [address] Cardiology 01/31/24 Marcus Murcia DO [address] [place] [address] [place] [address] Specialist Physiatry 03/26/24 documented as of this encounter
--- OUTSIDE RECORDS SUMMARY | 2024-09-30 16:27 | XMS_ITS | Encounter Summary ---
Author Organization [facility] Address [address] [place] [address] Care Team Providers Care Treatment Plant Operator Name Role Phone Kameron Zuñiga MD Unavailable Katya Lopez NP Unavailable Unavailab Kathy Haley MD Primary Care Prov ider Be Pacheco NP Unavailable [phone] Maycol Infante MD Unavailable Unavailable Sebastian Martinez MD Unavailable UnavailEve Blackmon MD Unavailable Elisa Romero NP Unavailable [phone] Marcus Murcia DO Unavailable Unavailable Encounter Details Date Type Department Care Team Description 10/24/2022 Hospital Medical Records [address] [place] [address] Social History Tobacco Use Types Packs/Day Years [...] on filedocumented in this encounter Care Teams Treatment Plant Operator Relationship Specialty Start Date End Date Kathy Christopher MD [address] [place] [address] 00550 PCP - General Internal Medicine 01/21/22 Kameron Zuñiga MD Graphic Arts Technician Cardiovascular Disease 08/04/21 Katya Lopez NP Cardiology 08/04/21 01/30/24 Be Pacheco NP [address] [place] [address] 03430 Nurse Practitioner Cardiology 10/17/22 01/30/24 Maycol Infante MD [address] [place] [address] 62472 Specialist Pulmonology 10/19/22 Sebastian Martinez MD [address] [place] [address] Specialist Ophthalmology 03/21/23 Eve Juan MD [address] [place] [address] [place] [address] Specialist UROGYNECOLOGY 03/21/23 Elisa Romero NP [address] [place] [address] 38618 Cardiology 01/31/24 Marcus Murcia DO [address] [place] [address] [place] [address] Specialist Physiatry 03/26/24 documented as of this encounter
--- OUTSIDE RECORDS SUMMARY | 2024-09-30 16:27 | XMS_ITS | Encounter Summary ---
Author Organization [facility] Address [address] [place] [address] Care Team Providers Care Project Geophysicist Name Role Phone Lance Lorenzo Primary Care Provider Unavailab Bri Cooper MD Primary Care Provider Unavailable Wiley Thompson MD Primary Care Provider Kameron Cornejo MD Unavailable Katya Lopez NP Unavailable Unavailab Kathy Haley MD Primary Care Prov ider Be Pacheco HAT BLOCKING MACHINE OPERATOR Unavailable Maycol Infante MD Unavailable Unavailable Sebastian Martinez MD Unavailable UnavailEve Blackmon MD Unavailable Elisa Romero NP Unavailable [phone] Marcus Murcia DO Unavailable Unavailable Encounter Details Date Type Department Care Team Description 01/02/2012 Anglesmith Helper Report Medical Records [address] [place] [address] Inderjit Bonilla Social History Tobacco Use Types [...] filedocumented in this encounter Care Teams Project Geophysicist Relationship Specialty Start Date End Date Lance Lorenzo PCP - General Internal Medicine 06/19/11 04/22/12 Bri Santacruz MD PCP - General Internal Medicine 04/23/12 06/03/14 Wiley Thompson MD PCP - General Internal Medicine 06/04/14 01/20/22 Kathy Christopher MD [address] [place] [address] 75771 PCP - General Internal Medicine 01/21/22 Kameron Zuñiga MD Aboriginal Home School Liaison Officer Cardiovascular Disease 08/04/21 Katya Lopez NP Cardiology 08/04/21 01/30/24 Be Pacheco NP [address] [place] [address] 76334 Nurse Practitioner Cardiology 10/17/22 01/30/24 Maycol Infante MD [address] [place] [address] 08681 Specialist Pulmonology 10/19/22 Sebastian Martinez MD [address] [place] [address] 89304 Specialist Ophthalmology 03/21/23 Eve Juan MD [address] [place] [address] [place] [address] Specialist UROGYNECOLOGY 03/21/23 Elisa Romero NP [address] [place] [address] [place] [address] Cardiology 01/31/24 Marcus Murcia DO [address] [place] [address] [place] [address] Specialist Physiatry 03/26/24 documented as of this encounter
--- OUTSIDE RECORDS SUMMARY | 2024-09-30 16:27 | XMS_ITS | Encounter Summary ---
Author Organization [facility] Address [address] [place] [address] Care Team Providers Care Fast Food Shift Lead Name Role Phone Wiley Thompson MD Primary Care Provider Kameron Cornejo MD Unavailable Katya Lopez NP Unavailable Unavailab Kathy Haley MD Primary Care Prov ider Be Pacheco NP Unavailable [phone] Maycol Infnate MD Unavailable Unavailable Sebastian Martinez MD Unavailable UnavailEve Blackmon MD Unavailable Elisa Romero NP Unavailable [phone] Marcus Murcia DO Unavailable Unavailable Encounter Details Date Type Department Care Team Description 07/24/2021 Outboard Motor Mechanic Report Medical Records [address] [place] [address] Abstract, Provider Social History Tobacco Use Types [...] on filedocumented in this encounter Care Teams Fast Food Shift Lead Relationship Specialty Start Date End Date Wiley Thompson MD PCP - General Internal Medicine 06/04/14 01/20/22 Kathy Christopher MD [address] [place] [address] 7[address] PCP - General Internal Medicine 01/21/22 Kameron Zuñiga MD Enterprise Services Manager Cardiovascular Disease 08/04/21 Katya Lopez NP Cardiology 08/04/21 01/30/24 Be Pacheco NP [address] [place] [address] 21200 Nurse Practitioner Cardiology 10/17/22 01/30/24 Maycol Infante MD [address] [place] [address] 11483 Specialist Pulmonology 10/19/22 Sebastian Martinez MD [address] [place] [address] 28503 Specialist Ophthalmology 03/21/23 Eve Juan MD [address] [place] [address] [place] [address] Specialist UROGYNECOLOGY 03/21/23 Elisa Romero NP [address] [place] [address] [place] [address] Cardiology 01/31/24 Marcus Murcia DO [address] [place] [address] [place] [address] Specialist Physiatry 03/26/24 documented as of this encounter
--- OUTSIDE RECORDS SUMMARY | 2024-09-30 16:27 | XMS_ITS | Encounter Summary ---
Author Organization [facility] Address [address] [place] [address] Care Team Providers Care Medical Assistant Per Diem Name Role Phone Kameron Zuñiga MD Unavailable Katya Lopez NP Unavailable Unavailab Kathy Haley MD Primary Care Prov ider Be Pacheco NP Unavailable [phone] Maycol Infante MD Unavailable Unavailable Sebastian Martinez MD Unavailable UnavailEve Blackmon MD Unavailable Elisa Romero NP Unavailable [phone] Marcus Murcia DO Unavailable Unavailable Encounter Details Date Type Department Care Team Description 04/07/2023 Orders Only Medical Records [address] [place] [address] [facility] Social History Tobacco Use Types Packs/Day [...] this encounter Results * OUTSIDE CT (03/30/2023) [facility] RADIOLOGY documented in this encounter Visit Diagnoses Not on filedocumented in this encounter Care Teams Medical Assistant Per Diem Relationship Specialty Start Date End Date Kathy Christopher MD [address] [place] [address] PCP - General Internal Medicine 01/21/22 Kameron Zuñiga MD Assistant Film Editor Cardiovascular Disease 08/04/21 Katya Lopez NP Cardiology 08/04/21 01/30/24 Be Pacheco NP [address] [place] [address] 54609 Nurse Practitioner Cardiology 10/17/22 01/30/24 Maycol Infante MD [address] [place] [address]854 Specialist Pulmonology 10/19/22 Sebastian Martinez MD [address] [place] [address] 0[address]67 Specialist Ophthalmology 03/21/23 Eve Juan MD [address] [place] [address] [place] [address] Specialist UROGYNECOLOGY 03/21/23 Elisa Romero NP [address] [place] [address] [place] [address] Cardiology 01/31/24 Marcus Murcia DO [address] [place] [address] [place] [address] Specialist Physiatry 03/26/24 documented as of this encounter
--- OUTSIDE RECORDS SUMMARY | 2024-09-30 16:27 | XMS_ITS | Encounter Summary ---
Author Organization [facility] Address [address] [place] [address] Care Team Providers Care Top Lift Trimmer Name Role Phone Bri Santacruz MD Primary Care Provider Unavailable Wiley Thompson MD Primary Care Provider Kameron Cornejo MD Unavailable Katya Lopez NP Unavailable Unavailab Kathy Haley MD Primary Care Prov ider Be Pacheco NP Unavailable [phone] Maycol Infante MD Unavailable Unavailable Sebastian Martinez MD Unavailable UnavailEve Blackmon MD Unavailable Elisa Romero NP Unavailable [phone] Marcus Murcia DO Unavailable Unavailable Encounter Details Date Type Department Care Team Description 11/07/2012 Transfer Records Medical Records [address] [place] [address] Abstract, Provider Social History Tobacco Use Types [...] on filedocumented in this encounter Care Teams Top Lift Trimmer Relationship Specialty Start Date End Date Bri Santacruz MD PCP - General Internal Medicine 04/23/12 06/03/14 Wiley Thompson MD PCP - General Internal Medicine 06/04/14 01/20/22 Kathy Christopher MD [address] [place] [address] PCP - General Internal Medicine 01/21/22 Kameron Zuñiga MD Assistant Front Office Manager Cardiovascular Disease 08/04/21 Katya Lopez NP Cardiology 08/04/21 01/30/24 Be Pacheco NP [address] [place] [address] 86778 Nurse Practitioner Cardiology 10/17/22 01/30/24 Maycol Infante MD [address] [place] [address] Specialist Pulmonology 10/19/22 Sebastian Martinez MD [address] [place] [address]117 Specialist Ophthalmology 03/21/23 Eve Juan MD [address] [place] [address] [place] [address] Specialist UROGYNECOLOGY 03/21/23 Elisa Romero NP [address] [place] [address] [place] [address] Cardiology 01/31/24 Marcus Murcia DO [address] [place] [address] [place] [address] Specialist Physiatry 03/26/24 documented as of this encounter
--- OUTSIDE RECORDS SUMMARY | 2024-09-30 16:27 | XMS_ITS | Encounter Summary ---
Author Organization [facility] Address [address] [place] [address] Care Team Providers Care Computer Discovery Teacher Name Role Phone Kameron Zuñiga MD Unavailable Katya Lopez NP Unavailable Unavailab Kathy Haley MD Primary Care Prov ider Be Pacheco NP Unavailable [phone] Maycol Infante MD Unavailable Unavailable Sebastian Martinez MD Unavailable UnavailEve Blackmon MD Unavailable Elisa Romero NP Unavailable [phone] Marcus Murcia DO Unavailable Unavailable Encounter Details Date Type Department Care Team Description 10/21/2022 SCAN Medical Records [address] [place] [address] Abstract, Provider Social History Tobacco Use Types [...] Date/Time Associated Diagnosis Comments OUTSIDE LAB Routine 10/21/2022 documented in this encounter Results * OUTSIDE LAB (10/21/2022) Provider Abstract LAB documented in this encounter Visit Diagnoses Not on filedocumented in this encounter Care Teams Computer Discovery Teacher Relationship Specialty Start Date End Date Kathy Christopher MD [address] [place] [address] PCP - General Internal Medicine 01/21/22 Kameron Zuñiga MD V Belt Mold Assembler And Curer Cardiovascular Disease 08/04/21 Katya Lopez NP Cardiology 08/04/21 01/30/24 Be Pacheco NP [address] [place] [address] Nurse Practitioner Cardiology 10/17/22 01/30/24 Maycol Infante MD [address] [place] [address] 53372 Specialist Pulmonology 10/19/22 Sebastian Martinez MD [address] [place] [address] Specialist Ophthalmology 03/21/23 Eve Juan MD [address] [place] [address] [place] [address] Specialist UROGYNECOLOGY 03/21/23 Elisa Romero NP [address] [place] [address] [place] [address] Cardiology 01/31/24 Marcus Murcia DO [address] [place] [address] [place] [address] Specialist Physiatry 03/26/24 documented as of this encounter
--- OUTSIDE RECORDS SUMMARY | 2024-09-30 16:27 | XMS_ITS | Encounter Summary ---
Author Organization [facility] Address [address] [place] [address] Care Team Providers Care Joist Setter Name Role Phone Wiley Thompson MD Primary Care Provider Kameron Cornejo MD Unavailable Katya Lopez NP Unavailable Unavailab Kathy Haley MD Primary Care Prov ider Be Pacheco NP Unavailable [phone] Maycol Infante MD Unavailable Unavailable Sebastian Martinez MD Unavailable UnavailEve Blackmon MD Unavailable Elisa Romero NP Unavailable [phone] Marcus Murcia DO Unavailable Unavailable Reason for Visit * Reason Comments E-prescribe Rx Request Encounter Details Date Type Department Care Team Description 01/20/2021 Refill Adult Medicine [address] [address] Wiley Thompson MD E-prescribe Rx Request Social [...] current insurance carrier is: Payor: [facility] MCR / Plan: [employer] $0 [facility] [id number] / Product Type: HMO [id number] documented in this encounter Plan of Treatment Not on file documented as of this encounter Visit Diagnoses Not on filedocumented in this encounter Care Teams Joist Setter Relationship Specialty Start Date End Date Wiley Thompson MD PCP - General Internal Medicine 06/04/14 01/20/22 Kathy Christopher MD [address] [place] [address] PCP - General Internal Medicine 01/21/22 Kameron Zuñiga MD Finish Specialist Cardiovascular Disease 08/04/21 Katya Lopez, IRMA Cardiology 08/04/21 01/30/24 Be Pacheco NP [address] [place] [address]846 Nurse Practitioner Cardiology 10/17/22 01/30/24 Maycol Infante MD [address] [place] [address]653 Specialist Pulmonology 10/19/22 Sebastian Martinez MD [address] [place], [place] [address] Specialist Ophthalmology 03/21/23 Eve Juan MD [address] [place] [address] [place] [address] Specialist UROGYNECOLOGY 03/21/23 Elisa Romero NP [address] [place] [address] [place] [address] Cardiology 01/31/24 Marcus Murcia DO [address] [place] [address] [place] [address] Specialist Physiatry 03/26/24 documented as of this encounter
--- OUTSIDE RECORDS SUMMARY | 2024-09-30 16:27 | XMS_ITS | Encounter Summary ---
Author Organization [facility] Address [address] [place] [address] Care Team Providers Care Cold Mill Inspector Name Role Phone Wiley Thompson MD Primary Care Provider Kameron Cornejo MD Unavailable Katya Lopez NP Unavailable Unavailab Kathy Christopher MD Primary Care Prov ider Be Pacheco NP Unavailable [phone] Maycol Infante MD Unavailable Unavailable Sebastian Martinez MD Unavailable UnavailEve Blackmon MD Unavailable Elisa Romero NP Unavailable [phone] Marcus Murcia DO Unavailable Unavailable Encounter Details Date Type Department Care Team Description 08/07/2018 [facility] Medical Records [address] [place] [address] Abstract, Provider Social History Tobacco Use Types [...] on filedocumented in this encounter Care Teams Cold Mill Inspector Relationship Specialty Start Date End Date Wiley Thompson MD PCP - General Internal Medicine 06/04/14 01/20/22 Kathy Christopher MD [address] [place] [address] PCP - General Internal Medicine 01/21/22 Kameron Zuñiga MD Human Resources Professional Cardiovascular Disease 08/04/21 Katya Lopez, IRMA Cardiology 08/04/21 01/30/24 Be Pacheco NP [address] [place] [address]20 Nurse Practitioner Cardiology 10/17/22 01/30/24 Myacol Infante MD [address] [place] [address] Specialist Pulmonology 10/19/22 Sebastian Martinez MD [address] [place] [address]8637 Specialist Ophthalmology 03/21/23 Eve Juan MD [address] [place] [address] [place] [address] Specialist UROGYNECOLOGY 03/21/23 Elisa Romero NP [address] [place] [address] [place] [address] Cardiology 01/31/24 Marcus Murcia DO [address] [place] [address] [place] [address] Specialist Physiatry 03/26/24 documented as of this encounter
--- OUTSIDE RECORDS SUMMARY | 2024-09-30 16:27 | XMS_ITS | Encounter Summary ---
Author Organization [facility] Address [address] [place] [address] Care Team Providers Care Copier Operator Name Role Phone Wiley Thompson MD Primary Care Provider Kameron Cornejo MD Unavailable Katya Lopez NP Unavailable Unavailab Kathy Christopher MD Primary Care Prov ider Be Pacheco NP Unavailable [phone] Maycol Infante MD Unavailable Unavailable Sebastian Martinez MD Unavailable UnavailEve Blackmon MD Unavailable Elisa Romero NP Unavailable [phone] Marcus Murcia DO Unavailable Unavailable Encounter Details Date Type Department Care Team Description 12/16/2015 Disability Representative Report Medical Records [address] [place] [address] Pallavi Henry MD Social History Tobacco Use [...] on filedocumented in this encounter Care Teams Copier Operator Relationship Specialty Start Date End Date Wiley Thompson MD PCP - General Internal Medicine 06/04/14 01/20/22 Kathy Christopher MD [address] [place] [address] PCP - General Internal Medicine 01/21/22 Kameron Zuñiga MD Contracts Intern Cardiovascular Disease 08/04/21 Katya Lopez NP Cardiology 08/04/21 01/30/24 Be Pacheco NP [address] [place] [address] 85702 Nurse Practitioner Cardiology 10/17/22 01/30/24 Myacol Infante MD [address] [place] [address]19 Specialist Pulmonology 10/19/22 Sebastian Martinez MD [address] [place] [address] Specialist Ophthalmology 03/21/23 Eve Juan MD [address] [place] [address] [place] [address] Specialist UROGYNECOLOGY 03/21/23 Elisa Romero NP [address] [place] [address] [place] [address] Cardiology 01/31/24 Marcus Murcia DO [address] [place] [address] [place] [address] Specialist Physiatry 03/26/24 documented as of this encounter
--- OUTSIDE RECORDS SUMMARY | 2024-09-30 16:27 | XMS_ITS | Encounter Summary ---
Author Organization [facility] Address [address] [place] [address] Care Team Providers Care Preformer Impregnated Fabrics Name Role Phone Kameron Zuñiga MD Unavailable Katya Lopez NP Unavailable Unavailab Kathy Haley MD Primary Care Prov ider Be Pacheco NP Unavailable [phone] Maycol Infante MD Unavailable Unavailable Sebastian Martinez MD Unavailable UnavailEve Blackmon MD Unavailable Elisa Romero NP Unavailable [phone] Marcus Murcia DO Unavailable Unavailable Encounter Details Date Type Department Care Team Description 04/17/2023 Construction Project Manager Report Medical Records [address] [place] [address] Maycol Infante MD Social History Tobacco Use [...] on filedocumented in this encounter Care Teams Preformer Impregnated Fabrics Relationship Specialty Start Date End Date Kathy Christopher MD [address] [place] [address] PCP - General Internal Medicine 01/21/22 Kameron Zuñiga MD Distribution Dispatcher Cardiovascular Disease 08/04/21 Katya Lopez NP Cardiology 08/04/21 01/30/24 Be Pacheco NP [address] [place] [address]29 Nurse Practitioner Cardiology 10/17/22 01/30/24 Maycol Infante MD [address] [place] [address] Specialist Pulmonology 10/19/22 Sebastian Martinez MD [address] [place] [address]147 Specialist Ophthalmology 03/21/23 Eve Juan MD [address] [place] [address] [place] [address] Specialist UROGYNECOLOGY 03/21/23 Elisa Romero NP [address] [place] [address] [place] [address] Cardiology 01/31/24 Marcus Murcia DO [address] [place] [address] [place] [address] Specialist Physiatry 03/26/24 documented as of this encounter
--- OUTSIDE RECORDS SUMMARY | 2024-09-30 16:27 | XMS_ITS | Data Portability ---
Author Organization [employer] Address [address] [place] [phone] Care Team Providers Care Color Card Maker Name Role Phone [facility] Referring Provider [phone] [facility] OTHER Assessment Encounter Date Assessment Date Assessment LastModified by Organization Details LastModified Time 04/20/2024 04/20/2024 I provided real -time medical direction via phone for this encounter and was available for additional phone-based assistance as needed. I have reviewed and agree with the Assessment and Plan as documented by the Auto Clutch Rebuilder. Patient given the opportunity to ask questions. [...] on metoprolol to for rate control. Per card table attendant on the scene, vital signs are stable [...] have any evidence of volume overload per card table attendant on the scene. She has no evidence [...] respiratory specimen 2022 023 [email or web address] Main - [facility], [address] [place] [address], [phone] 3 20:04:39 rapid flu (A+B) 2022 023 [email or web address] Main - [facility], [address] [place] [address], [phone] 3 20:04:40 rapid strep group A, throat 2022 023 [email or web address] Main - [facility], [address] [place] [address], [phone] 3 20:04:38 culture, urine 2022 023 CLEMENT [facility] (Centralized Electronic Ordering - All Locations), Patient Can Go To The Location Of Their Choice, [id number] 3 07:41:06 Referral None recorded. Procedures None recorded. Surgeries None recorded. Imaging None recorded. Medication Orders Levaquin 500 mg tablet 2022 023 [email or web address] [facility], [address] [place] [address], [place], [address], 3 13:34:52 Patient TargetsNo targets recorded. Patient InstructionsNo instructions recorded. Reason for Referral None Reported. Results Created Date Observation Date Name Description Value Unit Range Abnormal Flag Note LastModifiedBy Organization Detail LastModifiedTime 09/28/19 23 09/27/2022 URINE CULTU RE specimen description URINE Not Available [facility] (Centralized Electronic Ordering - All Locations) Patient Can Go To The Location Of Their Choice, [id number] 09/29/2022 07:41:06 09/28/19 23 09/27/2022 URINE CULTU RE special requests NONE Not Available [facility] (Centralized Electronic Ordering - All Locations) Patient Can Go To The Location Of Their Choice, [facility] 09/29/2022 07:41:06 09/28/19 23 09/29/2022 URINE CULTU RE culture NO GROWTH Not Available [facility] (Centralized Electronic Ordering - All Locations) Patient Can Go To The Location Of Their Choice, [facility] 09/29/2022 07:41:06 09/28/19 23 09/29/2022 URINE CULTU RE report status FINAL 2022 Not Available [facility] (Centralized Electronic Ordering - All Locations) Patient Can Go To The Location Of Their Choice, [facility] 09/29/2022 07:41:06 06/17/20 23 06/17/2023 rapid strep group A, throa t Strep negati ve Not Available [facility] ed [address] [place] [address], [address] [place] [address] 06/17/2023 20:04:20 06/17/20 23 06/17/2023 rapid flu (A+B) Flu negati ve Not Available [facility] ed [address] [place] [address], [address] [place] [address] 06/17/2023 20:04:18 06/17/20 23 06/17/2023 rapid SARS CoV 2 Ag, QL IA, respi rator y speci men rapid SARS CoV 2 Ag, QL IA, respiratory specimen negati ve Not Available [facility] ed [address] [place] [address], [address] [place] [address] 06/17/2023 20:04:15 Result Notes None recorded. Medical Equipment None Reported. Allergies Allergen ID Allergen Name Allergen Category Reaction Reaction Severity Criticality Documentation Date Start Date Code Code System Note Provider Name and Address Organization Details Recorded Time 7839 Product containin g penicilli n (product) medicatio n Not available Not available Not available 04/16/2024 76646 8001 SNOMED Not Available [facility] - production [...] Updated DateTime 3 16 /min 162.56 cm 98310.5 6 g 90 /min 96 % 96 % 99.5 [degF] 143 mm[Hg] 68 mm[Hg] Not Available [facility] - production 3 19:48:26 Date Recorded Body weight Respiratory rate Heart rate Body height Body temperature Oxygen saturation Oxygen saturation in Arterial blood by Pulse oximetry Systolic blood pressure Diastolic blood pressure Provider Name and Address Organization Details Last Updated DateTime 4 48072.5 6 g 18 /min 111 /min 162.56 [...] % 98 % 95.7 [degF] 73 /min 25690.5 6 g 16 /min 125 mm[Hg] 67 [...] 9333 Praveen Valdovinos MD Main - [facility] [address] [place] [phone] 09/27/2022 13:30:25 09/29/2022 10:29:50 Acute urinary tract infection 149882867 N39.0 [address] Petra Elmore MD Main - [facility] [address] [place] [phone] 06/17/2023 19:48:24 06/20/2023 12:24:39 Upper respiratory infection 74758240 J06.9 Evaluation in the field was performed by my card table attendant colleague, as noted above, I provided real-time [...] shortness of breath, cough, chest pain, fever. [address] Jackie Ardon MD [facility] [address] [place] [phone] 04/20/2024 14:23:19 04/20/2024 19:15:29 Decreased urine output 669956201 R34 Chronic ki dney disease stage 3 254268951 N18.30 Tachycardia 6030958 R00. 0 Health Concerns Section Related Observation LastModified by Organization Detai ls LastModified Time None Recorded Concern Status LastModified by Organization Details LastModified Time None Recorded Advance Directives Directive None Recorded Payers Encounter Date Sequence Insurance Name Policy Number Policy Wagner Covered Member ID Wagner Member ID Guarantor Name 09/27/2022 1 [facility] - DOS PRIOR TO 2022 - DUAL ELIGIBLE (MEDICARE REPLACEMENT/ADV ANTAGE - HMO) [facility] [id number] Shea J Pares 06/17/2023 1 [facility] - DOS ON OR AFTER 2022 - DUAL ELIGIBLE - RETIREMENT OPTIONS AND ONE CARE (MEDICARE REPLACEMENT/ADV ANTAGE - HMO) [facility] [id number] Shea J Pares 04/20/2024 1 [facility] - DOS ON OR AFTER 2022 - DUAL ELIGIBLE - RETIREMENT OPTIONS AND ONE CARE (MEDICARE REPLACEMENT/ADV ANTAGE - HMO) [facility] [id number] [facility] Pares Notes Date Note Type Note Provider [...] . Member denies F/c/n/v/d Praveen Valdovinos MD [address] [place] [address],[address], [place], [address], [employer] 09/27/2022 13:35:12 023 text/ht ml HPI: Member [...] process visit. ................................... ................................... ................................... ................................... . Auto Clutch Rebuilder Note From Max Clemens: Pt reports dry [...] ................................... . Disposition: Fulfilled Petra Elmore MD [address] [place] [address],[address], [place], [phone], [facility] - [facility] 06/17/2023 20:04:49 024 text/ht ml HPI: mbr with multiple complaints, states experienced SOB last night where she had decided to take a diuretic, denies any Urine output at this time questioning retention , but does mention changing briefs multiple times over night, denies any Abdominal pain pressure or discomfort, no LE edema CP/N/V. per mbr B/P 153/78 HR 111. mbr requesting [facility] for evaluation.Protocol Used: Urinary SymptomsProtocol-Based Disposition: Consider [facility], INK BLENDER, MD/CLOTHES PRESSER triage, PCP, or ED /Urgent Care Visit [...] Comments: Reviewed HPI SEGMD: Visit closed by [facility] end of shift before medic note transferred into [place], so I entered it below: SummarySmartcare visit [...] this was present yesterday in visit with CLOTHES PRESSER as well. Pt afebrile. Lung sounds clear bilaterally. Pt concerned about possible cloudy urine as well. Pt was unable to provide urine specimen for testing. Consulted with [facility]. Casas who advised continuing to monitor symptoms. Reviewed red flags for ED. Pt education provided.Services ProvidedPatient EducationDispositionFulfilledWas patient sent to ED?[facility] consulted on the case?Yes - Solange Casas MD [address] [facility],[address], [place], [address], [place] [employer] - [facility] 04/23/2024 15:04:20 OBGyn Episode No OBEpisode recorded.
--- OUTSIDE RECORDS SUMMARY | 2024-09-30 16:27 | XMS_ITS | Encounter Summary ---
Author Organization [facility] Address [address] [place] [address] Care Team Providers Care Cane Burner Name Role Phone Wiley Thompson MD Primary Care Provider Kameron Cornejo MD Unavailable Katya Lopez MANAGER POLICY Unavailable Unavailab Kathy Haley MD Primary Care Prov ider Be Pacheco NP Unavailable Maycol Infante MD Unavailable Unavailable Sebastian Martinez MD Unavailable UnavailEve Blackmon MD Unavailable Elisa Romero NP Unavailable [phone] Marcus Murcia DO Unavailable Unavailable Encounter Details Date Type Department Care Team Description 09/23/2018 Hospital Medical Records [address] [place] [address] Morro Edwards MD Social History Tobacco Use Types Packs/Day [...] on filedocumented in this encounter Care Teams Cane Burner Relationship Specialty Start Date End Date Wiley Thompson MD PCP - General Internal Medicine 06/04/14 01/20/22 Kathy Christopher MD [address] [place] [address] PCP - General Internal Medicine 01/21/22 Kameron Zuñiga MD [facility] Cardiovascular Disease 08/04/21 Katya Lopez NP Cardiology 08/04/21 01/30/24 Be Pacheco NP [address] [place] [address] Nurse Practitioner Cardiology 10/17/22 01/30/24 Maycol Infante MD [address] [place] [address] Specialist Pulmonology 10/19/22 Sebastian Martinez MD [address] [place] [address] Specialist Ophthalmology 03/21/23 Eve Juan MD [address] [place] [address] [place] [address] Specialist UROGYNECOLOGY 03/21/23 Elisa Romero NP [address] [place] [address] [place] [address] Cardiology 01/31/24 Marcus Murcia DO [address] [place] [address] [place] [address] Specialist Physiatry 03/26/24 documented as of this encounter
--- OUTSIDE RECORDS SUMMARY | 2024-09-30 16:27 | XMS_ITS | Encounter Summary ---
Author Organization [facility] Address [address] [place] [address] Care Team Providers Care Mold Filler Name Role Phone Wiley Thompson MD Primary Care Provider Kameron Cornejo MD Unavailable Katya Lopez NP Unavailable Unavailab Kathy Christopher MD Primary Care Prov ider Be Pacheco NP Unavailable [phone] Maycol Infante MD Unavailable Unavailable Sebastian Martinez MD Unavailable UnavailEve Blackmon MD Unavailable Elisa Romero NP Unavailable [phone] Marcus Murcia DO Unavailable Unavailable Encounter Details Date Type Department Care Team Description 01/05/2016 Machine Ceramic Coater Report Medical Records [address] [place] [address] Seema Canas MD Social History Tobacco Use [...] on filedocumented in this encounter Care Teams Mold Filler Relationship Specialty Start Date End Date Wiley Thompson MD PCP - General Internal Medicine 06/04/14 01/20/22 Kathy Christopher MD [address] [place] [address] PCP - General Internal Medicine 01/21/22 Kameron Zuñiga MD Carpet Winder Cardiovascular Disease 08/04/21 Katya Lopez, IRMA Cardiology 08/04/21 01/30/24 Be Pacheco NP [address] [place] [address] Nurse Practitioner Cardiology 10/17/22 01/30/24 Maycol Infante MD [address] [place] [address] Specialist Pulmonology 10/19/22 Sebastian Martinez MD [address] [place] [address] Specialist Ophthalmology 03/21/23 Eve Juan MD [address] [place] [address] [place] [address] Specialist UROGYNECOLOGY 03/21/23 Elisa Romero NP [address] [place] [address] [place] [address] Cardiology 01/31/24 Marcus Murcia DO [address] [place] [address] [place] [address] Specialist Physiatry 03/26/24 documented as of this encounter
--- OUTSIDE RECORDS SUMMARY | 2024-09-30 16:27 | XMS_ITS | Encounter Summary ---
Author Organization [facility] Address [address] [place] [address] Care Team Providers Care Marble Installer Name Role Phone Bri Santacruz MD Primary Care Provider Unavailable Wiley Thompson MD Primary Care Provider Kameron Cornejo MD Unavailable Katya Lopez NP Unavailable Unavailab Kathy Haley MD Primary Care Prov ider Be Pacheco [employer]AL AIRCREWMAN MECHANICAL Unavailable [phone] Maycol Infante MD Unavailable Unavailable Sebastian Martinez MD Unavailable UnavailEve Blackmon MD Unavailable Elisa Romero NP Unavailable [phone] Marcus Murcia DO Unavailable Unavailable Encounter Details Date Type Department Care Team Description 07/19/2012 Release of Information Medical Records [address] [place] [id number] Abstract, Provider Social History Tobacco Use Types [...] on filedocumented in this encounter Care Teams Marble Installer Relationship Specialty Start Date End Date Bri Santacruz MD PCP - General Internal Medicine 04/23/12 06/03/14 Wiley Thompson MD PCP - General Internal Medicine 06/04/14 01/20/22 Kathy Christopher MD [address] [place] [address] PCP - General Internal Medicine 01/21/22 Kameron Zuñiga MD Assistant Scientist Cardiovascular Disease 08/04/21 Katya Lopez, IRMA Cardiology 08/04/21 01/30/24 Be Pacheco NP [address] [place] [address] Nurse Practitioner Cardiology 10/17/22 01/30/24 Maycol Infante MD [address] [place] [address] Specialist Pulmonology 10/19/22 Sebastian Martinez MD [address] [place] [address] Specialist Ophthalmology 03/21/23 Eve Juan MD [address] [place] [address] [place] [address] Specialist UROGYNECOLOGY 03/21/23 Elisa Romero, IRMA [address] [place] [address] [place] [address] Cardiology 01/31/24 Marcus Murcia DO [address] [place] [address] [place] [address] Specialist Physiatry 03/26/24 documented as of this encounter
--- OUTSIDE RECORDS SUMMARY | 2024-09-30 16:27 | XMS_ITS | Encounter Summary ---
Author Organization [facility] Address [address] [place] [address] Care Team Providers Care Performance Manager Name Role Phone Wiley Thompson MD Primary Care Provider Kameron Cornejo MD Unavailable Katya Lopez CASHIER Unavailable Unavailab Kathy Christopher MD Primary Care Prov ider Be Pacheco NP Unavailable [phone] Maycol Infante MD Unavailable Unavailable Sebastian Martinez MD Unavailable UnavailEve Blackmon MD Unavailable Elisa Romero NP Unavailable [phone] Marcus Murcia DO Unavailable Unavailable Encounter Details Date Type Department Care Team Description 05/21/2021 Gate Operator Report Medical Records [address] [place] [address] Maycol Infante MD Social History Tobacco Use [...] on filedocumented in this encounter Care Teams Performance Manager Relationship Specialty Start Date End Date Wiley Thompson MD PCP - General Internal Medicine 06/04/14 01/20/22 Kathy Christopher MD [address] [place] [address] PCP - General Internal Medicine 01/21/22 Kameron Zuñiga MD Hogshead Hand Cardiovascular Disease 08/04/21 Katya Lopez, IRMA Cardiology 08/04/21 01/30/24 Be Pacheco NP [address] [place] [address] Nurse Practitioner Cardiology 10/17/22 01/30/24 Maycol Infante MD [address] [place] [address] Specialist Pulmonology 10/19/22 Sebastian Martinez MD [address] [place] [address] Specialist Ophthalmology 03/21/23 Eve Juan MD [address] [place] [address] [place] [address] Specialist UROGYNECOLOGY 03/21/23 Elisa Romero NP [address] [place] [address] [place] [address] Cardiology 01/31/24 Marcus Murcia DO [address] [place] [address] [place] [address] Specialist Physiatry 03/26/24 documented as of this encounter
--- OUTSIDE RECORDS SUMMARY | 2024-09-30 16:27 | XMS_ITS | Encounter Summary ---
Author Organization [facility] Address [address] [place] [address] Care Team Providers Care Manufacturing Industrial Engineer Name Role Phone Lance Lorenzo Primary Care Provider Unavailab Bri Cooper MD Primary Care Provider Unavailable Wiley Thompson MD Primary Care Provider Kameron Cornejo MD Unavailable Katya Lopez NP Unavailable Unavailab Kathy Haley MD Primary Care Prov ider Be Pacheco CHECKMAN Unavailable Maycol Infante MD Unavailable Unavailable Sebastian Martinez MD Unavailable UnavailEve Blackmon MD Unavailable Elisa Romero NP Unavailable [phone] Marcus Murcia DO Unavailable Unavailable Encounter Details Date Type Department Care Team Description 01/02/2012 Transportation Design Engineer Report Medical Records [address] [place] [address] Inderjit Bonilla Social History Tobacco Use Types Packs/Day Years Used Date Smoking Tobacco: Never Assessed Sex Assigned at Date Recorded Not on file Job Start Date Occupation Industry Not on file Not on file Not on file documented as of this encounter Plan of Treatment Not on file documented as of this encounter Visit Diagnoses Not on filedocumented in this encounter Care Teams Manufacturing Industrial Engineer Relationship Specialty Start Date End Date Lance Lorenzo PCP - General Internal Medicine 06/19/11 04/22/12 Bri Santacruz MD PCP - General Internal Medicine 04/23/12 06/03/14 Wiley Thompson MD PCP - General Internal Medicine 06/04/14 01/20/22 Kathy Christopher MD [address] [place] [address] PCP - General Internal Medicine 01/21/22 Kameron Zuñiga MD Weight Loss Centre Manager Cardiovascular Disease 08/04/21 Katya Lopez NP Cardiology 08/04/21 01/30/24 Be Pacheco NP [address] [place] [address] Nurse Practitioner Cardiology 10/17/22 01/30/24 Maycol Infante MD [address] [place] [address]36 Specialist Pulmonology 10/19/22 Sebastian Martinez MD [address] [place] [address]99 Specialist Ophthalmology 03/21/23 Eve Juan MD [address] [place] [address] [place] [address] Specialist UROGYNECOLOGY 03/21/23 Elisa Romero NP [address] [place] [address] [place] [address] Cardiology 01/31/24 Marcus Murcia DO [address] [place] [address] [place] [address] Specialist Physiatry 03/26/24 documented as of this encounter
--- OUTSIDE RECORDS SUMMARY | 2024-09-30 16:27 | XMS_ITS | Encounter Summary ---
Author Organization [facility] Address [address] [place] [address] Care Team Providers Care Window Installation Subcontractor Name Role Phone Wiley Thompson MD Primary Care Provider Kameron Cornejo MD Unavailable Katya Lopez NP Unavailable Unavailab Kathy Haley MD Primary Care Prov ider Be Pacheco NP Unavailable [phone] Maycol Infante MD Unavailable Unavailable Sebastian Martinez MD Unavailable UnavailEve Blackmon MD Unavailable Elisa Romero NP Unavailable [phone] Marcus Murcia DO Unavailable Unavailable Reason for Referral * Specialist (Routine) - Closed Specialty Diagnoses / Procedures Referred By Contac t Referred To Contact Cardiology / Cardiac rehabilitation Procedures REFERRAL TO CARDIAC REHABILITATION Wiley Thompson MD [address] [place] [address] External Cardiac Rehab Referral ID Status Reason Start Date Expiration Date V isits Requested Visits Authorized DUPLICATE REQUEST Closed 10/21/2014 10/21/2015 1 1 Reason for Visit * Reason Onset Date Comments Provider Call Back 10/21/2014 Encounter Details Date Type Department Care Team Description 10/21/2014 Telephone Adult [address] [phone] Wiley Thompson MD Provider Call Back Social [...] - 10/21/2014 3:03 PM EDT Harvey from [facility] is looking for a p/a [...] on filedocumented in this encounter Care Teams Window Installation Subcontractor Relationship Specialty Start Date End Date Wiley Thompson MD PCP - General Internal Medicine 06/04/14 01/20/22 Kathy Christopher MD [address] [place] [address] PCP - General Internal Medicine 01/21/22 Kameron Zuñiga MD Anode Adjuster Cardiovascular Disease 08/04/21 Katya Lopez NP Cardiology 08/04/21 01/30/24 Be Pacheco NP [address] [place] [address]645 Nurse Practitioner Cardiology 10/17/22 01/30/24 Maycol Infnate MD [address] [place] [address] Specialist Pulmonology 10/19/22 Sebastian Martinez MD [address] [place], [place] [address] Specialist Ophthalmology 03/21/23 Eve Juan MD [address] [place] [address] [place] [address] Specialist UROGYNECOLOGY 03/21/23 Elisa Romero NP [address] [place] [address] [place] [address] Cardiology 01/31/24 Marcus Murcia DO [address] [place] [address] [place] [address] Specialist Physiatry 03/26/24 documented as of this encounter
--- OUTSIDE RECORDS SUMMARY | 2024-09-30 16:27 | XMS_ITS | Encounter Summary ---
Author Organization [facility] Address [address] [place] [address] Care Team Providers Care Gas Prover Name Role Phone Wiley Thompson MD Primary Care Provider Kameron Cornejo MD Unavailable Katya Lopez NP Unavailable Unavailab Kathy Haley MD Primary Care Prov ider Be Pacheco NP Unavailable [phone] Maycol Infante MD Unavailable Unavailable Sebastian Martinez MD Unavailable UnavailEve Blackmon MD Unavailable Elisa Romero NP Unavailable [phone] Marcus Murcia DO Unavailable Unavailable Encounter Details Date Type Department Care Team Description 03/05/2021 Wheelchair Rental Clerk Report Medical Records [address] [place] [address] Maycol Infante MD Social History Tobacco Use [...] filedocumented in this encounter Care Teams Gas Prover Relationship Specialty Start Date End Date Wiley Thompson MD PCP - General Internal Medicine 06/04/14 01/20/22 Kathy Christopher MD [address] [place] [address] PCP - General Internal Medicine 01/21/22 Kameron Zuñiga MD Welding Foreman Cardiovascular Disease 08/04/21 Katya Lopez NP Cardiology 08/04/21 01/30/24 Be Pacheco NP [address] [place] [address] 12920 Nurse Practitioner Cardiology 10/17/22 01/30/24 Maycol Infante MD [address] [place] [address] Specialist Pulmonology 10/19/22 Sebastian Martinez MD [address] [place] [address]81 Specialist Ophthalmology 03/21/23 Eve Juan MD [address] [place] [address] [place] [address] Specialist UROGYNECOLOGY 03/21/23 Elisa Romero NP [address] [place] [address] [place] [address] Cardiology 01/31/24 Marcus Murcia DO [address] [place] [address] [place] [address] Specialist Physiatry 03/26/24 documented as of this encounter
--- OUTSIDE RECORDS SUMMARY | 2024-09-30 16:27 | XMS_ITS | Encounter Summary ---
Author Organization [facility] Address [address] [place] [address] Care Team Providers Care Carrier Operator Name Role Phone Bri Santacruz MD Primary Care Provider Unavailable Wiley Thompson MD Primary Care Provider Kameron Cornejo MD Unavailable Katya Lopez NP Unavailable Unavailab Kathy Christopher MD Primary Care Prov ider Be Pacheco CLINICAL CYTOGENETICIST Unavailable [phone] Maycol Infante MD Unavailable Unavailable Sebastian Martinez MD Unavailable UnavailEve Blackmon MD Unavailable Elisa Romero NP Unavailable [phone] Marcus Murcia DO Unavailable Unavailable Encounter Details Date Type Department Care Team Description 05/29/2012 Lease Out Worker Report Medical Records [address] [place] [address] Abstract, Provider Social History Tobacco Use Types Packs/Day Years Used Date Smoking Tobacco: Never Assessed Sex Assigned at Date Recorded Not on file Job Start Date Occupation Industry Not on file Not on file Not on file documented as of this encounter Plan of Treatment Not on file documented as of this encounter Visit Diagnoses Not on filedocumented in this encounter Care Teams Carrier Operator Relationship Specialty Start Date End Date Bri Santacruz MD PCP - General Internal Medicine 04/23/12 06/03/14 Wiley Thompson MD PCP - General Internal Medicine 06/04/14 01/20/22 Kathy Christopher MD [address] [place] [address] PCP - General Internal Medicine 01/21/22 Kameron Zuñiga MD Cut Out Machine Operator Cardiovascular Disease 08/04/21 Katya Lopez NP Cardiology 08/04/21 01/30/24 Be Pacheco NP [address] [place] [address] Nurse Practitioner Cardiology 10/17/22 01/30/24 Maycol Infante MD [address] [place] [address] Specialist Pulmonology 10/19/22 Sebastian Martinez MD [address] [place], [place] [phone] Specialist Ophthalmology 03/21/23 Eve Juan MD [address] [place] [address] [place] [address] Specialist UROGYNECOLOGY 03/21/23 Elisa Romero NP [address] [place] [address] [place] [address] Cardiology 01/31/24 Marcus Murcia DO [address] [place] [address] [place] [address] Specialist Physiatry 03/26/24 documented as of this encounter
--- OUTSIDE RECORDS SUMMARY | 2024-09-30 16:27 | XMS_ITS | Encounter Summary ---
Author Organization [facility] Address [address] [place] [address] Care Team Providers Care Materials And Corrosion Engineer Name Role Phone Bri Santacruz MD Primary Care Provider Unavailable Wiley Thompson MD Primary Care Provider Kameron Cornejo MD Unavailable Katya Lopez NP Unavailable Unavailab Kathy Haley MD Primary Care Prov ider Be Pacheco ORACLE TECHNICAL DEVELOPER Unavailable [phone] Maycol Infante MD Unavailable Unavailable Sebastian Martinez MD Unavailable UnavailEve Blackmon MD Unavailable Elisa Romero NP Unavailable [phone] Marcus Murcia DO Unavailable Unavailable Encounter Details Date Type Department Care Team Description 01/24/2013 Release of Information Medical Records [address] [place] [address] Abstract, Provider Social History Tobacco Use Types [...] on filedocumented in this encounter Care Teams Materials And Corrosion Engineer Relationship Specialty Start Date End Date Bri Santacruz MD PCP - General Internal Medicine 04/23/12 06/03/14 Wiley Thompson MD PCP - General Internal Medicine 06/04/14 01/20/22 Kathy Christopher MD [address] [place] [address] PCP - General Internal Medicine 01/21/22 Kameron Zuñiga MD Postal Support Employee Cardiovascular Disease 08/04/21 Katya Lopez, IRMA Cardiology 08/04/21 01/30/24 Be Pacheco NP [address] [place] [address] Nurse Practitioner Cardiology 10/17/22 01/30/24 Maycol Infante MD [address] [place] [address]684 Specialist Pulmonology 10/19/22 Sebastian Martinez MD [address] [place] [address] Specialist Ophthalmology 03/21/23 Eve Jaun MD [address] [place] [address] [place] [address] Specialist UROGYNECOLOGY 03/21/23 Elisa Romero, IRMA [address] [place] [address] [place] [address] Cardiology 01/31/24 Marcus Murcia DO [address] [place] [address] [place] [address] Specialist Physiatry 03/26/24 documented as of this encounter
== END 2024-09-30 14:58 | disposition home or self-care (01) ==
PROVIDERS: Physician Assistant Medical; Emergency Provider Emergency Medicine; PCP Internal Medicine
DX: N39.0 Urinary tract infection, site not specified (principal); R30.0 Dysuria; R35.0 Frequency of micturition; M54.50 Low back pain, unspecified; Z79.899 Other long term (current) drug therapy
CPT/HCPCS: 36415; 80053; 81001; 85025; 87086; 99282; 99283

== ENCOUNTER 2024-10-08 10:23 | Outpatient (AMB) | payer OTHER, SELFPAY ==
--- NOTE | 2024-10-08 10:47 | A.OFFVIS_ITS ---
Intake Visit Reasons: 6m/PVR Intake Note: Patient presents today for follow up on: retention, frequency, and uti Urology Medications: none Blood Thinner: aspirin PVR: 0ml's Safe Expert Required: No Accompanied by: Self / Same As Patient Allergies amoxicillin [Augmentin] Allergy (Mild, Verified 10/08/24 11:32) Rash clavulanic acid [From Augmentin] Allergy (Mild, Verified 10/08/24 11:32) RASH Medication List - Last Reconciled 10/08/24 by VLADIMIR Johns- albuterol sulfate 2.5 mg inhalation Q4H PRN albuterol sulfate 90 mcg/actuation 2 puffs PO Q4H PRN aspirin 81 mg PO DAILY atorvastatin 80 mg PO DAILY azelastine 2 sprays intranasal BID 30 days celecoxib 50 mg PO BID cetirizine 10 mg PO DAILY cholecalciferol (vitamin D3) 50 mcg PO DAILY 30 days dexlansoprazole 60 mg PO DAILY fluticasone propionate 50 mcg/actuation 2 sprays intranasal DAILY 30 days hmjoaupynpf-pglrlofrm-wozuspdu 200-62.5-25 mcg (Trelegy Ellipta) 1 inh inhalation DAILY 30 days isosorbide mononitrate ER 30 mg PO DAILY lidocaine 5% 1 patch topical DAILY melatonin 10 mg PO BEDTIME PRN metformin ER 500 mg PO DAILY methocarbamol 500 mg PO TID PRN metoprolol tartrate 50 mg PO BID nebulizers As directed nitrofurantoin macrocrystal 100 mg PO BID 10 days nitroglycerin 0.4 mg sublingual ONCE PRN Oxygen Home Use As directed sennosides (senna) 17.2 mg (2 x 8.6 mg) PO DAILY PRN 90 days HPI Comments Details: Shea is a very pleasant 79 year old female patient of Dr. Rizo who was accompanied by her daughter at today's office visit. She has a history of pneumonitis, bronchopneumonia, chronic rhinitis, dizziness, headaches, hyperlipidemia, hypertension, diabetes, and COPD. She presents to the office today for follow-up of her lower urinary tract symptoms as well as recurrent urinary tract infections. In discussion with the patient today she reports having seeked urgent care services twice in the last few weeks for UTI like symptoms. She reports despite completion of antibiotic therapy she continues to experience urinary urgency, urinary frequency, and dysuria. She reports completion of cefuroxime and Levaquin as prescribed. In office urinalysis results reviewed with the patient today. 3+ leukocytes and positive nitrates. We discussed sending urine out for further testing for further assessment evaluation. We also discussed importance of calling office with any UTI like symptoms. She otherwise denies incontinence, hematuria, changes to urinary stream, flank pain, fever, and or chills. She discusses her ongoing issues with her neck and impingement to her right lower extremity. She discusses recently having started injection for this issue however does not feel this has been helpful. Previous workup has included a retroperitoneal ultrasound 09/09 noting bilateral kidneys with no calculi, lesions, and or hydronephrosis. The bladder is partially distended. Bilateral ureteral jets are not demonstrated. Pre void bladder volume is approximately 140 mL. Postvoid bladder volume is approximately 40 mL. She does report baseline urinary frequency however does not find this bothersome. PVR 0mls. She otherwise offers no issues or concerns at this time. In review of patient's chart it appears urine cultures are as follows: 08/13 Enterococcus faecalis 09/10 10,000 to 50,000 cfu/ml Mixed bacterial ming characteristic of urogenital contamination. 10/11 < 10,000 cfu/ml [facility] Medical History Obesity (BMI 30.0-34.9) Chronic respiratory failure Asthma-COPD overlap syndrome Incontinence in female History of adenomatous polyp of colon Pneumonitis Bronchopneumonia Hypogammaglobulinemia Chronic rhinitis Dizziness Headache Hyperlipidemia HTN (hypertension) Diabetes COPD (chronic obstructive pulmonary disease) Surgical History S/P right coronary artery (RCA) stent placement H/O colonoscopy History of foot surgery History of toe surgery History of bunionectomy Family History Mother No problems noted. Father No problems noted. 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 services: Yes (grand daughter business services associate) Alcohol intake: never Patient Tobacco Use Status: Former Tobacco user Tobacco use type: Cigarette Advance Directives Date on File: 10/03/23 service: No Current occupational status: retired Sexual orientation: Straight/Heterosexual Gender identity: Female Review of Systems Const Reports as per HPI Eyes Reports no additional complaints ENT Reports as per HPI Card Reports as per HPI Resp Reports as per HPI GI Reports as per HPI Reports as per HPI Musc Reports as per HPI Neuro Reports as per HPI Psych Reports no additional complaints Endo Reports no additional complaints Pradeep/Lymph Reports no additional complaints Aller/Immun Reports no additional complaints Physical Exam Const General: cooperative, healthy appearing, comfortable, no acute distress, well developed, alert and awake Orientation/consciousness: patient oriented x3 Limitations: no limitations HEENT Head: Yes normal to inspection, Yes normocephalic and Yes atraumatic Ears: hearing grossly normal bilaterally Eyes General: appearance normal, both eyes and all related structures Neck Neck: Yes normal visual inspection and Yes trachea midline Chest Chest palpation & inspection: normal inspection of the chest Resp Effort & Inspection: normal respiratory effort and able to speak in complete sentences Cardio Rate: regular rate GI Inspection: Yes normal to inspection General: Yes no CVA tenderness Back/Spine/Pelvis Back: no CVA tenderness Skin General skin exam: no rashes or lesions noted Neuro General: patient oriented x3 Extrem General: Yes normal to inspection Psych Appearance: grossly normal and well kempt Mental Status: mental status grossly normal Speech and movement: Normal speech and movement present and Clear speech present Affect: normal affect Attitude: cooperative Thought process: Normal thought process present Thought content: Normal thought content present Insight: Fair insight present (Psych) Judgement: Fair judgement present (Psych) Office Procedures Post Void Residual Post Residual Void Post Void Residual (PVR): 0 78038-[id number] Void Residual by ultrasound Results AMB Urinalysis, Automated UA Leukoctes 500 Haritha/uL Last Edit by Rd Herrera on 10/08/24 12:03 UA Nitrite Last Edit by Rd Herrera on 10/08/24 12:03 UA Urobilinogen 0.2 mg/dL Last Edit by Rd Herrera on 10/08/24 12:03 UA Protein 15 mg/dL Last Edit by Rd Herrera on 10/08/24 12:03 UA pH 6.[address] on 10/08/24 12:03 UA Blood 25 Jefe/uL Last Edit by Rd Herrera on 10/08/24 12:03 UA Specific [place] 1.[address] on 10/08/24 12:03 UA Ketone Last Edit by Rd Herrera on 10/08/24 12:03 UA Bilirubin 0 mg/dL Last Edit by Rd Herrera on 10/08/24 12:03 UA Glucose 0 mg/dL Last Edit by Rd Herrera on 10/08/24 12:03 Results Reviewed Results Reviewed: Laboratory Last Values Urine pH (Auto) 6.0 10/08/24 12:02 Specific [place] (Auto) 1.015 10/08/24 12:02 Urine Protein (Auto) 15 mg/dL 10/08/24 12:02 Glucose (UA)(Auto) 0 mg/dL 10/08/24 12:02 Urine Blood (Auto) 25 Jefe/uL 10/08/24 12:02 Urine Bilirubin (Auto) 0 mg/dL 10/08/24 12:02 Urine Urobilinogen (Auto) 0.2 mg/dL 10/08/24 12:02 Leukocyte Esterase (Auto) 500 Haritha/uL 10/08/24 12:02 Assessment & Plan Assessment & Plan (1) Lower urinary tract symptoms: Code(s): R39.9 - Unspecified symptoms and signs involving the genitourinary system Category: Medical (2) Urinary tract infection: Code(s): N39.0 - Urinary tract infection, site not specified Category: Medical Qualifiers: Urinary tract infection type: acute cystitis Hematuria presence: without hematuria Qualified Code(s): N30.00 - Acute cystitis without hematuria Plan In office urinalysis results reviewed with the patient today; as noted above; will send for testing. PVR 0 mL Start Macrobid as discussed and prescribed. We discussed importance of calling office and or seeking medical treatment with any UTI like symptoms; we also discussed worsening symptoms. We discussed importance of adequate hydration in relation to recurrent urinary tract infections as well as overall health and well-being. Discussed UTI prevention with D mannose supplement, vitamin-C, increasing fluid intake, behavioral therapy with timed voiding, perineal hygiene and postcoital voiding, and management of constipation with stool softeners and increased fiber intake. Follow-up in 2-4 weeks with PVR; or sooner with any issues, concerns, and or questions. Orders: Orders AMB Urinalysis Automated Today Z13.9 - Encounter for screening, unspecified AMB Post Void Residual by ultrasound Today N39.41 - Urge incontinence, R35.0 - Frequency of micturition Medications: New nitrofurantoin macrocrystal must administer with a meal/food 100 mg PO BID 10 days 20 caps 0RF N39.0 - Urinary tract infection, site not specified Discontinued cefuroxime axetil Discontinued Reason: Doctor's Order 250 mg PO BID 7 days 14 tabs 0RF levofloxacin Discontinued Reason: Doctor's Order 500 mg PO DAILY 5 days 5 tabs 0RF Patient Instructions: The patient had an opportunity to ask questions regarding the treatment plan. All questions were answered. Physical exam, labs, and imaging were discussed and reviewed in detail. As well as risks, benefits, and discussion of treatment choices. No major barriers to understanding were identified. The patient expressed understanding and agreement with the above treatment plan. The patient was made aware they should contact our office by phone for worsening of their current condition, the appearance of new symptoms, or with any questions or concerns. Compliance is encouraged with any medications and follow up testing that is ordered. It is a privilege to be allowed the opportunity to participate in? your urological care.? Again, if you have any questions or concerns If you have any questions or concerns please do not hesitate to contact me. The office is [phone]. This note is constructed using voice recognition software. While every effort has been made to ensure accuracy device sales consultant errors may have been included. Yours sincerely, JAYLA Johns Coding Level of Care Code Est Pt Level 4 (79561) Complex EM visit Add On G2211 Diagnoses Lower urinary tract symptoms R39.9 Acute cystitis without hematuria N30.00 Urinary tract infection type: acute cystitis Hematuria presence: without hematuria CPT Codes Post Residual Void - PVR CPT Code: 60614-Tixe Void Residual by ultrasound ([id number])
--- OUTSIDE RECORDS SUMMARY | 2024-10-08 12:05 | XMS_ITS | Encounter Summary ---
Author Organization [facility] Address [address] [place] [address] Care Team Providers Care Branch Store Manager Name Role Phone Wiley Thompson MD Primary Care Provider Kameron Cornejo MD Unavailable Katya Lopez NP Unavailable Unavailab Kathy Haley MD Primary Care Prov ider Be Pacheco NP Unavailable [phone] Maycol Infante MD Unavailable Unavailable Sebastian Martinez MD Unavailable UnavailEve Blackmon MD Unavailable Elisa Romero NP Unavailable [phone] Marcus Murcia DO Unavailable Unavailable Reason for Visit * Reason Onset Date Comments DME Request 07/11/2019 Encounter Details Date Type Department Care Team Description 07/11/2019 Telephone Adult Medicine [address] [address] Wiley Thompson MD DME Request Social History [...] 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 Recurrent HSV (herpes simplex virus) B00.9 ??? IBS (irritable bowel syndrome) K58.9 ??? Iron deficiency anemia due to chronic blood loss D50.0 ??? CKD (chronic kidney disease) stage 3, GFR 30-59 ml/min ([facility]) N18.3 ??? Chronic shoulder pain M25.519, G89.29 ??? Lower extremity edema R60.0 ??? Subclinical hyperthyroidism E05.90 ??? Obstructive sleep apnea moderate HAYLEY 16 with nocturnal hypoxia G47.33 ??? COPD (chronic obstructive pulmonary disease) ([facility]) J44.9 ??? Supplemental oxygen [...] on filedocumented in this encounter Care Teams Branch Store Manager Relationship Specialty Start Date End Date Wiley Thompson MD PCP - General Internal Medicine 06/04/14 01/20/22 Kathy Christopher MD [address] [place] [address] PCP - General Internal Medicine 01/21/22 Kameron Zuñiga MD Electronic Pagination System Operator Cardiovascular Disease 08/04/21 Katya Lopez NP Cardiology 08/04/21 01/30/24 Be Pacheco NP [address] [place] [address] Nurse Practitioner Cardiology 10/17/22 01/30/24 Maycol Infante MD [address] [place] [address] Specialist Pulmonology 10/19/22 Sebastian Martinez MD [address] [place] [address] Specialist Ophthalmology 03/21/23 Eve Juan MD [address] [place] [address] [place] [address] Specialist UROGYNECOLOGY 03/21/23 Elisa Romero NP [address] [place] [address] [place] [address] Cardiology 01/31/24 Marcus Murcia DO [address] [place] [address] [place] [address] Specialist Physiatry 03/26/24 documented as of this encounter
--- OUTSIDE RECORDS SUMMARY | 2024-10-08 12:05 | XMS_ITS | Encounter Summary ---
Author Organization [facility] Address [address] [place] [address] Care Team Providers Care Custodial Engineer Name Role Phone Wiley Thompson MD Primary Care Provider Kameron Cornejo MD Unavailable Katya Lopez NP Unavailable Unavailab Kathy Haley MD Primary Care Prov ider Be Pacheco NP Unavailable [phone] Maycol Infante MD Unavailable Unavailable Sebastian Martinez MD Unavailable UnavailEve Blackmon MD Unavailable Elisa Romero NP Unavailable [phone] Marcus Murcia DO Unavailable Unavailable Reason for Visit * Reason Onset Date Comments refill request 08/07/2019 Encounter Details Date Type Department Care Team Description 08/07/2019 Refill Adult Medicine [address] [address] Wiley Thompson MD refill request Social History [...] Patients current insurance carrier is: Payor: [facility] MCR / Plan: O $0 [facility] [id number] / Product Type: HMO [id number] documented in this encounter Plan of Treatment Not on file documented as of this encounter Visit Diagnoses Not on filedocumented in this encounter Care Teams Custodial Engineer Relationship Specialty Start Date End Date Wiley Thompson MD PCP - General Internal Medicine 06/04/14 01/20/22 Kathy Christopher MD [address] [place] [address] PCP - General Internal Medicine 01/21/22 Kameron Zuñiga MD Court Stenographer Cardiovascular Disease 08/04/21 Katya Lopez NP Cardiology 08/04/21 01/30/24 Be Pacheco NP [address] [place] [address] Nurse Practitioner Cardiology 10/17/22 01/30/24 Maycol Infante MD [address] [place] [address] Specialist Pulmonology 10/19/22 Sebastian Martinez MD [address] [place] [address] Specialist Ophthalmology 03/21/23 Eve Juan MD [address] [place] [address] [place] [address] Specialist UROGYNECOLOGY 03/21/23 Elisa Romero NP [address] [place] [address] [place] [address] Cardiology 01/31/24 Marcus Murcia DO [address] [place] [address] [place] [address] Specialist Physiatry 03/26/24 documented as of this encounter
--- OUTSIDE RECORDS SUMMARY | 2024-10-08 12:05 | XMS_ITS | Encounter Summary ---
Author Organization [facility] Address [address] [place] [address] Care Team Providers Care Tool Repairer Name Role Phone Wiley Thompson MD Primary Care Provider Kameron Cornejo MD Unavailable Katya Lopez NP Unavailable Unavailab Kathy Haley MD Primary Care Prov ider Be Pacheco NP Unavailable [phone] Maycol Infante MD Unavailable Unavailable Sebastian Martinez MD Unavailable UnavailEve Blackmon MD Unavailable Elisa Romero NP Unavailable [phone] Marcus Murcia DO Unavailable Unavailable Reason for Visit * Reason Onset Date Comments pain, chest 02/15/2017 Encounter Details Date Type Department Care Team Description 02/15/2017 Telephone Adult Medicine [address] [address] Wiley Thompson MD pain, chest Social History [...] to ER for eval- will go to [facility]. * Telephone Encounter - Marti Doris - 02/15/2017 11:41 AM EDT Symptoms patient is presenting: PT IS HAVING CHEST PAIN AND TIGHT CHEST If pain or injury related was it due to an accident at work or from a motor vehicle accident? NO If yes, gather 3rd democrat insurance information Date of accident/Injury: How long has patient had these symptoms?: PCP: Wiley Thompson Payor: [facility] MCR / Plan: [employer] $0 [employer] [id number] / Product Type: HMO [id number] documented in this encounter Plan of Treatment Not on file documented as of this encounter Visit Diagnoses Not on filedocumented in this encounter Care Teams Tool Repairer Relationship Specialty Start Date End Date Wiley Thompson MD PCP - General Internal Medicine 06/04/14 01/20/22 Kathy Christopher MD [address] [place] [address] PCP - General Internal Medicine 01/21/22 Kameron Zuñiga MD Senior Account Director Cardiovascular Disease 08/04/21 Katya Lopez NP Cardiology 08/04/21 01/30/24 Be Pacheco NP [address] [place] [address] [phone] Nurse Practitioner Cardiology 10/17/22 01/30/24 Maycol Infante MD [address] [place] [address] Specialist Pulmonology 10/19/22 Sebastian Martinez MD [address] [place] [address] Specialist Ophthalmology 03/21/23 Eve Juan MD [address] [place] [address] [place] [address] Specialist UROGYNECOLOGY 03/21/23 Elisa Romero NP [address] [place] [address] [place] [address] Cardiology 01/31/24 Marcus Murcia DO [address] [place] [address] [place] [address] Specialist Physiatry 03/26/24 documented as of this encounter
--- OUTSIDE RECORDS SUMMARY | 2024-10-08 12:05 | XMS_ITS | Encounter Summary ---
Author Organization [facility] Address [address] [place] [address] Care Team Providers Care Fur Operator Name Role Phone Wiley Thompson MD Primary Care Provider Kameron Cornejo MD Unavailable Katya Lopez NP Unavailable Unavailab Kathy Haley MD Primary Care Prov ider Be Pacheco NP Unavailable [phone] Maycol Infante MD Unavailable Unavailable Sebastian Martinez MD Unavailable UnavailEve Blackmon MD Unavailable Elisa Romero NP Unavailable [phone] Marcus Murcia DO Unavailable Unavailable Reason for Visit * Reason Onset Date Comments Testing 09/13/2019 DXA bone density study 1+ sits axial skel Encounter Details Date Type Department Care Team Description 09/13/2019 Telephone Adult Medicine [facility] [address] [place] [address] [phone] Pau Shultz PA [address] [place], [place] [phone] Testing (DXA bone density study 1+ sits [...] on filedocumented in this encounter Care Teams Fur Operator Relationship Specialty Start Date End Date Wiley Thompson MD PCP - General Internal Medicine 06/04/14 01/20/22 Kathy Christopher MD [address] [place] [address] PCP - General Internal Medicine 01/21/22 Kameron Zuñiga MD Industrial Waste Treatment Technician Cardiovascular Disease 08/04/21 Katya Lopez NP Cardiology 08/04/21 01/30/24 Be Pacheco NP [address] [place] [address] Nurse Practitioner Cardiology 10/17/22 01/30/24 Maycol Infante MD [address] [place] [address] Specialist Pulmonology 10/19/22 Sebastian Martinez MD [address] [place] [address] Specialist Ophthalmology 03/21/23 Eve Juan MD [address] [facility] [place] [address] Specialist UROGYNECOLOGY 03/21/23 Elisa Romero NP [address] [facility] [place] [address] Cardiology 01/31/24 Marcus Murcia DO [address] [place] [address] [place] [address] Specialist Physiatry 03/26/24 documented as of this encounter
--- OUTSIDE RECORDS SUMMARY | 2024-10-08 12:05 | XMS_ITS | Encounter Summary ---
Author Organization [facility] Address [address] [place] [address] Care Team Providers Care Content Management Consultant Name Role Phone Wiley Thompson MD Primary Care Provider Kameron Cornejo MD Unavailable Katya Lopez NP Unavailable Unavailab Kathy Haley MD Primary Care Prov ider Be Pacheco NP Unavailable [phone] Maycol Infante MD Unavailable Unavailable Sebastian Martinez MD Unavailable UnavailEve Blackmon MD Unavailable Elisa Romero NP Unavailable [phone] Marcus Murcia DO Unavailable Unavailable Encounter Details Date Type Department Care Team Description 02/12/2019 Manager Procurement Report Medical Records [address] [place] [address] Matti Bansal Social History Tobacco Use Types [...] on filedocumented in this encounter Care Teams Content Management Consultant Relationship Specialty Start Date End Date Wiley Thompson MD PCP - General Internal Medicine 06/04/14 01/20/22 Kathy Christopher MD [address] [place] [address] PCP - General Internal Medicine 01/21/22 Kameron Zuñiga MD Metallurgical Inspector Cardiovascular Disease 08/04/21 Katya Lopez NP Cardiology 08/04/21 01/30/24 Be Pacheco NP [address] [place] [address] Nurse Practitioner Cardiology 10/17/22 01/30/24 Maycol Infante MD [address] [place] [address] Specialist Pulmonology 10/19/22 Sebastian Martinez MD [address] [place] [address] Specialist Ophthalmology 03/21/23 Eve Juan MD [address] [place] [address] [place] [address] Specialist UROGYNECOLOGY 03/21/23 Elisa Romero NP [address] [place] [address] [place] [address] Cardiology 01/31/24 Marcus Murcia DO [address] [place] [address] [place] [address] Specialist Physiatry 03/26/24 documented as of this encounter
--- OUTSIDE RECORDS SUMMARY | 2024-10-08 12:05 | XMS_ITS | Encounter Summary ---
Author Organization [facility] Address [address] [place] [address] Care Team Providers Care Weapons Electrical Engineering Officer Name Role Phone Kameron Zuñiga MD Unavailable Katya Lopez NP Unavailable Unavailab le Kathy Christopher MD Primary Care Prov ider Be Pacheco NP Unavailable [phone] Maycol Infante MD Unavailable Unavailable Sebastian Martinez MD Unavailable UnavailEve Blackmon MD Unavailable Elisa Romero NP Unavailable [phone] Marcus Murcia DO Unavailable Unavailable Encounter Details Date Type Department Care Team Description 09/04/2023 Account Development Representative Report Medical Records [address] [place] [address] Lalitha Diego, [facility]- Social History Tobacco Use Types Packs/Day [...] on filedocumented in this encounter Care Teams Weapons Electrical Engineering Officer Relationship Specialty Start Date End Date Kathy Christopher MD [address] [place] [address] [phone] PCP - General Internal Medicine 01/21/22 Kameron Zuñiga MD Damper Fitter Cardiovascular Disease 08/04/21 Katya Lopez, IRMA Cardiology 08/04/21 01/30/24 Be Pacheco NP [address] [place] [address] Nurse Practitioner Cardiology 10/17/22 01/30/24 Maycol Infante MD [address] [place] [address] Specialist Pulmonology 10/19/22 Sebastian Martinez MD [address] [place] [address] Specialist Ophthalmology 03/21/23 Eve Juan MD [address] [place] [address] [place] [address] Specialist UROGYNECOLOGY 03/21/23 Elisa Romero NP [address] [place] [address] [place] [address] Cardiology 01/31/24 Marcus Murcia DO [address] [place] [address] [place] [address] Specialist Physiatry 03/26/24 documented as of this encounter
--- OUTSIDE RECORDS SUMMARY | 2024-10-08 12:05 | XMS_ITS | Encounter Summary ---
Author Organization [facility] Address [address] [place] [address] Care Team Providers Care Nursing Education Specialist Name Role Phone Wiley Thompson MD Primary Care Provider Kameron Cornejo MD Unavailable Katya Lopez NP Unavailable Unavailab Kathy Hlaey MD Primary Care Prov ider Be Pacheco NP Unavailable [phone] Maycol Infante MD Unavailable Unavailable Sebastian Martinez MD Unavailable UnavailEve Blackmon MD Unavailable Elisa Romero NP Unavailable [phone] Marcus Murcia DO Unavailable Unavailable Reason for Visit * Reason Onset Date Comments Orders Call 03/02/2017 Encounter Details Date Type Department Care Team Description 03/02/2017 Telephone Adult Medicine [address] [address] Wiley Thompson MD Orders Call Social History [...] - 03/02/2017 12:06 PM EDT Clementina wolff [facility] (nurse case sealer) is requesting the MRI order to be faxed to [phone] for approval and to have it expedited as the patient is in need of having the MRI doen shamar. Thanks documented in this encounter Plan of Treatment Not on file documented as of this encounter Visit Diagnoses Not on filedocumented in this encounter Care Teams Nursing Education Specialist Relationship Specialty Start Date End Date Wiley Thompson MD PCP - General Internal Medicine 06/04/14 01/20/22 Trina Rizo, Kathy Fried MD [address] [place] [address] PCP - General Internal Medicine 01/21/22 Kameron Zuñiga MD Business Process Specialist Cardiovascular Disease 08/04/21 Katya Lopez NP Cardiology 08/04/21 01/30/24 Be Pacheco NP [address] [place] [address] Nurse Practitioner Cardiology 10/17/22 01/30/24 Maycol Infante MD [address] [place] [address] Specialist Pulmonology 10/19/22 Sebastian Martinez MD [address] [place], [place] [phone] Specialist Ophthalmology 03/21/23 Eve Juan MD [address] [place] [address] [place] [address] Specialist UROGYNECOLOGY 03/21/23 Elisa Romero NP [address] [place] [address] [place] [address] Cardiology 01/31/24 Marcus Murica DO [address] [place] [address] [place] [address] Specialist Physiatry 03/26/24 documented as of this encounter
--- OUTSIDE RECORDS SUMMARY | 2024-10-08 12:05 | XMS_ITS | Encounter Summary ---
Author Organization [facility] Address [address] [place] [address] Care Team Providers Care Box Attacher Name Role Phone Wiley Thompson MD Primary Care Provider Kameron Cornejo MD Unavailable Katya Lopez FUSELAGE FRAMER Unavailable Unavailab Kathy Christopher MD Primary Care Prov ider Be Pacheco NP Unavailable [phone] Maycol Infante MD Unavailable Unavailable Sebastian Martinez MD Unavailable UnavailEve Blackmon MD Unavailable Elisa Romero NP Unavailable [phone] Marcus Murcia DO Unavailable Unavailable Encounter Details Date Type Department Care Team Description 05/03/2019 Greeter Guest Services Report Medical Records [address] [place] [address] Maycol Infante MD Social History Tobacco Use [...] on filedocumented in this encounter Care Teams Box Attacher Relationship Specialty Start Date End Date Wiley Thompson MD PCP - General Internal Medicine 06/04/14 01/20/22 Kathy Christopher MD [address] [place] [address] PCP - General Internal Medicine 01/21/22 Kameron Zuñiga MD Leather Case Finisher Cardiovascular Disease 08/04/21 Katya Lopez, IRMA Cardiology 08/04/21 01/30/24 Be Pacheco NP [address] [place] [address] Nurse Practitioner Cardiology 10/17/22 01/30/24 Maycol Infante MD [address] [place] [address] Specialist Pulmonology 10/19/22 Sebastian Martinez MD [address] [place] [address] Specialist Ophthalmology 03/21/23 Eve Juan MD [address] [place] [address] [place] [address] Specialist UROGYNECOLOGY 03/21/23 Elisa Romero NP [address] [place] [address] [place] [address] Cardiology 01/31/24 Marcus Murcia DO [address] [place] [address] [place] [address] Specialist Physiatry 03/26/24 documented as of this encounter
--- OUTSIDE RECORDS SUMMARY | 2024-10-08 12:05 | XMS_ITS | Encounter Summary ---
Author Organization [facility] Address [address] [place] [address] Care Team Providers Care Turn Out Name Role Phone Kameron Zuñiga MD Unavailable Katya Lopez NP Unavailable Unavailab Kathy Haley MD Primary Care Prov ider Be Pacheco NP Unavailable [phone] Maycol Infante MD Unavailable Unavailable Sebastian Martinez MD Unavailable UnavailEve Blackmon MD Unavailable Elisa Romero NP Unavailable [phone] Marcus Murcia DO Unavailable Unavailable Encounter Details Date Type Department Care Team Description 08/21/2023 Orders Only Medical Records [address] [place] [address] [facility] Social History Tobacco Use Types Packs/Day [...] OUTSIDE CT (08/03/2023) Narrative Authorizing Provider Result [facility] RADIOLOGY * OUTSIDE LAB (08/03/2023) Narrative Authorizing Provider Result [facility] LAB * OUTSIDE EKG (08/03/2023) Narrative Authorizing Provider Result [facility] CARDIOLOGY documented in this encounter Visit Diagnoses Not on filedocumented in this encounter Care Teams Turn Out Relationship Specialty Start Date End Date Kathy Christopher MD [address] [place] [address] PCP - General Internal Medicine 01/21/22 Kameron Zuñiga MD Quality Lead Cardiovascular Disease 08/04/21 Katya Lopez NP Cardiology 08/04/21 01/30/24 Be Pacheco NP [address] [place] [address] Nurse Practitioner Cardiology 10/17/22 01/30/24 Maycol Infante MD [address] [place] [address] Specialist Pulmonology 10/19/22 Sebastian Martinez MD [address] [place] [address] Specialist Ophthalmology 03/21/23 Eve Juan MD [address] [place] [address] [place] [address] Specialist UROGYNECOLOGY 03/21/23 Elisa Romero NP [address] [place] [address] [place] [address] Cardiology 01/31/24 Marcus Murcia DO [address] [place] [address] [place] [address] Specialist Physiatry 03/26/24 documented as of this encounter
--- OUTSIDE RECORDS SUMMARY | 2024-10-08 12:05 | XMS_ITS | Encounter Summary ---
Author Organization [facility] Address [address] [place] [address] Care Team Providers Care Grinding Operator Name Role Phone Wiley Thompson MD Primary Care Provider Kameron Cornejo MD Unavailable Katya Lopez NP Unavailable Unavailab Kathy Haley MD Primary Care Prov ider Be Pacheco NP Unavailable [phone] Maycol Infante MD Unavailable Unavailable Sebastian Martinez MD Unavailable UnavailEve Blackmon MD Unavailable Elisa Romero NP Unavailable [phone] Marcus Murcia DO Unavailable Unavailable Encounter Details Date Type Department Care Team Description 08/02/2021 Burning Plant Operator Report Medical Records [address] [place] [address] Wiley Thompson MD Social History Tobacco Use [...] on filedocumented in this encounter Care Teams Grinding Operator Relationship Specialty Start Date End Date Wiley Tohmpson MD PCP - General Internal Medicine 06/04/14 01/20/22 Kathy Christopher MD [address] [place] [address] PCP - General Internal Medicine 01/21/22 Kameron Zuñiga MD Talent Rep Cardiovascular Disease 08/04/21 Katya Lopez NP Cardiology 08/04/21 01/30/24 Be Pacheco NP [address] [place] [address] Nurse Practitioner Cardiology 10/17/22 01/30/24 Maycol Infante MD [address] [place] [address] Specialist Pulmonology 10/19/22 Sebastian Martinez MD [address] [place] [address] Specialist Ophthalmology 03/21/23 Eve Juan MD [address] [place] [address] [place] [address] Specialist UROGYNECOLOGY 03/21/23 Elisa Romero NP [address] [place] [address] [place] [address] Cardiology 01/31/24 Marcus Murcia DO [address] [place] [address] [place] [address] Specialist Physiatry 03/26/24 documented as of this encounter
--- OUTSIDE RECORDS SUMMARY | 2024-10-08 12:05 | XMS_ITS | Encounter Summary ---
Author Organization [facility] Address [address] [place] [address] Care Team Providers Care Export Documents Clerk Name Role Phone Wiley Thompson MD Primary Care Provider Kameron Cornejo MD Unavailable Kayta Lopez NP Unavailable Unavailab Kathy Haley MD Primary Care Prov ider Be Pacheco NP Unavailable [phone] Maycol Infante MD Unavailable Unavailable Sebastian Martinez MD Unavailable UnavailEve Blackomn MD Unavailable Elisa Romero NP Unavailable [phone] Marcus Murcia DO Unavailable Unavailable Encounter Details Date Type Department Care Team Description 06/20/2019 Orders Only Medical Records [address] [place] [address] Wiley Thompson MD Social History Tobacco Use [...] on filedocumented in this encounter Care Teams Export Documents Clerk Relationship Specialty Start Date End Date Wiley Thompson MD PCP - General Internal Medicine 06/04/14 01/20/22 Kathy Christopher MD [address] [place] [address] PCP - General Internal Medicine 01/21/22 Kameron Zuñiga MD Corporate Planner Cardiovascular Disease 08/04/21 Katya Lopez NP Cardiology 08/04/21 01/30/24 Be Pacheco NP [address] [place] [address] Nurse Practitioner Cardiology 10/17/22 01/30/24 Maycol Infante MD [address] [place] [address] Specialist Pulmonology 10/19/22 Sebastian Martinez MD [address] [place] [address] Specialist Ophthalmology 03/21/23 Eve Juan MD [address] [place] [address] [place] [address] Specialist UROGYNECOLOGY 03/21/23 Elisa Romero NP [address] [place] [address] [place] [address] Cardiology 01/31/24 Marcus Murcia DO [address] [place] [address] [place] [address] Specialist Physiatry 03/26/24 documented as of this encounter
--- OUTSIDE RECORDS SUMMARY | 2024-10-08 12:05 | XMS_ITS | Encounter Summary ---
Author Organization [facility] Address [address] [place] [address] Care Team Providers Care Cmm Operator Name Role Phone Wiley Thompson MD Primary Care Provider Kameron Cornejo MD Unavailable Katya Lopez NP Unavailable Unavailab Kathy Haley MD Primary Care Prov ider Be Pacheco NP Unavailable [phone] Maycol Infante MD Unavailable Unavailable Sebastian Martinez MD Unavailable UnavailEve Blackmon MD Unavailable Elisa Romero NP Unavailable [phone] Marcus Murcia DO Unavailable Unavailable Encounter Details Date Type Department Care Team Description 04/22/2019 Release of Information Medical Records [address] [place] [address] Abstract, Provider Social History Tobacco Use Types [...] on filedocumented in this encounter Care Teams Cmm Operator Relationship Specialty Start Date End Date Wiley Thompson MD PCP - General Internal Medicine 06/04/14 01/20/22 Kathy Christopher MD [address] [place] [address] PCP - General Internal Medicine 01/21/22 Kameron Zuñiga MD Equities Trader Cardiovascular Disease 08/04/21 Katya Lopez NP Cardiology 08/04/21 01/30/24 Be Pacheco NP [address] [place] [address] Nurse Practitioner Cardiology 10/17/22 01/30/24 Maycol Infante MD [address] [place] [address] Specialist Pulmonology 10/19/22 Sebastian Martinez MD [address] [place] [address] Specialist Ophthalmology 03/21/23 Eve Juan MD [address] [place] [address] [place] [address] Specialist UROGYNECOLOGY 03/21/23 Elisa Romero NP [address] [place] [address] [place] [address] Cardiology 01/31/24 Marcus Murcia DO [address] [place] [address] [place] [address] Specialist Physiatry 03/26/24 documented as of this encounter
--- OUTSIDE RECORDS SUMMARY | 2024-10-08 12:05 | XMS_ITS | Encounter Summary ---
Author Organization [facility] Address [address] [place] [address] Care Team Providers Care Chief Information Security Officer Name Role Phone Kameron Zuñiga MD Unavailable Katya Lopez NP Unavailable Unavailab Kathy Haley MD Primary Care Prov ider Be Pacheco NP Unavailable [phone] Maycol Infante MD Unavailable Unavailable Sebastian Martinez MD Unavailable UnavailEve Blackmon MD Unavailable Elisa Romero NP Unavailable [phone] Marcus Murcia DO Unavailable Unavailable Encounter Details Date Type Department Care Team Description 08/17/2023 Orders Only Medical Records [address] [place] [address] Tyson Hunter Social History Tobacco Use Types [...] filedocumented in this encounter Care Teams Chief Information Security Officer Relationship Specialty Start Date End Date Kathy Christopher MD [address] [place] [address] PCP - General Internal Medicine 01/21/22 Kameron Zuñiga MD Paver Installer Cardiovascular Disease 08/04/21 Katya Lopez NP Cardiology 08/04/21 01/30/24 Be Pacheco NP [address] [place] [address]00 Nurse Practitioner Cardiology 10/17/22 01/30/24 Maycol Infante MD [address] [place] [address] Specialist Pulmonology 10/19/22 Sebastian Martinez MD [address] [place] [address] Specialist Ophthalmology 03/21/23 Eve Juan MD [address] [place] [address] [place] [address] Specialist UROGYNECOLOGY 03/21/23 Elisa Romero NP [address] [place] [address] [place] [address] Cardiology 01/31/24 Marcus Murcia DO [address] [place] [address] [place] [address] Specialist Physiatry 03/26/24 documented as of this encounter
--- OUTSIDE RECORDS SUMMARY | 2024-10-08 12:05 | XMS_ITS | Encounter Summary ---
Author Organization [facility] Address [address] [place] [address] Care Team Providers Care Consulting Practice Manager Name Role Phone Wiley Thompson MD Primary Care Provider Kameron Cornejo MD Unavailable Katya Lopez NP Unavailable Unavailab Kathy Haley MD Primary Care Prov ider Be Pacheco NP Unavailable [phone] Maycol Infante MD Unavailable Unavailable Sebastian Martinez MD Unavailable UnavailEve Blackmon MD Unavailable Elisa Romero NP Unavailable [phone] Marcus Murcia DO Unavailable Unavailable Reason for Visit * Reason Onset Date Comments Echocardiogram 04/13/2017 Encounter Details Date Type Department Care Team Description 04/13/2017 Telephone Cardiology - [place] [address] [place] [address] [phone] Chhaya Whatley, ROMINA [address] [place] [address] [phone] Echocardiogram Social History Tobacco Use Types Packs/Day [...] 04/13/2017 2:39 PM EDT Form faxed to [facility] for auth * Telephone Encounter - Ijeoma Villa - 04/13/2017 2:09 PM EDT Shea is having an echocardiogram done on 04/18/17 and she has [employer] ins. Does this ins require andauth? Thank you Ijeoma in cardiology. documented in this encounter Plan of Treatment Not on file documented as of this encounter Visit Diagnoses Not on filedocumented in this encounter Care Teams Consulting Practice Manager Relationship Specialty Start Date End Date Wiley Thompson MD PCP - General Internal Medicine 06/04/14 01/20/22 Kathy Christopher MD [address] [place] [address] PCP - General Internal Medicine 01/21/22 Kameron Zuñiga MD Product Marketing Specialist Cardiovascular Disease 08/04/21 Katya Lopez NP Cardiology 08/04/21 01/30/24 Be Pacheco NP [address] [place] [address]17 Nurse Practitioner Cardiology 10/17/22 01/30/24 Maycol Infante MD [address] [place] [address] Specialist Pulmonology 10/19/22 Sebastian Martinez MD [address] [place] [address] Specialist Ophthalmology 03/21/23 Eve Juan MD [address] [place] [address] [place] [address] Specialist UROGYNECOLOGY 03/21/23 Elisa Romero NP [address] [facility] [place] [address] Cardiology 01/31/24 Marcus Murcia DO [address] [facility]rogynecologM[facility]lenberg [place] [address] Specialist Physiatry 03/26/24 documented as of this encounter
--- OUTSIDE RECORDS SUMMARY | 2024-10-08 12:05 | XMS_ITS | Encounter Summary ---
Author Organization [facility] Address [address] [place] [address] Care Team Providers Care Insulation Engineman Name Role Phone Wiley Thompson MD Primary Care Provider Kameron Cornejo MD Unavailable Katya Lopez NP Unavailable Unavailab Kathy Haley MD Primary Care Prov ider Be Pacheco NP Unavailable [phone] Maycol Infante MD Unavailable Unavailable Sebastian Martinez MD Unavailable UnavailEve Blackmon MD Unavailable Elisa Romero NP Unavailable [phone] Marcus Murcia DO Unavailable Unavailable Encounter Details Date Type Department Care Team Description 11/02/2021 Telephone Cardio PVCA Diag Testing [address] [facility] [address] [place], [place] [phone] Kameron Zuñiga MD [address] [place] [address] [phone] Social History Tobacco Use Types Packs/Day Years [...] her know Dr. Zuñiga is rounding at [facility] this week * Telephone Encounter - Ilene [...] on filedocumented in this encounter Care Teams Insulation Engineman Relationship Specialty Start Date End Date Wiley Thompson MD PCP - General Internal Medicine 06/04/14 01/20/22 Kathy Christopher MD [address] [place] [address] PCP - General Internal Medicine 01/21/22 Kameron Zuñiga MD Client Experience Administrator Cardiovascular Disease 08/04/21 Katya Lopez NP Cardiology 08/04/21 01/30/24 Be Pacheco NP [address] [place] [address]13 Nurse Practitioner Cardiology 10/17/22 01/30/24 Maycol Infante MD [address] [place], [place] [phone] Specialist Pulmonology 10/19/22 Sebastian Martinez MD [address] [place] [address] Specialist Ophthalmology 03/21/23 Eve Juan MD [address] [place] [address] [place] [address] Specialist UROGYNECOLOGY 03/21/23 Elisa Romero NP [address] [place] [address] [place] [address] Cardiology 01/31/24 Marcus Murcia DO [address] [place] [address] [place] [address] Specialist Physiatry 03/26/24 documented as of this encounter
--- OUTSIDE RECORDS SUMMARY | 2024-10-08 12:05 | XMS_ITS | Encounter Summary ---
Author Organization [facility] Address [address] [place] [address] Care Team Providers Care Job Setter Honing Name Role Phone Wiley Thompson MD Primary Care Provider Kameron Cornejo MD Unavailable Katya Lopez NP Unavailable Unavailab Kathy Haley MD Primary Care Prov ider Be Pacheco NP Unavailable [phone] Maycol Infante MD Unavailable Unavailable Sebastian Martinez MD Unavailable UnavailEve Blackmon MD Unavailable Elisa Romero NP Unavailable [phone] Marcus Murcia DO Unavailable Unavailable Encounter Details Date Type Department Care Team Description 04/12/2017 Refill Adult Medicine [address] [phone] Wiley Thompson MD Social History Tobacco Use [...] NO Patients current insurance carrier is: Payor: [facility] MCR / Plan: OrderDynamics $[address] [facility] [id number] / Product Type: HMO [id number] documented in this encounter Plan of Treatment Not on file documented as of this encounter Visit Diagnoses Not on filedocumented in this encounter Care Teams Job Setter Honing Relationship Specialty Start Date End Date Wiley Thompson MD PCP - General Internal Medicine 06/04/14 01/20/22 Trina Rizo, Kathy Fried MD [address] [place] [address] PCP - General Internal Medicine 01/21/22 Kameron Zuñiga MD Runway Model Cardiovascular Disease 08/04/21 Ktaya Lopez NP Cardiology 08/04/21 01/30/24 Be Pacheco NP [address] [place] [address] Nurse Practitioner Cardiology 10/17/22 01/30/24 Maycol Infante MD [address] [place] [address] Specialist Pulmonology 10/19/22 Sebastian Martinez MD [address] [place] [address] Specialist Ophthalmology 03/21/23 Eve Juan MD [address] [place] [address] [place] [address] Specialist UROGYNECOLOGY 03/21/23 Elisa Romero NP [address] [place] [address] [place] [address] Cardiology 01/31/24 Marcus Murcia DO [address] [place] [address] [place] [address] Specialist Physiatry 03/26/24 documented as of this encounter
--- OUTSIDE RECORDS SUMMARY | 2024-10-08 12:05 | XMS_ITS | Encounter Summary ---
Author Organization [facility] Address [address] [place] [address] Care Team Providers Care Golf Sales Manager Name Role Phone Wiley Thompson MD Primary Care Provider Kameron Cornejo MD Unavailable Katya Lopez NP Unavailable Unavailab Kathy Christopher MD Primary Care Prov ider Be Pacheco NP Unavailable [phone] Maycol Infante MD Unavailable Unavailable Sebastian Martinez MD Unavailable UnavailEve Blackmon MD Unavailable Elisa Romero NP Unavailable [phone] Marcus Murcia DO Unavailable Unavailable Encounter Details Date Type Department Care Team Description 04/27/2019 Release of Information Medical Records [address] [place] [address] Abstract, Provider Social History Tobacco Use Types [...] on filedocumented in this encounter Care Teams Golf Sales Manager Relationship Specialty Start Date End Date Wiley Thompson MD PCP - General Internal Medicine 06/04/14 01/20/22 Kathy Christopher MD [address] [place] [address] PCP - General Internal Medicine 01/21/22 Kameron Zuñiga MD Quilt Maker Cardiovascular Disease 08/04/21 Katya Lopez, IRMA Cardiology 08/04/21 01/30/24 Be Pacheco NP [address] [place] [address] Nurse Practitioner Cardiology 10/17/22 01/30/24 Maycol Infante MD [address] [place] [address] Specialist Pulmonology 10/19/22 Sebastian Martinez MD [address] [place] [address] Specialist Ophthalmology 03/21/23 Eve Juan MD [address] [place] [address] [place] [address] Specialist UROGYNECOLOGY 03/21/23 Elisa Romero NP [address] [place] [address] [place] [address] Cardiology 01/31/24 Marcus Murcia DO [address] [place] [address] [place] [address] Specialist Physiatry 03/26/24 documented as of this encounter
--- OUTSIDE RECORDS SUMMARY | 2024-10-08 12:05 | XMS_ITS | Encounter Summary ---
Author Organization [facility] Address [address] [place] [address] Care Team Providers Care Veneer Sheet Repairer Name Role Phone Wiley Thompson MD Primary Care Provider Kameron Cornejo MD Unavailable Katya Lopez NP Unavailable Unavailab Kathy Haley MD Primary Care Prov ider Be Pacheco NP Unavailable [phone] Maycol Infante MD Unavailable Unavailable Sebastian Martinez MD Unavailable UnavailEve Blackmon MD Unavailable Elisa Romero NP Unavailable [phone] Marcus Murcia DO Unavailable Unavailable Encounter Details Date Type Department Care Team Description 08/26/2021 SCAN Medical Records [address] [place] [address] Abstract, Provider Social History Tobacco Use Types [...] on filedocumented in this encounter Care Teams Veneer Sheet Repairer Relationship Specialty Start Date End Date Wiley Thompson MD PCP - General Internal Medicine 06/04/14 01/20/22 Kathy Christopher MD [address] [place] [address] PCP - General Internal Medicine 01/21/22 Kameron Zuñiga MD Refinery Operator Gas Plant Cardiovascular Disease 08/04/21 Katya Lopez NP Cardiology 08/04/21 01/30/24 Be Pacheco NP [address] [place] [address] 10692 Nurse Practitioner Cardiology 10/17/22 01/30/24 Maycol Infante MD [address] [place] [address] 25652 Specialist Pulmonology 10/19/22 Sebastian Martinez MD [address] [place] [address] 20158 Specialist Ophthalmology 03/21/23 Eve Juan MD [address] [place] [address] [place] [address] Specialist UROGYNECOLOGY 03/21/23 Elisa Romero NP [address] [place] [address] [place] [address] Cardiology 01/31/24 Marcus Murcia DO [address] [place] [address] [place] [address] Specialist Physiatry 03/26/24 documented as of this encounter
--- OUTSIDE RECORDS SUMMARY | 2024-10-08 12:05 | XMS_ITS | Encounter Summary ---
Author Organization [facility] Address [address] [place] [address] Care Team Providers Care Database Specialist Name Role Phone Wiley Thompson MD Primary Care Provider Kameron Cornejo MD Unavailable Katya Lopez NP Unavailable Unavailab Kathy Haley MD Primary Care Prov ider Be Pacehco NP Unavailable Maycol Infante MD Unavailable Unavailable Sebastian Martinez MD Unavailable UnavailEve Blackmon MD Unavailable Elisa Romero NP Unavailable [phone] Marcus Murcia DO Unavailable Unavailable Encounter Details Date Type Department Care Team Description 10/14/2021 Telephone Cardio PVCA Diag Testing [address] [place], [place] [id number] Kameron Zuñiga MD [address] [place] [address] [phone] Social History Tobacco Use Types Packs/Day Years [...] see Katya. There are other records from [facility] as well. * Telephone Encounter - Ana Valenzuela C.M.A. - 10/14/2021 12:55 PM EDT Disregard the message below, I see records were scanned in already. Thanks! * Telephone Encounter - Ana Valenzuela C.M.A. - 10/14/2021 11:24 AM EDT Dennys Shi, Could you please follow up with [facility] and [facility] for this patients records? I do see her signed release scanned in the chart. She has called me 3 times and I dont see anything new in the charts from them. Thank you! documented in this encounter Plan of Treatment Not on file documented as of this encounter Visit Diagnoses Not on filedocumented in this encounter Care Teams Database Specialist Relationship Specialty Start Date End Date Wiley Thompson MD PCP - General Internal Medicine 06/04/14 01/20/22 Kathy Christopher MD [address] [place] [address] PCP - General Internal Medicine 01/21/22 Kameron Zuñiga MD Learning Design Specialist Cardiovascular Disease 08/04/21 Katya Lopez NP Cardiology 08/04/21 01/30/24 Be Pacheco NP [address] [place] [address] 29330 Nurse Practitioner Cardiology 10/17/22 01/30/24 Maycol Infante MD [address] [place] [address]5814 Specialist Pulmonology 10/19/22 Sebastian Martinez MD [address] [place] [address] 27304 Specialist Ophthalmology 03/21/23 Eve Juan MD [address] [place] [address] [place] [address] Specialist UROGYNECOLOGY 03/21/23 Elisa Romero NP [address] [place] [address] [place] [address] Cardiology 01/31/24 Marcus Murcia DO [address] [place] [address] [place] [address] Specialist Physiatry 03/26/24 documented as of this encounter
--- OUTSIDE RECORDS SUMMARY | 2024-10-08 12:05 | XMS_ITS | Encounter Summary ---
Author Organization [facility] Address [address] [place] [address] Care Team Providers Care Surveyor Geophysical Prospecting Name Role Phone Wiley Thompson MD Primary Care Provider Kameron Cornejo MD Unavailable Katya Lopez NP Unavailable Unavailab Kathy Haley MD Primary Care Prov ider Be Pacheco NP Unavailable [phone] Maycol Infante MD Unavailable Unavailable Sebastian Martinez MD Unavailable UnavailEve Blackmon MD Unavailable Elisa Romero NP Unavailable [phone] Marcus Murcia DO Unavailable Unavailable Encounter Details Date Type Department Care Team Description 09/28/2021 SCAN Medical Records [address] [place] [id number] Abstract, Provider Social History Tobacco Use Types [...] filedocumented in this encounter Care Teams Surveyor Geophysical Prospecting Relationship Specialty Start Date End Date Wiley Thompson MD PCP - General Internal Medicine 06/04/14 01/20/22 Kathy Christopher MD [address] [place] [address]28[address] PCP - General Internal Medicine 01/21/22 Kameron Zñuiga MD Knitting Tester Cardiovascular Disease 08/04/21 Katya Lopez NP Cardiology 08/04/21 01/30/24 Be Pacheco NP [address] [place] [address] 65023 Nurse Practitioner Cardiology 10/17/22 01/30/24 Maycol Infante MD [address] [place] [address] 28236 Specialist Pulmonology 10/19/22 Sebastian Martinez MD [address] [place] [address] 49093 Specialist Ophthalmology 03/21/23 Eve Juan MD [address] [place] [address] [place] [address] Specialist UROGYNECOLOGY 03/21/23 Elisa Romero NP [address] [place] [address] [place] [address] Cardiology 01/31/24 Marcus Murcia DO [address] [place] [address] [place] [address] Specialist Physiatry 03/26/24 documented as of this encounter
--- OUTSIDE RECORDS SUMMARY | 2024-10-08 12:05 | XMS_ITS | Encounter Summary ---
Author Organization [facility] Address [address] [place] [address] Care Team Providers Care Supervisor Water Softener Service Name Role Phone Wiley Thompson MD Primary Care Provider Kameron Cornejo MD Unavailable Katya Lopez NP Unavailable Unavailab Kathy Haley MD Primary Care Prov ider Be Pacheco NP Unavailable [phone] Maycol Infante MD Unavailable Unavailable Sebastian Martinez MD Unavailable UnavailEve Blackmon MD Unavailable Elisa Romero NP Unavailable [phone] Marcus Murcia DO Unavailable Unavailable Reason for Visit * Reason Onset Date Comments other 09/27/2021 echo results? Encounter Details Date Type Department Care Team Description 09/27/2021 Telephone Cardio PVCA Diag Testing [address] [place], [place] [id number] Kameron Zuñiga MD [address] [place] [address] [phone] other (echo results?) Social History Tobacco Use Types Packs/Day Years [...] encounter Miscellaneous Notes * Telephone Encounter - Ana Valenzuela C.M.A. - 10/05/2021 3:51 PM EDT Call from [facility] asking if I have received the documents from other Dr, I let her know I have not but will continue to look out for incoming fax or mail. * Telephone Encounter - Ilene Jon C.M.A. - 09/27/2021 4:08 PM EDT Katie Etienne calling for echo results; under [facility] Jul 27, 2021 (H) * Telephone Encounter - Barry Fuentes - 09/27/2021 3:22 PM EDT Pt is calling stating pt did not get results from echo done in hospital from [facility], pls call pts daughter at [phone] documented in this encounter Plan of Treatment Not on file documented as of this encounter Visit Diagnoses Not on filedocumented in this encounter Care Teams Supervisor Water Softener Service Relationship Specialty Start Date End Date Wiley Thompson MD PCP - General Internal Medicine 06/04/14 01/20/22 Kathy Christopher MD [address] [place] [address] PCP - General Internal Medicine 01/21/22 Kameron Zuñiga MD Multiple Spindle Screw Machine Operator Cardiovascular Disease 08/04/21 Katya Lopez NP Cardiology 08/04/21 01/30/24 Be Pacheco NP [address] [place] [address] 99882 Nurse Practitioner Cardiology 10/17/22 01/30/24 Maycol Infante MD [address] [place] [address] 6[address]37 Specialist Pulmonology 10/19/22 Sebastian Martinez MD [address] [place], [place] [address] Specialist Ophthalmology 03/21/23 Eve Juan MD [address] [place] [address] [place] [address] Specialist UROGYNECOLOGY 03/21/23 Elisa Romero NP [address] [place] [address] [place] [address] Cardiology 01/31/24 Marcus Murcia DO [address] [place] [address] [place] [address] Specialist Physiatry 03/26/24 documented as of this encounter
--- OUTSIDE RECORDS SUMMARY | 2024-10-08 12:05 | XMS_ITS | Encounter Summary ---
Author Organization [facility] Address [address] [place] [address] Care Team Providers Care New Car Salesperson Name Role Phone iWley Thompson MD Primary Care Provider Kameron Cornejo MD Unavailable Katya Lopez NP Unavailable Unavailab Kathy Haley MD Primary Care Prov ider eB Pacheco NP Unavailable [phone] Maycol Infante MD Unavailable Unavailable Sebastian Martinez MD Unavailable UnavailEve Blackmon MD Unavailable Elisa Romero NP Unavailable [phone] Marcus Murcia DO Unavailable Unavailable Reason for Visit * Reason Comments E-prescribe Rx Request Encounter Details Date Type Department Care Team Description 04/17/2019 Refill Adult Medicine [address] [address] Wiley Thompson MD E-prescribe Rx Request Social [...] N/A Patients current insurance carrier is: Payor: [facility] [employer] [facility] MCR / Plan: O $0 [facility] [id number] / Product Type: HMO [id number] documented in this encounter Plan of Treatment Not on file documented as of this encounter Visit Diagnoses Diagnosis CAD (coronary artery disease), [place] coronary artery Coronary atherosclerosis of [place] coronary artery documented in this encounter Care Teams New Car Salesperson Relationship Specialty Start Date End Date Wiley Thompson MD PCP - General Internal Medicine 06/04/14 01/20/22 Kathy Christopher MD [address] [place] [address] PCP - General Internal Medicine 01/21/22 Kameron Zuñiga MD Roll Edge Machine Operator Cardiovascular Disease 08/04/21 Katya Lopez NP Cardiology 08/04/21 01/30/24 Be Pacheco NP [address] [place] [address]95 Nurse Practitioner Cardiology 10/17/22 01/30/24 Maycol Infante MD [address] [place], [place] [phone] Specialist Pulmonology 10/19/22 Sebastian Martinez MD [address] [place] [address] Specialist Ophthalmology 03/21/23 Eve Juan MD [address] [place] [address] [place] [address] Specialist UROGYNECOLOGY 03/21/23 Elisa Romero NP [address] [place] [address] [place] [address] Cardiology 01/31/24 Macrus Murcia DO [address] [place] [address] [place] [address] Specialist Physiatry 03/26/24 documented as of this encounter
--- OUTSIDE RECORDS SUMMARY | 2024-10-08 12:05 | XMS_ITS | Encounter Summary ---
Author Organization [facility] Address [address] [place] [address] Care Team Providers Care Towboat Captain Name Role Phone Wiley Thompson MD Primary Care Provider Kameron Cornejo MD Unavailable Katya Lopez NP Unavailable Unavailab Kathy Haley MD Primary Care Prov ider Be Pacheco NP Unavailable [phone] Maycol Infante MD Unavailable Unavailable Sebastian Martinez MD Unavailable UnavailEve Blackmon MD Unavailable Elisa Romero NP Unavailable [phone] Marcus Murcia DO Unavailable Unavailable Reason for Visit * Reason Onset Date Comments Faxed Refill 05/01/2017 Encounter Details Date Type Department Care Team Description 05/01/2017 Refill Adult Medicine [address] [address] Wiley Thompson MD Faxed Refill Social History [...] [facility] MCR / [place]: [facility] [place] [facility] [id number] / Product Type: HMO [id number] documented in this encounter Plan of Treatment Not on file documented as of this encounter Visit Diagnoses Diagnosis CAD (coronary artery disease), [place] coronary artery Coronary atherosclerosis of [place] coronary artery documented in this encounter Care Teams Towboat Captain Relationship Specialty Start Date End Date Wiley Thompson MD PCP - General Internal Medicine 06/04/14 01/20/22 Trina Rizo, Kathy Fried MD [address] [place] [address] PCP - General Internal Medicine 01/21/22 Kaemron Zuñiga MD Manager Clinical Informatics Cardiovascular Disease 08/04/21 Katya Lopez NP Cardiology 08/04/21 01/30/24 Be Pacheco NP [address] [place] [address]31 Nurse Practitioner Cardiology 10/17/22 01/30/24 Maycol Infante MD [address] [place] [address]38 Specialist Pulmonology 10/19/22 Sebastian Martinez MD [address] [place] [address] Specialist Ophthalmology 03/21/23 Eve Juan MD [address] [place] [address] [place] [address] Specialist UROGYNECOLOGY 03/21/23 Elisa Romero NP [address] [place] [address] [place] [address] Cardiology 01/31/24 Marcus Murcia DO [address] [place] [address] [place] [address] Specialist Physiatry 03/26/24 documented as of this encounter
--- OUTSIDE RECORDS SUMMARY | 2024-10-08 12:05 | XMS_ITS | Clinical Summary ---
Author Organization [facility] Address [address] [place] [address] Care Team Providers Care Certified Medication Technician Name Role Phone Pito Thompson MD Primary Care Provider [phone] Allergies No known active allergies Medications aspirin enteric coated (ECOTRIN LOW STRENGTH) 81 MG EC tabletIndication s:Coronary artery disease involving [place] heart, unspecified vessel or lesion type, unspecified whether angina present Take 1 tablet (81 mg total) by mouth daily. Do not start before July 29, 2021. 30 tablet 2 Active isosorbide mononitrate (IMDUR) 30 MG 24 hr tablet Take 30 mg by mouth daily. Active metoPROLOL SUCCINATE (TOPROL-XL) 50 MG 24 hr tablet Take 100 mg by mouth daily. 1 Active olmesartan (BENICAR) 5 MG tablet Take 5 mg by mouth daily. 1 Active amitriptyline (ELAVIL) 10 MG tabletIndication s:Nonintractable headache, unspecified chronicity pattern, unspecified headache type Take 1 tablet (10 mg total) by mouth nightly. 14 tablet 2 Active Active Problems Problem Noted Date Diagnosed Date Hypotension 07/24/2021 Social History Tobacco Use Types Packs/Day Years Used Date Smoking Tobacco: Never Assessed Comments Unknown Sex and Gender Information Value Date Recorded Sex Assigned at Not on file Legal Sex Female 6:24 PM EST Gender Identity Not on file [...] series) 10/08/2019 Influenza Vaccine 01/18/2024 COVID-19 Vaccine ( - 2023-2 5 season) 2024 Hepatitis B Vaccines Aged Out No long er eligible based on patient's age to complete this topic [place] [facility] [place] [id number] Advance Directives * Full Code (Latest Code Status on File) Date Activated Date Inactivated Comments 07/24/2021 9:24 PM Care Teams Certified Medication Technician Relationship Specialty Start Date End Date Pito Thompson MD [address] [place] [address] PCP - General 07/25/21
--- OUTSIDE RECORDS SUMMARY | 2024-10-08 12:05 | XMS_ITS | Encounter Summary ---
Author Organization [facility] Address [address] [place] [address] Care Team Providers Care Soft Water Mechanic Name Role Phone Wiley Thompson MD Primary Care Provider Kameron Cornejo MD Unavailable Katya Lopez NP Unavailable Unavailab Kathy Haley MD Primary Care Prov ider Be Pacheco NP Unavailable [phone] Maycol Infante MD Unavailable Unavailable Sebastian Martinez MD Unavailable UnavailEve Blackmon MD Unavailable Elisa Romero NP Unavailable [phone] Marcus Murcia DO Unavailable Unavailable Encounter Details Date Type Department Care Team Description 08/19/2021 Blanket Cutter Hand Report Medical Records [address] [place] [address] Tyson Hunter Social History Tobacco Use Types [...] on filedocumented in this encounter Care Teams Soft Water Mechanic Relationship Specialty Start Date End Date Wiley Thompson MD PCP - General Internal Medicine 06/04/14 01/20/22 Kathy Christopher MD [address] [place] [address] 22598 PCP - General Internal Medicine 01/21/22 Kameron Zuñiga MD Director Of Manufacturing Operations Cardiovascular Disease 08/04/21 Katya Lopez NP Cardiology 08/04/21 01/30/24 Be Pacheco NP [address] [place] [address] 39811 Nurse Practitioner Cardiology 10/17/22 01/30/24 Maycol Infante MD [address] [place] [address] Specialist Pulmonology 10/19/22 Sebastian Martinez MD [address] [place] [address]144 Specialist Ophthalmology 03/21/23 Eve Juan MD [address] [place] [address] [place] [address] Specialist UROGYNECOLOGY 03/21/23 Elisa Romero NP [address] [place] [address] [place] [address] Cardiology 01/31/24 Marcus Murcia DO [address] [place] [address] [place] [address] Specialist Physiatry 03/26/24 documented as of this encounter
--- OUTSIDE RECORDS SUMMARY | 2024-10-08 12:05 | XMS_ITS | Encounter Summary ---
Author Organization [facility] Address [address] [place] [address] Care Team Providers Care Route Sales Manager Name Role Phone Wiley Thompson MD Primary Care Provider Kameron Cornejo MD Unavailable Katya Lopez NP Unavailable Unavailab Kathy Haley MD Primary Care Prov ider Be Pacheco NP Unavailable [phone] Maycol Infante MD Unavailable Unavailable Sebastian Martinez MD Unavailable UnavailEve lBackmon MD Unavailable Elisa Romero NP Unavailable [phone] Marcus Murcia DO Unavailable Unavailable Encounter Details Date Type Department Care Team Description 02/28/2019 Correctional Classification Counselor Report Medical Records [address] [place] [address] Vivek Johnson Social History Tobacco Use Types [...] on filedocumented in this encounter Care Teams Route Sales Manager Relationship Specialty Start Date End Date Wiley Thompson MD PCP - General Internal Medicine 06/04/14 01/20/22 Kathy Christopher MD [address] [place] [address] PCP - General Internal Medicine 01/21/22 Kameron Zuñiga MD Burlap Worker Cardiovascular Disease 08/04/21 Katya Lopez NP Cardiology 08/04/21 01/30/24 Be Pacheco NP [address] [place] [address] Nurse Practitioner Cardiology 10/17/22 01/30/24 Maycol Infante MD [address] [place] [address] Specialist Pulmonology 10/19/22 Sebastian Martinez MD [address] [place] [address] Specialist Ophthalmology 03/21/23 Eve Juan MD [address] [place] [address] [place] [address] Specialist UROGYNECOLOGY 03/21/23 Elisa Romero NP [address] [place] [address] [place] [address] Cardiology 01/31/24 Marcus Murcia DO [address] [place] [address] [place] [address] Specialist Physiatry 03/26/24 documented as of this encounter
--- OUTSIDE RECORDS SUMMARY | 2024-10-08 12:05 | XMS_ITS | Clinical Summary ---
Author Organization [facility] Address [address] [place] [address] Phone Care Team Providers Care Wood Borer Name Role Phone Kathy Perez MD Primary [...] WITH EACH FLARE 12 tablet 5 Active cefuroxime (CEFTIN) 250 mg tablet Take 1 tablet (250 mg total) by mouth 2 (two) times a day. for 7 days 5 Active phenazopyridine (PYRIDIUM) 100 mg tablet Take 1 tablet (100 mg total) by mouth 3 (three) times a day if needed for bladder spasms for up to 15 days. 30 tablet 5 10/19/19 25 Active Active Problems Problem Noted Date Diagnosed Date Osteoarthritis 04/23/2024 Class 1 obesity due to exces s calories with serious comorbidity and body mass index (BMI) of 32.0 to 32.9 in adult 04/23/2024 Mucopurulent chronic bronchitis ([facility] V24, CM S/[facility] V28) 05/24/2023 Palpitations 05/24/2023 Chronic heart failure with p reserved ejection fraction ([facility] V24, [facility] V28) 11/24/2022 Assessment & Plan (06/04/2024 4:36 [...] Chest pain 11/18/2022 CHF (congestive heart failure) ([facility] V24, CMS /[facility] V28) 11/18/2022 Assessment & Plan (07/30/2024 3:00 [...] disease, without long-term current use of insulin ([facility], [facility] V28) 11/04/2019 Mammographic microcalcification 01/10/2019 Hearing decreased, bilateral 12/18/2018 COPD (chronic obstructive pu lmonary disease) ([facility] V24, [facility] V28) 12/10/2018 Assessment & Plan (07/30/2024 3:00 PM EST): Recent exacerbation, was evaluated in the emergency. Started on prednisone. Currently stable. Supplemental oxygen dependent 12/10/2018 Obstructive sleep apnea 11/21/2018 Overview (04/23/2024): [facility] Home Sleep Apnea Test: Date 11/18/2018; Wt 192#; BMI 33; HAYLEY 16, AI 1; HI 14; Unclassified apneas 0; Obstructive apneas 10; Central apneas 0; Mixed apneas 0; hypopneas 126; average oxygen saturation 88% (lowest 73% with saturations <88% for 5% or more of study) [facility] Polysomnogram treatment study. Date [...] kidney disease) stage 3, GFR 30-59 ml/min ([facility] V24, [facility] V28) 05/31/2017 Assessment & Plan (07/30/2024 3:00 PM EST): GFR around 50. Stable over the last year. Encouraged to avoid nephrotoxics, good control of diabetes and hypertension were discussed with the patient. Iron deficiency anemia due to chronic blood loss 08/18/2016 IBS (irritable bowel syndrome) 03/25/2016 Recurrent HSV (herpes simplex virus) 12/11/2015 Diabetes mellitus type 2 wit h neurological manifestations ([facility] V24, [facility] V28) 08/01/2015 Overview (04/23/2024): A1C 6.5 09/28 [...] x1 06/2015 Coronary artery disease invo lving cantwell coronary artery of cantwell heart without angina pectoris 01/21/2015 Overview (04/23/2024): [...] Gastroparesis 07/17/2012 Overview (04/23/2024): Dr. Stephenson at [address] [place] [address] GERD (gastroesophageal reflux disease) 3 Insomnia 07/17/2012 [...] Encounters Date Type Department Care Team Description 10/03/2024 10:00 AM EDT Office Visit Adult Medicine [address] [phone] Kathy Nino MD Recurrent UTI (urinary tract infection) (Primary Dx); Urinary tract infection without hematuria, site unspecified; Encounter for screening involving social determinants of health (SDoH) 10/03/2024 Telephone [facility] Cardiology [facility] [address] [facility] [address] [place] [phone] Kameron Zuñiga MD Appointment 10/01/2024 Telephone Adult Medicine [address] [phone] Kathy Nino MD Abdominal Pain 09/25/2024 Telephone Adult Medicine [address] [phone] Kathy Nino MD UTI 09/12/2024 11:30 AM EDT Ancillary Procedure [facility] Cardiology [facility] [address] [facility] [address] [place] [phone] Coronary artery disease involving cantwell coronary artery of cantwell heart without angina pectoris; Peripheral edema; SOTELO (dyspnea on exertion); Chronic heart failure with preserved ejection fraction (CMS/HCC V24, CMS/HCC V28) 09/06/2024 Telephone Adult Medicine [address] [phone] Kathy Nino MD Referral 08/27/2024 11:33 AM EDT Anesthesia Event [facility] [address] [place] [address] Negro Velasco MD 08/27/2024 10:04 AM EDT - 08/27/2024 11:59 PM EDT Hospital Encounter [facility] [address] [place] [phone] Marcus Murcia DO Chang, Daniel J, MD Radiculopathy, cervical region Discharge Disposition: Home or Self Care 08/27/2024 9:08 AM EDT - 08/27/2024 11:59 PM EDT Hospital Encounter [facility] [address] [place] [phone] Pain Discharge Disposition: Home or Self Care 08/13/2024 Telephone [facility] [address] [place] [phone] Kameron Zuñiga MD testing 07/30/2024 1:15 PM EST Office Visit Adult Medicine [address] [phone] Kathy Nino MD Diabetes mellitus type 2 with neurological manifestations ([facility] V24, [facility] V28) (Primary Dx); Primary hypertension; Mixed hyperlipidemia; Stage 3a chronic kidney disease ([facility]/HCC V24, CMS/HCC V28); Chronic obstructive pulmonary disease, unspecified COPD type (CMS/HCC V24, CMS/HCC V28); Congestive heart failure, unspecified HF chronicity, unspecified heart failure type ([facility] V24, CMS/[facility] V28); Urinary incontinence, unspecified type 07/30/2024 8:20 AM EST Anesthesia Event [facility] [address] [place] [phone] Negro Velasco MD Fox, Jillian, [place] 07/30/2024 8:12 AM EST - 07/30/2024 11:59 PM EST Hospital Encounter [facility] [address] [place] [phone] Marcus Murcia DO Chang, Daniel J, MD Barnes, Tyanna R, BODS DEVELOPER Radiculopathy, cervical region Discharge Disposition: Home or Self Care 07/24/2024 9:30 AM EST Ancillary Procedure [facility] [address] [place] [address] Coronary artery disease involving cantwell coronary artery of cantwell heart without angina pectoris; SOTELO (dyspnea on exertion) 07/22/2024 2:45 PM EST - 07/22/2024 11:59 PM EST [facility] [address] [place] [phone] Pneumonia of both lower lobes due to infectious organism Discharge Disposition: Home or Self Care 07/18/2024 Telephone Adult Medicine [facility] [address] [place] [phone] Amy Carlton LPN Fitting for DME (Faxed form from [place]); Appointment from Last 3 Months Immunizations Name [...] PROCEDURE:TUBAL LIGATION OTHER SURGICAL HISTORY 2007 PROCEDURE: SC CORRECTION HAMMERTOE; COMMENT: FOOT SURGERY PROCEDURE: HISTORICAL FOOT SURGERY; COMMENT: 18 y/o bunionectomy UPPER GASTROINTESTINAL ENDOSCOPY 03/22/2012 PROCEDURE: SC UPPER GI ENDOSCOPY PERFORMED; COMMENT: Normal study UPPER GASTROINTESTINAL ENDOSCOPY 11/27/2015 PROCEDURE: SC UPPER GI ENDOSCOPY PERFORMED; COMMENT: Gastritis and polyp. Normal Esophagus and duodenum. UPPER GASTROINTESTINAL ENDOSCOPY 2012 PROCEDURE: SC UPPER GI ENDOSCOPY PERFORMED; COMMENT: FOR GERD BLADDER SUSPENSION 05/29/2018 PROCEDURE: HISTORICAL BLADDER SUSPENSION CYSTOSCOPY 03/18/2019 PROCEDURE: HISTORICAL CYSTOSCOPY; COMMENT: Normal COLONOSCOPY 06/2005 PROCEDURE: HISTORICAL COLONOSCOPY; COMMENT: tubular adenoma COLONOSCOPY 06/2010 PROCEDURE: HISTORICAL COLONOSCOPY; COMMENT: negative COLONOSCOPY 12/16/2015 PROCEDURE: HISTORICAL COLONOSCOPY; COMMENT: tubular adenoma CARDIAC CATHETERIZATION 09/26/2014 PROCEDURE: HISTORICAL CARDIAC CATH; COMMENT: RCA stent [facility], Dr Hernandez UPPER GASTROINTESTINAL ENDOSCOPY 08/18/2004 PROCEDURE: SC UPPER GI ENDOSCOPY PERFORMED FOOT SURGERY 12/2013 PROCEDURE: HISTORICAL FOOT SURGERY; COMMENT: for second toe arthroplasty SHOULDER SURGERY Left PROCEDURE: HISTORICAL SHOULDER SURGERY; COMMENT: Arthroscopy with Dr. Berg KNEE SURGERY Left PROCEDURE: HISTORICAL KNEE SURGERY; COMMENT: Arthroscopy Medical History Medical History Date Comments Hypertension DX:Hypertension COPD (chronic obstructive pu lmonary disease) ([facility] V24, [facility] V28) DX:COPD (chronic o bstructive pulmonary disease) (HCC) Heart failure (CMS/[facility] V24, [facility] V28) DX:Heart failure (HCC) Diabetes mellitus ([facility] V 24, [facility] V28) DX:Diabetes mellitus ([facility]) Asthma 07/17/2012 DX:Asthma HTN (hypertension) 07/17/2012 [...] mellitus type 2 wit h neurological manifestations (CMS/HCC V24, CMS/HCC V28) 08/01/2015 DX:Diabetes mellitus type 2 with neurological manifestations (HCC); COMMENT: [...] drink = 0.6 oz pur e alcohol) Housing Instability Answer Date Recorde d Are you worried that in the next 2 months you may not have stable housing? No 10/03/2024 Food Access & Nutrition Answer Date Rec orded Do you have access to a vari ety of food including fruits and vegetables? Yes 10/03/2024 Health Literacy Answer Date Recorded How often do you need to hav e someone help you when you read instructions, pamphlets, or other written material from your doctor or pharmacy? Never 10/03/2024 Caregiver: How often do you need to have someone help you when you read instructions, pamphlets, or other written material from your doctor or pharmacy? Not on file 10/03/2024 Financial Risk Answer Date Recorded How hard is it for you to pa y for the very basics like food, housing, medical care, and air conditioning / heating? Not very hard 10/03/2024 Transportation Answer Date Recorded Has the lack of transportati on kept you from meetings, work, or from getting things needed for daily living? No Has the lack of transportati on kept you from medical appointments or from getting medications? No 10/03/2024 Social Isolation Answer Date Recorded How often do you feel lonely or isolated from th ose around you? Never 10/03/2024 Food Risk Answer Date Recorded Within the past 12 months we worried whether our food would run out before we got money to buy more. Never true 10/03/2024 Within the past 12 months th e food we bought just didn't last and we didn't have money to get more. Never true 10/03/2024 Dependent Care Answer Date Recorded Do you need help finding or paying for care for your loved ones. For example, child welfare manager or elderly care for an older adult? No 10/03/2024 Education Answer Date Recorded Do you think completing more education or training, like finishing a GED, going to college, or learning a trade, would be helpful for you? No 10/03/2024 Employment and Income Answer Date Recor ded During the last four weeks, have you been actively looking for work? No 10/03/2024 Living Situation Answer Date Recorded What is your living situation? 0 10/03/2024 Interpersonal Safety Answer Date Record ed Physical [...] Sign Reading Time Taken Comments Blood Pressure 114/73 10/03/2024 9:53 AM EDT Pulse 100 10/03/2024 9:53 AM EDT Temperature 36 ??C (96.8 ??F) 10/03/2024 9:53 AM EDT Respiratory Rate 14 10/03/2024 9:53 AM EDT Oxygen Saturation 97% 08/27/2024 12: 22 PM EDT Inhaled Oxygen Concentration - - Weight 84.7 kg (186 lb 12.8 oz) 10/03/2024 9:53 AM EDT Height 162.6 cm (5' 4 ) 10/03/2024 9:53 AM EDT Body Mass Index 32.06 10/03/2024 9:53 AM EDT Plan of Treatment Upcoming Encounters Date Type Department Care Team (Late st Contact Info) Description 01/28/2025 1:15 PM EDT Office Visit Adult Medicine [facility] [address] [place] [phone] Kathy Perez MD [address] [place] [address] Health Maintenance Due Date Last Done Comments Zoster Vaccines (1 of 2) 1994 Osteoporosis Screening (Bone Density Screening) 05/28/2022 COVID-19 Vaccine ( season) 2024 05/02/2023, 05/24/2022, 04/28/2021, Additional history exists Diabetes: Annual Retina Eye Exam 11/27/2024 11/28/2023 Diabetes: Annual Foot Exam 12/03/2024 12/04/2023 Diabetes: Blood Sugar Control Test (HGBA1C) 02/26/2025 08/26/2024, 03/26/2024, 03/26/2024, Additional history exists Depression Screening 03/26/2025 03/26/2024 Medicare Annual Wellness Visit 03/26/2025 03/26/2024 Falls Risk Assessment 08/27/2025 08/27/2024, 024 Diabetes: Annual Urine Albumin-Creatinine Ratio (uACR) 09/23/2025 09/23/2024, 09/23/2024, 03/26/2024 Diabetes: Annual GFR (Glomerular Filtration Rate) 09/23/2025 09/23/2024, 08/26/2024, 03/26/2024, Additional history exists Hypertension/CHF/CAD Annual BMP Blood Test 09/23/2025 09/23/2024, 08/26/2024, 03/26/2024, Additional history exists Social Influencers of Health Screening 10/03/2025 10/03/2024 Cholesterol Screening (Lipid Panel) 08/26/2029 08/26/2024, 03/26/2024, [...] PM EDT Stage 3b chronic kidney disease ([facility] V24, [facility] V28) Type 2 diabetes mellitus with ESRD (end-stage renal disease) ([facility], [facility] V28) Renal osteodystrophy MICROALBUMIN CREATININE URINE RATIO Routine 09/23/2024 3:26 PM EDT Stage 3b chronic kidney disease ([facility] V24, [facility] V28) Type 2 diabetes mellitus with ESRD (end-stage renal disease) ([facility] V24, [facility] V28) Renal osteodystrophy PROTEIN AND CREATININE WITH RATIO, URINE Routine 09/23/2024 3:26 PM EDT Stage 3b chronic kidney disease ([facility] V24, [facility] V28) Type 2 diabetes mellitus with ESRD (end-stage renal disease) ([facility] V24, CMS/HCC V28) Renal osteodystrophy URINALYSIS WITH REFLEX MICROSCOPIC Routine 09/23/2024 3:26 PM EDT Stage 3b chronic kidney disease (CMS/HCC V24, CMS/HCC V28) Type 2 diabetes mellitus with ESRD (end-stage renal disease) (CMS/HCC V24, CMS/HCC V28) Renal osteodystrophy PARATHYROID HORMONE INTACT Routine 09/23/2024 3:23 PM EDT Stage 3b chronic kidney disease (CMS/HCC V24, CMS/HCC V28) Type 2 diabetes mellitus with ESRD (end-stage renal disease) (CMS/HCC V24, CMS/HCC V28) Renal osteodystrophy RENAL FUNCTION PANEL Routine [...] disease) (CMS/HCC V24, CMS/HCC V28) Renal osteodystrophy SC PROTEIN ELECTROPHORETIC FRACTIONATION & QUANTITATION SERUM Routine [...] 12:00 PM EDT Coronary artery disease involving cantwell coronary artery of cantwell heart without angina pectoris Peripheral edema SOTELO [...] 11:03 AM EDT Coronary artery disease involving cantwell coronary artery of cantwell heart without angina pectoris Hyperlipidemia, unspecified hyperlipidemia type BASIC METABOLIC PANEL Routine 08/26/2024 11:03 AM EDT Chronic heart failure with preserved ejection fraction (CMS/HCC V24, CMS/HCC V28) MAGNESIUM Routine 08/26/2024 11:03 AM EDT Chronic heart failure with preserved ejection fraction (CMS/HCC V24, CMS/HCC V28) HEMOGLOBIN A1C Routine 08/26/2024 11:03 AM EDT 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 V24, CMS/HCC V28) POCT GLUCOSE BLOOD Routine 07/30/2024 8: 23 AM EST NM LEXISCAN STRESS TEST W/ MYOCARDIAL PERFUSION Routine 07/24/2024 11:50 AM EST Coronary artery disease involving cantwell coronary artery of cantwell heart without angina pectoris SOTELO (dyspnea on [...] with reflex microscopic (09/23/2024 3:26 PM EDT) [facility] Specific [place] Urine 1.016 1.003 - 1.030 LAB URINALYSIS - AUTOMATED METHOD 09/23/2024 4:54 PM [facility] pH, Urine 6.0 5.0 - 8.0 pH LAB URINALYSIS - AUTOMATED METHOD 09/23/2024 4:54 PM [facility] Leukocytes, Urine Large(A) Negative LAB URINALYSIS - AUTOMATED METHOD 09/23/2024 4:54 PM [facility] Nitrite, Urine Negative Negative LAB URINALYSIS - AUTOMATED METHOD 09/23/2024 4:54 PM [facility] Protein, Urine Trace <=Trace mg/dL LAB URINALYSIS - AUTOMATED METHOD 09/23/2024 4:54 PM [facility] Glucose, Urine Negative Negative mg/dL LAB URINALYSIS - AUTOMATED METHOD 09/23/2024 4:54 PM [facility] Ketones, Urine Negative Negative mg/dL LAB URINALYSIS - AUTOMATED METHOD 09/23/2024 4:54 PM [facility] Urobilinogen, Urine 1.0 0.2 - 1.0 mg/dL LAB URINALYSIS - AUTOMATED METHOD 09/23/2024 4:54 PM [facility] Bilirubin, Urine Negative Negative LAB URINALYSIS - AUTOMATED METHOD 09/23/2024 4:54 PM [facility] Blood, Urine Negative Negative LAB URINALYSIS - AUTOMATED METHOD 09/23/2024 4:54 PM [facility] RBC, Urine 2.7 0 - 4 /HPF LAB URINALYSIS - AUTOMATED METHOD 09/23/2024 4:54 PM [facility] WBC, Urine 115.5(H) 0 - 4 /HPF LAB URINALYSIS - AUTOMATED METHOD 09/23/2024 4:54 PM [facility] Squamous Epithelial, Urine 15 0 - 60 /LPF LAB URINALYSIS - AUTOMATED METHOD 09/23/2024 4:54 PM [facility] Bacteria, Urine Negative Negative /HPF LAB URINALYSIS - AUTOMATED METHOD 09/23/2024 4:54 PM EDT [facility] Hyaline Casts, Urine 2.8 0 - 3 /LPF LAB URINALYSIS - AUTOMATED METHOD 09/23/2024 4:54 PM EDT [facility] Urine Urine specimen obtained by clean catch procedure / Unknown Non-blood Collection / Unknown 09/23/2024 3:26 PM EDT 09/23/2024 3:26 PM EDT us Everton Riddle MD LAB URINE ORDERABLES Final Re sult Performing Organization Address City/[facility]/ZIP Co de Phone Number [facility] [address] [place] [address], [place] [phone] * (ABNORMAL) Protein and creatinine with ratio, urine (09/23/2024 3:26 PM EDT) Protein, Urine 27 mg/dL LAB CHEMISTRY METHOD 09/23/2024 6:12 PM EDT [facility] Prot/Creat, Ur 0.24(H) <=0.20 mg/mg creat LAB CHEMISTRY METHOD 09/23/2024 6:12 PM EDT [facility] Creatinine, Urine 112.0 mg/dL LAB CHEMISTRY METHOD 09/23/2024 6:12 PM EDT [facility] Urine Urine specimen obtained by clean catch procedure / Unknown Non-blood Collection / Unknown 09/23/2024 3:26 PM EDT 09/23/2024 3:26 PM EDT us Everton Riddle MD LAB URINE ORDERABLES Final Re sult Performing Organization Address City/[facility]/ZIP Co de Phone Number [facility] [address] [place] [address], [place] [phone] * (ABNORMAL) Microalbumin creatinine urine ratio (09/23/2024 3:26 PM EDT) Creatinine, Urine 112.0 mg/dL LAB CHEMISTRY METHOD 09/23/2024 6:21 PM EDT [facility] Microalb, Ur 81.4(H) 0.0 - 29.0 mg/L LAB CHEMISTRY METHOD 09/23/2024 6:21 PM EDT [facility] Microalb/Crea t Ratio 73(H) <30 mg/g creat LAB CHEMISTRY METHOD 09/23/2024 6:21 PM EDT [facility] Urine Urine specimen obtained by clean catch procedure / Unknown Non-blood Collection / Unknown 09/23/2024 3:26 PM EDT 09/23/2024 3:26 PM EDT us Everton Riddle MD LAB URINE ORDERABLES Final Re sult Performing Organization Address City/[facility]/ZIP Co de Phone Number [facility] [address] [place] [address], [place] [phone] * Hepatitis C antibody (09/23/2024 3:23 PM EDT) [facility] Hepatitis C Antibody Negative Negative LAB CHEMISTRY METHOD 09/23/2024 6:53 PM EDT [facility] Blood Venous blood specimen / Unknown Venipuncture / Unknown 09/23/2024 3:23 PM EDT 09/23/2024 3:23 PM EDT Everton Riddle MD LAB BLOOD ORDERABLES Final Re sult [facility] [address] [place] [address], [place] [phone] * Hepatitis B surface antigen with reflex to confirmation (09/23/2024 3:23 PM EDT) [facility] Hepatitis B Surface Ag Negative Negative LAB CHEMISTRY METHOD 09/23/2024 6:25 PM EDT [facility] Blood Venous blood specimen / Unknown Venipuncture / Unknown 09/23/2024 3:23 PM EDT 09/23/2024 3:23 PM EDT Narrative [facility] - 09/23/2024 6:25 PM EDT Over the counter supplements containing high doses of biotin may interfere with this assay. ??If interference is suspected, patients shoud be retested after refraining from biotin supplements for 72 hours. Everton Riddle MD LAB BLOOD ORDERABLES Final Re sult Performing Organization Address [facility] de Phone Number [facility] [address] [place] [address], * Hepatitis B core antibody IgM (09/23/2024 3:23 PM EDT) Hep B Core IgM Negative Negative LAB CHEMISTRY METHOD 09/23/2024 8:32 PM EDT [facility] Blood Venous blood specimen / Unknown Venipuncture / Unknown 09/23/2024 3:23 PM EDT 09/23/2024 3:23 PM EDT Narrative [facility] - 09/23/2024 8:32 PM EDT Over the counter supplements containing high doses of biotin may interfere with this assay. ??If interference is suspected, patients shoud be retested after refraining from biotin supplements for 72 hours. Everton Riddle MD LAB BLOOD ORDERABLES Final Re sult Performing Organization Address [facility]/ZIP Co de Phone Number [facility] [address] [place] [address], [place] [phone] * Hepatitis B surface antibody quantitative (09/23/2024 3:23 PM EDT) Hepatitis B Surface Ab Negative Negative LAB CHEMISTRY METHOD 09/23/2024 6:14 PM EDT [facility] Hepatitis B Surface Ab Quantitative <3.1 mIU/mL LAB CHEMISTRY METHOD 09/23/2024 6:14 PM EDT [facility] Blood Venous blood specimen / Unknown Venipuncture / Unknown 09/23/2024 3:23 PM EDT 09/23/2024 3:23 PM EDT Narrative [facility] - 09/23/2024 6:14 PM EDT >=10 mIU/mL is considered to be consistent with immunity. us Everton Riddle MD LAB BLOOD ORDERABLES Final Re sult Performing Organization Address [facility]/ZIP Co de Phone Number [facility] [address] [place] [address], [place] [phone] * Vitamin D 25 hydroxy (09/23/2024 3:23 PM EDT) Vit D, 25-Hydroxy 48.9 30.0 - 80.0 ng/mL LAB CHEMISTRY METHOD 09/23/2024 6:14 PM EDT [facility] Blood Venous blood specimen / Unknown Venipuncture / Unknown 09/23/2024 3:23 PM EDT 09/23/2024 3:23 PM EDT us Everton Riddle MD LAB BLOOD ORDERABLES Final Re sult Performing Organization Address [facility]/ZIP Co de Phone Number [facility] [address] [place] [address], [place] [phone] * C3 complement (09/23/2024 3:23 PM EDT) C3 Complement 176 88 - 201 mg/dL LAB CHEMISTRY METHOD 09/23/2024 5:01 PM EDT [facility] Blood Venous blood specimen / Unknown Venipuncture / Unknown 09/23/2024 3:23 PM EDT 09/23/2024 3:23 PM EDT us Everton Riddle MD LAB BLOOD ORDERABLES Final Re sult Performing Organization Address [facility]/ZIP Co de Phone Number [facility] [address] [place] [address], * (ABNORMAL) C4 complement (09/23/2024 3:23 PM EDT) C4 Complement 50(H) 16 - 47 mg/dL LAB CHEMISTRY METHOD 09/23/2024 5:01 PM EDT [facility] Blood Venous blood specimen / Unknown Venipuncture / Unknown 09/23/2024 3:23 PM EDT 09/23/2024 3:23 PM EDT Everton Riddle MD LAB BLOOD ORDERABLES Final Re sult Performing Organization Address [facility] Co de Phone Number [facility] [address] [place] [address], * Parathyroid hormone intact (09/23/2024 3:23 PM EDT) Pathologist [facility] PTH 41.7 18.5 - 88.0 pcg/mL LAB CHEMISTRY METHOD 09/23/2024 7:52 PM EDT [facility] Blood Venous blood specimen / Unknown Venipuncture / Unknown 09/23/2024 3:23 PM EDT 09/23/2024 3:23 PM EDT Everton Riddle MD LAB BLOOD ORDERABLES Final Re sult Performing Organization Address City/[facility]/ZIP Co de Phone Number [facility] [address] [place] [address], * (ABNORMAL) Magnesium (09/23/2024 3:23 PM EDT) Only the most recent of2 resultswithin the time period is included. Magnesium 1.6(L) 1.9 - 2.6 mg/dL LAB CHEMISTRY METHOD 09/23/2024 5:01 PM [facility] Blood Venous blood specimen / Unknown Venipuncture / Unknown 09/23/2024 3:23 PM EDT 09/23/2024 3:23 PM EDT us Everton Riddle MD LAB BLOOD ORDERABLES Final Re sult [facility] [address] [place] [address], * (ABNORMAL) Renal function panel (09/23/2024 3:23 PM EDT) Sodium 144 133 - 145 mmol/L LAB CHEMISTRY METHOD 09/23/2024 5:01 PM [facility] Potassium 4.0 3.5 - 5.5 mmol/L LAB CHEMISTRY METHOD 09/23/2024 5:01 PM [facility] Chloride 109 96 - 110 mmol/L LAB CHEMISTRY METHOD 09/23/2024 5:01 PM [facility] CO2 31 21 - 32 mmol/L LAB CHEMISTRY METHOD 09/23/2024 5:01 PM [facility] Anion Gap 4 3 - 11 LAB CHEMISTRY METHOD 09/23/2024 5:01 PM [facility] Glucose 119(H) 70 - 100 mg/dL LAB CHEMISTRY METHOD 09/23/2024 5:01 PM [facility] BUN 15 5 - 25 mg/dL LAB CHEMISTRY METHOD 09/23/2024 5:01 PM [facility] Creatinine 1.04 0.50 - 1.10 mg/dL LAB CHEMISTRY METHOD 09/23/2024 5:01 PM [facility] eGFR 55(L) >=60 mL/min/1. 73m2 LAB CHEMISTRY METHOD 09/23/2024 5:01 PM [facility] Comment:Calculation based on the??Chronic Kidney Disease Epidemiology Collaboration (CKD-EPI) equation refit??without adjustment for race. BUN/Creatinine Ratio 14.4 LAB CHEMISTRY METHOD 09/23/2024 5:01 PM EDT [facility] Albumin 3.4 3.2 - 5.0 g/dL LAB CHEMISTRY METHOD 09/23/2024 5:01 PM EDT [facility] Calcium 9.3 8.5 - 10.5 mg/dL LAB CHEMISTRY METHOD 09/23/2024 5:01 PM EDT [facility] Phosphorus 3.9 2.5 - 4.5 mg/dL LAB CHEMISTRY METHOD 09/23/2024 5:01 PM EDT [facility] Blood Venous blood specimen / Unknown Venipuncture / Unknown 09/23/2024 3:23 PM EDT 09/23/2024 3:23 PM EDT Everton Riddle MD LAB BLOOD ORDERABLES Final Re sult [facility] [address] [place] [address], [place] [phone] * PATHOLOGIST REVIEW PROTEIN ELECTROPHORESIS (09/23/2024 3:22 PM EDT) Pathologist Interpretation Tiesha Gonzalez MD 09/24/2024 11:05 AM EDT [facility] Blood Venous blood specimen / Unknown Venipuncture / Unknown 09/23/2024 3:22 PM EDT 09/23/2024 3:22 PM EDT us Everton Riddle MD LAB BLOOD ORDERABLES Final Re sult [facility] [address] [place] [address], [place] [phone] * [place]-lambda free light chains, quantitative (09/23/2024 3:22 PM EDT) [place] Free Light Chain 1.48 0.33 - 1.94 mg/dL 09/26/2024 12:42 PM EDT [facility] Lambda Free Light Chain 2.11 0.57 - 2.63 mg/dL 09/26/2024 12:42 PM EDT [facility] [place]/Lambda FLC Ratio 0.70 0.26 - 1.65 09/26/2024 12:42 PM EDT [facility] Comment: Test performed at [facility], [address] , [place], [place] ??[address] ? [phone] Anca Gallegos MD, PhD - Restaurant Hospitality Manager Blood Venous blood specimen / Unknown Venipuncture / Unknown 09/23/2024 3:22 PM EDT 09/23/2024 3:22 PM EDT Everton Riddle MD LAB BLOOD ORDERABLES Final Re sult [facility] [address] [place] [address] * [place] IFA with titer and pattern (09/23/2024 3:22 PM EDT) [facility] M[place]ISON Negative Negative 09/25/2024 2:04 PM EDT [facility] Blood Venous blood specimen / Unknown Venipuncture / Unknown 09/23/2024 3:22 PM EDT 09/23/2024 3:22 PM EDT Everton Riddle MD LAB BLOOD ORDERABLES Final Re sult [facility] [address] [place] [address], [place] [phone] * (ABNORMAL) Protein electrophoresis, serum (09/23/2024 3:22 PM EDT) [facility] Total Protein 6.4 6.0 - 8.0 g/dL LAB CHEMISTRY METHOD 11:05 AM EDT [facility] Albumin, Serum 3.4 2.9 - 4.1 g/dL LAB CHEMISTRY METHOD 5 11:05 AM [facility] Alpha 1 Globulin (g/dL) 0.2 0.1 - 0.5 g/dL LAB CHEMISTRY METHOD 5 11:05 AM [facility] Alpha 2 Globulin (g/dL) 1.2 0.7 - 1.5 g/dL LAB CHEMISTRY METHOD 5 11:05 AM [facility] Beta (g/dL) 1.0 0.7 - 1.5 g/dL LAB CHEMISTRY METHOD 5 11:05 AM [facility] Gamma Globulin (g/dL) 0.6(L) 0.7 - 1.9 g/dL LAB CHEMISTRY METHOD 5 11:05 AM [facility] SPEP Interpretation No M-Antonio seen. 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 LAB CHEMISTRY METHOD 11:05 AM [facility] Blood Venous blood specimen / Unknown Venipuncture / Unknown 09/23/2024 3:22 PM EDT 09/23/2024 3:22 PM EDT us Everton Riddle MD LAB BLOOD ORDERABLES Final Re sult [facility] [address] [place] [address], * Protein, total (09/23/2024 3:22 PM EDT) Total Protein 6.4 6.0 - 8.0 g/dL LAB CHEMISTRY METHOD 09/23/2024 5:07 PM [facility] Blood Venous blood specimen / Unknown Venipuncture / Unknown 09/23/2024 3:22 PM EDT 09/23/2024 3:22 PM EDT us Everton Riddle MD LAB BLOOD ORDERABLES Final Re sult [facility] [address] [place] [address], * (ABNORMAL) Complete blood count (09/23/2024 2:15 PM EDT) [facility] WBC 9.0 4.8 - 10.8 K/mcL LAB HEMETOLOGY METHOD 09/23/2024 4:48 PM EDT [facility] RBC 3.70(L) 3.80 - 4.80 M/mcL LAB HEMETOLOGY METHOD 09/23/2024 4:48 PM EDT [facility] Hemoglobin 11.0(L) 11.5 - 16.0 g/dL LAB HEMETOLOGY METHOD 09/23/2024 4:48 PM EDT [facility] Hematocrit 33.8(L) 35.0 - 47.0 % LAB HEMETOLOGY METHOD 09/23/2024 4:48 PM EDT [facility] MCV 92.6 79.0 - 98.0 FL LAB HEMETOLOGY METHOD 09/23/2024 4:48 PM EDT [facility] MCH 30.1 27.0 - 32.0 pcg LAB HEMETOLOGY METHOD 09/23/2024 4:48 PM EDT [facility] MCHC 32.5 32.0 - 37.0 g/dL LAB HEMETOLOGY METHOD 09/23/2024 4:48 PM EDT [facility] RDW 15.8(H) 11.0 - 15.0 % LAB HEMETOLOGY METHOD 09/23/2024 4:48 PM EDT [facility] Platelets 260 130 - 400 K/mcL LAB HEMETOLOGY METHOD 09/23/2024 4:48 PM EDT [facility] MPV 10.6 7.0 - 11.0 FL LAB HEMETOLOGY METHOD 09/23/2024 4:48 PM EDT [facility] NRBC 0.0 <1.0 % LAB HEMETOLOGY METHOD 09/23/2024 4:48 PM EDT [facility] NRBC Absolute 0.00 <0.10 K/mcL LAB HEMETOLOGY METHOD 09/23/2024 4:48 PM EDT [facility] Blood Venous blood specimen / Unknown Venipuncture / Unknown 09/23/2024 2:15 PM EDT 09/23/2024 2:15 PM EDT us Everton Riddle MD LAB BLOOD ORDERABLES Final Re sult [facility] [address] [place] [address], [place] [phone] * (ABNORMAL) TRANSTHORACIC ECHOCARDIOGRAM (TTE) COMPLETE (09/12/2024 12:00 PM EDT) Left Atrium Minor [place] 4.8 cm CV PACS Left Atrium Major [place] 4.8 cm CV PACS LA Area Sys [...] Volume 39 mL CV PACS MV Deceleration [place] 4.5 m/s2 CV PACS E Wave Deceleration [...] of2 resultswithin the time period is included. [facility] Glucose POCT 101(H) 70 - 100 mg/dL 08/27/2024 9:34 AM EDT [facility] Blood Capillary blood specimen / Unknown 08/27/2024 9:33 AM EDT 08/27/2024 9:35 AM EDT Generic Provider Poct LAB POINT OF CARE TEST DOCKED DEVICE UNSOLICITED RESULTS Final Result [facility] [address] [place] [address], [place] [phone] * Lipid panel with reflex to direct LDL (08/26/2024 11:03 AM EDT) [facility] Cholesterol 141 0 - 200 mg/dL LAB CHEMISTRY METHOD 08/26/2024 2:15 PM EDT [facility] Triglycerides 117 0 - 150 mg/dL LAB CHEMISTRY METHOD 08/26/2024 2:15 PM EDT [facility] HDL 55 >=40 mg/dL LAB CHEMISTRY METHOD 08/26/2024 2:15 PM EDT [facility] LDL Calculated 63 0 - 100 mg/dL LAB CHEMISTRY METHOD 08/26/2024 2:15 PM EDT [facility] VLDL Cholesterol Gus 23.4 mg/dL LAB CHEMISTRY METHOD 08/26/2024 2:15 PM EDT [facility] Non HDL Chol. (LDL+VLDL) 86 <145 mg/dL LAB CHEMISTRY METHOD 08/26/2024 2:15 PM EDT [facility] Chol/HDL Ratio 2.6 0.0 - 4.4 LAB CHEMISTRY METHOD 08/26/2024 2:15 PM EDT [facility] Blood Venous blood specimen / Unknown Venipuncture / Unknown 08/26/2024 11:03 AM EDT 08/26/2024 11:03 AM EDT Elisa Romero NP LAB BLOOD ORDERABLES Final Result [facility] [address] [place] [address], * Hemoglobin A1c (08/26/2024 11:03 AM EDT) Hemoglobin A1C 6.4 <6.5 % LAB CHEMISTRY METHOD 08/26/2024 1:50 PM EDT [facility] Mean Bld Glu Estim. 137 mg/dL LAB CHEMISTRY METHOD 08/26/2024 1:50 PM EDT [facility] Blood Venous blood specimen / Unknown Venipuncture / Unknown 08/26/2024 11:03 AM EDT 08/26/2024 11:03 AM EDT Kathy Perez MD LAB BLOOD ORDERABL ES Final Result [facility] [address] [place] [address], [place] [phone] * (ABNORMAL) Basic metabolic panel (08/26/2024 11:03 AM EDT) Sodium 141 133 - 145 mmol/L LAB CHEMISTRY METHOD 08/26/2024 2:12 PM [facility] Potassium 4.1 3.5 - 5.5 mmol/L LAB CHEMISTRY METHOD 08/26/2024 2:12 PM [facility] Chloride 104 96 - 110 mmol/L LAB CHEMISTRY METHOD 08/26/2024 2:12 PM [facility] CO2 26 21 - 32 mmol/L LAB CHEMISTRY METHOD 08/26/2024 2:12 PM [facility] Anion Gap 11 3 - 11 LAB CHEMISTRY METHOD 08/26/2024 2:12 PM [facility] Glucose 104(H) 70 - 100 mg/dL LAB CHEMISTRY METHOD 08/26/2024 2:12 PM [facility] BUN 18 5 - 25 mg/dL LAB CHEMISTRY METHOD 08/26/2024 2:12 PM [facility] Creatinine 1.32(H) 0.50 - 1.10 mg/dL LAB CHEMISTRY METHOD 08/26/2024 2:12 PM [facility] eGFR 41(L) >=60 mL/min/1. 73m2 LAB CHEMISTRY METHOD 08/26/2024 2:12 PM [facility] Comment:Calculation based on the??Chronic Kidney Disease Epidemiology Collaboration (CKD-EPI) equation refit??without adjustment for race. BUN/Creatinine Ratio 13.6 LAB CHEMISTRY METHOD 08/26/2024 2:12 PM [facility] Calcium 9.5 8.5 - 10.5 mg/dL LAB CHEMISTRY METHOD 08/26/2024 2:12 PM [facility] Blood Venous blood specimen / Unknown Venipuncture / Unknown 08/26/2024 11:03 AM EDT 08/26/2024 11:03 AM EDT Elisa Romero [employer] LAB BLOOD ORDERABLES Final Result [facility] ([facility] [address] [place] [address], * NM LEXISCAN STRESS TEST W/ MYOCARDIAL [...] Signed Date: 07/22/2024 17:44 ET Workstation ID: [id number] Transcribed By: Self Edit Transcribed Date: 07/22/2024 17:42 ET Narrative 07/22/2024 5:44 PM EST HISTORY: pneumonia Dx at [facility]. 4 week f.u TECHNIQUE: PA and lateral radiographs of the chest COMPARISON: Chest radiograph from 06/23/2023 FINDINGS: There is a normal cardiomediastinal silhouette. ??Atherosclerosis of the thoracic aorta. ??Increased airspace opacities within the right lower lung zone. ??Mild degenerative changes of the thoracic spine. Procedure Note Moo Coyle MD - 07/22/2024 HISTORY: pneumonia Dx at [facility]. 4 week f.u TECHNIQUE: PA and lateral [...] Signed Date: 07/22/2024 17:44 ET Workstation ID: [id number] Transcribed By: Self Edit Transcribed Date: 07/22/2024 17:[address] [facility] Pau LOPEZ IMG XR PROCEDURES Final Result * Falls Risk Assessment (03/26/2024) [facility] Falls Risk Assessment Abstracted Result [facility] Provider HEALTH MAINTENANCE Final Result * Depression Screening (03/26/2024) [facility] Depression Screening Abstracted Result [facility] Provider HEALTH MAINTENANCE Final Result * Diabetes Foot Exam (12/04/2023) [facility] Diabetes: Annual Foot Exam Abstracted Result [facility] Provider HEALTH MAINTENANCE Final Result * Diabetes Eye Exam (11/28/2023) [facility] Diabetes: Annual Retina Eye Exam Abstracted Comment:External Completion of test per patient (Patient reports normal results) Result [facility] Provider HEALTH MAINTENANCE Final Result from Last 3 Months or Most Recently Relevant to Health Maintenance Insurance [employer] MEDICARE Member Subscriber Plan / Payer (Ef fective 2012-Present) Name:Franckmaxine Shea Relation to Subscriber:Self Name:Shea Ramirez Payer ID:[id number] Group ID:[id number] Type:Not on file Address: [place] [address] [place] [id number] Care Teams Wood Borer Relationship Specialty Start Date End Date Kathy Perez MD [address] [place] [id number] PCP - General Internal Medicine 07/22/24
--- OUTSIDE RECORDS SUMMARY | 2024-10-08 12:05 | XMS_ITS | Encounter Summary ---
Author Organization [facility] Address [address] [place] [address] Care Team Providers Care Wetlands Conservation Laborer Name Role Phone Wiley Thompson MD Primary Care Provider Kameron Cornejo MD Unavailable Katya Lopez BI REPORT DEVELOPER Unavailable Unavailab Kathy Christopher MD Primary Care Prov ider Be Pacheco NP Unavailable [phone] Maycol Infante MD Unavailable Unavailable Sebastian Martinez MD Unavailable UnavailEve Blackmon MD Unavailable Elisa Romero NP Unavailable [phone] Marcus Murcia DO Unavailable Unavailable Encounter Details Date Type Department Care Team Description 08/30/2019 Payloader Machine Operator Report Medical Records [address] [place] [address] Maycol Infante MD Social History Tobacco Use [...] on filedocumented in this encounter Care Teams Wetlands Conservation Laborer Relationship Specialty Start Date End Date Wiley Thompson MD PCP - General Internal Medicine 06/04/14 01/20/22 Kathy Christopher MD [address] [place] [address] PCP - General Internal Medicine 01/21/22 Kameron Zuñiga MD Bisque Kiln Placer Cardiovascular Disease 08/04/21 Katya Lopez, IRMA Cardiology 08/04/21 01/30/24 Be Pacheco NP [address] [place] [address] Nurse Practitioner Cardiology 10/17/22 01/30/24 Maycol Infante MD [address] [place] [address] Specialist Pulmonology 10/19/22 Sebastian Martinez MD [address] [place] [address] Specialist Ophthalmology 03/21/23 Eve Juan MD [address] [place] [address] [place] [address] Specialist UROGYNECOLOGY 03/21/23 Elisa Romero NP [address] [place] [address] [place] [address] Cardiology 01/31/24 Marcus Murcia DO [address] [place] [address] [place] [address] Specialist Physiatry 03/26/24 documented as of this encounter
--- OUTSIDE RECORDS SUMMARY | 2024-10-08 12:06 | XMS_ITS | Encounter Summary ---
Author Organization [facility] Address [address] [place] [address] Care Team Providers Care Mural Painter Name Role Phone Wiley Thompson MD Primary Care Provider Kameron Cornejo MD Unavailable Katya Lopez NP Unavailable Unavailab Kathy Haley MD Primary Care Prov ider Be Pacheco NP Unavailable [phone] Maycol Infante MD Unavailable Unavailable Sebastian Martinez MD Unavailable UnavailEve Blackmon MD Unavailable Elisa Romero NP Unavailable [phone] Marcus Murcia DO Unavailable Unavailable Reason for Visit * Reason Onset Date Comments Blood Sugar Elevated 11/29/2017 Encounter Details Date Type Department Care Team Description 11/29/2017 Telephone Adult Medicine [address] [address] Wiley Thompson MD Blood Sugar Elevated Social [...] symptoms?: 3 days PCP: Wiley Thompson Payor: [facility] MCR / Plan[facility] [id number] / Product Type: HMO [id number] documented in this encounter Plan of Treatment Not on file documented as of this encounter Visit Diagnoses Not on filedocumented in this encounter Care Teams Mural Painter Relationship Specialty Start Date End Date Wiley Thompson MD PCP - General Internal Medicine 06/04/14 01/20/22 Kathy Christopher MD [address] [place] [address] PCP - General Internal Medicine 01/21/22 Kameron Zuñiga MD Background Check Coordinator Cardiovascular Disease 08/04/21 Katya Lopez NP Cardiology 08/04/21 01/30/24 Be Pacheco NP [address] [place] [address] Nurse Practitioner Cardiology 10/17/22 01/30/24 Maycol Infante MD [address] [place] [address] Specialist Pulmonology 10/19/22 Sebastian Martinez MD [address] [place], [place] [phone] Specialist Ophthalmology 03/21/23 Eve Juan MD [address] [place] [address] [place] [address] Specialist UROGYNECOLOGY 03/21/23 Elisa Romero NP [address] [place] [address] [place] [address] Cardiology 01/31/24 Marcus Murcia DO [address] [place] [address] [place] [address] Specialist Physiatry 03/26/24 documented as of this encounter
--- OUTSIDE RECORDS SUMMARY | 2024-10-08 12:06 | XMS_ITS | Encounter Summary ---
Author Organization [facility] Address [address] [place] [address] Care Team Providers Care Endo Tech Name Role Phone Wiley Thompson MD Primary Care Provider Kameron Cornejo MD Unavailable Katya Lopez NP Unavailable Unavailab Kathy Christopher MD Primary Care Prov ider Be Pacheco NP Unavailable [phone] Maycol Infante MD Unavailable Unavailable Sebastian Martinez MD Unavailable UnavailEve Blackmon MD Unavailable Elisa Romero NP Unavailable [phone] Marcus Murcia DO Unavailable Unavailable Encounter Details Date Type Department Care Team Description 12/19/2014 Manager Long Term Care Report Medical Records [address] [place] [phone] Cheo Olivia Social History Tobacco Use Types [...] on filedocumented in this encounter Care Teams Endo Tech Relationship Specialty Start Date End Date Wiley Thompson MD PCP - General Internal Medicine 06/04/14 01/20/22 Kathy Christopher MD [address] [place] [address] PCP - General Internal Medicine 01/21/22 Kameron Zuñiga MD Computed Tomography Technologist Cardiovascular Disease 08/04/21 Katya Lopez NP Cardiology 08/04/21 01/30/24 Be Pacheco NP [address] [place] [address] Nurse Practitioner Cardiology 10/17/22 01/30/24 Maycol Infante MD [address] [place] [address] Specialist Pulmonology 10/19/22 Sebastian Martinez MD [address] [place], [place] [phone] Specialist Ophthalmology 03/21/23 Eve Juan MD [address] [place] [address] [place] [address] Specialist UROGYNECOLOGY 03/21/23 Elisa Romero NP [address] [place] [address] [place] [address] Cardiology 01/31/24 Marcus Murcia DO [address] [place] [address] [place] [address] Specialist Physiatry 03/26/24 documented as of this encounter
--- OUTSIDE RECORDS SUMMARY | 2024-10-08 12:06 | XMS_ITS | Encounter Summary ---
Author Organization [facility] Address [address] [place] [address] Care Team Providers Care Baler Name Role Phone Wiley Thompson MD Primary Care Provider Kameron Cornejo MD Unavailable Katya Lopez NP Unavailable Unavailab Kathy Haley MD Primary Care Prov ider Be Pacheco NP Unavailable [phone] Maycol Infante MD Unavailable Unavailable Sebastian Martinez MD Unavailable UnavailEve Blackmon MD Unavailable Elisa Romero NP Unavailable [phone] Marcus Murcia DO Unavailable Unavailable Encounter Details Date Type Department Care Team Description 02/28/2015 Hospital Medical Records [address] [place] [address] Ian Markham DO Social History Tobacco Use [...] on filedocumented in this encounter Care Teams Baler Relationship Specialty Start Date End Date Wiley Thompson MD PCP - General Internal Medicine 06/04/14 01/20/22 Kathy Christopher MD [address] [place] [address] PCP - General Internal Medicine 01/21/22 Kameron Zuñiga MD Assistant Grocery Store Manager Cardiovascular Disease 08/04/21 Katya Lopez NP Cardiology 08/04/21 01/30/24 Be Pacheco NP [address] [place] [address] Nurse Practitioner Cardiology 10/17/22 01/30/24 Maycol Infante MD [address] [place] [address] Specialist Pulmonology 10/19/22 Sebastina Martinez MD [address] [place] [address] Specialist Ophthalmology 03/21/23 Eve Juan MD [address] [place] [address] [place] [address] Specialist UROGYNECOLOGY 03/21/23 Elisa Romero NP [address] [place] [address] [place] [address] Cardiology 01/31/24 Marcus Murcia DO [address] [place] [address] [place] [address] Specialist Physiatry 03/26/24 documented as of this encounter
--- OUTSIDE RECORDS SUMMARY | 2024-10-08 12:06 | XMS_ITS | Encounter Summary ---
Author Organization [facility] Address [address] [place] [address] Care Team Providers Care Assistant Casino Shift Manager Name Role Phone Wiley Thompson MD Primary Care Provider Kameron Cornejo MD Unavailable Katya Lopez NP Unavailable Unavailab Kathy Haley MD Primary Care Prov ider Be Pacheco NP Unavailable [phone] Maycol Infante MD Unavailable Unavailable Sebastian Martinez MD Unavailable UnavailEve Blackmon MD Unavailable Elisa Romero NP Unavailable Marcus Murcia DO Unavailable Unavailable Encounter Details Date Type Department Care Team Description 05/24/2017 Printed Circuit Boards Router Report Medical Records [address] [place] [address] Be Pacheco NP [address] [place], [place] [id number] Social History Tobacco Use Types Packs/Day Years [...] filedocumented in this encounter Care Teams Assistant Casino Shift Manager Relationship Specialty Start Date End Date Wiley Thompson MD PCP - General Internal Medicine 06/04/14 01/20/22 Kathy Christopher MD [address] [place] [address] PCP - General Internal Medicine 01/21/22 Kameron Zuñiga MD Immigration Patrol Inspector Cardiovascular Disease 08/04/21 Katya Lopez NP Cardiology 08/04/21 01/30/24 Be Pacheco NP [address] [place] [address] Nurse Practitioner Cardiology 10/17/22 01/30/24 Maycol Infante MD [address] [place] [address] Specialist Pulmonology 10/19/22 Sebastian Martinez MD [address] [place] [address] Specialist Ophthalmology 03/21/23 Eve Juan MD [address] [place] [address] [place] [address] Specialist UROGYNECOLOGY 03/21/23 Elisa Romero NP [address] [place] [address] [place] [address] Cardiology 01/31/24 Marcus Murcia DO [address] [place] [address] [place] [address] Specialist Physiatry 03/26/24 documented as of this encounter
--- OUTSIDE RECORDS SUMMARY | 2024-10-08 12:06 | XMS_ITS | Encounter Summary ---
Author Organization [facility] Address [address] [place] [address] Care Team Providers Care Errand Runner Name Role Phone Wiley Thompson MD Primary Care Provider Kameron Cornejo MD Unavailable Katya Lopez NP Unavailable Unavailab Kathy Haley MD Primary Care Prov ider Be Pacheco NP Unavailable Maycol Infante MD Unavailable Unavailable Sebastian Martinez MD Unavailable UnavailEve Blackmon MD Unavailable Elisa Romero NP Unavailable [phone] Marcus Murcia DO Unavailable Unavailable Reason for Referral * Radiology Services (Routine) - Closed Specialty Diagnoses / Procedures Referred By Contac t Referred To Contact Radiology Diagnoses Recurrent sinus infections Procedures CAT SCAN OF SINUSES NO CONTRAST Leilnai Colindres APRN [address] [place] [address] [address] [place] [id number] Referral ID Status Reason Start Date Expiration Date V isits Requested Visits Authorized CCA APPROVED Closed 09/12/2017 11/11/2017 1 1 Reason for Visit * Reason Onset Date Comments Provider Call Back 09/12/2017 Encounter Details Date Type Department Care Team Description 09/12/2017 Telephone Adult Medicine [facility] [address] [place] [address] Leilani Colindres APRN Provider Call Back Social [...] disease. 5. Additional findings, as detailed above. [facility] CT SCANS JAZZMINE PADILLA OTHER EXTERNAL documented in this encounter Visit Diagnoses Diagnosis Recurrent sinus infections- Primary Unspecified sinusitis (chronic) Recurrent sinus infections Unspecified sinusitis (chronic) documented in this encounter Care Teams Errand Runner Relationship Specialty Start Date End Date Wiley Thompson MD PCP - General Internal Medicine 06/04/14 01/20/22 Kathy Christopher MD [address] [place] [address] PCP - General Internal Medicine 01/21/22 Kameron Zuñiga MD Straw Hat Brim Raiser Operator Cardiovascular Disease 08/04/21 Katya Lopez NP Cardiology 08/04/21 01/30/24 Be Pacheco NP [address] [place] [address] Nurse Practitioner Cardiology 10/17/22 01/30/24 Maycol Infante MD [address] [place] [address] Specialist Pulmonology 10/19/22 Sebastian Martinez MD [address] [place], [place] [address] Specialist Ophthalmology 03/21/23 Eve Juan MD [address] [place] [address] [place] [address] Specialist UROGYNECOLOGY 03/21/23 Elisa Romero NP [address] [place] [address] [place] [address] Cardiology 01/31/24 Marcus Murcia DO [address] [place] [address] [place] [address] Specialist Physiatry 03/26/24 documented as of this encounter
--- OUTSIDE RECORDS SUMMARY | 2024-10-08 12:06 | XMS_ITS | Encounter Summary ---
Author Organization [facility] Address [address] [place] [address] Care Team Providers Care Plastic Block Boiler Reliner Name Role Phone Kameron Zuñiga MD Unavailable Katya Lopez NP Unavailable Unavailab Kathy Halye MD Primary Care Prov ider Be Pacheco NP Unavailable [phone] Maycol Infante MD Unavailable Unavailable Sebastian Martinez MD Unavailable UnavailEve Blackmon MD Unavailable Elisa Romero NP Unavailable Marcus Murcia DO Unavailable Unavailable Reason for Visit * Reason Onset Date Comments other 03/23/2022 leg edema,sob Encounter Details Date Type Department Care Team Description 03/23/2022 Telephone Cardio [facility] Diag Testing [address] [facility] [address] [place], [place] [id number] Kameron Zuñiga MD [address] [place] [address] [phone] other (leg edema,sob) Social History Tobacco Use [...] on for 2 days. Please call patient [phone] documented in this encounter Plan of Treatment Not on file documented as of this encounter Visit Diagnoses Not on filedocumented in this encounter Care Teams Plastic Block Boiler Reliner Relationship Specialty Start Date End Date Kathy Christopher MD [address] [place] [address] [place] [address] PCP - General Internal Medicine 01/21/22 Kameron Zuñiga MD Registered Nurse Post Partum Cardiovascular Disease 08/04/21 Katya Lopez NP Cardiology 08/04/21 01/30/24 Be Pacheco NP [address] [place] [address] Nurse Practitioner Cardiology 10/17/22 01/30/24 Maycol Infante MD [address] [place] [address] Specialist Pulmonology 10/19/22 Sebastian Martinez MD [address] [place] [address] Specialist Ophthalmology 03/21/23 Eve Juan MD [address] [facility] [place] [address] Specialist UROGYNECOLOGY 03/21/23 Elisa Romero NP 4 [facility] [place] [address] Cardiology 01/31/24 Marcus Murcia DO [address] [facility] [place] [address] Specialist Physiatry 03/26/24 documented as of this encounter
--- OUTSIDE RECORDS SUMMARY | 2024-10-08 12:06 | XMS_ITS | Encounter Summary ---
Author Organization [facility] Address [address] [place] [address] Care Team Providers Care Director Of Accreditation Name Role Phone Kameron Zuñiga MD Unavailable Katya Lopez NP Unavailable Unavailab Kathy Haley MD Primary Care Prov ider Be Pacheco NP Unavailable [phone] Maycol Infante MD Unavailable Unavailable Sebastian Martinez MD Unavailable UnavailEve Blackmon MD Unavailable Elisa Romero NP Unavailable [phone] Marcus Murcia DO Unavailable Unavailable Encounter Details Date Type Department Care Team Description 05/27/2022 Welfare Adviser Report Medical Records [address] [place] [address] Maycol Infante MD Social History Tobacco Use [...] filedocumented in this encounter Care Teams Director Of Accreditation Relationship Specialty Start Date End Date Kathy Christopher MD [address] [place] [address] PCP - General Internal Medicine 01/21/22 Kameron Zuñiga MD Coffee Plantation Worker Cardiovascular Disease 08/04/21 Katya Lopez NP Cardiology 08/04/21 01/30/24 Be Pacheco NP [address] [place] [address] Nurse Practitioner Cardiology 10/17/22 01/30/24 Maycol Infante MD [address] [place] [address] Specialist Pulmonology 10/19/22 Sebastian Martinez MD [address] [place] [address] Specialist Ophthalmology 03/21/23 Eve Juan MD [address] [place] [address] [place] [address] Specialist UROGYNECOLOGY 03/21/23 Elisa Romero NP [address] [place] [address] [place] [address] Cardiology 01/31/24 Marcus Murcia DO [address] [place] [address] [place] [address] Specialist Physiatry 03/26/24 documented as of this encounter
--- OUTSIDE RECORDS SUMMARY | 2024-10-08 12:06 | XMS_ITS | Encounter Summary ---
Author Organization [facility] Address [address] [place] [address] Care Team Providers Care Wild Oyster Harvester Name Role Phone Wiley Thompson MD Primary Care Provider Kameron Cornejo MD Unavailable Katya Lopez NP Unavailable Unavailab Kathy Christopher MD Primary Care Prov ider Be Pacheco NP Unavailable [phone] Maycol Infante MD Unavailable Unavailable Sebastian Martinez MD Unavailable UnavailEve Blackmon MD Unavailable Elisa Romero NP Unavailable [phone] Marcus Murcia DO Unavailable Unavailable Encounter Details Date Type Department Care Team Description 01/02/2018 Hospital Medical Records [address] [place] [address] Jayesh Villa Social History Tobacco Use Types [...] on filedocumented in this encounter Care Teams Wild Oyster Harvester Relationship Specialty Start Date End Date Wiley Thompson MD PCP - General Internal Medicine 06/04/14 01/20/22 Kathy Christopher MD [address] [place] [address] PCP - General Internal Medicine 01/21/22 Kameron Zuñiga MD Quality Control Director Cardiovascular Disease 08/04/21 Katya Lopez, IRMA Cardiology 08/04/21 01/30/24 Be Pacheco NP [address] [place] [address] Nurse Practitioner Cardiology 10/17/22 01/30/24 Maycol Infante MD [address] [place] [address] Specialist Pulmonology 10/19/22 Sebastian Martinez MD [address] [place] [address] Specialist Ophthalmology 03/21/23 Eve Juan MD [address] [place] [address] [place] [address] Specialist UROGYNECOLOGY 03/21/23 Elisa Romero NP [address] [place] [address] [place] [address] Cardiology 01/31/24 Marcus Murcia DO [address] [place] [address] [place] [address] Specialist Physiatry 03/26/24 documented as of this encounter
--- OUTSIDE RECORDS SUMMARY | 2024-10-08 12:06 | XMS_ITS | Encounter Summary ---
Author Organization [facility] Address [address] [place] [address] Care Team Providers Care Water Plumber Name Role Phone Wiley Thompson MD Primary Care Provider Kameron Cornejo MD Unavailable Katya Lopez NP Unavailable Unavailab Kathy Haley MD Primary Care Prov ider Be Pacheco NP Unavailable Maycol Infante MD Unavailable Unavailable Sebastian Martinez MD Unavailable UnavailEve Blackmon MD Unavailable Elisa Romero NP Unavailable [phone] Marcus Murcia DO Unavailable Unavailable Encounter Details Date Type Department Care Team Description 02/24/2015 Release of Information Medical Records [address] [place] [address] Abstract, Provider Social History Tobacco Use Types [...] 24, 2015 11:47 AM Request received from [facility] sent to [facility] TIMOTHY/Erich. documented in this encounter Plan of Treatment Not on file documented as of this encounter Visit Diagnoses Not on filedocumented in this encounter Care Teams Water Plumber Relationship Specialty Start Date End Date Wiley Thompson MD PCP - General Internal Medicine 06/04/14 01/20/22 Kathy Christopher MD [address] [place] [address] PCP - General Internal Medicine 01/21/22 Kameron Zuñiga MD Warehouse Order Filler Cardiovascular Disease 08/04/21 Katya Lopez NP Cardiology 08/04/21 01/30/24 Be Pacheco NP [address] [place] [address]51 Nurse Practitioner Cardiology 10/17/22 01/30/24 Maycol Infante MD [address] [place] [address] Specialist Pulmonology 10/19/22 Sebastian Martinez MD [address] [place] [address] Specialist Ophthalmology 03/21/23 Eve Juna MD [address] [place] [address] [place] [address] Specialist UROGYNECOLOGY 03/21/23 Elisa Romero NP [address] [place] [address] [place] [address] Cardiology 01/31/24 Marcus Murcia DO [address] [place] [address] [place] [address] Specialist Physiatry 03/26/24 documented as of this encounter
--- OUTSIDE RECORDS SUMMARY | 2024-10-08 12:06 | XMS_ITS | Encounter Summary ---
Author Organization [facility] Address [address] [place] [address] Care Team Providers Care Transportation Escort Name Role Phone Wiley Thompson MD Primary Care Provider Kameron Cornejo MD Unavailable Katya Lopez NP Unavailable Unavailab Kathy Christopher MD Primary Care Prov ider Be Pacheco NP Unavailable [phone] Maycol Infante MD Unavailable Unavailable Sebastian Martinez MD Unavailable UnavailEve Blackmon MD Unavailable Elisa Romero NP Unavailable [phone] Marcus Murcia DO Unavailable Unavailable Encounter Details Date Type Department Care Team Description 04/10/2015 Gis Database Administrator Report Medical Records [address] [place] [address] Seema Canas MD Social History Tobacco Use [...] on filedocumented in this encounter Care Teams Transportation Escort Relationship Specialty Start Date End Date Wiley Thompson MD PCP - General Internal Medicine 06/04/14 01/20/22 Kathy Christopher MD [address] [place] [address] PCP - General Internal Medicine 01/21/22 Kameron Zuñiga MD Molding Associate Cardiovascular Disease 08/04/21 Katya Lopez, IRMA Cardiology 08/04/21 01/30/24 Be Pacheco NP [address] [place] [address] Nurse Practitioner Cardiology 10/17/22 01/30/24 Maycol Infante MD [address] [place] [address] Specialist Pulmonology 10/19/22 Sebastian Martinez MD [address] [place] [address] Specialist Ophthalmology 03/21/23 Eve Juan MD [address] [place] [address] [place] [address] Specialist UROGYNECOLOGY 03/21/23 Elisa Romero NP [address] [place] [address] [place] [address] Cardiology 01/31/24 Marcus Murcia DO [address] [place] [address] [place] [address] Specialist Physiatry 03/26/24 documented as of this encounter
--- OUTSIDE RECORDS SUMMARY | 2024-10-08 12:06 | XMS_ITS | Encounter Summary ---
Author Organization [facility] Address [address] [place] [address] Care Team Providers Care Cord Tire Builder Name Role Phone Kameron Zuñiga MD Unavailable Katya Lopez NP Unavailable Unavailab le Kathy Christopher MD Primary Care Prov ider Be Pacheco NP Unavailable [phone] Maycol Infante MD Unavailable Unavailable Sebastian Martinez MD Unavailable UnavailEve Blackmon MD Unavailable Elisa Romero NP Unavailable [phone] Marcus Murcia DO Unavailable Unavailable Encounter Details Date Type Department Care Team Description 01/01/2024 Telecom Specialist Report Medical Records [address] [place] [address] Marcus Murcia DO Social History Tobacco Use [...] on filedocumented in this encounter Care Teams Cord Tire Builder Relationship Specialty Start Date End Date Kathy Christopher MD [address] [place], [place] [phone] PCP - General Internal Medicine 01/21/22 Kameron Zuñiga MD Cap Jewel Plate Assembler Cardiovascular Disease 08/04/21 Katya Lopez NP Cardiology 08/04/21 01/30/24 Be Pacheco NP [address] [place] [address] Nurse Practitioner Cardiology 10/17/22 01/30/24 Maycol Infante MD [address] [place] [address] Specialist Pulmonology 10/19/22 Sebastian Martinez MD [address] [place] [address] Specialist Ophthalmology 03/21/23 Eve Juan MD [address] [place] [address] [place] [address] Specialist UROGYNECOLOGY 03/21/23 Elisa Romero NP [address] [place] [address] [place] [address] Cardiology 01/31/24 Marcus Murcia DO [address] [place] [address] [place] [address] Specialist Physiatry 03/26/24 documented as of this encounter
--- OUTSIDE RECORDS SUMMARY | 2024-10-08 12:06 | XMS_ITS | Encounter Summary ---
Author Organization [facility] Address [address] [place] [address] Care Team Providers Care Equip Maint Eng Name Role Phone Wiley Thompson MD Primary Care Provider Kameron Cornejo MD Unavailable Katya Lopez NP Unavailable Unavailab Kathy Haley MD Primary Care Prov ider Be Pacheco NP Unavailable [phone] Maycol Infante MD Unavailable Unavailable Sebastian Martinez MD Unavailable UnavailEve Blackmon MD Unavailable Elisa Romero NP Unavailable [phone] Marcus Murcia DO Unavailable Unavailable Encounter Details Date Type Department Care Team Description 12/15/2017 Orders Only Adult Medicine [address] [phone] Wiley Thompson MD Preoperative examination; Screening for [...] 100 mg/dL 12/26/2017 5:44 PM EDT [facility] Comment:Reference range appl icable to fasting specimens only Blood Urea Nitrogen 9 5 - 25 mg/dL 12/26/2017 5:44 PM EDT [facility] CREAT 1.02 0.5 - 1.1 mg/dL 12/26/2017 5:44 PM EDT [facility] GLOMERULAR FILTRATION RATE 53 12/26/2017 5:44 PM EDT [facility] Comment: If patient is -Luxembourger, multiply result by 1.21 Chronic Kidney Disease: < 60 ml/min/1.73 square meters Kidney Failure: < 15 ml/min/1.73 square meters NA 144 133 - 145 mmol/L 12/26/2017 5:44 PM EDT [facility] K 4.4 3.5 - 5.5 mmol/L 12/26/2017 5:44 PM EDT [facility] CL 106 96 - 110 mmol/L 12/26/2017 5:44 PM EDT [facility] CARBON DIOXIDE (CO2) 29 21 - 32 mmol/L 12/26/2017 5:44 PM EDT [facility] ANION GAP 9 3 - 11 12/26/2017 5:44 PM EDT [facility] CALCIUM 9.2 8.5 - 10.5 mg/dL 12/26/2017 5:44 PM EDT [facility] 12/26/2017 1:43 PM EDT 12/26/2017 1:44 PM EDT Wiley Thompson MD LAB [facility] [employer] * (ABNORMAL) CBC (AUTO DIFF PLATELET) (12/26/2017 1:43 PM EDT) Pathologist [facility] WBC 6.9 4.8 - 10.8 x10-3 12/26/2017 1:59 PM EDT [facility] RBC 3.9 3.8 - 4.8 x10-6 12/26/2017 1:59 PM EDT [facility] HGB 11.8 11.5 - [...] Wiley Thompson MD LAB Performing Organization Address City/State/[facility] Co de Phone Number [facility] [address] [place] [address] documented in this encounter Visit Diagnoses Diagnosis Preoperative examination Preoperative examination, unspecified Screening for deficiency anemia Screening for other and unspecified deficiency anemia documented in this encounter Care Teams Equip Maint Eng Relationship Specialty Start Date End Date Wiley Thompson MD PCP - General Internal Medicine 06/04/14 01/20/22 Kathy Christopher MD [address] [place] [address], [place] [address] PCP - General Internal Medicine 01/21/22 Kameron Zuñiga MD Cutter Machine Tender Cardiovascular Disease 08/04/21 Katya Lopez NP Cardiology 08/04/21 01/30/24 Be Pacheco NP [address] [place] [address]270 Nurse Practitioner Cardiology 10/17/22 01/30/24 Maycol Infante MD [address] [place] [address] Specialist Pulmonology 10/19/22 Sebastian Martinez MD [address] [place] [address] Specialist Ophthalmology 03/21/23 Eve Juan MD [address] [place] [address] [place] [address] Specialist UROGYNECOLOGY 03/21/23 Elisa Romero NP [address] [place] [address] [place] [address] Cardiology 01/31/24 Marcus Murcia DO [address] [place] [address] [place] [address] Specialist Physiatry 03/26/24 documented as of this encounter
--- OUTSIDE RECORDS SUMMARY | 2024-10-08 12:06 | XMS_ITS | Encounter Summary ---
Author Organization [facility] Address [address] [place] [address] Care Team Providers Care Marine Equipment Preservation Inspector Name Role Phone Kathy Perez MD Primary Care Prov ider Reason for Visit * Reason Onset Date Comments Referral 09/06/2024 Encounter Details Date Type Department Care Team (Late st Contact Info) Description 09/06/2024 Telephone Adult Medicine [address] [phone] Kathy Perez MD [address] [place] [address] Referral Social History Tobacco Use Types Packs/Day [...] for your loved ones. For example, child psychologist or elderly care for an older adult? [...] 1:15 PM EDT Office Visit Adult Medicine [address] [phone] Kathy Perez MD [address] [place] [address] documented as of this encounter Visit Diagnoses Not on filedocumented in this encounter Care Teams Marine Equipment Preservation Inspector Relationship Specialty Start Date End Date Kathy Perez MD [address] [place] [address] PCP - General Internal Medicine 07/22/24 documented as of this encounter
--- OUTSIDE RECORDS SUMMARY | 2024-10-08 12:06 | XMS_ITS | Encounter Summary ---
Author Organization [facility] Address [address] [place] [address] Care Team Providers Care Gift Shop Clerk Name Role Phone Wiley Thompson MD Primary Care Provider Kameron Cornejo MD Unavailable Katya Lopez NP Unavailable Unavailab Kathy Haley MD Primary Care Prov ider Be Pacheco NP Unavailable [phone] Maycol Infante MD Unavailable Unavailable Sebastian Martinez MD Unavailable UnavailEve Blackmon MD Unavailable Elisa Romero NP Unavailable [phone] Marcus Murcia DO Unavailable Unavailable Reason for Visit * Reason Comments E-prescribe Rx Request Encounter Details Date Type Department Care Team Description 06/25/2017 Refill Adult Medicine [address] [address] Leilani Colindres APRN E-prescribe Rx Request Social [...] NO Patients current insurance carrier is: Payor: [facility] MCR / Plan: O $0 [facility] [id number] / Product Type: HMO [id number] documented in this encounter Plan of Treatment Not on file documented as of this encounter Visit Diagnoses Not on filedocumented in this encounter Care Teams Gift Shop Clerk Relationship Specialty Start Date End Date Wiley Thompson MD PCP - General Internal Medicine 06/04/14 01/20/22 Trina Rizo, Kathy Fried MD [address] [place] [address] PCP - General Internal Medicine 01/21/22 Kameron Zuñiga MD Inside Sales Consultant Cardiovascular Disease 08/04/21 Katya Lopez NP Cardiology 08/04/21 01/30/24 Be Pacheco NP [address] [place] [address] Nurse Practitioner Cardiology 10/17/22 01/30/24 Maycol Infante MD [address] [place] [address] Specialist Pulmonology 10/19/22 Sebastian Martinez MD [address] [place], [place] [address] Specialist Ophthalmology 03/21/23 Eve Juan MD [address] [place] [address] [place] [address] Specialist UROGYNECOLOGY 03/21/23 Elisa Romero NP [address] [place] [address] [place] [address] Cardiology 01/31/24 Marcus Murcia DO [address] [place] [address] [place] [address] Specialist Physiatry 03/26/24 documented as of this encounter
--- OUTSIDE RECORDS SUMMARY | 2024-10-08 12:06 | XMS_ITS | Encounter Summary ---
Author Organization [facility] Address [address] [place] [address] Care Team Providers Care Power And Recovery Supervisor Name Role Phone Wiley Thompson MD Primary Care Provider Kameron Cornejo MD Unavailable Katya Lopez NP Unavailable Unavailab Kathy Haley MD Primary Care Prov ider Be Pacheco NP Unavailable [phone] Maycol Infante MD Unavailable Unavailable Sebastian Martinez MD Unavailable UnavailEve Blackmon MD Unavailable Elisa Romero NP Unavailable [phone] Marcus Murcia DO Unavailable Unavailable Reason for Visit * Reason Onset Date Comments refill request 09/16/2019 Encounter Details Date Type Department Care Team Description 09/16/2019 Refill Adult Medicine [address] [address] Wiley Thompson MD refill request Social History [...] N/A Patients current insurance carrier is: Payor: [facility] MCR / Plan: [facility] $0 [facility] [id number] / Product Type: HMO [id number] documented in this encounter Plan of Treatment Not on file documented as of this encounter Visit Diagnoses Not on filedocumented in this encounter Care Teams Power And Recovery Supervisor Relationship Specialty Start Date End Date Wiley Thompson MD PCP - General Internal Medicine 06/04/14 01/20/22 Kathy Christopher MD [address] [place] [address] PCP - General Internal Medicine 01/21/22 Kameron Zuñiga MD Mixer Attendant Cardiovascular Disease 08/04/21 Katya Lopez, IRMA Cardiology 08/04/21 01/30/24 Be Pacheco NP [address] [place] [address] Nurse Practitioner Cardiology 10/17/22 01/30/24 Maycol Infante MD [address] [place] [address] Specialist Pulmonology 10/19/22 Sebastian Martinez MD [address] [place] [address] Specialist Ophthalmology 03/21/23 Eve Juan MD [address] [place] [address] [place] [address] Specialist UROGYNECOLOGY 03/21/23 Elisa Romero NP [address] [place] [address] [place] [address] Cardiology 01/31/24 Marcus Murcia DO [address] [place] [address] [place] [address] Specialist Physiatry 03/26/24 documented as of this encounter
--- OUTSIDE RECORDS SUMMARY | 2024-10-08 12:06 | XMS_ITS | Encounter Summary ---
Author Organization [facility] Address [address] [place] [address] Care Team Providers Care Gold Beater Name Role Phone Kameron Zuñiga MD Unavailable Katya Lopez NP Unavailable Unavailab aKthy Haley MD Primary Care Prov ider Be Pacheco NP Unavailable [phone] Maycol Infante MD Unavailable Unavailable Sebastian Martinez MD Unavailable UnavailEve Blackmon MD Unavailable Elisa Romero NP Unavailable [phone] Marcus Murcia DO Unavailable Unavailable Encounter Details Date Type Department Care Team Description 05/07/2022 Hospital Medical Records [address] [place] [address] Branden Mariscal Social History Tobacco Use Types [...] on filedocumented in this encounter Care Teams Gold Beater Relationship Specialty Start Date End Date Kathy Christopher MD [address] [place] [address] PCP - General Internal Medicine 01/21/22 Kameron Zuñiga MD Electronic Heat Seal Operator Cardiovascular Disease 08/04/21 Katya Lopez NP Cardiology 08/04/21 01/30/24 Be Pacheco NP [address] [place] [address] Nurse Practitioner Cardiology 10/17/22 01/30/24 Maycol Infante MD [address] [place] [address] Specialist Pulmonology 10/19/22 Sebastian Martinez MD [address] [place] [address] Specialist Ophthalmology 03/21/23 Eve Juan MD [address] [place] [address] [place] [address] Specialist UROGYNECOLOGY 03/21/23 Elisa Romero NP [address] [place] [address] [place] [address] Cardiology 01/31/24 Marcus Murcia DO [address] [place] [address] [place] [address] Specialist Physiatry 03/26/24 documented as of this encounter
--- OUTSIDE RECORDS SUMMARY | 2024-10-08 12:06 | XMS_ITS | Encounter Summary ---
Author Organization [facility] Address [address] [place] [address] Care Team Providers Care Cutting Room Supervisor Name Role Phone Wiley Thompson MD Primary Care Provider Kameron Cornejo MD Unavailable Katya Lopez NP Unavailable Unavailab Kathy Christopher MD Primary Care Prov ider Be Pacheco NP Unavailable Maycol Infante MD Unavailable Unavailable Sebastian Martinez MD Unavailable UnavailEve Blackmon MD Unavailable Elisa Romero NP Unavailable [phone] Marcus Murcia DO Unavailable Unavailable Encounter Details Date Type Department Care Team Description 11/20/2017 Release of Information Medical Records [address] [place] [address] Abstract, Provider Social History Tobacco Use Types [...] on filedocumented in this encounter Care Teams Cutting Room Supervisor Relationship Specialty Start Date End Date Wiley Thompson MD PCP - General Internal Medicine 06/04/14 01/20/22 Kathy Christopher MD [address] [place] [address] PCP - General Internal Medicine 01/21/22 Kameron Zuñiga MD Safety Glass Installer Cardiovascular Disease 08/04/21 Katya Lopez, IRMA Cardiology 08/04/21 01/30/24 Be Pacheco NP [address] [place] [address] Nurse Practitioner Cardiology 10/17/22 01/30/24 Maycol Infante MD [address] [place] [address] Specialist Pulmonology 10/19/22 Sebastian Martinez MD [address] [place] [address] Specialist Ophthalmology 03/21/23 Eve Juan MD [address] [place] [address] [place] [address] Specialist UROGYNECOLOGY 03/21/23 Elisa Romero NP [address] [place] [address] [place] [address] Cardiology 01/31/24 Marcus Murcia DO [address] [place] [address] [place] [address] Specialist Physiatry 03/26/24 documented as of this encounter
--- OUTSIDE RECORDS SUMMARY | 2024-10-08 12:06 | XMS_ITS | Clinical Summary ---
Author Organization [facility] Address [address] [address] Phone Care Team Providers Care Table Top Tile Setter Name Role Phone Kathy Christopher MD Primary [...] this for 5 days. 10 tablet 5 025 Active Problems Problem Noted Date Diagnosed Date [...] Gastroparesis 07/17/2012 Overview (09/19/2024): Dr. Stephenson at [address] [place] [address] drive Gastroesophageal reflux disease 07/17/2012 Encounters Date Type Department Care Team Description 09/30/2024 Telephone [facility] [address] [phone] Elisa Kiser MA 09/30/2024 Telephone [facility] [address] [address] Elisa Kiser MA 09/27/2024 Orders Only [facility] [address] [phone] Everton Riddle MD Stage 3b chronic kidney disease (HCC); Type 2 diabetes mellitus with diabetic chronic kidney disease (HCC); Renal osteodystrophy 09/25/2024 Office Communication [facility] [address] [phone] Fernanda Oliver 09/23/2024 Orders Only [facility] [address] [phone] Everton Riddle MD 09/20/2024 10:30 AM EDT Office Visit [facility] [address] [phone] Everton Riddle MD Stage 3b chronic kidney [...] Visit [facility] [address] [address] Everton Riddle MD [address] [phone] Health Maintenance Due Date Last Done Comments [...] 3:26 PM EDT) Protein, Ur 27 mg/dL [facility] Urine Protein/Creati nine Ratio 0.24(H) <=0.20 mg/mg creat [facility] Creatinine, Urine 112.0 mg/dL [facility] Urine (Urine, Clean Catch) 09/23/2024 3:26 PM EDT 09/23/2024 4:23 PM EDT Everton Riddle MD LAB URINE ORDERABLES Final Re sult Performing Organization Address [facility] de Phone Number [facility] [address] [place] [address] * (ABNORMAL) Urine Albumin / Creatinine Ratio (09/23/2024 3:26 PM EDT) Creatinine, Urine 112.0 mg/dL [facility] Microalbumin Urine Random 81.4(H) 0.0 - 29.0 mg/L [facility] Microalbumin/Cre atinine Ratio 73(H) <30 mg/g creat [facility] Urine (Urine, Clean Catch) 09/23/2024 3:26 PM EDT 09/23/2024 4:23 PM EDT Everton Riddle MD LAB URINE ORDERABLES Final Re sult Performing Organization Address [facility] Co de Phone Number [facility] [address] [place] [address] * (ABNORMAL) Urinalysis Reflex Microscopic (09/23/2024 3:26 PM EDT) Specific [place] 1.016 1.003 - 1.030 [facility] pH Urine 6.0 5.0 - 8.0 pH [facility] LEUKOCYTES, URINE Large(A) Negative [facility] Nitrite, Urine Negative Negative [facility] Protein, Urine Trace <=Trace mg/dL [facility] Glucose Urine Negative Negative mg/dL [facility] Ketones, Urine Negative Negative mg/dL [facility] Urobilinogen Urine 1.0 0.2 - 1.0 mg/dL [facility] Bilirubin Urine Negative Negative [facility] Blood Urine Negative Negative [facility] RBC, Urine 2.7 0 - 4 /HPF [facility] WBC, Urine 115.5(H) 0 - 4 /HPF [facility] Squamous Epithelial, Urine 15 0 - 60 /LPF [facility] Bacteria, Urine Negative Negative /HPF [facility] Hyaline Casts, UA 2.8 0 - 3 /LPF [facility] 09/23/2024 3:26 PM EDT 09/23/2024 4:23 PM EDT us Everton Riddle MD LAB URINE ORDERABLES Final Re sult GAM[facility] [address] [place] [address] * Hep C Antibody (09/23/2024 3:23 PM EDT) Hep C Ab Negative Negative [facility] 09/23/2024 3:23 PM EDT 09/23/2024 4:23 PM EDT Everton Riddle MD LAB BLOOD ORDERABLES Final Re sult Performing Organization Address [facility]/ZIP Co de Phone Number [facility] [address] [place] [address] * Hepatitis B Surface AB (09/23/2024 3:23 PM EDT) Hep B Surface Antibody Negative Negative [facility] Hep B Surface Ab <3.1 mIU/mL [facility] 09/23/2024 3:23 PM EDT 09/23/2024 4:23 PM EDT Narrative [place] - 09/23/2024 6:14 PM EDT >=10 mIU/mL is considered to be consistent with immunity. Everton Riddle MD LAB [id number] SOLICITED RESULTS Final Result Performing Organization Address [facility] de Phone Number [facility] [address] [place] [address] * Hepatitis B Surface Ag w/Reflex Confirmation (09/23/2024 3:23 PM EDT) Hep B Surface Ag Negative Negative [facility] 09/23/2024 3:23 PM EDT 09/23/2024 4:23 PM EDT Narrative [place] - 09/23/2024 6:25 PM EDT Over the counter supplements containing high doses of biotin may interfere with this assay. ??If interference is suspected, patients shoud be retested after refraining from biotin supplements for 72 hours. Everton Riddle MD LAB BLOOD ORDERABLES Final Re sult Performing Organization Address [facility] Co de Phone Number [facility] [address] [place] [address] * Hepatitis B core antibody, IgM (09/23/2024 3:23 PM EDT) Pathologist [facility] Hep B Core IgM Negative Negative [facility] Blood (Blood, Venous) 09/23/2024 3:23 PM EDT 09/23/2024 4:23 PM EDT Narrative [facility] - 09/23/2024 8:32 PM EDT Over the counter supplements containing high doses of biotin may interfere with this assay. ??If interference is suspected, patients shoud be retested after refraining from biotin supplements for 72 hours. Everton Riddle MD LAB BLOOD ORDERABLES Final Re sult Performing Organization Address [facility] de Phone Number [facility] [address] [place] [address] * Vitamin D 25 Hydroxy (09/23/2024 3:23 PM EDT) Pathologist [facility] Vitamin D, 25-OH, Total 48.9 30.0 - 80.0 ng/mL [facility] Blood (Blood, Venous) 09/23/2024 3:23 PM EDT 09/23/2024 4:23 PM EDT Everton Riddle MD LAB BLOOD ORDERABLES Final Re sult Performing Organization Address [facility] de Phone Number [facility] [address] [place] [address] * C3 Complement (09/23/2024 3:23 PM EDT) [facility] C3 Complement 176 88 - 201 mg/dL [facility] Blood (Blood, Venous) 09/23/2024 3:23 PM EDT 09/23/2024 4:23 PM EDT Everton Riddle MD LAB BLOOD ORDERABLES Final Re sult Performing Organization Address [facility] Co de Phone Number [facility] [address] [place] [address] * (ABNORMAL) C4 Complement (09/23/2024 3:23 PM EDT) C4 Complement 50(H) 16 - 47 mg/dL [facility] Blood (Blood, Venous) 09/23/2024 3:23 PM EDT 09/23/2024 4:23 PM EDT Everton Riddle MD LAB BLOOD ORDERABLES Final Re sult [facility] [address] [place] [address] * PTH, Intact (09/23/2024 3:23 PM EDT) PTH 41.7 18.5 - 88.0 pcg/mL [facility] Blood (Blood, Venous) 09/23/2024 3:23 PM EDT 09/23/2024 4:23 PM EDT Everton Riddle MD LAB BLOOD ORDERABLES Final Re sult Performing Organization Address [facility]/ZIP Co de Phone Number [facility] [address] [place] [address] * (ABNORMAL) Magnesium (09/23/2024 3:23 PM EDT) Pathologist [facility] Magnesium 1.6(L) 1.9 - 2.6 mg/dL [facility] Blood (Blood, Venous) 09/23/2024 3:23 PM EDT 09/23/2024 4:23 PM EDT Everton Riddle MD LAB BLOOD ORDERABLES Final Re sult [facility] [address] [place] [address] * (ABNORMAL) Renal Function Panel (09/23/2024 3:23 PM EDT) Sodium 144 133 - 145 mmol/L [facility] Potassium 4.0 3.5 - 5.5 mmol/L [facility] Chloride 109 96 - 110 mmol/L [facility] Bicarbonate (CO2) 31 21 - 32 mmol/L [facility] Anion Gap 4 3 - 11 [facility] Glucose 119(H) 70 - 100 mg/dL [facility] BUN 15 5 - 25 mg/dL [facility] Creatinine Serum 1.04 0.50 - 1.10 mg/dL [facility] eGFR 55(L) >=60 mL/min/1. 73m2 [facility] Comment:Calculation based on the?Chronic Kidney Disease Epidemiology Collaboration (CKD-EPI) equation refit?without adjustment for race. BUN/Creatinine Ratio 14.4 [facility] Albumin 3.4 3.2 - 5.0 g/dL [facility] Calcium 9.3 8.5 - 10.5 mg/dL [facility] Phosphorus 3.9 2.5 - 4.5 mg/dL [facility] Blood (Blood, Venous) 09/23/2024 3:23 PM EDT 09/23/2024 4:23 PM EDT us Everton Riddle MD LAB BLOOD ORDERABLES Final Re sult GAMAL [facility] [address] [place] [address] * Protein Electrophoresis Interpretation, Serum (09/23/2024 3:22 PM EDT) Pathologist Interpretation Tiesha Gonzalez MD [facility] 09/23/2024 3:22 PM EDT 09/23/2024 4:23 PM EDT Everton Riddle MD LAB [id number] SOLICITED RESULTS Final Result Performing Organization Address City/[facility]/ZIP Co de Phone Number [facility] [address] [place] [address] * Free [place] Lambda Light Chain, QN (09/23/2024 3:22 PM EDT) Free [place] Lt Chains, S 1.48 0.33 - 1.94 mg/dL [facility] Free Lambda Lt Chains, S 2.11 0.57 - 2.63 mg/dL [facility] Wox[place]/Lambda LC Ratio 0.70 0.26 - 1.65 [facility] Comment: Test performed at [facility], [address], [place], [place] ??[address] ? [phone] Anca Gallegos MD, PhD - Dexigraph Operator 09/23/2024 3:22 PM EDT 09/23/2024 5:21 PM EDT Everton Riddle MD LAB BLOOD ORDERABLES Final Re sult Performing Organization Address City/[facility]/ZIP Co de Phone Number [facility] [address] [place] [address] * [place] IFA Screen s/Reflex to Titer and Pattern (09/23/2024 3:22 PM EDT) [place] Negative Negative [facility] 09/23/2024 3:22 PM EDT 09/23/2024 4:23 PM EDT Everton Riddle MD LAB BLOOD ORDERABLES Final Re sult [facility] [address] [place] [address] * (ABNORMAL) Protein electrophoresis, serum (09/23/2024 3:22 PM EDT) Total Protein 6.4 6.0 - 8.0 g/dL [facility] Albumin 3.4 2.9 - 4.1 g/dL [facility] Uinaf-4-Hwjualhr 0.2 0.1 - 0.5 g/dL [facility] Xxhqf-7-Ultoldwj 1.2 0.7 - 1.5 g/dL [facility] Beta Globulin 1.0 0.7 - 1.5 g/dL [facility] Gamma Globulin in Serum 0.6(L) 0.7 - 1.9 g/dL [facility] SPEP Interpretation No M-Antonio seen. 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 [facility] Blood (Blood, Venous) 09/23/2024 3:22 PM EDT 09/23/2024 4:23 PM EDT Everton Riddle MD LAB BLOOD ORDERABLES Final Re sult Performing Organization Address [facility]/ZIP Co de Phone Number [facility] [address] [place] [address] * Protein, total (09/23/2024 3:22 PM EDT) Total Protein 6.4 6.0 - 8.0 g/dL [facility] 09/23/2024 3:22 PM EDT 09/23/2024 4:23 PM EDT Everton Riddle MD LAB BLOOD ORDERABLES Final Re sult [facility] [address] [place] [address] * (ABNORMAL) CBC (09/23/2024 2:15 PM EDT) WBC 9.0 4.8 - 10.8 K/[facility] RBC 3.70(L) 3.80 - 4.80 M/[facility] Hgb 11.0(L) 11.5 - 16.0 g/dL [facility] Hematocrit 33.8(L) 35.0 - 47.0 % [facility] MCV 92.6 79.0 - 98.0 FL [facility] MCH 30.1 27.0 - 32.0 pcg [facility] MCHC 32.5 32.0 - 37.0 g/dL [facility] RDW 15.8(H) 11.0 - 15.0 % [facility] Platelets 260 130 - 400 K/[facility] MPV 10.6 7.0 - 11.0 [facility] nRBC Count 0.0 <1.0 % [facility] NRBC Absolute 0.00 <0.10 /[facility] Blood (Blood, Venous) 09/23/2024 2:15 PM EDT 09/23/2024 4:25 PM EDT us Everton Riddle MD LAB BLOOD ORDERABLES Final Re sult [facility] [address] [place] [address] from Last 3 Months Insurance [facility] MCR ([id number]) Care Teams Table Top Tile Setter Relationship Specialty Start Date End Date Kathy Christopher MD [address] [place] [address] PCP - General 09/10/24
--- OUTSIDE RECORDS SUMMARY | 2024-10-08 12:06 | XMS_ITS | Encounter Summary ---
Author Organization [facility] Address [address] [place] [address] Care Team Providers Care Budget Report Clerk Name Role Phone Kameron Zuñiga MD Unavailable Katya Lopez NP Unavailable Unavailab Kathy Haley MD Primary Care Prov ider Be Pacheco NP Unavailable [phone] Maycol Infante MD Unavailable Unavailable Sebastian Martinez MD Unavailable UnavailEve Blackmon MD Unavailable Elisa Romero NP Unavailable Marcus Murcia DO Unavailable Unavailable Encounter Details Date Type Department Care Team Description 2023 Orders Only Medical Records [address] [place] [phone] Negro [place] PA-C Social History Tobacco Use [...] on filedocumented in this encounter Care Teams Budget Report Clerk Relationship Specialty Start Date End Date Kathy Christopher MD [address] [place] [address] PCP - General Internal Medicine 01/21/22 Kameron Zuñiga MD Sales And Marketing Manager Cardiovascular Disease 08/04/21 Katya Lopez NP Cardiology 08/04/21 01/30/24 Be Pacheco NP [address] [place] [address] Nurse Practitioner Cardiology 10/17/22 01/30/24 Maycol Infante MD [address] [place] [address] Specialist Pulmonology 10/19/22 Sebastian Martinez MD [address] [place] [address] Specialist Ophthalmology 03/21/23 Eve Juan MD [address] [place] [address] [place] [address] Specialist UROGYNECOLOGY 03/21/23 Elisa Romero NP [address] [place] [address] [place] [address] Cardiology 01/31/24 Marcus Murcia DO [address] [place] [address] [place] [address] Specialist Physiatry 03/26/24 documented as of this encounter
--- OUTSIDE RECORDS SUMMARY | 2024-10-08 12:06 | XMS_ITS | Encounter Summary ---
Author Organization [facility] Address [address] [place] [address] Care Team Providers Care Wash Plant Operator Name Role Phone Kameron Zuñiga MD Unavailable Katya Lopez NP Unavailable Unavailab le Kathy Christopher MD Primary Care Prov ider Be Pacheco NP Unavailable [phone] Maycol Infante MD Unavailable Unavailable Sebastian Martinez MD Unavailable UnavailEve Blackmon MD Unavailable Elisa Romero NP Unavailable [phone] Marcus Murcia DO Unavailable Unavailable Encounter Details Date Type Department Care Team Description 09/26/2023 Pipe Smoking Machine Offbearer Report Medical Records [address] [place] [address] Maycol Infante MD Social History Tobacco Use [...] on filedocumented in this encounter Care Teams Wash Plant Operator Relationship Specialty Start Date End Date Kathy Christopher MD [address] [place], [place] [phone] PCP - General Internal Medicine 01/21/22 Kameron Zuñiga MD Milk Receiver Tank Truck Cardiovascular Disease 08/04/21 Katya Lopez NP Cardiology 08/04/21 01/30/24 Be Pacheco NP [address] [place] [address] Nurse Practitioner Cardiology 10/17/22 01/30/24 Maycol Infante MD [address] [place] [address] Specialist Pulmonology 10/19/22 Sebastian Martinez MD [address] [place] [address] Specialist Ophthalmology 03/21/23 Eve Jaun MD [address] [place] [address] [place] [address] Specialist UROGYNECOLOGY 03/21/23 Elisa Romero NP [address] [place] [address] [place] [address] Cardiology 01/31/24 Marcus Murcia DO [address] [place] [address] [place] [address] Specialist Physiatry 03/26/24 documented as of this encounter
--- OUTSIDE RECORDS SUMMARY | 2024-10-08 12:06 | XMS_ITS | Clinical Summary ---
Author Organization [facility] Address [address] [place] [address] Care Team Providers Care Long Term Name Role Phone Kameron Zuñiga MD Unavailable Kathy Christopher MD Primary Care Prov ider Maycol Infante MD Unavailable Unavailable Sebastian Martinez MD Unavailable UnavailEve Blackmon MD Unavailable Elisa Romero NP Unavailable [phone] Marcus Murcia DO Unavailable Unavailable Allergies Active [...] just unsure what to do Educational Resources [employer] (www.diabetes.org) Centers for Disease Control [...] HAYLEY 16 with nocturnal hypoxia 11/21/2018 Overview: [facility] Home Sleep Apnea Test: Date 11/18/2018; Wt 192#; BMI 33; HAYLEY 16, AI 1; HI 14; Unclassified apneas 0; Obstructive apneas 10; Central apneas 0; Mixed apneas 0; hypopneas 126; average oxygen saturation 88% (lowest 73% with saturations <88% for 5% or more of study) [facility] Polysomnogram treatment study. 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 01/21/2015 Overview: Cath [...] 02/17, 03/28/2022, Additional history exists Care Teams Long Term Relationship Specialty Start Date End Date Kathy Christopher MD [address] [place] [address] PCP - General Internal Medicine 01/21/22 Kameron Zuñiga MD Shade Classifier Cardiovascular Disease 08/04/21 Maycol Infante MD [address] [place] [address] 67514 Specialist Pulmonology 10/19/22 Sebastian Martinez MD [address] [place] [address] 85291 Specialist Ophthalmology 03/21/23 Eve Juan MD [address] [place] [address] [place] [address] Specialist UROGYNECOLOGY 03/21/23 Elisa Romero NP [address] [place] [address] [place] [address] Cardiology 01/31/24 Marcus Murcia DO [address] [place] [address] [place] [address] Specialist Physiatry 03/26/24
--- OUTSIDE RECORDS SUMMARY | 2024-10-08 12:06 | XMS_ITS | Encounter Summary ---
Author Organization [facility] Address [address] [place] [address] Care Team Providers Care Selling Manager Name Role Phone Kameron Zuñiga MD Unavailable Katya Lopez NP Unavailable Unavailab le Kathy Christopher MD Primary Care Prov ider Be Pacheco NP Unavailable [phone] Maycol Infante MD Unavailable Unavailable Sebastian Martinez MD Unavailable UnavailEve Blackmon MD Unavailable Elisa Romero NP Unavailable [phone] Marcus Murcia DO Unavailable Unavailable Encounter Details Date Type Department Care Team Description 10/30/2023 Lodging House Keeper Report Medical Records [address] [place] [address] Lalitha Diego, [facility]- Social History Tobacco Use Types Packs/Day [...] on filedocumented in this encounter Care Teams Selling Manager Relationship Specialty Start Date End Date Kathy Christopher MD [address] [place] [address] [phone] PCP - General Internal Medicine 01/21/22 Kameron Zuñiga MD Cotton Baler Cardiovascular Disease 08/04/21 Katya Lopez, IRMA Cardiology 08/04/21 01/30/24 Be Pacheco NP [address] [place] [address] 85444 Nurse Practitioner Cardiology 10/17/22 01/30/24 Maycol Infante MD [address] [place] [address] 59228 Specialist Pulmonology 10/19/22 Sebastian Martinez MD [address] [place] [address] Specialist Ophthalmology 03/21/23 Eve Juan MD [address] [place] [address] [place] [address] Specialist UROGYNECOLOGY 03/21/23 Elisa Romreo NP [address] [place] [address] [place] [address] Cardiology 01/31/24 Marcus Murcia DO [address] [place] [address] [place] [address] Specialist Physiatry 03/26/24 documented as of this encounter
--- OUTSIDE RECORDS SUMMARY | 2024-10-08 12:06 | XMS_ITS | Encounter Summary ---
Author Organization [facility] Address [address] [place] [address] Care Team Providers Care Engineering Group Manager Name Role Phone Wiley Thompson MD Primary Care Provider Kameron Cornejo MD Unavailable Katya Lopez NP Unavailable Unavailab Kathy Christopher MD Primary Care Prov ider Be Pacheco NP Unavailable [phone] Maycol Infante MD Unavailable Unavailable Sebastian Martinez MD Unavailable UnavailEve Blackmon MD Unavailable Elisa Romero NP Unavailable [phone] Marcus Murcia DO Unavailable Unavailable Encounter Details Date Type Department Care Team Description 12/29/2017 Records Technician Report Medical Records [address] [place] [address] Abstract, Provider Social History Tobacco Use Types [...] on filedocumented in this encounter Care Teams Engineering Group Manager Relationship Specialty Start Date End Date Wiley Thompson MD PCP - General Internal Medicine 06/04/14 01/20/22 Kathy Christopher MD [address] [place] [address] 16854 PCP - General Internal Medicine 01/21/22 Kameron Zuñiga MD Research And Development Director Cardiovascular Disease 08/04/21 Katya Lopez NP Cardiology 08/04/21 01/30/24 Be Pacheco NP [address] [place] [address] 04039 Nurse Practitioner Cardiology 10/17/22 01/30/24 Maycol Infante MD [address] [place] [address]08 Specialist Pulmonology 10/19/22 Sebastian Martinez MD [address] [place] [address] 41453 Specialist Ophthalmology 03/21/23 Eve Juan MD [address] [place] [address] [place] [address] Specialist UROGYNECOLOGY 03/21/23 Elisa Romero NP [address] [place] [address] [place] [address] Cardiology 01/31/24 Marcus Murcia DO [address] [place] [address] [place] [address] Specialist Physiatry 03/26/24 documented as of this encounter
--- OUTSIDE RECORDS SUMMARY | 2024-10-08 12:06 | XMS_ITS | Encounter Summary ---
Author Organization [facility] Address [address] [place] [address] Care Team Providers Care Coverage Specialist Rn Name Role Phone Kameron Zuñiga MD Unavailable Katya Lopez NP Unavailable Unavailab le Kathy Christopher MD Primary Care Prov ider Be Pacheco NP Unavailable [phone] Maycol Infante MD Unavailable Unavailable Sebastian Martinez MD Unavailable UnavailEve Blackmon MD Unavailable Elisa Romero NP Unavailable [phone] Marcus Murcia DO Unavailable Unavailable Encounter Details Date Type Department Care Team Description 09/19/2023 Electrocardiograph Repairer Report Medical Records [address] [place] [address] Pierre Oliva, PAAdelaidaC Social History Tobacco Use [...] on filedocumented in this encounter Care Teams Coverage Specialist Rn Relationship Specialty Start Date End Date Kathy Christopher MD [address] [place] [address] [phone] PCP - General Internal Medicine 01/21/22 Kameron Zuñiga MD Shake Feeder Cardiovascular Disease 08/04/21 Katya Lopez NP Cardiology 08/04/21 01/30/24 Be Pacheco NP [address] [place] [address] 99510 Nurse Practitioner Cardiology 10/17/22 01/30/24 Maycol Infante MD [address] [place] [address] 98931 Specialist Pulmonology 10/19/22 Sebastian Martinez MD [address] [place] [address] Specialist Ophthalmology 03/21/23 Eve Juan MD [address] [place] [address] [place] [address] Specialist UROGYNECOLOGY 03/21/23 Elisa Romero NP [address] [place] [address] [place] [address] Cardiology 01/31/24 Marcus Murcia DO [address] [place] [address] [place] [address] Specialist Physiatry 03/26/24 documented as of this encounter
--- OUTSIDE RECORDS SUMMARY | 2024-10-08 12:06 | XMS_ITS | Encounter Summary ---
Author Organization [facility] Address [address] [place] [address] Care Team Providers Care Music Publisher Name Role Phone Wiley Thompson MD Primary Care Provider Kameron Cornejo MD Unavailable Katya Lopez ARTIFICIAL FLOWERS DYER Unavailable Unavailab Kathy Haley MD Primary Care Prov ider Be Pacheco ARTIFICIAL FLOWERS DYER Unavailable [phone] Maycol Infante MD Unavailable Unavailable Sebastian Martinez MD Unavailable UnavailEve Blackmon MD Unavailable Elisa Romero NP Unavailable [phone] Marcus Murcia DO Unavailable Unavailable Encounter Details Date Type Department Care Team Description 01/15/2018 Sand Conditioner Machine Report Medical Records [address] [place] [address] Asya Waller, IRMA Social History Tobacco Use [...] filedocumented in this encounter Care Teams Music Publisher Relationship Specialty Start Date End Date Wiley Thompson MD PCP - General Internal Medicine 06/04/14 01/20/22 Kathy Christopher MD [address] [place] [address]603 PCP - General Internal Medicine 01/21/22 Kameron Zuñiga MD Bench Patternmaker Metal Cardiovascular Disease 08/04/21 Katya Lopez, IRMA Cardiology 08/04/21 01/30/24 Be Pacheco NP [address] [place] [address] Nurse Practitioner Cardiology 10/17/22 01/30/24 Maycol Infante MD [address] [place] [address] 35632 Specialist Pulmonology 10/19/22 Sebastian Martinez MD [address] [place] [address] 40705 Specialist Ophthalmology 03/21/23 Eve Juan MD [address] [place] [address] [place] [address] Specialist UROGYNECOLOGY 03/21/23 Elisa Romero NP [address] [place] [address] [place] [address] Cardiology 01/31/24 Marcus Murcia DO [address] [place] [address] [place] [address] Specialist Physiatry 03/26/24 documented as of this encounter
--- OUTSIDE RECORDS SUMMARY | 2024-10-08 12:06 | XMS_ITS | Encounter Summary ---
Author Organization [facility] Address [address] [place] [address] Care Team Providers Care Offset Press Operator Apprentice Name Role Phone Wiley Thompson MD Primary Care Provider Kameron Cornejo MD Unavailable Katya Lopez NP Unavailable Unavailab Kathy Christopher MD Primary Care Prov ider Be Pacheco NP Unavailable [phone] Maycol Infante MD Unavailable Unavailable Sebastian Martinez MD Unavailable UnavailEve Blackmon MD Unavailable Elisa Romero NP Unavailable [phone] Marcus Murcia DO Unavailable Unavailable Encounter Details Date Type Department Care Team Description 03/09/2015 Transfer Records Medical Records [address] [place] [id number] [place] [address] Social History Tobacco Use Types Packs/Day Years [...] on filedocumented in this encounter Care Teams Offset Press Operator Apprentice Relationship Specialty Start Date End Date Wiley Thompson MD PCP - General Internal Medicine 06/04/14 01/20/22 Kathy Christopher MD [address] [place] [address] 41301 PCP - General Internal Medicine 01/21/22 Kameron Zuñiga MD Sink Maker Cardiovascular Disease 08/04/21 Katya Lopez NP Cardiology 08/04/21 01/30/24 Be Pacheco NP [address] [place] [address] 02172 Nurse Practitioner Cardiology 10/17/22 01/30/24 Maycol Infante MD [address] [place] [address] 35118 Specialist Pulmonology 10/19/22 Sebastian Martinez MD [address] [place], [place] [address] Specialist Ophthalmology 03/21/23 Eve Juan MD [address] [place] [address] [place] [address] Specialist UROGYNECOLOGY 03/21/23 Elisa Romero NP [address] [place] [address] [place] [address] Cardiology 01/31/24 Marcus Murcia DO [address] [place] [address] [place] [address] Specialist Physiatry 03/26/24 documented as of this encounter
--- OUTSIDE RECORDS SUMMARY | 2024-10-08 12:06 | XMS_ITS | Encounter Summary ---
Author Organization [facility] Address [address] [place] [address] Care Team Providers Care Boat Engines Installer Name Role Phone Wiley Thompson MD Primary Care Provider Kameron Cornejo MD Unavailable Katya Lopez NP Unavailable Unavailab Kathy Christopher MD Primary Care Prov ider Be Pacheco NP Unavailable [phone] Maycol Infante MD Unavailable Unavailable Sebastian Martinez MD Unavailable UnavailEve Blackmon MD Unavailable Elisa Romero NP Unavailable [phone] Marcus Murcia DO Unavailable Unavailable Encounter Details Date Type Department Care Team Description 05/26/2015 MILLER SUPERVISOR/MassPat Report Medical Records [address] [place] [address] 82723 Abstract, Provider Social History Tobacco Use Types [...] on filedocumented in this encounter Care Teams Boat Engines Installer Relationship Specialty Start Date End Date Wiley Thompson MD PCP - General Internal Medicine 06/04/14 01/20/22 Kathy Christopher MD [address] [place] [address] 58586 PCP - General Internal Medicine 01/21/22 Kameron Zuñiga MD Numerical Control Lathe Operator Cardiovascular Disease 08/04/21 Katya Lopez NP Cardiology 08/04/21 01/30/24 Be Pacheco NP [address] [place] [address] 23767 Nurse Practitioner Cardiology 10/17/22 01/30/24 Maycol Infante MD [address] [place] [address] 66674 Specialist Pulmonology 10/19/22 Sebastian Martinez MD [address] [place], [place] [address] Specialist Ophthalmology 03/21/23 Eve Juan MD [address] [place] [address] [place] [address] Specialist UROGYNECOLOGY 03/21/23 Elisa Romero NP [address] [place] [address] [place] [address] Cardiology 01/31/24 Marcus Murcia DO [address] [place] [address] [place] [address] Specialist Physiatry 03/26/24 documented as of this encounter
--- OUTSIDE RECORDS SUMMARY | 2024-10-08 12:06 | XMS_ITS | Encounter Summary ---
Author Organization [facility] Address [address] [place] [address] Care Team Providers Care Service Or Work Dispatcher Name Role Phone Bri Santacruz MD Primary Care Provider Unavailable Wiley Thompson MD Primary Care Provider Kameron Cornejo MD Unavailable Katya Lopez NP Unavailable Unavailab Kathy Haley MD Primary Care Prov ider Be Pacheco NP Unavailable [phone] Maycol Infante MD Unavailable Unavailable Sebastian Martinez MD Unavailable UnavailEve Blackmon MD Unavailable Elisa Romero NP Unavailable [phone] Marcus Murcia DO Unavailable Unavailable Encounter Details Date Type Department Care Team Description 05/15/2013 Night Triage Doc Medical Records [address] [place] [address] 77677 Abstract, Provider Social History Tobacco Use Types [...] filedocumented in this encounter Care Teams Service Or Work Dispatcher Relationship Specialty Start Date End Date Bri Santacruz MD PCP - General Internal Medicine 04/23/12 06/03/14 Wiley Thompson MD PCP - General Internal Medicine 06/04/14 01/20/22 Kathy Christopher MD [address] [place] [address] 77438 PCP - General Internal Medicine 01/21/22 Kameron Zuñiga MD Asphalt Paving Foreman Cardiovascular Disease 08/04/21 Katya Lopez NP Cardiology 08/04/21 01/30/24 Be Pacheco NP [address] [place] [address] 77887 Nurse Practitioner Cardiology 10/17/22 01/30/24 Maycol Infante MD [address] [place] [address] 87353 Specialist Pulmonology 10/19/22 Sebastian Martinez MD [address] [place] [address] 51623 Specialist Ophthalmology 03/21/23 Eve Juan MD [address] [place] [address] [place] [address] Specialist UROGYNECOLOGY 03/21/23 Elisa Romero NP [address] [place] [address] [place] [address] Cardiology 01/31/24 Marcus Murcia DO [address] [place] [address] [place] [address] Specialist Physiatry 03/26/24 documented as of this encounter
--- OUTSIDE RECORDS SUMMARY | 2024-10-08 12:06 | XMS_ITS | Encounter Summary ---
Author Organization [facility] Address [address] [place] [address] Care Team Providers Care Integrated Circuit Design Engineer Name Role Phone Kameron Zuñiga MD Unavailable Katya Lopez NP Unavailable Unavailab Kathy Haley MD Primary Care Prov ider Be Pacheco NP Unavailable [phone] Maycol Infante MD Unavailable Unavailable Sebastian Martinez MD Unavailable UnavailEve Blackmon MD Unavailable Elisa Romero NP Unavailable [phone] Marcus Murcia DO Unavailable Unavailable Encounter Details Date Type Department Care Team Description 09/19/2023 Orders Only Medical Records [address] [place] [address] Lalitha Diego FNP-BC Social History Tobacco Use [...] on filedocumented in this encounter Care Teams Integrated Circuit Design Engineer Relationship Specialty Start Date End Date Kathy Christopher MD [address] [place] [address] 40481 PCP - General Internal Medicine 01/21/22 Kameron Zuñiga MD Racking Technician Cardiovascular Disease 08/04/21 Katya Lopez NP Cardiology 08/04/21 01/30/24 Be Pacheco NP [address] [place] [address] 23009 Nurse Practitioner Cardiology 10/17/22 01/30/24 Maycol Infante MD [address] [place] [address] 57054 Specialist Pulmonology 10/19/22 Sebastian Martinez MD [address] [place] [address] 53410 Specialist Ophthalmology 03/21/23 Eve Juan MD [address] [place] [address] [place] [address] Specialist UROGYNECOLOGY 03/21/23 Elisa Romero NP [address] [place] [address] [place] [address] Cardiology 01/31/24 Marcus Murcia DO [address] [place] [address] [place] [address] Specialist Physiatry 03/26/24 documented as of this encounter
--- OUTSIDE RECORDS SUMMARY | 2024-10-08 12:06 | XMS_ITS | Encounter Summary ---
Author Organization [facility] Address [address] [place] [address] Care Team Providers Care Tool Marker Name Role Phone Bri Santacruz MD Primary Care Provider Unavailable Wiley Thompson MD Primary Care Provider Kameron Cornejo MD Unavailable Katya Lopez NP Unavailable Unavailab Kathy Haley MD Primary Care Prov ider Be Pacheco NP Unavailable Maycol Infante MD Unavailable Unavailable Sebastian Martinez MD Unavailable UnavailEve Blackmon MD Unavailable Elisa Romero NP Unavailable [phone] Marcus Murcia DO Unavailable Unavailable Encounter Details Date Type Department Care Team Description 10/01/2013 Director Of Safety Report Medical Records [address] [place] [address]254 Abstract, Provider Social History Tobacco Use Types [...] filedocumented in this encounter Care Teams Tool Marker Relationship Specialty Start Date End Date Bri Santacruz MD PCP - General Internal Medicine 04/23/12 06/03/14 Wiley Thompson MD PCP - General Internal Medicine 06/04/14 01/20/22 Kathy Christopher MD [address] [place] [address] 89302 PCP - General Internal Medicine 01/21/22 Kameron Zuñiga MD Merchandise Flow Team Leader Cardiovascular Disease 08/04/21 Katya Lopez NP Cardiology 08/04/21 01/30/24 Be Pacheco NP [address] [place] [address] 73900 Nurse Practitioner Cardiology 10/17/22 01/30/24 Maycol Infante MD [address] [place] [address] 02176 Specialist Pulmonology 10/19/22 Sebastian Martinez MD [address] [place] [address] 14614 Specialist Ophthalmology 03/21/23 Eve Juan MD [address] [place] [address] [place] [address] Specialist UROGYNECOLOGY 03/21/23 Elisa Romero NP [address] [place] [address] [place] [address] Cardiology 01/31/24 Marcus Murcia DO [address] [place] [address] [place] [address] Specialist Physiatry 03/26/24 documented as of this encounter
--- OUTSIDE RECORDS SUMMARY | 2024-10-08 12:06 | XMS_ITS | Encounter Summary ---
Author Organization [facility] Address [address] [place] [address] Care Team Providers Care Safety And Skill Based Pay Manager Name Role Phone Kameron Zuñiga MD Unavailable Katya Lopez NP Unavailable Unavailab Kathy Haley MD Primary Care Prov ider Be Pacheco NP Unavailable [phone] Maycol Infante MD Unavailable Unavailable Sebastian Martinez MD Unavailable UnavailEve Blackmon MD Unavailable Elisa Romero NP Unavailable [phone] Marcus Murcia DO Unavailable Unavailable Reason for Visit * Reason Onset Date Comments other 01/31/2022 high blood press ure Encounter Details Date Type Department Care Team Description 01/31/2022 Telephone Cardio PVCA Diag Testing [address] [facility] [address] [place], [place] [id number] Kameron Zuñiga MD [address] [place] [address] [phone] other (high blood pressure) Social History Tobacco [...] concerned about her mother, daughter lives in [place]. I did try to call pt to [...] on filedocumented in this encounter Care Teams Safety And Skill Based Pay Manager Relationship Specialty Start Date End Date Kathy Christopher MD [address] [place] [address] 37593 PCP - General Internal Medicine 01/21/22 Kameron Zuñiga MD Field Technical Support Consultant Cardiovascular Disease 08/04/21 Katya Lopez NP Cardiology 08/04/21 01/30/24 Be Pacheco NP [address] [place] [address] 12657 Nurse Practitioner Cardiology 10/17/22 01/30/24 Maycol Infante MD [address] [place] [address] 75142 Specialist Pulmonology 10/19/22 Sebastian Martinez MD [address] [place] [address] Specialist Ophthalmology 03/21/23 Eve Juan MD [address] [place] [address] [place] [address] Specialist UROGYNECOLOGY 03/21/23 Elisa Romero NP [address] [place] [address] [place] [address] Cardiology 01/31/24 Marcus Murcia DO [address] [place] [address] [place] [address] Specialist Physiatry 03/26/24 documented as of this encounter
--- OUTSIDE RECORDS SUMMARY | 2024-10-08 12:06 | XMS_ITS | Encounter Summary ---
Author Organization [facility] Address [address] [place] [address] Care Team Providers Care Public Affairs Officer Name Role Phone Kameron Zuñiga MD Unavailable Katya Lopez NP Unavailable Unavailab Kathy Haley MD Primary Care Prov ider Be Pacheco NP Unavailable [phone] Maycol Infante MD Unavailable Unavailable Sebastian Martinez MD Unavailable UnavailEve Blackmon MD Unavailable Elisa Romero NP Unavailable [phone] Marcus Murcia DO Unavailable Unavailable Reason for Visit * Reason Onset Date Comments Hematuria 04/28/2022 Encounter Details Date Type Department Care Team Description 04/28/2022 Telephone Urogynecology [address] [address] Eve Juan MD [address] [place] [address] Urogynecology [place], [place] Hematuria Social History Tobacco Use Types [...] filedocumented in this encounter Care Teams Public Affairs Officer Relationship Specialty Start Date End Date Kathy Christopher MD [address] [place] [address] 19865 PCP - General Internal Medicine 01/21/22 Kameron Zuñiga MD Possum Trapper Cardiovascular Disease 08/04/21 Katya Lopez NP Cardiology 08/04/21 01/30/24 Be Pacheco NP [address] [place] [address] Nurse Practitioner Cardiology 10/17/22 01/30/24 Maycol Infante MD [address] [place], [place] [phone] Specialist Pulmonology 10/19/22 Sebastina Martinez MD [address] [place], [place] [phone] Specialist Ophthalmology 03/21/23 Eve Juan MD [address] [place] [address] [place] [address] Specialist UROGYNECOLOGY 03/21/23 Elisa Romero, IRMA [address] [place] [address] [place] [address] Cardiology 01/31/24 Marcus Murcia DO [address] [place] [address] [place] [address] Specialist Physiatry 03/26/24 documented as of this encounter
--- OUTSIDE RECORDS SUMMARY | 2024-10-08 12:07 | XMS_ITS | Encounter Summary ---
Author Organization [facility] Address [address] [place] [address] Care Team Providers Care Loadmaster Name Role Phone Wiley Thompson MD Primary Care Provider Kameron Cornejo MD Unavailable Katya Lopez UNIVERSITY REGISTRAR Unavailable Unavailab Kathy Christopher MD Primary Care Prov ider Be Pacheco NP Unavailable Maycol Infante MD Unavailable Unavailable Sebastian Martinez MD Unavailable UnavailEve Blackmon MD Unavailable Elisa Romero NP Unavailable [phone] Marcus Murcia DO Unavailable Unavailable Encounter Details Date Type Department Care Team Description 11/21/2019 Cardiology Teacher Report Medical Records [address] [place] [address] Maycol Infante MD Social History Tobacco Use [...] on filedocumented in this encounter Care Teams Loadmaster Relationship Specialty Start Date End Date Wiley Thompson MD PCP - General Internal Medicine 06/04/14 01/20/22 Kathy Christopher MD [address] [place] [address] 15624 PCP - General Internal Medicine 01/21/22 Kameron Zuñiga MD Carousel Attendant Cardiovascular Disease 08/04/21 Katya Lopez, IRMA Cardiology 08/04/21 01/30/24 Be Pacheco NP [address] [place] [address] 49094 Nurse Practitioner Cardiology 10/17/22 01/30/24 Maycol Infante MD [address] [place] [address] 71401 Specialist Pulmonology 10/19/22 Sebastian Martinez MD [address] [place] [address] 85262 Specialist Ophthalmology 03/21/23 Eve Juan MD [address] [place] [address] [place] [address] Specialist UROGYNECOLOGY 03/21/23 Elisa Romero NP [address] [place] [address] [place] [address] Cardiology 01/31/24 Marcus Murcia DO [address] [place] [address] [place] [address] Specialist Physiatry 03/26/24 documented as of this encounter
--- OUTSIDE RECORDS SUMMARY | 2024-10-08 12:07 | XMS_ITS | Encounter Summary ---
Author Organization [facility] Address [address] [place] [address] Care Team Providers Care Pilot Name Role Phone Wiley Thompson MD Primary Care Provider Kameron Cornejo MD Unavailable Katya Lopez NP Unavailable Unavailab Kathy Haley MD Primary Care Prov ider Be Pacheco NP Unavailable [phone] Maycol Infante MD Unavailable Unavailable Sebastian Martinez MD Unavailable UnavailEve Blackmon MD Unavailable Elisa Romero NP Unavailable [phone] Marcus Murcia DO Unavailable Unavailable Reason for Visit * Reason Comments E-prescribe Rx Request Encounter Details Date Type Department Care Team Description 07/16/2021 Refill Adult Medicine [address] [id number] Pau Shultz PA [address] [place] [address] [phone] E-prescribe Rx Request Social History Tobacco Use [...] Miscellaneous Notes * Telephone Encounter - Maria Isbael Brady M.A. - 07/22/2021 12:20 PM EST [...] N/A Patients current insurance carrier is: Payor: [facility] M[facility] / Plan: O $0 [facility] [id number] / Product Type: HMO [id number] documented in this encounter Plan of Treatment Not on file documented as of this encounter Visit Diagnoses Not on filedocumented in this encounter Care Teams Pilot Relationship Specialty Start Date End Date Wiley Thompson MD PCP - General Internal Medicine 06/04/14 01/20/22 Kathy Christopher MD [address] [place] [address] 11656 PCP - General Internal Medicine 01/21/22 Kameron Zuñiga MD Weekend Caregiver Cardiovascular Disease 08/04/21 Katya Lopez NP Cardiology 08/04/21 01/30/24 Be Pacheco NP [address] [place] [address] 06202 Nurse Practitioner Cardiology 10/17/22 01/30/24 Maycol Infante MD [address] [place] [address] 80855 Specialist Pulmonology 10/19/22 Sebastian Martinez MD [address] [place] [address] 54538 Specialist Ophthalmology 03/21/23 Eve Juan MD [address] [place] [address] [place] [address] Specialist UROGYNECOLOGY 03/21/23 Elisa Romero NP [address] [place] [address] [place] [address] Cardiology 01/31/24 Marcus Murcia DO [address] [place] [address] [place] [address] Specialist Physiatry 03/26/24 documented as of this encounter
--- OUTSIDE RECORDS SUMMARY | 2024-10-08 12:07 | XMS_ITS | Encounter Summary ---
Author Organization [facility] Address [address] [place] [address] Care Team Providers Care Bridge Painter Helper Name Role Phone Wiley Thompson MD Primary Care Provider Kameron Cornejo MD Unavailable Katya Lopez NP Unavailable Unavailab Kathy Haley MD Primary Care Prov ider Be Pacheco NP Unavailable [phone] Maycol Infante MD Unavailable Unavailable Sebastian Martinez MD Unavailable UnavailEve Blackmon MD Unavailable Elisa Romero NP Unavailable [phone] Marcus Murcia DO Unavailable Unavailable Encounter Details Date Type Department Care Team Description 07/28/2021 Hospital Medical Records [address] [place] [address] Abstract, Provider Social History Tobacco Use Types [...] filedocumented in this encounter Care Teams Bridge Painter Helper Relationship Specialty Start Date End Date Wiley Thompson MD PCP - General Internal Medicine 06/04/14 01/20/22 Kathy Christopher MD [address] [place] [address] 52300 PCP - General Internal Medicine 01/21/22 Kameron Zuñiga MD Gardener Florist Cardiovascular Disease 08/04/21 Katya Lopez NP Cardiology 08/04/21 01/30/24 Be Pacheco NP [address] [place] [address] 60759 Nurse Practitioner Cardiology 10/17/22 01/30/24 Maycol Infante MD [address] [place] [address] 58388 Specialist Pulmonology 10/19/22 Sebastian Martinez MD [address] [place] [address] 51576 Specialist Ophthalmology 03/21/23 Eve Juan MD [address] [place] [address] [place] [address] Specialist UROGYNECOLOGY 03/21/23 Elisa Romero NP [address] [place] [address] [place] [address] Cardiology 01/31/24 Marcus Murcai DO [address] [place] [address] [place] [address] Specialist Physiatry 03/26/24 documented as of this encounter
--- OUTSIDE RECORDS SUMMARY | 2024-10-08 12:07 | XMS_ITS | Encounter Summary ---
Author Organization [facility] Address [address] [place] [address] Care Team Providers Care Driving Instructor Name Role Phone Wiley Thompson MD Primary Care Provider Kameron Cornejo MD Unavailable Katya Lopez NP Unavailable Unavailab Kathy Haley MD Primary Care Prov ider Be Pacheco NP Unavailable [phone] Maycol Infante MD Unavailable Unavailable Sebastian Martinez MD Unavailable UnavailEve Blackmon MD Unavailable Elisa Romero NP Unavailable [phone] Marcus Murcia DO Unavailable Unavailable Reason for Visit * Reason Onset Date Comments refill request 08/01/2018 Encounter Details Date Type Department Care Team Description 08/01/2018 Refill Adult Medicine [address] [address] Wiley Thompson MD refill request Social History [...] N/A Patients current insurance carrier is: Payor: [facility] M[facility] / Plan: O $0 [facility] [id number] / Product Type: HMO [id number] documented in this encounter Plan of Treatment Not on file documented as of this encounter Visit Diagnoses Not on filedocumented in this encounter Care Teams Driving Instructor Relationship Specialty Start Date End Date Wiley Thompson MD PCP - General Internal Medicine 06/04/14 01/20/22 Kathy Christopher MD [address] [place] [address] 39594 PCP - General Internal Medicine 01/21/22 Kameron Zuñiga MD Watch And Clock Maker And Repairer Cardiovascular Disease 08/04/21 Katya Lopez NP Cardiology 08/04/21 01/30/24 Be Pacheco NP [address] [place] [address] 77248 Nurse Practitioner Cardiology 10/17/22 01/30/24 Maycol Infante MD [address] [place] [address] 90877 Specialist Pulmonology 10/19/22 Sebastian Martinez MD [address] [place], [place] [address] Specialist Ophthalmology 03/21/23 Eve Juan MD [address] [place] [address] [place] [address] Specialist UROGYNECOLOGY 03/21/23 Elisa Romero NP [address] [place] [address] [place] [address] Cardiology 01/31/24 Marcus Murcia DO [address] [place] [address] [place] [address] Specialist Physiatry 03/26/24 documented as of this encounter
--- OUTSIDE RECORDS SUMMARY | 2024-10-08 12:07 | XMS_ITS | Encounter Summary ---
Author Organization [facility] Address [address] [place] [address] Care Team Providers Care Clinical Lab Technologist Name Role Phone Wiley Thompson MD Primary Care Provider Kameron Cornejo MD Unavailable Katya Lopez NP Unavailable Unavailab Kathy Christopher MD Primary Care Prov ider Be Pacheco NP Unavailable [phone] Maycol Infante MD Unavailable Unavailable Sebastian Martinez MD Unavailable UnavailEve Blackmon MD Unavailable Elisa Romero NP Unavailable [phone] Marcus Murcia DO Unavailable Unavailable Encounter Details Date Type Department Care Team Description 04/29/2016 Controlled Substance Plan Medical Records [address] [place] [address] Abstract, Provider Social History Tobacco Use Types [...] on filedocumented in this encounter Care Teams Clinical Lab Technologist Relationship Specialty Start Date End Date Wiley Thompson MD PCP - General Internal Medicine 06/04/14 01/20/22 Kathy Christopher MD [address] [place] [address] 48992 PCP - General Internal Medicine 01/21/22 Kameron Zuñiga MD Hvac Sales Engineer Cardiovascular Disease 08/04/21 Katya Lopez NP Cardiology 08/04/21 01/30/24 Be Pacheco NP [address] [place] [address] 85566 Nurse Practitioner Cardiology 10/17/22 01/30/24 Maycol Infante MD [address] [place] [address] 18978 Specialist Pulmonology 10/19/22 Sebastian Martinez MD [address] [place], [place] [address] Specialist Ophthalmology 03/21/23 Eve Juan MD [address] [place] [address] [place] [address] Specialist UROGYNECOLOGY 03/21/23 Elisa Romero NP [address] [place] [address] [place] [address] Cardiology 01/31/24 Marcus Murcia DO [address] [place] [address] [place] [address] Specialist Physiatry 03/26/24 documented as of this encounter
--- OUTSIDE RECORDS SUMMARY | 2024-10-08 12:07 | XMS_ITS | Encounter Summary ---
Author Organization [facility] Address [address] [place] [address] Care Team Providers Care Event Promotions Coordinator Name Role Phone Kameron Zuñiga MD Unavailable Katya Lopez NP Unavailable Unavailab Kathy Haley MD Primary Care Prov ider Be Pacheco NP Unavailable [phone] Maycol Infante MD Unavailable Unavailable Sebastian Martinez MD Unavailable UnavailEve Blackmon MD Unavailable Elisa Romero NP Unavailable [phone] Marcus Murcia DO Unavailable Unavailable Encounter Details Date Type Department Care Team Description 2022 Orders Only Cardio PVC POC [address] [facility] [address] [place] [address] Default, Provider Social History Tobacco Use Types [...] on filedocumented in this encounter Care Teams Event Promotions Coordinator Relationship Specialty Start Date End Date Kathy Christopher MD [address] [place] [address] 21744 PCP - General Internal Medicine 01/21/22 Kameron Zuñiga MD Forest Fire Specialist Supervisor Cardiovascular Disease 08/04/21 Katya Lopez NP Cardiology 08/04/21 01/30/24 Be Pacheco NP [address] [place] [address] 96918 Nurse Practitioner Cardiology 10/17/22 01/30/24 Maycol Infante MD [address] [place] [address] 54623 Specialist Pulmonology 10/19/22 Sebastian Martinez MD [address] [place] [address] 56172 Specialist Ophthalmology 03/21/23 Eve Juan MD [address] [place] [address] [place] [address] Specialist UROGYNECOLOGY 03/21/23 Elisa Romero NP [address] [place] [address] [place] [address] Cardiology 01/31/24 Marcus Murcia DO [address] [place] [address] [place] [address] Specialist Physiatry 03/26/24 documented as of this encounter
--- OUTSIDE RECORDS SUMMARY | 2024-10-08 12:07 | XMS_ITS | Encounter Summary ---
Author Organization [facility] Address [address] [place] [address] Care Team Providers Care Laser Systems Engineer Name Role Phone Wiley Thompson MD Primary Care Provider Kameron Cornejo MD Unavailable Katya Lopez NP Unavailable Unavailab Kathy Haley MD Primary Care Prov ider Be Pacheco NP Unavailable [phone] Maycol Infante MD Unavailable Unavailable Sebastian Martinez MD Unavailable UnavailEve Blackmon MD Unavailable Elisa Romero NP Unavailable [phone] Marcus Murcia DO Unavailable Unavailable Encounter Details Date Type Department Care Team Description 09/03/2020 Old Medical Records Medical Records [address] [place] [address] 13914 Abstract, Provider Social History Tobacco Use Types [...] on filedocumented in this encounter Care Teams Laser Systems Engineer Relationship Specialty Start Date End Date Wiley Thompson MD PCP - General Internal Medicine 06/04/14 01/20/22 Kathy Christopher MD [address] [place] [address] 05036 PCP - General Internal Medicine 01/21/22 Kameron Zuñiga MD Grade Foreman Cardiovascular Disease 08/04/21 Katya Lopez NP Cardiology 08/04/21 01/30/24 Be Pacheco NP [address] [place] [address] 34024 Nurse Practitioner Cardiology 10/17/22 01/30/24 Maycol Infante MD [address] [place] [address] 77266 Specialist Pulmonology 10/19/22 Sebastian Martinez MD [address] [place] [address] 29185 Specialist Ophthalmology 03/21/23 Eve Juan MD [address] [place] [address] [place] [address] Specialist UROGYNECOLOGY 03/21/23 Elisa Romero NP [address] [place] [address] [place] [address] Cardiology 01/31/24 Marcus Murcia DO [address] [place] [address] [place] [address] Specialist Physiatry 03/26/24 documented as of this encounter
--- OUTSIDE RECORDS SUMMARY | 2024-10-08 12:07 | XMS_ITS | Encounter Summary ---
Author Organization [facility] Address [address] [place] [address] Care Team Providers Care District Court Reporter Name Role Phone Wiley Thompson MD Primary Care Provider Kameron Cornejo MD Unavailable Katya Lopez NP Unavailable Unavailab Kathy Haley MD Primary Care Prov ider Be Pacheco NP Unavailable [phone] Maycol Infante MD Unavailable Unavailable Sebastian Martinez MD Unavailable UnavailEve Blackmon MD Unavailable Elisa Romero NP Unavailable [phone] Marcus Murcia DO Unavailable Unavailable Reason for Visit * Reason Onset Date Comments TEST RESULTS 10/12/2020 Encounter Details Date Type Department Care Team Description 10/12/2020 Telephone Adult Medicine [address] [address] Wiley Thompson MD TEST RESULTS Social History Tobacco Use Types Packs/Day Years [...] encounter Miscellaneous Notes * Telephone Encounter - Chula Onofre M.A. - 10/13/2020 9:24 AM EDT Read comment to patient * Telephone Encounter - Ricarda Huynh - 10/12/2020 4:49 PM EDT Inform patient: ANY URGENT OR ABNORMAL RESULTS WIILL RESULT IN A CALL BACK TO THE PATIENT CANDICE. Type of test: : x-ray Date test was performed: 10/08/20 Where was the test performed: [address] [place] [address] Who ordered this test?: Kitty LOPEZ Is the doctor here today?: YES Can the message wait until the doctor returns?: YES IF PATIENT'S PCP IS NOT IN INSTRUCT PATIENT THAT THEY WILL RECEIVE A CALL BACK WHEN THE PCP IS IN THE OFFICE NEXT. documented in this encounter Plan of Treatment Not on file documented as of this encounter Visit Diagnoses Not on filedocumented in this encounter Care Teams District Court Reporter Relationship Specialty Start Date End Date Wiley Thompson MD PCP - General Internal Medicine 06/04/14 01/20/22 Kathy Christopher MD [address] [place] [address] 92423 PCP - General Internal Medicine 01/21/22 Kameron Zuñiga MD Fowl Blood Tester Cardiovascular Disease 08/04/21 Katya Lopez NP Cardiology 08/04/21 01/30/24 Be Pacheco NP [address] [place] [address] 52471 Nurse Practitioner Cardiology 10/17/22 01/30/24 Maycol Infante MD [address] [place] [address] 89354 Specialist Pulmonology 10/19/22 Sebastian Martinez MD [address] [place] [address] 25339 Specialist Ophthalmology 03/21/23 Eve Juan MD [address] [place] [address] [place] [address] Specialist UROGYNECOLOGY 03/21/23 Elisa Romero NP [address] [place] [address] [place] [address] Cardiology 01/31/24 Marcus Murcia DO [address] [place] [place] [address] [place] [address] Specialist Physiatry 03/26/24 documented as of this encounter
--- OUTSIDE RECORDS SUMMARY | 2024-10-08 12:07 | XMS_ITS | Encounter Summary ---
Author Organization [facility] Address [address] [place] [address] Care Team Providers Care Kitchen Utility Associate Name Role Phone Wiley Thompson MD Primary Care Provider Kameron Cornejo MD Unavailable Katya Lopez NP Unavailable Unavailab Kathy Christopher MD Primary Care Prov ider Be Pacheco NP Unavailable [phone] Maycol Infante MD Unavailable Unavailable Sebastian Martinez MD Unavailable UnavailEve Blackmon MD Unavailable Elisa Romero NP Unavailable [phone] Marcus Murcia DO Unavailable Unavailable Encounter Details Date Type Department Care Team Description 01/09/2020 Inventory Controller Report Medical Records [address] [place] [address] Kartik An MD Social History Tobacco Use [...] on filedocumented in this encounter Care Teams Kitchen Utility Associate Relationship Specialty Start Date End Date Wiley Thompson MD PCP - General Internal Medicine 06/04/14 01/20/22 Kathy Christopher MD [address] [place] [address] 12191 PCP - General Internal Medicine 01/21/22 Kameron Zuñiga MD Weight Reducing Technician Cardiovascular Disease 08/04/21 Katya Lopez, IRMA Cardiology 08/04/21 01/30/24 Be Pacheco NP [address] [place] [address] 51038 Nurse Practitioner Cardiology 10/17/22 01/30/24 Maycol Infante MD [address] [place] [address] 77951 Specialist Pulmonology 10/19/22 Sebastian Martinez MD [address] [place] [address] 07579 Specialist Ophthalmology 03/21/23 Eve Juan MD [address] [place] [address] [place] [address] Specialist UROGYNECOLOGY 03/21/23 Elisa Romero NP [address] [place] [address] [place] [address] Cardiology 01/31/24 Marcus Murcia DO [address] [place] [address] [place] [address] Specialist Physiatry 03/26/24 documented as of this encounter
--- OUTSIDE RECORDS SUMMARY | 2024-10-08 12:07 | XMS_ITS | Encounter Summary ---
Author Organization [facility] Address [address] [place] [address] Care Team Providers Care Continuous Absorption Process Operator Name Role Phone Wiley Thompson MD Primary Care Provider Kameron Cornejo MD Unavailable Katya Lopez NP Unavailable Unavailab Kathy Christopher MD Primary Care Prov ider Be Pacheco NP Unavailable [phone] Maycol Infante MD Unavailable Unavailable Sebastian Martinez MD Unavailable UnavailEve Blackmon MD Unavailable Elisa Romero NP Unavailable [phone] Marcus Murcia DO Unavailable Unavailable Encounter Details Date Type Department Care Team Description 07/30/2014 Controlled Substance Plan Medical Records [address] [place] [address] 13648 Abstract, Provider Social History Tobacco Use Types [...] filedocumented in this encounter Care Teams Continuous Absorption Process Operator Relationship Specialty Start Date End Date Wiley Thompson MD PCP - General Internal Medicine 06/04/14 01/20/22 Kathy Christopher MD [address] [place] [address] 51360 PCP - General Internal Medicine 01/21/22 Kameron Zuñiga MD Forge Hand Cardiovascular Disease 08/04/21 Katya Lopez NP Cardiology 08/04/21 01/30/24 Be Pacheco NP [address] [place] [address] 43451 Nurse Practitioner Cardiology 10/17/22 01/30/24 Maycol Infante MD [address] [place] [address] 59541 Specialist Pulmonology 10/19/22 Sebastian Martinez MD [address] [place], [place] [address] Specialist Ophthalmology 03/21/23 Eve Juan MD [address] [place] [address] [place] [address] Specialist UROGYNECOLOGY 03/21/23 Elisa Romero NP [address] [place] [address] [place] [address] Cardiology 01/31/24 Marcus Murcia DO [address] [place] [address] [place] [address] Specialist Physiatry 03/26/24 documented as of this encounter
--- OUTSIDE RECORDS SUMMARY | 2024-10-08 12:07 | XMS_ITS | Encounter Summary ---
Author Organization [facility] Address [address] [place] [address] Care Team Providers Care Search Engine Optimizer Name Role Phone Kameron Zuñiga MD Unavailable Katya Lopez NP Unavailable Unavailab le Kathy Christopher MD Primary Care Prov ider Be Pacheco NP Unavailable [phone] Maycol Infante MD Unavailable Unavailable Sebastian Martinez MD Unavailable UnavailEve Blackmon MD Unavailable Elisa Romero NP Unavailable [phone] Marcus Murcia DO Unavailable Unavailable Encounter Details Date Type Department Care Team Description 07/19/2023 Convenience Recycle Center Tech Report Medical Records [address] [place] [address]84 Maycol Infante MD Social History Tobacco Use [...] on filedocumented in this encounter Care Teams Search Engine Optimizer Relationship Specialty Start Date End Date Kathy Christopher MD [address] [place], [place] [phone] PCP - General Internal Medicine 01/21/22 Kameron Zuñiga MD Nuclear Licensing Engineer Cardiovascular Disease 08/04/21 Katya Lopez NP Cardiology 08/04/21 01/30/24 Be Pacheco NP [address] [place] [address] 01972 Nurse Practitioner Cardiology 10/17/22 01/30/24 Maycol Infante MD [address] [place] [address] 48095 Specialist Pulmonology 10/19/22 Sebastian Martinez MD [address] [place] [address] Specialist Ophthalmology 03/21/23 Eve Juan MD [address] [place] [address] [place] [address] Specialist UROGYNECOLOGY 03/21/23 Elisa Romero NP [address] [place] [address] [place] [address] Cardiology 01/31/24 Marcus Murcia DO [address] [place] [address] [place] [address] Specialist Physiatry 03/26/24 documented as of this encounter
--- OUTSIDE RECORDS SUMMARY | 2024-10-08 12:07 | XMS_ITS | Encounter Summary ---
Author Organization [facility] Address [address] [place] [address] Care Team Providers Care Radio Repair Teacher Name Role Phone Wiley Thompson MD Primary Care Provider Kameron Cornejo MD Unavailable Katya Lopez NP Unavailable Unavailab Kathy Haley MD Primary Care Prov ider Be Pacheco NP Unavailable [phone] Maycol Infante MD Unavailable Unavailable Sebastian Martinez MD Unavailable UnavailEve Blackmon MD Unavailable Elisa Romero NP Unavailable [phone] Marcus Murcia DO Unavailable Unavailable Encounter Details Date Type Department Care Team Description 10/02/2015 Orders Only Adult Medicine - [place] [address] [place] [address] Adam Camp PA Neck pain (Primary Dx) [...] Cervicalgia documented in this encounter Care Teams Radio Repair Teacher Relationship Specialty Start Date End Date Wiley Thompson MD PCP - General Internal Medicine 06/04/14 01/20/22 Kathy Christopher MD [address] [place] [address] 81273 PCP - General Internal Medicine 01/21/22 Kameron Zuñiga MD Security Flex Utility Officer Cardiovascular Disease 08/04/21 Katya Lopez NP Cardiology 08/04/21 01/30/24 Be Pacheco NP [address] [place] [address] 33001 Nurse Practitioner Cardiology 10/17/22 01/30/24 Maycol Infante MD [address] [place] [address] 6[address]86 Specialist Pulmonology 10/19/22 Sebastian Martinez MD [address] [place] [address] 19860 Specialist Ophthalmology 03/21/23 Eve Juan MD [address] [place] [address] [place] [address] Specialist UROGYNECOLOGY 03/21/23 Elisa Romero NP [address] [place] [address] [place] [address] Cardiology 01/31/24 Marcus Murcia DO [address] [place] [address] [place] [address] Specialist Physiatry 03/26/24 documented as of this encounter
--- OUTSIDE RECORDS SUMMARY | 2024-10-08 12:07 | XMS_ITS | Encounter Summary ---
Author Organization [facility] Address [address] [place] [address] Care Team Providers Care Improvement Analyst Name Role Phone Kathy Perez MD Primary Care Prov ider Reason for Visit * Reason Onset Date Comments Appointment 10/03/2024 Encounter Details Date Type Department Care Team (Late st Contact Info) Description 10/03/2024 Telephone [facility] - [facility] [address] [facility] [address] [place] [phone] Kameron Zuñiga MD [address] [place], [place] [phone] Appointment Social History Tobacco Use Types Packs/Day [...] for your loved ones. For example, child health associate or elderly care for an older adult? [...] as of this encounter Progress Notes * Romeo Cline - 10/03/2024 8:29 AM EDT Zahraa calling because Shea has a infection and the only day she could see her Primary care doctorfor the earliest appointment would be today before the weeknd. Dr Zuñiga has no availability at this time we will call back when something is available. documented in this encounter Plan of Treatment Upcoming Encounters Date Type Department Care Team (Late st Contact Info) Description 01/28/2025 1:15 PM EDT Office Visit Adult Medicine [address] [phone] Kathy Perez MD [address] [place] [address] documented as of this encounter Visit Diagnoses Not on filedocumented in this encounter Care Teams Improvement Analyst Relationship Specialty Start Date End Date Kathy Perez MD [address] [place] [address] PCP - General Internal Medicine 07/22/24 documented as of this encounter
--- OUTSIDE RECORDS SUMMARY | 2024-10-08 12:07 | XMS_ITS | Encounter Summary ---
Author Organization [facility] Address [address] [place] [address] Care Team Providers Care Executive Relations Specialist Name Role Phone Wiley Thompson MD Primary Care Provider Kameron Cornejo MD Unavailable Katya Lopez NP Unavailable Unavailab Kathy Haley MD Primary Care Prov ider Be Pacheco NP Unavailable [phone] Maycol Infante MD Unavailable Unavailable Sebastian Martinez MD Unavailable UnavailEve Blackmon MD Unavailable Elisa Romero NP Unavailable [phone] Marcus Murcia DO Unavailable Unavailable Encounter Details Date Type Department Care Team Description 11/21/2018 Orders Only Medical Records [address] [place] [address] Maycol Infante MD Social History Tobacco Use [...] on filedocumented in this encounter Care Teams Executive Relations Specialist Relationship Specialty Start Date End Date Wiley Thompson MD PCP - General Internal Medicine 06/04/14 01/20/22 Kathy Christopher MD [address] [place] [address] PCP - General Internal Medicine 01/21/22 Kameron Zuñiga MD Collar Sewer Cardiovascular Disease 08/04/21 Katya Lopez NP Cardiology 08/04/21 01/30/24 Be Pacheco NP [address] [place] [address] Nurse Practitioner Cardiology 10/17/22 01/30/24 Maycol Infante MD [address] [place] [address] Specialist Pulmonology 10/19/22 Sebastian Martinez MD [address] [place] [address] Specialist Ophthalmology 03/21/23 Eve Juan MD [address] [place] [address] [place] [address] Specialist UROGYNECOLOGY 03/21/23 Elisa Romero NP [address] [place] [address] [place] [address] Cardiology 01/31/24 Marcus Murcia DO [address] [place] [address] [place] [address] Specialist Physiatry 03/26/24 documented as of this encounter
--- OUTSIDE RECORDS SUMMARY | 2024-10-08 12:07 | XMS_ITS | Encounter Summary ---
Author Organization [facility] Address [address] [place] [address] Care Team Providers Care Timber Sizer Operator Name Role Phone Bri Santacruz MD Primary Care Provider Unavailable Wiley Thompson MD Primary Care Provider Kameron Cornejo MD Unavailable Katya Lopez NP Unavailable Unavailab Kathy Haley MD Primary Care Prov ider Be Pacheco NP Unavailable [phone] Maycol Infante MD Unavailable Unavailable Sebastian Martinez MD Unavailable UnavailEve Blackmon MD Unavailable Elisa Romero NP Unavailable [phone] Marcus Murcia DO Unavailable Unavailable Encounter Details Date Type Department Care Team Description 05/27/2014 Controlled Substance Plan Medical Records [address] [place] [address] Abstract, Provider Social History Tobacco Use Types [...] on filedocumented in this encounter Care Teams Timber Sizer Operator Relationship Specialty Start Date End Date Bri Santacruz MD PCP - General Internal Medicine 04/23/12 06/03/14 Wiley Thompson MD PCP - General Internal Medicine 06/04/14 01/20/22 Kathy Christopher MD [address] [place] [address] PCP - General Internal Medicine 01/21/22 Kameron Zuñiga MD Necktie Operator Pockets And Pieces Cardiovascular Disease 08/04/21 Katya Lopez NP Cardiology 08/04/21 01/30/24 Be Pacheco NP [address] [place] [address] Nurse Practitioner Cardiology 10/17/22 01/30/24 Maycol Infante MD [address] [place] [address] Specialist Pulmonology 10/19/22 Sebastian Martinez MD [address] [place] [address] Specialist Ophthalmology 03/21/23 Eve Juan MD [address] [place] [address] [place] [address] Specialist UROGYNECOLOGY 03/21/23 Elisa Romero NP [address] [place] [address] [place] [address] Cardiology 01/31/24 Marcus Murcia DO [address] [place] [address] [place] [address] Specialist Physiatry 03/26/24 documented as of this encounter
--- OUTSIDE RECORDS SUMMARY | 2024-10-08 12:07 | XMS_ITS | Encounter Summary ---
Author Organization [facility] Address [address] [place] [address] Care Team Providers Care Display Department Manager Name Role Phone Wiley Thompson MD Primary Care Provider Kameron Cornejo MD Unavailable Katya Lopez NP Unavailable Unavailab Kathy Christopher MD Primary Care Prov ider Be Pacheco NP Unavailable [phone] Maycol Infante MD Unavailable Unavailable Sebastian Martinez MD Unavailable UnavailEve Blackmon MD Unavailable Elisa Romero NP Unavailable [phone] Marcus Murcia DO Unavailable Unavailable Encounter Details Date Type Department Care Team Description 05/31/2016 Director Agency & Strategic Partnerships Report Medical Records [address] [place] [address] Raissa Cavazos Social History Tobacco Use Types [...] on filedocumented in this encounter Care Teams Display Department Manager Relationship Specialty Start Date End Date Wiley Thompson MD PCP - General Internal Medicine 06/04/14 01/20/22 Kathy Christopher MD [address] [place] [address] PCP - General Internal Medicine 01/21/22 Kameron Zuñiga MD Electronics Warfare Technician Cardiovascular Disease 08/04/21 Katya Lopez NP Cardiology 08/04/21 01/30/24 Be Pacheco NP [address] [place] [address] Nurse Practitioner Cardiology 10/17/22 01/30/24 Maycol Infante MD [address] [place] [address] Specialist Pulmonology 10/19/22 Sebastian Martinez MD [address] [place], [place] [phone] Specialist Ophthalmology 03/21/23 Eve Juan MD [address] [place] [address] [place] [address] Specialist UROGYNECOLOGY 03/21/23 Elisa Romero NP [address] [place] [address] [place] [address] Cardiology 01/31/24 Marcus Murcia DO [address] [place] [address] [place] [address] Specialist Physiatry 03/26/24 documented as of this encounter
--- OUTSIDE RECORDS SUMMARY | 2024-10-08 12:07 | XMS_ITS | Data Portability ---
Author Organization [facility] Address [address] [place] [phone] Care Team Providers Care Electrician Outside Name Role Phone [facility] Referring Provider [phone] [facility] OTHER Assessment Encounter Date Assessment Date Assessment LastModified by Organization Details LastModified Time 04/20/2024 04/20/2024 I provided real -time medical direction via phone for this encounter and was available for additional phone-based assistance as needed. I have reviewed and agree with the Assessment and Plan as documented by the Java Groovy Developer. Patient given the opportunity to ask questions. [...] on metoprolol to for rate control. Per shipyard laborer on the scene, vital signs are stable [...] have any evidence of volume overload per shipyard laborer on the scene. She has no evidence [...] respiratory specimen 2022 023 [email or web address] Main - [facility], [address] [place] [address], [phone] 3 20:04:39 rapid flu (A+B) 2022 023 [email or web address] Main - [facility], [address] [place] [address], [phone] 3 20:04:40 rapid strep group A, throat 2022 023 [email or web address] Main - [facility], [address] [place] [address], [phone] 3 20:04:38 culture, urine 2022 023 CLEMENT [facility] (Centralized Electronic Ordering - All Locations), Patient Can Go To The Location Of Their Choice, [address] 3 07:41:06 Referral None recorded. Procedures None recorded. Surgeries None recorded. Imaging None recorded. Medication Orders Levaquin 500 mg tablet 2022 023 [email or web address] [facility], [address] [place] [address], [place], [address], 3 13:34:52 Patient TargetsNo targets recorded. Patient InstructionsNo instructions recorded. Reason for Referral None Reported. Results Created Date Observation Date Name Description Value Unit Range Abnormal Flag Note LastModifiedBy Organization Detail LastModifiedTime 09/28/19 23 09/27/2022 URINE CULTU RE specimen description URINE Not Available [facility] (Centralized Electronic Ordering - All Locations) Patient Can Go To The Location Of Their Choice, [id number] 09/29/2022 07:41:06 09/28/19 23 09/27/2022 URINE CULTU RE special requests NONE Not Available [facility] (Centralized Electronic Ordering - All Locations) Patient Can Go To The Location Of Their Choice, [facility] 09/29/2022 07:41:06 09/28/19 23 09/29/2022 URINE CULTU RE culture NO GROWTH Not Available [facility] (Centralized Electronic Ordering - All Locations) Patient Can Go To The Location Of Their Choice, [facility] 09/29/2022 07:41:06 09/28/19 23 09/29/2022 URINE CULTU RE report status FINAL 2022 Not Available [facility] (Centralized Electronic Ordering - All Locations) Patient Can Go To The Location Of Their Choice, [facility] 09/29/2022 07:41:06 06/17/20 23 06/17/2023 rapid strep group A, throa t Strep negati ve Not Available [facility] ed [address] [place] [address], [address] [place] [address] 06/17/2023 20:04:20 06/17/20 23 06/17/2023 rapid flu (A+B) Flu negati ve Not Available [facility] ed [address] [place] [address], [address] [place] [address] 06/17/2023 20:04:18 06/17/20 23 06/17/2023 rapid SARS CoV 2 Ag, QL IA, respi rator y speci men rapid SARS CoV 2 Ag, QL IA, respiratory specimen negati ve Not Available [facility] ed [address] [place] [address], [address] [place] [address] 06/17/2023 20:04:15 Result Notes None recorded. Medical Equipment None Reported. Allergies Allergen ID Allergen Name Allergen Category Reaction Reaction Severity Criticality Documentation Date Start Date Code Code System Note Provider Name and Address Organization Details Recorded Time 7839 Product containin g penicilli n (product) medicatio n Not available Not available Not available 04/16/2024 04845 8001 SNOMED Not Available [facility] - production [...] Updated DateTime 3 16 /min 162.56 cm 54837.5 6 g 90 /min 96 % 96 % 99.5 [degF] 143 mm[Hg] 68 mm[Hg] Not Available [facility] - production 3 19:48:26 Date Recorded Body weight Respiratory rate Heart rate Body height Body temperature Oxygen saturation Oxygen saturation in Arterial blood by Pulse oximetry Systolic blood pressure Diastolic blood pressure Provider Name and Address Organization Details Last Updated DateTime 4 71437.5 6 g 18 /min 111 /min 162.56 [...] % 98 % 95.7 [degF] 73 /min 78996.5 6 g 16 /min 125 mm[Hg] 67 [...] Praveen Valdovinos MD Main - [facility] [address] [place] [phone] 09/27/2022 13:30:25 09/29/2022 10:29:50 Acute urinary tract infection 096074940 N39.0 [id number] Petra Elmore MD Main - [facility] [address] [place] [phone] 06/17/2023 19:48:24 06/20/2023 12:24:39 Upper respiratory infection 48079962 J06.9 Evaluation in the field was performed by my shipyard laborer colleague, as noted above, I provided real-time [...] shortness of breath, cough, chest pain, fever. [id number] Jackie Ardon MD [facility] [address] [place] [phone] 04/20/2024 14:23:19 04/20/2024 19:15:29 Decreased urine output 423494717 R34 Chronic ki dney disease stage 3 363792645 N18.30 Tachycardia 2915077 R00. 0 Health Concerns Section Related Observation LastModified by Organization Detai ls LastModified Time None Recorded Concern Status LastModified by Organization Details LastModified Time None Recorded Advance Directives Directive None Recorded Payers Encounter Date Sequence Insurance Name Policy Number Policy Wagner Covered Member ID Wagner Member ID Guarantor Name 09/27/2022 1 [facility] - DOS PRIOR TO 2022 - DUAL ELIGIBLE (MEDICARE REPLACEMENT/ADV ANTAGE - HMO) [facility] [id number] Shea J Pares 06/17/2023 1 [facility] - DOS ON OR AFTER 2022 - DUAL ELIGIBLE - [facility] OPTIONS AND ONE CARE (MEDICARE REPLACEMENT/ADV ANTAGE - HMO) [facility] [id number] Shea J Pares 04/20/2024 1 [facility] - DOS ON OR AFTER 2022 - DUAL ELIGIBLE - [facility] OPTIONS AND ONE CARE (MEDICARE REPLACEMENT/ADV ANTAGE - HMO) [facility] [id number] [facility] Pares Notes Date Note Type Note Provider [...] . Member denies F/c/n/v/d Praveen Valdovinos MD [address] [place] [address],[address], [place], [address], [facility] 09/27/2022 13:35:12 023 text/ht ml HPI: Member [...] process visit. ................................... ................................... ................................... ................................... . Java Groovy Developer Note From Max Clemens: Pt reports dry [...] ................................... . Disposition: Fulfilled Petra Elmore MD [address] [place] [address],[address], [place], [address], [facility] 06/17/2023 20:04:49 024 text/ht ml HPI: mbr with multiple complaints, states experienced SOB last night where she had decided to take a diuretic, denies any Urine output at this time questioning retention , but does mention changing briefs multiple times over night, denies any Abdominal pain pressure or discomfort, no LE edema CP/N/V. per mbr B/P 153/78 HR 111. mbr requesting [facility] for evaluation.Protocol Used: Urinary SymptomsProtocol-Based Disposition: Consider [facility], ARCHITECTURAL JOB CAPTAIN, MD/ALEMITE OPERATOR triage, PCP, or ED /Urgent Care Visit [...] Comments: Reviewed HPI SEGMD: Visit closed by [facility] end of shift before medic note transferred into [place], so I entered it below: SummarySmartcare visit [...] this was present yesterday in visit with ALEMITE OPERATOR as well. Pt afebrile. Lung sounds clear bilaterally. Pt concerned about possible cloudy urine as well. Pt was unable to provide urine specimen for testing. Consulted with [facility] Dr. Casas who advised continuing to monitor symptoms. Reviewed red flags for ED. Pt education provided.Services ProvidedPatient EducationDispositionFulfilledWas patient sent to ED?[facility] consulted on the case?Yes - Solange Casas MD [address] [facility],[address], [place], [address], [employer] - [facility] 04/23/2024 15:04:20 OBGyn Episode No OBEpisode recorded.
--- OUTSIDE RECORDS SUMMARY | 2024-10-08 12:07 | XMS_ITS | Encounter Summary ---
Author Organization [facility] Address [address] [place] [address] Care Team Providers Care Ingredient Scaler Helper Name Role Phone Wiley Thompson MD Primary Care Provider Kameron Cornejo MD Unavailable Katya Lopez NP Unavailable Unavailab Kathy Haley MD Primary Care Prov ider Be Pacheco NP Unavailable [phone] Maycol Infante MD Unavailable Unavailable Sebastian Martinez MD Unavailable UnavailEve Blackmon MD Unavailable Elisa Romero NP Unavailable [phone] Marcus Murcia DO Unavailable Unavailable Encounter Details Date Type Department Care Team Description 03/10/2016 Orders Only Adult Medicine [address] [phone] Wiley Thompson MD Iron deficiency anemia due [...] [facility] VALID yea [facility] 03/10/2016 H Duncan Sharp MD [facility] [address] [place] [address] documented in this encounter Visit Diagnoses Diagnosis Iron deficiency anemia due to chronic blood loss Iron deficiency anemia secondary to blood loss (chronic) documented in this encounter Care Teams Ingredient Scaler Helper Relationship Specialty Start Date End Date Wiley Thompson MD PCP - General Internal Medicine 06/04/14 01/20/22 Kathy Christopher MD [address] [place] [address] PCP - General Internal Medicine 01/21/22 Kameron Zuñiga MD Senior Category Manager Cardiovascular Disease 08/04/21 Katya Lopez NP Cardiology 08/04/21 01/30/24 Be Pacheco NP [address] [place] [address] Nurse Practitioner Cardiology 10/17/22 01/30/24 Maycol Infante MD [address] [place] [address] Specialist Pulmonology 10/19/22 Sebastian Martinez MD [address] [place] [address] Specialist Ophthalmology 03/21/23 Eve Juan MD [address] [place] [address] [place] [address] Specialist UROGYNECOLOGY 03/21/23 Elisa Romreo NP [address] [place] [address] [place] [address] Cardiology 01/31/24 Marcus Murcia DO [address] [facility] [place] [address] Specialist Physiatry 03/26/24 documented as of this encounter
--- OUTSIDE RECORDS SUMMARY | 2024-10-08 12:07 | XMS_ITS | Encounter Summary ---
Author Organization [facility] Address [address] [place] [address] Care Team Providers Care Leather Tooler Name Role Phone Wiley Thompson MD Primary Care Provider Kameron Cornejo MD Unavailable Katya Lopez NP Unavailable Unavailab Kathy Haley MD Primary Care Prov ider Be Pacheco NP Unavailable [phone] Maycol Infante MD Unavailable Unavailable Sebastian Martinez MD Unavailable UnavailEve Blackmon MD Unavailable Elisa Romero NP Unavailable [phone] Marcus Murcia DO Unavailable Unavailable Reason for Referral * Non CARIN (Routine) - Closed Specialty Diagnoses / Procedures Referred By Contac t Referred To Contact Physiatry Diagnoses Neck pain Procedures REFERRAL TO PHYSIATRY Adam Camp PA [address] [place] [address] Zahraa Zhang MD [address] [place] [address] [place] [address] Referral ID Status Reason Start Date Expiration Date Visits Re quested Visits Authorized [id number] Closed 10/02/2015 10/01/2016 1 1 Reason for Visit * Reason Onset Date Comments REFERRAL 10/02/2015 Encounter Details Date Type Department Care Team Description 10/02/2015 Telephone Adult Medicine [facility] [address] [place] [address] Adam Camp PA REFERRAL Social History Tobacco [...] Cervicalgia documented in this encounter Care Teams Leather Tooler Relationship Specialty Start Date End Date Wiley Thompson MD PCP - General Internal Medicine 06/04/14 01/20/22 Kathy Christopher MD [address] [place] [address] PCP - General Internal Medicine 01/21/22 Kameron Zuñiga MD Die Attacher Cardiovascular Disease 08/04/21 Katya Lopez NP Cardiology 08/04/21 01/30/24 Be Pacheco NP [address] [place] [address]67 Nurse Practitioner Cardiology 10/17/22 01/30/24 Maycol Infante MD [address] [place] [address]758 Specialist Pulmonology 10/19/22 Sebastian Martinez MD [address] [place] [address] Specialist Ophthalmology 03/21/23 Eve Juan MD [address] [place] [address] [place] [address] Specialist UROGYNECOLOGY 03/21/23 Elisa Romero NP [address] [place] [address] [place] [address] Cardiology 01/31/24 Marcus Murcia DO [address] [place] [address] [place] [address] Specialist Physiatry 03/26/24 documented as of this encounter
--- OUTSIDE RECORDS SUMMARY | 2024-10-08 12:07 | XMS_ITS | Encounter Summary ---
Author Organization [facility] Address [address] [place] [address] Care Team Providers Care Corporation Lawyer Name Role Phone Wiley Thompson MD Primary Care Provider Kameron Cornejo MD Unavailable Katya Lopez NP Unavailable Unavailab Kathy Haley MD Primary Care Prov ider Be Pacheco NP Unavailable [phone] Maycol Infante MD Unavailable Unavailable Sebastian Martinez MD Unavailable UnavailEve Blackmon MD Unavailable Elisa Romero NP Unavailable [phone] Marcus Murcia DO Unavailable Unavailable Encounter Details Date Type Department Care Team Description 06/15/2020 Hospital Medical Records [address] [place] [address] Christophe Sharp MD [address] [place] [address] [phone] Social History Tobacco Use Types Packs/Day Years [...] on filedocumented in this encounter Care Teams Corporation Lawyer Relationship Specialty Start Date End Date Wiley Thompson MD PCP - General Internal Medicine 06/04/14 01/20/22 Trina Rizo, Kathy Fried MD [address] [place] [address] PCP - General Internal Medicine 01/21/22 Kameron Zuñiga MD Assistant Branch Manager Cardiovascular Disease 08/04/21 Katya Lopez NP Cardiology 08/04/21 01/30/24 Be Pacheco NP [address] [place] [address]84 Nurse Practitioner Cardiology 10/17/22 01/30/24 Maycol Infante MD [address] [place] [address] Specialist Pulmonology 10/19/22 Sebastian Martinez MD [address] [place], [place] [phone] Specialist Ophthalmology 03/21/23 Eve Juan MD [address] [place] [address] [place] [address] Specialist UROGYNECOLOGY 03/21/23 Elisa Romero NP [address] [place] [address] [place] [address] Cardiology 01/31/24 Marcus Murcia DO [address] [place] [address] [place] [address] Specialist Physiatry 03/26/24 documented as of this encounter
--- OUTSIDE RECORDS SUMMARY | 2024-10-08 12:07 | XMS_ITS | Encounter Summary ---
Author Organization [facility] Address [address] [place] [address] Care Team Providers Care Jewel Waxer Name Role Phone Kameron Zuñiga MD Unavailable Katya Lopez NP Unavailable Unavailab Kathy Haley MD Primary Care Prov ider Be Pacheco NP Unavailable [phone] Maycol Infante MD Unavailable Unavailable Sebastian Martinez MD Unavailable UnavailEve Blackmon MD Unavailable Elisa Romero NP Unavailable [phone] Marcus Murcia DO Unavailable Unavailable Encounter Details Date Type Department Care Team Description 09/26/2022 [facility]AN Medical Records [address] [place] [address] Abstract, Provider Social History Tobacco Use Types [...] on filedocumented in this encounter Care Teams Jewel Waxer Relationship Specialty Start Date End Date Kathy Christopher MD [address] [place] [address] PCP - General Internal Medicine 01/21/22 Kameron Zuñiga MD Transport Analyst Cardiovascular Disease 08/04/21 Katya Lopez NP Cardiology 08/04/21 01/30/24 Be Pacheco NP [address] [place] [address] Nurse Practitioner Cardiology 10/17/22 01/30/24 Maycol Infante MD [address] [place] [address] Specialist Pulmonology 10/19/22 Sebastian Martinez MD [address] [place] [address] Specialist Ophthalmology 03/21/23 Eve Juan MD [address] [place] [address] [place] [address] Specialist UROGYNECOLOGY 03/21/23 Elisa Romero NP [address] [place] [address] [place] [address] Cardiology 01/31/24 Marcus Murcia DO [address] [place] [address] [place] [address] Specialist Physiatry 03/26/24 documented as of this encounter
--- OUTSIDE RECORDS SUMMARY | 2024-10-08 12:07 | XMS_ITS | Encounter Summary ---
Author Organization [facility] Address [address] [place] [address] Care Team Providers Care Hair Worker Name Role Phone Wiley Thompson MD Primary Care Provider Kameron Cornejo MD Unavailable Katya Lopez NP Unavailable Unavailab Kathy Haley MD Primary Care Prov ider Be Pacheco NP Unavailable [phone] Maycol Infante MD Unavailable Unavailable Sebastian Martinez MD Unavailable UnavailEve Blackmon MD Unavailable Elisa Romero NP Unavailable Marcus Murcia DO Unavailable Unavailable Encounter Details Date Type Department Care Team Description 07/24/2021 Stamping Die Maker Bench Report Medical Records [address] [place] [id number] Abstract, Provider Social History Tobacco Use Types [...] on filedocumented in this encounter Care Teams Hair Worker Relationship Specialty Start Date End Date Wiley Thompson MD PCP - General Internal Medicine 06/04/14 01/20/22 Kathy Christopher MD [address] [place] [address] PCP - General Internal Medicine 01/21/22 Kameron Zuñiga MD Early Childhood Lead Teacher Cardiovascular Disease 08/04/21 Katya Lopez NP Cardiology 08/04/21 01/30/24 Be Pacheco NP [address] [place] [address] 90[address] Nurse Practitioner Cardiology 10/17/22 01/30/24 Maycol Infante MD [address] [place] [address] Specialist Pulmonology 10/19/22 Sebastian Martinez MD [address] [place] [address]33 Specialist Ophthalmology 03/21/23 Eve Juan MD [address] [place] [address] [place] [address] Specialist UROGYNECOLOGY 03/21/23 Elisa Romero NP [address] [place] [address] [place] [address] Cardiology 01/31/24 Marcus Murcia DO [address] [place] [address] [place] [address] Specialist Physiatry 03/26/24 documented as of this encounter
--- OUTSIDE RECORDS SUMMARY | 2024-10-08 12:07 | XMS_ITS | Encounter Summary ---
Author Organization [facility] Address [address] [place] [address] Care Team Providers Care Bail Agent Name Role Phone Kameron Zuñiga MD Unavailable Kathy Christopher MD Primary Care Prov ider Maycol Infante MD Unavailable Unavailable Sebastian Martinez MD Unavailable UnavailEve Blackmon MD Unavailable Elisa Romero NP Unavailable [phone] Marcus Murcia DO Unavailable Unavailable Encounter Details Date Type Department Care Team Description 04/02/2024 [facility] Medical Records [address] [place] [address] Abstract, Provider Social History Tobacco Use Types [...] on filedocumented in this encounter Care Teams Bail Agent Relationship Specialty Start Date End Date Kathy Christopher MD [address] [place] [address] PCP - General Internal Medicine 01/21/22 Kameron Zuñiga MD Educational Coordinator Cardiovascular Disease 08/04/21 Maycol Infante MD [address] [place] [address]791 Specialist Pulmonology 10/19/22 Sebastian Martinez MD [address] [place], [place] [phone] Specialist Ophthalmology 03/21/23 Eve Juan MD [address] [place] [address] [place] [address] Specialist UROGYNECOLOGY 03/21/23 Elisa Romero NP [address] [place] [address] [place] [address] Cardiology 01/31/24 Marcus Murcia DO [address] [place] [address] [place] [address] Specialist Physiatry 03/26/24 documented as of this encounter
--- OUTSIDE RECORDS SUMMARY | 2024-10-08 12:07 | XMS_ITS | Encounter Summary ---
Author Organization [facility] Address [address] [place] [address] Care Team Providers Care Benefits Specialist Name Role Phone Kameron Zuñiga MD Unavailable Katya Lopez NP Unavailable Unavailab Kathy Haley MD Primary Care Prov ider Be Pacheco NP Unavailable [phone] Maycol Infante MD Unavailable Unavailable Sebastian Martinez MD Unavailable UnavailEve Blackmon MD Unavailable Elisa Romero NP Unavailable [phone] Marcus Murcia DO Unavailable Unavailable Encounter Details Date Type Department Care Team Description 07/08/2023 Telephone Cardio [facility] [address] [place] [address] Kameron Zuñiga MD [address] [place] [address] [phone] Social History Tobacco Use Types Packs/Day Years [...] on filedocumented in this encounter Care Teams Benefits Specialist Relationship Specialty Start Date End Date Kathy Christopher MD [address] [place] [address] PCP - General Internal Medicine 01/21/22 Kameron Zuñiga MD Food Checker Cardiovascular Disease 08/04/21 Katya Lopez NP Cardiology 08/04/21 01/30/24 Be Pacheco NP [address] [place] [address] Nurse Practitioner Cardiology 10/17/22 01/30/24 Maycol Infante MD [address] [place] [address] Specialist Pulmonology 10/19/22 Sebastian Martinez MD [address] [place], [place] [phone] Specialist Ophthalmology 03/21/23 Eve Juan MD [address] [place] [address] [place] [address] Specialist UROGYNECOLOGY 03/21/23 Elisa Romero NP [address] [place] [address] [place] [address] Cardiology 01/31/24 Marcus Murcia DO [address] [place] [address] [place] [address] Specialist Physiatry 03/26/24 documented as of this encounter
--- OUTSIDE RECORDS SUMMARY | 2024-10-08 12:07 | XMS_ITS | Encounter Summary ---
Author Organization [facility] Address [address] [place] [address] Care Team Providers Care Data Management Consultant Name Role Phone Wiley Thompson MD Primary Care Provider Kameron Cornejo MD Unavailable Katya Lopez NP Unavailable Unavailab Kathy Christopher MD Primary Care Prov ider Be Pacheco NP Unavailable [phone] Maycol Infante MD Unavailable Unavailable Sebastian Martinez MD Unavailable UnavailEve Blackmon MD Unavailable Elisa Romero NP Unavailable [phone] Marcus Murcia DO Unavailable Unavailable Encounter Details Date Type Department Care Team Description 09/25/2018 Hospital Medical Records [address] [place] [address] Cory Baptiste MD Social History Tobacco Use [...] on filedocumented in this encounter Care Teams Data Management Consultant Relationship Specialty Start Date End Date Wiley Thompson MD PCP - General Internal Medicine 06/04/14 01/20/22 Kathy Christopher MD [address] [place] [address] PCP - General Internal Medicine 01/21/22 Kameron Zuñiga MD Automation And Controls Manager Cardiovascular Disease 08/04/21 Katya Lopez, IRMA Cardiology 08/04/21 01/30/24 Be Pacheco NP [address] [place] [address] Nurse Practitioner Cardiology 10/17/22 01/30/24 Maycol Infante MD [address] [place] [address] Specialist Pulmonology 10/19/22 Sebastian Martinez MD [address] [place] [address] 23[address] Specialist Ophthalmology 03/21/23 Eve Juan MD [address] [place] [address] [place] [address] Specialist UROGYNECOLOGY 03/21/23 Elisa Romero NP [address] [place] [address] [place] [address] Cardiology 01/31/24 Marcus Murcia DO [address] [place] [address] [place] [address] Specialist Physiatry 03/26/24 documented as of this encounter
--- OUTSIDE RECORDS SUMMARY | 2024-10-08 12:07 | XMS_ITS | Encounter Summary ---
Author Organization [facility] Address [address] [place] [address] Care Team Providers Care Repeat Photocomposing Machine Operator Name Role Phone Wiley Thompson MD Primary Care Provider Kameron Cornejo MD Unavailable Katya Lopez NP Unavailable Unavailab Kathy Haley MD Primary Care Prov ider Be Pacheco NP Unavailable [phone] Maycol Infante MD Unavailable Unavailable Sebastian Martinez MD Unavailable UnavailEve Blackmon MD Unavailable Elisa Romero NP Unavailable [phone] Marcus Murcia DO Unavailable Unavailable Encounter Details Date Type Department Care Team Description 06/04/2014 [facility] Medical Records [address] [place] [address] Abstract, Provider Social History Tobacco Use Types [...] on filedocumented in this encounter Care Teams Repeat Photocomposing Machine Operator Relationship Specialty Start Date End Date Wiley Thompson MD PCP - General Internal Medicine 06/04/14 01/20/22 Kathy Christopher MD [address] [place] [address] PCP - General Internal Medicine 01/21/22 Kameron Zuñiga MD Repair Department Supervisor Cardiovascular Disease 08/04/21 Katya Lopez NP Cardiology 08/04/21 01/30/24 Be Pacheco NP [address] [place] [address] Nurse Practitioner Cardiology 10/17/22 01/30/24 Maycol Infante MD [address] [place] [address] Specialist Pulmonology 10/19/22 Sebastian Martinez MD [address] [place], [place] [phone] Specialist Ophthalmology 03/21/23 Eve Juan MD [address] [place] [address] [place] [address] Specialist UROGYNECOLOGY 03/21/23 Elisa Romero NP [address] [place] [address] [place] [address] Cardiology 01/31/24 Marcus Murcia DO [address] [place] [address] [place] [address] Specialist Physiatry 03/26/24 documented as of this encounter
--- OUTSIDE RECORDS SUMMARY | 2024-10-08 12:07 | XMS_ITS | Encounter Summary ---
Author Organization [facility] Address [address] [place] [address] Care Team Providers Care Carbon Printer Name Role Phone Kameron Zuñiga MD Unavailable Katya Lopez NP Unavailable Unavailab Kathy Haley MD Primary Care Prov ider Be Pacheco NP Unavailable [phone] Maycol Infante MD Unavailable Unavailable Sebastian Martinez MD Unavailable UnavailEve Blackmon MD Unavailable Elisa Romero NP Unavailable [phone] Marcus Murcia DO Unavailable Unavailable Encounter Details Date Type Department Care Team Description 10/19/2022 Dinkey Engine Firer Report Medical Records [address] [place] [address] Tiffanie Reyes Social History Tobacco Use Types [...] filedocumented in this encounter Care Teams Carbon Printer Relationship Specialty Start Date End Date Kathy Christopher MD [address] [place] [address] PCP - General Internal Medicine 01/21/22 Kameron Zuñiga MD Clerk Entry Level Cardiovascular Disease 08/04/21 Katya Lopez NP Cardiology 08/04/21 01/30/24 Be Pacheco NP [address] [place] [address] Nurse Practitioner Cardiology 10/17/22 01/30/24 Maycol Infante MD [address] [place] [address] Specialist Pulmonology 10/19/22 Sebastian Martinez MD [address] [place] [address] Specialist Ophthalmology 03/21/23 Eve Juan MD [address] [place] [address] [place] [address] Specialist UROGYNECOLOGY 03/21/23 Elisa Romero NP [address] [place] [address] [place] [address] Cardiology 01/31/24 Marcus Murcia DO [address] [place] [address] [place] [address] Specialist Physiatry 03/26/24 documented as of this encounter
--- OUTSIDE RECORDS SUMMARY | 2024-10-08 12:07 | XMS_ITS | Encounter Summary ---
Author Organization [facility] Address [address] [place] [address] Care Team Providers Care Cloth Shrinking Supervisor Name Role Phone Wiley Thompson MD Primary Care Provider Kameron Cornejo MD Unavailable Katya Lopez NP Unavailable Unavailab Kathy Haley MD Primary Care Prov ider Be Pacheco NP Unavailable [phone] Maycol Infante MD Unavailable Unavailable Sebastian Martinez MD Unavailable UnavailEve Blackmon MD Unavailable Elisa Romero NP Unavailable [phone] Marcus Murcia DO Unavailable Unavailable Encounter Details Date Type Department Care Team Description 06/18/2020 Orders Only Medical Records [address] [place] [address] Christophe Sharp MD [address] [place], [place] [phone] Social History Tobacco Use Types Packs/Day Years [...] Certified Gastroenterology and Internal Medicine Transplant Hepatology [facility] documented in this encounter Plan of Treatment Not on file documented as of this encounter Procedures Procedure Name Priority Date/Time Associated Diagnosis Comments OUTSIDE PATHOLOGY Routine 06/16/2020 documented in this encounter Results * OUTSIDE PATHOLOGY (06/16/2020) Christophe Sharp MD OUTSIDE LAB documented in this encounter Visit Diagnoses Not on filedocumented in this encounter Care Teams Cloth Shrinking Supervisor Relationship Specialty Start Date End Date Wiley Thompson MD PCP - General Internal Medicine 06/04/14 01/20/22 Kathy Christopher MD [address] [place] [address] PCP - General Internal Medicine 01/21/22 Kameron Zuñiga MD Rap Artist Cardiovascular Disease 08/04/21 Katya Lopez NP Cardiology 08/04/21 01/30/24 Be Pacheco NP [address] [place] [address] [phone] Nurse Practitioner Cardiology 10/17/22 01/30/24 Maycol Infante MD [address] [place], [place] [phone] Specialist Pulmonology 10/19/22 Sebastina Martinez MD [address] [place] [address] Specialist Ophthalmology 03/21/23 Eve Juan MD [address] [place] [address] [place] [address] Specialist UROGYNECOLOGY 03/21/23 Elisa Romero NP [address] [place] [address] [place] [address] Cardiology 01/31/24 Marcus Murcia DO [address] [place] [address] [place] [address] Specialist Physiatry 03/26/24 documented as of this encounter
--- OUTSIDE RECORDS SUMMARY | 2024-10-08 12:07 | XMS_ITS | Encounter Summary ---
Author Organization [facility] Address [address] [place] [address] Care Team Providers Care Folder Inspector Name Role Phone Kathy Perez MD Primary Care Prov ider Reason for Referral * Consultation (Routine) - Closed Specialty Diagnoses / Procedures Referred By Contmariella t Referred To Contact Urology Diagnoses Recurrent UTI (urinary tract infection) Urinary tract infection without hematuria, site unspecified Kathy Perez MD [address] [place] [address] Phone: tel: fax: [facility] [address] Phone: tel: Referral ID Status Reason Start Date Expiration Date V isits Requested Visits Authorized [id number] Closed Specialty Services Required 10/03/2024 10/03/2025 1 1 Encounter Details Date Type Department Care Team (Late st Contact Info) Description 10/03/2024 10:00 AM EDT Office Visit Adult Medicine [address] [address] Kathy Perez MD [address] [place] [address] Recurrent UTI (urinary tract infection) (Primary Dx); Urinary tract infection without hematuria, site unspecified; Encounter for screening involving social determinants of health (SDoH) Social History Tobacco Use Types Packs/Day Years [...] care for your loved ones. For example, children's service worker or elderly care for an older adult? [...] 14 10/03/2024 9:53 AM EDT Oxygen Saturation - - Inhaled Oxygen Concentration - - Weight 84.7 kg (186 lb 12.8 oz) 10/03/2024 9:53 AM EDT Height 162.6 cm (5' 4 ) 10/03/2024 9:53 AM EDT Body Mass Index 32.06 10/03/2024 9:53 AM EDT documented in this encounter Ordered Prescriptions Prescription Sig Dispense Quantity Refills Last Filled Start Date End Date phenazopyridine (PYRIDIUM) 100 mg tablet Take 1 tablet (100 mg total) by mouth 3 (three) times a day if needed for bladder spasms for up to 15 days. 30 tablet 10/03/2024 documented in this encounter Progress Notes * Ronel Kaminski MA - 10/03/2024 10:00 AM EDT Social Influencers of Health Who provided answers?: Self Within the past 12 months we worried whether our food would run out before we got money to buy more.: Never true Within the past 12 months the food we bought just didn't last and we didn't have money to get more.: Never true How hard is it for you to pay for the very basics like food, housing, medical care, and air conditioning / heating?: Not very hard Are you worried that in the next 2 months you may not have stable housing?: No Do you have access to a variety of food including fruits and vegetables?: Yes Has the lack of transportation kept you from meetings, work, or from getting things needed for daily living?: No Has the lack of transportation kept you from medical appointments or from getting medications?: No How often do you feel lonely or isolated from those around you?: Never How often do you need to have someone help you when you read instructions, pamphlets, or other written material from your doctor or pharmacy?: Never * Kathy Perez MD - 10/03/2024 10:00 AM EDT CHIEF COMPLAINT: No chief complaint on file. IDENTIFIER: Shea Ramirez is a 78 y.o. old female. HPI: Patient present today for re-evaluation after emergency room visit for UTI at [facility] on 09/30/2024. Patient with a pmh of DM, CKD, presented to ER for urinary symptoms for 2 weeks, previously seen bynephrology, ordered a cycle with ciprofloxacin with no improvement. On evaluation, UA showed leucocyte esterase, over 50 WBC, traced urine bacteria. A prescription forCeftin was sent to the pharmacy. Pending urine culture. CBC, CMP, UA reviewed by me. Urine culture was negative. Information was extracted from the emergency room [place] from [facility]. The history was reviewed for accuracy and confirmed by myself. I have reconciled the current and discharge meds. Comes today for a follow up, states she does not feel better, still with burning sensation with urination, urine is cloudy, with increased urinary frequency. No fever or chills. She was supposed to see urology at [facility] at the beginning of the month, but she canceled the appt. PAST MEDICAL HISTORY: Patient Active Problem List Diagnosis Date Noted Osteoarthritis 04/23/2024 Class 1 obesity due to excess calories with serious comorbidity and body mass index (BMI) of 32.0 to 32.9 in adult 04/23/2024 Mucopurulent chronic bronchitis [place] [place], [facility] V28) 05/24/2023 Palpitations 05/24/2023 Chronic heart failure with preserved ejection fraction ([facility] [place], [facility] [place]28[place] 11/24/2022 Chest pain 11/18/2022 CHF (congestive heart failure) ([facility] [place], [facility] [place]28) 11/18/2022 Hypertensive retinopathy 11/10/2021 SOTELO (dyspnea on exertion) 09/27/2021 Tachycardia 09/27/2021 Syncope 09/22/2021 Osteopenia 06/26/2021 Anemia 05/07/2020 Asymptomatic stenosis of intracranial artery 05/07/2020 Stenosis of left vertebral artery 05/07/2020 Osteoarthritis of both shoulders 12/26/2019 Type 2 diabetes mellitus with stage 3 chronic kidney disease, without long-term current use of insulin ([facility] [place], [facility] [place] V28) 11/04/2019 Mammographic microcalcification 01/10/2019 Hearing decreased, bilateral 12/18/2018 COPD (chronic obstructive pulmonary disease) ([facility] [place], [facility] [place] V28) 12/10/2018 Supplemental oxygen dependent 12/10/2018 Obstructive sleep apnea 11/21/2018 Subclinical hyperthyroidism 05/09/2018 Peripheral edema 05/03/2018 Chronic shoulder pain 05/31/2017 CKD (chronic kidney disease) stage 3, GFR 30-59 ml/min ([facility] [place], [facility] [place]28) 05/31/2017 Iron deficiency anemia due to chronic blood loss 08/18/2016 IBS (irritable bowel syndrome) 03/25/2016 Recurrent HSV (herpes simplex virus) 12/11/2015 Diabetes mellitus type 2 with neurological manifestations ([facility] [place], [facility] [place] V28) 08/01/2015 Diverticulosis 05/20/2015 Tubular adenoma of colon 05/20/2015 Coronary artery disease involving [place] coronary artery of [place]ie heart without angina pectoris 01/21/2015 Hyperlipidemia 07/18/2014 Solitary pulmonary nodule 11/08/2013 Anxiety 06/18/2013 Allergic rhinitis 07/17/2012 Asthma 07/17/2012 Gastroparesis 07/17/2012 GERD (gastroesophageal reflux disease) 07/17/2012 Insomnia 07/17/2012 Primary hypertension 07/17/2012 SOCIAL HISTORY: Social History Tobacco Use Smoking status: Former Current packs/day: 0.00 Average packs/day: 2.0 packs/day for 30.8 years (61.6 ttl pk-yrs) Types: Cigarettes Start date: 1959 Quit date: 07/17/1989 Years since quittin.2 Smokeless tobacco: Never Substance Use Topics Alcohol use: No FAMILY HISTORY: Family History Problem Relation Name Age of Onset Other (Other: cardiomegaly) Mother ASTHMA, CHF Family Status Relation Name Status Mother Father No partnership data on file MEDICATIONS DISCONTINUED/REORDERED: There are no discontinued medications. ACTIVE MEDICATIONS: Outpatient Medications Marked as Taking for the 10/03/24 encounter (Office Visit) with Kathy Perez MD Medication Sig Dispense Refill albuterol 2.5 mg /3 mL (0.083 %) nebulizer solution TAKE 1 VIAL BY NEBULIZATION EVERY 4 HOURS NEEDED FOR WHEEZING 75 mL 1 albuterol HFA (PROAIR HFA ; PROVENTIL HFA ; VENTOLIN HFA) 90 mcg/actuation inhaler Inhale 2 puffs by mouth every 4 (four) hours if needed (Cough, Wheezing or Shortness of Breath). ASPIRIN ORAL Take 81 mg by mouth 1 (one) time each day. atorvastatin (LIPITOR) 80 mg tablet Take 1 tablet (80 mg total) by mouth 1 (one) time each day. 90 tablet 3 azelastine (ASTELIN) 137 mcg (0.1 %) nasal spray Administer 2 sprays into each nostril 2 (two) times a day. Use in each nostril as directed cefuroxime (CEFTIN) 250 mg tablet Take 1 tablet (250 mg total) by mouth 2 (two) times a day. for 7 days cetirizine (ZyrTEC) 10 mg tablet TAKE 1 TABLET BY MOUTH EVERY DAY 90 tablet 1 cholecalciferol (VITAMIN D-3) 50 mcg (2,000 unit) capsule Take 1 capsule (2,000 Units total) by mouth 1 (one) time each day. dexlansoprazole (DEXILANT) [address] capsule TAKE 1 CAPSULE BY MOUTH EVERY DAY 90 capsule 3 diclofenac (VOLTAREN) 1 % topical gel Apply 2 g topically if needed (PAIN). estradioL (ESTRACE) 0.01 % (0.1 mg/gram) vaginal cream Insert into the vagina at bedtime. Apply a pea-sized amount of cream with your finger into the vagina daily at bedtime for 2 weeks, then two times a week at night. fluticasone propionate (FLONASE) 50 mcg/actuation nasal spray Administer 2 sprays into each nostril1 (one) time each day. Shake gently. Before first use, prime pump. After use, clean tip and replacecap. iagcdcdtpeb-rssebpnqwlia-wexnkzhatp (Trelegy Ellipta) 100-62.5-25 mcg inhaler Inhale by [...] MOUTH EVERY DAY WITH BREAKFAST 90tablet 1 methocarbamoL (ROBAXIN) 500 mg tablet Take 1 [...] NO RELIEF CALL 911 90 tablet 3 Oxygen Therapy (O2) gas Administer 2-3 L into affected nostril(s) at bedtime. [employer] plecanatide (Trulance) 3 mg tablet Take 1 tablet (3 mg total) by mouth 1 (one) time each day. predniSONE (DELTASONE) 10 mg tablet Take 1 tablet (10 mg total) by mouth 1 (one) time each day. 40 mg for 3 days. 30 mg for 3 days. 20 mg for 3 days. 10 mg for 3 days. Then discontinue. valACYclovir (VALTREX) 1 gram tablet TAKE 2 TABLETS BY MOUTH 2 TIMES DAILY. (SEPARATE DOSES BY ~12 HOURS). USE FOR 1 DAY WITH EACH FLARE 12 tablet 0 ALLERGIES: Amoxicillin-pot clavulanate PHYSICAL EXAM: Blood pressure 114/73, pulse 100, temperature 36 ??C (96.8 ??F), temperature source Temporal, resp.rate 14, height 1.626 m (64 ), weight 84.7 kg (186 lb 12.8 oz). Body mass index is 32.06 kg/m??. BMI is greater than 25.0 (above the normal range) - see Plan APPEARANCE: Alert and in no acute distress HEART: RRR with normal S1 and S2, no murmurs, no gallops, no JVD appreciated LUNG: clear to auscultation bilaterally NEURO: Awake, alert and oriented x 3 and reflexes symmetrical SKIN: Skin color, texture, turgor normal. No rashes or lesions. LABS: Lab Results Component Value Date WBC 9.0 09/23/2024 HGB 11.0 (L) 09/23/2024 HCT 33.8 (L) 09/23/2024 MCV 92.6 09/23/2024 PLT 260 09/23/2024 Lab Results Component Value Date NA 144 09/23/2024 K 4.0 09/23/2024 CL 109 09/23/2024 CO2 31 09/23/2024 GLUCOSE 119 (H) 09/23/2024 BUN 15 09/23/2024 CREATININE 1.04 09/23/2024 CALCIUM 9.3 09/23/2024 PROT 6.4 09/23/2024 PROT 6.4 09/23/2024 ALBUMIN 3.4 09/23/2024 PHOS 3.9 09/23/2024 MG 1.6 (L) 09/23/2024 EGFR 55 (L) 09/23/2024 IMPRESSION: 1. Recurrent UTI (urinary tract infection) 2. Urinary tract infection without hematuria, site unspecified 3. Encounter for screening involving social determinants of health (SDoH) PLAN: Patient with recurrent UTIs. Currently on the 2nd cycle of antibiotic. Urine culture was negative (she was completing her 1sr round of ab). Persistent symptoms. Will send a prescription for phenazopyridine, she is also recommended to hold and reschedule appointment with urology. Continue the antibiotic as prescribed. Social screening as per JACQUES. Negative All questions and concerns were addressed. Patient verbalizes understanding and agrees with above treatment plan. Patient was advised to contact the office with any worsening symptoms or if new or existing problems arise. I have applied the code G2211 to this patient???s visit as the primary care provider dealing with (recurrent UTI) leading to the extensive work up, and management associated with the medical care of this patient. This patient???s serious conditions and complex medical conditions also required several consultants needing management and coordination through my office. I have reviewed all information as it pertains to the management of this patient for final approval. I spent 45 minutes for this encounter reviewing hospitalization notes, images, and tests done during the admission. Assessing complains, physical exam, discussing options with the patient, decision making, treatment plan. Medication and lab orders: Orders Placed This Encounter Procedures Ambulatory referral to Urology Other orders: AMB REFERRAL TO UROLOGY Kathy Rizo MD on 10/03/2024 at 5:18 PM EDT documented in this encounter Plan of Treatment Upcoming Encounters Date Type Department Care Team (Late st Contact Info) Description 01/28/2025 1:15 PM EDT Office Visit [address] [phone] Kathy Perez MD [address] [place] [address] Scheduled Referrals Name Type Priority Associated Diagnoses Order Schedule Ambulatory referral to Urology Outpatient Referral Routine Recurrent UTI (urinary tract infection) Urinary tract infection without hematuria, site unspecified 1 Occurrences starting 10/03/2024 until 10/03/2025 documented as of this encounter Visit Diagnoses Diagnosis Recurrent UTI (urinary tract infection)- Primary Urinary tract infection without hematuria, site unspecified Encounter for screening involving social determinants of health (SDoH) documented in this encounter Historical Medications * This list may reflect changes made after this encounter. cefuroxime (CEFTIN) 250 mg tablet Take 1 tablet (250 mg total) by mouth 2 (two) times a day. for 7 days 09/30/2024 added in this encounter Care Teams Folder Inspector Relationship Specialty Start Date End Date Kathy Perez MD [address] [place] [address] PCP - General Internal Medicine 07/22/24 documented as of this encounter
--- OUTSIDE RECORDS SUMMARY | 2024-10-08 12:07 | XMS_ITS | Encounter Summary ---
Author Organization [facility] Address [address] [place] [address] Care Team Providers Care Turner Splitter Machine Operator Name Role Phone Wiley Thompson MD Primary Care Provider Kameron Cornejo MD Unavailable Katya Lopez NP Unavailable Unavailab Kathy Haley MD Primary Care Prov ider Be Pacheco NP Unavailable [phone] Maycol Infnate MD Unavailable Unavailable Sebastian Martinez MD Unavailable UnavailEve Blackmon MD Unavailable Elisa Romero NP Unavailable [phone] Marcus Murcia DO Unavailable Unavailable Encounter Details Date Type Department Care Team Description 03/17/2020 Fractionation Supervisor Report Medical Records [address] [place] [address] Kameron Zuñiga MD [address] [place] [address] [id number] Social History Tobacco Use Types Packs/Day Years [...] on filedocumented in this encounter Care Teams Turner Splitter Machine Operator Relationship Specialty Start Date End Date Wiley Thompson MD PCP - General Internal Medicine 06/04/14 01/20/22 Trina Rizo, Kathy Fried MD [address] [place] [address] PCP - General Internal Medicine 01/21/22 Kameron Zuñiga MD Cognos Analyst Cardiovascular Disease 08/04/21 Katya Lopez NP Cardiology 08/04/21 01/30/24 Be Pacheco NP [address] [place] [address] Nurse Practitioner Cardiology 10/17/22 01/30/24 Maycol Infante MD [address] [place] [address] Specialist Pulmonology 10/19/22 Sebastian Martinez MD [address] [place] [address] Specialist Ophthalmology 03/21/23 Eve Juan MD [address] [place] [address] [place] [address] Specialist UROGYNECOLOGY 03/21/23 Elisa Romero NP [address] [place] [address] [place] [address] Cardiology 01/31/24 Marcus Murcia DO [address] [place] [address] [place] [address] Specialist Physiatry 03/26/24 documented as of this encounter
--- OUTSIDE RECORDS SUMMARY | 2024-10-08 12:07 | XMS_ITS | Encounter Summary ---
Author Organization [facility] Address [address] [place] [address] Care Team Providers Care Speeder Tender Name Role Phone Kameron Zuñiga MD Unavailable Katya Lopez NP Unavailable Unavailab Kathy Haley MD Primary Care Prov ider Be Pacheco NP Unavailable [phone] Maycol Infante MD Unavailable Unavailable Sebastian Martinez MD Unavailable UnavailEve Blackmon MD Unavailable Elisa Romero NP Unavailable [phone] Marcus Murcia DO Unavailable Unavailable Encounter Details Date Type Department Care Team Description 08/11/2022 Carroter Report Medical Records [address] [place] [address] Maycol Infante MD Social History Tobacco Use [...] on filedocumented in this encounter Care Teams Speeder Tender Relationship Specialty Start Date End Date Kathy Christopher MD [address] [place] [address] PCP - General Internal Medicine 01/21/22 Kameron Zuñiga MD Supervisor [employer] Cardiovascular Disease 08/04/21 Katya Lopez NP Cardiology 08/04/21 01/30/24 Be Pacheco NP [address] [place] [address] Nurse Practitioner Cardiology 10/17/22 01/30/24 Maycol Infante MD [address] [place] [address] Specialist Pulmonology 10/19/22 Sebastian Martinez MD [address] [place] [address] Specialist Ophthalmology 03/21/23 Eve Juan MD [address] [place] [address] [place] [address] Specialist UROGYNECOLOGY 03/21/23 Elisa Romero NP [address] [place] [address] [place] [address] Cardiology 01/31/24 Marcus Murcia DO [address] [place] [address] [place] [address] Specialist Physiatry 03/26/24 documented as of this encounter
--- OUTSIDE RECORDS SUMMARY | 2024-10-08 12:07 | XMS_ITS | Encounter Summary ---
Author Organization [facility] Address [address] [place] [address] Care Team Providers Care Hadoop Infrastructure Architect Name Role Phone Wiley Thompson MD Primary Care Provider Kameron Cornejo MD Unavailable Katya Lopez NP Unavailable Unavailab Kathy Haley MD Primary Care Prov ider Be Pacheco NP Unavailable Maycol Infante MD Unavailable Unavailable Sebastian Martinez MD Unavailable UnavailEve Blackmon MD Unavailable Elisa Romero NP Unavailable [phone] Marcus Murcia DO Unavailable Unavailable Reason for Referral * Non CARIN (Routine) - Authorized/Booked Specialty Diagnoses / Procedures Referred By Contac t Referred To Contact Oncology/Hematology Procedures REFERRAL TO ONCOLOGY/HEMATOLOGY Lamine Rose MD [address] [place] [address] Onc/[place] [address] [place] [id number] Referral ID Status Reason Start Date Expiration Date V isits Requested Visits Authorized [id number] Authorized/B ooked 12/11/2015 12/10/2016 1 1 Encounter Details Date Type Department Care Team Description 12/11/2015 Orders Only Gastroenterology - [place] [address] [place] [address] Lamine Rose MD Iron deficiency anemia due [...] (chronic) documented in this encounter Care Teams Hadoop Infrastructure Architect Relationship Specialty Start Date End Date Wiley Thompson MD PCP - General Internal Medicine 06/04/14 01/20/22 Kathy Christopher MD [address] [place] [address] PCP - General Internal Medicine 01/21/22 Kameron Zuñiga MD Heater Furnace Cardiovascular Disease 08/04/21 Katya Lopez NP Cardiology 08/04/21 01/30/24 Be Pacheco NP [address] [place] [address] Nurse Practitioner Cardiology 10/17/22 01/30/24 Maycol Infante MD [address] [place] [address] Specialist Pulmonology 10/19/22 Sebastian Martinez MD [address] [place] [address] Specialist Ophthalmology 03/21/23 Eve Juan MD [address] [place] [address] [place] [address] Specialist UROGYNECOLOGY 03/21/23 Elisa Romero NP [address] [place] [address] [place] [address] Cardiology 01/31/24 Marcus Murcia DO [address] [facility] [place] [address] Specialist Physiatry 03/26/24 documented as of this encounter
--- OUTSIDE RECORDS SUMMARY | 2024-10-08 12:07 | XMS_ITS | Encounter Summary ---
Author Organization [facility] Address [address] [place] [address] Care Team Providers Care Linen Folder Name Role Phone Kameron Zuñiga MD Unavailable Kathy Christopher MD Primary Care Prov ider Maycol Infante MD Unavailable Unavailable Sebastian Martinez MD Unavailable UnavailEve Blackmon MD Unavailable Elisa Romero NP Unavailable [phone] Marcus Murcia DO Unavailable Unavailable Encounter Details Date Type Department Care Team Description 03/12/2024 [facility] [place] Report Medical Records [address] [place] [address] Maycol Infante MD Social History Tobacco Use [...] on filedocumented in this encounter Care Teams Linen Folder Relationship Specialty Start Date End Date Kathy Christopher MD [address] [place] [address] PCP - General Internal Medicine 01/21/22 Kameron Zuñiga MD Manager Cardiac Cath Cardiovascular Disease 08/04/21 Maycol Infante MD [address] [place] [address] Specialist Pulmonology 10/19/22 Sebastian Martinez MD [address] [place], [place] [phone] Specialist Ophthalmology 03/21/23 Eve Juan MD [address] [place] [address] [place] [address] Specialist UROGYNECOLOGY 03/21/23 Elisa Romero NP [address] [place] [address] [place] [address] Cardiology 01/31/24 Marcus Murcia DO [address] [place] [address] [place] [address] Specialist Physiatry 03/26/24 documented as of this encounter
--- OUTSIDE RECORDS SUMMARY | 2024-10-08 12:07 | XMS_ITS | Encounter Summary ---
Author Organization [facility] Address [address] [place] [address] Care Team Providers Care Health Promotion Specialist Name Role Phone Kameron Zuñiga MD Unavailable Katya Lopez NP Unavailable Unavailab le Kathy Christopher MD Primary Care Prov ider Be Pacheco NP Unavailable [phone] Maycol Infante MD Unavailable Unavailable Sebastian Martinez MD Unavailable UnavailEve Blackmon MD Unavailable Elisa Romero NP Unavailable [phone] Marcus Murcia DO Unavailable Unavailable Encounter Details Date Type Department Care Team Description 09/26/2022 Hospital Medical Records [address] [place] [address] Social History Tobacco Use Types Packs/Day Years [...] filedocumented in this encounter Care Teams Health Promotion Specialist Relationship Specialty Start Date End Date Kathy Christopher MD [address] [place] [address] PCP - General Internal Medicine 01/21/22 Kameron Zuñiga MD Professor Of Communication Cardiovascular Disease 08/04/21 Katya Lopez NP Cardiology 08/04/21 01/30/24 Be Pacheco NP [address] [place] [address] Nurse Practitioner Cardiology 10/17/22 01/30/24 Maycol Infante MD [address] [place] [address] Specialist Pulmonology 10/19/22 Sebastian Martinez MD [address] [place] [address] Specialist Ophthalmology 03/21/23 Eve Juan MD [address] [place] [address] [place] [address] Specialist UROGYNECOLOGY 03/21/23 Elisa Romero NP [address] [place] [address] [place] [address] Cardiology 01/31/24 Marcus Mucria DO [address] [place] [address] [place] [address] Specialist Physiatry 03/26/24 documented as of this encounter
--- OUTSIDE RECORDS SUMMARY | 2024-10-08 12:07 | XMS_ITS | Encounter Summary ---
Author Organization [facility] Address [address] [place] [address] Care Team Providers Care Winding Department Supervisor Name Role Phone Kameron Zuñiga MD Unavailable Katya Lopez NP Unavailable Unavailab Kathy Haley MD Primary Care Prov ider Be Pacheco NP Unavailable [phone] Maycol Infante MD Unavailable Unavailable Sebastian Martinez MD Unavailable UnavailEve Blackmon MD Unavailable Elisa Romero NP Unavailable [phone] Marcus Murcia DO Unavailable Unavailable Encounter Details Date Type Department Care Team Description 07/15/2022 Polymerization Engineer Report Medical Records [address] [place] [address] Maycol Infante MD Social History Tobacco Use [...] on filedocumented in this encounter Care Teams Winding Department Supervisor Relationship Specialty Start Date End Date Kathy Christopher MD [address] [place] [address] PCP - General Internal Medicine 01/21/22 Kameron Zuñiga MD Locomotive Observer Cardiovascular Disease 08/04/21 Katya Lopez NP Cardiology 08/04/21 01/30/24 Be Pacheco NP [address] [place] [address] 42313 Nurse Practitioner Cardiology 10/17/22 01/30/24 Maycol Infante MD [address] [place] [address] 54098 Specialist Pulmonology 10/19/22 Sebastian Martinez MD [address] [place] [address] 15107 Specialist Ophthalmology 03/21/23 Eve Juan MD [address] [place] [address] [place] [address] Specialist UROGYNECOLOGY 03/21/23 Elisa Romero NP [address] [place] [address] [place] [address] Cardiology 01/31/24 Marcus Murcia DO [address] [place] [address] [place] [address] Specialist Physiatry 03/26/24 documented as of this encounter
--- OUTSIDE RECORDS SUMMARY | 2024-10-08 12:07 | XMS_ITS | Encounter Summary ---
Author Organization [facility] Address [address] [place] [address] Care Team Providers Care Corporate Learning Consultant Name Role Phone Wiley Thompson MD Primary Care Provider Kameron Cornejo MD Unavailable Katya Lopez TOBACCO SAMPLE PULLER Unavailable Unavailab Kathy Haley MD Primary Care Prov ider Be Pacheco TOBACCO SAMPLE PULLER Unavailable [phone] Maycol Infante MD Unavailable Unavailable Sebastian Martinez MD Unavailable UnavailEve Blackmon MD Unavailable Elisa Romero NP Unavailable Marcus Murcia DO Unavailable Unavailable Encounter Details Date Type Department Care Team Description 02/07/2018 Sales And Catering Coordinator Report Medical Records [address] [place] [address] Asya Waller, IRMA Social History Tobacco Use [...] filedocumented in this encounter Care Teams Corporate Learning Consultant Relationship Specialty Start Date End Date Wiley Thompson MD PCP - General Internal Medicine 06/04/14 01/20/22 Kathy Christopher MD [address] [place] [address] PCP - General Internal Medicine 01/21/22 Kameron Zuñiga MD Composition Floor Layer Cardiovascular Disease 08/04/21 Katya Lopez, IRMA Cardiology 08/04/21 01/30/24 Be Pacheco NP [address] [place] [address] Nurse Practitioner Cardiology 10/17/22 01/30/24 Maycol Infante MD [address] [place] [address] Specialist Pulmonology 10/19/22 Sebastian Martinez MD [address] [place] [address]76 Specialist Ophthalmology 03/21/23 Eve Juan MD [address] [place] [address] [place] [address] Specialist UROGYNECOLOGY 03/21/23 Elisa Romero NP [address] [place] [address] [place] [address] Cardiology 01/31/24 Marcus Murcia DO [address] [place] [address] [place] [address] Specialist Physiatry 03/26/24 documented as of this encounter
--- OUTSIDE RECORDS SUMMARY | 2024-10-08 12:08 | XMS_ITS | Encounter Summary ---
Author Organization [facility] Address [address] [place] [address] Care Team Providers Care Armored Cable Machine Operator Name Role Phone Kameron Zuñiga MD Unavailable Katya Lopez NP Unavailable Unavailab Kathy Haley MD Primary Care Prov ider Be Pacheco NP Unavailable [phone] Maycol Infante MD Unavailable Unavailable Sebastian Martinez MD Unavailable UnavailEve Blackmon MD Unavailable Elisa Romero NP Unavailable [phone] Marcus Murcia DO Unavailable Unavailable Encounter Details Date Type Department Care Team Description 10/21/2022 SCAN Medical Records [address] [place] [address] Abstract, Provider Social History Tobacco Use Types [...] on filedocumented in this encounter Care Teams Armored Cable Machine Operator Relationship Specialty Start Date End Date Kathy Christopher MD [address] [place] [address] PCP - General Internal Medicine 01/21/22 Kameron Zuñiga MD Failure Analysis Engineer Cardiovascular Disease 08/04/21 Katya Lopez NP Cardiology 08/04/21 01/30/24 Be Pacheco NP [address] [place] [address]19 Nurse Practitioner Cardiology 10/17/22 01/30/24 Maycol Infante MD [address] [place] [address]61 Specialist Pulmonology 10/19/22 Sebastian Martinez MD [address] [place] [address] 69548 Specialist Ophthalmology 03/21/23 Eve Juan MD [address] [place] [address] [place] [address] Specialist UROGYNECOLOGY 03/21/23 Elisa Romero NP [address] [place] [address] [place] [address] Cardiology 01/31/24 Marcus Murcia DO [address] [place] [address] [place] [address] Specialist Physiatry 03/26/24 documented as of this encounter
--- OUTSIDE RECORDS SUMMARY | 2024-10-08 12:08 | XMS_ITS | Encounter Summary ---
Author Organization [facility] Address [address] [place] [address] Care Team Providers Care Physician Assistant Psychiatry Name Role Phone Kameron Zuñiga MD Unavailable Katya Lopez NP Unavailable Unavailab Kathy Haley MD Primary Care Prov ider Be Pacheco NP Unavailable [phone] Maycol Infante MD Unavailable Unavailable Sebastian Martinez MD Unavailable UnavailEve Blackmon MD Unavailable Elisa Romero NP Unavailable [phone] Marcus Murcia DO Unavailable Unavailable Encounter Details Date Type Department Care Team Description 04/07/2023 Orders Only Medical Records [address] [place] [address] [facility] Social History Tobacco Use Types Packs/Day [...] this encounter Results * OUTSIDE CT (03/30/2023) [facility] RADIOLOGY documented in this encounter Visit Diagnoses Not on filedocumented in this encounter Care Teams Physician Assistant Psychiatry Relationship Specialty Start Date End Date Kathy Christopher MD [address] [place] [address] 60935 PCP - General Internal Medicine 01/21/22 Kameron Zuñiga MD Waste Paper Hammermill Operator Cardiovascular Disease 08/04/21 Katya Lopez NP Cardiology 08/04/21 01/30/24 Be Pacheco NP [address] [place] [address]23 Nurse Practitioner Cardiology 10/17/22 01/30/24 Maycol Infante MD [address] [place] [address] 54748 Specialist Pulmonology 10/19/22 Sebastian Martinez MD [address] [place] [address]41 Specialist Ophthalmology 03/21/23 Eve Juan MD [address] [place] [address] [place] [address] Specialist UROGYNECOLOGY 03/21/23 Elisa Romero NP [address] [place] [address] [place] [address] Cardiology 01/31/24 Marcus Murcia DO [address] [place] [address] [place] [address] Specialist Physiatry 03/26/24 documented as of this encounter
--- OUTSIDE RECORDS SUMMARY | 2024-10-08 12:08 | XMS_ITS | Encounter Summary ---
Author Organization [facility] Address [address] [place] [address] Care Team Providers Care Adjunct Mathematics Instructor Name Role Phone Kameron Zuñiga MD Unavailable Katya Lopez NP Unavailable Unavailab Kathy Haley MD Primary Care Prov ider Be Pacheco NP Unavailable [phone] Maycol Infante MD Unavailable Unavailable Sebastian Martinez MD Unavailable UnavailEve Blackmon MD Unavailable Elisa Romero NP Unavailable [phone] Marcus Murcia DO Unavailable Unavailable Encounter Details Date Type Department Care Team Description 05/09/2023 Matching Machine Operator Report Medical Records [address] [place] [address] Lalitha Diego, [facility]- Social History Tobacco Use Types Packs/Day [...] on filedocumented in this encounter Care Teams Adjunct Mathematics Instructor Relationship Specialty Start Date End Date Kathy Christopher MD [address] [place] [address]69 PCP - General Internal Medicine 01/21/22 Kameron Zuñiga MD Scada Engineer Cardiovascular Disease 08/04/21 Katya Lopez NP Cardiology 08/04/21 01/30/24 Be Pacheco NP [address] [place] [address] 63162 Nurse Practitioner Cardiology 10/17/22 01/30/24 Maycol Infante MD [address] [place] [address]99 Specialist Pulmonology 10/19/22 Sebastian Martinez MD [address] [place] [address] 79660 Specialist Ophthalmology 03/21/23 Eve Juan MD [address] [place] [address] [place] [address] Specialist UROGYNECOLOGY 03/21/23 Elisa Romero NP [address] [place] [address] [place] [address] Cardiology 01/31/24 Marcus Murcia DO [address] [place] [address] [place] [address] Specialist Physiatry 03/26/24 documented as of this encounter
--- OUTSIDE RECORDS SUMMARY | 2024-10-08 12:08 | XMS_ITS | Clinical Summary ---
Author Organization [facility] Address [address] [place] [address] Care Team Providers Care Product Management Specialist Name Role Phone Kathy Christopher MD Primary [...] Health Maintenance Due Date Last Done Comments Depression Screening 1956 BMI Counseling 1962 Preventative [...] age to complete this topic Care Teams Product Management Specialist Relationship Specialty Start Date End Date Kathy Christopher MD [address] [place] [address] PCP - General Internal Medicine 09/14/23
--- OUTSIDE RECORDS SUMMARY | 2024-10-08 12:08 | XMS_ITS | Encounter Summary ---
Author Organization [facility] Address [address] [place] [address] Care Team Providers Care Chief Knowledge Officer Name Role Phone Kameron Zuñiga MD Unavailable Ktaya Lopez NP Unavailable Unavailab le Kathy Christopher MD Primary Care Prov ider Be Pacheco NP Unavailable [phone] Maycol Infante MD Unavailable Unavailable Sebastian Martinez MD Unavailable UnavailEve Blackmon MD Unavailable Elisa Romero NP Unavailable [phone] Marcus Murcia DO Unavailable Unavailable Encounter Details Date Type Department Care Team Description 06/07/2023 Farm Tractor Operator Report Medical Records [address] [place] [address] Lalitha Diego, [facility]- Social History Tobacco Use Types Packs/Day [...] filedocumented in this encounter Care Teams Chief Knowledge Officer Relationship Specialty Start Date End Date Kathy Christopher MD [address] [place] [address] [id number] PCP - General Internal Medicine 01/21/22 Kameron Zuñiga MD Slip Filler Cardiovascular Disease 08/04/21 Katya Lopez, IRMA Cardiology 08/04/21 01/30/24 Be Pacheco NP [address] [place] [address] 30477 Nurse Practitioner Cardiology 10/17/22 01/30/24 Maycol Infante MD [address] [place] [address] 81063 Specialist Pulmonology 10/19/22 Sebastian Martinez MD [address] [place] [address] Specialist Ophthalmology 03/21/23 Eve Juan MD [address] [place] [address] [place] [address] Specialist UROGYNECOLOGY 03/21/23 Elisa Romero NP [address] [place] [address] [place] [address] Cardiology 01/31/24 Marcus Murcia DO [address] [place] [address] [place] [address] Specialist Physiatry 03/26/24 documented as of this encounter
--- OUTSIDE RECORDS SUMMARY | 2024-10-08 12:08 | XMS_ITS | Encounter Summary ---
Author Organization [facility] Address [address] [place] [address] Care Team Providers Care Adjunct Faculty For Medical Terminology Name Role Phone Wiley Thompson MD Primary Care Provider Kameron Cornejo MD Unavailable Katya Lopez NP Unavailable Unavailab Kathy Haley MD Primary Care Prov ider Be Pacheco NP Unavailable [phone] Maycol Infante MD Unavailable Unavailable Sebastian Martinez MD Unavailable UnavailEve Blackmon MD Unavailable Elisa Romero NP Unavailable [phone] Marcus Murcia DO Unavailable Unavailable Reason for Referral * Specialist (Routine) - Closed Specialty Diagnoses / Procedures Referred By Contac t Referred To Contact Cardiology / Cardiac rehabilitation Procedures REFERRAL TO CARDIAC REHABILITATION Wiley Thompson MD [address] [place] [address] External Cardiac Rehab Referral ID Status Reason Start Date Expiration Date V isits Requested Visits Authorized DUPLICATE REQUEST Closed 10/21/2014 10/21/2015 1 1 Reason for Visit * Reason Onset Date Comments Provider Call Back 10/21/2014 Encounter Details Date Type Department Care Team Description 10/21/2014 Telephone Adult [address] [phone] Wiley Thompson MD Provider Call Back Social [...] - 10/21/2014 3:03 PM EDT Harvey from [facility] is looking for a p/a [...] filedocumented in this encounter Care Teams Adjunct Faculty For Medical Terminology Relationship Specialty Start Date End Date Wiley Thompson MD PCP - General Internal Medicine 06/04/14 01/20/22 Kathy Christopher MD [address] [place] [address]62 PCP - General Internal Medicine 01/21/22 Kameron Zuñiga MD Official Court Reporter Cardiovascular Disease 08/04/21 Katya Lopez NP Cardiology 08/04/21 01/30/24 Be Pacheco NP [address] [place] [address] 25026 Nurse Practitioner Cardiology 10/17/22 01/30/24 Maycol Infante MD [address] [place] [address] 71853 Specialist Pulmonology 10/19/22 Sebastian Martinez MD [address] [place], [place] [address] Specialist Ophthalmology 03/21/23 Eve Juan MD [address] [place] [address] [place] [address] Specialist UROGYNECOLOGY 03/21/23 Elisa Romero NP [address] [place] [address] [place] [address] Cardiology 01/31/24 Marcus Murcia DO [address] [place] [address] [place] [address] Specialist Physiatry 03/26/24 documented as of this encounter
--- OUTSIDE RECORDS SUMMARY | 2024-10-08 12:08 | XMS_ITS | Encounter Summary ---
Author Organization [facility] Address [address] [place] [address] Care Team Providers Care Operating Engineer Name Role Phone Kameron Zuñiga MD Unavailable Katya Lopez NP Unavailable Unavailab Kathy Haley MD Primary Care Prov ider Be Pacheco NP Unavailable [phone] Maycol Infante MD Unavailable Unavailable Sebastian Martinez MD Unavailable UnavailEve Blackmon MD Unavailable Elisa Romero NP Unavailable [phone] Marcus Murcia DO Unavailable Unavailable Encounter Details Date Type Department Care Team Description 10/25/2022 SCAN Medical Records [address] [place] [address]97 Abstract, Provider Social History Tobacco Use Types [...] on filedocumented in this encounter Care Teams Operating Engineer Relationship Specialty Start Date End Date Kathy Christopher MD [address] [place] [address] PCP - General Internal Medicine 01/21/22 Kameron Zuñiga MD Slasher Tender Helper Cardiovascular Disease 08/04/21 Katya Lopez NP Cardiology 08/04/21 01/30/24 Be Pacheco NP [address] [place] [address] 79408 Nurse Practitioner Cardiology 10/17/22 01/30/24 Maycol Infante MD [address] [place] [address] 44034 Specialist Pulmonology 10/19/22 Sebastian Martinez MD [address] [place], [place] [address] Specialist Ophthalmology 03/21/23 Eve Juan MD [address] [place] [address] [place] [address] Specialist UROGYNECOLOGY 03/21/23 Elisa Romero NP [address] [place] [address] [place] [address] Cardiology 01/31/24 Marcus Murcia DO [address] [place] [address] [place] [address] Specialist Physiatry 03/26/24 documented as of this encounter
--- OUTSIDE RECORDS SUMMARY | 2024-10-08 12:08 | XMS_ITS | Encounter Summary ---
Author Organization [facility] Address [address] [place] [address] Care Team Providers Care Grocery Bagger Name Role Phone Kameron Zuñiga MD Unavailable Katya Lopez NP Unavailable Unavailab Kathy Haley MD Primary Care Prov ider Be Pacheco NP Unavailable [phone] Maycol Infante MD Unavailable Unavailable Sebastian Martinez MD Unavailable UnavailEve Blackmon MD Unavailable Elisa Romero NP Unavailable [phone] Marcus Murcia DO Unavailable Unavailable Encounter Details Date Type Department Care Team Description 04/17/2023 Practice Administrator Report Medical Records [address] [place] [address] 33899 Maycol Infante MD Social History Tobacco Use [...] on filedocumented in this encounter Care Teams Grocery Bagger Relationship Specialty Start Date End Date Kathy Christopher MD [address] [place] [address] 83960 PCP - General Internal Medicine 01/21/22 Kameron Zuñiga MD Clarification Operator Cardiovascular Disease 08/04/21 Katya Lopez NP Cardiology 08/04/21 01/30/24 Be Pacheco NP [address] [place] [address] 96405 Nurse Practitioner Cardiology 10/17/22 01/30/24 Maycol Infante MD [address] [place] [address] 06115 Specialist Pulmonology 10/19/22 Sebastian Martinez MD [address] [place] [address] 11347 Specialist Ophthalmology 03/21/23 Eve Juan MD [address] [place] [address] [place] [address] Specialist UROGYNECOLOGY 03/21/23 Elisa Romero NP [address] [place] [address] [place] [address] Cardiology 01/31/24 Marcus Murcia DO [address] [place] [address] [place] [address] Specialist Physiatry 03/26/24 documented as of this encounter
--- OUTSIDE RECORDS SUMMARY | 2024-10-08 12:08 | XMS_ITS | Encounter Summary ---
Author Organization [facility] Address [address] [place] [address] Care Team Providers Care Tankroom Tender Name Role Phone Wiley Thompson MD Primary Care Provider Kameron Cornejo MD Unavailable Katya Lopez NP Unavailable Unavailab Kathy Haley MD Primary Care Prov ider Be Pacheco NP Unavailable [phone] Maycol Infante MD Unavailable Unavailable Sebastian Martinez MD Unavailable UnavailEve Blackmon MD Unavailable Elisa Romero NP Unavailable [phone] Marcus Murcia DO Unavailable Unavailable Encounter Details Date Type Department Care Team Description 01/29/2021 Opticianry Teacher Report Medical Records [address] [place] [address] Maycol Infante MD Social History Tobacco Use [...] on filedocumented in this encounter Care Teams Tankroom Tender Relationship Specialty Start Date End Date Wiley Thompson MD PCP - General Internal Medicine 06/04/14 01/20/22 Kathy Christopher MD [address] [place] [address]76 PCP - General Internal Medicine 01/21/22 Kameron Zuñiga MD Platform Stapler Cardiovascular Disease 08/04/21 Katya Lopez NP Cardiology 08/04/21 01/30/24 Be Pacheco NP [address] [place] [address] 85784 Nurse Practitioner Cardiology 10/17/22 01/30/24 Maycol Infante MD [address] [place] [address] 46645 Specialist Pulmonology 10/19/22 Sebastian Martinez MD [address] [place] [address] 15709 Specialist Ophthalmology 03/21/23 Eve Juan MD [address] [place] [address] [place] [address] Specialist UROGYNECOLOGY 03/21/23 Elisa Romero NP [address] [place] [address] [place] [address] Cardiology 01/31/24 Marcus Murcia DO [address] [place] [address] [place] [address] Specialist Physiatry 03/26/24 documented as of this encounter
--- OUTSIDE RECORDS SUMMARY | 2024-10-08 12:08 | XMS_ITS | Encounter Summary ---
Author Organization [facility] Address [address] [place] [address] Care Team Providers Care Stripper Soft Plastic Name Role Phone Kameron Zuñiga MD Unavailable Katya Lopze NP Unavailable Unavailab Kathy Haley MD Primary Care Prov ider Be Pacheco NP Unavailable [phone] Maycol Infante MD Unavailable Unavailable Sebastian Martinez MD Unavailable UnavailEve Blackmon MD Unavailable Elisa Romero NP Unavailable [phone] Marcus Murcia DO Unavailable Unavailable Encounter Details Date Type Department Care Team Description 02/23/2023 Orders Only Medical Records [address] [place] [address] 9[address]69 Abstract, Provider Social History Tobacco Use Types [...] on filedocumented in this encounter Care Teams Stripper Soft Plastic Relationship Specialty Start Date End Date Kathy Christopher MD [address] [place] [address] 57769 PCP - General Internal Medicine 01/21/22 Kameron Zuñiga MD Field Health Officer Cardiovascular Disease 08/04/21 Katya Lopez NP Cardiology 08/04/21 01/30/24 Be Pacehco NP [address] [place] [address] 56151 Nurse Practitioner Cardiology 10/17/22 01/30/24 Maycol Infante MD [address] [place] [address] 35744 Specialist Pulmonology 10/19/22 Sebastian Martinez MD [address] [place] [address] 57897 Specialist Ophthalmology 03/21/23 Eve Juan MD [address] [place] [address] [place] [address] Specialist UROGYNECOLOGY 03/21/23 Elisa Romero NP [address] [place] [address] [place] [address] Cardiology 01/31/24 Marcus Murcia DO [address] [place] [address] [place] [address] Specialist Physiatry 03/26/24 documented as of this encounter
--- OUTSIDE RECORDS SUMMARY | 2024-10-08 12:08 | XMS_ITS | Encounter Summary ---
Author Organization [facility] Address [address] [place] [address] Care Team Providers Care Adjusto Writer Operator Name Role Phone Lance Lorenzo Primary Care Provider Unavailab Bri Cooper MD Primary Care Provider Unavailable Wiley Thompson MD Primary Care Provider Kameron Cornejo MD Unavailable Katya Lopez NP Unavailable Unavailab Kathy Haley MD Primary Care Prov ider Be Pacheco FIRE CONTROLMAN Unavailable Maycol Infante MD Unavailable Unavailable Sebastian Martinez MD Unavailable UnavailEve Blackmon MD Unavailable Elisa Romero NP Unavailable [phone] Marcus Murcia DO Unavailable Unavailable Encounter Details Date Type Department Care Team Description 01/02/2012 Principal Architectural Firm Report Medical Records [address] [place] [address] Inderjit Bonilla Social History Tobacco Use Types Packs/Day Years Used Date Smoking Tobacco: Never Assessed Sex Assigned at Date Recorded Not on file Job Start Date Occupation Industry Not on file Not on file Not on file documented as of this encounter Plan of Treatment Not on file documented as of this encounter Visit Diagnoses Not on filedocumented in this encounter Care Teams Adjusto Writer Operator Relationship Specialty Start Date End Date Lance Lorenzo PCP - General Internal Medicine 06/19/11 04/22/12 Bri Santacruz MD PCP - General Internal Medicine 04/23/12 06/03/14 Wiley Thompson MD PCP - General Internal Medicine 06/04/14 01/20/22 Kathy Christopher MD [address] [place] [address]41 PCP - General Internal Medicine 01/21/22 Kameron Zuñiga MD Bobcat Operator Cardiovascular Disease 08/04/21 Katya Lopez NP Cardiology 08/04/21 01/30/24 Be Pacheco NP [address] [place] [address] 09992 Nurse Practitioner Cardiology 10/17/22 01/30/24 Maycol Infante MD [address] [place] [address] 24539 Specialist Pulmonology 10/19/22 Sebastian Martinez MD [address] [place] [address] 12669 Specialist Ophthalmology 03/21/23 Eve Juan MD [address] [place] [address] [place] [address] Specialist UROGYNECOLOGY 03/21/23 Elisa Romero NP [address] [place] [address] [place] [address] Cardiology 01/31/24 Marcus Murcia DO [address] [place] [address] [place] [address] Specialist Physiatry 03/26/24 documented as of this encounter
--- OUTSIDE RECORDS SUMMARY | 2024-10-08 12:08 | XMS_ITS | Encounter Summary ---
Author Organization [facility] Address [address] [place] [address] Care Team Providers Care Billet Worker Name Role Phone Wiley Thompson MD Primary Care Provider Kameron Cornejo MD Unavailable Katya Lopez NP Unavailable Unavailab Kathy Haley MD Primary Care Prov ider Be Pacheco NP Unavailable [phone] Maycol Infante MD Unavailable Unavailable Sebastian Martinez MD Unavailable UnavailEve Blackmon MD Unavailable Elisa Romero NP Unavailable [phone] Marcus Murcia DO Unavailable Unavailable Reason for Visit * Reason Comments E-prescribe Rx Request Encounter Details Date Type Department Care Team Description 07/07/2021 Refill Adult Medicine [address] [address] Wiley Thompson MD E-prescribe Rx Request Social [...] Patients current insurance carrier is: Payor: [facility] MCR / Plan: Grasshoppers!O $0 [facility] [id number] / Product Type: HMO [id number]-Yiugnys documented in this encounter Plan of Treatment Not on file documented as of this encounter Visit Diagnoses Not on filedocumented in this encounter Care Teams Billet Worker Relationship Specialty Start Date End Date Wiley Thompson MD PCP - General Internal Medicine 06/04/14 01/20/22 Kathy Christopher MD [address] [place] [address] PCP - General Internal Medicine 01/21/22 Kameron Zuñiga MD Waiter/Waitress [employer]avern Cardiovascular Disease 08/04/21 Katya Lopez NP Cardiology 08/04/21 01/30/24 Be Pacheco NP [address] [place] [address] Nurse Practitioner Cardiology 10/17/22 01/30/24 Maycol Infante MD [address] [place] [address] Specialist Pulmonology 10/19/22 Sebastian Martinez MD [address] [place] [address] Specialist Ophthalmology 03/21/23 Eve Juan MD [address] [place] [address] [place] [address] Specialist UROGYNECOLOGY 03/21/23 Elisa Romero NP [address] [place] [address] [place] [address] Cardiology 01/31/24 Marcus Murcia DO [address] [place] [address] [place] [address] Specialist Physiatry 03/26/24 documented as of this encounter
--- OUTSIDE RECORDS SUMMARY | 2024-10-08 12:08 | XMS_ITS | Encounter Summary ---
Author Organization [facility] Address [address] [place] [address] Care Team Providers Care Content Producer Name Role Phone Bri Santacruz MD Primary Care Provider Unavailable Wiley Thompson MD Primary Care Provider Kameron Cornejo MD Unavailable Katya Lopez NP Unavailable Unavailab Kathy Haley MD Primary Care Prov ider Be Pacheco NP Unavailable [phone] Maycol Infante MD Unavailable Unavailable Sebastian Martinez MD Unavailable UnavailEve Blackmon MD Unavailable Elisa Romero NP Unavailable [phone] Marcus Murcia DO Unavailable Unavailable Encounter Details Date Type Department Care Team Description 10/23/2012 Controlled Substance Contract with [facility] Medical Records [address] [place] [id number] Abstract, Provider Social History Tobacco Use Types [...] filedocumented in this encounter Care Teams Content Producer Relationship Specialty Start Date End Date Bri Santacruz MD PCP - General Internal Medicine 04/23/12 06/03/14 Wiley Thompson MD PCP - General Internal Medicine 06/04/14 01/20/22 Kathy Christopher MD [address] [place] [address] PCP - General Internal Medicine 01/21/22 Kameron Zuñiga MD Vocational Auto Body Instructor Cardiovascular Disease 08/04/21 Katya Lopez NP Cardiology 08/04/21 01/30/24 Be Pacheco NP [address] [place] [address] Nurse Practitioner Cardiology 10/17/22 01/30/24 Maycol Infante MD [address] [place] [address] Specialist Pulmonology 10/19/22 Sebastian Martinez MD [address] [place], [place] [phone] Specialist Ophthalmology 03/21/23 Eev Juan MD [address] [place] [address] [place] [address] Specialist UROGYNECOLOGY 03/21/23 Elisa Romero NP [address] [place] [address] [place] [address] Cardiology 01/31/24 Marcus Murcia DO [address] [place] [address] [place] [address] Specialist Physiatry 03/26/24 documented as of this encounter
--- OUTSIDE RECORDS SUMMARY | 2024-10-08 12:08 | XMS_ITS | Encounter Summary ---
Author Organization [facility] Address [address] [place] [address] Care Team Providers Care Java Web Application Developer Name Role Phone Lance Lorenzo Primary Care Provider Unavailab Bri Cooper MD Primary Care Provider Unavailable Wiley Thompson MD Primary Care Provider Kameron Cornejo MD Unavailable Katya Lopez NP Unavailable Unavailab Kathy Haley MD Primary Care Prov ider Be Pacheco MATERIALS TECH Unavailable Maycol Infante MD Unavailable Unavailable Sebastian Martinez MD Unavailable UnavailEve Blackmon MD Unavailable Elisa Romero NP Unavailable [phone] Marcus Murcia DO Unavailable Unavailable Encounter Details Date Type Department Care Team Description 01/02/2012 Pipe Manufacture Supervisor Report Medical Records [address] [place] [address] Inderjit Bonilla Social History Tobacco Use Types Packs/Day Years Used Date Smoking Tobacco: Never Assessed Sex Assigned at Date Recorded Not on file Job Start Date Occupation Industry Not on file Not on file Not on file documented as of this encounter Plan of Treatment Not on file documented as of this encounter Visit Diagnoses Not on filedocumented in this encounter Care Teams Java Web Application Developer Relationship Specialty Start Date End Date Lnace Lorenzo PCP - General Internal Medicine 06/19/11 04/22/12 Bri Santacruz MD PCP - General Internal Medicine 04/23/12 06/03/14 Wiley Thompson MD PCP - General Internal Medicine 06/04/14 01/20/22 Kathy Christopher MD [address] [place] [address] PCP - General Internal Medicine 01/21/22 Kameron Zuñiga MD Complaint Specialist Cardiovascular Disease 08/04/21 Katya Lopez NP Cardiology 08/04/21 01/30/24 Be Pacheco NP [address] [place] [address] Nurse Practitioner Cardiology 10/17/22 01/30/24 Maycol Infante MD [address] [place] [address] Specialist Pulmonology 10/19/22 Sebastian Martinez MD [address] [place] [address] Specialist Ophthalmology 03/21/23 Eve Juan MD [address] [place] [address] [place] [address] Specialist UROGYNECOLOGY 03/21/23 Elisa Romero NP [address] [place] [address] [place] [address] Cardiology 01/31/24 Marcus Murcia DO [address] [place] [address] [place] [address] Specialist Physiatry 03/26/24 documented as of this encounter
--- OUTSIDE RECORDS SUMMARY | 2024-10-08 12:08 | XMS_ITS | Encounter Summary ---
Author Organization [facility] Address [address] [place] [address] Care Team Providers Care Social Worker Name Role Phone Bri Santacruz MD Primary Care Provider Unavailable Wiley Thompson MD Primary Care Provider Kameron Cornejo MD Unavailable Katya Lopez NP Unavailable Unavailab Kathy Haley MD Primary Care Prov ider Be Pacheco MORTGAGE CONSULTANT Unavailable [phone] Maycol Infante MD Unavailable Unavailable Sebastian Martinez MD Unavailable UnavailEve Blackmon MD Unavailable Elisa Romero NP Unavailable [phone] Marcus Murcia DO Unavailable Unavailable Encounter Details Date Type Department Care Team Description 01/24/2013 Release of Information Medical Records [address] [place] [address] Abstract, Provider Social History Tobacco Use Types [...] on filedocumented in this encounter Care Teams Social Worker Relationship Specialty Start Date End Date Bri Santacruz MD PCP - General Internal Medicine 04/23/12 06/03/14 Wiley Thompson MD PCP - General Internal Medicine 06/04/14 01/20/22 Kathy Christopher MD [address] [place] [address] PCP - General Internal Medicine 01/21/22 Kameron Zuñiga MD Network Engineer Cardiovascular Disease 08/04/21 Katya Lopez, IRMA Cardiology 08/04/21 01/30/24 Be Pacheco NP [address] [place] [address] Nurse Practitioner Cardiology 10/17/22 01/30/24 Maycol Infante MD [address] [place] [address] Specialist Pulmonology 10/19/22 Sebastian Martinez MD [address] [place] [address] Specialist Ophthalmology 03/21/23 Eve Juan MD [address] [place] [address] [place] [address] Specialist UROGYNECOLOGY 03/21/23 Elisa Romero, IRMA [address] [place] [address] [place] [address] Cardiology 01/31/24 Marcus Murcia DO [address] [place] [address] [place] [address] Specialist Physiatry 03/26/24 documented as of this encounter
--- OUTSIDE RECORDS SUMMARY | 2024-10-08 12:08 | XMS_ITS | Encounter Summary ---
Author Organization [facility] Address [address] [place] [address] Care Team Providers Care Gang Saw Operator Name Role Phone Kameron Zuñiga MD Unavailable Katya Lopez NP Unavailable Unavailab Kathy Haley MD Primary Care Prov ider Be Pacheco NP Unavailable [phone] Maycol Infante MD Unavailable Unavailable Sebastian Martinez MD Unavailable UnavailEve Blackmon MD Unavailable Elisa Romero NP Unavailable [phone] Marcus Murcia DO Unavailable Unavailable Reason for Visit * Reason Onset Date Comments Echocardiogram 12/06/2022 Encounter Details Date Type Department Care Team Description 12/06/2022 Telephone Cardio PVCA Diag Testing [address] [facility] [address] [place], [place] [id number] Jessica Esqueda PA-C [address] [place], [place] [id number] Echocardiogram Social History Tobacco Use Types Packs/Day [...] 2.6 mg/dL 02/07/2023 8:28 PM EDT [facility] 02/07/2023 11:3 8 AM EDT 02/07/2023 11:39 AM EDT [facility]/07/[facility] 8:28 PM EDT Release to patient->Immediate Jessica Esuqeda PA-C LAB [facility] * (ABNORMAL) CHG BASIC METABOLIC PANEL CALCIUM TOTAL (02/07/2023 11:38 AM EDT) GLOMERULAR FILTRATION RATE 54(L) >60 02/07/2023 8:12 PM EDT [facility] Comment: This eGFR result was calculated using the CKD-EPI 2020 Creatinine Equation GLUCOSE 113(H) 70 - 100 mg/dL 02/07/2023 8:12 PM EDT [facility] Comment:Reference range appl icable to fasting specimens only Blood Urea Nitrogen 12 5 - 25 mg/dL 02/07/2023 8:12 PM EDT [facility] CREAT 1.06 0.5 - 1.1 mg/dL 02/07/2023 8:12 PM EDT [facility] NA 141 135 - 145 mEq/L 02/07/2023 8:12 PM EDT [facility] K 4.3 3.5 - 5.5 mmol/L 02/07/2023 8:12 PM EDT [facility] CL 105 96 - 110 mmol/L 02/07/2023 8:12 PM EDT [facility] CARBON DIOXIDE (CO2) 28 21 - 32 mmol/L 02/07/2023 8:12 PM EDT [facility] ANION GAP 8 3 - 11 02/07/2023 [...] Shortness of breath Coronary artery disease involving [place] coronary artery of [place] heart without angina pectoris documented in this encounter Care Teams Gang Saw Operator Relationship Specialty Start Date End Date Kathy Christopher MD [address] [place] [address] PCP - General Internal Medicine 01/21/22 Kameron Zuñiga MD Brim Pouncer Machine Operator Cardiovascular Disease 08/04/21 Katya Lopez NP Cardiology 08/04/21 01/30/24 Be Pacheco NP [address] [place] [address] Nurse Practitioner Cardiology 10/17/22 01/30/24 Maycol Infante MD [address] [place] [address] Specialist Pulmonology 10/19/22 Sebastian Martinez MD [address] [place] [address] Specialist Ophthalmology 03/21/23 Eve Juan MD [address] [place] [address] [place] [address] Specialist UROGYNECOLOGY 03/21/23 Elisa Romero NP [address] [place] [address] [place] [address] Cardiology 01/31/24 Marcus Murcia DO [address] [place] [address] [facility]colocated [facility] [place] [address] Specialist Physiatry 03/26/24 documented as of this encounter
--- OUTSIDE RECORDS SUMMARY | 2024-10-08 12:08 | XMS_ITS | Encounter Summary ---
Author Organization [facility] Address [address] [place] [address] Care Team Providers Care Specialist Wound Care Name Role Phone Kameron Zuñiga MD Unavailable Katya Lopez NP Unavailable Unavailab Kathy Haley MD Primary Care Prov ider Be Pacheco NP Unavailable [phone] Maycol Infante MD Unavailable Unavailable Sebastian Martinez MD Unavailable UnavailEve Blackmon MD Unavailable Elisa Romero NP Unavailable [phone] Marcus Murcia DO Unavailable Unavailable Encounter Details Date Type Department Care Team Description 02/14/2023 Art Supervisor Report Medical Records [address] [place] [address] Pierre Oliva, PAAdelaidaC Social History Tobacco Use [...] on filedocumented in this encounter Care Teams Specialist Wound Care Relationship Specialty Start Date End Date Kathy Christopher MD [address] [place] [address] PCP - General Internal Medicine 01/21/22 Kameron Zuñiga MD Blanking Machine Operator Cardiovascular Disease 08/04/21 Katya Lopez NP Cardiology 08/04/21 01/30/24 Be Pacheco NP [address] [place] [address] Nurse Practitioner Cardiology 10/17/22 01/30/24 Maycol Infante MD [address] [place] [address] Specialist Pulmonology 10/19/22 Sebastian Martinez MD [address] [place] [address] Specialist Ophthalmology 03/21/23 Eve Juan MD [address] [place] [address] [place] [address] Specialist UROGYNECOLOGY 03/21/23 Elisa Romero NP [address] [place] [address] [place] [address] Cardiology 01/31/24 Marcus Murcia DO [address] [place] [address] [place] [address] Specialist Physiatry 03/26/24 documented as of this encounter
--- OUTSIDE RECORDS SUMMARY | 2024-10-08 12:08 | XMS_ITS | Encounter Summary ---
Author Organization [facility] Address [address] [place] [address] Care Team Providers Care Interior Design Professor Name Role Phone Kameron Zuñiga MD Unavailable Katya Lopez NP Unavailable Unavailab Kathy Haley MD Primary Care Prov ider Be Pacheco NP Unavailable [phone] Maycol Infante MD Unavailable Unavailable Sebastian Martinez MD Unavailable UnavailEve Blackmon MD Unavailable Elisa Romero NP Unavailable [phone] Marcus Murcia DO Unavailable Unavailable Encounter Details Date Type Department Care Team Description 12/09/2022 Painter Report Medical Records [address] [place] [address] Maycol Infante MD Social History Tobacco Use [...] on filedocumented in this encounter Care Teams Interior Design Professor Relationship Specialty Start Date End Date Kathy Christopher MD [address] [place] [address] PCP - General Internal Medicine 01/21/22 Kameron Zuñiga MD Computing Services Director Cardiovascular Disease 08/04/21 Katya Lopez NP Cardiology 08/04/21 01/30/24 Be Pacheco NP [address] [place] [address] Nurse Practitioner Cardiology 10/17/22 01/30/24 Maycol Infante MD [address] [place] [address] Specialist Pulmonology 10/19/22 Sebastian Martinez MD [address] [place] [address] Specialist Ophthalmology 03/21/23 Eve Juan MD [address] [place] [address] [place] [address] Specialist UROGYNECOLOGY 03/21/23 Elisa Romero NP [address] [place] [address] [place] [address] Cardiology 01/31/24 Marcus Murcia DO [address] [place] [address] [place] [address] Specialist Physiatry 03/26/24 documented as of this encounter
== END 2024-10-08 11:34 | disposition home or self-care (01) ==
LOC: HO.HUSH 10:24
PROVIDERS: PCP Internal Medicine; Visit Provider Nurse Practitioner Family
DX: R39.9 Unspecified symptoms and signs involving the genitourinary system (principal); N30.00 Acute cystitis without hematuria; Z13.9 Encounter for screening, unspecified
CPT/HCPCS: 99214; G2211

== ENCOUNTER → 2024-10-08 10:23 | Outpatient (BNVA) | payer OTHER, SELFPAY | PROVIDERS: PCP Internal Medicine; Visit Provider Nurse Practitioner Family | DX: R33.9 Retention of urine, unspecified (principal); R35.0 Frequency of micturition; N30.00 Acute cystitis without hematuria; N39.41 Urge incontinence | CPT/HCPCS: 51798; 81003; 99212 ==

== ENCOUNTER 2024-10-18 15:10 | Emergency (ER) | payer OTHER, SELFPAY ==
[2024-10-18 15:18] VITALS: BP 144/57; BP 166/84; PULSE 80; PULSE 91; RESP 16; TEMP 37.2; O2SAT 93; O2SAT 96; BMI 33.9
--- NOTE | 2024-10-18 15:19 | ED_ITS ---
HPI - General Adult General Chief complaint: Urogenital-Female Stated complaint: uti Time Seen by Provider: 10/18/24 15:18 Source: patient and EMS Mode of arrival: EMS Limitations: no limitations History of Present Illness ED Provider: Yuli Mckeon PA-C HPI narrative: Patient is an 79 year old assigned female at with a history of chronic UTI, stage 3 CKD, COPD, DM, and GERD presenting to the emergency department today with burning during urination. Patient states that she has been dealing with a urinary tract infection for the last 1 month and continues to have burning with urination symptoms. Patient states that she is currently on Doxycycline from the Urologist for her UTI but she continues to have burning with urination. Patient states that she has not had a vaginal examination since this started. Patient denies any dizziness, lightheadedness, abdominal pain, nausea, vomiting, fever, chills, blurry vision, double vision, loss of vision, chest pain, difficulty breathing, shortness of breath, back pain, night sweats, increased urinary frequency, increased urinary urgency, blood in her urine or stool, syncope or a near syncopal episode, recent trauma or falls, bowel incontinence, bladder incontinence, or any other complaints at this time. Onset (ago): month(s) (1) Related Data Home Medications ?Medication ?Instructions ?Recorded ?Confirmed cetirizine 10 mg tablet 10 mg PO DAILY 03/21/20 10/08/24 nitroglycerin 0.4 mg sublingual 0.4 mg sublingual ONCE PRN Chest 03/21/20 10/08/24 tablet Pain albuterol sulfate 2.5 mg/3 mL 2.5 mg inhalation Q4H PRN wheezing 04/28/20 10/08/24 (0.083 %) solution for nebulization melatonin 10 mg tablet 10 mg PO BEDTIME PRN Sleep 08/19/21 10/08/24 aspirin 81 mg tablet,delayed 81 mg PO DAILY 09/02/21 10/08/24 release isosorbide mononitrate 30 mg 30 mg PO DAILY 09/02/21 10/08/24 tablet,extended release 24 hr Oxygen Home Use 09/16/22 10/08/24 nebulizers 09/16/22 10/08/24 metformin 500 mg tablet,extended 500 mg PO DAILY 10/30/23 10/08/24 release 24 hr metoprolol tartrate 50 mg tablet 50 mg PO BID 06/17/24 10/08/24 atorvastatin 80 mg tablet 80 mg PO DAILY 06/20/24 10/08/24 Previous Rx's ?Medication ?Instructions ?Recorded cholecalciferol (vitamin D3) 50 50 mcg PO DAILY 30 days #30 caps 04/08/20 mcg (2,000 unit) capsule fluticasone propionate 50 2 spray intranasal DAILY 30 days 08/11/22 mcg/actuation nasal #15.8 mL spray,suspension azelastine 137 mcg (0.1 %) nasal 2 spray intranasal BID 30 days #30 09/19/23 spray mL lidocaine 5 % topical patch 1 patch topical DAILY #15 ea 04/11/24 celecoxib 50 mg capsule 50 mg PO BID #30 caps 04/18/24 albuterol sulfate 90 mcg/actuation 2 puff PO Q4H PRN for wheezing #1 05/14/24 aerosol inhaler ea methocarbamol 500 mg tablet 500 mg PO TID PRN muscle spasm #60 06/13/24 tabs dexlansoprazole 60 mg 60 mg PO DAILY #90 caps 07/16/24 capsule,biphase delayed release fluticasone fur. 200 mcg-umeclid 1 inh inhalation DAILY 30 days #60 08/12/24 62.5 mcg-vilant 25 mcg ea inhalat.powder (Trelegy Ellipta) sennosides 8.6 mg tablet (senna) 17.2 mg (2 x 8.6 mg) PO DAILY PRN 09/11/24 constipation 90 days #180 tabs nitrofurantoin 100 mg PO BID 4 days #8 caps 10/14/24 monohydrate/macrocrystals 100 mg capsule (Macrobid) doxycycline monohydrate 100 mg 100 mg PO BID 10 days #20 caps 10/16/24 capsule fluconazole 150 mg tablet 150 mg PO 1XD 1 dose #1 tab 10/18/24 Allergies Allergy/AdvReac Type Severity Reaction Status Date / Time amoxicillin [Augmentin] Allergy Mild Rash Verified 10/18/24 15:32 clavulanic acid Allergy Mild RASH Verified 10/08/24 11:32 [From Augmentin] Review of Systems Constitutional: Constitutional: Reports no additional constitutional complaints, Denies chills, Denies fever(s) and Denies night sweats Eyes: Eyes: Reports no additional eye complaints, Denies blurry vision, Denies change in vision, Denies diplopia, Denies eye discharge, Denies loss of vision and Denies eye pain ENT: Denies dizziness Cardiovascular: Cardiovascular: Reports no additional cardiovascular complaints, Denies chest pain, Denies lightheadedness, Denies Loss of Consciousness and Denies dyspnea Respiratory: Respiratory: Reports no additional respiratory complaints and Denies dyspnea Gastrointestinal: Gastrointestinal: Reports no additional gastrointestinal complaints, Denies abdominal pain, Denies melena, Denies hematochezia, Denies change in bowel habits and Denies change in stool character Genitourinary: Genitourinary: Denies hematuria, Denies urinary frequency, Reports dysuria, Denies urinary incontinence, Denies urinary hesitancy and Denies urinary urgency Musculoskeletal: Musculoskeletal: Reports no additional musculoskeletal complaints, Denies numbness and Denies tingling Neurologic: Denies dizziness, Denies loss of vision, Denies numbness and Denies tingling Psychiatric: Psychiatric: Reports no additional psychiatric complaints Endocrine: Endocrine: Reports no additional endocrine complaints Hematologic/Lymphatic: Hematologic/Lymphatic: Reports no additional hematologic/lymphatic complaints Allergic/Immunologic: Allergic/Immunologic: Reports no additional allergic/immunologic complaints [facility] Past Medical History Attestation statement: The following information was validated with the patient. Source: old records reviewed and nursing notes reviewed Medical History Obesity (BMI 30.0-34.9) Chronic respiratory failure Asthma-COPD overlap syndrome Incontinence in female History of adenomatous polyp of colon Pneumonitis Bronchopneumonia Hypogammaglobulinemia Chronic rhinitis Dizziness Headache Hyperlipidemia HTN (hypertension) Diabetes COPD (chronic obstructive pulmonary disease) Surgical History S/P right coronary artery (RCA) stent placement H/O colonoscopy History of foot surgery History of toe surgery History of bunionectomy Family History Family History Mother No problems noted. Father No problems noted. Social History 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 services: Yes (grand daughter hide inspector) Alcohol intake: never Patient Tobacco Use Status: Former Tobacco user Tobacco use type: Cigarette Advance Directives: Yes Advance Directives on File: Yes Advance Directives Date on File: 10/03/23 service: No Current occupational status: retired Sexual orientation: Straight/Heterosexual Gender identity: Female Physical Exam ED Vital Signs: Vital Signs - 24 hr 10/18/24 15:18 Temperature 98.9 F Pulse Rate 80 Respiratory Rate 16 Blood Pressure 144/57 H Pulse Oximetry 93 Oxygen Delivery Method Room Air BMI result Body Mass Index 33.9 Const General: cooperative, no acute distress, alert and awake Nutritional Appearance: well nourished Orientation/consciousness: patient oriented x3 HENMT Head: Yes normal to inspection and Yes atraumatic Ears: hearing grossly normal bilaterally and external ears normal General nose exam: Normal external nose present, no nasal discharge noted and no epistaxis Face and sinus: Yes normal facial exam, No abrasion and No laceration Mouth: Normal oral and palatal mucosa present, no drooling and no muffled voice Eyes General: appearance normal, both eyes and all related structures Periorbital: periorbital findings normal Eyelids: Yes eyelids normal Conjunctivae: conjunctivae normal Pupils: Equal, round and reactive pupils present EOM: EOMs intact bilaterally Neck Neck: Yes normal visual inspection, Yes full ROM and Yes no lymphadenopathy Resp Effort & Inspection: normal respiratory effort and able to speak in complete sentences Other: Vaginal examination performed with Lead Level Designer LAURA Friedman at the bed side. External Female Exam: lesion (at the 5 o'clock position) Neuro General: patient oriented x3, moves all extremities and CN's II-XI intact bilaterally Cranial nerves: Yes Equal, round and reactive pupils present Cognition (Neuro): normal cognition Extrem General: Yes normal to inspection, Yes full ROM and Yes capillary refill normal Psych Appearance: grossly normal Mental Status: mental status grossly normal Affect: normal affect Attitude: cooperative Thought process: Normal thought process present Thought content: Normal thought content present Insight: Good insight present (Psych) Medications Administered Discontinued Medications Generic Name Dose Route Start Last Admin Trade Name Freq PRN Reason Stop Dose Admin Fluconazole 150 mg 10/18/24 15:31 10/18/24 15:42 Fluconazole 150 Mg Tablet PO 10/18/24 15:32 150 mg ONCE ONE Administration Medical Decision Making Medical Decision Making MDM Narrative: Patient is an 79 year old assigned female at with a history of chronic UTI, stage 3 CKD, COPD, DM, and GERD presenting to the emergency department today with burning during urination. Patient's physical exam was as noted in the physical exam portion of this note. Patient's vaginal lesion near the the urethra was difficult to differentiate between a lesion and abrasion. Patient has significant external vaginal pain during my external vaginal examination with some erythema - concerning for possible yeast. Patient's urine showed possible infection however - the patient is currently on doxycycline for this. I explained my physical exam findings as well as all test results to the patient. I answered all questions asked by the patient. Patient was given a dose of diflucan while in the department and PO Oxycodone for the pain. I stressed the importance of the patient taking her medication as directed (either prescribed or as the over the counter packaging recommends). I stressed the importance of the patient following up with her primary care provider, an OBGYN, and her urologist. I stressed the importance of the patient returning to the emergency department immediately if her symptoms were to worsen or if she were to develop any dizziness, shortness of breath, difficulty breathing, chest pain, blurry vision, loss of vision, nausea, vomiting, abdominal pain, fever, chills, back pain, or any other complaints. Patient verbalized agreement and understanding with this treatment plan and discharge. Differential Diagnosis Differential Diagnoses: The differential diagnosis associated with the presentation includes Vaginal lesion Vaginal yeast UTI Admission/Observation Consideration of admission/observation: Escalation of care including admission /observation considered Patient would have been admitted to the hospital had her work up had any findings where hospital admission was appropriate and her clinical presentation warranted hospital admission. Lab Data [facility] Lab Attestation statement: I reviewed the patient's lab results. My interpretation of these results are in the [facility] Rationale portion of this note. Labs: Lab Results 10/18/24 Range/Units 16:07 Urine Color Dark Yellow Urine Appearance Clear Urine pH 7.0 (5.0-9.0) Ur Specific Valier 1.010 (1.005-1.025) Urine Protein Trace (Neg-Trace) mg/dL Urine Glucose (UA) Negative (Negative) mg/dL Urine Ketones Negative (Negative) mg/dL Urine Blood Trace H (Negative) Urine Nitrite Positive H (Negative) Ur Leukocyte Esterase Large (3+) H (Negative) Urine RBC 3-5 H (0-2) /HPF Urine WBC 6-10 (0-5) /HPF Ur Squamous Epith Cells 0-2 (0-2) /HPF Urine Bacteria None Seen (None Seen) Hyaline Casts 0-2 (0-2) /LPF Independent Historian Clinical information obtained from an independent historian. History obtained from or confirmed by: EMS (EMS provided additional history and confirmed the history provided by the patient. ) Chronic Conditions Patient?s care impacted by: Diabetes Discharge Plan Discharge Clinical Impression: Chronic UTI, Vaginal lesion Patient Disposition: Home, Self-Care Instructions: Urinary Tract Infection in Women (DC) Additional Instructions: Follow up with your primary care provider, an OBGYN about your vaginal lesion, and a urologist. Given your examination today and how tender your vaginal area is - I am concerned there may be a yeast infection. You were given the first dose of medication in the ER and I have sent the second dose in. Finish the antibiotic you were already prescribed for your UTI. Return to the emergency department immediately if your symptoms worsen or if you develop any numbness, tingling, dizziness, shortness of breath, difficulty breathing, chest pain, blurry vision, loss of vision, nausea, vomiting, abdominal pain, fever, chills, back pain, or any other complaints. Call any of the below to establish and follow up with an OBGYN about your vaginal lesion: OBGYN and Midwifery [facility] [address] [phone] [facility] [address] [facility] [phone] [facility] [address] [phone] OBGYN and Midwifery [facility] [address] [facility] [phone] [phone] Please see the information below about our Patient Portal. If you are not yet enrolled in the [facility] Patient Portal, you will receive an enrollment email invitation following your visit to any [facility] setting. You may also self-enroll in the Patient Portal by visiting our website: [email or web address] The following information is required to access the Patient Portal: - Your [facility] Medical Record Number - Your personal home email address (must match what is in your electronic medical record, Registration staff can assist with this) - Name - Date of Capabilities of the Patient Portal: - Message some providers - View upcoming appointments - Access your health summary, medical history, and visit history - View current conditions and allergies - View procedure and lab results - View your medications, including guidelines, side effects, and precautions - Complete pre-appointment questionnaires requested by your provider - Ready summary reports of your office visits and procedures To access the Patient Portal Mobile [employer], follow these directions: - Search ybuy in the [employer] Store or Google Play Store - Download the [employer]ir - Search for [facility] - Enter your login/password Prescriptions: New fluconazole 150 mg tablet 150 mg PO 1XD Qty: 1 0RF Rx Instructions: Take on 10/21/2024 No Action cholecalciferol (vitamin D3) 50 mcg (2,000 unit) capsule 50 mcg PO DAILY 30 Days Qty: 30 3RF azelastine 137 mcg (0.1 %) aerosol,spray 2 spray intranasal BID 30 Days Qty: 30 6RF Rx Instructions: administer into each nostril methocarbamol 500 mg tablet 500 mg PO TID PRN (Reason: muscle spasm) Qty: 60 0RF Rx Instructions: Discontinue use of Cyclobenzaprine No driving while taking this medication. Do no take with alcohol or other [employer] Depressants dexlansoprazole 60 mg capsule,biphase delayed releas 60 mg PO DAILY Qty: 90 3RF Trelegy Ellipta 200-62.5-25 mcg blister with device 1 inh inhalation DAILY 30 Days Qty: 60 12RF nitrofurantoin monohyd/m-cryst [Macrobid] 100 mg capsule 100 mg PO BID 4 Days Qty: 8 0RF Rx Instructions: must administer with a meal/food, additional four days doxycycline monohydrate 100 mg capsule 100 mg PO BID 10 Days Qty: 20 0RF lidocaine 5 % adhesive patch,medicated 1 patch topical DAILY Qty: 15 0RF Rx Instructions: leave on most painful area for up to 12 hrs atorvastatin 80 mg tablet 80 mg PO DAILY albuterol sulfate 2.5 mg /3 mL (0.083 %) solution for nebulization 2.5 mg inhalation Q4H PRN (Reason: wheezing) nitroglycerin 0.4 mg tablet, sublingual 0.4 mg sublingual ONCE PRN (Reason: Chest Pain) cetirizine 10 mg tablet 10 mg PO DAILY aspirin 81 mg tablet,delayed release (DR/EC) 81 mg PO DAILY isosorbide mononitrate 30 mg tablet extended release 24 hr 30 mg PO DAILY fluticasone propionate 50 mcg/actuation spray,suspension 2 spray intranasal DAILY 30 Days Qty: 15.8 11RF melatonin 10 mg tablet 10 mg PO BEDTIME PRN (Reason: Sleep) (DME) Oxygen Home Use Kit See Rx Instructions .Route Rx Instructions: As directed (DME) nebulizers [facility] See Rx Instructions .Route Rx Instructions: As directed metoprolol tartrate 50 mg tablet 50 mg PO BID metformin 500 mg tablet extended release 24 hr 500 mg PO DAILY albuterol sulfate 90 mcg/actuation HFA aerosol inhaler 2 puff PO Q4H PRN (Reason: for wheezing) Qty: 1 11RF sennosides [senna] 8.6 mg tablet 17.2 mg PO DAILY PRN (Reason: constipation) 90 Days Qty: 180 1RF celecoxib 50 mg capsule 50 mg PO BID Qty: 30 0RF Rx Instructions: Take with food, do not take with any other nonsteroidal anti-inflammatory medications Referrals: [facility] Family Medicine [Provider Group] (Call to establish and follow up with a primary care provider. If you already have a primary care provider, please follow up with them.) [facility] Primary Care[facility] [Provider Group] (Call to establish and follow up with a primary care provider. If you already have a primary care provider, please follow up with them.) [facility] Primary [facility] [Provider Group] (Call to establish and follow up with a primary care provider. If you already have a primary care provider, please follow up with them.) [facility] Primary Care, [facility] [Provider Group] (Call to establish and follow up with a primary care provider. If you already have a primary care provider, please follow up with them.) [facility] Primary Care[facility] [Provider Group] (Call to establish and follow up with a primary care provider. If you already have a primary care provider, please follow up with them.) Interventions: ED Discharge Assessment Last Done: 10/18/24 17:22 Print Language: Tamazight
[2024-10-18] MEDS: Fluconazole 150 MG TABLET PO (15:42)
[2024-10-18 16:14] LABS: Appearance Urine Clear; Color Urine Dark Yellow; Glucose Urine UA Negative (Negative); Leukocyte Esterase Urine Large (3+) (Negative); Nitrite Urine Positive (Negative); UMIC TRIGGER UACC YES; Urine Blood Trace (Negative); Urine Ketones Negative (Negative); Urine Protein Trace mg/dL (Neg-Trace)
[2024-10-18 16:31] LABS: Bacteria Urine None Seen (None Seen); Hyaline Casts Urine 0-2 /LPF (0-2); Squamous Epithelial Cell Urine 0-2 /HPF (0-2); UACC Culture Trigger YES
[2024-10-18 17:21] VITALS: BP 124/44; PULSE 76; RESP 16; TEMP 36.6; O2SAT 94
[2024-10-18 17:22] VITALS: BP 124/44; PULSE 76; RESP 16; TEMP 36.6; O2SAT 94
[2024-10-18] MEDS: oxyCODONE HCl Immed Release 5 MG TABLET 10 MG PO (17:23)
== END 2024-10-18 17:33 | disposition home or self-care (01) ==
PROVIDERS: Physician Assistant Medical; Emergency Provider Emergency Medicine
DX: N39.0 Urinary tract infection, site not specified (principal); N89.8 Other specified noninflammatory disorders of vagina; R30.0 Dysuria; E11.22 Type 2 diabetes mellitus with diabetic chronic kidney disease; I12.9 Hypertensive chronic kidney disease with stage 1 through stage 4 chronic kidney disease, or unspecified chronic kidney disease; N18.30 Chronic kidney disease, stage 3 unspecified
CPT/HCPCS: 81001; 87086; 99283

== ENCOUNTER 2024-10-30 10:06 | Outpatient (AMB) | payer OTHER, SELFPAY ==
--- NOTE | 2024-10-30 10:09 | MHC.OFFVIS ---
Intake Visit Reasons: 3w/PVR Intake Note: Pt presents to the office today for a 3 week/PVR. Pt states she is having burning and pain when urinating. Urology Meds: None PVR:166mL Allergies amoxicillin [Augmentin] Allergy (Mild, Verified 10/30/24 11:00) Rash clavulanic acid [From Augmentin] Allergy (Mild, Verified 10/30/24 11:00) RASH Medication List - Last Reconciled 10/30/24 by VLAIDMIR Johns- albuterol sulfate 2.5 mg inhalation Q4H PRN albuterol sulfate 90 mcg/actuation 2 puffs PO Q4H PRN aspirin 81 mg PO DAILY atorvastatin 80 mg PO DAILY azelastine 2 sprays intranasal BID 30 days celecoxib 50 mg PO BID cetirizine 10 mg PO DAILY cholecalciferol (vitamin D3) 50 mcg PO DAILY 30 days dexlansoprazole 60 mg PO DAILY estradiol 0.01%(0.1mg/gram) Pea-sized amount to urethra daily 90 days fluticasone propionate 50 mcg/actuation 2 sprays intranasal DAILY 30 days [id number]-[id number]-kamtzbxs 200-62.5-25 mcg (Trelegy Ellipta) 1 inh inhalation DAILY 30 days isosorbide mononitrate ER 30 mg PO DAILY lidocaine 5% 1 patch topical DAILY melatonin 10 mg PO BEDTIME PRN metformin ER 500 mg PO DAILY methocarbamol 500 mg PO TID PRN metoprolol tartrate 50 mg PO BID nebulizers As directed nitroglycerin 0.4 mg sublingual ONCE PRN Oxygen Home Use As directed sennosides (senna) 17.2 mg (2 x 8.6 mg) PO DAILY PRN 90 days terazosin 1 mg PO BEDTIME 30 days HPI Comments Details: Shea is a very pleasant 79 year old female patient of Dr. Rizo who was accompanied by her grand daughter at today's office visit. She has a history of pneumonitis, bronchopneumonia, chronic rhinitis, dizziness, headaches, hyperlipidemia, hypertension, diabetes, and COPD. She presents to the office today for follow-up of her lower urinary tract symptoms as well as recurrent urinary tract infections. In discussion with the patient today she reports having completed doxycycline as prescribed at her last office visit and continues with episodes of dysuria. She reports having seeked emergency room care services 2 weeks ago at which time she was told she had a question of a vaginal/urethral lesion. She reports being given medication for a potential yeast infection that she did not feel was helpful at all. In assessment of the patient today no lesions or open areas noted throughout the vagina and or urethra. The urethra does appear reddened. No foul-smell noted. In office urinalysis results reviewed with the patient today 3+ leukocytes negative nitrates. PVR 166 mL. Previous workup has included multiple urine cultures as noted and trended below: Urine culture: 11/10 < 10,000 cfu/ml Urine culture: 10/11 < 10,000 cfu/ml Urine culture: 09/10 ,10,000 to 50,000 cfu/ml Mixed bacterial ming Urine Culture: 08/13 Enterococcus faecalis Cirrus DX 10/11 noted E coli, Enterococcus faecalis, Staphylococcus spp., methicillin resistance Urine was collected via straight cath today and sent for microgen. We discussed low-dose terazosin to assist with incomplete bladder emptying as well as lifestyle modifications like double voiding to assist with incomplete bladder emptying. We also discussed application of Estrace cream to urethra as urethra was noted to be reddened. She otherwise denies hematuria, changes to urinary stream, flank pain, fever, and or chills. Previous workup has also included a retroperitoneal ultrasound 09/09 noting bilateral kidneys with no calculi, lesions, and or hydronephrosis. The bladder is partially distended. Bilateral ureteral jets are not demonstrated. Pre void bladder volume is approximately 140 mL. Postvoid bladder volume is approximately 40 mL. We discussed potential near future in office cystoscopy for further assessment evaluation She otherwise offers no issues or concerns at this time. [facility] Medical History Obesity (BMI 30.0-34.9) Chronic respiratory failure Asthma-COPD overlap syndrome Incontinence in female History of adenomatous polyp of colon Pneumonitis Bronchopneumonia Hypogammaglobulinemia Chronic rhinitis Dizziness Headache Hyperlipidemia HTN (hypertension) Diabetes COPD (chronic obstructive pulmonary disease) Surgical History S/P right coronary artery (RCA) stent placement H/O colonoscopy History of foot surgery History of toe surgery History of bunionectomy Family History Mother No problems noted. Father No problems noted. 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 services: Yes (grand daughter senior clinical research scientist) Alcohol intake: never Patient Tobacco Use Status: Former Tobacco user Tobacco use type: Cigarette Advance Directives Date on File: 10/03/23 service: No Current occupational status: retired Sexual orientation: Straight/Heterosexual Gender identity: Female Review of Systems Const Reports as per HPI Eyes Reports no additional complaints ENT Reports as per HPI Card Reports as per HPI Resp Reports as per HPI GI Reports as per HPI Reports as per HPI Musc Reports as per HPI Neuro Reports as per HPI Psych Reports no additional complaints Endo Reports no additional complaints Pradeep/Lymph Reports no additional complaints Aller/Immun Reports no additional complaints Physical Exam Const General: cooperative, healthy appearing, comfortable, no acute distress, well developed, alert and awake Orientation/consciousness: patient oriented x3 Limitations: no limitations HEENT Head: Yes normal to inspection, Yes normocephalic and Yes atraumatic Ears: hearing grossly normal bilaterally Eyes General: appearance normal, both eyes and all related structures Neck Neck: Yes normal visual inspection and Yes trachea midline Chest Chest palpation & inspection: normal inspection of the chest Resp Effort & Inspection: normal respiratory effort and able to speak in complete sentences Cardio Rate: regular rate GI Inspection: Yes normal to inspection General: Yes no CVA tenderness External Female Exam: tender (reddened) Back/Spine/Pelvis Back: no CVA tenderness Skin General skin exam: no rashes or lesions noted Neuro General: patient oriented x3 Extrem General: Yes normal to inspection Psych Appearance: grossly normal and well kempt Mental Status: mental status grossly normal Speech and movement: Normal speech and movement present and Clear speech present Affect: normal affect Attitude: cooperative Thought process: Normal thought process present Thought content: Normal thought content present Insight: Fair insight present (Psych) Judgement: Fair judgement present (Psych) Office Procedures Post Void Residual Post Residual Void Post Void Residual (PVR): 166 24061-Ermz Void Residual by ultrasound Results AMB Urinalysis, Automated UA Leukoctes 500 Haritha/uL Last Edit by Marti Lawson CMA on 10/30/24 10:30 UA Nitrite Negative Last Edit by Marti Lawson CMA on 10/30/24 10:30 UA Urobilinogen 0.2 mg/dL Last Edit by Marti Lawson, SENIOR MEDICAL BILLING SPECIALIST on 10/30/24 10:30 UA Protein 15 mg/dL Last Edit by Marti Lawson, REMA on 10/30/24 10:30 UA pH 6.0 Last Edit by Marti Lawson, SENIOR MEDICAL BILLING SPECIALIST on 10/30/24 10:30 UA Blood 10 Jefe/uL Last Edit by Marti Lawson, REMA on 10/30/24 10:30 UA Specific Jay Em 1.015 Last Edit by Marti Lawson, SENIOR MEDICAL BILLING SPECIALIST on 10/30/24 10:30 UA Ketone Negative Last Edit by Marti Lawson, SENIOR MEDICAL BILLING SPECIALIST on 10/30/24 10:30 UA Bilirubin 0 mg/dL Last Edit by Marti Lawson, SENIOR MEDICAL BILLING SPECIALIST on 10/30/24 10:30 UA Glucose 0 mg/dL Last Edit by Marti Lawson, REMA on 10/30/24 10:30 Results Reviewed Results Reviewed: Laboratory Last Values Urine pH (Auto) 6.0 10/30/24 10:28 Specific Jay Em (Auto) 1.015 10/30/24 10:28 Urine Protein (Auto) 15 mg/dL 10/30/24 10:28 Glucose (UA)(Auto) 0 mg/dL 10/30/24 10:28 Urine Ketones (Auto) Negative 10/30/24 10:28 Urine Blood (Auto) 10 Jefe/uL 10/30/24 10:28 Urine Nitrite (Auto) Negative 10/30/24 10:28 Urine Bilirubin (Auto) 0 mg/dL 10/30/24 10:28 Urine Urobilinogen (Auto) 0.2 mg/dL 10/30/24 10:28 Leukocyte Esterase (Auto) 500 Haritha/uL 10/30/24 10:28 Assessment & Plan Assessment & Plan (1) Lower urinary tract symptoms: Code(s): R39.9 - Unspecified symptoms and signs involving the genitourinary system Category: Medical (2) Incomplete bladder emptying: Code(s): R33.9 - Retention of urine, unspecified Category: Medical (3) Dysuria: Code(s): R30.0 - Dysuria Category: Medical Plan In office urinalysis results reviewed with the patient today; as noted above will send for microgen PVR 166 mL. Start Estrace cream as discussed and prescribed. Start terazosin as discussed and prescribed. We discussed potential causes of incomplete bladder emptying. Will await results of microgen for potential treatment. We discussed potential near future in office cystoscopy for further assessment evaluation. Follow-up with nursing in 1-2 weeks with PVR We discussed importance of adequate hydration in relation to lower urinary tract symptoms as well as overall health and well-being pH 6.0 on urinalysis today. Orders: Orders AMB Urinalysis Automated Today R39.9 - Unspecified symptoms and signs involving the genitourinary system AMB Post Void Residual by ultrasound Today Z87.898 - Personal history of other specified conditions Medications: New terazosin 1 mg PO BEDTIME 30 days 30 caps 3RF R39.12 - Poor urinary stream estradiol 0.01%(0.1mg/gram) Pea-sized amount to urethra daily 90 days 42.5 grams 2RF N30.20 - Other chronic cystitis without hematuria, N39.0 - Urinary tract infection, site not specified, N95.2 - Postmenopausal atrophic vaginitis Discontinued doxycycline monohydrate Discontinued Reason: Doctor's Order 100 mg PO BID 10 days 20 caps 0RF Patient Instructions: The patient had an opportunity to ask questions regarding the treatment plan. All questions were answered. Physical exam, labs, and imaging were discussed and reviewed in detail. As well as risks, benefits, and discussion of treatment choices. No major barriers to understanding were identified. The patient expressed understanding and agreement with the above treatment plan. The patient was made aware they should contact our office by phone for worsening of their current condition, the appearance of new symptoms, or with any questions or concerns. Compliance is encouraged with any medications and follow up testing that is ordered. It is a privilege to be allowed the opportunity to participate in? your urological care.? Again, if you have any questions or concerns If you have any questions or concerns please do not hesitate to contact me. The office is [phone]. This note is constructed using voice recognition software. While every effort has been made to ensure accuracy mattress maker errors may have been included. Yours sincerely, JAYLA Johns Coding Level of Care Code Est Pt Level 4 (84694) Complex EM visit Add On G2211 Diagnoses Lower urinary tract symptoms R39.9 Incomplete bladder emptying R33.9 Dysuria R30.0 CPT Codes Post Residual Void - PVR CPT Code: 49815-Fgfq Void Residual by ultrasound ([id number])
--- OUTSIDE RECORDS SUMMARY | 2024-10-30 11:02 | XMS_ITS | Encounter Summary ---
Author Organization [facility] Address [address] [place] [address] Care Team Providers Care Client Strategist Name Role Phone Kathy Perez MD Primary Care Prov ider Reason for Visit * Reason Onset Date Comments Appointment 10/03/2024 Encounter Details Date Type Department Care Team (Late st Contact Info) Description 10/03/2024 Telephone [facility] - [facility] [address] [facility] [address] [place] [phone] Kameron Zuñiga MD [address] [place], [place] [id number] Appointment Social History Tobacco Use Types Packs/Day [...] for your loved ones. For example, child care assistant or elderly care for an older adult? [...] Care Team (Late st Contact Info) Description 12/18/2024 11:30 AM EDT Office Visit Urogynecology - [address] [phone] Eve Juan MD [address] [facility] [address] [place] [address] 01/28/2025 1:15 PM EDT Office Visit [facility] - [address] [phone] Kathy Perez MD [address] [place] [address] documented as of this encounter Visit Diagnoses Not on filedocumented in this encounter Care Teams Client Strategist Relationship Specialty Start Date End Date Kathy Perez MD [address] [place] [address] PCP - General Internal Medicine 07/22/24 documented as of this encounter
--- OUTSIDE RECORDS SUMMARY | 2024-10-30 11:02 | XMS_ITS | Encounter Summary ---
Author Organization [facility] Address [address] [place] [address] Care Team Providers Care [employer] Sales Executive Name Role Phone Kathy Perez MD Primary Care Prov ider Reason for Visit * Reason Onset Date Comments Fitting for DME 10/21/2024 Encounter Details Date Type Department Care Team (Late st Contact Info) Description 10/21/2024 Telephone Adult Medicine [address] [phone] Kathy Perez MD [address] [place] [address] Fitting for DME Social History Tobacco Use Types Packs/Day Years [...] your loved ones. For example, child care leader or elderly care for an older adult? [...] as of this encounter Progress Notes * Jarrett Valenzuela - 10/21/2024 12:54 PM EDT DME REQUEST Name of Product: Shower Chair Specific information about product # Needed 1 Reason patient is asking for this supply? The patient's shower chair has broken and is requesting anew one Have you received this supply before? If yes , when?: Yes. Have you discussed the need for this supply with a provider at a recent visit? If yes, with who andwhen? Yes. When completed: Fax to [phone] [facility] Have you told the patient it will take 7-10 days for completion of this request? Yes documented in this encounter Plan of Treatment Upcoming Encounters Date Type Department Care Team (Late st Contact Info) Description 12/18/2024 11:30 AM EDT Office Visit Urogynecology [address] [phone] Eve Juan MD [address] [place] [address] [place] [address] 01/28/2025 1:15 PM EDT Office Visit [facility] - [address] [phone] Kathy Perez MD [address] [place] [address] documented as of this encounter Visit Diagnoses Not on filedocumented in this encounter Care Teams Commercial [employer] Sales Executive Relationship Specialty Start Date End Date Kathy Perez MD [address] [place] [address] PCP - General Internal Medicine 07/22/24 documented as of this encounter
--- OUTSIDE RECORDS SUMMARY | 2024-10-30 11:02 | XMS_ITS | Clinical Summary ---
Author Organization [facility] Address [address] [place] [address] Phone Care Team Providers Care Deployment Technician Name Role Phone Kathy Perez MD Primary [...] needed (Cough, Wheezing or Shortness of Breath). 10/11/19 23 Active cholecalcifero l (VITAMIN D-3) 50 mcg (2,000 unit) capsule Take 1 capsule (2,000 Units total) by mouth 1 (one) time each day. 02/19/20 22 Active diclofenac (VOLTAREN) 1 % topical gel Apply 2 g topically if needed (PAIN). 04/21/20 23 Active estradioL (ESTRACE) 0.01 % (0.1 mg/gram) vaginal cream Insert into the vagina at bedtime. Apply a pea-sized amount of cream with your finger into the vagina daily at bedtime for 2 weeks, then two times a week at night. 04/05/20 Active fluticasone-um eclidinium-janelle anterol (Trelegy Ellipta) 100-62.5-25 mcg inhaler Inhale by mouth. 11/04/19 Active lidocaine (LIDODERM) 5 % patch Place 1 patch on the skin 1 (one) time each day. Apply for no more than 12 hours in any 24 hour period. 03/21/20 Active plecanatide (Trulance) 3 mg tablet Take 1 tablet (3 mg total) by mouth 1 (one) time each day. 02/11/20 Active isosorbide mononitrate (IMDUR) 30 mg 24 hr tablet TAKE 1 TABLET BY MOUTH EVERY DAY IN THE MORNING 90 tablet 3 05/09/20 Active azelastine (ASTELIN) 137 mcg (0.1 %) [...] HOURS NEEDED FOR WHEEZING 75 mL 1 07/16/19 25 Active dexlansoprazol e (DEXILANT) [address] capsule TAKE 1 CAPSULE BY MOUTH EVERY DAY 90 capsule 3 07/17/19 25 Active nitroglycerin (NITROSTAT) 0.[address] 1 tablet (0.4 mg total) under the tongue every 5 (five) minutes if needed for chest pain. IF NO RELIEF CALL 911 90 tablet 3 07/30/19 25 Active atorvastatin (LIPITOR) 80 mg tablet Take 1 tablet (80 mg total) by mouth 1 (one) time each day. 90 tablet 3 07/30/19 25 026 Active valACYclovir (VALTREX) 1 gram tablet TAKE 2 TABLETS BY MOUTH 2 TIMES DAILY. (SEPARATE DOSES BY ~12 HOURS). USE FOR 1 DAY WITH EACH FLARE 12 tablet 09/27/19 25 Active Additional Information Patient taking differently: As needed, Reported on 10/24/2024 cefuroxime (CEFTIN) 250 mg tablet Take 1 tablet (250 mg total) by mouth 2 (two) times a day. for 7 days 10/01/19 25 Active furosemide (LASIX) 20 mg tablet TAKE 2 TABLETS BY MOUTH DAILY 60 tablet 5 10/11/19 25 Active cetirizine (ZyrTEC) 10 mg tablet TAKE 1 TABLET BY MOUTH EVERY DAY 90 tablet 1 10/12/19 25 Active metoprolol tartrate (LOPRESSOR) 50 mg tablet TAKE 1 TABLET BY MOUTH TWICE A DAY 180 tablet 2 10/16/19 25 Active glucose blood test strip Use as instructed 100 each 11 10/16/19 25 Active Additional Information Patient not taking.Reported on 10/24/2024 metFORMIN XR (GLUCOPHAGE-XR ) 500 mg 24 hr tablet TAKE 1 TABLET BY MOUTH EVERY DAY WITH BREAKFAST 90 tablet 2 10/17/19 25 Active furosemide (LASIX) 20 mg tablet Take 2 tablets (40 mg total) by mouth 1 (one) time each day if needed. 025 Discontinued cetirizine (ZyrTEC) 10 mg tablet TAKE 1 TABLET BY MOUTH EVERY DAY 90 tablet 1 04/24/20 24 025 Discontinued metoprolol tartrate (LOPRESSOR) 50 mg tablet Take 1 tablet (50 mg total) by mouth 2 (two) times a day. 180 tablet 1 05/02/20 24 025 Discontinued metFORMIN XR (GLUCOPHAGE-XR ) 500 mg 24 hr tablet TAKE 1 TABLET BY MOUTH EVERY DAY WITH BREAKFAST 90 tablet 1 05/31/20 24 025 Discontinued phenazopyridin e (PYRIDIUM) 100 mg tablet Take 1 tablet (100 mg total) by mouth 3 (three) times a day if needed for bladder spasms for up to 15 days. 30 tablet 10/04/19 25 025 Active Problems Problem Noted Date Diagnosed Date Osteoarthritis 04/23/2024 Class 1 obesity due to exces s calories with serious comorbidity and body mass index (BMI) of 32.0 to 32.9 in adult 04/23/2024 Mucopurulent chronic bronchitis ([facility] V24, CM S/[facility] V28) 05/24/2023 Palpitations 05/24/2023 Chronic heart failure with p reserved ejection fraction ([facility] V24, [facility] V28) 11/24/2022 Assessment & Plan (06/04/2024 [...] Chest pain 11/18/2022 CHF (congestive heart failure) ([facility] V24, [facility] V28) 11/18/2022 Assessment & Plan (07/30/2024 [...] disease, without long-term current use of insulin ([facility] V24, [facility] V28) 11/04/2019 Mammographic microcalcification 01/10/2019 Hearing decreased, bilateral 12/18/2018 COPD (chronic obstructive pu lmonary disease) ([facility] V24, [facility] V28) 12/10/2018 Assessment & Plan (07/30/2024 3:00 PM EST): Recent exacerbation, was evaluated in the emergency. Started on prednisone. Currently stable. Supplemental oxygen dependent 12/10/2018 Obstructive sleep apnea 11/21/2018 Overview (04/23/2024): [facility] Home Sleep Apnea Test: Date 11/18/2018; Wt 192#; BMI 33; HAYLEY 16, AI 1; HI 14; Unclassified apneas 0; Obstructive apneas 10; Central apneas 0; Mixed apneas 0; hypopneas 126; average oxygen saturation 88% (lowest 73% with saturations <88% for 5% or more of study) [facility] Polysomnogram treatment study. Date 01/11/2019. [...] kidney disease) stage 3, GFR 30-59 ml/min ([facility] V24, [facility] V28) 05/31/2017 Assessment & Plan (07/30/2024 3:00 PM EST): GFR around 50. Stable over the last year. Encouraged to avoid nephrotoxics, good control of diabetes and hypertension were discussed with the patient. Iron deficiency anemia due to chronic blood loss 08/18/2016 IBS (irritable bowel syndrome) 03/25/2016 Recurrent HSV (herpes simplex virus) 12/11/2015 Diabetes mellitus type 2 wit h neurological manifestations ([facility] V24, [facility] V28) 08/01/2015 Overview (04/23/2024): A1C 6.5 [...] x1 06/2015 Coronary artery disease invo lving [place] coronary artery of [place] heart without angina pectoris 01/21/2015 Overview (04/23/2024): [...] Gastroparesis 07/17/2012 Overview (04/23/2024): Dr. Stephenson at [address] [place] [address] GERD (gastroesophageal reflux disease) 3 Insomnia 07/17/2012 [...] Encounters Date Type Department Care Team Description 10/24/2024 11:20 AM EDT Office Visit [facility] [address] [facility] [address] [place] [address] Kameron Zuñiga MD Coronary artery disease involving [place] coronary artery of [place] heart without angina pectoris (Primary Dx); SOTELO (dyspnea on exertion); Tachycardia; Chronic obstructive pulmonary disease, unspecified COPD type (CMS/HCC V24, CMS/HCC V28) 10/24/2024 Telephone Adult Medicine [address] [phone] Kathy Nino MD Vaginal Bleeding 10/24/2024 Telephone Adult Medicine [address] [phone] Kathy Nino MD 10/21/2024 Telephone Adult Medicine [address] [phone] Kathy Nino MD Fitting for DME 10/11/2024 Telephone Adult Medicine [address] [phone] Kathy Nino MD Medication Problem 10/03/2024 10:00 AM EDT Office Visit Adult Medicine [address] [phone] Kathy Nino MD Recurrent UTI (urinary tract infection) (Primary Dx); Urinary tract infection without hematuria, site unspecified; Encounter for screening involving social determinants of health (SDoH) 10/03/2024 Telephone [facility] [address] [facility] [address] [place] [phone] Kameron Zuñiga MD Appointment 10/01/2024 Telephone Adult [address] [phone] Kathy Nino MD Abdominal Pain 09/25/2024 Telephone Adult Medicine [address] [phone] Kathy Nino MD UTI 09/12/2024 11:30 AM EDT Ancillary Procedure [facility] [address] [facility] [address] [place] [phone] Coronary artery disease involving [place] coronary artery of [place] heart without angina pectoris; Peripheral edema; SOTELO (dyspnea on exertion); Chronic heart failure with preserved ejection fraction (CMS/HCC V24, CMS/HCC V28) 09/06/2024 Telephone Adult Medicine [address] [phone] Kathy Nino MD Referral 08/27/2024 11:33 AM EDT Anesthesia Event [facility] [address] [place] [address] Negro Velasco MD 08/27/2024 10:04 AM EDT - 08/27/2024 11:59 PM EDT Hospital Encounter [facility] [address] [place] [address] Marcus Murcia DO Chang, Daniel J, MD Radiculopathy, cervical region Discharge Disposition: Home or Self Care 08/27/2024 9:08 AM EDT - 08/27/2024 11:59 PM EDT Hospital Encounter [facility] X[facility] [address] [place] [address] Pain Discharge Disposition: Home or Self Care 08/13/2024 Telephone [facility] [address] [place] [address] Kameron Zuñiga MD testing from Last 3 Months Immunizations Name Administration [...] PROCEDURE:TUBAL LIGATION OTHER SURGICAL HISTORY 2007 PROCEDURE: [place] CORRECTION HAMMERTOE; COMMENT: FOOT SURGERY PROCEDURE: HISTORICAL FOOT SURGERY; COMMENT: 18 y/o bunionectomy UPPER GASTROINTESTINAL ENDOSCOPY 03/22/2012 PROCEDURE: [place] UPPER GI ENDOSCOPY PERFORMED; COMMENT: Normal study UPPER GASTROINTESTINAL ENDOSCOPY 11/27/2015 PROCEDURE: [place] UPPER GI ENDOSCOPY PERFORMED; COMMENT: Gastritis and polyp. Normal Esophagus and duodenum. UPPER GASTROINTESTINAL ENDOSCOPY 2012 PROCEDURE: [place] UPPER GI ENDOSCOPY PERFORMED; COMMENT: FOR GERD BLADDER SUSPENSION 05/29/2018 PROCEDURE: HISTORICAL BLADDER SUSPENSION CYSTOSCOPY 03/18/2019 PROCEDURE: HISTORICAL CYSTOSCOPY; COMMENT: Normal COLONOSCOPY 06/2005 PROCEDURE: HISTORICAL COLONOSCOPY; COMMENT: tubular adenoma COLONOSCOPY 06/2010 PROCEDURE: HISTORICAL COLONOSCOPY; COMMENT: negative COLONOSCOPY 12/16/2015 PROCEDURE: HISTORICAL COLONOSCOPY; COMMENT: tubular adenoma CARDIAC CATHETERIZATION 09/26/2014 PROCEDURE: HISTORICAL CARDIAC CATH; COMMENT: RCA stent [facility], Dr Hernandez UPPER GASTROINTESTINAL ENDOSCOPY 08/18/2004 PROCEDURE: [place] UPPER GI ENDOSCOPY PERFORMED FOOT SURGERY 12/2013 PROCEDURE: HISTORICAL FOOT SURGERY; COMMENT: for second toe arthroplasty SHOULDER SURGERY Left PROCEDURE: HISTORICAL SHOULDER SURGERY; COMMENT: Arthroscopy with Dr. Berg KNEE SURGERY Left PROCEDURE: HISTORICAL KNEE SURGERY; COMMENT: Arthroscopy Medical History Medical History Date Comments Hypertension DX:Hypertension COPD (chronic obstructive pu lmonary disease) ([facility] V24, [facility] V28) DX:COPD (chronic o bstructive pulmonary disease) (HCC) Heart failure ([facility] V24, [facility] V28) DX:Heart failure (HCC) Diabetes mellitus ([facility] V 24, [facility] V28) DX:Diabetes mellitus (HCC) Asthma 07/17/2012 DX:Asthma HTN (hypertension) [...] mellitus type 2 wit h neurological manifestations ([facility]/HCC V24, [facility] V28) 08/01/2015 DX:Diabetes mellitus type 2 with [...] for your loved ones. For example, child nutrition manager or elderly care for an older [...] Sign Reading Time Taken Comments Blood Pressure 127/68 10/24/2024 11:08 AM EDT Pulse 88 10/24/2024 11:08 AM EDT Temperature 36 ??C (96.8 ??F) 10/03/2024 9:53 AM EDT Respiratory Rate 14 10/03/2024 9:53 AM EDT Oxygen Saturation 93% 10/24/2024 11:08 AM EDT Inhaled Oxygen Concentration - - Weight 83.9 kg (185 lb) 10/24/2024 11:08 AM EDT Height 162.6 cm (5' 4 ) 10/24/2024 11:08 AM EDT Body Mass Index 31.76 10/24/2024 11:08 AM EDT Plan of Treatment Upcoming Encounters Date Type Department Care Team (Late st Contact Info) Description 12/18/2024 11:30 AM EDT Office Visit Urogynecology - [address] [phone] Eve Juan MD [address] [facility] [address] [place] [address] 01/28/2025 1:15 PM EDT Office Visit [facility] - [address] [phone] Kathy Perez MD [address] [place] [address] Health Maintenance Due Date Last Done Comments [...] PM EDT Stage 3b chronic kidney disease ([facility] V24, [facility] V28) Type 2 diabetes mellitus with ESRD (end-stage renal disease) ([facility] V24, [facility] V28) Renal osteodystrophy MICROALBUMIN CREATININE URINE RATIO Routine 09/23/2024 3:26 PM EDT Stage 3b chronic kidney disease ([facility] V24, [facility] V28) Type 2 diabetes mellitus with ESRD (end-stage renal disease) (CMS/HCC V24, CMS/HCC V28) Renal osteodystrophy PROTEIN AND CREATININE WITH RATIO, URINE Routine 09/23/2024 3:26 PM EDT Stage 3b chronic kidney disease (CMS/HCC V24, CMS/HCC V28) Type 2 diabetes mellitus with ESRD (end-stage renal disease) (CMS/HCC V24, CMS/HCC V28) Renal osteodystrophy URINALYSIS WITH [...] disease) (CMS/HCC V24, CMS/HCC V28) Renal osteodystrophy [place] PROTEIN ELECTROPHORETIC FRACTIONATION & QUANTITATION SERUM Routine [...] 12:00 PM EDT Coronary artery disease involving [place] coronary artery of [place] heart without angina pectoris Peripheral edema SOTELO [...] 11:03 AM EDT Coronary artery disease involving [place] coronary artery of [place] heart without angina pectoris Hyperlipidemia, unspecified hyperlipidemia type BASIC METABOLIC PANEL Routine 08/26/2024 11:03 AM EDT Chronic heart failure with preserved ejection fraction (CMS/HCC V24, CMS/HCC V28) MAGNESIUM Routine 08/26/2024 11:03 AM EDT Chronic heart failure with preserved ejection fraction (CMS/HCC V24, CMS/HCC V28) HEMOGLOBIN A1C Routine 08/26/2024 11:03 AM EDT 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 V24, CMS/HCC V28) DEPRESSION SCREENING Routine 03/26/2024 FALLS RISK ASSESSMENT Routine 03/26/2024 DIABETES FOOT EXAM Routine 12/04/2023 DIABETES EYE EXAM Routine 11/28/2023 from Last 3 Months or Most Recently Relevant to Health Maintenance Results * (ABNORMAL) Urinalysis with reflex microscopic (09/23/2024 3:26 PM EDT) [facility] Specific [place] Urine 1.016 1.003 - 1.030 LAB URINALYSIS - AUTOMATED METHOD 09/23/2024 4:54 PM EDT [facility] pH, Urine 6.0 5.0 - 8.0 pH LAB URINALYSIS - AUTOMATED METHOD 09/23/2024 4:54 PM [facility] Leukocytes, Urine Large(A) Negative LAB URINALYSIS - AUTOMATED METHOD 09/23/2024 4:54 PM [facility] Nitrite, Urine Negative Negative LAB URINALYSIS - AUTOMATED METHOD 09/23/2024 4:54 PM [facility] Protein, Urine Trace <=Trace mg/dL LAB URINALYSIS - AUTOMATED METHOD 09/23/2024 4:54 PM [facility] Glucose, Urine Negative Negative mg/dL LAB URINALYSIS - AUTOMATED METHOD 09/23/2024 4:54 PM [facility] Ketones, Urine Negative Negative mg/dL LAB URINALYSIS - AUTOMATED METHOD 09/23/2024 4:54 PM [facility] Urobilinogen, Urine 1.0 0.2 - 1.0 mg/dL LAB URINALYSIS - AUTOMATED METHOD 09/23/2024 4:54 PM [facility] Bilirubin, Urine Negative Negative LAB URINALYSIS - AUTOMATED METHOD 09/23/2024 4:54 PM [facility] Blood, Urine Negative Negative LAB URINALYSIS - AUTOMATED METHOD 09/23/2024 4:54 PM [facility] RBC, Urine 2.7 0 - 4 /HPF LAB URINALYSIS - AUTOMATED METHOD 09/23/2024 4:54 PM [facility] WBC, Urine 115.5(H) 0 - 4 /HPF LAB URINALYSIS - AUTOMATED METHOD 09/23/2024 4:54 PM [facility] Squamous Epithelial, Urine 15 0 - 60 /LPF LAB URINALYSIS - AUTOMATED METHOD 09/23/2024 4:54 PM [facility] Bacteria, Urine Negative Negative /HPF LAB URINALYSIS - AUTOMATED METHOD 09/23/2024 4:54 PM [facility] Hyaline Casts, Urine 2.8 0 - 3 /LPF LAB URINALYSIS - AUTOMATED METHOD 09/23/2024 4:54 PM EDT [facility] Urine Urine specimen obtained by clean catch procedure / Unknown Non-blood Collection / Unknown 09/23/2024 3:26 PM EDT 09/23/2024 3:26 PM EDT us Everton Riddle MD LAB URINE ORDERABLES Final Re sult Performing Organization Address [facility]/ZIP Co de Phone Number [facility] [address] [place] [address], [place] [phone] * (ABNORMAL) Protein and creatinine with ratio, urine (09/23/2024 3:26 PM EDT) Protein, Urine 27 mg/dL LAB CHEMISTRY METHOD 09/23/2024 6:12 PM EDT [facility] Prot/Creat, Ur 0.24(H) <=0.20 mg/mg creat LAB CHEMISTRY METHOD 09/23/2024 6:12 PM EDT [facility] Creatinine, Urine 112.0 mg/dL LAB CHEMISTRY METHOD 09/23/2024 6:12 PM EDT [facility] Urine Urine specimen obtained by clean catch procedure / Unknown Non-blood Collection / Unknown 09/23/2024 3:26 PM EDT 09/23/2024 3:26 PM EDT us Everton Riddle MD LAB URINE ORDERABLES Final Re sult Performing Organization Address [facility]/ZIP Co de Phone Number [facility] [address] [place] [address], [place] [phone] * (ABNORMAL) Microalbumin creatinine urine ratio (09/23/2024 3:26 PM EDT) Creatinine, Urine 112.0 mg/dL LAB CHEMISTRY METHOD 09/23/2024 6:21 PM EDT [facility] Microalb, Ur 81.4(H) 0.0 - 29.0 mg/L LAB CHEMISTRY METHOD 09/23/2024 6:21 PM EDT [facility] Microalb/Crea t Ratio 73(H) <30 mg/g creat LAB CHEMISTRY METHOD 09/23/2024 6:21 PM EDT [facility] Urine Urine specimen obtained by clean catch procedure / Unknown Non-blood Collection / Unknown 09/23/2024 3:26 PM EDT 09/23/2024 3:26 PM EDT us Everton Riddle MD LAB URINE ORDERABLES Final Re sult Performing Organization Address [facility] Co de Phone Number [facility] [address] [place] [address], [place] [phone] * Hepatitis C antibody (09/23/2024 3:23 PM EDT) Hepatitis C Antibody Negative Negative LAB CHEMISTRY METHOD 09/23/2024 6:53 PM EDT [facility] Blood Venous blood specimen / Unknown Venipuncture / Unknown 09/23/2024 3:23 PM EDT 09/23/2024 3:23 PM EDT us Everton Riddle MD LAB BLOOD ORDERABLES Final Re sult [facility] [address] [place] [address], [place] [phone] * Hepatitis B surface antigen with reflex to confirmation (09/23/2024 3:23 PM EDT) Hepatitis B Surface Ag Negative Negative LAB CHEMISTRY METHOD 09/23/2024 6:25 PM EDT [facility] Blood Venous blood specimen / Unknown Venipuncture / Unknown 09/23/2024 3:23 PM EDT 09/23/2024 3:23 PM EDT Narrative [facility] - 09/23/2024 6:25 PM EDT Over the counter supplements containing high doses of biotin may interfere with this assay. ??If interference is suspected, patients shoud be retested after refraining from biotin supplements for 72 hours. us Everton Riddle MD LAB BLOOD ORDERABLES Final Re sult Performing Organization Address [facility] Co de Phone Number [facility] [address] [place] [address], [place] [phone] * Hepatitis B core antibody IgM (09/23/2024 3:23 PM EDT) Pathologist [facility] Hep B Core IgM Negative Negative LAB CHEMISTRY METHOD 09/23/2024 8:32 PM EDT [facility] Blood Venous blood specimen / Unknown Venipuncture / Unknown 09/23/2024 3:23 PM EDT 09/23/2024 3:23 PM EDT Narrative [facility] - 09/23/2024 8:32 PM EDT Over the counter supplements containing high doses of biotin may interfere with this assay. ??If interference is suspected, patients shoud be retested after refraining from biotin supplements for 72 hours. us Everton Riddle MD LAB BLOOD ORDERABLES Final Re sult Performing Organization Address City/[facility]/ZIP Co de Phone Number [facility] [address] [place] [address], [place] [phone] * Hepatitis B surface antibody quantitative (09/23/2024 3:23 PM EDT) Hepatitis B Surface Ab Negative Negative LAB CHEMISTRY METHOD 09/23/2024 6:14 PM EDT [facility] Hepatitis B Surface Ab Quantitative <3.1 mIU/mL LAB CHEMISTRY METHOD 09/23/2024 6:14 PM EDT [facility] Blood Venous blood specimen / Unknown Venipuncture / Unknown 09/23/2024 3:23 PM EDT 09/23/2024 3:23 PM EDT Narrative [facility] - 09/23/2024 6:14 PM EDT >=10 mIU/mL is considered to be consistent with immunity. us Everton Riddle MD LAB BLOOD ORDERABLES Final Re sult Performing Organization Address [facility] de Phone Number [facility] [address] [place] [address], [place] [phone] * Vitamin D 25 hydroxy (09/23/2024 3:23 PM EDT) Pathologist [facility] Vit D, 25-Hydroxy 48.9 30.0 - 80.0 ng/mL LAB CHEMISTRY METHOD 09/23/2024 6:14 PM EDT [facility] Blood Venous blood specimen / Unknown Venipuncture / Unknown 09/23/2024 3:23 PM EDT 09/23/2024 3:23 PM EDT us Everton Riddle MD LAB BLOOD ORDERABLES Final Re sult Performing Organization Address [facility] de Phone Number [facility] [address] [place] [address], [place] [phone] * C3 complement (09/23/2024 3:23 PM EDT) [facility] Signature C3 Complement 176 88 - 201 mg/dL LAB CHEMISTRY METHOD 09/23/2024 5:01 PM EDT [facility] Blood Venous blood specimen / Unknown Venipuncture / Unknown 09/23/2024 3:23 PM EDT 09/23/2024 3:23 PM EDT us Everton Riddle MD LAB BLOOD ORDERABLES Final Re sult Performing Organization Address [facility]/ZIP Co de Phone Number [facility] [address] [place] [address], [place] [phone] * (ABNORMAL) C4 complement (09/23/2024 3:23 PM EDT) [facility] C4 Complement 50(H) 16 - 47 mg/dL LAB CHEMISTRY METHOD 09/23/2024 5:01 PM EDT [facility] Blood Venous blood specimen / Unknown Venipuncture / Unknown 09/23/2024 3:23 PM EDT 09/23/2024 3:23 PM EDT us Everton Riddle MD LAB BLOOD ORDERABLES Final Re sult [facility] [address] [place] [address], [place] [phone] * Parathyroid hormone intact (09/23/2024 3:23 PM EDT) [facility] PTH 41.7 18.5 - 88.0 pcg/mL LAB CHEMISTRY METHOD 09/23/2024 7:52 PM EDT [facility] Blood Venous blood specimen / Unknown Venipuncture / Unknown 09/23/2024 3:23 PM EDT 09/23/2024 3:23 PM EDT us Everton Riddle MD LAB BLOOD ORDERABLES Final Re sult [facility] [address] [place] [address], [place] [phone] * (ABNORMAL) Magnesium (09/23/2024 3:23 PM EDT) Only the most recent of2 resultswithin the time period is included. [facility] Magnesium 1.6(L) 1.9 - 2.6 mg/dL LAB CHEMISTRY METHOD 09/23/2024 5:01 PM EDT [facility] Blood Venous blood specimen / Unknown Venipuncture / Unknown 09/23/2024 3:23 PM EDT 09/23/2024 3:23 PM EDT us Everton Riddle MD LAB BLOOD ORDERABLES Final Re sult [facility] [address] [place] [address], * (ABNORMAL) Renal function panel (09/23/2024 3:23 PM EDT) Pathologist [facility] Sodium 144 133 - 145 mmol/L LAB CHEMISTRY METHOD 09/23/2024 5:01 PM [facility] Potassium 4.0 3.5 - 5.5 mmol/L LAB CHEMISTRY METHOD 09/23/2024 5:01 PM [facility] Chloride 109 96 - 110 mmol/L LAB CHEMISTRY METHOD 09/23/2024 5:01 PM [facility] CO2 31 21 - 32 mmol/L LAB CHEMISTRY METHOD 09/23/2024 5:01 PM [facility] Anion Gap 4 3 - 11 LAB CHEMISTRY METHOD 09/23/2024 5:01 PM [facility] Glucose 119(H) 70 - 100 mg/dL LAB CHEMISTRY METHOD 09/23/2024 5:01 PM [facility] BUN 15 5 - 25 mg/dL LAB CHEMISTRY METHOD 09/23/2024 5:01 PM [facility] Creatinine 1.04 0.50 - 1.10 mg/dL LAB CHEMISTRY METHOD 09/23/2024 5:01 PM [facility] eGFR 55(L) >=60 mL/min/1. 73m2 LAB CHEMISTRY METHOD 09/23/2024 5:01 PM [facility] Comment:Calculation based on the??Chronic Kidney Disease Epidemiology Collaboration (CKD-EPI) equation refit??without adjustment for race. BUN/Creatinine Ratio 14.4 LAB CHEMISTRY METHOD 09/23/2024 5:01 PM EDT [facility] Albumin 3.4 3.2 - 5.0 g/dL LAB CHEMISTRY METHOD 09/23/2024 5:01 PM EDT [facility] Calcium 9.3 8.5 - 10.5 mg/dL LAB CHEMISTRY METHOD 09/23/2024 5:01 PM EDT [facility] Phosphorus 3.9 2.5 - 4.5 mg/dL LAB CHEMISTRY METHOD 09/23/2024 5:01 PM EDT [facility] Blood Venous blood specimen / Unknown Venipuncture / Unknown 09/23/2024 3:23 PM EDT 09/23/2024 3:23 PM EDT Everton Riddle MD LAB BLOOD ORDERABLES Final Re sult Performing Organization Address [facility] [place]/[facility]/ZIP Co de Phone Number [facility] [address] [place] [address], [place] [phone] * PATHOLOGIST REVIEW PROTEIN ELECTROPHORESIS (09/23/2024 3:22 PM EDT) Pathologist [facility] Pathologist Interpretation Tiesha Gonzalez MD 09/24/2024 11:05 AM EDT [facility] Blood Venous blood specimen / Unknown Venipuncture / Unknown 09/23/2024 3:22 PM EDT 09/23/2024 3:22 PM EDT Everton Riddle MD LAB BLOOD ORDERABLES Final Re sult [facility] [address] [place] [address], [place] [phone] * Peters-lambda free light chains, quantitative (09/23/2024 3:22 PM EDT) Peters Free Light Chain 1.48 0.33 - 1.94 mg/dL 09/26/2024 12:42 PM EDT [facility] Lambda Free Light Chain 2.11 0.57 - 2.63 mg/dL 09/26/2024 12:42 PM EDT [facility] Peters/Lambda FLC Ratio 0.70 0.26 - 1.65 09/26/2024 12:42 PM EDT [facility] Comment: Test performed at [facility], [address], [place], [place] ??[address] ? [phone] Anca Gallegos MD, PhD - Casualty Claim Adjuster Blood Venous blood specimen / Unknown Venipuncture / Unknown 09/23/2024 3:22 PM EDT 09/23/2024 3:22 PM EDT us Everton Riddle MD LAB BLOOD ORDERABLES Final Re sult Performing Organization Address City/[facility]/ZIP Co de Phone Number [facility] [address] [place] [address] * MADISON IFA with titer and pattern (09/23/2024 3:22 PM EDT) Pathologist [facility] MADISON Negative Negative 09/25/2024 2:04 PM EDT [facility] Blood Venous blood specimen / Unknown Venipuncture / Unknown 09/23/2024 3:22 PM EDT 09/23/2024 3:22 PM EDT us Everton Riddle MD LAB BLOOD ORDERABLES Final Re sult Performing Organization Address City/[facility]/ZIP Co de Phone Number [facility] [address] [place] [address], [place] [phone] * (ABNORMAL) Protein electrophoresis, serum (09/23/2024 3:22 PM EDT) Pathologist [facility] Total Protein 6.4 6.0 - 8.0 g/dL LAB CHEMISTRY METHOD 5 11:05 AM EDT [facility] Albumin, Serum 3.4 2.9 - 4.1 g/dL LAB CHEMISTRY METHOD 5 11:05 AM T [facility] Alpha 1 Globulin (g/dL) 0.2 0.1 - 0.5 g/dL LAB CHEMISTRY METHOD 5 11:05 AM [facility] Alpha 2 Globulin (g/dL) 1.2 0.7 - 1.5 g/dL LAB CHEMISTRY METHOD 5 11:05 AM [facility] Beta (g/dL) 1.0 0.7 - 1.5 g/dL LAB CHEMISTRY METHOD 5 11:05 AM [facility] Gamma Globulin (g/dL) 0.6(L) 0.7 - 1.9 g/dL LAB CHEMISTRY METHOD 11:05 AM [facility] SPEP Interpretation No M-Antonio seen. 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 LAB CHEMISTRY METHOD 11:05 AM [facility] Blood Venous blood specimen / Unknown Venipuncture / Unknown 09/23/2024 3:22 PM EDT 09/23/2024 3:22 PM EDT Everton Riddle MD LAB BLOOD ORDERABLES Final Re sult [facility] [address] [place] [address], * Protein, total (09/23/2024 3:22 PM EDT) Total Protein 6.4 6.0 - 8.0 g/dL LAB CHEMISTRY METHOD 09/23/2024 5:07 PM EDT [facility] Blood Venous blood specimen / Unknown Venipuncture / Unknown 09/23/2024 3:22 PM EDT 09/23/2024 3:22 PM EDT us Everton Riddle MD LAB BLOOD ORDERABLES Final Re sult [facility] [address] [place] [address], * (ABNORMAL) Complete blood count (09/23/2024 2:15 PM EDT) WBC 9.0 4.8 - 10.8 K/mcL LAB HEMETOLOGY METHOD 09/23/2024 4:48 PM EDT [facility] RBC 3.70(L) 3.80 - 4.80 M/mcL LAB HEMETOLOGY METHOD 09/23/2024 4:48 PM EDT [facility] Hemoglobin 11.0(L) 11.5 - 16.0 g/dL LAB HEMETOLOGY METHOD 09/23/2024 4:48 PM EDT [facility] Hematocrit 33.8(L) 35.0 - 47.0 % LAB HEMETOLOGY METHOD 09/23/2024 4:48 PM EDT [facility] MCV 92.6 79.0 - 98.0 FL LAB HEMETOLOGY METHOD 09/23/2024 4:48 PM EDT [facility] MCH 30.1 27.0 - 32.0 pcg LAB HEMETOLOGY METHOD 09/23/2024 4:48 PM EDT [facility] MCHC 32.5 32.0 - 37.0 g/dL LAB HEMETOLOGY METHOD 09/23/2024 4:48 PM EDT [facility] RDW 15.8(H) 11.0 - 15.0 % LAB HEMETOLOGY METHOD 09/23/2024 4:48 PM EDT [facility] Platelets 260 130 - 400 K/mcL LAB HEMETOLOGY METHOD 09/23/2024 4:48 PM EDT [facility] MPV 10.6 7.0 - 11.0 FL LAB HEMETOLOGY METHOD 09/23/2024 4:48 PM EDT [facility] NRBC 0.0 <1.0 % LAB HEMETOLOGY METHOD 09/23/2024 4:48 PM EDT [facility] NRBC Absolute 0.00 <0.10 K/mcL LAB HEMETOLOGY METHOD 09/23/2024 4:48 PM EDT [facility] Blood Venous blood specimen / Unknown Venipuncture / Unknown 09/23/2024 2:15 PM EDT 09/23/2024 2:15 PM EDT us Everton Riddle MD LAB BLOOD ORDERABLES Final Re sult [facility] [address] [place] [address], [place] [phone] * (ABNORMAL) TRANSTHORACIC ECHOCARDIOGRAM (TTE) COMPLETE (09/12/2024 12:00 PM EDT) Left Atrium Minor [place] 4.8 cm CV PACS Left Atrium Major [place] 4.8 cm CV PACS LA Area Sys [...] Volume 39 mL CV PACS MV Deceleration [place] 4.5 m/s2 CV PACS E Wave Deceleration [...] the time period is included. Historical Provider MD LAB BLOOD ORDERABLES Zaria l Result * External CT Report (08/30/2024 12:31 PM EDT) Anatomical Region Laterality Modality Computed Tomogra phy Historical Provider IMG CT PROCEDURES Final R esult * (ABNORMAL) POCT Glucose, blood (08/27/2024 9:33 AM EDT) Glucose POCT 101(H) 70 - 100 mg/dL 08/27/2024 9:34 AM EDT [facility] Blood Capillary blood specimen / Unknown 08/27/2024 9:33 AM EDT 08/27/2024 9:35 AM EDT Generic Provider Poct LAB POINT OF CARE TEST DOCKED DEVICE UNSOLICITED RESULTS Final Result [facility] [address] [place] [address], [place] [phone] * Lipid panel with reflex to direct LDL (08/26/2024 11:03 AM EDT) Cholesterol 141 0 - 200 mg/dL LAB CHEMISTRY METHOD 08/26/2024 2:15 PM EDT [facility] Triglycerides 117 0 - 150 mg/dL LAB CHEMISTRY METHOD 08/26/2024 2:15 PM EDT [facility] HDL 55 >=40 mg/dL LAB CHEMISTRY METHOD 08/26/2024 2:15 PM EDT [facility] LDL Calculated 63 0 - 100 mg/dL LAB CHEMISTRY METHOD 08/26/2024 2:15 PM EDT [facility] VLDL Cholesterol Gus 23.4 mg/dL LAB CHEMISTRY METHOD 08/26/2024 2:15 PM EDT [facility] Non HDL Chol. (LDL+VLDL) 86 <145 mg/dL LAB CHEMISTRY METHOD 08/26/2024 2:15 PM EDT [facility] Chol/HDL Ratio 2.6 0.0 - 4.4 LAB CHEMISTRY METHOD 08/26/2024 2:15 PM EDT [facility] Blood Venous blood specimen / Unknown Venipuncture / Unknown 08/26/2024 11:03 AM EDT 08/26/2024 11:03 AM EDT Elisa Romero NP LAB BLOOD ORDERABLES Final Result [facility] [address] [place] [address], [place] [phone] * Hemoglobin A1c (08/26/2024 11:03 AM EDT) Hemoglobin A1C 6.4 <6.5 % LAB CHEMISTRY METHOD 08/26/2024 1:50 PM EDT [facility] Mean Bld Glu Estim. 137 mg/dL LAB CHEMISTRY METHOD 08/26/2024 1:50 PM EDT [facility] Blood Venous blood specimen / Unknown Venipuncture / Unknown 08/26/2024 11:03 AM EDT 08/26/2024 11:03 AM EDT Kathy Perez MD LAB BLOOD ORDERABL ES Final Result [facility] [address] [place] [address], [place] [phone] * (ABNORMAL) Basic metabolic panel (08/26/2024 11:03 AM EDT) Sodium 141 133 - 145 mmol/L LAB CHEMISTRY METHOD 08/26/2024 2:12 PM [facility] Potassium 4.1 3.5 - 5.5 mmol/L LAB CHEMISTRY METHOD 08/26/2024 2:12 PM [facility] Chloride 104 96 - 110 mmol/L LAB CHEMISTRY METHOD 08/26/2024 2:12 PM [facility] CO2 26 21 - 32 mmol/L LAB CHEMISTRY METHOD 08/26/2024 2:12 PM [facility] Anion Gap 11 3 - 11 LAB CHEMISTRY METHOD 08/26/2024 2:12 PM [facility] Glucose 104(H) 70 - 100 mg/dL LAB CHEMISTRY METHOD 08/26/2024 2:12 PM [facility] BUN 18 5 - 25 mg/dL LAB CHEMISTRY METHOD 08/26/2024 2:12 PM [facility] Creatinine 1.32(H) 0.50 - 1.10 mg/dL LAB CHEMISTRY METHOD 08/26/2024 2:12 PM [facility] eGFR 41(L) >=60 mL/min/1. 73m2 LAB CHEMISTRY METHOD 08/26/2024 2:12 PM [facility] Comment:Calculation based on the??Chronic Kidney Disease Epidemiology Collaboration (CKD-EPI) equation refit??without adjustment for race. BUN/Creatinine Ratio 13.6 LAB CHEMISTRY METHOD 08/26/2024 2:12 PM [facility] Calcium 9.5 8.5 - 10.5 mg/dL LAB CHEMISTRY METHOD 08/26/2024 2:12 PM [facility] Blood Venous blood specimen / Unknown Venipuncture / Unknown 08/26/2024 11:03 AM EDT 08/26/2024 11:03 AM EDT Elisa Romero TICKET COUNTER LAB BLOOD ORDERABLES Final Result [facility] [address] [place] [address], [place] [phone] * Falls Risk Assessment (03/26/2024) [facility] Falls Risk Assessment Abstracted Historical Provider MD HEALTH MAINTENANCE Final Result * Depression Screening (03/26/2024) [facility] Depression Screening Abstracted Historical Provider MD HEALTH MAINTENANCE Final Result * Diabetes Foot Exam (12/04/2023) [facility] Diabetes: Annual Foot Exam Abstracted Historical Provider MD HEALTH MAINTENANCE Final Result * Diabetes Eye Exam (11/28/2023) [facility] Diabetes: Annual Retina Eye Exam Abstracted Comment:External Completion of test per patient (Patient reports normal results) Historical Provider MD HEALTH MAINTENANCE Final Result from Last 3 Months or Most Recently Relevant to Health Maintenance Insurance [employer] MEDICARE Member Subscriber Plan / Payer (Ef fective 2012-Present) Name:Shea Ramirez Relation to Subscriber:Self Name:Shea Ramirez Payer ID:[id number] Group ID:[id number] Type:Not on file Address: [address] [facility] [place] [id number] Care Teams Deployment Technician Relationship Specialty Start Date End Date Kathy Perez MD [address] [place] [id number] PCP - General Internal Medicine 07/22/24
--- OUTSIDE RECORDS SUMMARY | 2024-10-30 11:02 | XMS_ITS | Clinical Summary ---
Author Organization [facility] Address [address] [place] [address] Care Team Providers Care Low Pressure Kettle Operator Name Role Phone Pito Thompson MD Primary Care Provider [phone] Allergies No known active allergies Medications aspirin enteric coated (ECOTRIN LOW STRENGTH) 81 MG EC tabletIndication s:Coronary artery disease involving [place] heart, unspecified vessel or lesion type, unspecified [...] Health Maintenance Due Date Last Done Comments DTaP/Tdap/Td Vaccines (1 - Tdap) 10/08/1964 Pneumococcal Vaccines 50+ (1 of 1 - PCV) 1994 Zoster (Shingles) Vaccine (1 of 2) 1994 DXA Bone Density (Females,Ag es 65 and older) 2009 RSV Vaccine 60 years and old er and Patients (1 - 1-dose 75+ series) 10/08/2019 COVID-19 Vaccine (2023-2 5 season) 2024 Influenza Vaccine 01/17/2025 Hepatitis B Vaccines Aged Out No long er eligible based on patient's age to complete this topic Insurance [facility] MEDIC[facility] OUT OF NETWORK Advance Directives * Full Code (Latest Code Status on File) Date Activated Date Inactivated Comments 07/24/2021 9:24 PM Care Teams Low Pressure Kettle Operator Relationship Specialty Start Date End Date Pito Thompson MD [address] [place] [address] PCP - General 07/25/21
--- OUTSIDE RECORDS SUMMARY | 2024-10-30 11:02 | XMS_ITS | Data Portability ---
Author Organization [employer] Address [address] [place] [id number] Care Team Providers Care Bank Vault Attendant Name Role Phone [facility] Referring Provider [facility] OTHER Assessment Encounter Date Assessment Date Assessment LastModified by Organization Details LastModified Time 04/20/2024 04/20/2024 I provided real -time medical direction via phone for this encounter and was available for additional phone-based assistance as needed. I have reviewed and agree with the Assessment and Plan as documented by the Records Administrator. Patient given the opportunity to ask questions. [...] on metoprolol to for rate control. Per shell core and molding supervisor on the scene, vital signs are stable [...] have any evidence of volume overload per shell core and molding supervisor on the scene. She has no evidence [...] respiratory specimen 2022 023 [email or web address] Main - [facility], [address] [place] [address], [phone] 3 20:04:39 rapid flu (A+B) 2022 023 [email or web address] Main - [facility], [address] [place] [address], [phone] 3 20:04:40 rapid strep group A, throat 2022 023 [email or web address] Main - [facility], [address] [place] [address], [phone] 3 20:04:38 culture, urine 2022 023 CLEMENT [facility] (Centralized Electronic Ordering - All Locations), Patient Can Go To The Location Of Their Choice, [id number] 3 07:41:06 Referral None recorded. Procedures None recorded. Surgeries None recorded. Imaging None recorded. Medication Orders Levaquin 500 mg tablet 2022 023 [email or web address] [facility], [address] [place] [address], [place], [address], 3 13:34:52 Patient TargetsNo targets recorded. Patient InstructionsNo instructions recorded. Reason for Referral None Reported. Results Created Date Observation Date Name Description Value Unit Range Abnormal Flag Note LastModifiedBy Organization Detail LastModifiedTime 09/28/19 23 09/27/2022 URINE CULTU RE specimen description URINE Not Available [facility] (Centralized Electronic Ordering - All Locations) Patient Can Go To The Location Of Their Choice, [id number] 09/29/2022 07:41:06 09/28/19 23 09/27/2022 URINE CULTU RE special requests NONE Not Available [facility] (Centralized Electronic Ordering - All Locations) Patient Can Go To The Location Of Their Choice, [facility] 09/29/2022 07:41:06 09/28/19 23 09/29/2022 URINE CULTU RE culture NO GROWTH Not Available [facility] (Centralized Electronic Ordering - All Locations) Patient Can Go To The Location Of Their Choice, [facility] 09/29/2022 07:41:06 09/28/19 23 09/29/2022 URINE CULTU RE report status FINAL 2022 Not Available [facility] (Centralized Electronic Ordering - All Locations) Patient Can Go To The Location Of Their Choice, [facility] 09/29/2022 07:41:06 06/17/20 23 06/17/2023 rapid strep group A, throa t Strep negati ve Not Available [facility] ed [address] [place] [address], [address] [place] [address] 06/17/2023 20:04:20 06/17/20 23 06/17/2023 rapid flu (A+B) Flu negati ve Not Available [facility] ed [address] [place] [address], [address] [place] [address] 06/17/2023 20:04:18 06/17/20 23 06/17/2023 rapid SARS CoV 2 Ag, QL IA, respi rator y speci men rapid SARS CoV 2 Ag, QL IA, respiratory specimen negati ve Not Available [facility] ed [address] [place] [address], [address] [place] [address] 06/17/2023 20:04:15 Result Notes None recorded. Medical Equipment None Reported. Allergies Allergen ID Allergen Name Allergen Category Reaction Reaction Severity Criticality Documentation Date Start Date Code Code System Note Provider Name and Address Organization Details Recorded Time 7839 Product containin g penicilli n (product) medicatio n Not available Not available Not available 04/16/2024 60431 8001 SNOMED Not Available [facility] - production [...] Updated DateTime 3 16 /min 162.56 cm 14502.5 6 g 90 /min 96 % 96 % 99.5 [degF] 143 mm[Hg] 68 mm[Hg] Not Available [facility] - production 3 19:48:26 Date Recorded Body weight Respiratory rate Heart rate Body height Body temperature Oxygen saturation Oxygen saturation in Arterial blood by Pulse oximetry Systolic blood pressure Diastolic blood pressure Provider Name and Address Organization Details Last Updated DateTime 4 90846.5 6 g 18 /min 111 /min 162.56 [...] % 98 % 95.7 [degF] 73 /min 45828.5 6 g 16 /min 125 mm[Hg] 67 [...] [id number] Praveen Valdovinos MD Main - [facility] [address] [place] [phone] 09/27/2022 13:30:25 09/29/2022 10:29:50 Acute urinary tract infection 700194284 N39.0 [id number] Petra Elmore MD Main - [facility] [address] [place] [phone] 06/17/2023 19:48:24 06/20/2023 12:24:39 Upper respiratory infection 21487254 J06.9 Evaluation in the field was performed by my shell core and molding supervisor colleague, as noted above, I provided real-time [...] shortness of breath, cough, chest pain, fever. [id number] Solange Casas MD [employer] [address] [place] [phone] 04/20/2024 14:23:19 04/20/2024 19:15:29 Decreased urine output 323394319 R34 Chronic ki dney disease stage 3 833880191 N18.30 Tachycardia 5199303 R00. 0 Health Concerns Section Related Observation LastModified by Organization Detai ls LastModified Time None Recorded Concern Status LastModified by Organization Details LastModified Time None Recorded Advance Directives Directive None Recorded Payers Insurance Date Sequence Insurance Name Policy Number Policy Wagner Covered Member ID Wagner Member ID Guarantor Name 06/17/2023 1 [facility] - DOS PRIOR TO 2022 - DUAL ELIGIBLE (MEDICARE REPLACEMENT/ADV ANTAGE - HMO) Shea Ramirez [id number] Shea Ramirez 04/20/2024 1 [facility] - DOS ON OR AFTER 2022 - DUAL ELIGIBLE - [facility] OPTIONS AND ONE CARE (MEDICARE REPLACEMENT/ADV ANTAGE - HMO) Shea Ramirez [id number] Shea Ramirez Notes Date Note Type Note Provider Name [...] Member denies F/c/n/v/d Praveen Valdovinos MD [address] [facility],[address], [place], [address], [employer] 09/27/2022 13:35:12 023 text/ht ml HPI: Member [...] process visit. ................................... ................................... ................................... ................................... . Records Administrator Note From Max Clemens: Pt reports dry [...] . Disposition: Fulfilled Petra Elmore MD [address] [facility], [place], [address], [facility] - [facility] Real-[facility] 06/17/2023 20:04:49 024 text/ht ml HPI: mbr with multiple complaints, states experienced SOB last night where she had decided to take a diuretic, denies any Urine output at this time questioning retention , but does mention changing briefs multiple times over night, denies any Abdominal pain pressure or discomfort, no LE edema CP/N/V. per mbr B/P 153/78 HR 111. mbr requesting [facility] for evaluation.Protocol Used: Urinary SymptomsProtocol-Based Disposition: Consider [facility], FINANCING ANALYST, MD/REAL PROPERTY APPRAISER triage, PCP, or ED /Urgent Care Visit [...] Comments: Reviewed HPI SEGMD: Visit closed by [facility] end of shift before medic note transferred into [facility], so I entered it below: SummarySmartcare visit [...] this was present yesterday in visit with REAL PROPERTY APPRAISER as well. Pt afebrile. Lung sounds clear bilaterally. Pt concerned about possible cloudy urine as well. Pt was unable to provide urine specimen for testing. Consulted with [facility] Dr. Casas who advised continuing to monitor symptoms. Reviewed red flags for ED. Pt education provided.Services ProvidedPatient EducationDispositionFulfilledWas patient sent to ED?[facility] consulted on the case?Yes - Solange Casas MD [address] [facility],[address], [place], [address], [employer] - Welcome Real-[facility] 04/23/2024 15:04:20 OBGyn Episode No OBEpisode recorded.
--- OUTSIDE RECORDS SUMMARY | 2024-10-30 11:02 | XMS_ITS | Encounter Summary ---
Author Organization [facility] Address [address] [place] [address] Care Team Providers Care Weld Engineer Name Role Phone Kathy Perez MD Primary Care Prov ider Encounter Details Date Type Department Care Team (Late st Contact Info) Description 10/24/2024 Telephone Adult Medicine [address] [phone] Kathy Perez MD [address] [place] [address] Social History Tobacco Use Types Packs/Day Years [...] for your loved ones. For example, child protective services social worker or elderly care for an older [...] Upcoming Encounters Date Type Department Care Team ([facility] st Contact Info) Description 12/18/2024 11:30 AM EDT Office Visit Urogynecology [address] [phone] Eve Juan MD [address] [facility] [address] [place] [address] 01/28/2025 1:15 PM EDT Office Visit Adult Medicine [address] [phone] Kathy Perez MD [address] [place] [phone] documented as of this encounter Visit Diagnoses Not on filedocumented in this encounter Care Teams Weld Engineer Relationship Specialty Start Date End Date Kathy Perez MD [address] [place] [address] PCP - General Internal Medicine 07/22/24 documented as of this encounter
--- OUTSIDE RECORDS SUMMARY | 2024-10-30 11:02 | XMS_ITS | Clinical Summary ---
Author Organization [facility] Address [address] [address] Phone Care Team Providers Care Mixer Operator Vacuum Pan Salt Name Role Phone Kathy Christopher MD Primary [...] 1 TAB DAILY X 14 DAYS Active valACYclovir (VALTREX) 1 g tablet TAKE 2 TABLETS BY MOUTH 2 TIMES DAILY. (SEPARATE DOSES BY ~12 HOURS). USE FOR 1 DAY WITH EACH FLARE 5 Active metoprolol tartrate (LOPRESSOR) 50 MG tablet Take 50 mg by mouth in the morning and 50 mg in the evening. 5 Active Trelegy Ellipta 200-62.5-25 MCG/ACT aerosol powder INHALE 1 PUFF BY MOUTH DAILY FOR 30 DAYS 5 Active nitrofurantoin, macrocrystal-mo nohydrate, (MACROBID) 100 MG capsule 5 Active phenazopyridine (PYRIDIUM) 100 MG tablet Take 100 mg by mouth 3 (three) times a day if needed for bladder spasms Active ciprofloxacin (Cipro) 250 MG tablet Take 1 tablet (250 mg total) by mouth in the morning and 1 tablet (250 mg total) in the evening. Do all this for 5 days. 10 tablet 5 025 Active Problems Problem Noted Date Diagnosed Date Stage 3a chronic kidney disease 10/16/2024 Type 2 diabetes mellitus wit h diabetic [...] Gastroparesis 07/17/2012 Overview (09/19/2024): Dr. Stephenson at [address] [place] [address] drive Gastroesophageal reflux disease 07/17/2012 Encounters Date Type Department Care Team Description 10/16/2024 2:15 PM EDT Office Visit [facility] 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) 09/30/2024 Telephone [facility] [address] [facility] [address] [place] [address] Elisa Kiser MA 09/30/2024 Telephone [facility] [address] [phone] Elisa Kiser MA 09/27/2024 Orders Only [facility] [address] [phone] Everton Riddle MD Stage 3b chronic kidney disease (HCC); Type 2 diabetes mellitus with diabetic chronic kidney disease (HCC); Renal osteodystrophy 09/25/2024 Office Communication [facility] [address] [phone] Fernanda Oliver 09/23/2024 Orders Only [facility] [address] [phone] Everton Riddle MD 09/20/2024 10:30 AM EDT Office Visit [facility] [address] [address] Everton Riddle MD Stage 3b chronic kidney disease (HCC) (Primary Dx); Type 2 diabetes mellitus with diabetic chronic kidney disease (HCC); Renal osteodystrophy from Last 3 Months Immunizations Immunization Administration Dates Next Due Influenza, Trivalent, Adjuvanted 024,02/28/2023,03/28/2022,03/22/2020 ,03/13/2019,03/02/2018,03/01/2017, 6 Influenza, Unspecified 03/10/2022,2020,02/24/2020,04/06/2015 ,05/06/2014,03/05/2013 uTaP SARS-COV-2 09/09/2020 Pfizer SARS-COV-2 04/28/2021 Pneumococcal Conjugate [...] Sign Reading Time Taken Comments Blood Pressure 159/82 10/16/2024 2:02 PM EDT Pulse 58 10/16/2024 2:02 PM EDT Temperature - - Respiratory Rate - - Oxygen Saturation 99% 10/16/2024 2:02 PM EDT Inhaled Oxygen Concentration - - Weight 85.3 kg (188 lb) 10/16/2024 2:02 PM EDT Height - - Body Mass Index - - Plan of Treatment Upcoming Encounters Date Type Department Care Team (Late st Contact Info) Description 10/30/2024 2:45 PM EDT Office Visit [facility] [address] [phone] Everton Riddle MD [address] [phone] 04/15/2025 1:45 PM EDT Office Visit [facility] [address] [phone] Everton Riddle MD [address] [phone] Health Maintenance Due Date Last Done Comments Diabetes: Ophthalmology Exam 09/10/2024 06/27/2014 Diabetes: Pedal Pulse Checked 09/10/2024 Diabetes: Sensory Foot Exam 09/10/2024 Diabetes: Visual Foot Exam 09/10/2024 Diabetes: Hemoglobin A1C 11/26/2024 08/26/2024, 02/0 11/2021 Pneumococcal Vaccine: 50+ Years Completed 03/30/2016, 04/28/2014, [...] ORDERABLES Final Re sult Performing Organization Address [facility] Co de Phone Number [facility] [address] [place] [address] * (ABNORMAL) Urine Albumin / Creatinine Ratio (09/23/2024 3:26 PM EDT) Creatinine, Urine 112.0 mg/dL [facility] Microalbumin Urine Random 81.4(H) 0.0 - 29.0 mg/L [facility] Microalbumin/Cre atinine Ratio 73(H) <30 mg/g creat [facility] Urine (Urine, Clean Catch) 09/23/2024 3:26 PM EDT 09/23/2024 4:23 PM EDT Everton Riddle MD LAB URINE ORDERABLES Final Re sult Performing Organization Address [facility] de Phone Number [facility] [address] [place] [address] * (ABNORMAL) Urinalysis Reflex Microscopic (09/23/2024 3:26 PM EDT) Specific Talent 1.016 1.003 - 1.030 [facility] [...] [facility] Bilirubin Urine Negative Negative [facility] Blood Urine Negative Negative [facility] [...] ORDERABLES Final Re sult Performing Organization Address [facility]/ZIP Co de Phone Number [facility] [address] [place] [address] * Hep C Antibody (09/23/2024 3:23 PM EDT) Hep C Ab Negative Negative [facility] 09/23/2024 3:23 PM EDT 09/23/2024 4:23 PM EDT Everton Riddle MD LAB BLOOD ORDERABLES Final Re sult Performing Organization Address City/[facility]/ZIP Co de Phone Number [facility] [address] [place] [address] * Hepatitis B Surface AB (09/23/2024 3:23 PM EDT) Hep B Surface Antibody Negative Negative [facility] Hep B Surface Ab <3.1 mIU/mL [facility] 09/23/2024 3:23 PM EDT 09/23/2024 4:23 PM EDT Narrative GAMAL - 09/23/2024 6:14 PM EDT >=10 mIU/mL is considered to be consistent with immunity. Everton Riddle MD LAB [id number] SOLICITED RESULTS Final Result Performing Organization Address [facility] Co de Phone Number [facility] [address] [place] [address] * Hepatitis B Surface Ag w/Reflex Confirmation (09/23/2024 3:23 PM EDT) Hep B Surface Ag Negative Negative [facility] 09/23/2024 3:23 PM EDT 09/23/2024 4:23 PM EDT Narrative GARFIELD - 09/23/2024 6:25 PM EDT Over the counter supplements containing high doses of biotin may interfere with this assay. ??If interference is suspected, patients shoud be retested after refraining from biotin supplements for 72 hours. Everton Riddle MD LAB BLOOD ORDERABLES Final Re sult Performing Organization Address [facility] de Phone Number [facility] [address] [place] [address] * Hepatitis B core antibody, IgM (09/23/2024 3:23 PM EDT) Hep B Core IgM Negative Negative [facility] [...] ORDERABLES Final Re sult Performing Organization Address [facility] Co de Phone Number [facility] [address] [place] [address] * Vitamin D 25 Hydroxy (09/23/2024 3:23 PM EDT) Vitamin D, 25-OH, Total 48.9 30.0 - 80.0 ng/mL [facility] Blood (Blood, Venous) 09/23/2024 3:23 PM EDT 09/23/2024 4:23 PM EDT Everton Riddle MD LAB BLOOD ORDERABLES Final Re sult Performing Organization Address [facility] de Phone Number [facility] [address] [place] [address] * C3 Complement (09/23/2024 3:23 PM EDT) C3 Complement 176 88 - 201 mg/dL [facility] Blood (Blood, Venous) 09/23/2024 3:23 PM EDT 09/23/2024 4:23 PM EDT us Everton Riddle MD LAB BLOOD ORDERABLES Final Re sult Performing Organization Address [facility] de Phone Number [facility] [address] [place] [address] * (ABNORMAL) C4 Complement (09/23/2024 3:23 PM EDT) C4 Complement 50(H) 16 - 47 mg/dL [facility] Blood (Blood, Venous) 09/23/2024 3:23 PM EDT 09/23/2024 4:23 PM EDT us Everton Riddle MD LAB BLOOD ORDERABLES Final Re sult Performing Organization Address City/[facility] Co de Phone Number [facility] [address] [place] [address] * PTH, Intact (09/23/2024 3:23 PM EDT) [facility] PTH 41.7 18.5 - 88.0 pcg/mL [facility] Blood (Blood, Venous) 09/23/2024 3:23 PM EDT 09/23/2024 4:23 PM EDT Everton Riddle MD LAB BLOOD ORDERABLES Final Re sult Performing Organization Address [facility] Co de Phone Number [facility] [address] [place] [address] * (ABNORMAL) Magnesium (09/23/2024 3:23 PM EDT) [facility] Magnesium 1.6(L) 1.9 - 2.6 mg/dL [facility] Blood (Blood, Venous) 09/23/2024 3:23 PM EDT 09/23/2024 4:23 PM EDT Everton Riddle MD LAB BLOOD ORDERABLES Final Re sult Performing Organization Address [facility] de Phone Number [facility] [address] [place] [address] * (ABNORMAL) Renal Function Panel (09/23/2024 3:23 PM EDT) [facility] Sodium 144 133 - 145 mmol/L [facility] [...] MD LAB BLOOD ORDERABLES Final Re sult [facility] [address] [place] [address] * Protein Electrophoresis Interpretation, Serum (09/23/2024 3:22 PM EDT) Pathologist Interpretation Tiesha Gonzalez MD [facility] 09/23/2024 3:22 PM EDT 09/23/2024 4:23 PM EDT Everton Riddle MD LAB [id number] SOLICITED RESULTS Final Result Performing Organization Address City/[facility]/ZIP Co de Phone Number [facility] [address] [place] [address] * Free [place] Lambda Light Chain, QN (09/23/2024 3:22 PM EDT) Free [place] Lt Chains, S 1.48 0.33 - 1.94 mg/dL [facility] Free Lambda Lt Chains, S 2.11 0.57 - 2.63 mg/dL [facility] [place]/Lambda LC Ratio 0.70 0.26 - 1.65 [facility] Comment: Test performed at [facility], [address], [place], [place] ??[address] ? [phone] Anca Gallegos MD, PhD - Supervisor [employer] 09/23/2024 3:22 PM EDT 09/23/2024 5:21 PM EDT Everton Riddle MD LAB BLOOD ORDERABLES Final Re sult Performing Organization Address City/[facility]/ZIP Co de Phone Number [facility] [address] [place] [address] * [place] IFA Screen s/Reflex to Titer and Pattern (09/23/2024 3:22 PM EDT) [facility] [place] Negative Negative [facility] 09/23/2024 3:22 PM EDT 09/23/2024 4:23 PM EDT Everton Riddle MD LAB BLOOD ORDERABLES Final Re sult Performing Organization Address City/[facility]/ZIP Co de Phone Number [facility] [address] [place] [address] * (ABNORMAL) Protein electrophoresis, serum (09/23/2024 3:22 PM EDT) [facility] Total Protein 6.4 6.0 - 8.0 g/dL [facility] Albumin 3.4 2.9 - 4.1 g/dL [facility] Usicj-5-Afkydrpq 0.2 0.1 - 0.5 g/dL [facility] Zofxe-3-Aabumqus 1.2 0.7 - 1.5 g/dL [facility] [...] ORDERABLES Final Re sult Performing Organization Address [facility] Co de Phone Number [facility] [address] [place] [address] * Protein, total (09/23/2024 3:22 PM EDT) Total Protein 6.4 6.0 - 8.0 g/dL [facility] 09/23/2024 3:22 PM EDT 09/23/2024 4:23 PM EDT Everton Riddle MD LAB BLOOD ORDERABLES Final Re sult Performing Organization Address [facility] Co de Phone Number [facility] [address] [place] [address] * (ABNORMAL) CBC (09/23/2024 2:15 PM EDT) WBC 9.0 4.8 - 10.8 [facility] RBC 3.70(L) 3.80 - 4.80 M/[facility] Hgb 11.0(L) 11.5 - 16.0 g/dL [facility] Hematocrit 33.8(L) 35.0 - 47.0 % [facility] MCV 92.6 79.0 - 98.0 FL [facility] MCH 30.1 27.0 - 32.0 pcg [facility] MCHC 32.5 32.0 - 37.0 g/dL [facility] RDW 15.8(H) 11.0 - 15.0 % [facility] Platelets 260 130 - 400 K/[facility] MPV 10.6 7.0 - 11.0 FL [facility] nRBC Count 0.0 <1.0 % [facility] NRBC Absolute 0.00 <0.10 K/[facility] Blood (Blood, Venous) 09/23/2024 2:15 PM EDT 09/23/2024 4:25 PM EDT us Everton Riddle MD LAB BLOOD ORDERABLES Final Re sult GAM[facility] [address] [place] [address] from Last [address] [place] [address] ([id number]) JESSICA REN [phone] Care Teams Mixer Operator Vacuum Pan Salt Relationship Specialty Start Date End Date Kathy Christopher MD [address] [place] [address] PCP - General 09/10/24
--- OUTSIDE RECORDS SUMMARY | 2024-10-30 11:02 | XMS_ITS | Clinical Summary ---
Author Organization [facility] Address [address] [place] [address] Care Team Providers Care Director Export Name Role Phone Kathy Christopher MD Primary [...] age to complete this topic Care Teams Director Export Relationship Specialty Start Date End Date Kathy Christopher MD [address] [place] [address] PCP - General Internal Medicine 09/14/23
== END 2024-10-30 10:56 | disposition home or self-care (01) ==
LOC: HO.HUSH 10:06
PROVIDERS: PCP Internal Medicine; Visit Provider Nurse Practitioner Family
DX: R39.9 Unspecified symptoms and signs involving the genitourinary system (principal); R33.9 Retention of urine, unspecified; R30.0 Dysuria
CPT/HCPCS: 99214; G2211

== ENCOUNTER → 2024-10-30 10:06 | Outpatient (BNVA) | payer OTHER, SELFPAY | PROVIDERS: PCP Internal Medicine; Visit Provider Nurse Practitioner Family | DX: R39.12 Poor urinary stream (principal); N30.20 Other chronic cystitis without hematuria; R33.9 Retention of urine, unspecified; R30.0 Dysuria; N95.2 Postmenopausal atrophic vaginitis; Z87.898 Personal history of other specified conditions | CPT/HCPCS: 51798; 81003; 99212 ==

== ENCOUNTER → 2024-11-06 10:44 | Outpatient (BNVA) | payer OTHER, SELFPAY | PROVIDERS: PCP Internal Medicine; Visit Provider Nurse Practitioner Family | DX: R33.9 Retention of urine, unspecified (principal) | CPT/HCPCS: 51798 ==

== ENCOUNTER 2024-11-28 14:06 | Outpatient (AMB) | payer OTHER, SELFPAY ==
[2024-11-28 14:24] VITALS: BP 130/78; PULSE 96; TEMP 36.3; O2SAT 94; BMI 31.4
--- NOTE | 2024-11-28 14:24 | MHC.OFFWIV ---
Intake Vital Signs 11/28/24 14:24 Height 5 ft 4 in Weight 183 lb 2 oz BMI 31.4 BP 130/78 Blood Pressure Location Lt brachial Position Sitting Pulse 96 Pulse Source Pulse Oximeter Temp 97.4 F Temp Source Oral Pulse Oximetry (%) 94 Oxygen Delivery Method Room Air Intake Visit Reasons: EP Sore throat Patient Tobacco Use Status: Former Tobacco user Allergies amoxicillin [Augmentin] Allergy (Mild, Verified 11/28/24 14:35) Rash clavulanic acid [From Augmentin] Allergy (Mild, Verified 11/28/24 14:35) RASH HPI HPI Comments History of Present Illness Details Patient is patient is an 79-year-old female complaining of a sore throat for 2 days. She says the left side hurts more than the right side. She states she has had some dizziness and headaches but denies any ear pain, head congestion, fatigue beyond her baseline, fevers, cough, shortness of breath or wheezing. She tells me she does use Flonase once a day and does take a daily allergy pill. [facility] Medical History Obesity (BMI 30.0-34.9) Chronic respiratory failure Asthma-COPD overlap syndrome Incontinence in female History of adenomatous polyp of colon Pneumonitis Bronchopneumonia Hypogammaglobulinemia Chronic rhinitis Dizziness Headache Hyperlipidemia HTN (hypertension) Diabetes COPD (chronic obstructive pulmonary disease) Surgical History S/P right coronary artery (RCA) stent placement H/O colonoscopy History of foot surgery History of toe surgery History of bunionectomy Family History Mother No problems noted. Father No problems noted. 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 services: Yes (grand daughter floor installer) Alcohol intake: never Patient Tobacco Use Status: Former Tobacco user Tobacco use type: Cigarette Advance Directives Date on File: 10/03/23 service: No Current occupational status: retired Sexual orientation: Straight/Heterosexual Gender identity: Female Review of Systems Const All systems reviewed & are unremarkable except as noted in HPI and below Physical Exam Vital Signs: Last Vital Signs Temp 97.4 F 11/28/24 14:24 Pulse 96 11/28/24 14:24 BP 130/78 11/28/24 14:24 Pulse Ox 94 11/28/24 14:24 Oxygen Delivery Method Room Air 11/28/24 14:24 BMI result Body Mass Index 31.4 Const General: cooperative, healthy appearing, comfortable and no acute distress Orientation/consciousness: patient oriented x3 Limitations: no limitations HEENT Head: Yes normal to inspection Ears: hearing grossly normal bilaterally, external ears normal and TM abnormal wth effusion serous (Left> right) General nose exam: Normal external nose present, Normal nares present and No nasal discharge present Face and sinus: Yes normal facial exam and Yes sinuses nontender Mouth: Normal oral and palatal mucosa present and moist mucous membranes Throat: Yes tonsils normal, Yes uvula midline and Yes posterior oropharynx abnormal (Erythema) Eyes General: appearance normal, both eyes and all related structures Neck Neck: Yes normal visual inspection Resp Effort & Inspection: normal respiratory effort, able to speak in complete sentences, no respiratory distress, not tachypneic, no tripod positioning and no use of accessory muscles Skin General skin exam: no rashes or lesions noted Neuro General: patient oriented x3 Extrem General: Yes normal to inspection and Yes no clubbing, cyanosis or edema Results AMB Rapid Strep AMB Rapid Strep Negative Last Edit by Marti Lawson CMA on 11/28/24 14:41 Results Reviewed Results Reviewed: Laboratory Last Values Strep Scn Rapid Clinic Negative 11/28/24 14:38 Assessment & Plan Assessment & Plan (1) Acute effusion of left ear: Code(s): H65.192 - Other acute nonsuppurative otitis media, left ear Plan: - Rapid strep negative - vital signs are stable and patient well-appearing physical exam is remarkable for only fluid behind both TMs, left side is worse than the right. - recommended she increase her Flonase to twice daily for the next week and take Benadryl nightly for the next 2-3 nights. - no signs of infection in the ears right now but if things get worse, she should return to the clinic so we can reexamine the ear as it certainly could turn into an infection. Orders: Orders AMB Rapid Strep Screen Today Z13.9 - Encounter for screening, unspecified Coding Level of Care Code New Pt Level 3 (64491) Diagnoses Acute effusion of left ear H65.192
--- OUTSIDE RECORDS SUMMARY | 2024-11-28 16:40 | XMS_ITS | Data Portability ---
Author Organization [facility] Address [address] [place] [address] Care Team Providers Care Milk Hauler Name Role Phone [facility] Referring Provider [phone] [facility] OTHER Assessment Encounter Date Assessment Date Assessment LastModified by Organization Details LastModified Time 04/20/2024 04/20/2024 I provided real -time medical direction via phone for this encounter and was available for additional phone-based assistance as needed. I have reviewed and agree with the Assessment and Plan as documented by the Aluminum Hydroxide Process Operator. Patient given the opportunity to ask [...] on metoprolol to for rate control. Per proposal engineer on the scene, vital signs are stable [...] have any evidence of volume overload per proposal engineer on the scene. She has no evidence [...] QL IA, respiratory specimen 2022 023 [email or web address] [facility], [address] [place] [address], [phone] 3 20:04:39 rapid flu (A+B) 2022 023 [email or web address] [facility], [address] [place] [address], [phone] 3 20:04:40 rapid strep group A, throat 2022 023 [email or web address] [facility], [address] [place] [address], [phone] 3 20:04:38 culture, urine 2022 023 CLEMENT [facility] (Centralized Electronic Ordering - All Locations), Patient Can Go To The Location Of Their Choice, [id number] 3 07:41:06 Referral None recorded. Procedures None recorded. Surgeries None recorded. Imaging None recorded. Medication Orders Levaquin 500 mg tablet 2022 023 [email or web address] [facility], [address] [place] [address], [place], [address], 3 13:34:52 Patient TargetsNo targets recorded. Patient InstructionsNo instructions recorded. Reason for Referral None Reported. Results Created Date Observation Date Name Description Value Unit Range Abnormal Flag Note LastModifiedBy Organization Detail LastModifiedTime 09/28/1909/27/2022 URINE CULTU RE specimen description URINE Not Available [facility] (Centralized Electronic Ordering - All Locations) Patient Can Go To The Location Of Their Choice, [id number] 09/29/2022 07:41:06 09/28/19 23 09/27/2022 URINE CULTU RE special requests NONE Not Available [facility] (Centralized Electronic Ordering - All Locations) Patient Can Go To The Location Of Their Choice, [id number] 09/29/2022 07:41:06 09/28/19 23 09/29/2022 URINE CULTU RE culture NO GROWTH Not Available [facility] (Centralized Electronic Ordering - All Locations) Patient Can Go To The Location Of Their Choice, [facility] 09/29/2022 07:41:06 09/28/1909/29/2022 URINE CULTU RE report status FINAL 2022 Not Available [facility] (Centralized Electronic Ordering - All Locations) Patient Can Go To The Location Of Their Choice, [facility] 09/29/2022 07:41:06 06/17/20 23 06/17/2023 rapid strep group A, throa t Strep negati ve Not Available [facility] ed [address] [place] [address], [address] [place] [address] 06/17/2023 20:04:20 06/17/20 23 06/17/2023 rapid flu (A+B) Flu negati ve Not Available [facility] ed [address] [place] [address], [address] [place] [address] 06/17/2023 20:04:18 06/17/20 23 06/17/2023 rapid SARS CoV 2 Ag, QL IA, respi rator y speci men rapid SARS CoV 2 Ag, QL IA, respiratory specimen negati ve Not Available [facility] [address] [place] [address], [address] [place] [address] 06/17/2023 20:04:15 Result Notes None recorded. Medical Equipment None Reported. Allergies Allergen ID Allergen Name Allergen Category Reaction Reaction Severity Criticality Documentation Date Start Date Code Code System Note Provider Name and Address Organization Details Recorded Time 7839 Product containin g penicilli n (product) medicatio n Not available Not available Not available 04/16/2024 38100 8001 SNOMED Not Available [facility] - production [...] Available N ot Available Vitals Date Recorded Oxygen saturation Oxygen saturation in Arterial blood by Pulse oximetry Body temperature Heart rate Body weight Respiratory rate Systolic blood pressure Diastolic blood pressure Provider Name and Address Organization Details Last Updated DateTime 3 98 % 98 % 95.7 [degF] 73 /min 36709.5 6 g 16 /min 125 mm[Hg] 67 mm[Hg] Not Available [facility] - production 3 13:30:35 Date Recorded Body weight Respiratory rate Heart rate Body height Body temperature Oxygen saturation Oxygen saturation in Arterial blood by Pulse oximetry Systolic blood pressure Diastolic blood pressure Provider Name and Address Organization Details Last Updated DateTime 4 83341.5 6 g 18 /min 111 /min 162.56 cm 98.2 [degF] 94 % 94 % 117 mm[Hg] 66 mm[Hg] Not Available [facility] - production 4 14:23:22 Date Recorded Respiratory rate Body height Body weight Heart rate Oxygen saturation Oxygen saturation in Arterial blood by Pulse oximetry Body temperature Systolic blood pressure Diastolic blood pressure Provider Name and Address Organization Details Last Updated DateTime 3 16 /min 162.56 cm 46312.5 6 g 90 /min 96 % 96 % 99.5 [degF] 143 mm[Hg] 68 mm[Hg] Not Available [facility] - production 3 19:48:26 Social History None recorded. Functional Status None [...] [id number] Praveen Valdovinos MD Main - [facility] [address] [place] [phone] 09/27/2022 13:30:25 09/29/2022 10:29:50 Acute urinary tract infection 356099371 N39.0 [id number] Petra Elmore MD Main - [facility] [address] [place] [phone] 06/17/2023 19:48:24 06/20/2023 12:24:39 Upper respiratory infection 93043626 J06.9 Evaluation in the field was performed by my proposal engineer colleague, as noted above, I provided real-time [...] shortness of breath, cough, chest pain, fever. [id number] Solange Casas MD [facility] [address] [place] [phone] 04/20/2024 14:23:19 04/20/2024 19:15:29 Decreased urine output [id number] R34 Chronic ki dney disease stage 3 442072212 N18.30 Tachycardia 2923263 R00. 0 Health Concerns Section Related Observation LastModified by Organization Detai ls LastModified Time None Recorded Concern Status LastModified by Organization Details LastModified Time None Recorded Advance Directives Directive None Recorded Payers Insurance Date Sequence Insurance Name Policy Number Policy Wagner Covered Member ID Wagner Member ID Guarantor Name 06/17/2023 1 [facility] - DOS PRIOR TO 2022 - DUAL ELIGIBLE (MEDICARE REPLACEMENT/ADV ANTAGE - HMO) Shea Ramirez [id number] Shea Ramirez 04/20/2024 1 [facility] - DOS ON OR AFTER 2022 - DUAL ELIGIBLE - FDC OPTIONS AND ONE CARE (MEDICARE REPLACEMENT/ADV ANTAGE - HMO) Shea Ramirez [id number] Shea Ramirez Notes Date Note Type Note [...] Member denies F/c/n/v/d Praveen Valdovinos MD [address] [facility],[address], [place], [address], [facility] 09/27/2022 13:35:12 023 text/ht ml HPI: Member [...] process visit. ................................... ................................... ................................... ................................... . Aluminum Hydroxide Process Operator Note From Max Clemens: Pt reports [...] . Disposition: Fulfilled Petra Elmore MD [address] [facility],[address], [place], [address], [facility] [employer] [facility] 06/17/2023 20:04:49 024 text/ht ml HPI: mbr with multiple complaints, states experienced SOB last night where she had decided to take a diuretic, denies any Urine output at this time questioning retention , but does mention changing briefs multiple times over night, denies any Abdominal pain pressure or discomfort, no LE edema CP/N/V. per mbr B/P 153/78 HR 111. mbr requesting [facility] for evaluation.Protocol Used: Urinary SymptomsProtocol-Based Disposition: Consider [facility], MERCHANDISE PRESENTATION ASSOCIATE, MD/PATROL POLICE LIEUTENANT triage, PCP, or ED /Urgent Care Visit [...] Comments: Reviewed HPI SEGMD: Visit closed by [facility] end of shift before medic note transferred [...] this was present yesterday in visit with PATROL POLICE LIEUTENANT as well. Pt afebrile. Lung sounds clear bilaterally. Pt concerned about possible cloudy urine as well. Pt was unable to provide urine specimen for testing. Consulted with [facility] Dr. Casas who advised continuing to monitor symptoms. Reviewed red flags for ED. Pt education provided.Services ProvidedPatient EducationDispositionFulfilledWas patient sent to ED?[facility] consulted on the case?Yes - Solange Casas MD [address] [place] [address],[address], [place], [address], [facility] [employer] 04/23/2024 15:04:20 OBGyn Episode No OBEpisode recorded.
== END 2024-11-28 15:18 | disposition home or self-care (01) ==
PROVIDERS: PCP Internal Medicine; Visit Provider Physician Assistant
DX: H65.192 Other acute nonsuppurative otitis media, left ear (principal); J02.9 Acute pharyngitis, unspecified

== ENCOUNTER → 2024-11-28 14:06 | Outpatient (BNVA) | payer OTHER, SELFPAY | PROVIDERS: PCP Internal Medicine; Visit Provider Physician Assistant | DX: H65.192 Other acute nonsuppurative otitis media, left ear (principal) | CPT/HCPCS: 87880; 99212 ==

== ENCOUNTER 2024-12-27 14:44 | Inpatient (IN) | payer OTHER, SELFPAY ==
[2024-12-27] VITALS (7 sets, daily range): BP systolic 101–134; BP diastolic 54–78; PULSE 83–110; RESP 16–19; TEMP 36.6–37; O2SAT 93–96
--- NOTE | ~2024-12-27 | CT_ITS ---
CLINICAL HISTORY: lower abd pain CT abdomen and pelvis with contrast Comparison: CT/SR - CT ABDOMEN PELVIS WO IV CON - 03/30/23 22:25 EDT Findings: Atelectasis. Hepatic steatosis noted. Contracted gallbladder. Lobulated bilateral renal contours. Tiny bilateral hypodense renal cysts. No urolithiasis or hydronephrosis. Scattered colonic diverticulosis without diverticulitis or colitis. Large colonic stool burden. Diffuse small bowel mural thickening more so proximally can be seen with enteritis. No bowel obstruction. Postsurgical anterior abdominal wall changes No evidence for appendicitis Calcified uterine fibroids. Prominent circumferential bladder wall thickening with stranding. Presumed marked cystic dilatation of the urethra measuring up to 2.4 cm in transverse dimension on axial with ill-defined like left anterolateral mural thickening series 2, image 74. Underlying neoplasm can not be excluded. Recommend urology consult and cystoscopy. No acute fracture. Osteopenia with diffuse multilevel spondylosis. Spondylosis pronounced at L5-S1. Similar linear radiopaque like foreign bodies along the left paraspinal at sacral region, chronic. IMPRESSION: 1. Findings concerning for cystitis. 2. Presumed urethral abnormality, please see discussion above. 3. Possible mildly diffuse enteritis. This document has been electronically signed by: Israel Dukes MD on 12/27/2024 20:13:51
--- NOTE | 2024-12-27 14:54 | ED_ITS ---
HPI - General Adult General Chief complaint: Urogenital-Female Stated complaint: IV Antibiotics Time Seen by Provider: 12/27/24 16:00 History of Present Illness HPI narrative: Patient is an 79-year-old female presented today with having pain on urination. Patient had had multiple urinary tract infection in the past. Had difficulty urinating in the past. Went to her urologist. She was instrumented. Subsequently patient developed a UTI. Was initially started on likely Keflex. Had a full course of antibiotic with urgent care. Failed outpatient treatment. Patient's cultures was sent during the initial visit. It came back that patient was resistant to cephalosporins. Wood's then started on Macrobid. Patient was on Macrobid for 2 days. No fever no chills no chest pain or shortness of breath. Patient from home. No coughing or congestion or upper respiratory symptoms. No diaphoresis. Patient has a history of UTIs in the past. Has a history of diabetes. History of vaginitis. History of cholecystectomy appendectomy. Related Data Home Medications ?Medication ?Instructions ?Recorded ?Confirmed cetirizine 10 mg tablet 10 mg PO DAILY 03/21/2012/17 nitroglycerin 0.4 mg sublingual 0.4 mg sublingual ONCE PRN Chest 03/21/20 12/27/24 tablet Pain albuterol sulfate 2.5 mg/3 mL 2.5 mg inhalation Q4H MT N wheezing 04/28/20 12/27/24 (0.083 %) solution for nebulization melatonin 10 mg tablet 10 mg PO BEDTIME PRN Sleep 0 08/19/21 12/27/24 aspirin 81 mg tablet,delayed 81 mg PO DAILY 09/02/21 0 12/27/24 release isosorbide mononitrate 30 mg 30 mg PO DAILY 09/02/21 0 12/27/24 tablet,extended release 24 hr Oxygen Home Use 09/16/22 10/08/24 nebulizers 09/16/22 10/08/24 metformin 500 mg tablet,extended 500 mg PO DAILY 10/2912/27/24 release 24 hr metoprolol tartrate 50 mg tablet 50 mg PO BID 06/17/24 12/27/24 atorvastatin 80 mg tablet 80 mg PO DAILY 06/20/2412/17 estradiol 0.01% (0.1 mg/gram) 2 g vaginal NEEDED 12/27/24 vaginal cream fluticasone fur. 200 mcg-umeclid 1 ea inhalation DAILY 12/27/24 12/27/24 62.5 mcg-vilant 25 mcg inhalat.powder (Trelegy Ellipta) furosemide 20 mg tablet 20 mg PO DAILY 12/27/2412/17 nitrofurantoin 1 cap PO BID 12/27/24 monohydrate/macrocrystals 100 mg capsule phenazopyridine 100 mg tablet 100 mg PO TID 12/27/24 0 12/27/24 Previous Rx's ?Medication ?Instructions ?Recorded cholecalciferol (vitamin D3) 50 50 mcg PO DAILY 30 day s #30 caps 04/08/20 mcg (2,000 unit) capsule fluticasone propionate 50 2 spray intranasal DAILY 30 days 08/11/22 mcg/actuation nasal #15.8 mL spray,suspension lidocaine 5 % topical patch 1 patch topical DAILY #15 ea 04/11/24 albuterol sulfate 90 mcg/actuation 2 puff PO Q4H PRN f or wheezing #1 05/14/24 aerosol inhaler ea dexlansoprazole 60 mg 60 mg PO DAILY #90 caps 06/20 02/10 capsule,biphase delayed release sennosides 8.6 mg tablet (senna) 17.2 mg (2 x 8.6 mg) PO DAILY PRN 09/11/24 constipation 90 days #180 tabs Allergies Allergy/AdvReac Type Severity Reaction Status Date / Time amoxicillin (Augmentin) Allergy Mild Rash Verified 12/27/24 14:50 clavulanic acid (From Allergy Mild RASH Verified 12/27/24 14:50 Augmentin) Review of Systems 2 Review of Systems: No fever no chills positive pain on urination Yes all other systems are reviewed and are negative [facility] Past Medical History Attestation statement: The following information was validated with the patient. Medical History Obesity (BMI 30.0-34.9) Chronic respiratory failure Asthma-COPD overlap syndrome Incontinence in female History of adenomatous polyp of colon Pneumonitis Bronchopneumonia Hypogammaglobulinemia Chronic rhinitis Dizziness Headache Hyperlipidemia HTN (hypertension) Diabetes COPD (chronic obstructive pulmonary disease) Surgical History S/P right coronary artery (RCA) stent placement H/O colonoscopy History of foot surgery History of toe surgery History of bunionectomy Family History Family History Mother No problems noted. Father No problems noted. Social History 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 services: Yes (grand daughter vice president of software development) Alcohol intake: never Patient Tobacco Use Status: Former Tobacco user Tobacco use type: Cigarette Smoked in Last 30 Days: No Use of substances other than those prescribed or required for medical reasons: No Advance Directives: Yes Advance Directives on File: Yes Advance Directives Date on File: 10/03/23 Do you have a plan to hurt others: No Plan Patient : No service: No Current occupational status: retired Sexual orientation: Straight/Heterosexual Gender identity: Female Physical Exam ED Vital Signs: Vital Signs - 24 hr 12/27/24 14:49 12/27/24 16:04 12/27/24 18:36 Temperature 97.9 F 98.6 F 98.1 F Pulse Rate 110 H 100 94 Respiratory Rate 18 19 16 Blood Pressure 134/58 L 123/66 101/54 L Pulse Oximetry 93 96 96 Oxygen Delivery Method Room Air Room Air Room Air 12/27/24 19:20 12/27/24 19:23 Temperature 98.6 F Pulse Rate 88 87 Respiratory Rate 16 17 Blood Pressure 121/58 L 127/63 Pulse Oximetry 95 95 Oxygen Delivery Method Room Air Room Air BMI result Body Mass Index 30.0 Appearance: Alert. Oriented X3. No acute distress. Eyes: Pupils equal, round and reactive to light. ENT: Pharynx normal. Neck: Normal inspection. Neck supple. No lymph nodes noted. No crepitus CVS: Normal heart rate and rhythm. Pulses normal. Normal S1 and S2 Respiratory: No respiratory distress. Breath sounds normal. No Wheezing. No rales Abdomen: Soft and nontender. No rigidity. No distention. good BS x4 Skin: Skin warm and dry. Normal skin color. Normal skin turgor. Extremities: No lower extremity edema. Neurovascular intact to all extremities. No Lacerations. No Rash Neuro: Oriented X 3. No motor deficit. No sensory deficit. Moving all extermities. No slurred speech Course Course Course Narrative: RME, this is a rapid medical exam performed by Elio Stockton please refer to primary provider for complete H&P- 79-year-old female presents for evaluation of burning with urination for the last 2 weeks. She has been on 9 different antibiotics this year, most recently nitrofurantoin. Plan for repeat labs and urinalysis Medications Administered Generic Name Dose Route Start Last Admin Trade Name Freq PRN Reason Stop Dose Admin Enoxaparin Sodium 40 mg 12/27/24 22:00 12/27/24 21:44 Enoxaparin Sodium 40 Mg/0.4 Ml Syringe SUBCUT 40 mg Q24H AMANDA Administration Morphine Sulfate 2 mg 12/27/24 21:31 12/27/24 21:44 Morphine Sulfate 2 Mg/Ml Cartridge IVPUSH 2 mg Q4H PRN Administration Pain, Severe (Pain Scale 7-10) Protocol Discontinued Medications Generic Name Dose Route Start Last Admin Trade Name Freq PRN Reason Stop Dose Admin Sodium Chloride 1,000 mls @ 999 mls/hr 12/27/24 17:00 12/27/24 19:19 Ns IV 12/27/24 18:00 Infused .Q1H1M AMANDA Infusion Sodium Chloride 500 mls @ 999 mls/hr 12/27/24 18:45 12/27/24 20:44 Ns IV 12/27/24 19:15 Infused .Q31M AMANDA Infusion Sodium Chloride 1,000 mls @ 999 mls/hr 12/27/24 18:45 12/27/24 20:44 Ns IV 12/27/24 19:45 Infused .Q1H1M AMANDA Infusion Iohexol 100 ml 12/27/24 18:22 12/27/24 18:23 Iohexol 350 Mg/Ml 100 Ml Infus..Btl IV 12/27/24 18:23 85 ml ONCE ONE Administration Meropenem 1 gm 12/27/24 18:38 12/27/24 19:17 Meropenem 1 Gm Vial IVPUSH 12/27/24 18:39 1 gm ONCE ONE Administration Medical Decision Making Medical Decision Making [facility] Narrative: Fair appearing not acute distress. Has pain on urination. Urine being sent off. Labs sent off. Patient initial white count is 12.8. Had tachycardia heart rate is 110. Will give IV fluids. Already on Macrobid patient has allergies to Augmentin in the past. Patient had outpatient sensitivity done. Your was sensitive to Macrobid but resistant to Rocephin resistant to Unasyn patient unable to take Augmentin due to allergies. Will admit for meropenem IV treatment. Hospitalist team contacted agree with plan of treatment of ESBL Differential Diagnosis Differential Diagnoses: The differential diagnosis associated with the presentation includes UTI, obstruction, diverticulitis Admission/Observation Consideration of admission/observation: Escalation of care including admission/observation considered Consult Healthcare Provider Management of the patient was discussed with: Hospitalist Lab Data MDM Lab Attestation statement: I reviewed the patient's lab results. 12/27/24 15:09 12/27/24 15:09 Labs: Lab Results 12/27/24 12/27/24 12/27/24 Range/Units 15:09 16:49 17:10 WBC 12.8 H (4.8-10.8) X10*3/uL RBC 3.94 L (4.20-5.50) X10*6/uL Hgb 11.8 L (12.0-16.0) g/dl Hct 35.2 L (37.0-47.0) % MCV 89.3 (80.0-98.0) fL MCH 29.9 (27.0-33.0) pg MCHC 33.5 (31.0-35.0) g/dl RDW 16.2 H (11.0-16.0) % Plt Count 265 (160-400) X10*3/uL MPV 9.9 (9.4-12.3) fL Immature Gran % (Auto) 0.9 H (0.0-0.4) % Neut % (Auto) 63.1 (45-73) % Lymph % (Auto) 25.3 (20-40) % [place] % (Auto) 9.6 (2-11) % Eos % (Auto) 0.9 (0-4) % Baso % (Auto) 0.2 (0-2) % Lymph # (Auto) 3.2 (1.2-4.9) X10*3/uL [place] # (Auto) 1.2 (0.1-1.2) X10*3/uL Eos # (Auto) 0.1 (0.0-0.4) X10*3/uL Baso # (Auto) 0.0 (0.0-0.2) X10*3/uL Abs Immat Gran (auto) 0.11 H (0.00-0.03) X10*3/uL Absolute Neuts (auto) 8.1 (2.0-8.3) x10*3/uL Absolute Nucleated RBC 0.020 H (0.0-0.012) X10*3/uL Nucleated RBC % (auto) 0.2 (0.0-0.2) /100WBC Sodium 141 (135-145) mmol/L Potassium 4.1 (3.3-5.1) mmol/L Chloride 105 (96-108) mmol/L Carbon Dioxide 28 (22-29) mmol/L Anion Gap 12 (12-20) BUN 17 H (9-16) mg/dL Creatinine 1.29 (0.5-1.4) mg/dL Estim Creat Clear Calc 35.4 Estimated GFR 40 Random Glucose 146 H (60-115) mg/dL Lactic Acid 2.0 (0.5-2.0) mmol/L Calcium 9.0 (8.4-10.2) mg/dL Total Bilirubin 1.2 H (0.0-1.0) mg/dL AST 18 (5-31) U/L ALT 20 (0-31) U/L Alkaline Phosphatase 64 (39-117) U/L Total Protein 6.5 (6.5-8.0) g/dL Albumin 4.1 (3.5-5.0) g/dL Urine Color [place] Urine Appearance Turbid Urine pH 5.0 (5.0-9.0) Ur Specific [place] 1.015 (1.005-1.025) Urine Protein See Note (Neg-Trace) mg/dL Urine Glucose (UA) See Note (Negative) mg/dL Urine Ketones See Note (Negative) mg/dL Urine Blood See Note (Negative) Urine Nitrite See Note (Negative) Ur Leukocyte Esterase See Note (Negative) Urine RBC >20 H (0-2) /HPF Urine WBC >50 H (0-5) /HPF Ur Squamous Epith Cells 3-5 (0-2) /HPF Urine Bacteria Trace (None Seen) Hyaline Casts 0-2 (0-2) /LPF Independent Interpretation I performed an independent interpretation of an: CT Scan (No obvious obstruction) Radiology Impression Discussion of test interpretation with radiology: I have reviewed the radiologist's reading. External Record Review External record reviewed: Office record Discharge Plan Discharge Clinical Impression: Cystitis Patient Disposition: Admitted As Inpatient
[2024-12-27 15:13] LABS: MANUAL DIFF FLAG NO
[2024-12-27 15:15] LABS: Hematocrit 35.2 % (37.0-47.0); Hemoglobin 11.8 g/dl (12.0-16.0); Imm Gran Abs Auto 0.11 X10*3/uL (0.00-0.03); Imm Gran Pct Auto 0.9 % (0.0-0.4); Lymphocytes Absolute Auto 3.2 X10*3/uL (1.2-4.9); Mean Corpuscular HGB Conc 33.5 g/dl (31.0-35.0); Mean Corpuscular Hemoglobin 29.9 pg (27.0-33.0); Mean Corpuscular Volume 89.3 fL (80.0-98.0); NRBC Abs Auto 0.020 X10*3/uL (0.0-0.012); NRBC Pct Auto 0.2 /100WBC (0.0-0.2); Platelet Count 265 X10*3/uL (160-400); Red Blood Count 3.94 X10*6/uL (4.20-5.50); White Blood Count 12.8 X10*3/uL (4.8-10.8)
[2024-12-27 15:34] LABS: Alanine Aminotransferase 20 U/L (0-31); Albumin Level 4.1 g/dL (3.5-5.0); Alkaline Phosphatase 64 U/L (39-117); Anion Gap 12 (12-20); Aspartate Amino Transferase 18 U/L (5-31); Blood Urea Nitrogen 17 mg/dL (9-16); Calcium 9.0 mg/dL (8.4-10.2); Carbon Dioxide 28 mmol/L (22-29); Chloride 105 mmol/L (96-108); Creatinine Clr Calc Pharmacy 35.4; Estimated Glomerular Filt Rate 40; Potassium 4.1 mmol/L (3.3-5.1); Sodium 141 mmol/L (135-145); Total Protein 6.5 g/dL (6.5-8.0)
--- NOTE | 2024-12-27 16:09 | PC.NURSE ---
A&O x 3 Patient presents to ED c/o dysuria rated 10/10 non radiating. Patient says the pain usually occurs during urination but can last after she finishes. The dysuria has been going on for about 2 weeks with no improvement. Denies fever, chills, SOB. Denies any recent sexual activity. Patient recently treated at urgent care for UTI patient went back for follow up and was intructed [place] [facility] VSS and up to date. Provider in to see patient. Plan of care on going
--- NOTE | 2024-12-27 16:43 | ED.FEMALEGU ---
HPI - Female Genitourinary General Chief complaint: Urogenital-Female Stated complaint: IV Antibiotics Time Seen by Provider: 12/27/24 16:00 Related Data Home Medications ?Medication ?Instructions ?Recorded ?Confirmed cetirizine 10 mg tablet 10 mg PO DAILY 03/21/20 12/27/24 nitroglycerin 0.4 mg sublingual 0.4 mg sublingual ONCE PRN Chest 03/21/20 12/27/24 tablet Pain albuterol sulfate 2.5 mg/3 mL 2.5 mg inhalation Q4H PRN wheezing 04/28/20 12/27/24 (0.083 %) solution for nebulization melatonin 10 mg tablet 10 mg PO BEDTIME PRN Sleep 08/19/21 12/27/24 aspirin 81 mg tablet,delayed 81 mg PO DAILY 09/02/21 12/27/24 release isosorbide mononitrate 30 mg 30 mg PO DAILY 09/02/21 12/27/24 tablet,extended release 24 hr Oxygen Home Use 09/16/22 10/08/24 nebulizers 09/16/22 10/08/24 metformin 500 mg tablet,extended 500 mg PO DAILY 10/30/23 12/27/24 release 24 hr metoprolol tartrate 50 mg tablet 50 mg PO BID 06/17/24 12/27/24 atorvastatin 80 mg tablet 80 mg PO DAILY 06/20/24 12/27/24 estradiol 0.01% (0.1 mg/gram) 2 g vaginal NEEDED 12/27/24 12/27/24 vaginal cream fluticasone fur. 200 mcg-umeclid 1 ea inhalation DAILY 12/27/24 12/27/24 62.5 mcg-vilant 25 mcg inhalat.powder (Trelegy Ellipta) furosemide 20 mg tablet 20 mg PO DAILY 12/27/24 12/27/24 nitrofurantoin 1 cap PO BID 12/27/24 12/27/24 monohydrate/macrocrystals 100 mg capsule phenazopyridine 100 mg tablet 100 mg PO TID 12/27/24 12/27/24 Previous Rx's ?Medication ?Instructions ?Recorded cholecalciferol (vitamin D3) 50 50 mcg PO DAILY 30 days #30 caps 04/08/20 mcg (2,000 unit) capsule fluticasone propionate 50 2 spray intranasal DAILY 30 days 08/11/22 mcg/actuation nasal #15.8 mL spray,suspension lidocaine 5 % topical patch 1 patch topical DAILY #15 ea 04/11/24 albuterol sulfate 90 mcg/actuation 2 puff PO Q4H PRN for wheezing #1 05/14/24 aerosol inhaler ea dexlansoprazole 60 mg 60 mg PO DAILY #90 caps 07/16/24 capsule,biphase delayed release sennosides 8.6 mg tablet (senna) 17.2 mg (2 x 8.6 mg) PO DAILY PRN 09/11/24 constipation 90 days #180 tabs Allergies Allergy/AdvReac Type Severity Reaction Status Date / Time amoxicillin (Augmentin) Allergy Mild Rash Verified 12/27/24 14:50 clavulanic acid (From Allergy Mild RASH Verified 12/27/24 14:50 Augmentin) [facility] Past Medical History Medical History Obesity (BMI 30.0-34.9) Chronic respiratory failure Asthma-COPD overlap syndrome Incontinence in female History of adenomatous polyp of colon Pneumonitis Bronchopneumonia Hypogammaglobulinemia Chronic rhinitis Dizziness Headache Hyperlipidemia HTN (hypertension) Diabetes COPD (chronic obstructive pulmonary disease) Surgical History S/P right coronary artery (RCA) stent placement H/O colonoscopy History of foot surgery History of toe surgery History of bunionectomy Family History Family History Mother No problems noted. Father No problems noted. Social History 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 services: Yes (grand daughter brake liner) Alcohol intake: never Patient Tobacco Use Status: Former Tobacco user Tobacco use type: Cigarette Smoked in Last 30 Days: No Use of substances other than those prescribed or required for medical reasons: No Advance Directives: Yes Advance Directives on File: Yes Advance Directives Date on File: 10/03/23 Do you have a plan to hurt others: No Plan Patient : No service: No Current occupational status: retired Sexual orientation: Straight/Heterosexual Gender identity: Female Physical Exam Vital Signs: Vital Signs: Last Vital Signs Temp 98.1 F 12/27/24 21:44 Pulse 86 12/27/24 21:44 Resp 17 12/27/24 21:44 BP 115/55 L 12/27/24 21:44 Pulse Ox 94 12/27/24 21:44 O2 Del Method Room Air 12/27/24 21:44 BMI result Body Mass Index 30.0 Medications Administered Generic Name Dose Route Start Last Admin Trade Name Freq PRN Reason Stop Dose Admin Enoxaparin Sodium 40 mg 12/27/24 22:00 12/27/24 21:44 Enoxaparin Sodium 40 Mg/0.4 Ml Syringe SUBCUT 40 mg Q24H AMANDA Administration Morphine Sulfate 2 mg 12/27/24 21:31 12/27/24 21:44 Morphine Sulfate 2 Mg/Ml Cartridge IVPUSH 2 mg Q4H PRN Administration Pain, Severe (Pain Scale 7-10) Protocol Discontinued Medications Generic Name Dose Route Start Last Admin Trade Name Freq PRN Reason Stop Dose Admin Sodium Chloride 1,000 mls @ 999 mls/hr 12/27/24 17:00 12/27/24 19:19 Ns IV 12/27/24 18:00 Infused .Q1H1M AMANDA Infusion Sodium Chloride 500 mls @ 999 mls/hr 12/27/24 18:45 12/27/24 20:44 Ns IV 12/27/24 19:15 Infused .Q31M AMANDA Infusion Sodium Chloride 1,000 mls @ 999 mls/hr 12/27/24 18:45 12/27/24 20:44 Ns IV 12/27/24 19:45 Infused .Q1H1M AMANDA Infusion Iohexol 100 ml 12/27/24 18:22 12/27/24 18:23 Iohexol 350 Mg/Ml 100 Ml Infus..Btl IV 12/27/24 18:23 85 ml ONCE ONE Administration Meropenem 1 gm 12/27/24 18:38 12/27/24 19:17 Meropenem 1 Gm Vial IVPUSH 12/27/24 18:39 1 gm ONCE ONE Administration Medical Decision Making Lab Data 12/27/24 15:09 12/27/24 15:09 Labs: Lab Results 12/27/24 12/27/24 12/27/24 Range/Units 15:09 16:49 17:10 WBC 12.8 H (4.8-10.8) X10*3/uL RBC 3.94 L (4.20-5.50) X10*6/uL Hgb 11.8 L (12.0-16.0) g/dl Hct 35.2 L (37.0-47.0) % MCV 89.3 (80.0-98.0) fL MCH 29.9 (27.0-33.0) pg MCHC 33.5 (31.0-35.0) g/dl RDW 16.2 H (11.0-16.0) % Plt Count 265 (160-400) X10*3/uL MPV 9.9 (9.4-12.3) fL Immature Gran % (Auto) 0.9 H (0.0-0.4) % Neut % (Auto) 63.1 (45-73) % Lymph % (Auto) 25.3 (20-40) % [place] % (Auto) 9.6 (2-11) % Eos % (Auto) 0.9 (0-4) % Baso % (Auto) 0.2 (0-2) % Lymph # (Auto) 3.2 (1.2-4.9) X10*3/uL [place] # (Auto) 1.2 (0.1-1.2) X10*3/uL Eos # (Auto) 0.1 (0.0-0.4) X10*3/uL Baso # (Auto) 0.0 (0.0-0.2) X10*3/uL Abs Immat Gran (auto) 0.11 H (0.00-0.03) X10*3/uL Absolute Neuts (auto) 8.1 (2.0-8.3) x10*3/uL Absolute Nucleated RBC 0.020 H (0.0-0.012) X10*3/uL Nucleated RBC % (auto) 0.2 (0.0-0.2) /100WBC Sodium 141 (135-145) mmol/L Potassium 4.1 (3.3-5.1) mmol/L Chloride 105 (96-108) mmol/L Carbon Dioxide 28 (22-29) mmol/L Anion Gap 12 (12-20) BUN 17 H (9-16) mg/dL Creatinine 1.29 (0.5-1.4) mg/dL Estim Creat Clear Calc 35.4 Estimated GFR 40 Random Glucose 146 H (60-115) mg/dL Lactic Acid 2.0 (0.5-2.0) mmol/L Calcium 9.0 (8.4-10.2) mg/dL Total Bilirubin 1.2 H (0.0-1.0) mg/dL AST 18 (5-31) U/L ALT 20 (0-31) U/L Alkaline Phosphatase 64 (39-117) U/L Total Protein 6.5 (6.5-8.0) g/dL Albumin 4.1 (3.5-5.0) g/dL Urine Color [place] Urine Appearance Turbid Urine pH 5.0 (5.0-9.0) Ur Specific [place] 1.015 (1.005-1.025) Urine Protein See Note (Neg-Trace) mg/dL Urine Glucose (UA) See Note (Negative) mg/dL Urine Ketones See Note (Negative) mg/dL Urine Blood See Note (Negative) Urine Nitrite See Note (Negative) Ur Leukocyte Esterase See Note (Negative) Urine RBC >20 H (0-2) /HPF Urine WBC >50 H (0-5) /HPF Ur Squamous Epith Cells 3-5 (0-2) /HPF Urine Bacteria Trace (None Seen) Hyaline Casts 0-2 (0-2) /LPF Discharge Plan Discharge Clinical Impression: Cystitis Patient Disposition: Admitted As Inpatient
[2024-12-27 17:04] LABS: Appearance Urine Turbid; PH 5.0 (5.0-9.0); Specific Gravity - Urine 1.015 (1.005-1.025); UMIC TRIGGER UACC YES
[2024-12-27 18:02] LABS: UACC Culture Trigger YES
[2024-12-27] MEDS: iohexoL 350 MG/ML 100 ML INFUS..BTL IV (18:23)
--- NOTE | 2024-12-27 21:05 | PHA.MEDREC ---
Addendum entered by Lance Barrios [facility] 12/27/24 21:15: Med rec reviewed Original Note: Pharmacy Consult ? Medication Reconciliation Pharmacy has completed the medication reconciliation. Spoke to patient to confirm med list. patient was able to name her medications. Patient states she is no longer taking Azrlastine 137 nasal spray, Celecoxib 50 mg, and Terazosin 1 mg. Patient says she takes Furosemide 20 mg daily, even though claims has 40 mg (2x 20 mg) daily, Estradiol 0.01% is PRN only.
--- NOTE | 2024-12-27 21:06 | P.HPHOSP_ITS ---
History of Present Illness Date of Service: 12/27/24 Chief Complaint: painful urination This is a 79-year-old female with pertinent history of chronic hypoxemic respiratory failure due to COPD on baseline 2 L oxygen at bedtime, [id number] diabetes mellitus, gastroesophageal reflux disease, IBS, hypertension who presents to the emergency department for evaluation of ongoing dysuria. Patient went to her urologist's office 1 week ago due to urinary retention when she underwent instrumentation. Subsequently patient developed increased urinary urgency, frequency and dysuria. Patient went to urgent care about 7 days prior to presentation and was started on outpatient p.o. antibiotics. Her symptoms did not improve after 2-3 days and her p.o. antibiotics was changed. She continued to have dysuria and decided to come to the ER. Her outpatient urinary culture obtained on 12/21 with ESBL E coli. He denies fever but has chills. No nausea, vomiting, chest pain, palpitations, abdominal pain, changes in bowel habits. In the emergency department, patient with leukocytosis 12.8 and initiated on IV meropenem. Review of Systems 2 Constitutional: Constitutional: Reports chills and Reports malaise Cardiovascular: Cardiovascular: Reports no additional cardiovascular complaints Respiratory: Respiratory: Reports no additional respiratory complaints Gastrointestinal: Gastrointestinal: Reports no additional gastrointestinal complaints Genitourinary: Genitourinary: Reports dysuria and Reports urinary urgency [facility] Medical History Obesity (BMI 30.0-34.9) Chronic respiratory failure Asthma-COPD overlap syndrome Incontinence in female History of adenomatous polyp of colon Pneumonitis Bronchopneumonia Hypogammaglobulinemia Chronic rhinitis Dizziness Headache Hyperlipidemia HTN (hypertension) Diabetes COPD (chronic obstructive pulmonary disease) Family History Mother No problems noted. Father No problems noted. Surgical History S/P right coronary artery (RCA) stent placement H/O colonoscopy History of foot surgery History of toe surgery History of bunionectomy 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 services: Yes (grand daughter associate director data & analytics) Alcohol intake: never Patient Tobacco Use Status: Former Tobacco user Tobacco use type: Cigarette Smoked in Last 30 Days: No Use of substances other than those prescribed or required for medical reasons: No Advance Directives: Yes Advance Directives on File: Yes Advance Directives Date on File: 10/03/23 Do you have a plan to hurt others: No Plan Patient : No service: No Current occupational status: retired Sexual orientation: Straight/Heterosexual Gender identity: Female Meds Allergies Allergy/AdvReac Type Severity Reaction Status Date / Time amoxicillin (Augmentin) Allergy Mild Rash Verified 12/27/24 14:50 clavulanic acid (From Allergy Mild RASH Verified 12/27/24 14:50 Augmentin) Home Medications ?Medication ?Instructions ?Recorded ?Confirmed ?Last Taken ?Type cetirizine 10 mg tablet 10 mg PO DAILY 03/21/2012/1712/27/24 History nitroglycerin 0.4 mg sublingual 0.4 mg sublingual ONCE PRN Chest 03/21/20 12/27/24 06/18/24 History tablet Pain albuterol sulfate 2.5 mg/3 mL 2.5 mg inhalation Q4H MS N wheezing 04/28/20 12/27/24 06/18/24 History (0.083 %) solution for nebulization melatonin 10 mg tablet 10 mg PO BEDTIME PRN Sleep 0 08/19/21 12/27/24 06/18/24 History aspirin 81 mg tablet,delayed 81 mg PO DAILY 09/02/21 0 12/27/24 12/27/24 History release isosorbide mononitrate 30 mg 30 mg PO DAILY 09/02/21 0 12/27/24 12/27/24 History tablet,extended release 24 hr Oxygen Home Use 09/16/22 10/08/24 Unknown H istory nebulizers 09/16/22 10/08/24 Unknown H istory metformin 500 mg tablet,extended 500 mg PO DAILY 10/2912/27/24 06/18/24 History release 24 hr metoprolol tartrate 50 mg tablet 50 mg PO BID 06/17/24 12/27/24 12/27/24 History atorvastatin 80 mg tablet 80 mg PO DAILY 06/20/2412/1712/27/24 History estradiol 0.01% (0.1 mg/gram) 2 g vaginal NEEDED 12/27/24 Unknown History vaginal cream fluticasone fur. 200 mcg-umeclid 1 ea inhalation DAILY 12/27/24 12/27/24 12/27/24 History 62.5 mcg-vilant 25 mcg inhalat.powder (Trelegy Ellipta) furosemide 20 mg tablet 20 mg PO DAILY 12/27/2412/1712/27/24 History nitrofurantoin 1 cap PO BID 12/27/2412/27/24 History monohydrate/macrocrystals 100 mg capsule phenazopyridine 100 mg tablet 100 mg PO TID 12/27/24 0 12/27/24 12/27/24 History Physical Exam 2 Vital Signs and Narrative: Vital Signs: Last Vital Signs Temp 98.2 F 12/27/24 20:45 Pulse 83 12/27/24 20:45 Resp 17 12/27/24 20:45 BP 115/78 12/27/24 20:45 Pulse Ox 95 12/27/24 20:45 O2 Del Method Room Air 12/27/24 20:45 BMI result Body Mass Index 30.0 Elderly female lying in bed in no distress Neck supple, no JVD Regular rate and rhythm, S1-S2 heard Decreased breath sounds at bases Abdomen soft nontender, no guarding, no rigidity Patient is awake, alert and oriented x3 ; no focal motor deficit Psych: Normal mood Results Labs 12/27/24 15:09 12/27/24 15:09 Labs: Laboratory Results - last 24 hr 12/27/24 12/27/24 12/27/24 15:09 16:49 17:10 MCV 89.3 MCH 29.9 MCHC 33.5 RDW 16.2 H Plt Count 265 MPV 9.9 Immature Gran % (Auto) 0.9 H Neut % (Auto) 63.1 Lymph % (Auto) 25.3 [place] % (Auto) 9.6 Eos % (Auto) 0.9 Baso % (Auto) 0.2 Lymph # (Auto) 3.2 [place] # (Auto) 1.2 Eos # (Auto) 0.1 Baso # (Auto) 0.0 Abs Immat Gran (auto) 0.11 H Absolute Neuts (auto) 8.1 Absolute Nucleated RBC 0.020 H Nucleated RBC % (auto) 0.2 Anion Gap 12 Estim Creat Clear Calc 35.4 Estimated GFR 40 Random Glucose 146 H Lactic Acid 2.0 Calcium 9.0 Total Bilirubin 1.2 H AST 18 ALT 20 Alkaline Phosphatase 64 Total Protein 6.5 Albumin 4.1 Urine Color [place] Urine Appearance Turbid Urine pH 5.0 Ur Specific [place] 1.015 Urine Protein See Note Urine Glucose (UA) See Note Urine Ketones See Note Urine Blood See Note Urine Nitrite See Note Ur Leukocyte Esterase See Note Urine RBC >20 H Urine WBC >50 H Ur Squamous Epith Cells 3-5 Urine Bacteria Trace Hyaline Casts 0-2 Assessment and Plan (1) Acute UTI: Status: Acute Plan This is a 79-year-old female with pertinent history of chronic hypoxemic respiratory failure due to COPD on baseline 2 L oxygen at bedtime, [id number]-[id number] diabetes mellitus, gastroesophageal reflux disease, IBS, hypertension who presents to the emergency department for evaluation of ongoing dysuria. #. Sepsis due to ESBL UTI: Resuscitated with IV crystalloids. Initiating IV meropenem. Follow blood culture and urine culture. Lactic acid obtained #. Chronic hypoxemic respiratory failure due to COPD: No exacerbation during admission. Continue home inhalers. On 2 L baseline supplemental oxygen during nighttime #. Pze-fbjblwf-qyvqnauqu type 2 diabetes mellitus: Initiating Accu-Cheks with sliding scale insulin before meals and at bedtime #. Hypertension: Continue home p.o. antihypertensives Med rec pending DVT prophylaxis: Lovenox Full code. Discussed with patient at bedside Admit as inpatient and will require two night minimum hospital stay for IV antibiotics (as above), which is not possible in a lesser acute setting. Quality Stroke Does the patient have a stroke diagnosis?: No VTE Prior VTE?: No VTE Risk Level:: Medical - moderate - high VTE Device Contraindication: Treatment Not Indicated VTE Drug Contraindication: N/A - Med Ordered
[2024-12-28] VITALS (7 sets, daily range): BP systolic 127–168; BP diastolic 59–68; PULSE 68–105; RESP 16–20; TEMP 36–36.9; O2SAT 94–97; BMI 31.7
[2024-12-28 06:39] LABS: MANUAL DIFF FLAG NO
[2024-12-28 06:52] LABS: Hematocrit 30.9 % (37.0-47.0); Hemoglobin 10.3 g/dl (12.0-16.0); Imm Gran Abs Auto 0.10 X10*3/uL (0.00-0.03); Imm Gran Pct Auto 1.1 % (0.0-0.4); Lymphocytes Absolute Auto 2.3 X10*3/uL (1.2-4.9); Mean Corpuscular HGB Conc 33.3 g/dl (31.0-35.0); Mean Corpuscular Hemoglobin 29.9 pg (27.0-33.0); Mean Corpuscular Volume 89.8 fL (80.0-98.0); NRBC Abs Auto 0.000 X10*3/uL (0.0-0.012); NRBC Pct Auto 0.0 /100WBC (0.0-0.2); Platelet Count 226 X10*3/uL (160-400); Red Blood Count 3.44 X10*6/uL (4.20-5.50); White Blood Count 9.1 X10*3/uL (4.8-10.8)
[2024-12-28 07:00] LABS: Anion Gap 12 (12-20); Blood Urea Nitrogen 16 mg/dL (9-16); Calcium 8.5 mg/dL (8.4-10.2); Carbon Dioxide 26 mmol/L (22-29); Chloride 108 mmol/L (96-108); Creatinine Clr Calc Pharmacy 44.4; Estimated Glomerular Filt Rate 52; Potassium 4.4 mmol/L (3.3-5.1); Sodium 142 mmol/L (135-145)
[2024-12-28 07:45] LABS: Glucose, Whole Blood 84 mg/dL (60-115)
[2024-12-28] MEDS: 0.9 % Sodium Chloride Flush 3 ML SYRINGE IVFLUSH ×3 (08:22→21:36)
--- NOTE | 2024-12-28 08:33 | HO.PM.IMPN ---
Subjective Subjective Date of Service: 12/28/24 Interval History: Seen and examined Interval history: Initially asleep. Reports she is comfortable. Still with dysuria, but no abd pain. No n/v, tolerating diet. No hematuria, increased frequency. Afebrile Physical Exam Vital Signs: Vital Signs: Last Vital Signs Temp 98.1 F 12/28/24 08:13 Pulse 105 H 12/28/24 08:13 Resp 18 12/28/24 08:13 BP 168/67 H 12/28/24 08:13 Pulse Ox 96 12/28/24 08:13 O2 Del Method Room Air 12/28/24 08:13 BMI result Body Mass Index 30.0 Constitutional - Awake and Alert, No apparent distress Eyes - PERRLA, EOMI Cardiovascular - S1S2, RRR, No edema Respiratory - Normal lung expansion, Normal respiratory effort, No respiratory distress, CTA bilaterally Gastrointestinal - NT / ND; +BS; No rebound or guarding - No CVA tenderness Extremities - no calf tenderness bilaterally, no swelling Skin - Warm/Dry Neurological - Alert & oriented x3, moving all extremities Psychological - Appropriate affect Objective Data Active Medications Acetaminophen (Acetaminophen 325 Mg Tablet) 650 mg PO Q6H PRN PRN Reason: Pain, Mild 1-3,fever,headache Calcium Carbonate (Calcium Carbonate 750 Mg Tab.Chew) 750 mg PO Q4H PRN PRN Reason: Heartburn Dextrose (Dextrose 50 % 25 Gm/50 Ml Syringe) 25 gm IVPUSH Q15M PRN; Protocol PRN Reason: per Hypoglycemia Standing Ord. Enoxaparin Sodium (Enoxaparin Sodium 40 Mg/0.4 Ml Syringe) 40 mg SUBCUT Q24H [facility] Last Admin: 12/27/24 21:44 Dose: 40 mg Documented By: MARIBELL Glucose (Glucose Gel 15 Gm Gel..Gram.) 15 gm PO Q15M PRN; Protocol PRN Reason: per Hypoglycemia Standing Ord. Insulin Human Lispro (Insulin Lispro 100 Unit/Ml 3 Ml Vial) 0 unit SUBCUT QIDACHS [facility]; Protocol Last Admin: 12/28/24 08:10 Dose: Not Given Documented By: REE Non-Admin Reason: No Insulin Coverage Magnesium Hydroxide (Milk Of Magnesia 30 Ml Oral.Susp) 30 ml PO DAILY PRN PRN Reason: Constipation Melatonin (Melatonin 3 Mg Tablet) 6 mg PO BEDTIME PRN PRN Reason: Insomnia Meropenem (Meropenem 1 Gm Vial) 1 gm IVPUSH Q12H [facility] Last Admin: 12/28/24 08:22 Dose: 1 gm Documented By: REE Morphine Sulfate (Morphine Sulfate 2 Mg/Ml Cartridge) 2 mg IVPUSH Q4H PRN; Protocol PRN Reason: Pain, Severe (Pain Scale 7-10) Last Admin: 12/27/24 21:44 Dose: 2 mg Documented By: MARIBELL Ondansetron HCl (Ondansetron Hcl 4 Mg/2 Ml Vial) 4 mg IVPUSH Q8H PRN PRN Reason: Nausea and Vomiting Sodium Chloride (0.9 % Sodium Chloride Flush 3 Ml Syringe) 3 ml IVFLUSH QSHIFT [facility] Last Admin: 12/28/24 08:22 Dose: 3 ml Documented By: REE Labs 12/28/24 06:11 12/28/24 06:11 Labs: Laboratory Results - last 24 hr 12/27/24 12/27/24 12/27/24 15:09 16:49 17:10 MCV 89.3 MCH 29.9 MCHC 33.5 RDW 16.2 H Plt Count 265 MPV 9.9 Immature Gran % (Auto) 0.9 H Neut % (Auto) 63.1 Lymph % (Auto) 25.3 [place] % (Auto) 9.6 Eos % (Auto) 0.9 Baso % (Auto) 0.2 Lymph # (Auto) 3.2 [place] # (Auto) 1.2 Eos # (Auto) 0.1 Baso # (Auto) 0.0 Abs Immat Gran (auto) 0.11 H Absolute Neuts (auto) 8.1 Absolute Nucleated RBC 0.020 H Nucleated RBC % (auto) 0.2 Anion Gap 12 Estim Creat Clear Calc 35.4 Estimated GFR 40 POC Glucose Random Glucose 146 H Lactic Acid 2.0 Calcium 9.0 Total Bilirubin 1.2 H AST 18 ALT 20 Alkaline Phosphatase 64 Total Protein 6.5 Albumin 4.1 Urine Color [place] Urine Appearance Turbid Urine pH 5.0 Ur Specific [place] 1.015 Urine Protein See Note Urine Glucose (UA) See Note Urine Ketones See Note Urine Blood See Note Urine Nitrite See Note Ur Leukocyte Esterase See Note Urine RBC >20 H Urine WBC >50 H Ur Squamous Epith Cells 3-5 Urine Bacteria Trace Hyaline Casts 0-2 12/28/24 12/28/24 06:11 07:36 MCV 89.8 MCH 29.9 MCHC 33.3 RDW 16.3 H Plt Count 226 MPV 10.0 Immature Gran % (Auto) 1.1 H Neut % (Auto) 60.3 Lymph % (Auto) 25.0 [place] % (Auto) 12.2 H Eos % (Auto) 1.1 Baso % (Auto) 0.3 Lymph # (Auto) 2.3 [place] # (Auto) 1.1 Eos # (Auto) 0.1 Baso # (Auto) 0.0 Abs Immat Gran (auto) 0.10 H Absolute Neuts (auto) 5.5 Absolute Nucleated RBC 0.000 Nucleated RBC % (auto) 0.0 Anion Gap 12 Estim Creat Clear Calc 44.4 Estimated GFR 52 POC Glucose 84 Random Glucose 93 Lactic Acid Calcium 8.5 Total Bilirubin AST ALT Alkaline Phosphatase Total Protein Albumin Urine Color Urine Appearance Urine pH Ur Specific [place] Urine Protein Urine Glucose (UA) Urine Ketones Urine Blood Urine Nitrite Ur Leukocyte Esterase Urine RBC Urine WBC Ur Squamous Epith Cells Urine Bacteria Hyaline Casts Assessment and Plan (1) UTI due to extended-spectrum beta lactamase (ESBL) producing Escherichia coli: Status: Acute Plan 79-year-old female with pertinent history of chronic hypoxemic respiratory failure due to COPD on baseline 2 L oxygen at bedtime, [id number]-bhwlmyimu diabetes mellitus, gastroesophageal reflux disease, IBS, hypertension admitted for UTI with sepsis Acute UTI with sepsis History of ESBL E Coli UTI 12/21 outpt culture. Repeat culture pending IV meropenam (initiated 12/27) pyridium daily prn Follow cultures, cbc Consider ID consult pending culture results COPD with chronic hypoxemic respiratory failure No acute exacerbation Continue maintenance inhalers, albuterol p.r.n. 2 L O2 at bedtime Efd-dtgzjiv-fvbizkdrb type 2 diabetes without hyperglycemia POC glucose, diabetic diet Sliding scale insulin Hypertension Continue metoprolol, isosorbide CKD stage 3 Baseline renal function DVT prophylaxis-Lovenox Full code Patient requires ongoing inpatient stay due to UTI with sepsis caused by ESBL requiring IV antibiotics Quality Stroke Does the patient have a stroke diagnosis?: No VTE Prior VTE?: No VTE Risk Level:: Medical - moderate - high VTE Device Contraindication: Treatment Not Indicated VTE Drug Contraindication: N/A - Med Ordered
[2024-12-28 12:44] LABS: Glucose, Whole Blood 93 mg/dL (60-115)
[2024-12-28 16:11] LABS: Glucose, Whole Blood 116 mg/dL (60-115)
[2024-12-28] MEDS: Fluticasone/Umeclidinium/Vilanterol 200/62.5/25 BLST.W.DEV 1 PUFF INHALE ×2 (17:37)
[2024-12-28 20:47] LABS: Glucose, Whole Blood 163 mg/dL (60-115)
[2024-12-29] VITALS: BP 143/64; PULSE 83; RESP 18; TEMP 36.7; O2SAT 99
--- NOTE | 2024-12-29 01:39 | PC.NURSE ---
Pt seen at shift change alert and oriented, pt c/o SOB while at rest, pt claimed that she took her on Albuterol with no effect, Pt advised not to use her own inhaler next time, vitals WNL, LS dim, new periorbital edema and trace ankle edema noted, pt claimed she takes Lasix at home, Dr. Krueger was notified, Lasix 20 mg tab given, O2 at 2L/min via NC started as ordered and as pt's baseline at bedtime, voided large amount after, pt was relieved. At [place], pt had episode of severe dysuria causing her to moan and cry, prn Morphine 2 mg IV given, with favorable effect.
[2024-12-29 06:18] LABS: MANUAL DIFF FLAG NO
[2024-12-29 06:36] LABS: Anion Gap 15 (12-20); Blood Urea Nitrogen 15 mg/dL (9-16); Calcium 8.8 mg/dL (8.4-10.2); Carbon Dioxide 27 mmol/L (22-29); Chloride 106 mmol/L (96-108); Creatinine Clr Calc Pharmacy 47.4; Estimated Glomerular Filt Rate 54; Potassium 4.5 mmol/L (3.3-5.1); Sodium 143 mmol/L (135-145)
[2024-12-29 06:59] LABS: Hematocrit 32.9 % (37.0-47.0); Hemoglobin 10.9 g/dl (12.0-16.0); Imm Gran Abs Auto 0.10 X10*3/uL (0.00-0.03); Imm Gran Pct Auto 1.1 % (0.0-0.4); Lymphocytes Absolute Auto 2.1 X10*3/uL (1.2-4.9); Mean Corpuscular HGB Conc 33.1 g/dl (31.0-35.0); Mean Corpuscular Hemoglobin 30.2 pg (27.0-33.0); Mean Corpuscular Volume 91.1 fL (80.0-98.0); NRBC Abs Auto 0.020 X10*3/uL (0.0-0.012); NRBC Pct Auto 0.2 /100WBC (0.0-0.2); Platelet Count 255 X10*3/uL (160-400); Red Blood Count 3.61 X10*6/uL (4.20-5.50); White Blood Count 8.7 X10*3/uL (4.8-10.8)
[2024-12-29 07:30] LABS: Glucose, Whole Blood 201 mg/dL (60-115)
[2024-12-29 07:52] VITALS: BP 140/63; PULSE 93; RESP 16; TEMP 36; O2SAT 99
[2024-12-29] MEDS: Lidocaine 4 % Patch ADH..PATCH 1 PATCH TRANSDERMA (07:53)
[2024-12-29] MEDS: 0.9 % Sodium Chloride Flush 3 ML SYRINGE IVFLUSH ×3 (07:53→20:58)
[2024-12-29] MEDS: Aspirin Enteric Coated 81 MG TABLET.DR PO (07:53)
--- NOTE | 2024-12-29 09:48 | HO.PM.IMPN ---
Subjective Subjective Date of Service: 12/29/24 Interval History: f/u resistant e. coli uti feels better today Physical Exam Vital Signs: Vital Signs: Last Vital Signs Temp 96.8 F 12/29/24 07:52 Pulse 93 12/29/24 07:52 Resp 16 12/29/24 07:52 BP 140/63 H 12/29/24 07:52 Pulse Ox 99 12/29/24 07:52 O2 Del Method Nasal Cannula 12/29/24 07:52 O2 Flow Rate 2 12/29/24 07:52 BMI result Body Mass Index 31.7 Const: Other: General: AO X 3, no acute distress Resp: CTA bilateral CVS: S1,S2,RRR GI: +BS, NT, no distention Skin: No rash Neuro: motor grossly intact Psych: appropriate affect Objective Data Active Medications Acetaminophen (Acetaminophen 325 Mg Tablet) 650 mg PO Q6H PRN PRN Reason: Pain, Mild 1-3,fever,headache Last Admin: 12/29/24 08:05 Dose: 650 mg Documented By: OCTAVIA Albuterol Sulfate (Albuterol Sulfate (0.083%) 2.5 Mg/3 Ml Vial.Neb) 2.5 mg INHALE Q4H PRN PRN Reason: Wheezing Albuterol Sulfate (Albuterol Sulfate 90 Mcg 8 Gm Inhaler) 2 puff INHALE Q4H PRN PRN Reason: for wheezing Aspirin (Aspirin Enteric Coated 81 Mg Tablet.) 81 mg PO DAILY [facility] Last Admin: 12/29/24 07:53 Dose: 81 mg Documented By: OCTAVIA Atorvastatin Calcium (Atorvastatin Calcium 80 Mg Tablet) 80 mg PO DAILY [facility] Last Admin: 12/29/24 07:52 Dose: 80 mg Documented By: OCTAVIA Calcium Carbonate (Calcium Carbonate 750 Mg Tab.Chew) 750 mg PO Q4H PRN PRN Reason: Heartburn Dextrose (Dextrose 50 % 25 Gm/50 Ml Syringe) 25 gm IVPUSH Q15M PRN; Protocol PRN Reason: per Hypoglycemia Standing Ord. Enoxaparin Sodium (Enoxaparin Sodium 40 Mg/0.4 Ml Syringe) 40 mg SUBCUT Q24H [facility] Last Admin: 12/28/24 21:35 Dose: 40 mg Documented By: CASTILRenee Fluticasone Propionate (Fluticasone Propionate Nasal 16 Gm [place]) 2 spray NOSTRIL-B DAILY [facility] Last Admin: 12/29/24 07:53 Dose: 2 spray Documented By: OCTAVIA Fluticasone/Umeclidinium/Vilanterol (Fluticasone/Umeclidinium/Vilanterol 200/62.5 Blst.W.Dev) 1 puff INHALE RDAILY [facility] Last Admin: 12/29/24 08:32 Dose: Not Given Documented By: ANT Non-Admin Reason: Medication Discontinued Furosemide (Furosemide 20 Mg Tablet) 20 mg PO DAILY [facility]; Protocol Last Admin: 12/29/24 07:52 Dose: 20 mg Documented By: OCTAVIA Glucose (Glucose Gel 15 Gm Gel..Gram.) 15 gm PO Q15M PRN; Protocol PRN Reason: per Hypoglycemia Standing Ord. Insulin Human Lispro (Insulin Lispro 100 Unit/Ml 3 Ml Vial) 0 unit SUBCUT QIDACHS [facility]; Protocol Last Admin: 12/29/24 07:49 Dose: 4 unit Documented By: OCTAVIA Isosorbide Mononitrate (Isosorbide Mononitrate 30 Mg Tab.Er.24h) 30 mg PO DAILY [facility]; Protocol Last Admin: 12/29/24 07:52 Dose: 30 mg Documented By: OCTAVIA Lidocaine (Lidocaine 4 % Patch Adh..Patch) 1 patch TRANSDERMA DAILY [facility] Last Admin: 12/29/24 07:53 Dose: 1 patch Documented By: OCTAVIA Loratadine (Loratadine 10 Mg Tablet) 10 mg PO DAILY [facility] Last Admin: 12/29/24 07:51 Dose: 10 mg Documented By: OCTAVIA Magnesium Hydroxide (Milk Of Magnesia 30 Ml Oral.Susp) 30 ml PO DAILY PRN PRN Reason: Constipation Melatonin (Melatonin 3 Mg Tablet) 6 mg PO BEDTIME PRN PRN Reason: Insomnia Meropenem (Meropenem 1 Gm Vial) 1 gm IVPUSH Q12H [facility] Last Admin: 12/29/24 06:09 Dose: 1 gm Documented By: ROJELIO Metoprolol Tartrate (Metoprolol Tartrate 50 Mg Tablet) 50 mg PO BID [facility]; Protocol Last Admin: 12/29/24 07:52 Dose: 50 mg Documented By: OCTAVIA Morphine Sulfate (Morphine Sulfate 2 Mg/Ml Cartridge) 2 mg IVPUSH Q4H PRN; Protocol PRN Reason: Pain, Severe (Pain Scale 7-10) Last Admin: 12/29/24 01:01 Dose: 2 mg Documented By: ROJELIO Nitroglycerin (Nitroglycerin 0.4 Mg Tab.Subl) 0.4 mg SUBLINGUAL Q5M PRN PRN Reason: Chest Pain Omeprazole (Omeprazole 40 Mg Capsule.Dr) 40 mg PO DAILY@0630 [facility] Last Admin: 12/29/24 06:09 Dose: 40 mg Documented By: ROJELIO Ondansetron HCl (Ondansetron Hcl 4 Mg/2 Ml Vial) 4 mg IVPUSH Q8H PRN PRN Reason: Nausea and Vomiting Phenazopyridine HCl (Phenazopyridine Hcl 100 Mg Tablet) 100 mg PO DAILY PRN PRN Reason: URINARY PAIN Senna (Sennosides 8.6 Mg Tablet) 17.2 mg PO DAILY PRN PRN Reason: Constipation Sodium Chloride (0.9 % Sodium Chloride Flush 3 Ml Syringe) 3 ml IVFLUSH QSHIFT [facility] Last Admin: 12/29/24 07:53 Dose: 3 ml Documented By: OCTAVIA Vitamin D (Cholecalciferol (Vitamin D3) 25 Mcg Tablet) 50 mcg PO DAILY [facility] Last Admin: 12/29/24 07:52 Dose: 50 mcg Documented By: OCTAVIA Labs 12/29/24 06:13 12/29/24 06:13 Labs: Laboratory Results - last 24 hr 12/28/24 12/28/24 12/28/24 12:39 16:05 20:41 MCV MCH MCHC RDW Plt Count MPV Immature Gran % (Auto) Neut % (Auto) Lymph % (Auto) [place] % (Auto) Eos % (Auto) Baso % (Auto) Lymph # (Auto) [place] # (Auto) Eos # (Auto) Baso # (Auto) Abs Immat Gran (auto) Absolute Neuts (auto) Absolute Nucleated RBC Nucleated RBC % (auto) Anion Gap Estim Creat Clear Calc Estimated GFR POC Glucose 93 116 H 163 H Random Glucose Calcium 12/29/24 12/29/24 06:13 07:13 MCV 91.1 MCH 30.2 MCHC 33.1 RDW 16.2 H Plt Count 255 MPV 10.6 Immature Gran % (Auto) 1.1 H Neut % (Auto) 61.2 Lymph % (Auto) 24.5 [place] % (Auto) 11.4 H Eos % (Auto) 1.5 Baso % (Auto) 0.3 Lymph # (Auto) 2.1 [place] # (Auto) 1.0 Eos # (Auto) 0.1 Baso # (Auto) 0.0 Abs Immat Gran (auto) 0.10 H Absolute Neuts (auto) 5.3 Absolute Nucleated RBC 0.020 H Nucleated RBC % (auto) 0.2 Anion Gap 15 Estim Creat Clear Calc 47.4 Estimated GFR 54 POC Glucose 201 H Random Glucose 140 H Calcium 8.8 Microbiology Microbiology Results: Microbiology 12/27/24 Unknown Urine Culture - Preliminary Urine clean catch - Clean Catch Midstream Escherichia coli 12/27/24 17:10 Blood Culture - Preliminary Blood - Venous No growth after 24 hours. 12/27/24 17:10 Blood Culture - Preliminary Blood - Venous No growth after 24 hours. Assessment and Plan (1) ESBL (extended spectrum beta-lactamase) producing bacteria infection: Status: Acute Plan 79-year-old female with pertinent history of chronic hypoxemic respiratory failure due to COPD on baseline 2 L oxygen at bedtime, gcj-lymxbop-zoaxvzwzj diabetes mellitus, gastroesophageal reflux disease, IBS, hypertension admitted for UTI with sepsis Acute UTI with sepsis History of ESBL E Coli UTI 12/21 outpt culture. Repeat culture pending IV meropenam (initiated 12/27) pyridium daily prn Follow cultures, cbc Mid line on monday for IV Ertapenem COPD with chronic hypoxemic respiratory failure No acute exacerbation Continue maintenance inhalers, albuterol p.r.n. 2 L O2 at bedtime Stv-gamvcle-djqonamkx type 2 diabetes without hyperglycemia POC glucose, diabetic diet Sliding scale insulin Hypertension Continue metoprolol, isosorbide CKD stage 3 Baseline renal function DVT prophylaxis-Lovenox Full code Patient requires ongoing inpatient stay due to UTI with sepsis caused by ESBL requiring IV antibiotics Quality Stroke Does the patient have a stroke diagnosis?: No VTE Prior VTE?: No VTE Risk Level:: Medical - moderate - high VTE Device Contraindication: Treatment Not Indicated VTE Drug Contraindication: N/A - Med Ordered
[2024-12-29 11:27] LABS: Glucose, Whole Blood 179 mg/dL (60-115)
[2024-12-29 15:27] VITALS: BP 152/66; PULSE 75; RESP 16; TEMP 36; O2SAT 97
[2024-12-29 16:07] LABS: Glucose, Whole Blood 133 mg/dL (60-115)
--- NOTE | 2024-12-29 16:38 | MHC.CM.PN ---
PT REPORTS SHE LIVES ALONE AND HAS DAILY [employer] SHE USES A [facility] FOR DME HCP ON FILE PCP: ZAIN SHIN IMM DELIVERED DCP: HOME RESUME [employer] FAMILY TO TRANSPORT
[2024-12-29 20:00] VITALS: BP 146/67; PULSE 118; RESP 16; TEMP 36.2; O2SAT 92
[2024-12-29 20:36] LABS: Glucose, Whole Blood 147 mg/dL (60-115)
[2024-12-29 20:57] VITALS: BP 146/67; PULSE 100
[2024-12-30 03:36] VITALS: BP 121/59; PULSE 83; RESP 18; TEMP 36.1; O2SAT 98
[2024-12-30 07:34] LABS: Glucose, Whole Blood 123 mg/dL (60-115)
[2024-12-30 07:47] VITALS: BP 140/67; PULSE 90; RESP 18; TEMP 36.2; O2SAT 95
--- NOTE | 2024-12-30 08:04 | PM.EVENT ---
Event Note Date of Service: 12/30/24 Event Note: h/o CKD 3, presently creatine 0.9, disccus with Nephro (Dr. Blevins) ok with Midline at this time Time Spent With Patient Time: Total time managing care of this patient today ____ minutes.
[2024-12-30 08:47] VITALS: BP 141/76
[2024-12-30] MEDS: Aspirin Enteric Coated 81 MG TABLET.DR PO (08:47)
[2024-12-30] MEDS: Lidocaine 4 % Patch ADH..PATCH 1 PATCH TRANSDERMA (08:48)
[2024-12-30] MEDS: 0.9 % Sodium Chloride Flush 3 ML SYRINGE IVFLUSH (08:48)
--- NOTE | 2024-12-30 09:15 | PM.CNNEP ---
History of Present Illness Reason for Consult Consult date: 12/30/24 Chief Complaint Chief complaint: UTI History of Present Illness Narrative: 79 y/o female with a medical history of COPD on 2L home O2 at bedtime, diabetes, IBS, HTN, here wtih UTI/sepsis. Nephrology consulted for PICC clearance. Patient needs IV ertapenem for treatment of UTI. Patient ith CKD3a. most recent creatinine 0.99, GFR 54 today. Review of Systems Review of Systems Yes all other systems are reviewed and are negative PMF Past Medical History Medical History Obesity (BMI 30.0-34.9) Chronic respiratory failure Asthma-COPD overlap syndrome Incontinence in female History of adenomatous polyp of colon Pneumonitis Bronchopneumonia Hypogammaglobulinemia Chronic rhinitis Dizziness Headache Hyperlipidemia HTN (hypertension) Diabetes COPD (chronic obstructive pulmonary disease) Family History Family History Mother No problems noted. Father No problems noted. 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) Alcohol intake: never Patient Tobacco Use Status: Former Tobacco user Tobacco use type: Cigarette Second Hand Smoke Exposure: No Advance Directives Date on File: 10/03/23 service: No Current occupational status: retired Sexual orientation: Straight/Heterosexual Gender identity: Female Meds Allergies Allergy/AdvReac Type Severity Reaction Status Date / Time amoxicillin (Augmentin) Allergy Mild Rash Verified 12/27/24 14:50 clavulanic acid (From Allergy Mild RASH Verified 12/27/24 14:50 Augmentin) Active Medications: Current Medications Acetaminophen (Acetaminophen 325 Mg Tablet) 650 mg PO Q6H PRN PRN Reason: Pain, Mild 1-3,fever,headache Last Admin: 12/30/24 04:02 Dose: 650 mg Albuterol Sulfate (Albuterol Sulfate (0.083%) 2.5 Mg/3 Ml Vial.Neb) 2.5 mg INHALE Q4H PRN PRN Reason: Wheezing Albuterol Sulfate (Albuterol Sulfate 90 Mcg 8 Gm Inhaler) 2 puff INHALE Q4H PRN PRN Reason: for wheezing Aspirin (Aspirin Enteric Coated 81 Mg Tablet.Dr) 81 mg PO DAILY [facility] Last Admin: 12/30/24 08:47 Dose: 81 mg Atorvastatin Calcium (Atorvastatin Calcium 80 Mg Tablet) 80 mg PO DAILY [facility] Last Admin: 12/30/24 08:47 Dose: 80 mg Calcium Carbonate (Calcium Carbonate 750 Mg Tab.Chew) 750 mg PO Q4H PRN PRN Reason: Heartburn Dextrose (Dextrose 50 % 25 Gm/50 Ml Syringe) 25 gm IVPUSH Q15M PRN; Protocol PRN Reason: per Hypoglycemia Standing Ord. Enoxaparin Sodium (Enoxaparin Sodium 40 Mg/0.4 Ml Syringe) 40 mg SUBCUT Q24H [facility] Last Admin: 12/29/24 20:57 Dose: 40 mg Fluticasone Propionate (Fluticasone Propionate Nasal 16 Gm [place]) 2 spray NOSTRIL-B DAILY [facility] Last Admin: 12/30/24 08:48 Dose: 2 spray Fluticasone/Umeclidinium/Vilanterol (Fluticasone/Umeclidinium/Vilanterol 200/62.5/25 Blst.W.Dev) 1 puff INHALE RDAILY [facility] Last Admin: 12/30/24 09:42 Dose: 1 puff Furosemide (Furosemide 20 Mg Tablet) 20 mg PO DAILY [facility]; Protocol Last Admin: 12/30/24 08:47 Dose: 20 mg Glucose (Glucose Gel 15 Gm Gel..Gram.) 15 gm PO Q15M PRN; Protocol PRN Reason: per Hypoglycemia Standing Ord. Insulin Human Lispro (Insulin Lispro 100 Unit/Ml 3 Ml Vial) 0 unit SUBCUT QIDACHS [facility]; Protocol Last Admin: 12/30/24 07:38 Dose: Not Given Isosorbide Mononitrate (Isosorbide Mononitrate 30 Mg Tab.Er.24h) 30 mg PO DAILY [facility]; Protocol Last Admin: 12/30/24 08:47 Dose: 30 mg Lidocaine (Lidocaine 4 % Patch Adh..Patch) 1 patch TRANSDERMA DAILY [facility] Last Admin: 12/30/24 08:48 Dose: 1 patch Loratadine (Loratadine 10 Mg Tablet) 10 mg PO DAILY [facility] Last Admin: 12/30/24 08:48 Dose: 10 mg Magnesium Hydroxide (Milk Of Magnesia 30 Ml Oral.Susp) 30 ml PO DAILY PRN PRN Reason: Constipation Melatonin (Melatonin 3 Mg Tablet) 6 mg PO BEDTIME PRN PRN Reason: Insomnia Meropenem (Meropenem 1 Gm Vial) 1 gm IVPUSH Q12H [facility] Last Admin: 12/30/24 06:01 Dose: 1 gm Metoprolol Tartrate (Metoprolol Tartrate 50 Mg Tablet) 50 mg PO BID [facility]; Protocol Last Admin: 12/30/24 08:48 Dose: 50 mg Morphine Sulfate (Morphine Sulfate 2 Mg/Ml Cartridge) 2 mg IVPUSH Q4H PRN; Protocol PRN Reason: Pain, Severe (Pain Scale 7-10) Last Admin: 12/29/24 01:01 Dose: 2 mg Nitroglycerin (Nitroglycerin 0.4 Mg Tab.Subl) 0.4 mg SUBLINGUAL Q5M PRN PRN Reason: Chest Pain Omeprazole (Omeprazole 40 Mg Capsule.Dr) 40 mg PO DAILY@0630 [facility] Last Admin: 12/30/24 06:01 Dose: 40 mg Ondansetron HCl (Ondansetron Hcl 4 Mg/2 Ml Vial) 4 mg IVPUSH Q8H PRN PRN Reason: Nausea and Vomiting Phenazopyridine HCl (Phenazopyridine Hcl 100 Mg Tablet) 100 mg PO DAILY PRN PRN Reason: URINARY PAIN Senna (Sennosides 8.6 Mg Tablet) 17.2 mg PO DAILY PRN PRN Reason: Constipation Sodium Chloride (0.9 % Sodium Chloride Flush 3 Ml Syringe) 3 ml IVFLUSH QSHIFT [facility] Last Admin: 12/30/24 08:48 Dose: 3 ml Vitamin D (Cholecalciferol (Vitamin D3) 25 Mcg Tablet) 50 mcg PO DAILY [facility] Last Admin: 12/30/24 08:47 Dose: 50 mcg Home Medications ?Medication ?Instructions ?Recorded ?Confirmed ?Last Taken ?Type cetirizine 10 mg tablet 10 mg PO DAILY 03/21/20 12/27/24 12/27/24 History nitroglycerin 0.4 mg sublingual 0.4 mg sublingual ONCE PRN Chest 03/21/20 12/27/24 06/18/24 History tablet Pain albuterol sulfate 2.5 mg/3 mL 2.5 mg inhalation Q4H PRN wheezing 04/28/20 12/27/24 06/18/24 History (0.083 %) solution for nebulization melatonin 10 mg tablet 10 mg PO BEDTIME PRN Sleep 08/19/21 12/27/24 06/18/24 History aspirin 81 mg tablet,delayed 81 mg PO DAILY 09/02/21 12/27/24 12/27/24 History release isosorbide mononitrate 30 mg 30 mg PO DAILY 09/02/21 12/27/24 12/27/24 History tablet,extended release 24 hr Oxygen Home Use 09/16/22 10/08/24 Unknown History nebulizers 09/16/22 10/08/24 Unknown History metformin 500 mg tablet,extended 500 mg PO DAILY 10/30/23 12/27/24 06/18/24 History release 24 hr metoprolol tartrate 50 mg tablet 50 mg PO BID 06/17/24 12/27/24 12/27/24 History atorvastatin 80 mg tablet 80 mg PO DAILY 06/20/24 12/27/24 12/27/24 History estradiol 0.01% (0.1 mg/gram) 2 g vaginal NEEDED 12/27/24 12/27/24 Unknown History vaginal cream fluticasone fur. 200 mcg-umeclid 1 ea inhalation DAILY 12/27/24 12/27/24 12/27/24 History 62.5 mcg-vilant 25 mcg inhalat.powder (Trelegy Ellipta) furosemide 20 mg tablet 20 mg PO DAILY 12/27/24 12/27/24 12/27/24 History nitrofurantoin 1 cap PO BID 12/27/24 12/27/24 12/27/24 History monohydrate/macrocrystals 100 mg capsule phenazopyridine 100 mg tablet 100 mg PO TID 12/27/24 12/27/24 12/27/24 History Physical Exam Vital Signs: Last Vital Signs Temp 97.1 F 12/30/24 07:47 Pulse 68 12/30/24 09:43 Resp 18 12/30/24 09:43 BP 141/76 H 12/30/24 08:47 Pulse Ox 95 12/30/24 07:47 O2 Del Method Room Air 12/30/24 07:47 O2 Flow Rate 2 12/30/24 03:36 BMI result Body Mass Index 31.7 Const General: no acute distress, alert and awake Resp Effort & Inspection: normal respiratory effort and able to speak in complete sentences Auscultation: clear to auscultation bilaterally Cardio Rate: regular rate Rhythm: regular rhythm Heart sounds: S1 normal heart sound present and S2 normal heart sound present GI Palpation (GI): Soft to palpation and nontender Skin Rashes: no rashes Extrem General: No edema Results Lab Results 12/29/24 06:13 12/29/24 06:13 Lab results: Chemistry 12/27/24 12/28/24 12/29/24 15:09 06:11 06:13 Sodium 141 142 143 Potassium 4.1 4.4 4.5 Carbon Dioxide 28 26 27 BUN 17 H 16 15 Creatinine 1.29 1.03 0.99 Calcium 9.0 8.5 8.8 Hematology 12/27/24 12/28/24 12/29/24 15:09 06:11 06:13 WBC 12.8 H 9.1 8.7 Hgb 11.8 L 10.3 L 10.9 L Plt Count 265 226 255 Urinalysis 12/27/24 16:49 Urine Color Scurry Urine Appearance Turbid Urine pH 5.0 Ur Specific Ragley 1.015 Urine Protein See Note Urine Glucose (UA) See Note Urine Ketones See Note Urine Blood See Note Urine Nitrite See Note Ur Leukocyte Esterase See Note Urine RBC >20 H Urine WBC >50 H Ur Squamous Epith Cells 3-5 Hyaline Casts 0-2 Assessment and Plan (1) CKD (chronic kidney disease) stage 3, GFR 30-59 ml/min: Qualifiers: Chronic kidney disease stage 3 subtype: stage 3a (GFR 45-59) Qualified Code(s): N18.31 - Chronic kidney disease, stage 3a Status: Acute Plan Patient with baseline CKD3 without significant proteinuria she is cleared to have midline or PICC insertion for administration of antibiotics. Discussed with Dr Tom. Will sign off, happy to discuss new concerns or changes if they arise. Procedures Date of Service Date of Service: 12/30/24
[2024-12-30] MEDS: Fluticasone/Umeclidinium/Vilanterol 200/62.5/25 BLST.W.DEV 1 PUFF INHALE (09:42)
[2024-12-30 09:43] VITALS: PULSE 68; RESP 18; O2SAT 95
--- NOTE | 2024-12-30 11:24 | PM.DS ---
DS: Providers Provider Date of Service: 12/30/24 Date of admission: 12/27/24 20:39 Date of discharge: 12/30/24 Primary care physician: Kathy Rizo MD DS: Diagnosis Discharge Diagnosis (1) CKD (chronic kidney disease) stage 3, GFR 30-59 ml/min: Status: Acute DS: Summary Hospital Course Hospital Course: Admision hpi Chief Complaint: painful urination This is a 79-year-old female with pertinent history of chronic hypoxemic respiratory failure due to COPD on baseline 2 L oxygen at bedtime, arq-mqoxlmi-vhtjgtacu diabetes mellitus, gastroesophageal reflux disease, IBS, hypertension who presents to the emergency department for evaluation of ongoing dysuria. Patient went to her urologist's office 1 week ago due to urinary retention when she underwent instrumentation. Subsequently patient developed increased urinary urgency, frequency and dysuria. Patient went to urgent care about 7 days prior to presentation and was started on outpatient p.o. antibiotics. Her symptoms did not improve after 2-3 days and her p.o. antibiotics was changed. She continued to have dysuria and decided to come to the ER. Her outpatient urinary culture obtained on 12/21 with ESBL E coli. He denies fever but has chills. No nausea, vomiting, chest pain, palpitations, abdominal pain, changes in bowel habits. In the emergency department, patient with leukocytosis 12.8 and initiated on IV meropenem. Hospital course: 79-year-old female with pertinent history of chronic hypoxemic respiratory failure due to COPD on baseline 2 L oxygen at bedtime, jlk-ldjohja-bmrdhicmf diabetes mellitus, gastroesophageal reflux disease, IBS, hypertension admitted for UTI with sepsis and found to have ESBL E.coli, she was on Macrobid on ouatient basis; she has been treated with IV Meropenem since 12/27, she has clicinally improved. Will treat for a total of 10 days with Ertapenem upon discharge for a total of 10 days of antibioticvs. COPD with chronic hypoxemic respiratory failure No acute exacerbation Continue maintenance inhalers, albuterol p.r.n. 2 L O2 at bedtime Xne-fdfrydo-hejhjdpoj type 2 diabetes without hyperglycemia POC glucose, diabetic diet Sliding scale insulin HypERtension Continue metoprolol, isosorbide CKD stage 3 Baseline renal function Time Attestation Discharge Coordination Time (in mins): 40 Quality: Safe Use of Opioids Does Pt have an Active Cancer Diagnosis on the Problem List?: No Quality: Stroke Does the patient have a stroke diagnosis?: No Physical Exam Vital Signs: Vital Signs: Last Vital Signs Temp 97.1 F 12/30/24 07:47 Pulse 68 12/30/24 09:43 Resp 18 12/30/24 09:43 BP 141/76 H 12/30/24 08:47 Pulse Ox 95 12/30/24 07:47 O2 Del Method Room Air 12/30/24 07:47 O2 Flow Rate 2 12/30/24 03:36 BMI result Body Mass Index 31.7 Const: Other: General: AO X 3, no acute distress Resp: CTA bilateral CVS: S1,S2,RRR GI: +BS, NT, no distention Skin: No rash Neuro: motor grossly intact Psych: appropriate affect DS: Data Data Completed and Pending Labs on day of discharge: Laboratory Results - last 24 hr 12/29/24 12/29/24 12/29/24 11:21 16:01 20:30 POC Glucose 179 H 133 H 147 H 12/30/24 07:29 POC Glucose 123 H Preliminary micro results at discharge 12/27/24 17:10 Blood Culture - Preliminary Blood - Venous No growth after 48 hours. 12/27/24 17:10 Blood Culture - Preliminary Blood - Venous No growth after 48 hours. Discharge Plan Discharge Patient Disposition: Home Health Service Discharge Diagnosis: ESBL E.coli UTI Referrals: Kathy Christopher MD [Primary Care Provider, Internal Medicine] - 1 Week Discharge Medications: New ertapenem 1 gram recon soln 1 g IV Q24H Qty: 6 0RF Rx Instructions: next dose 12/31/2024 Continued cholecalciferol (vitamin D3) 50 mcg (2,000 unit) capsule 50 mcg PO DAILY 30 Days Qty: 30 3RF dexlansoprazole 60 mg capsule,biphase delayed releas 60 mg PO DAILY Qty: 90 3RF lidocaine 5 % adhesive patch,medicated 1 patch topical DAILY Qty: 15 0RF Rx Instructions: leave on most painful area for up to 12 hrs atorvastatin 80 mg tablet 80 mg PO DAILY phenazopyridine 100 mg tablet 100 mg PO TID furosemide 20 mg tablet 20 mg PO DAILY Trelegy Ellipta 200-62.5-25 mcg blister with device 1 ea INHALATION DAILY estradiol 0.01 % (0.1 mg/gram) cream 2 g vaginal NEEDED Rx Instructions: Pea-sized amount to urethra daily albuterol sulfate 2.5 mg /3 mL (0.083 %) solution for nebulization 2.5 mg inhalation Q4H PRN (Reason: wheezing) nitroglycerin 0.4 mg tablet, sublingual 0.4 mg sublingual ONCE PRN (Reason: Chest Pain) cetirizine 10 mg tablet 10 mg PO DAILY aspirin 81 mg tablet,delayed release (DR/EC) 81 mg PO DAILY isosorbide mononitrate 30 mg tablet extended release 24 hr 30 mg PO DAILY fluticasone propionate 50 mcg/actuation spray,suspension 2 spray intranasal DAILY 30 Days Qty: 15.8 11RF melatonin 10 mg tablet 10 mg PO BEDTIME PRN (Reason: Sleep) (DME) Oxygen Home Use Kit See Rx Instructions .Route Rx Instructions: As directed (DME) nebulizers Misc See Rx Instructions .Route Rx Instructions: As directed metoprolol tartrate 50 mg tablet 50 mg PO BID metformin 500 mg tablet extended release 24 hr 500 mg PO DAILY albuterol sulfate 90 mcg/actuation HFA aerosol inhaler 2 puff PO Q4H PRN (Reason: for wheezing) Qty: 1 11RF sennosides [senna] 8.6 mg tablet 17.2 mg PO DAILY PRN (Reason: constipation) 90 Days Qty: 180 1RF Discontinued nitrofurantoin monohyd/m-cryst 100 mg capsule 1 cap PO BID Diet: Diabetic diet Activity on Discharge: As tolerated Stand Alone Forms: Patient Portal Discharge page Print Language: Macedonian Care Plan Goals: recovery from uti Health Concerns: uti with sepsis Plan of Treatment: take Ertapenem 1 gram daily for 6 more days follow up with your doctor in a week Assessment: see above
[2024-12-30 11:37] VITALS: BP 140/61; PULSE 89; RESP 18; TEMP 36.7; O2SAT 96
[2024-12-30 11:38] LABS: Glucose, Whole Blood 96 mg/dL (60-115)
[2024-12-30 15:30] VITALS: BP 130/59; PULSE 99; RESP 20; TEMP 36.6; O2SAT 94
--- NOTE | 2024-12-30 16:11 | MHC.CM.PN ---
IMM 12/30/24 Patient will discharge today to home with IV ABX. She is in IR now for Midline placement. Discharge info has been sent to [facility]. She has arranged for transportation home.
--- NOTE | 2024-12-30 16:44 | P.F2F_ITS ---
Service Date Service Date: 12/30/24 Encounter Date of encounter: 12/30/24 Reasons for Services Signs and symptoms assessed: Resistant UTI infection causing unwellness, Reason for detention: medication management, medication treatment and teach disease management Homebound: Leaving the home is medically contraindicated at this time without the asist of a device and/or another person due th the listed conditions above and below. Reason homebound: weakness related to hospital stay and unable to drive Homebound supporting statement: homebound due to weaness from hospitalization and therefore needs the assistance of another person Certification: Based on the above findings, I certify that this patient is confined to the home and needs intermittent detention care, physical therapy and/or speech therapy, or continues to need occupational therapy. The patient is under my care, and I have initiated the establishment of the plan of care. The patient will be followed by a physician who will periodically review the plan of care. Time Spent With Patient Time: Total time managing care of this patient today ____ minutes.
--- NOTE | 2024-12-30 16:47 | HO.MIDLINE ---
Midline Insertion MIDLINE INSERTION Diagnosis: UTI sepsis Indication: ABT Pertinent Labs: Reviewed: Dr Rebollar consulted with Dr Tom regarding GFR 54. Midline approved by Dr. Tom Technique: Using sterile technique including cap and mask, glove and drape, the right arm was prepped and draped in the usual sterile fashion of full barrier technique with CHG. Using ultrasound guidance, right basilic vein access was obtained . 4frsingle lumen non PASV trimmed to 11cm was positioned. The procedure was performed in [facility]. Ultrasound was used to document vein patency and for needle entry. A formal ultrasound picture was recorded. [employer] has released the line for use and it is currently dressed with a StatLock, Tegaderm, and CHG disc. Verification has been performed for blood return and line patency. Arm Circumference: 33cm Equipment: [employer] PowerMidline Catheter Catheter Type: 4FR single lumen Non-PASV trimmed to 11cm Lot #: [id number]
== END 2024-12-30 17:54 | disposition home health service (06) | DRG 872 ==
LOC: HO.ED 16:25 → HO.EDOVER 20:46 → HO.S3 12-28 11:44
PROVIDERS: Physician Assistant; Admitting Provider Student in an Organized Health Care Education/Training Program; Emergency Provider Emergency Medicine Emergency Medical Services; PCP Internal Medicine; Visit Provider Internal Medicine
DX: A41.9 Sepsis, unspecified organism (principal); N39.0 Urinary tract infection, site not specified; J96.11 Chronic respiratory failure with hypoxia; Z16.12 Extended spectrum beta lactamase (ESBL) resistance; I12.9 Hypertensive chronic kidney disease with stage 1 through stage 4 chronic kidney disease, or unspecified chronic kidney disease; E11.22 Type 2 diabetes mellitus with diabetic chronic kidney disease; N18.31 Chronic kidney disease, stage 3a; B96.20 Unspecified Escherichia coli [E. coli] as the cause of diseases classified elsewhere; Z87.440 Personal history of urinary (tract) infections; Z99.81 Dependence on supplemental oxygen; Z79.51 Long term (current) use of inhaled steroids; Z79.899 Other long term (current) drug therapy
CPT/HCPCS: 36410; 36415; 74177; 80048; 80053; 81001; 82947; 83605; 85025; 87040; 87086; 87088; 87186; 94640; 99285; C1751; J1335; J1650; J2185; J2270; Q9967

== ENCOUNTER → 2024-12-27 16:49 | Outpatient (BNV) | payer OTHER, SELFPAY | PROVIDERS: Admitting Provider Student in an Organized Health Care Education/Training Program; Emergency Provider Emergency Medicine Emergency Medical Services; PCP Internal Medicine; Visit Provider Radiology Diagnostic Radiology | DX: R10.30 Lower abdominal pain, unspecified (principal) | CPT/HCPCS: 74177 ==

== ENCOUNTER → 2024-12-27 20:39 | Outpatient (BNV) | payer OTHER, SELFPAY | PROVIDERS: Admitting Provider Student in an Organized Health Care Education/Training Program; Emergency Provider Emergency Medicine Emergency Medical Services; PCP Internal Medicine; Visit Provider Student in an Organized Health Care Education/Training Program | DX: A49.9 Bacterial infection, unspecified (principal); Z16.12 Extended spectrum beta lactamase (ESBL) resistance | CPT/HCPCS: 99222; 99232 ==

== ENCOUNTER → 2024-12-27 20:39 | Outpatient (BNV) | payer OTHER, SELFPAY | PROVIDERS: Admitting Provider Student in an Organized Health Care Education/Training Program; Emergency Provider Emergency Medicine Emergency Medical Services; PCP Internal Medicine; Visit Provider Nurse Practitioner Family | DX: N18.31 Chronic kidney disease, stage 3a (principal) | CPT/HCPCS: 99221 ==

== ENCOUNTER 2025-01-10 14:30 | Emergency (ER) | payer OTHER, SELFPAY ==
--- NOTE | ~2025-01-10 | CT_ITS ---
EXAMINATION: CT HEAD WITHOUT CONTRAST CLINICAL INFORMATION: headaches for one week COMPARISON: January 23, 2019 TECHNIQUE: Contiguous axial imaging was performed from the skull base to vertex without intravenous administration of contrast. This CT examination was performed using dose optimization techniques as appropriate, variously including the following: *Automated exposure control *Adjustment of mA and/or kV according to patient size (this includes techniques or standardized protocols for targeted exams where dose is matched to indication/reason for exam; i.e. extremities or head) *Use of iterative reconstruction technique DLP: 624 mGy-cm FINDINGS: No acute intracranial hemorrhage, mass effect, midline shift, hydrocephalus or herniation. Mcmillan-white matter differentiation is normal. Sellar/suprasellar region demonstrated no CSF prominence suggesting diaphragmatic sella insufficiency. Craniocervical junction demonstrates normal position of the cerebellar tonsils. No air-fluid levels in the paranasal sinuses. Small adjacent cysts versus polyp, left maxillary sinus. Tympanic cavities and mastoid cells are aerated. Degenerative changes in the periodontal C1 region. Questionable incomplete fusion posterior arch of C1. Old traumatic deformity right lamina papyracea. Calcified plaques in the cavernous and supraclinoid segments both ICAs. CT/CT head/brain wo IV con IMPRESSION: No acute intracranial hemorrhage. Stable appearance of the brain. Electronically signed by: Rashid Natarajan MD 01/10/2025 03:54 PM EDT
[2025-01-10 14:43] VITALS: BP 147/88; PULSE 88; RESP 16; TEMP 36.8; O2SAT 94; BMI 31.5
--- NOTE | 2025-01-10 14:43 | ED_ITS ---
HPI - General Adult General Chief complaint: Headache Stated complaint: Head Pain PCP Req CT Scan Time Seen by Provider: 01/10/25 17:23 Source: patient, RN notes reviewed and old records reviewed Mode of arrival: ambulatory Limitations: no limitations History of Present Illness ED Provider: Kath HPI narrative: [age] year old female with past medical history significant for diabetes, COPD, chronic pain, presents for evaluation of an intermittent headache. The patient was seen at urgent care and sent here for a CT scan. She has been taking gabapentin without any improvement. She reported intermittent blurry vision to nursing, but denies this to me. She reports no blurry vision at this moment. Denies any eye pain Denies any fevers, chills, cough, shortness of breath pain Denies any weakness, slurred speech Related Data Home Medications ?Medication ?Instructions ?Recorded ?Confirmed cetirizine 10 mg tablet 10 mg PO DAILY 03/21/2012/17 nitroglycerin 0.4 mg sublingual 0.4 mg sublingual ONCE PRN Chest 03/21/20 12/27/24 tablet Pain albuterol sulfate 2.5 mg/3 mL 2.5 mg inhalation Q4H MT N wheezing 04/28/20 12/27/24 (0.083 %) solution for nebulization melatonin 10 mg tablet 10 mg PO BEDTIME PRN Sleep 0 08/19/21 12/27/24 aspirin 81 mg tablet,delayed 81 mg PO DAILY 09/02/21 0 12/27/24 release isosorbide mononitrate 30 mg 30 mg PO DAILY 09/02/21 0 12/27/24 tablet,extended release 24 hr Oxygen Home Use 09/16/22 10/08/24 nebulizers 09/16/22 10/08/24 metformin 500 mg tablet,extended 500 mg PO DAILY 10/2912/27/24 release 24 hr metoprolol tartrate 50 mg tablet 50 mg PO BID 06/17/24 12/27/24 atorvastatin 80 mg tablet 80 mg PO DAILY 06/20/2412/17 estradiol 0.01% (0.1 mg/gram) 2 g vaginal NEEDED 12/27/24 vaginal cream fluticasone fur. 200 mcg-umeclid 1 ea inhalation DAILY 12/27/24 12/27/24 62.5 mcg-vilant 25 mcg inhalat.powder (Trelegy Ellipta) furosemide 20 mg tablet 20 mg PO DAILY 12/27/2412/17 phenazopyridine 100 mg tablet 100 mg PO TID 12/27/24 0 12/27/24 Previous Rx's ?Medication ?Instructions ?Recorded cholecalciferol (vitamin D3) 50 50 mcg PO DAILY 30 day s #30 caps 04/08/20 mcg (2,000 unit) capsule fluticasone propionate 50 2 spray intranasal DAILY 30 days 08/11/22 mcg/actuation nasal #15.8 mL spray,suspension lidocaine 5 % topical patch 1 patch topical DAILY #15 ea 04/11/24 albuterol sulfate 90 mcg/actuation 2 puff PO Q4H PRN f or wheezing #1 05/14/24 aerosol inhaler ea dexlansoprazole 60 mg 60 mg PO DAILY #90 caps 06/20 02/10 capsule,biphase delayed release sennosides 8.6 mg tablet (senna) 17.2 mg (2 x 8.6 mg) PO DAILY PRN 09/11/24 constipation 90 days #180 tabs ertapenem 1 gram solution for 1 g IV Q24H #6 ea injection Allergies Allergy/AdvReac Type Severity Reaction Status Date / Time amoxicillin (Augmentin) Allergy Mild Rash Verified 01/10/25 14:45 clavulanic acid (From Allergy Mild RASH Verified 01/10/25 14:45 Augmentin) Review of Systems 2 Constitutional: Constitutional: Denies body ache(s), Denies chills, Denies fever(s), Reports headache(s) and Denies weakness Eyes: Eyes: Denies blurry vision, Denies exophthalmos, Denies floaters and Denies irritation ENT: Denies vertigo, Denies dizziness, Reports headache(s) and Denies disequilibrium Cardiovascular: Cardiovascular: Denies chest pain and Denies dyspnea on exertion Respiratory: Respiratory: Denies cough and Denies dyspnea on exertion Gastrointestinal: Gastrointestinal: Denies abdominal pain, Denies nausea and Denies vomiting Musculoskeletal: Musculoskeletal: Denies back pain, Denies stiffness and Denies tingling Integumentary/Breasts: Skin/Breast: Denies rash Neurologic: Denies vertigo, Denies dizziness, Reports headache(s), Denies tingling, Denies paresthesias, Denies disequilibrium and Denies weakness Psychiatric: Psychiatric: Denies anxiety PMFSH Past Medical History Medical History Obesity (BMI 30.0-34.9) Chronic respiratory failure Asthma-COPD overlap syndrome Incontinence in female History of adenomatous polyp of colon Pneumonitis Bronchopneumonia Hypogammaglobulinemia Chronic rhinitis Dizziness Headache Hyperlipidemia HTN (hypertension) Diabetes COPD (chronic obstructive pulmonary disease) Surgical History S/P right coronary artery (RCA) stent placement H/O colonoscopy History of foot surgery History of toe surgery History of bunionectomy Family History Family History Mother No problems noted. Father No problems noted. Social History Social History Household Members: Family Housing: Apartment Do you presently have visiting nurse or other home services: Yes (DINING ROOM MANAGER) Alcohol intake: never Patient Tobacco Use Status: Former Tobacco user Tobacco use type: Cigarette Second Hand Smoke Exposure: No Advance Directives: Yes Advance Directives on File: Yes Advance Directives Date on File: 10/03/23 service: No Current occupational status: retired Sexual orientation: Straight/Heterosexual Gender identity: Female Physical Exam ED Vital Signs: Vital Signs - 24 hr 01/10/25 14:43 Temperature 98.3 F Pulse Rate 88 Respiratory Rate 16 Blood Pressure 147/88 H Pulse Oximetry 94 Oxygen Delivery Method Room Air BMI result Body Mass Index 31.5 Const General: healthy appearing, comfortable, no acute distress, alert and awake Nutritional Appearance: well nourished Orientation/consciousness: patient oriented x3 HENMT Head: Yes normocephalic and Yes atraumatic Eyes Eyelids: Yes eyelids normal Conjunctivae: conjunctivae normal Sclerae: sclerae normal Corneas: corneas normal Pupils: Equal, round and reactive pupils present EOM: EOMs intact bilaterally Neck Neck: Yes full ROM Resp Effort & Inspection: normal respiratory effort, able to speak in complete sentences and not labored GI Inspection: No distended Palpation (GI): Soft to palpation, not firm, nontender, no guarding and not rigid Skin General skin exam: elasticity normal Neuro General: patient oriented x3 Cranial nerves: Yes CN's II-XII intact bilaterally, Yes Equal, round and reactive pupils present and Yes Bilaterally intact EOM present Cognition (Neuro): normal cognition Extrem Other: Moving all extremities well without any obvious deformities Course Course Course Narrative: RME, this is a rapid medical exam performed by Elio Stockton please refer to primary provider for complete H&P- 79 old female presents for evaluation of intermittent left-sided headaches for the last week. She has been prescribed gabapentin by her PCP without improvement. She was sent here for a head CT. Plan for labs, urinalysis and a CT scan of the head. NIH stroke score of 0 Medical Decision Making Medical Decision Making [facility] Narrative: 79-year-old female presents for evaluation of intermittent headaches for the last week. Currently she denies any headache. Denies any blurry vision, she has no slurred speech or weakness. NIH stroke score of 0. She had a CT scan of the brain which did not show any abnormal findings to explain your symptoms. I did order basic labs, she has a mildly elevated ESR of 36 which is pretty consistent today she has been for the last 5 years. I do not suspect temporal arteritis at this time. The patient is also a diabetic. Given that I have a low suspicion of temporal arteritis I feel it is appropriate to hold off on steroids. We will treat the patient is symptomatic care happy Differential Diagnosis Differential Diagnoses: The differential diagnosis associated with the presentation includes Acute headache Tension headache Cluster headache Intracranial hemorrhage Brain mass Lab Data [facility] Lab Attestation statement: I reviewed the patient's lab results. No leukocytosis. No significant anemia. Normal platelet count. Significant electrolyte abnormalities. Mild elevation of ESR 01/10/25 15:25 01/10/25 15:25 Labs: Lab Results 01/10/25 Range/Units 15:25 WBC 9.2 (4.8-10.8) X10*3/uL RBC 3.64 L (4.20-5.50) X10*6/uL Hgb 11.1 L (12.0-16.0) g/dl Hct 33.0 L (37.0-47.0) % MCV 90.7 (80.0-98.0) fL MCH 30.5 (27.0-33.0) pg MCHC 33.6 (31.0-35.0) g/dl RDW 16.1 H (11.0-16.0) % Plt Count 318 (160-400) X10*3/uL MPV 10.0 (9.4-12.3) fL Immature Gran % (Auto) 0.4 (0.0-0.4) % Neut % (Auto) 63.2 (45-73) % Lymph % (Auto) 25.2 (20-40) % [place] % (Auto) 9.8 (2-11) % Eos % (Auto) 1.2 (0-4) % Baso % (Auto) 0.2 (0-2) % Lymph # (Auto) 2.3 (1.2-4.9) X10*3/uL [place] # (Auto) 0.9 (0.1-1.2) X10*3/uL Eos # (Auto) 0.1 (0.0-0.4) X10*3/uL Baso # (Auto) 0.0 (0.0-0.2) X10*3/uL Abs Immat Gran (auto) 0.04 H (0.00-0.03) X10*3/uL Absolute Neuts (auto) 5.8 (2.0-8.3) x10*3/uL Absolute Nucleated RBC 0.000 (0.0-0.012) X10*3/uL Nucleated RBC % (auto) 0.0 (0.0-0.2) /100WBC ESR 36 H (0-20) MM/HR Sodium 145 (135-145) mmol/L Potassium 4.8 (3.3-5.1) mmol/L Chloride 109 H (96-108) mmol/L Carbon Dioxide 25 (22-29) mmol/L Anion Gap 16 (12-20) BUN 15 (9-16) mg/dL Creatinine 0.95 (0.5-1.4) mg/dL Estim Creat Clear Calc 49.3 Estimated GFR 57 Random Glucose 97 (60-115) mg/dL Calcium 9.0 (8.4-10.2) mg/dL Independent Interpretation I performed an independent interpretation of an: CT Scan Interpretation: No intracranial hemorrhage Radiology Impression Discussion of test interpretation with radiology: I have reviewed the radiologist's reading. Radiologist Impression: FINDINGS: No acute intracranial hemorrhage, mass effect, midline shift, hydrocephalus or herniation. Mcmillan-white matter differentiation is normal. Sellar/suprasellar region demonstrated no CSF prominence suggesting diaphragmatic sella insufficiency. Craniocervical junction demonstrates normal position of the cerebellar tonsils. No air-fluid levels in the paranasal sinuses. Small adjacent cysts versus polyp, left maxillary sinus. Tympanic cavities and mastoid cells are aerated. Degenerative changes in the periodontal C1 region. Questionable incomplete fusion posterior arch of C1. Old traumatic deformity right lamina papyracea. Calcified plaques in the cavernous and supraclinoid segments both ICAs. CT/CT head/brain wo IV con IMPRESSION: No acute intracranial hemorrhage. Stable appearance of the brain. Electronically signed by: Rashid Natarajan MD 01/10/2025 03:54 PM EDT RP Prescription Management I considered prescription management with: Pain Medication and Other (Corticosteroid) Chronic Conditions Patient?s care impacted by: Diabetes and Hypertension Discharge Plan Discharge Clinical Impression: Headache Patient Disposition: Home, Self-Care Instructions: Acute Headache (ED) Additional Instructions: Your CT scan did not show any concerning findings. Your blood work was reassuring. You may continue ibuprofen/Tylenol for your headache. Follow up with your primary doctor, return for new or worsening symptoms Prescriptions: No Action cholecalciferol (vitamin D3) 50 mcg (2,000 unit) capsule 50 mcg PO DAILY 30 Days Qty: 30 3RF dexlansoprazole 60 mg capsule,biphase delayed releas 60 mg PO DAILY Qty: 90 3RF lidocaine 5 % adhesive patch,medicated 1 patch topical DAILY Qty: 15 0RF Rx Instructions: leave on most painful area for up to 12 hrs atorvastatin 80 mg tablet 80 mg PO DAILY phenazopyridine 100 mg tablet 100 mg PO TID furosemide 20 mg tablet 20 mg PO DAILY Trelegy Ellipta 200-62.5-25 mcg blister with device 1 ea INHALATION DAILY estradiol 0.01 % (0.1 mg/gram) cream 2 g vaginal NEEDED Rx Instructions: Pea-sized amount to urethra daily ertapenem 1 gram recon soln 1 g IV Q24H Qty: 6 0RF Rx Instructions: next dose 12/31/2024 albuterol sulfate 2.5 mg /3 mL (0.083 %) solution for nebulization 2.5 mg inhalation Q4H PRN (Reason: wheezing) nitroglycerin 0.4 mg tablet, sublingual 0.4 mg sublingual ONCE PRN (Reason: Chest Pain) cetirizine 10 mg tablet 10 mg PO DAILY aspirin 81 mg tablet,delayed release (DR/EC) 81 mg PO DAILY isosorbide mononitrate 30 mg tablet extended release 24 hr 30 mg PO DAILY fluticasone propionate 50 mcg/actuation spray,suspension 2 spray intranasal DAILY 30 Days Qty: 15.8 11RF melatonin 10 mg tablet 10 mg PO BEDTIME PRN (Reason: Sleep) (DME) Oxygen Home Use Kit See Rx Instructions .Route Rx Instructions: As directed (DME) nebulizers Mis See Rx Instructions .Route Rx Instructions: As directed metoprolol tartrate 50 mg tablet 50 mg PO BID metformin 500 mg tablet extended release 24 hr 500 mg PO DAILY albuterol sulfate 90 mcg/actuation HFA aerosol inhaler 2 puff PO Q4H PRN (Reason: for wheezing) Qty: 1 11RF sennosides [senna] 8.6 mg tablet 17.2 mg PO DAILY PRN (Reason: constipation) 90 Days Qty: 180 1RF Discharge Date/Time: 01/10/25 17:40 Print Language: Jamaican
[2025-01-10 15:38] LABS: MANUAL DIFF FLAG NO
[2025-01-10 15:43] LABS: Hematocrit 33.0 % (37.0-47.0); Hemoglobin 11.1 g/dl (12.0-16.0); Imm Gran Abs Auto 0.04 X10*3/uL (0.00-0.03); Imm Gran Pct Auto 0.4 % (0.0-0.4); Lymphocytes Absolute Auto 2.3 X10*3/uL (1.2-4.9); Mean Corpuscular HGB Conc 33.6 g/dl (31.0-35.0); Mean Corpuscular Hemoglobin 30.5 pg (27.0-33.0); Mean Corpuscular Volume 90.7 fL (80.0-98.0); NRBC Abs Auto 0.000 X10*3/uL (0.0-0.012); NRBC Pct Auto 0.0 /100WBC (0.0-0.2); Platelet Count 318 X10*3/uL (160-400); Red Blood Count 3.64 X10*6/uL (4.20-5.50); White Blood Count 9.2 X10*3/uL (4.8-10.8)
[2025-01-10 15:57] LABS: Anion Gap 16 (12-20); Blood Urea Nitrogen 15 mg/dL (9-16); Calcium 9.0 mg/dL (8.4-10.2); Carbon Dioxide 25 mmol/L (22-29); Chloride 109 mmol/L (96-108); Creatinine Clr Calc Pharmacy 49.3; Estimated Glomerular Filt Rate 57; Potassium 4.8 mmol/L (3.3-5.1); Sodium 145 mmol/L (135-145)
--- OUTSIDE RECORDS SUMMARY | 2025-01-10 17:38 | XMS_ITS | Clinical Summary ---
Author Organization [facility] Address [address] [place] [address] Phone Care Team Providers Care Hand Sizer Name Role Phone Kathy Perez MD Primary [...] or Shortness of Breath). 10/11/19 23 Active cholecalciferol (VITAMIN D-3) 50 mcg (2,000 [...] times a week at night. 04/05/20 Active fluticasone-ume clidinium-vilan terol (Trelegy Ellipta) 100-62.5-25 mcg inhaler Inhale by mouth. 11/04/19 Active plecanatide (Trulance) 3 mg tablet Take 1 tablet (3 mg total) by mouth 1 (one) time each day. 02/11/20 Active isosorbide mononitrate (IMDUR) 30 mg 24 hr tablet TAKE 1 TABLET BY MOUTH EVERY DAY IN THE MORNING 90 tablet 3 05/09/20 24 Active azelastine (ASTELIN) 137 mcg (0.1 %) nasal spray Administer 2 sprays into each nostril 2 (two) times a day. Use in each nostril as directed Active fluticasone propionate (FLONASE) 50 mcg/actuation nasal spray Administer 2 sprays into each nostril 1 (one) time each day. Shake gently. Before first use, prime pump. After use, clean tip and replace cap. Active albuterol 2.5 mg /3 mL (0.083 %) nebulizer solution TAKE 1 VIAL BY NEBULIZATION EVERY 4 HOURS NEEDED FOR WHEEZING 75 mL 1 07/16/19 25 Active dexlansoprazole (DEXILANT) [address] capsule [...] EACH FLARE 12 tablet 09/27/19 25 Active cefuroxime (CEFTIN) 250 mg tablet Take [...] as instructed 100 each 11 10/16/19 25 026 Active metFORMIN XR (GLUCOPHAGE-XR) 500 mg 24 hr tablet TAKE 1 TABLET BY MOUTH EVERY DAY WITH BREAKFAST 90 tablet 2 10/17/19 25 Active lidocaine (LIDODERM) 5 % patchIndication s:Neck pain,Shoulder pain, unspecified chronicity, unspecified laterality Apply for no more than 12 hours in any [address] 1 patch on the skin 1 (one) time each day. Apply for no more than 12 hours in any 24 hour period. 30 patch 1 11/27/19 25 Active gabapentin (NEURONTIN) 100 mg capsule Take 1 capsule (100 mg total) by mouth 3 (three) times a day. 30 each 01/07/20 25 Active sulfamethoxazol e-trimethoprim (Bactrim) 400-80 mg per tabletIndicatio ns:Recurrent UTI (urinary tract infection) Take 0.5 tablets by mouth 3 (three) times a week. 6 each 2 01/11/20 25 025 Active methocarbamoL (ROBAXIN) 500 mg tablet Take 1 tablet (500 mg total) by mouth 3 (three) times a day. PRN 025 Discontin ued(Thera py completed ) predniSONE (DELTASONE) 10 mg tablet Take 1 tablet (10 mg total) by mouth 1 (one) time each day. 40 mg for 3 days. 30 mg for 3 days. 20 mg for 3 days. 10 mg for 3 days. Then discontinue. 025 Discontin ued(Thera py completed ) Active Problems Problem Noted Date Diagnosed Date Osteoarthritis 04/23/2024 Class 1 obesity due to exces s calories with serious comorbidity and body mass index (BMI) of 32.0 to 32.9 in adult 04/23/2024 Mucopurulent chronic bronchitis (CMS/HCC V24, CM S/HCC V28) 05/24/2023 Palpitations 05/24/2023 Chronic heart failure with p reserved ejection fraction (CMS/HCC V24, [facility] V28) 11/24/2022 Assessment & Plan (06/04/2024 4:36 [...] Chest pain 11/18/2022 CHF (congestive heart failure) ([facility] V24, [facility] V28) 11/18/2022 Assessment & Plan (07/30/2024 [...] disease, without long-term current use of insulin ([facility] V24, [facility] V28) 11/04/2019 Mammographic microcalcification 01/10/2019 Hearing decreased, bilateral 12/18/2018 COPD (chronic obstructive pu lmonary disease) ([facility] V24, [facility] V28) 12/10/2018 Assessment & Plan (07/30/2024 3:00 PM EST): Recent exacerbation, was evaluated in the emergency. Started on prednisone. Currently stable. Supplemental oxygen dependent 12/10/2018 Obstructive sleep apnea 11/21/2018 Overview (04/23/2024): [facility] Home Sleep Apnea Test: Date 11/18/2018; Wt 192#; BMI 33; HAYLEY 16, AI 1; HI 14; Unclassified apneas 0; Obstructive apneas 10; Central apneas 0; Mixed apneas 0; hypopneas 126; average oxygen saturation 88% (lowest 73% with saturations <88% for 5% or more of study) [facility] Polysomnogram treatment study. Date 01/11/2019. [...] kidney disease) stage 3, GFR 30-59 ml/min ([facility] V24, [facility] V28) 05/31/2017 Assessment & Plan (07/30/2024 3:00 PM EST): GFR around 50. Stable over the last year. Encouraged to avoid nephrotoxics, good control of diabetes and hypertension were discussed with the patient. Iron deficiency anemia due to chronic blood loss 08/18/2016 IBS (irritable bowel syndrome) 03/25/2016 Recurrent HSV (herpes simplex virus) 12/11/2015 Diabetes mellitus type 2 wit h neurological manifestations ([facility] V24, [facility] V28) 08/01/2015 Overview (04/23/2024): A1C 6.5 [...] x1 06/2015 Coronary artery disease invo lving chippewa-cree coronary artery of chippewa[place]cree heart without angina pectoris 01/21/2015 Overview (04/23/2024): [...] 07/17/2012 Overview (04/23/2024): Dr. Stephenson at [address] [place] [address] drive GERD (gastroesophageal reflux disease) 3 Insomnia 07/17/2012 [...] Encounters Date Type Department Care Team Description 01/06/2025 11:20 AM EDT Lab Draw Station [address] Recurrent UTI (urinary tract infection); Chronic kidney disease, stage 3a ([facility] V24, [facility] V28); Renal osteodystrophy; Type 2 diabetes mellitus with diabetic chronic kidney disease ([facility] V24, [facility] V28) 01/06/2025 10:30 AM EDT Office Visit Adult Medicine [address] [phone] Kathy Perez MD Hospital discharge follow-up (Primary Dx); Recurrent UTI (urinary tract infection); Type 2 diabetes mellitus without complication, without long-term current use of insulin ([facility] V24, [facility] V28); 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 [facility] [address] [phone] Eve Juan MD IV ANTIBIOTICS 12/31/2024 Telephone Urogynecology [address] [place] [phone] Rachael Huerta MA follow up regarding last visit 12/31/2024 Telephone Adult Medicine [address] [phone] Quinten cAosta LPN Hospital Follow-up (Patient needs a urgent hospital follow up ) 12/30/2024 Telephone Adult Medicine [address] [phone] Kathy Perez MD VNA 12/23/2024 Telephone Urogynecology [address] [place] [phone] Jossie Agudelo MA UTI 12/18/2024 11:30 AM EDT Office Visit [facility] [phone] Eve Juan MD Dysuria (Primary Dx); OAB (overactive bladder) 11/28/[address] [phone] Kathy Perez MD Sore Throat 11/26/2024 [facility] [phone] Eve Juan MD Provider call back 10/24/2024 11:20 AM EDT Office Visit [facility] [address] [facility] [address] [place] [phone] Kameron Zuñiga MD Coronary artery disease involving chippewa-cree coronary artery of chippewa-cree heart without angina pectoris (Primary Dx); SOTELO (dyspnea on exertion); Tachycardia; Chronic obstructive pulmonary disease, unspecified COPD type (CMS/HCC V24, CMS/HCC V28) 10/24/2024 Telephone Adult [address] [phone] Kathy Perez MD Vaginal Bleeding 10/24/2024 Telephone Adult Medicine [address] [phone] Kathy Perez MD 10/21/2024 Telephone Adult Medicine [address] [phone] Kathy Perez MD Fitting for DME 10/11/2024 Telephone Adult Medicine [address] [phone] Kathy Perez MD Medication Problem from Last 3 Months Immunizations Name Administration Dates Next Due Influenza trivalent, 0.5mL ( Fluad) 65yo and older 03/26/2024,02/28/2023,03/28/2022,03/22,03/13/2019,03/02/2018,03/01/2017 ,03/30/2016 Influenza, Unspecified 03/10/2022,2020,02/24/2020,04/06,05/06/2014,03/05/2013 [employer] SARS-CoV-2 COVID -19, vector-nr, rS-Ad26, preservative free [...] PROCEDURE:TUBAL LIGATION OTHER SURGICAL HISTORY 2007 PROCEDURE: [place] CORRECTION HAMMERTOE; COMMENT: FOOT SURGERY PROCEDURE: HISTORICAL FOOT SURGERY; COMMENT: 18 y/o bunionectomy UPPER GASTROINTESTINAL ENDOSCOPY 03/22/2012 PROCEDURE: [place] UPPER GI ENDOSCOPY PERFORMED; COMMENT: Normal study UPPER GASTROINTESTINAL ENDOSCOPY 11/27/2015 PROCEDURE: [place] UPPER GI ENDOSCOPY PERFORMED; COMMENT: Gastritis and polyp. Normal Esophagus and duodenum. UPPER GASTROINTESTINAL ENDOSCOPY 2012 PROCEDURE: [place] UPPER GI ENDOSCOPY PERFORMED; COMMENT: FOR GERD BLADDER SUSPENSION 05/29/2018 PROCEDURE: HISTORICAL BLADDER SUSPENSION CYSTOSCOPY 03/18/2019 PROCEDURE: HISTORICAL CYSTOSCOPY; COMMENT: Normal COLONOSCOPY 06/2005 PROCEDURE: HISTORICAL COLONOSCOPY; COMMENT: tubular adenoma COLONOSCOPY 06/2010 PROCEDURE: HISTORICAL COLONOSCOPY; COMMENT: negative COLONOSCOPY 12/16/2015 PROCEDURE: HISTORICAL COLONOSCOPY; COMMENT: tubular adenoma CARDIAC CATHETERIZATION 09/26/2014 PROCEDURE: HISTORICAL CARDIAC CATH; COMMENT: RCA stent [facility], Dr Hernandez UPPER GASTROINTESTINAL ENDOSCOPY 08/18/2004 PROCEDURE: [place] UPPER GI ENDOSCOPY PERFORMED FOOT SURGERY 12/2013 PROCEDURE: HISTORICAL FOOT SURGERY; COMMENT: for second toe arthroplasty SHOULDER SURGERY Left PROCEDURE: HISTORICAL SHOULDER SURGERY; COMMENT: Arthroscopy with Dr. Berg KNEE SURGERY Left PROCEDURE: HISTORICAL KNEE SURGERY; COMMENT: Arthroscopy Medical History Medical History Date Comments Hypertension DX:Hypertension COPD (chronic obstructive pu lmonary disease) ([facility] V24, [facility] V28) DX:COPD (chronic o bstructive pulmonary disease) ([facility]) Heart failure ([facility] V24, [facility] V28) DX:Heart failure ([facility]) Diabetes mellitus ([facility] V 24, [facility] V28) DX:Diabetes mellitus ([facility]) Asthma 07/17/2012 DX:Asthma HTN (hypertension) 07/17/2012 [...] mellitus type 2 wit h neurological manifestations ([facility] V24, [facility] V28) 08/01/2015 DX:Diabetes mellitus type 2 with [...] for your loved ones. For example, child specialist or elderly care for an older adult? [...] Sign Reading Time Taken Comments Blood Pressure 112/58 01/06/2025 10:32 AM EDT Pulse 94 01/06/2025 10:32 AM EDT Temperature 36.4 C (97.6 F) 01/06/2025 10:32 AM EDT Respiratory Rate 20 01/06/2025 10:32 AM EDT Oxygen Saturation 94% 01/06/2025 10:32 AM EDT Inhaled Oxygen Concentration - - Weight 83.5 kg (184 lb) 01/06/2025 10:32 AM EDT Height 162.6 cm (5' 4 ) 01/06/2025 10:32 AM EDT Body Mass Index 31.58 01/06/2025 10:32 AM EDT Plan of Treatment Upcoming Encounters Date Type Department Care Team (Late st Contact Info) Description 01/28/2025 1:15 PM EDT Office Visit Adult Medicine [address] [phone] Kathy Perez MD [address] [place] [phone] 02/11/2025 11:00 AM EDT Appointment [facility] Pain Management [address] [place] [phone] Marcus Murcia DO [address] [place] [address] Health Maintenance Due Date Last Done Comments Zoster Vaccines (1 of 2) 10/08/1964 Osteoporosis Screening (Bone Density Screening) 05/28/2022 COVID-19 Vaccine ( season) 2024 05/02/2023, 05/24/2022, 04/28/2021, Additional history exists Depression Screening 06/19/2024 03/26/2024 Diabetes: Annual Retina Eye Exam 11/27/2024 11/28/2023 Diabetes: Annual Foot Exam 12/03/2024 12/04/2023 Influenza Vaccine (#1) 2025 , 02/28/2023, 03/28/2022, Additional history exists Diabetes: Blood Sugar Control Test (HGBA1C) 02/26/2025 08/26/2024, 03/26/2024, 03/26/2024, Additional history exists Medicare Annual Wellness Visit 03/26/2025 03/26/2024 Falls Risk Assessment 08/27/2025 08/27/2024, 024 Social Influencers of Health Screening 10/03/2025 10/03/2024 Diabetes: Annual Urine Albumin-Creatinine Ratio (uACR) 01/06/2026 01/06/2025, 09/23/2024, 09/23/2024, Additional history exists Diabetes: Annual GFR (Glomerular Filtration Rate) 01/06/2026 01/06/2025, 09/23/2024, 08/26/2024, Additional history exists Hypertension/CHF/CAD Annual BMP Blood Test 01/06/2026 01/06/2025, 09/23/2024, 08/26/2024, Additional history exists Cholesterol Screening (Lipid Panel) 08/26/2029 08/26/2024, 03/26/2024, 03/26/2024 DTaP,Tdap,and Td Vaccines (3 - Td or Tdap) 01/16/2033 01/16/2023, 08/01/2012 Pneumococcal Vaccine: 50+ Years Completed 04/20/2023, 03/30/2016, 04/28/2014, Additional history exists RSV Immunization Adult Patients Completed 04/20/2023 HIB Vaccines Aged Out No longer eligi [...] Procedure Name Priority Date/Time Associated Diagnosis Comments MCMILLAN URINE CULTURE TUBE Routine 01/06/2025 11:29 AM EDT Recurrent UTI (urinary tract infection) URINALYSIS WITH REFLEX MICROSCOPIC AND CULTURE Routine 01/06/2025 11:29 AM EDT Recurrent UTI (urinary tract infection) CBC WITH AUTO DIFFERENTIAL Routine 01/06/2025 11:29 AM EDT Recurrent UTI (urinary tract infection) RENAL FUNCTION PANEL Routine 01/06/2025 11:29 AM EDT Chronic kidney disease, stage 3a (CMS/HCC V24, CMS/HCC V28) Renal osteodystrophy Type 2 diabetes mellitus with diabetic chronic kidney disease (CMS/HCC V24, CMS/HCC V28) MICROALBUMIN CREATININE URINE RATIO Routine 01/06/2025 11:29 AM EDT Chronic kidney disease, stage 3a (CMS/HCC V24, CMS/HCC V28) Renal osteodystrophy Type 2 diabetes mellitus with diabetic chronic kidney disease ([facility] V24, [facility] V28) PROTEIN AND CREATININE WITH RATIO, URINE Routine 01/06/2025 11:29 AM EDT Chronic kidney disease, stage 3a ([facility] V24, [facility] V28) Renal osteodystrophy Type 2 diabetes mellitus with diabetic chronic kidney disease ([facility] V24, [facility] V28) URINALYSIS WITH REFLEX MICROSCOPIC AND CULTURE Routine 01/06/2025 11:29 AM EDT Recurrent UTI (urinary tract infection) CBC AND DIFFERENTIAL Routine 01/06/2025 11:29 AM EDT Recurrent UTI (urinary tract infection) CULTURE URINE Routine 01/06/2025 11:29 AM EDT Recurrent UTI (urinary tract infection) CULTURE URINE Routine 12/18/2024 11:55 AM EDT OAB (overactive bladder) CULTURE URINE Routine 11/28/2024 1:13 PM EDT Urinary tract infection without hematuria, site unspecified HEMOGLOBIN A1C Routine 08/26/2024 11:03 AM EDT Diabetes mellitus type 2 with neurological manifestations ([facility] V24, [facility] V28) LIPID PANEL WITH REFLEX TO DIRECT LDL Routine 08/26/2024 11:03 AM EDT Coronary artery disease involving chippewa-cree coronary artery of chippewa-cree heart without angina pectoris Hyperlipidemia, unspecified hyperlipidemia type DEPRESSION SCREENING Routine 03/26/2024 FALLS RISK ASSESSMENT Routine 03/26/2024 DIABETES FOOT EXAM Routine 12/04/2023 DIABETES EYE EXAM Routine 11/28/2023 from Last 3 Months or Most Recently Relevant to Health Maintenance Results * (ABNORMAL) Urinalysis with reflex microscopic and culture (01/06/2025 11:29 AM EDT) Specific [place] Urine 1.016 1.003 - 1.030 LAB URINALYSIS - AUTOMATED METHOD 01/06/2025 3:24 PM [facility] pH, Urine 6.0 5.0 - 8.0 pH LAB URINALYSIS - AUTOMATED METHOD 01/06/2025 3:24 PM [facility] Leukocytes, Urine Large(A) Negative LAB URINALYSIS - AUTOMATED METHOD 01/06/2025 3:24 PM [facility] Nitrite, Urine Negative Negative LAB URINALYSIS - AUTOMATED METHOD 01/06/2025 3:24 PM [facility] Protein, Urine 30(A) <=Trace mg/dL LAB URINALYSIS - AUTOMATED METHOD 01/06/2025 3:24 PM [facility] Glucose, Urine Negative Negative mg/dL LAB URINALYSIS - AUTOMATED METHOD 01/06/2025 3:24 PM [facility] Ketones, Urine Trace(A) Negative mg/dL LAB URINALYSIS - AUTOMATED METHOD 01/06/2025 3:24 PM [facility] Urobilinogen, Urine 1.0 0.2 - 1.0 mg/dL LAB URINALYSIS - AUTOMATED METHOD 01/06/2025 3:24 PM [facility] Bilirubin, Urine Negative Negative LAB URINALYSIS - AUTOMATED METHOD 01/06/2025 3:24 PM [facility] Blood, Urine Trace(A) Negative LAB URINALYSIS - AUTOMATED METHOD 01/06/2025 3:24 PM [facility] RBC, Urine 2.5 0 - 4 /HPF LAB URINALYSIS - AUTOMATED METHOD 01/06/2025 3:24 PM [facility] WBC, Urine 184.2(H) 0 - 4 /HPF LAB URINALYSIS - AUTOMATED METHOD 01/06/2025 3:24 PM EDT [facility] Squamous Epithelial, Urine 7 0 - 60 /LPF LAB URINALYSIS - AUTOMATED METHOD 01/06/2025 3:24 PM EDT [facility] Bacteria, Urine Negative Negative /HPF LAB URINALYSIS - AUTOMATED METHOD 01/06/2025 3:24 PM EDT [facility] Hyaline Casts, Urine 0.4 0 - 3 /LPF LAB URINALYSIS - AUTOMATED METHOD 01/06/2025 3:24 PM EDT [facility] Urine Urine specimen obtained by clean catch procedure / Unknown Non-blood Collection / Unknown 01/06/2025 11:29 AM EDT 01/06/2025 11:29 AM EDT Kathy Perez MD LAB URINE ORDERABL ES Final Result Performing Organization Address City/[facility]/ZIP Co de Phone Number [facility] [address] [place] [address], [place] [phone] * [place] urine culture tube (01/06/2025 11:29 AM EDT) Pathologist [facility] Extra Tube Hold for add-ons. 01/06/2025 4:01 PM EDT [facility] Comment:Auto resulted. Urine Urine specimen obtained by clean catch procedure / Unknown Non-blood Collection / Unknown 01/06/2025 11:29 AM EDT 01/06/2025 11:29 AM EDT Kathy Perez MD LAB URINE ORDERABL ES Final Result Performing Organization Address City/[facility]/ZIP Co de Phone Number [facility] [address] [place] [address], [place] [phone] * (ABNORMAL) CBC auto differential (01/06/2025 11:29 AM EDT) WBC 9.1 4.8 - 10.8 K/mcL LAB HEMETOLOGY METHOD 01/06/2025 4:06 PM [facility] RBC 3.70(L) 3.80 - 4.80 M/mcL LAB HEMETOLOGY METHOD 01/06/2025 4:06 PM [facility] Hemoglobin 11.0(L) 11.5 - 16.0 g/dL LAB HEMETOLOGY METHOD 01/06/2025 4:06 PM [facility] Hematocrit 35.0 35.0 - 47.0 % LAB HEMETOLOGY METHOD 01/06/2025 4:06 PM [facility] MCV 94.3 79.0 - 98.0 FL LAB HEMETOLOGY METHOD 01/06/2025 4:06 PM [facility] MCH 29.6 27.0 - 32.0 pcg LAB HEMETOLOGY METHOD 01/06/2025 4:06 PM [facility] MCHC 31.4(L) 32.0 - 37.0 g/dL LAB HEMETOLOGY METHOD 01/06/2025 4:06 PM [facility] RDW 16.1(H) 11.0 - 15.0 % LAB HEMETOLOGY METHOD 01/06/2025 4:06 PM [facility] Platelets 339 130 - 400 K/[facility] LAB HEMETOLOGY METHOD 01/06/2025 4:06 PM [facility] MPV 11.0 7.0 - 11.0 FL LAB HEMETOLOGY METHOD 01/06/2025 4:06 PM [facility] NRBC 0.2 <1.0 % LAB HEMETOLOGY METHOD 01/06/2025 4:06 PM [facility] NRBC Absolute 0.02 <0.10 K/mcL LAB HEMETOLOGY METHOD 01/06/2025 4:06 PM [facility] Neutrophils Relative 56.5 % LAB HEMETOLOGY METHOD 01/06/2025 4:06 PM [facility] Lymphocytes Relative 29.6 % LAB HEMETOLOGY METHOD 01/06/2025 4:06 PM [facility] Monocytes Relative 11.1 % LAB HEMETOLOGY METHOD 01/06/2025 4:06 PM [facility] Eosinophils Relative 1.7 % LAB HEMETOLOGY METHOD 01/06/2025 4:06 PM [facility] Basophils Relative 0.3 % LAB HEMETOLOGY METHOD 01/06/2025 4:06 PM [facility] Immature Granulocytes Relative 0.8 % LAB HEMETOLOGY METHOD 01/06/2025 4:06 PM [facility] Neutrophils Absolute 5.12 1.50 - 7.00 K/mcL LAB HEMETOLOGY METHOD 01/06/2025 4:06 PM [facility] Lymphocytes Absolute 2.68 1.00 - 5.00 K/mcL LAB HEMETOLOGY METHOD 01/06/2025 4:06 PM [facility] Monocytes Absolute 1.01(H) 0.20 - 1.00 K/mcL LAB HEMETOLOGY METHOD 01/06/2025 4:06 PM [facility] Eosinophils Absolute 0.15 0.00 - 0.50 K/mcL LAB HEMETOLOGY METHOD 01/06/2025 4:06 PM [facility] Basophils Absolute 0.03 0.00 - 0.20 K/mcL LAB HEMETOLOGY METHOD 01/06/2025 4:06 PM [facility] Immature Granulocytes Absolute 0.07(H) 0.00 - 0.03 K/mcL LAB HEMETOLOGY METHOD 01/06/2025 4:06 PM [facility] Blood Venous blood specimen / Unknown Venipuncture / Unknown 01/06/2025 11:29 AM EDT 01/06/2025 11:29 AM EDT Kathy Perez MD LAB BLOOD ORDERABL ES Final Result Performing Organization Address [facility]/ZIP Co de Phone Number [facility] [address] [place] [address], [place] [phone] * (ABNORMAL) Protein and creatinine with ratio, urine (01/06/2025 11:29 AM EDT) Protein, Urine 30 mg/dL LAB CHEMISTRY METHOD 01/06/2025 4:55 PM EDT [facility] Prot/Creat, Ur 0.31(H) <=0.20 mg/mg creat LAB CHEMISTRY METHOD 01/06/2025 4:55 PM EDT [facility] Creatinine, Urine 96.0 mg/dL LAB CHEMISTRY METHOD 01/06/2025 4:55 PM EDT [facility] Urine Urine specimen obtained by clean catch procedure / Unknown Non-blood Collection / Unknown 01/06/2025 11:29 AM EDT 01/06/2025 11:29 AM EDT us Everton Riddle MD LAB URINE ORDERABLES Final Re sult Performing Organization Address [facility]/ZIP Co de Phone Number [facility] [address] [place] [address], [place] [phone] * (ABNORMAL) Microalbumin creatinine urine ratio (01/06/2025 11:29 AM EDT) Creatinine, Urine 96.0 mg/dL LAB CHEMISTRY METHOD 01/06/2025 5:02 PM EDT [facility] Microalb, Ur 87.3(H) 0.0 - 29.0 mg/L LAB CHEMISTRY METHOD 01/06/2025 5:02 PM EDT [facility] Microalb/Crea t Ratio 91(H) <30 mg/g creat LAB CHEMISTRY METHOD 01/06/2025 5:02 PM EDT [facility] Urine Urine specimen obtained by clean catch procedure / Unknown Non-blood Collection / Unknown 01/06/2025 11:29 AM EDT 01/06/2025 11:29 AM EDT Everton Riddle MD LAB URINE ORDERABLES Final Re sult Performing Organization Address [facility]/ZIP Co de Phone Number [facility] [address] [place] [address], [place] [phone] * Culture urine (01/06/2025 11:29 AM EDT) Only the most recent of3 resultswithin the time period is included. Culture, Urine No growth 01/07/2025 10:14 AM EDT [facility] Urine Urine specimen obtained by clean catch procedure / Unknown Non-blood Collection / Unknown 01/06/2025 11:29 AM EDT 01/06/2025 3:24 PM EDT us Kathy Perez MD LAB MICROBIOLOGY - GENERAL ORDERABLES Final Result Performing Organization Address [facility]/ZIP Co de Phone Number [facility] [address] [place] [address], [place] [phone] * (ABNORMAL) Renal function panel (01/06/2025 11:29 AM EDT) Sodium 141 133 - 145 mmol/L LAB CHEMISTRY METHOD 01/06/2025 4:52 PM EDT [facility] Potassium 4.4 3.5 - 5.5 mmol/L LAB CHEMISTRY METHOD 01/06/2025 4:52 PM EDT [facility] Chloride 106 96 - 110 mmol/L LAB CHEMISTRY METHOD 01/06/2025 4:52 PM [facility] CO2 30 21 - 32 mmol/L LAB CHEMISTRY METHOD 01/06/2025 4:52 PM [facility] Anion Gap 5 3 - 11 LAB CHEMISTRY METHOD 01/06/2025 4:52 PM [facility] Glucose 99 70 - 100 mg/dL LAB CHEMISTRY METHOD 01/06/2025 4:52 PM [facility] BUN 13 5 - 25 mg/dL LAB CHEMISTRY METHOD 01/06/2025 4:52 PM [facility] Creatinine 0.98 0.50 - 1.10 mg/dL LAB CHEMISTRY METHOD 01/06/2025 4:52 PM [facility] eGFR 58(L) >=60 mL/min/1. 73m2 LAB CHEMISTRY METHOD 01/06/2025 4:52 PM [facility] Comment:Calculation based on the Chronic Kidney Disease Epidemiology Collaboration (CKD-EPI) equation refit without adjustment for race. BUN/Creatinine Ratio 13.3 LAB CHEMISTRY METHOD 01/06/2025 4:52 PM [facility] Albumin 3.4 3.2 - 5.0 g/dL LAB CHEMISTRY METHOD 01/06/2025 4:52 PM [facility] Calcium 9.3 8.5 - 10.5 mg/dL LAB CHEMISTRY METHOD 01/06/2025 4:52 PM [facility] Phosphorus 4.0 2.5 - 4.5 mg/dL LAB CHEMISTRY METHOD 01/06/2025 4:52 PM [facility] Blood Venous blood specimen / Unknown Venipuncture / Unknown 01/06/2025 11:29 AM EDT 01/06/2025 11:29 AM EDT us Everton Riddle MD LAB BLOOD ORDERABLES Final Re sult [facility] [address] [place] [address], [place] [phone] * Lipid panel with reflex to direct LDL (08/26/2024 11:03 AM EDT) [facility] Cholesterol 141 0 - 200 mg/dL [...] EDT 08/26/2024 11:03 AM EDT Elisa Romero POST TENSIONING IRONWORKER HELPER LAB BLOOD ORDERABLES Final Result [facility] [address] [place] [address], [place] [phone] * Hemoglobin A1c (08/26/2024 11:03 AM EDT) [facility] Hemoglobin A1C 6.4 <6.5 % LAB [...] [facility] [address] [place] [address], [place] [phone] * Falls Risk Assessment (03/26/2024) [facility] Falls Risk Assessment Abstracted Result [facility] Provider HEALTH MAINTENANCE Final Result * Depression Screening (03/26/2024) Pathologist [facility] Depression Screening Abstracted Result [facility] Provider HEALTH MAINTENANCE Final Result * Diabetes Foot Exam (12/04/2023) [facility] Diabetes: Annual Foot Exam Abstracted [facility] Provider HEALTH MAINTENANCE Final Result * Diabetes Eye Exam (11/28/2023) [facility] Diabetes: Annual Retina Eye Exam Abstracted Comment:External Completion of test per patient (Patient reports normal results) Result [facility] Provider HEALTH MAINTENANCE Final Result from Last 3 Months or Most Recently Relevant to Health Maintenance Insurance [facility] MEDICARE Member Subscriber Plan / Payer (Ef fective 2012-Present) Name:Shea Ramirez Relation to Subscriber:Self Name:Shea Ramirez Payer ID:[id number] Group ID:[id number] Type:Not on file Address: [place] [address] [place] [phone] Care Teams Hand Sizer Relationship Specialty Start Date End Date Kathy Perez MD [address] [place] [address] [phone] PCP - General Internal Medicine 07/22/24
--- OUTSIDE RECORDS SUMMARY | 2025-01-10 17:38 | XMS_ITS | Clinical Summary ---
Author Organization [facility] Address [address] [phone] Phone Care Team Providers Care Fitness Centre Manager Name Role Phone Kathy Christopher MD [...] INTRANASALLY DAILY FOR 30 DAYS 3 Active isosorbide mononitrate (IMDUR) 30 MG 24 hr tablet Take 30 mg by mouth every morning 0 Active lidocaine (LIDODERM) 5 % patch Place 1 patch on the skin in the morning. 4 Active Melatonin 10 MG tablet Take by mouth Active methocarbamol (ROBAXIN) 500 MG tablet Take [...] MOUTH DAILY FOR 30 DAYS 5 Active Active Problems Problem Noted Date [...] Gastroparesis 07/17/2012 Overview (09/19/2024): Dr. Stephenson at [address] [place] [address] drive Gastroesophageal reflux disease 07/17/2012 Encounters Date Type Department Care Team Description 10/30/2024 2:45 PM EDT Office Visit [facility] [address] [phone] Everton Riddle MD Stage 3a chronic kidney disease (HCC) (Primary Dx); Renal osteodystrophy; Type 2 diabetes mellitus with diabetic chronic kidney disease (HCC) 10/16/2024 2:15 PM EDT Office Visit [facility] [address] [phone] Everton Riddle MD Stage 3a chronic kidney disease (HCC) (Primary Dx); 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) from Last 3 Months Immunizations Immunization Administration Dates Next Due Influenza, Trivalent, Adjuvanted 024,02/28/2023,03/28/2022,03/22/2020 ,03/13/2019,03/02/2018,03/01/2017, 6 Influenza, Unspecified 03/10/2022,2020,02/24/2020,04/06/2015 ,05/06/2014,03/05/2013 Bob SARS-COV-2 09/09/2020 Pfizer SARS-COV-2 04/28/2021 Pneumococcal Conjugate 13-Valent 03/30/2016 Pneumococcal Polysaccharide 04/28/2014, 3,08/01/2012 Td 01/16/2023 Tdap 08/01/2012 Family History Medical History Relation Comments Heart disease Mother Relation Status Comments Mother Social History Tobacco Use Types Packs/Day Years Used Date Smoking Tobacco: Never Smokeless Tobacco: Never Tobacco Cessation:Counseling Given: No Alcohol Use Standard Drinks/Week Comments Never 0 (1 standard drink = 0.6 oz pur e alcohol) Comments Unknown Sex and Gender Information Value Date Recorded Sex Assigned at Not on file Legal Sex Female 5:13 PM EST Gender Identity Not on file Sexual Orientation Not on file Last Filed Vital Signs Vital Sign Reading Time Taken Comments Blood Pressure 134/60 10/30/2024 2:38 PM EDT Pulse 78 10/30/2024 2:38 PM EDT Temperature - - Respiratory Rate - - Oxygen Saturation 95% 10/30/2024 2:38 PM EDT Inhaled Oxygen Concentration - - Weight 84.4 kg (186 lb) 10/30/2024 2:38 PM EDT Height - - Body Mass Index - - Plan of Treatment Upcoming Encounters Date Type Department Care Team (Late st Contact Info) Description 04/15/2025 1:45 PM EDT Office Visit [facility] [address] [phone] Everton Riddle MD [address] [phone] 07/29/2025 1:00 PM EST Office Visit [facility] [address] [phone] Lizzie Magana ARNP [address] [phone] Health Maintenance Due Date Last Done Comments Diabetes: Ophthalmology Exam 09/10/2024 06/27/2014 Diabetes: Pedal Pulse Checked 09/10/2024 Diabetes: Sensory Foot Exam 09/10/2024 Diabetes: Visual Foot Exam 09/10/2024 Diabetes: Hemoglobin A1C 11/26/2024 08/26/2024, 02/0 11/2021 Influenza Vaccine (#1) 2025 4, 02/28/2023, 03/28/2022, Additional history exists Pneumococcal Vaccine: 50+ Years Completed 03/30/2016, 04/28/2014, 03/05/2013, Additional history exists Pneumococcal Vaccine: Peds (0 to 5 Years) and At-Risk Patients (6 to 49 Years) Discontinued 03/30/2016, 04/28/2014, 03/05/2013, Additional history exists Hepatitis B Vaccine Aged Out No longe r eligible based on patient's age to complete this topic Procedures Procedure Name Priority Date/Time Associated Diagnosis Comments PROTEIN / CREATININE RATIO, URINE Routine 01/06/2025 11:29 AM EDT Stage 3a chronic kidney disease (HCC) Renal osteodystrophy Type 2 diabetes mellitus with diabetic chronic kidney disease (HCC) URINE ALBUMIN / CREATININE RATIO Routine 01/06/2025 11:29 AM EDT Stage 3a chronic kidney disease (HCC) Renal osteodystrophy Type 2 diabetes mellitus with diabetic chronic kidney disease (HCC) RENAL FUNCTION PANEL Routine 01/06/2025 11:29 AM EDT Stage 3a chronic kidney disease (HCC) Renal osteodystrophy Type 2 diabetes mellitus with diabetic chronic kidney disease (HCC) from Last 3 Months Results * (ABNORMAL) Protein, Total, Random Urine w/Creatinine (Protein/Creat Ratio) (01/06/2025 11:29 AM EDT) Protein, Ur 30 mg/dL [facility] Urine Protein/Creati nine Ratio 0.31(H) <=0.20 mg/mg creat [facility] Creatinine, Urine 96.0 mg/dL [facility] Urine specimen (specimen) Urine specimen obtained by clean catch procedure / Unknown 01/06/2025 11:29 AM EDT 01/06/2025 3:13 PM EDT us Everton Riddle MD LAB URINE ORDERABLES Final Re sult Performing Organization Address [facility] Co de Phone Number [facility] [address] [place] [address] * (ABNORMAL) Urine Albumin / Creatinine Ratio (01/06/2025 11:29 AM EDT) Creatinine, Urine 96.0 mg/dL [facility] Microalbumin Urine Random 87.3(H) 0.0 - 29.0 mg/L [facility] Microalbumin/Cre atinine Ratio 91(H) <30 mg/g creat [facility] Urine specimen (specimen) Urine specimen obtained by clean catch procedure / Unknown 01/06/2025 11:29 AM EDT 01/06/2025 3:13 PM EDT Everton Riddle MD LAB URINE ORDERABLES Final Re sult Performing Organization Address [facility] Co de Phone Number [facility] [address] [place] [address] * (ABNORMAL) Renal Function Panel (01/06/2025 11:29 AM EDT) Pathologist [facility] Sodium 141 133 - 145 mmol/L [facility] Potassium 4.4 3.5 - 5.5 mmol/L [facility] Chloride 106 96 - 110 mmol/L [facility] Bicarbonate (CO2) 30 21 - 32 mmol/L [facility] Anion Gap 5 3 - 11 [facility] Glucose 99 70 - 100 mg/dL [facility] BUN 13 5 - 25 mg/dL [facility] Creatinine Serum 0.98 0.50 - 1.10 mg/dL [facility] eGFR 58(L) >=60 mL/min/1. 73m2 [facility] Comment:Calculation based on the Chronic Kidney Disease Epidemiology Collaboration (CKD-EPI) equation refit without adjustment for race. BUN/Creatinine Ratio 13.3 [facility] Albumin 3.4 3.2 - 5.0 g/dL [facility] Calcium 9.3 8.5 - 10.5 mg/dL [facility] Phosphorus 4.0 2.5 - 4.5 mg/dL [facility] Blood specimen (specimen) Venous blood / Unknown 01/06/2025 11:29 AM EDT 01/06/2025 3:12 PM EDT us Everton Riddle MD LAB BLOOD ORDERABLES Final Re sult [facility] [address] [place] [address] from Last 3 Months Insurance [address] [place] [address] [facility] ([id number]) [place] [phone] [address] [place] [address] Care Teams Fitness Centre Manager Relationship Specialty Start Date End Date Kathy Christopher MD [address] [place] [phone] [facility] - General 09/10/24
--- OUTSIDE RECORDS SUMMARY | 2025-01-10 17:38 | XMS_ITS | Data Portability ---
Author Organization [employer], [facility] Address [address] [place] [address] Care Team Providers Care Biopsychologist Name Role Phone [facility] Referring Provider HIM [facility] OTHER Assessment Encounter Date Assessment Date Assessment LastModified by Organization Details LastModified Time 04/20/2024 04/20/2024 I provided real -time medical direction via phone for this encounter and was available for additional phone-based assistance as needed. I have reviewed and agree with the Assessment and Plan as documented by the Stone Cutter. Patient given the opportunity to ask questions. [...] on metoprolol to for rate control. Per horticultural services supervisor on the scene, vital signs are [...] have any evidence of volume overload per horticultural services supervisor on the scene. She has no [...] respiratory specimen 2022 023 [email or web address] Main - [facility], [address] [place] [address], [phone] 3 20:04:39 rapid flu (A+B) 2022 023 [email or web address] [facility] - [facility], [address] [place] [address], [phone] 3 20:04:40 rapid strep group A, throat 2022 023 [email or web address] [facility] - [facility], [address] [place] [address], [phone] 3 20:04:38 culture, urine 2022 023 CLEMENT [facility] (Centralized Electronic Ordering - All Locations), Patient Can Go To The Location Of Their Choice, [id number] 3 07:41:06 Referral None recorded. Procedures None recorded. Surgeries None recorded. Imaging None recorded. Medication Orders Levaquin 500 mg tablet [email or web address] [place] [address], [address] [place] [address], [address], 13:34:52 Patient TargetsNo targets recorded. Patient InstructionsNo instructions recorded. Reason for Referral None Reported. Results Created Date Observation Date Name Description Value Unit Range Abnormal Flag Note LastModifiedBy Organization Detail LastModifiedTime 09/28/19 23 09/27/2022 URINE CULTU RE specimen description URINE Not Available [facility] (Central[facility] Ordering - All Locations) Patient Can Go To The Location Of Their Choice, [id number] 09/29/2022 07:41:06 09/28/19 23 09/27/2022 URINE CULTU RE special requests NONE Not Available [facility] (Centralized Electronic Ordering - All Locations) Patient Can Go To The Location Of Their Choice, [id number] 09/29/2022 07:41:06 09/28/19 23 09/29/2022 URINE CULTU RE culture NO GROWTH Not Available [facility] (Centralized Electronic Ordering - All Locations) Patient Can Go To The Location Of Their Choice, [facility] 09/29/2022 07:41:06 09/28/19 23 09/29/2022 URINE CULTU RE report status FINAL 2022 Not Available [facility] (Centralized Electronic Ordering - All Locations) Patient Can Go To The Location Of Their Choice, [facility] 09/29/2022 07:41:06 06/17/20 23 06/17/2023 rapid strep group A, throa t Strep negati ve Not Available [facility] ed [address] [place] [address], [address] [place] [address] 06/17/2023 20:04:20 06/17/20 23 06/17/2023 rapid flu (A+B) Flu negati ve Not Available [facility] ed [address] [place] [address], [address] [place] [address] 06/17/2023 20:04:18 06/17/20 23 06/17/2023 rapid SARS CoV 2 Ag, QL IA, respi rator y speci men rapid SARS CoV 2 Ag, QL IA, respiratory specimen negati ve Not Available [facility] ed [address] [place] [address], [address] [place] [address] 06/17/2023 20:04:15 Result Notes None recorded. Medical Equipment None Reported. Allergies Allergen ID Allergen Name Allergen Category Reaction Reaction Severity Criticality Documentation Date Start Date Code Code System Note Provider Name and Address Organization Details Recorded Time 7839 Product containin g penicilli n (product) medicatio n Not available Not available Not available 04/16/2024 02467 8001 SNOMED Not Available [facility] - production [...] Heart rate Body weight Respiratory rate Systolic And Diastolic Provider Name and Address Organization Details Last Updated DateTime 3 98 % 98 % 95.7 [degF] 73 /min 56515.5 6 g 16 /min 125/67 mm[Hg] Not Available [facility] - production 3 13:30:35 Date Recorded Body weight Respiratory rate Heart rate Body height Body temperature Oxygen saturation Oxygen saturation in Arterial blood by Pulse oximetry Systolic And Diastolic Provider Name and Address Organization Details Last Updated DateTime 4 17827.5 6 g 18 /min 111 /min 162.56 cm 98.2 [degF] 94 % 94 % 117/66 mm[Hg] Not Available [facility] - production 4 14:23:22 Date Recorded Respiratory rate Body height Body weight Heart rate Oxygen saturation Oxygen saturation in Arterial blood by Pulse oximetry Body temperature Systolic And Diastolic Provider Name and Address Organization Details Last Updated DateTime 3 16 /min 162.56 cm 13234.5 6 g 90 /min 96 % 96 % 99.5 [degF] 143/68 mm[Hg] Not Available [facility] - production 3 19:48:26 Social History None [...] Note 9333 Praveen Valdovinos MD Main - [address] [phone] 09/27/2022 13:30:25 09/29/2022 10:29:50 Acute urinary tract infection [id number] N39.0 [id number] Petra El[facility] [address] [place] [phone] 06/17/2023 19:48:24 06/20/2023 12:24:39 Upper respiratory infection [id number] J06.9 Evaluation in the field was performed by my horticultural services supervisor colleague, as noted above, I provided [...] shortness of breath, cough, chest pain, fever. [id number] Solange Casas MD [employer] [address] [place] [phone] 04/20/2024 14:23:19 04/20/2024 19:15:29 Decreased urine output [id number] R34 Chronic ki dney disease stage 3 [id number] N18.30 Tachycardia 3812302 R00. 0 Health Concerns Section Related Observation LastModified by Organization Detai ls LastModified Time None Recorded Concern Status LastModified by Organization Details LastModified Time None Recorded Advance Directives Directive None Recorded Payers Insurance Date Sequence Insurance Name Policy Number Policy Wagner Covered Member ID Wagner Member ID Guarantor Name 06/17/2023 1 [facility] - DOS PRIOR TO 2022 - DUAL ELIGIBLE (MEDICARE REPLACEMENT/ADV ANTAGE - HMO) Shea Ramirez [id number] Shea Ramirez 04/20/2024 1 [facility] - DOS ON OR AFTER 2022 - DUAL ELIGIBLE - LONG-TERM OPTIONS AND ONE CARE (MEDICARE REPLACEMENT/ADV ANTAGE - HMO) Shea Ramirez [id number] Shea Ramirez Notes Date Note Type Note Provider Name and Address Organization Details Recorded Time 023 text/ht ml ROS as noted in the HPI [facility] Nursing Assessment: Reason For Request: UTI [...] . Member denies F/c/n/v/d Praveen Valdovinos MD [address] [place] [address],[address], [place], [phone], [employer] 09/27/2022 13:35:12 023 text/ht ml HPI: Member [...] process visit. ................................... ................................... ................................... ................................... . Stone Cutter Note From Max Clemens: Pt reports dry [...] . Disposition: Fulfilled Petra Elmore MD [address] [facility],[address], [place], [phone], [facility] - [employer] 06/17/2023 20:04:49 024 text/ht ml HPI: mbr with multiple complaints, states experienced SOB last night where she had decided to take a diuretic, denies any Urine output at this time questioning retention , but does mention changing briefs multiple times over night, denies any Abdominal pain pressure or discomfort, no LE edema CP/N/V. per mbr B/P 153/78 HR 111. mbr requesting [facility] for evaluation.Protocol Used: Urinary SymptomsProtocol-Based Disposition: Consider [facility], GUN BARREL FINISHER, MD/BANQUET STEWARDESS triage, PCP, or ED /Urgent Care Visit [...] Comments: Reviewed HPI SEGMD: Visit closed by [facility] end of shift before medic note transferred into [place], so I entered it below: SummarySmartcare visit [...] this was present yesterday in visit with BANQUET STEWARDESS as well. Pt afebrile. Lung sounds clear bilaterally. Pt concerned about possible cloudy urine as well. Pt was unable to provide urine specimen for testing. Consulted with [facility] Dr. Casas who advised continuing to monitor symptoms. Reviewed red flags for ED. Pt education provided.Services ProvidedPatient EducationDispositionFulfilledWas patient sent to ED?[facility] consulted on the case?Yes - Solange Casas MD [address] [place] [address],[address], [place], [phone], [employer] - [employer] 04/23/2024 15:04:20 OBGyn Episode No OBEpisode recorded.
--- OUTSIDE RECORDS SUMMARY | 2025-01-10 17:38 | XMS_ITS ---
Author Name [facility] Organization Unknown History of Medication Use Medication Directions Dispensed Refills Start Date End Date Stat us lidocaine (LIDODERM) 5 % patch Apply for no more than 12 hours in any [address] 1 patch on the skin 1 (one) time each day. Apply for no more than 12 hours in any 24 hour period. 11/26/2024 active metFORMIN XR (GLUCOPHAGE-XR) 500 mg 24 hr tablet TAKE 1 TABLET BY MOUTH EVERY DAY WITH BREAKFAST 10/16/2024 active glucose blood test strip Use as instructed 10/15/2024 active metoprolol tartrate (LOPRESSOR) 50 mg tablet TAKE 1 TABLET BY MOUTH TWICE A DAY 10/15/2024 active cetirizine (ZyrTEC) 10 mg tablet TAKE 1 TABLET BY MOUTH EVERY DAY 10/11/2024 active furosemide (LASIX) 20 mg tablet TAKE 2 TABLETS BY MOUTH DAILY 10/10/2024 active cefuroxime (CEFTIN) 250 mg tablet Take 1 tablet (250 mg total) by mouth 2 (two) times a day. for 7 days 09/30/2024 active valACYclovir (VALTREX) 1 gram tablet TAKE 2 TABLETS BY MOUTH 2 TIMES DAILY. (SEPARATE DOSES BY ~12 HOURS). USE FOR 1 DAY WITH EACH FLARE 09/26/2024 active atorvastatin (LIPITOR) 80 mg tablet Take 1 tablet (80 mg total) by mouth 1 (one) time each day. 07/30/2024 active nitroglycerin (NITROSTAT) 0.[address] 1 tablet (0.4 mg total) under the tongue every 5 (five) minutes if needed for chest pain. IF NO RELIEF CALL 911 07/30/2024 active dexlansoprazole (DEXILANT) [address] capsule TAKE 1 CAPSULE BY MOUTH EVERY DAY 07/17/2024 active albuterol 2.5 mg /3 mL (0.083 %) nebulizer solution TAKE 1 VIAL BY NEBULIZATION EVERY 4 HOURS NEEDED FOR WHEEZING 07/16/2024 active isosorbide mononitrate (IMDUR) 30 mg 24 hr tablet TAKE 1 TABLET BY MOUTH EVERY DAY IN THE MORNING 05/09/2024 active diclofenac (VOLTAREN) 1 % topical gel Apply 2 g topically if needed (PAIN). 04/21/2023 active estradioL (ESTRACE) 0.01 % (0.1 mg/gram) vaginal cream Insert into the vagina at bedtime. Apply a pea-sized amount of cream with your finger into the vagina daily at bedtime for 2 weeks, then two times a week at night. 04/05/2023 active plecanatide (Trulance) 3 mg tablet Take 1 tablet (3 mg total) by mouth 1 (one) time each day. 02/10/2023 active albuterol HFA (PROAIR HFA ; PROVENTIL HFA ; VENTOLIN HFA) 90 mcg/actuation inhaler Inhale 2 puffs by mouth every 4 (four) hours if needed (Cough, Wheezing or Shortness of Breath). 10/10/2022 active cholecalciferol (VITAMIN D-3) 50 mcg (2,000 unit) capsule Take 1 capsule (2,000 Units total) by mouth 1 (one) time each day. 02/18/2022 active fluticasone-umeclidini um-vilanterol (Trelegy Ellipta) 100-62.5-25 mcg inhaler Inhale by mouth. 11/04/2019 active ASPIRIN ORAL Take 81 mg by mouth 1 (one) time each day. active azelastine (ASTELIN) 137 mcg (0.1 %) nasal spray Administer 2 sprays into each nostril 2 (two) times a day. Use in each nostril as directed active fluticasone propionate (FLONASE) 50 mcg/actuation nasal spray Administer 2 sprays into each nostril 1 (one) time each day. Shake gently. Before first use, prime pump. After use, clean tip and replace cap. active melatonin 10 mg tablet Take by mouth at bedtime. active methocarbamoL (ROBAXIN) 500 mg tablet Take 1 tablet (500 mg total) by mouth 3 (three) times a day. PRN active Oxygen Therapy (O2) gas Administer 2-3 L into affected nostril(s) at bedtime. [employer] active predniSONE (DELTASONE) 10 mg tablet Take 1 tablet (10 mg total) by mouth 1 (one) time each day. 40 mg for 3 days. 30 mg for 3 days. 20 mg for 3 days. 10 mg for 3 days. Then discontinue. active Allergies Allergen Reaction Severity Comment Documented Date Source Statu s AMOXICILLIN-POT CLAVULANATE RASH 07/17/2012 [facility] active Problems Problem Status Onset Date Problem Type Date of Resolution Source Palpitations active 2023-05-24 ProblemAct [facility] SFR[facility] Asymptomatic stenosis of intracranial artery active 2020-05-07 ProblemAct [facility] AN Diabetes mellitus type 2 with neurological manifestations ([facility] V24, [facility] V28) active 2015-08-01 ProblemAct [facility] Class 1 obesity due to excess calories with serious comorbidity and body mass index (BMI) of 32.0 to 32.9 in adult active 2024-04-23 ProblemAct [facility]S ALECIA Type 2 diabetes mellitus with stage 3 chronic kidney disease, without long-term current use of insulin ([facility] V24, [facility] V28) active 2019-11-04 ProblemAct [facility] CKD (chronic kidney disease) stage 3, GFR 30-59 ml/min ([facility] V24, [facility] V28) active 2017-05-31 ProblemAct [facility] CHF (congestive heart failure) ([facility] V24, [facility] V28) active 2022-11-18 ProblemAct [facility] Anemia active 2020-05-07 ProblemAct [facility] AN GERD (gastroesophageal reflux disease) active 2012-07-17 ProblemAct [facility] Stenosis of left vertebral artery active 2020-05-07 ProblemAct [facility] Mammographic microcalcification active 2019-01-10 ProblemAct [facility]_THSFRA N Chronic heart failure with preserved ejection fraction ([facility] V24, [facility] V28) active 2022-11-24 ProblemAct [facility]THS[facility] COPD (chronic obstructive pulmonary disease) ([facility] V24, [facility] V28) active 2018-12-10 ProblemAct C T_THSFRAN Chest pain active 2022-11-18 ProblemAct [facility]_THSF RAN Osteoarthritis active 2024-04-23 ProblemAct [facility]_ THSFRAN Anxiety active 2013-06-18 ProblemAct [facility] AN Insomnia active 2012-07-17 ProblemAct [facility] AN Osteoarthritis of both shoulders active 2019-12-26 ProblemAct [facility]_THS[facility] Chronic shoulder pain active 2017-05-31 ProblemAct [facility] Diverticulosis active 2015-05-20 ProblemAct [facility]_ THSFRAN IBS (irritable bowel syndrome) active 2016-03-25 ProblemAct [facility] Obstructive sleep apnea active 2018-11-21 ProblemAct [facility] Tachycardia active 2021-09-27 ProblemAct [facility]_THS ALECIA Iron deficiency anemia due to chronic blood loss active 2016-08-18 ProblemAct [facility]S ALECIA Primary hypertension active 2012-07-17 ProblemAct [facility] Hyperlipidemia active 2014-07-18 ProblemAct [facility]_ THSFRAN Peripheral edema active 2018-05-03 ProblemAct C T_THSFRAN Tubular adenoma of colon active 2015-05-20 ProblemAct [facility] SOTELO (dyspnea on exertion) active 2021-09-27 ProblemAct [facility] Syncope active 2021-09-22 ProblemAct [facility] AN Osteopenia active 2021-06-26 ProblemAct [facility]_THSF RAN Gastroparesis active 2012-07-17 ProblemAct [facility]_T HSFRAN Asthma active 2012-07-17 ProblemAct [facility]_THS[facility] AN Solitary pulmonary nodule active 2013-11-08 ProblemAct [facility] Allergic rhinitis active 2012-07-17 ProblemAct [facility] Coronary artery disease involving [place] coronary artery of [place] heart without angina pectoris active 2015-01-21 ProblemAct [facility]_T HSFRAN Recurrent HSV (herpes simplex virus) active 2015-12-11 ProblemAct [facility] Hearing decreased, bilateral active 2018-12-18 ProblemAct [facility]_THS[facility]AN Subclinical hyperthyroidism active 2018-05-09 ProblemAct [facility]_THSFRAN Mucopurulent chronic bronchitis (CMS/HCC V24, CMS/HCC V28) active 2023-05-24 ProblemAct [facility]_THS[facility]AN Supplemental oxygen dependent active 2018-12-10 ProblemAct [facility]_THS[facility] Hypertensive retinopathy active 2021-11-10 ProblemAct [facility]_JIMSALECIA Immunizations Vaccine Date Source Lot Number Status Influenza trivalent, 0.5mL ( Fluad) 65yo and older 03/26/2024 [facility]_PHILLYFRCRAIG [id number] completed Influenza trivalent, 0.5mL ( Fluad) 65yo and older 02/28/2023 CT_PHILLYFRCRAIG [id number] completed Td Tetanus diptheria (Tdvax) 7yo and older 01/16/2023 CT_T HSFRAN [id number] completed [facility] #2 (ages 12 & older) Biv alent, COVID-19 05/24/2022 CT_RADHA [id number] completed Influenza trivalent, 0.5mL ( Fluad) 65yo and older 03/28/2022 CT_RADHA completed Influenza, Unspecified 03/10/2022 CT_JIMSFRCRAIG co mpleted [facility] #2 SARS-CoV-2 COVID-19, mRNA, LNP-S, preservative free 04/28/2021 CT_JIMSFRCRAIG UNK completed Influenza, Unspecified 03/28/2021 CT_JIMSFRAN co mpleted [employer] [facility] SARS-CoV-2 COVID -19, vector-nr, [id number], preservative free 09/09/2020 CT_JIMSFRCRAIG UNK completed Influenza trivalent, 0.5mL ( Fluad) 65yo and older 03/22/2020 CT_THSFRAN [id number] completed Influenza, Unspecified 02/24/2020 CT_THSFRAN co mpleted Influenza trivalent, 0.5mL ( Fluad) 65yo and older 03/13/2019 CT_JIMSFRAN [id number] completed Influenza trivalent, 0.5mL ( Fluad) 65yo and older 03/02/2018 CT_JIMSFRAN [id number] completed Influenza trivalent, 0.5mL ( Fluad) 65yo and older 03/01/2017 CT_THSFRAN [id number] completed Influenza trivalent, 0.5mL ( Fluad) 65yo and older 03/30/2016 CT_THSFRCRAIG [id number] completed Pneumococcal conjugate 13 va lent (Prevnar 13, PCV13) 2mo and older 03/30/2016 CT_SFRAN [id number] complet ed Influenza, Unspecified 04/06/2015 CT_THSFRAN co mpleted Influenza, Unspecified 05/06/2014 CT_THSFRAN co mpleted Pneumococcal polysaccharide 23 valent (Pneumovax 23) 2yo and older 04/28/2014 CT_THSFRAN [id number] com pleted Influenza, Unspecified 03/05/2013 CT_THSFRAN co mpleted Pneumococcal polysaccharide 23 valent (Pneumovax 23) 2yo and older 03/05/2013 CT_SFRAN [id number] com pleted Pneumococcal polysaccharide 23 valent (Pneumovax 23) 2yo and older 08/01/2012 CT_JIMSFRAN [id number] com pleted Tdap Tetanus diptheria acell ular pertussis (Boostrix; Adacel) 7yo and older 08/01/2012 [facility]_PHILLYFRCRAIG [id number] completed Encounters Encounter Type Encounter Reason Primary Diagnosis Location Date Inpatient Hypotension, unspecified [facility] 07/24/2021 Care Team Organization Name Specialty Phone Email Start Date End Da te [facility] 07/24/2021 02/05/[address] [facility] 07/24/2021 07/28/[address] [facility] 07/24/2021 07/28/[address] [facility] 07/24/2021 07/24/2021
--- OUTSIDE RECORDS SUMMARY | 2025-01-10 17:38 | XMS_ITS | Clinical Summary ---
Author Organization [facility] Address [address] [place] [address] Care Team Providers Care Presiding Judge Name Role Phone Pito Thompson MD Primary Care Provider [phone] Allergies No known active allergies Medications aspirin enteric coated (ECOTRIN LOW STRENGTH) 81 MG EC tabletIndication s:Coronary artery disease involving [place] heart, unspecified vessel or lesion type, unspecified [...] 88 07/28/2021 2:00 PM EST Temperature 36.4 C (97.5 F) 07/28/2021 2:00 PM EST Respiratory Rate 18 07/28/2021 2:00 PM EST [...] patient's age to complete this topic Insurance [facility] [place] [address] Advance Directives * Full Code (Latest Code Status on File) Date Activated Date Inactivated Comments 07/24/2021 9:24 PM Care Teams Presiding Judge Relationship Specialty Start Date End Date Pito Thompson MD [address] [place] [address] PCP - General 07/25/21
--- OUTSIDE RECORDS SUMMARY | 2025-01-10 17:38 | XMS_ITS | Patient Health Record ---
Author Organization [facility] Address [address] [place] [address] Care Team Providers Care Linen Supervisor Name Role Phone Narciso MITTAL, Yomi Primary Care Provider Deion Melendrez Unavailable [phone] Reason For Referral No Information Medications Medication SIG (Take, Route, Fr equency, Duration) Notes Start Date End Date Status NexIUM 40 MG 1 capsule Orally BID -take 30-60 minutes before breakfast and supper for 30 day(s) 06/01/2011 Active MiraLax Miralax as directed-1 capful in 8 ounces water Orally once to three times a day as needed for constipation for 30 days 04/07/2011 Active Plan Of Treatment No Information Insurance Providers Payer Name Payer Address Payer Phone Subscriber Number Group Number Insured Name Patient Relationship to Insured Coverage Start Date Coverage End Date MEDICARE OF [place] [address] [place] [address] [phone] CARLOS ADHIKARI Self - patient is the insured MEDICAID OF [facility] [address] [place] [address] [phone] CARLOS ADHIKARI Self - patient is the insured
--- OUTSIDE RECORDS SUMMARY | 2025-01-10 17:38 | XMS_ITS | Clinical Summary ---
Author Organization [facility] Address [address] [place] [address] Care Team Providers Care Box Puller Name Role Phone Kathy Christopher MD Primary [...] 120 09/14/2023 10:56 AM EDT Temperature 36.1 C (97 F) 09/14/2023 10:56 AM EDT Respiratory Rate - - Oxygen [...] season) 2024 04/28/2021, 09/09/2020 Influenza Vaccine (#1) 2025 3, 03/28/2022, 03/22/2020, Additional history exists Pneumococcal Vaccine Completed 03/30/2016, 04/28/2014, 03/05/2013, Additional history exists Hepatitis B Vaccines Aged Out No long er eligible based on patient's age to complete this topic RSV Ped < 20 months Aged Out No longe r eligible based on patient's age to complete this topic Care Teams Box Puller Relationship Specialty Start Date End Date Kathy Christopher MD [address] [place] [address] PCP - General Internal Medicine 09/14/23
--- NOTE | 2025-01-10 17:40 | PC.NURSE ---
discharged by provider from triage.
== END 2025-01-10 17:40 | disposition home or self-care (01) ==
PROVIDERS: Physician Assistant; Emergency Provider Internal Medicine; PCP Internal Medicine
DX: R51.9 Headache, unspecified (principal); H53.8 Other visual disturbances; E11.9 Type 2 diabetes mellitus without complications; Z79.84 Long term (current) use of oral hypoglycemic drugs; Z79.899 Other long term (current) drug therapy
CPT/HCPCS: 36415; 70450; 80048; 85025; 85652; 99281; 99284

== ENCOUNTER → 2025-01-10 14:44 | Outpatient (BNV) | payer OTHER, SELFPAY | PROVIDERS: PCP Internal Medicine; Visit Provider Radiology Diagnostic Radiology | DX: R51.9 Headache, unspecified (principal) | CPT/HCPCS: 70450 ==

== ENCOUNTER 2025-02-15 12:11 | Inpatient (IN) | payer OTHER, SELFPAY ==
--- OUTSIDE RECORDS SUMMARY | 2025-02-11 09:42 | XMS_ITS | Encounter Summary ---
Author Organization [facility] Address [address] [place] [address] Care Team Providers Care Stone Processing Machine Operator Name Role Phone Kathy Perez MD Primary Care Prov ider Reason for Referral * Pain Management (Routine) - Authorized Specialty Diagnoses / Procedures Referred By Contac t Referred To Contact Pain Medicine Diagnoses Radiculopathy, cervical region Procedures Injection epidural cervical without guidance Marcus Murcia DO [address] [facility] [address] [place] [address] Phone: tel: fax: Referral ID Status Reason Start Date Expiration Date V isits Requested Visits Authorized [id number] Authorized 12/31/2024 12/31/2025 1 1 Reason for Visit * Pain Management (Routine) - Authorized Specialty Diagnoses / Procedures Referred By Contac t Referred To Contact Pain Medicine Diagnoses Radiculopathy, cervical region Procedures Injection epidural cervical without guidance Marcus Murcia DO [address] [facility] [address] [place] [address] Phone: tel: fax: Referral ID Status Reason Start Date Expiration Date V isits Requested Visits Authorized [id number] Authorized 12/31/2024 12/31/2025 1 1 Encounter Details Date Type Department Care Team (Latest Contact Info) Description 02/11/2025 9:42 AM EDT - 02/11/2025 11:59 PM EDT Hospital Encounter [facility] [address] [place] [phone] Marcus Murcia DO [address] [place] [address] Jim Martin CRNA [address] [facility] [address] [place] [address] Rod Gill MD 114 [facility] [address] [place] [address] Radiculopathy, cervical region Discharge Disposition: Home or [...] loved ones. For example, child protective services specialist or elderly care for an older [...] Safety Answer Date Record ed Physical Abuse 02/11/2025 Verbal Abuse 02/11/2025 Comments No Sex and Gender Information Value Date Recorded Sex Assigned at Female 07/25/2024 3:18 PM EST Legal Sex Female 2:37 AM EST Gender Identity Female 07/25/2024 3:18 PM EST Sexual Orientation Straight 07/25/2024 3: 18 PM EST documented as of this encounter Last Filed Vital Signs Vital Sign Reading Time Taken Comments Blood Pressure 133/71 02/11/2025 12:30 PM EDT Pulse 93 02/11/2025 12:30 PM EDT Temperature 36.6 C (97.8 F) 02/11/2025 12:02 PM EDT Respiratory Rate 18 02/11/2025 12:02 PM EDT Oxygen Saturation 100% 02/11/2025 12:30 PM EDT Inhaled Oxygen Concentration - - Weight 81.6 kg (180 lb) 02/11/2025 9:55 AM EDT Height 162.6 cm (5' 4 ) 02/11/2025 9:55 AM EDT Body Mass Index 30.9 02/11/2025 9:55 AM EDT documented in this encounter Discharge Instructions * Attachments The following attachments cannot be sent through Care Everywhere. * Sedation (Tuvaluan) * Cervical Epidural Steroid: Post op (Tuvaluan) documented in this encounter Medications at Time [...] BY MOUTH EVERY DAY 90 tablet 1 10/11/2024 cholecalciferol (VITAMIN D-3) 50 mcg (2,000 unit) [...] (Trelegy Ellipta) 100-62.5-25 mcg inhaler Inhale by mouth 1 (one) time each day. 11/04/2019 furosemide (LASIX) 20 mg tablet TAKE 2 TABLETS BY MOUTH DAILY 60 tablet 5 10/10/2024 gabapentin (NEURONTIN) 100 mg capsule Take 1 capsule (100 mg total) by mouth 3 (three) times a day. 30 each 01/06/2025 glucose blood test strip Use as instructed 100 each 11 10/15/2024 isosorbide mononitrate (IMDUR) 30 mg 24 hr tablet TAKE 1 TABLET BY MOUTH EVERY DAY IN THE MORNING 90 tablet 3 05/09/2024 lidocaine (LIDODERM) 5 % patchIndications: Neck pain,Shoulder pain, unspecified chronicity, unspecified laterality Apply for no more than 12 hours in any [address] 1 patch on the skin 1 (one) time each day. Apply for no more than 12 hours in any 24 hour period. 30 patch 1 11/26/2024 melatonin 10 mg tablet Take by mouth at bedtime. metFORMIN XR (GLUCOPHAGE-XR) 500 mg 24 hr tablet TAKE 1 TABLET BY MOUTH EVERY DAY WITH BREAKFAST 90 tablet 2 10/16/2024 metoprolol tartrate (LOPRESSOR) 50 mg tablet TAKE 1 TABLET BY MOUTH TWICE A DAY 180 tablet 2 10/15/2024 nitroglycerin (NITROSTAT) 0.[address] [...] mouth 1 (one) time each day. 02/10/2023 valACYclovir (VALTREX) 1 gram tablet TAKE 2 TABLETS BY MOUTH 2 TIMES DAILY. (SEPARATE DOSES BY ~12 HOURS). USE FOR 1 DAY WITH EACH FLARE 12 tablet 09/26/2024 documented as of this encounter Discharge Disposition Disposition Code Departure Means Destination Home or Self Care documented in this encounter H&P Notes * Marcus Murcia DO - 02/11/2025 11:00 AM EDT Please refer to our office notes for complete details of history of present illness and physical examination. They were reviewed. No changes are reported. documented in this encounter Procedure Notes * Pallavi Correa RN - 02/11/2025 11:00 AM EDT [id number] [phone] * Marcus Murcia DO - 02/11/2025 11:00 AM EDT Procedure performed: C7-T1 EDMAR Physician: Marcus Murcia DO Preop diagnosis: Cervical radiculitis Postop diagnosis: Same Anesthesia: MAC Procedure in detail: After informed consent was obtained patient was brought into the procedure room and placed in the prone position on the procedure table. Skin over cervicothoracic area was prepped and draped in usualsterile manner. C7-T1 interlaminar space was visualized utilizing fluoroscopy. After skin was anesth etized with 1% lidocaine solution 4 inch 20-gauge Touhy epidural needle was introduced percutaneously and advanced toward the superior edge of the T1 lamina. Once the contact with the bone was reached, needle was gently redirected into the epidural space utilizing [id number] syringe. Once in place, needle placement was verified utilizing 2 cc of Isovue contrast solution. Excellent epidural spread was identified without evidence of vascular uptake. Total volume of 6 cc containing 40 mg of triamcinolone and normal saline solution was injected after negative aspiration for blood and cerebrospinal fluid. Patient tolerated procedure very well without complications. Patient was transported to the postop area for observation. Eventually patient was discharged home in stable condition accompanied by the family. Postprocedural instructions were provided. Radiation exposure was documented in the chart documented in this encounter Plan of Treatment Upcoming Encounters Date Type Department Care Team (Late st Contact Info) Description 03/04/2025 1:15 PM EDT Office Visit Adult Medicine [facility] [address] [place] [address] Lizzie Pisano PA [address] [place] [address] Scheduled Orders Name Type Priority Associated Diagnoses Orde r Schedule Injection epidural cervical without guidance Procedures Routine Radiculopathy, cervical region Once for 1 Occurrences starting 02/11/2025 until 02/11/2025 documented as of this encounter Procedures Procedure Name Priority Date/Time Associated Diagnosis Comments OXYGEN THERAPY, ADULT Routine 02/11/2025 12:10 PM EDT POCT GLUCOSE BLOOD Routine 02/11/2025 9: 52 AM EDT documented in this encounter Results * POCT Glucose, blood (02/11/2025 9:52 AM EDT) [facility] Signature Glucose POCT 94 70 - 100 mg/dL 02/11/2025 9:53 AM EDT [facility] ([facility] Blood Capillary blood specimen / Unknown 02/11/2025 9:52 AM EDT 02/11/2025 9:54 AM EDT us Rod Gill MD LAB POINT OF CARE TE ST DOCKED DEVICE UNSOLICITED RESULTS Final Result [facility] ([facility]) [facility] [address] [place] [address], documented in this encounter Visit Diagnoses Diagnosis Radiculopathy, cervical region Brachial neuritis or radiculitis nos documented in this encounter Administered Medications Inactive Administered Medications - up to 3 most recent administrations Medication Order MAR Action Action Date Dose Rate Site acetaminophen (TYLENOL) tablet 650 mg 650 mg, oral, Once, On Mon02/11/25 at 1230, For 1 dose, Recovery (only), Scheduled medication for mild pain Given 02/11/2025 12:29 PM EDT 650 mg iopamidoL (ISOVUE-300) 300 mg iodine /mL (61 %) solution As needed, Starting on Mon02/11/25 at 1154, Intraprocedure Given 02/11/2025 11:54 AM EDT 3 mL lidocaine (XYLOCAINE) 1 % injection As needed, Starting on Mon02/11/25 at 1154, Intraprocedure Given 02/11/2025 11:54 AM EDT 5 mL triamcinolone acetonide (KENALOG-40) 40 mg/mL injection As needed, Starting on Mon02/11/25 at 1154, Intraprocedure Given 02/11/2025 11:54 AM EDT 40 mg documented in this encounter Discontinued Medications Medication Sig Discontinue Reason Start Date End Da te cefuroxime (CEFTIN) 250 mg tablet Take 1 tablet (250 mg total) by mouth 2 (two) times a day. for 7 days 09/30/2024 02/11/2025 sulfamethoxazole-trimeth oprim (Bactrim) 400-80 mg per tabletIndications:Recurr ent UTI (urinary tract infection) Take 0.5 tablets by mouth 3 (three) times a week. 01/10/2025 02/11/2025 documented as of this encounter Orders Medications Ordered That Saad ht Not Have Been Administered Count Last Ordered Date First Ordered Date lactated Ringer's infusion 1 02/11/2025 Respiratory Care Count Last Ordered Date First Ordered Date OXYGEN THERAPY, ADULT 1 02/11/2025 Discharge Count Last Ordered Date First Orde red Date DISCHARGE PATIENT 1 02/11/2025 documented in this encounter Care Teams Stone Processing Machine Operator Relationship Specialty Start Date End Date Kathy Perez MD [address] [place] [phone] PCP - General Internal Medicine 07/22/24 documented as of this encounter
--- OUTSIDE RECORDS SUMMARY | 2025-02-11 11:05 | XMS_ITS | Encounter Summary ---
Author Organization [facility] Address [address] [place] [address] Care Team Providers Care Manager Of Procurement Name Role Phone Kathy Perez MD Primary Care Prov ider Encounter Details Date Type Department Care Team (Latest Contact Info) Description 02/11/2025 11:05 AM EDT - 02/11/2025 11:59 PM EDT Hospital Encounter [facility] [address] [place] [phone] Pain Discharge Disposition: Home or Self Care [...] for your loved ones. For example, children's tutor nursery or elderly care for an older adult? [...] PM EST documented as of this encounter Medications at [...] test strip Use as instructed 100 each 10/15/2024 6 isosorbide mononitrate (IMDUR) 30 mg 24 hr [...] 1:15 PM EDT Office Visit Adult Medicine [facility] [address] [place], [place] [phone] Lizzie Pisano PA [address] [place], [place] Pending Results Name Type Priority Associated Diagnoses Date /Time XR Fluoro Up To 1 Hour Imaging Routine Pain 02/11/2025 12:04 PM EDT Scheduled Orders Name Type Priority Associated Diagnoses Orde r Schedule XR Fluoro Up To 1 Hour Imaging Routine Pain Once for 1 Occurrences starting 02/11/2025 until 02/11/2025 documented as of this encounter Visit Diagnoses Diagnosis Pain Generalized pain documented in this encounter Care Teams Manager Of Procurement Relationship Specialty Start Date End Date Kathy Perez MD [address] [place] [phone] PCP - General Internal Medicine 07/22/24 documented as of this encounter
--- OUTSIDE RECORDS SUMMARY | 2025-02-11 11:40 | XMS_ITS | Encounter Summary ---
Author Organization [facility] Address [address] [place] [address] Care Team Providers Care Membership Sales Advisor Name Role Phone Kathy Perez MD Primary Care Prov ider Encounter Details Date Type Department Care Team (Late st Contact Info) Description 02/11/2025 11:40 AM EDT Anesthesia Event [facility] Pain Management [address] [place] [phone] Rod Gill MD [address] [place] [address] [address] [address] Anesthesia Record Procedure Summary Procedure Name Responsible Anesthesiologist Anesthesia Start Time Anesthesia Stop Time INJECTION EPIDURAL CERVICAL WITHOUT GUIDANCE Rod Gill MD 02/11/25 1140 02/11/25 1201 Events Date Time Event Comment 02/11/2025 0945 1140 An Start 1140 An Start Data The patient wa s reevaluated immediately before moderate or deep sedation use and before anesthesia induction. 1140 Anesthesia Ready 1141 In Room 1152 Proc Start 1154 Proc Fin 1155 an stop data 1155 Transport to PACU/ICU Patien t reassessed and ready for transfer, airway stable. Patient transport to designated recovery area. {Transport to PACU/ICU:[id number]} 1157 Out of Room 1159 Handoff to RN I completed my handoff to the receiving nurse during which we: 1. Identified the patient 2. Identified the responsible provider 3. Reviewed the pertinent medical history 4. Discussed the surgical course 5. Reviewed intra-op anesthesia management and issues during anesthesia 6. Set expectations for post-procedure period 7. Allowed opportunity for questions and acknowledgement of understanding. 1201 An Stop Meds Name Total midazolam (VERSED) PF injection 1 mg/mL 1 mg lactated Ringer's infusion 100 mL * Agents Name O2 * Blood No blood administrations on file. Lines, Drains, and Airways Type Details Placement Removal Wound Back; Left, Medial, Upper; pain injections site 08/27/24 1149 by Wound 02/11/25; 1155; Back ; Medial, Upper; steriod injection site 02/11/25 1155 by Caitlin Casey RN Peripheral IV Placement Date: 01/18 12/11; Placement Time: 1028; Catheter Size: 22 G; Orientation: Right; Location: Antecubital; Site Prep: Chlorhexidine; Local Anesth: None; Inserted by: MARICHUY SANCHZE; Insertion Attempts: 2; Patient Tolerance: Tolerated well; Removal Date: 02/11/25; Removal Time: 1259 02/11/25 1028 by Pallavi Correa RN 02/11/25 1259 by Amairani Paul RN documented in this encounter Social History [...] for your loved ones. For example, child development consultant or elderly care for an older adult? [...] as of this encounter Progress Notes * Jim Martin CRNA - 02/11/2025 12:01 PM EDT Patient: Shea Ramirez Procedure Summary Date: 02/11/25 Room / Location: [facility] Pain Management Anesthesia Start: 1140 Anesthesia Stop: 1201 Procedure: INJECTION EPIDURAL CERVICAL WITHOUT GUIDANCE Diagnosis: Radiculopathy, cervical region Scheduled Providers: Marcus Murcia DO; Jim Martin CRNA; Rod Gill MD Responsible Provider: Rod Gill MD Anesthesia Type: MAC ASA Status: 4 Anesthesia Plan: MAC Last Vitals: Vitals Value Taken Time BP 02/11/25 1201 Temp 02/11/25 1201 Pulse 02/11/25 1201 Resp 02/11/25 1201 SpO2 02/11/25 1201 No data recorded Anesthesia Post Evaluation Patient location during evaluation: PACU Patient participation: waiting for patient participation Level of consciousness: responsive to light touch Pain score: 0 Airway patency: patent Anesthetic complications: no Cardiovascular status: acceptable and stable Respiratory status: acceptable Hydration status: acceptable Nausea: No Vomiting: No There were no known notable events for this encounter. * Rod Gill MD - 02/10/2025 6:36 PM EDT Images from the original note were not included. 79 y.o. female scheduled for Radiculopathy, cervical region [INJECTION EPIDURAL CERVICAL WITHOUT GUIDANCE] Ht Readings from Last 1 Encounters: 01/06/25 1.626 m (64 ) Wt Readings from Last 1 Encounters: 01/06/25 83.5 kg (184 lb) There is no height or weight on file to calculate BMI. Past Medical History: Diagnosis Date ??? Allergic rhinitis 07/17/2012 DX:Allergic rhinitis ??? Anxiety 06/18/2013 DX:Anxiety ??? Asthma 07/17/2012 DX:Asthma ??? Cervical radiculopathy ??? COPD (chronic obstructive pulmonary disease) ([facility] V24, [facility] V28) DX:COPD (chronic obstructive pulmonary disease) ([facility]) ??? Diabetes mellitus ([facility] V24, [facility] V28) DX:Diabetes mellitus ([facility]) ??? Diabetes mellitus type 2 with neurological manifestations ([facility] V24, [facility] V28) 08/01/2015 DX:Diabetes mellitus type 2 with neurological manifestations ([facility]); COMMENT: A1C 6.5 09/28 transfer records ??? Diverticulosis 05/20/2015 DX:Diverticulosis ??? Gastric ulcer, acute 11/2015 DX:Gastric ulcer, acute; COMMENT: iron related gastritis ??? Gastroparesis 07/17/2012 DX:Gastroparesis ??? GERD (gastroesophageal reflux disease) 07/17/2012 DX:GERD (gastroesophageal reflux disease) ??? Heart failure (CMS/HCC V24, CMS/HCC V28) DX:Heart failure (HCC) ??? HTN (hypertension) 07/17/2012 DX:HTN (hypertension) ??? Hyperlipidemia 07/18/2014 DX:Hyperlipidemia ??? Hypertension DX:Hypertension ??? Insomnia 07/17/2012 DX:Insomnia ??? Osteoarthritis DX:Osteoarthritis ??? Solitary pulmonary nodule 11/08/2013 DX:Solitary pulmonary nodule; COMMENT: 4mm, followed for 2 yrs w/o change ??? Syncope DX:Syncope ??? Tubular adenoma of colon 05/20/2015 DX:Tubular adenoma of colon; COMMENT: X1 on CN 06/2005 / neg 06/2010/ x1 06/2015 Past Surgical History: Procedure Laterality Date ??? APPENDECTOMY PROCEDURE:APPENDECTOMY ??? BLADDER SUSPENSION 05/29/2018 PROCEDURE: HISTORICAL BLADDER SUSPENSION ??? CARDIAC CATHETERIZATION 09/26/2014 PROCEDURE: HISTORICAL CARDIAC CATH; COMMENT: RCA stent [facility], Dr Hernandez ??? COLONOSCOPY 06/2005 PROCEDURE: HISTORICAL COLONOSCOPY; COMMENT: tubular adenoma ??? COLONOSCOPY 06/2010 PROCEDURE: HISTORICAL COLONOSCOPY; COMMENT: negative ??? COLONOSCOPY 12/16/2015 PROCEDURE: HISTORICAL COLONOSCOPY; COMMENT: tubular adenoma ??? CYSTOSCOPY 03/18/2019 PROCEDURE: HISTORICAL CYSTOSCOPY; COMMENT: Normal ??? FOOT SURGERY PROCEDURE: HISTORICAL FOOT SURGERY; COMMENT: 18 y/o bunionectomy ??? FOOT SURGERY 12/2013 PROCEDURE: HISTORICAL FOOT SURGERY; COMMENT: for second toe arthroplasty ??? KNEE SURGERY Left PROCEDURE: HISTORICAL KNEE SURGERY; COMMENT: Arthroscopy ??? OTHER SURGICAL HISTORY 2007 PROCEDURE: RI CORRECTION HAMMERTOE; COMMENT: ??? SHOULDER SURGERY Left PROCEDURE: HISTORICAL SHOULDER SURGERY; COMMENT: Arthroscopy with Dr. Berg ??? TUBAL LIGATION PROCEDURE:TUBAL LIGATION ??? UPPER GASTROINTESTINAL ENDOSCOPY 03/22/2012 PROCEDURE: RI UPPER GI ENDOSCOPY PERFORMED; COMMENT: Normal study ??? UPPER GASTROINTESTINAL ENDOSCOPY 11/27/2015 PROCEDURE: RI UPPER GI ENDOSCOPY PERFORMED; COMMENT: Gastritis and polyp. Normal Esophagus and duodenum. ??? UPPER GASTROINTESTINAL ENDOSCOPY 2012 PROCEDURE: RI UPPER GI ENDOSCOPY PERFORMED; COMMENT: FOR GERD ??? UPPER GASTROINTESTINAL ENDOSCOPY 08/18/2004 PROCEDURE: RI UPPER GI ENDOSCOPY PERFORMED Anesthesia complications Denies Allergies Allergen Reactions ??? Amoxicillin-Pot Clavulanate Rash Prior to Admission medications Medication Sig Start Date End Date Taking? Authorizing Provider albuterol 2.5 mg /3 mL (0.083 %) nebulizer solution TAKE 1 VIAL BY NEBULIZATION EVERY 4 HOURS NEEDED FOR WHEEZING 07/16/24 Kathy Perez MD albuterol HFA (PROAIR HFA ; PROVENTIL HFA ; VENTOLIN HFA) 90 mcg/actuation inhaler Inhale 2 puffs by mouth every 4 (four) hours if needed (Cough, Wheezing or Shortness of Breath). 10/10/22 Historical Provider, ASPIRIN ORAL Take 81 mg by mouth 1 (one) time each day. Historical Provider, atorvastatin (LIPITOR) 80 mg tablet Take 1 tablet (80 mg total) by mouth 1 (one) time each day. 07/30/24 07/30/25 Kathy Perez MD azelastine (ASTELIN) 137 mcg (0.1 %) nasal spray Administer 2 sprays into each nostril 2 (two) times a day. Use in each nostril as directed Historical Provider, cefuroxime (CEFTIN) 250 mg tablet Take 1 tablet (250 mg total) by mouth 2 (two) times a day. for 7 days 09/30/24 Historical ProviderMD cetirizine (ZyrTEC) 10 mg tablet TAKE 1 TABLET BY MOUTH EVERY DAY 10/11/24 Kathy Perez MD cholecalciferol (VITAMIN D-3) 50 mcg (2,000 unit) capsule Take 1 capsule (2,000 Units total) by mouth 1 (one) time each day. 02/18/22 Historical Provider, dexlansoprazole (DEXILANT) [address] capsule TAKE 1 CAPSULE BY MOUTH EVERY DAY 07/17/24 Kathy Perez MD diclofenac (VOLTAREN) 1 % topical gel Apply 2 g topically if needed (PAIN). 04/21/23 Historical Provider, estradioL (ESTRACE) 0.01 % (0.1 mg/gram) vaginal cream Insert into the vagina at bedtime. Apply a pea-sized amount of cream with your finger into the vagina daily at bedtime for 2 weeks, then two times a week at night. 04/05/23 Historical Provider, fluticasone propionate (FLONASE) 50 mcg/actuation nasal spray Administer 2 sprays into each nostril1 (one) time each day. Shake gently. Before first use, prime pump. After use, clean tip and replacecap. Historical Provider, isfpzhwnnaz-ueqtmeonqfao-joketdvejs (Trelegy Ellipta) 100-62.5-25 mcg inhaler Inhale by mouth. 11/04/19 Historical Provider, furosemide (LASIX) 20 mg tablet TAKE 2 TABLETS BY MOUTH DAILY 10/10/24 Kameron Zuñiga MD gabapentin (NEURONTIN) 100 mg capsule Take 1 capsule (100 mg total) by mouth 3 (three) times a day.01/06/25 Kathy Perez MD glucose blood test strip Use as instructed 10/15/24 10/15/25 Kathy Rizo MD isosorbide mononitrate (IMDUR) 30 mg 24 hr tablet TAKE 1 TABLET BY MOUTH EVERY DAY IN THE MORNING 05/09/24 Kathy Perez MD lidocaine (LIDODERM) 5 % patch Apply for no more than 12 hours in any [address] 1 patch on the skin 1 (one) time each day. Apply for no more than 12 hours in any 24 hour period. 11/26/24 JESSICA Arenas melatonin 10 mg tablet Take by mouth at bedtime. Historical Provider, metFORMIN XR (GLUCOPHAGE-XR) 500 mg 24 hr tablet TAKE 1 TABLET BY MOUTH EVERY DAY WITH BREAKFAST 10/16/24 Kathy Perez MD metoprolol tartrate (LOPRESSOR) 50 mg tablet TAKE 1 TABLET BY MOUTH TWICE A DAY 10/15/24 Kameron Zuñiga MD nitroglycerin (NITROSTAT) 0.[address] 1 tablet (0.4 mg total) under the tongue every 5 (five) minutes if needed for chest pain. IF NO RELIEF CALL 911 07/30/24 Kathy Perez MD Oxygen Therapy (O2) gas Administer 2-3 L into affected nostril(s) at bedtime. Merlene Historical Provider, plecanatide (Trulance) 3 mg tablet Take 1 tablet (3 mg total) by mouth 1 (one) time each day. 02/10/23 Historical Provider, sulfamethoxazole-trimethoprim (Bactrim) 400-80 mg per tablet Take 0.5 tablets by mouth 3 (three) times a week. 01/10/25 04/10/25 Kathy Perez MD valACYclovir (VALTREX) 1 gram tablet TAKE 2 TABLETS BY MOUTH 2 TIMES DAILY. (SEPARATE DOSES BY ~12 HOURS). USE FOR 1 DAY WITH EACH FLARE 09/26/24 Kathy Perez MD I have personally reviewed all the patient's medications with them prior to anesthesia. Current In-hospital Medications Social History Tobacco Use ??? Smoking status: Former Current packs/day: 0.00 Average packs/day: 2.0 packs/day for 30.8 years (61.6 ttl pk-yrs) Types: Cigarettes Start date: 1958 Quit date: 07/17/1989 Years since quittin.5 ??? Smokeless tobacco: Never Substance Use Topics ??? Alcohol use: No ??? Drug use: No Is the patient a current smoker (e.g. cigarette, cigar, pip, e-cigarette, or mariajuana)? Yes [] No[] Patient previously instructed to abstain from smoking on the day of procedure? Yes [] No[] Patient smoked on the day of procedure? Yes [] No[] ASPIRE smoking VBR: [] Not interested in quitting [] Interested in quitting- referred to treatment [] Interested in quitting - treatment provided Visit Vitals Smoking Status Former LABS: Lab Results Component Value Date WBC 9.1 01/06/2025 HGB 11.0 (L) 01/06/2025 HCT 35.0 01/06/2025 MCV 94.3 01/06/2025 PLT 339 01/06/2025 Lab Results Component Value Date GLUCOSE 99 01/06/2025 CALCIUM 9.3 01/06/2025 NA 141 01/06/2025 K 4.4 01/06/2025 CO2 30 01/06/2025 CL 106 01/06/2025 BUN 13 01/06/2025 CREATININE 0.98 01/06/2025 No results found for: INR , PROTIME No results found for: PTT Relevant Problems Cardio (+) Asymptomatic stenosis of intracranial artery (+) CHF (congestive heart failure) ([facility] V24, [facility] V28) (+) Coronary artery disease involving [place] coronary artery of [place] heart without angina pectoris (+) SOTELO (dyspnea on exertion) (+) Primary hypertension (+) Stenosis of left vertebral artery Pulmonary (+) Asthma (+) COPD (chronic obstructive pulmonary disease) ([facility] V24, [facility] V28) (+) SOTELO (dyspnea on exertion) (+) Mucopurulent chronic bronchitis ([facility] V24, [facility] V28) (+) Obstructive sleep apnea (+) Supplemental oxygen dependent Endo (+) Subclinical hyperthyroidism (+) Type 2 diabetes mellitus with stage 3 chronic kidney disease, without long- term current use of insulin ([facility] V24, [facility] V28) GI (+) GERD (gastroesophageal reflux disease) Other (+) Anemia (+) Iron deficiency anemia due to chronic blood loss (+) Osteoarthritis (+) Osteoarthritis of both shoulders (+) Tubular adenoma of colon Clinical information reviewed: Anesthesia Plan ASA 4 Anesthesia Plan: MAC Induction method: intravenous Anesthetic plan and risks discussed with patient. Anesthesia Plan discussed with HIGH SCHOOL PHYSICAL EDUCATION TEACHER. Anesthesia Evaluation History of anesthetic complications Airway Mallampati: II Thyromental distance: > 3 finger breadths Neck ROM: fullnot intubatedno noted risk Dental (+) upper dentures Comment: Upper full denture, edentulous bottom Pulmonary breath sounds clear to auscultation (+) COPD, asthma, shortness of breath, sleep apnea ROS comment: Home O2 Cardiovascular (+) hypertension, CAD, CABG/stent, CHF, SOTELO Rhythm: regular Rate: normal ROS comment: Stress Test (07/2024): IMPRESSION: Normal Regadenoson stress test with nuclear imaging. No chest pain or EKG changes consistent with ischemia. Nuclear imaging revealed no significant perfusion defects after attenuation correction was applied. There is a normal TID ratio. Gated SPECT imaging was performed and revealed an LVEF of 59 %. Neuro/Psych GI/Hepatic/Renal (+) GERD, PUD, chronic renal disease Endo/Other (+) diabetes mellitus, hyperthyroidism Abdominal PONV RISK SCORE: 2 There were no vitals filed for this visit. SpO2 Readings from Last 1 Encounters: 01/06/25 94% WBC Date Value Ref Range Status 01/06/2025 9.1 4.8 - 10.8 K/mcL Final RBC Date Value Ref Range Status 01/06/2025 3.70 (L) 3.80 - 4.80 M/mcL Final Hemoglobin Date Value Ref Range Status 01/06/2025 11.0 (L) 11.5 - 16.0 g/dL Final Hematocrit Date Value Ref Range Status 01/06/2025 35.0 35.0 - 47.0 % Final Platelets Date Value Ref Range Status 01/06/2025 339 130 - 400 K/mcL Final MCV Date Value Ref Range Status 01/06/2025 94.3 79.0 - 98.0 FL Final Allergies Allergen Reactions ??? Amoxicillin-Pot Clavulanate Rash STOP BANG: No data recorded NPO Status: No data recorded documented in this encounter Plan of Treatment Upcoming Encounters Date Type Department Care Team (Late st Contact Info) Description 03/04/2025 1:15 PM EDT Office Visit Adult Medicine [facility] [address], [place] [phone] Lizzie Pisano PA [address], [place] documented as of this encounter Visit Diagnoses Not on filedocumented in this encounter Administered Medications Inactive Administered Medications - up to 3 most recent administrations Medication Order MAR Action Action Date Dose Rate Site lactated Ringer's infusion intravenous, Continuous PRN, Starting on Mon02/11/25 at 1124, Anesthesia Intraprocedure New Bag 02/11/2025 11:24 AM EDT 75 m L/hr midazolam (PF) (VERSED) injection intravenous, As needed, Starting on Mon02/11/25 at 1147, Anesthesia Intraprocedure Given 02/11/2025 11:47 AM EDT 1 mg documented in this encounter Care Teams Membership Sales Advisor Relationship Specialty Start Date End Date Kathy Perez MD [address] [place] [phone] PCP - General Internal Medicine 07/22/24 documented as of this encounter
--- NOTE | ~2025-02-15 | CT_ITS ---
CLINICAL HISTORY: flank pain, R O obstructive pathology CT abdomen and pelvis with contrast Comparison: CT - CT ABDOMEN PELVIS W IV CON - 02/15/25 15:41 EDT Findings: The lung bases are clear. The gallbladder and solid organs are within normal limits. No renal stones. No bowel obstruction, pneumoperitoneum, or pneumatosis. Stable peripherally enhancing cystic focus inferior to the urinary bladder, measuring 30 mm transverse by 35 mm anteroposterior by 68 mm craniocaudal. Diffuse urinary bladder wall thickening.Appendix is not seen. The bones are intact. IMPRESSION: 1. Stable peripherally enhancing fluid density focus inferior to the urinary bladder, possibly indicating uninfected cystic lesion versus dilated urethra. Underlying neoplasm can not be excluded. Gynecologic consultation recommended. 2. Urinary bladder wall thickening, suggestive of cystitis. Correlation with urinalysis is recommended. This document has been electronically signed by: Jose C Pugh MD on 02/15/2025 16:29:06
[2025-02-15 12:41] VITALS: BP 151/95; PULSE 83; RESP 16; TEMP 36.8; O2SAT 95; BMI 30.2
--- NOTE | 2025-02-15 12:48 | ED_ITS ---
HPI - General Adult General Chief complaint: Urogenital-Female Stated complaint: UTI Time Seen by Provider: 02/15/25 14:40 Source: patient, RN notes reviewed and old records reviewed Mode of arrival: ambulatory Limitations: no limitations History of Present Illness ED Provider: Adryan aPul PA-C HPI narrative: 79-year-old female with medical history of COPD on 2L NC at bedtime, CKD stage 3, obesity, HLD, HTN, GERD, IBS, T2DM, ESBL UTIs, presents to the ED due to 3 days of suprapubic pain, intermittent nausea, urinary frequency, and burning with urination, states urine is chambers in color. Patient states she was hospitalized at [facility] [place] on 12[place] and medicated with IV ertapenem. Patient went to urgent care prior to arrival who recommended she come to ED for further evaluation. Denies fevers, chills, vomiting, diarrhea, black/tarry stool, chest pain, shortness of breath MD complaint: Urinary symptoms Related Data Home Medications ?Medication ?Instructions ?Recorded ?Confirmed cetirizine 10 mg tablet 10 mg PO DAILY 03/21/2001/19 nitroglycerin 0.4 mg sublingual 0.4 mg sublingual ONCE PRN Chest 03/21/20 02/15/25 tablet Pain albuterol sulfate 2.5 mg/3 mL 2.5 mg inhalation Q4H AL N wheezing 04/28/20 02/15/25 (0.083 %) solution for nebulization melatonin 10 mg tablet 10 mg PO BEDTIME PRN Sleep 0 08/19/21 02/15/25 aspirin 81 mg tablet,delayed 81 mg PO DAILY 09/02/21 0 02/15/25 release isosorbide mononitrate 30 mg 30 mg PO DAILY 09/02/21 0 02/15/25 tablet,extended release 24 hr Oxygen Home Use 09/16/22 10/08/24 nebulizers 09/16/22 10/08/24 metformin 500 mg tablet,extended 500 mg PO DAILY 10/2902/15/25 release 24 hr metoprolol tartrate 50 mg tablet 50 mg PO BID 06/17/24 02/15/25 atorvastatin 80 mg tablet 80 mg PO DAILY 06/20/2401/19 fluticasone fur. 200 mcg-umeclid 1 ea inhalation DAILY 12/27/24 02/15/25 62.5 mcg-vilant 25 mcg inhalat.powder (Trelegy Ellipta) furosemide 20 mg tablet 20 mg PO DAILY 12/27/2401/19 diclofenac sodium 1 % topical gel 1 ea topical DAILY P RN Pain (Scale 02/15/25 02/15/25 Score 1-3) polyethylene glycol 3350 17 17 g PO DAILY 02/15/25 gram/dose oral powder (Miralax) Previous Rx's ?Medication ?Instructions ?Recorded cholecalciferol (vitamin D3) 50 50 mcg PO DAILY 30 day s #30 caps 04/08/20 mcg (2,000 unit) capsule fluticasone propionate 50 2 spray intranasal DAILY 30 days 08/11/22 mcg/actuation nasal #15.8 mL spray,suspension lidocaine 5 % topical patch 1 patch topical DAILY #15 ea 04/11/24 albuterol sulfate 90 mcg/actuation 2 puff PO Q4H PRN f or wheezing #1 05/14/24 aerosol inhaler ea dexlansoprazole 60 mg 60 mg PO DAILY #90 caps 06/20 02/10 capsule,biphase delayed release sennosides 8.6 mg tablet (senna) 17.2 mg (2 x 8.6 mg) PO DAILY PRN 09/11/24 constipation 90 days #180 tabs Allergies Allergy/AdvReac Type Severity Reaction Status Date / Time amoxicillin (Augmentin) Allergy Mild Rash Verified 02/15/25 12:43 clavulanic acid (From Allergy Mild RASH Verified 02/15/25 12:43 Augmentin) Review of Systems 2 Review of Systems: CONST: Negative for fever, body aches and chills. HENT: Negative for neck pain/stiffness, headache, congestion, sore throat, swelling. EYES: Negative for discharge/pain or vision changes. RESP: Negative for cough/hemoptysis and shortness of breath. CV: Negative chest pain, difficulty breathing, palpitations. ABD: Negative nausea, vomiting. POS suprapubic pain : Negative blood in urine or stool. POS increased frequency, dysuria MUSC: Negative for muscle aches, edema. SKIN: Negative rash, lesions/sores. NEURO: Negative headache, dizziness, weakness. Yes all other systems are reviewed and are negative PMFSH Past Medical History Attestation statement: The following information was validated with the patient. Source: old records reviewed and nursing notes reviewed Medical History CKD (chronic kidney disease) stage 3, GFR 30-59 ml/min Obesity (BMI 30.0-34.9) Chronic respiratory failure Asthma-COPD overlap syndrome Incontinence in female History of adenomatous polyp of colon Pneumonitis Bronchopneumonia Hypogammaglobulinemia Chronic rhinitis Dizziness Headache Hyperlipidemia HTN (hypertension) Diabetes COPD (chronic obstructive pulmonary disease) Surgical History S/P right coronary artery (RCA) stent placement H/O colonoscopy History of foot surgery History of toe surgery History of bunionectomy Family History Family History Mother No problems noted. Father No problems noted. Social History Social History Household Members: Family Housing: Apartment Do you presently have visiting nurse or other home services: Yes (PRELOAD SUPERVISOR) Alcohol intake: never Patient Tobacco Use Status: Former Tobacco user Tobacco use type: Cigarette Second Hand Smoke Exposure: No Advance Directives: Yes Advance Directives on File: Yes Advance Directives Date on File: 10/03/23 service: No Current occupational status: retired Sexual orientation: Straight/Heterosexual Gender identity: Female Physical Exam ED Vital Signs: Vital Signs - 24 hr 02/15/25 12:41 02/15/25 14:32 02/15/25 16:43 Temperature 98.3 F 98.3 F 98.0 F Pulse Rate 83 86 86 Respiratory Rate 16 18 18 Blood Pressure 151/95 H 114/61 139/72 Pulse Oximetry 95 98 97 Oxygen Delivery Method Room Air Room Air Room Air BMI result Body Mass Index 30.2 GENERAL APPEARANCE: ?AxOx4, generally well-appearing, no acute distress. HEENT: ?NC, AT. MMM. EOMI, clear conjunctiva, oropharynx clear. NECK: ?Supple without lymphadenopathy.? No stiffness or restricted ROM. HEART:? Normal rate and regular rhythm, normal S1/S2, no m/r/g LUNGS:? Diminished breath sounds throughout all lung celestin ABDOMEN: ?Soft, nondistended, no rigidity, no guarding, TTP over suprapubic region BACK: No CVAT, no obvious deformity. EXTREMITIES: ?Without cyanosis, clubbing or edema. NEUROLOGICAL: ?Grossly nonfocal. Alert and oriented, moving all 4 extremities. Skin: ?Warm and dry without any rash. Course Course Course Narrative: RME, this is a rapid medical exam performed by Elio Stockton please refer to primary provider for complete H&P- 79 old female presents for evaluation of 3 days of burning with urination, flank pain. She has a history of ESBL. She was sent here from urgent care due to history of drug-resistant UTIs. She has an allergy to amoxicillin. Plan for labs, urinalysis Medications Administered Generic Name Dose Route Start Last Admin Trade Name Freq PRN Reason Stop Dose Admin Hydromorphone HCl 0.5 mg 02/15/25 17:54 02/15/25 18:00 Hydromorphone Hcl 0.5 Mg/0.5 Ml Syringe IVPUSH 0.5 mg Q3H PRN Administration Pain, Severe (Pain Scale 7-10) Protocol Discontinued Medications Generic Name Dose Route Start Last Admin Trade Name Freq PRN Reason Stop Dose Admin Hydromorphone HCl 1 mg 02/15/25 17:12 02/15/25 17:22 Hydromorphone Hcl 1 Mg/Ml Syringe IVPUSH 02/15/25 17:13 1 mg ONCE ONE Administration Protocol Sodium Chloride 500 mls @ 500 mls/hr 02/15/25 15:45 02/15/25 17:13 Ns IV 02/15/25 16:44 Infused .Q1H AMANDA Infusion Iohexol 100 ml 02/15/25 16:07 02/15/25 16:08 Iohexol 350 Mg/Ml 100 Ml Infus..Btl IV 02/15/25 16:08 85 ml ONCE ONE Administration Meropenem 1 gm 02/15/25 16:43 02/15/25 17:11 Meropenem 1 Gm Vial IVPUSH 02/15/25 16:44 1 gm ONCE ONE Administration Morphine Sulfate 4 mg 02/15/25 16:06 02/15/25 16:13 Morphine Sulfate 4 Mg/Ml Cartridge IVPUSH 02/15/25 16:07 4 mg ONCE ONE Administration Protocol Medical Decision Making Medical Decision Making MDM Narrative: 79-year-old female with medical history of COPD on 2L NC at bedtime, CKD stage 3, obesity, HLD, HTN, GERD, IBS, T2DM, ESBL UTIs, presents to the ED due to 3 days of suprapubic pain, intermittent nausea, urinary frequency, and burning with urination, states urine is chambers in color. Patient states she was hospitalized at [facility] [place] on 12[place]27[place]30 and medicated with IV ertapenem. VS on initial observation-BP 114/61, pulse rate of 86, respiratory rate of 18, afebrile with oral temperature of 98.3?, O2 saturation 98% on room air. Plan: Labs, UA, CT abdomen pelvis Course 17:11- Labs reveal leukocytosis of 19.5, H&H stable, no evidence of electrolyte abnormality, lactic acid of 2.3. UA with 1+ urine protein, 2+ urine blood, positive nitrites, 3+ LE, 6-10 urine RBCs, >50 WBC, 4+ bacteria. CT abdomen and pelvis observed Stable peripherally enhancing fluid density focus inferior to the urinary bladder, possibly indicating uninfected cystic lesion versus dilated urethra. Underlying neoplasm can not be excluded. Gynecologic consultation recommended. Urinary bladder wall thickening, suggestive of cystitis- I reached out to Urologist Dr. Roach as the deficits appeared to involve only the bladder, not the uterus when I was reviewing images. She agreed with hospital admission and IV antibiotics with BILLIARD PLAYER consult while patient is admitted. At 5:11 p.m. on 02/15/2025 I suspected infection and treated patient with 1 g meropenem for suspected ESBL UTI. Patient with pain, I medicated her with 4 g of morphine, gentle IV fluids without effect. I then medicated with 1 g of Dilaudid which may patient more comfortable. I spoke with Admitting Hospitalist Dr. Carson who will admit patient to medicine for further evaluation and treatment of UTI and CT scan findings. Differential Diagnosis Differential Diagnoses: The differential diagnosis associated with the presentation includes Obstructive nephrolithiasis UTI Pyelonephritis Admission/Observation Consideration of admission/observation: Escalation of care including admission/observation considered Lab Data MDM Lab Attestation statement: I reviewed the patient's lab results. 02/15/25 12:51 02/15/25 12:51 Labs: Lab Results 02/15/25 02/15/25 02/15/25 Range/Units 12:51 15:03 15:27 WBC 19.5 H (4.8-10.8) X10*3/uL RBC 4.18 L (4.20-5.50) X10*6/uL Hgb 12.5 (12.0-16.0) g/dl Hct 36.2 L (37.0-47.0) % MCV 86.6 (80.0-98.0) fL MCH 29.9 (27.0-33.0) pg MCHC 34.5 (31.0-35.0) g/dl RDW 15.7 (11.0-16.0) % Plt Count 348 (160-400) X10*3/uL MPV 9.9 (9.4-12.3) fL Immature Gran % (Auto) 1.0 H (0.0-0.4) % Neut % (Auto) 73.2 H (45-73) % Lymph % (Auto) 12.9 L (20-40) % Sedgwick % (Auto) 12.8 H (2-11) % Eos % (Auto) 0.0 (0-4) % Baso % (Auto) 0.1 (0-2) % Lymph # (Auto) 2.5 (1.2-4.9) X10*3/uL Sedgwick # (Auto) 2.5 H (0.1-1.2) X10*3/uL Eos # (Auto) 0.0 (0.0-0.4) X10*3/uL Baso # (Auto) 0.0 (0.0-0.2) X10*3/uL Abs Immat Gran (auto) 0.19 H (0.00-0.03) X10*3/uL Absolute Neuts (auto) 14.3 H (2.0-8.3) x10*3/uL Absolute Nucleated RBC 0.030 H (0.0-0.012) X10*3/uL Nucleated RBC % (auto) 0.2 (0.0-0.2) /100WBC Smear Tech's Comments VERIFIED Sodium 143 (135-145) mmol/L Potassium 4.2 (3.3-5.1) mmol/L Chloride 106 (96-108) mmol/L Carbon Dioxide 23 (22-29) mmol/L Anion Gap 18 (12-20) BUN 24 H (9-16) mg/dL Creatinine 1.17 (0.5-1.4) mg/dL Estim Creat Clear Calc 36.3 Estimated GFR 45 Random Glucose 131 H (60-115) mg/dL Lactic Acid 2.3 H* (0.5-2.0) mmol/L Calcium 9.4 (8.4-10.2) mg/dL Urine Color Yellow Urine Appearance Turbid Urine pH 6.0 (5.0-9.0) Ur Specific Watson 1.015 (1.005-1.025) Urine Protein 30 (1+) H (Neg-Trace) mg/dL Urine Glucose (UA) Negative (Negative) mg/dL Urine Ketones Negative (Negative) mg/dL Urine Blood Moderate (2+) H (Negative) Urine Nitrite Positive H (Negative) Ur Leukocyte Esterase Large (3+) H (Negative) Urine RBC 6-10 H (0-2) /HPF Urine WBC >50 H (0-5) /HPF Ur Squamous Epith Cells 0-2 (0-2) /HPF Urine Bacteria 4+ (None Seen) Hyaline Casts 0-2 (0-2) /LPF Independent Interpretation I performed an independent interpretation of an: CT Scan Radiology Impression Discussion of test interpretation with radiology: I have reviewed the radiologist's reading. Radiologist Impression: CT abdomen and pelvis Findings: The lung bases are clear. The gallbladder and solid organs are within normal limits. No renal stones. No bowel obstruction, pneumoperitoneum, or pneumatosis. Stable peripherally enhancing cystic focus inferior to the urinary bladder, measuring 30 mm transverse by 35 mm anteroposterior by 68 mm craniocaudal. Diffuse urinary bladder wall thickening.Appendix is not seen. The bones are intact. IMPRESSION: 1. Stable peripherally enhancing fluid density focus inferior to the urinary bladder, possibly indicating uninfected cystic lesion versus dilated urethra. Underlying neoplasm can not be excluded. Gynecologic consultation recommended. 2. Urinary bladder wall thickening, suggestive of cystitis. Correlation with urinalysis is recommended. This document has been electronically signed by: Jose C Pugh MD on 02/15/2025 16:29:06 Dictated By: Jose C Pugh MD Signed By: <Electronically signed by Jose C Pugh MD in OV> 02/15/25 [id number] External Record Review External record reviewed: Inpatient record, Office record and Outpatient record Chronic Conditions Patient?s care impacted by: Diabetes, Hypertension and Other (COPD, CKD stage day, HLD, GERD, IBS, ESBL UTI) Discharge Plan Discharge Clinical Impression: UTI (urinary tract infection) Patient Disposition: Admitted As Inpatient Interventions: Admission Worksheet (ED) Last Done: 02/15/25 18:41
--- OUTSIDE RECORDS SUMMARY | 2025-02-15 12:59 | XMS_ITS | Encounter Summary ---
Author Organization [facility] Address [address] [place] [address] Care Team Providers Care Mri Assistant Name Role Phone Wiley Thompson MD Primary Care Provider Kameron Cornejo MD Unavailable Katya Lopez NP Unavailable Unavailab Kathy Haley MD Primary Care Prov ider Be Pacheco NP Unavailable [phone] Maycol Infante MD Unavailable Unavailable Sebastian Martinez MD Unavailable UnavailEve Blackmon MD Unavailable Elisa Romero NP Unavailable Marcus Murcia DO Unavailable Unavailable Encounter Details Date Type Department Care Team Description 01/15/2019 Orders Only Medical Records [address] [place] [address] Abstract, Provider Mammographic microcalcification Social History Tobacco [...] Procedure Name Priority Date/Time Associated Diagnosis Comments KS BX BREAST W/DEVICE 1ST LESION STEREOTACTIC GUID Routine 01/14/2019 Mammographic microcalcification documented in this encounter Results * BX BREAST W DEVICE 1ST LESION STEREOTACTIC GUIDE (01/14/2019) Ivan Reddy MD MAMMOGRAPHY documented in this encounter Visit Diagnoses Diagnosis Mammographic microcalcification documented in this encounter Care Teams Mri Assistant Relationship Specialty Start Date End Date Wiley Thompson MD PCP - General Internal Medicine 06/04/14 01/20/22 Kathy Christopher MD [address] [place] [address] PCP - General Internal Medicine 01/21/22 Kameron Zuñiga MD Receiving Barn Custodian Cardiovascular Disease 08/04/21 Katya Lopez NP Cardiology 08/04/21 01/30/24 Be Pacheco NP [address] [place] [address] Nurse Practitioner Cardiology 10/17/22 01/30/24 Maycol Infante MD [address] [place] [address] Specialist Pulmonology 10/19/22 Sebastian Martinez MD [address] [place], [place] [id number] Specialist Ophthalmology 03/21/23 Eve Juan MD [address] [place] [address] [place] [address] Specialist UROGYNECOLOGY 03/21/23 Elisa Romero NP [address] [place] [address] [place] [address] Cardiology 01/31/24 Marcus Murcia DO [address] [place] [address] [place] [address] Specialist Physiatry 03/26/24 documented as of this encounter
--- OUTSIDE RECORDS SUMMARY | 2025-02-15 12:59 | XMS_ITS | Encounter Summary ---
Author Organization [facility] Address [address] [place] [address] Care Team Providers Care Topographical Engineer Name Role Phone Wiley Thompson MD Primary Care Provider Kameron Cornejo MD Unavailable Katya Lopez NP Unavailable Unavailab Kathy Christopher MD Primary Care Prov ider Be Pacheco NP Unavailable [phone] Maycol Infante MD Unavailable Unavailable Sebastian Martinez MD Unavailable UnavailEve Blackmon MD Unavailable Elisa Romero NP Unavailable [phone] Marcus Murcia DO Unavailable Unavailable Encounter Details Date Type Department Care Team Description 04/27/2019 Release of Information Medical Records [address] [place] [id number] Abstract, Provider Social History Tobacco Use Types [...] on filedocumented in this encounter Care Teams Topographical Engineer Relationship Specialty Start Date End Date Wiley Thompson MD PCP - General Internal Medicine 06/04/14 01/20/22 Kathy Christopher MD [address] [place] [address] PCP - General Internal Medicine 01/21/22 Kameron Zuñiga MD Microbiological Laboratory Technician Cardiovascular Disease 08/04/21 Katya Lopez, IRMA Cardiology 08/04/21 01/30/24 Be Pacheco NP [address] [place] [address] Nurse Practitioner Cardiology 10/17/22 01/30/24 Maycol Infante MD [address] [place] [address] Specialist Pulmonology 10/19/22 Sebastian Martinez MD [address] [place] [address] Specialist Ophthalmology 03/21/23 Eve Juan MD [address] [place] [address] [place] [address] Specialist UROGYNECOLOGY 03/21/23 Elisa Romero NP [address] [place] [address] [place] [address] Cardiology 01/31/24 Marcus Murcia DO [address] [place] [address] [place] [address] Specialist Physiatry 03/26/24 documented as of this encounter
--- OUTSIDE RECORDS SUMMARY | 2025-02-15 12:59 | XMS_ITS | Encounter Summary ---
Author Organization [facility] Address [address] [place] [address] Care Team Providers Care Floor Layer Helper Name Role Phone Wiley Thompson MD Primary Care Provider Kameron Cornejo MD Unavailable Katya Lopez NP Unavailable Unavailab Kathy Haley MD Primary Care Prov ider Be Pacheco NP Unavailable [phone] Maycol Infante MD Unavailable Unavailable Sebastian Martinez MD Unavailable UnavailEve Blackmon MD Unavailable Elisa Romero NP Unavailable [phone] Marcus Murcia DO Unavailable Unavailable Reason for Visit * Reason Comments E-prescribe Rx Request imdur 30 mg po qd Encounter Details Date Type Department Care Team Description 01/20/2022 Refill Cardio PVCA Diag Testing [address] [facility] [address] [place], [place] [id number] Katya Lopez NP E-prescribe Rx Request (imdur [...] on filedocumented in this encounter Care Teams Floor Layer Helper Relationship Specialty Start Date End Date Wiley Thompson MD PCP - General Internal Medicine 06/04/14 01/20/22 Trina Rizo, Kathy Fried MD [address] [place] [address] PCP - General Internal Medicine 01/21/22 Kameron Zuñiga MD Bisque Ware Dipper Cardiovascular Disease 08/04/21 Katya Lopez NP Cardiology 08/04/21 01/30/24 Be Pacheco NP [address] [place] [address] Nurse Practitioner Cardiology 10/17/22 01/30/24 Maycol Infante MD [address] [place] [address] Specialist Pulmonology 10/19/22 Sebastian Martinez MD [address] [place], [place] [phone] Specialist Ophthalmology 03/21/23 Eve Juan MD [address] [place] [address] [place] [address] Specialist UROGYNECOLOGY 03/21/23 Elisa Romero NP [address] [place] [address] [place] [address] Cardiology 01/31/24 Marcus Murcia DO [address] [facility] [place] [address] Specialist Physiatry 03/26/24 documented as of this encounter
--- OUTSIDE RECORDS SUMMARY | 2025-02-15 12:59 | XMS_ITS | Encounter Summary ---
Author Organization [facility] Address [address] [place] [address] Care Team Providers Care Welding Machine Operator Resistance Name Role Phone Wiley Thompson MD Primary Care Provider Kameron Cornejo MD Unavailable Katya Lopez NP Unavailable Unavailab Kathy Haley MD Primary Care Prov ider Be Pacheco NP Unavailable [phone] Maycol Infante MD Unavailable Unavailable Sebastian Martinez MD Unavailable UnavailEve Blackmon MD Unavailable Elisa Romero NP Unavailable [phone] Marcus Murcia DO Unavailable Unavailable Encounter Details Date Type Department Care Team Description 09/28/2021 SCAN Medical Records [address] [place] [id number] Abstract, Provider Social History Tobacco Use Types [...] on filedocumented in this encounter Care Teams Welding Machine Operator Resistance Relationship Specialty Start Date End Date Wiley Thompson MD PCP - General Internal Medicine 06/04/14 01/20/22 Kathy Christopher MD [address] [place] [address] PCP - General Internal Medicine 01/21/22 Kameron Zuñiga MD Parking Meter Attendant Cardiovascular Disease 08/04/21 Katya Lopez NP Cardiology 08/04/21 01/30/24 Be Pacheco NP [address] [place] [address] Nurse Practitioner Cardiology 10/17/22 01/30/24 Maycol Infante MD [address] [place] [address] Specialist Pulmonology 10/19/22 Sebastian Martinez MD [address] [place] [address] Specialist Ophthalmology 03/21/23 Eve Juan MD [address] [place] [address] [place] [address] Specialist UROGYNECOLOGY 03/21/23 Elisa Romero NP [address] [place] [address] [place] [address] Cardiology 01/31/24 Marcus Murcia DO [address] [place] [address] [place] [address] Specialist Physiatry 03/26/24 documented as of this encounter
--- OUTSIDE RECORDS SUMMARY | 2025-02-15 12:59 | XMS_ITS | Encounter Summary ---
Author Organization [facility] Address [address] [place] [address] Care Team Providers Care Education Program Manager Name Role Phone Wiley Thompson MD Primary Care Provider Kameron Cornejo MD Unavailable Katya Lopez NP Unavailable Unavailab Kathy Haley MD Primary Care Prov ider Be Pacheco NP Unavailable [phone] Maycol Infante MD Unavailable Unavailable Sebastian Martinez MD Unavailable UnavailEve Blackmon MD Unavailable Elisa Romero NP Unavailable [phone] Marcus Murcia DO Unavailable Unavailable Encounter Details Date Type Department Care Team Description 12/03/2021 Telephone Cardio PVCA Diag Testing [address] [facility] [address] [place], [place] [phone] Kameron Zuñiga MD [address] [place] [address] [id number] Social History Tobacco Use Types Packs/Day Years [...] to review * Telephone Encounter - Ana Valenuzela C.M.A. - 12/03/2021 3:23 PM EDT Pt [...] I would notify Katya or Dr Zuñiga. Katya, You are seeing her in January. documented in this encounter Plan of Treatment Not on file documented as of this encounter Visit Diagnoses Not on filedocumented in this encounter Care Teams Education Program Manager Relationship Specialty Start Date End Date Wiley Thompson MD PCP - General Internal Medicine 06/04/14 01/20/22 Kathy Christopher MD [address] [place] [address] PCP - General Internal Medicine 01/21/22 Kameron Zuñiga MD Cnc Cutting Operator Cardiovascular Disease 08/04/21 Katya Lopez NP Cardiology 08/04/21 01/30/24 Be Pacheco NP [address] [place] [address] Nurse Practitioner Cardiology 10/17/22 01/30/24 Maycol Infante MD [address] [place] [address] Specialist Pulmonology 10/19/22 Sebastian Martinez MD [address] [place] [address] Specialist Ophthalmology 03/21/23 Eve Juan MD [address] [place] [address] [place] [address] Specialist UROGYNECOLOGY 03/21/23 Elisa Romero NP [address] [place] [address] [place] [address] Cardiology 01/31/24 Marcus Murcia DO [address] [place] [address] [place] [address] Specialist Physiatry 03/26/24 documented as of this encounter
--- OUTSIDE RECORDS SUMMARY | 2025-02-15 12:59 | XMS_ITS | Encounter Summary ---
Author Organization [facility] Address [address] [place] [address] Care Team Providers Care Track Surfacing Machine Operator Name Role Phone Kameron Zuñiga MD Unavailable Katya Lopez NP Unavailable Unavailab le Kathy Christopher MD Primary Care Prov ider Be Pacheco NP Unavailable [phone] Maycol Infante MD Unavailable Unavailable Sebastian Martinez MD Unavailable UnavailEve Blackmon MD Unavailable Elisa Romero NP Unavailable [phone] Marcus Murcia DO Unavailable Unavailable Encounter Details Date Type Department Care Team Description 01/01/2024 Financial Services Agent Report Medical Records [address] [place] [id number] Marcus Murcia DO Social History Tobacco Use [...] on filedocumented in this encounter Care Teams Track Surfacing Machine Operator Relationship Specialty Start Date End Date Kathy Christopher MD [address] [place], [place] [phone] PCP - General Internal Medicine 01/21/22 Kameron Zuñiga MD Jewel Bearing Broacher Cardiovascular Disease 08/04/21 Katya Lopez NP Cardiology 08/04/21 01/30/24 Be Pacheco NP [address] [place] [address] Nurse Practitioner Cardiology 10/17/22 01/30/24 Maycol Infante MD [address] [place] [address] Specialist Pulmonology 10/19/22 Sebastian Martinez MD [address] [place] [address] Specialist Ophthalmology 03/21/23 Eve Juan MD [address] [place] [address] [place] [address] Specialist UROGYNECOLOGY 03/21/23 Elisa Romero NP [address] [place] [address] [place] [address] Cardiology 01/31/24 Marcus Murcia DO [address] [place] [address] [place] [address] Specialist Physiatry 03/26/24 documented as of this encounter
--- OUTSIDE RECORDS SUMMARY | 2025-02-15 12:59 | XMS_ITS | Encounter Summary ---
Author Organization [facility] Address [address] [place] [address] Care Team Providers Care Thoroughbred Horse Farm Manager Name Role Phone Kameron Zuñiga MD Unavailable Katya Lopez NP Unavailable Unavailab le Kathy Christopher MD Primary Care Prov ider Be Pacheco NP Unavailable [phone] Maycol Infante MD Unavailable Unavailable Sebastian Martinez MD Unavailable UnavailEve Blackmon MD Unavailable Elisa Romero NP Unavailable [phone] Marcus Murcia DO Unavailable Unavailable Encounter Details Date Type Department Care Team Description 10/30/2023 Paper Mill Supervisor Report Medical Records [address] [place] [address] Lalitha Diego, [facility]- Social History Tobacco Use Types Packs/Day Years [...] on filedocumented in this encounter Care Teams Thoroughbred Horse Farm Manager Relationship Specialty Start Date End Date Kathy Christopher MD [address] [place] [address] [id number] PCP - General Internal Medicine 01/21/22 Kameron Zuñiga MD Bilingual Speech Language Pathologist Cardiovascular Disease 08/04/21 Katya Lopez, IRMA Cardiology 08/04/21 01/30/24 Be Pacheco NP [address] [place] [address] Nurse Practitioner Cardiology 10/17/22 01/30/24 Maycol Infante MD [address] [place] [address] Specialist Pulmonology 10/19/22 Sebastian Martinez MD [address] [place] [address] Specialist Ophthalmology 03/21/23 Eve Juan MD [address] [place] [address] [place] [address] Specialist UROGYNECOLOGY 03/21/23 Elisa Romero NP [address] [place] [address] [place] [address] Cardiology 01/31/24 Marcus Murcia DO [address] [place] [address] [place] [address] Specialist Physiatry 03/26/24 documented as of this encounter
--- OUTSIDE RECORDS SUMMARY | 2025-02-15 12:59 | XMS_ITS | Encounter Summary ---
Author Organization [facility] Address [address] [place] [address] Care Team Providers Care Electronic Tech Name Role Phone Wiley Thompson MD Primary Care Provider Kameron Cornejo MD Unavailable Katya Lopez NP Unavailable Unavailab Kathy Haley MD Primary Care Prov ider Be Pacheco NP Unavailable [phone] Maycol Infante MD Unavailable Unavailable Sebastian Martinez MD Unavailable UnavailEve Blackmon MD Unavailable Elisa Romero NP Unavailable [phone] Marcus Murcia DO Unavailable Unavailable Reason for Visit * Reason Onset Date Comments Testing 09/13/2019 DXA bone density study 1+ sits axial skel Encounter Details Date Type Department Care Team Description 09/13/[address] [facility] [address] [place] [address] [phone] Pau Shultz PA [address] [place], [place] [phone] Testing (DXA bone density study 1+ sits [...] on filedocumented in this encounter Care Teams Electronic Tech Relationship Specialty Start Date End Date Wiley Thompson MD PCP - General Internal Medicine 06/04/14 01/20/22 Kathy Christopher MD [address] [place] [address] PCP - General Internal Medicine 01/21/22 Kameron Zuñiga MD Pc Technician Cardiovascular Disease 08/04/21 Katya Lopez NP Cardiology 08/04/21 01/30/24 Be Pacheco NP [address] [place] [address] Nurse Practitioner Cardiology 10/17/22 01/30/24 Maycol Infante MD [address] [place] [address] Specialist Pulmonology 10/19/22 Sebastian Martinez MD [address] [place] [address] Specialist Ophthalmology 03/21/23 Eve Juan MD [address] [facility] [place] [address] Specialist UROGYNECOLOGY 03/21/23 Elisa Romero NP [address] [facility] [place] [address] Cardiology 01/31/24 Marcus Murcia DO [address] [place] [address] [place] [address] Specialist Physiatry 03/26/24 documented as of this encounter
--- OUTSIDE RECORDS SUMMARY | 2025-02-15 12:59 | XMS_ITS | Encounter Summary ---
Author Organization [facility] Address [address] [place] [address] Care Team Providers Care Global Account Executive Name Role Phone Kameron Zuñiga MD Unavailable Katya Lopez NP Unavailable Unavailab Kathy Haley MD Primary Care Prov ider Be Pacheco NP Unavailable [phone] Maycol Infante MD Unavailable Unavailable Sebastian Martinez MD Unavailable UnavailEve Blackmon MD Unavailable Elisa Romero NP Unavailable [phone] Marcus Murcia DO Unavailable Unavailable Encounter Details Date Type Department Care Team Description 08/21/2023 Orders Only Medical Records [address] [place] [address] [address] [facility] Social History Tobacco Use Types Packs/Day [...] OUTSIDE CT (08/03/2023) Narrative Authorizing Provider Result [facility] [place] RADIOLOGY * OUTSIDE LAB (08/03/2023) Narrative Authorizing Provider Result [facility] [place] LAB * OUTSIDE EKG (08/03/2023) Narrative Authorizing Provider Result [facility] [place] CARDIOLOGY documented in this encounter Visit Diagnoses Not on filedocumented in this encounter Care Teams Global Account Executive Relationship Specialty Start Date End Date Kathy Christopher MD [address] [place] [address] PCP - General Internal Medicine 01/21/22 Kameron Zuñiga MD Bias Machine Operator Cardiovascular Disease 08/04/21 Katya Lopez NP Cardiology 08/04/21 01/30/24 Be Pacheco NP [address] [place] [address] Nurse Practitioner Cardiology 10/17/22 01/30/24 Maycol Infante MD [address] [place] [address] Specialist Pulmonology 10/19/22 Sebastian Martinez MD [address] [place] [address] Specialist Ophthalmology 03/21/23 Eve Juan MD [address] [place] [address] [place] [address] Specialist UROGYNECOLOGY 03/21/23 Elisa Romero NP [address] [place] [address] [place] [address] Cardiology 01/31/24 Marcus Murcia DO [address] [place] [address] [place] [address] Specialist Physiatry 03/26/24 documented as of this encounter
--- OUTSIDE RECORDS SUMMARY | 2025-02-15 12:59 | XMS_ITS | Clinical Summary ---
Author Organization [facility] Address [address] [place] [address] Phone Care Team Providers Care [employer] Name Role Phone Kathy Perez MD Primary [...] by mouth 1 (one) time each day. 11/04/19 Active plecanatide (Trulance) 3 mg tablet [...] EACH FLARE 12 tablet 09/27/19 25 Active furosemide (LASIX) 20 mg tablet [...] 11 10/16/19 25 026 Active metFORMIN XR (GLUCOPHAGE-XR ) 500 mg 24 hr tablet TAKE 1 TABLET BY MOUTH EVERY DAY WITH BREAKFAST 90 tablet 2 10/17/19 25 Active lidocaine (LIDODERM) 5 % patchIndicatio ns:Neck pain,Shoulder pain, unspecified chronicity, unspecified laterality Apply [...] a day. 30 each 01/07/20 25 Active cefuroxime (CEFTIN) 250 mg tablet Take 1 tablet (250 mg total) by mouth 2 (two) times a day. for 7 days 10/01/19 25 025 Discontinued sulfamethoxazo le-trimethopri m (Bactrim) 400-80 mg per tabletIndicati ons:Recurrent UTI (urinary tract infection) Take 0.5 tablets by mouth 3 (three) times a week. 6 each 2 01/11/20 25 025 Discontinued Active Problems Problem Noted Date Diagnosed Date Osteoarthritis 04/23/2024 Class 1 obesity due to exces s calories with serious comorbidity and body mass index (BMI) of 32.0 to 32.9 in adult 04/23/2024 Mucopurulent chronic bronchitis ([facility] V24, CM S/[facility] V28) 05/24/2023 Palpitations 05/24/2023 Chronic heart failure with p reserved ejection fraction ([facility] V24, [facility] V28) 11/24/2022 Assessment & Plan [...] Chest pain 11/18/2022 CHF (congestive heart failure) (CMS/HCC V24, CMS /HCC V28) 11/18/2022 Assessment & Plan (07/30/2024 3:00 [...] disease, without long-term current use of insulin ([facility] V24, [facility] V28) 11/04/2019 Mammographic microcalcification 01/10/2019 Hearing decreased, bilateral 12/18/2018 COPD (chronic obstructive pu lmonary disease) ([facility] V24, [facility] V28) 12/10/2018 Assessment & Plan (07/30/2024 3:00 PM EST): Recent exacerbation, was evaluated in the emergency. Started on prednisone. Currently stable. Supplemental oxygen dependent 12/10/2018 Obstructive sleep apnea 11/21/2018 Overview (04/23/2024): [facility] Home Sleep Apnea Test: Date 11/18/2018; Wt 192#; BMI 33; HAYLEY 16, AI 1; HI 14; Unclassified apneas 0; Obstructive apneas 10; Central apneas 0; Mixed apneas 0; hypopneas 126; average oxygen saturation 88% (lowest 73% with saturations <88% for 5% or more of study) [facility] Polysomnogram treatment study. Date [...] kidney disease) stage 3, GFR 30-59 ml/min ([facility] V24, [facility] V28) 05/31/2017 Assessment & Plan (07/30/2024 3:00 PM EST): GFR around 50. Stable over the last year. Encouraged to avoid nephrotoxics, good control of diabetes and hypertension were discussed with the patient. Iron deficiency anemia due to chronic blood loss 08/18/2016 IBS (irritable bowel syndrome) 03/25/2016 Recurrent HSV (herpes simplex virus) 12/11/2015 Diabetes mellitus type 2 wit h neurological manifestations ([facility] V24, [facility] V28) 08/01/2015 Overview (04/23/2024): A1C [...] x1 06/2015 Coronary artery disease invo lving [place] coronary artery of [place] heart without angina pectoris 01/21/2015 Overview (04/23/2024): [...] Gastroparesis 07/17/2012 Overview (04/23/2024): Dr. Stephenson at [address] [place] [address] drive GERD (gastroesophageal reflux disease) 3 Insomnia [...] Encounters Date Type Department Care Team Description 02/11/2025 11:40 AM EDT Anesthesia Event [facility] Pain Management [address] [place] [address] Rod Gill MD 02/11/2025 11:05 AM EDT - 02/11/2025 11:59 PM EDT Hospital Encounter [facility] Xray [address] [place] [address] Pain Discharge Disposition: Home or Self Care 02/11/2025 9:42 AM EDT - 02/11/2025 11:59 PM EDT Hospital Encounter [facility] [address] [place] [address] Marcus Murcia DO Steele, Matthew G, Rod Sorto MD Radiculopathy, cervical region Discharge Disposition: Home or Self Care 01/24/2025 Telephone Adult Medicine [address] [phone] Kathy Perez MD 01/23/2025 Telephone Adult Medicine [address] [phone] Kathy Perez MD 01/23/2025 Telephone Adult Medicine [address] [phone] Ana Conte RN 01/20/2025 Telephone Adult Medicine [address] [phone] Kathy Perez MD 01/20/2025 Telephone Adult [address] [phone] Kathy Perez MD 01/06/2025 11:20 AM EDT Lab Draw [address] Recurrent UTI (urinary tract infection); Chronic kidney disease, stage 3a ([facility] [place]24, [facility] [place] V28); Renal osteodystrophy; Type 2 diabetes mellitus with diabetic chronic kidney disease ([facility] [place] V24, [facility] [place] V28) 01/06/2025 10:30 AM EDT Office Visit Adult [address] [phone] Kathy Perez MD Hospital discharge follow-up (Primary Dx); Recurrent UTI (urinary tract infection); Type 2 diabetes mellitus without complication, without long-term current use of insulin ([facility] [place] V24, [facility] [place] V28); 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 Telephone Urogynecology [address] [phone] Eve Juan MD 12/31/2024 Telephone Urogynecology [address] [place] [phone] Rachael Huerta MA 12/31/2024 Telephone Adult Medicine [address] [phone] Quinten Acosta LPN 12/30/2024 Telephone Adult [address] [phone] Kathy Perez MD 12/23/2024 Telephone Urogynecology [address] [place] [phone] Jossie Agudelo MA 12/18/2024 11:30 AM EDT Office Visit Urogynecology [address] [phone] Eve Juan MD Dysuria (Primary Dx); OAB (overactive bladder) 11/28/2024 Telephone Adult Medicine [address] [phone] Kathy Perez MD 11/26/2024 Telephone Urogynecology [address] [phone] Eve Juan MD from Last 3 Months Immunizations Name [...] PROCEDURE:TUBAL LIGATION OTHER SURGICAL HISTORY 2007 PROCEDURE: DE CORRECTION ANNAERTOE; COMMENT: FOOT SURGERY Left PROCEDURE: HISTORICAL FOOT SURGERY; COMMENT: 18 y/o bunionectomy UPPER GASTROINTESTINAL ENDOSCOPY 03/22/2012 PROCEDURE: DE UPPER GI ENDOSCOPY PERFORMED; COMMENT: Normal study UPPER GASTROINTESTINAL ENDOSCOPY 11/27/2015 PROCEDURE: DE UPPER GI ENDOSCOPY PERFORMED; COMMENT: Gastritis and polyp. Normal Esophagus and duodenum. UPPER GASTROINTESTINAL ENDOSCOPY 2012 PROCEDURE: DE UPPER GI ENDOSCOPY PERFORMED; COMMENT: FOR GERD BLADDER SUSPENSION 05/29/2018 PROCEDURE: HISTORICAL BLADDER SUSPENSION CYSTOSCOPY 03/18/2019 PROCEDURE: HISTORICAL CYSTOSCOPY; COMMENT: Normal COLONOSCOPY 06/2005 PROCEDURE: HISTORICAL COLONOSCOPY; COMMENT: tubular adenoma COLONOSCOPY 06/2010 PROCEDURE: HISTORICAL COLONOSCOPY; COMMENT: negative COLONOSCOPY 12/16/2015 PROCEDURE: HISTORICAL COLONOSCOPY; COMMENT: tubular adenoma CARDIAC CATHETERIZATION 09/26/2014 PROCEDURE: HISTORICAL CARDIAC CATH; COMMENT: RCA stent Dr David REYNAGA UPPER GASTROINTESTINAL ENDOSCOPY 08/18/2004 PROCEDURE: DE UPPER GI ENDOSCOPY PERFORMED FOOT SURGERY 12/2013 Left PROCEDURE: HISTORICAL FOOT SURGERY; COMMENT: for second toe arthroplasty SHOULDER SURGERY Left PROCEDURE: HISTORICAL SHOULDER SURGERY; COMMENT: Arthroscopy with Dr. Berg KNEE SURGERY Left PROCEDURE: HISTORICAL KNEE SURGERY; COMMENT: Arthroscopy Medical History Medical History Date Comments Hypertension DX:Hypertension COPD (chronic obstructive pu lmonary disease) ([facility] V24, [facility] V28) DX:COPD (chronic o bstructive pulmonary disease) ([facility]) Heart failure ([facility] V24, [facility] V28) DX:Heart failure ([facility]) Diabetes mellitus ([facility] V 24, [facility] V28) DX:Diabetes mellitus ([facility]) Asthma 07/17/2012 DX:Asthma HTN (hypertension) [...] mellitus type 2 wit h neurological manifestations ([facility] V24, [facility]/H[facility] V28) 08/01/2015 DX:Diabetes mellitus type 2 with neurological manifestations (HCC); COMMENT: A1C 6.5 09/28 transfer records Gastric ulcer, acute 11/2015 DX:Gastric ulcer, acute; COMMENT: iron related gastritis Tubular adenoma of colon 05/20/2015 DX:Tubu lar adenoma of colon; COMMENT: X1 on CN 06/2005 / neg 06/2010/ x1 06/2015 Syncope DX:Syncope Cervical radiculopathy Shortness of breath HL (hearing loss) Joint pain Family History Medical History Relation Name Comments [...] your loved ones. For example, child care supervisor or elderly care for an older adult? [...] Mass Index 30.9 02/11/2025 9:55 AM EDT Plan of Treatment Upcoming Encounters Date Type Department Care Team (Late st Contact Info) Description 03/04/2025 1:15 PM EDT Office Visit Adult Medicine [facility] [address] [place] [address] Lizzie Pisano PA [address] [place] [address] Health Maintenance Due Date Last Done Comments [...] exists Medicare Annual Wellness Visit 03/26/2025 03/26/2024 Social Influencers of Health Screening 10/03/2025 10/03/2024 Diabetes: Annual Urine Albumin-Creatinine Ratio (uACR) 01/06/2026 01/06/2025, 01/06/2025, 09/23/2024, Additional history exists Diabetes: Annual GFR (Glomerular Filtration Rate) 01/06/2026 01/06/2025, 09/23/2024, 08/26/2024, Additional history exists Hypertension/CHF/CAD Annual BMP Blood Test 01/06/2026 01/06/2025, 09/23/2024, 08/26/2024, Additional history exists Falls Risk Assessment 02/11/2026 02/11/2025, 024 Cholesterol Screening (Lipid Panel) 08/26/2029 08/26/2024, [...] BLOOD Routine 02/11/2025 9: 52 AM EDT [place] URINE CULTURE TUBE Routine 01/06/2025 11:29 [...] diabetes mellitus with diabetic chronic kidney disease (CMS/[facility] V24, [facility] V28) PROTEIN AND CREATININE WITH RATIO, URINE Routine 01/06/2025 11:29 AM EDT Chronic kidney disease, stage 3a ([facility] V24, [facility] V28) Renal osteodystrophy Type 2 diabetes mellitus with diabetic chronic kidney disease ([facility] V24, [facility] V28) URINALYSIS WITH REFLEX MICROSCOPIC AND CULTURE [...] Diabetes mellitus type 2 with neurological manifestations ([facility] V24, [facility] V28) LIPID PANEL WITH REFLEX TO DIRECT LDL Routine 08/26/2024 11:03 AM EDT Coronary artery disease involving lower [place] coronary artery of [place] heart without angina pectoris Hyperlipidemia, unspecified hyperlipidemia type DEPRESSION SCREENING Routine 03/26/2024 FALLS RISK ASSESSMENT Routine 03/26/2024 DIABETES FOOT EXAM Routine 12/04/2023 DIABETES EYE EXAM Routine 11/28/2023 from Last 3 Months or Most Recently Relevant to Health Maintenance Results * POCT Glucose, blood (02/11/2025 9:52 AM EDT) [facility] Glucose POCT 94 70 - 100 mg/dL 02/11/2025 9:53 AM EDT [facility] Blood Capillary blood specimen / Unknown 02/11/2025 9:52 AM EDT 02/11/2025 9:54 AM EDT us Rod Gill MD LAB POINT OF CARE TE ST DOCKED DEVICE UNSOLICITED RESULTS Final Result [facility] [address] [place] [address], [place] [phone] * (ABNORMAL) Urinalysis with reflex microscopic and culture (01/06/2025 11:29 AM EDT) [facility] Specific [place] Urine 1.016 1.003 - 1.030 LAB URINALYSIS - AUTOMATED METHOD 01/06/2025 3:24 PM [facility] pH, Urine 6.0 5.0 - 8.0 pH LAB URINALYSIS - AUTOMATED METHOD 01/06/2025 3:24 PM [facility] Leukocytes, Urine Large(A) Negative LAB URINALYSIS - AUTOMATED METHOD 01/06/2025 3:24 PM [facility] Nitrite, Urine Negative Negative LAB URINALYSIS - AUTOMATED METHOD 01/06/2025 3:24 PM [facility] Protein, Urine 30(A) <=Trace mg/dL LAB URINALYSIS - AUTOMATED METHOD 01/06/2025 3:24 PM [facility] Glucose, Urine Negative Negative mg/dL LAB URINALYSIS - AUTOMATED METHOD 01/06/2025 3:24 PM [facility] Ketones, Urine Trace(A) Negative mg/dL LAB URINALYSIS - AUTOMATED METHOD 01/06/2025 3:24 PM [facility] Urobilinogen, Urine 1.0 0.2 - 1.0 mg/dL LAB URINALYSIS - AUTOMATED METHOD 01/06/2025 3:24 PM EDT [facility] Bilirubin, Urine Negative Negative LAB URINALYSIS - AUTOMATED METHOD 01/06/2025 3:24 PM EDT [facility] Blood, Urine Trace(A) Negative LAB URINALYSIS - AUTOMATED METHOD 01/06/2025 3:24 PM T [facility] RBC, Urine 2.5 0 - 4 /HPF LAB URINALYSIS - AUTOMATED METHOD 01/06/2025 3:24 PM T [facility] WBC, Urine 184.2(H) 0 - 4 /HPF LAB URINALYSIS - AUTOMATED METHOD 01/06/2025 3:24 PM [facility] Squamous Epithelial, Urine 7 0 - 60 /LPF LAB URINALYSIS - AUTOMATED METHOD 01/06/2025 3:24 PM [facility] Bacteria, Urine Negative Negative /HPF LAB URINALYSIS - AUTOMATED METHOD 01/06/2025 3:24 PM [facility] Hyaline Casts, Urine 0.4 0 - 3 /LPF LAB URINALYSIS - AUTOMATED METHOD 01/06/2025 3:24 PM [facility] Urine Urine specimen obtained by clean catch procedure / Unknown Non-blood Collection / Unknown 01/06/2025 11:29 AM EDT 01/06/2025 11:29 AM EDT us Kathy Perez MD LAB URINE ORDERABL ES Final Result [facility] [address] [place] [address], * [place] urine culture tube (01/06/2025 11:29 AM EDT) Extra Tube Hold for add-ons. 01/06/2025 4:01 PM [facility] Comment:Auto resulted. Urine Urine specimen obtained by clean catch procedure / Unknown Non-blood Collection / Unknown 01/06/2025 11:29 AM EDT 01/06/2025 11:29 AM EDT us Kathy Perez MD LAB URINE ORDERABL ES Final Result [facility] [address] [place] [address], [place] [phone] * (ABNORMAL) CBC auto differential (01/06/2025 11:29 AM EDT) WBC 9.1 4.8 - 10.8 K/mcL LAB HEMETOLOGY METHOD 01/06/2025 4:06 PM [facility] RBC 3.70(L) 3.80 - 4.80 M/mcL LAB HEMETOLOGY METHOD 01/06/2025 4:06 PM [facility] Hemoglobin 11.0(L) 11.5 - 16.0 g/dL LAB HEMETOLOGY METHOD 01/06/2025 4:06 PM [facility] Hematocrit 35.0 35.0 - 47.0 % LAB HEMETOLOGY METHOD 01/06/2025 4:06 PM [facility] MCV 94.3 79.0 - 98.0 FL LAB HEMETOLOGY METHOD 01/06/2025 4:06 PM [facility] MCH 29.6 27.0 - 32.0 pcg LAB HEMETOLOGY METHOD 01/06/2025 4:06 PM [facility] MCHC 31.4(L) 32.0 - 37.0 g/dL LAB HEMETOLOGY METHOD 01/06/2025 4:06 PM [facility] RDW 16.1(H) 11.0 - 15.0 % LAB HEMETOLOGY METHOD 01/06/2025 4:06 PM [facility] Platelets 339 130 - 400 K/mcL LAB HEMETOLOGY METHOD 01/06/2025 4:06 PM [facility] MPV 11.0 7.0 - 11.0 FL LAB HEMETOLOGY METHOD 01/06/2025 4:06 PM [facility] NRBC 0.2 <1.0 % LAB HEMETOLOGY METHOD 01/06/2025 4:06 PM [facility] NRBC Absolute 0.02 <0.10 K/mcL LAB HEMETOLOGY METHOD 01/06/2025 4:06 PM [facility] Neutrophils Relative 56.5 % LAB HEMETOLOGY METHOD 01/06/2025 4:06 PM [facility] Lymphocytes Relative 29.6 % LAB HEMETOLOGY METHOD 01/06/2025 4:06 PM [facility] Monocytes Relative 11.1 % LAB HEMETOLOGY METHOD 01/06/2025 4:06 PM [facility] Eosinophils Relative 1.7 % LAB HEMETOLOGY METHOD 01/06/2025 4:06 PM [facility] Basophils Relative 0.3 % LAB HEMETOLOGY METHOD 01/06/2025 4:06 PM [facility] Immature Granulocytes Relative 0.8 % LAB HEMETOLOGY METHOD 01/06/2025 4:06 PM [facility] Neutrophils Absolute 5.12 1.50 - 7.00 K/mcL LAB HEMETOLOGY METHOD 01/06/2025 4:06 PM [facility] Lymphocytes Absolute 2.68 1.00 - 5.00 K/mcL LAB HEMETOLOGY METHOD 01/06/2025 4:06 PM [facility] Monocytes Absolute 1.01(H) 0.20 - 1.00 K/mcL LAB HEMETOLOGY METHOD 01/06/2025 4:06 PM EDT [facility] Eosinophils Absolute 0.15 0.00 - 0.50 K/[facility] LAB HEMETOLOGY METHOD 01/06/2025 4:06 PM EDT [facility] Basophils Absolute 0.03 0.00 - 0.20 K/[facility] LAB HEMETOLOGY METHOD 01/06/2025 4:06 PM EDT [facility] Immature Granulocytes Absolute 0.07(H) 0.00 - 0.03 /[facility] LAB HEMETOLOGY METHOD 01/06/2025 4:06 PM EDT [facility] Blood Venous blood specimen / Unknown Venipuncture / Unknown 01/06/2025 11:29 AM EDT 01/06/2025 11:29 AM EDT us Kathy Perez MD LAB BLOOD ORDERABL ES Final Result [facility] [address] [place] [address], [place] [phone] * (ABNORMAL) Protein and creatinine with ratio, urine (01/06/2025 11:29 AM EDT) Protein, Urine 30 mg/dL LAB CHEMISTRY METHOD 01/06/2025 4:55 PM EDT [facility] Prot/Creat, Ur 0.31(H) <=0.20 mg/mg creat LAB CHEMISTRY METHOD 01/06/2025 4:55 PM EDT [facility] Creatinine, Urine 96.0 mg/dL LAB CHEMISTRY METHOD 01/06/2025 4:55 PM EDT [facility] Urine Urine specimen obtained by clean catch procedure / Unknown Non-blood Collection / Unknown 01/06/2025 11:29 AM EDT 01/06/2025 11:29 AM EDT us Everton Riddle MD LAB URINE ORDERABLES Final Re sult Performing Organization Address [facility] Co de Phone Number [facility] [address] [place] [address], [place] [phone] * (ABNORMAL) Microalbumin creatinine urine ratio (01/06/2025 11:29 AM EDT) Creatinine, Urine 96.0 mg/dL LAB CHEMISTRY METHOD 01/06/2025 5:02 PM EDT [facility] Microalb, Ur 87.3(H) 0.0 - 29.0 mg/L LAB CHEMISTRY METHOD 01/06/2025 5:02 PM EDT [facility] Microalb/Crea t Ratio 91(H) <30 mg/g creat LAB CHEMISTRY METHOD 01/06/2025 5:02 PM EDT [facility] Urine Urine specimen obtained by clean catch procedure / Unknown Non-blood Collection / Unknown 01/06/2025 11:29 AM EDT 01/06/2025 11:29 AM EDT Everton Riddle MD LAB URINE ORDERABLES Final Re sult Performing Organization Address [facility] de Phone Number [facility] [address] [place] [address], [place] [phone] * Culture urine (01/06/2025 11:29 AM EDT) Only the most recent of3 resultswithin the time period is included. Culture, Urine No growth 01/07/2025 10:14 AM EDT [facility] Urine Urine specimen obtained by clean catch procedure / Unknown Non-blood Collection / Unknown 01/06/2025 11:29 AM EDT 01/06/2025 3:24 PM EDT Kathy Perez MD LAB MICROBIOLOGY - GENERAL ORDERABLES Final Result Performing Organization Address City/[facility] Co de Phone Number [facility] [address] [place] [address], [place] [phone] * (ABNORMAL) Renal function panel (01/06/2025 11:29 AM EDT) Sodium 141 133 - 145 mmol/L LAB CHEMISTRY METHOD 01/06/2025 4:52 PM EDT [facility] Potassium 4.4 3.5 - 5.5 mmol/L LAB CHEMISTRY METHOD 01/06/2025 4:52 PM [facility] Chloride 106 96 - 110 mmol/L LAB CHEMISTRY METHOD 01/06/2025 4:52 PM [facility] CO2 30 21 - 32 mmol/L LAB CHEMISTRY METHOD 01/06/2025 4:52 PM [facility] Anion Gap 5 3 - 11 LAB CHEMISTRY METHOD 01/06/2025 4:52 PM [facility] Glucose 99 70 - 100 mg/dL LAB CHEMISTRY METHOD 01/06/2025 4:52 PM [facility] BUN 13 5 - 25 mg/dL LAB CHEMISTRY METHOD 01/06/2025 4:52 PM [facility] Creatinine 0.98 0.50 - 1.10 mg/dL LAB CHEMISTRY METHOD 01/06/2025 4:52 PM [facility] eGFR 58(L) >=60 mL/min/1. 73m2 LAB CHEMISTRY METHOD 01/06/2025 4:52 PM [facility] Comment:Calculation based on the Chronic Kidney Disease Epidemiology Collaboration (CKD-EPI) equation refit without adjustment for race. BUN/Creatinine Ratio 13.3 LAB CHEMISTRY METHOD 01/06/2025 4:52 PM [facility] Albumin 3.4 3.2 - 5.0 g/dL LAB CHEMISTRY METHOD 01/06/2025 4:52 PM [facility] Calcium 9.3 8.5 - 10.5 mg/dL LAB CHEMISTRY METHOD 01/06/2025 4:52 PM EDT [facility] Phosphorus 4.0 2.5 - 4.5 mg/dL LAB CHEMISTRY METHOD 01/06/2025 4:52 PM T [facility] Blood Venous blood specimen / Unknown Venipuncture / Unknown 01/06/2025 11:29 AM EDT 01/06/2025 11:29 AM EDT us Everton Riddle MD LAB BLOOD ORDERABLES Final Re sult [facility] [address] [place] [address], [place] [phone] * Lipid panel with reflex to direct LDL (08/26/2024 11:03 AM EDT) Cholesterol 141 0 - 200 mg/dL LAB CHEMISTRY METHOD 08/26/2024 2:15 PM EDT [facility] Triglycerides 117 0 - 150 mg/dL LAB CHEMISTRY METHOD 08/26/2024 2:15 PM T [facility] HDL 55 >=40 mg/dL LAB CHEMISTRY METHOD 08/26/2024 2:15 PM [facility] LDL Calculated 63 0 - 100 mg/dL LAB CHEMISTRY METHOD 08/26/2024 2:15 PM T [facility] VLDL Cholesterol Gus 23.4 mg/dL LAB CHEMISTRY METHOD 08/26/2024 2:15 PM T [facility] Non HDL Chol. (LDL+VLDL) 86 <145 mg/dL LAB CHEMISTRY METHOD 08/26/2024 2:15 PM EDT [facility] Chol/HDL Ratio 2.6 0.0 - 4.4 LAB CHEMISTRY METHOD 08/26/2024 2:15 PM T [facility] Blood Venous blood specimen / Unknown Venipuncture / Unknown 08/26/2024 11:03 AM EDT 08/26/2024 11:03 AM EDT Elisa Romero NP LAB BLOOD ORDERABLES Final Result [facility] [address] [place] [address], [place] [phone] * Hemoglobin A1c (08/26/2024 11:03 AM EDT) [facility] Hemoglobin A1C 6.4 <6.5 % LAB CHEMISTRY METHOD 08/26/2024 1:50 PM EDT [facility] Mean Bld Glu Estim. 137 mg/dL LAB CHEMISTRY METHOD 08/26/2024 1:50 PM EDT [facility] Blood Venous blood specimen / Unknown Venipuncture / Unknown 08/26/2024 11:03 AM EDT 08/26/2024 11:03 AM EDT Kathy Perez MD LAB BLOOD ORDERABL ES Final Result [facility] [address] [place] [address], [place] [phone] * Falls Risk Assessment (03/26/2024) [facility] Falls Risk Assessment Abstracted Historical Provider HEALTH MAINTENANCE Final Result * Depression Screening (03/26/2024) [facility] Depression Screening Abstracted Historical Provider HEALTH MAINTENANCE Final Result * Diabetes Foot Exam (12/04/2023) [facility] Diabetes: Annual Foot Exam Abstracted Historical Provider HEALTH MAINTENANCE Final Result * Diabetes Eye Exam (11/28/2023) [facility] Diabetes: Annual Retina Eye Exam Abstracted Comment:External Completion of test per patient (Patient reports normal results) us Historical Provider HEALTH MAINTENANCE Final Result from Last 3 Months or Most Recently Relevant to Health Maintenance Insurance [employer] Member Subscriber Plan / Payer (Ef fective 2012-Present) Name:Shea Ramirez Relation to Subscriber:Self Name:Shea Ramirez Payer ID:[id number] Group ID:[id number] Type:Not on file Address: [place] [address] [id number] Care Teams [employer] U[employer] Relationship Specialty Start Date End Date Kathy Perez MD [address] [place] [address] PCP - General Internal Medicine 07/22/24
--- OUTSIDE RECORDS SUMMARY | 2025-02-15 12:59 | XMS_ITS | Encounter Summary ---
Author Organization [facility] Address [address] [place] [address] Care Team Providers Care Surtass Analyst Name Role Phone Wiley Thompson MD Primary Care Provider Kameron Cornejo MD Unavailable Katya Lopez NP Unavailable Unavailab Kathy Haley MD Primary Care Prov ider Be Pacheco NP Unavailable [phone] Maycol Infante MD Unavailable Unavailable Sebastian Martinez MD Unavailable UnavailEve Blackmon MD Unavailable Elisa Romero NP Unavailable [phone] Marcus Murcia DO Unavailable Unavailable Encounter Details Date Type Department Care Team Description 02/12/2019 Jewelry Facer Report Medical Records [address] [place] [address] Matti Bansal Social History Tobacco Use Types [...] on filedocumented in this encounter Care Teams Surtass Analyst Relationship Specialty Start Date End Date Wiley Thompson MD PCP - General Internal Medicine 06/04/14 01/20/22 Kathy Christopher MD [address] [place] [address] PCP - General Internal Medicine 01/21/22 Kameron Zuñiga MD Chain Repairer Cardiovascular Disease 08/04/21 Katya Lopez NP Cardiology 08/04/21 01/30/24 Be Pacheco NP [address] [place] [address] 06903 Nurse Practitioner Cardiology 10/17/22 01/30/24 Maycol Infante MD [address] [place] [address] 14920 Specialist Pulmonology 10/19/22 Sebastian Martinez MD [address] [place] [address] 07396 Specialist Ophthalmology 03/21/23 Eve Juan MD [address] [place] [address] [place] [address] Specialist UROGYNECOLOGY 03/21/23 Elisa Romero NP [address] [place] [address] [place] [address] Cardiology 01/31/24 Marcus Murcia DO [address] [place] [address] [place] [address] Specialist Physiatry 03/26/24 documented as of this encounter
--- OUTSIDE RECORDS SUMMARY | 2025-02-15 12:59 | XMS_ITS | Encounter Summary ---
Author Organization [facility] Address [address] [place] [address] Care Team Providers Care Capacity Planning Analyst Name Role Phone Wiley Thompson MD Primary Care Provider Kameron Cornejo MD Unavailable Katya Lopez NP Unavailable Unavailab Kathy Christopher MD Primary Care Prov ider Be Pacheco NP Unavailable [phone] Maycol Infante MD Unavailable Unavailable Sebastian Martinez MD Unavailable UnavailEve Blackmon MD Unavailable Elisa Romero NP Unavailable [phone] Marcus Murcia DO Unavailable Unavailable Encounter Details Date Type Department Care Team Description 12/29/2017 Herpetologist Report Medical Records [address] [place] [address] Abstract, Provider Social History Tobacco Use Types [...] on filedocumented in this encounter Care Teams Capacity Planning Analyst Relationship Specialty Start Date End Date Wiley Thompson MD PCP - General Internal Medicine 06/04/14 01/20/22 Kathy Christopher MD [address] [place] [address] 20463 PCP - General Internal Medicine 01/21/22 Kameron Zuñiga MD Medical Lab Director Cardiovascular Disease 08/04/21 Katya Lopez NP Cardiology 08/04/21 01/30/24 Be Pacheco NP [address] [place] [address] 45778 Nurse Practitioner Cardiology 10/17/22 01/30/24 Maycol Infante MD [address] [place] [address] 61875 Specialist Pulmonology 10/19/22 Sebastian Martinez MD [address] [place] [address] 36509 Specialist Ophthalmology 03/21/23 Eve Juan MD [address] [place] [address] [place] [address] Specialist UROGYNECOLOGY 03/21/23 Elisa Romero NP [address] [place] [address] [place] [address] Cardiology 01/31/24 Marcus Murcia DO [address] [place] [address] [place] [address] Specialist Physiatry 03/26/24 documented as of this encounter
--- OUTSIDE RECORDS SUMMARY | 2025-02-15 12:59 | XMS_ITS | Encounter Summary ---
Author Organization [facility] Address [address] [place] [address] Care Team Providers Care Retail Account Specialist Name Role Phone Wiley Thompson MD Primary Care Provider Kameron Cornejo MD Unavailable Katya Lopez NP Unavailable Unavailab Kathy Haley MD Primary Care Prov ider Be Pacheco NP Unavailable [phone] Maycol Infante MD Unavailable Unavailable Sebastian Maritnez MD Unavailable UnavailEve Blackmon MD Unavailable Elisa Romero NP Unavailable [phone] Marcus Murcia DO Unavailable Unavailable Encounter Details Date Type Department Care Team Description 09/02/2021 Coal Shoveler Report Medical Records [address] [place] [address] Maycol Infante MD Social History Tobacco Use [...] filedocumented in this encounter Care Teams Retail Account Specialist Relationship Specialty Start Date End Date Wiley Thompson MD PCP - General Internal Medicine 06/04/14 01/20/22 Kathy Christopher MD [address] [place] [address] 19245 PCP - General Internal Medicine 01/21/22 Kameron Zuñiga MD Plastic And Reconstructive Surgeon Cardiovascular Disease 08/04/21 Katya Lopez NP Cardiology 08/04/21 01/30/24 Be Pacheco NP [address] [place] [address] 28005 Nurse Practitioner Cardiology 10/17/22 01/30/24 Maycol Infante MD [address] [place] [address] 88745 Specialist Pulmonology 10/19/22 Sebastian Martinez MD [address] [place] [address] 25267 Specialist Ophthalmology 03/21/23 Eve Juan MD [address] [place] [address] [place] [address] Specialist UROGYNECOLOGY 03/21/23 Elisa Romero NP [address] [place] [address] [place] [address] Cardiology 01/31/24 Marcus Murcia DO [address] [place] [address] [place] [address] Specialist Physiatry 03/26/24 documented as of this encounter
--- OUTSIDE RECORDS SUMMARY | 2025-02-15 12:59 | XMS_ITS | Encounter Summary ---
Author Organization [facility] Address [address] [place] [address] Care Team Providers Care Forklift Supervisor Name Role Phone Wiley Thompson MD Primary Care Provider Kameron Cornejo MD Unavailable Katya Lopez NP Unavailable Unavailab Kathy Haley MD Primary Care Prov ider Be Pacheco NP Unavailable [phone] Maycol Infante MD Unavailable Unavailable Sebastian Martinez MD Unavailable UnavailEve Blackmon MD Unavailable Elisa Romero NP Unavailable [phone] Marcus Murcia DO Unavailable Unavailable Reason for Visit * Reason Onset Date Comments pain, chest 02/15/2017 Encounter Details Date Type Department Care Team Description 02/15/2017 Telephone Adult Medicine [address] [address] Wiley Thompson MD pain, chest Social History [...] to ER for eval- will go to [place] [facility]. * Telephone Encounter - Marti Doris [...] had these symptoms?: PCP: Wiley Thompson Payor: [facility] M[facility] / Plan: [employer] $0 [place] [id number] / Product Type: HMO [id number] documented in this encounter Plan of Treatment Not on file documented as of this encounter Visit Diagnoses Not on filedocumented in this encounter Care Teams Forklift Supervisor Relationship Specialty Start Date End Date Wiley Thompson MD PCP - General Internal Medicine 06/04/14 01/20/22 Kathy Christopher MD [address] [place] [address] PCP - General Internal Medicine 01/21/22 Kameron Zuñiga MD Shield Cleaner Cardiovascular Disease 08/04/21 Katya Lopez NP Cardiology 08/04/21 01/30/24 Be Pacheco NP [address] [place] [address] [phone] Nurse Practitioner Cardiology 10/17/22 01/30/24 Maycol Infante MD [address] [place] [address] 70384 Specialist Pulmonology 10/19/22 Sebastian Martinez MD [address] [place] [address] 36616 Specialist Ophthalmology 03/21/23 Eve Juan MD [address] [place] [address] [place] [address] Specialist UROGYNECOLOGY 03/21/23 Elisa Romero NP [address] [place] [address] [place] [address] Cardiology 01/31/24 Marcus Murcia DO [address] [place] [address] [place] [address] Specialist Physiatry 03/26/24 documented as of this encounter
--- OUTSIDE RECORDS SUMMARY | 2025-02-15 12:59 | XMS_ITS | Clinical Summary ---
Author Organization [facility] Address [address] [place] [address] Care Team Providers Care Raimann Machine Operator Name Role Phone Pito Thompson MD Primary Care Provider [phone] Allergies No known active allergies Medications aspirin enteric coated (ECOTRIN LOW STRENGTH) 81 MG EC tabletIndication s:Coronary artery disease involving [place] heart, unspecified vessel or lesion type, unspecified [...] Health Maintenance Due Date Last Done Comments Advance Care Planning 1944 DTaP/Tdap/Td Vaccines (1 - Tdap) 10/08/1963 Pneumococcal Vaccines 50+ (1 of 1 - PCV) 1994 Zoster (Shingles) Vaccine (1 of 2) 1994 DXA Bone Density (Females,Ag es 65 and older) 2009 RSV Vaccine 60 years and old er and Patients (1 - 1-dose 75+ series) 10/08/2019 COVID-19 Vaccine ( - 2023-2 5 season) 2024 Influenza Vaccine 01/17/2025 Hepatitis B Vaccines Aged Out No long er eligible based on patient's age to complete this topic [place] [facility] [place] Advance Directives * Full Code (Latest Code Status on File) Date Activated Date Inactivated Comments 07/24/2021 9:24 PM Care Teams Raimann Machine Operator Relationship Specialty Start Date End Date Pito Thompson MD [address] [place] [address] PCP - General 07/25/21
--- OUTSIDE RECORDS SUMMARY | 2025-02-15 12:59 | XMS_ITS | Encounter Summary ---
Author Organization [facility] Address [address] [place] [address] Care Team Providers Care Figure Clerk Name Role Phone Kameron Zuñiga MD Unavailable Katya Lopez NP Unavailable Unavailab Kathy Haley MD Primary Care Prov ider Be Pacheco NP Unavailable [phone] Maycol Infante MD Unavailable Unavailable Sebastian Martinez MD Unavailable UnavailEve Blackmon MD Unavailable Elisa Romero NP Unavailable [phone] Marcus Murcia DO Unavailable Unavailable Encounter Details Date Type Department Care Team Description 08/17/2023 Orders Only Medical Records [address] [place] [address] Tyson Hunter Social History Tobacco Use Types [...] on filedocumented in this encounter Care Teams Figure Clerk Relationship Specialty Start Date End Date Kathy Christopher MD [address] [place] [address] 48867 PCP - General Internal Medicine 01/21/22 Kameron Zuñiga MD Thread Singer Cardiovascular Disease 08/04/21 Katya Lopez NP Cardiology 08/04/21 01/30/24 Be Pacheco NP [address] [place] [address] 96216 Nurse Practitioner Cardiology 10/17/22 01/30/24 Maycol Infante MD [address] [place] [address] 39145 Specialist Pulmonology 10/19/22 Sebastian Martinez MD [address] [place] [address] 55500 Specialist Ophthalmology 03/21/23 Eve Juan MD [address] [place] [address] [place] [address] Specialist UROGYNECOLOGY 03/21/23 Elisa Romero NP [address] [place] [address] [place] [address] Cardiology 01/31/24 Marcus Murcia DO [address] [place] [address] [place] [address] Specialist Physiatry 03/26/24 documented as of this encounter
--- OUTSIDE RECORDS SUMMARY | 2025-02-15 12:59 | XMS_ITS | Encounter Summary ---
Author Organization [facility] Address [address] [place] [address] Care Team Providers Care Broadcast Field Supervisor Name Role Phone Wiley Thompson MD Primary Care Provider Kameron Cornejo MD Unavailable Katya Lopez NP Unavailable Unavailab Kathy Haley MD Primary Care Prov ider Be Pacheco NP Unavailable [phone] Maycol Infante MD Unavailable Unavailable Sebastian Martinez MD Unavailable UnavailEve Blackmon MD Unavailable Elisa Romero NP Unavailable Marcus Murcia DO Unavailable Unavailable Reason for Visit * Reason Onset Date Comments Faxed Refill 05/01/2017 Encounter Details Date Type Department Care Team Description 05/01/2017 Refill Adult Medicine [address] [address] Wiley Thompson MD Faxed Refill Social History [...] Patients current insurance carrier is: Payor: [facility] [place] / Plan: [facility] [place] [id number] / Product Type: HMO [id number] documented in this encounter Plan of Treatment Not on file documented as of this encounter Visit Diagnoses Diagnosis CAD (coronary artery disease), [place] coronary artery Coronary atherosclerosis of [place] coronary artery documented in this encounter Care Teams Broadcast Field Supervisor Relationship Specialty Start Date End Date Wiley Thompson MD PCP - General Internal Medicine 06/04/14 01/20/22 Trina Rizo, Kathy Fried MD [address] [place] [address] PCP - General Internal Medicine 01/21/22 Kameron Zuñiga MD Mixer Slagman Cardiovascular Disease 08/04/21 Katya Lopez NP Cardiology 08/04/21 01/30/24 Be Pacheco NP [address] [place] [address] Nurse Practitioner Cardiology 10/17/22 01/30/24 Maycol Infante MD [address] [place] [address] 26728 Specialist Pulmonology 10/19/22 Sebastian Martinez MD [address] [place] [address] Specialist Ophthalmology 03/21/23 Eve Juan MD [address] [place] [address] [place] [address] Specialist UROGYNECOLOGY 03/21/23 Elisa Romero NP [address] [place] [address] [place] [address] Cardiology 01/31/24 Marcus Murcia DO [address] [place] [address] [place] [address] Specialist Physiatry 03/26/24 documented as of this encounter
--- OUTSIDE RECORDS SUMMARY | 2025-02-15 12:59 | XMS_ITS | Encounter Summary ---
Author Organization [facility] Address [address] [place] [address] Care Team Providers Care Power Station Operator Name Role Phone Kameron Zuñiga MD Unavailable Katya Lopez NP Unavailable Unavailab Kathy Haley MD Primary Care Prov ider Be Pacheco NP Unavailable [phone] Maycol Infante MD Unavailable Unavailable Sebastian Martinez MD Unavailable UnavailEve Blackmon MD Unavailable Elisa Romero NP Unavailable [phone] Marcus Murcia DO Unavailable Unavailable Encounter Details Date Type Department Care Team Description 2023 Orders Only Medical Records [address] [place] [address] Negro [place] PA-C Social History Tobacco Use [...] filedocumented in this encounter Care Teams Power Station Operator Relationship Specialty Start Date End Date Kathy Christopher MD [address] [place] [address]194 PCP - General Internal Medicine 01/21/22 Kameron Zuñiga MD Saturator Operator Cardiovascular Disease 08/04/21 Katya Lopez NP Cardiology 08/04/21 01/30/24 Be Pacheco NP [address] [place] [address] 13876 Nurse Practitioner Cardiology 10/17/22 01/30/24 Maycol Infante MD [address] [place] [address] 82746 Specialist Pulmonology 10/19/22 Sebastian Martinez MD [address] [place] [address] 92657 Specialist Ophthalmology 03/21/23 Eve Juan MD [address] [place] [address] [place] [address] Specialist UROGYNECOLOGY 03/21/23 Elisa Romero NP [address] [place] [address] [place] [address] Cardiology 01/31/24 Marcus Murcia DO [address] [place] [address] [place] [address] Specialist Physiatry 03/26/24 documented as of this encounter
--- OUTSIDE RECORDS SUMMARY | 2025-02-15 12:59 | XMS_ITS | Encounter Summary ---
Author Organization [facility] Address [address] [place] [address] Care Team Providers Care Test Lead Application Testing Name Role Phone Wiley Thompson MD Primary Care Provider Kameron Cornejo MD Unavailable Katya Lopez NP Unavailable Unavailab Kathy Haley MD Primary Care Prov ider Be Pacheco NP Unavailable [phone] Maycol Infante MD Unavailable Unavailable Sebastian Martinez MD Unavailable UnavailEve Blackmon MD Unavailable Elisa Romero NP Unavailable [phone] Marcus Murcia DO Unavailable Unavailable Encounter Details Date Type Department Care Team Description 03/18/2019 Route Delivery Manager Report Medical Records [address] [place] [address] Matti Bansal Social History Tobacco Use Types [...] filedocumented in this encounter Care Teams Test Lead Application Testing Relationship Specialty Start Date End Date Wiley Thompson MD PCP - General Internal Medicine 06/04/14 01/20/22 Kathy Christopher MD [address] [place] [address]248 PCP - General Internal Medicine 01/21/22 Kameron Zuñiga MD [place] Cardiovascular Disease 08/04/21 Katya Lopez NP Cardiology 08/04/21 01/30/24 Be Pacheco NP [address] [place] [address] 53404 Nurse Practitioner Cardiology 10/17/22 01/30/24 Maycol Infante MD [address] [place] [address] 83573 Specialist Pulmonology 10/19/22 Sebastian Martinez MD [address] [place] [address] 34829 Specialist Ophthalmology 03/21/23 Eve Juan MD [address] [place] [address] [place] [address] Specialist UROGYNECOLOGY 03/21/23 Elisa Romero NP [address] [place] [address] [place] [address] Cardiology 01/31/24 Marcus Murcia DO [address] [place] [address] [place] [address] Specialist Physiatry 03/26/24 documented as of this encounter
--- OUTSIDE RECORDS SUMMARY | 2025-02-15 12:59 | XMS_ITS | Encounter Summary ---
Author Organization [facility] Address [address] [place] [address] Care Team Providers Care Grain Cleaner Name Role Phone Wiley Thompson MD Primary Care Provider Kameron Cornejo MD Unavailable Katya Lopez NP Unavailable Unavailab Kathy Haley MD Primary Care Prov ider Be Pacheco NP Unavailable [phone] Maycol Infante MD Unavailable Unavailable Sebastian Martinez MD Unavailable UnavailEve Blackmon MD Unavailable Elisa Romero NP Unavailable [phone] Marcus Murcia DO Unavailable Unavailable Reason for Visit * Reason Comments E-prescribe Rx Request Encounter Details Date Type Department Care Team Description 04/17/2019 Refill Adult Medicine [address] [address] Wiley Thompson MD E-prescribe Rx Request Social [...] Patients current insurance [facility] is: [facility] M[facility] / Plan: O $0 [facility] [id number] / Product Type: HMO [id number] documented in this encounter Plan of Treatment Not on file documented as of this encounter Visit Diagnoses Diagnosis CAD (coronary artery disease), [place] coronary artery Coronary atherosclerosis of [place] coronary artery documented in this encounter Care Teams Grain Cleaner Relationship Specialty Start Date End Date Wiley Thompson MD PCP - General Internal Medicine 06/04/14 01/20/22 Kathy Christopher MD [address] [place] [address] PCP - General Internal Medicine 01/21/22 Kameron Zuñiga MD Rn Urology Cardiovascular Disease 08/04/21 Katya Lopez NP Cardiology 08/04/21 01/30/24 Be Pacheco NP [address] [place] [address] 29825 Nurse Practitioner Cardiology 10/17/22 01/30/24 Maycol Infante MD [address] [place], [place] [address] Specialist Pulmonology 10/19/22 Sebastian Martinez MD [address] [place] [address] Specialist Ophthalmology 03/21/23 Eve Juan MD [address] [place] [address] [place] [address] Specialist UROGYNECOLOGY 03/21/23 Elisa Romero NP [address] [place] [address] [place] [address] Cardiology 01/31/24 Marcus Murcia DO [address] [place] [address] [place] [address] Specialist Physiatry 03/26/24 documented as of this encounter
--- OUTSIDE RECORDS SUMMARY | 2025-02-15 12:59 | XMS_ITS | Encounter Summary ---
Author Organization [facility] Address [address] [place] [address] Care Team Providers Care Ophthalmologist Retina Specialist Name Role Phone Wiley Thompson MD Primary Care Provider Kameron Cornejo MD Unavailable Katya Lopez NP Unavailable Unavailab Kathy Haley MD Primary Care Prov ider Be Pacheco NP Unavailable [phone] Maycol Infante MD Unavailable Unavailable Sebastian Martinez MD Unavailable UnavailEve Blackmon MD Unavailable Elisa Romero NP Unavailable [phone] Marcus Murcia DO Unavailable Unavailable Encounter Details Date Type Department Care Team Description 08/19/2021 Superintendent Colliery Report Medical Records [address] [place] [address] Tyson Hunter Social History Tobacco Use Types [...] on filedocumented in this encounter Care Teams Ophthalmologist Retina Specialist Relationship Specialty Start Date End Date Wiley Thompson MD PCP - General Internal Medicine 06/04/14 01/20/22 Kathy Christopher MD [address] [place] [address] PCP - General Internal Medicine 01/21/22 Kameron Zuñiga MD Dope Maintenance Worker Cardiovascular Disease 08/04/21 Katya Lopez NP Cardiology 08/04/21 01/30/24 Be Pacheco NP [address] [place] [address]99 Nurse Practitioner Cardiology 10/17/22 01/30/24 Maycol Infante MD [address] [place] [address] Specialist Pulmonology 10/19/22 Sebastian Martinez MD [address] [place] [address] Specialist Ophthalmology 03/21/23 Eve Juan MD [address] [place] [address] [place] [address] Specialist UROGYNECOLOGY 03/21/23 Elisa Romero NP [address] [place] [address] [place] [address] Cardiology 01/31/24 Marcus Murcia DO [address] [place] [address] [place] [address] Specialist Physiatry 03/26/24 documented as of this encounter
--- OUTSIDE RECORDS SUMMARY | 2025-02-15 12:59 | XMS_ITS | Encounter Summary ---
Author Organization [facility] Address [address] [place] [address] Care Team Providers Care Account Services Analyst Name Role Phone Wiley Thompson MD Primary Care Provider Kameron Cornejo MD Unavailable Katya Lopez NP Unavailable Unavailab Kathy Haley MD Primary Care Prov ider Be Pacheco NP Unavailable [phone] Maycol Infante MD Unavailable Unavailable Sebastian Martinez MD Unavailable UnavailEve Blackmon MD Unavailable Elisa Romero NP Unavailable [phone] Marcus Murcia DO Unavailable Unavailable Encounter Details Date Type Department Care Team Description 09/17/2021 SCAN Medical Records [address] [place] [address] Abstract, Provider Social History Tobacco Use Types [...] filedocumented in this encounter Care Teams Account Services Analyst Relationship Specialty Start Date End Date Wiley Thompson MD PCP - General Internal Medicine 06/04/14 01/20/22 Kathy Christopher MD [address] [place] [address] PCP - General Internal Medicine 01/21/22 Kameron Zuñiga MD Personal Lines Appraiser Cardiovascular Disease 08/04/21 Katya Lopez NP Cardiology 08/04/21 01/30/24 Be Pacheco NP [address] [place] [address] Nurse Practitioner Cardiology 10/17/22 01/30/24 Maycol Infante MD [address] [place] [address] Specialist Pulmonology 10/19/22 Sebastian Martinez MD [address] [place] [address] Specialist Ophthalmology 03/21/23 Eve Juan MD [address] [place] [address] [place] [address] Specialist UROGYNECOLOGY 03/21/23 Elisa Romero NP [address] [place] [address] [place] [address] Cardiology 01/31/24 Marcus Murcia DO [address] [place] [address] [place] [address] Specialist Physiatry 03/26/24 documented as of this encounter
--- OUTSIDE RECORDS SUMMARY | 2025-02-15 12:59 | XMS_ITS | Encounter Summary ---
Author Organization [facility] Address [address] [place] [address] Care Team Providers Care Boning Room Worker Name Role Phone Kameron Zuñiga MD Unavailable Katya Lopez NP Unavailable Unavailab le Kathy Christopher MD Primary Care Prov ider Be Pacheco NP Unavailable [phone] Maycol Infante MD Unavailable Unavailable Sebastian Martinez MD Unavailable UnavailEve Blackmon MD Unavailable Elisa Romero NP Unavailable [phone] Marcus Murcia DO Unavailable Unavailable Encounter Details Date Type Department Care Team Description 09/19/2023 Boiler Service Technician Report Medical Records [address] [place] [address] Pierre Oliva, PAAdelaidaC Social History Tobacco Use [...] on filedocumented in this encounter Care Teams Boning Room Worker Relationship Specialty Start Date End Date Kathy Christopher MD [address] [place] [address] [phone] PCP - General Internal Medicine 01/21/22 Kameron Zuñiga MD Industrial Engineering Cardiovascular Disease 08/04/21 Katya Lopez NP Cardiology 08/04/21 01/30/24 eB Pacheco NP [address] [place] [address] 20355 Nurse Practitioner Cardiology 10/17/22 01/30/24 Maycol Infante MD [address] [place] [address] 96988 Specialist Pulmonology 10/19/22 Sebastian Martinez MD [address] [place] [address] Specialist Ophthalmology 03/21/23 Eve Juan MD [address] [place] [place] [address] [place] [address] Specialist UROGYNECOLOGY 03/21/23 Elisa Romero NP [address] [place] [address] [place] [address] Cardiology 01/31/24 Marcus Murcia DO [address] [place] [place] [address] [place] [address] Specialist Physiatry 03/26/24 documented as of this encounter
--- OUTSIDE RECORDS SUMMARY | 2025-02-15 12:59 | XMS_ITS | Encounter Summary ---
Author Organization [facility] Address [address] [place] [address] Care Team Providers Care Flooring Sales Manager Name Role Phone Wiley Thompson MD Primary Care Provider Kameron Cornejo MD Unavailable Katya Lopez NP Unavailable Unavailab Kathy Haley MD Primary Care Prov ider Be Pacheco NP Unavailable [phone] Maycol Infante MD Unavailable Unavailable Sebastian Martinez MD Unavailable UnavailEve Blackmon MD Unavailable Elisa Romero NP Unavailable [phone] Marcus Murcia DO Unavailable Unavailable Reason for Visit * Reason Onset Date Comments Echocardiogram 04/13/2017 Encounter Details Date Type Department Care Team Description 04/13/2017 Telephone Cardiology - [place] [address] [place] [address] [phone] Chhaya Whatley, ROMINA [address] [place] [address] [phone] Echocardiogram Social History Tobacco Use Types Packs/Day [...] 04/13/2017 2:39 PM EDT Form faxed to [facility] for auth * Telephone Encounter - Ijeoma Villa - 04/13/2017 2:09 PM EDT Shea is having an echocardiogram done on 04/18/17 and she has [employer] ins. Does this ins require andauth? Thank you Ijeoma in cardiology. documented in this encounter Plan of Treatment Not on file documented as of this encounter Visit Diagnoses Not on filedocumented in this encounter Care Teams Flooring Sales Manager Relationship Specialty Start Date End Date Wiley Thompson MD PCP - General Internal Medicine 06/04/14 01/20/22 Kathy Christopher MD [address] [place] [address] 9[address]59 PCP - General Internal Medicine 01/21/22 Kameron Zuñiga MD Construction Skills Teacher Cardiovascular Disease 08/04/21 Katya Lopez NP Cardiology 08/04/21 01/30/24 Be Pacheco NP [address] [place] [address] 53317 Nurse Practitioner Cardiology 10/17/22 01/30/24 Maycol Infante MD [address] [place] [address] 54435 Specialist Pulmonology 10/19/22 Sebastian Martinez MD [address] [place] [address] 08045 Specialist Ophthalmology 03/21/23 Eve Juan MD [address] [place] [address] [place] [address] Specialist UROGYNECOLOGY 03/21/23 Elisa Romero NP [address] [facility] [address] Cardiology 01/31/24 Marcus Murcia DO [address] [facility] [place] [address] Specialist Physiatry 03/26/24 documented as of this encounter
--- OUTSIDE RECORDS SUMMARY | 2025-02-15 12:59 | XMS_ITS | Encounter Summary ---
Author Organization [facility] Address [address] [place] [address] Care Team Providers Care Physical Laboratory Assistant Name Role Phone Wiley Thompson MD Primary Care Provider Kameron Cornejo MD Unavailable Katya Lopez NP Unavailable Unavailab Kathy Haley MD Primary Care Prov ider Be Pacheco NP Unavailable [phone] Maycol Infante MD Unavailable Unavailable Sebastian Martinez MD Unavailable UnavailEve Blackmon MD Unavailable Elisa Romero NP Unavailable [phone] Marcus Murcia DO Unavailable Unavailable Reason for Visit * Reason Onset Date Comments DME Request 07/11/2019 Encounter Details Date Type Department Care Team Description 07/11/2019 Telephone Adult Medicine [address] [address] Wiley Thompson MD DME Request Social History [...] Diabetes mellitus type 2 with neurological manifestations ([facility]) E11.49 ??? Recurrent HSV (herpes simplex virus) B00.9 ??? IBS (irritable bowel syndrome) K58.9 ??? Iron deficiency anemia due to chronic blood loss D50.0 ??? CKD (chronic kidney disease) stage 3, GFR 30-59 ml/min ([facility]) N18.3 ??? Chronic shoulder pain M25.519, G89.29 ??? Lower extremity edema R60.0 ??? Subclinical hyperthyroidism E05.90 ??? Obstructive sleep apnea moderate HAYLEY 16 with nocturnal hypoxia G47.33 ??? COPD (chronic obstructive pulmonary disease) ([facility]) J44.9 ??? Supplemental oxygen dependent Z99.81 ??? [...] on filedocumented in this encounter Care Teams Physical Laboratory Assistant Relationship Specialty Start Date End Date Wiley Thompson MD PCP - General Internal Medicine 06/04/14 01/20/22 Kathy Christopher MD [address] [place] [address] 324[address] PCP - General Internal Medicine 01/21/22 Kameron Zuñiga MD Assembler Watch Train Cardiovascular Disease 08/04/21 Katya Lopez NP Cardiology 08/04/21 01/30/24 Be Pacheco NP [address] [place] [address] 09235 Nurse Practitioner Cardiology 10/17/22 01/30/24 Maycol Infante MD [address] [place] [address] Specialist Pulmonology 10/19/22 Sebastian Martinez MD [address] [place] [address] 65552 Specialist Ophthalmology 03/21/23 Eve Juan MD [address] [place] [address] [place] [address] Specialist UROGYNECOLOGY 03/21/23 Elisa Romero NP [address] [place] [address] [place] [address] Cardiology 01/31/24 Marcus Murcia DO [address] [place] [address] [place] [address] Specialist Physiatry 03/26/24 documented as of this encounter
--- OUTSIDE RECORDS SUMMARY | 2025-02-15 13:00 | XMS_ITS | Encounter Summary ---
Author Organization [facility] Address [address] [place] [address] Care Team Providers Care Skin Grader Name Role Phone Kameron Zuñiga MD Unavailable Katya Lopez NP Unavailable Unavailab Kathy Haley MD Primary Care Prov ider Be Pacheco NP Unavailable [phone] Maycol Infante MD Unavailable Unavailable Sebastian Martinez MD Unavailable UnavailEve Blackmon MD Unavailable Elisa Romero NP Unavailable [phone] Marcus Murcia DO Unavailable Unavailable Encounter Details Date Type Department Care Team Description 05/11/2022 Telephone Adult Medicine [address] [phone] Kathy Christopher MD [address] [place] [address] [phone] Social History Tobacco Use Types Packs/Day Years [...] on filedocumented in this encounter Care Teams Skin Grader Relationship Specialty Start Date End Date Kathy Christopher MD [address] [place] [address] 6[address] PCP - General Internal Medicine 01/21/22 Kameron Zuñiga MD Salsa Dance Instructor Cardiovascular Disease 08/04/21 Katya Lopez NP Cardiology 08/04/21 01/30/24 Be Pacheco NP [address] [place] [address] 44902 Nurse Practitioner Cardiology 10/17/22 01/30/24 Maycol Infante MD [address] [place] [address] 81506 Specialist Pulmonology 10/19/22 Sebastian Martinez MD [address] [place] [address] 75[address] Specialist Ophthalmology 03/21/23 Eve Juan MD [address] [place] [address] [place] [address] Specialist UROGYNECOLOGY 03/21/23 Elisa Romero NP [address] [place] [address] [place] [address] Cardiology 01/31/24 Marcus Murcia DO [address] [place] [address] [place] [address] Specialist Physiatry 03/26/24 documented as of this encounter
--- OUTSIDE RECORDS SUMMARY | 2025-02-15 13:00 | XMS_ITS | Encounter Summary ---
Author Organization [facility] Address [address] [place] [address] Care Team Providers Care Case Investigator Name Role Phone Kameron Zuñiga MD Unavailable Katya Lopez NP Unavailable Unavailab Kathy Haley MD Primary Care Prov ider Be Pacheco NP Unavailable [phone] Maycol Infante MD Unavailable Unavailable Sebastian Martinez MD Unavailable UnavailEve Blackmon MD Unavailable Elisa Romero NP Unavailable [phone] Marcus Murcia DO Unavailable Unavailable Encounter Details Date Type Department Care Team Description 09/19/2023 Orders Only Medical Records [address] [place] [address] Lalitha Diego FNP-BC Social History Tobacco Use [...] on filedocumented in this encounter Care Teams Case Investigator Relationship Specialty Start Date End Date Kathy Christopher MD [address] [place] [address] 00815 PCP - General Internal Medicine 01/21/22 Kameron Zuñiga MD Picker And Sorter Load And Unload Cardiovascular Disease 08/04/21 Katya Lopez NP Cardiology 08/04/21 01/30/24 Be Pacheco NP [address] [place] [address] 74012 Nurse Practitioner Cardiology 10/17/22 01/30/24 Maycol Infante MD [address] [place] [address] 31326 Specialist Pulmonology 10/19/22 Sebastian Martinez MD [address] [place] [address] 7[address]11 Specialist Ophthalmology 03/21/23 Eve Juan MD [address] [place] [address] [place] [address] Specialist UROGYNECOLOGY 03/21/23 Elisa Romero NP [address] [place] [address] [place] [address] Cardiology 01/31/24 Marcus Murcia DO [address] [place] [address] [place] [address] Specialist Physiatry 03/26/24 documented as of this encounter
--- OUTSIDE RECORDS SUMMARY | 2025-02-15 13:00 | XMS_ITS | Encounter Summary ---
Author Organization [facility] Address [address] [place] [address] Care Team Providers Care Salvage Inspector Name Role Phone Kameron Zuñiga MD Unavailable Katya Lopez NP Unavailable Unavailab Kathy Haley MD Primary Care Prov ider Be Pacheco NP Unavailable [phone] Maycol Infante MD Unavailable Unavailable Sebastian Martinez MD Unavailable UnavailEve Blackmon MD Unavailable Elisa Romero NP Unavailable [phone] Marcus Murcia DO Unavailable Unavailable Encounter Details Date Type Department Care Team Description 03/10/2022 Wafer Fabrication Technician Report Medical Records [address] [place] [address] Maycol Infante MD Social History Tobacco Use [...] on filedocumented in this encounter Care Teams Salvage Inspector Relationship Specialty Start Date End Date Kathy Christopher MD [address] [place] [address] 92063 PCP - General Internal Medicine 01/21/22 Kameron Zuñiga MD Health Plan Specialist Cardiovascular Disease 08/04/21 Katya Lopez NP Cardiology 08/04/21 01/30/24 Be Pacheco NP [address] [place] [address] 06370 Nurse Practitioner Cardiology 10/17/22 01/30/24 Maycol Infante MD [address] [place] [address] 47715 Specialist Pulmonology 10/19/22 Sebastian Martinez MD [address] [place] [address] 51993 Specialist Ophthalmology 03/21/23 Eve Juan MD [address] [place] [address] [place] [address] Specialist UROGYNECOLOGY 03/21/23 Elisa Romero NP [address] [place] [address] [place] [address] Cardiology 01/31/24 Marcus Murcia DO [address] [place] [address] [place] [address] Specialist Physiatry 03/26/24 documented as of this encounter
--- OUTSIDE RECORDS SUMMARY | 2025-02-15 13:00 | XMS_ITS | Encounter Summary ---
Author Organization [facility] Address [address] [place] [address] Care Team Providers Care Sales Financial Analyst Name Role Phone Kameron Zuñiga MD Unavailable Katya Lopez NP Unavailable Unavailab Kathy Haley MD Primary Care Prov ider Be Pacheco NP Unavailable [phone] Maycol Infante MD Unavailable Unavailable Sebastian Martinez MD Unavailable UnavailEve Blackmon MD Unavailable Elisa Romero NP Unavailable [phone] Marcus Murcia DO Unavailable Unavailable Reason for Visit * Reason Onset Date Comments other 03/23/2022 leg edema,sob Encounter Details Date Type Department Care Team Description 03/23/2022 Telephone Cardio PVCA Diag Testing [address] [facility] [address] [place], [place] [phone] Kameron Zuñiga MD [address] [place] [address] [phone] other (leg edema,sob) Social History Tobacco Use [...] on for 2 days. Please call patient [phone] documented in this encounter Plan of Treatment Not on file documented as of this encounter Visit Diagnoses Not on filedocumented in this encounter Care Teams Sales Financial Analyst Relationship Specialty Start Date End Date Kathy Christopher MD [address] [place] [address] [place] [address] PCP - General Internal Medicine 01/21/22 Kameron Zuñiga MD Spooling Machine Operator Cardiovascular Disease 08/04/21 Katya Lopez NP Cardiology 08/04/21 01/30/24 Be Pacheco NP [address] [place] [address] Nurse Practitioner Cardiology 10/17/22 01/30/24 Maycol Infante MD [address] [place] [address] Specialist Pulmonology 10/19/22 Sebastian Martinez MD [address] [place] [address] Specialist Ophthalmology 03/21/23 Eve Juan MD [address] [facility] [place] [address] Specialist UROGYNECOLOGY 03/21/23 Elisa Romero NP [address] [facility] [place] [address] Cardiology 01/31/24 Marcus Murcia DO [address] [facility] [place] [address] Specialist Physiatry 03/26/24 documented as of this encounter
--- OUTSIDE RECORDS SUMMARY | 2025-02-15 13:00 | XMS_ITS | Encounter Summary ---
Author Organization [facility] Address [address] [place] [address] Care Team Providers Care Game Bird Farmer Name Role Phone Wiley Thompson MD Primary Care Provider Kameron Cornejo MD Unavailable Katya Lopez NP Unavailable Unavailab Kathy Haley MD Primary Care Prov ider Be Pacheco NP Unavailable [phone] Maycol Infante MD Unavailable Unavailable Sebastian Martinez MD Unavailable UnavailEve Blackmon MD Unavailable Elisa Romero NP Unavailable [phone] Marcus Murcia DO Unavailable Unavailable Encounter Details Date Type Department Care Team Description 09/24/2019 Bed Spring Maker Report Medical Records [address] [place] [address] Matti Bansal Social History Tobacco Use Types [...] filedocumented in this encounter Care Teams Game Bird Farmer Relationship Specialty Start Date End Date Wiley Thompson MD PCP - General Internal Medicine 06/04/14 01/20/22 Kathy Christopher MD [address] [place] [address] 69366 PCP - General Internal Medicine 01/21/22 Kameron Zuñiga MD Matcher Cardiovascular Disease 08/04/21 Katya Lopez NP Cardiology 08/04/21 01/30/24 Be Pacheco NP [address] [place] [address] 32092 Nurse Practitioner Cardiology 10/17/22 01/30/24 Maycol Infante MD [address] [place] [address] 47823 Specialist Pulmonology 10/19/22 Sebastian Martinez MD [address] [place] [address] 45[address] Specialist Ophthalmology 03/21/23 Eve Juan MD [address] [place] [address] [place] [address] Specialist UROGYNECOLOGY 03/21/23 Elisa Romero NP [address] [place] [address] [place] [address] Cardiology 01/31/24 Marcus Murcia DO [address] [place] [address] [place] [address] Specialist Physiatry 03/26/24 documented as of this encounter
--- OUTSIDE RECORDS SUMMARY | 2025-02-15 13:00 | XMS_ITS | Encounter Summary ---
Author Organization [facility] Address [address] [place] [address] Care Team Providers Care Adult High School Instructor Name Role Phone Wiley Thompson MD Primary Care Provider Kameron Cornejo MD Unavailable Katya Lopez NP Unavailable Unavailab Kathy Haley MD Primary Care Prov ider Be Pacheco NP Unavailable [phone] Maycol Infante MD Unavailable Unavailable Sebastian Martinez MD Unavailable UnavailEve Blackmon MD Unavailable Elisa Romero NP Unavailable [phone] Marcus Murcia DO Unavailable Unavailable Reason for Visit * Reason Comments E-prescribe Rx Request Encounter Details Date Type Department Care Team Description 07/24/2017 Refill Adult Medicine [address] [address] Wiley Thompson MD E-prescribe Rx Request Social [...] NO Patients current insurance carrier is: Payor: [facility] M[facility] / Plan: [facility] $0 [facility] [id number] / Product Type: HMO [id number] documented in this encounter Plan of Treatment Not on file documented as of this encounter Visit Diagnoses Not on filedocumented in this encounter Care Teams Adult High School Instructor Relationship Specialty Start Date End Date Wiley Thompson MD PCP - General Internal Medicine 06/04/14 01/20/22 Trina Rizo, Kathy Fried MD [address] [place] [address]170 PCP - General Internal Medicine 01/21/22 Kameron Zuñiga MD Identifier Horse Cardiovascular Disease 08/04/21 Katya Lopez NP Cardiology 08/04/21 01/30/24 Be Pacheco NP [address] [place] [address] 68367 Nurse Practitioner Cardiology 10/17/22 01/30/24 Maycol Infante MD [address] [place] [address] 71937 Specialist Pulmonology 10/19/22 Sebastian Martinez MD [address] [place], [place] [phone] Specialist Ophthalmology 03/21/23 Eve Juan MD [address] [place] [address] [place] [address] Specialist UROGYNECOLOGY 03/21/23 Elisa Romero NP [address] [place] [address] [place] [address] Cardiology 01/31/24 Marcus Murcia DO [address] [place] [address] [place] [address] Specialist Physiatry 03/26/24 documented as of this encounter
--- OUTSIDE RECORDS SUMMARY | 2025-02-15 13:00 | XMS_ITS | Encounter Summary ---
Author Organization [facility] Address [address] [place] [address] Care Team Providers Care Prototype Model Maker Name Role Phone Wiley Thompson MD Primary Care Provider Kameron Cornejo MD Unavailable Katya Lopez NP Unavailable Unavailab Kathy Christopher MD Primary Care Prov ider Be Pacheco NP Unavailable [phone] Maycol Infante MD Unavailable Unavailable Sebastian Martinez MD Unavailable UnavailEve Blackmon MD Unavailable Elisa Romero NP Unavailable [phone] Marcus Murcia DO Unavailable Unavailable Encounter Details Date Type Department Care Team Description 05/26/2015 GYROSCOPE REPAIRER/MassPat Report Medical Records [address] [place] [address] Abstract, Provider Social History Tobacco Use Types [...] on filedocumented in this encounter Care Teams Prototype Model Maker Relationship Specialty Start Date End Date Wiley Thompson MD PCP - General Internal Medicine 06/04/14 01/20/22 Kathy Christopher MD [address] [place] [address] 87107 PCP - General Internal Medicine 01/21/22 Kameron Zuñiga MD Graphic Arts Instructor Cardiovascular Disease 08/04/21 Katya Lopez NP Cardiology 08/04/21 01/30/24 Be Pacheco NP [address] [place] [address] 91619 Nurse Practitioner Cardiology 10/17/22 01/30/24 Maycol Infante MD [address] [place] [address] 08278 Specialist Pulmonology 10/19/22 Sebastian Martinez MD [address] [place], [place] [address] Specialist Ophthalmology 03/21/23 Eve Juan MD [address] [place] [address] [place] [address] Specialist UROGYNECOLOGY 03/21/23 Elisa Romero NP [address] [place] [address] [place] [address] Cardiology 01/31/24 Marcus Murcia DO [address] [place] [address] [place] [address] Specialist Physiatry 03/26/24 documented as of this encounter
--- OUTSIDE RECORDS SUMMARY | 2025-02-15 13:00 | XMS_ITS | Encounter Summary ---
Author Organization [facility] Address [address] [place] [address] Care Team Providers Care Tobacco Acreage Measurer Name Role Phone Wiley Thompson MD Primary Care Provider Kameron Cornejo MD Unavailable Katya Lopez NP Unavailable Unavailab Kathy Haley MD Primary Care Prov ider Be Pacheco NP Unavailable [phone] Maycol Infante MD Unavailable Unavailable Sebastian Martinez MD Unavailable UnavailEve Blackmon MD Unavailable Elisa Romero NP Unavailable [phone] Marcus Murcia DO Unavailable Unavailable Encounter Details Date Type Department Care Team Description 05/24/2017 Pairer Report Medical Records [address] [place] [address] Be Pacheco NP [address] [place], [place] [phone] Social History Tobacco Use Types Packs/Day Years [...] on filedocumented in this encounter Care Teams Tobacco Acreage Measurer Relationship Specialty Start Date End Date Wiley Thompson MD PCP - General Internal Medicine 06/04/14 01/20/22 Kathy Christopher MD [address] [place] [address]229 PCP - General Internal Medicine 01/21/22 Kameron Zuñiga MD Stripping Cutter And Winder Cardiovascular Disease 08/04/21 Katya Lopez NP Cardiology 08/04/21 01/30/24 Be Pacheco NP [address] [place] [address] 74252 Nurse Practitioner Cardiology 10/17/22 01/30/24 Maycol Infante MD [address] [place] [address] 22256 Specialist Pulmonology 10/19/22 Sebastian Martinez MD [address] [place] [address] 72889 Specialist Ophthalmology 03/21/23 Eve Juan MD [address] [place] [address] [place] [address] Specialist UROGYNECOLOGY 03/21/23 Elisa Romero NP [address] [place] [address] [place] [address] Cardiology 01/31/24 Marcus Murcia DO [address] [place] [address] [place] [address] Specialist Physiatry 03/26/24 documented as of this encounter
--- OUTSIDE RECORDS SUMMARY | 2025-02-15 13:00 | XMS_ITS | Encounter Summary ---
Author Organization [facility] Address [address] [place] [address] Care Team Providers Care Strategic Procurement Manager Name Role Phone Kameron Zuñiga MD Unavailable Katya Lopez NP Unavailable Unavailab Kathy Haley MD Primary Care Prov ider Be Pacheco NP Unavailable [phone] Maycol Infante MD Unavailable Unavailable Sebastian Martinez MD Unavailable UnavailEve Blackmon MD Unavailable Elisa Romero NP Unavailable [phone] Marcus Murcia DO Unavailable Unavailable Encounter Details Date Type Department Care Team Description 05/27/2022 Tax Audit Manager Report Medical Records [address] [place] [address] Maycol Infante MD Social History Tobacco Use [...] on filedocumented in this encounter Care Teams Strategic Procurement Manager Relationship Specialty Start Date End Date Kathy Christopher MD [address] [place] [address] 11853 PCP - General Internal Medicine 01/21/22 Kameron Zuñiga MD Timber Treatment Plant Operator Cardiovascular Disease 08/04/21 Katya Lopez NP Cardiology 08/04/21 01/30/24 Be Pacheco NP [address] [place] [address] 16964 Nurse Practitioner Cardiology 10/17/22 01/30/24 Maycol Infante MD [address] [place] [address] 48929 Specialist Pulmonology 10/19/22 Sebastian Martinez MD [address] [place] [address] 76350 Specialist Ophthalmology 03/21/23 Eve Juan MD [address] [place] [address] [place] [address] Specialist UROGYNECOLOGY 03/21/23 Elisa Romero NP [address] [place] [address] [place] [address] Cardiology 01/31/24 Marcus Murcia DO [address] [place] [address] [place] [address] Specialist Physiatry 03/26/24 documented as of this encounter
--- OUTSIDE RECORDS SUMMARY | 2025-02-15 13:00 | XMS_ITS | Encounter Summary ---
Author Organization [facility] Address [address] [place] [address] Care Team Providers Care Blacksmith Farm Name Role Phone Bri Santacruz MD Primary Care Provider Unavailable Wiley Thompson MD Primary Care Provider Kameron Cornejo MD Unavailable Katya Lopez NP Unavailable Unavailab Kathy Haley MD Primary Care Prov ider Be Pacheco NP Unavailable [phone] Maycol Infante MD Unavailable Unavailable Sebastian Martinez MD Unavailable UnavailEve Blackmon MD Unavailable Elisa Romero NP Unavailable Marcus Murcia DO Unavailable Unavailable Encounter Details Date Type Department Care Team Description 10/16/2013 Pharmacist Aide Report Medical Records [address] [place] [address] Pallavi Henry MD Social History Tobacco Use [...] on filedocumented in this encounter Care Teams Blacksmith Farm Relationship Specialty Start Date End Date Bri Santacruz MD PCP - General Internal Medicine 04/23/12 06/03/14 Wiley Thompson MD PCP - General Internal Medicine 06/04/14 01/20/22 Kathy Christopher MD [address] [place] [address] PCP - General Internal Medicine 01/21/22 Kameron Zuñiga MD Golf Ball Trimmer Cardiovascular Disease 08/04/21 Katya Lopez, IRMA Cardiology 08/04/21 01/30/24 Be Pacheco NP [address] [place] [address] Nurse Practitioner Cardiology 10/17/22 01/30/24 Maycol Infante MD [address] [place] [address] Specialist Pulmonology 10/19/22 Sebastian Martinez MD [address] [place] [address] Specialist Ophthalmology 03/21/23 Eve Juan MD [address] [place] [address] [place] [address] Specialist UROGYNECOLOGY 03/21/23 Elisa Romero NP [address] [place] [address] [place] [address] Cardiology 01/31/24 Marcus Murcia DO [address] [place] [address] [place] [address] Specialist Physiatry 03/26/24 documented as of this encounter
--- OUTSIDE RECORDS SUMMARY | 2025-02-15 13:00 | XMS_ITS | Encounter Summary ---
Author Organization [facility] Address [address] [place] [address] Care Team Providers Care Warpman Name Role Phone Wiley Thompson MD Primary Care Provider Kameron Cornejo MD Unavailable Katya Lopez NP Unavailable Unavailab Kathy Christopher MD Primary Care Prov ider Be Pacheco NP Unavailable [phone] Maycol Infante MD Unavailable Unavailable Sebastian Martinez MD Unavailable UnavailEve Blackmon MD Unavailable Elisa Romero NP Unavailable [phone] Marcus Murcia DO Unavailable Unavailable Encounter Details Date Type Department Care Team Description 05/21/2015 Transfer Records Medical Records [address] [place] [address] Abstract, Provider Social History Tobacco Use Types [...] on filedocumented in this encounter Care Teams Warpman Relationship Specialty Start Date End Date Wiley Thompson MD PCP - General Internal Medicine 06/04/14 01/20/22 Kathy Christopher MD [address] [place] [address]47 PCP - General Internal Medicine 01/21/22 Kameron Zuñiga MD Desulphuring Operator Cardiovascular Disease 08/04/21 Katya Lopez NP Cardiology 08/04/21 01/30/24 Be Pacheco NP [address] [place] [address]98 Nurse Practitioner Cardiology 10/17/22 01/30/24 Maycol Infante MD [address] [place] [address]69 Specialist Pulmonology 10/19/22 Sebastian Martinez MD [address] [place] [address] Specialist Ophthalmology 03/21/23 Eve Juan MD [address] [place] [address] [place] [address] Specialist UROGYNECOLOGY 03/21/23 Elisa Romero NP [address] [place] [address] [place] [address] Cardiology 01/31/24 Marcus Murcia DO [address] [place] [address] [place] [address] Specialist Physiatry 03/26/24 documented as of this encounter
--- OUTSIDE RECORDS SUMMARY | 2025-02-15 13:00 | XMS_ITS | Encounter Summary ---
Author Organization [facility] Address [address] [place] [address] Care Team Providers Care Commercial Sales Director Name Role Phone Bri Santacruz MD Primary Care Provider Unavailable Wiley Thompson MD Primary Care Provider Kameron Cornejo MD Unavailable Katya Lopez NP Unavailable Unavailab Kathy Haley MD Primary Care Prov ider Be Pacheco NP Unavailable Maycol Infante MD Unavailable Unavailable Sebastian Martinez MD Unavailable UnavailEve Blackmon MD Unavailable Elisa Romero NP Unavailable [phone] Marcus Murcia DO Unavailable Unavailable Encounter Details Date Type Department Care Team Description 03/12/2013 Online Merchant Report Medical Records [address] [place] [address] Bri Santacruz MD Social History Tobacco Use [...] filedocumented in this encounter Care Teams Commercial Sales Director Relationship Specialty Start Date End Date Bri Santacruz MD PCP - General Internal Medicine 04/23/12 06/03/14 Wiley Thompson MD PCP - General Internal Medicine 06/04/14 01/20/22 Kathy Christopher MD [address] [place] [address] PCP - General Internal Medicine 01/21/22 Kameron Zuñiga MD Marble Supervisor Cardiovascular Disease 08/04/21 Katya Lopez, IRMA Cardiology 08/04/21 01/30/24 Be Pacheco NP [address] [place] [address] Nurse Practitioner Cardiology 10/17/22 01/30/24 Maycol Inafnte MD [address] [place] [address] Specialist Pulmonology 10/19/22 Sebastian Martinez MD [address] [place] [address] Specialist Ophthalmology 03/21/23 Eve Juan MD [address] [place] [address] [place] [address] Specialist UROGYNECOLOGY 03/21/23 Elisa Romero NP [address] [place] [address] [place] [address] Cardiology 01/31/24 Marcus Murcia DO [address] [place] [address] [place] [address] Specialist Physiatry 03/26/24 documented as of this encounter
--- OUTSIDE RECORDS SUMMARY | 2025-02-15 13:00 | XMS_ITS | Encounter Summary ---
Author Organization [facility] Address [address] [place] [address] Care Team Providers Care History Tutor Name Role Phone Kameron Zuñiga MD Unavailable Katya Lopez NP Unavailable Unavailab Kathy Haley MD Primary Care Prov ider Be Pacheco NP Unavailable [phone] Maycol Infante MD Unavailable Unavailable Sebastian Martinez MD Unavailable UnavailEve Blackmon MD Unavailable Elisa Romero NP Unavailable [phone] Marcus Murcia DO Unavailable Unavailable Reason for Visit * Reason Onset Date Comments Hematuria 04/28/2022 Encounter Details Date Type Department Care Team Description 04/28/2022 Telephone Urogynecology [address] [address] Eve Juan MD [address] [place] [address] Urogynecology [place], [place] Hematuria Social History Tobacco Use Types [...] on filedocumented in this encounter Care Teams History Tutor Relationship Specialty Start Date End Date Kathy Christopher MD [address] [place] [address] PCP - General Internal Medicine 01/21/22 Kameron Zuñiga MD Flatbed Press Operator Cardiovascular Disease 08/04/21 Katya Lopez NP Cardiology 08/04/21 01/30/24 Be Pacheco NP [address] [place] [address] Nurse Practitioner Cardiology 10/17/22 01/30/24 Maycol Infante MD [address] [place], [place] [address] Specialist Pulmonology 10/19/22 Sebastian Martinez MD [address] [place], [place] [address] Specialist Ophthalmology 03/21/23 Eve Juan MD [address] [place] [address] [place] [address] Specialist UROGYNECOLOGY 03/21/23 Elisa Romero, IRMA [address] [place] [address] [place] [address] Cardiology 01/31/24 Marcus Murcia DO [address] [place] [address] [place] [address] Specialist Physiatry 03/26/24 documented as of this encounter
--- OUTSIDE RECORDS SUMMARY | 2025-02-15 13:00 | XMS_ITS | Clinical Summary ---
Author Organization [facility] Address [address] [address] Phone Care Team Providers Care Master Control Supervisor Name Role Phone Kathy Christopher MD Primary [...] Gastroparesis 07/17/2012 Overview (09/19/2024): Dr. Stephenson at [address] [place] [address] drive Gastroesophageal reflux disease 07/17/2012 Immunizations Immunization Administration Dates Next Due Influenza, [...] Office Visit [facility] [address] [address] Everton Riddle MD [address] [address] 07/29/2025 1:00 PM EST Office Visit [facility] [address] [address] Lizzie Magana ARNP [address] [address] Health Maintenance Due Date Last [...] 11:29 AM EDT) Protein, Ur 30 mg/dL [facility] Urine Protein/Creati nine Ratio 0.31(H) <=0.20 mg/mg creat [facility] Creatinine, Urine 96.0 mg/dL [facility] Urine specimen (specimen) Urine specimen obtained by clean catch procedure / Unknown 01/06/2025 11:29 AM EDT 01/06/2025 3:13 PM EDT us Everton Riddle MD LAB URINE ORDERABLES Final Re sult [facility] [address] [place] [address] * (ABNORMAL) Urine Albumin / Creatinine Ratio (01/06/2025 11:29 AM EDT) Creatinine, Urine 96.0 mg/dL [facility] Microalbumin Urine Random 87.3(H) 0.0 - 29.0 mg/L [facility] Microalbumin/Cre atinine Ratio 91(H) <30 mg[facility] Urine specimen (specimen) Urine specimen obtained by clean catch procedure / Unknown 01/06/2025 11:29 AM EDT 01/06/2025 3:13 PM EDT Everton Riddle MD LAB URINE ORDERABLES Final Re sult [facility] [address] [place] [address] * (ABNORMAL) Renal Function Panel (01/06/2025 11:29 AM EDT) Sodium 141 133 - 145 mmol/L [facility] Potassium 4.4 3.5 - 5.5 mmol/L [facility] Chloride 106 96 - 110 mmol/L [facility] Bicarbonate (CO2) 30 21 - 32 mmol/L [facility] Anion Gap 5 3 - 11 [facility] Glucose 99 70 - 100 mg/dL [facility] BUN 13 5 - 25 mg/dL [facility] Creatinine Serum 0.98 0.50 - 1.10 mg/dL [facility] eGFR 58(L) >=60 mL/min/1. 73m2 [facility] Comment:Calculation based on the Chronic Kidney Disease Epidemiology Collaboration (CKD-EPI) equation refit without adjustment for race. BUN/Creatinine Ratio 13.3 [facility] Albumin 3.4 3.2 - 5.0 g/dL [facility] Calcium 9.3 8.5 - 10.5 mg/dL [facility] Phosphorus 4.0 2.5 - 4.5 mg/dL [facility] Blood specimen (specimen) Venous blood / Unknown 01/06/2025 11:29 AM EDT 01/06/2025 3:12 PM EDT Everton Riddle MD LAB BLOOD ORDERABLES Final Re sult [facility] [address] [place] [address] from Last 3 Months Insurance [facility] ([id number]) Care Teams Master Control Supervisor Relationship Specialty Start Date End Date Kathy Christopher MD [address] [place] [address] PCP - General 09/10/24
--- OUTSIDE RECORDS SUMMARY | 2025-02-15 13:00 | XMS_ITS | Encounter Summary ---
Author Organization [facility] Address [address] [place] [address] Care Team Providers Care Cable Television Technician Name Role Phone Wiley Thompson MD Primary Care Provider Kameron Cornejo MD Unavailable Katya Lopez NP Unavailable Unavailab Kathy Haley MD Primary Care Prov ider Be Pacheco NP Unavailable [phone] Maycol Infante MD Unavailable Unavailable Sebastian Martinez MD Unavailable UnavailEve Blackmon MD Unavailable Elisa Romero NP Unavailable [phone] Marcus Murcia DO Unavailable Unavailable Encounter Details Date Type Department Care Team Description 02/28/2015 Hospital Medical Records [address] [place] [address] Ian Markham DO Social History Tobacco Use [...] on filedocumented in this encounter Care Teams Cable Television Technician Relationship Specialty Start Date End Date Wiley Thompson MD PCP - General Internal Medicine 06/04/14 01/20/22 Kathy Christopher MD [address] [place] [address] PCP - General Internal Medicine 01/21/22 Kameron Zuñiga MD Manager Copy Cardiovascular Disease 08/04/21 Katya Lopez NP Cardiology 08/04/21 01/30/24 Be Pacheco NP [address] [place] [address] Nurse Practitioner Cardiology 10/17/22 01/30/24 Maycol Infante MD [address] [place] [address] Specialist Pulmonology 10/19/22 Sebastian Martinez MD [address] [place] [address] Specialist Ophthalmology 03/21/23 Eve Juan MD [address] [place] [address] [place] [address] Specialist UROGYNECOLOGY 03/21/23 Elisa Romero NP [address] [place] [address] [place] [address] Cardiology 01/31/24 Marcus Murcia DO [address] [place] [address] [place] [address] Specialist Physiatry 03/26/24 documented as of this encounter
--- OUTSIDE RECORDS SUMMARY | 2025-02-15 13:00 | XMS_ITS | Encounter Summary ---
Author Organization [facility] Address [address] [place] [address] Care Team Providers Care Arabic Linguist Name Role Phone Bri Santacruz MD Primary Care Provider Unavailable Wiley Thompson MD Primary Care Provider Kameron Cornejo MD Unavailable Katya Lopez NP Unavailable Unavailab Kathy Haley MD Primary Care Prov ider CycBe navas NP Unavailable [phone] Maycol Infante MD Unavailable Unavailable Sebastian Martinez MD Unavailable UnavailEve Blackmon MD Unavailable Elisa Romero NP Unavailable [phone] Marcus Murcia DO Unavailable Unavailable Reason for Visit * Reason Onset Date Comments Headache 12/25/2013 Encounter Details Date Type Department Care Team Description 12/25/2013 Telephone Adult Medicine [address] [id number] Bri Santacruz MD Headache Social History Tobacco [...] had these symptoms?: PCP: Bri Santacruz Payor: [facility] MCR / Plan: HMO $0 [place] / Product Type: O [id number]-[id number] documented in this encounter Plan of Treatment Not on file documented as of this encounter Visit Diagnoses Not on filedocumented in this encounter Care Teams Arabic Linguist Relationship Specialty Start Date End Date Bri Santacruz MD PCP - General Internal Medicine 04/23/12 06/03/14 Wiley Thompson MD PCP - General Internal Medicine 06/04/14 01/20/22 Kathy Christopher MD [address] [place] [address] PCP - General Internal Medicine 01/21/22 Kameron Zuñiga MD Brake Press Operator Cardiovascular Disease 08/04/21 Katya Lopez NP Cardiology 08/04/21 01/30/24 Be Pacheco NP [address] [place] [address] Nurse Practitioner Cardiology 10/17/22 01/30/24 Maycol Infante MD [address] [place] [address] Specialist Pulmonology 10/19/22 Sebastian Martinez MD [address] [place] [address]69 Specialist Ophthalmology 03/21/23 Eve Juan MD [address] [place] [address] [place] [address] Specialist UROGYNECOLOGY 03/21/23 Elisa Romero NP [address] [place] [address] [place] [address] Cardiology 01/31/24 Marcus Murcia DO [address] [place] [address] [place] [address] Specialist Physiatry 03/26/24 documented as of this encounter
--- OUTSIDE RECORDS SUMMARY | 2025-02-15 13:00 | XMS_ITS | Encounter Summary ---
Author Organization [facility] Address [address] [place] [address] Care Team Providers Care Gambling Dealer Name Role Phone Wiley Thompson MD Primary Care Provider Kameron Cornejo MD Unavailable Katya Lopez NP Unavailable Unavailab Kathy Haley MD Primary Care Prov ider Be Pacheco NP Unavailable [phone] Maycol Infante MD Unavailable Unavailable Sebastian Martinez MD Unavailable UnavailEve Blackmon MD Unavailable Elisa Romero NP Unavailable [phone] Marcus Murcia DO Unavailable Unavailable Reason for Referral * Radiology Services (Routine) - Closed Specialty Diagnoses / Procedures Referred By Contac t Referred To Contact Radiology Diagnoses Recurrent sinus infections Procedures CAT SCAN OF SINUSES NO CONTRAST Leilani Colindres APRN [address] [place] [address] [facility] [address] [place] [address] Referral ID Status Reason Start Date Expiration Date V isits Requested Visits Authorized CCA APPROVED Closed 09/12/2017 11/11/2017 1 1 Reason for Visit * Reason Onset Date Comments Provider Call Back 09/12/2017 Encounter Details Date Type Department Care Team Description 09/12/2017 Telephone Adult Medicine [facility] [address] [place] [address] Leilani Colindres APRN Provider Call Back Social [...] the bony margins of the paranasal sinuses. No acute osseous abnormality. There is hyperostosis frontalis interna. The ethmoid skull base is intact with slight asymmetry of the cribriform plate. The olfactory fossae measure 6-7 mm in-depth, both meeting criteria for Keros II classification. The bony canals of the optic nerves and [...] disease. 5. Additional findings, as detailed above. [facility]NAL documented in this encounter Visit Diagnoses Diagnosis Recurrent sinus infections- Primary Unspecified sinusitis (chronic) Recurrent sinus infections Unspecified sinusitis (chronic) documented in this encounter Care Teams Gambling Dealer Relationship Specialty Start Date End Date Latasha Thompson-MD Chandan PCP - General Internal Medicine 06/04/14 01/20/22 Kathy Christopher MD [address] [place] [address] PCP - General Internal Medicine 01/21/22 Kameron Zuñiga MD Vest Busheler Cardiovascular Disease 08/04/21 Katya Lopez NP Cardiology 08/04/21 01/30/24 Be Pacheco NP [address] [place] [address] Nurse Practitioner Cardiology 10/17/22 01/30/24 Maycol Infante MD [address] [place] [address] Specialist Pulmonology 10/19/22 Sebastian Martinez MD [address] [place], [place] [address] Specialist Ophthalmology 03/21/23 Eve Juan MD [address] [place] [address] [place] [address] Specialist UROGYNECOLOGY 03/21/23 Elisa Romero NP [address] [place] [address] [place] [address] Cardiology 01/31/24 Marcus Murcia DO [address] [place] [address] [place] [address] Specialist Physiatry 03/26/24 documented as of this encounter
--- OUTSIDE RECORDS SUMMARY | 2025-02-15 13:00 | XMS_ITS | Encounter Summary ---
Author Organization [facility] Address [address] [place] [address] Care Team Providers Care School Bus Attendant Name Role Phone Wiley Thompson MD Primary Care Provider Kameron Cornejo MD Unavailable Katya Lopez NP Unavailable Unavailab Kathy Haley MD Primary Care Prov ider Be Pacheco NP Unavailable [phone] Maycol Infante MD Unavailable Unavailable Sebastian Martinez MD Unavailable UnavailEve Blackmon MD Unavailable Elisa Romero NP Unavailable [phone] Marcus Murcia DO Unavailable Unavailable Reason for Visit * Reason Comments E-prescribe Rx Request Encounter Details Date Type Department Care Team Description 06/25/2017 Refill Adult Medicine [address] [address] Leilani Colindres APRN E-prescribe Rx Request Social [...] NO Patients current insurance carrier is: Payor: [facility] MCR / Plan: O $0 [facility] [id number] / Product Type: HMO [id number] documented in this encounter Plan of Treatment Not on file documented as of this encounter Visit Diagnoses Not on filedocumented in this encounter Care Teams School Bus Attendant Relationship Specialty Start Date End Date Wiley Thompson MD PCP - General Internal Medicine 06/04/14 01/20/22 Trina Rizo, Kathy Fried MD [address] [place] [address] PCP - General Internal Medicine 01/21/22 Kameron Zuñiga MD Application Architect Cardiovascular Disease 08/04/21 Katya Lopez NP Cardiology 08/04/21 01/30/24 Be Pacheco NP [address] [place] [address] Nurse Practitioner Cardiology 10/17/22 01/30/24 Maycol Infante MD [address] [place] [address] Specialist Pulmonology 10/19/22 Sebastian Martinez MD [address] [place], [place] [address] Specialist Ophthalmology 03/21/23 Eve Juan MD [address] [place] [address] [place] [address] Specialist UROGYNECOLOGY 03/21/23 Elisa Romero NP [address] [place] [address] [place] [address] Cardiology 01/31/24 Marcus Murcia DO [address] [place] [address] [place] [address] Specialist Physiatry 03/26/24 documented as of this encounter
--- OUTSIDE RECORDS SUMMARY | 2025-02-15 13:00 | XMS_ITS | Encounter Summary ---
Author Organization [facility] Address [address] [place] [address] Care Team Providers Care Director Of Real Estate Name Role Phone Wiley Thompson MD Primary Care Provider Kameron Cornejo MD Unavailable Katya Lopez NP Unavailable Unavailab Kathy Haley MD Primary Care Prov ider Be Pacheco NP Unavailable [phone] Maycol Infante MD Unavailable Unavailable Sebastian Martinez MD Unavailable UnavailEve Blackmon MD Unavailable Elisa Romero NP Unavailable [phone] Marcus Murcia DO Unavailable Unavailable Reason for Visit * Reason Comments E-prescribe Rx Request Encounter Details Date Type Department Care Team Description 08/15/2017 Refill Adult Medicine [address] [address] Wiley Thompson MD E-prescribe Rx Request Social [...] NO Patients current insurance carrier is: Payor: [facility] MCR / Plan: [employer] [facility]0 [facility] [id number] / Product Type: IncapO [id number] documented in this encounter Plan of Treatment Not on file documented as of this encounter Visit Diagnoses Not on filedocumented in this encounter Care Teams Director Of Real Estate Relationship Specialty Start Date End Date Wiley Thompson MD PCP - General Internal Medicine 06/04/14 01/20/22 Kathy Christopher MD [address] [place] [address] PCP - General Internal Medicine 01/21/22 Kameron Zuñiga MD Accountant Assistant Cardiovascular Disease 08/04/21 Katya Lopez NP Cardiology 08/04/21 01/30/24 Be Pacheco NP [address] [place] [address] Nurse Practitioner Cardiology 10/17/22 01/30/24 Maycol Infante MD [address] [place] [address] Specialist Pulmonology 10/19/22 Sebastian Martinez MD [address] [place] [address] Specialist Ophthalmology 03/21/23 Eve Juan MD [address] [place] [address] [place] [address] Specialist UROGYNECOLOGY 03/21/23 Elisa Romero NP [address] [place] [address] [place] [address] Cardiology 01/31/24 Marcus Murcia DO [address] [place] [address] [place] [address] Specialist Physiatry 03/26/24 documented as of this encounter
--- OUTSIDE RECORDS SUMMARY | 2025-02-15 13:00 | XMS_ITS | Encounter Summary ---
Author Organization [facility] Address [address] [place] [address] Care Team Providers Care Production Floater Name Role Phone Kathy Perez MD Primary Care Prov ider Encounter Details Date Type Department Care Team ([facility] st Contact Info) Description 01/23/2025 Telephone Adult Medicine [address] [phone] Ana Conte RN Social History Tobacco Use Types Packs/Day Years [...] for your loved ones. For example, child life therapist or elderly care for an older adult? [...] Progress Notes * Ana Conte RN - 01/23/2025 11:30 AM EDT Spoke to pt. Requested by provider. She states she is having a 10/10 headache left side and neck pain. The neck pain increases with head movement . The headache has been ongoing for over a week , no left sided weakness but is having left eye changes and blurriness, no c/o fever or chills, no cp or sob . She is feeling increase fatigue . She had a recent c-t scan of the head which was negative . Iadvised ER evaluation for 10/10 left sided headache. Pt. Agrees documented in this encounter Plan of Treatment Upcoming Encounters Date Type Department Care Team (Late st Contact Info) Description 03/04/2025 1:15 PM EDT Office Visit Adult Medicine [address] [phone] Lizzie Pisano PA [address] [place] [address] documented as of this encounter Visit Diagnoses Not on filedocumented in this encounter Care Teams Production Floater Relationship Specialty Start Date End Date Kathy Perez MD [address] [place] [address] PCP - General Internal Medicine 07/22/24 documented as of this encounter
--- OUTSIDE RECORDS SUMMARY | 2025-02-15 13:00 | XMS_ITS | Encounter Summary ---
Author Organization [facility] Address [address] [place] [address] Care Team Providers Care Field Crop Technical Officer Name Role Phone Wiley Thompson MD Primary Care Provider Kameron Cornejo MD Unavailable Katya Lopez NP Unavailable Unavailab Kathy Haley MD Primary Care Prov ider Be Pacheco NP Unavailable [phone] Maycol Infante MD Unavailable Unavailable Sebastian Martinez MD Unavailable UnavailEve Blackmon MD Unavailable Elisa Romero NP Unavailable [phone] Marcus Murcia DO Unavailable Unavailable Reason for Visit * Reason Onset Date Comments Faxed Refill 09/14/2017 Encounter Details Date Type Department Care Team Description 09/14/2017 Refill Adult Medicine [address] [address] Wiley Thompson MD Faxed Refill Social History [...] NO Patients current insurance carrier is: Payor: [facility] MCR / Plan: ActiveGift $0 [id number] / Product Type: [employer]O [id number] documented in this encounter Plan of Treatment Not on file documented as of this encounter Visit Diagnoses Not on filedocumented in this encounter Care Teams Field Crop Technical Officer Relationship Specialty Start Date End Date Wiley Thompson MD PCP - General Internal Medicine 06/04/14 01/20/22 Kathy Christopher MD [address] [place] [address] PCP - General Internal Medicine 01/21/22 Kameron Zuñiga MD Revenue Enforcement Collection Agent Cardiovascular Disease 08/04/21 Katya Lopez NP Cardiology 08/04/21 01/30/24 Be Pacheco NP [address] [place] [address] Nurse Practitioner Cardiology 10/17/22 01/30/24 Maycol Infante MD [address] [place] [address] Specialist Pulmonology 10/19/22 Sebastian Martinez MD [address] [place] [address] Specialist Ophthalmology 03/21/23 Eve Juan MD [address] [place] [address] [place] [address] Specialist UROGYNECOLOGY 03/21/23 Elisa Romero NP [address] [place] [address] [place] [address] Cardiology 01/31/24 Marcus Murcia DO [address] [place] [address] [place] [address] Specialist Physiatry 03/26/24 documented as of this encounter
--- OUTSIDE RECORDS SUMMARY | 2025-02-15 13:00 | XMS_ITS | Encounter Summary ---
Author Organization [facility] Address [address] [place] [address] Care Team Providers Care Campaign Marketing Specialist Name Role Phone Kameron Zuñiga MD Unavailable Katya Lopez NP Unavailable Unavailab Kathy Haley MD Primary Care Prov ider Be Pahceco NP Unavailable [phone] Maycol Infante MD Unavailable Unavailable Sebastian Martinez MD Unavailable UnavailEve Blackmon MD Unavailable Elisa Romero NP Unavailable [phone] Marcus Murcia DO Unavailable Unavailable Encounter Details Date Type Department Care Team Description 09/11/2023 Walk In Clinic Visit Medical Records [address] [place] [phone] [place] [address], [facility] [address]-In [address] [place] [address] Social History Tobacco Use Types Packs/Day Years [...] on filedocumented in this encounter Care Teams Campaign Marketing Specialist Relationship Specialty Start Date End Date Kathy Christopher MD [address] [place] [address] PCP - General Internal Medicine 01/21/22 Kameron Zuñiga MD Plumbers And Top [employer]pers Cardiovascular Disease 08/04/21 Katya Lopez NP Cardiology 08/04/21 01/30/24 Be Pacheco NP [address] [place] [address] Nurse Practitioner Cardiology 10/17/22 01/30/24 Maycol Infante MD [address] [place] [address] Specialist Pulmonology 10/19/22 Sebastian Martinez MD [address] [place], [place] [phone] Specialist Ophthalmology 03/21/23 Eve Juan MD [address] [place] [address] [place] [address] Specialist UROGYNECOLOGY 03/21/23 Elisa Romero NP [address] [place] [address] [place] [address] Cardiology 01/31/24 Marcus Murcia DO [address] [place] [address] [place] [address] Specialist Physiatry 03/26/24 documented as of this encounter
--- OUTSIDE RECORDS SUMMARY | 2025-02-15 13:00 | XMS_ITS | Encounter Summary ---
Author Organization [facility] Address [address] [place] [address] Care Team Providers Care Movie Projectionist Name Role Phone Wiley Thompson MD Primary Care Provider Kameron Cornejo MD Unavailable Katya Lopez NP Unavailable Unavailab Kathy Haley MD Primary Care Prov ider Be Pacheco NP Unavailable [phone] Maycol Infante MD Unavailable Unavailable Sebastian Martinez MD Unavailable UnavailEve Blackmon MD Unavailable Elisa Romero NP Unavailable [phone] Marcus Murcia DO Unavailable Unavailable Encounter Details Date Type Department Care Team Description 12/15/2017 Orders Only Adult Medicine [address] [id number] Wiley Thompson MD Preoperative examination; Screening for [...] 100 mg/dL 12/26/2017 5:44 PM EDT [facility] Comment:Reference range appl icable to fasting specimens only Blood Urea Nitrogen 9 5 - 25 mg/dL 12/26/2017 5:44 PM EDT [facility]AT 1.02 0.5 - 1.1 mg/dL 12/26/2017 5:44 PM EDT [facility] GLOMERULAR FILTRATION RATE 53 12/26/2017 5:44 PM EDT [facility] Comment: If patient is -[place], multiply result by 1.21 Chronic Kidney Disease: < 60 ml/min/1.73 square meters Kidney Failure: < 15 ml/min/1.73 square meters NA 144 133 - 145 mmol/L 12/26/2017 5:44 PM EDT [facility] K 4.4 3.5 - 5.5 mmol/L 12/26/2017 5:44 PM EDT [facility] CL 106 96 - 110 mmol/L 12/26/2017 5:44 PM EDT [facility] CARBON DIOXIDE (CO2) 29 21 - 32 mmol/L 12/26/2017 5:44 PM EDT [facility] ANION GAP 9 3 - 11 12/26/2017 5:44 PM EDT [facility] CALCIUM 9.2 8.5 - 10.5 mg/dL 12/26/2017 5:44 PM EDT [facility] 12/26/2017 1:43 PM EDT 12/26/2017 1:44 PM EDT Wiley Thompson MD LAB [facility] [employer] * (ABNORMAL) CBC (AUTO DIFF PLATELET) (12/26/2017 1:43 PM EDT) Pathologist [facility] WBC 6.9 4.8 - 10.8 x10-3 12/26/2017 1:59 PM EDT [facility] RBC 3.9 3.8 - 4.8 x10-6 12/26/2017 1:59 PM EDT [facility] HGB 11.8 11.5 - [...] Wiley Thompson MD LAB Performing Organization Address City/State/[facility] Co de Phone Number [facility] [address] [place] [address] documented in this encounter Visit Diagnoses Diagnosis Preoperative examination Preoperative examination, unspecified Screening for deficiency anemia Screening for other and unspecified deficiency anemia documented in this encounter Care Teams Movie Projectionist Relationship Specialty Start Date End Date Wiley Thompson MD PCP - General Internal Medicine 06/04/14 01/20/22 Kathy Christopher MD [address] [place] [address], [place] [address] PCP - General Internal Medicine 01/21/22 Kameorn Zuñiga MD Mirror Specialist Cardiovascular Disease 08/04/21 Katya Lopez NP Cardiology 08/04/21 01/30/24 Be Pacheco NP [address] [place] [address] Nurse Practitioner Cardiology 10/17/22 01/30/24 Maycol Infante MD [address] [place] [address] Specialist Pulmonology 10/19/22 Sebastian Martinez MD [address] [place] [address] Specialist Ophthalmology 03/21/23 Eve Juan MD [address] [place] [address] [place] [address] Specialist UROGYNECOLOGY 03/21/23 Elisa Romero NP [address] [place] [address] [place] [address] Cardiology 01/31/24 Marcus Murcia DO [address] [place] [address] [place] [address] Specialist Physiatry 03/26/24 documented as of this encounter
--- OUTSIDE RECORDS SUMMARY | 2025-02-15 13:00 | XMS_ITS | Encounter Summary ---
Author Organization [facility] Address [address] [place] [address] Care Team Providers Care Toys Inspector Name Role Phone Wiley Thompson MD Primary Care Provider Kameron Cornejo MD Unavailable Katya Lopez NP Unavailable Unavailab Kathy Christopher MD Primary Care Prov ider Be Pacheco NP Unavailable [phone] Maycol Infante MD Unavailable Unavailable Sebastian Martinez MD Unavailable UnavailEve Blackmon MD Unavailable Elisa Romero NP Unavailable [phone] Marcus Murcia DO Unavailable Unavailable Encounter Details Date Type Department Care Team Description 11/20/2017 Release of Information Medical Records [address] [place] [address] Abstract, Provider Social History Tobacco Use Types [...] on filedocumented in this encounter Care Teams Toys Inspector Relationship Specialty Start Date End Date Wiley Thompson MD PCP - General Internal Medicine 06/04/14 01/20/22 Kathy Christopher MD [address] [place] [address] PCP - General Internal Medicine 01/21/22 Kameron Zuñiga MD Ironworker Helper Shop Cardiovascular Disease 08/04/21 Katya Lopez, IRMA Cardiology 08/04/21 01/30/24 Be Pacheco NP [address] [place] [address] Nurse Practitioner Cardiology 10/17/22 01/30/24 Maycol Infante MD [address] [place] [address] Specialist Pulmonology 10/19/22 Sebastian Martinez MD [address] [place] [address] Specialist Ophthalmology 03/21/23 Eve Juan MD [address] [place] [address] [place] [address] Specialist UROGYNECOLOGY 03/21/23 Elisa Romero NP [address] [place] [address] [place] [address] Cardiology 01/31/24 Marcus Murcia DO [address] [place] [address] [place] [address] Specialist Physiatry 03/26/24 documented as of this encounter
--- OUTSIDE RECORDS SUMMARY | 2025-02-15 13:01 | XMS_ITS | Encounter Summary ---
Author Organization [facility] Address [address] [place] [address] Care Team Providers Care Sawmill Production Worker Name Role Phone Kameron Zuñiga MD Unavailable Katya Lopez NP Unavailable Unavailab le Kathy Christopher MD Primary Care Prov ider Be Pacheco NP Unavailable [phone] Maycol Infante MD Unavailable Unavailable Sebastian Martinez MD Unavailable UnavailEve Blackmon MD Unavailable Elisa Romero NP Unavailable [phone] Marcus Murcia DO Unavailable Unavailable Encounter Details Date Type Department Care Team Description 09/26/2022 Hospital Medical Records [address] [place] [address] [facility] Social History Tobacco Use Types [...] on filedocumented in this encounter Care Teams Sawmill Production Worker Relationship Specialty Start Date End Date Kathy Christopher MD [address] [place] [address] [phone] PCP - General Internal Medicine 01/21/22 Kameron Zuñiga MD Sewing Machine Tester Cardiovascular Disease 08/04/21 Katya Lopez NP Cardiology 08/04/21 01/30/24 Be Pacheco NP [address] [place] [address] Nurse Practitioner Cardiology 10/17/22 01/30/24 Maycol Infante MD [address] [place] [address] Specialist Pulmonology 10/19/22 Sebastian Martinez MD [address] [place] [address] Specialist Ophthalmology 03/21/23 Eve Juan MD [address] [place] [address] [place] [address] Specialist UROGYNECOLOGY 03/21/23 Elisa Romero NP [address] [place] [address] [place] [address] Cardiology 01/31/24 Marcus Murcia DO [address] [place] [address] [place] [address] Specialist Physiatry 03/26/24 documented as of this encounter
--- OUTSIDE RECORDS SUMMARY | 2025-02-15 13:01 | XMS_ITS | Encounter Summary ---
Author Organization [facility] Address [address] [place] [address] Care Team Providers Care Shoe Stitcher Name Role Phone Kameron Zuñiga MD Unavailable Kathy Christopher MD Primary Care Prov ider Maycol Infante MD Unavailable Unavailable Sebastian Martinez MD Unavailable UnavailEve Blackmon MD Unavailable Elisa Romero NP Unavailable [phone] Marcus Murcia DO Unavailable Unavailable Encounter Details Date Type Department Care Team Description 03/06/2024 Shipping Coordinator Report Medical Records [address] [place] [address] Pierre Oliva PA-C Social History Tobacco Use [...] filedocumented in this encounter Care Teams Shoe Stitcher Relationship Specialty Start Date End Date Kathy Christopher MD [address] [place] [address] PCP - General Internal Medicine 01/21/22 Kameron Zuñiga MD Director Of Campus Recreation Cardiovascular Disease 08/04/21 Maycol Infante MD [address] [place] [address] Specialist Pulmonology 10/19/22 Sebastian Martinez MD [address] [place] [address] Specialist Ophthalmology 03/21/23 Eve Juan MD [address] [place] [address] [place] [address] Specialist UROGYNECOLOGY 03/21/23 Elisa Romero NP [address] [place] [address] [place] [address] Cardiology 01/31/24 Marcus Murcia DO [address] [place] [address] [place] [address] Specialist Physiatry 03/26/24 documented as of this encounter
--- OUTSIDE RECORDS SUMMARY | 2025-02-15 13:01 | XMS_ITS | Encounter Summary ---
Author Organization [facility] Address [address] [place] [address] Care Team Providers Care Supply Coordinator Name Role Phone Bri Santacruz MD Primary Care Provider Unavailable Wiley Thompson MD Primary Care Provider Kameron Cornejo MD Unavailable Katya Lopez NP Unavailable Unavailab Kathy Haley MD Primary Care Prov ider Be Pacheco NP Unavailable [phone] Maycol Infante MD Unavailable Unavailable Sebastian Martinez MD Unavailable UnavailEve Blackmon MD Unavailable Elisa Romero NP Unavailable [phone] Marcus Murcia DO Unavailable Unavailable Reason for Visit * Reason Onset Date Comments APPOINTMENT 09/25/2013 Encounter Details Date Type Department Care Team Description 09/25/2013 Telephone Physiatry - [address] [phone] Zahraa Zhang MD [address] [place] [address] [place] [address] APPOINTMENT Social History Tobacco Use Types Packs/Day [...] on filedocumented in this encounter Care Teams Supply Coordinator Relationship Specialty Start Date End Date Bri Santacruz MD PCP - General Internal Medicine 04/23/12 06/03/14 Wiley Thompson MD PCP - General Internal Medicine 06/04/14 01/20/22 Kathy Christopher MD [address] [place] [address] PCP - General Internal Medicine 01/21/22 Kameron Zuñiga MD Automotive Warranty Administrator Cardiovascular Disease 08/04/21 Katya Lopez NP Cardiology 08/04/21 01/30/24 Be Pacheco NP [address] [place] [address] Nurse Practitioner Cardiology 10/17/22 01/30/24 Maycol Infante MD [address] [place], [place] [address] Specialist Pulmonology 10/19/22 Sebastian Martinez MD [address] [place] [address] Specialist Ophthalmology 03/21/23 Eve Juan MD [address] [place] [address] [place] [address] Specialist UROGYNECOLOGY 03/21/23 Elisa Romero NP [address] [place] [address] [place] [address] Cardiology 01/31/24 Marcus Murcia DO [address] [place] [address] [place] [address] Specialist Physiatry 03/26/24 documented as of this encounter
--- OUTSIDE RECORDS SUMMARY | 2025-02-15 13:01 | XMS_ITS | Encounter Summary ---
Author Organization [facility] Address [address] [place] [address] Care Team Providers Care Claim Inspector Name Role Phone Wiley Thompson MD Primary Care Provider Kameron Cornejo MD Unavailable Katya Lopez NP Unavailable Unavailab Kathy Haley MD Primary Care Prov ider Be Pacheco NP Unavailable [phone] Maycol Infante MD Unavailable Unavailable Sebastian Martinez MD Unavailable UnavailEve Blackmon MD Unavailable Elisa Romero NP Unavailable [phone] Marcus Murcia DO Unavailable Unavailable Encounter Details Date Type Department Care Team Description 03/17/2020 Internet Site Designer Report Medical Records [address] [place] [address] Kameron Zuñiga MD [address] [place] [address] [phone] Social History Tobacco Use Types Packs/Day Years [...] on filedocumented in this encounter Care Teams Claim Inspector Relationship Specialty Start Date End Date Wiley Thompson MD PCP - General Internal Medicine 06/04/14 01/20/22 Trina Rizo, Kathy Fried MD [address] [place] [address] PCP - General Internal Medicine 01/21/22 Kameron Zuñiga MD Handle Attacher Cardiovascular Disease 08/04/21 Katya Lopez NP Cardiology 08/04/21 01/30/24 Be Pacheco NP [address] [place] [address] Nurse Practitioner Cardiology 10/17/22 01/30/24 Maycol Infante MD [address] [place] [address] Specialist Pulmonology 10/19/22 Sebastian Martinez MD [address] [place] [address] Specialist Ophthalmology 03/21/23 Eve Juan MD [address] [place] [address] [place] [address] Specialist UROGYNECOLOGY 03/21/23 Elisa Romero NP [address] [place] [address] [place] [address] Cardiology 01/31/24 Marcus Murcia DO [address] [place] [address] [place] [address] Specialist Physiatry 03/26/24 documented as of this encounter
--- OUTSIDE RECORDS SUMMARY | 2025-02-15 13:01 | XMS_ITS | Patient Health Record ---
Author Organization [facility] Address [address] [place] [address] Care Team Providers Care Training Assistant Name Role Phone Narciso MITTAL, Yomi Primary Care Provider Deion Melendrez Unavailable [phone] Reason For Referral No Information Medications Medication [...] OF [place] [address] [place] [address] CARLOS ADHIKARI Self - patient is the insured MEDICAID OF [facility] [address] [place] [address] CARLOS ADHIKARI Self - patient is the insured
--- OUTSIDE RECORDS SUMMARY | 2025-02-15 13:01 | XMS_ITS | Encounter Summary ---
Author Organization [facility] Address [address] [place] [address] Care Team Providers Care Care Partner Name Role Phone Wiley Thompson MD Primary Care Provider Kameron Cornejo MD Unavailable Katya Lopez NP Unavailable Unavailab Kathy Haley MD Primary Care Prov ider Be Pacheco NP Unavailable [phone] Maycol Infante MD Unavailable Unavailable Sebastian Martinez MD Unavailable UnavailEve Blackmon MD Unavailable Elisa Romero NP Unavailable [phone] Marcus Murcia DO Unavailable Unavailable Reason for Visit * Reason Onset Date Comments refill request 08/01/2018 Encounter Details Date Type Department Care Team Description 08/01/2018 Refill Adult Medicine [address] [address] Wiley Thompson MD refill request Social History [...] N/A Patients current insurance carrier is: Payor: [facility] MCR / Plan: O $0 [facility] [id number] / Product Type: HMO [id number] documented in this encounter Plan of Treatment Not on file documented as of this encounter Visit Diagnoses Not on filedocumented in this encounter Care Teams Care Partner Relationship Specialty Start Date End Date Wiley Thompson MD PCP - General Internal Medicine 06/04/14 01/20/22 Kathy Christopher MD [address] [place] [address] PCP - General Internal Medicine 01/21/22 Kameron Zuñiga MD Petroleum Analyst Cardiovascular Disease 08/04/21 Katya Lopez NP Cardiology 08/04/21 01/30/24 Be Pacheco NP [address] [place] [address] Nurse Practitioner Cardiology 10/17/22 01/30/24 Maycol Infante MD [address] [place] [address] Specialist Pulmonology 10/19/22 Sebastian Martinez MD [address] [place], [place] [address] Specialist Ophthalmology 03/21/23 Eve Juan MD [address] [place] [address] [place] [address] Specialist UROGYNECOLOGY 03/21/23 Elisa Romero NP [address] [place] [address] [place] [address] Cardiology 01/31/24 Marcus Murcia DO [address] [place] [address] [place] [address] Specialist Physiatry 03/26/24 documented as of this encounter
--- OUTSIDE RECORDS SUMMARY | 2025-02-15 13:01 | XMS_ITS | Encounter Summary ---
Author Organization [facility] Address [address] [place] [address] Care Team Providers Care Sql Report Analyst Name Role Phone Wiley Thompson MD Primary Care Provider Kameron Cornejo MD Unavailable Katya Lopez NP Unavailable Unavailab Kathy Christopher MD Primary Care Prov ider Be Pacheco NP Unavailable [phone] Maycol Infante MD Unavailable Unavailable Sebastian Martinez MD Unavailable UnavailEve Blackmon MD Unavailable Elisa Romero NP Unavailable [phone] Marcus Murcia DO Unavailable Unavailable Encounter Details Date Type Department Care Team Description 07/30/2014 Controlled Substance Plan Medical Records [address] [place] [address] Abstract, Provider Social History Tobacco Use Types [...] on filedocumented in this encounter Care Teams Sql Report Analyst Relationship Specialty Start Date End Date Wiley Thompson MD PCP - General Internal Medicine 06/04/14 01/20/22 Kathy Christopher MD [address] [place] [address] PCP - General Internal Medicine 01/21/22 Kameron Zuñiga MD Freelance Writer Cardiovascular Disease 08/04/21 Katya Lopez NP Cardiology 08/04/21 01/30/24 Be Pacheco NP [address] [place] [address] Nurse Practitioner Cardiology 10/17/22 01/30/24 Maycol Infante MD [address] [place] [address] Specialist Pulmonology 10/19/22 Sebastian Martinez MD [address] [place], [place] [address] Specialist Ophthalmology 03/21/23 Eve Juan MD [address] [place] [address] [place] [address] Specialist UROGYNECOLOGY 03/21/23 Elisa Romero NP [address] [place] [address] [place] [address] Cardiology 01/31/24 Marcus Murcia DO [address] [place] [address] [place] [address] Specialist Physiatry 03/26/24 documented as of this encounter
--- OUTSIDE RECORDS SUMMARY | 2025-02-15 13:01 | XMS_ITS | Encounter Summary ---
Author Organization [facility] Address [address] [place] [address] Care Team Providers Care Entry Level Account Representative Name Role Phone Wiley Thompson MD Primary Care Provider Kameron Cornejo MD Unavailable Katya Lopez NP Unavailable Unavailab Kathy Haley MD Primary Care Prov ider Be Pacheco NP Unavailable [phone] Maycol Infante MD Unavailable Unavailable Sebastian Martinez MD Unavailable UnavailEve Blackmon MD Unavailable Elisa Romero NP Unavailable [phone] Marcus Murcia DO Unavailable Unavailable Encounter Details Date Type Department Care Team Description 06/15/2020 Hospital Medical Records [address] [place] [address] Christophe Sharp MD [address] [place] [address] [id number] Social History Tobacco Use Types Packs/Day Years [...] in this encounter Care Teams Entry Level Account Representative Relationship Specialty Start Date End Date Wiley Thompson MD PCP - General Internal Medicine 06/04/14 01/20/22 Trina Rizo, Kathy Fried MD [address] [place] [address] 24192 PCP - General Internal Medicine 01/21/22 Kameron Zuñiga MD Hot Dog Vendor Cardiovascular Disease 08/04/21 Katya Lopez NP Cardiology 08/04/21 01/30/24 Be Pacheco NP [address] [place] [address] 13071 Nurse Practitioner Cardiology 10/17/22 01/30/24 Maycol Infante MD [address] [place] [address] 55920 Specialist Pulmonology 10/19/22 Sebastian Martinez MD [address] [place], [place] [phone] Specialist Ophthalmology 03/21/23 Eve Juan MD [address] [place] [address] [place] [address] Specialist UROGYNECOLOGY 03/21/23 Elisa Romero NP [address] [place] [address] [place] [address] Cardiology 01/31/24 Marcus Murcia DO [address] [place] [address] [place] [address] Specialist Physiatry 03/26/24 documented as of this encounter
--- OUTSIDE RECORDS SUMMARY | 2025-02-15 13:01 | XMS_ITS | Encounter Summary ---
Author Organization [facility] Address [address] [place] [address] Care Team Providers Care Mine Captain Name Role Phone Wiley Thompson MD Primary Care Provider Kameron Cornejo MD Unavailable Katya Lopez SERVICES REP Unavailable Unavailab Kathy Christopher MD Primary Care Prov ider Be Pacheco NP Unavailable [phone] Maycol Infante MD Unavailable Unavailable Sebastian Martinez MD Unavailable UnavailEve Blackmon MD Unavailable Elisa Romero NP Unavailable [phone] Marcus Murcia DO Unavailable Unavailable Encounter Details Date Type Department Care Team Description 12/26/2019 Clinical Appeals Auditor Report Medical Records [address] [place] [address] Maycol Infante MD Social History Tobacco Use [...] on filedocumented in this encounter Care Teams Mine Captain Relationship Specialty Start Date End Date Wiley Thompson MD PCP - General Internal Medicine 06/04/14 01/20/22 Kathy Christopher MD [address] [place] [address] 62255 PCP - General Internal Medicine 01/21/22 Kameron Zuñiga MD Emts Cardiovascular Disease 08/04/21 Katya Lopez, IRMA Cardiology 08/04/21 01/30/24 Be Pacheco NP [address] [place] [address] 56423 Nurse Practitioner Cardiology 10/17/22 01/30/24 Maycol Infante MD [address] [place] [address] 35819 Specialist Pulmonology 10/19/22 Sebastian Martinez MD [address] [place] [address] 49339 Specialist Ophthalmology 03/21/23 Eve Juan MD [address] [place] [address] [place] [address] Specialist UROGYNECOLOGY 03/21/23 Elisa Romero NP [address] [place] [address] [place] [address] Cardiology 01/31/24 Marcus Murcia DO [address] [place] [address] [place] [address] Specialist Physiatry 03/26/24 documented as of this encounter
--- OUTSIDE RECORDS SUMMARY | 2025-02-15 13:01 | XMS_ITS | Encounter Summary ---
Author Organization [facility] Address [address] [place] [address] Care Team Providers Care Administrative Specialist Name Role Phone Wiley Thompson MD Primary Care Provider Kameron Cornejo MD Unavailable Katya Lopez NP Unavailable Unavailab Kathy Christopher MD Primary Care Prov ider Be Pacheco NP Unavailable [phone] Maycol Infante MD Unavailable Unavailable Sebastian Martinez MD Unavailable UnavailEve Blackmon MD Unavailable Elisa Romero NP Unavailable [phone] Marcus Murcia DO Unavailable Unavailable Encounter Details Date Type Department Care Team Description 11/23/2015 Transfer Records Medical Records [address] [place] [address] Abstract, Provider Social History Tobacco Use Types [...] on filedocumented in this encounter Care Teams Administrative Specialist Relationship Specialty Start Date End Date Wiley Thompson MD PCP - General Internal Medicine 06/04/14 01/20/22 Kathy Christopher MD [address] [place] [address] 56106 PCP - General Internal Medicine 01/21/22 Kameron Zuñiga MD Five Roll Refiner Batch Mixer Cardiovascular Disease 08/04/21 Katya Lopez NP Cardiology 08/04/21 01/30/24 Be Pacheco NP [address] [place] [address] 32684 Nurse Practitioner Cardiology 10/17/22 01/30/24 Maycol Infante MD [address] [place] [address] 20030 Specialist Pulmonology 10/19/22 Sebastian Martinez MD [address] [place] [address] 30085 Specialist Ophthalmology 03/21/23 Eve Juan MD [address] [place] [address] [place] [address] Specialist UROGYNECOLOGY 03/21/23 Elisa Romero NP [address] [place] [address] [place] [address] Cardiology 01/31/24 Marcus Murcia DO [address] [place] [address] [place] [address] Specialist Physiatry 03/26/24 documented as of this encounter
--- OUTSIDE RECORDS SUMMARY | 2025-02-15 13:01 | XMS_ITS | Encounter Summary ---
Author Organization [facility] Address [address] [place] [address] Care Team Providers Care Taxi Truck Driver Name Role Phone Kameron Zuñiga MD Unavailable Katya Lopez NP Unavailable Unavailab le Kathy Christopher MD Primary Care Prov ider Be Pacheco NP Unavailable [phone] Maycol Infante MD Unavailable Unavailable Sebastian Martinez MD Unavailable UnavailEve Blackmon MD Unavailable Elisa Romero NP Unavailable [phone] Marcus Murcia DO Unavailable Unavailable Encounter Details Date Type Department Care Team Description 01/22/2024 Sap Technical Developer Report Medical Records [address] [place] [address] 265[address] Pierre Oliva, PAAdelaidaC Social History Tobacco Use [...] on filedocumented in this encounter Care Teams Taxi Truck Driver Relationship Specialty Start Date End Date Kathy Christopher MD [address] [place] [address] [id number] PCP - General Internal Medicine 01/21/22 Kameron Zuñiga MD Corpsman Cardiovascular Disease 08/04/21 Katya Lopez NP Cardiology 08/04/21 01/30/24 Be Pacheco NP [address] [place] [address] 84509 Nurse Practitioner Cardiology 10/17/22 01/30/24 Maycol Infante MD [address] [place] [address] 23642 Specialist Pulmonology 10/19/22 Sebastian Martinez MD [address] [place] [address] Specialist Ophthalmology 03/21/23 Eve Juan MD [address] [place] [address] [place] [address] Specialist UROGYNECOLOGY 03/21/23 Elisa Romero NP [address] [place] [address] [place] [address] Cardiology 01/31/24 Marcus Murcia DO [address] [place] [address] [place] [address] Specialist Physiatry 03/26/24 documented as of this encounter
--- OUTSIDE RECORDS SUMMARY | 2025-02-15 13:01 | XMS_ITS | Encounter Summary ---
Author Organization [facility] Address [address] [place] [address] Care Team Providers Care Lather Apprentice Name Role Phone Wiley Thompson MD Primary Care Provider Kameron Cornejo MD Unavailable Katya Lopez NP Unavailable Unavailab Kathy Haley MD Primary Care Prov ider Be Pacheco NP Unavailable Maycol Infante MD Unavailable Unavailable Sebastian Martinez MD Unavailable UnavailEve Blackmon MD Unavailable Elisa Romero NP Unavailable [phone] Marcus Murcia DO Unavailable Unavailable Reason for Visit * Reason Onset Date Comments Medication 06/08/2020 colon Encounter Details Date Type Department Care Team Description 06/08/2020 Refill Gastroenterology - [place] [address] [facility] [address] [place] [address] Christophe Sharp MD [address] [place] [address] [phone] Medication (colon) Social History Tobacco Use Types [...] on filedocumented in this encounter Care Teams Lather Apprentice Relationship Specialty Start Date End Date Wiley Thompson MD PCP - General Internal Medicine 06/04/14 01/20/22 Kathy Christopher MD [address] [place] [address] 68356 PCP - General Internal Medicine 01/21/22 Kameron Zuñiga MD Sanitary Landfill Supervisor Cardiovascular Disease 08/04/21 Katya Lopez NP Cardiology 08/04/21 01/30/24 Be Pacheco NP [address] [place] [address] 98243 Nurse Practitioner Cardiology 10/17/22 01/30/24 Maycol Infante MD [address] [place] [address] 40855 Specialist Pulmonology 10/19/22 Sebastian Martinez MD [address] [place] [address] 23679 Specialist Ophthalmology 03/21/23 Eve Juan MD [address] [place] [address] [place] [address] Specialist UROGYNECOLOGY 03/21/23 Elisa Romero NP [address] [place] [address] [place] [address] Cardiology 01/31/24 Marcus Murcia DO [address] [place] [address] [place] [address] Specialist Physiatry 03/26/24 documented as of this encounter
--- OUTSIDE RECORDS SUMMARY | 2025-02-15 13:01 | XMS_ITS | Encounter Summary ---
Author Organization [facility] Address [address] [place] [address] Care Team Providers Care Computer Laboratory Technician Name Role Phone Wiley Thompson MD Primary Care Provider Kameron Cornejo MD Unavailable Katya Lopez NP Unavailable Unavailab Kathy Haley MD Primary Care Prov ider Be Pacheco NP Unavailable [phone] Maycol Infante MD Unavailable Unavailable Sebastian Martinez MD Unavailable UnavailEve Blackmon MD Unavailable Elisa Romero NP Unavailable [phone] Marcus Murcia DO Unavailable Unavailable Encounter Details Date Type Department Care Team Description 05/30/2018 Orders Only Medical Records [address] [place] [address] Talia Coleman PA-C [address] [place], [place] [phone] Social History Tobacco Use Types Packs/Day Years [...] filedocumented in this encounter Care Teams Computer Laboratory Technician Relationship Specialty Start Date End Date Wiley Thompson MD PCP - General Internal Medicine 06/04/14 01/20/22 Kathy Christopher MD [address] [place], [place] [phone] PCP - General Internal Medicine 01/21/22 Kameron Zuñiga MD Solar Field Service Technician Cardiovascular Disease 08/04/21 Katya Lopez NP Cardiology 08/04/21 01/30/24 Be Pacheco NP [address] [place] [address] 73180 Nurse Practitioner Cardiology 10/17/22 01/30/24 Maycol Infante MD [address] [place] [address] 33445 Specialist Pulmonology 10/19/22 Sebastian Martinez MD [address] [place] [address] Specialist Ophthalmology 03/21/23 Eve Juan MD [address] [place] [address] [place] [address] Specialist UROGYNECOLOGY 03/21/23 Elisa Romero NP [address] [place] [address] [place] [address] Cardiology 01/31/24 Marcus Murcia DO [address] [place] [address] [place] [address] Specialist Physiatry 03/26/24 documented as of this encounter
--- OUTSIDE RECORDS SUMMARY | 2025-02-15 13:01 | XMS_ITS | Encounter Summary ---
Author Organization [facility] Address [address] [place] [address] Care Team Providers Care Mallet Cutter Name Role Phone Wiley Thompson MD Primary Care Provider Kameron Cornejo MD Unavailable Katya Lopez NP Unavailable Unavailab Kathy Haley MD Primary Care Prov ider Be Pacheco NP Unavailable [phone] Maycol Infante MD Unavailable Unavailable Sebastian Martinez MD Unavailable UnavailEve Blackmon MD Unavailable Elisa Romero NP Unavailable [phone] Marcus Murcia DO Unavailable Unavailable Reason for Visit * Reason Comments E-prescribe Rx Request Encounter Details Date Type Department Care Team Description 04/27/2020 Refill Adult Medicine [address] [address] Wiley Thompson MD E-prescribe Rx Request Social [...] N/A Patients current insurance carrier is: Payor: [facility] MCR / Plan: O $0 [facility] [id number] / Product Type: HMO [id number] documented in this encounter Plan of Treatment Not on file documented as of this encounter Visit Diagnoses Diagnosis CAD (coronary artery disease), [place] coronary artery Coronary atherosclerosis of [place] coronary artery documented in this encounter Care Teams Mallet Cutter Relationship Specialty Start Date End Date Wiley Thompson MD PCP - General Internal Medicine 06/04/14 01/20/22 Kathy Christopher MD [address] [place] [address] 13050 PCP - General Internal Medicine 01/21/22 Kameron Zuñiga MD Dowel Machine Operator Cardiovascular Disease 08/04/21 Katya Lopez NP Cardiology 08/04/21 01/30/24 Be Pacheco NP [address] [place] [address] 46274 Nurse Practitioner Cardiology 10/17/22 01/30/24 Maycol Infante MD [address] [place] [address] 79623 Specialist Pulmonology 10/19/22 Sebastian Martinez MD [address] [place], [place] [phone] Specialist Ophthalmology 03/21/23 Eve Juan MD [address] [place] [address] [place] [address] Specialist UROGYNECOLOGY 03/21/23 Elisa Romero NP [address] [place] [address] [place] [address] Cardiology 01/31/24 Marcus Murcia DO [address] [place] [address] [place] [address] Specialist Physiatry 03/26/24 documented as of this encounter
--- OUTSIDE RECORDS SUMMARY | 2025-02-15 13:01 | XMS_ITS | Encounter Summary ---
Author Organization [facility] Address [address] [place] [address] Care Team Providers Care Slip Maker Name Role Phone Wiley Thompson MD Primary Care Provider Kameron Cornejo MD Unavailable Katya Lopez NP Unavailable Unavailab Kathy Christopher MD Primary Care Prov ider Be Pacheco NP Unavailable [phone] Maycol Infante MD Unavailable Unavailable Sebastian Martinez MD Unavailable UnavailEve Blackmon MD Unavailable Elisa Romero NP Unavailable [phone] Marcus Murcia DO Unavailable Unavailable Encounter Details Date Type Department Care Team Description 02/06/2018 Podiatry Assistant Report Medical Records [address] [place] [address] 8[address]64 Abstract, Provider Social History Tobacco Use Types [...] on filedocumented in this encounter Care Teams Slip Maker Relationship Specialty Start Date End Date Wiley Thompson MD PCP - General Internal Medicine 06/04/14 01/20/22 Kathy Christopher MD [address] [place] [address] 11670 PCP - General Internal Medicine 01/21/22 Kameron Zuñiga MD Safety Scientist Cardiovascular Disease 08/04/21 Katya Lopez NP Cardiology 08/04/21 01/30/24 Be Pacheco NP [address] [place] [address] 69719 Nurse Practitioner Cardiology 10/17/22 01/30/24 Maycol Infante MD [address] [place] [address] 48920 Specialist Pulmonology 10/19/22 Sebastian Martinez MD [address] [place] [address] 90427 Specialist Ophthalmology 03/21/23 Eve Juan MD [address] [place] [address] [place] [address] Specialist UROGYNECOLOGY 03/21/23 Elisa Romero NP [address] [place] [address] [place] [address] Cardiology 01/31/24 Marcus Murcia DO [address] [place] [address] [place] [address] Specialist Physiatry 03/26/24 documented as of this encounter
--- OUTSIDE RECORDS SUMMARY | 2025-02-15 13:01 | XMS_ITS | Encounter Summary ---
Author Organization [facility] Address [address] [place] [address] Care Team Providers Care Customer Agent Name Role Phone Wiley Thompson MD Primary Care Provider Kameron Cornejo MD Unavailable Katya Lopez SWAGER OPERATOR Unavailable Unavailab Kathy Christopher MD Primary Care Prov ider Be Pacheco NP Unavailable [phone] Maycol Infante MD Unavailable Unavailable Sebastian Martinez MD Unavailable UnavailEve Blackmon MD Unavailable Elisa Romero NP Unavailable [phone] Marcus Murcia DO Unavailable Unavailable Encounter Details Date Type Department Care Team Description 11/19/2019 Electrical Estimator Report Medical Records [address] [place] [address] Maycol Infante MD Social History Tobacco Use [...] on filedocumented in this encounter Care Teams Customer Agent Relationship Specialty Start Date End Date Wiley Thompson MD PCP - General Internal Medicine 06/04/14 01/20/22 Kathy Christopher MD [address] [place] [address] 69443 PCP - General Internal Medicine 01/21/22 Kameron Zuñiga MD Track Sweeper Cardiovascular Disease 08/04/21 Katya Lopez, IRMA Cardiology 08/04/21 01/30/24 Be Pacheco NP [address] [place] [address] 82789 Nurse Practitioner Cardiology 10/17/22 01/30/24 Maycol Infante MD [address] [place] [address] 37517 Specialist Pulmonology 10/19/22 Sebastian Martinez MD [address] [place] [address] 73735 Specialist Ophthalmology 03/21/23 Eve Juan MD [address] [place] [address] [place] [address] Specialist UROGYNECOLOGY 03/21/23 Elisa Romero NP [address] [place] [address] [place] [address] Cardiology 01/31/24 Marcus Murcia DO [address] [place] [address] [place] [address] Specialist Physiatry 03/26/24 documented as of this encounter
--- OUTSIDE RECORDS SUMMARY | 2025-02-15 13:01 | XMS_ITS | Encounter Summary ---
Author Organization [facility] Address [address] [place] [address] Care Team Providers Care Elderly Caregiver Name Role Phone Kameron Zuñiga MD Unavailable Katya Lopez NP Unavailable Unavailab le Kathy Christopher MD Primary Care Prov ider Be Pacheco NP Unavailable [phone] Maycol Infante MD Unavailable Unavailable Sebastian Martinez MD Unavailable UnavailEve Blackmon MD Unavailable Elisa Romero NP Unavailable [phone] Marcus Murcia DO Unavailable Unavailable Encounter Details Date Type Department Care Team Description 09/26/2022 Hospital Medical Records [address] [place] [address] Social History Tobacco Use Types Packs/Day Years [...] on filedocumented in this encounter Care Teams Elderly Caregiver Relationship Specialty Start Date End Date Kathy Christopher MD [address] [place] [address] 28088 PCP - General Internal Medicine 01/21/22 Kameron Zuñiga MD Fpga Design Engineer Cardiovascular Disease 08/04/21 Katya Lopez NP Cardiology 08/04/21 01/30/24 Be Pacheco NP [address] [place] [address] 63346 Nurse Practitioner Cardiology 10/17/22 01/30/24 Maycol Infante MD [address] [place] [address] 03944 Specialist Pulmonology 10/19/22 Sebastian Martinez MD [address] [place] [address] 87860 Specialist Ophthalmology 03/21/23 Eve Juan MD [address] [place] [address] [place] [address] Specialist UROGYNECOLOGY 03/21/23 Elisa Romero NP [address] [place] [address] [place] [address] Cardiology 01/31/24 Marcus Murcia DO [address] [place] [address] [place] [address] Specialist Physiatry 03/26/24 documented as of this encounter
--- OUTSIDE RECORDS SUMMARY | 2025-02-15 13:01 | XMS_ITS | Encounter Summary ---
Author Organization [facility] Address [address] [place] [address] Care Team Providers Care Assistant Property Manager Name Role Phone Kameron Zuñiga MD Unavailable Katya Lopez NP Unavailable Unavailab Kathy Haley MD Primary Care Prov ider Be Pacheco NP Unavailable [phone] Maycol Infante MD Unavailable Unavailable Sebastian Martinez MD Unavailable UnavailEve Blackmon MD Unavailable Elisa Romero NP Unavailable [phone] Marcus Murcia DO Unavailable Unavailable Reason for Visit * Reason Onset Date Comments pain, chest 02/24/2022 Blood Pressure Elevated 02/24/2022 Encounter Details Date Type Department Care Team Description 02/24/2022 Telephone Cardio [facility] [address] [facility] [place] [address] Kameron Zuñiga MD [address] [place], [place] [phone] pain, chest; Blood Pressure Elevated Social History [...] blood pressure has been elevated since last /63 has been around there since then. States she has also been having headaches and chest pains that she has been taking tylenol to help but has not been doing to much. Wants to speak with nurse documented in this encounter Plan of Treatment Not on file documented as of this encounter Visit Diagnoses Not on filedocumented in this encounter Care Teams Assistant Property Manager Relationship Specialty Start Date End Date Kathy Christopher MD [address] [place] [address] 15414 PCP - General Internal Medicine 01/21/22 Kameron Zuñiga MD Folder Gluer Operator Cardiovascular Disease 08/04/21 Katya Lopez NP Cardiology 08/04/21 01/30/24 Be Pacheco NP [address] [place] [address] 25477 Nurse Practitioner Cardiology 10/17/22 01/30/24 Maycol Infante MD [address] [place] [address] 94141 Specialist Pulmonology 10/19/22 Sebastian Martinez MD [address] [place] [address] 85242 Specialist Ophthalmology 03/21/23 Eev Juan MD [address] [place] [address] [place] [address] Specialist UROGYNECOLOGY 03/21/23 Elisa Romero NP [address] [place] [address] [place] [address] Cardiology 01/31/24 Marcus Murcia DO [address] [facility] [place] [address] Specialist Physiatry 03/26/24 documented as of this encounter
--- OUTSIDE RECORDS SUMMARY | 2025-02-15 13:01 | XMS_ITS | Encounter Summary ---
Author Organization [facility] Address [address] [place] [address] Care Team Providers Care Rn Medical Surgical Name Role Phone Kameron Zuñiga MD Unavailable Kathy Christopher MD Primary Care Prov ider Maycol Infante MD Unavailable Unavailable Sebastian Martinez MD Unavailable UnavailEve Blackmon MD Unavailable Elisa Romero NP Unavailable [phone] Marcus Murcia DO Unavailable Unavailable Encounter Details Date Type Department Care Team Description 04/02/2024 [facility] Medical Records [address] [place] [address] Abstract, Provider Social History Tobacco Use Types [...] filedocumented in this encounter Care Teams Rn Medical Surgical Relationship Specialty Start Date End Date Kathy Christopher MD [address] [place] [address]20 PCP - General Internal Medicine 01/21/22 Kameron Zuñiga MD Prior Authorization Nurse Cardiovascular Disease 08/04/21 Maycol Infante MD [address] [place] [address] 16214 Specialist Pulmonology 10/19/22 Sebastian Martinez MD [address] [place], [place] [address] Specialist Ophthalmology 03/21/23 Eve Juan MD [address] [place] [address] [place] [address] Specialist UROGYNECOLOGY 03/21/23 lEisa Romero NP [address] [place] [address] [place] [address] Cardiology 01/31/24 Marcus Murcia DO [address] [place] [address] [place] [address] Specialist Physiatry 03/26/24 documented as of this encounter
--- OUTSIDE RECORDS SUMMARY | 2025-02-15 13:01 | XMS_ITS | Encounter Summary ---
Author Organization [facility] Address [address] [place] [address] Care Team Providers Care Branch Service Specialist Name Role Phone Kameron Zuñiga MD Unavailable Katya Lopez NP Unavailable Unavailab Kathy Haley MD Primary Care Prov ider Be Pacheco NP Unavailable [phone] Maycol Infante MD Unavailable Unavailable Sebastian Martinez MD Unavailable UnavailEve Blackmon MD Unavailable Elisa Romero NP Unavailable [phone] Marcus Murcia DO Unavailable Unavailable Encounter Details Date Type Department Care Team Description 02/02/2022 Orders Only Cardio PVC POC 154 [address] [facility] [address] [place] [address] Default, Provider Social History Tobacco Use Types [...] filedocumented in this encounter Care Teams Branch Service Specialist Relationship Specialty Start Date End Date Kathy Christopher MD [address] [place] [address] 35659 PCP - General Internal Medicine 01/21/22 Kameron Zuñiga MD Disease Education Specialist Cardiovascular Disease 08/04/21 Katya Lopez NP Cardiology 08/04/21 01/30/24 Be Pacheco NP [address] [place] [address] 45802 Nurse Practitioner Cardiology 10/17/22 01/30/24 Maycol Infante MD [address] [place] [address] 14528 Specialist Pulmonology 10/19/22 Sebastian Martinez MD [address] [place] [address] 95244 Specialist Ophthalmology 03/21/23 Eve Juan MD [address] [place] [address] [place] [address] Specialist UROGYNECOLOGY 03/21/23 Elisa Romero NP [address] [place] [address] [place] [address] Cardiology 01/31/24 Marcus Murcia DO [address] [place] [address] [place] [address] Specialist Physiatry 03/26/24 documented as of this encounter
--- OUTSIDE RECORDS SUMMARY | 2025-02-15 13:01 | XMS_ITS | Encounter Summary ---
Author Organization [facility] Address [address] [place] [address] Care Team Providers Care Daycare Director Name Role Phone Wiley Thompson MD Primary Care Provider Kameron Cornejo MD Unavailable Katya Lopez NP Unavailable Unavailab Kathy Haley MD Primary Care Prov ider Be Pacheco NP Unavailable [phone] Maycol Infante MD Unavailable Unavailable Sebastian Martinze MD Unavailable UnavailEve Blackmon MD Unavailable Elisa Romero NP Unavailable [phone] Marcus Murcia DO Unavailable Unavailable Reason for Visit * Reason Comments E-prescribe Rx Request Encounter Details Date Type Department Care Team Description 04/14/2018 Refill Adult Medicine [address] [id number] Lizzie Pisano PA-C [address] [place] [address] [id number] E-prescribe Rx Request Social History Tobacco Use [...] N/A Patients current insurance carrier is: Payor: [facility] MCR / Plan[id number] / Product Type: HMO [id number] documented in this encounter Plan of Treatment Scheduled Orders Name Type Priority Associated Diagnoses Orde r Schedule COMPREHENSIVE METABOLIC PANEL Lab Routine CAD (coronary artery disease), [place] coronary artery Expected: 04/17/2018, Expires: 04/17/2019 LIPID PROFILE Lab Routine CAD (coronary artery disease), [place] coronary artery Expected: 04/17/2018, Expires: 04/17/2019 documented as of this encounter Visit Diagnoses Diagnosis CAD (coronary artery disease), [place] coronary artery Coronary atherosclerosis of [place] coronary artery documented in this encounter Care Teams Daycare Director Relationship Specialty Start Date End Date Wiley Thompson MD PCP - General Internal Medicine 06/04/14 01/20/22 Trina Rizo, Kathy Fried MD [address] [place] [address] 09500 PCP - General Internal Medicine 01/21/22 Kameron Zuñiga MD Barman Cardiovascular Disease 08/04/21 Katya Lopez NP Cardiology 08/04/21 01/30/24 Be Pacheco NP [address] [place] [address] 84201 Nurse Practitioner Cardiology 10/17/22 01/30/24 Maycol Infante MD [address] [place] [address] 73197 Specialist Pulmonology 10/19/22 Sebastian Martinez MD [address] [place], [place] [phone] Specialist Ophthalmology 03/21/23 Eve Juan MD [address] [place] [address] [place] [address] Specialist UROGYNECOLOGY 03/21/23 Elisa Romero NP [address] [place] [address] [place] [address] Cardiology 01/31/24 Marcus Murcia DO [address] [place] [address] [place] [address] Specialist Physiatry 03/26/24 documented as of this encounter
--- OUTSIDE RECORDS SUMMARY | 2025-02-15 13:01 | XMS_ITS | Encounter Summary ---
Author Organization [facility] Address [address] [place] [address] Care Team Providers Care Tool Design Checker Name Role Phone Kameron Zuñiga MD Unavailable Katya Lopez NP Unavailable Unavailab Kathy Haley MD Primary Care Prov ider Be Pacheco NP Unavailable Maycol Infante MD Unavailable Unavailable Sebastian Martinez MD Unavailable UnavailEve Blackmon MD Unavailable Elisa Romero NP Unavailable [phone] Marcus Murcia DO Unavailable Unavailable Reason for Visit * Reason Comments E-prescribe Rx Request Encounter Details Date Type Department Care Team Description 08/05/2022 Refill Adult Medicine [address] [id number] Ratna Santa PA-C [address] [place] [address] [phone] E-prescribe Rx Request Social History Tobacco Use [...] Please review pharmacy refill request prescribed by [facility], thank you. * Telephone Encounter - Juan [...] filedocumented in this encounter Care Teams Tool Design Checker Relationship Specialty Start Date End Date Kathy Christopher MD [address] [place] [address] 45124 PCP - General Internal Medicine 01/21/22 Kameron Zuñiga MD Pole Maker Cardiovascular Disease 08/04/21 Katya Lopez NP Cardiology 08/04/21 01/30/24 Be Pacheco NP [address] [place] [address] 12469 Nurse Practitioner Cardiology 10/17/22 01/30/24 Maycol Infante MD [address] [place] [address] 54623 Specialist Pulmonology 10/19/22 Sebastian Martinez MD [address] [place], [place] [phone] Specialist Ophthalmology 03/21/23 Eve Juan MD [address] [place] [address] [place] [address] Specialist UROGYNECOLOGY 03/21/23 Elisa Romero NP [address] [place] [address] [place] [address] Cardiology 01/31/24 Marcus Murcia DO [address] [place] [address] [place] [address] Specialist Physiatry 03/26/24 documented as of this encounter
--- OUTSIDE RECORDS SUMMARY | 2025-02-15 13:01 | XMS_ITS | Encounter Summary ---
Author Organization [facility] Address [address] [place] [address] Care Team Providers Care Oven Tender Bagels Name Role Phone Wiley Thompson MD Primary Care Provider Kameron Cornejo MD Unavailable Katya Lopez NP Unavailable Unavailab Kathy Haley MD Primary Care Prov ider Be Pacheco NP Unavailable [phone] Maycol Infante MD Unavailable Unavailable Sebastian Martinez MD Unavailable UnavailEve Blackmon MD Unavailable Elisa Romero NP Unavailable [phone] Marcus Murcia DO Unavailable Unavailable Reason for Visit * Reason Comments E-prescribe Rx Request Encounter Details Date Type Department Care Team Description 10/21/2020 Refill Adult Medicine [address] [address] Wiley Thompson MD E-prescribe Rx Request Social [...] N/A Patients current insurance carrier is: Payor: [facility] MCR / Plan: HMO $0 [facility] [id number] / Product Type: HMO [id number] documented in this encounter Plan of Treatment Not on file documented as of this encounter Visit Diagnoses Diagnosis CAD (coronary artery disease), [place] coronary artery Coronary atherosclerosis of [place] coronary artery documented in this encounter Care Teams Oven Tender Bagels Relationship Specialty Start Date End Date Wiley Thompson MD PCP - General Internal Medicine 06/04/14 01/20/22 Kathy Christopher MD [address] [place] [address] 53655 PCP - General Internal Medicine 01/21/22 Kameron Zuñiga MD Ruby Software Developer Cardiovascular Disease 08/04/21 Katya Lopez NP Cardiology 08/04/21 01/30/24 Be Pacheco NP [address] [place] [address] 43276 Nurse Practitioner Cardiology 10/17/22 01/30/24 Maycol Infante MD [address] [place] [address] 55233 Specialist Pulmonology 10/19/22 Sebastian Martinez MD [address] [place] [address] 94442 Specialist Ophthalmology 03/21/23 Eve Juan MD [address] [place] [address] [place] [address] Specialist UROGYNECOLOGY 03/21/23 Elisa Romero NP [address] [place] [address] [place] [address] Cardiology 01/31/24 Marcus Murcia DO [address] [place] [address] [place] [address] Specialist Physiatry 03/26/24 documented as of this encounter
--- OUTSIDE RECORDS SUMMARY | 2025-02-15 13:01 | XMS_ITS | Encounter Summary ---
Author Organization [facility] Address [address] [place] [address] Care Team Providers Care Mechanical Technologist Name Role Phone Kameron Zuñiga MD Unavailable Katya Lopez NP Unavailable Unavailab Kathy Haley MD Primary Care Prov ider Be Pacheco NP Unavailable [phone] Maycol Infante MD Unavailable Unavailable Sebastian Martinez MD Unavailable UnavailEve Blackmon MD Unavailable Elisa Romero NP Unavailable [phone] Marcus Murcia DO Unavailable Unavailable Encounter Details Date Type Department Care Team Description 2022 Orders Only Cardio PVC POC 154 [address] [facility] [address] [place] [address] Default, Provider Social History Tobacco Use Types [...] on filedocumented in this encounter Care Teams Mechanical Technologist Relationship Specialty Start Date End Date Kathy Christopher MD [address] [place] [address] 47428 PCP - General Internal Medicine 01/21/22 Kameron Zuñiga MD Trains Dispatcher Supervisor Cardiovascular Disease 08/04/21 Katya Lopez NP Cardiology 08/04/21 01/30/24 Be Pacheco NP [address] [place] [address] 61923 Nurse Practitioner Cardiology 10/17/22 01/30/24 Maycol Infante MD [address] [place] [address] 95055 Specialist Pulmonology 10/19/22 Sebastian Martinez MD [address] [place] [address] 86051 Specialist Ophthalmology 03/21/23 Eve Juan MD [address] [place] [address] [place] [address] Specialist UROGYNECOLOGY 03/21/23 Elisa Romero NP [address] [place] [address] [place] [address] Cardiology 01/31/24 Marcus Murcia DO [address] [place] [address] [place] [address] Specialist Physiatry 03/26/24 documented as of this encounter
--- OUTSIDE RECORDS SUMMARY | 2025-02-15 13:01 | XMS_ITS | Encounter Summary ---
Author Organization [facility] Address [address] [place] [address] Care Team Providers Care Pharm Tech Name Role Phone Wiley Thompson MD Primary Care Provider Kameron Cornejo MD Unavailable Katya Lopez CHOCOLATIER Unavailable Unavailab Kathy Christopher MD Primary Care Prov ider Be Pacheco NP Unavailable [phone] Maycol Infante MD Unavailable Unavailable Sebastian Martinez MD Unavailable UnavailEve Blackmon MD Unavailable lEisa Romero NP Unavailable [phone] Marcus Murcia DO Unavailable Unavailable Encounter Details Date Type Department Care Team Description 11/21/2019 Drop Wire Builder Report Medical Records [address] [place] [address] 35955 Maycol Infante MD Social History Tobacco Use [...] on filedocumented in this encounter Care Teams Pharm Tech Relationship Specialty Start Date End Date Wiley Thomposn MD PCP - General Internal Medicine 06/04/14 01/20/22 Kathy Christopher MD [address] [place] [address] 10640 PCP - General Internal Medicine 01/21/22 Kameron Zuñiga MD Unit Aide Cardiovascular Disease 08/04/21 Katya Lopez, IRMA Cardiology 08/04/21 01/30/24 Be Pacheco NP [address] [place] [address] 87657 Nurse Practitioner Cardiology 10/17/22 01/30/24 Maycol Infante MD [address] [place] [address] 22872 Specialist Pulmonology 10/19/22 Sebastian Martinez MD [address] [place] [address] 96918 Specialist Ophthalmology 03/21/23 Eve Juan MD [address] [place] [address] [place] [address] Specialist UROGYNECOLOGY 03/21/23 Elisa Romero NP [address] [place] [address] [place] [address] Cardiology 01/31/24 Marcus Murcia DO [address] [place] [address] [place] [address] Specialist Physiatry 03/26/24 documented as of this encounter
--- OUTSIDE RECORDS SUMMARY | 2025-02-15 13:01 | XMS_ITS | Encounter Summary ---
Author Organization [facility] Address [address] [place] [address] Care Team Providers Care Towboat Engineer Name Role Phone Kameron Zuñiga MD Unavailable Katya Lopez NP Unavailable Unavailab Kathy Haley MD Primary Care Prov ider Be Pacheco NP Unavailable [phone] Maycol Infante MD Unavailable Unavailable Sebastian Martinez MD Unavailable UnavailEve Blackmon MD Unavailable Elisa Romero NP Unavailable [phone] Marcus Murcia DO Unavailable Unavailable Encounter Details Date Type Department Care Team Description 07/15/2022 Insole Stiffener Report Medical Records [address] [place] [address] 10347 Maycol Infante MD Social History Tobacco Use [...] on filedocumented in this encounter Care Teams Towboat Engineer Relationship Specialty Start Date End Date Kathy Christopher MD [address] [place] [address] 67104 PCP - General Internal Medicine 01/21/22 Kameron Zuñiga MD Automobile Body Repairer Cardiovascular Disease 08/04/21 Katya Lopez NP Cardiology 08/04/21 01/30/24 Be Pacheco NP [address] [place] [address] 81002 Nurse Practitioner Cardiology 10/17/22 01/30/24 Maycol Infante MD [address] [place] [address] 02735 Specialist Pulmonology 10/19/22 Sebastian Martinez MD [address] [place] [address] 10470 Specialist Ophthalmology 03/21/23 Eve Juan MD [address] [place] [address] [place] [address] Specialist UROGYNECOLOGY 03/21/23 Elisa Romero NP [address] [place] [address] [place] [address] Cardiology 01/31/24 Marcus Murcia DO [address] [place] [address] [place] [address] Specialist Physiatry 03/26/24 documented as of this encounter
--- OUTSIDE RECORDS SUMMARY | 2025-02-15 13:01 | XMS_ITS | Encounter Summary ---
Author Organization [facility] Address [address] [place] [address] Care Team Providers Care Studio Manager Name Role Phone Wiley Thompson MD Primary Care Provider Kameron Cornejo MD Unavailable Katya Lopez NP Unavailable Unavailab Kathy Haley MD Primary Care Prov ider Be Pacheco NP Unavailable [phone] Maycol Infante MD Unavailable Unavailable Sebastian Martinez MD Unavailable UnavailEve Blackmon MD Unavailable Elisa Romero NP Unavailable [phone] Marcus Murcia DO Unavailable Unavailable Encounter Details Date Type Department Care Team Description 06/18/2020 Orders Only Medical Records [address] [place] [address] Christophe Sharp MD [address] [place], [place] [phone] Social History Tobacco Use Types Packs/Day Years [...] Certified Gastroenterology and Internal Medicine Transplant Hepatology [facility] documented in this encounter Plan of Treatment Not on file documented as of this encounter Procedures Procedure Name Priority Date/Time Associated Diagnosis Comments OUTSIDE PATHOLOGY Routine 06/16/2020 documented in this encounter Results * OUTSIDE PATHOLOGY (06/16/2020) Christophe Sharp MD OUTSIDE LAB documented in this encounter Visit Diagnoses Not on filedocumented in this encounter Care Teams Studio Manager Relationship Specialty Start Date End Date Wiley Thompson MD PCP - General Internal Medicine 06/04/14 01/20/22 Kathy Christopher MD [address] [place] [address] 71201 PCP - General Internal Medicine 01/21/22 Kameron Zuñiga MD Coach Cleaner Cardiovascular Disease 08/04/21 Katya Lopez NP Cardiology 08/04/21 01/30/24 Be Pacheco NP [address] [place] [address] [phone] Nurse Practitioner Cardiology 10/17/22 01/30/24 Maycol Infante MD [address] [place], [place] [phone] Specialist Pulmonology 10/19/22 Sebastian Martinez MD [address] [place] [address] 99510 Specialist Ophthalmology 03/21/23 Eve Juan MD [address] [place] [address] [place] [address] Specialist UROGYNECOLOGY 03/21/23 Elisa Romero NP [address] [place] [address] [place] [address] Cardiology 01/31/24 Marcus Murcia DO [address] [place] [address] [place] [address] Specialist Physiatry 03/26/24 documented as of this encounter
--- OUTSIDE RECORDS SUMMARY | 2025-02-15 13:01 | XMS_ITS | Encounter Summary ---
Author Organization [facility] Address [address] [place] [address] Care Team Providers Care Iap Displays Analyst Name Role Phone Kameron Zuñiga MD Unavailable Kathy Christopher MD Primary Care Prov ider Maycol Infante MD Unavailable Unavailable Sebastian Martinez MD Unavailable UnavailEve Blackmon MD Unavailable Elisa Romero NP Unavailable [phone] Marcus Murcia DO Unavailable Unavailable Encounter Details Date Type Department Care Team Description 03/12/2024 Roll Line Operator Report Medical Records [address] [place] [address] Maycol Infante MD Social History Tobacco Use [...] on filedocumented in this encounter Care Teams Iap Displays Analyst Relationship Specialty Start Date End Date Kathy Christopher MD [address] [place] [address] 01020 PCP - General Internal Medicine 01/21/22 Kameron Zuñiga MD Drivematic Machine Operator Cardiovascular Disease 08/04/21 Maycol Infante MD [address] [place] [address] 88595 Specialist Pulmonology 10/19/22 Sebastian aMrtinez MD [address] [place], [place] [phone] Specialist Ophthalmology 03/21/23 Eve Juan MD [address] [place] [address] [place] [address] Specialist UROGYNECOLOGY 03/21/23 Elisa Romero NP [address] [place] [address] [place] [address] Cardiology 01/31/24 Marcus Murcia DO [address] [place] [address] [place] [address] Specialist Physiatry 03/26/24 documented as of this encounter
--- OUTSIDE RECORDS SUMMARY | 2025-02-15 13:01 | XMS_ITS | Encounter Summary ---
Author Organization [facility] Address [address] [place] [address] Care Team Providers Care Leasing Specialist Name Role Phone Wiley Thompson MD Primary Care Provider Kameron Cornejo MD Unavailable Katya Lopez CHIEF CLOTH FINISHING RANGE OPERATOR Unavailable Unavailab Kathy Haley MD Primary Care Prov ider Be Pacheco CHIEF CLOTH FINISHING RANGE OPERATOR Unavailable [phone] Maycol Infante MD Unavailable Unavailable Sebastian Martinez MD Unavailable UnavailEve Blackmon MD Unavailable Elisa Romero NP Unavailable [phone] Marcus Murcia DO Unavailable Unavailable Encounter Details Date Type Department Care Team Description 02/07/2018 Sifter And Miller Report Medical Records [address] [place] [address] Asya Waller, IRMA Social History Tobacco Use [...] on filedocumented in this encounter Care Teams Leasing Specialist Relationship Specialty Start Date End Date Wiley Thompson MD PCP - General Internal Medicine 06/04/14 01/20/22 Kathy Christopher MD [address] [place] [address] 06700 PCP - General Internal Medicine 01/21/22 Kameron Zuñiga MD Joint Special Operations Cardiovascular Disease 08/04/21 Katya Lopez, IRMA Cardiology 08/04/21 01/30/24 Be Pacheco NP [address] [place] [address] Nurse Practitioner Cardiology 10/17/22 01/30/24 Maycol Infante MD [address] [place] [address]155 Specialist Pulmonology 10/19/22 Sebastian Martinez MD [address] [place] [address] 97511 Specialist Ophthalmology 03/21/23 Eve Juan MD [address] [place] [address] [place] [address] Specialist UROGYNECOLOGY 03/21/23 Elisa Romero NP [address] [place] [address] [place] [address] Cardiology 01/31/24 Marcus Murcia DO [address] [place] [address] [place] [address] Specialist Physiatry 03/26/24 documented as of this encounter
[2025-02-15 13:02] LABS: Hematocrit 36.2 % (37.0-47.0); Hemoglobin 12.5 g/dl (12.0-16.0); Imm Gran Abs Auto 0.19 X10*3/uL (0.00-0.03); Imm Gran Pct Auto 1.0 % (0.0-0.4); Lymphocytes Absolute Auto 2.5 X10*3/uL (1.2-4.9); MANUAL DIFF FLAG SCAN; Mean Corpuscular HGB Conc 34.5 g/dl (31.0-35.0); Mean Corpuscular Hemoglobin 29.9 pg (27.0-33.0); Mean Corpuscular Volume 86.6 fL (80.0-98.0); NRBC Abs Auto 0.030 X10*3/uL (0.0-0.012); NRBC Pct Auto 0.2 /100WBC (0.0-0.2); Platelet Count 348 X10*3/uL (160-400); Red Blood Count 4.18 X10*6/uL (4.20-5.50); SCAN SMEAR FLAG 1; White Blood Count 19.5 X10*3/uL (4.8-10.8)
--- OUTSIDE RECORDS SUMMARY | 2025-02-15 13:02 | XMS_ITS | Encounter Summary ---
Author Organization [facility] Address [address] [place] [address] Care Team Providers Care Soda Room Operator Name Role Phone Kameron Zuñiga MD Unavailable Katya Lopez NP Unavailable Unavailab Kathy Haley MD Primary Care Prov ider Be Pacheco NP Unavailable [phone] Maycol Infante MD Unavailable Unavailable Sebastian Martinez MD Unavailable UnavailEve Blackmon MD Unavailable Elisa Romero NP Unavailable Marcus Murcia DO Unavailable Unavailable Encounter Details Date Type Department Care Team Description 02/23/2023 Orders Only Medical Records [address] [place] [address] 27949 Abstract, Provider Social History Tobacco Use Types [...] on filedocumented in this encounter Care Teams Soda Room Operator Relationship Specialty Start Date End Date Kathy Christopher MD [address] [place] [address] 18729 PCP - General Internal Medicine 01/21/22 Kameron Zuñiga MD Computer Network Specialist Cardiovascular Disease 08/04/21 Katya Lopez NP Cardiology 08/04/21 01/30/24 Be Pacheco NP [address] [place] [address] 37485 Nurse Practitioner Cardiology 10/17/22 01/30/24 Maycol Infante MD [address] [place] [address] 89843 Specialist Pulmonology 10/19/22 Sebastian Martinez MD [address] [place] [address] 89780 Specialist Ophthalmology 03/21/23 Eve Juan MD [address] [place] [address] [place] [address] Specialist UROGYNECOLOGY 03/21/23 Elisa Romero NP [address] [place] [address] [place] [address] Cardiology 01/31/24 Marcus Murcia DO [address] [place] [address] [place] [address] Specialist Physiatry 03/26/24 documented as of this encounter
--- OUTSIDE RECORDS SUMMARY | 2025-02-15 13:02 | XMS_ITS | Encounter Summary ---
Author Organization [facility] Address [address] [place] [address] Care Team Providers Care Equipment Man Name Role Phone Bri Santacruz MD Primary Care Provider Unavailable Wiley Thompson MD Primary Care Provider Kameron Cornejo MD Unavailable Katya Lopez NP Unavailable Unavailab Kathy Haley MD Primary Care Prov ider Be Pacheco LOAN ADMINISTRATOR Unavailable [phone] Maycol Infante MD Unavailable Unavailable Sebastian Martinez MD Unavailable UnavailEve Blackmon MD Unavailable Elisa Romero NP Unavailable [phone] Marcus Murcia DO Unavailable Unavailable Encounter Details Date Type Department Care Team Description 01/24/2013 Release of Information Medical Records [address] [place] [address] Abstract, Provider Social History Tobacco Use Types [...] on filedocumented in this encounter Care Teams Equipment Man Relationship Specialty Start Date End Date Bri Santacruz MD PCP - General Internal Medicine 04/23/12 06/03/14 Wiley Thompson MD PCP - General Internal Medicine 06/04/14 01/20/22 Kathy Christopher MD [address] [place] [address]3776 PCP - General Internal Medicine 01/21/22 Kameron Zuñiga MD Booking Officer Cardiovascular Disease 08/04/21 Katya Lopez, IRMA Cardiology 08/04/21 01/30/24 Be Pacheco NP [address] [place] [address] 75382 Nurse Practitioner Cardiology 10/17/22 01/30/24 Maycol Infante MD [address] [place] [address] 37981 Specialist Pulmonology 10/19/22 Sebastian Martinez MD [address] [place] [address] 81785 Specialist Ophthalmology 03/21/23 Eve Juan MD [address] [place] [address] [place] [address] Specialist UROGYNECOLOGY 03/21/23 Elisa Romero, IRMA [address] [place] [address] [place] [address] Cardiology 01/31/24 Marcus Murcia DO [address] [place] [address] [place] [address] Specialist Physiatry 03/26/24 documented as of this encounter
--- OUTSIDE RECORDS SUMMARY | 2025-02-15 13:02 | XMS_ITS | Encounter Summary ---
Author Organization [facility] Address [address] [place] [address] Care Team Providers Care Ring Barker Operator Name Role Phone Wiley Thompson MD Primary Care Provider Kameron Cornejo MD Unavailable Katya Lopez NP Unavailable Unavailab Kathy Christopher MD Primary Care Prov ider eB Pacheco NP Unavailable [phone] Maycol Infante MD Unavailable Unavailable Sebastian Martinez MD Unavailable UnavailEve Blackmon MD Unavailable Elisa Romero NP Unavailable [phone] Marcus Murcia DO Unavailable Unavailable Encounter Details Date Type Department Care Team Description 09/25/2018 Hospital Medical Records [address] [place] [address] Cory Baptiste MD Social History Tobacco Use [...] on filedocumented in this encounter Care Teams Ring Barker Operator Relationship Specialty Start Date End Date Wiley Thompson MD PCP - General Internal Medicine 06/04/14 01/20/22 Kathy Christopher MD [address] [place] [address] PCP - General Internal Medicine 01/21/22 Kameron Zuñiga MD Slotter Operator Helper Cardiovascular Disease 08/04/21 Katya Lopez, IRMA Cardiology 08/04/21 01/30/24 Be Pacheco NP [address] [place] [address] Nurse Practitioner Cardiology 10/17/22 01/30/24 Maycol Infante MD [address] [place] [address]136 Specialist Pulmonology 10/19/22 Sebastian Martinez MD [address] [place] [address] 16382 Specialist Ophthalmology 03/21/23 Eve Juan MD [address] [place] [address] [place] [address] Specialist UROGYNECOLOGY 03/21/23 Elisa Romero NP [address] [place] [address] [place] [address] Cardiology 01/31/24 Marcus Murcia DO [address] [place] [address] [place] [address] Specialist Physiatry 03/26/24 documented as of this encounter
--- OUTSIDE RECORDS SUMMARY | 2025-02-15 13:02 | XMS_ITS | Encounter Summary ---
Author Organization [facility] Address [address] [place] [address] Care Team Providers Care Project Manager Name Role Phone Bri Santacruz MD Primary Care Provider Unavailable Wiley Thompson MD Primary Care Provider Kameron Cornejo MD Unavailable Katya Lopez NP Unavailable Unavailab Kathy Haley MD Primary Care Prov ider Be Pacheco NP Unavailable [phone] Maycol Infante MD Unavailable Unavailable Sebastian Martinez MD Unavailable UnavailEve Blackmon MD Unavailable Elisa Romero NP Unavailable [phone] Marcus Murcia DO Unavailable Unavailable Encounter Details Date Type Department Care Team Description 02/01/2014 [facility] Medical Records [address] [place] [address] Arun Hui MD Social History Tobacco Use [...] filedocumented in this encounter Care Teams Project Manager Relationship Specialty Start Date End Date Bri Santacruz MD PCP - General Internal Medicine 04/23/12 06/03/14 Wiley Thompson MD PCP - General Internal Medicine 06/04/14 01/20/22 Kathy Christopher MD [address] [place] [address] PCP - General Internal Medicine 01/21/22 Kameron Zuñiga MD Chemical Plant Operator Supervisor Cardiovascular Disease 08/04/21 Katya Lopez NP Cardiology 08/04/21 01/30/24 Be Pacheco NP [address] [place] [address] 7[address] Nurse Practitioner Cardiology 10/17/22 01/30/24 Maycol Infante MD [address] [place] [address] Specialist Pulmonology 10/19/22 Sebastian Martinez MD [address] [place] [address]105 Specialist Ophthalmology 03/21/23 Eve Juan MD [address] [place] [address] [place] [address] Specialist UROGYNECOLOGY 03/21/23 Elisa Romero NP [address] [place] [address] [place] [address] Cardiology 01/31/24 Marcus Murcia DO [address] [place] [address] [place] [address] Specialist Physiatry 03/26/24 documented as of this encounter
--- OUTSIDE RECORDS SUMMARY | 2025-02-15 13:02 | XMS_ITS | Encounter Summary ---
Author Organization [facility] Address [address] [place] [address] Care Team Providers Care Rectifying Attendant Name Role Phone Bri Santacruz MD Primary Care Provider Unavailable Wiley Thompson MD Primary Care Provider Kameron Cornejo MD Unavailable Katya Lopez NP Unavailable Unavailab Kathy Haley MD Primary Care Prov ider Be Pacheco ENGINEERING INSTRUCTOR Unavailable [phone] Maycol Infante MD Unavailable Unavailable Sebastian Martinez MD Unavailable UnavailEve Blackmon MD Unavailable Elisa Romero NP Unavailable [phone] Marcus Murcia DO Unavailable Unavailable Encounter Details Date Type Department Care Team Description 07/23/2012 Night Triage Doc Medical Records [address] [place] [address] Abstract, Provider Social History Tobacco Use Types [...] on filedocumented in this encounter Care Teams Rectifying Attendant Relationship Specialty Start Date End Date Bri Santacruz MD PCP - General Internal Medicine 04/23/12 06/03/14 Wiley Thompson MD PCP - General Internal Medicine 06/04/14 01/20/22 Kathy Christopher MD [address] [place] [place] [address] PCP - General Internal Medicine 01/21/22 Kameron Zuñiga MD Log Operations Coordinator Cardiovascular Disease 08/04/21 Katya Lopez, IRMA Cardiology 08/04/21 01/30/24 Be Pacheco NP [address] [place] [place] [address] 43666 Nurse Practitioner Cardiology 10/17/22 01/30/24 Maycol Infante MD [address] [place] [place] [address] 47[address] Specialist Pulmonology 10/19/22 Sebastian Martinez MD [address] [place] [place] [address]78 Specialist Ophthalmology 03/21/23 Eve Juan MD [address] [place] [address] [place] [address] Specialist UROGYNECOLOGY 03/21/23 Elisa Romero, IRMA [address] [place] [address] [place] [address] Cardiology 01/31/24 Marcus Murcia DO [address] [place] [address] [place] [address] Specialist Physiatry 03/26/24 documented as of this encounter
--- OUTSIDE RECORDS SUMMARY | 2025-02-15 13:02 | XMS_ITS | Encounter Summary ---
Author Organization [facility] Address [address] [place] [address] Care Team Providers Care Packager Or Packer And Weigher Name Role Phone Kameron Zuñiga MD Unavailable Katya Lopez NP Unavailable Unavailab Kathy Haley MD Primary Care Prov ider Be Pacheco NP Unavailable [phone] Maycol Infante MD Unavailable Unavailable Sebastian Martinez MD Unavailable UnavailEve Blackmon MD Unavailable Elisa Romero NP Unavailable [phone] Marcus Murcia DO Unavailable Unavailable Encounter Details Date Type Department Care Team Description 12/09/2022 Upholstery Technician Report Medical Records [address] [place] [address] Maycol Infante MD Social History Tobacco Use [...] on filedocumented in this encounter Care Teams Packager Or Packer And Weigher Relationship Specialty Start Date End Date Kathy Christopher MD [address] [place] [address] PCP - General Internal Medicine 01/21/22 Kameron Zuñiga MD Doll Wig Maker Rooted Hair Cardiovascular Disease 08/04/21 Katya Lopez NP Cardiology 08/04/21 01/30/24 Be Pacheco NP [address] [place] [address]34 Nurse Practitioner Cardiology 10/17/22 01/30/24 Maycol Infante MD [address] [place] [address] Specialist Pulmonology 10/19/22 Sebastian Martinez MD [address] [place] [address] 67606 Specialist Ophthalmology 03/21/23 Eve Juan MD [address] [place] [address] [place] [address] Specialist UROGYNECOLOGY 03/21/23 Elisa Romero NP [address] [place] [address] [place] [address] Cardiology 01/31/24 Marcus Murcia DO [address] [place] [address] [place] [address] Specialist Physiatry 03/26/24 documented as of this encounter
--- OUTSIDE RECORDS SUMMARY | 2025-02-15 13:02 | XMS_ITS | Encounter Summary ---
Author Organization [facility] Address [address] [place] [address] Care Team Providers Care Weighbridge Operator Name Role Phone Lance Lorenzo Primary Care Provider Unavailab Bri Cooper MD Primary Care Provider Unavailable Wiley Thompson MD Primary Care Provider Kameron Cornejo MD Unavailable Katya Lopez NP Unavailable Unavailab Kathy Haley MD Primary Care Prov ider Be Pacheco SIGN BUILDER Unavailable Maycol Infante MD Unavailable Unavailable Sebastian Martinez MD Unavailable UnavailEve Blackmon MD Unavailable Elisa Romero NP Unavailable [phone] Marcus Murcia DO Unavailable Unavailable Encounter Details Date Type Department Care Team Description 01/02/2012 Manufacturing Engineer Automotive Report Medical Records [address] [place] [address] Inderjit Bonilla Social History Tobacco Use Types Packs/Day Years Used Date Smoking Tobacco: Never Assessed Sex Assigned at Date Recorded Not on file Job Start Date Occupation Industry Not on file Not on file Not on file documented as of this encounter Plan of Treatment Not on file documented as of this encounter Visit Diagnoses Not on filedocumented in this encounter Care Teams Weighbridge Operator Relationship Specialty Start Date End Date Lance Lorenzo PCP - General Internal Medicine 06/19/11 04/22/12 Bri Santacruz MD PCP - General Internal Medicine 04/23/12 06/03/14 Wiley Thompson MD PCP - General Internal Medicine 06/04/14 01/20/22 Kathy Christopher MD [address] [place] [address] PCP - General Internal Medicine 01/21/22 Kameron Zuñiga MD Middle School Assistant Principal Cardiovascular Disease 08/04/21 Katya Lopez NP Cardiology 08/04/21 01/30/24 Be Pacheco NP [address] [place] [address] 14077 Nurse Practitioner Cardiology 10/17/22 01/30/24 Maycol Infante MD [address] [place] [address] Specialist Pulmonology 10/19/22 Sebastian Martinez MD [address] [place] [address] 21930 Specialist Ophthalmology 03/21/23 Eve Juan MD [address] [place] [address] [place] [address] Specialist UROGYNECOLOGY 03/21/23 Elisa Romero NP [address] [place] [address] [place] [address] Cardiology 01/31/24 Marcus Murcia DO [address] [place] [address] [place] [address] Specialist Physiatry 03/26/24 documented as of this encounter
--- OUTSIDE RECORDS SUMMARY | 2025-02-15 13:02 | XMS_ITS | Encounter Summary ---
Author Organization [facility] Address [address] [place] [address] Care Team Providers Care It Teacher Name Role Phone Wiley Thompson MD Primary Care Provider Kameron Cornejo MD Unavailable Katya Lopez NP Unavailable Unavailab Kathy Haley MD Primary Care Prov ider Be Pacheco NP Unavailable [phone] Maycol Infante MD Unavailable Unavailable Sebastian Martinez MD Unavailable UnavailEve Blackmon MD Unavailable Elisa Romero NP Unavailable [phone] Marcus Murcia DO Unavailable Unavailable Reason for Visit * Reason Onset Date Comments Prior Authorization 12/18/2018 Encounter Details Date Type Department Care Team Description 12/18/2018 Telephone Adult Medicine [address] [address] Wiley Thompson MD Prior Authorization Social History [...] 1:50 PM EDT Methocarbamol not covered by [employer]. Medication was denied because it a high risk for patients over 65 years and older. The patient has used:Meloxicam and naproxen Daniela Varghese [place] Prior Authorization Dept. Ext: [phone] Please respond back to [id number] Thank You * Telephone Encounter - Jennifer Majano - 12/19/2018 10:36 AM EDT Pharmacy calling back, Nellie [phone] Option 1, Ref #[id number], they need clarification on diagnosis and that [...] My Meds request: Yes -- White Code [id number] Name of Medication METHOCARBAMOL Dose of Medication 500 MG TABLETS What is the RX # from the faxed refill? NOT STATED ON FAX How does patient take this med? What Pharmacy did the fax come from: [facility] Pharmacy fax #: [phone] Third Libertarian Information from fax: What Prescription Plan does the patient have? BIN/PCN if applicable: Cardholder ID: Person Code: Relationship Code: Help desk phone: [phone] documented in this encounter Plan of Treatment Not on file documented as of this encounter Visit Diagnoses Not on filedocumented in this encounter Care Teams It Teacher Relationship Specialty Start Date End Date Wiley Thompson MD PCP - General Internal Medicine 06/04/14 01/20/22 Kathy Christopher MD [address] [place] [address] PCP - General Internal Medicine 01/21/22 Kameron Zuñiga MD Rack Pusher Cardiovascular Disease 08/04/21 Katya Lopez NP Cardiology 08/04/21 01/30/24 Be Pacheco NP [address] [place] [address]55 Nurse Practitioner Cardiology 10/17/22 01/30/24 Maycol Infante MD [address] [place] [address]00 Specialist Pulmonology 10/19/22 Sebastian Martinez MD [address] [place] [address] 42462 Specialist Ophthalmology 03/21/23 Eve Juan MD [address] [place] [address] [place] [address] Specialist UROGYNECOLOGY 03/21/23 Elisa Romero NP [address] [place] [address] [place] [address] Cardiology 01/31/24 Marcus Murcia DO [address] [facility] [place] [address] Specialist Physiatry 03/26/24 documented as of this encounter
--- OUTSIDE RECORDS SUMMARY | 2025-02-15 13:02 | XMS_ITS | Encounter Summary ---
Author Organization [facility] Address [address] [place] [address] Care Team Providers Care Database Marketing Specialist Name Role Phone Wiley Thompson MD Primary Care Provider Kameron Cornejo MD Unavailable Katya Lopez NP Unavailable Unavailab Kathy Haley MD Primary Care Prov ider Be Pacheco NP Unavailable [phone] Maycol Infante MD Unavailable Unavailable Sebastian Martinez MD Unavailable UnavailEve Blackmon MD Unavailable Elisa Romero NP Unavailable [phone] Marcus Murcia DO Unavailable Unavailable Encounter Details Date Type Department Care Team Description 07/24/2021 Hospital Medical Records [address] [place] [address] Abstract, Provider Social History Tobacco Use Types [...] filedocumented in this encounter Care Teams Database Marketing Specialist Relationship Specialty Start Date End Date Wiley Thompson MD PCP - General Internal Medicine 06/04/14 01/20/22 Kathy Christopher MD [address] [place] [address] PCP - General Internal Medicine 01/21/22 Kameron Zuñiga MD Cigar Packer And Picker Cardiovascular Disease 08/04/21 Katya Lopez NP Cardiology 08/04/21 01/30/24 Be Pacheco NP [address] [place] [address] 09611 Nurse Practitioner Cardiology 10/17/22 01/30/24 Maycol Infante MD [address] [place] [address] 08902 Specialist Pulmonology 10/19/22 Sebastian Martinez MD [address] [place] [address] 54054 Specialist Ophthalmology 03/21/23 Eve Juan MD [address] [place] [address] [place] [address] Specialist UROGYNECOLOGY 03/21/23 Elisa Romero NP [address] [place] [address] [place] [address] Cardiology 01/31/24 Marcus Murcia DO [address] [place] [address] [place] [address] Specialist Physiatry 03/26/24 documented as of this encounter
--- OUTSIDE RECORDS SUMMARY | 2025-02-15 13:02 | XMS_ITS | Encounter Summary ---
Author Organization [facility] Address [address] [place] [address] Care Team Providers Care Mapping Analyst Name Role Phone Wiley Thompson MD Primary Care Provider Kameron Cornejo MD Unavailable Katya Loepz DOG FOOD SHREDDER OPERATOR Unavailable Unavailab Kathy Christopher MD Primary Care Prov ider Be Pacheco NP Unavailable [phone] Maycol Infante MD Unavailable Unavailable Sebastian Martinez MD Unavailable UnavailEve Blackmon MD Unavailable Elisa Romero NP Unavailable [phone] Marcus Murcia DO Unavailable Unavailable Encounter Details Date Type Department Care Team Description 05/21/2021 Expenditure Requisition Clerk Report Medical Records [address] [place] [address] Maycol Infante MD Social History Tobacco Use [...] on filedocumented in this encounter Care Teams Mapping Analyst Relationship Specialty Start Date End Date Wiley Thompson MD PCP - General Internal Medicine 06/04/14 01/20/22 Kathy Christopher MD [address] [place] [address] 35715 PCP - General Internal Medicine 01/21/22 Kameron Zuñiga MD Director Of Payroll Cardiovascular Disease 08/04/21 Katya Lopez, IRMA Cardiology 08/04/21 01/30/24 Be Pacheco NP [address] [place] [address] Nurse Practitioner Cardiology 10/17/22 01/30/24 Maycol Infante MD [address] [place] [address]23 Specialist Pulmonology 10/19/22 Sebastian Martinez MD [address] [place] [address]14 Specialist Ophthalmology 03/21/23 Eve Juan MD [address] [place] [address] [place] [address] Specialist UROGYNECOLOGY 03/21/23 Elisa Romero NP [address] [place] [address] [place] [address] Cardiology 01/31/24 Marcus Murcia DO [address] [place] [address] [place] [address] Specialist Physiatry 03/26/24 documented as of this encounter
--- OUTSIDE RECORDS SUMMARY | 2025-02-15 13:02 | XMS_ITS | Encounter Summary ---
Author Organization [facility] Address [address] [place] [address] Care Team Providers Care Administrator Health Care Facility Name Role Phone Bri Santacruz MD Primary Care Provider Unavailable Wiley Thompson MD Primary Care Provider Kameron Cornejo MD Unavailable Katya Lopez NP Unavailable Unavailab Kathy Christopher MD Primary Care Prov ider Be Pacheco WELDING MACHINE FEEDER Unavailable [phone] Maycol Infante MD Unavailable Unavailable Sebastian Martinez MD Unavailable UnavailEve Blackmon MD Unavailable Elisa Romero NP Unavailable [phone] Marcus Murcia DO Unavailable Unavailable Encounter Details Date Type Department Care Team Description 05/29/2012 Staffing Consultant Report Medical Records [address] [place] [address]95 Abstract, Provider Social History Tobacco Use Types Packs/Day Years Used Date Smoking Tobacco: Never Assessed Sex Assigned at Date Recorded Not on file Job Start Date Occupation Industry Not on file Not on file Not on file documented as of this encounter Plan of Treatment Not on file documented as of this encounter Visit Diagnoses Not on filedocumented in this encounter Care Teams Administrator Health Care Facility Relationship Specialty Start Date End Date Bri Santacruz MD PCP - General Internal Medicine 04/23/12 06/03/14 Wiley Thompson MD PCP - General Internal Medicine 06/04/14 01/20/22 Kathy Christopher MD [address] [place] [address]198 PCP - General Internal Medicine 01/21/22 Kameron Zuñiga MD Manager Of Photography Cardiovascular Disease 08/04/21 Katya Lopez NP Cardiology 08/04/21 01/30/24 Be Pacheco NP [address] [place] [address] 79977 Nurse Practitioner Cardiology 10/17/22 01/30/24 Maycol Infante MD [address] [place] [address] 22737 Specialist Pulmonology 10/19/22 Sebastian Martinez MD [address] [place], [place] [address] Specialist Ophthalmology 03/21/23 Eve Juan MD [address] [place] [address] [place] [address] Specialist UROGYNECOLOGY 03/21/23 Elisa Romero NP [address] [place] [address] [place] [address] Cardiology 01/31/24 Marcus Murcia DO [address] [place] [address] [place] [address] Specialist Physiatry 03/26/24 documented as of this encounter
--- OUTSIDE RECORDS SUMMARY | 2025-02-15 13:02 | XMS_ITS | Encounter Summary ---
Author Organization [facility] Address [address] [place] [address] Care Team Providers Care Disease Case Manager Name Role Phone Wiley Thompson MD Primary Care Provider Kameron Cornejo MD Unavailable Katya Lopez NP Unavailable Unavailab Kathy Haley MD Primary Care Prov ider Be Pacheco NP Unavailable [phone] Maycol Infante MD Unavailable Unavailable Sebastian Martinez MD Unavailable UnavailEve Blackmon MD Unavailable Elisa Romero NP Unavailable [phone] Marcus Murcia DO Unavailable Unavailable Encounter Details Date Type Department Care Team Description 07/24/2021 Abrasive Coating Machine Operator Report Medical Records [address] [place] [address] Abstract, Provider Social History Tobacco Use Types [...] on filedocumented in this encounter Care Teams Disease Case Manager Relationship Specialty Start Date End Date Wiley Thompson MD PCP - General Internal Medicine 06/04/14 01/20/22 Kathy Christopher MD [address] [place] [address]345 PCP - General Internal Medicine 01/21/22 Kameron Zuñiga MD Aerospace Project Manager Cardiovascular Disease 08/04/21 Katya Lopez NP Cardiology 08/04/21 01/30/24 Be Pacheco NP [address] [place] [address] 21665 Nurse Practitioner Cardiology 10/17/22 01/30/24 Maycol Infante MD [address] [place] [address] 68282 Specialist Pulmonology 10/19/22 Sebastian Martinez MD [address] [place] [address] Specialist Ophthalmology 03/21/23 Eve Juan MD [address] [place] [address] [place] [address] Specialist UROGYNECOLOGY 03/21/23 Elisa Romero NP [address] [place] [address] [place] [address] Cardiology 01/31/24 Marcus Murcia DO [address] [place] [address] [place] [address] Specialist Physiatry 03/26/24 documented as of this encounter
--- OUTSIDE RECORDS SUMMARY | 2025-02-15 13:02 | XMS_ITS | Encounter Summary ---
Author Organization [facility] Address [address] [place] [address] Care Team Providers Care Corrections Cadet Name Role Phone Wiley Thompson MD Primary Care Provider Kameron Cornejo MD Unavailable Katya Lopez NP Unavailable Unavailab Kathy Christopher MD Primary Care Prov ider Be Pacheco NP Unavailable [phone] Maycol Infante MD Unavailable Unavailable Sebastian Martinez MD Unavailable UnavailEve Blackmon MD Unavailable Elisa Romero NP Unavailable [phone] Marcus Murcia DO Unavailable Unavailable Encounter Details Date Type Department Care Team Description 04/04/2016 [facility] Medical Records [address] [place] [address] Abstract, Provider Social History Tobacco Use Types [...] on filedocumented in this encounter Care Teams Corrections Cadet Relationship Specialty Start Date End Date Wiley Thompson MD PCP - General Internal Medicine 06/04/14 01/20/22 Kathy Christopher MD [address] [place] [address] PCP - General Internal Medicine 01/21/22 Kameron Zuñiga MD Fringing Machine Operator Cardiovascular Disease 08/04/21 Katya Lopez NP Cardiology 08/04/21 01/30/24 Be Pacheco NP [address] [place] [address] 74158 Nurse Practitioner Cardiology 10/17/22 01/30/24 Maycol Infante MD [address] [place] [address] Specialist Pulmonology 10/19/22 Sebastian Martinez MD [address] [place], [place] [address] Specialist Ophthalmology 03/21/23 Eve Juan MD [address] [place] [address] [place] [address] Specialist UROGYNECOLOGY 03/21/23 Elisa Romero NP [address] [place] [address] [place] [address] Cardiology 01/31/24 Marcus Murcia DO [address] [place] [address] [place] [address] Specialist Physiatry 03/26/24 documented as of this encounter
--- OUTSIDE RECORDS SUMMARY | 2025-02-15 13:02 | XMS_ITS | Encounter Summary ---
Author Organization [facility] Address [address] [place] [address] Care Team Providers Care Jockey'S Agent Name Role Phone Kameron Zuñiga MD Unavailable Katya Lopez NP Unavailable Unavailab Kathy Haley MD Primary Care Prov ider Be Pacheco NP Unavailable [phone] Maycol Infante MD Unavailable Unavailable Sebastian Martinez MD Unavailable UnavailEve Blackmon MD Unavailable Elisa Romero NP Unavailable [phone] Marcus Murcia DO Unavailable Unavailable Reason for Visit * Reason Onset Date Comments Echocardiogram 12/06/2022 Encounter Details Date Type Department Care Team Description 12/06/2022 Telephone Cardio PVCA Diag Testing [address] [facility] [address] [place], [place] [id number] Jessica Esqueda PA-C [address] [place], [place] [id number] Echocardiogram Social History Tobacco Use Types Packs/Day [...] 2.6 mg/dL 02/07/2023 8:28 PM EDT [facility] 02/07/2023 11:3 8 AM EDT 02/07/2023 11:39 AM EDT [facility]ative [facility] 02/07/2023 8:28 PM EDT Release to patient->Immediate Jessica Esqueda PA-C LAB [facility] * (ABNORMAL) CHG BASIC METABOLIC PANEL CALCIUM TOTAL (02/07/2023 11:38 AM EDT) GLOMERULAR FILTRATION RATE 54(L) >60 02/07/2023 8:12 PM EDT [facility] Comment: This eGFR result was calculated using the CKD-EPI 2020 Creatinine Equation GLUCOSE 113(H) 70 - 100 mg/dL 02/07/2023 8:12 PM EDT [facility] Comment:Reference range appl icable to fasting specimens only Blood Urea Nitrogen 12 5 - 25 mg/dL 02/07/2023 8:12 PM EDT [facility] CREAT 1.06 0.5 - 1.1 mg/dL 02/07/2023 8:12 PM EDT [facility] NA 141 135 - 145 mEq/L 02/07/2023 8:12 PM EDT [facility] K 4.3 3.5 - 5.5 mmol/L 02/07/2023 8:12 PM EDT [facility] CL 105 96 - 110 mmol/L 02/07/2023 8:12 PM EDT [facility] CARBON DIOXIDE (CO2) 28 21 - 32 mmol/L 02/07/2023 8:12 PM EDT [facility] ANION GAP 8 3 - 11 02/07/2023 [...] Shortness of breath 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 documented in this encounter Care Teams Jockey'S Agent Relationship Specialty Start Date End Date Kathy Christopher MD [address] [place] [address] PCP - General Internal Medicine 01/21/22 Kameron Zuñiga MD Service Architect Cardiovascular Disease 08/04/21 Katya Lopez NP Cardiology 08/04/21 01/30/24 Be Pacheco NP [address] [place] [address] Nurse Practitioner Cardiology 10/17/22 01/30/24 Maycol Infante MD [address] [place] [address] Specialist Pulmonology 10/19/22 Sebastian Martinez MD [address] [place] [address] 384[address] Specialist Ophthalmology 03/21/23 Eve Juan MD [address] [place] [address] [place] [address] Specialist UROGYNECOLOGY 03/21/23 Elisa Romero NP [address] [place] [address] [place] [address] Cardiology 01/31/24 Marcus Murcia DO [address] [place] [address] [facility] [place] [address] Specialist Physiatry 03/26/24 documented as of this encounter
--- OUTSIDE RECORDS SUMMARY | 2025-02-15 13:02 | XMS_ITS | Encounter Summary ---
Author Organization [facility] Address [address] [place] [address] Care Team Providers Care Clinical Support Tech Name Role Phone Wiley Thompson MD Primary Care Provider Kameron Cornejo MD Unavailable Katya Lopez NP Unavailable Unavailab Kathy Haley MD Primary Care Prov ider Be Pacheco NP Unavailable [phone] Maycol Infante MD Unavailable Unavailable Sebastian Martinez MD Unavailable UnavailEve Blackmon MD Unavailable Elisa Romero NP Unavailable [phone] Marcus Murcia DO Unavailable Unavailable Encounter Details Date Type Department Care Team Description 03/10/2016 Orders Only Adult Medicine [address] [id number] Wiley Thompson MD Iron deficiency anemia due [...] [facility] 03/10/2016 H Duncan Sharp MD LAB [facility] [address] [place] [address] documented in this encounter Visit Diagnoses Diagnosis Iron deficiency anemia due to chronic blood loss Iron deficiency anemia secondary to blood loss (chronic) documented in this encounter Care Teams Clinical Support Tech Relationship Specialty Start Date End Date Wiley Thompson MD PCP - General Internal Medicine 06/04/14 01/20/22 Kathy Christopher MD [address] [place] [address] PCP - General Internal Medicine 01/21/22 Kameron Zuñiga MD Solar Designer/Installer Cardiovascular Disease 08/04/21 Katya Lopez NP Cardiology 08/04/21 01/30/24 Be Pacheco NP [address] [place] [address]898 Nurse Practitioner Cardiology 10/17/22 01/30/24 Maycol Infante MD [address] [place] [address] Specialist Pulmonology 10/19/22 Sebastian Martinez MD [address] [place] [address]73 Specialist Ophthalmology 03/21/23 Eve Juan MD [address] [place] [address] [place] [address] Specialist UROGYNECOLOGY 03/21/23 Elisa Romero NP [address] [place] [address] [place] [address] Cardiology 01/31/24 Marcus Murcia DO [address] [facility] [place] [address] Specialist Physiatry 03/26/24 documented as of this encounter
--- OUTSIDE RECORDS SUMMARY | 2025-02-15 13:02 | XMS_ITS | Encounter Summary ---
Author Organization [facility] Address [address] [place] [address] Care Team Providers Care Oven Dauber Name Role Phone Wiley Thompson MD Primary Care Provider Kameron Cornejo MD Unavailable Katya Lopez NP Unavailable Unavailab Kathy Haley MD Primary Care Prov ider Be Pacheco NP Unavailable [phone] Maycol Infante MD Unavailable Unavailable Sebastian Martinez MD Unavailable UnavailEve Blackmon MD Unavailable Elisa Romero NP Unavailable [phone] Marcus Murcia DO Unavailable Unavailable Encounter Details Date Type Department Care Team Description 06/04/2014 SCAN Medical Records [address] [place] [address] Abstract, Provider Social History Tobacco Use Types [...] on filedocumented in this encounter Care Teams Oven Dauber Relationship Specialty Start Date End Date Wiley Thompson MD PCP - General Internal Medicine 06/04/14 01/20/22 Kathy Christopher MD [address] [place] [address] PCP - General Internal Medicine 01/21/22 Kameron Zuñiga MD Ict Managers Cardiovascular Disease 08/04/21 Katya Lopez NP Cardiology 08/04/21 01/30/24 Be Pacheco NP [address] [place] [address]21 Nurse Practitioner Cardiology 10/17/22 01/30/24 Maycol Infante MD [address] [place] [address]25 Specialist Pulmonology 10/19/22 Sebastian Martinez MD [address] [place], [place] [phone] Specialist Ophthalmology 03/21/23 Eve Juan MD [address] [place] [address] [place] [address] Specialist UROGYNECOLOGY 03/21/23 Elisa Romero NP [address] [place] [address] [place] [address] Cardiology 01/31/24 Marcus Murcia DO [address] [place] [address] [place] [address] Specialist Physiatry 03/26/24 documented as of this encounter
--- OUTSIDE RECORDS SUMMARY | 2025-02-15 13:02 | XMS_ITS | Encounter Summary ---
Author Organization [facility] Address [address] [place] [address] Care Team Providers Care Wire Drawing Die Maker Name Role Phone Wiley Thompson MD Primary Care Provider Kameron Cornejo MD Unavailable Katya Lopez NP Unavailable Unavailab Kathy Haley MD Primary Care Prov ider Be Pacheco NP Unavailable Maycol Infante MD Unavailable Unavailable Sebastian Martinez MD Unavailable UnavailEve Blackmon MD Unavailable Elisa Romero NP Unavailable [phone] Marcus Murcia DO Unavailable Unavailable Encounter Details Date Type Department Care Team Description 01/29/2021 Hand Ii Blocker Report Medical Records [address] [place] [address] Maycol Infante MD Social History Tobacco Use [...] filedocumented in this encounter Care Teams Wire Drawing Die Maker Relationship Specialty Start Date End Date Wiley Thompson MD PCP - General Internal Medicine 06/04/14 01/20/22 Kathy Christopher MD [address] [place] [address] PCP - General Internal Medicine 01/21/22 Kameron Zuñiga MD Preliminary School Psychologist Cardiovascular Disease 08/04/21 Katya Lopez NP Cardiology 08/04/21 01/30/24 Be Pacheco NP [address] [place] [address] 59[address] Nurse Practitioner Cardiology 10/17/22 01/30/24 Maycol Infante MD [address] [place] [address] Specialist Pulmonology 10/19/22 Sebastian Martinez MD [address] [place] [address] Specialist Ophthalmology 03/21/23 Eve Juan MD [address] [place] [address] [place] [address] Specialist UROGYNECOLOGY 03/21/23 Elisa Romero NP [address] [place] [address] [place] [address] Cardiology 01/31/24 Marcus Murcia DO [address] [place] [address] [place] [address] Specialist Physiatry 03/26/24 documented as of this encounter
--- OUTSIDE RECORDS SUMMARY | 2025-02-15 13:02 | XMS_ITS | Clinical Summary ---
Author Organization [facility] Address [address] [place] [address] Care Team Providers Care Print Designer Name Role Phone Kathy Christopher MD Primary [...] age to complete this topic Care Teams Print Designer Relationship Specialty Start Date End Date Kathy Christopher MD [address] [place] [address] PCP - General Internal Medicine 09/14/23
--- OUTSIDE RECORDS SUMMARY | 2025-02-15 13:02 | XMS_ITS | Encounter Summary ---
Author Organization [facility] Address [address] [place] [address] Care Team Providers Care Sales Representative Rural Power Name Role Phone Bri Santacruz MD Primary Care Provider Unavailable Wiley Thompson MD Primary Care Provider Kameron Cornejo MD Unavailable Katya Lopez NP Unavailable Unavailab Kathy Haley MD Primary Care Prov ider Be Pacheco NP Unavailable [phone] Maycol Infante MD Unavailable Unavailable Sebastian Martinez MD Unavailable UnavailEve Blackmon MD Unavailable Elisa Romero NP Unavailable [phone] Marcus Murcia DO Unavailable Unavailable Encounter Details Date Type Department Care Team Description 05/01/2014 Talent Development Specialist Report Medical Records [address] [place] [address] Seema Canas MD Social History Tobacco Use [...] filedocumented in this encounter Care Teams Sales Representative Rural Power Relationship Specialty Start Date End Date Bri Santacruz MD PCP - General Internal Medicine 04/23/12 06/03/14 Wiley Thompson MD PCP - General Internal Medicine 06/04/14 01/20/22 Kathy Christopher MD [address] [place] [address] PCP - General Internal Medicine 01/21/22 Kameron Zuñiga MD Unix Administrator Cardiovascular Disease 08/04/21 Katya Lopez NP Cardiology 08/04/21 01/30/24 Be Pacheco NP [address] [place] [address] 79609 Nurse Practitioner Cardiology 10/17/22 01/30/24 Maycol Infante MD [address] [place] [address]15 Specialist Pulmonology 10/19/22 Sebastian Martinez MD [address] [place], [place] [address] Specialist Ophthalmology 03/21/23 Eve Juan MD [address] [place] [address] [place] [address] Specialist UROGYNECOLOGY 03/21/23 Elisa Romero NP [address] [place] [address] [place] [address] Cardiology 01/31/24 Marcus Murcia DO [address] [place] [address] [place] [address] Specialist Physiatry 03/26/24 documented as of this encounter
--- OUTSIDE RECORDS SUMMARY | 2025-02-15 13:02 | XMS_ITS | Encounter Summary ---
Author Organization [facility] Address [address] [place] [address] Care Team Providers Care Conveyor Weigher Operator Name Role Phone Bri Santacruz MD Primary Care Provider Unavailable Wiley Thompson MD Primary Care Provider Kameron Cornejo MD Unavailable Katya Lopez NP Unavailable Unavailab Kathy Haley MD Primary Care Prov ider Be Pacheco NP Unavailable [phone] Maycol Infante MD Unavailable Unavailable Sebastian Martinez MD Unavailable UnavailEve Blackmon MD Unavailable Elisa Romero NP Unavailable [phone] Marcus Murcia DO Unavailable Unavailable Encounter Details Date Type Department Care Team Description 12/31/2013 Telephone Adult Medicine [address] [address] Bri Santacruz MD Social History Tobacco Use [...] on filedocumented in this encounter Care Teams Conveyor Weigher Operator Relationship Specialty Start Date End Date Bri Santacruz MD PCP - General Internal Medicine 04/23/12 06/03/14 Wiley Thompson MD PCP - General Internal Medicine 06/04/14 01/20/22 Kathy Christopher MD [address] [place] [address] PCP - General Internal Medicine 01/21/22 Kameron Zuñiga MD Waiter/Waitress Economy Class Cardiovascular Disease 08/04/21 Katay Lopez NP Cardiology 08/04/21 01/30/24 Be Pacheco NP [address] [place] [address] 9[address]86 Nurse Practitioner Cardiology 10/17/22 01/30/24 Maycol Infante MD [address] [place] [address]27 Specialist Pulmonology 10/19/22 Sebastian Martinez MD [address] [place] [address]83 Specialist Ophthalmology 03/21/23 Eve Juan MD [address] [place] [address] [place] [address] Specialist UROGYNECOLOGY 03/21/23 Elisa Romero NP [address] [place] [address] [place] [address] Cardiology 01/31/24 Marcus Murcia DO [address] [place] [address] [place] [address] Specialist Physiatry 03/26/24 documented as of this encounter
--- OUTSIDE RECORDS SUMMARY | 2025-02-15 13:02 | XMS_ITS | Encounter Summary ---
Author Organization [facility] Address [address] [place] [address] Care Team Providers Care Charm Filter Operator Helper Name Role Phone Lance Lorenzo Primary Care Provider Unavailab Bri Cooper MD Primary Care Provider Unavailable Wiley Thompson MD Primary Care Provider Kameron Cornejo MD Unavailable Katya Lopez NP Unavailable Unavailab Kathy Haley MD Primary Care Prov ider Be Pacheco MANUAL WRITER Unavailable Maycol Infante MD Unavailable Unavailable Sebastian Martinez MD Unavailable UnavailEve Blackmon MD Unavailable Elisa Romero NP Unavailable [phone] Marcus Murcia DO Unavailable Unavailable Encounter Details Date Type Department Care Team Description 01/02/2012 Flat Machine Cutter Report Medical Records [address] [place] [address] Inderjit Bonilla Social History Tobacco Use Types Packs/Day Years Used Date Smoking Tobacco: Never Assessed Sex Assigned at Date Recorded Not on file Job Start Date Occupation Industry Not on file Not on file Not on file documented as of this encounter Plan of Treatment Not on file documented as of this encounter Visit Diagnoses Not on filedocumented in this encounter Care Teams Charm Filter Operator Helper Relationship Specialty Start Date End Date Lance Lorenzo PCP - General Internal Medicine 06/19/11 04/22/12 Bri Santacruz MD PCP - General Internal Medicine 04/23/12 06/03/14 Wiley Thompson MD PCP - General Internal Medicine 06/04/14 01/20/22 Kathy Christopher MD [address] [place] [address] PCP - General Internal Medicine 01/21/22 Kameron Zuñiga MD Thread Cutter Tender Cardiovascular Disease 08/04/21 Katya Lopez NP Cardiology 08/04/21 01/30/24 Be Pacheco NP [address] [place] [address]252 Nurse Practitioner Cardiology 10/17/22 01/30/24 Maycol Infante MD [address] [place] [address] Specialist Pulmonology 10/19/22 Sebastian Martinez MD [address] [place] [address] Specialist Ophthalmology 03/21/23 Eve Juan MD [address] [place] [address] [place] [address] Specialist UROGYNECOLOGY 03/21/23 Elisa Romero NP [address] [place] [address] [place] [address] Cardiology 01/31/24 Marcus Murcia DO [address] [place] [address] [place] [address] Specialist Physiatry 03/26/24 documented as of this encounter
--- OUTSIDE RECORDS SUMMARY | 2025-02-15 13:02 | XMS_ITS | Encounter Summary ---
Author Organization [facility] Address [address] [place] [address] Care Team Providers Care Pipe Supervisor Name Role Phone Wiley Thompson MD Primary Care Provider Kameron Cornejo MD Unavailable Katya Lopez NP Unavailable Unavailab Kathy Haley MD Primary Care Prov ider Be Pacheco NP Unavailable [phone] Maycol Infante MD Unavailable Unavailable Sebastian Martinez MD Unavailable UnavailEve Blackmon MD Unavailable Elisa Romero NP Unavailable [phone] Marcus Murcia DO Unavailable Unavailable Reason for Visit * Reason Comments E-prescribe Rx Request Encounter Details Date Type Department Care Team Description 07/07/2021 Refill Adult Medicine [address] [address] Wiley Thompson MD E-prescribe Rx Request Social [...] Patients current insurance carrier is: Payor: [facility] MCR / Plan: [employer] Storage Systems[employer] $0 [facility] [place] [id number] / Product Type: HMO [id number] documented in this encounter Plan of Treatment Not on file documented as of this encounter Visit Diagnoses Not on filedocumented in this encounter Care Teams Pipe Supervisor Relationship Specialty Start Date End Date Wiley Thompson MD PCP - General Internal Medicine 06/04/14 01/20/22 Kathy Christopher MD [address] [place] [address] PCP - General Internal Medicine 01/21/22 Kameron Zuñiga MD Competitive Athlete Cardiovascular Disease 08/04/21 Katya Lopez NP Cardiology 08/04/21 01/30/24 Be Pacheco NP [address] [place] [address]77 Nurse Practitioner Cardiology 10/17/22 01/30/24 Maycol Infante MD [address] [place] [address] 16608 Specialist Pulmonology 10/19/22 Sebastian Martinez MD [address] [place] [address]10 Specialist Ophthalmology 03/21/23 Eve Juan MD [address] [place] [address] [place] [address] Specialist UROGYNECOLOGY 03/21/23 Elisa Romero NP [address] [place] [address] [place] [address] Cardiology 01/31/24 Marcus Murcia DO [address] [place] [address] [place] [address] Specialist Physiatry 03/26/24 documented as of this encounter
--- OUTSIDE RECORDS SUMMARY | 2025-02-15 13:02 | XMS_ITS | Encounter Summary ---
Author Organization [facility] Address [address] [place] [address] Care Team Providers Care Skin Care Instructor Name Role Phone Wiley Thompson MD Primary Care Provider Kameron Cornejo MD Unavailable Katya Lopez NP Unavailable Unavailab Kathy Haley MD Primary Care Prov ider Be Pacheco NP Unavailable [phone] Maycol Infante MD Unavailable Unavailable Sebastian Martinez MD Unavailable UnavailEve Blackmon MD Unavailable Elisa Romero NP Unavailable [phone] Marcus Murcia DO Unavailable Unavailable Reason for Visit * Reason Comments E-prescribe Rx Request Encounter Details Date Type Department Care Team Description 05/25/2021 Refill Adult Medicine [address] [address] Wiley Thompson MD E-prescribe Rx Request Social [...] N/A Patients current insurance carrier is: Payor: [facility] [employer] MCR / Plan: O $0 [facility] [id number] / Product Type: HMO [id number] documented in this encounter Plan of Treatment Not on file documented as of this encounter Visit Diagnoses Not on filedocumented in this encounter Care Teams Skin Care Instructor Relationship Specialty Start Date End Date Wiley Thompson MD PCP - General Internal Medicine 06/04/14 01/20/22 Kathy Christopher MD [address] [place] [address] PCP - General Internal Medicine 01/21/22 Kameron Zuñiga MD Clinical Cytopathologist Cardiovascular Disease 08/04/21 Katya Lopez, IRMA Cardiology 08/04/21 01/30/24 Be Pacheco NP [address] [place] [address]603 Nurse Practitioner Cardiology 10/17/22 01/30/24 Maycol Infante MD [address] [place] [address] Specialist Pulmonology 10/19/22 Sebastian Martinez MD [address] [place] [address] Specialist Ophthalmology 03/21/23 Eve Juan MD [address] [place] [address] [place] [address] Specialist UROGYNECOLOGY 03/21/23 Elisa Romero NP [address] [place] [address] [place] [address] Cardiology 01/31/24 Marcus Murcia DO [address] [place] [address] [place] [address] Specialist Physiatry 03/26/24 documented as of this encounter
--- OUTSIDE RECORDS SUMMARY | 2025-02-15 13:02 | XMS_ITS | Encounter Summary ---
Author Organization [facility] Address [address] [place] [address] Care Team Providers Care New Media Strategist Name Role Phone Kameron Zuñiga MD Unavailable Katya Lopez NP Unavailable Unavailab Kathy Haley MD Primary Care Prov ider Be Pacheco NP Unavailable [phone] Maycol Infante MD Unavailable Unavailable Sebastian Martinez MD Unavailable UnavailEve Blackmon MD Unavailable Elisa Romero NP Unavailable [phone] Marcus Murcia DO Unavailable Unavailable Encounter Details Date Type Department Care Team Description 10/25/2022 SCAN Medical Records [address] [place] [address] Abstract, Provider Social History Tobacco Use Types [...] on filedocumented in this encounter Care Teams New Media Strategist Relationship Specialty Start Date End Date Kathy Christopher MD [address] [place] [address] PCP - General Internal Medicine 01/21/22 Kameron Zuñiga MD Dry Mop Maker Cardiovascular Disease 08/04/21 Katya Lopez NP Cardiology 08/04/21 01/30/24 Be Pacheco NP [address] [place] [address] Nurse Practitioner Cardiology 10/17/22 01/30/24 Maycol Infante MD [address] [place] [address] Specialist Pulmonology 10/19/22 Sebastian Martinez MD [address] [place], [place] [address] Specialist Ophthalmology 03/21/23 Eve Juan MD [address] [place] [address] [place] [address] Specialist UROGYNECOLOGY 03/21/23 Elisa Romero NP [address] [place] [address] [place] [address] Cardiology 01/31/24 Marcus Murcia DO [address] [place] [address] [place] [address] Specialist Physiatry 03/26/24 documented as of this encounter
--- OUTSIDE RECORDS SUMMARY | 2025-02-15 13:02 | XMS_ITS | Encounter Summary ---
Author Organization [facility] Address [address] [place] [address] Care Team Providers Care Television Mechanic Name Role Phone Kameron Zuñiga MD Unavailable Katya Lopez NP Unavailable Unavailab Kathy Haley MD Primary Care Prov ider Be Pacheco NP Unavailable [phone] Maycol Infante MD Unavailable Unavailable Sebastian Martinez MD Unavailable UnavailEve Blackmon MD Unavailable Elisa Romero NP Unavailable [phone] Marcus Murcia DO Unavailable Unavailable Encounter Details Date Type Department Care Team Description 05/09/2023 Visually Impaired Teacher Report Medical Records [address] [place] [address] Lalitha Diego, [facility]- Social History Tobacco Use Types Packs/Day Years [...] filedocumented in this encounter Care Teams Television Mechanic Relationship Specialty Start Date End Date Kathy Christopher MD [address] [place] [address] PCP - General Internal Medicine 01/21/22 Kameron Zuñiga MD Librarian Helper Cardiovascular Disease 08/04/21 Katya Lopez NP Cardiology 08/04/21 01/30/24 Be Pacheco NP [address] [place] [address] Nurse Practitioner Cardiology 10/17/22 01/30/24 Maycol Infante MD [address] [place] [address] Specialist Pulmonology 10/19/22 Sebastian Martinez MD [address] [place] [address] Specialist Ophthalmology 03/21/23 Eve Juan MD [address] [place] [address] [place] [address] Specialist UROGYNECOLOGY 03/21/23 Elisa Romero NP [address] [place] [address] [place] [address] Cardiology 01/31/24 Marcus Murcia DO [address] [place] [address] [place] [address] Specialist Physiatry 03/26/24 documented as of this encounter
--- OUTSIDE RECORDS SUMMARY | 2025-02-15 13:02 | XMS_ITS | Encounter Summary ---
Author Organization [facility] Address [address] [place] [address] Care Team Providers Care Hogshead Builder Name Role Phone Wiley Thompson MD Primary Care Provider Kameron Cornejo MD Unavailable Katya Lopez SENIOR MANUFACTURING TEST ENGINEER Unavailable Unavailab Kathy Haley MD Primary Care Prov ider Be Pacheco SENIOR MANUFACTURING TEST ENGINEER Unavailable [phone] Maycol Infante MD Unavailable Unavailable Sebastian Martinez MD Unavailable UnavailEve Blackmon MD Unavailable Elisa Romero NP Unavailable [phone] Marcus Murcia DO Unavailable Unavailable Encounter Details Date Type Department Care Team Description 12/07/2018 As400 Programmer Report Medical Records [address] [place] [address] Asya Waller, IRMA Social History Tobacco Use [...] on filedocumented in this encounter Care Teams Hogshead Builder Relationship Specialty Start Date End Date Wiley Thompson MD PCP - General Internal Medicine 06/04/14 01/20/22 Kathy Christopher MD [address] [place] [address] 19094 PCP - General Internal Medicine 01/21/22 Kameron Zuñiga MD Gameplay Engineer Cardiovascular Disease 08/04/21 Katya Lopez, IRMA Cardiology 08/04/21 01/30/24 Be Pacheco NP [address] [place] [address] Nurse Practitioner Cardiology 10/17/22 01/30/24 Maycol Infante MD [address] [place] [address] Specialist Pulmonology 10/19/22 Sebastian Martinez MD [address] [place] [address] Specialist Ophthalmology 03/21/23 Eve Juan MD [address] [place] [address] [place] [address] Specialist UROGYNECOLOGY 03/21/23 Elisa Romero NP [address] [place] [address] [place] [address] Cardiology 01/31/24 Marcus Murcia DO [address] [place] [address] [place] [address] Specialist Physiatry 03/26/24 documented as of this encounter
--- OUTSIDE RECORDS SUMMARY | 2025-02-15 13:02 | XMS_ITS | Encounter Summary ---
Author Organization [facility] Address [address] [place] [address] Care Team Providers Care Director Intelligence Analysis Programs Name Role Phone Wiley Thompson MD Primary Care Provider Kameron Cornejo MD Unavailable Katya Lopez NP Unavailable Unavailab Kathy Haley MD Primary Care Prov ider Be Pacheco NP Unavailable [phone] Maycol Infante MD Unavailable Unavailable Sebastian Martinez MD Unavailable UnavailEve Blackmon MD Unavailable Elisa Romero NP Unavailable [phone] Marcus Murcia DO Unavailable Unavailable Encounter Details Date Type Department Care Team Description 07/28/2021 Hospital Medical Records [address] [place] [address] Abstract, Provider Social History Tobacco Use Types [...] filedocumented in this encounter Care Teams Director Intelligence Analysis Programs Relationship Specialty Start Date End Date Wiley Thompson MD PCP - General Internal Medicine 06/04/14 01/20/22 Kathy Christopher MD [address] [place] [address] PCP - General Internal Medicine 01/21/22 Kameron Zuñiga MD Cattle Sticker Cardiovascular Disease 08/04/21 Katya Lopez NP Cardiology 08/04/21 01/30/24 Be Pacheco NP [address] [place] [address] Nurse Practitioner Cardiology 10/17/22 01/30/24 Maycol Infante MD [address] [place] [address] Specialist Pulmonology 10/19/22 Sebastian Martinez MD [address] [place] [address] Specialist Ophthalmology 03/21/23 Eve Juan MD [address] [place] [address] [place] [address] Specialist UROGYNECOLOGY 03/21/23 Elisa Romero NP [address] [place] [address] [place] [address] Cardiology 01/31/24 Marcus Murcia DO [address] [place] [address] [place] [address] Specialist Physiatry 03/26/24 documented as of this encounter
--- OUTSIDE RECORDS SUMMARY | 2025-02-15 13:02 | XMS_ITS | Encounter Summary ---
Author Organization [facility] Address [address] [place] [address] Care Team Providers Care Dolly Pusher Name Role Phone Wiley Thompson MD Primary Care Provider Kameron Cornejo MD Unavailable Katya Lopez NP Unavailable Unavailab Kathy Christopher MD Primary Care Prov ider Be Pacheco NP Unavailable [phone] Maycol Infante MD Unavailable Unavailable Sebastian Martinez MD Unavailable UnavailEve Blackmon MD Unavailable Elisa Romero NP Unavailable [phone] Marcus Murcia DO Unavailable Unavailable Encounter Details Date Type Department Care Team Description 01/05/2016 Sports Management Professor Report Medical Records [address] [place] [address] Seema Canas MD Social History Tobacco Use [...] on filedocumented in this encounter Care Teams Dolly Pusher Relationship Specialty Start Date End Date Wiley Thompson MD PCP - General Internal Medicine 06/04/14 01/20/22 Kathy Christopher MD [address] [place] [address] PCP - General Internal Medicine 01/21/22 Kameron Zuñiga MD Drag Sawyer Cardiovascular Disease 08/04/21 Katya Lopez, IRMA Cardiology 08/04/21 01/30/24 Be Pacheco NP [address] [place] [address] Nurse Practitioner Cardiology 10/17/22 01/30/24 Maycol Infante MD [address] [place] [address]22 Specialist Pulmonology 10/19/22 Sebastian Martinez MD [address] [place] [address] Specialist Ophthalmology 03/21/23 Eve Juan MD [address] [place] [address] [place] [address] Specialist UROGYNECOLOGY 03/21/23 Elisa Romero NP [address] [place] [address] [place] [address] Cardiology 01/31/24 Marcus Murcia DO [address] [place] [address] [place] [address] Specialist Physiatry 03/26/24 documented as of this encounter
--- OUTSIDE RECORDS SUMMARY | 2025-02-15 13:02 | XMS_ITS | Encounter Summary ---
Author Organization [facility] Address [address] [place] [address] Care Team Providers Care Electric Blanket Packer Name Role Phone Wiley Thompson MD Primary Care Provider Kameron Cornejo MD Unavailable Katya Lopez NP Unavailable Unavailab Kathy Haley MD Primary Care Prov ider Be Pacheco NP Unavailable [phone] Maycol Infante MD Unavailable Unavailable Sebastian Martinez MD Unavailable UnavailEve Blackmon MD Unavailable Elisa Romero NP Unavailable [phone] Marcus Murcia DO Unavailable Unavailable Encounter Details Date Type Department Care Team Description 07/28/2021 Teacher Assistant Report Medical Records [address] [place] [address] Abstract, Provider Social History Tobacco Use Types [...] filedocumented in this encounter Care Teams Electric Blanket Packer Relationship Specialty Start Date End Date Wiley Thompson MD PCP - General Internal Medicine 06/04/14 01/20/22 Kathy Christopher MD [address] [place] [address] PCP - General Internal Medicine 01/21/22 Kameron Zuñiga MD Preparation Supervisor Canning Cardiovascular Disease 08/04/21 Katya Lopez NP Cardiology 08/04/21 01/30/24 Be Pacheco NP [address] [place] [address] 64604 Nurse Practitioner Cardiology 10/17/22 01/30/24 Maycol Infante MD [address] [place] [address] Specialist Pulmonology 10/19/22 Sebastian Martinez MD [address] [place] [address] Specialist Ophthalmology 03/21/23 Eve Juan MD [address] [place] [address] [place] [address] Specialist UROGYNECOLOGY 03/21/23 Elisa Romero NP [address] [place] [place] [address] [place] [address] Cardiology 01/31/24 Marcus Murcia DO [address] [place] [address] [place] [address] Specialist Physiatry 03/26/24 documented as of this encounter
--- OUTSIDE RECORDS SUMMARY | 2025-02-15 13:02 | XMS_ITS | Encounter Summary ---
Author Organization [facility] Address [address] [place] [address] Care Team Providers Care Journeyman Electrician Name Role Phone Wiley Thompson MD Primary Care Provider Kameron Cornejo MD Unavailable Katya Lopez NP Unavailable Unavailab Kathy Haley MD Primary Care Prov ider Be Pacheco NP Unavailable [phone] Maycol Infante MD Unavailable Unavailable Sebastian Martinez MD Unavailable UnavailEve Blackmon MD Unavailable Elisa Romero NP Unavailable [phone] Marcus Murcia DO Unavailable Unavailable Encounter Details Date Type Department Care Team Description 03/05/2021 Lead Machinist Report Medical Records [address] [place] [address] Maycol Infante MD Social History Tobacco Use [...] on filedocumented in this encounter Care Teams Journeyman Electrician Relationship Specialty Start Date End Date Wiley Thompson MD PCP - General Internal Medicine 06/04/14 01/20/22 Kathy Christopher MD [address] [place] [address] PCP - General Internal Medicine 01/21/22 Kameron Zuñiga MD Body Coverer Cardiovascular Disease 08/04/21 Katya Lopez NP Cardiology 08/04/21 01/30/24 Be Pacheco NP [address] [place] [address] Nurse Practitioner Cardiology 10/17/22 01/30/24 Maycol Infante MD [address] [place] [address]172 Specialist Pulmonology 10/19/22 Sebastian Martinez MD [address] [place] [address]326 Specialist Ophthalmology 03/21/23 Eve Juan MD [address] [place] [address] [place] [address] Specialist UROGYNECOLOGY 03/21/23 Elisa Romero NP [address] [place] [address] [place] [address] Cardiology 01/31/24 Marcus Murcia DO [address] [place] [address] [place] [address] Specialist Physiatry 03/26/24 documented as of this encounter
--- OUTSIDE RECORDS SUMMARY | 2025-02-15 13:02 | XMS_ITS | Encounter Summary ---
Author Organization [facility] Address [address] [place] [address] Care Team Providers Care Order Entry Technician Name Role Phone Wiley Thompson MD Primary Care Provider Kameron Cornejo MD Unavailable Katya Lopez NP Unavailable Unavailab Kathy Haley MD Primary Care Prov ider Be Pacheco NP Unavailable [phone] Maycol Infante MD Unavailable Unavailable Sebastian Martinez MD Unavailable UnavailEve Blackmon MD Unavailable Elisa Romero NP Unavailable [phone] Marcus Murcia DO Unavailable Unavailable Encounter Details Date Type Department Care Team Description 11/21/2018 Orders Only Medical Records [address] [place] [address] Maycol Infante MD Social History Tobacco Use [...] on filedocumented in this encounter Care Teams Order Entry Technician Relationship Specialty Start Date End Date Wiley Thompson MD PCP - General Internal Medicine 06/04/14 01/20/22 Kathy Christopher MD [address] [place] [address] PCP - General Internal Medicine 01/21/22 Kameron Zuñiga MD Micrographics Services Supervisor Cardiovascular Disease 08/04/21 Katya Lopez NP Cardiology 08/04/21 01/30/24 Be Pacheco NP [address] [place] [address] 58632 Nurse Practitioner Cardiology 10/17/22 01/30/24 Maycol Infante MD [address] [place] [address] 68721 Specialist Pulmonology 10/19/22 Sebastian Martinez MD [address] [place] [address]754 Specialist Ophthalmology 03/21/23 Eve Juan MD [address] [place] [address] [place] [address] Specialist UROGYNECOLOGY 03/21/23 Elisa Romero NP [address] [place] [address] [place] [address] Cardiology 01/31/24 Marcus Murcia DO [address] [place] [address] [place] [address] Specialist Physiatry 03/26/24 documented as of this encounter
--- OUTSIDE RECORDS SUMMARY | 2025-02-15 13:02 | XMS_ITS | Encounter Summary ---
Author Organization [facility] Address [address] [place] [address] Care Team Providers Care Legal Service Specialist Name Role Phone Kameron Zuñiga MD Unavailable Katya Lopez NP Unavailable Unavailab Kathy Haley MD Primary Care Prov ider Be Pacheco NP Unavailable [phone] Maycol Infante MD Unavailable Unavailable Sebastian Martinez MD Unavailable UnavailEve Blackmon MD Unavailable Elisa Romero NP Unavailable [phone] Marcus Murcia DO Unavailable Unavailable Encounter Details Date Type Department Care Team Description 02/14/2023 Clinical Case Manager Report Medical Records [address] [place] [address] Pierre Oliva, PAAdelaidaC Social History Tobacco Use [...] on filedocumented in this encounter Care Teams Legal Service Specialist Relationship Specialty Start Date End Date Kathy Christopher MD [address] [place] [address] PCP - General Internal Medicine 01/21/22 Kameron Zuñiga MD Tankman Cardiovascular Disease 08/04/21 Katya Lopez NP Cardiology 08/04/21 01/30/24 Be Pacheco NP [address] [place] [address]111 Nurse Practitioner Cardiology 10/17/22 01/30/24 Maycol Infante MD [address] [place] [address] 89929 Specialist Pulmonology 10/19/22 Sebastian Martinez MD [address] [place] [address] 08267 Specialist Ophthalmology 03/21/23 Eve Juan MD [address] [place] [address] [place] [address] Specialist UROGYNECOLOGY 03/21/23 Elisa Romero NP [address] [place] [address] [place] [address] Cardiology 01/31/24 Marcus Murcia DO [address] [place] [address] [place] [address] Specialist Physiatry 03/26/24 documented as of this encounter
--- OUTSIDE RECORDS SUMMARY | 2025-02-15 13:02 | XMS_ITS | Encounter Summary ---
Author Organization [facility] Address [address] [place] [address] Care Team Providers Care Crew Chief Name Role Phone Kameron Zuñiga MD Unavailable Katya Lopez NP Unavailable Unavailab le Kathy Christopher MD Primary Care Prov ider Be Pacheco NP Unavailable [phone] Maycol Infante MD Unavailable Unavailable Sebastian Martinez MD Unavailable UnavailEve Blackmon MD Unavailable Elisa Romero NP Unavailable [phone] Marcus Murcia DO Unavailable Unavailable Encounter Details Date Type Department Care Team Description 07/19/2023 Patient Registration Specialist Report Medical Records [address] [place] [address] Maycol Infante MD Social History Tobacco Use [...] on filedocumented in this encounter Care Teams Crew Chief Relationship Specialty Start Date End Date Kathy Christopher MD [address] [place], [place] [phone] PCP - General Internal Medicine 01/21/22 Kameron Zuñiga MD Building Construction Estimator Cardiovascular Disease 08/04/21 Katya Lopez NP Cardiology 08/04/21 01/30/24 Be Pacheco NP [address] [place] [address] 48012 Nurse Practitioner Cardiology 10/17/22 01/30/24 Maycol Infante MD [address] [place] [address] 49081 Specialist Pulmonology 10/19/22 Sebastian Martinez MD [address] [place] [address] Specialist Ophthalmology 03/21/23 Eve Juan MD [address] [place] [address] [place] [address] Specialist UROGYNECOLOGY 03/21/23 Elisa Romero NP [address] [place] [address] [place] [address] Cardiology 01/31/24 Marcus Murcia DO [address] [place] [address] [place] [address] Specialist Physiatry 03/26/24 documented as of this encounter
--- OUTSIDE RECORDS SUMMARY | 2025-02-15 13:02 | XMS_ITS | Encounter Summary ---
Author Organization [facility] Address [address] [place] [address] Care Team Providers Care J2Ee Programmer Name Role Phone Kameron Zuñiga MD Unavailable Katya Lopez NP Unavailable Unavailab Kathy Haley MD Primary Care Prov ider Be Pacheco NP Unavailable [phone] Maycol Infante MD Unavailable Unavailable Sebastian Martinez MD Unavailable UnavailEve Blackmon MD Unavailable Elisa Romero NP Unavailable [phone] Marcus Murcia DO Unavailable Unavailable Encounter Details Date Type Department Care Team Description 04/07/2023 Orders Only Medical Records [address] [place] [address] [facility] Social History Tobacco Use Types [...] this encounter Results * OUTSIDE CT (03/30/2023) [facility] RADIOLOGY documented in this encounter Visit Diagnoses Not on filedocumented in this encounter Care Teams J2Ee Programmer Relationship Specialty Start Date End Date Kathy Christopher MD [address] [place] [address] 17179 PCP - General Internal Medicine 01/21/22 Kameron Zuñiga MD Supervisor Felling Bucking Cardiovascular Disease 08/04/21 Katya Lopez NP Cardiology 08/04/21 01/30/24 Be Pacheco NP [address] [place] [address] 67643 Nurse Practitioner Cardiology 10/17/22 01/30/24 Maycol Infante MD [address] [place] [address] 86055 Specialist Pulmonology 10/19/22 Sebastian Martinez MD [address] [place] [address] 26035 Specialist Ophthalmology 03/21/23 Eve Juan MD [address] [place] [address] [place] [address] Specialist UROGYNECOLOGY 03/21/23 Elisa Romero NP [address] [place] [address] [place] [address] Cardiology 01/31/24 Marcus Murcia DO [address] [place] [address] [place] [address] Specialist Physiatry 03/26/24 documented as of this encounter
--- OUTSIDE RECORDS SUMMARY | 2025-02-15 13:02 | XMS_ITS | Encounter Summary ---
Author Organization [facility] Address [address] [place] [address] Care Team Providers Care Hand Mold Maker Name Role Phone Wiley Thompson MD Primary Care Provider Kameron Cornejo MD Unavailable Katya Lopez NP Unavailable Unavailab Kathy Christopher MD Primary Care Prov ider Be Pacheco NP Unavailable [phone] Maycol Infante MD Unavailable Unavailable Sebastian Martinez MD Unavailable UnavailEve Blackmon MD Unavailable Elisa Romero NP Unavailable [phone] Marcus Murcia DO Unavailable Unavailable Encounter Details Date Type Department Care Team Description 12/24/2018 Release of Information Medical Records [address] [place] [address]24 Abstract, Provider Social History Tobacco Use Types [...] filedocumented in this encounter Care Teams Hand Mold Maker Relationship Specialty Start Date End Date Wiley Thompson MD PCP - General Internal Medicine 06/04/14 01/20/22 Kathy Christopher MD [address] [place] [address] 35172 PCP - General Internal Medicine 01/21/22 Kameron Zuñiga MD Garage Supervisor Cardiovascular Disease 08/04/21 Katya Lopez, IRMA Cardiology 08/04/21 01/30/24 Be Pacheco NP [address] [place] [address] 89907 Nurse Practitioner Cardiology 10/17/22 01/30/24 Maycol Infante MD [address] [place] [address] 29286 Specialist Pulmonology 10/19/22 Sebastian Martinez MD [address] [place] [address] 45758 Specialist Ophthalmology 03/21/23 Eve Juan MD [address] [place] [address] [place] [address] Specialist UROGYNECOLOGY 03/21/23 Elisa Romero NP [address] [place] [address] [place] [address] Cardiology 01/31/24 Marcus Murcia DO [address] [place] [address] [place] [address] Specialist Physiatry 03/26/24 documented as of this encounter
--- OUTSIDE RECORDS SUMMARY | 2025-02-15 13:02 | XMS_ITS | Encounter Summary ---
Author Organization [facility] Address [address] [place] [address] Care Team Providers Care Event Coordinator Name Role Phone Bri Santacruz MD Primary Care Provider Unavailable Wiley Thompson MD Primary Care Provider Kameron Cornejo MD Unavailable Katya Lopez NP Unavailable Unavailab Kathy Haley MD Primary Care Prov ider Be Pacheco NP Unavailable Maycol Infante MD Unavailable Unavailable Sebastian Martinez MD Unavailable UnavailEve Blackmon MD Unavailable Elisa Romero NP Unavailable [phone] Marcus Murcia DO Unavailable Unavailable Encounter Details Date Type Department Care Team Description 10/23/2012 Controlled Substance Contract with [facility] Medical Records [address] [place] [address]31 Abstract, Provider Social History Tobacco Use Types [...] filedocumented in this encounter Care Teams Event Coordinator Relationship Specialty Start Date End Date Bri Santacruz MD PCP - General Internal Medicine 04/23/12 06/03/14 Wiley Thompson MD PCP - General Internal Medicine 06/04/14 01/20/22 Kathy Christopher MD [address] [place] [address] 88340 PCP - General Internal Medicine 01/21/22 Kameron Zuñiga MD Transit Specialist Cardiovascular Disease 08/04/21 Katya Lopez NP Cardiology 08/04/21 01/30/24 Be Pacheco NP [address] [place] [address] 00545 Nurse Practitioner Cardiology 10/17/22 01/30/24 Maycol Infante MD [address] [place] [address] 58193 Specialist Pulmonology 10/19/22 Sebastian Martinez MD [address] [place], [place] [address] Specialist Ophthalmology 03/21/23 Eve Juan MD [address] [place] [address] [place] [address] Specialist UROGYNECOLOGY 03/21/23 Elisa Romero NP [address] [place] [address] [place] [address] Cardiology 01/31/24 Marcus Murcia DO [address] [place] [address] [place] [address] Specialist Physiatry 03/26/24 documented as of this encounter
[2025-02-15 13:16] LABS: Anion Gap 18 (12-20); Blood Urea Nitrogen 24 mg/dL (9-16); Calcium 9.4 mg/dL (8.4-10.2); Carbon Dioxide 23 mmol/L (22-29); Chloride 106 mmol/L (96-108); Creatinine Clr Calc Pharmacy 36.3; Estimated Glomerular Filt Rate 45; Potassium 4.2 mmol/L (3.3-5.1); Sodium 143 mmol/L (135-145)
[2025-02-15 14:32] VITALS: BP 114/61; PULSE 86; RESP 18; TEMP 36.8; O2SAT 98
[2025-02-15 15:35] LABS: Appearance Urine Turbid; Glucose Urine UA Negative (Negative); PH 6.0 (5.0-9.0); Specific Gravity - Urine 1.015 (1.005-1.025); UMIC TRIGGER UACC YES
[2025-02-15] MEDS: iohexoL 350 MG/ML 100 ML INFUS..BTL IV (16:08)
[2025-02-15 16:14] LABS: UACC Culture Trigger YES
[2025-02-15 16:43] VITALS: BP 139/72; PULSE 86; RESP 18; TEMP 36.7; O2SAT 97
[2025-02-15 17:07] LABS: Reflex Lactate? Lactic Acid Added
--- NOTE | 2025-02-15 17:20 | P.HPHOSP_ITS ---
History of Present Illness Date of Service: 02/15/25 Chief Complaint: dysuria 79F PMH chronic hypoxic respiratory failure due to COPD on 2 L home O2, diabetes, GERD, IBS, hypertension, obesity, recent ESBL UTI December 2024 presented with dysuria and suprapubic pain. Patient states symptoms began 3 days prior to presentation. Suprapubic pressure-like pain 10/10, continuous, associated with dysuria and chills. Reports grayish urine. Patient denies any fevers, chest pain, shortness of breath. In ED noted to have leukocytosis and pyuria/bacturia. Review of Systems 2 Review of Systems: Yes all other systems are reviewed and are negative [facility] Medical History CKD (chronic kidney disease) stage 3, GFR 30-59 ml/min Obesity (BMI 30.0-34.9) Chronic respiratory failure Asthma-COPD overlap syndrome Incontinence in female History of adenomatous polyp of colon Pneumonitis Bronchopneumonia Hypogammaglobulinemia Chronic rhinitis Dizziness Headache Hyperlipidemia HTN (hypertension) Diabetes COPD (chronic obstructive pulmonary disease) Family History Mother No problems noted. Father No problems noted. Surgical History S/P right coronary artery (RCA) stent placement H/O colonoscopy History of foot surgery History of toe surgery History of bunionectomy Social History Household Members: Family Housing: Apartment Do you presently have visiting nurse or other home services: Yes ([employer]) Alcohol intake: never Patient Tobacco Use Status: Former Tobacco user Tobacco use type: Cigarette Second Hand Smoke Exposure: No Advance Directives: Yes Advance Directives on File: Yes Advance Directives Date on File: 10/03/23 service: No Current occupational status: retired Sexual orientation: Straight/Heterosexual Gender identity: Female Meds Allergies Allergy/AdvReac Type Severity Reaction Status Date / Time amoxicillin (Augmentin) Allergy Mild Rash Verified 02/15/25 12:43 clavulanic acid (From Allergy Mild RASH Verified 02/15/25 12:43 Augmentin) Active Medications: Current Medications Acetaminophen (Acetaminophen 325 Mg Tablet) 650 mg PO Q6H PRN PRN Reason: Pain, Mild 1-3,fever,headache Calcium Carbonate (Calcium Carbonate 750 Mg Tab.Chew) 750 mg PO Q4H PRN PRN Reason: Heartburn Magnesium Hydroxide (Milk Of Magnesia 30 Ml Oral.Susp) 30 ml PO DAILY PRN PRN Reason: Constipation Melatonin (Melatonin 3 Mg Tablet) 6 mg PO BEDTIME PRN PRN Reason: Insomnia Meropenem (Meropenem 1 Gm Vial) 1 gm IVPUSH Q8H [facility] Sodium Chloride (0.9 % Sodium Chloride Flush 3 Ml Syringe) 3 ml IVFLUSH QSHIFT [facility] Home Medications ?Medication ?Instructions ?Recorded ?Confirmed ?Last Taken ?Type cetirizine 10 mg tablet 10 mg PO DAILY 03/21/2012/1712/27/24 History nitroglycerin 0.4 mg sublingual 0.4 mg sublingual ONCE PRN Chest 03/21/20 12/27/24 06/18/24 History tablet Pain albuterol sulfate 2.5 mg/3 mL 2.5 mg inhalation Q4H MS N wheezing 04/28/20 12/27/24 06/18/24 History (0.083 %) solution for nebulization melatonin 10 mg tablet 10 mg PO BEDTIME PRN Sleep 0 08/19/21 12/27/24 06/18/24 History aspirin 81 mg tablet,delayed 81 mg PO DAILY 09/02/21 0 12/27/24 12/27/24 History release isosorbide mononitrate 30 mg 30 mg PO DAILY 09/02/21 0 12/27/24 12/27/24 History tablet,extended release 24 hr Oxygen Home Use 09/16/22 10/08/24 Unknown H istory nebulizers 09/16/22 10/08/24 Unknown H istory metformin 500 mg tablet,extended 500 mg PO DAILY 10/2912/27/24 06/18/24 History release 24 hr metoprolol tartrate 50 mg tablet 50 mg PO BID 06/17/24 12/27/24 12/27/24 History atorvastatin 80 mg tablet 80 mg PO DAILY 06/20/2412/1712/27/24 History estradiol 0.01% (0.1 mg/gram) 2 g vaginal NEEDED 12/27/24 Unknown History vaginal cream fluticasone fur. 200 mcg-umeclid 1 ea inhalation DAILY 12/27/24 12/27/24 12/27/24 History 62.5 mcg-vilant 25 mcg inhalat.powder (Trelegy Ellipta) furosemide 20 mg tablet 20 mg PO DAILY 12/27/2412/1712/27/24 History phenazopyridine 100 mg tablet 100 mg PO TID 12/27/24 0 12/27/24 12/27/24 History Physical Exam 2 Vital Signs and Narrative: Vital Signs: Last Vital Signs Temp 98.0 F 02/15/25 16:43 Pulse 86 02/15/25 16:43 Resp 18 02/15/25 16:43 BP 139/72 02/15/25 16:43 Pulse Ox 97 02/15/25 16:43 O2 Del Method Room Air 02/15/25 16:43 BMI result Body Mass Index 30.2 General: AO X 3, in pain Resp: CTA bilateral, no accessory muscles used CVS: S1,S2,RRR GI: soft, non distended, suprapubic tenderness Neuro: motor grossly intact, alert Psych: appropriate affect, appropriate insight Results Labs 02/15/25 12:51 02/15/25 12:51 Labs: Laboratory Results - last 24 hr 02/15/25 02/15/25 02/15/25 12:51 15:03 15:27 MCV 86.6 MCH 29.9 MCHC 34.5 RDW 15.7 Plt Count 348 MPV 9.9 Immature Gran % (Auto) 1.0 H Neut % (Auto) 73.2 H Lymph % (Auto) 12.9 L [place] % (Auto) 12.8 H Eos % (Auto) 0.0 Baso % (Auto) 0.1 Lymph # (Auto) 2.5 [place] # (Auto) 2.5 H Eos # (Auto) 0.0 Baso # (Auto) 0.0 Abs Immat Gran (auto) 0.19 H Absolute Neuts (auto) 14.3 H Absolute Nucleated RBC 0.030 H Nucleated RBC % (auto) 0.2 Smear Tech's Comments VERIFIED Anion Gap 18 Estim Creat Clear Calc 36.3 Estimated GFR 45 Random Glucose 131 H Lactic Acid 2.3 H* Calcium 9.4 Urine Color Yellow Urine Appearance Turbid Urine pH 6.0 Ur Specific [place] 1.015 Urine Protein 30 (1+) H Urine Glucose (UA) Negative Urine Ketones Negative Urine Blood Moderate (2+) H Urine Nitrite Positive H Ur Leukocyte Esterase Large (3+) H Urine RBC 6-10 H Urine WBC >50 H Ur Squamous Epith Cells 0-2 Urine Bacteria 4+ Hyaline Casts 0-2 Assessment and Plan (1) Lower urinary tract symptoms: Status: Acute Plan 79F PMH chronic hypoxic respiratory failure due to COPD on 2 L home O2, diabetes, GERD, IBS, hypertension, obesity, recent ESBL UTI December 2024 presented with dysuria and suprapubic pain Urinary tract infection with recent ESBL IV ertapenem, follow up culture CT showed stable peripherally enhancing fluid density focus inferior to the urinary bladder possibly indicating uninfected cystic lesion versus dilated urethra underlying neoplasm not excluded- eval Chronic hypoxic respiratory failure due to COPD Stable on 2 L Diabetes insulin sliding scale obesity weight loss dvt prophylaxis - lovenox DNR/DNI Patient with recent multidrug resistant infection therefore expected require at least 2 midnights inpatient follow up culture Quality Stroke Does the patient have a stroke diagnosis?: No VTE Prior VTE?: Yes VTE Risk Level:: Medical - moderate - high VTE Device Contraindication: Treatment Not Indicated VTE Drug Contraindication: N/A - Med Ordered
[2025-02-15 18:08] LABS: ~Lactic Acid-LAB USE ONLY 3.2 mmol/L (0.5-2.0)
--- NOTE | 2025-02-15 18:51 | PHA.MEDREC ---
Pharmacy Consult ? Medication Reconciliation Pharmacy has completed the medication reconciliation.Med rec complete, was able to talk with patient and looked at previous discharge notes from end december
[2025-02-15 18:52] LABS: Cancel Lactic Acid Canceled
[2025-02-15 18:59] VITALS: BP 164/96; PULSE 114; RESP 20; TEMP 36.4; O2SAT 94
[2025-02-15 20:59] VITALS: BP 140/59; PULSE 115; RESP 19; TEMP 36.3; O2SAT 94
[2025-02-15] MEDS: 0.9 % Sodium Chloride Flush 3 ML SYRINGE IVFLUSH (21:14)
[2025-02-15 21:18] LABS: Glucose, Whole Blood 131 mg/dL (60-115)
[2025-02-16] VITALS (7 sets, daily range): BP systolic 134–153; BP diastolic 63–73; PULSE 75–120; RESP 16–22; TEMP 36.1–37.1; O2SAT 90–100
[2025-02-16 07:01] LABS: Hematocrit 35.7 % (37.0-47.0); Hemoglobin 12.2 g/dl (12.0-16.0); Mean Corpuscular HGB Conc 34.2 g/dl (31.0-35.0); Mean Corpuscular Hemoglobin 30.2 pg (27.0-33.0); Mean Corpuscular Volume 88.4 fL (80.0-98.0); NRBC Abs Auto 0.000 X10*3/uL (0.0-0.012); NRBC Pct Auto 0.0 /100WBC (0.0-0.2); Platelet Count 286 X10*3/uL (160-400); Red Blood Count 4.04 X10*6/uL (4.20-5.50); White Blood Count 16.4 X10*3/uL (4.8-10.8)
[2025-02-16 07:14] LABS: Anion Gap 19 (12-20); Blood Urea Nitrogen 23 mg/dL (9-16); Calcium 9.0 mg/dL (8.4-10.2); Carbon Dioxide 23 mmol/L (22-29); Chloride 103 mmol/L (96-108); Creatinine Clr Calc Pharmacy 35.1; Estimated Glomerular Filt Rate 43; Magnesium 1.8 mg/dL (1.6-2.6); Potassium 4.3 mmol/L (3.3-5.1); Sodium 141 mmol/L (135-145)
[2025-02-16 07:15] LABS: Glucose, Whole Blood 161 mg/dL (60-115)
[2025-02-16] MEDS: 0.9 % Sodium Chloride Flush 3 ML SYRINGE IVFLUSH ×3 (08:06→20:58)
[2025-02-16] MEDS: Aspirin Enteric Coated 81 MG TABLET.DR PO (08:06)
[2025-02-16] MEDS: Fluticasone/Umeclidinium/Vilanterol 200/62.5/25 BLST.W.DEV 1 PUFF INHALE (08:13)
--- NOTE | 2025-02-16 08:34 | P.PNIM_ITS ---
Subjective Subjective Date of Service: 02/16/25 Interval History: suprapubic pain Physical Exam 2 Vital Signs: Vital Signs: Last Vital Signs Temp 98 F 02/16/25 07:06 Pulse 75 02/16/25 08:14 Resp 16 02/16/25 08:14 BP 153/73 H 02/16/25 07:06 Pulse Ox 90 L 02/16/25 07:06 O2 Del Method Room Air 02/16/25 07:06 BMI result Body Mass Index 30.2 Const: Other: General: AO X 3, no acute distress Resp: CTA bilateral CVS: S1,S2,RRR GI: +BS, NT, no distention Skin: No rash Neuro: motor grossly intact Psych: appropriate affect Objective Data Active Medications Acetaminophen (Acetaminophen 325 Mg Tablet) 650 mg PO Q6H PRN PRN Reason: Pain, Mild 1-3,fever,headache Last Admin: 02/16/25 05:36 Dose: 650 mg Documented By: VERONICA Albuterol Sulfate (Albuterol Sulfate 90 Mcg 8 Gm Inhaler) 2 puff INHALE RQ4H PRN PRN Reason: for wheezing Aspirin (Aspirin Enteric Coated 81 Mg Tablet.) 81 mg PO DAILY [facility] Last Admin: 02/16/25 08:06 Dose: 81 mg Documented By: [place] Atorvastatin Calcium (Atorvastatin Calcium 80 Mg Tablet) 80 mg PO DAILY [facility] Last Admin: 02/16/25 08:06 Dose: 80 mg Documented By: [place] Calcium Carbonate (Calcium Carbonate 750 Mg Tab.Chew) 750 mg PO Q4H PRN PRN Reason: Heartburn Dextrose (Dextrose 50 % 25 Gm/50 Ml Syringe) 25 gm IVPUSH Q15M PRN; Protocol PRN Reason: per Hypoglycemia Standing Ord. Enoxaparin Sodium (Enoxaparin Sodium 40 Mg/0.4 Ml Syringe) 40 mg SUBCUT Q24H [facility] Last Admin: 02/16/25 08:05 Dose: 40 mg Documented By: [place] Fluticasone Propionate (Fluticasone Propionate Nasal 16 Gm [place]) 2 spray NOSTRIL-B DAILY [facility] Last Admin: 02/16/25 08:05 Dose: 2 spray Documented By: [place] Fluticasone/Umeclidinium/Vilanterol (Fluticasone/Umeclidinium/Vilanterol 200/62.5 Blst.W.Dev) 1 puff INHALE RDAILY [facility] Last Admin: 02/16/25 08:13 Dose: 1 puff Documented By: RIVERA Furosemide (Furosemide 20 Mg Tablet) 20 mg PO DAILY [facility]; Protocol Last Admin: 02/16/25 08:06 Dose: 20 mg Documented By: [place] Glucose (Glucose Gel 15 Gm Gel..Gram.) 15 gm PO Q15M PRN; Protocol PRN Reason: per Hypoglycemia Standing Ord. Hydromorphone HCl (Hydromorphone Hcl 0.5 Mg/0.5 Ml Syringe) 0.5 mg IVPUSH Q3H PRN; Protocol PRN Reason: Pain, Severe (Pain Scale 7-10) Last Admin: 02/16/25 04:36 Dose: 0.5 mg Documented By: VERONICA Insulin Human Lispro (Insulin Lispro 100 Unit/Ml 3 Ml Vial) 0 unit SUBCUT QIDACHS [facility]; Protocol Last Admin: 02/16/25 08:06 Dose: 2 unit Documented By: [place] Isosorbide Mononitrate (Isosorbide Mononitrate 30 Mg Tab.Er.24h) 30 mg PO DAILY [facility]; Protocol Last Admin: 02/16/25 08:06 Dose: 30 mg Documented By: [place] Loratadine (Loratadine 10 Mg Tablet) 10 mg PO DAILY [facility] Last Admin: 02/16/25 08:06 Dose: 10 mg Documented By: [place] Magnesium Hydroxide (Milk Of Magnesia 30 Ml Oral.Susp) 30 ml PO DAILY PRN PRN Reason: Constipation Melatonin (Melatonin 3 Mg Tablet) 6 mg PO BEDTIME PRN PRN Reason: Insomnia Last Admin: 02/15/25 21:13 Dose: 6 mg Documented By: VERONICA Meropenem (Meropenem 1 Gm Vial) 1 gm IVPUSH Q12H [facility] Last Admin: 02/16/25 05:31 Dose: 1 gm Documented By: VERONICA Metoprolol Tartrate (Metoprolol Tartrate 50 Mg Tablet) 50 mg PO BID [facility]; Protocol Last Admin: 02/16/25 08:06 Dose: 50 mg Documented By: [place] Omeprazole (Omeprazole 40 Mg Capsule.Dr) 40 mg PO DAILY@629 [facility] Last Admin: 02/16/25 05:31 Dose: 40 mg Documented By: VERONICA Polyethylene Glycol (Polyethylene Glycol 3350 17 Gm Powd.Pack) 17 gm PO DAILY [facility] Last Admin: 02/16/25 08:05 Dose: 17 gm Documented By: [place] Sodium Chloride (0.9 % Sodium Chloride Flush 3 Ml Syringe) 3 ml IVFLUSH QSHIFT [facility] Last Admin: 02/16/25 08:06 Dose: 3 ml Documented By: [place] Vitamin D (Cholecalciferol (Vitamin D3) 25 Mcg Tablet) 50 mcg PO DAILY [facility] Last Admin: 02/16/25 08:05 Dose: 50 mcg Documented By: [place] Labs 02/16/25 05:58 02/16/25 05:58 Labs: Laboratory Results - last 24 hr 02/15/25 02/15/25 02/15/25 12:51 15:03 15:27 MCV 86.6 MCH 29.9 MCHC 34.5 RDW 15.7 Plt Count 348 MPV 9.9 Immature Gran % (Auto) 1.0 H Neut % (Auto) 73.2 H Lymph % (Auto) 12.9 L [place] % (Auto) 12.8 H Eos % (Auto) 0.0 Baso % (Auto) 0.1 Lymph # (Auto) 2.5 [place] # (Auto) 2.5 H Eos # (Auto) 0.0 Baso # (Auto) 0.0 Abs Immat Gran (auto) 0.19 H Absolute Neuts (auto) 14.3 H Absolute Nucleated RBC 0.030 H Nucleated RBC % (auto) 0.2 Smear Tech's Comments VERIFIED Anion Gap 18 Estim Creat Clear Calc 36.3 Estimated GFR 45 POC Glucose Random Glucose 131 H Lactic Acid 2.3 H* Lactic Acid F/U @ 2Hr Calcium 9.4 Magnesium Urine Color Yellow Urine Appearance Turbid Urine pH 6.0 Ur Specific [place] 1.015 Urine Protein 30 (1+) H Urine Glucose (UA) Negative Urine Ketones Negative Urine Blood Moderate (2+) H Urine Nitrite Positive H Ur Leukocyte Esterase Large (3+) H Urine RBC 6-10 H Urine WBC >50 H Ur Squamous Epith Cells 0-2 Urine Bacteria 4+ Hyaline Casts 0-2 02/15/25 02/15/25 02/16/25 17:42 21:14 05:58 MCV 88.4 MCH 30.2 MCHC 34.2 RDW 15.9 Plt Count 286 MPV 10.6 Immature Gran % (Auto) Neut % (Auto) Lymph % (Auto) [place] % (Auto) Eos % (Auto) Baso % (Auto) Lymph # (Auto) [place] # (Auto) Eos # (Auto) Baso # (Auto) Abs Immat Gran (auto) Absolute Neuts (auto) Absolute Nucleated RBC 0.000 Nucleated RBC % (auto) 0.0 Smear Tech's Comments Anion Gap 19 Estim Creat Clear Calc 35.1 Estimated GFR 43 POC Glucose 131 H Random Glucose 174 H Lactic Acid Lactic Acid F/U @ 2Hr 3.2 H* Calcium 9.0 Magnesium 1.8 Urine Color Urine Appearance Urine pH Ur Specific [place] Urine Protein Urine Glucose (UA) Urine Ketones Urine Blood Urine Nitrite Ur Leukocyte Esterase Urine RBC Urine WBC Ur Squamous Epith Cells Urine Bacteria Hyaline Casts 02/16/25 07:10 MCV MCH MCHC RDW Plt Count MPV Immature Gran % (Auto) Neut % (Auto) Lymph % (Auto) [place] % (Auto) Eos % (Auto) Baso % (Auto) Lymph # (Auto) [place] # (Auto) Eos # (Auto) Baso # (Auto) Abs Immat Gran (auto) Absolute Neuts (auto) Absolute Nucleated RBC Nucleated RBC % (auto) Smear Tech's Comments Anion Gap Estim Creat Clear Calc Estimated GFR POC Glucose 161 H Random Glucose Lactic Acid Lactic Acid F/U @ 2Hr Calcium Magnesium Urine Color Urine Appearance Urine pH Ur Specific [place] Urine Protein Urine Glucose (UA) Urine Ketones Urine Blood Urine Nitrite Ur Leukocyte Esterase Urine RBC Urine WBC Ur Squamous Epith Cells Urine Bacteria Hyaline Casts Microbiology Microbiology Results: Microbiology 02/15/25 15:03 Blood Culture - Preliminary Blood - Venous Prelim: GNR Gram Stain only Assessment and Plan (1) Urinary frequency: Status: Acute Plan 79F PMH chronic hypoxic respiratory failure due to COPD on 2 L home O2, diabetes, GERD, IBS, hypertension, obesity, recent ESBL UTI December 2024 presented with dysuria and suprapubic pain Urinary tract infection with recent ESBL bcx with GNR IV meropenem, follow up culture CT showed stable peripherally enhancing fluid density focus inferior to the urinary bladder possibly indicating uninfected cystic lesion versus dilated urethra underlying neoplasm not excluded- eval Chronic hypoxic respiratory failure due to COPD Stable on 2 L Diabetes insulin sliding scale obesity weight loss dvt prophylaxis - lovenox DNR/DNI reason for continued hospitalization:cultures Quality Stroke Does the patient have a stroke diagnosis?: No VTE Prior VTE?: Yes VTE Risk Level:: Medical - moderate - high VTE Device Contraindication: Treatment Not Indicated VTE Drug Contraindication: N/A - Med Ordered
[2025-02-16 11:10] LABS: Glucose, Whole Blood 120 mg/dL (60-115)
--- NOTE | 2025-02-16 15:24 | MHC.CM.PN ---
PT REPORTS SHE LIVES ALONE SHE HAS DAILY [facility] AND USES A [facility]PEND[facility] ON DISTANCE HCP ON FILE PCP: ZAIN SHIN IMM DELIVERED DCP: HOME, RESUME [facility] FAMILY TO TRANSPORT
[2025-02-16 16:22] LABS: Glucose, Whole Blood 160 mg/dL (60-115)
[2025-02-16 19:54] LABS: Glucose, Whole Blood 120 mg/dL (60-115)
[2025-02-16] MEDS: Milk of Magnesia 30 ML ORAL.SUSP PO (20:45)
[2025-02-17 03:18] VITALS: BP 141/69; PULSE 100; RESP 18; TEMP 36.2; O2SAT 95
[2025-02-17 06:56] VITALS: BP 138/65; PULSE 110; RESP 17; TEMP 35.8; O2SAT 92
[2025-02-17 07:07] LABS: Glucose, Whole Blood 148 mg/dL (60-115)
[2025-02-17 07:08] LABS: Hematocrit 35.8 % (37.0-47.0); Hemoglobin 12.6 g/dl (12.0-16.0); Mean Corpuscular HGB Conc 35.2 g/dl (31.0-35.0); Mean Corpuscular Hemoglobin 30.2 pg (27.0-33.0); Mean Corpuscular Volume 85.9 fL (80.0-98.0); NRBC Abs Auto 0.000 X10*3/uL (0.0-0.012); NRBC Pct Auto 0.0 /100WBC (0.0-0.2); Platelet Count 195 X10*3/uL (160-400); Red Blood Count 4.17 X10*6/uL (4.20-5.50); White Blood Count 10.6 X10*3/uL (4.8-10.8)
[2025-02-17 07:37] LABS: Anion Gap 21 (12-20); Blood Urea Nitrogen 21 mg/dL (9-16); Calcium 8.7 mg/dL (8.4-10.2); Carbon Dioxide 20 mmol/L (22-29); Chloride 101 mmol/L (96-108); Creatinine Clr Calc Pharmacy 36.0; Estimated Glomerular Filt Rate 44; Potassium 4.6 mmol/L (3.3-5.1); Sodium 137 mmol/L (135-145)
[2025-02-17] MEDS: Aspirin Enteric Coated 81 MG TABLET.DR PO (07:41)
[2025-02-17] MEDS: 0.9 % Sodium Chloride Flush 3 ML SYRINGE IVFLUSH ×3 (07:46→22:07)
[2025-02-17 07:50] VITALS: PULSE 110; RESP 17; O2SAT 92
[2025-02-17] MEDS: Fluticasone/Umeclidinium/Vilanterol 200/62.5/25 BLST.W.DEV 1 PUFF INHALE (07:50)
--- NOTE | 2025-02-17 08:34 | P.PNIM_ITS ---
Subjective Subjective Date of Service: 02/17/25 Interval History: still with pain Physical Exam 2 Vital Signs: Vital Signs: Last Vital Signs Temp 96.4 F L 02/17/25 06:56 Pulse 110 H 02/17/25 07:50 Resp 17 02/17/25 07:50 BP 138/65 02/17/25 06:56 Pulse Ox 92 02/17/25 06:56 O2 Del Method Room Air 02/17/25 06:56 BMI result Body Mass Index 30.2 Const: Other: General: AO X 3, no acute distress Resp: CTA bilateral CVS: S1,S2,RRR GI: +BS, NT, no distention Skin: No rash Neuro: motor grossly intact Psych: appropriate affect Objective Data Active Medications Acetaminophen (Acetaminophen 325 Mg Tablet) 650 mg PO Q6H PRN PRN Reason: Pain, Mild 1-3,fever,headache Last Admin: 02/16/25 05:36 Dose: 650 mg Documented By: VERONICA Albuterol Sulfate (Albuterol Sulfate 90 Mcg 8 Gm Inhaler) 2 puff INHALE RQ4H PRN PRN Reason: for wheezing Aspirin (Aspirin Enteric Coated 81 Mg Tablet.) 81 mg PO DAILY [facility] Last Admin: 02/17/25 07:41 Dose: 81 mg Documented By: OCTAVIA Atorvastatin Calcium (Atorvastatin Calcium 80 Mg Tablet) 80 mg PO DAILY [facility] Last Admin: 02/17/25 07:40 Dose: 80 mg Documented By: OCTAVIA Calcium Carbonate (Calcium Carbonate 750 Mg Tab.Chew) 750 mg PO Q4H PRN PRN Reason: Heartburn Last Admin: 02/16/25 14:34 Dose: 750 mg Documented By: [place] Dextrose (Dextrose 50 % 25 Gm/50 Ml Syringe) 25 gm IVPUSH Q15M PRN; Protocol PRN Reason: per Hypoglycemia Standing Ord. Enoxaparin Sodium (Enoxaparin Sodium 40 Mg/0.4 Ml Syringe) 40 mg SUBCUT Q24H [facility] Last Admin: 02/16/25 08:05 Dose: 40 mg Documented By: [place] Fluticasone Propionate (Fluticasone Propionate Nasal 16 Gm [place]) 2 spray NOSTRIL-B DAILY [facility] Last Admin: 02/17/25 07:47 Dose: 2 spray Documented By: OCTAVIA Fluticasone/Umeclidinium/Vilanterol (Fluticasone/Umeclidinium/Vilanterol 200/62.5/25 Blst.W.Dev) 1 puff INHALE RDAILY [facility] Last Admin: 02/17/25 07:50 Dose: 1 puff Documented By: JEFF Furosemide (Furosemide 20 Mg Tablet) 20 mg PO DAILY [facility]; Protocol Last Admin: 02/17/25 07:40 Dose: 20 mg Documented By: OCTAVIA Glucose (Glucose Gel 15 Gm Gel..Gram.) 15 gm PO Q15M PRN; Protocol PRN Reason: per Hypoglycemia Standing Ord. Hydromorphone HCl (Hydromorphone Hcl 0.5 Mg/0.5 Ml Syringe) 0.5 mg IVPUSH Q3H PRN; Protocol PRN Reason: Pain, Severe (Pain Scale 7-10) Last Admin: 02/17/25 07:44 Dose: 0.5 mg Documented By: OCTAVIA Insulin Human Lispro (Insulin Lispro 100 Unit/Ml 3 Ml Vial) 0 unit SUBCUT QIDACHS [facility]; Protocol Last Admin: 02/17/25 07:23 Dose: Not Given Documented By: OCTAVIA Non-Admin Reason: No Insulin Coverage Isosorbide Mononitrate (Isosorbide Mononitrate 30 Mg Tab.Er.24h) 30 mg PO DAILY [facility]; Protocol Last Admin: 02/17/25 07:40 Dose: 30 mg Documented By: OCTAVIA Loratadine (Loratadine 10 Mg Tablet) 10 mg PO DAILY [facility] Last Admin: 02/17/25 07:41 Dose: 10 mg Documented By: OCTAVIA Magnesium Hydroxide (Milk Of Magnesia 30 Ml Oral.Susp) 30 ml PO DAILY PRN PRN Reason: Constipation Last Admin: 02/16/25 20:45 Dose: 30 ml Documented By: VERONICA Melatonin (Melatonin 3 Mg Tablet) 6 mg PO BEDTIME PRN PRN Reason: Insomnia Last Admin: 02/16/25 20:45 Dose: 6 mg Documented By: VERONICA Meropenem (Meropenem 1 Gm Vial) 1 gm IVPUSH Q12H [facility] Last Admin: 02/17/25 05:23 Dose: 1 gm Documented By: VERONICA Metoprolol Tartrate (Metoprolol Tartrate 50 Mg Tablet) 50 mg PO BID [facility]; Protocol Last Admin: 02/17/25 07:41 Dose: 50 mg Documented By: OCTAVIA Omeprazole (Omeprazole 40 Mg Capsule.) 40 mg PO DAILY@0630 [facility] Last Admin: 02/17/25 05:23 Dose: 40 mg Documented By: VERONICA Phenazopyridine HCl (Phenazopyridine Hcl 100 Mg Tablet) 100 mg PO BIDWM PRN PRN Reason: dysuria Stop: 02/18/25 13:09 Last Admin: 02/17/25 07:40 Dose: 100 mg Documented By: OCTAVIA Polyethylene Glycol (Polyethylene Glycol 3350 17 Gm Powd.Pack) 17 gm PO DAILY [facility] Last Admin: 02/17/25 07:41 Dose: 17 gm Documented By: OCTAVIA Sodium Chloride (0.9 % Sodium Chloride Flush 3 Ml Syringe) 3 ml IVFLUSH QSHIFT [facility] Last Admin: 02/17/25 07:46 Dose: 3 ml Documented By: OCTAVIA Vitamin D (Cholecalciferol (Vitamin D3) 25 Mcg Tablet) 50 mcg PO DAILY [facility] Last Admin: 02/17/25 07:41 Dose: 50 mcg Documented By: OCTAVIA Labs 02/17/25 06:32 02/17/25 06:32 Labs: Laboratory Results - last 24 hr 02/16/25 02/16/25 02/16/25 11:06 15:49 19:34 MCV MCH MCHC RDW Plt Count MPV Absolute Nucleated RBC Nucleated RBC % (auto) Anion Gap Estim Creat Clear Calc Estimated GFR POC Glucose 120 H 160 H 120 H Random Glucose Calcium 02/17/25 02/17/25 06:32 07:04 MCV 85.9 MCH 30.2 MCHC 35.2 H RDW 15.6 Plt Count 195 D MPV 11.4 Absolute Nucleated RBC 0.000 Nucleated RBC % (auto) 0.0 Anion Gap 21 H Estim Creat Clear Calc 36.0 Estimated GFR 44 POC Glucose 148 H Random Glucose 153 H Calcium 8.7 Microbiology Microbiology Results: Microbiology 02/15/25 Unknown Urine Culture - Final Urine clean catch - Clean Catch Midstream Escherichia coli 02/15/25 15:14 Blood Culture - Preliminary Blood - Venous No growth after 24 hours. 02/15/25 15:03 Blood Culture - Preliminary Blood - Venous Prelim: GNR Gram Stain only Assessment and Plan (1) Urinary frequency: Status: Acute Plan 79F PMH chronic hypoxic respiratory failure due to COPD on 2 L home O2, diabetes, GERD, IBS, hypertension, obesity, recent ESBL UTI December 2024 presented with dysuria and suprapubic pain Urinary tract infection due to esbl ecoli complicated by bacteremia IV meropenem, follow up culture CT showed stable peripherally enhancing fluid density focus inferior to the urinary bladder possibly indicating uninfected cystic lesion versus dilated urethra underlying neoplasm not excluded- eval end date 02/28/25 Chronic hypoxic respiratory failure due to COPD Stable on 2 L Diabetes insulin sliding scale obesity weight loss dvt prophylaxis - lovenox DNR/DNI reason for continued hospitalization:gu eval Quality Stroke Does the patient have a stroke diagnosis?: No VTE Prior VTE?: Yes VTE Risk Level:: Medical - moderate - high VTE Device Contraindication: Treatment Not Indicated VTE Drug Contraindication: N/A - Med Ordered
[2025-02-17 11:10] LABS: Glucose, Whole Blood 153 mg/dL (60-115)
--- NOTE | 2025-02-17 13:50 | PM.UROCN ---
History of Present Illness Consult details Consult date: 02/17/25 Narrative: 79F PMH chronic hypoxic respiratory failure due to COPD on 2 L home O2, diabetes, GERD, IBS, hypertension, obesity, recent ESBL UTI December 2024 presented with dysuria and suprapubic pain. Patient states symptoms began 3 days prior to presentation. Suprapubic pressure-like pain associated with dysuria and chills. CTAP-Peripherally enhancing fluid density focus inferior to the urinary bladder, possibly indicating uninfected cystic lesion versus dilated urethra. Underlying neoplasm can not be excluded. Gynecologic consultation recommended. Urinary bladder wall thickening, suggestive of cystitis. Review of Systems Review of Systems: Yes all other systems are reviewed and are negative Constitutional: Constitutional: Reports no additional constitutional complaints Eyes: Eyes: Reports no additional eye complaints ENT: Reports system reviewed and no additional complaints, except as documented Cardiovascular: Cardiovascular: Reports no additional cardiovascular complaints Respiratory: Respiratory: Reports no additional respiratory complaints Gastrointestinal: Gastrointestinal: Reports no additional gastrointestinal complaints Genitourinary: Genitourinary: Reports as per HPI Musculoskeletal: Musculoskeletal: Reports no additional musculoskeletal complaints Integumentary/Breasts: Skin/Breast: Reports system reviewed and no additional complaints, except as docu Neurologic: Reports system reviewed and no additional complaints, except as documented Psychiatric: Psychiatric: Reports no additional psychiatric complaints Endocrine: Endocrine: Reports no additional endocrine complaints Hematologic/Lymphatic: Hematologic/Lymphatic: Reports no additional hematologic/lymphatic complaints Allergic/Immunologic: Allergic/Immunologic: Reports no additional allergic/immunologic complaints [facility] Past Medical History Medical History CKD (chronic kidney disease) stage 3, GFR 30-59 ml/min Obesity (BMI 30.0-34.9) Chronic respiratory failure Asthma-COPD overlap syndrome Incontinence in female History of adenomatous polyp of colon Pneumonitis Bronchopneumonia Hypogammaglobulinemia Chronic rhinitis Dizziness Headache Hyperlipidemia HTN (hypertension) Diabetes COPD (chronic obstructive pulmonary disease) Family History Family History Mother No problems noted. Father No problems noted. Surgical History Surgical History S/P right coronary artery (RCA) stent placement H/O colonoscopy History of foot surgery History of toe surgery History of bunionectomy Social History 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 services: Yes ([employer]) Alcohol intake: never Comment: refuses the alarm at times Patient Tobacco Use Status: Former Tobacco user Tobacco use type: Cigarette Cigarettes Per Day: 0.5 Years Smoked: 40 Smoked in Last 30 Days: No Patient Interested in Nicotine Replacement: No Patient Given Instructions on How to Stop Smoking: No (not smoking) Second Hand Smoke Exposure: No Currently Displaying Signs/Symptoms of Drug Intoxication Withdrawal: No Have you been hit, kicked, punched, or otherwise hurt by someone within the past year? If so, by whom?: No Do you feel safe in your current relationship?: Yes Is there a partner from a previous relationship who is making you feel unsafe now?: No Are you made to feel afraid or neglected: No Advance Directives: Yes Advance Directives on File: Yes Advance Directives Date on File: 10/03/23 Do you have a plan to hurt others: No Plan Recently lost weight without trying: No Nutrition Risks: No Nutritional Risk Patient : No : No Poor oral hygiene: No service: No Current occupational status: retired Sexual orientation: Straight/Heterosexual Gender identity: Female Meds Allergies Allergy/AdvReac Type Severity Reaction Status Date / Time amoxicillin (Augmentin) Allergy Mild Rash Verified 02/15/25 12:43 clavulanic acid (From Allergy Mild RASH Verified 02/15/25 12:43 Augmentin) Active Medications: Current Medications Acetaminophen (Acetaminophen 325 Mg Tablet) 650 mg PO Q6H PRN PRN Reason: Pain, Mild 1-3,fever,headache Last Admin: 02/16/25 05:36 Dose: 650 mg Albuterol Sulfate (Albuterol Sulfate 90 Mcg 8 Gm Inhaler) 2 puff INHALE RQ4H PRN PRN Reason: for wheezing Aspirin (Aspirin Enteric Coated 81 Mg Tablet.) 81 mg PO DAILY [facility] Last Admin: 02/17/25 07:41 Dose: 81 mg Atorvastatin Calcium (Atorvastatin Calcium 80 Mg Tablet) 80 mg PO DAILY [facility] Last Admin: 02/17/25 07:40 Dose: 80 mg Calcium Carbonate (Calcium Carbonate 750 Mg Tab.Chew) 750 mg PO Q4H PRN PRN Reason: Heartburn Last Admin: 02/16/25 14:34 Dose: 750 mg Dextrose (Dextrose 50 % 25 Gm/50 Ml Syringe) 25 gm IVPUSH Q15M PRN; Protocol PRN Reason: per Hypoglycemia Standing Ord. Enoxaparin Sodium (Enoxaparin Sodium 40 Mg/0.4 Ml Syringe) 40 mg SUBCUT Q24H [facility] Last Admin: 02/17/25 09:05 Dose: 40 mg Fluticasone Propionate (Fluticasone Propionate Nasal 16 Gm [place]) 2 spray NOSTRIL-B DAILY [facility] Last Admin: 02/17/25 07:47 Dose: 2 spray Fluticasone/Umeclidinium/Vilanterol (Fluticasone/Umeclidinium/Vilanterol 200/62.5/25 Blst.W.Dev) 1 puff INHALE RDAILY [facility] Last Admin: 02/17/25 07:50 Dose: 1 puff Furosemide (Furosemide 20 Mg Tablet) 20 mg PO DAILY [facility]; Protocol Last Admin: 02/17/25 07:40 Dose: 20 mg Glucose (Glucose Gel 15 Gm Gel..Gram.) 15 gm PO Q15M PRN; Protocol PRN Reason: per Hypoglycemia Standing Ord. Hydromorphone HCl (Hydromorphone Hcl 0.5 Mg/0.5 Ml Syringe) 0.5 mg IVPUSH Q3H PRN; Protocol PRN Reason: Pain, Severe (Pain Scale 7-10) Last Admin: 02/17/25 07:44 Dose: 0.5 mg Insulin Human Lispro (Insulin Lispro 100 Unit/Ml 3 Ml Vial) 0 unit SUBCUT QIDACHS [facility]; Protocol Last Admin: 02/17/25 11:25 Dose: 2 unit Isosorbide Mononitrate (Isosorbide Mononitrate 30 Mg Tab.Er.24h) 30 mg PO DAILY [facility]; Protocol Last Admin: 02/17/25 07:40 Dose: 30 mg Loratadine (Loratadine 10 Mg Tablet) 10 mg PO DAILY [facility] Last Admin: 02/17/25 07:41 Dose: 10 mg Magnesium Hydroxide (Milk Of Magnesia 30 Ml Oral.Susp) 30 ml PO DAILY PRN PRN Reason: Constipation Last Admin: 02/16/25 20:45 Dose: 30 ml Melatonin (Melatonin 3 Mg Tablet) 6 mg PO BEDTIME PRN PRN Reason: Insomnia Last Admin: 02/16/25 20:45 Dose: 6 mg Meropenem (Meropenem 1 Gm Vial) 1 gm IVPUSH Q12H [facility] Last Admin: 02/17/25 05:23 Dose: 1 gm Metoprolol Tartrate (Metoprolol Tartrate 50 Mg Tablet) 50 mg PO BID [facility]; Protocol Last Admin: 02/17/25 07:41 Dose: 50 mg Omeprazole (Omeprazole 40 Mg Capsule.Dr) 40 mg PO DAILY@0630 [facility] Last Admin: 02/17/25 05:23 Dose: 40 mg Phenazopyridine HCl (Phenazopyridine Hcl 100 Mg Tablet) 100 mg PO BIDWM PRN PRN Reason: dysuria Stop: 02/18/25 13:09 Last Admin: 02/17/25 07:40 Dose: 100 mg Polyethylene Glycol (Polyethylene Glycol 3350 17 Gm Powd.Pack) 17 gm PO DAILY [facility] Last Admin: 02/17/25 07:41 Dose: 17 gm Sodium Chloride (0.9 % Sodium Chloride Flush 3 Ml Syringe) 3 ml IVFLUSH QSHIFT [facility] Last Admin: 02/17/25 07:46 Dose: 3 ml Vitamin D (Cholecalciferol (Vitamin D3) 25 Mcg Tablet) 50 mcg PO DAILY [facility] Last Admin: 02/17/25 07:41 Dose: 50 mcg Home Medications ?Medication ?Instructions ?Recorded ?Confirmed ?Last Taken ?Type cetirizine 10 mg tablet 10 mg PO DAILY 03/21/20 02/15/25 12/27/24 History nitroglycerin 0.4 mg sublingual 0.4 mg sublingual ONCE PRN Chest 03/21/20 02/15/25 06/18/24 History tablet Pain albuterol sulfate 2.5 mg/3 mL 2.5 mg inhalation Q4H PRN wheezing 04/28/20 02/15/25 06/18/24 History (0.083 %) solution for nebulization melatonin 10 mg tablet 10 mg PO BEDTIME PRN Sleep 08/19/21 02/15/25 06/18/24 History aspirin 81 mg tablet,delayed 81 mg PO DAILY 09/02/21 02/15/25 12/27/24 History release isosorbide mononitrate 30 mg 30 mg PO DAILY 0302/15/25 12/27/24 History tablet,extended release 24 hr Oxygen Home Use 09/16/22 10/08/24 Unknown History nebulizers 09/16/22 10/08/24 Unknown History metformin 500 mg tablet,extended 500 mg PO DAILY 10/30/23 02/15/25 06/18/24 History release 24 hr metoprolol tartrate 50 mg tablet 50 mg PO BID 06/17/24 02/15/25 12/27/24 History atorvastatin 80 mg tablet 80 mg PO DAILY 06/20/24 02/15/25 12/27/24 History fluticasone fur. 200 mcg-umeclid 1 ea inhalation DAILY 12/27/24 02/15/25 12/27/24 History 62.5 mcg-vilant 25 mcg inhalat.powder (Trelegy Ellipta) furosemide 20 mg tablet 20 mg PO DAILY 12/27/24 02/15/25 12/27/24 History diclofenac sodium 1 % topical gel 1 ea topical DAILY PRN Pain (Scale 02/15/25 02/15/25 Unknown History Score 1-3) polyethylene glycol 3350 17 17 g PO DAILY 02/15/25 02/15/25 Unknown History gram/dose oral powder (Miralax) Physical Exam Vital Signs: Vital Signs: Last Vital Signs Temp 96.4 F L 02/17/25 06:56 Pulse 110 H 02/17/25 07:50 Resp 17 02/17/25 07:50 BP 138/65 02/17/25 06:56 Pulse Ox 92 02/17/25 06:56 O2 Del Method Room Air 02/17/25 06:56 BMI result Body Mass Index 30.2 Const: General: cooperative and healthy appearing Orientation/consciousness: patient oriented x3 HEENT: Head: Yes normal to inspection, Yes normocephalic and Yes atraumatic Eyes: Conjunctivae: conjunctivae normal Neck: Neck: Yes normal visual inspection and Yes trachea midline Chest: Chest palpation & inspection: normal inspection of the chest Resp: Effort & Inspection: normal respiratory effort GI: Inspection: Yes normal to inspection Palpation (GI): Tenderness to palpation present (GI) Neuro: General: patient oriented x3 Psych: Appearance: grossly normal Results Labs 02/17/25 06:32 02/17/25 06:32 Labs: Abnormal lab results 02/16/25 02/16/2502/17/25 Range/Units 15:49 19:34 06:32 RBC 4.17 L (4.20-5.50) X10*6/uL Hct 35.8 L (37.0-47.0) % MCHC 35.2 H (31.0-35.0) g/dl Carbon Dioxide 20 L (22-29) mmol/L Anion Gap 21 H (12-20) BUN 21 H (9-16) mg/dL POC Glucose 160 H 120 H (60-115) mg/dL Random Glucose 153 H (60-115) mg/dL 02/17/25 02/17/25 Range/Units 07:04 11:05 RBC (4.20-5.50) X10*6/uL Hct (37.0-47.0) % MCHC (31.0-35.0) g/dl Carbon Dioxide (22-29) mmol/L Anion Gap (12-20) BUN (9-16) mg/dL POC Glucose 148 H 153 H (60-115) mg/dL Random Glucose (60-115) mg/dL Short CBC 02/17/25 Range/Units 06:32 WBC 10.6 (4.8-10.8) X10*3/uL Hgb 12.6 (12.0-16.0) g/dl Hct 35.8 L (37.0-47.0) % Plt Count 195 D (160-400) X10*3/uL BMP 02/17/25 06:32 Sodium 137 Potassium 4.6 Chloride 101 Carbon Dioxide 20 L BUN 21 H Creatinine 1.18 Calcium 8.7 Urine 02/15/25 Range/Units 15:27 Urine Color Yellow Urine Appearance Turbid Urine pH 6.0 (5.0-9.0) Ur Specific [place] 1.015 (1.005-1.025) Urine Protein 30 (1+) H (Neg-Trace) mg/dL Urine Glucose (UA) Negative (Negative) mg/dL Collected: 02/15/25-UNK Status: COMP Req#: [id number] Received: 02/15/25 Source: [facility] Sp Desc: Clean Cat Subm Dr: Negro [place] Ordered: Urine Culture Procedure Result Verified Urine Culture Final 02/17/25 Organism 1 Escherichia coli Quant > 100,000 cfu/mL ESBL Note: NOTE: Extended-Spectrum Beta-Lactamase enzyme present E coli M.I.C. RX --------- --- Ampicillin >=32 R Cefazolin (Urine) >=32 R Cefepime 16 R Ceftriaxone >=64 R Ciprofloxacin 0.5 I Ertapenem <=0.12 S Gentamicin <=1 S Nitrofurantoin <=16 S Trimethoprim/Sulfamethoxazole >=320 R Imaging Additional studies: Date of Service: 02/15/25 CLINICAL HISTORY: flank pain, R O obstructive pathology CT abdomen and pelvis with contrast Comparison: CT - CT ABDOMEN PELVIS W IV CON - 02/15/25 15:41 EDT Findings: The lung bases are clear. The gallbladder and solid organs are within normal limits. No renal stones. No bowel obstruction, pneumoperitoneum, or pneumatosis. Stable peripherally enhancing cystic focus inferior to the urinary bladder, measuring 30 mm transverse by 35 mm anteroposterior by 68 mm craniocaudal. Diffuse urinary bladder wall thickening.Appendix is not seen. The bones are intact. IMPRESSION: 1. Stable peripherally enhancing fluid density focus inferior to the urinary bladder, possibly indicating uninfected cystic lesion versus dilated urethra. Underlying neoplasm can not be excluded. Gynecologic consultation recommended. 2. Urinary bladder wall thickening, suggestive of cystitis. Correlation with urinalysis is recommended. Assessment and Plan (1) Abnormal CT scan, pelvis: Status: Acute (2) Dysuria: Status: Acute (3) Cystitis: Status: Acute Plan Urine c/s Ecoli, ESBL Add on for cystoscopy and pelvic exam under anesthesia in OR tomorrow, NPO after Monday Recommend CAN COVERER consult ID consult- [id number] Ecoli Procedures Date of Service Date of Service: 02/17/25
[2025-02-17 15:04] VITALS: BP 126/68; PULSE 117; RESP 17; TEMP 36.9; O2SAT 93
[2025-02-17 16:31] LABS: Glucose, Whole Blood 117 mg/dL (60-115)
[2025-02-17 19:02] VITALS: BP 132/78; PULSE 106; RESP 17; TEMP 36.2; O2SAT 98
[2025-02-17 20:22] LABS: Glucose, Whole Blood 143 mg/dL (60-115)
[2025-02-17 22:05] VITALS: BP 131/59; PULSE 122
[2025-02-18] VITALS (13 sets, daily range): BP systolic 108–166; BP diastolic 59–91; PULSE 90–115; RESP 16–20; TEMP 36–37.1; O2SAT 91–100
[2025-02-18 07:36] LABS: Glucose, Whole Blood 131 mg/dL (60-115)
[2025-02-18] MEDS: Fluticasone/Umeclidinium/Vilanterol 200/62.5/25 BLST.W.DEV 1 PUFF INHALE (07:40)
--- NOTE | 2025-02-18 08:14 | HO.ANESPROP2 ---
Documented by User: Reina Arreola NP 02/18/25 09:00 HPI - Anesthesia Eval Consult details Narrative: 79 yr old female for Cystoscopy, possible Bladder Biopsy DNR/DNI No CP, does get SOB, walks minimally with walker at home COPD/asthma: Chronic hypoxic respiratory failure due to COPD, stable on 2 L, sating at 96% S/P right coronary artery stent placement: no recent CP, echo from 2023 below, follows with ?[facility] Active Problems Active Problems: All Active Problems (Updated 02/17/25 @ 13:57 by Jevon Dougherty MD) Cystitis (Acute) Dysuria (Acute) Abnormal CT scan, pelvis (Acute) UTI (urinary tract infection) (Acute) ESBL (extended spectrum beta-lactamase) producing bacteria infection (Acute) UTI due to extended-spectrum beta lactamase (ESBL) producing Escherichia coli (Acute) Cystitis (Acute) Acute effusion of left ear (Acute) Incomplete bladder emptying (Acute) Lower urinary tract symptoms (Acute) Vaginitis (Acute) Acute cystitis with hematuria (Acute) Back pain (Acute) Pneumonia (Acute) COPD with acute exacerbation (Acute) Chronic constipation (Acute) Personal history of colonic polyps (Acute) Degenerative disc disease, cervical (Acute) Intractable pain (Acute) Hyperglycemia due to diabetes mellitus (Acute) Viral sepsis (Acute) Severe sepsis (Acute) Fever (Acute) Cervical spinal stenosis (Acute) Cervical spondylosis (Acute) Neck pain (Acute) Urinary frequency (Acute) Flank pain (Acute) Sensation of pressure in bladder area (Acute) COVID-19 (Acute) Asthma-COPD overlap syndrome (Acute) H/O urinary retention (Acute) Mixed stress and urge urinary incontinence (Acute) Incontinence in female (Acute) Oxygen dependent (Acute) History of adenomatous polyp of colon (Acute) Encounter for screening colonoscopy (Acute) Pneumonitis (Acute) Urinary tract infection (Acute) Vertigo (Acute) Cystitis (Acute) Headache (Acute) Urinary urgency (Acute) Bronchopneumonia (Acute) Osteopenia (Acute) Menopausal state (Acute) Well woman exam (Acute) Bronchitis (Acute) Hoarseness (Acute) Hypogammaglobulinemia (Acute) Bleeding hemorrhoids (Acute) GERD (gastroesophageal reflux disease) (Acute) Abdominal bloating (Acute) Irritable bowel syndrome with constipation (Acute) Chronic rhinitis (Acute) COPD (chronic obstructive pulmonary disease) (Acute) Past Medical History Medical History CKD (chronic kidney disease) stage 3, GFR 30-59 ml/min Obesity (BMI 30.0-34.9) Chronic respiratory failure Asthma-COPD overlap syndrome Incontinence in female History of adenomatous polyp of colon Pneumonitis Bronchopneumonia Hypogammaglobulinemia Chronic rhinitis Dizziness Headache Hyperlipidemia HTN (hypertension) Diabetes COPD (chronic obstructive pulmonary disease) Family History Family History Mother No problems noted. Father No problems noted. Family history of problems with anesthesia: No Surgical History Surgical History (Reviewed 02/17/25 @ 14: by Jevon Dougherty MD) S/P right coronary artery (RCA) stent placement H/O colonoscopy History of foot surgery History of toe surgery History of bunionectomy History of Problems with Anesthesia: No Social History 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 services: Yes ([employer]) Alcohol intake: never Comment: refusing the alarms Patient Tobacco Use Status: Former Tobacco user Tobacco use type: Cigarette Cigarettes Per Day: 0.5 Years Smoked: 40 Second Hand Smoke Exposure: No Advance Directives Date on File: 10/03/23 service: No Current occupational status: retired Sexual orientation: Straight/Heterosexual Gender identity: Female Meds Allergies Allergy/AdvReac Type Severity Reaction Status Date / Time amoxicillin (Augmentin) Allergy Mild Rash Verified 02/15/25 12:43 clavulanic acid (From Allergy Mild RASH Verified 02/15/25 12:43 Augmentin) Active Medications: Current Medications Acetaminophen (Acetaminophen 325 Mg Tablet) 650 mg PO Q6H PRN PRN Reason: Pain, Mild 1-3,fever,headache Last Admin: 02/17/25 17:02 Dose: 650 mg Albuterol Sulfate (Albuterol Sulfate 90 Mcg 8 Gm Inhaler) 2 puff INHALE RQ4H PRN PRN Reason: for wheezing Aspirin (Aspirin Enteric Coated 81 Mg Tablet.) 81 mg PO DAILY [facility] Last Admin: 02/17/25 07:41 Dose: 81 mg Atorvastatin Calcium (Atorvastatin Calcium 80 Mg Tablet) 80 mg PO DAILY [facility] Last Admin: 02/17/25 07:40 Dose: 80 mg Calcium Carbonate (Calcium Carbonate 750 Mg Tab.Chew) 750 mg PO Q4H PRN PRN Reason: Heartburn Last Admin: 02/16/25 14:34 Dose: 750 mg Dextrose (Dextrose 50 % 25 Gm/50 Ml Syringe) 25 gm IVPUSH Q15M PRN; Protocol PRN Reason: per Hypoglycemia Standing Ord. Enoxaparin Sodium (Enoxaparin Sodium 40 Mg/0.4 Ml Syringe) 40 mg SUBCUT Q24H [facility] Last Admin: 02/17/25 09:05 Dose: 40 mg Fluticasone Propionate (Fluticasone Propionate Nasal 16 Gm Carter) 2 spray NOSTRIL-B DAILY [facility] Last Admin: 02/17/25 07:47 Dose: 2 spray Fluticasone/Umeclidinium/Vilanterol (Fluticasone/Umeclidinium/Vilanterol 200/62.5/25 Blst.W.Dev) 1 puff INHALE RDAILY [facility] Last Admin: 02/18/25 07:40 Dose: 1 puff Furosemide (Furosemide 20 Mg Tablet) 20 mg PO DAILY [facility]; Protocol Last Admin: 02/17/25 07:40 Dose: 20 mg Glucose (Glucose Gel 15 Gm Gel..Gram.) 15 gm PO Q15M PRN; Protocol PRN Reason: per Hypoglycemia Standing Ord. Hydromorphone HCl (Hydromorphone Hcl 0.5 Mg/0.5 Ml Syringe) 0.5 mg IVPUSH Q3H PRN; Protocol PRN Reason: Pain, Severe (Pain Scale 7-10) Last Admin: 02/17/25 14:21 Dose: 0.5 mg Gentamicin Sulfate 160 mg/ (Sodium Chloride) 104 mls @ 100 mls/hr IV ONCE ONE Stop: 02/18/25 17:04 Insulin Human Lispro (Insulin Lispro 100 Unit/Ml 3 Ml Vial) 0 unit SUBCUT QIDACHS [facility]; Protocol Last Admin: 02/18/25 07:44 Dose: Not Given Isosorbide Mononitrate (Isosorbide Mononitrate 30 Mg Tab.Er.24h) 30 mg PO DAILY [facility]; Protocol Last Admin: 02/17/25 07:40 Dose: 30 mg Loratadine (Loratadine 10 Mg Tablet) 10 mg PO DAILY [facility] Last Admin: 02/17/25 07:41 Dose: 10 mg Magnesium Hydroxide (Milk Of Magnesia 30 Ml Oral.Susp) 30 ml PO DAILY PRN PRN Reason: Constipation Last Admin: 02/16/25 20:45 Dose: 30 ml Melatonin (Melatonin 3 Mg Tablet) 6 mg PO BEDTIME PRN PRN Reason: Insomnia Last Admin: 02/17/25 22:05 Dose: 6 mg Meropenem (Meropenem 1 Gm Vial) 1 gm IVPUSH Q12H [facility] Last Admin: 02/18/25 05:27 Dose: 1 gm Metoprolol Tartrate (Metoprolol Tartrate 50 Mg Tablet) 50 mg PO BID [facility]; Protocol Last Admin: 02/17/25 22:05 Dose: 50 mg Omeprazole (Omeprazole 40 Mg Capsule.Dr) 40 mg PO DAILY@0630 [facility] Last Admin: 02/18/25 05:27 Dose: 40 mg Phenazopyridine HCl (Phenazopyridine Hcl 100 Mg Tablet) 100 mg PO BIDWM PRN PRN Reason: dysuria Stop: 02/18/25 13:09 Last Admin: 02/17/25 22:03 Dose: 100 mg Polyethylene Glycol (Polyethylene Glycol 3350 17 Gm Powd.Pack) 17 gm PO DAILY [facility] Last Admin: 02/17/25 07:41 Dose: 17 gm Sodium Chloride (0.9 % Sodium Chloride Flush 3 Ml Syringe) 3 ml IVFLUSH QSHIFT [facility] Last Admin: 02/17/25 22:07 Dose: 3 ml Vitamin D (Cholecalciferol (Vitamin D3) 25 Mcg Tablet) 50 mcg PO DAILY [facility] Last Admin: 02/17/25 07:41 Dose: 50 mcg Home Medications ?Medication ?Instructions ?Recorded ?Confirmed ?Last Taken ?Type cetirizine 10 mg tablet 10 mg PO DAILY 03/21/20 02/15/25 12/27/24 History nitroglycerin 0.4 mg sublingual 0.4 mg sublingual ONCE PRN Chest 03/21/20 02/15/25 06/18/24 History tablet Pain albuterol sulfate 2.5 mg/3 mL 2.5 mg inhalation Q4H PRN wheezing 04/28/20 02/15/25 06/18/24 History (0.083 %) solution for nebulization melatonin 10 mg tablet 10 mg PO BEDTIME PRN Sleep 08/19/21 02/15/25 06/18/24 History aspirin 81 mg tablet,delayed 81 mg PO DAILY 09/02/21 02/15/25 12/27/24 History release isosorbide mononitrate 30 mg 30 mg PO DAILY 09/02/21 02/15/25 12/27/24 History tablet,extended release 24 hr Oxygen Home Use 09/16/22 10/08/24 Unknown History nebulizers 09/16/22 10/08/24 Unknown History metformin 500 mg tablet,extended 500 mg PO DAILY 10/30/23 02/15/25 06/18/24 History release 24 hr metoprolol tartrate 50 mg tablet 50 mg PO BID 06/17/24 02/15/25 12/27/24 History atorvastatin 80 mg tablet 80 mg PO DAILY 06/20/24 02/15/25 12/27/24 History fluticasone fur. 200 mcg-umeclid 1 ea inhalation DAILY 12/27/24 02/15/25 12/27/24 History 62.5 mcg-vilant 25 mcg inhalat.powder (Trelegy Ellipta) furosemide 20 mg tablet 20 mg PO DAILY 12/27/24 02/15/25 12/27/24 History diclofenac sodium 1 % topical gel 1 ea topical DAILY PRN Pain (Scale 02/15/25 02/15/25 Unknown History Score 1-3) polyethylene glycol 3350 17 17 g PO DAILY 02/15/25 02/15/25 Unknown History gram/dose oral powder (Miralax) Exam Height,Weight and Vital Signs: Height 5 ft 2 in Weight 74.843 kg Last Vital Signs Temp 97.0 F 02/18/25 07:42 Pulse 90 02/18/25 07:42 Resp 20 02/18/25 07:42 BP 108/60 02/18/25 07:42 Pulse Ox 96 02/18/25 07:42 O2 Del Method Nasal Cannula 02/18/25 07:42 O2 Flow Rate 2 02/18/25 07:42 Pertinent Lab Results Pertinent Lab Results: Laboratory Tests 02/15/25 02/15/25 02/15/25 12:51 15:03 15:27 WBC 19.5 H RBC 4.18 L Hgb 12.5 Hct 36.2 L MCV 86.6 MCH 29.9 MCHC 34.5 RDW 15.7 Plt Count 348 MPV 9.9 Immature Gran % (Auto) 1.0 H Neut % (Auto) 73.2 H Lymph % (Auto) 12.9 L [place] % (Auto) 12.8 H Eos % (Auto) 0.0 Baso % (Auto) 0.1 Lymph # (Auto) 2.5 [place] # (Auto) 2.5 H Eos # (Auto) 0.0 Baso # (Auto) 0.0 Abs Immat Gran (auto) 0.19 H Absolute Neuts (auto) 14.3 H Absolute Nucleated RBC 0.030 H Nucleated RBC % (auto) 0.2 Smear Tech's Comments VERIFIED Sodium 143 Potassium 4.2 Chloride 106 Carbon Dioxide 23 Anion Gap 18 BUN 24 H Creatinine 1.17 Estim Creat Clear Calc 36.3 Estimated GFR 45 POC Glucose Random Glucose 131 H Lactic Acid 2.3 H* Lactic Acid F/U @ 2Hr Calcium 9.4 Magnesium Urine Color Yellow Urine Appearance Turbid Urine pH 6.0 Ur Specific [place] 1.015 Urine Protein 30 (1+) H Urine Glucose (UA) Negative Urine Ketones Negative Urine Blood Moderate (2+) H Urine Nitrite Positive H Ur Leukocyte Esterase Large (3+) H Urine RBC 6-10 H Urine WBC >50 H Ur Squamous Epith Cells 0-2 Urine Bacteria 4+ Hyaline Casts 0-2 02/15/25 02/15/25 02/16/25 17:42 21:14 05:58 WBC 16.4 H RBC 4.04 L Hgb 12.2 Hct 35.7 L MCV 88.4 MCH 30.2 MCHC 34.2 RDW 15.9 Plt Count 286 MPV 10.6 Immature Gran % (Auto) Neut % (Auto) Lymph % (Auto) [place] % (Auto) Eos % (Auto) Baso % (Auto) Lymph # (Auto) [place] # (Auto) Eos # (Auto) Baso # (Auto) Abs Immat Gran (auto) Absolute Neuts (auto) Absolute Nucleated RBC 0.000 Nucleated RBC % (auto) 0.0 Smear Tech's Comments Sodium 141 Potassium 4.3 Chloride 103 Carbon Dioxide 23 Anion Gap 19 BUN 23 H Creatinine 1.21 Estim Creat Clear Calc 35.1 Estimated GFR 43 POC Glucose 131 H Random Glucose 174 H Lactic Acid Lactic Acid F/U @ 2Hr 3.2 H* Calcium 9.0 Magnesium 1.8 Urine Color Urine Appearance Urine pH Ur Specific [place] Urine Protein Urine Glucose (UA) Urine Ketones Urine Blood Urine Nitrite Ur Leukocyte Esterase Urine RBC Urine WBC Ur Squamous Epith Cells Urine Bacteria Hyaline Casts 02/16/25 02/16/25 02/16/25 07:10 11:06 15:49 WBC RBC Hgb Hct MCV MCH MCHC RDW Plt Count MPV Immature Gran % (Auto) Neut % (Auto) Lymph % (Auto) [place] % (Auto) Eos % (Auto) Baso % (Auto) Lymph # (Auto) [place] # (Auto) Eos # (Auto) Baso # (Auto) Abs Immat Gran (auto) Absolute Neuts (auto) Absolute Nucleated RBC Nucleated RBC % (auto) Smear Tech's Comments Sodium Potassium Chloride Carbon Dioxide Anion Gap BUN Creatinine Estim Creat Clear Calc Estimated GFR POC Glucose 161 H 120 H 160 H Random Glucose Lactic Acid Lactic Acid F/U @ 2Hr Calcium Magnesium Urine Color Urine Appearance Urine pH Ur Specific [place] Urine Protein Urine Glucose (UA) Urine Ketones Urine Blood Urine Nitrite Ur Leukocyte Esterase Urine RBC Urine WBC Ur Squamous Epith Cells Urine Bacteria Hyaline Casts 02/16/25 02/17/25 02/17/25 19:34 06:32 07:04 WBC 10.6 RBC 4.17 L Hgb 12.6 Hct 35.8 L MCV 85.9 MCH 30.2 MCHC 35.2 H RDW 15.6 Plt Count 195 D MPV 11.4 Immature Gran % (Auto) Neut % (Auto) Lymph % (Auto) [place] % (Auto) Eos % (Auto) Baso % (Auto) Lymph # (Auto) [place] # (Auto) Eos # (Auto) Baso # (Auto) Abs Immat Gran (auto) Absolute Neuts (auto) Absolute Nucleated RBC 0.000 Nucleated RBC % (auto) 0.0 Smear Tech's Comments Sodium 137 Potassium 4.6 Chloride 101 Carbon Dioxide 20 L Anion Gap 21 H BUN 21 H Creatinine 1.18 Estim Creat Clear Calc 36.0 Estimated GFR 44 POC Glucose 120 H 148 H Random Glucose 153 H Lactic Acid Lactic Acid F/U @ 2Hr Calcium 8.7 Magnesium Urine Color Urine Appearance Urine pH Ur Specific [place] Urine Protein Urine Glucose (UA) Urine Ketones Urine Blood Urine Nitrite Ur Leukocyte Esterase Urine RBC Urine WBC Ur Squamous Epith Cells Urine Bacteria Hyaline Casts 02/17/25 02/17/25 02/17/25 11:05 16:27 20:14 WBC RBC Hgb Hct MCV MCH MCHC RDW Plt Count MPV Immature Gran % (Auto) Neut % (Auto) Lymph % (Auto) [place] % (Auto) Eos % (Auto) Baso % (Auto) Lymph # (Auto) [place] # (Auto) Eos # (Auto) Baso # (Auto) Abs Immat Gran (auto) Absolute Neuts (auto) Absolute Nucleated RBC Nucleated RBC % (auto) Smear Tech's Comments Sodium Potassium Chloride Carbon Dioxide Anion Gap BUN Creatinine Estim Creat Clear Calc Estimated GFR POC Glucose 153 H 117 H 143 H Random Glucose Lactic Acid Lactic Acid F/U @ 2Hr Calcium Magnesium Urine Color Urine Appearance Urine pH Ur Specific [place] Urine Protein Urine Glucose (UA) Urine Ketones Urine Blood Urine Nitrite Ur Leukocyte Esterase Urine RBC Urine WBC Ur Squamous Epith Cells Urine Bacteria Hyaline Casts 02/18/25 07:28 WBC RBC Hgb Hct MCV MCH MCHC RDW Plt Count MPV Immature Gran % (Auto) Neut % (Auto) Lymph % (Auto) [place] % (Auto) Eos % (Auto) Baso % (Auto) Lymph # (Auto) [place] # (Auto) Eos # (Auto) Baso # (Auto) Abs Immat Gran (auto) Absolute Neuts (auto) Absolute Nucleated RBC Nucleated RBC % (auto) Smear Tech's Comments Sodium Potassium Chloride Carbon Dioxide Anion Gap BUN Creatinine Estim Creat Clear Calc Estimated GFR POC Glucose 131 H Random Glucose Lactic Acid Lactic Acid F/U @ 2Hr Calcium Magnesium Urine Color Urine Appearance Urine pH Ur Specific [place] Urine Protein Urine Glucose (UA) Urine Ketones Urine Blood Urine Nitrite Ur Leukocyte Esterase Urine RBC Urine WBC Ur Squamous Epith Cells Urine Bacteria Hyaline Casts Narrative Narrative: ECHO 11/2023 Conclusions: - The left ventricular systolic function is mildly decreased. The calculated ejection fraction is 51% by biplane method. - There is mildly decreased right ventricular systolic function. - No obvious valvular pathology seen on this study. - There is no evidence of pulmonary hypertension. Airway Mallampati Class: III TM Dist: >3cm Neck ROM: Limited Denture: Upper Heart: RRR Lungs: CTAB Assessment and Plan Final Anesthetic Review Family History of Problems with Anesthesia: No History of Problems with Anesthesia: No Documented by User: Miguel Wilder MD 02/18/25 15:56 PMFSH Past Medical History Medical History CKD (chronic kidney disease) stage 3, GFR 30-59 ml/min Obesity (BMI 30.0-34.9) Chronic respiratory failure Asthma-COPD overlap syndrome Incontinence in female History of adenomatous polyp of colon Pneumonitis Bronchopneumonia Hypogammaglobulinemia Chronic rhinitis Dizziness Headache Hyperlipidemia HTN (hypertension) Diabetes COPD (chronic obstructive pulmonary disease) Family History Family History Mother No problems noted. Father No problems noted. Surgical History Surgical History S/P right coronary artery (RCA) stent placement H/O colonoscopy History of foot surgery History of toe surgery History of bunionectomy Social History 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 services: Yes ([employer]) Alcohol intake: never Comment: refusing the alarms Patient Tobacco Use Status: Former Tobacco user Tobacco use type: Cigarette Cigarettes Per Day: 0.5 Years Smoked: 40 Second Hand Smoke Exposure: No Advance Directives Date on File: 10/03/23 service: No Current occupational status: retired Sexual orientation: Straight/Heterosexual Gender identity: Female Meds Allergies Allergy/AdvReac Type Severity Reaction Status Date / Time amoxicillin (Augmentin) Allergy Mild Rash Verified 02/15/25 12:43 clavulanic acid (From Allergy Mild RASH Verified 02/15/25 12:43 Augmentin) Home Medications ?Medication ?Instructions ?Recorded ?Confirmed ?Last Taken ?Type cetirizine 10 mg tablet 10 mg PO DAILY 03/21/20 02/15/2512/27/25 History nitroglycerin 0.4 mg sublingual 0.4 mg sublingual ONCE PRN Chest 03/21/20 02/15/25 06/18/24 History tablet Pain albuterol sulfate 2.5 mg/3 mL 2.5 mg inhalation Q4H PRN wheezing 04/28/20 02/15/25 06/18/24 History (0.083 %) solution for nebulization melatonin 10 mg tablet 10 mg PO BEDTIME PRN Sleep 08/19/21 02/15/25 06/18/24 History aspirin 81 mg tablet,delayed 81 mg PO DAILY 09/02/21 02/15/25 12/27/24 History release isosorbide mononitrate 30 mg 30 mg PO DAILY 09/02/21 02/15/25 12/27/24 History tablet,extended release 24 hr Oxygen Home Use 09/16/22 10/08/24 Unknown History nebulizers 09/16/22 10/08/24 Unknown History metformin 500 mg tablet,extended 500 mg PO DAILY 10/30/23 02/15/25 06/18/24 History release 24 hr metoprolol tartrate 50 mg tablet 50 mg PO BID 06/17/24 02/15/25 12/27/24 History atorvastatin 80 mg tablet 80 mg PO DAILY 06/20/24 02/15/25 12/27/24 History fluticasone fur. 200 mcg-umeclid 1 ea inhalation DAILY 12/27/24 02/15/25 12/27/24 History 62.5 mcg-vilant 25 mcg inhalat.powder (Trelegy Ellipta) furosemide 20 mg tablet 20 mg PO DAILY 12/27/24 02/15/25 12/27/24 History diclofenac sodium 1 % topical gel 1 ea topical DAILY PRN Pain (Scale 02/15/25 02/15/25 Unknown History Score 1-3) polyethylene glycol 3350 17 17 g PO DAILY 02/15/25 02/15/25 Unknown History gram/dose oral powder (Miralax) Assessment and Plan Assessment Anesthesia Assessment: Anesthesia Plan Discussed and Chart Reviewed Final Anesthetic Review NPO: Yes ASA Class: III Final Preanesthetic Review: No Changes in Pt Med Stat, Meds/Allgs Chart Reviewed, Consent Obtained/Reviewed and Anes Risks/Benef Reviewed Patient Risk: Intermediate Procedure Risk: Low Anesthetic Plan Anesthetic Plan: GA Disposition: Standard PACU
--- NOTE | 2025-02-18 08:35 | HO.PM.IMPN ---
Subjective Subjective Date of Service: 02/18/25 Interval History: pain improved Physical Exam Vital Signs: Vital Signs: Last Vital Signs Temp 97.0 F 02/18/25 07:42 Pulse 90 02/18/25 07:42 Resp 20 02/18/25 07:42 BP 108/60 02/18/25 07:42 Pulse Ox 96 02/18/25 07:42 O2 Del Method Nasal Cannula 02/18/25 07:42 O2 Flow Rate 2 02/18/25 07:42 BMI result Body Mass Index 30.2 Const: General: cooperative and healthy appearing Orientation/consciousness: patient oriented x3 HEENT: Head: Yes normal to inspection, Yes normocephalic and Yes atraumatic Eyes: Conjunctivae: conjunctivae normal Neck: Neck: Yes normal visual inspection and Yes trachea midline Chest: Chest palpation & inspection: normal inspection of the chest Resp: Effort & Inspection: normal respiratory effort GI: Inspection: Yes normal to inspection Palpation (GI): Tenderness to palpation present (GI) Neuro: General: patient oriented x3 Psych: Appearance: grossly normal Objective Data Active Medications Acetaminophen (Acetaminophen 325 Mg Tablet) 650 mg PO Q6H PRN PRN Reason: Pain, Mild 1-3,fever,headache Last Admin: 02/17/25 17:02 Dose: 650 mg Documented By: OCTAVIA Albuterol Sulfate (Albuterol Sulfate 90 Mcg 8 Gm Inhaler) 2 puff INHALE RQ4H PRN PRN Reason: for wheezing Aspirin (Aspirin Enteric Coated 81 Mg Tablet.) 81 mg PO DAILY [facility] Last Admin: 02/17/25 07:41 Dose: 81 mg Documented By: OCTAVIA Atorvastatin Calcium (Atorvastatin Calcium 80 Mg Tablet) 80 mg PO DAILY [facility] Last Admin: 02/17/25 07:40 Dose: 80 mg Documented By: OCTAVIA Calcium Carbonate (Calcium Carbonate 750 Mg Tab.Chew) 750 mg PO Q4H PRN PRN Reason: Heartburn Last Admin: 02/16/25 14:34 Dose: 750 mg Documented By: [place] Dextrose (Dextrose 50 % 25 Gm/50 Ml Syringe) 25 gm IVPUSH Q15M PRN; Protocol PRN Reason: per Hypoglycemia Standing Ord. Enoxaparin Sodium (Enoxaparin Sodium 40 Mg/0.4 Ml Syringe) 40 mg SUBCUT Q24H [facility] Last Admin: 02/17/25 09:05 Dose: 40 mg Documented By: OCTAVIA Fluticasone Propionate (Fluticasone Propionate Nasal 16 Gm [place]) 2 spray NOSTRIL-B DAILY [facility] Last Admin: 02/17/25 07:47 Dose: 2 spray Documented By: OCTAVIA Fluticasone/Umeclidinium/Vilanterol (Fluticasone/Umeclidinium/Vilanterol 200/62.5/25 Blst.W.Dev) 1 puff INHALE RDAILY [facility] Last Admin: 02/18/25 07:40 Dose: 1 puff Documented By: ANT Furosemide (Furosemide 20 Mg Tablet) 20 mg PO DAILY [facility]; Protocol Last Admin: 02/17/25 07:40 Dose: 20 mg Documented By: OCTAVIA Glucose (Glucose Gel 15 Gm Gel..Gram.) 15 gm PO Q15M PRN; Protocol PRN Reason: per Hypoglycemia Standing Ord. Hydromorphone HCl (Hydromorphone Hcl 0.5 Mg/0.5 Ml Syringe) 0.5 mg IVPUSH Q3H PRN; Protocol PRN Reason: Pain, Severe (Pain Scale 7-10) Last Admin: 02/17/25 14:21 Dose: 0.5 mg Documented By: ANDREA Gentamicin Sulfate 160 mg/ (Sodium Chloride) 104 mls @ 100 mls/hr IV ONCE ONE Stop: 02/18/25 17:04 Insulin Human Lispro (Insulin Lispro 100 Unit/Ml 3 Ml Vial) 0 unit SUBCUT QIDACHS [facility]; Protocol Last Admin: 02/18/25 07:44 Dose: Not Given Documented By: HEMANTH Non-Admin Reason: No Insulin Coverage Isosorbide Mononitrate (Isosorbide Mononitrate 30 Mg Tab.Er.24h) 30 mg PO DAILY [facility]; Protocol Last Admin: 02/17/25 07:40 Dose: 30 mg Documented By: OCTAVIA Loratadine (Loratadine 10 Mg Tablet) 10 mg PO DAILY [facility] Last Admin: 02/17/25 07:41 Dose: 10 mg Documented By: OCTAVIA Magnesium Hydroxide (Milk Of Magnesia 30 Ml Oral.Susp) 30 ml PO DAILY PRN PRN Reason: Constipation Last Admin: 02/16/25 20:45 Dose: 30 ml Documented By: VERONICA Melatonin (Melatonin 3 Mg Tablet) 6 mg PO BEDTIME PRN PRN Reason: Insomnia Last Admin: 02/17/25 22:05 Dose: 6 mg Documented By: VERONICA Meropenem (Meropenem 1 Gm Vial) 1 gm IVPUSH Q12H [facility] Last Admin: 02/18/25 05:27 Dose: 1 gm Documented By: VERONICA Metoprolol Tartrate (Metoprolol Tartrate 50 Mg Tablet) 50 mg PO BID [facility]; Protocol Last Admin: 02/17/25 22:05 Dose: 50 mg Documented By: VERONICA Omeprazole (Omeprazole 40 Mg Capsule.Dr) 40 mg PO DAILY@0630 [facility] Last Admin: 02/18/25 05:27 Dose: 40 mg Documented By: VERONICA Phenazopyridine HCl (Phenazopyridine Hcl 100 Mg Tablet) 100 mg PO BIDWM PRN PRN Reason: dysuria Stop: 02/18/25 13:09 Last Admin: 02/17/25 22:03 Dose: 100 mg Documented By: VERONICA Polyethylene Glycol (Polyethylene Glycol 3350 17 Gm Powd.Pack) 17 gm PO DAILY [facility] Last Admin: 02/17/25 07:41 Dose: 17 gm Documented By: OCTAVIA Sodium Chloride (0.9 % Sodium Chloride Flush 3 Ml Syringe) 3 ml IVFLUSH QSHIFT [facility] Last Admin: 02/17/25 22:07 Dose: 3 ml Documented By: VERONICA Vitamin D (Cholecalciferol (Vitamin D3) 25 Mcg Tablet) 50 mcg PO DAILY [facility] Last Admin: 02/17/25 07:41 Dose: 50 mcg Documented By: OCTAVIA Labs 02/17/25 06:32 02/17/25 06:32 Labs: Laboratory Results - last 24 hr 02/17/25 02/17/25 02/17/25 11:05 16:27 20:14 POC Glucose 153 H 117 H 143 H 02/18/25 07:28 POC Glucose 131 H Microbiology Microbiology Results: Microbiology 02/15/25 15:03 Blood Culture - Final Blood - Venous Escherichia coli 02/15/25 15:14 Blood Culture - Preliminary Blood - Venous No growth after 48 hours. 02/15/25 Unknown Urine Culture - Final Urine clean catch - Clean Catch Midstream Escherichia coli Assessment and Plan (1) Urinary frequency: Status: Acute Plan 79F PMH chronic hypoxic respiratory failure due to COPD on 2 L home O2, diabetes, GERD, IBS, hypertension, obesity, recent ESBL UTI December 2024 presented with dysuria and suprapubic pain Urinary tract infection due to esbl ecoli complicated by bacteremia IV meropenem, follow up culture CT showed stable peripherally enhancing fluid density focus inferior to the urinary bladder possibly indicating uninfected cystic lesion versus dilated urethra underlying neoplasm not excluded- - cysto today 02/18/25 can change to ertapenem on dishcarge - end date 02/28/25, patient would prefer to complete IV abx at home Chronic hypoxic respiratory failure due to COPD Stable on 2 L Diabetes insulin sliding scale obesity weight loss dvt prophylaxis - lovenox DNR/DNI reason for continued hospitalization:cysto Quality Stroke Does the patient have a stroke diagnosis?: No VTE Prior VTE?: Yes VTE Risk Level:: Medical - moderate - high VTE Device Contraindication: Treatment Not Indicated VTE Drug Contraindication: N/A - Med Ordered
[2025-02-18] MEDS: 0.9 % Sodium Chloride Flush 3 ML SYRINGE IVFLUSH ×3 (09:08→21:00)
--- NOTE | 2025-02-18 10:25 | MHC.CM.PN ---
CM MET WITH PT TO DISCUSS DCP SHE UNDERSTANDS SHE WILL NEED 2 WEEKS OF IV ERTAPENEM SHE SAYS HER GRANDDAUGHTER, FORTUNATO WILL BE ASSISTING WITH MED ADMINISTRATION REFERRALS SENT TO [facility] AND [facility]
[2025-02-18 11:35] LABS: Glucose, Whole Blood 112 mg/dL (60-115)
--- NOTE | 2025-02-18 14:03 | PC.NURSE ---
Patient off unit for procedure
[2025-02-18 14:14] LABS: Glucose, Whole Blood 105 mg/dL (60-115)
[2025-02-18] MEDS: Gentamicin Sulfate/NaCl 80 MG/100 ML PIGGYBACK 100 MG IV (16:25)
--- NOTE | 2025-02-18 16:53 | W.PM.OPN ---
Operative Note Operative Note Date of Service: 02/18/25 Narrative: PREOP DIAGNOSIS: UTI, cystitis, urethral mass POSTOP DIAGNOSIS: Cystitis, Urethral Diverticulum PROCEDURE: Pelvic exam under anesthesia, Cystoscopy, Urethral Dilation Anethesia: General Surgeon: Dr. Jevon Dougherty Indications: Recurrent bacteuria, dysuria, pyuria Details of procedure: The patient was brought into the operating room placed on the OR table in supine position. IV Antibiotic confirmed. General anesthesia was administered. The patient was repositioned into lithotomy position, prepped and draped in the usual sterile fashion. Time-out was done per protocol. Pelvic Exam: Vaginal atrophy, no significant vaginal prolapse, cervix in appropriate position, urethral bulge and induration. On attempts to place the 22 fr cystoscope transurethrally there was resistance at the uretheral meatus. The [place] sounds were used to starting with 8 fr and sequentially dilated to 22 fr, pus was expelled - swab for culture sent. The 22 fr cystoscope was than passed transurethrally into the bladder. The entire bladder was visualized. There were no suspicious bladder lesions seen. There were moderate trabeculations and cellule changes with small diverticuli noted. The bladder and urethra were examined with a 30 and 70 degree lens. 18 fr brown catheter placed. The patient was brought out of anesthesia and taken to recovery in stable condition. Recommend MR pelvis for further evaluation. Complications: None EBL: minimal (<5 mL) Drain: 18 fr brown
[2025-02-18 17:48] LABS: Glucose, Whole Blood 107 mg/dL (60-115)
[2025-02-18 20:20] LABS: Glucose, Whole Blood 126 mg/dL (60-115)
[2025-02-19 02:35] VITALS: BP 133/61; PULSE 97; RESP 17; TEMP 36.5; O2SAT 96
[2025-02-19 06:38] LABS: Hematocrit 30.0 % (37.0-47.0); Hemoglobin 10.1 g/dl (12.0-16.0); Mean Corpuscular HGB Conc 33.7 g/dl (31.0-35.0); Mean Corpuscular Hemoglobin 29.1 pg (27.0-33.0); Mean Corpuscular Volume 86.5 fL (80.0-98.0); NRBC Abs Auto 0.000 X10*3/uL (0.0-0.012); NRBC Pct Auto 0.0 /100WBC (0.0-0.2); Platelet Count 222 X10*3/uL (160-400); Red Blood Count 3.47 X10*6/uL (4.20-5.50); White Blood Count 9.4 X10*3/uL (4.8-10.8)
--- NOTE | 2025-02-19 06:40 | PC.NURSE ---
on assessment blood found in demond-area, to be leaking around brown. Red tinged blood in brown bag. Urologist, Dr. Roach made aware and informed this RN it is to be expected, and that brown can be flushed PRN.
[2025-02-19 06:52] LABS: Anion Gap 13 (12-20); Blood Urea Nitrogen 16 mg/dL (9-16); Calcium 8.4 mg/dL (8.4-10.2); Carbon Dioxide 30 mmol/L (22-29); Chloride 102 mmol/L (96-108); Creatinine Clr Calc Pharmacy 41.7; Estimated Glomerular Filt Rate 52; Potassium 4.2 mmol/L (3.3-5.1); Sodium 141 mmol/L (135-145)
[2025-02-19 07:34] LABS: Glucose, Whole Blood 100 mg/dL (60-115)
[2025-02-19 07:40] VITALS: BP 136/60; PULSE 90; RESP 18; TEMP 36; O2SAT 95
[2025-02-19] MEDS: Fluticasone/Umeclidinium/Vilanterol 200/62.5/25 BLST.W.DEV 1 PUFF INHALE (07:46)
[2025-02-19 07:49] VITALS: PULSE 90; RESP 18
--- NOTE | 2025-02-19 08:18 | HO.POSTANES ---
Post Anesthesia Evaluation Post Anesthesia Evaluation Date of Service: 02/19/25 Vital Signs: Vital Signs Temp Pulse Resp BP Pulse Ox O2 Del Method 02/19/25 07:49 90 18 02/19/25 07:40 96.8 F 90 18 136/60 95 Room Air 02/19/25 02:35 97.7 F 97 17 133/61 96 Room Air 02/18/25 21:00 100 134/59 L Anesthesia: General Mental Status: Awake Pain Control: Satisfactory Nausea/Vomiting: None Hydration: Adequate Anesthesia-Related Issues: No Anes. Related Issues
[2025-02-19] MEDS: Aspirin Enteric Coated 81 MG TABLET.DR PO (08:31)
[2025-02-19] MEDS: 0.9 % Sodium Chloride Flush 3 ML SYRINGE IVFLUSH ×3 (08:32→20:06)
[2025-02-19 11:45] LABS: Glucose, Whole Blood 125 mg/dL (60-115)
[2025-02-19 15:25] VITALS: BP 130/65; PULSE 109; RESP 18; TEMP 36.1; O2SAT 92
--- NOTE | 2025-02-19 15:38 | P.PNIM_ITS ---
Subjective Subjective Date of Service: 02/20/25 Interval History: Urinary tract infection due to esbl ecoli complicated by bacteremia Review of Systems abd pain /symptoms imrpoving no fevers Review of Systems: Yes all other systems are reviewed and are negative Physical Exam 2 Exam: Exam: Appearance: Alert.? Oriented X3.? cvs: [id number], [id number] . res: clear to auscultation ,no rhonchii or wheezing abd: no rebound or guarding ,mild abd discomfort, bs present. ext pulses present , no cyanosis. neuro: axo3 , nonfocal. Vital Signs: Vital Signs: Last Vital Signs Temp 97.0 F 02/19/25 15:25 Pulse 109 H 02/19/25 15:25 Resp 18 02/19/25 15:25 BP 130/65 02/19/25 15:25 Pulse Ox 92 02/19/25 15:25 O2 Del Method Room Air 02/19/25 07:40 O2 Flow Rate 2 02/18/25 17:10 BMI result Body Mass Index 30.2 Objective Data Active Medications Acetaminophen (Acetaminophen 325 Mg Tablet) 650 mg PO Q6H PRN PRN Reason: Pain, Mild 1-3,fever,headache Last Admin: 02/19/25 08:31 Dose: 650 mg Documented By: HEMANTH Albuterol Sulfate (Albuterol Sulfate 90 Mcg 8 Gm Inhaler) 2 puff INHALE RQ4H PRN PRN Reason: for wheezing Aspirin (Aspirin Enteric Coated 81 Mg Tablet.) 81 mg PO DAILY [facility] Last Admin: 02/19/25 08:31 Dose: 81 mg Documented By: HEMANTH Atorvastatin Calcium (Atorvastatin Calcium 80 Mg Tablet) 80 mg PO DAILY [facility] Last Admin: 02/19/25 08:31 Dose: 80 mg Documented By: HEMANTH Calcium Carbonate (Calcium Carbonate 750 Mg Tab.Chew) 750 mg PO Q4H PRN PRN Reason: Heartburn Last Admin: 02/16/25 14:34 Dose: 750 mg Documented By: KY Dextrose (Dextrose 50 % 25 Gm/50 Ml Syringe) 25 gm IVPUSH Q15M PRN; Protocol PRN Reason: per Hypoglycemia Standing Ord. Enoxaparin Sodium (Enoxaparin Sodium 40 Mg/0.4 Ml Syringe) 40 mg SUBCUT Q24H [facility] Last Admin: 02/19/25 08:32 Dose: 40 mg Documented By: HEMANTH Fluticasone Propionate (Fluticasone Propionate Nasal 16 Gm [place]) 2 spray NOSTRIL-B DAILY [facility] Last Admin: 02/19/25 08:32 Dose: 2 spray Documented By: HEMANTH Fluticasone/Umeclidinium/Vilanterol (Fluticasone/Umeclidinium/Vilanterol 200/62.5/25 Blst.W.Dev) 1 puff INHALE RDAILY [facility] Last Admin: 02/19/25 07:46 Dose: 1 puff Documented By: ANT Furosemide (Furosemide 20 Mg Tablet) 20 mg PO DAILY [facility]; Protocol Last Admin: 02/19/25 08:30 Dose: 20 mg Documented By: HEMANTH Glucose (Glucose Gel 15 Gm Gel..Gram.) 15 gm PO Q15M PRN; Protocol PRN Reason: per Hypoglycemia Standing Ord. Hydromorphone HCl (Hydromorphone Hcl 0.5 Mg/0.5 Ml Syringe) 0.5 mg IVPUSH Q3H PRN; Protocol PRN Reason: Pain, Severe (Pain Scale 7-10) Last Admin: 02/19/25 02:41 Dose: 0.5 mg Documented By: YOVANI Insulin Human Lispro (Insulin Lispro 100 Unit/Ml 3 Ml Vial) 0 unit SUBCUT QIDACHS [facility]; Protocol Last Admin: 02/19/25 12:05 Dose: Not Given Documented By: HEMANTH Non-Admin Reason: No Insulin Coverage Isosorbide Mononitrate (Isosorbide Mononitrate 30 Mg Tab.Er.24h) 30 mg PO DAILY [facility]; Protocol Last Admin: 02/19/25 08:31 Dose: 30 mg Documented By: HEMANTH Loratadine (Loratadine 10 Mg Tablet) 10 mg PO DAILY [facility] Last Admin: 02/19/25 08:31 Dose: 10 mg Documented By: HEMANHT Magnesium Hydroxide (Milk Of Magnesia 30 Ml Oral.Susp) 30 ml PO DAILY PRN PRN Reason: Constipation Last Admin: 02/16/25 20:45 Dose: 30 ml Documented By: VERONICA Melatonin (Melatonin 3 Mg Tablet) 6 mg PO BEDTIME PRN PRN Reason: Insomnia Last Admin: 02/17/25 22:05 Dose: 6 mg Documented By: VERONICA Meropenem (Meropenem 1 Gm Vial) 1 gm IVPUSH Q12H [facility] On Hold: 02/19/25 11:56 Last Admin: 02/19/25 05:57 Dose: 1 gm Documented By: YOVANI Metoprolol Tartrate (Metoprolol Tartrate 50 Mg Tablet) 50 mg PO BID [facility]; Protocol Last Admin: 02/19/25 08:31 Dose: 50 mg Documented By: HEMANTH Omeprazole (Omeprazole 40 Mg Capsule.Dr) 40 mg PO DAILY@0630 [facility] Last Admin: 02/19/25 05:57 Dose: 40 mg Documented By: YOVANI Polyethylene Glycol (Polyethylene Glycol 3350 17 Gm Powd.Pack) 17 gm PO DAILY [facility] Last Admin: 02/19/25 08:32 Dose: 17 gm Documented By: HEMANTH Sodium Chloride (0.9 % Sodium Chloride Flush 3 Ml Syringe) [facility] Last Admin: 02/19/25 14:57 Dose: 3 ml Documented By: HEMANTH Vitamin D (Cholecalciferol (Vitamin D3) 25 Mcg Tablet) 50 mcg PO DAILY [facility] Last Admin: 02/19/25 08:31 Dose: 50 mcg Documented By: HEMANTH Labs 02/19/25 05:54 02/19/25 05:54 Labs: Laboratory Results - last 24 hr 02/18/25 02/18/25 02/19/25 17:44 20:14 05:54 MCV 86.5 MCH 29.1 MCHC 33.7 RDW 15.6 Plt Count 222 MPV 10.5 Absolute Nucleated RBC 0.000 Nucleated RBC % (auto) 0.0 Anion Gap 13 Estim Creat Clear Calc 41.7 Estimated GFR 52 POC Glucose 107 126 H Random Glucose 106 Calcium 8.4 02/19/25 02/19/25 07:30 11:41 MCV MCH MCHC RDW Plt Count MPV Absolute Nucleated RBC Nucleated RBC % (auto) Anion Gap Estim Creat Clear Calc Estimated GFR POC Glucose 100 125 H Random Glucose Calcium Microbiology Microbiology Results: Microbiology 02/18/25 16:36 Gram Stain - Final Urethra Routine Culture - Preliminary Culture in progress. Assessment and Plan (1) UTI (urinary tract infection): Status: Acute Assessment and Plan: 79F PMH chronic hypoxic respiratory failure due to COPD on 2 L home O2, diabetes, GERD, IBS, hypertension, obesity, recent ESBL UTI December 2024 presented with dysuria and suprapubic pain Urinary tract infection due to esbl ecoli complicated by bacteremia IV meropenem, follow up culture CT showed stable peripherally enhancing fluid density focus inferior to the urinary bladder possibly indicating uninfected cystic lesion versus dilated urethra underlying neoplasm not excluded- - cysto today 02/18/25 can change to ertapenem on dishcarge - end date 02/28/25, patient would prefer to complete IV abx at home Chronic hypoxic respiratory failure due to COPD Stable on 2 L Diabetes insulin sliding scale obesity weight loss dvt prophylaxis - lovenox DNR/DNI reason for continued hospitalization:cysto Quality Stroke Does the patient have a stroke diagnosis?: No VTE Prior VTE?: Yes VTE Risk Level:: Medical - moderate - high VTE Device Contraindication: Treatment Not Indicated VTE Drug Contraindication: N/A - Med Ordered
--- NOTE | 2025-02-19 15:51 | MHC.CM.PN ---
Patient will discharge to home pending line placement. [facility] is aware that the line has not been inserted yet today. DP Home with [facility] for IV ABX home infusion. Patient will arrange for transportation home.
[2025-02-19 15:57] LABS: Glucose, Whole Blood 111 mg/dL (60-115)
[2025-02-19 19:04] VITALS: BP 129/60; PULSE 107; RESP 18; TEMP 36.1; O2SAT 97
[2025-02-19 19:57] LABS: Glucose, Whole Blood 106 mg/dL (60-115)
[2025-02-20 03:18] VITALS: BP 122/61; PULSE 99; RESP 18; TEMP 36.9; O2SAT 95
[2025-02-20 07:31] LABS: Glucose, Whole Blood 110 mg/dL (60-115)
[2025-02-20 07:42] VITALS: BP 135/60; PULSE 86; RESP 18; TEMP 36.1; O2SAT 95
[2025-02-20] MEDS: Fluticasone/Umeclidinium/Vilanterol 200/62.5/25 BLST.W.DEV 1 PUFF INHALE (07:54)
[2025-02-20 07:56] VITALS: PULSE 86; RESP 18; O2SAT 98
[2025-02-20] MEDS: Aspirin Enteric Coated 81 MG TABLET.DR PO (08:38)
[2025-02-20] MEDS: 0.9 % Sodium Chloride Flush 3 ML SYRINGE IVFLUSH ×2 (08:39→16:55)
[2025-02-20 11:21] LABS: Glucose, Whole Blood 110 mg/dL (60-115)
[2025-02-20] MEDS: oxyCODONE HCl Immed Release 5 MG TABLET PO (11:36)
--- NOTE | 2025-02-20 15:10 | MHC.CM.PN ---
Addendum entered by Venus Lopez 02/20/25 16:14: The Midline has been placed. The documentation is not available yet. [facility] have been notified that the line documentation may have to be sent tomorrow morning. Original Note: IMM 02/20/25 Patient is scheduled for line placement this afternoon. [facility] will deliver medication and supplies tomorrow. [facility] has been notified of discharge today. Patient will arrange for transportation home.
--- NOTE | 2025-02-20 15:54 | P.DS_ITS ---
DS: Providers Provider Date of Service: 02/20/25 Date of admission: 02/15/25 17:01 Date of discharge: 02/20/25 Primary care physician: Kathy Rizo MD Consults: 02/15/25 17:08 Consult to Urology Routine Consulting Provider: [facility] Reason for consultation: ?bladder lesion, UTI Attending physician on discharge: Humberto Araujo Discharging clinician: Humberto Araujo DS: Diagnosis Discharge Diagnosis (1) UTI (urinary tract infection): Status: Acute DS: Summary Hospital Course Hospital Course: HPI:79F PMH chronic hypoxic respiratory failure due to COPD on 2 L home O2, diabetes, GERD, IBS, hypertension, obesity, recent ESBL UTI December 2024 presented with dysuria and suprapubic pain. Patient states symptoms began 3 days prior to presentation. Suprapubic pressure-like pain 10/10, continuous, associated with dysuria and chills. Reports grayish urine. Patient denies any fevers, chest pain, shortness of breath. In ED noted to have leukocytosis and pyuria/bacturia Hospital course: Patient was admitted to the hospital because of UTI: Urine culture blood cultures sent, found the patient was found to have ESBL UTI, in addition urology consulted because ct abd: CT showed stable peripherally enhancing fluid density focus inferior to the urinary bladder possibly indicating uninfected cystic lesion versus dilated urethra underlying neoplasm not excluded.urology recomended outpatient MRI pelvis. Also consider outpatient leisure travel agent evaluation. Qureshi catheter removed-patient urinated fine. complete ertapenem on dishcarge - end date 02/28/25. Midline was placed for antibiotics. Consider Monitoring CBC, BMP, LFT in 1 week since on antibiotics. Plan: Completed ertapenem course as above. Consider outpatient MRI, leisure travel agent evaluation outpatient. In addition patient is to follow-up with Urology outpatient. Above management discussed with the patient in detail length she understand and in agreement with the above plan, time spent 45 minutes and 50% time spent on counseling. Above was discussed with the patient daughter over the phone(daughter name is elle) in detail length she understand and in agreement also. Time Attestation Total time managing care of this patient today: 45 mintues. Discharge Coordination Time (in mins): 45 min Quality: Safe Use of Opioids Does Pt have an Active Cancer Diagnosis on the Problem List?: No Quality: Stroke Does the patient have a stroke diagnosis?: No Physical Exam Exam: Exam: Appearance: Alert.? Oriented X3.? cvs: rrr, [id number] . res: clear to auscultation ,no rhonchii or wheezing abd: no rebound or guarding ,mild abd discomfort, bs present. ext pulses present , no cyanosis. neuro: axo3 , nonfocal. Vital Signs: Vital Signs: Last Vital Signs Temp 96.9 F 02/20/25 07:42 Pulse 86 02/20/25 07:56 Resp 18 02/20/25 07:56 BP 135/60 02/20/25 07:42 Pulse Ox 95 02/20/25 07:42 O2 Del Method Room Air 02/20/25 07:42 O2 Flow Rate 2 02/18/25 17:10 BMI result Body Mass Index 30.2 DS: Data Data Completed and Pending Completed studies during hospitalization [Text1]: Procedures Insertion of Infusion Device into Right Basilic Vein, Percutaneous Approach (12/27/24) Labs on day of discharge: Laboratory Results - last 24 hr 02/19/25 02/19/25 02/20/25 15:47 19:48 07:23 POC Glucose 111 106 110 02/20/25 11:17 POC Glucose 110 Preliminary micro results at discharge 02/18/25 16:36 Routine Culture - Preliminary Urethra Gram negative nikolas 02/15/25 15:14 Blood Culture - Preliminary Blood - Venous No growth after 48 hours. Imaging Chest x-ray: My impression: ct abd:1. Stable peripherally enhancing fluid density focus inferior to the urinary bladder, possibly indicating uninfected cystic lesion versus dilated urethra. Underlying neoplasm can not be excluded. Gynecologic consultation recommended. 2. Urinary bladder wall thickening, suggestive of cystitis. Correlation with urinalysis is recommended. Discharge Plan Discharge Anticipated Discharge Date/Time: 02/20/25 15:27 Patient Disposition: Home Health Service Discharge Diagnosis: uti likely esbl Referrals: [facility] Home infusion [Other] - 1 Week [facility] [Outside] - 1 Week Jevon Dougherty MD [Physician, Urology] - 1 Week Kathy Christopher MD [Primary Care Provider, Internal Medicine] - 1 Week Discharge Medications: New ertapenem 1 gram recon soln 1 g IV DAILY Rx Instructions: end date is 02/28/25 Continued cholecalciferol (vitamin D3) 50 mcg (2,000 unit) capsule 50 mcg PO DAILY 30 Days Qty: 30 3RF dexlansoprazole 60 mg capsule,biphase delayed releas 60 mg PO DAILY Qty: 90 3RF lidocaine 5 % adhesive patch,medicated 1 patch topical DAILY Qty: 15 0RF Rx Instructions: leave on most painful area for up to 12 hrs diclofenac sodium 1 % gel 1 ea topical DAILY PRN (Reason: Pain (Scale Score 1-3)) polyethylene glycol 3350 [Miralax] 17 gram/dose Powder 17 g PO DAILY atorvastatin 80 mg tablet 80 mg PO DAILY furosemide 20 mg tablet 20 mg PO DAILY Trelegy Ellipta 200-62.5-25 mcg blister with device 1 ea INHALATION DAILY albuterol sulfate 2.5 mg /3 mL (0.083 %) solution for nebulization 2.5 mg inhalation Q4H PRN (Reason: wheezing) nitroglycerin 0.4 mg tablet, sublingual 0.4 mg sublingual ONCE PRN (Reason: Chest Pain) cetirizine 10 mg tablet 10 mg PO DAILY aspirin 81 mg tablet,delayed release (DR/EC) 81 mg PO DAILY isosorbide mononitrate 30 mg tablet extended release 24 hr 30 mg PO DAILY fluticasone propionate 50 mcg/actuation spray,suspension 2 spray intranasal DAILY 30 Days Qty: 15.8 11RF melatonin 10 mg tablet 10 mg PO BEDTIME PRN (Reason: Sleep) (DME) Oxygen Home Use Kit See Rx Instructions .Route Rx Instructions: As directed (DME) nebulizers [facility] See Rx Instructions .Route Rx Instructions: As directed metoprolol tartrate 50 mg tablet 50 mg PO BID metformin 500 mg tablet extended release 24 hr 500 mg PO DAILY albuterol sulfate 90 mcg/actuation HFA aerosol inhaler 2 puff PO Q4H PRN (Reason: for wheezing) Qty: 1 11RF sennosides [senna] 8.6 mg tablet 17.2 mg PO DAILY PRN (Reason: constipation) 90 Days Qty: 180 1RF Discharge Orders: Discharge Order (Routine); Ordered 02/20/25 Ordered By: Humberto Araujo Diet: Advance to usual diet Activity on Discharge: As tolerated Stand Alone Forms: Patient Portal Discharge page Print Language: Faroese Other Ambulatory Orders: Basic Metabolic Panel (Routine) Timeframe: 1 Week Facility: [facility] - Location: Laboratory Ordered By: Humberto Araujo Complete Blood Count no Diff (Routine) Timeframe: 1 Week Facility: [facility] - Location: Laboratory Ordered By: Humberto Araujo Liver Panel (Routine) Timeframe: 1 Week Facility: [facility] - Location: Laboratory Ordered By: Humberto Araujo Care Plan Goals: complete ertapenem on dishcarge - end date 02/28/25. Consider Monitoring CBC, BMP, LFT in 1 week since on antibiotics. s/p cystoscopy:Cystitis, Urethral Diverticulum, ct abd: CT showed stable peripherally enhancing fluid density focus inferior to the urinary bladder possibly indicating uninfected cystic lesion versus dilated urethra underlying neoplasm not excluded.urology recomended outpatient MRI pelvis. Health Concerns: as above. Plan of Treatment: as above. Assessment: as above. Discharge Date/Time: 02/20/25 17:55
[2025-02-20 16:00] VITALS: BP 119/62; PULSE 108; RESP 17; TEMP 36.7; O2SAT 92
--- NOTE | 2025-02-20 16:24 | P.F2F_ITS ---
Service Date Service Date: 02/20/25 Encounter Date of encounter: 02/20/25 Encounter: uti Reasons for Services Signs and symptoms assessed: Any new fever or dysuria or any new symptoms Reason for senior living: medication management, medication treatment and teach disease management MD Overseeing Care: Kathy Rizo Homebound: Leaving the home is medically contraindicated at this time without the asist of a device and/or another person due th the listed conditions above and below. Reason homebound: weakness related to hospital stay Homebound supporting statement: Patient is generalised weak post hospitlisation and need help with going to appointments and labs draws . Certification: Based on the above findings, I certify that this patient is confined to the home and needs intermittent senior living care, physical therapy and/or speech therapy, or continues to need occupational therapy. The patient is under my care, and I have initiated the establishment of the plan of care. The patient will be followed by a physician who will periodically review the plan of care. Time Spent With Patient Time: Total time managing care of this patient today ____ minutes.
--- NOTE | 2025-02-20 16:31 | HO.MIDLINE ---
Midline Insertion MIDLINE INSERTION Diagnosis: UTI/bacteremia Indication: abt Pertinent Labs: reviewed Technique: Using sterile technique including cap and mask, glove and drape, the right arm was prepped and draped in the usual sterile fashion of full barrier technique with CHG. Using ultrasound guidance, right cephalic vein access was obtained . 4fr single lumen nonpasv power midline trimmed to 10cm was positioned. The procedure was performed in rm [id number]. Ultrasound was used to document vein patency and for needle entry. A formal ultrasound picture was recorded. [employer] has released the line for use and it is currently dressed with a StatLock, Tegaderm, and CHG disc. Verification has been performed for blood return and line patency. Arm Circumference: 32cm Equipment: [employer] powermidline Catheter Type: 4fr single lumen non pasv catheter Lot #: [id number]
[2025-02-20 16:48] LABS: Glucose, Whole Blood 107 mg/dL (60-115)
== END 2025-02-20 17:55 | disposition home health service (06) | DRG 699 ==
LOC: HO.ED 14:40 → HO.EDOVER 17:36 → HO.S3 19:40
PROVIDERS: Physician Assistant; Urology; Admitting Provider Internal Medicine; Emergency Provider Emergency Medicine; PCP Internal Medicine; Visit Provider Internal Medicine
PROC: 0T7D8ZZ Dilation of Urethra, Via Natural or Artificial Opening Endoscopic (ICD-10-PCS; principal; 2025-02-18 17:20)
DX: N36.1 Urethral diverticulum (principal); J96.11 Chronic respiratory failure with hypoxia; N39.0 Urinary tract infection, site not specified; R78.81 Bacteremia; Z16.12 Extended spectrum beta lactamase (ESBL) resistance; B96.20 Unspecified Escherichia coli [E. coli] as the cause of diseases classified elsewhere; I12.9 Hypertensive chronic kidney disease with stage 1 through stage 4 chronic kidney disease, or unspecified chronic kidney disease; N18.30 Chronic kidney disease, stage 3 unspecified; E11.22 Type 2 diabetes mellitus with diabetic chronic kidney disease; J44.9 Chronic obstructive pulmonary disease, unspecified; Z66 Do not resuscitate; N32.89 Other specified disorders of bladder; E66.9 Obesity, unspecified; Z68.30 Body mass index [BMI] 30.0-30.9, adult; Z71.3 Dietary counseling and surveillance; Z99.81 Dependence on supplemental oxygen; Z87.891 Personal history of nicotine dependence; Z87.440 Personal history of urinary (tract) infections; Z79.51 Long term (current) use of inhaled steroids; Z79.82 Long term (current) use of aspirin; Z79.899 Other long term (current) drug therapy
CPT/HCPCS: 36410; 36415; 74177; 80048; 81001; 82947; 83605; 83735; 85025; 85027; 87040; 87070; 87077; 87086; 87088; 87186; 87205; 94640; 99285; C1751; J0131; J1171; J1335; J1580; J1650; J2185; J2270; J2371; J2405; J2704; J3010; Q9967

== ENCOUNTER → 2025-02-15 12:56 | Outpatient (BNV) | payer OTHER, SELFPAY | PROVIDERS: Emergency Provider Emergency Medicine; PCP Internal Medicine; Visit Provider Internal Medicine | DX: R35.0 Frequency of micturition (principal) | CPT/HCPCS: 99223; 99231; 99232; 99233; 99239; G0180 ==

== ENCOUNTER → 2025-02-15 14:57 | Outpatient (BNV) | payer OTHER, SELFPAY | PROVIDERS: Emergency Provider Emergency Medicine; PCP Internal Medicine; Visit Provider Radiology Diagnostic Radiology | DX: N32.89 Other specified disorders of bladder (principal) | CPT/HCPCS: 74177 ==

== ENCOUNTER → 2025-02-15 17:01 | Outpatient (BNV) | payer OTHER, SELFPAY | PROVIDERS: Admitting Provider Internal Medicine; Emergency Provider Emergency Medicine; PCP Internal Medicine; Visit Provider Urology | DX: R93.5 Abnormal findings on diagnostic imaging of other abdominal regions, including retroperitoneum (principal); R30.0 Dysuria; N30.90 Cystitis, unspecified without hematuria | CPT/HCPCS: 99222 ==

== ENCOUNTER 2025-02-24 17:00 | Observation (INO) | payer OTHER, SELFPAY ==
--- NOTE | ~2025-02-24 | XR_ITS ---
CLINICAL HISTORY: cp 1 view chest x-ray Comparison: CR - XR CHEST 1V - 06/19/24 14:27 EST Findings: Moderate diffuse interstitial prominence in both lungs may represent pulmonary vascular congestion/fluid overload. Normal size heart. No acute fracture. IMPRESSION: Moderate diffuse interstitial prominence in both lungs may represent pulmonary vascular congestion/fluid overload. This document has been electronically signed by: Jacqueline Santana MD on 02/24/2025 22:06:20
--- NOTE | ~2025-02-24 | CT_ITS ---
CLINICAL HISTORY: fall CT CERVICAL SPINE WITHOUT CONTRAST COMPARISON: None provided. FINDINGS: No evidence of an acute fracture or dislocation within the cervical spine. There is mild rightward tilt of the cervical spine. Straightening of the normal cervical lordosis is noted multilevel endplate degenerative changes and facet arthrosis are present. No prevertebral soft tissue swelling. Carotid calcifications are present. No pneumothorax in the lung apices. IMPRESSION: 1. No evidence of an acute fracture or dislocation. This document has been electronically signed by: Porter Raya M.D. on 02/25/2025 02:40:08
--- NOTE | ~2025-02-24 | CT_ITS ---
CLINICAL HISTORY: dizzy CT BRAIN WITHOUT CONTRAST COMPARISON: None provided. FINDINGS: There is mild parenchymal atrophy. There is no evidence of an acute infarct or intraparenchymal hemorrhage. Senescent calcifications are noted within the lentiform nuclei. Empty sella is incidentally noted. Patchy areas of low attenuation are noted in the subcortical and periventricular regions of the supratentorial brain which are nonspecific but most likely represent chronic small vessel ischemic disease. There is no mass effect, midline shift, or extra-axial blood. The ventricles are normal in size without evidence of hydrocephalus. The bone windows are unremarkable. There is remote posttraumatic change involving the medial wall of the right orbit. Small retention cyst or polyp is noted within the left maxillary sinus. IMPRESSION: 1. No acute disease in the brain. This document has been electronically signed by: Porter Raya M.D. on 02/25/2025 02:30:00
--- NOTE | 2025-02-24 17:03 | ECG_ITS ---
Test Reason : WEAKNESS Blood Pressure : */* mmHG Vent. Rate : 89 BPM Atrial Rate : 89 BPM P-R Int : 140 ms QRS Dur : 78 ms QT Int : 356 ms P-R-T Axes : 71 41 48 degrees QTcB Int : 433 ms Normal sinus rhythm Normal ECG When compared with ECG of 19-Jun-2024 14:48, T wave inversion less evident in Anterior leads Referred By: Yuli [email or web address] Electronically Signed By: CHUCHO BALTAZAR MD
[2025-02-24 17:10] VITALS: BP 104/64; BP 111/59; PULSE 90; PULSE 94; RESP 16; TEMP 37.2; O2SAT 98; O2SAT 99; BMI 30.6
[2025-02-24 17:44] LABS: MANUAL DIFF FLAG NO
[2025-02-24 17:46] LABS: Hematocrit 29.7 % (37.0-47.0); Hemoglobin 10.0 g/dl (12.0-16.0); Imm Gran Abs Auto 0.07 X10*3/uL (0.00-0.03); Imm Gran Pct Auto 0.8 % (0.0-0.4); Lymphocytes Absolute Auto 1.9 X10*3/uL (1.2-4.9); Mean Corpuscular HGB Conc 33.7 g/dl (31.0-35.0); Mean Corpuscular Hemoglobin 29.6 pg (27.0-33.0); Mean Corpuscular Volume 87.9 fL (80.0-98.0); NRBC Abs Auto 0.000 X10*3/uL (0.0-0.012); NRBC Pct Auto 0.0 /100WBC (0.0-0.2); Platelet Count 305 X10*3/uL (160-400); Red Blood Count 3.38 X10*6/uL (4.20-5.50); White Blood Count 8.9 X10*3/uL (4.8-10.8)
[2025-02-24 18:00] VITALS: BP 112/61; PULSE 86; RESP 16; TEMP 36.4; O2SAT 94
[2025-02-24 18:04] LABS: Alanine Aminotransferase 13 U/L (0-31); Albumin Level 3.7 g/dL (3.5-5.0); Alkaline Phosphatase 77 U/L (39-117); Anion Gap 12 (12-20); Aspartate Amino Transferase 21 U/L (5-31); Blood Urea Nitrogen 12 mg/dL (9-16); Calcium 8.7 mg/dL (8.4-10.2); Carbon Dioxide 27 mmol/L (22-29); Chloride 107 mmol/L (96-108); Creatinine Clr Calc Pharmacy 49.0; Estimated Glomerular Filt Rate 57; Magnesium 1.9 mg/dL (1.6-2.6); Potassium 4.0 mmol/L (3.3-5.1); Sodium 142 mmol/L (135-145); Total Protein 6.3 g/dL (6.5-8.0)
[2025-02-24 18:09] LABS: INTERNATIONAL NORM RATIO 1.1 (0.9-1.1); Prothrombin Time 12.1 SEC (10.9-12.4)
[2025-02-24 18:10] LABS: Troponin-I High Sensitivity 4.7 ng/L (<3.5-17.0)
--- OUTSIDE RECORDS SUMMARY | 2025-02-24 18:55 | XMS_ITS | Clinical Summary ---
Author Organization [facility] Address [address] [place] [address] Phone Care Team Providers Care Transfer Machine Operator Name Role Phone Kathy Perez [...] 32.9 in adult 04/23/2024 Mucopurulent chronic bronchitis ([facility] V24, CM S/[facility] V28) 05/24/2023 Palpitations 05/24/2023 Chronic heart failure with p reserved ejection fraction ([facility] V24, [facility] V28) 11/24/2022 Assessment & Plan [...] disease, without long-term current use of insulin ([facility] V24, [facility] V28) 11/04/2019 Mammographic microcalcification 01/10/2019 Hearing decreased, bilateral 12/18/2018 COPD (chronic obstructive pu lmonary disease) ([facility] V24, [facility] V28) 12/10/2018 Assessment & Plan (07/30/2024 3:00 PM EST): Recent exacerbation, was evaluated in the emergency. Started on prednisone. Currently stable. Supplemental oxygen dependent 12/10/2018 Obstructive sleep apnea 11/21/2018 Overview (04/23/2024): [facility] Home Sleep Apnea Test: Date 11/18/2018; Wt 192#; BMI 33; HAYLEY 16, AI 1; HI 14; Unclassified apneas 0; Obstructive apneas 10; Central apneas 0; Mixed apneas 0; hypopneas 126; average oxygen saturation 88% (lowest 73% with saturations <88% for 5% or more of study) [facility] Polysomnogram treatment study. Date [...] kidney disease) stage 3, GFR 30-59 ml/min ([facility] V24, [facility] V28) 05/31/2017 Assessment & Plan (07/30/2024 3:00 PM EST): GFR around 50. Stable over the last year. Encouraged to avoid nephrotoxics, good control of diabetes and hypertension were discussed with the patient. Iron deficiency anemia due to chronic blood loss 08/18/2016 IBS (irritable bowel syndrome) 03/25/2016 Recurrent HSV (herpes simplex virus) 12/11/2015 Diabetes mellitus type 2 wit h neurological manifestations ([facility] V24, [facility] V28) 08/01/2015 Overview (04/23/2024): A1C [...] x1 06/2015 Coronary artery disease invo lving [place] coronary artery of [place] heart without angina pectoris 01/21/2015 Overview (04/23/2024): [...] Gastroparesis 07/17/2012 Overview (04/23/2024): Dr. Stephenson at [address] [place] [address] drive GERD (gastroesophageal reflux disease) 3 Insomnia [...] Encounters Date Type Department Care Team Description 02/24/2025 Telephone Adult Medicine [address] [phone] Kathy Perez MD 02/21/2025 Telephone Adult Medicine [address] [phone] Kathy Perez MD 02/21/2025 Telephone Adult Medicine [address] [phone] Kathy Perez MD 02/11/2025 11:40 AM EDT Anesthesia Event [facility] [address] [place] [address] Rod Gill MD 02/11/2025 11:05 AM EDT - 02/11/2025 11:59 PM EDT Hospital Encounter [facility] [address] [place] [address] Pain Discharge Disposition: Home or Self Care 02/11/2025 9:42 AM EDT - 02/11/2025 11:59 PM EDT Hospital Encounter [facility] [address] [place] [address] Marcus Murcia DO Steele, Matthew G, CRNA Gomes, Sheldon B, MD Radiculopathy, cervical region Discharge Disposition: Home or Self Care 01/24/2025 Telephone Adult Medicine [address] [phone] Kathy Perez MD 01/23/2025 Telephone Adult [address] [phone] Kathy Perez MD 01/23/2025 [place] [facility] [address] [phone] Ana Conte RN 01/20/[address] [phone] Kathy Perez MD 01/20/[address] [phone] Kathy Perez MD 01/06/2025 11:20 AM EDT Lab Draw [address] Recurrent UTI (urinary tract infection); Chronic kidney disease, stage 3a ([facility] V24, [facility] V28); Renal osteodystrophy; Type 2 diabetes mellitus with diabetic chronic kidney disease ([facility] V24, [facility] V28) 01/06/2025 10:30 AM EDT Office Visit [address] [phone] Kathy Perez MD Hospital discharge follow-up (Primary Dx); Recurrent UTI (urinary tract infection); Type 2 diabetes mellitus without complication, without long-term current use of insulin ([facility] V24, [facility] V28); 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 Telephone Urogynecology [address] [phone] Eve Juan MD 12/31/2024 Telephone Urogynecology [address] [place] [phone] Rachael Huerta MA 12/31/2024 Telephone Adult Medicine [address] [phone] Quinten Acosta LPN 12/30/2024 Telephone Adult Medicine [address] [phone] Kathy Perez MD 12/23/2024 Telephone Urogynecology [address] [place] [address] Jossie Agudelo [place] 12/18/2024 11:30 AM EDT Office Visit Urogynecolog[address] [phone] Eve Juan MD Dysuria (Primary Dx); OAB (overactive bladder) 11/28/2024 Telephone Adult [address] [phone] Kathy Perez MD 11/26/2024 Telephone Urogynecology [address] [phone] Eve Juan MD from Last 3 Months [...] PROCEDURE:TUBAL LIGATION OTHER SURGICAL HISTORY 2007 PROCEDURE: CT CORRECTION HAMMERTOE; COMMENT: FOOT SURGERY Left PROCEDURE: HISTORICAL FOOT SURGERY; COMMENT: 18 y/o bunionectomy UPPER GASTROINTESTINAL ENDOSCOPY 03/22/2012 PROCEDURE: CT UPPER GI ENDOSCOPY PERFORMED; COMMENT: Normal study UPPER GASTROINTESTINAL ENDOSCOPY 11/27/2015 PROCEDURE: CT UPPER GI ENDOSCOPY PERFORMED; COMMENT: Gastritis and polyp. Normal Esophagus and duodenum. UPPER GASTROINTESTINAL ENDOSCOPY 2012 PROCEDURE: CT UPPER GI ENDOSCOPY PERFORMED; COMMENT: FOR GERD BLADDER SUSPENSION 05/29/2018 PROCEDURE: HISTORICAL BLADDER SUSPENSION CYSTOSCOPY 03/18/2019 PROCEDURE: HISTORICAL CYSTOSCOPY; COMMENT: Normal COLONOSCOPY 06/2005 PROCEDURE: HISTORICAL COLONOSCOPY; COMMENT: tubular adenoma COLONOSCOPY 06/2010 PROCEDURE: HISTORICAL COLONOSCOPY; COMMENT: negative COLONOSCOPY 12/16/2015 PROCEDURE: HISTORICAL COLONOSCOPY; COMMENT: tubular adenoma CARDIAC CATHETERIZATION 09/26/2014 PROCEDURE: HISTORICAL CARDIAC CATH; COMMENT: RCA stent [facility] UPPER GASTROINTESTINAL ENDOSCOPY 08/18/2004 PROCEDURE: CT UPPER GI ENDOSCOPY PERFORMED FOOT SURGERY 12/2013 Left PROCEDURE: HISTORICAL FOOT SURGERY; COMMENT: for second toe arthroplasty SHOULDER SURGERY Left PROCEDURE: HISTORICAL SHOULDER SURGERY; COMMENT: Arthroscopy with Dr. Berg KNEE SURGERY Left PROCEDURE: HISTORICAL KNEE SURGERY; COMMENT: Arthroscopy Medical History Medical History Date Comments Hypertension DX:Hypertension COPD (chronic obstructive pu lmonary disease) (CMS/HCC V24, CMS/HCC V28) DX:COPD (chronic o bstructive pulmonary disease) (HCC) Heart failure (CMS/HCC V24, CMS/[facility] V28) DX:Heart failure (HCC) Diabetes mellitus (CMS/[facility] V 24, CMS/[facility] V28) DX:Diabetes mellitus (HCC) Asthma 07/17/2012 DX:Asthma [...] DX:Diabetes mellitus type 2 with neurological manifestations ([facility]); COMMENT: A1C 6.5 09/28 transfer [...] for your loved ones. For example, children's institution attendant or elderly care for an older adult? [...] Care Team (Late st Contact Info) Description 03/06/2025 1:30 PM EDT Office Visit Adult Medicine [facility] [address] [place] [address] Kathy Perez MD [address] [place] [address] Health Maintenance Due Date Last Done Comments Zoster Vaccines (1 of 2) 10[birth year]08/1964 Osteoporosis Screening (Bone Density Screening) 05/28/2022 Depression Screening 06/19/2024 03/26/2024 Diabetes: Annual Retina Eye Exam 11/27/2024 11/28/2023 Diabetes: Annual Foot Exam 12/03/2024 12/04/2023 COVID-19 Vaccine ( season) 2025 05/02/2023, 05/24/2022, 04/28/2021, Additional history exists Influenza Vaccine (#1) 2025 , 02/28/2023, 03/28/2022, [...] chronic kidney disease (CMS/HCC V24, CMS/HCC V28) PROTEIN AND CREATININE WITH RATIO, URINE Routine 01/06/2025 11:29 AM EDT Chronic kidney disease, stage 3a (CMS/HCC V24, CMS/HCC V28) Renal osteodystrophy Type 2 diabetes mellitus with diabetic chronic kidney disease (CMS/HCC V24, CMS/[facility] V28) URINALYSIS WITH REFLEX MICROSCOPIC [...] type 2 with neurological manifestations (CMS/HCC V24, CMS/[facility] V28) LIPID PANEL WITH REFLEX TO DIRECT LDL Routine 08/26/2024 11:03 AM EDT Coronary artery disease involving [place] coronary artery of [place] heart without angina pectoris Hyperlipidemia, unspecified hyperlipidemia type DEPRESSION SCREENING Routine 03/26/2024 FALLS RISK ASSESSMENT Routine 03/26/2024 DIABETES FOOT EXAM Routine 12/04/2023 DIABETES EYE EXAM Routine 11/28/2023 from Last 3 Months or Most Recently Relevant to Health Maintenance Results * POCT Glucose, blood (02/11/2025 9:52 AM EDT) [facility] Glucose POCT 94 70 - 100 mg/dL 02/11/2025 9:53 AM EDT [facility] Blood Capillary blood specimen / Unknown 02/11/2025 9:52 AM EDT 02/11/2025 9:54 AM EDT us Rod Gill MD LAB POINT OF CARE TE ST DOCKED DEVICE UNSOLICITED RESULTS Final Result [facility] [address] [place] [address], [place] [phone] * (ABNORMAL) Urinalysis with reflex microscopic and culture (01/06/2025 11:29 AM EDT) [facility] Specific [place] Urine 1.016 1.003 - 1.030 LAB URINALYSIS - AUTOMATED METHOD 01/06/2025 3:24 PM EDT [facility] pH, Urine 6.0 5.0 - 8.0 pH LAB URINALYSIS - AUTOMATED METHOD 01/06/2025 3:24 PM EDT [facility] Leukocytes, Urine Large(A) Negative LAB URINALYSIS - AUTOMATED METHOD 01/06/2025 3:24 PM EDT [facility] Nitrite, Urine Negative Negative LAB URINALYSIS - AUTOMATED METHOD 01/06/2025 3:24 PM [facility] Protein, Urine 30(A) <=Trace mg/dL LAB URINALYSIS - AUTOMATED METHOD 01/06/2025 3:24 PM [facility] Glucose, Urine Negative Negative mg/dL LAB URINALYSIS - AUTOMATED METHOD 01/06/2025 3:24 PM [facility] Ketones, Urine Trace(A) Negative mg/dL LAB URINALYSIS - AUTOMATED METHOD 01/06/2025 3:24 PM [facility] Urobilinogen, Urine 1.0 0.2 - 1.0 mg/dL LAB URINALYSIS - AUTOMATED METHOD 01/06/2025 3:24 PM [facility] Bilirubin, Urine Negative Negative LAB URINALYSIS - AUTOMATED METHOD 01/06/2025 3:24 PM [facility] Blood, Urine Trace(A) Negative LAB URINALYSIS - AUTOMATED METHOD 01/06/2025 3:24 PM [facility] RBC, Urine 2.5 0 - 4 /HPF LAB URINALYSIS - AUTOMATED METHOD 01/06/2025 3:24 PM [facility] WBC, Urine 184.2(H) 0 - 4 /HPF LAB URINALYSIS - AUTOMATED METHOD 01/06/2025 3:24 PM [facility] Squamous Epithelial, Urine 7 0 - 60 /LPF LAB URINALYSIS - AUTOMATED METHOD 01/06/2025 3:24 PM [facility] Bacteria, Urine Negative Negative /HPF LAB URINALYSIS - AUTOMATED METHOD 01/06/2025 3:24 PM [facility] Hyaline Casts, Urine 0.4 0 - 3 /LPF LAB URINALYSIS - AUTOMATED METHOD 01/06/2025 3:24 PM [facility] Urine Urine specimen obtained by clean catch procedure / Unknown Non-blood Collection / Unknown 01/06/2025 11:29 AM EDT 01/06/2025 11:29 AM EDT Kathy Perez MD LAB URINE ORDERABL ES Final Result Performing Organization Address [facility]/ZIP Co de Phone Number [facility] [address] [place] [address], [place] [phone] * [place] urine culture tube (01/06/2025 11:29 AM EDT) Pathologist [facility] Extra Tube Hold for add-ons. 01/06/2025 4:01 PM EDT [facility] Comment:Auto resulted. Urine Urine specimen obtained by clean catch procedure / Unknown Non-blood Collection / Unknown 01/06/2025 11:29 AM EDT 01/06/2025 11:29 AM EDT Kathy Perez MD LAB URINE ORDERABL ES Final Result Performing Organization Address [facility] de Phone Number [facility] [address] [place] [address], [place] [phone] * (ABNORMAL) CBC auto differential (01/06/2025 11:29 AM EDT) [facility] WBC 9.1 4.8 - 10.8 K/mcL LAB HEMETOLOGY METHOD 01/06/2025 4:06 PM EDT [facility] RBC 3.70(L) 3.80 - 4.80 M/mcL LAB HEMETOLOGY METHOD 01/06/2025 4:06 PM EDT [facility] Hemoglobin 11.0(L) 11.5 - 16.0 g/dL LAB HEMETOLOGY METHOD 01/06/2025 4:06 PM EDT [facility] Hematocrit 35.0 35.0 - 47.0 % LAB HEMETOLOGY METHOD 01/06/2025 4:06 PM EDT [facility] MCV 94.3 79.0 - 98.0 FL LAB HEMETOLOGY METHOD 01/06[facility]2025 [facility] MCH 29.6 27.0 - 32.0 pcg LAB HEMETOLOGY METHOD 01/06/2025 4:06 PM [facility] MCHC 31.4(L) 32.0 - 37.0 g/dL LAB HEMETOLOGY METHOD 01/06/2025 4:06 PM [facility] RDW 16.1(H) 11.0 - 15.0 % LAB HEMETOLOGY METHOD 01/06/2025 4:06 PM [facility] Platelets 339 130 - 400 K/mcL LAB HEMETOLOGY METHOD 01/06/2025 4:06 PM [facility] MPV 11.0 7.0 - 11.0 FL LAB HEMETOLOGY METHOD 01/06/2025 4:06 PM [facility] NRBC 0.2 <1.0 % LAB HEMETOLOGY METHOD 01/06/2025 4:06 PM [facility] NRBC Absolute 0.02 <0.10 K/mcL LAB HEMETOLOGY METHOD 01/06/2025 4:06 PM [facility] Neutrophils Relative 56.5 % LAB HEMETOLOGY METHOD 01/06/2025 4:06 PM [facility] Lymphocytes Relative 29.6 % LAB HEMETOLOGY METHOD 01/06/2025 4:06 PM [facility] Monocytes Relative 11.1 % LAB HEMETOLOGY METHOD 01/06/2025 4:06 PM [facility] Eosinophils Relative 1.7 % LAB HEMETOLOGY METHOD 01/06/2025 4:06 PM [facility] Basophils Relative 0.3 % LAB HEMETOLOGY METHOD 01/06/2025 4:06 PM [facility] Immature Granulocytes Relative 0.8 % LAB HEMETOLOGY METHOD 01/06/2025 4:06 PM EDT [facility] Neutrophils Absolute 5.12 1.50 - 7.00 K/[facility] LAB HEMETOLOGY METHOD 01/06/2025 4:06 PM EDT [facility] Lymphocytes Absolute 2.68 1.00 - 5.00 K/[facility] LAB HEMETOLOGY METHOD 01/06/2025 4:06 PM EDT [facility] Monocytes Absolute 1.01(H) 0.20 - 1.00 K/[facility] LAB HEMETOLOGY METHOD 01/06/2025 4:06 PM EDT [facility] Eosinophils Absolute 0.15 0.00 - 0.50 K/[facility] LAB HEMETOLOGY METHOD 01/06/2025 4:06 PM EDT [facility] Basophils Absolute 0.03 0.00 - 0.20 K/[facility] LAB HEMETOLOGY METHOD 01/06/2025 4:06 PM EDT [facility] Immature Granulocytes Absolute 0.07(H) 0.00 - 0.03 K/mcL LAB HEMETOLOGY METHOD 01/06/2025 4:06 PM EDT [facility] Blood Venous blood specimen / Unknown Venipuncture / Unknown 01/06/2025 11:29 AM EDT 01/06/2025 11:29 AM EDT us Kathy Perez MD LAB BLOOD ORDERABL ES Final Result [facility] [address] [place] [address], * (ABNORMAL) Protein and creatinine with ratio, urine (01/06/2025 11:29 AM EDT) Protein, Urine 30 mg/dL LAB CHEMISTRY METHOD 01/06/2025 4:55 PM EDT [facility] Prot/Creat, Ur 0.31(H) <=0.20 mg/mg creat LAB CHEMISTRY METHOD 01/06/2025 4:55 PM EDT [facility] Creatinine, Urine 96.0 mg/dL LAB CHEMISTRY METHOD 01/06/2025 4:55 PM EDT [facility] Urine Urine specimen obtained by clean catch procedure / Unknown Non-blood Collection / Unknown 01/06/2025 11:29 AM EDT 01/06/2025 11:29 AM EDT us Everton Riddle MD LAB URINE ORDERABLES Final Re sult Performing Organization Address City/[facility]/ZIP Co de Phone Number [facility] [address] [place] [address], [place] [phone] * (ABNORMAL) Microalbumin creatinine urine ratio (01/06/2025 11:29 AM EDT) Creatinine, Urine 96.0 mg/dL LAB CHEMISTRY METHOD 01/06/2025 5:02 PM EDT [facility] Microalb, Ur 87.3(H) 0.0 - 29.0 mg/L LAB CHEMISTRY METHOD 01/06/2025 5:02 PM EDT [facility] Microalb/Crea t Ratio 91(H) <30 mg/g creat LAB CHEMISTRY METHOD 01/06/2025 5:02 PM EDT [facility] Urine Urine specimen obtained by clean catch procedure / Unknown Non-blood Collection / Unknown 01/06/2025 11:29 AM EDT 01/06/2025 11:29 AM EDT us Everton Riddle MD LAB URINE ORDERABLES Final Re sult Performing Organization Address [facility]/ZIP Co de Phone Number [facility] [address] [place] [address], [place] [phone] * Culture urine (01/06/2025 11:29 AM EDT) Only the most recent of3 resultswithin the time period is included. Pathologist [facility] Culture, Urine No growth 01/07/2025 10:14 AM EDT [facility] Urine Urine specimen obtained by clean catch procedure / Unknown Non-blood Collection / Unknown 01/06/2025 11:29 AM EDT 01/06/2025 3:24 PM EDT us Kathy Perez MD LAB MICROBIOLOGY - GENERAL ORDERABLES Final Result [facility] [address] [place] [address], [place] [phone] * (ABNORMAL) Renal function panel (01/06/2025 11:29 AM EDT) [facility] Sodium 141 133 - 145 mmol/L LAB CHEMISTRY METHOD 01/06/2025 4:52 PM [facility] Potassium 4.4 3.5 - 5.5 mmol/L LAB CHEMISTRY METHOD 01/06/2025 4:52 PM [facility] Chloride 106 96 - 110 mmol/L LAB CHEMISTRY METHOD 01/06/2025 4:52 PM [facility] CO2 30 21 - 32 mmol/L LAB CHEMISTRY METHOD 01/06/2025 4:52 PM [facility] Anion Gap 5 3 - 11 LAB CHEMISTRY METHOD 01/06/2025 4:52 PM [facility] Glucose 99 70 - 100 mg/dL LAB CHEMISTRY METHOD 01/06/2025 4:52 PM [facility] BUN 13 5 - 25 mg/dL LAB CHEMISTRY METHOD 01/06/2025 4:52 PM [facility] Creatinine 0.98 0.50 - 1.10 mg/dL LAB CHEMISTRY METHOD 01/06/2025 4:52 PM [facility] eGFR 58(L) >=60 mL/min/1. 73m2 LAB CHEMISTRY METHOD 01/06/2025 4:52 PM EDT [facility] Comment:Calculation based on the Chronic Kidney Disease Epidemiology Collaboration (CKD-EPI) equation refit without adjustment for race. BUN/Creatinine Ratio 13.3 LAB CHEMISTRY METHOD 01/06/2025 4:52 PM EDT [facility] Albumin 3.4 3.2 - 5.0 g/dL LAB CHEMISTRY METHOD 01/06/2025 4:52 PM EDT [facility] Calcium 9.3 8.5 - 10.5 mg/dL LAB CHEMISTRY METHOD 01/06/2025 4:52 PM EDT [facility] Phosphorus 4.0 2.5 - 4.5 mg/dL LAB CHEMISTRY METHOD 01/06/2025 4:52 PM EDT [facility] Blood Venous blood specimen / Unknown Venipuncture / Unknown 01/06/2025 11:29 AM EDT 01/06/2025 11:29 AM EDT Everton Riddle MD LAB BLOOD ORDERABLES Final Re sult [facility] [address] [place] [address], * Lipid panel with reflex to direct LDL (08/26/2024 11:03 AM EDT) Cholesterol 141 0 - 200 mg/dL LAB CHEMISTRY METHOD 08/26/2024 2:15 PM EDT [facility] Triglycerides 117 0 - 150 mg/dL LAB CHEMISTRY METHOD 08/26/2024 2:15 PM EDT [facility] HDL 55 >=40 mg/dL LAB CHEMISTRY METHOD 08/26/2024 2:15 PM EDT [facility] LDL Calculated 63 0 - 100 mg/dL LAB CHEMISTRY METHOD 08/26/2024 2:15 PM EDT [facility] VLDL Cholesterol Gus 23.4 mg/dL LAB CHEMISTRY METHOD 08/26/2024 2:15 PM EDT [facility] Non HDL Chol. (LDL+VLDL) 86 <145 mg/dL LAB CHEMISTRY METHOD 08/26/2024 2:15 PM EDT [facility] Chol/HDL Ratio 2.6 0.0 - 4.4 LAB CHEMISTRY METHOD 08/26/2024 2:15 PM EDT [facility] Blood Venous blood specimen / Unknown Venipuncture / Unknown 08/26/2024 11:03 AM EDT 08/26/2024 11:03 AM EDT Elisa Romero NP LAB BLOOD ORDERABLES Final Result Performing Organization Address City/[facility]/ZIP Co de Phone Number [facility] [address] [place] [address], [place] [phone] * Hemoglobin A1c (08/26/2024 11:03 AM EDT) Hemoglobin A1C 6.4 <6.5 % LAB CHEMISTRY METHOD 08/26/2024 1:50 PM EDT [facility] Mean Bld Glu Estim. 137 mg/dL LAB CHEMISTRY METHOD 08/26/2024 1:50 PM EDT [facility] Blood Venous blood specimen / Unknown Venipuncture / Unknown 08/26/2024 11:03 AM EDT 08/26/2024 11:03 AM EDT Kathy Perez MD LAB BLOOD ORDERABL ES Final Result [facility] [address] [place] [address], [place] [phone] * Hm Falls Risk Assessment (03/26/2024) Falls Risk Assessment Abstracted us Historical Provider HEALTH MAINTENANCE Final Result * Depression Screening (03/26/2024) Pathologist [facility] Depression Screening Abstracted Historical Provider HEALTH MAINTENANCE Final Result * Diabetes Foot Exam (12/04/2023) Pathologist [facility] Diabetes: Annual Foot Exam Abstracted Historical Provider HEALTH MAINTENANCE Final Result * Diabetes Eye Exam (11/28/2023) Pathologist [facility] Diabetes: Annual Retina Eye Exam Abstracted Comment:External Completion of test per patient (Patient reports normal results) Historical Provider HEALTH MAINTENANCE Final Result from Last 3 Months or Most Recently Relevant to Health Maintenance Insurance [facility] MEDICARE Member Subscriber Plan / Payer (Ef fective 2012-Present) Name:James Shea Relation to Subscriber:Self Name:Shea Ramirez Payer ID:[id number] Group ID:[id number] Type:Not on file Address: [place] [address] [id number] Care Teams Transfer Machine Operator Relationship Specialty Start Date End Date Kathy Perez MD [address] [place] [address] PCP - General Internal Medicine 07/22/24
--- OUTSIDE RECORDS SUMMARY | 2025-02-24 18:56 | XMS_ITS | Patient Health Record ---
Author Organization [facility] Address [address] [place] [address] Care Team Providers Care Agricultural Inspector Name Role Phone Narciso MITTAL, Yoim Primary Care Provider Deion Melendrez Unavailable [phone] Reason For Referral No Information Medications Medication [...] OF [place] [address] [place] [address] [phone] CARLOS ADHIKARI Self - patient is the insured MEDICAID OF [facility] [address] [place] [address] [phone] CARLOS ADHIKARI Self - patient is the insured
--- OUTSIDE RECORDS SUMMARY | 2025-02-24 18:56 | XMS_ITS | Encounter Summary ---
Author Organization [facility] Address [address] [place] [address] Care Team Providers Care Engineering Design Manager Name Role Phone Kathy Perez MD Primary Care Prov ider Reason for Visit * Reason Onset Date Comments Hospitalization/ER 02/21/2025 Encounter Details Date Type Department Care Team (Late st Contact Info) Description 02/21/2025 Telephone Adult Medicine [facility] [address] [place] [address] Kathy Perez MD [address] [place], [place] Social History Tobacco Use Types Packs/Day Years [...] care for your loved ones. For example, childcare attendant or elderly care for an older [...] as of this encounter Progress Notes * Sabino Sanchez RN - 02/21/2025 12:28 PM EDT Called pt given soonest hosp fu with pcp for 03/06 * Shanae Lucas - 02/21/2025 12:19 PM EDT Hospital/ER follow up appointment needed Hospital patient was treated at: [facility] Was this only an ER visit or was the patient admitted to the hospital? Admitted to the hospital/kept overnight Date of visit if ER visit only: 02/15/2025 If patient was admitted what was the date of discharge? 02/20/2025 Reason/diagnosis for visit or stay: uti When was the patient told to follow up? 1 week Was visit or stay related to an injury? If yes, what was the date of injury (DOI)? No If yes, was the injury due to: Not 3rd constitution party related documented in this encounter Plan of Treatment Upcoming Encounters Date Type Department Care Team (Late st Contact Info) Description 03/06/2025 1:30 PM EDT Office Visit Adult Medicine [address] [phone] Kathy Perez MD [address] [place] [address] documented as of this encounter Visit Diagnoses Not on filedocumented in this encounter Care Teams Engineering Design Manager Relationship Specialty Start Date End Date Kathy Perez MD [address] [place] [address] PCP - General Internal Medicine 07/22/24 documented as of this encounter
--- OUTSIDE RECORDS SUMMARY | 2025-02-24 18:56 | XMS_ITS | Clinical Summary ---
Author Organization [facility] Address [address] [place] [address] Care Team Providers Care Cardroom Drawing Runner Name Role Phone Pito Thompson MD Primary Care Provider [phone] Allergies No known active allergies Medications aspirin enteric coated (ECOTRIN LOW STRENGTH) 81 MG EC tabletIndication s:Coronary artery disease involving knik heart, unspecified vessel or lesion type, unspecified [...] - 1-dose 75+ series) 10/08/2019 Influenza Vaccine 01/17/2025 COVID-19 Vaccine (1 - 2023-2 5 season) 2025 Hepatitis B Vaccines Aged Out No long er eligible based on patient's age to complete this topic Insurance [facility] MEDICARE OUT OF NETWORK Advance Directives * Full Code (Latest Code Status on File) Date Activated Date Inactivated Comments 07/24/2021 9:24 PM Care Teams Cardroom Drawing Runner Relationship Specialty Start Date End Date Pito Thompson MD [address] [place] [address] PCP - General 07/25/21
--- OUTSIDE RECORDS SUMMARY | 2025-02-24 18:56 | XMS_ITS | Clinical Summary ---
Author Organization [facility] Address [address] [place] [address] Care Team Providers Care Shank Maker Name Role Phone Kathy Christopher MD Primary [...] Tdap) 08/01/2022 08/01/2012 COVID-19 Vaccine ( season) 2025 04/28/2021, 09/09/2020 Influenza Vaccine (#1) 2025 3, 03/28/2022, 03/22/2020, Additional history exists Pneumococcal Vaccine Completed 03/30/2016, 04/28/2014, 03/05/2013, Additional history exists Hepatitis B Vaccines Aged Out No long er eligible based on patient's age to complete this topic RSV Ped < 20 months Aged Out No longe r eligible based on patient's age to complete this topic Care Teams Shank Maker Relationship Specialty Start Date End Date Kathy Christopher MD [address] [place] [address] PCP - General Internal Medicine 09/14/23
--- OUTSIDE RECORDS SUMMARY | 2025-02-24 18:56 | XMS_ITS | Encounter Summary ---
Author Organization [facility] Address [address] [place] [address] Care Team Providers Care Fire Equipment Inspector Helper Name Role Phone Kathy Perez MD Primary Care Prov ider Encounter Details Date Type Department Care Team ([facility] st Contact Info) Description 01/23/2025 Telephone Adult Medicine [address] [phone] Ana Conte RN Social History Tobacco Use [...] care for your loved ones. For example, childhood teacher or elderly care for an older adult? [...] 1:30 PM EDT Office Visit Adult Medicine [address] [phone] Kathy Perez MD [address] [place] [address] documented as of this encounter Visit Diagnoses Not on filedocumented in this encounter Care Teams Fire Equipment Inspector Helper Relationship Specialty Start Date End Date Kathy Perez MD [address] [place] [address] PCP - General Internal Medicine 07/22/24 documented as of this encounter
--- OUTSIDE RECORDS SUMMARY | 2025-02-24 18:56 | XMS_ITS | Encounter Summary ---
Author Organization [facility] Address [address] [place] [address] Care Team Providers Care Vertical Roll Operator Name Role Phone Kathy Perez MD Primary Care Prov ider Reason for Visit * Reason Onset Date Comments Fitting for DME 02/21/2025 Encounter Details Date Type Department Care Team (Late st Contact Info) Description 02/21/2025 Telephone Adult Medicine [facility] [address] [place] [address] Kathy Perez MD [address] [place], [place] Social History Tobacco Use Types Packs/Day [...] care for your loved ones. For example, early childhood special educator or elderly care for an older adult? [...] as of this encounter Progress Notes * JESSICA Davis - 02/24/2025 2:33 PM EDT Please forward to DME staff. We can sign off as long as hospital record reflects that she needs this. * Bren Tim RN - 02/24/2025 2:22 PM EDT Spoke with the pt Started yesterday with LEGER is in the back of her head. Does not effect her vision, some nausea no vomiting. Drinking lots of water. She is speaking in complete sentences no distress noted. Stomach pain is on the top in the middle She is avoiding spicy and fried food but is mostly after eating Drinking dexilant to help coat the stomach, does help but only takes once a day Came out of the hospital and needs DME for the wipes because she is using the briefs Hosp f/u appt on 03/06 at 1:15 * Quinten Acosta LPN - 02/24/2025 2:00 PM EDT Please triage * Lizzie Pringle - 02/21/2025 4:31 PM EDT [facility]NA CALL Which [facility] office is calling? [facility] / Full name of caller: Roxana The caller is A nurse Is the caller at the patients home?: no Reason for call: Patient is still having stomach and head pain. She has been taking aspirin and tylonol but its not helping. Wants to know if there is anything else we can give her. Does caller need an urgent call back? no Was CONTACT Telephone # obtained above?: yes Fax #: documented in this encounter Plan of Treatment Upcoming Encounters Date Type Department Care Team (Late st Contact Info) Description 03/06/2025 1:30 PM EDT Office Visit [address] [phone] Kathy Perez MD [address] [place] [address] documented as of this encounter Visit Diagnoses Not on filedocumented in this encounter Care Teams Vertical Roll Operator Relationship Specialty Start Date End Date Kathy Perez MD [address] [place] [address] PCP - General Internal Medicine 07/22/24 documented as of this encounter
--- OUTSIDE RECORDS SUMMARY | 2025-02-24 18:56 | XMS_ITS | Clinical Summary ---
Author Organization [facility] Address [address] [address] Phone Care Team Providers Care Battery Service Technician Name Role Phone Kathy Christopher MD Primary [...] Gastroparesis 07/17/2012 Overview (09/19/2024): Dr. 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) 04/15/2025 1:45 PM EDT Office Visit [facility] [address] [phone] Everton Riddle MD [address] [phone] 07/29/2025 1:00 PM EST Office Visit [facility] [address] [phone] Lizzie Magana ARNP [address] [phone] Health Maintenance Due Date Last Done Comments Diabetes: Ophthalmology Exam 09/10/2024 06/27/2014 Diabetes: Pedal Pulse Checked 09/10/2024 Diabetes: Sensory Foot Exam 09/10/2024 Diabetes: Visual Foot Exam 09/10/2024 Diabetes: Hemoglobin A1C 11/26/2024 08/26/2024, 02/11/2021 Influenza Vaccine (#1) 2025 4, 02/28/2023, 03/28/2022, [...] MD LAB URINE ORDERABLES Final Re sult [facility] [address] [place] [address] * (ABNORMAL) Urine Albumin / Creatinine Ratio [...] LAB URINE ORDERABLES Final Re sult [facility] [address] [place] [address] * (ABNORMAL) Renal Function Panel (01/06/2025 11:29 AM EDT) Sodium 141 133 - 145 mmol/L [facility] [...] LAB Albumin 3.4 3.2 - 5.0 g/dL [facility] Calcium 9.3 8.5 - 10.5 mg/dL [facility] Phosphorus 4.0 2.5 - 4.5 mg/dL [facility] Blood specimen (specimen) Venous blood / Unknown 01/06/2025 11:29 AM EDT 01/06/2025 3:12 PM EDT us Everton Riddle MD LAB BLOOD ORDERABLES Final Re sult [facility] [address] [place] [address] from Last [address] Months Insurance [address] [place] [address] [facility] ([id number]) [address] [place] [address] Care Teams Battery Service Technician Relationship Specialty Start Date End Date Kathy Christopher MD [address] [place] [address] PCP - General 09/10/24
--- OUTSIDE RECORDS SUMMARY | 2025-02-24 18:56 | XMS_ITS | Encounter Summary ---
Author Organization [facility] Address [address] [place] [address] Care Team Providers Care Jointer Machine Name Role Phone Kathy Perez MD Primary Care Prov ider Reason for Visit * Reason Onset Date Comments triage fall weakness IV leaking 02/24/2025 Please see message from [facility]NA Encounter Details Date Type Department Care Team (Late st Contact Info) Description 02/24/2025 Telephone Adult Medicine [facility] [address] [place] [address] Kathy Perez MD [address] [place], [place] Social History Tobacco Use Types Packs/Day [...] for your loved ones. For example, child support specialist or elderly care for an older [...] as of this encounter Progress Notes * Annie Castro RN - 02/24/2025 5:05 PM EDT Pt was seen by [facility]NA fell onto the floor , was down for 40 min, iv is leaking and bleeding, pt is very weak , C/O dysuria . Pt was sent by ambulance to the ed * Quinten Acosta LPN - 02/24/2025 4:35 PM EDT Please triage See [facility] message * Negro Reis - 02/24/2025 4:21 PM EDT VNA CALL Which [facility]NA office is calling? [facility] / Full name of caller: Leela The caller is A nurse Is the caller at the patients home?: no Reason for call: Would like a call back from the nurse , patient had a fall today , poatient is having some leaking around the iv sight , weakness and urination Does caller need an urgent call back? no Was CONTACT Telephone # obtained above?: yes Fax #: Phone # [phone] documented in this encounter Plan of Treatment Upcoming Encounters Date Type Department Care Team (Late st Contact Info) Description 03/06/2025 1:30 PM EDT Office Visit Adult Medicine [address] [phone] Kathy Perez MD [address] [place] [address] documented as of this encounter Visit Diagnoses Not on filedocumented in this encounter Care Teams Jointer Machine Relationship Specialty Start Date End Date Kathy Perez MD [address] [place] [address] PCP - General Internal Medicine 07/22/24 documented as of this encounter
[2025-02-24 20:08] VITALS: BP 110/47; PULSE 91; RESP 16; TEMP 36.3; O2SAT 95
--- NOTE | 2025-02-24 21:10 | ED_ITS ---
HPI - Weakness General Chief complaint: Weakness Stated complaint: Weakness, recent fall Time Seen by Provider: 02/24/25 17:35 History of Present Illness HPI Narrative: Patient is an 79-year-old female complaining of dizziness starting yesterday. Had a history of headaches. Has a history of UTI. Patient has a history of ESBL. Currently getting IV antibiotics at home. Patient was discharged from the hospital on the . No chest pain or diaphoresis felt lightheaded then slid down. Did not hit her head. No coughing or congestion upper respiratory symptoms. Patient is from home. Related Data Home Medications ?Medication ?Instructions ?Recorded ?Confirmed cetirizine 10 mg tablet 10 mg PO DAILY 03/21/2002/10 nitroglycerin 0.4 mg sublingual 0.4 mg sublingual ONCE PRN Chest 03/21/20 02/24/25 tablet Pain albuterol sulfate 2.5 mg/3 mL 2.5 mg inhalation Q4H NC N wheezing 04/28/20 02/24/25 (0.083 %) solution for nebulization melatonin 10 mg tablet 10 mg PO BEDTIME PRN Sleep 0 08/19/21 02/24/25 aspirin 81 mg tablet,delayed 81 mg PO DAILY 09/02/21 0 02/24/25 release isosorbide mononitrate 30 mg 30 mg PO DAILY 09/02/21 0 02/24/25 tablet,extended release 24 hr Oxygen Home Use 09/16/22 10/08/24 nebulizers 09/16/22 10/08/24 metformin 500 mg tablet,extended 500 mg PO DAILY 10/2902/24/25 release 24 hr metoprolol tartrate 50 mg tablet 50 mg PO BID 06/17/24 02/24/25 atorvastatin 80 mg tablet 80 mg PO DAILY 06/20/2402/10 fluticasone fur. 200 mcg-umeclid 1 ea inhalation DAILY 12/27/24 02/24/25 62.5 mcg-vilant 25 mcg inhalat.powder (Trelegy Ellipta) furosemide 20 mg tablet 20 mg PO DAILY 12/27/2402/10 diclofenac sodium 1 % topical gel 1 ea topical DAILY P RN Pain (Scale 02/15/25 02/24/25 Score 1-3) polyethylene glycol 3350 17 17 g PO DAILY 02/15/2502/10 gram/dose oral powder (Miralax) Previous Rx's ?Medication ?Instructions ?Recorded cholecalciferol (vitamin D3) 50 50 mcg PO DAILY 30 day s #30 caps 04/08/20 mcg (2,000 unit) capsule fluticasone propionate 50 2 spray intranasal DAILY 30 days 08/11/22 mcg/actuation nasal #15.8 mL spray,suspension lidocaine 5 % topical patch 1 patch topical DAILY #15 ea 04/11/24 albuterol sulfate 90 mcg/actuation 2 puff PO Q4H PRN f or wheezing #1 05/14/24 aerosol inhaler ea dexlansoprazole 60 mg 60 mg PO DAILY #90 caps 06/20 02/10 capsule,biphase delayed release sennosides 8.6 mg tablet (senna) 17.2 mg (2 x 8.6 mg) PO DAILY PRN 09/11/24 constipation 90 days #180 tabs ertapenem 1 gram solution for 1 g IV DAILY 02/20/25 injection doxycycline monohydrate 100 mg 100 mg PO BID 10 days # 20 caps 02/24/25 capsule Allergies Allergy/AdvReac Type Severity Reaction Status Date / Time amoxicillin (Augmentin) Allergy Mild Rash Verified 02/24/25 17:18 clavulanic acid (From Allergy Mild RASH Verified 02/24/25 17:18 Augmentin) Review of Systems 2 Review of Systems: Positive generalized malaise. [facility] Past Medical History Attestation statement: The following information was validated with the patient. Medical History CKD (chronic kidney disease) stage 3, GFR 30-59 ml/min Obesity (BMI 30.0-34.9) Chronic respiratory failure Asthma-COPD overlap syndrome Incontinence in female History of adenomatous polyp of colon Pneumonitis Bronchopneumonia Hypogammaglobulinemia Chronic rhinitis Dizziness Headache Hyperlipidemia HTN (hypertension) Diabetes COPD (chronic obstructive pulmonary disease) Surgical History S/P right coronary artery (RCA) stent placement H/O colonoscopy History of foot surgery History of toe surgery History of bunionectomy Family History Family History Mother No problems noted. Father No problems noted. Social History 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 services: Yes ([employer]) Alcohol intake: never Comment: refusing the alarms Patient Tobacco Use Status: Former Tobacco user Tobacco use type: Cigarette Cigarettes Per Day: 0.5 Years Smoked: 40 Smoked in Last 30 Days: No Second Hand Smoke Exposure: No Use of substances other than those prescribed or required for medical reasons: No Advance Directives: Yes Advance Directives on File: Yes Advance Directives Date on File: 10/03/23 Do you have a plan to hurt others: No Plan service: No Current occupational status: retired Sexual orientation: Straight/Heterosexual Gender identity: Female Physical Exam 2 Exam: Exam: Appearance: Alert. Oriented X3. No acute distress. Eyes: Pupils equal, round and reactive to light. ENT: Pharynx normal. Neck: Normal inspection. Neck supple. No lymph nodes noted. No crepitus CVS: Normal heart rate and rhythm. Pulses normal. Normal S1 and S2 Respiratory: No respiratory distress. Breath sounds normal. No Wheezing. No rales Abdomen: Soft and nontender. No rigidity. No distention. good BS x4 Skin: Skin warm and dry. Normal skin color. Normal skin turgor. Extremities: No lower extremity edema. Neurovascular intact to all extremities. No Lacerations. No Rash Neuro: Oriented X 3. No motor deficit. No sensory deficit. Moving all extermities. No slurred speech Vital Signs: Vital Signs: Last Vital Signs Temp 98.1 F 02/24/25 22:08 Pulse 87 02/24/25 22:08 Resp 16 02/24/25 22:08 BP 92/57 L 02/24/25 22:08 Pulse Ox 94 02/24/25 22:08 O2 Del Method Room Air 02/24/25 22:08 BMI result Body Mass Index 30.6 Medications Administered Generic Name Dose Route Start Last Admin Trade Name Freq PRN Reason Stop Dose Admin Enoxaparin Sodium 40 mg 02/24/25 21:30 02/24/25 22:49 Enoxaparin Sodium 40 Mg/0.4 Ml Syringe SUBCUT 40 mg Q24H AMANDA Administration Sodium Chloride 3 ml 02/25/25 00:00 02/25/25 00:12 0.9 % Sodium Chloride Flush 3 Ml Syringe IVFLUSH 3 ml QSHIFT [facility] Administration Medical Decision Making Medical Decision Making [facility] Narrative: Patient's electrolytes essentially normal. No distress. Blood pressure in the emergency department is 110/59 with a pulse of 90. Temperature is 98.9 degrees. O2 sats 99% on room air. Patient is sent in for further evaluation. Patient had a near syncopal episode. Velva lightheaded and weak. On ambulation felt very tired. Has a history ESBL. Patient's troponin was actually normal. My interpretation patient's EKG showed a sinus rhythm heart rate is 90 NC QRS QTC normal no acute ST segment elevation noted. Visiting nurse also complained that the PICC line is not working. Patient also had a near syncopal episode. Case consulted with the hospitalist team. Will admit observation overnight. Differential Diagnosis Differential Diagnoses: The differential diagnosis associated with the presentation includes Weakness, UTI, dehydration PICC line malfunction ACS irregular heartbeat Admission/Observation Consideration of admission/observation: Escalation of care including admission/observation considered Consult Healthcare Provider Management of the patient was discussed with: Hospitalist Lab Data [facility] Lab Attestation statement: I reviewed the patient's lab results. 02/24/25 17:38 02/24/25 17:38 Labs: Lab Results 02/24/25 Range/Units 17:38 WBC 8.9 (4.8-10.8) X10*3/uL RBC 3.38 L (4.20-5.50) X10*6/uL Hgb 10.0 L (12.0-16.0) g/dl Hct 29.7 L (37.0-47.0) % MCV 87.9 (80.0-98.0) fL MCH 29.6 (27.0-33.0) pg MCHC 33.7 (31.0-35.0) g/dl RDW 15.9 (11.0-16.0) % Plt Count 305 D (160-400) X10*3/uL MPV 9.7 (9.4-12.3) fL Immature Gran % (Auto) 0.8 H (0.0-0.4) % Neut % (Auto) 64.7 (45-73) % Lymph % (Auto) 21.7 (20-40) % [place] % (Auto) 10.3 (2-11) % Eos % (Auto) 2.4 (0-4) % Baso % (Auto) 0.1 (0-2) % Lymph # (Auto) 1.9 (1.2-4.9) X10*3/uL [place] # (Auto) 0.9 (0.1-1.2) X10*3/uL Eos # (Auto) 0.2 (0.0-0.4) X10*3/uL Baso # (Auto) 0.0 (0.0-0.2) X10*3/uL Abs Immat Gran (auto) 0.07 H (0.00-0.03) X10*3/uL Absolute Neuts (auto) 5.8 (2.0-8.3) x10*3/uL Absolute Nucleated RBC 0.000 (0.0-0.012) X10*3/uL Nucleated RBC % (auto) 0.0 (0.0-0.2) /100WBC PT 12.1 (10.9-12.4) SEC INR 1.1 (0.9-1.1) Sodium 142 (135-145) mmol/L Potassium 4.0 (3.3-5.1) mmol/L Chloride 107 (96-108) mmol/L Carbon Dioxide 27 (22-29) mmol/L Anion Gap 12 (12-20) BUN 12 (9-16) mg/dL Creatinine 0.94 (0.5-1.4) mg/dL Estim Creat Clear Calc 49.0 Estimated GFR 57 Random Glucose 87 (60-115) mg/dL Calcium 8.7 (8.4-10.2) mg/dL Magnesium 1.9 (1.6-2.6) mg/dL Total Bilirubin 0.5 (0.0-1.0) mg/dL AST 21 (5-31) U/L ALT 13 (0-31) U/L Alkaline Phosphatase 77 (39-117) U/L Troponin I High Sens 4.7 (<3.5-17.0) ng/L Total Protein 6.3 L (6.5-8.0) g/dL Albumin 3.7 (3.5-5.0) g/dL Independent Interpretation I performed an independent interpretation of an: EKG (Sinus heart rate is 80 NC QRS QTC normal no acute ST segment elevation noted) and Plain X-Ray (No focal infiltrate) Radiology Impression Discussion of test interpretation with radiology: I have reviewed the radiologist's reading. External Record Review External record reviewed: Inpatient record Chronic Conditions History of ESBL Social Determinants Patient?s care significantly limited by Social Determinants of Health including: Problems related to primary support group Discharge Plan Discharge Clinical Impression: Dizziness, Near syncope Patient Disposition: Admitted As Inpatient
--- NOTE | 2025-02-24 21:34 | PM.IMHP ---
[facility] Medical History CKD (chronic kidney disease) stage 3, GFR 30-59 ml/min Obesity (BMI 30.0-34.9) Chronic respiratory failure Asthma-COPD overlap syndrome Incontinence in female History of adenomatous polyp of colon Pneumonitis Bronchopneumonia Hypogammaglobulinemia Chronic rhinitis Dizziness Headache Hyperlipidemia HTN (hypertension) Diabetes COPD (chronic obstructive pulmonary disease) Family History Mother No problems noted. Father No problems noted. Surgical History S/P right coronary artery (RCA) stent placement H/O colonoscopy History of foot surgery History of toe surgery History of bunionectomy 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 services: Yes ([employer]) Alcohol intake: never Comment: refusing the alarms Patient Tobacco Use Status: Former Tobacco user Tobacco use type: Cigarette Cigarettes Per Day: 0.5 Years Smoked: 40 Smoked in Last 30 Days: No Second Hand Smoke Exposure: No Use of substances other than those prescribed or required for medical reasons: No Advance Directives: Yes Advance Directives on File: Yes Advance Directives Date on File: 10/03/23 Do you have a plan to hurt others: No Plan service: No Current occupational status: retired Sexual orientation: Straight/Heterosexual Gender identity: Female Meds Allergies Allergy/AdvReac Type Severity Reaction Status Date / Time amoxicillin (Augmentin) Allergy Mild Rash Verified 02/24/25 17:18 clavulanic acid (From Allergy Mild RASH Verified 02/24/25 17:18 Augmentin) Home Medications ?Medication ?Instructions ?Recorded ?Confirmed ?Last Taken ?Type cetirizine 10 mg tablet 10 mg PO DAILY 03/21/20 02/15/25 12/27/24 History nitroglycerin 0.4 mg sublingual 0.4 mg sublingual ONCE PRN Chest 03/21/20 02/15/25 06/18/24 History tablet Pain albuterol sulfate 2.5 mg/3 mL 2.5 mg inhalation Q4H PRN wheezing 04/28/20 02/15/25 06/18/24 History (0.083 %) solution for nebulization melatonin 10 mg tablet 10 mg PO BEDTIME PRN Sleep 08/19/21 02/15/25 06/18/24 History aspirin 81 mg tablet,delayed 81 mg PO DAILY 09/02/21 02/15/25 12/27/24 History release isosorbide mononitrate 30 mg 30 mg PO DAILY 09/02/21 02/15/25 12/27/24 History tablet,extended release 24 hr Oxygen Home Use 09/16/22 10/08/24 Unknown History nebulizers 09/16/22 10/08/24 Unknown History metformin 500 mg tablet,extended 500 mg PO DAILY 10/30/23 02/15/25 06/18/24 History release 24 hr metoprolol tartrate 50 mg tablet 50 mg PO BID 06/17/24 02/15/25 12/27/24 History atorvastatin 80 mg tablet 80 mg PO DAILY 06/20/24 02/15/25 12/27/24 History fluticasone fur. 200 mcg-umeclid 1 ea inhalation DAILY 12/27/24 02/15/25 12/27/24 History 62.5 mcg-vilant 25 mcg inhalat.powder (Trelegy Ellipta) furosemide 20 mg tablet 20 mg PO DAILY 12/27/24 02/15/25 12/27/24 History diclofenac sodium 1 % topical gel 1 ea topical DAILY PRN Pain (Scale 02/15/25 02/15/25 Unknown History Score 1-3) polyethylene glycol 3350 17 17 g PO DAILY 02/15/25 02/15/25 Unknown History gram/dose oral powder (Miralax) Physical Exam Vital Signs and Narrative: Vital Signs: Last Vital Signs Temp 97.4 F 02/24/25 20:08 Pulse 91 02/24/25 20:08 Resp 16 02/24/25 20:08 BP 110/47 L 02/24/25 20:08 Pulse Ox 95 02/24/25 20:08 O2 Del Method Room Air 02/24/25 20:08 BMI result Body Mass Index 30.6 Results Labs 02/24/25 17:38 02/24/25 17:38 Labs: Laboratory Results - last 24 hr 02/24/25 17:38 MCV 87.9 MCH 29.6 MCHC 33.7 RDW 15.9 Plt Count 305 D MPV 9.7 Immature Gran % (Auto) 0.8 H Neut % (Auto) 64.7 Lymph % (Auto) 21.7 [place] % (Auto) 10.3 Eos % (Auto) 2.4 Baso % (Auto) 0.1 Lymph # (Auto) 1.9 [place] # (Auto) 0.9 Eos # (Auto) 0.2 Baso # (Auto) 0.0 Abs Immat Gran (auto) 0.07 H Absolute Neuts (auto) 5.8 Absolute Nucleated RBC 0.000 Nucleated RBC % (auto) 0.0 PT 12.1 INR 1.1 Anion Gap 12 Estim Creat Clear Calc 49.0 Estimated GFR 57 Random Glucose 87 Calcium 8.7 Magnesium 1.9 Total Bilirubin 0.5 AST 21 ALT 13 Alkaline Phosphatase 77 Total Protein 6.3 L Albumin 3.7 Quality VTE VTE Risk Level:: Medical - moderate - high VTE Device Contraindication: Treatment Not Indicated VTE Drug Contraindication: N/A - Med Ordered
--- NOTE | 2025-02-24 21:43 | PHA.MEDREC ---
Addendum entered by Roberto Patrick RPh 02/24/25 21:47: Reviewed by [facility] Original Note: Pharmacy Consult ? Medication Reconciliation Pharmacy has completed the medication reconciliation. Patient states she was just discharged and there hsve not been any changes to her medications. Utilized discharge packet from 02/20/25 to confirm med list.
[2025-02-24 22:08] VITALS: BP 92/57; PULSE 87; RESP 16; TEMP 36.7; O2SAT 94
--- NOTE | 2025-02-24 22:27 | PC.NURSE ---
Addendum entered by Ghazala Summers RN 02/24/25 22:33: Bruising also noted to insertion site. Original Note: PICC line to right upper arm noted. Pt reports pain while flushing PICC line, some leaking noted. Provider Bety Hagen made aware.
--- NOTE | 2025-02-24 22:53 | PM.IMHP ---
History of Present Illness Date of Service: 02/24/25 Attending physician on admission: Sincere Mckinnon Chief Complaint: fall pt is an 79 yo f with a pmhx significant for chronic hypoxic respiratory failure due to COPD on 2 L home O2, diabetes, GERD, IBS, hypertension, obesity, recent ESBL UTI December 2024 and again 02/2025, who presented to the ED today due to an unwitnessed mechanical fall. The patient reports she has been feeling dizzy and weak for the past day. her fall was not due to chest pain, SOB or dizziness, she states she slipped. no head strike or LOC. She is currently being treated for an ESBL UTI with ertapenem via PICC line, which the patient reports that her PICC line has not been working and is leaking fluid and blood since yesterday. currently she is feeling well. no chest pain, SOB, dyspnea, abd pain, nausea, vomiting or urinary sx. Review of Systems Constitutional: Constitutional: Denies body ache(s), Denies chills, Denies fatigue, Denies fever(s) and Denies headache(s) Eyes: Eyes: Denies change in vision ENT: Denies headache(s), Denies nasal congestion and Denies sore throat Cardiovascular: Cardiovascular: Denies chest pain, Denies rapid heart rate, Denies leg edema, Reports lightheadedness and Denies dyspnea Respiratory: Respiratory: Denies chest congestion, Denies cough, Denies dyspnea and Denies wheezing Gastrointestinal: Gastrointestinal: Denies abdominal pain, Denies nausea and Denies vomiting Genitourinary: Genitourinary: Denies difficulty voiding and Denies urinary urgency Musculoskeletal: Musculoskeletal: Denies myalgias Integumentary/Breasts: Skin/Breast: Denies rash Neurologic: Denies confusion and Denies headache(s) Psychiatric: Psychiatric: Denies confusion Endocrine: Endocrine: Denies fatigue Hematologic/Lymphatic: Hematologic/Lymphatic: Denies easy bleeding and Denies easy bruising Allergic/Immunologic: Allergic/Immunologic: Denies wheezing [facility] Medical History CKD (chronic kidney disease) stage 3, GFR 30-59 ml/min Obesity (BMI 30.0-34.9) Chronic respiratory failure Asthma-COPD overlap syndrome Incontinence in female History of adenomatous polyp of colon Pneumonitis Bronchopneumonia Hypogammaglobulinemia Chronic rhinitis Dizziness Headache Hyperlipidemia HTN (hypertension) Diabetes COPD (chronic obstructive pulmonary disease) Family History Mother No problems noted. Father No problems noted. Surgical History S/P right coronary artery (RCA) stent placement H/O colonoscopy History of foot surgery History of toe surgery History of bunionectomy 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 services: Yes ([employer]) Alcohol intake: never Comment: refusing the alarms Patient Tobacco Use Status: Former Tobacco user Tobacco use type: Cigarette Cigarettes Per Day: 0.5 Years Smoked: 40 Smoked in Last 30 Days: No Second Hand Smoke Exposure: No Use of substances other than those prescribed or required for medical reasons: No Advance Directives: Yes Advance Directives on File: Yes Advance Directives Date on File: 10/03/23 Do you have a plan to hurt others: No Plan service: No Current occupational status: retired Sexual orientation: Straight/Heterosexual Gender identity: Female Meds Allergies Allergy/AdvReac Type Severity Reaction Status Date / Time amoxicillin (Augmentin) Allergy Mild Rash Verified 02/24/25 17:18 clavulanic acid (From Allergy Mild RASH Verified 02/24/25 17:18 Augmentin) Active Medications: Current Medications Acetaminophen (Acetaminophen 325 Mg Tablet) 650 mg PO Q6H PRN PRN Reason: Pain, Mild 1-3,fever,headache Calcium Carbonate (Calcium Carbonate 750 Mg Tab.Chew) 750 mg PO Q4H PRN PRN Reason: Heartburn Enoxaparin Sodium (Enoxaparin Sodium 40 Mg/0.4 Ml Syringe) 40 mg SUBCUT Q24H [facility] Last Admin: 02/24/25 22:49 Dose: 40 mg Magnesium Hydroxide (Milk Of Magnesia 30 Ml Oral.Susp) 30 ml PO DAILY PRN PRN Reason: Constipation Melatonin (Melatonin 3 Mg Tablet) 6 mg PO BEDTIME PRN PRN Reason: Insomnia Sodium Chloride (0.9 % Sodium Chloride Flush 3 Ml Syringe) 3 ml IVFLUSH QSHIFT [facility] Home Medications ?Medication ?Instructions ?Recorded ?Confirmed ?Last Taken ?Type cetirizine 10 mg tablet 10 mg PO DAILY 03/21/20 02/24/25 02/23/25 History nitroglycerin 0.4 mg sublingual 0.4 mg sublingual ONCE PRN Chest 03/21/20 02/24/25 06/18/24 History tablet Pain albuterol sulfate 2.5 mg/3 mL 2.5 mg inhalation Q4H PRN wheezing 04/28/20 02/24/25 06/18/24 History (0.083 %) solution for nebulization melatonin 10 mg tablet 10 mg PO BEDTIME PRN Sleep 08/19/21 02/24/25 06/18/24 History aspirin 81 mg tablet,delayed 81 mg PO DAILY 09/02/21 02/24/25 02/23/25 History release isosorbide mononitrate 30 mg 30 mg PO DAILY 09/02/21 02/24/25 02/23/25 History tablet,extended release 24 hr Oxygen Home Use 09/16/22 10/08/24 Unknown History nebulizers 09/16/22 10/08/24 Unknown History metformin 500 mg tablet,extended 500 mg PO DAILY 10/30/23 02/24/25 02/23/25 History release 24 hr metoprolol tartrate 50 mg tablet 50 mg PO BID 06/17/24 02/24/25 02/23/25 History atorvastatin 80 mg tablet 80 mg PO DAILY 06/20/24 02/24/25 02/23/25 History fluticasone fur. 200 mcg-umeclid 1 ea inhalation DAILY 12/27/24 02/24/25 02/23/25 History 62.5 mcg-vilant 25 mcg inhalat.powder (Trelegy Ellipta) furosemide 20 mg tablet 20 mg PO DAILY 12/27/24 02/24/25 02/23/25 History diclofenac sodium 1 % topical gel 1 ea topical DAILY PRN Pain (Scale 02/15/25 02/24/25 Unknown History Score 1-3) polyethylene glycol 3350 17 17 g PO DAILY 02/15/25 02/24/25 02/23/25 History gram/dose oral powder (Miralax) Physical Exam Vital Signs and Narrative: Vital Signs: Last Vital Signs Temp 98.1 F 02/24/25 22:08 Pulse 87 02/24/25 22:08 Resp 16 02/24/25 22:08 BP 92/57 L 02/24/25 22:08 Pulse Ox 94 02/24/25 22:08 O2 Del Method Room Air 02/24/25 22:08 BMI result Body Mass Index 30.6 General: AOx3, no acute distress Resp: CTA bilaterally, no wheezing or crackles CVS: S1, S2, RRR GI: +BS, NT, no distention Skin: Warm, dry Neuro: Cranial nerves II-XII grossly intact bilaterally. Motor grossly intact bilaterally Extremities: No pitting edema Psych: Appropriate affect Const: General: No confusion Orientation/consciousness: No confusion Neuro: General: No confusion Results Labs 02/25/25 04:36 02/25/25 04:36 Labs: Laboratory Results - last 24 hr 02/24/25 17:38 MCV 87.9 MCH 29.6 MCHC 33.7 RDW 15.9 Plt Count 305 D MPV 9.7 Immature Gran % (Auto) 0.8 H Neut % (Auto) 64.7 Lymph % (Auto) 21.7 [place] % (Auto) 10.3 Eos % (Auto) 2.4 Baso % (Auto) 0.1 Lymph # (Auto) 1.9 [place] # (Auto) 0.9 Eos # (Auto) 0.2 Baso # (Auto) 0.0 Abs Immat Gran (auto) 0.07 H Absolute Neuts (auto) 5.8 Absolute Nucleated RBC 0.000 Nucleated RBC % (auto) 0.0 PT 12.1 INR 1.1 Anion Gap 12 Estim Creat Clear Calc 49.0 Estimated GFR 57 Random Glucose 87 Calcium 8.7 Magnesium 1.9 Total Bilirubin 0.5 AST 21 ALT 13 Alkaline Phosphatase 77 Total Protein 6.3 L Albumin 3.7 Assessment and Plan (1) Fall: Status: Acute (2) Dizziness: Status: Acute (3) Displacement of peripherally inserted central catheter (PICC): Status: Acute Plan pt is an 79 yo f with a pmhx significant for chronic hypoxic respiratory failure due to COPD on 2 L home O2, diabetes, GERD, IBS, hypertension, obesity, recent ESBL UTI December 2024 and again 02/2025, who presented to the ED today due to an unwitnessed mechanical fall. dizziness/fall -- mechanical? - no leukocytosis, a febrile, vitals stable, no sepsis - currently being treated for ESBL UTI, on eratpenum via PICC line, malfunctioning - check orthostatics - head CT/CTA head/neck negative - CXR with pulmonary vascular congestion/fluid overload. pt not having SOB, cough or dyspnea - echo - hold lasix due to hypotension - avoid IVF due to pulmonary congestion on CXR - monitor on tele - admit for observation displaced PICC line - will need replacement tomorrow morning by IR Recurrent ESBL UTIs - continue ertapenem - repeat UA/cx pending Chronic hypoxic respiratory failure due to COPD - at baseline - continue home meds CKD3 - cr at baseline - monitor BMP Diabetes - diabetic diet - sliding scale HTN - BP low, hold meds for now Class 1 obesity - BMI 30.6 - weight loss encouraged med rec pending full code VTE prophy: lovenox Patient with fall, complicated by displaced PICC line, requiring admission for observation and PICC line replacement tomorrow. Quality Stroke Does the patient have a stroke diagnosis?: No VTE Prior VTE?: No VTE Risk Level:: Medical - moderate - high VTE Device Contraindication: Treatment Not Indicated VTE Drug Contraindication: N/A - Med Ordered
[2025-02-25] VITALS (11 sets, daily range): BP systolic 113–133; BP diastolic 40–81; PULSE 89–108; RESP 15–26; TEMP 36.7–37.1; O2SAT 94–96
[2025-02-25 00:02] LABS: B Type Natriuretic Peptide 74 pg/mL (<100)
[2025-02-25] MEDS: 0.9 % Sodium Chloride Flush 3 ML SYRINGE IVFLUSH ×2 (00:12→09:12)
[2025-02-25 04:48] LABS: MANUAL DIFF FLAG NO
[2025-02-25 04:51] LABS: Hematocrit 26.4 % (37.0-47.0); Hemoglobin 9.1 g/dl (12.0-16.0); Imm Gran Abs Auto 0.07 X10*3/uL (0.00-0.03); Imm Gran Pct Auto 0.9 % (0.0-0.4); Lymphocytes Absolute Auto 2.3 X10*3/uL (1.2-4.9); Mean Corpuscular HGB Conc 34.5 g/dl (31.0-35.0); Mean Corpuscular Hemoglobin 30.0 pg (27.0-33.0); Mean Corpuscular Volume 87.1 fL (80.0-98.0); NRBC Abs Auto 0.000 X10*3/uL (0.0-0.012); NRBC Pct Auto 0.0 /100WBC (0.0-0.2); Platelet Count 272 X10*3/uL (160-400); Red Blood Count 3.03 X10*6/uL (4.20-5.50); White Blood Count 7.9 X10*3/uL (4.8-10.8)
[2025-02-25 05:15] LABS: Alanine Aminotransferase 9 U/L (0-31); Albumin Level 3.3 g/dL (3.5-5.0); Alkaline Phosphatase 66 U/L (39-117); Anion Gap 13 (12-20); Aspartate Amino Transferase 19 U/L (5-31); Blood Urea Nitrogen 11 mg/dL (9-16); Calcium 8.3 mg/dL (8.4-10.2); Carbon Dioxide 24 mmol/L (22-29); Chloride 109 mmol/L (96-108); Creatinine Clr Calc Pharmacy 50.7; Estimated Glomerular Filt Rate 59; Potassium 3.7 mmol/L (3.3-5.1); Sodium 142 mmol/L (135-145); Total Protein 5.7 g/dL (6.5-8.0)
[2025-02-25 05:19] LABS: Appearance Urine Clear; Glucose Urine UA Negative (Negative); PH 6.0 (5.0-9.0); Specific Gravity - Urine 1.015 (1.005-1.025); UMIC TRIGGER UACC YES
[2025-02-25 05:24] LABS: UACC Culture Trigger YES
[2025-02-25 07:24] LABS: Glucose, Whole Blood 99 mg/dL (60-115)
--- NOTE | 2025-02-25 07:32 | PC.NURSE ---
Addendum entered by Li Cullen RN 02/25/25 07:33: pt is an 79 yo f with a pmhx significant for chronic hypoxic respiratory failure due to COPD on 2 L home O2, diabetes, GERD, IBS, hypertension, obesity, recent ESBL UTI December 2024 and again 02/2025, who presented to the ED today due to an unwitnessed mechanical fall. Head CT/CTA head/neck negative. CXR with pulmonary vascular congestion/fluid overload. pt not having SOB, cough or dyspnea. Displaced PICC line. Will need replacement tomorrow morning by IR. Recurrent ESBL UTIs, continue ertapenem. Patient alert and oriented. equipment monitor phototypesetting maintained and stach noted. Lungs essentially clear. Respirations even and non-labored. Abdomen large, soft, non-tender with positive bowel sounds. Purewick patent and intact, draining tari urine. Positive pedal pulses with LE edema noted. Original Note: Medical History CKD (chronic kidney disease) stage 3, GFR 30-59 ml/min Obesity (BMI 30.0-34.9) Chronic respiratory failure Asthma-COPD overlap syndrome Incontinence in female History of adenomatous polyp of colon Pneumonitis Bronchopneumonia Hypogammaglobulinemia Chronic rhinitis Dizziness Headache Hyperlipidemia HTN (hypertension) Diabetes COPD (chronic obstructive pulmonary disease)
[2025-02-25] MEDS: Fluticasone/Umeclidinium/Vilanterol 200/62.5/25 BLST.W.DEV 1 PUFF INHALE (08:25)
--- NOTE | 2025-02-25 09:30 | PC.NURSE ---
Patient sent to IR and PICC line removed.
--- NOTE | 2025-02-25 09:45 | HO.REMOVAL ---
Removal of PICC/Midline Removal of PICC/Midline: Removal of PICC/Midline: 1. Date:02/25/25 2. Reason removed: leaking 3. Inserted length: 10cm 4. Removed length: 10cm 5. A dressing was placed over the site upon removal. No edema or bleeding at the site. using US this RN visualized catheter tip 10cm from axilla. per Vida, midline removed as there is leaking around catheter.
--- NOTE | 2025-02-25 11:50 | PC.NURSE ---
Sent to IR for a replacement PICC line
--- NOTE | 2025-02-25 12:42 | HO.MIDLINE ---
Midline Insertion MIDLINE INSERTION Diagnosis: UTI Indication: abt Pertinent Labs: reviewed Technique: Using sterile technique including cap and mask, glove and drape, the left arm was prepped and draped in the usual sterile fashion of full barrier technique with CHG. Using ultrasound guidance, left brachial vein access was obtained . 5fr double lumen PICC catheter trimmed to 12cm was positioned. The procedure was performed in rm [id number]. Ultrasound was used to document vein patency and for needle entry. A formal ultrasound picture was recorded. [employer] has released the line for use and it is currently dressed with a StatLock, Tegaderm, and CHG disc. Verification has been performed for blood return and line patency. Arm Circumference: 32cm Equipment: [employer] POWER PICC solo catheter trimmed to 12 cm Catheter Type: 5FR double lumen catheter Lot #: [id number]
[2025-02-25 14:46] LABS: Glucose, Whole Blood 98 mg/dL (60-115)
--- NOTE | 2025-02-25 15:19 | MHC.CM.PN ---
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
--- NOTE | 2025-02-25 15:24 | MHC.CM.PN ---
PT DCD HOME SELF CARE
--- NOTE | 2025-02-25 15:53 | P.DS_ITS ---
DS: Providers Provider Date of Service: 02/25/25 Date of admission: 02/24/25 21:21 Date of discharge: 02/25/25 Primary care physician: Unknown Physician DS: Diagnosis Discharge Diagnosis (1) Fall: Status: Acute (2) Dizziness: Status: Acute (3) Displacement of peripherally inserted central catheter (PICC): Status: Acute DS: Summary Hospital Course Hospital Course: From admission HPI: Date of Service: 02/24/25 Attending physician on admission: Sincere Mckinnon Chief Complaint: fall pt is an 79 yo f with a pmhx significant for chronic hypoxic respiratory failure due to COPD on 2 L home O2, diabetes, GERD, IBS, hypertension, obesity, recent ESBL UTI December 2024 and again 02/2025, who presented to the ED today due to an unwitnessed mechanical fall. The patient reports she has been feeling dizzy and weak for the past day. her fall was not due to chest pain, SOB or dizziness, she states she slipped. no head strike or LOC. She is currently being treated for an ESBL UTI with ertapenem via PICC line, which the patient reports that her PICC line has not been working and is leaking fluid and blood since yesterday. currently she is feeling well. no chest pain, SOB, dyspnea, abd pain, nausea, vomiting or urinary sx. Hospital course The pt was admitted to the hospital under observation for malfunctioning midline that was replaced by IR on 02/25. Pt is set to complete her course of ertapenem for ESBL UTI on 02/28. For mechanical fall at home, CTA of head and C-spine negative for acute fracture or subluxation. Attempted to get orthostatics, but pt declined to stand as she thought she had become incontinent of urine. 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 Pt denied any significant lightheadedness or dizziness during PT evaluation, and expressed desire to go home. Pt will be discharged home with working midline to complete course of ertapenem. No other medication changes. Pt should continue all of her other home medications. Time Attestation Discharge Coordination Time (in mins): 35 Quality: Safe Use of Opioids Does Pt have an Active Cancer Diagnosis on the Problem List?: No Quality: Stroke Does the patient have a stroke diagnosis?: No Physical Exam Exam: Exam: General: AOx3, no acute distress. Resting comfortably in bed Resp: CTA bilaterally CVS: S1, S2, RRR GI: +BS, NT, no distention Skin: Warm, dry Neuro: Cranial nerves II-XII grossly intact bilaterally. Motor grossly intact bilaterally Extremities: No edema Psych: Appropriate affect Vital Signs: Vital Signs: Last Vital Signs Temp 98.6 F 02/25/25 05:07 Pulse 101 H 02/25/25 14:22 Resp 26 H 02/25/25 14:22 BP 127/49 L 02/25/25 14:22 Pulse Ox 94 02/25/25 14:22 O2 Del Method Room Air 02/25/25 14:22 BMI result Body Mass Index 30.6 DS: Data Data Completed and Pending Completed studies during hospitalization [Text1]: Procedures Insertion of Infusion Device into Right Basilic Vein, Percutaneous Approach (12/27/24) Labs on day of discharge: Laboratory Results - last 24 hr 02/24/25 02/24/25 02/25/25 17:38 23:37 04:36 WBC 8.9 7.9 RBC 3.38 L 3.03 L Hgb 10.0 L 9.1 L Hct 29.7 L 26.4 L MCV 87.9 87.1 MCH 29.6 30.0 MCHC 33.7 34.5 RDW 15.9 15.9 Plt Count 305 D 272 MPV 9.7 9.9 Immature Gran % (Auto) 0.8 H 0.9 H Neut % (Auto) 64.7 55.0 Lymph % (Auto) 21.7 29.2 Guthrie % (Auto) 10.3 12.6 H Eos % (Auto) 2.4 2.2 Baso % (Auto) 0.1 0.1 Lymph # (Auto) 1.9 2.3 Guthrie # (Auto) 0.9 1.0 Eos # (Auto) 0.2 0.2 Baso # (Auto) 0.0 0.0 Abs Immat Gran (auto) 0.07 H 0.07 H Absolute Neuts (auto) 5.8 4.3 Absolute Nucleated RBC 0.000 0.000 Nucleated RBC % (auto) 0.0 0.0 PT 12.1 INR 1.1 Sodium 142 142 Potassium 4.0 3.7 Chloride 107 109 H Carbon Dioxide 27 24 Anion Gap 12 13 BUN 12 11 Creatinine 0.94 0.91 Estim Creat Clear Calc 49.0 50.7 Estimated GFR 57 59 POC Glucose Random Glucose 87 101 Calcium 8.7 8.3 L Magnesium 1.9 Total Bilirubin 0.5 0.6 AST 21 19 ALT 13 9 Alkaline Phosphatase 77 66 Troponin I High Sens 4.7 B-Natriuretic Peptide 74 Total Protein 6.3 L 5.7 L Albumin 3.7 3.3 L Urine Color Urine Appearance Urine pH Ur Specific [place] Urine Protein Urine Glucose (UA) Urine Ketones Urine Blood Urine Nitrite Ur Leukocyte Esterase Urine RBC Urine WBC Ur Squamous Epith Cells Urine Bacteria Hyaline Casts 02/25/25 02/25/25 02/25/25 05:11 07:21 14:41 WBC RBC Hgb Hct MCV MCH MCHC RDW Plt Count MPV Immature Gran % (Auto) Neut % (Auto) Lymph % (Auto) Guthrie % (Auto) Eos % (Auto) Baso % (Auto) Lymph # (Auto) Guthrie # (Auto) Eos # (Auto) Baso # (Auto) Abs Immat Gran (auto) Absolute Neuts (auto) Absolute Nucleated RBC Nucleated RBC % (auto) PT INR Sodium Potassium Chloride Carbon Dioxide Anion Gap BUN Creatinine Estim Creat Clear Calc Estimated GFR POC Glucose 99 98 Random Glucose Calcium Magnesium Total Bilirubin AST ALT Alkaline Phosphatase Troponin I High Sens B-Natriuretic Peptide Total Protein Albumin Urine Color Yellow Urine Appearance Clear Urine pH 6.0 Ur Specific [place] 1.015 Urine Protein 100 (2+) H Urine Glucose (UA) Negative Urine Ketones Trace Urine Blood Moderate (2+) H Urine Nitrite Negative Ur Leukocyte Esterase Moderate (2+) H Urine RBC >20 H Urine WBC 11-20 H Ur Squamous Epith Cells 0-2 Urine Bacteria None Seen Hyaline Casts 0-2 Discharge Plan Discharge Anticipated Discharge Date/Time: 02/25/25 15:37 Patient Disposition: Home Health Service Referrals: Physician,Unknown J [Primary Care Provider, Medical] - 1 Week Discharge Medications: Continued cholecalciferol (vitamin D3) 50 mcg (2,000 unit) capsule 50 mcg PO DAILY 30 Days Qty: 30 3RF dexlansoprazole 60 mg capsule,biphase delayed releas 60 mg PO DAILY Qty: 90 3RF doxycycline monohydrate 100 mg capsule 100 mg PO BID 10 Days Qty: 20 0RF lidocaine 5 % adhesive patch,medicated 1 patch topical DAILY Qty: 15 0RF Rx Instructions: leave on most painful area for up to 12 hrs diclofenac sodium 1 % gel 1 ea topical DAILY PRN (Reason: Pain (Scale Score 1-3)) polyethylene glycol 3350 [Miralax] 17 gram/dose Powder 17 g PO DAILY ertapenem 1 gram recon soln 1 g IV DAILY Rx Instructions: end date is 02/28/25 atorvastatin 80 mg tablet 80 mg PO DAILY furosemide 20 mg tablet 20 mg PO DAILY Trelegy Ellipta 200-62.5-25 mcg blister with device 1 ea INHALATION DAILY albuterol sulfate 2.5 mg /3 mL (0.083 %) solution for nebulization 2.5 mg inhalation Q4H PRN (Reason: wheezing) nitroglycerin 0.4 mg tablet, sublingual 0.4 mg sublingual ONCE PRN (Reason: Chest Pain) cetirizine 10 mg tablet 10 mg PO DAILY aspirin 81 mg tablet,delayed release (DR/EC) 81 mg PO DAILY isosorbide mononitrate 30 mg tablet extended release 24 hr 30 mg PO DAILY fluticasone propionate 50 mcg/actuation spray,suspension 2 spray intranasal DAILY 30 Days Qty: 15.8 11RF melatonin 10 mg tablet 10 mg PO BEDTIME PRN (Reason: Sleep) (DME) Oxygen Home Use Kit See Rx Instructions .Route Rx Instructions: As directed (DME) [place]izers [facility] [place] Instructions .Route Rx Instructions: As directed metoprolol tartrate 50 mg tablet 50 mg PO BID metformin 500 mg tablet extended release 24 hr 500 mg PO DAILY albuterol sulfate 90 mcg/actuation HFA aerosol inhaler 2 puff PO Q4H PRN (Reason: for wheezing) Qty: 1 11RF sennosides [senna] 8.6 mg tablet 17.2 mg PO DAILY PRN (Reason: constipation) 90 Days Qty: 180 1RF Discharge Orders: Discharge Order (Routine); Ordered 02/25/25 Ordered By: Tonya Thomas Activity on Discharge: As tolerated Stand Alone Forms: Patient Portal Discharge page Print Language: Emirati Care Plan Goals: See below Health Concerns: Falls at home Dislodged midline ESBL UTI Plan of Treatment: You were admitted to the hospital for malfunctioning midline line which was replaced by Interventional Radiology. You would also experienced a mechanical fall at home. 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 You will be discharged home with a working midline to complete course of ertapenem 1 g daily on 02/28. You should continue all of your other home medications. Assessment: See discharge summary
== END 2025-02-25 16:30 | disposition home health service (06) ==
LOC: HO.ED 17:40 → HO.EDOVER 22:28
PROVIDERS: Physician Assistant; Physician Assistant Medical; Admitting Provider Hospitalist; Emergency Provider Emergency Medicine Emergency Medical Services; Visit Provider Student in an Organized Health Care Education/Training Program
DX: R42 Dizziness and giddiness (principal); T82.524A Displacement of infusion catheter, initial encounter; W19.XXXA Unspecified fall, initial encounter; R53.1 Weakness; I12.9 Hypertensive chronic kidney disease with stage 1 through stage 4 chronic kidney disease, or unspecified chronic kidney disease; E11.22 Type 2 diabetes mellitus with diabetic chronic kidney disease; N18.31 Chronic kidney disease, stage 3a; E78.5 Hyperlipidemia, unspecified; N39.0 Urinary tract infection, site not specified; E86.0 Dehydration; R07.9 Chest pain, unspecified; J44.9 Chronic obstructive pulmonary disease, unspecified; E66.811 Obesity, class 1; Z68.30 Body mass index [BMI] 30.0-30.9, adult; Z87.891 Personal history of nicotine dependence; Z71.3 Dietary counseling and surveillance
CPT/HCPCS: 36573; 36410; 36415; 70450; 71045; 72125; 80053; 81001; 82947; 83735; 83880; 84484; 85025; 85610; 87086; 93005; 94640; 96361; 96372; 96374; 97162; 99221; 99285; C1751; J1335; J1650

== ENCOUNTER → 2025-02-24 17:03 | Outpatient (BNV) | payer OTHER, SELFPAY | PROVIDERS: Admitting Provider Hospitalist; Emergency Provider Emergency Medicine Emergency Medical Services; Visit Provider Internal Medicine Cardiovascular Disease | DX: R53.1 Weakness (principal) | CPT/HCPCS: 93010 ==

== ENCOUNTER → 2025-02-24 21:15 | Outpatient (BNV) | payer OTHER, SELFPAY | PROVIDERS: Admitting Provider Hospitalist; Emergency Provider Emergency Medicine Emergency Medical Services; Visit Provider Student in an Organized Health Care Education/Training Program | DX: Z04.3 Encounter for examination and observation following other accident (principal); R42 Dizziness and giddiness; J84.9 Interstitial pulmonary disease, unspecified | CPT/HCPCS: 70450; 71045; 72125 ==

== ENCOUNTER → 2025-02-24 21:21 | Outpatient (BNV) | payer OTHER, SELFPAY | PROVIDERS: Admitting Provider Hospitalist; Emergency Provider Emergency Medicine Emergency Medical Services; Visit Provider Student in an Organized Health Care Education/Training Program | DX: R42 Dizziness and giddiness (principal); W19.XXXA Unspecified fall, initial encounter; T82.524A Displacement of infusion catheter, initial encounter | CPT/HCPCS: 99223; 99239 ==

== ENCOUNTER 2025-02-28 13:33 | Outpatient (REF) | payer OTHER, SELFPAY ==
[2025-02-28 13:35] LABS: MANUAL DIFF FLAG NO
[2025-02-28 14:46] LABS: Hematocrit 28.9 % (37.0-47.0); Hemoglobin 9.6 g/dl (12.0-16.0); Imm Gran Abs Auto 0.03 X10*3/uL (0.00-0.03); Imm Gran Pct Auto 0.4 % (0.0-0.4); Lymphocytes Absolute Auto 1.7 X10*3/uL (1.2-4.9); Mean Corpuscular HGB Conc 33.2 g/dl (31.0-35.0); Mean Corpuscular Hemoglobin 29.5 pg (27.0-33.0); Mean Corpuscular Volume 88.9 fL (80.0-98.0); NRBC Abs Auto 0.000 X10*3/uL (0.0-0.012); NRBC Pct Auto 0.0 /100WBC (0.0-0.2); Platelet Count 322 X10*3/uL (160-400); Red Blood Count 3.25 X10*6/uL (4.20-5.50); White Blood Count 6.8 X10*3/uL (4.8-10.8)
[2025-02-28 15:00] LABS: Alanine Aminotransferase 13 U/L (0-31); Albumin Level 3.5 g/dL (3.5-5.0); Alkaline Phosphatase 84 U/L (39-117); Anion Gap 14 (12-20); Aspartate Amino Transferase 25 U/L (5-31); Blood Urea Nitrogen 8 mg/dL (9-16); Calcium 8.7 mg/dL (8.4-10.2); Carbon Dioxide 29 mmol/L (22-29); Chloride 105 mmol/L (96-108); Estimated Glomerular Filt Rate 59; Potassium 4.1 mmol/L (3.3-5.1); Sodium 144 mmol/L (135-145); Total Protein 6.3 g/dL (6.5-8.0)
--- OUTSIDE RECORDS SUMMARY | 2025-02-28 16:24 | XMS_ITS | Encounter Summary ---
Author Organization [facility] Address [address] [place] [address] Care Team Providers Care Agribusiness Professor Name Role Phone Kathy Perez MD Primary Care Prov ider Encounter Details Date Type Department Care Team ([facility] st Contact Info) Description 01/23/2025 Telephone Adult Medicine [address] [phone] Ana Conte RN Social History Tobacco Use [...] your loved ones. For example, early childhood coordinator or elderly care for an older adult? [...] 1:30 PM EDT Office Visit Adult Medicine [address] [phone] Kathy Perez MD [address] [place] [address] documented as of this encounter Visit Diagnoses Not on filedocumented in this encounter Care Teams Agribusiness Professor Relationship Specialty Start Date End Date Kathy Perez MD [address] [place] [address] PCP - General Internal Medicine 07/22/24 documented as of this encounter
--- OUTSIDE RECORDS SUMMARY | 2025-02-28 16:24 | XMS_ITS | Clinical Summary ---
Author Organization [facility] Address [address] [phone] Phone Care Team Providers Care Casting Room Operator Name Role Phone Kathy Christopher MD [...] Gastroparesis 07/17/2012 Overview (09/19/2024): Dr. 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) 04/15/2025 1:45 PM EDT Office Visit [facility] [address] [phone] Everton Riddle MD [address] [phone] 07/29/2025 1:00 PM EST Office Visit [facility] [address] [phone] Lizzie Magana ARNP [address] [phone] Health Maintenance Due Date Last [...] 11:29 AM EDT) Protein, Ur 30 mg/dL [facility] Urine Protein/Creati nine Ratio 0.31(H) <=0.20 mg/mg creat [facility] Creatinine, Urine 96.0 mg/dL [facility] Urine specimen (specimen) Urine specimen obtained by clean catch procedure / Unknown 01/06/2025 11:29 AM EDT 01/06/2025 3:13 PM EDT us Everton Riddle MD LAB URINE ORDERABLES Final Re sult [facility] [address] [place] [address] * (ABNORMAL) Urine Albumin / Creatinine Ratio (01/06/2025 11:29 AM EDT) Creatinine, Urine 96.0 mg/dL [facility] Microalbumin Urine Random 87.3(H) 0.0 - 29.0 mg/L [facility] Microalbumin/Cre atinine Ratio 91(H) <30 mg/g creat [facility] Urine specimen (specimen) Urine specimen obtained by clean catch procedure / Unknown 01/06/2025 11:29 AM EDT 01/06/2025 3:13 PM EDT us Everton Riddle MD LAB URINE ORDERABLES Final Re sult [facility] [address] [place] [address] * (ABNORMAL) Renal Function Panel (01/06/2025 11:29 AM EDT) Sodium 141 133 - 145 mmol/L [facility] Potassium 4.4 3.5 - 5.5 mmol/L [facility] Chloride 106 96 - 110 mmol/L [facility] Bicarbonate (CO2) 30 21 - 32 mmol/L [facility] Anion Gap 5 3 - 11 [facility] Glucose 99 70 - 100 mg/dL [facility] BUN 13 5 - 25 mg/dL [facility] Creatinine Serum 0.98 0.50 - 1.10 mg/dL [facility] eGFR 58(L) >=60 mL/min/1. 73m2 [facility] Comment:Calculation based on the Chronic Kidney Disease Epidemiology Collaboration (CKD-EPI) equation refit without adjustment for race. BUN/Creatinine Ratio 13.3 [facility] Albumin 3.4 3.2 - 5.0 g/dL [facility] Calcium 9.3 8.5 - 10.5 mg/dL [facility] Phosphorus 4.0 2.5 - 4.5 mg/dL [facility] Blood specimen (specimen) Venous blood / Unknown 01/06/2025 11:29 AM EDT 01/06/2025 3:12 PM EDT us Everton Riddle MD LAB BLOOD ORDERABLES Final Re sult [facility] [address] [place] [address] from Last [address] Months Insurance [address] [place] [address] [facility] ([id number]) [address] [place] [address] Care Teams Casting Room Operator Relationship Specialty Start Date End Date Kathy Christopher MD [address] [place] [id number] PCP - General 09/10/24
--- OUTSIDE RECORDS SUMMARY | 2025-02-28 16:24 | XMS_ITS | Clinical Summary ---
Author Organization [facility] Address [address] [place] [address] Phone Care Team Providers Care Burner Machine Operator Name Role Phone Kathy Perez [...] 32.9 in adult 04/23/2024 Mucopurulent chronic bronchitis ([facility] V24, CM S/[facility] V28) 05/24/2023 Palpitations 05/24/2023 Chronic heart failure with p reserved ejection fraction ([facility] V24, [facility] V28) 11/24/2022 Assessment & Plan (06/04/2024 [...] disease, without long-term current use of insulin ([facility] V24, [facility] V28) 11/04/2019 Mammographic microcalcification 01/10/2019 Hearing decreased, bilateral 12/18/2018 COPD (chronic obstructive pu lmonary disease) ([facility] V24, [facility] V28) 12/10/2018 Assessment & Plan (07/30/2024 3:00 PM EST): Recent exacerbation, was evaluated in the emergency. Started on prednisone. Currently stable. Supplemental oxygen dependent 12/10/2018 Obstructive sleep apnea 11/21/2018 Overview (04/23/2024): [facility] Home Sleep Apnea Test: Date 11/18/2018; Wt 192#; BMI 33; HAYLEY 16, AI 1; HI 14; Unclassified apneas 0; Obstructive apneas 10; Central apneas 0; Mixed apneas 0; hypopneas 126; average oxygen saturation 88% (lowest 73% with saturations <88% for 5% or more of study) [facility] Polysomnogram treatment study. Date [...] kidney disease) stage 3, GFR 30-59 ml/min ([facility] V24, [facility] V28) 05/31/2017 Assessment & Plan (07/30/2024 3:00 PM EST): GFR around 50. Stable over the last year. Encouraged to avoid nephrotoxics, good control of diabetes and hypertension were discussed with the patient. Iron deficiency anemia due to chronic blood loss 08/18/2016 IBS (irritable bowel syndrome) 03/25/2016 Recurrent HSV (herpes simplex virus) 12/11/2015 Diabetes mellitus type 2 wit h neurological manifestations ([facility] V24, [facility] V28) 08/01/2015 Overview (04/23/2024): A1C 6.5 [...] x1 06/2015 Coronary artery disease invo lving [place] coronary artery of [place] heart without angina pectoris 01/21/2015 Overview (04/23/2024): [...] Gastroparesis 07/17/2012 Overview (04/23/2024): Dr. Stephenson at [address] [place] [address] drive GERD (gastroesophageal reflux disease) 3 Insomnia [...] Encounters Date Type Department Care Team Description 02/26/2025 Telephone Adult Medicine [address] [phone] Kathy Perez MD 02/24/2025 Telephone Adult Medicine [address] [phone] Kathy Perez MD 02/21/2025 Telephone Adult Medicine [address] [phone] Kathy Perez MD 02/21/2025 Telephone Adult Medicine [address] [phone] Kathy Perez MD 02/11/2025 11:40 AM EDT Anesthesia Event [facility] [address] [place] [phone] Rod Gill MD 02/11/2025 11:05 AM EDT - 02/11/2025 11:59 PM EDT Hospital Encounter [facility] Xray [address] [place] [phone] Pain Discharge Disposition: Home or Self Care 02/11/2025 9:42 AM EDT - 02/11/2025 11:59 PM EDT Hospital Encounter [facility] [address] [place] [phone] Marcus Murcia DO Steele, Matthew G, CRNA Gomes, Sheldon B, MD Radiculopathy, cervical region Discharge Disposition: Home or Self Care 01/24/2025 Telephone Adult [address] [phone] Kathy Perez MD 01/23/2025 [facility] [address] [phone] Kathy Perez MD 01/23/2025 Telephone Adult [address] [phone] Ana Conte RN 01/20/2025 [facility] [address] [phone] Kathy Perez MD 01/20/[address] [phone] Kathy Perez MD 01/06/2025 11:20 AM EDT Lab Draw Station [address] Recurrent UTI (urinary tract infection); Chronic kidney disease, stage 3a ([facility] V24, [facility] V28); Renal osteodystrophy; Type 2 diabetes mellitus with diabetic chronic kidney disease ([facility] V24, [facility] V28) 01/06/2025 10:30 AM EDT Office Visit Adult [address] [phone] Kathy Perez MD Hospital discharge follow-up (Primary Dx); Recurrent UTI (urinary tract infection); Type 2 diabetes mellitus without complication, without long-term current use of insulin ([facility] V24, 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 Telephone Urogynecology [address] [phone] Eve Juan MD 12/31/2024 Telephone Urogynecology [facility] [address] [place] [phone] Rachael Huerta [place] 12/31/2024 Telephone Adult [address] [phone] Quinten Acosta LPN 12/30/2024 Telephone Adult [address] [phone] Kathy Perez MD 12/23/2024 Telephone Urogynecology [facility] [address] [place] [phone] Jossie Agudelo [place] 12/18/2024 11:30 AM EDT Office Visit Urogy[address] [phone] Eve Juan MD Dysuria (Primary Dx); OAB (overactive bladder) 11/28/2024 Telephone Adult [address] [phone] Kathy Perez MD from Last 3 Months Immunizations Name [...] PROCEDURE:TUBAL LIGATION OTHER SURGICAL HISTORY 2007 PROCEDURE: [place] CORRECTION HAMMERTOE; COMMENT: FOOT SURGERY Left PROCEDURE: HISTORICAL FOOT SURGERY; COMMENT: 18 y/o bunionectomy UPPER GASTROINTESTINAL ENDOSCOPY 03/22/2012 PROCEDURE: [place] UPPER GI ENDOSCOPY PERFORMED; COMMENT: Normal study UPPER GASTROINTESTINAL ENDOSCOPY 11/27/2015 PROCEDURE: [place] UPPER GI ENDOSCOPY PERFORMED; COMMENT: Gastritis and polyp. Normal Esophagus and duodenum. UPPER GASTROINTESTINAL ENDOSCOPY 2012 PROCEDURE: [place] UPPER GI ENDOSCOPY PERFORMED; COMMENT: FOR GERD BLADDER SUSPENSION 05/29/2018 PROCEDURE: HISTORICAL BLADDER SUSPENSION CYSTOSCOPY 03/18/2019 PROCEDURE: HISTORICAL CYSTOSCOPY; COMMENT: Normal COLONOSCOPY 06/2005 PROCEDURE: HISTORICAL COLONOSCOPY; COMMENT: tubular adenoma COLONOSCOPY 06/2010 PROCEDURE: HISTORICAL COLONOSCOPY; COMMENT: negative COLONOSCOPY 12/16/2015 PROCEDURE: HISTORICAL COLONOSCOPY; COMMENT: tubular adenoma CARDIAC CATHETERIZATION 09/26/2014 PROCEDURE: HISTORICAL CARDIAC CATH; COMMENT: RCA stent [facility], Dr Hernandez UPPER GASTROINTESTINAL ENDOSCOPY 08/18/2004 PROCEDURE: [place] UPPER GI ENDOSCOPY PERFORMED FOOT SURGERY 12/2013 Left PROCEDURE: HISTORICAL FOOT SURGERY; COMMENT: for second toe arthroplasty SHOULDER SURGERY Left PROCEDURE: HISTORICAL SHOULDER SURGERY; COMMENT: Arthroscopy with Dr. Berg KNEE SURGERY Left PROCEDURE: HISTORICAL KNEE SURGERY; COMMENT: Arthroscopy Medical History Medical History Date Comments Hypertension DX:Hypertension COPD (chronic obstructive pu lmonary disease) (CMS/HCC V24, [facility] V28) DX:COPD (chronic o bstructive pulmonary disease) (HCC) Heart failure (CMS/HCC V24, CMS[facility] V28) DX:Heart failure (HCC) Diabetes mellitus ([facility] V 24, [facility] V28) DX:Diabetes mellitus (HCC) Asthma 07/17/2012 [...] mellitus type 2 with neurological manifestations ([facility] [...] care for your loved ones. For example, infant childcare provider or elderly care for an older adult? [...] 1:30 PM EDT Office Visit Adult Medicine [facility] [address] [place] [address] Kathy Perez MD [address] [place] [address] Health Maintenance Due Date Last Done Comments [...] chronic kidney disease (CMS/HCC V24, CMS/HCC V28) URINALYSIS WITH REFLEX MICROSCOPIC AND CULTURE [...] type 2 with neurological manifestations (CMS/HCC V24, [facility] V28) LIPID PANEL WITH REFLEX TO DIRECT LDL Routine 08/26/2024 11:03 AM EDT Coronary artery disease involving [place] coronary artery of [place] heart without angina pectoris Hyperlipidemia, unspecified hyperlipidemia type DEPRESSION SCREENING Routine 03/26/2024 FALLS RISK ASSESSMENT Routine 03/26/2024 DIABETES FOOT EXAM Routine 12/04/2023 DIABETES EYE EXAM Routine 11/28/2023 from Last 3 Months or Most Recently Relevant to Health Maintenance Results * POCT Glucose, blood (02/11/2025 9:52 AM EDT) [facility] Glucose POCT 94 70 - 100 mg/dL 02/11/2025 9:53 AM EDT [facility] Blood Capillary blood specimen / Unknown 02/11/2025 9:52 AM EDT 02/11/2025 9:54 AM EDT us Rod Gill MD LAB POINT OF CARE TE ST DOCKED DEVICE UNSOLICITED RESULTS Final Result [facility] [address] [place] [address], [place] [phone] * (ABNORMAL) Urinalysis with reflex microscopic and culture (01/06/2025 11:29 AM EDT) [facility] [place] Urine 1.016 1.003 - 1.030 LAB URINALYSIS - AUTOMATED METHOD 01/06/2025 3:24 PM EDT [facility] pH, Urine 6.0 5.0 - 8.0 pH LAB URINALYSIS - AUTOMATED METHOD 01/06/2025 3:24 PM EDT [facility] Leukocytes, Urine Large(A) Negative LAB URINALYSIS - AUTOMATED METHOD 01/06/2025 3:24 PM EDT [facility] Nitrite, Urine Negative Negative LAB URINALYSIS - AUTOMATED METHOD 01/06/2025 3:24 PM [facility] Protein, Urine 30(A) <=Trace mg/dL LAB URINALYSIS - AUTOMATED METHOD 01/06/2025 3:24 PM [facility] Glucose, Urine Negative Negative mg/dL LAB URINALYSIS - AUTOMATED METHOD 01/06/2025 3:24 PM [facility] Ketones, Urine Trace(A) Negative mg/dL LAB URINALYSIS - AUTOMATED METHOD 01/06/2025 3:24 PM [facility] Urobilinogen, Urine 1.0 0.2 - 1.0 mg/dL LAB URINALYSIS - AUTOMATED METHOD 01/06/2025 3:24 PM [facility] Bilirubin, Urine Negative Negative LAB URINALYSIS - AUTOMATED METHOD 01/06/2025 3:24 PM [facility] Blood, Urine Trace(A) Negative LAB URINALYSIS - AUTOMATED METHOD 01/06/2025 3:24 PM [facility] RBC, Urine 2.5 0 - 4 /HPF LAB URINALYSIS - AUTOMATED METHOD 01/06/2025 3:24 PM [facility] WBC, Urine 184.2(H) 0 - 4 /HPF LAB URINALYSIS - AUTOMATED METHOD 01/06/2025 3:24 PM [facility] Squamous Epithelial, Urine 7 0 - 60 /LPF LAB URINALYSIS - AUTOMATED METHOD 01/06/2025 3:24 PM [facility] Bacteria, Urine Negative Negative /HPF LAB URINALYSIS - AUTOMATED METHOD 01/06/2025 3:24 PM [facility] Hyaline Casts, Urine 0.4 0 - 3 /LPF LAB URINALYSIS - AUTOMATED METHOD 01/06/2025 3:24 PM [facility] Urine Urine specimen obtained by clean catch procedure / Unknown Non-blood Collection / Unknown 01/06/2025 11:29 AM EDT 01/06/2025 11:29 AM EDT Kathy Perez MD LAB URINE ORDERABL ES Final Result Performing Organization Address [facility]/ZIP Co de Phone Number [facility] [address] [place] [address], [place] [phone] * [place] urine culture tube (01/06/2025 11:29 [...] ORDERABL ES Final Result Performing Organization Address [facility] Co de Phone Number [facility] [address] [place] [address], [place] [phone] * (ABNORMAL) CBC auto differential (01/06/2025 11:29 AM EDT) [facility] WBC 9.1 4.8 - 10.8 K/mcL LAB HEMETOLOGY METHOD 01/06/2025 4:06 PM EDT [facility] RBC 3.70(L) 3.80 - 4.80 M/mcL LAB HEMETOLOGY METHOD 01/06/2025 4:06 PM EDT [facility] Hemoglobin 11.0(L) 11.5 - 16.0 g/dL LAB HEMETOLOGY METHOD 01/06/2025 4:06 PM EDT [facility] Hematocrit 35.0 35.0 - 47.0 % LAB HEMETOLOGY METHOD 01/06/2025 4:06 PM EDT [facility] MCV 94.3 79.0 - 98.0 FL LAB HEMETOLOGY METHOD 01/06/2025 4:06 PM [facility] MCH 29.6 27.0 - 32.0 pcg LAB HEMETOLOGY METHOD 01/06/2025 4:06 PM [facility] MCHC 31.4(L) 32.0 - 37.0 g/dL LAB HEMETOLOGY METHOD 01/06/2025 4:06 PM [facility] RDW 16.1(H) 11.0 - 15.0 % LAB HEMETOLOGY METHOD 01/06/2025 4:06 PM [facility] Platelets 339 130 - 400 K/mcL LAB HEMETOLOGY METHOD 01/06/2025 4:06 PM [facility] MPV 11.0 7.0 - 11.0 FL LAB HEMETOLOGY METHOD 01/06/2025 4:06 PM [facility] NRBC 0.2 <1.0 % LAB HEMETOLOGY METHOD 01/06/2025 4:06 PM [facility] NRBC Absolute 0.02 <0.10 K/mcL LAB HEMETOLOGY METHOD 01/06/2025 4:06 PM [facility] Neutrophils Relative 56.5 % LAB HEMETOLOGY METHOD 01/06/2025 4:06 PM [facility] Lymphocytes Relative 29.6 % LAB HEMETOLOGY METHOD 01/06/2025 4:06 PM [facility] Monocytes Relative 11.1 % LAB HEMETOLOGY METHOD 01/06/2025 4:06 PM [facility] Eosinophils Relative 1.7 % LAB HEMETOLOGY METHOD 01/06/2025 4:06 PM [facility] Basophils Relative 0.3 % LAB HEMETOLOGY METHOD 01/06/2025 4:06 PM EDT [facility] Immature Granulocytes Relative 0.8 % LAB HEMETOLOGY METHOD 01/06/2025 4:06 PM EDT [facility] Neutrophils Absolute 5.12 1.50 - 7.00 K/[facility] LAB HEMETOLOGY METHOD 01/06/2025 4:06 PM EDT [facility] Lymphocytes Absolute 2.68 1.00 - 5.00 K/mcL LAB HEMETOLOGY METHOD 01/06/2025 4:06 PM EDT [facility] Monocytes Absolute 1.01(H) 0.20 - 1.00 K/[facility] LAB HEMETOLOGY METHOD 01/06/2025 4:06 PM EDT [facility] Eosinophils Absolute 0.15 0.00 - 0.50 K/[facility] HEMETOLOGY METHOD 01/06/2025 4:06 PM [facility] Basophils Absolute 0.03 0.00 - 0.20 K/mcL LAB HEMETOLOGY METHOD 01/06/2025 4:06 PM EDT [facility] Immature Granulocytes Absolute 0.07(H) 0.00 - 0.03 K/mcL LAB HEMETOLOGY METHOD 01/06/2025 4:06 PM [facility] Blood Venous blood specimen / Unknown Venipuncture / Unknown 01/06/2025 11:29 AM EDT 01/06/2025 11:29 AM EDT us Kathy Perez MD LAB BLOOD ORDERABL ES Final Result [facility] [address] [place] [address], * (ABNORMAL) Protein and creatinine with ratio, [...] Re sult Performing Organization Address [facility]/ZIP Co de Phone Number [facility] [address] [place] [address], [place] [phone] * (ABNORMAL) Microalbumin creatinine urine ratio (01/06/2025 [...] Re sult Performing Organization Address [facility]/ZIP Co de Phone Number [facility] [address] [place] [address], [place] [phone] * Culture urine (01/06/2025 11:29 AM EDT) [...] LAB MICROBIOLOGY - GENERAL ORDERABLES Final Result [facility] [address] [place] [address], [place] [phone] * (ABNORMAL) Renal function panel (01/06/2025 11:29 AM EDT) [facility] Sodium 141 133 - 145 mmol/L LAB CHEMISTRY METHOD 01/06/2025 4:52 PM [facility] Potassium 4.4 3.5 - 5.5 mmol/L LAB CHEMISTRY METHOD 01/06/2025 4:52 PM [facility] Chloride 106 96 - 110 mmol/L LAB CHEMISTRY METHOD 01/06/2025 4:52 PM [facility] CO2 30 21 - 32 mmol/L LAB CHEMISTRY METHOD 01/06/2025 4:52 PM [facility] Anion Gap 5 3 - 11 LAB CHEMISTRY METHOD 01/06/2025 4:52 PM [facility] Glucose 99 70 - 100 mg/dL LAB CHEMISTRY METHOD 01/06/2025 4:52 PM [facility] BUN 13 5 - 25 mg/dL LAB CHEMISTRY METHOD 01/06/2025 4:52 PM [facility] Creatinine 0.98 0.50 - 1.10 mg/dL LAB CHEMISTRY METHOD 01/06/2025 4:52 PM [facility] eGFR 58(L) >=60 mL/min/1. 73m2 LAB CHEMISTRY METHOD 01/06/2025 4:52 PM EDT [facility] Comment:Calculation based on the Chronic Kidney Disease Epidemiology Collaboration (CKD-EPI) equation refit without adjustment for race. BUN/Creatinine Ratio 13.3 LAB CHEMISTRY METHOD 01/06/2025 4:52 PM EDT [facility] Albumin 3.4 3.2 - 5.0 g/dL LAB CHEMISTRY METHOD 01/06/2025 4:52 PM EDT [facility] Calcium 9.3 8.5 - 10.5 mg/dL LAB CHEMISTRY METHOD 01/06/2025 4:52 PM EDT [facility] Phosphorus 4.0 2.5 - 4.5 mg/dL LAB CHEMISTRY METHOD 01/06/2025 4:52 PM EDT [facility] Blood Venous blood specimen / Unknown Venipuncture / Unknown 01/06/2025 11:29 AM EDT 01/06/2025 11:29 AM EDT Everton Riddle MD LAB BLOOD ORDERABLES Final Re sult [facility] [address] [place] [address], * Lipid panel with reflex to direct [...] 08/26/2024 11:03 AM EDT us Elisa Romero NP LAB BLOOD ORDERABLES Final Result Performing Organization Address City/[facility]/ZIP Co de Phone Number [facility] [address] [place] [address], [place] [phone] * Hemoglobin A1c (08/26/2024 11:03 AM EDT) [facility] Hemoglobin A1C 6.4 <6.5 % LAB CHEMISTRY [...] Result [facility] [address] [place] [address], [place] [phone] * Hm Falls Risk Assessment (03/26/2024) [facility] Falls Risk Assessment Abstracted Historical Provider HEALTH MAINTENANCE Final Result * Depression Screening (03/26/2024) Pathologist [facility] Depression Screening Abstracted Historical Provider HEALTH MAINTENANCE Final Result * Diabetes Foot Exam (12/04/2023) Pathologist [facility] Diabetes: Annual Foot Exam Abstracted [facility] Provider HEALTH MAINTENANCE Final Result * Diabetes Eye Exam (11/28/2023) Pathologist [facility] Diabetes: Annual Retina Eye Exam Abstracted Comment:External Completion of test per patient (Patient reports normal results) Historical Provider HEALTH MAINTENANCE Final Result from Last 3 Months or Most Recently Relevant to Health Maintenance Insurance [facility] MEDICARE Member Subscriber Plan / Payer (Ef fective 2012-Present) Name:Shea Ramirez Relation to Subscriber:Self Name:Shea Ramirez Payer ID:[id number] Group ID:[id number] Type:Not on file Address: [place] [address] [address] [id number] Care Teams Burner Machine Operator Relationship Specialty Start Date End Date Kathy Perez MD [address] [place] [address] PCP - General Internal Medicine 07/22/24
--- OUTSIDE RECORDS SUMMARY | 2025-02-28 16:24 | XMS_ITS | Patient Health Record ---
Author Organization [facility] Address [address] [place] [address] Care Team Providers Care Machine Tool Builder Name Role Phone Narciso MITTAL, Yomi Primary Care Provider Deion Melendrez Unavailable [phone] Reason For Referral No Information Medications Medication [...] Date MEDICARE OF [place] [address] [place] [address] CARLOS ADHIKARI Self - patient is the insured MEDICAID OF [facility] [address] [place] [address] CARLOS ADHIKARI Self - patient is the insured
--- OUTSIDE RECORDS SUMMARY | 2025-02-28 16:24 | XMS_ITS | Encounter Summary ---
Author Organization [facility] Address [address] [place] [address] Care Team Providers Care Animal Cytologist Name Role Phone Kathy Perez MD Primary Care Prov ider Reason for Visit * Reason Onset Date Comments Fitting for DME 02/21/2025 Encounter Details Date Type Department Care Team (Late st Contact Info) Description 02/21/[address] [facility] [address] [place] [address] Kathy Perez MD [address] [place], [place] Social History Tobacco Use Types Packs/Day [...] for your loved ones. For example, children's entertainer or elderly care for an older adult? [...] as of this encounter Progress Notes * Ramón Morse MA - 02/27/2025 8:42 AM EDTAddended by: RAMÓN MORSE on: 02/27/2025 08:42 AM Modules accepted: Orders * Ramón Morse MA - 02/27/2025 8:41 AM EDT Orders faxed to [facility] * JESSICA Davis - 02/24/2025 2:33 PM [...] [facility]NA CALL Which [facility] office is calling? [facility] / Full name of caller: Roxana [...] 1:30 PM EDT Office Visit Adult Medicine [address] [phone] Kathy Perez MD [address] [place] [address] documented as of this encounter Visit Diagnoses Diagnosis Urethral diverticulum- Primary documented in this encounter Orders General Supply Count Last Ordered Date First Or dered Date GENERAL SUPPLY 1 02/27/2025 documented in this encounter Care Teams Animal Cytologist Relationship Specialty Start Date End Date Kathy Perez MD [address] [place] [address] PCP - General Internal Medicine 07/22/24 documented as of this encounter
--- OUTSIDE RECORDS SUMMARY | 2025-02-28 16:24 | XMS_ITS | Clinical Summary ---
Author Organization [facility] Address [address] [place] [address] Care Team Providers Care Translation Director Name Role Phone Kathy Christopher MD Primary [...] age to complete this topic Care Teams Translation Director Relationship Specialty Start Date End Date Kathy Christopher MD [address] [place] [address] PCP - General Internal Medicine 09/14/23
--- OUTSIDE RECORDS SUMMARY | 2025-02-28 16:24 | XMS_ITS | Clinical Summary ---
Author Organization [facility] Address [address] [place] [address] Care Team Providers Care Nonfarm Animal Caretaker Name Role Phone Pito Thompson MD Primary Care Provider [phone] Allergies No known active allergies Medications aspirin enteric coated (ECOTRIN LOW STRENGTH) 81 MG EC tabletIndication s:Coronary artery disease involving [place] heart, unspecified vessel or lesion type, unspecified [...] patient's age to complete this topic Insurance [facility] [place] [address] Advance Directives * Full Code (Latest Code Status on File) Date Activated Date Inactivated Comments 07/24/2021 9:24 PM Care Teams Nonfarm Animal Caretaker Relationship Specialty Start Date End Date Pito Thompson MD [address] [place] [address] PCP - General 07/25/21
--- OUTSIDE RECORDS SUMMARY | 2025-02-28 16:24 | XMS_ITS | Encounter Summary ---
Author Organization [facility] Address [address] [place] [address] Care Team Providers Care Cancer Registry Coordinator Name Role Phone Kathy Perez MD Primary Care Prov ider Reason for Visit * Reason Onset Date Comments [facility]NA 02/26/2025 Encounter Details Date Type Department Care Team (Late st Contact Info) Description 02/26/2025 Telephone Adult Medicine [facility] [address] [place] [address] Kathy Perez MD [address] [place], [place] Social History Tobacco Use Types Packs/Day [...] care for your loved ones. For example, housekeeper child care or elderly care for an older adult? [...] Progress Notes * Sabino Sanchez RN - 02/28/2025 11:38 AM EDT Called alice ciara to return call * Kathy Perez MD - 02/28/2025 10:27 AM EDT VO for PT and OT at home. * Lizzie Pringle - 02/26/2025 2:33 PM EDT [facility]NA CALL Which [facility]NA office is calling? [facility] / Full name of caller: Alice The caller is A nurse Is the caller at the patients home?: no Reason for call: Did see the patient today. Have some concerns about her safety and home. Would like VO for PT and OT at home. Does caller need an urgent call back? no Was CONTACT Telephone # obtained above?: yes Fax #: documented in this encounter Plan of Treatment Upcoming Encounters Date Type Department Care Team (Late st Contact Info) Description 03/06/2025 1:30 PM EDT Office Visit Adult Medicine [address] [phone] Kathy Perez MD [address] [place] [address] documented as of this encounter Visit Diagnoses Not on filedocumented in this encounter Care Teams Cancer Registry Coordinator Relationship Specialty Start Date End Date Kathy Perez MD [address] [place] [address] PCP - General Internal Medicine 07/22/24 documented as of this encounter
--- OUTSIDE RECORDS SUMMARY | 2025-02-28 16:24 | XMS_ITS | Encounter Summary ---
Author Organization [facility] Address [address] [place] [address] Care Team Providers Care Ukrainian Folk Arts Instructor Name Role Phone Kathy Perez MD Primary Care Prov ider Reason for Visit * Reason Onset Date Comments triage fall weakness IV leaking 02/24/2025 Please see message from VNA Encounter Details Date Type Department Care Team (Late st Contact Info) Description 02/24/2025 Telephone Adult Medicine [facility] [address] [place] [address] Kathy Perez MD [address] [place], [place] Social History Tobacco Use Types Packs/Day [...] care for your loved ones. For example, director maternal child or elderly care for an older adult? [...] 1:30 PM EDT Office Visit Adult Medicine [address] [phone] Kathy Perez MD [address] [place] [address] documented as of this encounter Visit Diagnoses Not on filedocumented in this encounter Care Teams Ukrainian Folk Arts Instructor Relationship Specialty Start Date End Date Kathy Perez MD [address] [place] [address] PCP - General Internal Medicine 07/22/24 documented as of this encounter
== END 2025-02-28 13:34 | disposition home or self-care (01) ==
LOC: HO.HVNA 13:33
PROVIDERS: Visit Provider Internal Medicine
DX: N30.00 Acute cystitis without hematuria (principal)
CPT/HCPCS: 36415; 80053; 85025

== ENCOUNTER 2025-03-13 13:26 | Outpatient (REF) | payer OTHER, SELFPAY ==
[2025-03-13 13:29] LABS: MANUAL DIFF FLAG NO
[2025-03-13 13:32] LABS: Hematocrit 32.3 % (37.0-47.0); Hemoglobin 10.6 g/dl (12.0-16.0); Imm Gran Abs Auto 0.02 X10*3/uL (0.00-0.03); Imm Gran Pct Auto 0.4 % (0.0-0.4); Lymphocytes Absolute Auto 1.9 X10*3/uL (1.2-4.9); Mean Corpuscular HGB Conc 32.8 g/dl (31.0-35.0); Mean Corpuscular Hemoglobin 29.0 pg (27.0-33.0); Mean Corpuscular Volume 88.5 fL (80.0-98.0); NRBC Abs Auto 0.000 X10*3/uL (0.0-0.012); NRBC Pct Auto 0.0 /100WBC (0.0-0.2); Platelet Count 316 X10*3/uL (160-400); Red Blood Count 3.65 X10*6/uL (4.20-5.50); White Blood Count 5.7 X10*3/uL (4.8-10.8)
[2025-03-13 14:04] LABS: Alanine Aminotransferase 12 U/L (0-31); Albumin Level 3.9 g/dL (3.5-5.0); Alkaline Phosphatase 86 U/L (39-117); Anion Gap 15 (12-20); Aspartate Amino Transferase 24 U/L (5-31); Blood Urea Nitrogen 14 mg/dL (9-16); Calcium 9.4 mg/dL (8.4-10.2); Carbon Dioxide 26 mmol/L (22-29); Chloride 109 mmol/L (96-108); Estimated Glomerular Filt Rate 53; Potassium 3.8 mmol/L (3.3-5.1); Sodium 146 mmol/L (135-145); Total Protein 6.5 g/dL (6.5-8.0)
--- OUTSIDE RECORDS SUMMARY | 2025-03-13 18:01 | XMS_ITS | Clinical Summary ---
Author Organization [facility] Address [address] [place] [address] Phone Care Team Providers Care Maintainer Central Office Name Role Phone Kathy Perez MD Primary [...] topically if needed (PAIN). 04/21/20 23 Active fluticasone-ume clidinium-vilan terol (Trelegy Ellipta) 100-62.5-25 mcg inhaler Inhale by mouth 1 (one) time each day. 11/04/19 20 Active plecanatide (Trulance) 3 mg tablet Take 1 tablet (3 mg total) by mouth 1 (one) time each day. 02/11/20 23 Active isosorbide mononitrate (IMDUR) 30 mg 24 [...] test strip Use as instructed 100 each 10/16/19 25 026 Active metFORMIN XR (GLUCOPHAGE-XR) [...] 3 (three) times a day. 30 each 03/06/20 25 Active estradioL (ESTRACE) 0.01 % (0.1 mg/gram) vaginal cream Insert into the vagina at bedtime. Apply a pea-sized amount of cream with your finger into the vagina daily at bedtime for 2 weeks, then two times a week at night. 04/05/20 23 025 Discontin ued(Thera py completed ) gabapentin (NEURONTIN) 100 mg capsule Take 1 capsule (100 mg total) by mouth 3 (three) times a day. 30 each 01/07/20 25 025 Discontin ued(Reord er) Active Problems Problem Noted Date Diagnosed Date Osteoarthritis 04/23/2024 Class 1 obesity due to exces s calories with serious comorbidity and body mass index (BMI) of 32.0 to 32.9 in adult 04/23/2024 Mucopurulent chronic bronchitis (CMS/[facility] V24, CM S/[facility] V28) 05/24/2023 Palpitations 05/24/2023 Chronic heart failure with p reserved ejection fraction (CMS/[facility] V24, CMS/[facility] V28) 11/24/2022 Assessment & Plan (06/04/2024 4:36 [...] disease, without long-term current use of insulin ([facility] V24, [facility] V28) 11/04/2019 Mammographic microcalcification 01/10/2019 Hearing decreased, bilateral 12/18/2018 COPD (chronic obstructive pu lmonary disease) ([facility] V24, [facility] V28) 12/10/2018 Assessment & Plan (07/30/2024 3:00 PM EST): Recent exacerbation, was evaluated in the emergency. Started on prednisone. Currently stable. Supplemental oxygen dependent 12/10/2018 Obstructive sleep apnea 11/21/2018 Overview (04/23/2024): [facility] Home Sleep Apnea Test: Date 11/18/2018; Wt 192#; BMI 33; HAYLEY 16, AI 1; HI 14; Unclassified apneas 0; Obstructive apneas 10; Central apneas 0; Mixed apneas 0; hypopneas 126; average oxygen saturation 88% (lowest 73% with saturations <88% for 5% or more of study) [facility] Polysomnogram treatment study. Date [...] kidney disease) stage 3, GFR 30-59 ml/min ([facility] V24, [facility] V28) 05/31/2017 Assessment & Plan (07/30/2024 3:00 PM EST): GFR around 50. Stable over the last year. Encouraged to avoid nephrotoxics, good control of diabetes and hypertension were discussed with the patient. Iron deficiency anemia due to chronic blood loss 08/18/2016 IBS (irritable bowel syndrome) 03/25/2016 Recurrent HSV (herpes simplex virus) 12/11/2015 Diabetes mellitus type 2 wit h neurological manifestations ([facility] V24, [facility] V28) 08/01/2015 Overview (04/23/2024): A1C 6.5 09/28 [...] x1 06/2015 Coronary artery disease invo lving [place] coronary artery of [place] heart without angina pectoris 01/21/2015 Overview (04/23/2024): [...] Gastroparesis 07/17/2012 Overview (04/23/2024): Dr. Stephenson at [address] [place] [address] GERD (gastroesophageal reflux disease) 3 Insomnia 07/17/2012 [...] Encounters Date Type Department Care Team Description 03/06/2025 1:30 PM EDT Office Visit Adult Medicine [address] [phone] Kathy Perez MD Nonintractable headache, unspecified chronicity pattern, unspecified headache type (Primary Dx); Recurrent UTI (urinary tract infection); 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 V24, CMS/HCC V28); Screening for depression 03/05/2025 Telephone Adult Medicine [address] [phone] Kathy Perez MD 02/26/2025 Telephone Adult Medicine [address] [phone] Kathy Perez MD 02/24/2025 Telephone Adult Medicine [address] [phone] Kathy Perez MD 02/21/2025 Telephone Adult Medicine [address] [phone] Kathy Perez MD 02/21/2025 Telephone Adult Medicine [address] [phone] Kathy Perez MD 02/11/2025 11:40 AM EDT Anesthesia Event [facility] [address] [place] [address] Rod Gill MD 02/11/2025 11:05 AM EDT - 02/11/2025 11:59 PM EDT Hospital Encounter [facility] Xray [address] [place] [phone] Pain Discharge Disposition: Home or Self Care 02/11/2025 9:42 AM EDT - 02/11/2025 11:59 PM EDT Hospital Encounter [facility] [address] [place] [phone] Marcus Murcia DO Steele, Matthew G, CRNA Gomes, Sheldon B, MD Radiculopathy, cervical region Discharge Disposition: Home or Self Care 01/24/2025 Telephone Adult Medicine [address] [phone] Kathy Perez MD 01/23/2025 [place] Adult Medicine [address] [phone] Kathy Perez MD 01/23/2025 Telephone Adult Medicine [address] [phone] Ana Conte RN 01/20/2025 Telephone Adult [address] [phone] Kathy Perez MD 01/20/2025 [place] Adult [address] [phone] Kathy Perez MD 01/06/2025 11:20 AM EDT Lab Draw [address] Recurrent UTI (urinary tract infection); Chronic kidney disease, stage 3a (CMS/HCC V24, CMS/HCC V28); Renal osteodystrophy; Type 2 diabetes mellitus with diabetic chronic kidney disease ([facility]/HCC V24, [facility] V28) 01/06/2025 10:30 AM EDT Office Visit Adult Medicine [address] [phone] Kathy Perez MD Hospital discharge follow-up (Primary Dx); Recurrent UTI (urinary tract infection); Type 2 diabetes mellitus without complication, without long-term current use of insulin ([facility] V24, [facility] V28); 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 Telephone Urogynecology [address] [phone] Eve Juan MD 12/31/2024 Telephone Urogynecology [address] [place] [phone] Rachael Huerta PR 12/31/2024 Telephone Adult Medicine [address] [phone] Quinten Acosta LPN 12/30/2024 Telephone Adult Medicine [address] [phone] Kathy Perez MD 12/23/2024 Telephone Urogynecology [address] [place] [address] Jossie Agudelo [place] 12/18/2024 11:30 AM EDT Office Visit Urogynecology [address] [phone] Eve Juan MD Dysuria (Primary Dx); OAB (overactive bladder) from Last 3 Months Immunizations Name Administration [...] PROCEDURE:TUBAL LIGATION OTHER SURGICAL HISTORY 2007 PROCEDURE: [place] CORRECTION HAMMERTOE; COMMENT: FOOT SURGERY Left PROCEDURE: HISTORICAL FOOT SURGERY; COMMENT: 18 y/o bunionectomy UPPER GASTROINTESTINAL ENDOSCOPY 03/22/2012 PROCEDURE: KS UPPER GI ENDOSCOPY PERFORMED; COMMENT: Normal study UPPER GASTROINTESTINAL ENDOSCOPY 11/27/2015 PROCEDURE: KS UPPER GI ENDOSCOPY PERFORMED; COMMENT: Gastritis and polyp. Normal Esophagus and duodenum. UPPER GASTROINTESTINAL ENDOSCOPY 2012 PROCEDURE: KS UPPER GI ENDOSCOPY PERFORMED; COMMENT: FOR GERD BLADDER SUSPENSION 05/29/2018 PROCEDURE: HISTORICAL BLADDER SUSPENSION CYSTOSCOPY 03/18/2019 PROCEDURE: HISTORICAL CYSTOSCOPY; COMMENT: Normal COLONOSCOPY 06/2005 PROCEDURE: HISTORICAL COLONOSCOPY; COMMENT: tubular adenoma COLONOSCOPY 06/2010 PROCEDURE: HISTORICAL COLONOSCOPY; COMMENT: negative COLONOSCOPY 12/16/2015 PROCEDURE: HISTORICAL COLONOSCOPY; COMMENT: tubular adenoma CARDIAC CATHETERIZATION 09/26/2014 PROCEDURE: HISTORICAL CARDIAC CATH; COMMENT: [facility] UPPER GASTROINTESTINAL ENDOSCOPY 08/18/2004 PROCEDURE: KS UPPER GI ENDOSCOPY PERFORMED FOOT SURGERY 12/2013 [...] pulmonary disease) (HCC) Heart failure (CMS/HCC V24, CMS/HCC V28) DX:Heart failure (HCC) Diabetes mellitus ([facility] V 24, [facility] V28) DX:Diabetes mellitus (HCC) Asthma 07/17/2012 DX:Asthma [...] mellitus type 2 wit h neurological manifestations ([facility] V24, [facility] V28) 08/01/2015 DX:Diabetes mellitus type 2 with neurological manifestations ([facility]); COMMENT: A1C 6.5 09/28 transfer records Gastric [...] for your loved ones. For example, child neurologist or elderly care for an older adult? [...] Sign Reading Time Taken Comments Blood Pressure 118/65 03/06/2025 1:37 PM EDT Pulse 85 03/06/2025 1:37 PM EDT Temperature 35.8 C (96.5 F) 03/06/2025 1:37 PM EDT Respiratory Rate 15 03/06/2025 1:37 PM EDT Oxygen Saturation 92% 03/06/2025 1:37 PM EDT Inhaled Oxygen Concentration - - Weight 82.2 kg (181 lb 3.2 oz) 03/06/2025 1:37 P M EDT Height 162.6 cm (5' 4 ) 03/06/2025 1:37 PM EDT Body Mass Index 31.1 03/06/2025 1:37 PM EDT Plan of Treatment Upcoming Encounters Date Type Department Care Team (Late st Contact Info) Description 06/05/2025 12:30 PM EST Office Visit Adult Medicine [address] [phone] Kathy Perez MD [address] [place] [address] Health Maintenance Due Date Last Done Comments Zoster Vaccines (1 of 2) 10[birth year]08/1964 Osteoporosis Screening (Bone Density Screening) 05/28/2022 Diabetes: Annual Retina Eye Exam 11/27/2024 11/28/2023 [...] exists RSV Immunization Adult Patients Completed 04/20/2023 Depression Screening Completed 03/06/2025, 03/26/20 24 HIB Vaccines Aged Out No longer eligi [...] Name Priority Date/Time Associated Diagnosis Comments EXTERNAL XRAY REPORT Routine 02/24/2025 11:01 AM EDT OXYGEN THERAPY, ADULT Routine 02/11/2025 12:10 PM [...] 12/18/2024 11:55 AM EDT OAB (overactive bladder) HEMOGLOBIN A1C Routine 08/26/2024 11:03 AM EDT Diabetes mellitus type 2 with neurological manifestations ([facility] V24, [facility] V28) LIPID PANEL WITH REFLEX TO DIRECT LDL Routine 08/26/2024 11:03 AM EDT Coronary artery disease involving [place] coronary artery of [place] heart without angina pectoris Hyperlipidemia, unspecified hyperlipidemia type DEPRESSION SCREENING Routine 03/26/2024 FALLS RISK ASSESSMENT Routine 03/26/2024 DIABETES FOOT EXAM Routine 12/04/2023 DIABETES EYE EXAM Routine 11/28/2023 from Last 3 Months or Most Recently Relevant to Health Maintenance Results * External Xray Report (02/24/2025 11:01 AM EDT) Anatomical Region Laterality Modality Radiographic Kayley ging Historical Provider MD KIMG XR PROCEDURES Final R esult * POCT Glucose, blood (02/11/2025 9:52 AM EDT) Glucose POCT 94 70 - 100 mg/dL 02/11/2025 9:53 AM EDT [facility] Blood Capillary blood specimen / Unknown 02/11/2025 9:52 AM EDT 02/11/2025 9:54 AM EDT Rod Gill MD LAB POINT OF CARE TE ST DOCKED DEVICE UNSOLICITED RESULTS Final Result [facility] [address] [place] [address], [place] [phone] * (ABNORMAL) Urinalysis with reflex microscopic and culture (01/06/2025 11:29 AM EDT) Specific Milo Urine 1.016 1.003 - 1.030 LAB URINALYSIS - AUTOMATED METHOD 01/06/2025 3:24 PM EDT [facility] pH, Urine 6.0 5.0 - 8.0 pH LAB URINALYSIS - AUTOMATED METHOD 01/06/2025 3:24 PM [facility] Leukocytes, Urine Large(A) Negative LAB URINALYSIS - AUTOMATED METHOD 01/06/2025 3:24 PM [facility] Nitrite, Urine Negative Negative LAB URINALYSIS - AUTOMATED METHOD 01/06/2025 3:24 PM [facility] Protein, Urine 30(A) <=Trace mg/dL LAB URINALYSIS - AUTOMATED METHOD 01/06/2025 3:24 PM [facility] Glucose, Urine Negative Negative mg/dL LAB URINALYSIS - AUTOMATED METHOD 01/06/2025 3:24 PM [facility] Ketones, Urine Trace(A) Negative mg/dL LAB URINALYSIS - AUTOMATED METHOD 01/06/2025 3:24 PM [facility] Urobilinogen, Urine 1.0 0.2 - 1.0 mg/dL LAB URINALYSIS - AUTOMATED METHOD 01/06/2025 3:24 PM [facility] Bilirubin, Urine Negative Negative LAB URINALYSIS - AUTOMATED METHOD 01/06/2025 3:24 PM [facility] Blood, Urine Trace(A) Negative LAB URINALYSIS - AUTOMATED METHOD 01/06/2025 3:24 PM [facility] RBC, Urine 2.5 0 - 4 /HPF LAB URINALYSIS - AUTOMATED METHOD 01/06/2025 3:24 PM [facility] WBC, Urine 184.2(H) 0 - 4 /HPF LAB URINALYSIS - AUTOMATED METHOD 01/06/2025 3:24 PM [facility] Squamous Epithelial, Urine 7 0 - 60 /LPF LAB URINALYSIS - AUTOMATED METHOD 01/06/2025 3:24 PM [facility] Bacteria, Urine Negative Negative /HPF LAB URINALYSIS - AUTOMATED METHOD 01/06/2025 3:24 PM EDT [facility] Hyaline Casts, Urine 0.4 0 - 3 /LPF LAB URINALYSIS - AUTOMATED METHOD 01/06/2025 3:24 PM EDT [facility] Urine Urine specimen obtained by clean catch procedure / Unknown Non-blood Collection / Unknown 01/06/2025 11:29 AM EDT 01/06/2025 11:29 AM EDT Kathy Perez MD LAB URINE ORDERABL ES Final Result Performing Organization Address [facility]/ZIP Co de Phone Number [facility] [address] [place] [address], [place] [phone] * Mcmillan urine culture tube (01/06/2025 11:29 AM EDT) Pathologist [facility] Extra Tube Hold for add-ons. 01/06/2025 4:01 PM EDT [facility] Comment:Auto resulted. Urine Urine specimen obtained by clean catch procedure / Unknown Non-blood Collection / Unknown 01/06/2025 11:29 AM EDT 01/06/2025 11:29 AM EDT us Kathy Perez MD LAB URINE ORDERABL ES Final Result Performing Organization Address City/[facility]/ZIP Co de Phone Number [facility] [address] [place] [address], [place] [phone] * (ABNORMAL) CBC auto differential (01/06/2025 11:29 AM EDT) WBC 9.1 4.8 - 10.8 K/[facility] LAB HEMETOLOGY METHOD 01/06/2025 4:06 PM EDT [facility] RBC 3.70(L) 3.80 - 4.80 M/[facility] LAB HEMETOLOGY METHOD 01/06/2025 4:06 PM [facility] Hemoglobin 11.0(L) 11.5 - 16.0 g/dL LAB HEMETOLOGY METHOD 01/06/2025 4:06 PM [facility] Hematocrit 35.0 35.0 - 47.0 % LAB HEMETOLOGY METHOD 01/06/2025 4:06 PM [facility] MCV 94.3 79.0 - 98.0 FL LAB HEMETOLOGY METHOD 01/06/2025 4:06 PM [facility] MCH 29.6 27.0 - 32.0 pcg LAB HEMETOLOGY METHOD 01/06/2025 4:06 PM [facility] MCHC 31.4(L) 32.0 - 37.0 g/dL LAB HEMETOLOGY METHOD 01/06/2025 4:06 PM [facility] RDW 16.1(H) 11.0 - 15.0 % LAB HEMETOLOGY METHOD 01/06/2025 4:06 PM [facility] Platelets 339 130 - 400 K/mcL LAB HEMETOLOGY METHOD 01/06/2025 4:06 PM [facility] MPV 11.0 7.0 - 11.0 FL LAB HEMETOLOGY METHOD 01/06/2025 4:06 PM [facility] NRBC 0.2 <1.0 % LAB HEMETOLOGY METHOD 01/06/2025 4:06 PM [facility] NRBC Absolute 0.02 <0.10 K/mcL LAB HEMETOLOGY METHOD 01/06/2025 4:06 PM [facility] Neutrophils Relative 56.5 % LAB HEMETOLOGY METHOD 01/06/2025 4:06 PM [facility] Lymphocytes Relative 29.6 % LAB HEMETOLOGY METHOD 01/06/2025 4:06 PM [facility] Monocytes Relative 11.1 % LAB HEMETOLOGY METHOD 01/06/2025 4:06 PM EDT [facility] Eosinophils Relative 1.7 % LAB HEMETOLOGY METHOD 01/06/2025 4:06 PM [facility] Basophils Relative 0.3 % LAB HEMETOLOGY METHOD 01/06/2025 4:06 PM [facility] Immature Granulocytes Relative 0.8 % LAB HEMETOLOGY METHOD 01/06[facility]2025 4:[facility] Neutrophils Absolute 5.12 1.50 - 7.00 K/mcL LAB HEMETOLOGY METHOD 01/06/2025 4:06 PM [facility] Lymphocytes Absolute 2.68 1.00 - 5.00 K/mcL LAB HEMETOLOGY METHOD 01/06/2025 4:06 PM [facility] Monocytes Absolute 1.01(H) 0.20 - 1.00 K/mcL LAB HEMETOLOGY METHOD 01/06/2025 4:06 PM [facility] Eosinophils Absolute 0.15 0.00 - 0.50 K/mcL LAB HEMETOLOGY METHOD 01/06/2025 4:06 PM [facility] Basophils Absolute 0.03 0.00 - 0.20 K/mcL LAB HEMETOLOGY METHOD 01/06/2025 4:06 PM [facility] Immature Granulocytes Absolute 0.07(H) 0.00 - 0.03 K/mcL LAB HEMETOLOGY METHOD 01/06/2025 4:06 PM [facility] Blood Venous blood specimen / Unknown Venipuncture / Unknown 01/06/2025 11:29 AM EDT 01/06/2025 11:29 AM EDT us Kathy Perez MD LAB BLOOD ORDERABL ES Final Result [facility] [address] [place] [address], [place] [phone] * (ABNORMAL) Protein and creatinine with ratio, urine (01/06/2025 11:29 AM EDT) Protein, Urine 30 mg/dL LAB CHEMISTRY METHOD 01/06/2025 4:55 PM EDT [facility] Prot/Creat, Ur 0.31(H) <=0.20 mg/mg creat LAB CHEMISTRY METHOD 01/06/2025 4:55 PM EDT [facility] Creatinine, Urine 96.0 mg/dL LAB CHEMISTRY METHOD 01/06/2025 4:55 PM EDT [facility] Urine Urine specimen obtained by clean catch procedure / Unknown Non-blood Collection / Unknown 01/06/2025 11:29 AM EDT 01/06/2025 11:29 AM EDT Everton Riddle MD LAB URINE ORDERABLES Final Re sult [facility] [address] [place] [address], [place] [phone] * (ABNORMAL) Microalbumin creatinine urine ratio (01/06/2025 11:29 AM EDT) Creatinine, Urine 96.0 mg/dL LAB CHEMISTRY METHOD 01/06/2025 5:02 PM EDT [facility] Microalb, Ur 87.3(H) 0.0 - 29.0 mg/L LAB CHEMISTRY METHOD 01/06/2025 5:02 PM EDT [facility] Microalb/Crea t Ratio 91(H) <30 mg/g creat LAB CHEMISTRY METHOD 01/06/2025 5:02 PM EDT [facility] Urine Urine specimen obtained by clean catch procedure / Unknown Non-blood Collection / Unknown 01/06/2025 11:29 AM EDT 01/06/2025 11:29 AM EDT Everton Riddle MD LAB URINE ORDERABLES Final Re sult Performing Organization Address [facility]/ZIP Co de Phone Number [facility] [address] [place] [address], [place] [phone] * Culture urine (01/06/2025 11:29 AM EDT) Only the most recent of2 resultswithin the time period is included. Pathologist [facility] Culture, Urine No growth 01/07/2025 10:14 AM EDT [facility] Urine Urine specimen obtained by clean catch procedure / Unknown Non-blood Collection / Unknown 01/06/2025 11:29 AM EDT 01/06/2025 3:24 PM EDT Kathy Perez MD LAB MICROBIOLOGY - GENERAL ORDERABLES Final Result Performing Organization Address [facility] Co de Phone Number [facility] [address] [place] [address], [place] [phone] * (ABNORMAL) Renal function panel (01/06/2025 11:29 AM EDT) Sodium 141 133 - 145 mmol/L LAB CHEMISTRY METHOD 01/06/2025 4:52 PM EDT [facility] Potassium 4.4 3.5 - 5.5 mmol/L LAB CHEMISTRY METHOD 01/06/2025 4:52 PM EDT [facility] Chloride 106 96 - 110 mmol/L LAB CHEMISTRY METHOD 01/06/2025 4:52 PM EDT [facility] CO2 30 21 - 32 mmol/L LAB CHEMISTRY METHOD 01/06/2025 4:52 PM EDT [facility] Anion Gap 5 3 - 11 LAB CHEMISTRY METHOD 01/06/2025 4:52 PM EDT [facility] Glucose 99 70 - 100 mg/dL LAB CHEMISTRY METHOD 01/06/2025 4:52 PM EDT [facility] BUN 13 5 - 25 mg/dL LAB CHEMISTRY METHOD 01/06/2025 4:52 PM T [facility] Creatinine 0.98 0.50 - 1.10 mg/dL LAB CHEMISTRY METHOD 01/06/2025 4:52 PM EDT [facility] eGFR 58(L) >=60 mL/min/1. 73m2 LAB CHEMISTRY METHOD 01/06/2025 4:52 PM EDT [facility] Comment:Calculation based on the Chronic Kidney Disease Epidemiology Collaboration (CKD-EPI) equation refit without adjustment for race. BUN/Creatinine Ratio 13.3 LAB CHEMISTRY METHOD 01/06/2025 4:52 PM [facility] Albumin 3.4 3.2 - 5.0 g/dL LAB CHEMISTRY METHOD 01/06/2025 4:[facility] Calcium 9.3 8.5 - 10.5 mg/dL LAB CHEMISTRY METHOD 01/06/2025 4:52 PM [facility] Phosphorus 4.0 2.5 - 4.5 mg/dL LAB CHEMISTRY METHOD 01/06/2025 4:52 PM [facility] Blood Venous blood specimen / Unknown Venipuncture / Unknown 01/06/2025 11:29 AM EDT 01/06/2025 11:29 AM EDT us Everton Riddle MD LAB BLOOD ORDERABLES Final Re sult [facility] [address] [place] [address], * Lipid panel with reflex to direct LDL (08/26/2024 11:03 AM EDT) Cholesterol 141 0 - 200 mg/dL LAB CHEMISTRY METHOD 08/26/2024 2:15 PM EDT [facility] Triglycerides 117 0 - 150 mg/dL LAB CHEMISTRY METHOD 08/26/2024 2:15 PM EDT [facility] HDL 55 >=40 mg/dL LAB CHEMISTRY METHOD 08/26/2024 2:15 PM EDT [facility] LDL Calculated 63 0 - 100 mg/dL LAB CHEMISTRY METHOD 08/26/2024 2:15 PM EDT [facility] VLDL Cholesterol Gus 23.4 mg/dL LAB CHEMISTRY METHOD 08/26/2024 2:15 PM EDT [facility] Non HDL Chol. (LDL+VLDL) 86 <145 mg/dL LAB CHEMISTRY METHOD 08/26/2024 2:15 PM EDT [facility] Chol/HDL Ratio 2.6 0.0 - 4.4 LAB CHEMISTRY METHOD 08/26/2024 2:15 PM EDT [facility] Blood Venous blood specimen / Unknown Venipuncture / Unknown 08/26/2024 11:03 AM EDT 08/26/2024 11:03 AM EDT Elisa Romero DIRECTOR OF GUIDANCE LAB BLOOD ORDERABLES Final Result [facility] [address] [place] [address], * Hemoglobin A1c (08/26/2024 11:03 AM EDT) Hemoglobin A1C 6.4 <6.5 % LAB CHEMISTRY METHOD 08/26/2024 1:50 PM EDT [facility] Mean Bld Glu Estim. 137 mg/dL LAB CHEMISTRY METHOD 08/26/2024 1:50 PM EDT [facility] Blood Venous blood specimen / Unknown Venipuncture / Unknown 08/26/2024 11:03 AM EDT 08/26/2024 11:03 AM EDT us Kathy Perez MD LAB BLOOD ORDERABL ES Final Result [facility] ([facility] [address] [place] [address], * Falls Risk Assessment (03/26/2024) Pathologist [facility] Falls Risk Assessment Abstracted Historical Provider MD HEALTH MAINTENANCE Final Result * Depression Screening (03/26/2024) Pathologist [facility] Depression Screening Abstracted Historical Provider MD HEALTH MAINTENANCE Final Result * Diabetes Foot Exam (12/04/2023) [facility] Diabetes: Annual Foot Exam Abstracted Historical Provider HEALTH MAINTENANCE Final Result * Diabetes Eye Exam (11/28/2023) [facility] Diabetes: Annual Retina Eye Exam Abstracted Comment:External Completion of test per patient (Patient reports normal results) Historical Provider HEALTH MAINTENANCE Final Result from Last 3 Months or Most Recently Relevant to Health Maintenance Insurance [facility] Member Subscriber Plan / Payer (Ef fective 2012-Present) Name:Shea Ramirez Relation to Subscriber:Self Name:Shea Ramirez Payer ID:[id number] Group ID:[id number] Type:Not on file Address: [facility] [place] [id number] Care Teams Maintainer Central Office Relationship Specialty Start Date End Date Kathy Perez MD [address] [place] [address] PCP - General Internal Medicine 2/3/25
--- OUTSIDE RECORDS SUMMARY | 2025-03-13 18:02 | XMS_ITS | Encounter Summary ---
Author Organization [facility] Address [address] [place] [address] Care Team Providers Care Veterinarian Helper Name Role Phone Kathy Perez MD Primary Care Prov ider Reason for Visit * Reason Onset Date Comments Fitting for DME 03/05/2025 Washcloths Encounter Details Date Type Department Care Team (Late st Contact Info) Description 03/05/2025 Telephone Adult Medicine [address] [phone] Kathy Perez MD [address], [place] Social History Tobacco Use Types Packs/Day [...] of this encounter Progress Notes * Ramón Smallwood [place] - 03/13/2025 1:39 PM EDT Signed orders faxed & scanned in. * Ramón Smallwood [place] - 03/12/2025 11:32 AM EDT To PCP for sig * Alin Sanz - 03/05/2025 10:31 AM EDT DME REQUEST Name of Product: premoistened washcloths Specific information about product [id number] # Needed 184 Reason patient is asking for this supply? R32 Have you received this supply before? If yes , when?: unknown When completed: Fax to other office/MD/pharmacy at fax # [phone] Who is requested? Radha Is this a fax request?Yes Have you told the patient it will take 7-10 days for completion of this request? No documented in this encounter Plan of Treatment Upcoming Encounters Date Type Department Care Team (Late st Contact Info) Description 06/05/2025 12:30 PM EST Office Visit Adult Medicine [address] [phone] Kathy Perez MD [address] [place] [address] documented as of this encounter Visit Diagnoses Not on filedocumented in this encounter Care Teams Veterinarian Helper Relationship Specialty Start Date End Date Kathy Perez MD [address] [place] [address] PCP - General Internal Medicine 07/22/24 documented as of this encounter
--- OUTSIDE RECORDS SUMMARY | 2025-03-13 18:02 | XMS_ITS | Patient Health Record ---
Author Organization [facility] Address [address] [place] [address] Care Team Providers Care Street Inspector Name Role Phone Narciso MITTAL, Yomi Primary Care Provider Deion Melendrez Unavailable [phone] Reason For Referral No Information Medications Medication [...] OF [place] [address] [place] [address] CARLOS ADHIKARI Self - patient is the insured MEDICAID OF [facility] [address] [place] [address] CARLOS ADHIKARI Self - patient is the insured
--- OUTSIDE RECORDS SUMMARY | 2025-03-13 18:02 | XMS_ITS | Clinical Summary ---
Author Organization [facility] Address [address] [place] [address] Care Team Providers Care Advertising Sales Executive Name Role Phone Kathy Christopher MD Primary [...] age to complete this topic Care Teams Advertising Sales Executive Relationship Specialty Start Date End Date Kathy Christopher MD [address] [place] [address] PCP - General Internal Medicine 09/14/23
--- OUTSIDE RECORDS SUMMARY | 2025-03-13 18:02 | XMS_ITS | Clinical Summary ---
Author Organization [facility] Address [address] [place] [address] Care Team Providers Care Crane Ladle Person Name Role Phone Pito Thompson MD Primary Care Provider [phone] Allergies No known active allergies Medications aspirin enteric coated (ECOTRIN LOW STRENGTH) 81 MG EC tabletIndication s:Coronary artery disease involving [place] heart, unspecified vessel or lesion type, unspecified [...] patient's age to complete this topic Insurance [facility] MEDICARE OUT OF NETWORK Advance Directives * Full Code (Latest Code Status on File) Date Activated Date Inactivated Comments 07/24/2021 9:24 PM Care Teams Crane Ladle Person Relationship Specialty Start Date End Date Pito Thompson MD [address] [place] [address] PCP - General 07/25/21
--- OUTSIDE RECORDS SUMMARY | 2025-03-13 18:02 | XMS_ITS | Clinical Summary ---
Author Organization [facility] Address [address] [address] Phone Care Team Providers Care Truck Loader Overhead Crane Name Role Phone Kathy Christopher MD Primary [...] Gastroparesis 07/17/2012 Overview (09/19/2024): Dr. 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) 04/15/2025 1:45 PM EDT Office Visit [facility] [address] [phone] Everton Riddle MD [address] [phone] 07/29/2025 1:00 PM EST Office Visit [facility] [address] [phone] Lizzie Magana ARNP [address] [phone] Health Maintenance Due Date [...] 11:29 AM EDT) Protein, Ur 30 mg/dL [facility] Urine Protein/Creati nine Ratio 0.31(H) <=0.20 mg/mg creat [facility] Creatinine, Urine 96.0 mg/dL [facility] Urine specimen (specimen) Urine specimen obtained by clean catch procedure / Unknown 01/06/2025 11:29 AM EDT 01/06/2025 3:13 PM EDT us Everton Riddle MD LAB URINE ORDERABLES Final Re sult [facility] [address] [place] [address] * (ABNORMAL) Urine Albumin / Creatinine Ratio (01/06/2025 11:29 AM EDT) Creatinine, Urine 96.0 mg/dL [facility] Microalbumin Urine Random 87.3(H) 0.0 - 29.0 mg/L [facility] Microalbumin/Cre atinine Ratio 91(H) <30 mg/g creat [facility] Urine specimen (specimen) Urine specimen obtained by clean catch procedure / Unknown 01/06/2025 11:29 AM EDT 01/06/2025 3:13 PM EDT us Everton Riddle MD LAB URINE ORDERABLES Final Re sult [facility] [address] [place] [address] * (ABNORMAL) Renal Function Panel (01/06/2025 11:29 AM EDT) Sodium 141 133 - 145 mmol/L [facility] Potassium 4.4 3.5 - 5.5 mmol/L [facility] Chloride 106 96 - 110 mmol/L [facility] Bicarbonate (CO2) 30 21 - 32 mmol/L [facility] Anion Gap 5 3 - [address] [facility] Glucose 99 70 - 100 mg/dL [facility] BUN 13 5 - 25 mg/dL [facility] Creatinine Serum 0.98 0.50 - 1.10 mg/dL [facility] eGFR 58(L) >=60 mL/min/1. 73m2 [facility] Comment:Calculation based on the Chronic Kidney Disease Epidemiology Collaboration (CKD-EPI) equation refit without adjustment for race. BUN/Creatinine Ratio 13.3 [facility] Albumin 3.4 3.2 - 5.0 g/dL [facility] Calcium 9.3 8.5 - 10.5 mg/dL [facility] Phosphorus 4.0 2.5 - 4.5 mg/dL [facility] Blood specimen (specimen) Venous blood / Unknown 01/06/2025 11:29 AM EDT 01/06/2025 3:12 PM EDT us Everton Riddle MD LAB BLOOD ORDERABLES Final Re sult [facility] [address] [place] [address] from Last 3 Months Insurance [address] [place] [address] [facility] ([id number]) [address] [place] [address] Care Teams Truck Loader Overhead Crane Relationship Specialty Start Date End Date Kathy Christopher MD [address] [place] [address] PCP - General 09/10/24
== END 2025-03-13 13:27 | disposition home or self-care (01) ==
LOC: HO.HVNA 13:26
PROVIDERS: Visit Provider Internal Medicine
DX: N39.0 Urinary tract infection, site not specified (principal)
CPT/HCPCS: 36415; 80053; 85025

== ENCOUNTER 2025-03-21 10:25 | Outpatient (REF) | payer OTHER, SELFPAY ==
--- NOTE | ~2025-03-21 | MR_ITS ---
EXAMINATION: MR PELVIS WITHOUT THEN WITH IV CONTRAST HISTORY: R93.5 - Abnormal findings on diagnostic imaging of other abdominal region.... TECHNIQUE: Axial T1, fat-suppressed T1, and fat suppressed T2, and sagittal and coronal T2-weighted MR images of the pelvis were obtained. Subsequently, sagittal and axial fat-suppressed T1-weighted images were obtained after the intravenous administration of 8 mL Gadavist. COMPARISON: Correlation is made with a CT of the pelvis dated 02/15/2025. FINDINGS: The uterus measures approximately 6.5 x 3.1 x 4.0 cm. There are fundal fibroids measuring 1.1 and 0.7 cm. The junctional zone is not thickened. The endometrium is unremarkable. There are nabothian cysts in the cervix. The cervical stroma is preserved. The right ovary is unremarkable. The left ovary is not definitely identified. When compared to the prior CT of the pelvis, the fluid collection inferior to the urinary bladder is much smaller in size and demonstrates enhancement of the wall. Findings are most compatible with a collapsed periurethral abscess. The residual fluid collection measures approximately 2.9 x 1.7 x 1.1 cm and is predominantly located to the right and posterior to the urethra. No ascites or pelvic lymphadenopathy is identified. The visualized bones demonstrate normal marrow signal intensity. MR/MR pelvis wo/w con IMPRESSION: Findings consistent with a partially collapsed periurethral abscess as described. Electronically signed by: Deion Esparza MD 03/21/2025 11:45 AM EDT
--- OUTSIDE RECORDS SUMMARY | 2025-03-21 11:18 | XMS_ITS | Patient Health Record ---
Author Organization [facility] Address [address] [place] [address] Care Team Providers Care Wood Machinist Name Role Phone Narciso MITTAL, Yomi Primary Care Provider Deion Melendrez Unavailable [phone] Reason For Referral No Information Medications Medication [...] OF [place] [address] [place] [address] CARLOS ADHIKARI Self - patient is the insured MEDICAID OF [facility] [address] [place] [address] CARLOS ADHIKARI Self - patient is the insured
--- OUTSIDE RECORDS SUMMARY | 2025-03-21 11:18 | XMS_ITS | Clinical Summary ---
Author Organization [facility] Address [address] [place] [address] Phone Care Team Providers Care Appeals Analyst Name Role Phone Kathy Perez MD [...] 32.9 in adult 04/23/2024 Mucopurulent chronic bronchitis (CMS/[facility] V24, CM S/[facility] V28) 05/24/2023 Palpitations 05/24/2023 Chronic heart failure with p reserved ejection fraction (CMS/[facility] V24, CMS/[facility] V28) 11/24/2022 Assessment & Plan (06/04/2024 4:36 [...] disease, without long-term current use of insulin ([facility] V24, [facility] V28) 11/04/2019 Mammographic microcalcification 01/10/2019 Hearing decreased, bilateral 12/18/2018 COPD (chronic obstructive pu lmonary disease) ([facility] V24, [facility] V28) 12/10/2018 Assessment & Plan (07/30/2024 3:00 PM EST): Recent exacerbation, was evaluated in the emergency. Started on prednisone. Currently stable. Supplemental oxygen dependent 12/10/2018 Obstructive sleep apnea 11/21/2018 Overview (04/23/2024): [facility] Home Sleep Apnea Test: Date 11/18/2018; Wt 192#; BMI 33; HAYLEY 16, AI 1; HI 14; Unclassified apneas 0; Obstructive apneas 10; Central apneas 0; Mixed apneas 0; hypopneas 126; average oxygen saturation 88% (lowest 73% with saturations <88% for 5% or more of study) [facility] Polysomnogram treatment study. Date [...] kidney disease) stage 3, GFR 30-59 ml/min ([facility] V24, [facility] V28) 05/31/2017 Assessment & Plan (07/30/2024 3:00 PM EST): GFR around 50. Stable over the last year. Encouraged to avoid nephrotoxics, good control of diabetes and hypertension were discussed with the patient. Iron deficiency anemia due to chronic blood loss 08/18/2016 IBS (irritable bowel syndrome) 03/25/2016 Recurrent HSV (herpes simplex virus) 12/11/2015 Diabetes mellitus type 2 wit h neurological manifestations ([facility] V24, [facility] V28) 08/01/2015 Overview (04/23/2024): A1C 6.5 09/28 [...] x1 06/2015 Coronary artery disease invo lving cous[place]ta coronary artery of cous[place]ta heart without angina pectoris 01/21/2015 Overview (04/23/2024): [...] Gastroparesis 07/17/2012 Overview (04/23/2024): Dr. Stephenson at [address] [place] [address] GERD (gastroesophageal reflux disease) 3 Insomnia 07/17/2012 [...] Encounters Date Type Department Care Team Description 03/13/2025 6:23 PM EDT - 03/13/2025 11:59 PM EDT Hospital Encounter [facility] [address] [place] [id number] Nonintractable headache, unspecified chronicity pattern, unspecified headache type Discharge Disposition: Home or Self Care 03/06/2025 1:30 PM EDT Office Visit Adult Medicine [address] [phone] Kathy Perez MD Nonintractable headache, unspecified chronicity pattern, unspecified headache type (Primary Dx); Recurrent UTI (urinary tract infection); 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 V24, CMS/HCC V28); Screening for depression 03/05/2025 Telephone Adult Medicine [address] [phone] Kathy Perez MD 02/26/2025 Telephone Adult Medicine [address] [phone] Kathy Perez MD 02/24/2025 Telephone Adult Medicine [address] [phone] Kathy Perez MD 02/21/2025 Telephone Adult Medicine [address] [phone] Kathy Perez MD 02/21/2025 Telephone Adult Medicine [address] [phone] Kathy Perez MD 02/11/2025 11:40 AM EDT Anesthesia Event [facility] [address] [place] [phone] Rod Gill MD 02/11/2025 11:05 AM EDT - 02/11/2025 11:59 PM EDT Hospital Encounter [facility] Xray [address] [place] [phone] Pain Discharge Disposition: Home or Self Care 02/11/2025 9:42 AM EDT - 02/11/2025 11:59 PM EDT Hospital Encounter [facility] [address] [place] [phone] Marcus Murcia DO Steele, Matthew G, CRNA Gomes, Sheldon B, MD Radiculopathy, cervical region Discharge Disposition: Home or Self Care 01/24/2025 Telephone Adult Medicine [address] [phone] Kathy Perez MD 01/23/2025 Telephone Adult Medicine [address] [phone] Kathy Perez MD 01/23/2025 Telephone Adult Medicine [address] [phone] Ana Conte RN 01/20/2025 Telephone Adult Medicine [address] [phone] Kathy Perez MD 01/20/2025 Telephone Adult Medicine [address] [phone] Kathy Perez MD 01/06/2025 11:20 AM EDT Lab Draw [address] Recurrent UTI (urinary tract infection); Chronic kidney disease, stage 3a (CMS/HCC V24, CMS/HCC V28); Renal osteodystrophy; Type 2 diabetes mellitus with diabetic chronic kidney disease ([facility] V24, [facility] V28) 01/06/2025 10:30 AM EDT Office Visit Adult [address] [phone] Kathy Perez MD Hospital discharge follow-up (Primary Dx); Recurrent UTI (urinary tract infection); Type 2 diabetes mellitus without complication, without long-term current use of insulin ([facility] V24, [facility] V28); 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 Telephone Urogynecology [address] [phone] Eve Juan MD 12/31/2024 Telephone Urogynecology [address] [place] [address] Rachael Huerta MA 12/31/2024 Telephone Adult Medicine [address] [phone] Quinten Acosta LPN 12/30/2024 Telephone Adult Medicine [address] [phone] Kathy Perez MD 12/23/2024 Telephone Urogynecology [address] [place] [address] Jossie Agudelo MA from Last 3 Months Immunizations Immunization Administration Dates Next Due Influenza trivalent, 0.5mL ( Fluad) 65yo and older 03/26/2024,02/28/2023,03/28/2022,03/22,03/13/2019,03/02/2018,03/01/2017 ,03/30/2016 Influenza, Unspecified 03/10/2022,2020,02/24/2020,04/06,05/06/2014,03/05/2013 Mobile Pulse/[employer] SARS-CoV-2 COVID -19, vector-nr, [id number], preservative free [...] PROCEDURE:TUBAL LIGATION OTHER SURGICAL HISTORY 2007 PROCEDURE: FL CORRECTION HAMMERTOE; COMMENT: FOOT SURGERY Left PROCEDURE: HISTORICAL FOOT SURGERY; COMMENT: 18 y/o bunionectomy UPPER GASTROINTESTINAL ENDOSCOPY 03/22/2012 PROCEDURE: FL UPPER GI ENDOSCOPY PERFORMED; COMMENT: Normal study UPPER GASTROINTESTINAL ENDOSCOPY 11/27/2015 PROCEDURE: FL UPPER GI ENDOSCOPY PERFORMED; COMMENT: Gastritis and polyp. Normal Esophagus and duodenum. UPPER GASTROINTESTINAL ENDOSCOPY 2012 PROCEDURE: FL UPPER GI ENDOSCOPY PERFORMED; COMMENT: FOR GERD BLADDER SUSPENSION 05/29/2018 PROCEDURE: HISTORICAL BLADDER SUSPENSION CYSTOSCOPY 03/18/2019 PROCEDURE: HISTORICAL CYSTOSCOPY; COMMENT: Normal COLONOSCOPY 06/2005 PROCEDURE: HISTORICAL COLONOSCOPY; COMMENT: tubular adenoma COLONOSCOPY 06/2010 PROCEDURE: HISTORICAL COLONOSCOPY; COMMENT: negative COLONOSCOPY 12/16/2015 PROCEDURE: HISTORICAL COLONOSCOPY; COMMENT: tubular adenoma CARDIAC CATHETERIZATION 09/26/2014 PROCEDURE: HISTORICAL CARDIAC CATH; COMMENT: RCA stent [facility] UPPER GASTROINTESTINAL ENDOSCOPY 08/18/2004 PROCEDURE: FL UPPER GI ENDOSCOPY PERFORMED FOOT SURGERY 12/2013 [...] CMS/HCC V28) DX:Heart failure (HCC) Diabetes mellitus ([facility] V 24, [facility] V28) DX:Diabetes mellitus (HCC) Asthma 07/17/2012 DX:Asthma [...] mellitus type 2 wit h neurological manifestations ([facility] V24, [facility] V28) 08/01/2015 DX:Diabetes mellitus type 2 with neurological manifestations ([facility]); COMMENT: A1C 6.5 09/28 transfer records Gastric [...] do you feel lonely or isolated from ose around you? Never 10/03/2024 Food Risk [...] your loved ones. For example, early childhood teacher or elderly care for an [...] Date Recorded What is your living situation? Unrecognized valu e 10/03/2024 Interpersonal Safety Answer Date Record ed Physical Abuse Unrecognized value 02/11/2025 Verbal Abuse Unrecognized value 02/11/2025 Comments No Sex and Gender Information [...] 12:30 PM EST Office Visit Adult Medicine [address] [phone] Kathy Perez MD [address] [place] [address] Health Maintenance Due Date Last Done Comments [...] AM EDT Recurrent UTI (urinary tract infection) HEMOGLOBIN A1C Routine 08/26/2024 11:03 AM EDT 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 V24, CMS/HCC V28) LIPID PANEL WITH REFLEX TO DIRECT LDL Routine 08/26/2024 11:03 AM EDT Coronary artery disease involving [place] coronary artery of cous[place]ta heart without angina pectoris Hyperlipidemia, unspecified hyperlipidemia type DEPRESSION SCREENING Routine 03/26/2024 FALLS RISK ASSESSMENT Routine 03/26/2024 DIABETES FOOT EXAM Routine 12/04/2023 DIABETES EYE EXAM Routine 11/28/2023 from Last 3 Months or Most Recently Relevant to Health Maintenance Results * External Xray Report (02/24/2025 11:01 AM EDT) Anatomical Region Laterality Modality Radiographic Kayley ging us Historical Provider IMIldefonso XR PROCEDURES Final R esult * POCT Glucose, blood (02/11/2025 9:52 AM EDT) [facility] Glucose POCT 94 70 - 100 mg/dL 02/11/2025 9:53 AM EDT [facility] Blood Capillary blood specimen / Unknown 02/11/2025 9:52 AM EDT 02/11/2025 9:54 AM EDT Rod Gill MD LAB POINT OF CARE TE ST DOCKED DEVICE UNSOLICITED RESULTS Final Result [facility] [address] [place] [address], [place] [phone] * (ABNORMAL) Urinalysis with reflex microscopic and culture (01/06/2025 11:29 AM EDT) [facility] Specific [place] Urine 1.016 1.003 - 1.030 LAB URINALYSIS - AUTOMATED METHOD 01/06/2025 3:24 PM EDT [facility] pH, Urine 6.0 5.0 - 8.0 pH LAB URINALYSIS - AUTOMATED METHOD 01/06/2025 3:24 PM [facility] Leukocytes, Urine Large(A) Negative LAB URINALYSIS - AUTOMATED METHOD 01/06/2025 3:24 PM [facility] Nitrite, Urine Negative Negative LAB URINALYSIS - AUTOMATED METHOD 01/06/2025 3:24 PM [facility] Protein, Urine 30(A) <=Trace mg/dL LAB URINALYSIS - AUTOMATED METHOD 01/06/2025 3:24 PM [facility] Glucose, Urine Negative Negative mg/dL LAB URINALYSIS - AUTOMATED METHOD 01/06/2025 3:24 PM [facility] Ketones, Urine Trace(A) Negative mg/dL LAB URINALYSIS - AUTOMATED METHOD 01/06/2025 3:24 PM [facility] Urobilinogen, Urine 1.0 0.2 - 1.0 mg/dL LAB URINALYSIS - AUTOMATED METHOD 01/06/2025 3:24 PM [facility] Bilirubin, Urine Negative Negative LAB URINALYSIS - AUTOMATED METHOD 01/06/2025 3:24 PM [facility] Blood, Urine Trace(A) Negative LAB URINALYSIS - AUTOMATED METHOD 01/06/2025 3:24 PM [facility] RBC, Urine 2.5 0 - 4 /HPF LAB URINALYSIS - AUTOMATED METHOD 01/06/2025 3:24 PM [facility] WBC, Urine 184.2(H) 0 - 4 /HPF LAB URINALYSIS - AUTOMATED METHOD 01/06/2025 3:24 PM [facility] Squamous Epithelial, Urine 7 0 - 60 /LPF LAB URINALYSIS - AUTOMATED METHOD 01/06/2025 3:24 PM [facility] Bacteria, Urine Negative Negative /HPF LAB URINALYSIS - AUTOMATED METHOD 01/06/2025 3:24 PM EDT [facility] Hyaline Casts, Urine 0.4 0 - 3 /LPF LAB URINALYSIS - AUTOMATED METHOD 01/06/2025 3:24 PM EDT [facility] Urine Urine specimen obtained by clean catch procedure / Unknown Non-blood Collection / Unknown 01/06/2025 11:29 AM EDT 01/06/2025 11:29 AM EDT Kathy Perez MD LAB URINE ORDERABL ES Final Result Performing Organization Address [facility]/ZIP Co de Phone Number [facility] [address] [place] [address], [place] [phone] * Mcmillan urine culture tube (01/06/2025 11:29 AM EDT) Extra Tube Hold for add-ons. 01/06/2025 4:01 PM EDT [facility] Comment:Auto resulted. Urine Urine specimen obtained by clean catch procedure / Unknown Non-blood Collection / Unknown 01/06/2025 11:29 AM EDT 01/06/2025 11:29 AM EDT Kathy Perez MD LAB URINE ORDERABL ES Final Result Performing Organization Address City/[facility]/ZIP Co de Phone Number [facility] [address] [place] [address], [place] [phone] * (ABNORMAL) CBC auto differential (01/06/2025 11:29 AM EDT) WBC 9.1 4.8 - 10.8 K/[facility] HEMETOLOGY METHOD 01/06/2025 4:06 PM EDT [facility] RBC 3.70(L) 3.80 - 4.80 M/[facility] LAB HEMETOLOGY METHOD 01/06/2025 4:06 PM EDT [facility] Hemoglobin 11.0(L) 11.5 - 16.0 g/dL LAB HEMETOLOGY METHOD 01/06/2025 4:06 PM [facility] Hematocrit 35.0 35.0 - 47.0 % LAB HEMETOLOGY METHOD 01/06/2025 4:06 PM [facility] MCV 94.3 79.0 - 98.0 FL LAB HEMETOLOGY METHOD 01/06/2025 4:06 PM [facility] MCH 29.6 27.0 - 32.0 pcg LAB HEMETOLOGY METHOD 01/06/2025 4:06 PM [facility] MCHC 31.4(L) 32.0 - 37.0 g/dL LAB HEMETOLOGY METHOD 01/06/2025 4:06 PM [facility] RDW 16.1(H) 11.0 - 15.0 % LAB HEMETOLOGY METHOD 01/06/2025 4:06 PM [facility] Platelets 339 130 - 400 K/mcL LAB HEMETOLOGY METHOD 01/06/2025 4:06 PM [facility] MPV 11.0 7.0 - 11.0 FL LAB HEMETOLOGY METHOD 01/06/2025 4:06 PM [facility] NRBC 0.2 <1.0 % LAB HEMETOLOGY METHOD 01/06/2025 4:06 PM [facility] NRBC Absolute 0.02 <0.10 K/mcL LAB HEMETOLOGY METHOD 01/06/2025 4:06 PM [facility] Neutrophils Relative 56.5 % LAB HEMETOLOGY METHOD 01/06/2025 4:06 PM [facility] Lymphocytes Relative 29.6 % LAB HEMETOLOGY METHOD 01/06/2025 4:06 PM [facility] Monocytes Relative 11.1 % LAB HEMETOLOGY METHOD 01/06/2025 4:06 PM EDT [facility] Eosinophils Relative 1.7 % LAB HEMETOLOGY METHOD 01/06/2025 4:06 PM EDT [facility] Basophils Relative 0.3 % LAB HEMETOLOGY METHOD 01/06/2025 4:06 PM EDT [facility] Immature Granulocytes Relative 0.8 % LAB HEMETOLOGY METHOD 01/06/2025 4:06 PM EDT [facility] Neutrophils Absolute 5.12 1.50 - 7.00 K/mcL LAB HEMETOLOGY METHOD 01/06/2025 4:06 PM EDT [facility] Lymphocytes Absolute 2.68 1.00 - 5.00 K/mcL LAB HEMETOLOGY METHOD 01/06/2025 4:06 PM EDT [facility] Monocytes Absolute 1.01(H) 0.20 - 1.00 K/mcL LAB HEMETOLOGY METHOD 01/06/2025 4:06 PM EDT [facility] Eosinophils Absolute 0.15 0.00 - 0.50 K/mcL LAB HEMETOLOGY METHOD 01/06/2025 4:06 PM EDT [facility] Basophils Absolute 0.03 0.00 - 0.20 K/mcL LAB HEMETOLOGY METHOD 01/06/2025 4:06 PM EDT [facility] Immature Granulocytes Absolute 0.07(H) 0.00 - 0.03 K/mcL LAB HEMETOLOGY METHOD 01/06/2025 4:06 PM EDT [facility] Blood Venous blood specimen / Unknown Venipuncture / Unknown 01/06/2025 11:29 AM EDT 01/06/2025 11:29 AM EDT us Kathy Perez MD LAB BLOOD ORDERABL ES Final Result [facility] [address] [place] [address], [place] [phone] * (ABNORMAL) Protein and creatinine with ratio, urine (01/06/2025 11:29 AM EDT) Protein, Urine 30 mg/dL LAB CHEMISTRY METHOD 01/06/2025 4:55 PM EDT [facility] Prot/Creat, Ur 0.31(H) <=0.20 mg/mg creat LAB CHEMISTRY METHOD 01/06/2025 4:55 PM EDT [facility] Creatinine, Urine 96.0 mg/dL LAB CHEMISTRY METHOD 01/06/2025 4:55 PM EDT [facility] Urine Urine specimen obtained by clean catch procedure / Unknown Non-blood Collection / Unknown 01/06/2025 11:29 AM EDT 01/06/2025 11:29 AM EDT Everton Riddle MD LAB URINE ORDERABLES Final Re sult [facility] [address] [place] [address], [place] [phone] * (ABNORMAL) Microalbumin creatinine urine ratio (01/06/2025 11:29 AM EDT) Creatinine, Urine 96.0 mg/dL LAB CHEMISTRY METHOD 01/06/2025 5:02 PM EDT [facility] Microalb, Ur 87.3(H) 0.0 - 29.0 mg/L LAB CHEMISTRY METHOD 01/06/2025 5:02 PM EDT [facility] Microalb/Crea t Ratio 91(H) <30 mg/g creat LAB CHEMISTRY METHOD 01/06/2025 5:02 PM EDT [facility] Urine Urine specimen obtained by clean catch procedure / Unknown Non-blood Collection / Unknown 01/06/2025 11:29 AM EDT 01/06/2025 11:29 AM EDT us Everton Riddle MD LAB URINE ORDERABLES Final Re sult Performing Organization Address City/[facility]/ZIP Co de Phone Number [facility] [address] [place] [address], [place] [phone] * Culture urine (01/06/2025 11:29 AM EDT) [facility] Culture, Urine No growth 01/07/2025 10:14 AM EDT [facility] Urine Urine specimen obtained by clean catch procedure / Unknown Non-blood Collection / Unknown 01/06/2025 11:29 AM EDT 01/06/2025 3:24 PM EDT Kathy Perez MD LAB MICROBIOLOGY - GENERAL ORDERABLES Final Result Performing Organization Address City/[facility]/ZIP Co de Phone Number [facility] [address] [place] [address], [place] [phone] * (ABNORMAL) Renal function panel (01/06/2025 11:29 AM EDT) [facility] Sodium 141 133 - 145 mmol/L LAB CHEMISTRY METHOD 01/06/2025 4:52 PM [facility] Potassium 4.4 3.5 - 5.5 mmol/L LAB CHEMISTRY METHOD 01/06/2025 4:52 PM [facility] Chloride 106 96 - 110 mmol/L LAB CHEMISTRY METHOD 01/06/2025 4:52 PM [facility] CO2 30 21 - 32 mmol/L LAB CHEMISTRY METHOD 01/06/2025 4:52 PM [facility] Anion Gap 5 3 - 11 LAB CHEMISTRY METHOD 01/06/2025 4:52 PM [facility] Glucose 99 70 - 100 mg/dL LAB CHEMISTRY METHOD 01/06/2025 4:52 PM [facility] BUN 13 5 - 25 mg/dL LAB CHEMISTRY METHOD 01/06/2025 4:52 PM EDT [facility] Creatinine 0.98 0.50 - 1.10 mg/dL LAB CHEMISTRY METHOD 01/06/2025 4:52 PM T [facility] eGFR 58(L) >=60 mL/min/1. 73m2 LAB CHEMISTRY METHOD 01/06/2025 4:52 PM EDT [facility] Comment:Calculation based on the Chronic Kidney Disease Epidemiology Collaboration (CKD-EPI) equation refit without adjustment for race. BUN/Creatinine Ratio 13.3 LAB CHEMISTRY METHOD 01/06/2025 4:52 PM T [facility] Albumin 3.4 3.2 - 5.0 g/dL LAB CHEMISTRY METHOD 01/06/2025 4:52 PM [facility] Calcium 9.3 8.5 - 10.5 mg/dL LAB CHEMISTRY METHOD 01/06/2025 4:52 PM [facility] Phosphorus 4.0 2.5 - 4.5 mg/dL LAB CHEMISTRY METHOD 01/06/2025 4:52 PM [facility] Blood Venous blood specimen / Unknown Venipuncture / Unknown 01/06/2025 11:29 AM EDT 01/06/2025 11:29 AM EDT us Everton Riddle MD LAB BLOOD ORDERABLES Final Re sult [facility] [address] [place] [address], * Lipid panel with reflex to direct LDL (08/26/2024 11:03 AM EDT) Cholesterol 141 0 - 200 mg/dL LAB CHEMISTRY METHOD 08/26/2024 2:15 PM EDT [facility] Triglycerides 117 0 - 150 mg/dL LAB CHEMISTRY METHOD 08/26/2024 2:15 PM EDT [facility] HDL 55 >=40 mg/dL LAB CHEMISTRY METHOD 08/26/2024 2:15 PM EDT [facility] LDL Calculated 63 0 - 100 mg/dL LAB CHEMISTRY METHOD 08/26/2024 2:15 PM EDT [facility] VLDL Cholesterol Gus 23.4 mg/dL LAB CHEMISTRY METHOD 08/26/2024 2:15 PM EDT [facility] Non HDL Chol. (LDL+VLDL) 86 <145 mg/dL LAB CHEMISTRY METHOD 08/26/2024 2:15 PM EDT [facility] Chol/HDL Ratio 2.6 0.0 - 4.4 LAB CHEMISTRY METHOD 08/26/2024 2:15 PM EDT [facility] Blood Venous blood specimen / Unknown Venipuncture / Unknown 08/26/2024 11:03 AM EDT 08/26/2024 11:03 AM EDT us Elisa Romero NP LAB BLOOD ORDERABLES Final Result [facility] [address] [place] [address], * Hemoglobin A1c (08/26/2024 11:03 AM EDT) Hemoglobin A1C 6.4 <6.5 % LAB CHEMISTRY METHOD 08/26/2024 1:50 PM EDT [facility] Mean Bld Glu Estim. 137 mg/dL LAB CHEMISTRY METHOD 08/26/2024 1:50 PM EDT [facility] Blood Venous blood specimen / Unknown Venipuncture / Unknown 08/26/2024 11:03 AM EDT 08/26/2024 11:03 AM EDT us Kathy Perez MD LAB BLOOD ORDERABL ES Final Result [facility] ([email or web address] [address] [place] [address], * Falls Risk Assessment (03/26/2024) Pathologist [facility] Falls Risk Assessment Abstracted Historical Provider HEALTH MAINTENANCE Final Result * Depression Screening (03/26/2024) Pathologist [facility] Depression Screening Abstracted Historical Provider MD HEALTH MAINTENANCE Final Result * Diabetes Foot Exam (12/04/2023) Pathologist [facility] Diabetes: Annual Foot Exam Abstracted Historical Provider HEALTH MAINTENANCE Final Result * Diabetes Eye Exam (11/28/2023) [facility] Diabetes: Annual Retina Eye Exam Abstracted Comment:External Completion of test per patient (Patient reports normal results) Historical Provider HEALTH MAINTENANCE Final Result from Last 3 Months or Most Recently Relevant to Health Maintenance Insurance [facility] MEDICARE Member Subscriber Plan / Payer (Ef fective 2012-Present) Name:Shea Ramirez Relation to Subscriber:Self Name:Shea Ramirez Payer ID:[id number] Group ID:[id number] Type:Not on file Address: [facility] [place] [id number] Care Teams Appeals Analyst Relationship Specialty Start Date End Date Kathy Perez MD [address] [place] [address] PCP - General Internal Medicine 07/22/24
--- OUTSIDE RECORDS SUMMARY | 2025-03-21 11:19 | XMS_ITS | Clinical Summary ---
Author Organization [facility] Address [address] [phone] Phone Care Team Providers Care Floor Care Technician Name Role Phone Kathy Christopher MD [...] Gastroparesis 07/17/2012 Overview (09/19/2024): Dr. 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) from Last 3 Months Immunizations Immunization Administration Dates Next Due Influenza, Trivalent, Adjuvanted 024,02/28/2023,03/28/2022,03/22/2020 ,03/13/2019,03/02/2018,03/01/2017, 6 Influenza, Unspecified 03/10/2022,2020,02/24/2020,04/06/2015 ,05/06/2014,03/05/2013 Fix That Bug SARS-COV-2 09/09/2020 Pfizer SARS-COV-2 04/28/2021 Pneumococcal Conjugate [...] Office Visit [facility] [address] [place] [phone] Everton Riddle MD [address] [phone] 07/29/2025 1:00 PM EST Office Visit [facility] [address] [phone] Lizzie Magana ARNP [address] [phone] Health Maintenance Due Date Last Done Comments Diabetes: Ophthalmology Exam 09/10/2024 06/27/2014 Diabetes: Pedal Pulse Checked 09/10/2024 Diabetes: Sensory Foot Exam 09/10/2024 Diabetes: Visual Foot Exam 09/10/2024 Diabetes: Hemoglobin A1C 11/26/2024 08/26/2024, 02/0 11/2021 Influenza Vaccine (#1) 2025 , 02/28/2023, 03/28/2022, Additional history exists Pneumococcal Vaccine: [...] 11:29 AM EDT) Protein, Ur 30 mg/dL [facility] Urine Protein/Creati nine Ratio 0.31(H) <=0.20 mg/mg creat [facility] Creatinine, Urine 96.0 mg/dL [facility] Urine specimen (specimen) Urine specimen obtained by clean catch procedure / Unknown 01/06/2025 11:29 AM EDT 01/06/2025 3:13 PM EDT us Everton Riddle MD LAB URINE ORDERABLES Final Re sult [facility]) [facility] [address] [place] [address] * (ABNORMAL) Urine Albumin / Creatinine Ratio (01/06/2025 11:29 AM EDT) Creatinine, Urine 96.0 mg/dL [facility] Microalbumin Urine Random 87.3(H) 0.0 - 29.0 mg/L [facility] Microalbumin/Cre atinine Ratio 91(H) <30 mg/g creat [facility] Urine specimen (specimen) Urine specimen obtained by clean catch procedure / Unknown 01/06/2025 11:29 AM EDT 01/06/2025 3:13 PM EDT us Everton Riddle MD LAB URINE ORDERABLES Final Re sult [facility] [address] [place] [address] * (ABNORMAL) Renal Function Panel (01/06/2025 11:29 AM EDT) Sodium 141 133 - 145 mmol/L [facility] Potassium 4.4 3.5 - 5.5 mmol/L [facility] Chloride 106 96 - 110 mmol/L [facility] Bicarbonate (CO2) 30 21 - 32 mmol/L [facility] Anion Gap 5 3 - 11 [facility] Glucose 99 70 - 100 mg/dL [facility] BUN 13 5 - 25 mg/dL [facility] Creatinine Serum 0.98 0.50 - 1.10 mg/dL [facility] eGFR 58(L) >=60 mL/min/1. 73m2 [facility] Comment:Calculation based on the Chronic Kidney Disease Epidemiology Collaboration (CKD-EPI) equation refit without adjustment for race. BUN/Creatinine Ratio 13.3 [facility] Albumin 3.4 3.2 - 5.0 g/dL [facility] Calcium 9.3 8.5 - 10.5 mg/dL [facility] Phosphorus 4.0 2.5 - 4.5 mg/dL [facility] Blood specimen (specimen) Venous blood / Unknown 01/06/2025 11:29 AM EDT 01/06/2025 3:12 PM EDT us Everton Riddle MD LAB BLOOD ORDERABLES Final Re sult [facility] [address] [place] [address] from Last 3 Months Insurance [facility] ([id number]) Care Teams Floor Care Technician Relationship Specialty Start Date End Date Kathy Christopher MD [address] [place] [id number] PCP - General 09/10/24
--- OUTSIDE RECORDS SUMMARY | 2025-03-21 11:19 | XMS_ITS | Clinical Summary ---
Author Organization [facility] Address [address] [place] [address] Care Team Providers Care Feeder Catcher Name Role Phone Pito Thompson MD Primary Care Provider [phone] Allergies No known active allergies Medications aspirin enteric coated (ECOTRIN LOW STRENGTH) 81 MG EC tabletIndication s:Coronary artery disease involving big sandy heart, unspecified vessel or lesion type, unspecified [...] patient's age to complete this topic Insurance [facility] [place] OUT OF NETWORK Advance Directives * Full Code (Latest Code Status on File) Date Activated Date Inactivated Comments 07/24/2021 9:24 PM Care Teams Feeder Catcher Relationship Specialty Start Date End Date Pito Thompson MD [address] [place] [address] PCP - General 07/25/21
--- OUTSIDE RECORDS SUMMARY | 2025-03-21 11:19 | XMS_ITS | Clinical Summary ---
Author Organization [facility] Address [address] [place] [address] Care Team Providers Care Juvenile Justice Specialist Name Role Phone Kathy Christopher MD [...] age to complete this topic Care Teams Juvenile Justice Specialist Relationship Specialty Start Date End Date Kathy Christopher MD [address] [place] [address] PCP - General Internal Medicine 09/14/23
--- OUTSIDE RECORDS SUMMARY | 2025-03-21 11:19 | XMS_ITS | Encounter Summary ---
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) Social History Tobacco Use Types Packs/Day Years Used Date Smoking Tobacco: Never Smokeless Tobacco: Never Alcohol Use Standard Drinks/Week Comments Never 0 [...] Office Visit [facility] [address] [phone] Everton Riddle MD [address] [phone] 07/29/2025 1:00 PM EST Office Visit [facility] [address] [phone] Lizzie Magana ARNP [address] [phone] documented as of this encounter Visit Diagnoses Diagnosis Stage 3a chronic kidney disease (HCC) 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
== END 2025-03-21 10:26 | disposition home or self-care (01) ==
LOC: HO.MRI 10:25
PROVIDERS: Visit Provider Urology
DX: N36.9 Urethral disorder, unspecified (principal); N36.8 Other specified disorders of urethra; R93.5 Abnormal findings on diagnostic imaging of other abdominal regions, including retroperitoneum
CPT/HCPCS: 72197; A9585

== ENCOUNTER → 2025-03-21 10:33 | Outpatient (BNV) | payer OTHER, SELFPAY | PROVIDERS: Visit Provider Radiology Diagnostic Radiology | DX: R93.5 Abnormal findings on diagnostic imaging of other abdominal regions, including retroperitoneum (principal) | CPT/HCPCS: 72197 ==

== ENCOUNTER 2025-03-27 13:03 | Outpatient (AMB) | payer OTHER, SELFPAY ==
--- NOTE | 2025-03-27 13:29 | A.OFFVIS_ITS ---
Intake Visit Reasons: bladder abnormality Intake Note: Patient presents today for follow up on: retention, frequency, and uti Urology Medications: None Blood Thinner:Aspirin Antibiotic Allergy:Amoxicillin PVR:44ml Railroad Operator Required: No Accompanied by: Self / Same As Patient Allergies amoxicillin (Augmentin) Allergy (Mild, Verified 03/27/25 13:29) Rash clavulanic acid (From Augmentin) Allergy (Mild, Verified 03/27/25 13:29) RASH Medication List - Last Reconciled 03/27/25 by Jevon Dougherty MD albuterol sulfate 2.5 mg inhalation Q4H PRN albuterol sulfate 90 mcg/actuation 2 puffs PO Q4H PRN aspirin 81 mg PO DAILY atorvastatin 80 mg PO DAILY cetirizine 10 mg PO DAILY cholecalciferol (vitamin D3) 50 mcg PO DAILY 30 days dexlansoprazole 60 mg PO DAILY diclofenac sodium 1% 1 ea topical DAILY PRN doxycycline monohydrate 100 mg PO BID 10 days ertapenem 1 g IV DAILY fluticasone propionate 50 mcg/actuation 2 sprays intranasal DAILY 30 days ilwyjevawof-dnjukpcjp-isgvaljn 200-62.5-25 mcg (Trelegy Ellipta) 1 ea inhalation DAILY furosemide 20 mg PO DAILY isosorbide mononitrate ER 30 mg PO DAILY lidocaine 5% 1 patch topical DAILY melatonin 10 mg PO BEDTIME PRN metformin ER 500 mg PO DAILY metoprolol tartrate 50 mg PO BID nebulizers As directed nitroglycerin 0.4 mg sublingual ONCE PRN Oxygen Home Use As directed polyethylene glycol 3350 (Miralax) 17 grams PO DAILY sennosides (senna) 17.2 mg (2 x 8.6 mg) PO DAILY PRN 90 days HPI Comments Details: 03/27/2025-Shea is here for follow-up she had an MRI of the pelvis findings are notable for Nalini urethral abscess. History of Present Illness The patient is an 79-year-old female presenting with a periurethral abscess. MRI of the pelvis, which showed a collection in the urethra area. She is status post urethral dilation at which time there was some drainage of the abscess. The patient reports that the urine appears better, and she has less discomfort with urination. The patient has a history of diabetes mellitus, and cardiovascular disease and takes aspirin daily, along with isosorbide. The patient has previously stopped aspirin for procedures. Results - MRI of the pelvis: Notable for periurethral abscess Plan Periurethral Abscess - Schedule surgical drainage of the abscess in the operating room. - Send urine sample for culture - Stop aspirin 10 days prior to the procedure to minimize bleeding risk. - Coordinate with primary care for pre-operative evaluation including EKG and blood work. 10/30/24--Shea is a very pleasant 79 year old female patient of Dr. Rizo who was accompanied by her grand daughter at today's office visit. She has a history of pneumonitis, bronchopneumonia, chronic rhinitis, dizziness, headaches, hyperlipidemia, hypertension, diabetes, and COPD. She presents to the office today for follow-up of her lower urinary tract symptoms as well as recurrent urinary tract infections. In discussion with the patient today she reports having completed doxycycline as prescribed at her last office visit and continues with episodes of dysuria. She reports having seeked emergency room care services 2 weeks ago at which time she was told she had a question of a vaginal/urethral lesion. She reports being given medication for a potential yeast infection that she did not feel was helpful at all. In assessment of the patient today no lesions or open areas noted throughout the vagina and or urethra. The urethra does appear reddened. No foul-smell noted. In office urinalysis results reviewed with the patient today 3+ leukocytes negative nitrates. PVR 166 mL. Previous workup has included multiple urine cultures as noted and trended below: Urine culture: 11/10 < 10,000 cfu/ml Urine culture: 10/11 < 10,000 cfu/ml Urine culture: 09/10 ,10,000 to 50,000 cfu/ml Mixed bacterial ming Urine Culture: 08/13 Enterococcus faecalis Cirrus DX 10/11 noted E coli, Enterococcus faecalis, Staphylococcus spp., methicillin resistance Urine was collected via straight cath today and sent for microgen. We discussed low-dose terazosin to assist with incomplete bladder emptying as well as lifestyle modifications like double voiding to assist with incomplete bladder emptying. We also discussed application of Estrace cream to urethra as urethra was noted to be reddened. She otherwise denies hematuria, changes to urinary stream, flank pain, fever, and or chills. Previous workup has also included a retroperitoneal ultrasound 09/09 noting bilateral kidneys with no calculi, lesions, and or hydronephrosis. The bladder is partially distended. Bilateral ureteral jets are not demonstrated. Pre void bladder volume is approximately 140 mL. Postvoid bladder volume is approximately 40 mL. We discussed potential near future in office cystoscopy for further assessment evaluation She otherwise offers no issues or concerns at this time. [facility] Medical History CKD (chronic kidney disease) stage 3, GFR 30-59 ml/min Obesity (BMI 30.0-34.9) Chronic respiratory failure Asthma-COPD overlap syndrome Incontinence in female History of adenomatous polyp of colon Pneumonitis Bronchopneumonia Hypogammaglobulinemia Chronic rhinitis Dizziness Headache Hyperlipidemia HTN (hypertension) Diabetes COPD (chronic obstructive pulmonary disease) Surgical History S/P right coronary artery (RCA) stent placement H/O colonoscopy History of foot surgery History of toe surgery History of bunionectomy Family History Mother No problems noted. Father No problems noted. 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 services: Yes (COLLECTION COORDINATOR) Alcohol intake: never Comment: refusing the alarms Patient Tobacco Use Status: Former Tobacco user Tobacco use type: Cigarette Cigarettes Per Day: 0.5 Years Smoked: 40 Second Hand Smoke Exposure: No Advance Directives Date on File: 10/03/23 service: No Current occupational status: retired Sexual orientation: Straight/Heterosexual Gender identity: Female Review of Systems Const All systems reviewed & are unremarkable except as noted in HPI and below Reports no additional complaints Eyes Reports no additional complaints ENT Reports no additional complaints Card Reports no additional complaints Resp Reports no additional complaints GI Reports no additional complaints Reports as per HPI Musc Reports no additional complaints Skin/Breast Reports system reviewed and no additional complaints, except as documented Neuro Reports no additional complaints Psych Reports no additional complaints Endo Reports no additional complaints Pradeep/Lymph Reports no additional complaints Aller/Immun Reports no additional complaints Office Procedures Post Void Residual Post Residual Void Post Void Residual (PVR): 44 [id number] Void Residual by ultrasound Results AMB Urinalysis, Automated UA Leukoctes 0 Haritha/uL Last Edit by Crystal Long on 03/27/25 16:28 UA Nitrite Negative Last Edit by Crystal Long on 03/27/25 16:28 UA Urobilinogen 0.2 mg/dL Last Edit by Crystal Long on 03/27/25 16:28 UA Protein 15 mg/dL Last Edit by Crystal Long on 03/27/25 16:28 UA pH 6.0 Last Edit by Crystal Long on 03/27/25 16:28 UA Blood 25 Jefe/uL Last Edit by Crystal Long on 03/27/25 16:28 UA Specific [place] 1.015 Last Edit by Crystal Long on 03/27/25 16:28 UA Ketone Negative Last Edit by Crystal Long on 03/27/25 16:28 UA Bilirubin 0 mg/dL Last Edit by Crystal Long on 03/27/25 16:28 UA Glucose 0 mg/dL Last Edit by Crystal Long on 03/27/25 16:28 Results Reviewed Results Reviewed: Laboratory Last Values Urine pH (Auto) 6.0 03/27/25 16:07 Specific [place] (Auto) 1.015 03/27/25 16:07 Urine Protein (Auto) 15 mg/dL 03/27/25 16:07 Glucose (UA)(Auto) 0 mg/dL 03/27/25 16:07 Urine Ketones (Auto) Negative 03/27/25 16:07 Urine Blood (Auto) 25 Jefe/uL 03/27/25 16:07 Urine Nitrite (Auto) Negative 03/27/25 16:07 Urine Bilirubin (Auto) 0 mg/dL 03/27/25 16:07 Urine Urobilinogen (Auto) 0.2 mg/dL 03/27/25 16:07 Leukocyte Esterase (Auto) 0 Haritha/uL 03/27/25 16:07 Date of Service: 03/21/25 Reason for Exam: R93.5 - Abnormal findings on diagnostic imaging of other abdominal regio... EXAMINATION: MR PELVIS WITHOUT THEN WITH IV CONTRAST HISTORY: R93.5 - Abnormal findings on diagnostic imaging of other abdominal region.... TECHNIQUE: Axial T1, fat-suppressed T1, and fat suppressed T2, and sagittal and coronal T2-weighted MR images of the pelvis were obtained. Subsequently, sagittal and axial fat-suppressed T1-weighted images were obtained after the intravenous administration of 8 mL Gadavist. COMPARISON: Correlation is made with a CT of the pelvis dated 02/15/2025. FINDINGS: The uterus measures approximately 6.5 x 3.1 x 4.0 cm. There are fundal fibroids measuring 1.1 and 0.7 cm. The junctional zone is not thickened. The endometrium is unremarkable. There are nabothian cysts in the cervix. The cervical stroma is preserved. The right ovary is unremarkable. The left ovary is not definitely identified. When compared to the prior CT of the pelvis, the fluid collection inferior to the urinary bladder is much smaller in size and demonstrates enhancement of the wall. Findings are most compatible with a collapsed periurethral abscess. The residual fluid collection measures approximately 2.9 x 1.7 x 1.1 cm and is predominantly located to the right and posterior to the urethra. No ascites or pelvic lymphadenopathy is identified. The visualized bones demonstrate normal marrow signal intensity. IMPRESSION: Findings consistent with a partially collapsed periurethral abscess as described. Date of Service: 09/06/23 EXAMINATION: US RETROPERITONEAL COMPLETE (RENAL) FINDINGS: RIGHT KIDNEY: 9.2 x 5.4 x 4.7 cm (SAG x AP x TRV). The kidney is normal in size and contour. Increased cortical echogenicity. Renal cortical thickness is normal. No calculi or focal parenchymal lesions. No hydronephrosis. LEFT KIDNEY: 9.2 x 3.8 x 3.8 cm (SAG x AP x TRV). The kidney is normal in size and contour. Increased cortical echogenicity. Renal cortical thickness is normal. No calculi or focal parenchymal lesions. No hydronephrosis. BLADDER: Partially distended. Bilateral ureteral jets are not demonstrated. Prevoid bladder volume is 142 mL. Postvoid bladder volume is 42.5 mL. IMPRESSION: 1. No nephrolithiasis or hydronephrosis. 2. Increased cortical echogenicity of the bilateral kidneys suggesting chronic medical renal disease. 3. Mildly increased postvoid residual volume in the urinary bladder. Assessment & Plan Assessment & Plan (1) Lower urinary tract symptoms: Code(s): R39.9 - Unspecified symptoms and signs involving the genitourinary system Category: Medical (2) Incomplete bladder emptying: Code(s): R33.9 - Retention of urine, unspecified Category: Medical (3) Periurethral abscess: Code(s): N34.0 - Urethral abscess Category: Medical Plan Periurethral Abscess - Schedule surgical drainage of the abscess in the operating room. - Send urine sample for culture - Stop aspirin 10 days prior to the procedure to minimize bleeding risk. - Coordinate with primary care for pre-operative evaluation including EKG and blood work. Orders: Orders AMB Urinalysis Automated Today R33.9 - Retention of urine, unspecified, R39.9 - Unspecified symptoms and signs involving the genitourinary system AMB Post Void Residual by ultrasound Today R33.9 - Retention of urine, unspecified, R39.9 - Unspecified symptoms and signs involving the genitourinary system Patient Instructions: The patient had an opportunity to ask questions regarding treatment plan. The patient expressed understanding and agreement with the above treatment plan. The patient is aware they should contact our office by phone for worsening of their current condition or the appearance of new symptoms. Compliance is encouraged with any medications and followup testing that is ordered. It is a privilege to be allowed the opportunity to participate in the urologic care of your patient. If you have any questions or concerns regarding treatment for the above conditions please do not hesitate to contact me. The office telephone contact is [phone]. This note is constructed in part using voice recognition software. While every effort has been made to ensure accuracy explosive operator errors may have been included. Yours sincerely, Jevon Dougherty MD Scribe Plan - Not visible on output: Patient was informed and verbally consented to the use of an ambient scribe for clinic note documentation during this visit. Coding Level of Care Code Est Pt Level 4 (94933) Diagnoses Lower urinary tract symptoms R39.9 Incomplete bladder emptying R33.9 Periurethral abscess N34.0 CPT Codes Post Residual Void - PVR CPT Code: 05837-Jqjo Void Residual by ultrasound ([id number])
== END 2025-03-27 14:17 | disposition home or self-care (01) ==
LOC: HO.HUSH 13:04
PROVIDERS: Visit Provider Urology
DX: R39.9 Unspecified symptoms and signs involving the genitourinary system (principal); R33.9 Retention of urine, unspecified; N34.0 Urethral abscess
CPT/HCPCS: 99214

== ENCOUNTER → 2025-03-27 13:03 | Outpatient (BNVA) | payer OTHER, SELFPAY | PROVIDERS: Visit Provider Urology | DX: N34.0 Urethral abscess (principal); R39.9 Unspecified symptoms and signs involving the genitourinary system; R33.9 Retention of urine, unspecified | CPT/HCPCS: 51798; 81003; 99212 ==

== ENCOUNTER → 2025-04-15 09:52 | Outpatient (BNV) | payer OTHER, SELFPAY | PROVIDERS: Visit Provider Urology | DX: N34.0 Urethral abscess (principal) | CPT/HCPCS: 57135 ==

== ENCOUNTER → 2025-04-15 09:52 | Day surgery (SDC) | payer OTHER, SELFPAY ==
--- OUTSIDE RECORDS SUMMARY | 2025-04-03 15:32 | XMS_ITS | Clinical Summary ---
Author Organization [facility] Address [address] [place] [address] Phone Care Team Providers Care Radiocommunications Technician Name Role Phone Kathy Perez MD [...] 32.9 in adult 04/23/2024 Mucopurulent chronic bronchitis (CMS/[facility] V24, CM S/[facility] V28) 05/24/2023 Palpitations 05/24/2023 Chronic heart failure with p reserved ejection fraction (CMS/[facility] V24, CMS/[facility] V28) 11/24/2022 Assessment & Plan [...] without long-term current use of insulin ([facility] V24, [facility] V28) 11/04/2019 Mammographic microcalcification 01/10/2019 Hearing decreased, bilateral 12/18/2018 COPD (chronic obstructive pu lmonary disease) ([facility] V24, [facility] V28) 12/10/2018 Assessment & Plan (07/30/2024 3:00 PM EST): Recent exacerbation, was evaluated in the emergency. Started on prednisone. Currently stable. Supplemental oxygen dependent 12/10/2018 Obstructive sleep apnea 11/21/2018 Overview (04/23/2024): [facility] Home Sleep Apnea Test: Date 11/18/2018; Wt 192#; BMI 33; HAYLEY 16, AI 1; HI 14; Unclassified apneas 0; Obstructive apneas 10; Central apneas 0; Mixed apneas 0; hypopneas 126; average oxygen saturation 88% (lowest 73% with saturations <88% for 5% or more of study) [facility] Polysomnogram treatment study. Date [...] kidney disease) stage 3, GFR 30-59 ml/min ([facility] V24, [facility] V28) 05/31/2017 Assessment & Plan (07/30/2024 3:00 PM EST): GFR around 50. Stable over the last year. Encouraged to avoid nephrotoxics, good control of diabetes and hypertension were discussed with the patient. Iron deficiency anemia due to chronic blood loss 08/18/2016 IBS (irritable bowel syndrome) 03/25/2016 Recurrent HSV (herpes simplex virus) 12/11/2015 Diabetes mellitus type 2 wit h neurological manifestations ([facility] V24, [facility] V28) 08/01/2015 Overview (04/23/2024): A1C [...] x1 06/2015 Coronary artery disease invo [place]ving [place] coronary artery of [place] heart without angina pectoris 01/21/2015 Overview (04/23/2024): [...] Gastroparesis 07/17/2012 Overview (04/23/2024): Dr. Stephenson at [address] [place] [address] GERD (gastroesophageal reflux disease) 3 Insomnia 07/17/2012 [...] Encounters Date Type Department Care Team Description 04/01/2025 Telephone Adult Medicine [address] [phone] Jayla Wilkins [place] 03/24/2025 Results Follow-Up [address] [phone] Kathy Perez MD 03/13/2025 6:23 PM EDT - 03/13/2025 11:59 PM EDT Hospital Encounter [facility] [address] [place] [address] Nonintractable headache, unspecified chronicity pattern, unspecified headache type Discharge Disposition: Home or Self Care 03/06/2025 1:30 PM EDT Office Visit Adult [address] [phone] Kathy Perez MD Nonintractable headache, unspecified chronicity pattern, unspecified headache type (Primary Dx); Recurrent UTI (urinary tract infection); 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 V24, CMS/HCC V28); Screening for depression 03/05/2025 Telephone Adult Medicine [address] [phone] Kathy Perez MD 02/26/2025 Telephone Adult Medicine [address] [phone] Kathy Perez MD 02/24/2025 Telephone Adult Medicine [address] [phone] Kathy Perez MD 02/21/2025 Telephone Adult Medicine [address] [phone] Kathy Perez MD 02/21/2025 Telephone Adult Medicine [address] [phone] Kathy Perez MD 02/11/2025 11:40 AM EDT Anesthesia Event [facility] [address] [place] [address] Rod Gill MD 02/11/2025 11:05 AM EDT - 02/11/2025 11:59 PM EDT Hospital Encounter [facility] Xray [address] [place] [address] Pain Discharge Disposition: Home or Self Care 02/11/2025 9:42 AM EDT - 02/11/2025 11:59 PM EDT Hospital Encounter [facility] [address] [place] [address] Marcus Murcia DO Steele, Matthew G, TOOL DRESSER Rod Gill MD Radiculopathy, cervical region Discharge Disposition: Home or Self Care 01/24/2025 Telephone Adult Medicine [address] [phone] Kathy Perez MD 01/23/2025 Telephone Adult Medicine [address] [phone] Kathy Perez MD 01/23/2025 Telephone Adult Medicine [address] [phone] Ana Conte, LAURA 01/20/2025 Telephone Adult Medicine [address] [phone] Kathy Perez MD 01/20/2025 Telephone Adult Medicine [address] [phone] Kathy Perez MD 01/06/2025 11:20 AM EDT Lab Draw [address] Recurrent UTI (urinary tract infection); Chronic kidney disease, stage 3a ([facility], [facility] V28); Renal osteodystrophy; Type 2 diabetes mellitus with diabetic chronic kidney disease ([facility], [facility] V28) 01/06/2025 10:30 AM EDT Office Visit Adult Medicine [address] [phone] Kathy Perez MD Hospital discharge follow-up (Primary Dx); Recurrent UTI (urinary tract infection); Type 2 diabetes mellitus without complication, without long-term current use of insulin ([facility], [facility] V[facility]); 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 Normal Esophagus and duodenum. UPPER GASTROINTESTINAL ENDOSCOPY 2012 PROCEDURE: SD UPPER GI ENDOSCOPY PERFORMED; COMMENT: FOR GERD BLADDER SUSPENSION 05/29/2018 PROCEDURE: HISTORICAL BLADDER SUSPENSION CYSTOSCOPY 03/18/2019 PROCEDURE: HISTORICAL CYSTOSCOPY; COMMENT: Normal COLONOSCOPY 06/2005 PROCEDURE: HISTORICAL COLONOSCOPY; COMMENT: tubular adenoma COLONOSCOPY 06/2010 PROCEDURE: HISTORICAL COLONOSCOPY; COMMENT: negative COLONOSCOPY 12/16/2015 PROCEDURE: HISTORICAL COLONOSCOPY; COMMENT: tubular adenoma CARDIAC CATHETERIZATION 09/26/2014 PROCEDURE: HISTORICAL CARDIAC CATH; COMMENT: RCA stent [facility], Dr Hernandez UPPER GASTROINTESTINAL ENDOSCOPY 08/18/2004 PROCEDURE: SD UPPER GI ENDOSCOPY PERFORMED FOOT SURGERY 12/2013 Left PROCEDURE: HISTORICAL FOOT SURGERY; COMMENT: for second toe arthroplasty SHOULDER SURGERY Left PROCEDURE: HISTORICAL SHOULDER SURGERY; COMMENT: Arthroscopy with Dr. Berg KNEE SURGERY Left PROCEDURE: HISTORICAL KNEE SURGERY; COMMENT: Arthroscopy Medical History Medical History Date Comments Hypertension DX:Hypertension COPD (chronic obstructive pu lmonary disease) ([facility] V24, [facility] V28) DX:COPD (chronic o bstructive pulmonary disease) (HCC) Heart failure (CMS/[facility] V24, [facility] V28) DX:Heart failure (HCC) Diabetes mellitus ([facility] V 24, [facility] V28) DX:Diabetes mellitus ([facility]) Asthma 07/17/2012 DX:Asthma HTN (hypertension) [...] mellitus type 2 wit h neurological manifestations ([facility]/HCC V24, CMS/HCC V28) 08/01/2015 DX:Diabetes mellitus type [...] 12:30 PM EST Office Visit Adult Medicine [address] [phone] Kathy Perez MD [address] [place] [address] Health Maintenance Due Date Last Done Comments [...] Procedure Name Priority Date/Time Associated Diagnosis Comments MR BRAIN WO CONTRAST Routine 03/13/2025 7:59 PM EDT Nonintractable headache, unspecified chronicity pattern, unspecified headache type EXTERNAL XRAY REPORT Routine 02/24/2025 11:01 AM [...] 11:03 AM EDT Coronary artery disease involving [place] coronary artery of [place] heart without angina pectoris Hyperlipidemia, unspecified hyperlipidemia type DEPRESSION SCREENING Routine 03/26/2024 FALLS RISK ASSESSMENT Routine 03/26/2024 DIABETES FOOT EXAM Routine 12/04/2023 DIABETES EYE EXAM Routine 11/28/2023 from Last 3 Months or Most Recently Relevant to Health Maintenance Results * MR Brain wo Contrast (03/13/2025 7:59 PM EDT) Anatomical Region Laterality Modality Head and Neck Magnetic Resonan ce 03/22/2025 8:44 AM EDT Impressions 03/22/2025 9:27 AM EDT No acute infarct, mass effect, or intracranial hemorrhage. Stable exam compared to 2020. -------- FINAL REPORT -------- Dictated By: ZACH CHARLES Dictated Date: 03/22/2025 08:44 ET Assigned Physician: ZACH CAHRLES Reviewed and Electronically Signed By: ZACH CHARLES Signed Date: 03/22/2025 09:27 ET Workstation ID: [id number] Transcribed By: Self Edit Transcribed Date: 03/22/2025 08:44 ET Narrative 03/22/2025 9:27 AM EDT PROCEDURE: Brain MRI INDICATION: Headache TECHNIQUE: Multiplanar, multisequence MRI of the brain Without contrast. COMPARISON: 02/26/2021 FINDINGS: No acute infarct, mass effect, or intracranial hemorrhage. Sella and foramen magnum are within normal limits. Mild chronic small vessel ischemic changes throughout the supratentorial white matter are stable compared to 2020. Brain parenchyma is otherwise normal in signal. No abnormal intracranial susceptibility artifact. Ventricles, sulci, and cisterns are normal in size and configuration. No hydrocephalus. Major intracranial arterial flow voids are normal. Sinuses and mastoid air cells are clear. Orbits and extracranial soft tissues are normal. No marrow replacing lesions seen throughout the calvarium. Unchanged benign hyperostosis frontalis. Procedure Note Zach Charles MD - 03/22/2025 PROCEDURE: Brain MRI INDICATION: Headache TECHNIQUE: Multiplanar, multisequence MRI of the brain Without contrast. COMPARISON: 02/26/2021 FINDINGS: No acute infarct, mass effect, or intracranial hemorrhage. Sella and foramen magnum are within normal limits. Mild chronic small vessel ischemic changes throughout the supratentorialwhite matter are stable compared to 2020. Brain parenchyma is otherwisenormal in signal. No abnormal intracranial susceptibility artifact. Ventricles, sulci, and cisterns are normal in size and configuration. Nohydrocephalus. Major intracranial arterial flow voids are normal. Sinuses and mastoid air cells are clear. Orbits and extracranial soft tissues are normal. No marrow replacing lesions seen throughout the calvarium. Unchangedbenign hyperostosis frontalis. IMPRESSION: No acute infarct, mass effect, or intracranial hemorrhage. Stable examcompared to 2020. -------- FINAL REPORT -------- Dictated By: ZACH CHARLES Dictated Date: 03/22/2025 08:44 ET Assigned Physician: ZACH CHARLES Reviewed and Electronically Signed By: ZACH CHARLES Signed Date: 03/22/2025 09:27 ET Workstation ID: [id number] Transcribed By: Self Edit Transcribed Date: 03/22/2025 08:44 ET Kathy Perez MD IMG MRI PROCEDURES Final Result * External Xray Report (02/24/2025 11:01 AM EDT) Anatomical Region Laterality Modality Radiographic Kayley ging Historical Provider IMG XR PROCEDURES Final R esult * POCT Glucose, blood (02/11/2025 9:52 AM EDT) Glucose POCT 94 70 - 100 mg/dL 02/11/2025 9:53 AM EDT [facility] Blood Capillary blood specimen / Unknown 02/11/2025 9:52 AM EDT 02/11/2025 9:54 AM EDT Rod Gill MD LAB POINT OF CARE TE ST DOCKED DEVICE UNSOLICITED RESULTS Final Result [facility]) [facility] [address] [place] [address], [place] [phone] * (ABNORMAL) Urinalysis with reflex microscopic and culture (01/06/2025 11:29 AM EDT) Specific [place] Urine 1.016 1.003 - 1.030 LAB URINALYSIS - AUTOMATED METHOD 01/06/2025 3:24 PM [facility] pH, Urine 6.0 5.0 - 8.0 pH LAB URINALYSIS - AUTOMATED METHOD 01/06/2025 3:24 PM [facility] Leukocytes, Urine Large(A) Negative LAB URINALYSIS - AUTOMATED METHOD 01/06/2025 3:24 PM [facility] Nitrite, Urine Negative Negative LAB URINALYSIS - AUTOMATED METHOD 01/06/2025 3:24 PM [facility] Protein, Urine 30(A) <=Trace mg/dL LAB URINALYSIS - AUTOMATED METHOD 01/06/2025 3:24 PM [facility] Glucose, Urine Negative Negative mg/dL LAB URINALYSIS - AUTOMATED METHOD 01/06/2025 3:24 PM [facility] Ketones, Urine Trace(A) Negative mg/dL LAB URINALYSIS - AUTOMATED METHOD 01/06/2025 3:24 PM [facility] Urobilinogen, Urine 1.0 0.2 - 1.0 mg/dL LAB URINALYSIS - AUTOMATED METHOD 01/06/2025 3:24 PM [facility] Bilirubin, Urine Negative Negative LAB URINALYSIS - AUTOMATED METHOD 01/06/2025 3:24 PM [facility] Blood, Urine Trace(A) Negative LAB URINALYSIS - AUTOMATED METHOD 01/06/2025 3:24 PM [facility] RBC, Urine 2.5 0 - 4 /HPF LAB URINALYSIS - AUTOMATED METHOD 01/06/2025 3:24 PM [facility] WBC, Urine 184.2(H) 0 - 4 /HPF LAB URINALYSIS - AUTOMATED METHOD 01/06/2025 3:24 PM EDT [facility] Squamous Epithelial, Urine 7 0 - 60 /LPF LAB URINALYSIS - AUTOMATED METHOD 01/06/2025 3:24 PM EDT [facility] Bacteria, Urine Negative Negative /HPF LAB URINALYSIS - AUTOMATED METHOD 01/06/2025 3:24 PM EDT [facility] Hyaline Casts, Urine 0.4 0 - 3 /LPF LAB URINALYSIS - AUTOMATED METHOD 01/06/2025 3:24 PM EDT [facility] Urine Urine specimen obtained by clean catch procedure / Unknown Non-blood Collection / Unknown 01/06/2025 11:29 AM EDT 01/06/2025 11:29 AM EDT Kathy Perez MD LAB URINE ORDERABL ES Final Result Performing Organization Address City/[facility]/ZIP Co de Phone Number [facility] [address] [place] [address], [place] [phone] * [place]mill[place] urine culture tube (01/06/2025 11:29 AM EDT) Extra Tube Hold for add-ons. 01/06/2025 4:01 PM EDT [facility] Comment:Auto resulted. Urine Urine specimen obtained by clean catch procedure / Unknown Non-blood Collection / Unknown 01/06/2025 11:29 AM EDT 01/06/2025 11:29 AM EDT Kathy Perez MD LAB URINE ORDERABL ES Final Result Performing Organization Address [facility]/ZIP Co de Phone Number [facility] [address] [place] [address], [place] [phone] * (ABNORMAL) CBC auto differential (01/06/2025 11:29 AM EDT) [facility] WBC 9.1 4.8 - 10.8 K/mcL LAB HEMETOLOGY METHOD 01/06/2025 4:06 PM [facility] RBC 3.70(L) 3.80 - 4.80 M/mcL LAB HEMETOLOGY METHOD 01/06/2025 4:06 PM [facility] Hemoglobin 11.0(L) 11.5 - 16.0 g/dL LAB HEMETOLOGY METHOD 01/06/2025 4:06 PM [facility] Hematocrit 35.0 35.0 - 47.0 % LAB HEMETOLOGY METHOD 01/06/2025 4:06 PM [facility] MCV 94.3 79.0 - 98.0 FL LAB HEMETOLOGY METHOD 01/06/2025 4:06 PM [facility] MCH 29.6 27.0 - 32.0 pcg LAB HEMETOLOGY METHOD 01/06/2025 4:06 PM [facility] MCHC 31.4(L) 32.0 - 37.0 g/dL LAB HEMETOLOGY METHOD 01/06/2025 4:06 PM [facility] RDW 16.1(H) 11.0 - 15.0 % LAB HEMETOLOGY METHOD 01/06/2025 4:06 PM [facility] Platelets 339 130 - 400 K/mcL LAB HEMETOLOGY METHOD 01/06/2025 4:06 PM [facility] MPV 11.0 7.0 - 11.0 FL LAB HEMETOLOGY METHOD 01/06/2025 4:[facility] NRBC 0.2 <1.0 % LAB HEMETOLOGY METHOD 01/06/2025 4:06 PM [facility] NRBC Absolute 0.02 <0.10 K/mcL LAB HEMETOLOGY METHOD 01/06/2025 4:06 PM [facility] Neutrophils Relative 56.5 % LAB HEMETOLOGY METHOD 01/06/2025 4:06 PM [facility] Lymphocytes Relative 29.6 % LAB HEMETOLOGY METHOD 01/06/2025 4:06 PM [facility] Monocytes Relative 11.1 % LAB HEMETOLOGY METHOD 01/06/2025 4:06 PM [facility] Eosinophils Relative 1.7 % LAB HEMETOLOGY METHOD 01/06/2025 4:06 PM [facility] Basophils Relative 0.3 % LAB HEMETOLOGY METHOD 01/06/2025 4:06 PM [facility] Immature Granulocytes Relative 0.8 % LAB HEMETOLOGY METHOD 01/06/2025 4:06 PM [facility] Neutrophils Absolute 5.12 1.50 - 7.00 K/mcL LAB HEMETOLOGY METHOD 01/06/2025 4:06 PM [facility] Lymphocytes Absolute 2.68 1.00 - 5.00 K/mcL LAB HEMETOLOGY METHOD 01/06/2025 4:06 PM [facility] Monocytes Absolute 1.01(H) 0.20 - 1.00 K/mcL LAB HEMETOLOGY METHOD 01/06/2025 4:06 PM [facility] Eosinophils Absolute 0.15 0.00 - 0.50 K/mcL LAB HEMETOLOGY METHOD 01/06/2025 4:06 PM [facility] Basophils Absolute 0.03 0.00 - 0.20 K/mcL LAB HEMETOLOGY METHOD 01/06/2025 4:06 PM [facility] Immature Granulocytes Absolute 0.07(H) 0.00 - 0.03 K/mcL LAB HEMETOLOGY METHOD 01/06/2025 4:06 PM [facility] Blood Venous blood specimen / Unknown Venipuncture / Unknown 01/06/2025 11:29 AM EDT 01/06/2025 11:29 AM EDT us Kathy Perez MD LAB BLOOD ORDERABL ES Final Result Performing Organization Address [facility]/ZIP Co de Phone Number [facility] [address] [place] [address], [place] [phone] * (ABNORMAL) Protein and creatinine with ratio, urine (01/06/2025 11:29 AM EDT) Protein, Urine 30 mg/dL LAB CHEMISTRY METHOD 01/06/2025 4:55 PM EDT [facility] Prot/Creat, Ur 0.31(H) <=0.20 mg/mg creat LAB CHEMISTRY METHOD 01/06/2025 4:55 PM EDT [facility] Creatinine, Urine 96.0 mg/dL LAB CHEMISTRY METHOD 01/06/2025 4:55 PM EDT [facility] Urine Urine specimen obtained by clean catch procedure / Unknown Non-blood Collection / Unknown 01/06/2025 11:29 AM EDT 01/06/2025 11:29 AM EDT us Everton Riddle MD LAB URINE ORDERABLES Final Re sult Performing Organization Address [facility]/ZIP Co de Phone Number [facility] [address] [place] [address], [place] [phone] * (ABNORMAL) Microalbumin creatinine urine ratio (01/06/2025 11:29 AM EDT) Creatinine, Urine 96.0 mg/dL LAB CHEMISTRY METHOD 01/06/2025 5:02 PM EDT [facility] Microalb, Ur 87.3(H) 0.0 - 29.0 mg/L LAB CHEMISTRY METHOD 01/06/2025 5:02 PM EDT [facility] Microalb/Crea t Ratio 91(H) <30 mg/g creat LAB CHEMISTRY METHOD 01/06/2025 5:02 PM EDT [facility] Urine Urine specimen obtained by clean catch procedure / Unknown Non-blood Collection / Unknown 01/06/2025 11:29 AM EDT 01/06/2025 11:29 AM EDT Everton Riddle MD LAB URINE ORDERABLES Final Re sult Performing Organization Address City/[facility]/ZIP Co de Phone Number [facility] [address] [place] [address], [place] [phone] * Culture urine (01/06/2025 11:29 AM EDT) Culture, Urine No growth 01/07/2025 10:14 AM EDT [facility] Urine Urine specimen obtained by clean catch procedure / Unknown Non-blood Collection / Unknown 01/06/2025 11:29 AM EDT 01/06/2025 3:24 PM EDT Kathy Perez MD LAB MICROBIOLOGY - GENERAL ORDERABLES Final Result Performing Organization Address [facility]/ZIP Co de Phone Number [facility] [address] [place] [address], [place] [phone] * (ABNORMAL) Renal function panel (01/06/2025 11:29 AM EDT) Sodium 141 133 - 145 mmol/L LAB CHEMISTRY METHOD 01/06/2025 4:52 PM EDT [facility] Potassium 4.4 3.5 - 5.5 mmol/L LAB CHEMISTRY METHOD 01/06/2025 4:52 PM EDT [facility] Chloride 106 96 - 110 mmol/L LAB CHEMISTRY METHOD 01/06/2025 4:52 PM EDT [facility] CO2 30 21 - 32 mmol/L LAB CHEMISTRY METHOD 01/06/2025 4:52 PM [facility] Anion Gap 5 3 - 11 LAB CHEMISTRY METHOD 01/06/2025 4:52 PM [facility] Glucose 99 70 - 100 mg/dL LAB CHEMISTRY METHOD 01/06/2025 4:52 PM [facility] BUN 13 5 - 25 mg/dL LAB CHEMISTRY METHOD 01/06/2025 4:52 PM [facility] Creatinine 0.98 0.50 - 1.10 mg/dL LAB CHEMISTRY METHOD 01/06/2025 4:52 PM [facility] eGFR 58(L) >=60 mL/min/1. 73m2 LAB CHEMISTRY METHOD 01/06/2025 4:52 PM [facility] Comment:Calculation based on the Chronic Kidney Disease Epidemiology Collaboration (CKD-EPI) equation refit without adjustment for race. BUN/Creatinine Ratio 13.3 LAB CHEMISTRY METHOD 01/06/2025 4:52 PM [facility] Albumin 3.4 3.2 - 5.0 g/dL LAB CHEMISTRY METHOD 01/06/2025 4:52 PM [facility] Calcium 9.3 8.5 - 10.5 mg/dL LAB CHEMISTRY METHOD 01/06/2025 4:52 PM [facility] Phosphorus 4.0 2.5 - 4.5 mg/dL LAB CHEMISTRY METHOD 01/06/2025 4:52 PM [facility] Blood Venous blood specimen / Unknown Venipuncture / Unknown 01/06/2025 11:29 AM EDT 01/06/2025 11:29 AM EDT us Everton Riddle MD LAB BLOOD ORDERABLES Final Re sult [facility] [address] [place] [address], [place] [phone] * Lipid panel with reflex to direct LDL (08/26/2024 11:03 AM EDT) Cholesterol 141 0 - 200 mg/dL LAB CHEMISTRY METHOD 08/26/2024 2:15 PM EDT [facility] Triglycerides 117 0 - 150 mg/dL LAB CHEMISTRY METHOD 08/26/2024 2:15 PM EDT [facility] HDL 55 >=40 mg/dL LAB CHEMISTRY METHOD 08/26/2024 2:15 PM EDT [facility] LDL Calculated 63 0 - 100 mg/dL LAB CHEMISTRY METHOD 08/26/2024 2:15 PM EDT [facility] VLDL Cholesterol Gus 23.4 mg/dL LAB CHEMISTRY METHOD 08/26/2024 2:15 PM EDT [facility] Non HDL Chol. (LDL+VLDL) 86 <145 mg/dL LAB CHEMISTRY METHOD 08/26/2024 2:15 PM EDT [facility] Chol/HDL Ratio 2.6 0.0 - 4.4 LAB CHEMISTRY METHOD 08/26/2024 2:15 PM EDT [facility] Blood Venous blood specimen / Unknown Venipuncture / Unknown 08/26/2024 11:03 AM EDT 08/26/2024 11:03 AM EDT Elisa Romero [facility] LAB BLOOD ORDERABLES Final Result [facility] [address] [place] [address], [place] [phone] * Hemoglobin A1c (08/26/2024 11:03 AM EDT) Hemoglobin A1C 6.4 <6.5 % LAB CHEMISTRY METHOD 08/26/2024 1:50 PM EDT [facility] Mean Bld Glu Estim. 137 mg/dL LAB CHEMISTRY METHOD 08/26/2024 1:50 PM EDT [facility] Blood Venous blood specimen / Unknown Venipuncture / Unknown 08/26/2024 11:03 AM EDT 08/26/2024 11:03 AM EDT Kathy Perez MD LAB BLOOD ORDERABL ES Final Result [facility] [address] [place] [address], [place] [phone] * Falls Risk Assessment (03/26/2024) [facility] Falls Risk Assessment Abstracted Result [facility] Provider HEALTH MAINTENANCE Final Result * Depression Screening (03/26/2024) [facility] Depression Screening Abstracted Result [facility] Provider HEALTH MAINTENANCE Final Result * Diabetes Foot Exam (12/04/2023) [facility] Diabetes: Annual Foot Exam Abstracted Result [facility] Provider HEALTH MAINTENANCE Final Result * Diabetes Eye Exam (11/28/2023) [facility] Diabetes: Annual Retina Eye Exam Abstracted Comment:External Completion of test per patient (Patient reports normal results) Result [facility] Provider HEALTH MAINTENANCE Final Result from Last 3 Months or Most Recently Relevant to Health Maintenance Insurance [employer] Member Subscriber Plan / Payer (Ef fective 2012-Present) Name:Shea Ramirez Relation to Subscriber:Self Name:Shea Ramirez Payer ID:[id number] Group ID:[id number] Type:Not on file Address: [address] [facility] [place] [id number] Care Teams Radiocommunications Technician Relationship Specialty Start Date End Date Kathy Perez MD [address] [place] [phone] PCP - General Internal Medicine 07/22/24
--- OUTSIDE RECORDS SUMMARY | 2025-04-03 15:32 | XMS_ITS | Encounter Summary ---
Author Organization [facility] Address [address] [place] [address] Care Team Providers Care Signal And Communications Maintainer Name Role Phone Kathy Perez MD Primary Care Prov ider Reason for Visit * Reason Onset Date Comments faxed order 04/01/2025 Abilio MILLS d/c report Encounter Details Date Type Department Care Team (Late st Contact Info) Description 04/01/2025 Telephone Adult Medicine [address] [phone] Jayla Wilkins MA Social History Tobacco Use Types Packs/Day [...] for your loved ones. For example, child attendant or elderly care for an older [...] as of this encounter Progress Notes * Jayla Wilkins MA - 04/01/2025 9:40 AM EDT Received orders from [facility] discharge summary report. Please sign and fax to [phone] documented in this encounter Plan of Treatment Upcoming Encounters Date Type Department Care Team (Late st Contact Info) Description 06/05/2025 12:30 PM EST Office Visit Adult Medicine [facility] [address] [place] [address] Kathy Perez MD [address] [place] [address] documented as of this encounter Visit Diagnoses Not on filedocumented in this encounter Additional Health Concerns Assessment Noted Time PHQ-9 Depression Total Score: 0 03/06/20 1:37 PM EDT documented as of this encounter Care Teams Signal And Communications Maintainer Relationship Specialty Start Date End Date Kathy Perez MD [address] [place] [address] PCP - General Internal Medicine 07/22/24 documented as of this encounter
--- OUTSIDE RECORDS SUMMARY | 2025-04-03 15:32 | XMS_ITS | Clinical Summary ---
Author Organization [facility] Address [address] [place] [address] Care Team Providers Care Pizza Baker Name Role Phone Kathy Christopher MD Primary [...] age to complete this topic Care Teams Pizza Baker Relationship Specialty Start Date End Date Kathy Christopher MD [address] [place] [address] PCP - General Internal Medicine 09/14/23
--- OUTSIDE RECORDS SUMMARY | 2025-04-03 15:32 | XMS_ITS | Data Portability ---
Author Organization [facility] [employer] Address [address] [place] [address] Care Team Providers Care Cytogenetics Laboratory Manager Name Role Phone [facility] Referring Provider [phone] HIM [facility] OTHER Assessment Encounter Date Assessment Date Assessment LastModified by Organization Details LastModified Time 04/20/2024 04/20/2024 I provided real -time medical direction via phone for this encounter and was available for additional phone-based assistance as needed. I have reviewed and agree with the Assessment and Plan as documented by the Software Development Project Manager. Patient given the opportunity to ask questions. [...] on metoprolol to for rate control. Per lands resource manager on the scene, vital signs are stable [...] have any evidence of volume overload per lands resource manager on the scene. She has no evidence [...] respiratory specimen 2022 023 [email or web address] Main - [facility], [address] [place] [address], [phone] 3 20:04:39 rapid flu (A+B) 2022 023 [email or web address] [facility] - [facility], [address] [place] [address], [phone] 3 20:04:40 rapid strep group A, throat 2022 023 [email or web address] [facility] - [facility], [address] [place] [address], [id number] 3 20:04:38 culture, urine 2022 023 CLEMENT [facility] (Centralized Electronic Ordering - All Locations), Patient Can Go To The Location Of Their Choice, [id number] 3 07:41:06 Referral None recorded. Procedures None recorded. Surgeries None recorded. Imaging None recorded. Medication Orders Levaquin 500 mg tablet [email or web address] [place] [address], [address] [place] [address], [address], 13:34:52 Patient TargetsNo targets recorded. Patient InstructionsNo instructions recorded. Reason for Referral None Reported. Results Created Date Observation Date Name Description Value Unit Range Abnormal Flag Note LastModifiedBy Organization Detail LastModifiedTime 09/28/19 23 09/27/2022 URINE CULTU RE specimen description URINE Not Available [facility] (Centralized Electronic Ordering - All Locations) Patient Can Go To The Location Of Their Choice, [id number] 09/29/2022 07:41:06 09/28/19 23 09/27/2022 URINE CULTU RE special requests NONE Not Available [facility] (Centralized Electronic Ordering - All Locations) Patient Can Go To The Location Of Their Choice, [address] 09/29/2022 07:41:06 09/28/19 23 09/29/2022 URINE CULTU RE culture NO GROWTH Not Available [facility] (Centralized Electronic Ordering - All Locations) Patient Can Go To The Location Of Their Choice, [facility] 09/29/2022 07:41:06 09/28/19 23 09/29/2022 URINE CULTU RE report status FINAL 2022 Not Available [facility] (Centralized Electronic Ordering - All Locations) Patient Can Go To The Location Of Their Choice, [facility] 09/29/2022 07:41:06 06/17/20 23 06/17/2023 rapid strep group A, throa t Strep negati ve Not Available [facility] ed [address] [place] [address], [address] [place] [address] 06/17/2023 20:04:20 06/17/20 23 06/17/2023 rapid flu (A+B) Flu negati ve Not Available [facility] ed [address] [place] [address], [address] [place] [address] 06/17/2023 20:04:18 06/17/20 23 06/17/2023 rapid SARS CoV 2 Ag, QL IA, respi rator y speci men rapid SARS CoV 2 Ag, QL IA, respiratory specimen negati ve Not Available [facility] ed [address] [place] [address], [address] [place] [address] 06/17/2023 20:04:15 Result Notes None recorded. Medical Equipment None Reported. Allergies Allergen ID Allergen Name Allergen Category Reaction Reaction Severity Criticality Documentation Date Start Date Code Code System Note Provider Name and Address Organization Details Recorded Time 7839 Product containin g penicilli n (product) medicatio n Not available Not available Not available 04/16/2024 15858 8001 SNOMED Not Available [facility] - production [...] % 98 % 95.7 [degF] 73 /min 73107.5 6 g 16 /min 125/67 mm[Hg] Not Available [facility] - production 3 13:30:35 Date Recorded Body weight Respiratory rate Heart rate Body height Body temperature Oxygen saturation Oxygen saturation in Arterial blood by Pulse oximetry Systolic And Diastolic Provider Name and Address Organization Details Last Updated DateTime 4 79852.5 6 g 18 /min 111 /min 162.56 cm 98.2 [degF] 94 % 94 % 117/66 mm[Hg] Not Available [facility] - production 4 14:23:22 Date Recorded Respiratory rate Body height Body weight Heart rate Oxygen saturation Oxygen saturation in Arterial blood by Pulse oximetry Body temperature Systolic And Diastolic Provider Name and Address Organization Details Last Updated DateTime 3 16 /min 162.56 cm 23207.5 6 g 90 /min 96 % 96 [...] Diagnosis SNOMED-CT Code Diagnosis ICD10 Code Diagnosis IMO Codes Diagnosis Note 9333 Praveen Valdovinos MD Main - [address] [phone] 09/27/2022 13:30:25 09/29/2022 10:29:50 Acute urinary tract infection 080083367 N39.0 66013 Petra Elmore MD Main - [facility] [address] [place] [phone] 06/17/2023 19:48:24 06/20/2023 12:24:39 Upper respiratory infection 26018273 J06.9 Evaluation in the field was performed by my lands resource manager colleague, as noted above, I provided real-time [...] shortness of breath, cough, chest pain, fever. 10273 Solange Casas MD Anne Fogarty [address] [place] [phone] 04/20/2024 14:23:19 04/20/2024 19:15:29 Decreased urine output 014739077 R34 Chronic ki dney disease stage 3 393155308 N18.30 Tachycardia 0539744 R00. 0 Health Concerns Section Related Observation LastModified by Organization Detai ls LastModified Time None Recorded Concern Status LastModified by Organization Details LastModified Time None Recorded Advance Directives Directive None Recorded Payers Insurance Date Sequence Insurance Name Policy Number Policy Wagner Covered Member ID Wagner Member ID Guarantor Name 06/17/2023 1 [facility] - DOS PRIOR TO 2022 - DUAL ELIGIBLE (MEDICARE REPLACEMENT/ADV ANTAGE - HMO) Shea Ramirez [id number] Shea Ramirez 04/20/2024 1 [facility] - DOS ON OR AFTER 2022 - DUAL ELIGIBLE - RETIREMENT OPTIONS AND ONE CARE (MEDICARE REPLACEMENT/ADV ANTAGE - HMO) Shea Ramirez [id number] Shea Ramirez Notes Date Note Type Note [...] . Member denies F/c/n/v/d Praveen Valdovinos MD [address] [place] [address],[address], [place], [phone], [facility] [employer] 09/27/2022 13:35:12 023 text/ht ml HPI: [...] process visit. ................................... ................................... ................................... ................................... . Software Development Project Manager Note From Max Clemens: Pt reports dry [...] . Disposition: Fulfilled Petra Elmore MD [address] [facility],[address], [place], [address], [facility] [employer] 06/17/2023 20:04:49 024 text/ht ml HPI: mbr with multiple complaints, states experienced SOB last night where she had decided to take a diuretic, denies any Urine output at this time questioning retention , but does mention changing briefs multiple times over night, denies any Abdominal pain pressure or discomfort, no LE edema CP/N/V. per mbr B/P 153/78 HR 111. mbr requesting [facility] for evaluation.Protocol Used: Urinary SymptomsProtocol-Based Disposition: Consider [facility], SECURED ENTRANCE MONITOR, MD/INSPECTOR WEIGHTS AND MEASURES triage, PCP, or ED /Urgent Care Visit [...] Comments: Reviewed HPI SEGMD: Visit closed by [facility] end of shift before medic note transferred into [place], so I entered it below: SummarySmartcare visit [...] this was present yesterday in visit with INSPECTOR WEIGHTS AND MEASURES as well. Pt afebrile. Lung sounds clear bilaterally. Pt concerned about possible cloudy urine as well. Pt was unable to provide urine specimen for testing. Consulted with [facility]. Casas who advised continuing to monitor symptoms. Reviewed red flags for ED. Pt education provided.Services ProvidedPatient EducationDispositionFulfilledWas patient sent to ED?[facility] consulted on the case?Yes - Solange Casas MD [address] [facility],[address], [place], [address], [employer] - [employer] 04/23/2024 15:04:20 OBGyn Episode No OBEpisode recorded.
--- OUTSIDE RECORDS SUMMARY | 2025-04-03 15:32 | XMS_ITS | Patient Health Record ---
Author Organization [facility] Address [address] [place] [address] Care Team Providers Care Beef Boner Name Role Phone Narciso MITTAL, Yomi Primary Care Provider Deion Melendrez Unavailable [phone] Reason For Referral No Information Medications Medication SIG (Take, Route, Fr equency, Duration) Notes Start Date End Date Status NexIUM 40 MG 1 capsule Orally BID -take 30-60 minutes before breakfast and supper; Duration: 30 day(s) 06/01/2011 Active MiraLax Miralax as directed-1 capful in 8 ounces water Orally once to three times a day as needed for constipation; Duration: 30 days 04/07/2011 Active Plan Of Treatment No Information Insurance Providers Payer Name Payer Address Payer Phone Subscriber Number Group Number Insured Name Patient Relationship to Insured Coverage Start Date Coverage End Date MEDICARE OF [place] [address] [place] [address] [phone] CARLOS ADHIKARI Self - patient is the insured MEDICAID OF [facility] [address] [place] [phone] CARLOS ADHIKARI Self - patient is the insured
--- OUTSIDE RECORDS SUMMARY | 2025-04-03 15:32 | XMS_ITS | Clinical Summary ---
Author Organization [facility] Address [address] [place] [address] Care Team Providers Care Control Systems Drafting Officer Name Role Phone Pito Thompson MD Primary Care Provider [phone] Allergies No known active allergies Medications aspirin enteric coated (ECOTRIN LOW STRENGTH) 81 MG EC tabletIndication s:Coronary artery disease involving [place] heart, unspecified vessel or lesion type, unspecified [...] es 65 and older) 2009 RSV Vaccine 50 years and old er and Patients (1 [...] Inactivated Comments 07/24/2021 9:24 PM Care Teams Control Systems Drafting Officer Relationship Specialty Start Date End Date Pito Thompson MD [address] [place] [address] PCP - General 07/25/21
--- NOTE | 2025-04-10 11:52 | HO.ANESPROP2 ---
Documented by User: Nancy Davila NP 04/10/25 11:58 HPI - Anesthesia Eval Consult details Narrative: 79 yr old female for Cystoscopy Vaginal Explorations, Excision Lesion Urethra s/p Cystoscopy, possible Bladder Biopsy 02/2025 with GA-LMA 4 Eval prior to 02/2025 procedure: DNR/DNI No CP, does get SOB, walks minimally with walker at home COPD/asthma: Chronic hypoxic respiratory failure due to COPD, stable on 2 L, sating at 96% S/P right coronary artery stent placement: no recent CP, echo from 2023 below, follows with ?[facility] Active Problems Active Problems: All Active Problems Periurethral abscess (Acute) Disorder of urethra (Acute) Near syncope (Acute) Dizziness (Acute) Displacement of peripherally inserted central catheter (PICC) (Acute) Fall (Acute) Cystitis (Acute) Dysuria (Acute) Abnormal CT scan, pelvis (Acute) UTI (urinary tract infection) (Acute) ESBL (extended spectrum beta-lactamase) producing bacteria infection (Acute) UTI due to extended-spectrum beta lactamase (ESBL) producing Escherichia coli (Acute) Cystitis (Acute) Acute effusion of left ear (Acute) Incomplete bladder emptying (Acute) Lower urinary tract symptoms (Acute) Vaginitis (Acute) Acute cystitis with hematuria (Acute) Back pain (Acute) Pneumonia (Acute) COPD with acute exacerbation (Acute) Chronic constipation (Acute) Personal history of colonic polyps (Acute) Degenerative disc disease, cervical (Acute) Intractable pain (Acute) Hyperglycemia due to diabetes mellitus (Acute) Viral sepsis (Acute) Severe sepsis (Acute) Fever (Acute) Cervical spinal stenosis (Acute) Cervical spondylosis (Acute) Neck pain (Acute) Urinary frequency (Acute) Flank pain (Acute) Sensation of pressure in bladder area (Acute) COVID-19 (Acute) Asthma-COPD overlap syndrome (Acute) H/O urinary retention (Acute) Mixed stress and urge urinary incontinence (Acute) Incontinence in female (Acute) Oxygen dependent (Acute) History of adenomatous polyp of colon (Acute) Encounter for screening colonoscopy (Acute) Pneumonitis (Acute) Urinary tract infection (Acute) Vertigo (Acute) Cystitis (Acute) Headache (Acute) Urinary urgency (Acute) Bronchopneumonia (Acute) Osteopenia (Acute) Menopausal state (Acute) Well woman exam (Acute) Bronchitis (Acute) Hoarseness (Acute) Hypogammaglobulinemia (Acute) Bleeding hemorrhoids (Acute) GERD (gastroesophageal reflux disease) (Acute) Abdominal bloating (Acute) Irritable bowel syndrome with constipation (Acute) Chronic rhinitis (Acute) COPD (chronic obstructive pulmonary disease) (Acute) Past Medical History Medical History CKD (chronic kidney disease) stage 3, GFR 30-59 ml/min Obesity (BMI 30.0-34.9) Chronic respiratory failure Asthma-COPD overlap syndrome Incontinence in female History of adenomatous polyp of colon Pneumonitis Bronchopneumonia Hypogammaglobulinemia Chronic rhinitis Dizziness Headache Hyperlipidemia HTN (hypertension) Diabetes COPD (chronic obstructive pulmonary disease) Family History Family History Mother No problems noted. Father No problems noted. Family history of problems with anesthesia: No Surgical History Surgical History Hx of cystoscopy (02/18/25) S/P right coronary artery (RCA) stent placement H/O colonoscopy History of foot surgery History of toe surgery History of bunionectomy History of Problems with Anesthesia: No Social History Social History Household Members: None Housing: Apartment Are you a primary personal care aid to a significant other at home: No Do you presently have visiting nurse or other home services: No Alcohol intake: never Comment: refusing the alarms Patient Tobacco Use Status: Former Tobacco user Tobacco use type: Cigarette Cigarettes Per Day: 0.5 Years Smoked: 40 Second Hand Smoke Exposure: No Use of substances other than those prescribed or required for medical reasons: No Have you been hit, kicked, punched, or otherwise hurt by someone within the past year? If so, by whom?: No Are you DNR?: No Advance Directives: No Advance Directives Information Provided: Yes Advance Directives on File: No Advance Directives Date on File: 10/03/23 Patient : No : No service: No Current occupational status: retired Sexual orientation: Straight/Heterosexual Gender identity: Female Meds Allergies Allergy/AdvReac Type Severity Reaction Status Date / Time amoxicillin (Augmentin) Allergy Mild Rash Verified 03/27/25 13:29 clavulanic acid (From Allergy Mild RASH Verified 03/27/25 13:29 Augmentin) Home Medications ?Medication ?Instructions ?Recorded ?Confirmed ?Last Taken ?Type cetirizine 10 mg tablet 10 mg PO DAILY 03/21/20 04/11/25 02/23/25 History nitroglycerin 0.4 mg sublingual 0.4 mg sublingual ONCE PRN Chest 03/21/20 04/11/25 06/18/24 History tablet Pain albuterol sulfate 2.5 mg/3 mL 2.5 mg inhalation Q4H PRN wheezing 04/28/20 04/11/25 06/18/24 History (0.083 %) solution for nebulization melatonin 10 mg tablet 10 mg PO BEDTIME PRN Sleep 08/19/21 04/11/25 06/18/24 History aspirin 81 mg tablet,delayed 81 mg PO DAILY 09/02/21 04/11/25 02/23/25 History release isosorbide mononitrate 30 mg 30 mg PO DAILY 09/02/21 04/11/25 02/23/25 History tablet,extended release 24 hr Oxygen Home Use 09/16/22 04/11/25 Unknown History nebulizers 09/16/22 04/11/25 Unknown History metformin 500 mg tablet,extended 500 mg PO DAILY 10/30/23 04/11/25 02/23/25 History release 24 hr metoprolol tartrate 50 mg tablet 50 mg PO BID 06/17/24 04/11/25 04/15/25 History atorvastatin 80 mg tablet 80 mg PO DAILY 06/20/24 04/11/25 02/23/25 History fluticasone fur. 200 mcg-umeclid 1 ea inhalation DAILY 12/27/24 04/11/25 02/23/25 History 62.5 mcg-vilant 25 mcg inhalat.powder (Trelegy Ellipta) furosemide 20 mg tablet 20 mg PO DAILY 12/27/24 04/11/25 02/23/25 History diclofenac sodium 1 % topical gel 1 ea topical DAILY PRN Pain (Scale 02/15/25 04/11/25 Unknown History Score 1-3) polyethylene glycol 3350 17 17 g PO DAILY 02/15/25 04/11/25 02/23/25 History gram/dose oral powder (Miralax) Assessment and Plan Assessment Anesthesia Assessment: Chart Reviewed Final Anesthetic Review Family History of Problems with Anesthesia: No History of Problems with Anesthesia: No Documented by User: Alberto Cheek MD 04/15/25 13:31 [facility] Past Medical History Medical History CKD (chronic kidney disease) stage 3, GFR 30-59 ml/min Obesity (BMI 30.0-34.9) Chronic respiratory failure Asthma-COPD overlap syndrome Incontinence in female History of adenomatous polyp of colon Pneumonitis Bronchopneumonia Hypogammaglobulinemia Chronic rhinitis Dizziness Headache Hyperlipidemia HTN (hypertension) Diabetes COPD (chronic obstructive pulmonary disease) Narrative: Echo from 2023 reviewed Family History Family History Mother No problems noted. Father No problems noted. Surgical History Surgical History Hx of cystoscopy (02/18/25) S/P right coronary artery (RCA) stent placement H/O colonoscopy History of foot surgery History of toe surgery History of bunionectomy Social History Social History Household Members: None Housing: Apartment Are you a primary personal care aid to a significant other at home: No Do you presently have visiting nurse or other home services: No Alcohol intake: never Comment: refusing the alarms Patient Tobacco Use Status: Former Tobacco user Tobacco use type: Cigarette Cigarettes Per Day: 0.5 Years Smoked: 40 Second Hand Smoke Exposure: No Use of substances other than those prescribed or required for medical reasons: No Have you been hit, kicked, punched, or otherwise hurt by someone within the past year? If so, by whom?: No Are you DNR?: No Advance Directives: No Advance Directives Information Provided: Yes Advance Directives on File: No Advance Directives Date on File: 10/03/23 Patient : No : No service: No Current occupational status: retired Sexual orientation: Straight/Heterosexual Gender identity: Female Meds Allergies Allergy/AdvReac Type Severity Reaction Status Date / Time amoxicillin (Augmentin) Allergy Mild Rash Verified 03/27/25 13:29 clavulanic acid (From Allergy Mild RASH Verified 03/27/25 13:29 Augmentin) Home Medications ?Medication ?Instructions ?Recorded ?Confirmed ?Last Taken ?Type cetirizine 10 mg tablet 10 mg PO DAILY 03/21/20 04/11/25 02/23/25 History nitroglycerin 0.4 mg sublingual 0.4 mg sublingual ONCE PRN Chest 03/21/20 04/11/25 06/18/24 History tablet Pain albuterol sulfate 2.5 mg/3 mL 2.5 mg inhalation Q4H PRN wheezing 04/28/20 04/11/25 06/18/24 History (0.083 %) solution for nebulization melatonin 10 mg tablet 10 mg PO BEDTIME PRN Sleep 08/19/21 04/11/25 06/18/24 History aspirin 81 mg tablet,delayed 81 mg PO DAILY 09/02/21 04/11/25 02/23/25 History release isosorbide mononitrate 30 mg 30 mg PO DAILY 09/02/21 04/11/25 02/23/25 History tablet,extended release 24 hr Oxygen Home Use 09/16/22 04/11/25 Unknown History nebulizers 09/16/22 04/11/25 Unknown History metformin 500 mg tablet,extended 500 mg PO DAILY 10/30/23 04/11/25 02/23/25 History release 24 hr metoprolol tartrate 50 mg tablet 50 mg PO BID 06/17/24 04/11/25 04/15/25 History atorvastatin 80 mg tablet 80 mg PO DAILY 06/20/24 04/11/25 02/23/25 History fluticasone fur. 200 mcg-umeclid 1 ea inhalation DAILY 12/27/24 04/11/25 02/23/25 History 62.5 mcg-vilant 25 mcg inhalat.powder (Trelegy Ellipta) furosemide 20 mg tablet 20 mg PO DAILY 12/27/24 04/11/25 02/23/25 History diclofenac sodium 1 % topical gel 1 ea topical DAILY PRN Pain (Scale 02/15/25 04/11/25 Unknown History Score 1-3) polyethylene glycol 3350 17 17 g PO DAILY 02/15/25 04/11/25 02/23/25 History gram/dose oral powder (Miralax) Exam Airway Mallampati Class: II TM Dist: <=3cm Neck ROM: Full Denture: Upper Heart: ok. see echo. Lungs: ok. breathing easy, Sat 97% on RA. Assessment and Plan Assessment Anesthesia Assessment: Anesthesia Plan Discussed Final Anesthetic Review NPO: Yes ASA Class: IV Final Preanesthetic Review: No Changes in Pt Med Stat, Meds/Allgs Chart Reviewed, Consent Obtained/Reviewed, Anes Risks/Benef Reviewed and DNR Form (If Appl.) Patient Risk: High Procedure Risk: Low Anesthetic Plan Anesthetic Plan: GA and Agree w/ Assess. and Plan Disposition: Standard PACU
[2025-04-15] VITALS (10 sets, daily range): BP systolic 132–159; BP diastolic 62–71; PULSE 69–84; RESP 16–18; TEMP 36.2–36.3; O2SAT 91–97; BMI 30.6
[2025-04-15] MEDS: Lactated Ringers 1,000 ML 100 ML IVCONT (10:36)
[2025-04-15 10:39] LABS: Glucose, Whole Blood 90 mg/dL (60-115)
--- NOTE | 2025-04-15 12:52 | MHC.SHP ---
Pre-Procedural Eval Section A - 24 Hr Update-Section A only Date of Service: 04/15/25 The patient is an INPATIENT: No Section B - Complete if H&P > 30 days Chief Complaint: Urethral abscess, periurethral cyst Allergies: Allergies Allergy/AdvReac Type Severity Reaction Status Date / Time amoxicillin (Augmentin) Allergy Mild Rash Verified 03/27/25 13:29 clavulanic acid (From Allergy Mild RASH Verified 03/27/25 13:29 Augmentin) Plan Diagnosis/Plan: Unchanged I have reviewed the history and physical and performed a pertinent physical examination on my patient. No changes have occurred unless specified. Vaginal exploration, excision periurethral cyst, cystoscopy Time Spent With Patient Time: Total time managing care of this patient today ____ minutes.
--- NOTE | 2025-04-15 12:53 | P.OP_ITS ---
Operative Note Operative Note Date of Service: 04/15/25 Narrative: PREOP DIAGNOSIS: Periurethral cyst POSTOP DIAGNOSIS: Periurethral cyst PROCEDURE: Cystoscopy excision of periurethral cyst SURGEON: Jevon Dougherty MD ANESTHESIA: General Indications: Claudette is an 79-year-old female who presented with periurethral abscess and symptoms of dysuria Details of procedure: The patient was brought into the operating room placed on the OR table in supine position. Cipro 400 mg IV and gentamicin 160 mg IV. General anesthesia was administered. The patient was repositioned into lithotomy position, prepped and draped in the usual sterile fashion. Time-out was done per protocol. A 22 fr cystoscope was placed transurethrally into the bladder. There was a defect noted in the urethra. Moderate trabeculations were seen in the bladder. There were no suspicious bladder lesions seen. The right and left ureteral orifices were along the trigone. The cystoscope was removed. A 16 Cambodian Qureshi was placed and clamped. Using the Lone star and weighted vaginal speculum to allow adequate visualization of the introitus. There was not a significant urethral bulge defect at this time. 1% lidocaine with epi was infiltrated into the anterior vaginal wall. An inverted U incision was made the vaginal mucosa was dissected and the cyst wall was identified and dissected free the cyst wall was opened and sent for pathology. The urethral was repaired using 3-0 Vicryl in a running fascia the vaginal wall was closed in interrupted using 3-0 Vicryl. The 16 Cambodian Qureshi was placed to gravity drainage. Complications: None EBL: minimal (<5 mL) Drains: 16 Cambodian Qureshi
[2025-04-15] MEDS: Gentamicin Sulfate 160 MG in 0.9 % Sodium Chloride 100 ML 100 MG IV (13:01)
== END | disposition home or self-care (01) ==
PROVIDERS: Visit Provider Urology
PROC: 0TJB8ZZ Inspection of Bladder, Via Natural or Artificial Opening Endoscopic (ICD-10-PCS; CPT 52000; principal; 2025-04-15 12:10)
PROC: (CPT 53230; 2025-04-15 12:10)
DX: N34.0 Urethral abscess (principal); N36.8 Other specified disorders of urethra; N32.89 Other specified disorders of bladder; R30.0 Dysuria; E11.22 Type 2 diabetes mellitus with diabetic chronic kidney disease; I12.9 Hypertensive chronic kidney disease with stage 1 through stage 4 chronic kidney disease, or unspecified chronic kidney disease; N18.9 Chronic kidney disease, unspecified; I25.10 Atherosclerotic heart disease of native coronary artery without angina pectoris; Z95.5 Presence of coronary angioplasty implant and graft; J44.9 Chronic obstructive pulmonary disease, unspecified; Z79.82 Long term (current) use of aspirin; Z79.51 Long term (current) use of inhaled steroids; Z79.84 Long term (current) use of oral hypoglycemic drugs; Z79.899 Other long term (current) drug therapy; Z88.1 Allergy status to other antibiotic agents; Z87.891 Personal history of nicotine dependence; Z98.890 Other specified postprocedural states
CPT/HCPCS: 53230; 82947; 88304; J0690; J0744; J1580; J2003; J2004; J2704; J3010

== ENCOUNTER 2025-05-09 15:20 | Outpatient (REF) | payer OTHER, SELFPAY | END 2025-05-09 15:21 | disposition home or self-care (01) | LOC: HO.LNP 15:20 | PROVIDERS: Visit Provider Urology | DX: N30.00 Acute cystitis without hematuria (principal); R33.9 Retention of urine, unspecified | CPT/HCPCS: 51798; 81003; 87086 ==

== ENCOUNTER 2025-05-09 15:20 | Outpatient (AMB) | payer OTHER, SELFPAY ==
--- OUTSIDE RECORDS SUMMARY | 2025-05-09 15:25 | XMS_ITS | Encounter Summary ---
Author Organization [facility] Address [address] [place] [address] Care Team Providers Care Anthropology Department Chair Name Role Phone Kameron Zuñiga MD Unavailable Katya Lopez NP Unavailable Unavailab le Kathy Christopher MD Primary Care Prov ider Be Pacheco NP Unavailable [phone] Maycol Infante MD Unavailable Unavailable Sebastian Martinez MD Unavailable UnavailEve Blackmon MD Unavailable Elisa Romero NP Unavailable [phone] Marcus Murcia DO Unavailable Unavailable Encounter Details Date Type Department Care Team Description 09/04/2023 Conservation Enforcement Officer Report Medical Records [address] [place] [id number] Lalitha Diego, [facility]- Social History Tobacco Use Types Packs/Day [...] on filedocumented in this encounter Care Teams Anthropology Department Chair Relationship Specialty Start Date End Date Kathy Christopher MD [address] [place] [address] [phone] PCP - General Internal Medicine 01/21/22 Kameron Zuñiga MD Miller Supervisor Cardiovascular Disease 08/04/21 Katya Lopez, IRMA Cardiology 08/04/21 01/30/24 Be Pacheco NP [address] [place] [address] Nurse Practitioner Cardiology 10/17/22 01/30/24 Maycol Infante MD [address] [place] [address] Specialist Pulmonology 10/19/22 Sebastian Martinez MD [address] [place] [address] Specialist Ophthalmology 03/21/23 Eve Juan MD [address] [place] [address] [place] [address] Specialist UROGYNECOLOGY 03/21/23 Elisa Romero NP [address] [place] [address] [place] [address] Cardiology 01/31/24 Marcus Murcia DO [address] [place] [address] [place] [address] Specialist Physiatry 03/26/24 documented as of this encounter
--- OUTSIDE RECORDS SUMMARY | 2025-05-09 15:25 | XMS_ITS | Encounter Summary ---
Author Organization [facility] Address [address] [place] [address] Care Team Providers Care Flight Crew Time Clerk Name Role Phone Wiley Thompson MD Primary Care Provider Kameron Cornejo MD Unavailable Katya Lpoez NP Unavailable Unavailab Kathy Haley MD Primary Care Prov ider Be Pacheco NP Unavailable [phone] Maycol Infante MD Unavailable Unavailable Sebastian Martinez MD Unavailable UnavailEve Blackmon MD Unavailable Elisa Romero NP Unavailable [phone] Marcus Murcia DO Unavailable Unavailable Encounter Details Date Type Department Care Team Description 09/02/2021 Lead Ruby On Rails Developer Report Medical Records [address] [place] [phone] Maycol Infante MD Social History Tobacco Use [...] on filedocumented in this encounter Care Teams Flight Crew Time Clerk Relationship Specialty Start Date End Date Wiley Thompson MD PCP - General Internal Medicine 06/04/14 01/20/22 Kathy Christopher MD [address] [place] [address] PCP - General Internal Medicine 01/21/22 Kameron Zuñiga MD Camper Assembler Cardiovascular Disease 08/04/21 Katya Lopez NP Cardiology 08/04/21 01/30/24 Be Pacheco NP [address] [place] [address] 60[address] Nurse Practitioner Cardiology 10/17/22 01/30/24 Maycol Infante MD [address] [place] [address] Specialist Pulmonology 10/19/22 Sebastian Martinez MD [address] [place] [address] Specialist Ophthalmology 03/21/23 Eve Juan MD [address] [place] [address] [place] [address] Specialist UROGYNECOLOGY 03/21/23 Elisa Romero NP [address] [place] [address] [place] [address] Cardiology 01/31/24 Marcus Murcia DO [address] [place] [address] [place] [address] Specialist Physiatry 03/26/24 documented as of this encounter
--- OUTSIDE RECORDS SUMMARY | 2025-05-09 15:25 | XMS_ITS | Encounter Summary ---
Author Organization [facility] Address [address] [place] [address] Care Team Providers Care Sampler Ovens Name Role Phone Wiley Thompson MD Primary Care Provider Kameron Cornejo MD Unavailable Katya Lopez NP Unavailable Unavailab Kathy Haley MD Primary Care Prov ider Be Pacheco NP Unavailable Maycol Infante MD Unavailable Unavailable Sebastian Martinez MD Unavailable UnavailEve Blackmon MD Unavailable Elisa Romero NP Unavailable [phone] Marcus Murcia DO Unavailable Unavailable Encounter Details Date Type Department Care Team Description 10/14/2021 Telephone Cardio PVCA Diag Testing [address] [place], [place] [phone] Kameron Zuñiga MD [address] [place] [address] [phone] Social History Tobacco Use Types Packs/Day Years [...] Shi, Could you please follow up with [facility] for this patients records? I do see her signed release scanned in the chart. She has called me 3 times and I dont see anything new in the charts from them. Thank you! documented in this encounter Plan of Treatment Not on file documented as of this encounter Visit Diagnoses Not on filedocumented in this encounter Care Teams Sampler Ovens Relationship Specialty Start Date End Date Wiley Thompson MD PCP - General Internal Medicine 06/04/14 01/20/22 Kathy Christopher MD [address] [place] [address] PCP - General Internal Medicine 01/21/22 Kameron Zuñiga MD Furniture Dipper Cardiovascular Disease 08/04/21 Katya Lopez NP Cardiology 08/04/21 01/30/24 Be Pacheco NP [address] [place] [address] Nurse Practitioner Cardiology 10/17/22 01/30/24 Maycol Infante MD [address] [place] [address] Specialist Pulmonology 10/19/22 Sebastian Maritnez MD [address] [place] [address] Specialist Ophthalmology 03/21/23 Eve Juan MD [address] [place] [address] [place] [address] Specialist UROGYNECOLOGY 03/21/23 Elisa Romero NP [address] [place] [address] [place] [address] Cardiology 01/31/24 Marcus Murcia DO [address] [place] [address] [place] [address] Specialist Physiatry 03/26/24 documented as of this encounter
--- OUTSIDE RECORDS SUMMARY | 2025-05-09 15:25 | XMS_ITS | Clinical Summary ---
Author Organization [facility] Address [address] [place] [address] Phone Care Team Providers Care Well Driller Name Role Phone Kathy Perez MD Primary [...] topically if needed (PAIN). 04/21/20 23 Active fluticasone-um eclidinium-janelle anterol (Trelegy Ellipta) 100-62.5-25 mcg inhaler Inhale by mouth 1 (one) time each day. 11/04/19 20 Active plecanatide (Trulance) 3 mg tablet Take 1 tablet (3 mg total) by mouth 1 (one) time each day. 02/11/20 Active azelastine (ASTELIN) 137 mcg (0.1 %) [...] EACH FLARE 12 tablet 09/27/19 25 Active metoprolol tartrate (LOPRESSOR) 50 mg [...] a day. 30 each 03/06/20 25 Active furosemide (LASIX) 20 mg tablet TAKE 2 TABLETS BY MOUTH EVERY DAY 60 tablet 11 04/07/20 25 Active cetirizine (ZyrTEC) 10 mg tablet TAKE 1 TABLET BY MOUTH EVERY DAY 90 tablet 1 04/07/20 25 Active isosorbide mononitrate (IMDUR) 30 mg 24 hr tablet TAKE 1 TABLET BY MOUTH EVERY DAY IN THE MORNING 90 tablet 04/28/20 25 Active isosorbide mononitrate (IMDUR) 30 mg 24 hr tablet TAKE 1 TABLET BY MOUTH EVERY DAY IN THE MORNING 90 tablet 3 05/09/20 24 025 Discontinued Active Problems Problem Noted Date Diagnosed Date Osteoarthritis 04/23/2024 Class 1 obesity due to exces s calories with serious comorbidity and body mass index (BMI) of 32.0 to 32.9 in adult 04/23/2024 Mucopurulent chronic bronchitis (CMS/HCC V24, CM S/HCC V28) 05/24/2023 Palpitations 05/24/2023 Chronic heart failure with p reserved ejection fraction (CMS/HCC V24, CMS/HCC V28) 11/24/2022 Assessment & Plan (06/04/2024 4:36 [...] Chest pain 11/18/2022 CHF (congestive heart failure) (CMS/[facility] V24, CMS /[facility] V28) 11/18/2022 Assessment & Plan (07/30/2024 3:00 [...] disease, without long-term current use of insulin ([facility] V24, [facility] V28) 11/04/2019 Mammographic microcalcification 01/10/2019 Hearing decreased, bilateral 12/18/2018 COPD (chronic obstructive pu lmonary disease) ([facility] V24, [facility] V28) 12/10/2018 Assessment & Plan (07/30/2024 3:00 PM EST): Recent exacerbation, was evaluated in the emergency. Started on prednisone. Currently stable. Supplemental oxygen dependent 12/10/2018 Obstructive sleep apnea 11/21/2018 Overview (04/23/2024): [facility] Home Sleep Apnea Test: Date 11/18/2018; Wt 192#; BMI 33; HAYLEY 16, AI 1; HI 14; Unclassified apneas 0; Obstructive apneas 10; Central apneas 0; Mixed apneas 0; hypopneas 126; average oxygen saturation 88% (lowest 73% with saturations <88% for 5% or more of study) [facility] Polysomnogram treatment study. Date [...] 3, GFR 30-59 ml/min ([facility] V24, [facility] V28) 05/31/2017 Assessment & Plan (07/30/2024 3:00 PM EST): GFR around 50. Stable over the last year. Encouraged to avoid nephrotoxics, good control of diabetes and hypertension were discussed with the patient. Iron deficiency anemia due to chronic blood loss 08/18/2016 IBS (irritable bowel syndrome) 03/25/2016 Recurrent HSV (herpes simplex virus) 12/11/2015 Diabetes mellitus type 2 wit h neurological manifestations ([facility] V24, [facility] V28) 08/01/2015 Overview (04/23/2024): A1C 6.5 09/28 [...] x1 06/2015 Coronary artery disease invo lving inupiat coronary artery of inupiat heart without angina pectoris 01/21/2015 Overview (04/23/2024): [...] Gastroparesis 07/17/2012 Overview (04/23/2024): Dr. Stephenson at [address] [place] [address] GERD (gastroesophageal reflux disease) 3 Insomnia 07/17/2012 [...] Encounters Date Type Department Care Team Description 04/29/2025 Telephone Adult Medicine [address] [phone] Ijeoma Diego [place] 04/29/2025 Telephone Adult Medicine [address] [phone] Kathy Perez MD 04/09/2025 Telephone Adult [address] [phone] Kathy Perez MD 04/01/2025 Telephone Adult Medicine [address] [phone] Jayla Wilkins [place] 03/24/2025 Results Follow-Up Adult [address] [phone] Kathy Perez MD 03/13/2025 6:23 PM EDT - 03/13/2025 11:59 PM EDT Hospital [address] [address] Nonintractable headache, unspecified chronicity pattern, unspecified headache type Discharge Disposition: Home or Self Care 03/06/2025 1:30 PM EDT Office Visit Adult [address] [phone] Kathy Perez MD Nonintractable headache, unspecified chronicity pattern, unspecified headache type (Primary Dx); Recurrent UTI (urinary tract infection); 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 V24, CMS/HCC V28); Screening for depression 03/05/2025 Telephone Adult Medicine [address] [phone] Kathy Perez MD 02/26/2025 Telephone Adult Medicine [address] [phone] Kathy Perez MD 02/24/2025 Telephone Adult Medicine [address] [phone] Kathy Perez MD 02/21/2025 Telephone Adult Medicine [address] [phone] Kathy Perez MD 02/21/2025 Telephone Adult Medicine [address] [phone] Kathy Perez MD 02/11/2025 11:40 AM EDT Anesthesia Event [facility] [address] [place] [id number] Rod Gill MD 02/11/2025 11:05 AM EDT - 02/11/2025 11:59 PM EDT Hospital Encounter [facility] [address] [place] [address] Pain Discharge Disposition: Home or Self Care 02/11/2025 9:42 AM EDT - 02/11/2025 11:59 PM EDT Hospital Encounter [facility] [address] [place] [address] Marcus Murcia DO Steele, Matthew G, CRNA Gomes, Sheldon B, MD Radiculopathy, cervical region Discharge Disposition: Home or Self Care from Last 3 Months Immunizations Immunization Administration Dates Next Due Influenza trivalent, 0.5mL ( Fluad) 65yo and older 03/26/2024,02/28/2023,03/28/2022,03/22,03/13/2019,03/02/2018,03/01/2017 ,03/30/2016 Influenza, Unspecified 03/10/2022,2020,02/24/2020,04/06,05/06/2014,03/05/2013 RecombineJ/InCast SARS-CoV-2 COVID -19, vector-nr, rS-Ad26, preservative free [...] PROCEDURE:TUBAL LIGATION OTHER SURGICAL HISTORY 2007 PROCEDURE: TN CORRECTION HAMMERTOE; COMMENT: FOOT SURGERY Left PROCEDURE: HISTORICAL FOOT SURGERY; COMMENT: 18 y/o bunionectomy UPPER GASTROINTESTINAL ENDOSCOPY 03/22/2012 PROCEDURE: TN UPPER GI ENDOSCOPY PERFORMED; COMMENT: Normal study UPPER GASTROINTESTINAL ENDOSCOPY 11/27/2015 PROCEDURE: TN UPPER GI ENDOSCOPY PERFORMED; COMMENT: Gastritis and polyp. Normal Esophagus and duodenum. UPPER GASTROINTESTINAL ENDOSCOPY 2012 PROCEDURE: TN UPPER GI ENDOSCOPY PERFORMED; COMMENT: FOR GERD BLADDER SUSPENSION 05/29/2018 PROCEDURE: HISTORICAL BLADDER SUSPENSION CYSTOSCOPY 03/18/2019 PROCEDURE: HISTORICAL CYSTOSCOPY; COMMENT: Normal COLONOSCOPY 06/2005 PROCEDURE: HISTORICAL COLONOSCOPY; COMMENT: tubular adenoma COLONOSCOPY 06/2010 PROCEDURE: HISTORICAL COLONOSCOPY; COMMENT: negative COLONOSCOPY 12/16/2015 PROCEDURE: HISTORICAL COLONOSCOPY; COMMENT: tubular adenoma CARDIAC CATHETERIZATION 09/26/2014 PROCEDURE: HISTORICAL CARDIAC CATH; COM[facility] UPPER GASTROINTESTINAL ENDOSCOPY 08/18/2004 PROCEDURE: TN UPPER GI ENDOSCOPY PERFORMED FOOT SURGERY 12/2013 Left PROCEDURE: HISTORICAL FOOT SURGERY; COMMENT: for second toe arthroplasty SHOULDER SURGERY Left PROCEDURE: HISTORICAL SHOULDER SURGERY; COMMENT: Arthroscopy with Dr. Berg KNEE SURGERY Left PROCEDURE: HISTORICAL KNEE SURGERY; COMMENT: Arthroscopy Medical History Medical History Date Comments Hypertension DX:Hypertension COPD (chronic obstructive pu lmonary disease) (CMS/HCC V24, CMS/[facility] V28) DX:COPD (chronic o bstructive pulmonary disease) (HCC) Heart failure (CMS/HCC V24, CMS/[facility] V28) DX:Heart failure (HCC) Diabetes mellitus ([facility] V 24, [facility] V28) DX:Diabetes mellitus (HCC) Asthma 07/17/2012 DX:Asthma [...] mellitus type 2 wit h neurological manifestations ([facility] V24, [facility] V28) 08/01/2015 DX:Diabetes mellitus type 2 with neurological manifestations ([facility]); COMMENT: A1C 6.5 09/28 transfer records Gastric [...] your loved ones. For example, early childhood services coordinator or elderly care for an older [...] Team (Late st Contact Info) Description 06/05/2025 1:15 PM EST Office Visit Adult Medicine [facility] [address], [place] [phone] Pau Shultz PA [address], [place] Health Maintenance Due Date Last Done Comments [...] BLOOD Routine 02/11/2025 9: 52 AM EDT MICROALBUMIN CREATININE URINE RATIO Routine 01/06/2025 11:29 AM EDT Chronic kidney disease, stage 3a (CMS/HCC V24, CMS/HCC V28) Renal osteodystrophy Type 2 diabetes mellitus with diabetic chronic kidney disease (CMS/HCC V24, CMS/HCC V28) RENAL FUNCTION PANEL Routine 01/06/2025 11:29 AM EDT Chronic kidney disease, stage 3a (CMS/HCC V24, CMS/HCC V28) Renal osteodystrophy Type 2 diabetes mellitus with diabetic chronic kidney disease (CMS/HCC V24, CMS/HCC V28) HEMOGLOBIN A1C Routine 08/26/2024 11:03 AM EDT Diabetes mellitus type 2 with neurological manifestations ([facility] V24, CMS/[facility] V28) LIPID PANEL WITH REFLEX TO DIRECT LDL Routine 08/26/2024 11:03 AM EDT Coronary artery disease involving inupiat coronary artery of inupiat heart without angina pectoris Hyperlipidemia, unspecified hyperlipidemia [...] Signed Date: 03/22/2025 09:27 ET Workstation ID: [id number] Transcribed By: Self Edit Transcribed Date: 03/22/2025 [...] Signed Date: 03/22/2025 09:27 ET Workstation ID: [id number] Transcribed By: Self Edit Transcribed Date: 03/22/2025 08:44 ET Kathy Perez MD IMG MRI PROCEDURES Final Result * External Xray Report (02/24/2025 11:01 AM EDT) Anatomical Region Laterality Modality Radiographic Kayley ging Historical Provider IMG XR PROCEDURES Final R esult * POCT Glucose, blood (02/11/2025 9:52 AM EDT) [facility] Glucose POCT 94 70 - 100 mg/dL 02/11/2025 9:53 AM EDT [facility] Blood Capillary blood specimen / Unknown 02/11/2025 9:52 AM EDT 02/11/2025 9:54 AM EDT Rod Gill MD LAB POINT OF CARE TE ST DOCKED DEVICE UNSOLICITED RESULTS Final Result [facility] [address] [place] [address], [place] [phone] * (ABNORMAL) Microalbumin creatinine urine ratio (01/06/2025 11:29 AM EDT) Creatinine, Urine 96.0 mg/dL LAB CHEMISTRY METHOD 01/06/2025 5:02 PM EDT [facility] Microalb, Ur 87.3(H) 0.0 - 29.0 mg/L LAB CHEMISTRY METHOD 01/06/2025 5:02 PM EDT [facility] Microalb/Crea t Ratio 91(H) <30 mg/g creat LAB CHEMISTRY METHOD 01/06/2025 5:02 PM EDT [facility] Urine Urine specimen obtained by clean catch procedure / Unknown Non-blood Collection / Unknown 01/06/2025 11:29 AM EDT 01/06/2025 11:29 AM EDT Everton Riddle MD LAB URINE ORDERABLES Final Re sult [facility] [address] [place] [address], * (ABNORMAL) Renal function panel (01/06/2025 11:29 AM EDT) Sodium 141 133 - 145 mmol/L LAB CHEMISTRY METHOD 01/06/2025 4:[address] [facility] Potassium 4.4 3.5 - 5.5 mmol/L LAB CHEMISTRY METHOD 01/06/2025 4:[address] [facility] Chloride 106 96 - 110 mmol/L LAB CHEMISTRY METHOD 01/06/2025 4:[address] [facility] CO2 30 21 - 32 mmol/L LAB CHEMISTRY METHOD 01/06/2025 4:[address] [facility] Anion Gap 5 3 - 11 LAB CHEMISTRY METHOD 01/06/2025 4:[address] [facility] Glucose 99 70 - 100 mg/dL LAB CHEMISTRY METHOD 01/06/2025 4:[address] [facility] BUN 13 5 - 25 mg/dL LAB CHEMISTRY METHOD 01/06/2025 4:[address] [facility] Creatinine 0.98 0.50 - 1.10 mg/dL LAB CHEMISTRY METHOD 01/06/2025 4:[address] [facility] eGFR 58(L) >=60 mL/min/1. 73m2 LAB CHEMISTRY METHOD 01/06/2025 4:[address] [facility] Comment:Calculation based on the Chronic Kidney Disease Epidemiology Collaboration (CKD-EPI) equation refit without adjustment for race. BUN/Creatinine Ratio 13.3 LAB CHEMISTRY METHOD 01/06/2025 4:52 PM EDT [facility] Albumin 3.4 3.2 - 5.0 g/dL LAB CHEMISTRY METHOD 01/06/2025 4:52 PM EDT [facility] Calcium 9.3 8.5 - 10.5 mg/dL LAB CHEMISTRY METHOD 01/06/2025 4:52 PM EDT [facility] Phosphorus 4.0 2.5 - 4.5 mg/dL LAB CHEMISTRY METHOD 01/06/2025 4:52 PM EDT [facility] Blood Venous blood specimen / Unknown Venipuncture / Unknown 01/06/2025 11:29 AM EDT 01/06/2025 11:29 AM EDT us Everton Riddle MD LAB BLOOD ORDERABLES Final Re sult [facility] [address] [place] [address], [place] [phone] * Lipid panel with reflex to direct [...] BLOOD ORDERABLES Final Result Performing Organization Address [facility]/ZIP Co de Phone Number [facility] [address] [place] [address], [place] [phone] * Hemoglobin A1c (08/26/2024 11:03 AM EDT) [facility] Hemoglobin A1C 6.4 <6.5 % LAB CHEMISTRY [...] Final Result [facility] [address] [place] [address], [place] [phone] * Falls Risk Assessment (03/26/2024) Pathologist [facility] Falls Risk Assessment Abstracted Historical Provider MD HEALTH MAINTENANCE Final Result * Depression Screening (03/26/2024) Pathologist [facility] Depression Screening Abstracted Historical Provider HEALTH MAINTENANCE Final Result * Diabetes Foot Exam (12/04/2023) Pathologist [facility] Diabetes: Annual Foot Exam Abstracted us Historical Provider HEALTH MAINTENANCE Final Result * Diabetes Eye Exam (11/28/2023) Pathologist [facility] Diabetes: Annual Retina Eye Exam Abstracted Comment:External Completion of test per patient (Patient reports normal results) us Historical Provider HEALTH MAINTENANCE Final Result from Last 3 Months or Most Recently Relevant to Health Maintenance Insurance [facility] MEDICARE Member Subscriber Plan / Payer (Ef fective 2012-Present) Name:Shea Ramirez Relation to Subscriber:Self Name:Shea Ramirez Payer ID:[id number] Group ID:[id number] Type:Not on file Address: [place] [address] [address] [id number] Care Teams Well Driller Relationship Specialty Start Date End Date Kathy Perez MD [address] [place] [address] PCP - General Internal Medicine 07/22/24
--- OUTSIDE RECORDS SUMMARY | 2025-05-09 15:25 | XMS_ITS | Encounter Summary ---
Author Organization [facility] Address [address] [place] [address] Care Team Providers Care Molded Goods Controls Operator Name Role Phone Wiley Thompson MD Primary Care Provider Kameron Cornejo MD Unavailable Katya Lopez NP Unavailable Unavailab Kathy Haley MD Primary Care Prov ider Be Pacheco NP Unavailable [phone] Maycol Infante MD Unavailable Unavailable Sebastian Martinez MD Unavailable UnavailEve Blackmon MD Unavailable Elisa Romero NP Unavailable [phone] Marcus Murcia DO Unavailable Unavailable Encounter Details Date Type Department Care Team Description 12/03/2021 Telephone Cardio PVCA Diag Testing 101 [address] [facility] [address] [place], [place] [id number] Kameron Zuñiga MD [address] [place] [address] [id number] Social History Tobacco Use Types Packs/Day Years [...] on filedocumented in this encounter Care Teams Molded Goods Controls Operator Relationship Specialty Start Date End Date Wiley Thompson MD PCP - General Internal Medicine 06/04/14 01/20/22 Kathy Christopher MD [address] [place] [address] PCP - General Internal Medicine 01/21/22 Kameron Zuñiga MD Magazine Publisher Cardiovascular Disease 08/04/21 Katya Lopez NP Cardiology 08/04/21 01/30/24 Be Pacheco NP [address] [place] [address] 17539 Nurse Practitioner Cardiology 10/17/22 01/30/24 Maycol Infante MD [address] [place] [address] 44781 Specialist Pulmonology 10/19/22 Sebastian Martinez MD [address] [place] [address] 06737 Specialist Ophthalmology 03/21/23 Eve Juan MD [address] [place] [address] [place] [address] Specialist UROGYNECOLOGY 03/21/23 Elisa Romero NP [address] [place] [address] [place] [address] Cardiology 01/31/24 Marcus Murcia DO [address] [place] [address] [place] [address] Specialist Physiatry 03/26/24 documented as of this encounter
--- OUTSIDE RECORDS SUMMARY | 2025-05-09 15:25 | XMS_ITS | Encounter Summary ---
Author Organization [facility] Address [address] [place] [address] Care Team Providers Care Certified Tumor Registrar Name Role Phone Wiley Thompson MD Primary Care Provider Kameron Cornejo MD Unavailable Katya Lopez NP Unavailable Unavailab Kathy Haley MD Primary Care Prov ider Be Pacheco NP Unavailable [phone] Maycol Infante MD Unavailable Unavailable Sebastian Martinez MD Unavailable UnavailEve Blackmon MD Unavailable Eilsa Romero NP Unavailable [phone] Marcus Murcia DO Unavailable Unavailable Encounter Details Date Type Department Care Team Description 08/19/2021 Composite Mechanic Report Medical Records [address] [place] [address] 23278 Tyson Hunter Social History Tobacco Use Types [...] filedocumented in this encounter Care Teams Certified Tumor Registrar Relationship Specialty Start Date End Date Wiley Thompson MD PCP - General Internal Medicine 06/04/14 01/20/22 Kathy Christopher MD [address] [place] [address] 60349 PCP - General Internal Medicine 01/21/22 Kameron Zuñiga MD Bakeshop Cleaner Cardiovascular Disease 08/04/21 Katya Lopez NP Cardiology 08/04/21 01/30/24 Be Pacheco NP [address] [place] [address] 28697 Nurse Practitioner Cardiology 10/17/22 01/30/24 Maycol Infante MD [address] [place] [address] 43918 Specialist Pulmonology 10/19/22 Sebastian Martinez MD [address] [place] [address] 37847 Specialist Ophthalmology 03/21/23 Eve Juan MD [address] [place] [address] [place] [address] Specialist UROGYNECOLOGY 03/21/23 Elisa Romero NP [address] [place] [address] [place] [address] Cardiology 01/31/24 Marcus Murcia DO [address] [place] [address] [place] [address] Specialist Physiatry 03/26/24 documented as of this encounter
--- OUTSIDE RECORDS SUMMARY | 2025-05-09 15:25 | XMS_ITS | Encounter Summary ---
Author Organization [facility] Address [address] [place] [address] Care Team Providers Care Motor Vehicle Parts Interpreter Name Role Phone Wiley Thompson MD Primary Care Provider Kameron Cornejo MD Unavailable Katya Lopez NP Unavailable Unavailab Kathy Haley MD Primary Care Prov ider Be Pacheco NP Unavailable [phone] Maycol Infante MD Unavailable Unavailable Sebastian Martinez MD Unavailable UnavailEve Blackmon MD Unavailable Elisa Romero NP Unavailable [phone] Marcus Murcia DO Unavailable Unavailable Encounter Details Date Type Department Care Team Description 09/17/2021 SCAN Medical Records [address] [place] [address] Abstract, Provider Social History Tobacco Use Types [...] filedocumented in this encounter Care Teams Motor Vehicle Parts Interpreter Relationship Specialty Start Date End Date Wiley Thompson MD PCP - General Internal Medicine 06/04/14 01/20/22 Kathy Christopher MD [address] [place] [address] 37183 PCP - General Internal Medicine 01/21/22 Kameron Zuñiga MD Segregator Cardiovascular Disease 08/04/21 Katya Lopez NP Cardiology 08/04/21 01/30/24 Be Pacheco NP [address] [place] [address] 73068 Nurse Practitioner Cardiology 10/17/22 01/30/24 Maycol Infante MD [address] [place] [address] 90031 Specialist Pulmonology 10/19/22 Sebastian Martinez MD [address] [place] [address] 17480 Specialist Ophthalmology 03/21/23 Eve Juan MD [address] [place] [address] [place] [address] Specialist UROGYNECOLOGY 03/21/23 Elisa Romero NP [address] [place] [address] [place] [address] Cardiology 01/31/24 Marcus Murcia DO [address] [place] [address] [place] [address] Specialist Physiatry 03/26/24 documented as of this encounter
--- OUTSIDE RECORDS SUMMARY | 2025-05-09 15:25 | XMS_ITS | Encounter Summary ---
Author Organization [facility] Address [address] [place] [address] Care Team Providers Care Working Manager Name Role Phone Wiley Thompson MD Primary Care Provider Kameron Cornejo MD Unavailable Katya Lopez NP Unavailable Unavailab Kathy Haley MD Primary Care Prov ider Be Pacheco NP Unavailable [phone] Maycol Infante MD Unavailable Unavailable Sebastian Martinez MD Unavailable UnavailEve Blackmon MD Unavailable Elisa Romero NP Unavailable [phone] Marcus Murcia DO Unavailable Unavailable Encounter Details Date Type Department Care Team Description 08/19/2021 Organisational Psychologist Report Medical Records [address] [place] [address] Arun Hui MD Social History Tobacco Use [...] on filedocumented in this encounter Care Teams Working Manager Relationship Specialty Start Date End Date Wiley Thompson MD PCP - General Internal Medicine 06/04/14 01/20/22 Kathy Christopher MD [address] [place] [address] 75688 PCP - General Internal Medicine 01/21/22 Kameron Zuñiga MD Aircraft De Icer Installer Cardiovascular Disease 08/04/21 Katya Lopez NP Cardiology 08/04/21 01/30/24 Be Pacheco NP [address] [place] [address] Nurse Practitioner Cardiology 10/17/22 01/30/24 Maycol Infante MD [address] [place] [address] 09334 Specialist Pulmonology 10/19/22 Sebastian Martinez MD [address] [place], [place] [phone] Specialist Ophthalmology 03/21/23 Eve Juan MD [address] [place] [address] [place] [address] Specialist UROGYNECOLOGY 03/21/23 Elisa Romero NP [address] [place] [address] [place] [address] Cardiology 01/31/24 Marcus Murcia DO [address] [place] [address] [place] [address] Specialist Physiatry 03/26/24 documented as of this encounter
--- OUTSIDE RECORDS SUMMARY | 2025-05-09 15:25 | XMS_ITS | Clinical Summary ---
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
--- OUTSIDE RECORDS SUMMARY | 2025-05-09 15:25 | XMS_ITS | Encounter Summary ---
Author Organization [facility] Address [address] [place] [address] Care Team Providers Care Correctional Officer Lieutenant Name Role Phone Kameron Zuñiga MD Unavailable Katya Lopez NP Unavailable Unavailab Kathy Haley MD Primary Care Prov ider Be Pacheco NP Unavailable [phone] Maycol Infante MD Unavailable Unavailable Sebastian Martinez MD Unavailable UnavailEve Blackmon MD Unavailable Elisa Romero NP Unavailable [phone] Marcus Murcia DO Unavailable Unavailable Encounter Details Date Type Department Care Team Description 08/17/2023 Orders Only Medical Records [address] [place] [address] 39759 Tyson Hunter Social History Tobacco Use Types [...] filedocumented in this encounter Care Teams Correctional Officer Lieutenant Relationship Specialty Start Date End Date Kathy Christopher MD [address] [place] [address] 9[address]98 PCP - General Internal Medicine 01/21/22 Kameron Zuñiga MD Coffee Weigher Cardiovascular Disease 08/04/21 Katya Lopez NP Cardiology 08/04/21 01/30/24 Be Pacheco NP [address] [place] [address] 46064 Nurse Practitioner Cardiology 10/17/22 01/30/24 Maycol Infante MD [address] [place] [address] 02359 Specialist Pulmonology 10/19/22 Sebastian Martinez MD [address] [place] [address] 07083 Specialist Ophthalmology 03/21/23 Eve Juan MD [address] [place] [address] [place] [address] Specialist UROGYNECOLOGY 03/21/23 Elisa Romero NP [address] [place] [address] [place] [address] Cardiology 01/31/24 Marcus Murcia DO [address] [place] [address] [place] [address] Specialist Physiatry 03/26/24 documented as of this encounter
--- OUTSIDE RECORDS SUMMARY | 2025-05-09 15:25 | XMS_ITS | Encounter Summary ---
Author Organization [facility] Address [address] [place] [address] Care Team Providers Care Application Systems Architect Name Role Phone Wiley Thompson MD Primary Care Provider Kameron Cornejo MD Unavailable Katya Lopez SUPERVISOR POULTRY HATCHERY Unavailable Unavailab Kathy Christopher MD Primary Care Prov ider Be Pacheco NP Unavailable [phone] Maycol Infante MD Unavailable Unavailable Sebastian Martinez MD Unavailable UnavailEve Blackmon MD Unavailable Elisa Romero NP Unavailable [phone] Marcus Murcia DO Unavailable Unavailable Encounter Details Date Type Department Care Team Description 08/30/2019 Disability Representative Report Medical Records [address] [place] [address] 31453 Maycol Infante MD Social History Tobacco Use [...] on filedocumented in this encounter Care Teams Application Systems Architect Relationship Specialty Start Date End Date Wiley Thompson MD PCP - General Internal Medicine 06/04/14 01/20/22 Kathy Christopher MD [address] [place] [address] 29478 PCP - General Internal Medicine 01/21/22 Kameron Zuñiga MD Wink Cutter Operator Cardiovascular Disease 08/04/21 Katya Lopez, IRMA Cardiology 08/04/21 01/30/24 Be Pacheco NP [address] [place] [address] 74686 Nurse Practitioner Cardiology 10/17/22 01/30/24 Maycol Infante MD [address] [place] [address] 01483 Specialist Pulmonology 10/19/22 Sebastian Martinez MD [address] [place] [address] 46244 Specialist Ophthalmology 03/21/23 Eve Juan MD [address] [place] [address] [place] [address] Specialist UROGYNECOLOGY 03/21/23 Elisa Romero NP [address] [place] [address] [place] [address] Cardiology 01/31/24 Marcus Murcia DO [address] [place] [address] [place] [address] Specialist Physiatry 03/26/24 documented as of this encounter
--- OUTSIDE RECORDS SUMMARY | 2025-05-09 15:25 | XMS_ITS | Encounter Summary ---
Author Organization [facility] Address [address] [place] [address] Care Team Providers Care Switch Engineer Name Role Phone Wiley Thompson MD Primary Care Provider Kameron Cornejo MD Unavailable Katya Lopez NP Unavailable Unavailab Kathy Haley MD Primary Care Prov ider Be Pacheco NP Unavailable [phone] Maycol Infante MD Unavailable Unavailable Sebastian Martinez MD Unavailable UnavailEve Blackmon MD Unavailable Elisa Romero NP Unavailable [phone] Marcus Murcia DO Unavailable Unavailable Encounter Details Date Type Department Care Team Description 05/05/2017 Geek Squad Manager Report Medical Records [address] [place] [address] 11632 Talia Mckay PA-C Social History Tobacco Use [...] on filedocumented in this encounter Care Teams Switch Engineer Relationship Specialty Start Date End Date Wiley Thompson MD PCP - General Internal Medicine 06/04/14 01/20/22 Kathy Christopher MD [address] [place] [address] 66776 PCP - General Internal Medicine 01/21/22 Kameron Zuñiga MD Accountant Property Cardiovascular Disease 08/04/21 Katya Lopez NP Cardiology 08/04/21 01/30/24 Be Pacheco NP [address] [place] [address] 17136 Nurse Practitioner Cardiology 10/17/22 01/30/24 Maycol Infante MD [address] [place] [address] 31220 Specialist Pulmonology 10/19/22 Sebastian Martinez MD [address] [place] [address] 66848 Specialist Ophthalmology 03/21/23 Eve Juan MD [address] [place] [address] [place] [address] Specialist UROGYNECOLOGY 03/21/23 Elisa Romero NP [address] [place] [address] [place] [address] Cardiology 01/31/24 Marcus Murcia DO [address] [place] [address] [place] [address] Specialist Physiatry 03/26/24 documented as of this encounter
--- OUTSIDE RECORDS SUMMARY | 2025-05-09 15:26 | XMS_ITS | Encounter Summary ---
Author Organization [facility] Address [address] [place] [address] Care Team Providers Care Databases Computer Consultant Name Role Phone Wiley Thompson MD Primary Care Provider Kameron Cornejo MD Unavailable Katya Lopez REPAIRER ENGINE PRODUCTION Unavailable Unavailab Kathy Christopher MD Primary Care Prov ider Be Pacheco NP Unavailable [phone] Maycol Infante MD Unavailable Unavailable Sebastian Martinez MD Unavailable UnavailEve Blackmon MD Unavailable Elisa Romero NP Unavailable [phone] Marcus Murcia DO Unavailable Unavailable Encounter Details Date Type Department Care Team Description 05/03/2019 Finishing Supervisor Report Medical Records [address] [place] [address]407 Maycol Infante MD Social History Tobacco Use [...] on filedocumented in this encounter Care Teams Databases Computer Consultant Relationship Specialty Start Date End Date Wiley Thompson MD PCP - General Internal Medicine 06/04/14 01/20/22 Kathy Christopher MD [address] [place] [address] 17322 PCP - General Internal Medicine 01/21/22 Kameron Zuñiga MD Dialysis Tech Cardiovascular Disease 08/04/21 Katya Lopez, IRMA Cardiology 08/04/21 01/30/24 Be Pacheco NP [address] [place] [address] 07240 Nurse Practitioner Cardiology 10/17/22 01/30/24 Maycol Infante MD [address] [place] [address] 14233 Specialist Pulmonology 10/19/22 Sebastian Martinez MD [address] [place] [address] 06553 Specialist Ophthalmology 03/21/23 Eve Juan MD [address] [place] [address] [place] [address] Specialist UROGYNECOLOGY 03/21/23 Elisa Romero NP [address] [place] [address] [place] [address] Cardiology 01/31/24 Marcus Murcia DO [address] [place] [address] [place] [address] Specialist Physiatry 03/26/24 documented as of this encounter
--- OUTSIDE RECORDS SUMMARY | 2025-05-09 15:26 | XMS_ITS | Encounter Summary ---
Author Organization [facility] Address [address] [place] [address] Care Team Providers Care Tin Assorter Name Role Phone Bri Santacruz MD Primary Care Provider Unavailable Wiley Thompson MD Primary Care Provider Kameron Cornejo MD Unavailable Katya Lopez NP Unavailable Unavailab Kathy Haley MD Primary Care Prov ider CycBe navas NP Unavailable [phone] Maycol Infante MD Unavailable Unavailable Sebastian Martinez MD Unavailable UnavailEve Blackmon MD Unavailable Elisa Romero NP Unavailable [phone] Marcus Murcia DO Unavailable Unavailable Encounter Details Date Type Department Care Team Description 04/09/2013 Orders Only Adult Medicine [address] [address] Bri Santacruz MD UTI (lower urinary tract [...] CLINICALLY INDICATED. Bri Santacruz MD [facility] documented in this encounter Visit Diagnoses Diagnosis UTI (lower urinary tract infection)- Primary Urinary tract infection, site not specified UTI (lower urinary tract infection) Urinary tract infection, site not specified Diabetes type 2, controlled (HCC) Type II or unspecified type diabetes mellitus without mention of complication, not stated as uncontrolled documented in this encounter Care Teams Tin Assorter Relationship Specialty Start Date End Date Bri Santacruz MD PCP - General Internal Medicine 04/23/12 06/03/14 Wiley Thompson MD PCP - General Internal Medicine 06/04/14 01/20/22 Kathy Christopher MD [address] [place] [address] PCP - General Internal Medicine 01/21/22 Kameron Zuñiga MD Pipe Testing Technician Cardiovascular Disease 08/04/21 Katya Lopez NP Cardiology 08/04/21 01/30/24 Be Pacheco NP [address] [place] [address]449 Nurse Practitioner Cardiology 10/17/22 01/30/24 Maycol Infante MD [address] [place] [address] Specialist Pulmonology 10/19/22 Sebastian Martinez MD [address] [place] [address] Specialist Ophthalmology 03/21/23 Eve Juan MD [address] [place] [address] [place] [address] Specialist UROGYNECOLOGY 03/21/23 Elisa Romero NP [address] [facility] [place] [place] [address] Cardiology 01/31/24 Marcus Murcia DO [address] [facility] [place] [address] Specialist Physiatry 03/26/24 documented as of this encounter
--- OUTSIDE RECORDS SUMMARY | 2025-05-09 15:26 | XMS_ITS | Clinical Summary ---
Author Organization [facility] Address [address] [address] Phone Care Team Providers Care Fish Cleaner Name Role Phone Kathy Christopher MD Primary [...] Gastroparesis 07/17/2012 Overview (09/19/2024): Dr. 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 [address] [address] Lizzie Magana ARNP [address] [address] Health Maintenance Due Date Last Done Comments Diabetes: Ophthalmology Exam 09/10/2024 06/27/2014 Diabetes: Pedal Pulse Checked 09/10/2024 Diabetes: Sensory Foot Exam 09/10/2024 Diabetes: Visual Foot Exam 09/10/2024 Diabetes: Hemoglobin A1C 11/26/2024 025, 08/26/2024, 07/25/2021 Influenza Vaccine (#1) 2025 4, 02/28/2023, 03/28/2022, Additional history exists Pneumococcal Vaccine: 50+ Years Completed 03/30/2016, 04/28/2014, 03/05/2013, Additional history exists Pneumococcal Vaccine: Peds (0 to 5 Years) and At-Risk Patients (6 to 49 Years) Discontinued 03/30/2016, 04/28/2014, 03/05/2013, Additional history exists Hepatitis B Vaccine Aged Out No longe r eligible based on patient's age to complete this topic Insurance [facility] MCR ([id number]) Care Teams Fish Cleaner Relationship Specialty Start Date End Date Kathy Christohper MD [address] [place] [address] PCP - General 09/10/24
--- OUTSIDE RECORDS SUMMARY | 2025-05-09 15:26 | XMS_ITS | Encounter Summary ---
Author Organization [facility] Address [address] [place] [address] Care Team Providers Care Warehouse Shipper Name Role Phone Wiley Thompson MD Primary Care Provider Kameron Cornejo MD Unavailable Katya Lopez NP Unavailable Unavailab Kathy Haley MD Primary Care Prov ider Be Pacheco NP Unavailable [phone] Maycol Infante MD Unavailable Unavailable Sebastian Martinez MD Unavailable UnavailEve Blackmon MD Unavailable Elisa Romero NP Unavailable [phone] Marcus Murcia DO Unavailable Unavailable Encounter Details Date Type Department Care Team Description 02/24/2015 Release of Information Medical Records [address] [place] [address] Abstract, Provider Social History Tobacco Use Types [...] 24, 2015 11:47 AM Request received from [facility] sent to [facility] TIMOTHY/Erich. documented in this encounter Plan of Treatment Not on file documented as of this encounter Visit Diagnoses Not on filedocumented in this encounter Care Teams Warehouse Shipper Relationship Specialty Start Date End Date Wiley Thompson MD PCP - General Internal Medicine 06/04/14 01/20/22 Kathy Christopher MD [address] [place] [address] PCP - General Internal Medicine 01/21/22 Kameron Zuñiga MD Morning News Producer Cardiovascular Disease 08/04/21 Katya Lopez NP Cardiology 08/04/21 01/30/24 Be Pacheco NP [address] [place] [address] 65294 Nurse Practitioner Cardiology 10/17/22 01/30/24 Maycol Infante MD [address] [place] [address]107 Specialist Pulmonology 10/19/22 Sebastian Martinez MD [address] [place] [address] 97387 Specialist Ophthalmology 03/21/23 Eve Juan MD [address] [place] [address] [place] [address] Specialist UROGYNECOLOGY 03/21/23 Elisa Romero NP [address] [place] [address] [place] [address] Cardiology 01/31/24 Marcus Murcia DO [address] [place] [address] [place] [address] Specialist Physiatry 03/26/24 documented as of this encounter
--- OUTSIDE RECORDS SUMMARY | 2025-05-09 15:26 | XMS_ITS | Encounter Summary ---
Author Organization [facility] Address [address] [place] [address] Care Team Providers Care Link Machine Operator Name Role Phone Wiley Thompson MD Primary Care Provider Kameron Cornejo MD Unavailable Katya Lopez NP Unavailable Unavailab Kathy Haley MD Primary Care Prov ider Be Pacheco NP Unavailable [phone] Maycol Infante MD Unavailable Unavailable Sebastian Martinez MD Unavailable UnavailEve Blackmon MD Unavailable Elisa Romero NP Unavailable [phone] Marcus Murcia DO Unavailable Unavailable Reason for Visit * Reason Onset Date Comments Orders Call 03/02/2017 Encounter Details Date Type Department Care Team Description 03/02/2017 Telephone Adult Medicine [address] [address] Wiley Thompson MD Orders Call Social History [...] - 03/02/2017 12:06 PM EDT Clementina wolff [facility] (nurse case checker) is requesting the MRI order to be faxed to [phone] for approval and to have it expedited as the patient is in need of having the MRI doen shamar. Thanks documented in this encounter Plan of Treatment Not on file documented as of this encounter Visit Diagnoses Not on filedocumented in this encounter Care Teams Link Machine Operator Relationship Specialty Start Date End Date Wiley Thompson MD PCP - General Internal Medicine 06/04/14 01/20/22 Trina Rizo, Kathy Fried MD [address] [place] [address] PCP - General Internal Medicine 01/21/22 Kameron Zuñiga MD Autocad Electrical Designer Cardiovascular Disease 08/04/21 Katya Lopez NP Cardiology 08/04/21 01/30/24 Be Pacheco NP [address] [place] [address] Nurse Practitioner Cardiology 10/17/22 01/30/24 Maycol Infante MD [address] [place] [address] Specialist Pulmonology 10/19/22 Sebastian Martinez MD [address] [place], [place] [phone] Specialist Ophthalmology 03/21/23 Eve Juan MD [address] [place] [address] [place] [address] Specialist UROGYNECOLOGY 03/21/23 Elisa Romero NP [address] [place] [address] [place] [address] Cardiology 01/31/24 Marcus Murcia DO [address] [place] [address] [place] [address] Specialist Physiatry 03/26/24 documented as of this encounter
--- OUTSIDE RECORDS SUMMARY | 2025-05-09 15:26 | XMS_ITS | Encounter Summary ---
Author Organization [facility] Address [address] [place] [address] Care Team Providers Care Career Development Counselor Name Role Phone Wiley Thompson MD Primary Care Provider Kameron Cornejo MD Unavailable Katya Lopez NP Unavailable Unavailab Kathy Haley MD Primary Care Prov ider Be Pacheco NP Unavailable [phone] Maycol Infante MD Unavailable Unavailable Sebastian Martinez MD Unavailable UnavailEve Blackmon MD Unavailable Elisa Romero NP Unavailable [phone] Marcus Murcia DO Unavailable Unavailable Reason for Visit * Reason Onset Date Comments refill request 05/24/2017 Encounter Details Date Type Department Care Team Description 05/24/2017 Refill Adult Medicine [address] [address] Wiley Thompson MD refill request Social History [...] NO Patients current insurance carrier is: Payor: [facility] MCR / Plan[id number] / Product Type: HMO [id number] documented in this encounter Plan of Treatment Not on file documented as of this encounter Visit Diagnoses Not on filedocumented in this encounter Care Teams Career Development Counselor Relationship Specialty Start Date End Date Wiley Thompson MD PCP - General Internal Medicine 06/04/14 01/20/22 Kathy Christopher MD [address] [place] [address] PCP - General Internal Medicine 01/21/22 Kameron Zuñiga MD Director Of Direct Marketing Cardiovascular Disease 08/04/21 Katya Lopez NP Cardiology 08/04/21 01/30/24 Be Pacheco NP [address] [place] [address] Nurse Practitioner Cardiology 10/17/22 01/30/24 Maycol Infante MD [address] [place] [address] Specialist Pulmonology 10/19/22 Sebastian Martinez MD [address] [place], [place] [phone] Specialist Ophthalmology 03/21/23 Eve Juan MD [address] [place] [address] [place] [address] Specialist UROGYNECOLOGY 03/21/23 Elisa Romero NP [address] [place] [address] [place] [address] Cardiology 01/31/24 Marcus Murcia DO [address] [place] [address] [place] [address] Specialist Physiatry 03/26/24 documented as of this encounter
--- OUTSIDE RECORDS SUMMARY | 2025-05-09 15:26 | XMS_ITS | Encounter Summary ---
Author Organization [facility] Address [address] [place] [address] Care Team Providers Care First Dyer Name Role Phone Wiley Thompson MD Primary Care Provider Kameron Cornejo MD Unavailable Katya Lopez NP Unavailable Unavailab Kathy Christopher MD Primary Care Prov ider Be Pacheco NP Unavailable [phone] Maycol Infante MD Unavailable Unavailable Sebastian Martinez MD Unavailable UnavailEve Blackmon MD Unavailable Elisa Romero NP Unavailable [phone] Marcus Murcia DO Unavailable Unavailable Encounter Details Date Type Department Care Team Description 12/19/2014 Credit Administration Specialist Report Medical Records [address] [place] [address] Cheo Olivia Social History Tobacco Use Types [...] on filedocumented in this encounter Care Teams First Dyer Relationship Specialty Start Date End Date Wiley Thompson MD PCP - General Internal Medicine 06/04/14 01/20/22 Kathy Christopher MD [address] [place] [address] PCP - General Internal Medicine 01/21/22 Kameron Zuñiga MD Prototype Assembler Electronics Cardiovascular Disease 08/04/21 Katya Lopez NP Cardiology 08/04/21 01/30/24 Be Pacheco NP [address] [place] [address] Nurse Practitioner Cardiology 10/17/22 01/30/24 Maycol Infante MD [address] [place] [address] Specialist Pulmonology 10/19/22 Sebastian Martinez MD [address] [place], [place] [address] Specialist Ophthalmology 03/21/23 Eve Juan MD [address] [place] [address] [place] [address] Specialist UROGYNECOLOGY 03/21/23 Elisa Romero NP [address] [place] [address] [place] [address] Cardiology 01/31/24 Marcus Murcia DO [address] [place] [address] [place] [address] Specialist Physiatry 03/26/24 documented as of this encounter
--- OUTSIDE RECORDS SUMMARY | 2025-05-09 15:26 | XMS_ITS | Encounter Summary ---
Author Organization [facility] Address [address] [place] [address] Care Team Providers Care Steel Burner Name Role Phone Wiley Thompson MD Primary Care Provider Kameron Cornejo MD Unavailable Katya Lopez NP Unavailable Unavailab Kathy Christopher MD Primary Care Prov ider Be Pacheco NP Unavailable [phone] Maycol Infante MD Unavailable Unavailable Sebastian Martinez MD Unavailable UnavailEve Blackmon MD Unavailable Elisa Romero NP Unavailable [phone] Marcus Murcia DO Unavailable Unavailable Encounter Details Date Type Department Care Team Description 05/26/2015 EMBEDDED LINUX DEVELOPER/Mass[employer] Report Medical Records [address] [place] [address] Abstract, Provider Social History Tobacco Use Types [...] on filedocumented in this encounter Care Teams Steel Burner Relationship Specialty Start Date End Date Wiley Thompson MD PCP - General Internal Medicine 06/04/14 01/20/22 Kathy Christopher MD [address] [place] [address] PCP - General Internal Medicine 01/21/22 Kameron Zuñiga MD Experimental Worker Cardiovascular Disease 08/04/21 Katya Lopez NP Cardiology 08/04/21 01/30/24 Be Pacheco NP [address] [place] [address] Nurse Practitioner Cardiology 10/17/22 01/30/24 Maycol Infante MD [address] [place] [address] Specialist Pulmonology 10/19/22 Sebastian Martinez MD [address] [place], [place] [phone] Specialist Ophthalmology 03/21/23 Eve Juan MD [address] [place] [address] [place] [address] Specialist UROGYNECOLOGY 03/21/23 Elisa Romero NP [address] [place] [address] [place] [address] Cardiology 01/31/24 Marcus Murcia DO [address] [place] [address] [place] [address] Specialist Physiatry 03/26/24 documented as of this encounter
--- OUTSIDE RECORDS SUMMARY | 2025-05-09 15:26 | XMS_ITS | Encounter Summary ---
Author Organization [facility] Address [address] [place] [address] Care Team Providers Care Health Care Assistant Name Role Phone Wiley Thompson MD Primary Care Provider Kameron Cornejo MD Unavailable Katya Lopez NP Unavailable Unavailab Kathy Haley MD Primary Care Prov ider Be Pacheco NP Unavailable [phone] Maycol Infante MD Unavailable Unavailable Sebastian Martinez MD Unavailable UnavailEve Blackmon MD Unavailable Elisa Romero NP Unavailable [phone] Marcus Murcia DO Unavailable Unavailable Encounter Details Date Type Department Care Team Description 02/27/2015 Hospital Medical Records [address] [place] [address] Yeimi Jiménez Social History Tobacco Use Types [...] filedocumented in this encounter Care Teams Health Care Assistant Relationship Specialty Start Date End Date Wiley Thompson MD PCP - General Internal Medicine 06/04/14 01/20/22 Kathy Christopher MD [address] [place] [address] PCP - General Internal Medicine 01/21/22 Kameron Zuñiga MD Advertising Photographer Cardiovascular Disease 08/04/21 Katya Lopez, IRMA Cardiology 08/04/21 01/30/24 Be Pacheco NP [address] [place] [address] Nurse Practitioner Cardiology 10/17/22 01/30/24 Maycol Infante MD [address] [place] [address] Specialist Pulmonology 10/19/22 Sebastian Martinez MD [address] [place] [address] Specialist Ophthalmology 03/21/23 Eve Juan MD [address] [place] [address] [place] [address] Specialist UROGYNECOLOGY 03/21/23 Elisa Romero NP [address] [place] [address] [place] [address] Cardiology 01/31/24 Marcus Murcia DO [address] [place] [address] [place] [address] Specialist Physiatry 03/26/24 documented as of this encounter
--- OUTSIDE RECORDS SUMMARY | 2025-05-09 15:26 | XMS_ITS | Encounter Summary ---
Author Organization [facility] Address [address] [place] [address] Care Team Providers Care Supervisor Ore Dressing Name Role Phone Wiley Thompson MD Primary Care Provider Kameron Cornejo MD Unavailable Katya Lopez NP Unavailable Unavailab Kathy Haley MD Primary Care Prov ider Be Pacheco NP Unavailable [phone] Maycol Infante MD Unavailable Unavailable Sebastian Martinez MD Unavailable UnavailEve Blackmon MD Unavailable Elisa Romero NP Unavailable [phone] Marcus Murcia DO Unavailable Unavailable Encounter Details Date Type Department Care Team Description 12/15/2017 Orders Only Adult Medicine [address] [id number] Wiley Thompson MD Preoperative examination; Screening for [...] 100 mg/dL 12/26/2017 5:44 PM EDT [facility] [employer] [facility] Comment:Reference range appl icable to fasting specimens only Blood Urea Nitrogen 9 5 - 25 mg/dL 12/26/2017 5:44 PM EDT [facility] CREAT 1.02 0.5 - 1.1 mg/dL 12/26/2017 5:44 PM EDT [facility] GLOMERULAR FILTRATION RATE 53 12/26/2017 5:44 PM EDT [facility] Comment: If patient is -Latvian, multiply result by 1.21 Chronic Kidney Disease: < 60 ml/min/1.73 square meters Kidney Failure: < 15 ml/min/1.73 square meters NA 144 133 - 145 mmol/L 12/26/2017 5:44 PM EDT [facility] K 4.4 3.5 - 5.5 mmol/L 12/26/2017 5:44 PM EDT [facility] CL 106 96 - 110 mmol/L 12/26/2017 5:44 PM EDT [facility] CARBON DIOXIDE (CO2) 29 21 - 32 mmol/L 12/26/2017 5:44 PM EDT [facility] ANION GAP 9 3 - 11 12/26/2017 5:44 PM EDT [facility] CALCIUM 9.2 8.5 - 10.5 mg/dL 12/26/2017 5:44 PM EDT [facility] 12/26/2017 1:43 PM EDT 12/26/2017 1:44 PM EDT Wiley Thompson MD LAB [facility] [employer] [employer] * (ABNORMAL) CBC (AUTO DIFF PLATELET) (12/26/2017 1:43 PM EDT) Pathologist [facility] WBC 6.9 4.8 - 10.8 x10-3 12/26/2017 [...] Wiley Thompson MD LAB Performing Organization Address City/State/[facility] Co de Phone Number [facility] [address] [place] [address] documented in this encounter Visit Diagnoses Diagnosis Preoperative examination Preoperative examination, unspecified Screening for deficiency anemia Screening for other and unspecified deficiency anemia documented in this encounter Care Teams Supervisor Ore Dressing Relationship Specialty Start Date End Date Wiley Thompson MD PCP - General Internal Medicine 06/04/14 01/20/22 Kathy Christopher MD [address] [place] [address], [place] [address] PCP - General Internal Medicine 01/21/22 Kameron Zuñiga MD Car Sales Representative Cardiovascular Disease 08/04/21 Katya Lopez NP Cardiology 08/04/21 01/30/24 Be Pacheco NP [address] [place] [address] Nurse Practitioner Cardiology 10/17/22 01/30/24 Maycol Infante MD [address] [place] [address] Specialist Pulmonology 10/19/22 Sbeastian Martinez MD [address] [place] [address] Specialist Ophthalmology 03/21/23 Eve Juan MD [address] [place] [address] [place] [address] Specialist UROGYNECOLOGY 03/21/23 Elisa Romero NP [address] [place] [address] [place] [address] Cardiology 01/31/24 Marcus Murcia DO [address] [place] [address] [place] [address] Specialist Physiatry 03/26/24 documented as of this encounter
--- OUTSIDE RECORDS SUMMARY | 2025-05-09 15:26 | XMS_ITS | Encounter Summary ---
Author Organization [facility] Address [address] [place] [address] Care Team Providers Care Tool Maker Name Role Phone Bri Santacruz MD Primary Care Provider Unavailable Wiley Thompson MD Primary Care Provider Kameron Cornejo MD Unavailable Katya Lopez NP Unavailable Unavailab Kathy Haley MD Primary Care Prov ider Be Pacheco NP Unavailable [phone] Maycol Infante MD Unavailable Unavailable Sebastian Martinez MD Unavailable UnavailEve Blackmon MD Unavailable Elisa Romero NP Unavailable [phone] Marcus Murcia DO Unavailable Unavailable Encounter Details Date Type Department Care Team Description 05/15/2013 Night Triage Doc Medical Records [address] [place] [address] Abstract, Provider Social History Tobacco Use Types [...] filedocumented in this encounter Care Teams Tool Maker Relationship Specialty Start Date End Date Bri Santacruz MD PCP - General Internal Medicine 04/23/12 06/03/14 Wiley Thompson MD PCP - General Internal Medicine 06/04/14 01/20/22 Kathy Christopher MD [address] [place] [address] PCP - General Internal Medicine 01/21/22 Kameron Zuñiga MD Instrument Person Cardiovascular Disease 08/04/21 Katya Lopez NP Cardiology 08/04/21 01/30/24 Be Pacheco NP [address] [place] [address] Nurse Practitioner Cardiology 10/17/22 01/30/24 Maycol Infante MD [address] [place] [address] Specialist Pulmonology 10/19/22 Sebastian Martinez MD [address] [place] [address] Specialist Ophthalmology 03/21/23 Eve Juan MD [address] [place] [address] [place] [address] Specialist UROGYNECOLOGY 03/21/23 Elisa Romero NP [address] [place] [address] [place] [address] Cardiology 01/31/24 Marcus Murcia DO [address] [place] [address] [place] [address] Specialist Physiatry 03/26/24 documented as of this encounter
--- OUTSIDE RECORDS SUMMARY | 2025-05-09 15:26 | XMS_ITS | Encounter Summary ---
Author Organization [facility] Address [address] [place] [address] Care Team Providers Care Appeals Representative Name Role Phone Wiley Thompson MD Primary Care Provider Kameron Cornejo MD Unavailable Katya Lopez NP Unavailable Unavailab Kathy Haley MD Primary Care Prov ider Be Pacheco NP Unavailable [phone] Maycol Infante MD Unavailable Unavailable Sebastian Martinez MD Unavailable UnavailEve Blackmon MD Unavailable Elisa Romero NP Unavailable [phone] Marcus Murcia DO Unavailable Unavailable Reason for Visit * Reason Onset Date Comments pain, chest 02/15/2017 Encounter Details Date Type Department Care Team Description 02/15/2017 Telephone Adult Medicine [address] [address] Wiley Thompson MD pain, chest Social History [...] to ER for eval- will go to [place] [facility]. * Telephone Encounter - Marti Doris - 02/15/2017 11:41 AM EDT Symptoms patient is presenting: PT IS HAVING CHEST PAIN AND TIGHT CHEST If pain or injury related was it due to an accident at work or from a motor vehicle accident? NO If yes, gather 3rd libertarian insurance information Date of accident/Injury: How long has patient had these symptoms?: PCP: Wiley Thompson Payor: [facility] MCR / Plan: AccelaloxO $0 [employer] [id number] / Product Type: HMO [id number] documented in this encounter Plan of Treatment Not on file documented as of this encounter Visit Diagnoses Not on filedocumented in this encounter Care Teams Appeals Representative Relationship Specialty Start Date End Date Wiley Thompson MD PCP - General Internal Medicine 06/04/14 01/20/22 Kathy Christopher MD [address] [place] [address] PCP - General Internal Medicine 01/21/22 Kameron Zuñiga MD Cnc Cutting Operator Cardiovascular Disease 08/04/21 Katya Lopez NP Cardiology 08/04/21 01/30/24 Be Pacheco NP [address] [place] [address] [phone] Nurse Practitioner Cardiology 10/17/22 01/30/24 Maycol Infante MD [address] [place] [address] Specialist Pulmonology 10/19/22 Sebastian Martinez MD [address] [place] [address] Specialist Ophthalmology 03/21/23 Eve Juan MD [address] [place] [address] [place] [address] Specialist UROGYNECOLOGY 03/21/23 Elisa Romero NP [address] [place] [address] [place] [address] Cardiology 01/31/24 Marcus Murcia DO [address] [place] [address] [place] [address] Specialist Physiatry 03/26/24 documented as of this encounter
--- OUTSIDE RECORDS SUMMARY | 2025-05-09 15:26 | XMS_ITS | Encounter Summary ---
Author Organization [facility] Address [address] [place] [address] Care Team Providers Care Certified Nursing Assistant Instructor Name Role Phone Kameron Zuñiga MD Unavailable Katya Lopez NP Unavailable Unavailab Kathy Haley MD Primary Care Prov ider Be Pacheco NP Unavailable [phone] Maycol Infante MD Unavailable Unavailable Sebastian Martinez MD Unavailable UnavailEve Blackmon MD Unavailable Elisa Romero NP Unavailable [phone] Marcus Murcia DO Unavailable Unavailable Encounter Details Date Type Department Care Team Description 05/07/2022 Hospital Medical Records [address] [place] [address] Branden Mariscal Social History Tobacco Use Types [...] filedocumented in this encounter Care Teams Certified Nursing Assistant Instructor Relationship Specialty Start Date End Date Kathy Christopher MD [address] [place] [address] PCP - General Internal Medicine 01/21/22 Kameron Zuñiga MD Professor Of Religion Cardiovascular Disease 08/04/21 Katya Lopez NP Cardiology 08/04/21 01/30/24 Be Pacheco NP [address] [place] [address] Nurse Practitioner Cardiology 10/17/22 01/30/24 Maycol Infante MD [address] [place] [address] Specialist Pulmonology 10/19/22 Sebastian Martinez MD [address] [place] [address] Specialist Ophthalmology 03/21/23 Eve Juan MD [address] [place] [address] [place] [address] Specialist UROGYNECOLOGY 03/21/23 Elisa Romero NP [address] [place] [address] [place] [address] Cardiology 01/31/24 Marcus Murcia DO [address] [place] [address] [place] [address] Specialist Physiatry 03/26/24 documented as of this encounter
--- OUTSIDE RECORDS SUMMARY | 2025-05-09 15:26 | XMS_ITS | Encounter Summary ---
Author Organization [facility] Address [address] [place] [address] Care Team Providers Care Slagger Name Role Phone Wiley Thompson MD Primary Care Provider Kameron Cornejo MD Unavailable Katya Lopez NP Unavailable Unavailab Kathy Christopher MD Primary Care Prov ider Be Pacheco NP Unavailable [phone] Maycol Infante MD Unavailable Unavailable Sebastian Martinez MD Unavailable UnavailEve Blackmon MD Unavailable Elisa Romero NP Unavailable [phone] Marcus Murcia DO Unavailable Unavailable Encounter Details Date Type Department Care Team Description 05/21/2015 Transfer Records Medical Records [address] [place] [address] Abstract, Provider Social History Tobacco Use Types [...] on filedocumented in this encounter Care Teams Slagger Relationship Specialty Start Date End Date Wiley Thompson MD PCP - General Internal Medicine 06/04/14 01/20/22 Kathy Christopher MD [address] [place] [address] PCP - General Internal Medicine 01/21/22 Kameron Zuñiga MD Automobile Rental Representative Cardiovascular Disease 08/04/21 Katya Lopez NP Cardiology 08/04/21 01/30/24 Be Pacheco NP [address] [place] [address] Nurse Practitioner Cardiology 10/17/22 01/30/24 Maycol Infante MD [address] [place] [address] Specialist Pulmonology 10/19/22 Sebastian Martinez MD [address] [place] [address] Specialist Ophthalmology 03/21/23 Eve Juan MD [address] [place] [address] [place] [address] Specialist UROGYNECOLOGY 03/21/23 Elisa Romero NP [address] [place] [address] [place] [address] Cardiology 01/31/24 Marcus Murcia DO [address] [place] [address] [place] [address] Specialist Physiatry 03/26/24 documented as of this encounter
--- OUTSIDE RECORDS SUMMARY | 2025-05-09 15:26 | XMS_ITS | Encounter Summary ---
Author Organization [facility] Address [address] [place] [address] Care Team Providers Care Litigation Secretary Name Role Phone Kameron Zuñiga MD Unavailable Katya Lopez NP Unavailable Unavailab le Kathy Christopher MD Primary Care Prov ider Be Pacheco NP Unavailable [phone] Maycol Infante MD Unavailable Unavailable Sebastian Martinez MD Unavailable UnavailEve Blackmon MD Unavailable Elisa Romero NP Unavailable [phone] Marcus Murcia DO Unavailable Unavailable Encounter Details Date Type Department Care Team Description 09/26/2023 Traffic Signal Supervisor Maintenance Report Medical Records [address] [place] [address] Maycol Infante MD Social History Tobacco Use [...] on filedocumented in this encounter Care Teams Litigation Secretary Relationship Specialty Start Date End Date Kathy Christopher MD [address] [place], [place] [phone] PCP - General Internal Medicine 01/21/22 Kameron Zuñiga MD Terminologist Cardiovascular Disease 08/04/21 Katya Lopez NP Cardiology 08/04/21 01/30/24 Be Pacheco NP [address] [place] [address] Nurse Practitioner Cardiology 10/17/22 01/30/24 Maycol Infante MD [address] [place] [address] Specialist Pulmonology 10/19/22 Sebastian Martinez MD [address] [place] [address] Specialist Ophthalmology 03/21/23 Eve Juan MD [address] [place] [address] [place] [address] Specialist UROGYNECOLOGY 03/21/23 Elisa Romero NP [address] [place] [address] [place] [address] Cardiology 01/31/24 Marcus Murcia DO [address] [place] [address] [place] [address] Specialist Physiatry 03/26/24 documented as of this encounter
--- OUTSIDE RECORDS SUMMARY | 2025-05-09 15:26 | XMS_ITS | Encounter Summary ---
Author Organization [facility] Address [address] [place] [address] Care Team Providers Care Sausage Cooker Name Role Phone Wiley Thompson MD Primary Care Provider Kameron Cornejo MD Unavailable Katya Lopez NP Unavailable Unavailab Kathy Haley MD Primary Care Prov ider Be Pacheco NP Unavailable [phone] Maycol Infante MD Unavailable Unavailable Sebastian Martinez MD Unavailable UnavailEve Blackmon MD Unavailable Elisa Romero NP Unavailable [phone] Marcus Murcia DO Unavailable Unavailable Encounter Details Date Type Department Care Team Description 03/18/2019 Tank Wagon Operator Report Medical Records [address] [place] [address]176 Matti Bansal Social History Tobacco Use Types [...] on filedocumented in this encounter Care Teams Sausage Cooker Relationship Specialty Start Date End Date Wiley Thompson MD PCP - General Internal Medicine 06/04/14 01/20/22 Kathy Christopher MD [address] [place] [address] 48169 PCP - General Internal Medicine 01/21/22 Kameron Zuñiga MD Medical Practitioners Cardiovascular Disease 08/04/21 Katya Lopez NP Cardiology 08/04/21 01/30/24 Be Pacheco NP [address] [place] [address] 68228 Nurse Practitioner Cardiology 10/17/22 01/30/24 Maycol Infante MD [address] [place] [address] 36648 Specialist Pulmonology 10/19/22 Sebastian Martinez MD [address] [place] [address] 83884 Specialist Ophthalmology 03/21/23 Eve Juan MD [address] [place] [address] [place] [address] Specialist UROGYNECOLOGY 03/21/23 Elisa Romero NP [address] [place] [address] [place] [address] Cardiology 01/31/24 Marcus Murcia DO [address] [place] [address] [place] [address] Specialist Physiatry 03/26/24 documented as of this encounter
--- OUTSIDE RECORDS SUMMARY | 2025-05-09 15:26 | XMS_ITS | Encounter Summary ---
Author Organization [facility] Address [address] [place] [address] Care Team Providers Care Textile Machine Mechanic Name Role Phone Kameron Zuñiga MD Unavailable Katya Lopez NP Unavailable Unavailab le Kathy Christopher MD Primary Care Prov ider Be Pacheco NP Unavailable [phone] Maycol Infante MD Unavailable Unavailable Sebastian Martinez MD Unavailable UnavailEve Blackmon MD Unavailable Elisa Romero NP Unavailable [phone] Marcus Murcia DO Unavailable Unavailable Encounter Details Date Type Department Care Team Description 10/30/2023 Construction Recruiter Report Medical Records [address] [place] [address] Lalitha Diego, [facility]- Social History Tobacco Use Types Packs/Day [...] on filedocumented in this encounter Care Teams Textile Machine Mechanic Relationship Specialty Start Date End Date Kathy Christopher MD [address] [place] [address] [phone] PCP - General Internal Medicine 01/21/22 Kameron Zuñiga MD Home Assessment Nurse Cardiovascular Disease 08/04/21 Katya Lopez, IRMA Cardiology 08/04/21 01/30/24 Be Pacheco NP [address] [place] [address] 12537 Nurse Practitioner Cardiology 10/17/22 01/30/24 Maycol Infante MD [address] [place] [address] 39208 Specialist Pulmonology 10/19/22 Sebastian Martinez MD [address] [place] [address] Specialist Ophthalmology 03/21/23 Eve Juan MD [address] [place] [address] [place] [address] Specialist UROGYNECOLOGY 03/21/23 Elisa Romero NP [address] [place] [address] [place] [address] Cardiology 01/31/24 Marcus Murcia DO [address] [place] [address] [place] [address] Specialist Physiatry 03/26/24 documented as of this encounter
--- OUTSIDE RECORDS SUMMARY | 2025-05-09 15:26 | XMS_ITS | Encounter Summary ---
Author Organization [facility] Address [address] [place] [address] Care Team Providers Care Pipe Fitter Welding Name Role Phone Kameron Zuñiga MD Unavailable Katya Lopez NP Unavailable Unavailab le Kathy Christopher MD Primary Care Prov ider Be Pacheco NP Unavailable [phone] Maycol Infante MD Unavailable Unavailable Sebastian Martinez MD Unavailable UnavailEve Blackmon MD Unavailable Elisa Romero NP Unavailable [phone] Marcus Murcia DO Unavailable Unavailable Encounter Details Date Type Department Care Team Description 09/19/2023 Line Crewman Report Medical Records [address] [place] [address]99 Pierre Oliva, PAAdelaidaC Social History Tobacco Use [...] filedocumented in this encounter Care Teams Pipe Fitter Welding Relationship Specialty Start Date End Date Kathy Christopher MD [address] [place] [address] [phone] PCP - General Internal Medicine 01/21/22 Kameron Zuñiga MD Fire Dispatcher Cardiovascular Disease 08/04/21 Katya Lopez NP Cardiology 08/04/21 01/30/24 Be Pacheco NP [address] [place] [address] 42051 Nurse Practitioner Cardiology 10/17/22 01/30/24 Maycol Infante MD [address] [place] [address] 26294 Specialist Pulmonology 10/19/22 Sebastian Martinez MD [address] [place] [address] Specialist Ophthalmology 03/21/23 Eve Juan MD [address] [place] [address] [place] [address] Specialist UROGYNECOLOGY 03/21/23 Elisa Romero NP [address] [place] [address] [place] [address] Cardiology 01/31/24 Marcus Murcia DO [address] [place] [address] [place] [address] Specialist Physiatry 03/26/24 documented as of this encounter
--- OUTSIDE RECORDS SUMMARY | 2025-05-09 15:26 | XMS_ITS | Encounter Summary ---
Author Organization [facility] Address [address] [place] [address] Care Team Providers Care Surgery Scheduling Coordinator Name Role Phone Wiley Thompson MD Primary Care Provider Kameron Cornejo MD Unavailable Katya Lopez NP Unavailable Unavailab Kathy Haley MD Primary Care Prov ider Be Pacheco NP Unavailable Maycol Infante MD Unavailable Unavailable Sebastian Martinez MD Unavailable UnavailEve Blackmon MD Unavailable Elisa Romero NP Unavailable [phone] Marcus Murcia DO Unavailable Unavailable Encounter Details Date Type Department Care Team Description 04/22/2019 Release of Information Medical Records [address] [place] [address] 17[address] Abstract, Provider Social History Tobacco Use Types [...] filedocumented in this encounter Care Teams Surgery Scheduling Coordinator Relationship Specialty Start Date End Date Wiley Thompson MD PCP - General Internal Medicine 06/04/14 01/20/22 Kathy Christopher MD [address] [place] [address] 97001 PCP - General Internal Medicine 01/21/22 Kameron Zuñiga MD Veterans Contact Representative Cardiovascular Disease 08/04/21 Katya Lopez NP Cardiology 08/04/21 01/30/24 Be Pacheco NP [address] [place] [address] 64281 Nurse Practitioner Cardiology 10/17/22 01/30/24 Maycol Infante MD [address] [place] [address] 82797 Specialist Pulmonology 10/19/22 Sebastian Martinez MD [address] [place] [address] 67053 Specialist Ophthalmology 03/21/23 Eve Juan MD [address] [place] [address] [place] [address] Specialist UROGYNECOLOGY 03/21/23 Elisa Romero NP [address] [place] [address] [place] [address] Cardiology 01/31/24 Marcus Murcia DO [address] [place] [address] [place] [address] Specialist Physiatry 03/26/24 documented as of this encounter
--- OUTSIDE RECORDS SUMMARY | 2025-05-09 15:26 | XMS_ITS | Encounter Summary ---
Author Organization [facility] Address [address] [place] [address] Care Team Providers Care Noodle Press Operator Name Role Phone Wiley Thompson MD Primary Care Provider Kameron Cornejo MD Unavailable Katya Lopez ELECTROMECHANIC Unavailable Unavailab Kathy Christopher MD Primary Care Prov ider Be Pacheco NP Unavailable [phone] Maycol Infante MD Unavailable Unavailable Sebastian Martinez MD Unavailable UnavailEve Blackmon MD Unavailable Elisa Romero NP Unavailable [phone] Marcus Murcia DO Unavailable Unavailable Encounter Details Date Type Department Care Team Description 09/20/2017 Porcelain Waxer Report Medical Records [address] [place] [address] 95270 Pallavi Henry MD Social History Tobacco Use [...] on filedocumented in this encounter Care Teams Noodle Press Operator Relationship Specialty Start Date End Date Wiley Thompson MD PCP - General Internal Medicine 06/04/14 01/20/22 Kathy Christopher MD [address] [place] [address]60 PCP - General Internal Medicine 01/21/22 Kameron Zuñiga MD Hedis Manager Cardiovascular Disease 08/04/21 Katya Lopez, IRMA Cardiology 08/04/21 01/30/24 Be Pacheco NP [address] [place] [address] 52101 Nurse Practitioner Cardiology 10/17/22 01/30/24 Maycol Infante MD [address] [place] [address] 08139 Specialist Pulmonology 10/19/22 Sebastian Martinez MD [address] [place] [address] 08118 Specialist Ophthalmology 03/21/23 Eve Juan MD [address] [place] [address] [place] [address] Specialist UROGYNECOLOGY 03/21/23 Elisa Romero NP [address] [place] [address] [place] [address] Cardiology 01/31/24 Marcus Murcia DO [address] [place] [address] [place] [address] Specialist Physiatry 03/26/24 documented as of this encounter
--- OUTSIDE RECORDS SUMMARY | 2025-05-09 15:26 | XMS_ITS | Encounter Summary ---
Author Organization [facility] Address [address] [place] [address] Care Team Providers Care Wet Milling Wheel Operator Name Role Phone Wiley Thompson MD Primary Care Provider Kameron Cornejo MD Unavailable Katya Lopez NP Unavailable Unavailab Kathy Haley MD Primary Care Prov ider Be Pacheco NP Unavailable [phone] Maycol Infante MD Unavailable Unavailable Sebastian Martinez MD Unavailable UnavailEve Blackmon MD Unavailable Elisa Romero NP Unavailable [phone] Marcus Murcia DO Unavailable Unavailable Reason for Visit * Reason Onset Date Comments DME Request 07/11/2019 Encounter Details Date Type Department Care Team Description 07/11/2019 Telephone Adult Medicine [address] [address] Wiley Thompson MD DME Request Social History [...] 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 Recurrent HSV (herpes simplex virus) B00.9 ??? IBS (irritable bowel syndrome) K58.9 ??? Iron deficiency anemia due to chronic blood loss D50.0 ??? CKD (chronic kidney disease) stage 3, GFR 30-59 ml/min ([facility]) N18.3 ??? Chronic shoulder pain M25.519, G89.29 ??? Lower extremity edema R60.0 ??? Subclinical hyperthyroidism E05.90 ??? Obstructive sleep apnea moderate HAYLEY 16 with nocturnal hypoxia G47.33 ??? COPD (chronic obstructive pulmonary disease) ([facility]) J44.9 ??? Supplemental oxygen dependent Z99.81 [...] on filedocumented in this encounter Care Teams Wet Milling Wheel Operator Relationship Specialty Start Date End Date Wiley Thompson MD PCP - General Internal Medicine 06/04/14 01/20/22 Kathy Christopher MD [address] [place] [address] 00384 PCP - General Internal Medicine 01/21/22 Kameron Zuñiga MD Hog Feeder Cardiovascular Disease 08/04/21 Katya Lopez NP Cardiology 08/04/21 01/30/24 Be Pacheco NP [address] [place] [address] 18996 Nurse Practitioner Cardiology 10/17/22 01/30/24 Maycol Infante MD [address] [place] [address] 40546 Specialist Pulmonology 10/19/22 Sebastian Martinez MD [address] [place] [address] 93409 Specialist Ophthalmology 03/21/23 Eve Juan MD [address] [place] [address] [place] [address] Specialist UROGYNECOLOGY 03/21/23 Elisa Romero NP [address] [place] [address] [place] [address] Cardiology 01/31/24 Marcus Murcia DO [address] [place] [address] [place] [address] Specialist Physiatry 03/26/24 documented as of this encounter
--- OUTSIDE RECORDS SUMMARY | 2025-05-09 15:26 | XMS_ITS | Encounter Summary ---
Author Organization [facility] Address [address] [place] [address] Care Team Providers Care Chef Assistant Name Role Phone Wiley Thompson MD Primary Care Provider Kameron Cornejo MD Unavailable Katya Lopez NP Unavailable Unavailab Kathy Haley MD Primary Care Prov ider Be Pacheco NP Unavailable Maycol Infante MD Unavailable Unavailable Sebastian Martinez MD Unavailable UnavailEve Blackmon MD Unavailable Elisa Romero NP Unavailable [phone] Marcus Murcia DO Unavailable Unavailable Reason for Visit * Reason Onset Date Comments refill request 08/07/2019 Encounter Details Date Type Department Care Team Description 08/07/2019 Refill Adult Medicine [address] [address] Wiley Thompson MD refill request Social History [...] current insurance carrier is: Payor: [facility] / Plan: O $0 [facility] [id number] / Product Type: HMO [id number] documented in this encounter Plan of Treatment Not on file documented as of this encounter Visit Diagnoses Not on filedocumented in this encounter Care Teams Chef Assistant Relationship Specialty Start Date End Date Wiley Thompson MD PCP - General Internal Medicine 06/04/14 01/20/22 Kathy Christopher MD [address] [place] [address] 66860 PCP - General Internal Medicine 01/21/22 Kameron Zuñiga MD Recruiter Manager Cardiovascular Disease 08/04/21 Katya Lopez NP Cardiology 08/04/21 01/30/24 Be Pacheco NP [address] [place] [address] 08396 Nurse Practitioner Cardiology 10/17/22 01/30/24 Maycol Infante MD [address] [place] [address] 31889 Specialist Pulmonology 10/19/22 Sebastian Martinez MD [address] [place] [address] 61488 Specialist Ophthalmology 03/21/23 Eve Juan MD [address] [place] [address] [place] [address] Specialist UROGYNECOLOGY 03/21/23 Elisa Romero NP [address] [place] [address] [place] [address] Cardiology 01/31/24 Marcus Murcia DO [address] [place] [address] [place] [address] Specialist Physiatry 03/26/24 documented as of this encounter
--- OUTSIDE RECORDS SUMMARY | 2025-05-09 15:26 | XMS_ITS | Encounter Summary ---
Author Organization [facility] Address [address] [place] [address] Care Team Providers Care Escrow Manager Name Role Phone Bri Santacruz MD Primary Care Provider Unavailable Wiley Thompson MD Primary Care Provider Kameron Cornejo MD Unavailable Katya Lopez NP Unavailable Unavailab Kathy Haley MD Primary Care Prov ider Be Pacheco BIOLOGY LABORATORY ASSISTANT Unavailable [phone] Maycol Infante MD Unavailable Unavailable Sebastian Martinez MD Unavailable UnavailEve Blackmon MD Unavailable Elisa Romero NP Unavailable [phone] Marcus Murcia DO Unavailable Unavailable Encounter Details Date Type Department Care Team Description 03/15/2013 Release of Information Medical Records [address] [place] [address]68 Abstract, Provider Social History Tobacco Use Types [...] on filedocumented in this encounter Care Teams Escrow Manager Relationship Specialty Start Date End Date Bri Santacruz MD PCP - General Internal Medicine 04/23/12 06/03/14 Wiley Thompson MD PCP - General Internal Medicine 06/04/14 01/20/22 Kathy Christopher MD [address] [place] [address] 73447 PCP - General Internal Medicine 01/21/22 Kameron Zuñiga MD Bio Medical Technician Cardiovascular Disease 08/04/21 Katya Lopez, IRMA Cardiology 08/04/21 01/30/24 Be Pacheco NP [address] [place] [address] 03764 Nurse Practitioner Cardiology 10/17/22 01/30/24 Maycol Infante MD [address] [place] [address] 47249 Specialist Pulmonology 10/19/22 Sebastian Martinez MD [address] [place] [address] 61818 Specialist Ophthalmology 03/21/23 Eve Juan MD [address] [place] [address] [place] [address] Specialist UROGYNECOLOGY 03/21/23 Elisa Romero, IRMA [address] [place] [address] [place] [address] Cardiology 01/31/24 Marcus Murcia DO [address] [place] [address] [place] [address] Specialist Physiatry 03/26/24 documented as of this encounter
--- OUTSIDE RECORDS SUMMARY | 2025-05-09 15:26 | XMS_ITS | Encounter Summary ---
Author Organization [facility] Address [address] [place] [address] Care Team Providers Care Supervisory Historian Name Role Phone Wiley Thompson MD Primary Care Provider Kameron Cornejo MD Unavailable Katya Lopez NP Unavailable Unavailab Kathy Haley MD Primary Care Prov ider Be Pacheco NP Unavailable [phone] Maycol Infante MD Unavailable Unavailable Sebastian Martinez MD Unavailable UnavailEve Blackmon MD Unavailable Elisa Romero NP Unavailable [phone] Marcus Murcia DO Unavailable Unavailable Encounter Details Date Type Department Care Team Description 09/24/2019 Medical Anthropology Director Report Medical Records [address] [place] [address] Matti Bansal Social History Tobacco Use Types [...] on filedocumented in this encounter Care Teams Supervisory Historian Relationship Specialty Start Date End Date Wiley Thompson MD PCP - General Internal Medicine 06/04/14 01/20/22 Kathy Christopher MD [address] [place] [address] 74953 PCP - General Internal Medicine 01/21/22 Kmaeron Zuñiga MD Top Trimmer Cardiovascular Disease 08/04/21 Katya Lopez NP Cardiology 08/04/21 01/30/24 Be Pacheco NP [address] [place] [address] 38948 Nurse Practitioner Cardiology 10/17/22 01/30/24 Maycol Inafnte MD [address] [place] [address] 07248 Specialist Pulmonology 10/19/22 Sebastian Martinez MD [address] [place] [address] 88852 Specialist Ophthalmology 03/21/23 Eve Juan MD [address] [place] [address] [place] [address] Specialist UROGYNECOLOGY 03/21/23 Elisa Romero NP [address] [place] [address] [place] [address] Cardiology 01/31/24 Marcus Murcia DO [address] [place] [address] [place] [address] Specialist Physiatry 03/26/24 documented as of this encounter
--- OUTSIDE RECORDS SUMMARY | 2025-05-09 15:26 | XMS_ITS | Encounter Summary ---
Author Organization [facility] Address [address] [place] [address] Care Team Providers Care Senior Clinical Study Manager Name Role Phone Wiley Thompson MD Primary Care Provider Kameron Cornejo MD Unavailable Katya Lopez NP Unavailable Unavailab Kathy Haley MD Primary Care Prov ider Be Pacheco NP Unavailable Maycol Infante MD Unavailable Unavailable Sebastian Martinez MD Unavailable UnavailEve Blackmon MD Unavailable Elisa Romero NP Unavailable [phone] Marcus Murcia DO Unavailable Unavailable Encounter Details Date Type Department Care Team Description 01/10/2019 Orders Only General Surgery - [address] [place] [address] Ivan Reddy MD [address] [place] [address] [phone] Mammographic microcalcification (Primary Dx) Social History Tobacco [...] Primary documented in this encounter Care Teams Senior Clinical Study Manager Relationship Specialty Start Date End Date Wiley Thompson MD PCP - General Internal Medicine 06/04/14 01/20/22 Kathy Christopher MD [address] [place] [address] 10965 PCP - General Internal Medicine 01/21/22 Kameron Zuñiga MD Capacity Management Specialist Cardiovascular Disease 08/04/21 Katya Lopez NP Cardiology 08/04/21 01/30/24 Be Pacheco NP [address] [place] [address] 88655 Nurse Practitioner Cardiology 10/17/22 01/30/24 Maycol Infante MD [address] [place] [address] 75163 Specialist Pulmonology 10/19/22 Sebastian Martinez MD [address] [place], [place] [address] Specialist Ophthalmology 03/21/23 Eve Juan MD [address] [place] [address] [place] [address] Specialist UROGYNECOLOGY 03/21/23 Elisa Romero NP [address] [place] [address] [place] [address] Cardiology 01/31/24 Marcus Murcia DO [address] [place] [address] [place] [address] Specialist Physiatry 03/26/24 documented as of this encounter
--- OUTSIDE RECORDS SUMMARY | 2025-05-09 15:26 | XMS_ITS | Encounter Summary ---
Author Organization [facility] Address [address] [place] [address] Care Team Providers Care Nutrition Intern Name Role Phone Wiley Thompson MD Primary Care Provider Kameron Cornejo MD Unavailable Katya Lopez NP Unavailable Unavailab Kathy Christopher MD Primary Care Prov ider Be Pacheco NP Unavailable [phone] Maycol Infante MD Unavailable Unavailable Sebastian Martinez MD Unavailable UnavailEve Blackmon MD Unavailable Elisa Romero NP Unavailable [phone] Marcus Murcia DO Unavailable Unavailable Encounter Details Date Type Department Care Team Description 03/09/2015 Transfer Records Medical Records [address] [place] [address] [facility] Social History Tobacco Use Types Packs/Day [...] on filedocumented in this encounter Care Teams Nutrition Intern Relationship Specialty Start Date End Date Wiley Thompson MD PCP - General Internal Medicine 06/04/14 01/20/22 Kathy Christopher MD [address] [place] [address] 11266 PCP - General Internal Medicine 01/21/22 Kameron Zuñiga MD Garment Finisher Cardiovascular Disease 08/04/21 Katya Lopez NP Cardiology 08/04/21 01/30/24 Be Pacheco NP [address] [place] [address] 34147 Nurse Practitioner Cardiology 10/17/22 01/30/24 Maycol Infante MD [address] [place] [address] 92285 Specialist Pulmonology 10/19/22 Sebastian Martinez MD [address] [place], [place] [address] Specialist Ophthalmology 03/21/23 Eve Juan MD [address] [place] [address] [place] [address] Specialist UROGYNECOLOGY 03/21/23 Elisa Romero NP [address] [place] [address] [place] [address] Cardiology 01/31/24 Marcus Murcia DO [address] [place] [address] [place] [address] Specialist Physiatry 03/26/24 documented as of this encounter
--- OUTSIDE RECORDS SUMMARY | 2025-05-09 15:26 | XMS_ITS | Encounter Summary ---
Author Organization [facility] Address [address] [place] [address] Care Team Providers Care Lubrication Worker Name Role Phone Wiley Thompson MD Primary Care Provider Kameron Cornejo MD Unavailable Katya Lopez NP Unavailable Unavailab Kathy Haley MD Primary Care Prov ider Be Pacheco NP Unavailable [phone] Maycol Infante MD Unavailable Unavailable Sebastian Martinez MD Unavailable UnavailEve Blackmon MD Unavailable Elisa Romero NP Unavailable [phone] Marcus Murcia DO Unavailable Unavailable Encounter Details Date Type Department Care Team Description 01/30/2019 Mouthpiece Maker Report Medical Records [address] [place] [address] Vivek Johnson Social History Tobacco Use Types [...] on filedocumented in this encounter Care Teams Lubrication Worker Relationship Specialty Start Date End Date Wiley Thompson MD PCP - General Internal Medicine 06/04/14 01/20/22 Kathy Christopher MD [address] [place] [address] 04712 PCP - General Internal Medicine 01/21/22 Kameron Zuñiga MD Corporate Law Specialist Cardiovascular Disease 08/04/21 Katya Lopez NP Cardiology 08/04/21 01/30/24 Be Pacheco NP [address] [place] [address] Nurse Practitioner Cardiology 10/17/22 01/30/24 Maycol Infante MD [address] [place] [address] Specialist Pulmonology 10/19/22 Sebastian Martinez MD [address] [place] [address] 13185 Specialist Ophthalmology 03/21/23 Eve Juan MD [address] [place] [address] [place] [address] Specialist UROGYNECOLOGY 03/21/23 Elisa Romero NP [address] [place] [address] [place] [address] Cardiology 01/31/24 Marcus Murcia DO [address] [place] [address] [place] [address] Specialist Physiatry 03/26/24 documented as of this encounter
--- OUTSIDE RECORDS SUMMARY | 2025-05-09 15:26 | XMS_ITS | Encounter Summary ---
Author Organization [facility] Address [address] [place] [address] Care Team Providers Care Basket Hand Weaver Name Role Phone Kameron Zuñiga MD Unavailable Katya Lopez NP Unavailable Unavailab Kathy Haley MD Primary Care Prov ider Be Pacheco NP Unavailable [phone] Maycol Infante MD Unavailable Unavailable Sebastian Martinez MD Unavailable UnavailEve Blackmon MD Unavailable Elisa Romero NP Unavailable [phone] Marcus Murcia DO Unavailable Unavailable Encounter Details Date Type Department Care Team Description 09/11/2023 Walk In Clinic Visit Medical Records [address] [place] [id number] [place] [address], [facility] Walk-In 1962 [place] [address] Social History Tobacco Use Types Packs/Day Years [...] on filedocumented in this encounter Care Teams Basket Hand Weaver Relationship Specialty Start Date End Date Kathy Christopher MD [address] [place] [address] PCP - General Internal Medicine 01/21/22 Kameron Zuñiga MD Supervisor Cloth Winding Cardiovascular Disease 08/04/21 Katya Lopez NP Cardiology 08/04/21 01/30/24 Be Pacheco NP [address] [place] [address] 10036 Nurse Practitioner Cardiology 10/17/22 01/30/24 Maycol Infante MD [address] [place] [address] Specialist Pulmonology 10/19/22 Sebastian Martinez MD [address] [place], [place] [phone] Specialist Ophthalmology 03/21/23 Eve Juan MD [address] [place] [address] [place] [address] Specialist UROGYNECOLOGY 03/21/23 Elisa Romero NP [address] [place] [address] [place] [address] Cardiology 01/31/24 Marcus Murcia DO [address] [place] [address] [place] [address] Specialist Physiatry 03/26/24 documented as of this encounter
--- OUTSIDE RECORDS SUMMARY | 2025-05-09 15:26 | XMS_ITS | Encounter Summary ---
Author Organization [facility] Address [address] [place] [address] Care Team Providers Care Breastfeeding Program Coordinator Name Role Phone Bri Santacruz MD Primary Care Provider Unavailable Wiley Thompson MD Primary Care Provider Kameron Corenjo MD Unavailable Katya Lopez NP Unavailable Unavailab Kathy Haley MD Primary Care Prov ider Be Pacheco NP Unavailable [phone] Maycol Infante MD Unavailable Unavailable Sebastian Martinez MD Unavailable UnavailEve Blackmon MD Unavailable Elisa Romero NP Unavailable [phone] Marcus Murcia DO Unavailable Unavailable Encounter Details Date Type Department Care Team Description 03/13/2013 Telephone Adult Medicine [address] [address] Bri Santacruz MD Social History Tobacco Use [...] on filedocumented in this encounter Care Teams Breastfeeding Program Coordinator Relationship Specialty Start Date End Date Bri Santacruz MD PCP - General Internal Medicine 04/23/12 06/03/14 Wiley Thompson MD PCP - General Internal Medicine 06/04/14 01/20/22 Kathy Christopher MD [address] [place] [address] PCP - General Internal Medicine 01/21/22 Kameron Zuñiga MD Atmospheric Physics Professor Cardiovascular Disease 08/04/21 Katya Lopez NP Cardiology 08/04/21 01/30/24 Be Pacheco NP [address] [place] [address] Nurse Practitioner Cardiology 10/17/22 01/30/24 Maycol Infante MD [address] [place] [address] Specialist Pulmonology 10/19/22 Sebastian Martinez MD [address] [place] [address] Specialist Ophthalmology 03/21/23 Eve Juan MD [address] [place] [address] [place] [address] Specialist UROGYNECOLOGY 03/21/23 Elisa Romero NP [address] [place] [address] [place] [address] Cardiology 01/31/24 Marcus Murcia DO [address] [place] [address] [place] [address] Specialist Physiatry 03/26/24 documented as of this encounter
--- OUTSIDE RECORDS SUMMARY | 2025-05-09 15:26 | XMS_ITS | Encounter Summary ---
Author Organization [facility] Address [address] [place] [address] Care Team Providers Care Hand Spring Repairer Name Role Phone Wiley Thompson MD Primary Care Provider Kameron Cornejo MD Unavailable Katya Lopez NP Unavailable Unavailab Kathy Haley MD Primary Care Prov ider Be Pacheco NP Unavailable [phone] Maycol Infante MD Unavailable Unavailable Sebastian Martinez MD Unavailable UnavailEve Blackmon MD Unavailable Elisa Romero NP Unavailable Marcus Murcia DO Unavailable Unavailable Encounter Details Date Type Department Care Team Description 02/07/2019 Orders Only Allergy [place] [address] [place] [address] Oumou Lutz PA-C UTI symptoms [...] Primary documented in this encounter Care Teams Hand Spring Repairer Relationship Specialty Start Date End Date Wiley Thompson MD PCP - General Internal Medicine 06/04/14 01/20/22 Kathy Christopher MD [address] [place] [address] PCP - General Internal Medicine 01/21/22 Kameron Zuñiga MD Comparator Operator Cardiovascular Disease 08/04/21 Katya Lopez NP Cardiology 08/04/21 01/30/24 Be Pacheco NP [address] [place] [address] Nurse Practitioner Cardiology 10/17/22 01/30/24 Maycol Infante MD [address] [place] [address] Specialist Pulmonology 10/19/22 Sebastian Martinez MD [address] [place] [address] Specialist Ophthalmology 03/21/23 Eve Juan MD [address] [place] [address] [place] [address] Specialist UROGYNECOLOGY 03/21/23 Elisa Romero NP [address] [place] [address] [place] [address] Cardiology 01/31/24 Marcus Murcia DO [address] [place] [address] [place] [address] Specialist Physiatry 03/26/24 documented as of this encounter
--- OUTSIDE RECORDS SUMMARY | 2025-05-09 15:26 | XMS_ITS | Encounter Summary ---
Author Organization [facility] Address [address] [place] [address] Care Team Providers Care Cup Setter Lockstitch Name Role Phone Wiley Thompson MD Primary Care Provider Kameron Cornejo MD Unavailable Katya Lopez NP Unavailable Unavailab Kathy Haley MD Primary Care Prov ider Be Pacheco NP Unavailable [phone] Maycol Infante MD Unavailable Unavailable Sebastian Martinez MD Unavailable UnavailEve Blackmon MD Unavailable Elisa Romero NP Unavailable [phone] Marcus Murcia DO Unavailable Unavailable Reason for Visit * Reason Comments E-prescribe Rx Request Encounter Details Date Type Department Care Team Description 08/15/2017 Refill Adult Medicine [address] [address] Wiley Thompson MD E-prescribe Rx Request Social [...] NO Patients current insurance carrier is: Payor: [facility] MCR / Plan: ipDatatel $0 [email or web address] [id number] / Product Type: GevoO Knr-fiv-Czvayiq documented in this encounter Plan of Treatment Not on file documented as of this encounter Visit Diagnoses Not on filedocumented in this encounter Care Teams Cup Setter Lockstitch Relationship Specialty Start Date End Date Wiley Thompson MD PCP - General Internal Medicine 06/04/14 01/20/22 Kathy Christopher MD [address] [place] [address] PCP - General Internal Medicine 01/21/22 Kameron Zuñiga MD Construction Cost Estimator Cardiovascular Disease 08/04/21 Katya Lopez NP Cardiology 08/04/21 01/30/24 Be Pacheco NP [address] [place] [address] Nurse Practitioner Cardiology 10/17/22 01/30/24 Maycol Infante MD [address] [place] [address] Specialist Pulmonology 10/19/22 Sebastian Martinez MD [address] [place] [address] Specialist Ophthalmology 03/21/23 Eve Juan MD [address] [place] [address] [place] [address] Specialist UROGYNECOLOGY 03/21/23 Elisa Romero NP [address] [place] [address] [place] [address] Cardiology 01/31/24 Marcus Murcia DO [address] [place] [address] [place] [address] Specialist Physiatry 03/26/24 documented as of this encounter
--- OUTSIDE RECORDS SUMMARY | 2025-05-09 15:26 | XMS_ITS | Encounter Summary ---
Author Organization [facility] Address [address] [place] [address] Care Team Providers Care Senior Project Engineer Name Role Phone Wiley Thompson MD Primary Care Provider Kameron Cornejo MD Unavailable Katya Lopez NP Unavailable Unavailab Kathy Christopher MD Primary Care Prov ider Be Pacheco NP Unavailable [phone] Maycol Infante MD Unavailable Unavailable Sebastian Martinez MD Unavailable UnavailEve Blackmon MD Unavailable Elisa Romero NP Unavailable [phone] Marcus Murcia DO Unavailable Unavailable Encounter Details Date Type Department Care Team Description 01/02/2018 Hospital Medical Records [address] [place] [address] Jayesh Villa Social History Tobacco Use Types [...] filedocumented in this encounter Care Teams Senior Project Engineer Relationship Specialty Start Date End Date Wiley Thompson MD PCP - General Internal Medicine 06/04/14 01/20/22 Kathy Christopher MD [address] [place] [address] PCP - General Internal Medicine 01/21/22 Kameron Zuñiga MD Corrective And Manual Arts Therapist Cardiovascular Disease 08/04/21 Katya Lopez, IRMA Cardiology 08/04/21 01/30/24 Be Pacheco NP [address] [place] [address] Nurse Practitioner Cardiology 10/17/22 01/30/24 Maycol Infante MD [address] [place] [address] Specialist Pulmonology 10/19/22 Sebastian Martinez MD [address] [place] [address] Specialist Ophthalmology 03/21/23 Eve Juan MD [address] [place] [address] [place] [address] Specialist UROGYNECOLOGY 03/21/23 Elisa Romero NP [address] [place] [address] [place] [address] Cardiology 01/31/24 Marcus Murcia DO [address] [place] [address] [place] [address] Specialist Physiatry 03/26/24 documented as of this encounter
--- OUTSIDE RECORDS SUMMARY | 2025-05-09 15:27 | XMS_ITS | Encounter Summary ---
Author Organization [facility] Address [address] [place] [address] Care Team Providers Care Carburizer Name Role Phone Wiley Thompson MD Primary [...] Team Description 04/24/2020 Hospital Medical Records [address] [place] [address] Rhianna Mcneill Social History Tobacco Use Types [...] on filedocumented in this encounter Care Teams Carburizer Relationship Specialty Start Date End Date Wiley Thompson MD PCP - General Internal Medicine 06/04/14 01/20/22 Kathy Christopher MD [address] [place] [address] PCP - General Internal Medicine 01/21/22 Kameron Zuñiga MD Building Rental Superintendent Cardiovascular Disease 08/04/21 Katya Lopez NP Cardiology 08/04/21 01/30/24 Be Pacheco NP [address] [place] [address] Nurse Practitioner Cardiology 10/17/22 01/30/24 Maycol Infante MD [address] [place] [address] Specialist Pulmonology 10/19/22 Sebastian Martinez MD [address] [place] [address] Specialist Ophthalmology 03/21/23 Eve Juan MD [address] [place] [address] [place] [address] Specialist UROGYNECOLOGY 03/21/23 Elisa Romero NP [address] [place] [address] [place] [address] Cardiology 01/31/24 Marcus Murcia DO [address] [place] [address] [place] [address] Specialist Physiatry 03/26/24 documented as of this encounter
--- OUTSIDE RECORDS SUMMARY | 2025-05-09 15:27 | XMS_ITS | Encounter Summary ---
Author Organization [facility] Address [address] [place] [address] Care Team Providers Care Friction Saw Operator Name Role Phone Kameron Zuñiga MD Unavailable Katya Lopez NP Unavailable Unavailab Kathy Haley MD Primary Care Prov ider Be Pacheco NP Unavailable [phone] Maycol Infante MD Unavailable Unavailable Sebastian Martinez MD Unavailable UnavailEve Blackmon MD Unavailable Elisa Romero NP Unavailable Marcus Murcia DO Unavailable Unavailable Encounter Details Date Type Department Care Team Description 10/14/2022 Manager Of Change Report Medical Records [address] [place] [address] Maycol Infante MD Social History Tobacco Use [...] on filedocumented in this encounter Care Teams Friction Saw Operator Relationship Specialty Start Date End Date Kathy Christopher MD [address] [place] [address] PCP - General Internal Medicine 01/21/22 Kameron Zuñiga MD Carton Catcher Cardiovascular Disease 08/04/21 Katya Lopez NP Cardiology 08/04/21 01/30/24 Be Pacheco NP [address] [place] [address] Nurse Practitioner Cardiology 10/17/22 01/30/24 Maycol Infante MD [address] [place] [address] Specialist Pulmonology 10/19/22 Sebastian Martinez MD [address] [place] [address] Specialist Ophthalmology 03/21/23 Eve Juan MD [address] [place] [address] [place] [address] Specialist UROGYNECOLOGY 03/21/23 Elisa Romero NP [address] [place] [address] [place] [address] Cardiology 01/31/24 Marcus Murcia DO [address] [place] [address] [place] [address] Specialist Physiatry 03/26/24 documented as of this encounter
--- OUTSIDE RECORDS SUMMARY | 2025-05-09 15:27 | XMS_ITS | Encounter Summary ---
Author Organization [facility] Address [address] [place] [address] Care Team Providers Care Hearing Therapy Director Name Role Phone Wiley Thompson MD Primary Care Provider Kameron Cornejo MD Unavailable Katya Lopez CLIENT CARE CONSULTANT Unavailable Unavailab Kathy Chrisotpher MD Primary Care Prov ider Be Pacheco NP Unavailable [phone] Maycol Infante MD Unavailable Unavailable Sebastian Martinez MD Unavailable UnavailEve Blackmon MD Unavailable Elisa Romero NP Unavailable [phone] Marcus Murcia DO Unavailable Unavailable Encounter Details Date Type Department Care Team Description 11/19/2019 Cement Worker Report Medical Records [address] [place] [address] Maycol Infante MD Social History Tobacco Use [...] filedocumented in this encounter Care Teams Hearing Therapy Director Relationship Specialty Start Date End Date Wiley Thompson MD PCP - General Internal Medicine 06/04/14 01/20/22 Kathy Christopher MD [address] [place] [address] PCP - General Internal Medicine 01/21/22 Kameron Zuñiga MD Mold Runner Cardiovascular Disease 08/04/21 Katya Lopez, IRMA Cardiology 08/04/21 01/30/24 Be Pacheco NP [address] [place] [address] Nurse Practitioner Cardiology 10/17/22 01/30/24 Maycol Infante MD [address] [place] [address] Specialist Pulmonology 10/19/22 Sebastian Martinez MD [address] [place] [address] Specialist Ophthalmology 03/21/23 Eve Juan MD [address] [place] [address] [place] [address] Specialist UROGYNECOLOGY 03/21/23 Elisa Romero NP [address] [place] [address] [place] [address] Cardiology 01/31/24 Marcus Murcia DO [address] [place] [address] [place] [address] Specialist Physiatry 03/26/24 documented as of this encounter
--- OUTSIDE RECORDS SUMMARY | 2025-05-09 15:27 | XMS_ITS | Encounter Summary ---
Author Organization [facility] Address [address] [place] [address] Care Team Providers Care Tape Fastener Machine Operator Name Role Phone Wiley Thompson MD Primary Care Provider Kameron Cornejo MD Unavailable Katya Lopez NP Unavailable Unavailab Kathy Haley MD Primary Care Prov ider Be Pacheco NP Unavailable [phone] Maycol Infante MD Unavailable Unavailable Sebastian Martinez MD Unavailable UnavailEve Blackmon MD Unavailable Elisa Romero NP Unavailable [phone] Marcus Murcia DO Unavailable Unavailable Encounter Details Date Type Department Care Team Description 06/15/2020 Hospital Medical Records [address] [place] [address] Christophe Sharp MD [address] [place] [address] [id number] Social History Tobacco Use Types Packs/Day Years [...] on filedocumented in this encounter Care Teams Tape Fastener Machine Operator Relationship Specialty Start Date End Date Wiley Thompson MD PCP - General Internal Medicine 06/04/14 01/20/22 Trina Rizo, Kathy Fried MD [address] [place] [address] PCP - General Internal Medicine 01/21/22 Kameron Zuñiga MD Pc Installation Engineer Cardiovascular Disease 08/04/21 Katya Lopez NP Cardiology 08/04/21 01/30/24 Be Pacheco NP [address] [place] [address] Nurse Practitioner Cardiology 10/17/22 01/30/24 Maycol Infante MD [address] [place] [address] Specialist Pulmonology 10/19/22 Sebastian Martinez MD [address] [place], [place] [address] Specialist Ophthalmology 03/21/23 Eve Juan MD [address] [place] [address] [place] [address] Specialist UROGYNECOLOGY 03/21/23 Elisa Romero NP [address] [place] [address] [place] [address] Cardiology 01/31/24 Marcus Murcia DO [address] [place] [address] [place] [address] Specialist Physiatry 03/26/24 documented as of this encounter
--- OUTSIDE RECORDS SUMMARY | 2025-05-09 15:27 | XMS_ITS | Encounter Summary ---
Author Organization [facility] Address [address] [place] [address] Care Team Providers Care Tax Technician Name Role Phone Wiley Thompson MD Primary Care Provider Kameron Cornejo MD Unavailable Katya Lopez NP Unavailable Unavailab Kathy Christopher MD Primary Care Prov ider Be Pacheco NP Unavailable [phone] Maycol Infante MD Unavailable Unavailable Sebastian Martinez MD Unavailable UnavailEve Blackmon MD Unavailable Elisa Romero NP Unavailable [phone] Marcus Murcia DO Unavailable Unavailable Encounter Details Date Type Department Care Team Description 01/09/2020 Big Data Admin Report Medical Records [address] [place] [address] Kartik An MD Social History Tobacco Use [...] on filedocumented in this encounter Care Teams Tax Technician Relationship Specialty Start Date End Date Wiley Thompson MD PCP - General Internal Medicine 06/04/14 01/20/22 Kathy Christopher MD [address] [place] [address] PCP - General Internal Medicine 01/21/22 Kameron Zuñiga MD Route Delivery Manager Cardiovascular Disease 08/04/21 Katya Lopez, IRMA Cardiology 08/04/21 01/30/24 Be Pacheco NP [address] [place] [address]473 Nurse Practitioner Cardiology 10/17/22 01/30/24 Maycol Infante MD [address] [place] [address] Specialist Pulmonology 10/19/22 Sebastian Martinez MD [address] [place] [address]84 Specialist Ophthalmology 03/21/23 Eve Juan MD [address] [place] [address] [place] [address] Specialist UROGYNECOLOGY 03/21/23 Elisa Romero NP [address] [place] [address] [place] [address] Cardiology 01/31/24 Marcus Murcia DO [address] [place] [address] [place] [address] Specialist Physiatry 03/26/24 documented as of this encounter
--- OUTSIDE RECORDS SUMMARY | 2025-05-09 15:27 | XMS_ITS | Encounter Summary ---
Author Organization [facility] Address [address] [place] [address] Care Team Providers Care Gas Pumping Station Helper Name Role Phone Wiley Thompson MD Primary Care Provider Kameron Cornejo MD Unavailable Katya Lopez NP Unavailable Unavailab Kathy Haley MD Primary Care Prov ider Be Pacheco NP Unavailable [phone] Maycol Infante MD Unavailable Unavailable Sebastian Martinez MD Unavailable UnavailEve Blackmon MD Unavailable Elisa Romero NP Unavailable [phone] Marcus Murcia DO Unavailable Unavailable Reason for Visit * Reason Comments E-prescribe Rx Request Encounter Details Date Type Department Care Team Description 10/21/2020 Refill Adult Medicine [address] [address] Wiley Thompson MD E-prescribe Rx Request Social [...] carrier is: Payor: [facility] MCR / Plan: HMO $0 [facility] [id number] / Product Type: HMO [id number] documented in this encounter Plan of Treatment Not on file documented as of this encounter Visit Diagnoses Diagnosis CAD (coronary artery disease), [place] coronary artery Coronary atherosclerosis of [place] coronary artery documented in this encounter Care Teams Gas Pumping Station Helper Relationship Specialty Start Date End Date Wiley Thompson MD PCP - General Internal Medicine 06/04/14 01/20/22 Kathy Christopher MD [address] [place] [address] PCP - General Internal Medicine 01/21/22 Kameron Zuñiga MD Lithograph Designer Cardiovascular Disease 08/04/21 Katya Lopez NP Cardiology 08/04/21 01/30/24 Be Pacheco NP [address] [place] [address] Nurse Practitioner Cardiology 10/17/22 01/30/24 Maycol Infante MD [address] [place] [address] Specialist Pulmonology 10/19/22 Sebastian Martinez MD [address] [place] [address]39 Specialist Ophthalmology 03/21/23 Eve Juan MD [address] [place] [address] [place] [address] Specialist UROGYNECOLOGY 03/21/23 Elisa Romero NP [address] [place] [address] [place] [address] Cardiology 01/31/24 Marcus Murcia DO [address] [place] [address] [place] [address] Specialist Physiatry 03/26/24 documented as of this encounter
--- OUTSIDE RECORDS SUMMARY | 2025-05-09 15:27 | XMS_ITS | Encounter Summary ---
Author Organization [facility] Address [address] [place] [address] Care Team Providers Care Retail District Manager Name Role Phone Kameron Zuñiga MD Unavailable Katya Lopez NP Unavailable Unavailab Kathy Haley MD Primary Care Prov ider Be Pacheco NP Unavailable [phone] Maycol Infante MD Unavailable Unavailable Sebastian Martinez MD Unavailable UnavailEve Blackmon MD Unavailable Elisa Romero NP Unavailable [phone] Marcus Murcia DO Unavailable Unavailable Reason for Visit * Reason Onset Date Comments hospital follow up 10/03/2022 Encounter Details Date Type Department Care Team Description 10/03/2022 Telephone Cardio PVCA Diag Testing [address] [place], [place] [id number] Kameron Zuñiga MD [address] [place] [address] [phone] hospital follow up Social History Tobacco Use [...] 24, 2022 at 3:30 PMI spoke with Seha and mailed an appointment reminder. * Telephone Encounter - Barry Fuentes - 10/03/2022 11:02 AM EDT Patient is calling stating she was [facility]22 for congestiveheart failure. documented in this encounter Plan of Treatment Not on file documented as of this encounter Visit Diagnoses Not on filedocumented in this encounter Care Teams Retail District Manager Relationship Specialty Start Date End Date Kathy Christopher MD [address] [place] [address] PCP - General Internal Medicine 01/21/22 Kameron Zuñiga MD Clinical Study Manager Cardiovascular Disease 08/04/21 Katya Lopez NP Cardiology 08/04/21 01/30/24 Be Pacheco NP [address] [place] [address] 16053 Nurse Practitioner Cardiology 10/17/22 01/30/24 Myacol Infante MD [address] [place] [address]896 Specialist Pulmonology 10/19/22 Sebastian Martinez MD [address] [place] [address]359 Specialist Ophthalmology 03/21/23 Eve Juan MD [address] [place] [address] [place] [address] Specialist UROGYNECOLOGY 03/21/23 Elisa Romero NP [address] [place] [address] [place] [address] Cardiology 01/31/24 Marcus Murcia DO [address] [facility] [place] [address] Specialist Physiatry 03/26/24 documented as of this encounter
--- OUTSIDE RECORDS SUMMARY | 2025-05-09 15:27 | XMS_ITS | Encounter Summary ---
Author Organization [facility] Address [address] [place] [address] Care Team Providers Care Glass Furnace Tender Name Role Phone Kameron Zuñiga MD Unavailable Katya Lopez NP Unavailable Unavailab Kathy Haley MD Primary Care Prov ider Be Pacheco NP Unavailable [phone] Maycol Infante MD Unavailable Unavailable Sebastian Martinez MD Unavailable UnavailEve Blackmon MD Unavailable Elisa Romero NP Unavailable [phone] Marcus Murcia DO Unavailable Unavailable Reason for Visit * Reason Comments E-prescribe Rx Request Encounter Details Date Type Department Care Team Description 08/05/2022 Refill Adult Medicine [address] [id number] Ratna Santa PA-C [address] [place] [address] [id number] E-prescribe Rx Request Social History Tobacco Use [...] Please review pharmacy refill request prescribed by [facility], thank you. * Telephone Encounter - [...] filedocumented in this encounter Care Teams Glass Furnace Tender Relationship Specialty Start Date End Date Kathy Christopher MD [address] [place] [address] 37788 PCP - General Internal Medicine 01/21/22 Kameron Zuñiga MD Sole Polisher Cardiovascular Disease 08/04/21 Katya Lopez NP Cardiology 08/04/21 01/30/24 Be Pacheco NP [address] [place] [address] 73091 Nurse Practitioner Cardiology 10/17/22 01/30/24 Maycol Infante MD [address] [place] [address] 42230 Specialist Pulmonology 10/19/22 Sebastian Martinez MD [address] [place], [place] [phone] Specialist Ophthalmology 03/21/23 Eve Juan MD [address] [place] [address] [place] [address] Specialist UROGYNECOLOGY 03/21/23 Elisa Romero NP [address] [place] [address] [place] [address] Cardiology 01/31/24 Marcus Murcia DO [address] [place] [address] [place] [address] Specialist Physiatry 03/26/24 documented as of this encounter
--- OUTSIDE RECORDS SUMMARY | 2025-05-09 15:27 | XMS_ITS | Encounter Summary ---
Author Organization [facility] Address [address] [place] [address] Care Team Providers Care Sewer And Drain Technician Name Role Phone Bri Santacruz MD Primary Care Provider Unavailable Wiley Thompson MD Primary Care Provider Kameron Cornejo MD Unavailable Katya Lopez NP Unavailable Unavailab Kathy Haley MD Primary Care Prov ider Be Pacheco NP Unavailable [phone] Maycol Infante MD Unavailable Unavailable Sebastian Martinez MD Unavailable UnavailEve Blackmon MD Unavailable Elisa Romero NP Unavailable [phone] Marcus Murcia DO Unavailable Unavailable Reason for Visit * Reason Onset Date Comments Headache 12/25/2013 Encounter Details Date Type Department Care Team Description 12/25/2013 Telephone Adult Medicine [address] [id number] Bri Santacruz MD Headache Social History Tobacco [...] had these symptoms?: PCP: Bri Santacruz Payor: [facility] MCR / Plan: HMO $0 [place] 148 / Product Type: O Yaf-tga-Ntzxeom documented in this encounter Plan of Treatment Not on file documented as of this encounter Visit Diagnoses Not on filedocumented in this encounter Care Teams Sewer And Drain Technician Relationship Specialty Start Date End Date Bri Santacruz MD PCP - General Internal Medicine 04/23/12 06/03/14 Wiley Thompson MD PCP - General Internal Medicine 06/04/14 01/20/22 Kathy Christopher MD [address] [place] [address] 66679 PCP - General Internal Medicine 01/21/22 Kameron Zuñiga MD Shoe Puller Cardiovascular Disease 08/04/21 Katya Lopez NP Cardiology 08/04/21 01/30/24 Be Pacheco NP [address] [place] [address] 76071 Nurse Practitioner Cardiology 10/17/22 01/30/24 Maycol Infante MD [address] [place] [address] 26916 Specialist Pulmonology 10/19/22 Sebastian Martinez MD [address] [place] [address] 10612 Specialist Ophthalmology 03/21/23 Eve Juan MD [address] [place] [address] [place] [address] Specialist UROGYNECOLOGY 03/21/23 Elisa Romero NP [address] [place] [address] [place] [address] Cardiology 01/31/24 Marcus Murcia DO [address] [place] [address] [place] [address] Specialist Physiatry 03/26/24 documented as of this encounter
--- OUTSIDE RECORDS SUMMARY | 2025-05-09 15:27 | XMS_ITS | Encounter Summary ---
Author Organization [facility] Address [address] [place] [address] Care Team Providers Care Carpet Floor Layer Apprentice Name Role Phone Wiley Thompson MD Primary Care Provider Kameron Cornejo MD Unavailable Katya Lopez NP Unavailable Unavailab Kathy Haley MD Primary Care Prov ider Be Pacheco NP Unavailable [phone] Maycol Infante MD Unavailable Unavailable Sebastian Martinez MD Unavailable UnavailEve Blackmon MD Unavailable Eilsa Romero NP Unavailable [phone] Marcus Murcia DO Unavailable Unavailable Reason for Visit * Reason Onset Date Comments Medication 06/08/2020 colon Encounter Details Date Type Department Care Team Description 06/08/2020 Refill Gastroenterology - [facility] [address] [facility] [address] [place] [address] Christophe Sharp MD [address] [place] [address] [phone] Medication (colon) Social History Tobacco Use Types [...] on filedocumented in this encounter Care Teams Carpet Floor Layer Apprentice Relationship Specialty Start Date End Date Wiley Thompson MD PCP - General Internal Medicine 06/04/14 01/20/22 Kathy Christopher MD [address] [place] [address] 35203 PCP - General Internal Medicine 01/21/22 Kameron Zuñiga MD Animal Technician Cardiovascular Disease 08/04/21 Katya Lopez NP Cardiology 08/04/21 01/30/24 Be Pacheco NP [address] [place] [address] 38814 Nurse Practitioner Cardiology 10/17/22 01/30/24 Maycol Infante MD [address] [place] [address] 86199 Specialist Pulmonology 10/19/22 Sebastian Martinez MD [address] [place] [address] 51083 Specialist Ophthalmology 03/21/23 Eve Juan MD [address] [place] [address] [place] [address] Specialist UROGYNECOLOGY 03/21/23 Elisa Romero NP [address] [place] [address] [place] [address] Cardiology 01/31/24 Marcus Murcia DO [address] [place] [address] [place] [address] Specialist Physiatry 03/26/24 documented as of this encounter
--- OUTSIDE RECORDS SUMMARY | 2025-05-09 15:27 | XMS_ITS | Encounter Summary ---
Author Organization [facility] Address [address] [place] [address] Care Team Providers Care Supervisor Wool Shearing Name Role Phone Wiley Thompson MD Primary Care Provider Kameron Cornejo MD Unavailable Katya Lopez NP Unavailable Unavailab Kathy Haley MD Primary Care Prov ider Be Pacheco NP Unavailable [phone] Maycol Infante MD Unavailable Unavailable Sebastian Martinez MD Unavailable UnavailEve Blackmon MD Unavailable Elisa Romero NP Unavailable [phone] Marcus Murcia DO Unavailable Unavailable Encounter Details Date Type Department Care Team Description 04/06/2018 Aggregate Conveyor Operator Report Medical Records [address] [place] [address] Matti Bansal Social History Tobacco Use Types [...] filedocumented in this encounter Care Teams Supervisor Wool Shearing Relationship Specialty Start Date End Date Wiley Thompson MD PCP - General Internal Medicine 06/04/14 01/20/22 Kathy Christopher MD [address] [place] [address] 61382 PCP - General Internal Medicine 01/21/22 Kameron Zuñiga MD Sort Worker Cardiovascular Disease 08/04/21 Katya Lopez NP Cardiology 08/04/21 01/30/24 Be Pacheco NP [address] [place] [address] 02747 Nurse Practitioner Cardiology 10/17/22 01/30/24 Maycol Infante MD [address] [place] [address] 85114 Specialist Pulmonology 10/19/22 Sebastian Martinez MD [address] [place] [address] 37950 Specialist Ophthalmology 03/21/23 Eve Juan MD [address] [place] [address] [place] [address] Specialist UROGYNECOLOGY 03/21/23 Elisa Romero NP [address] [place] [address] [place] [address] Cardiology 01/31/24 Marcus Murcia DO [address] [place] [address] [place] [address] Specialist Physiatry 03/26/24 documented as of this encounter
--- OUTSIDE RECORDS SUMMARY | 2025-05-09 15:27 | XMS_ITS | Encounter Summary ---
Author Organization [facility] Address [address] [place] [address] Care Team Providers Care Experimental Physicist Name Role Phone Kameron Zuñiga MD Unavailable Katya Lopez NP Unavailable Unavailab Kathy Haley MD Primary Care Prov ider Be Pacheco NP Unavailable [phone] Maycol Infante MD Unavailable Unavailable Sebastian Martinez MD Unavailable UnavailEve Blackmon MD Unavailable Elisa Romero NP Unavailable [phone] Marcus Murcia DO Unavailable Unavailable Reason for Visit * Reason Onset Date Comments other 01/31/2022 high blood press ure Encounter Details Date Type Department Care Team Description 01/31/2022 Telephone Cardio PVCA Diag Testing [address] [facility] [address] [place], [place] [id number] Kameron Zuñiga MD [address] [place] [address] [phone] other (high blood pressure) Social History Tobacco [...] concerned about her mother, daughter lives in [place]. I did try to call pt to [...] on filedocumented in this encounter Care Teams Experimental Physicist Relationship Specialty Start Date End Date Kathy Christopher MD [address] [place] [address]81 PCP - General Internal Medicine 01/21/22 Kameron Zuñiga MD Lease Analyst Cardiovascular Disease 08/04/21 Katya Lopez NP Cardiology 08/04/21 01/30/24 Be Pacheco NP [address] [place] [address] 78573 Nurse Practitioner Cardiology 10/17/22 01/30/24 Maycol Infante MD [address] [place] [address] 35662 Specialist Pulmonology 10/19/22 Sebastian Martinez MD [address] [place] [address] Specialist Ophthalmology 03/21/23 Eve Juan MD [address] [place] [address] [place] [address] Specialist UROGYNECOLOGY 03/21/23 Elisa Romero NP [address] [place] [address] [place] [address] Cardiology 01/31/24 Marcus Murcia DO [address] [place] [address] [place] [address] Specialist Physiatry 03/26/24 documented as of this encounter
--- OUTSIDE RECORDS SUMMARY | 2025-05-09 15:27 | XMS_ITS | Encounter Summary ---
Author Organization [facility] Address [address] [place] [address] Care Team Providers Care Collar Baster Name Role Phone Bri Santacruz MD Primary Care Provider Unavailable Wiley Thompson MD Primary Care Provider Kameron Cornejo MD Unavailable Katya Lopez NP Unavailable Unavailab Kathy Haley MD Primary Care Prov ider Be Pacheco NP Unavailable [phone] Maycol Infante MD Unavailable Unavailable Sebastian Martinez MD Unavailable UnavailEve Blackmon MD Unavailable Elisa Romero NP Unavailable [phone] Marcus Murcia DO Unavailable Unavailable Encounter Details Date Type Department Care Team Description 05/01/2014 Supervisor Order Takers Report Medical Records [address] [place] [address] 78369 Seema Canas MD Social History Tobacco Use [...] on filedocumented in this encounter Care Teams Collar Baster Relationship Specialty Start Date End Date Bri Santacruz MD PCP - General Internal Medicine 04/23/12 06/03/14 Wiley Thompson MD PCP - General Internal Medicine 06/04/14 01/20/22 Kathy Christopher MD [address] [place] [address] 34808 PCP - General Internal Medicine 01/21/22 Kameron Zuñiga MD Insert Operator Cardiovascular Disease 08/04/21 Katya Lopez NP Cardiology 08/04/21 01/30/24 Be Pacheco NP [address] [place] [address] 73621 Nurse Practitioner Cardiology 10/17/22 01/30/24 Maycol Infante MD [address] [place] [address] 24006 Specialist Pulmonology 10/19/22 Sebastian Martinez MD [address] [place], [place] [address] Specialist Ophthalmology 03/21/23 Eve Juan MD [address] [place] [address] [place] [address] Specialist UROGYNECOLOGY 03/21/23 Elisa Romero NP [address] [place] [address] [place] [address] Cardiology 01/31/24 Marcus Murcia DO [address] [place] [address] [place] [address] Specialist Physiatry 03/26/24 documented as of this encounter
--- OUTSIDE RECORDS SUMMARY | 2025-05-09 15:27 | XMS_ITS | Encounter Summary ---
Author Organization [facility] Address [address] [place] [address] Care Team Providers Care Flat Sheet Maker Name Role Phone Wiley Thompson MD Primary Care Provider Kameron Cornejo MD Unavailable Katya Lopez BEHAVIORAL INTERVENTIONIST Unavailable Unavailab Kathy Haley MD Primary Care Prov ider Be Pacheco BEHAVIORAL INTERVENTIONIST Unavailable [phone] Maycol Infante MD Unavailable Unavailable Sebastian Martinez MD Unavailable UnavailEve Blackmon MD Unavailable Elisa Romero NP Unavailable [phone] Marcus Murcia DO Unavailable Unavailable Encounter Details Date Type Department Care Team Description 02/07/2018 Livestock Agent Report Medical Records [address] [place] [address] Asya Waller, IMRA Social History Tobacco Use Types Packs/Day Years [...] on filedocumented in this encounter Care Teams Flat Sheet Maker Relationship Specialty Start Date End Date Wiley Thompson MD PCP - General Internal Medicine 06/04/14 01/20/22 Kathy Christopher MD [address] [place] [address] 15997 PCP - General Internal Medicine 01/21/22 Kameron Zuñiga MD Engineer Soils Cardiovascular Disease 08/04/21 Katya Lopez, IRMA Cardiology 08/04/21 01/30/24 Be Pacheco NP [address] [place] [address] Nurse Practitioner Cardiology 10/17/22 01/30/24 Maycol Infante MD [address] [place] [address] 67909 Specialist Pulmonology 10/19/22 Sebastian Martinez MD [address] [place] [address] 38001 Specialist Ophthalmology 03/21/23 Eve Juan MD [address] [place] [address] [place] [address] Specialist UROGYNECOLOGY 03/21/23 Elisa Romero NP [address] [place] [address] [place] [address] Cardiology 01/31/24 Marcus Murcia DO [address] [place] [address] [place] [address] Specialist Physiatry 03/26/24 documented as of this encounter
--- OUTSIDE RECORDS SUMMARY | 2025-05-09 15:27 | XMS_ITS | Encounter Summary ---
Author Organization [facility] Address [address] [place] [address] Care Team Providers Care Creative Writing Teacher Name Role Phone Kameron Zuñiga MD Unavailable Kathy Christopher MD Primary Care Prov ider Maycol Infante MD Unavailable Unavailable Sebastian Martinez MD Unavailable UnavailEve Blackmon MD Unavailable Elisa Romero NP Unavailable [phone] Marcus Murcia DO Unavailable Unavailable Encounter Details Date Type Department Care Team Description 03/20/2024 Tomographic Tech Report Medical Records [address] [place] [address]694 Pierre Oliav PA-C Social History Tobacco Use Types Packs/Day [...] on filedocumented in this encounter Care Teams Creative Writing Teacher Relationship Specialty Start Date End Date Kathy Christopher MD [address] [place] [address] PCP - General Internal Medicine 01/21/22 Kameron Zuñiga MD Nurse Discharge Planner Cardiovascular Disease 08/04/21 Maycol Infante MD [address] [place] [address]86 Specialist Pulmonology 10/19/22 Sebastian Martinez MD [address] [place] [address]176 Specialist Ophthalmology 03/21/23 Eve Juan MD [address] [place] [address] [place] [address] Specialist UROGYNECOLOGY 03/21/23 Elisa Romero NP [address] [place] [address] [place] [address] Cardiology 01/31/24 Marcus Murcia DO [address] [place] [address] [place] [address] Specialist Physiatry 03/26/24 documented as of this encounter
--- OUTSIDE RECORDS SUMMARY | 2025-05-09 15:27 | XMS_ITS | Encounter Summary ---
Author Organization [facility] Address [address] [place] [address] Care Team Providers Care Pipe Stem Repairer Name Role Phone Kameron Zuñiga MD Unavailable Kayta Lopez NP Unavailable Unavailab Kathy Haley MD Primary Care Prov ider Be Pacheco NP Unavailable [phone] Maycol Infante MD Unavailable Unavailable Sebastian Martinez MD Unavailable UnavailEve Blackmon MD Unavailable Elisa Romero NP Unavailable [phone] Marcus Murcia DO Unavailable Unavailable Encounter Details Date Type Department Care Team Description 08/11/2022 Log Chain Worker Report Medical Records [address] [place] [address]150 Maycol Infante MD Social History Tobacco Use [...] filedocumented in this encounter Care Teams Pipe Stem Repairer Relationship Specialty Start Date End Date Kathy Christopher MD [address] [place] [address] 86327 PCP - General Internal Medicine 01/21/22 Kameron Zuñiga MD Construction Administrator Cardiovascular Disease 08/04/21 Katya Lopez NP Cardiology 08/04/21 01/30/24 Be Pacheco NP [address] [place] [address] 58634 Nurse Practitioner Cardiology 10/17/22 01/30/24 Maycol Infante MD [address] [place] [address] 20741 Specialist Pulmonology 10/19/22 Sebastian Martinez MD [address] [place] [address] 31554 Specialist Ophthalmology 03/21/23 Eve Juan MD [address] [place] [address] [place] [address] Specialist UROGYNECOLOGY 03/21/23 Elisa Romero NP [address] [place] [address] [place] [address] Cardiology 01/31/24 Marcus Murcia DO [address] [place] [address] [place] [address] Specialist Physiatry 03/26/24 documented as of this encounter
--- OUTSIDE RECORDS SUMMARY | 2025-05-09 15:27 | XMS_ITS | Patient Health Record ---
Author Organization [facility] Address [address] [place] [address] Care Team Providers Care Chemistry Physics Teacher Name Role Phone Narciso MITTAL, Yomi Primary Care Provider Deion Melendrez Unavailable [phone] Reason For Referral No Information Medications Medication SIG (Take, Route, Frequency, Duration) Notes Start Date End Date Status NexIUM 40 MG Capsule Delayed Release 1 capsule Orally BID-take 30-60 minutes before breakfast and supper; Duration: 30 day(s) 06/01/2011 Active MiraLax Miralax Powder as directed-1 cap ful in 8 ounces water Orally once to three times a day as needed for constipation; Duration: 30 days 04/07/2011 Active Plan Of Treatment No Information Insurance Providers Payer Name Payer Address Payer Phone Subscriber Number Group Number Insured Name Patient Relationship to Insured Coverage Start Date Coverage End Date MEDICARE OF [place] [address] [place] [address] CARLOS ADHIKARI Self - patient is the insured MEDICAID OF [facility] [address] [id number] CARLOS ADHIKARI Self - patient is the insured
--- OUTSIDE RECORDS SUMMARY | 2025-05-09 15:27 | XMS_ITS | Encounter Summary ---
Author Organization [facility] Address [address] [place] [address] Care Team Providers Care Automatic Outsole Cutter Name Role Phone Kameron Zuñiga MD Unavailable Katya Lopez NP Unavailable Unavailab le Kathy Christopher MD Primary Care Prov ider Be Pacheco NP Unavailable [phone] Maycol Infante MD Unavailable Unavailable Sebastian Martinez MD Unavailable UnavailEve Blackmon MD Unavailable Elisa Romero NP Unavailable [phone] Marcus Murcia DO Unavailable Unavailable Encounter Details Date Type Department Care Team Description 01/22/2024 Blower Blast Furnace Report Medical Records [address] [place] [address] Pierre Oliva, PAAdelaidaC Social History Tobacco Use [...] on filedocumented in this encounter Care Teams Automatic Outsole Cutter Relationship Specialty Start Date End Date Kathy Christopher MD [address] [place] [address] [phone] PCP - General Internal Medicine 01/21/22 Kameron Zuñiga MD Micro Lab Analyst Cardiovascular Disease 08/04/21 Katya Lopez NP Cardiology 08/04/21 01/30/24 Be Pacheco NP [address] [place] [address] 13040 Nurse Practitioner Cardiology 10/17/22 01/30/24 Maycol Infante MD [address] [place] [address] 49998 Specialist Pulmonology 10/19/22 Sebastian Martinez MD [address] [place] [address] Specialist Ophthalmology 03/21/23 Eve Juan MD [address] [place] [address] [place] [address] Specialist UROGYNECOLOGY 03/21/23 Elisa Romero NP [address] [place] [address] [place] [address] Cardiology 01/31/24 Marcus Murcia DO [address] [place] [address] [place] [address] Specialist Physiatry 03/26/24 documented as of this encounter
--- OUTSIDE RECORDS SUMMARY | 2025-05-09 15:27 | XMS_ITS | Encounter Summary ---
Author Organization [facility] Address [address] [place] [address] Care Team Providers Care Six Sigma Black Trainer Name Role Phone Wiley Thompson MD Primary Care Provider Kameron Cornejo MD Unavailable Katya Lopez NP Unavailable Unavailab Kathy Christopher MD Primary Care Prov ider Be Pacheco NP Unavailable [phone] Maycol Infante MD Unavailable Unavailable Sebastian Martinez MD Unavailable UnavailEve Blackmon MD Unavailable Elisa Romero NP Unavailable [phone] Marcus Murcia DO Unavailable Unavailable Encounter Details Date Type Department Care Team Description 12/29/2016 Release of Information Medical Records [address] [place] [address] Abstract, Provider Social History Tobacco Use Types [...] on filedocumented in this encounter Care Teams Six Sigma Black Trainer Relationship Specialty Start Date End Date Wiley Thompson MD PCP - General Internal Medicine 06/04/14 01/20/22 Kathy Christopher MD [address] [place] [address]21 PCP - General Internal Medicine 01/21/22 Kameron Zuñiga MD Nuclear Equipment Sales Engineer Cardiovascular Disease 08/04/21 Katya Lopez, IRMA Cardiology 08/04/21 01/30/24 Be Pacheco NP [address] [place] [address]09 Nurse Practitioner Cardiology 10/17/22 01/30/24 Maycol Infante MD [address] [place] [address]250 Specialist Pulmonology 10/19/22 Sebastian Martinez MD [address] [place] [address]20 Specialist Ophthalmology 03/21/23 Eve Juan MD [address] [place] [address] [place] [address] Specialist UROGYNECOLOGY 03/21/23 Elisa Romero NP [address] [place] [address] [place] [address] Cardiology 01/31/24 Marcus Murcia DO [address] [place] [address] [place] [address] Specialist Physiatry 03/26/24 documented as of this encounter
--- OUTSIDE RECORDS SUMMARY | 2025-05-09 15:27 | XMS_ITS | Encounter Summary ---
Author Organization [facility] Address [address] [place] [address] Care Team Providers Care Sex Crimes Detective Name Role Phone Bri Santacruz MD Primary Care Provider Unavailable Wiley Thompson MD Primary Care Provider Kameron Cornejo MD Unavailable Katya Lopez NP Unavailable Unavailab Kathy Haley MD Primary Care Prov ider Be Pacheco NP Unavailable [phone] Maycol Infante MD Unavailable Unavailable Sebastian Martinez MD Unavailable UnavailEve Blackmon MD Unavailable Elisa Romero NP Unavailable [phone] Marcus Murcia DO Unavailable Unavailable Encounter Details Date Type Department Care Team Description 10/16/2013 Grants Administrator Report Medical Records [address] [place] [address] 60899 Pallavi Henry MD Social History Tobacco Use [...] on filedocumented in this encounter Care Teams Sex Crimes Detective Relationship Specialty Start Date End Date Bri Santacruz MD PCP - General Internal Medicine 04/23/12 06/03/14 Wiley Thompson MD PCP - General Internal Medicine 06/04/14 01/20/22 Kathy Christopher MD [address] [place] [address] 55262 PCP - General Internal Medicine 01/21/22 Kameron Zuñiga MD Crop Farmers Cardiovascular Disease 08/04/21 Katya Lopez, IRMA Cardiology 08/04/21 01/30/24 Be Pacheco NP [address] [place] [address] 87971 Nurse Practitioner Cardiology 10/17/22 01/30/24 Maycol Infante MD [address] [place] [address] 78948 Specialist Pulmonology 10/19/22 Sebastian Martinez MD [address] [place] [address] 50160 Specialist Ophthalmology 03/21/23 Eve Juan MD [address] [place] [address] [place] [address] Specialist UROGYNECOLOGY 03/21/23 Elisa Romero NP [address] [place] [address] [place] [address] Cardiology 01/31/24 Marcus Murcia DO [address] [place] [address] [place] [address] Specialist Physiatry 03/26/24 documented as of this encounter
--- OUTSIDE RECORDS SUMMARY | 2025-05-09 15:27 | XMS_ITS | Encounter Summary ---
Author Organization [facility] Address [address] [place] [address] Care Team Providers Care Digital Strategy Director Name Role Phone Kameron Zuñiga MD Unavailable Katya Lopez NP Unavailable Unavailab Kathy Haley MD Primary Care Prov ider Be Pacheco NP Unavailable [phone] Maycol Infante MD Unavailable Unavailable Sebastian Martinez MD Unavailable UnavailEve Blackmon MD Unavailable Elisa Romero NP Unavailable [phone] Marcus Murcia DO Unavailable Unavailable Encounter Details Date Type Department Care Team Description 09/26/2022 SCAN Medical Records [address] [place] [address] 23464 Abstract, Provider Social History Tobacco Use Types [...] on filedocumented in this encounter Care Teams Digital Strategy Director Relationship Specialty Start Date End Date Kathy Christopher MD [address] [place] [address] 27116 PCP - General Internal Medicine 01/21/22 Kameron Zuñiga MD Evaluation Advisor Cardiovascular Disease 08/04/21 Katya Lopez NP Cardiology 08/04/21 01/30/24 Be Pacheco NP [address] [place] [address] Nurse Practitioner Cardiology 10/17/22 01/30/24 Maycol Infante MD [address] [place] [address] 35350 Specialist Pulmonology 10/19/22 Sebastian Martinez MD [address] [place] [address] 89230 Specialist Ophthalmology 03/21/23 Eve Juan MD [address] [place] [address] [place] [address] Specialist UROGYNECOLOGY 03/21/23 Elisa Romero NP [address] [place] [address] [place] [address] Cardiology 01/31/24 Marcus Murcia DO [address] [place] [address] [place] [address] Specialist Physiatry 03/26/24 documented as of this encounter
--- OUTSIDE RECORDS SUMMARY | 2025-05-09 15:27 | XMS_ITS | Encounter Summary ---
Author Organization [facility] Address [address] [place] [address] Care Team Providers Care Networking Engineer Name Role Phone Wiley Thompson MD Primary Care Provider Kameron Cornejo MD Unavailable Katya Lopez NP Unavailable Unavailab Kathy Haley MD Primary Care Prov ider Be Pacheco NP Unavailable [phone] Maycol Infante MD Unavailable Unavailable Sebastian Martinez MD Unavailable UnavailEve Blackmon MD Unavailable Elisa Romero NP Unavailable Marcus Murcia DO Unavailable Unavailable Encounter Details Date Type Department Care Team Description 05/30/2018 Orders Only Medical Records [address] [place] [address] Talia Coleman PA-C [address] [place], [place] [phone] Social History Tobacco Use Types Packs/Day Years [...] on filedocumented in this encounter Care Teams Networking Engineer Relationship Specialty Start Date End Date Wiley Thompson MD PCP - General Internal Medicine 06/04/14 01/20/22 Kathy Christopher MD [address] [place], [place] [phone] PCP - General Internal Medicine 01/21/22 Kameron Zuñiga MD Cutting Machine Offbearer Cardiovascular Disease 08/04/21 Katya Lopez NP Cardiology 08/04/21 01/30/24 Be Pacheco NP [address] [place] [address] 09682 Nurse Practitioner Cardiology 10/17/22 01/30/24 Maycol Infante MD [address] [place] [address] 53604 Specialist Pulmonology 10/19/22 Sebastian Martinez MD [address] [place] [address] Specialist Ophthalmology 03/21/23 Eve Juan MD [address] [place] [address] [place] [address] Specialist UROGYNECOLOGY 03/21/23 Elisa Romero NP [address] [place] [address] [place] [address] Cardiology 01/31/24 Marcus Murcia DO [address] [place] [address] [place] [address] Specialist Physiatry 03/26/24 documented as of this encounter
--- OUTSIDE RECORDS SUMMARY | 2025-05-09 15:27 | XMS_ITS | Encounter Summary ---
Author Organization [facility] Address [address] [place] [address] Care Team Providers Care Sole Leveler Machine Name Role Phone Kameron Zuñiga MD Unavailable Kathy Christopher MD Primary Care Prov ider Maycol Infante MD Unavailable Unavailable Sebastian Martinez MD Unavailable UnavailEve Blackmon MD Unavailable Elisa Romero NP Unavailable [phone] Marcus Murcia DO Unavailable Unavailable Encounter Details Date Type Department Care Team Description 03/12/2024 Coal Tower Operator Report Medical Records [address] [place] [address] 34436 Maycol Infante MD Social History Tobacco Use [...] on filedocumented in this encounter Care Teams Sole Leveler Machine Relationship Specialty Start Date End Date Kathy Christopher MD [address] [place] [address] 01020 PCP - General Internal Medicine 01/21/22 Kameron Zuñiga MD Bath Attendant Cardiovascular Disease 08/04/21 Maycol Infante MD [address] [place] [address] 58232 Specialist Pulmonology 10/19/22 Sebastian Martinez MD [address] [place], [place] [phone] Specialist Ophthalmology 03/21/23 Eve Juan MD [address] [place] [address] [place] [address] Specialist UROGYNECOLOGY 03/21/23 Elisa Romero NP [address] [place] [address] [place] [address] Cardiology 01/31/24 Marcus Murcia DO [address] [place] [address] [place] [address] Specialist Physiatry 03/26/24 documented as of this encounter
--- OUTSIDE RECORDS SUMMARY | 2025-05-09 15:27 | XMS_ITS | Encounter Summary ---
Author Organization [facility] Address [address] [place] [address] Care Team Providers Care Helium Arc Welder Name Role Phone Kameron Zuñiga MD Unavailable Katya Lopez NP Unavailable Unavailab Kathy Haley MD Primary Care Prov ider Be Pacheco NP Unavailable [phone] Maycol Infante MD Unavailable Unavailable Sebastian Martinez MD Unavailable UnavailEve Blackmon MD Unavailable Elisa Romero NP Unavailable [phone] Marcus Murcia DO Unavailable Unavailable Reason for Visit * Reason Onset Date Comments medication problems 03/18/2022 Encounter Details Date Type Department Care Team Description 03/18/2022 Telephone Adult Medicine [address] [phone] Kathy Christopher MD [address] [place] [address] [phone] medication problems Social History Tobacco Use Types [...] 1:31 PM EDT Lauren is calling from [employer]. She is the pharmacy benefits analyst. She is faxing over a form. If you have any questions her best call back number is [phone] option 1 REF#[id number]. * Telephone Encounter - Talia Fried M.A. [...] on filedocumented in this encounter Care Teams Helium Arc Welder Relationship Specialty Start Date End Date Kathy Christopher MD [address] [place] [address] 8[address]32 PCP - General Internal Medicine 01/21/22 Kameron Zuñiga MD Microwave Supervisor Cardiovascular Disease 08/04/21 Katya Lopez NP Cardiology 08/04/21 01/30/24 Be Pacheco NP [address] [place] [address] 06119 Nurse Practitioner Cardiology 10/17/22 01/30/24 Maycol Infante MD [address] [place] [address] 84874 Specialist Pulmonology 10/19/22 Sebastian Martinez MD [address] [place] [address] 46660 Specialist Ophthalmology 03/21/23 Eve Juan MD [address] [place] [address] [place] [address] Specialist UROGYNECOLOGY 03/21/23 Elisa Romero NP [address] [place] [address] [place] [address] Cardiology 01/31/24 Marcus Murcia DO [address] [place] [address] [place] [address] Specialist Physiatry 03/26/24 documented as of this encounter
--- OUTSIDE RECORDS SUMMARY | 2025-05-09 15:27 | XMS_ITS | Encounter Summary ---
Author Organization [facility] Address [address] [place] [address] Care Team Providers Care Bit Shaver Name Role Phone Wiley Thompson MD Primary Care Provider Kameron Cornejo MD Unavailable Katya Lopez NP Unavailable Unavailab Kathy Haley MD Primary Care Prov ider Be Pacheco NP Unavailable [phone] Maycol Infante MD Unavailable Unavailable Sebastian Martinez MD Unavailable UnavailEve Blackmon MD Unavailable Elisa Romero NP Unavailable [phone] Marcus Murcia DO Unavailable Unavailable Encounter Details Date Type Department Care Team Description 10/02/2015 Orders Only Adult Medicine - [place] [address] [place] [address] Adam Camp PA Neck pain (Primary Dx) [...] Cervicalgia documented in this encounter Care Teams Bit Shaver Relationship Specialty Start Date End Date Wiley Thompson MD PCP - General Internal Medicine 06/04/14 01/20/22 Kathy Christopher MD [address] [place] [address] 58949 PCP - General Internal Medicine 01/21/22 Kameron Zuñiga MD Tennis Centre Manager Cardiovascular Disease 08/04/21 Katya Lopez NP Cardiology 08/04/21 01/30/24 Be Pacheco NP [address] [place] [address] 64946 Nurse Practitioner Cardiology 10/17/22 01/30/24 Maycol Infante MD [address] [place] [address] 14169 Specialist Pulmonology 10/19/22 Sebastian Martinez MD [address] [place] [address] 04794 Specialist Ophthalmology 03/21/23 Eve Juan MD [address] [place] [address] [place] [address] Specialist UROGYNECOLOGY 03/21/23 Elisa Romero NP [address] [place] [address] [place] [address] Cardiology 01/31/24 Marcus Murcia DO [address] [place] [address] [place] [address] Specialist Physiatry 03/26/24 documented as of this encounter
--- OUTSIDE RECORDS SUMMARY | 2025-05-09 15:27 | XMS_ITS | Encounter Summary ---
Author Organization [facility] Address [address] [place] [address] Care Team Providers Care Industrial Real Estate Agent Name Role Phone Kameron Zuñiga MD Unavailable Katya Lopez NP Unavailable Unavailab le Kathy Christopher MD Primary Care Prov ider Be Pacheco NP Unavailable [phone] Maycol Infante MD Unavailable Unavailable Sebastian Martinez MD Unavailable UnavailEve Blackmon MD Unavailable Elisa Romero NP Unavailable [phone] Marcus Murcia DO Unavailable Unavailable Encounter Details Date Type Department Care Team Description 09/26/2022 Hospital Medical Records [address] [place] [address] Social History Tobacco Use Types Packs/Day Years [...] filedocumented in this encounter Care Teams Industrial Real Estate Agent Relationship Specialty Start Date End Date Kathy Christopher MD [address] [place] [address] 55066 PCP - General Internal Medicine 01/21/22 Kameron Zuñiga MD Forest Fire Fighter Cardiovascular Disease 08/04/21 Katya Lopez NP Cardiology 08/04/21 01/30/24 Be Pacheco NP [address] [place] [address] 18700 Nurse Practitioner Cardiology 10/17/22 01/30/24 Maycol Infante MD [address] [place] [address] 24679 Specialist Pulmonology 10/19/22 Sebastian Martinez MD [address] [place] [address] 53528 Specialist Ophthalmology 03/21/23 Eve Juan MD [address] [place] [address] [place] [address] Specialist UROGYNECOLOGY 03/21/23 Elisa Romero NP [address] [place] [address] [place] [address] Cardiology 01/31/24 Marcus Murcia DO [address] [place] [address] [place] [address] Specialist Physiatry 03/26/24 documented as of this encounter
--- OUTSIDE RECORDS SUMMARY | 2025-05-09 15:27 | XMS_ITS | Encounter Summary ---
Author Organization [facility] Address [address] [place] [address] Care Team Providers Care Waste Management Specialist Name Role Phone Wiley Thompson MD Primary Care Provider Kameron Cornejo MD Unavailable Katya Lopez SMALL WIND ENERGY INSTALLER Unavailable Unavailab Kathy Haley MD Primary Care Prov ider Be Pacheco SMALL WIND ENERGY INSTALLER Unavailable [phone] Maycol Infante MD Unavailable Unavailable Sebastian Martinez MD Unavailable UnavailEve Blackmon MD Unavailable Elisa Romero NP Unavailable [phone] Marcus Murcia DO Unavailable Unavailable Encounter Details Date Type Department Care Team Description 04/19/2018 Electronic Warfare Technician Report Medical Records [address] [place] [address] Asya Waller, IRMA Social History Tobacco Use [...] on filedocumented in this encounter Care Teams Waste Management Specialist Relationship Specialty Start Date End Date Wiley Thompson MD PCP - General Internal Medicine 06/04/14 01/20/22 Kathy Christopher MD [address] [place] [address] 94742 PCP - General Internal Medicine 01/21/22 Kameron Zuñiga MD Dry Transfer Worker Cardiovascular Disease 08/04/21 Katya Lopez, IRMA Cardiology 08/04/21 01/30/24 Be Pacheco NP [address] [place] [address] Nurse Practitioner Cardiology 10/17/22 01/30/24 Maycol Infante MD [address] [place] [address] 91084 Specialist Pulmonology 10/19/22 Sebastian Martinez MD [address] [place] [address] 63869 Specialist Ophthalmology 03/21/23 Eve Juan MD [address] [place] [address] [place] [address] Specialist UROGYNECOLOGY 03/21/23 Elisa Romero NP [address] [place] [address] [place] [address] Cardiology 01/31/24 Marcus Murcia DO [address] [place] [address] [place] [address] Specialist Physiatry 03/26/24 documented as of this encounter
--- OUTSIDE RECORDS SUMMARY | 2025-05-09 15:27 | XMS_ITS | Encounter Summary ---
Author Organization [facility] Address [address] [place] [address] Care Team Providers Care Animal Nutrition Teacher Name Role Phone Wiley Thompson MD Primary Care Provider Kameron Cornejo MD Unavailable Katya Lopez NP Unavailable Unavailab Kathy Haley MD Primary Care Prov ider Be Pacheco NP Unavailable [phone] Maycol Infante MD Unavailable Unavailable Sebastian Martinez MD Unavailable UnavailEve Blackmon MD Unavailable Elisa Romero NP Unavailable [phone] Marcus Murcia DO Unavailable Unavailable Reason for Visit * Reason Onset Date Comments TEST RESULTS 10/12/2020 Encounter Details Date Type Department Care Team Description 10/12/2020 Telephone Adult Medicine [address] [address] Wiley Thompson MD TEST RESULTS Social History [...] comment to patient * Telephone Encounter - Ricadra Huynh - 10/12/2020 4:49 PM EDT Inform patient: ANY URGENT OR ABNORMAL RESULTS WIILL RESULT IN A CALL BACK TO THE PATIENT CANDICE. Type of test: : x-ray Date test was performed: 10/08/20 Where was the test performed: [address] [place] [address] Who ordered this test?: Kitty LOPEZ Is [...] on filedocumented in this encounter Care Teams Animal Nutrition Teacher Relationship Specialty Start Date End Date Wiley Thompson MD PCP - General Internal Medicine 06/04/14 01/20/22 Kathy Christopher MD [address] [place] [address]190 PCP - General Internal Medicine 01/21/22 Kameron Zuñiga MD Mva Operator Cardiovascular Disease 08/04/21 Katya Lopez NP Cardiology 08/04/21 01/30/24 Be Pacheco NP [address] [place] [address] 48072 Nurse Practitioner Cardiology 10/17/22 01/30/24 Maycol Infante MD [address] [place] [address] 09823 Specialist Pulmonology 10/19/22 Sebastian Martinez MD [address] [place] [address] 63238 Specialist Ophthalmology 03/21/23 Eve Juan MD [address] [place] [address] [place] [address] Specialist UROGYNECOLOGY 03/21/23 Elisa Romero NP [address] [place] [address] [place] [address] Cardiology 01/31/24 Marcus Murcia DO [address] [place] [address] [place] [address] Specialist Physiatry 03/26/24 documented as of this encounter
--- OUTSIDE RECORDS SUMMARY | 2025-05-09 15:27 | XMS_ITS | Encounter Summary ---
Author Organization [facility] Address [address] [place] [address] Care Team Providers Care Classics Professor Name Role Phone Wiley Thompson MD Primary Care Provider Kameron Cornejo MD Unavailable Katya Lopez NP Unavailable Unavailab Kathy Christopher MD Primary Care Prov ider Be Pacheco NP Unavailable [phone] Maycol Infante MD Unavailable Unavailable Sebastian Martinez MD Unavailable UnavailEve Blackmon MD Unavailable Elisa Romero NP Unavailable [phone] Marcus Murcia DO Unavailable Unavailable Encounter Details Date Type Department Care Team Description 07/30/2014 Controlled Substance Plan Medical Records [address] [place] [address] Abstract, Provider Social History Tobacco Use Types [...] on filedocumented in this encounter Care Teams Classics Professor Relationship Specialty Start Date End Date Wiley Thompson MD PCP - General Internal Medicine 06/04/14 01/20/22 Kathy Christopher MD [address] [place] [address] 92800 PCP - General Internal Medicine 01/21/22 Kameron Zuñiga MD Media Arts Professor Cardiovascular Disease 08/04/21 Katya Lopez NP Cardiology 08/04/21 01/30/24 Be Pacheco NP [address] [place] [address] 78080 Nurse Practitioner Cardiology 10/17/22 01/30/24 Maycol Infante MD [address] [place] [address] 89558 Specialist Pulmonology 10/19/22 Sebastian Martinez MD [address] [place], [place] [phone] Specialist Ophthalmology 03/21/23 Eve Juan MD [address] [place] [address] [place] [address] Specialist UROGYNECOLOGY 03/21/23 Elisa Romero NP [address] [place] [address] [place] [address] Cardiology 01/31/24 Marcus Murcia DO [address] [place] [address] [place] [address] Specialist Physiatry 03/26/24 documented as of this encounter
--- OUTSIDE RECORDS SUMMARY | 2025-05-09 15:27 | XMS_ITS | Encounter Summary ---
Author Organization [facility] Address [address] [place] [address] Care Team Providers Care Sorter Pricer Name Role Phone Wiley Thompson MD Primary Care Provider Kameron Cornejo MD Unavailable Katya Lopez NP Unavailable Unavailab Kathy Haley MD Primary Care Prov ider Be Pacheco NP Unavailable [phone] Maycol Infante MD Unavailable Unavailable Sebastian Martinez MD Unavailable UnavailEve Blackmon MD Unavailable Elisa Romero NP Unavailable [phone] Marcus Murcia DO Unavailable Unavailable Encounter Details Date Type Department Care Team Description 06/04/2014 SCAN Medical Records [address] [place] [address] Abstract, Provider Social History Tobacco Use Types [...] on filedocumented in this encounter Care Teams Sorter Pricer Relationship Specialty Start Date End Date Wiley Thompson MD PCP - General Internal Medicine 06/04/14 01/20/22 Kathy Christopher MD [address] [place] [address] 43530 PCP - General Internal Medicine 01/21/22 Kameron Zuñiga MD Freight Team Associate Cardiovascular Disease 08/04/21 Katya Lopez NP Cardiology 08/04/21 01/30/24 Be Pacheco NP [address] [place] [address] 47484 Nurse Practitioner Cardiology 10/17/22 01/30/24 Maycol Infante MD [address] [place] [address] 71286 Specialist Pulmonology 10/19/22 Sebastian Martinez MD [address] [place], [place] [address] Specialist Ophthalmology 03/21/23 Eve Juan MD [address] [place] [address] [place] [address] Specialist UROGYNECOLOGY 03/21/23 Elisa Romero NP [address] [place] [address] [place] [address] Cardiology 01/31/24 Marcus Murcia DO [address] [place] [address] [place] [address] Specialist Physiatry 03/26/24 documented as of this encounter
--- OUTSIDE RECORDS SUMMARY | 2025-05-09 15:27 | XMS_ITS | Encounter Summary ---
Author Organization [facility] Address [address] [place] [address] Care Team Providers Care Analytical Technician Name Role Phone Wiley Thompson MD Primary Care Provider Kameron Cornejo MD Unavailable Katya Lopez NP Unavailable Unavailab Kathy Haley MD Primary Care Prov ider Be Pacheco NP Unavailable [phone] Maycol Infante MD Unavailable Unavailable Sebastian Martinez MD Unavailable UnavailEve Blackmon MD Unavailable Elisa Romero NP Unavailable [phone] Marcus Murcia DO Unavailable Unavailable Reason for Visit * Reason Comments E-prescribe Rx Request Encounter Details Date Type Department Care Team Description 11/04/2020 Refill Adult Medicine [address] [phone] Pau Shultz PA [address] [place] [address] [phone] E-prescribe Rx Request Social History Tobacco Use [...] N/A Patients current insurance carrier is: Payor: [facility] M[facility] / Plan: [facility] $0 [facility] [id number] / Product Type: HMO [id number] documented in this encounter Plan of Treatment Not on file documented as of this encounter Visit Diagnoses Not on filedocumented in this encounter Care Teams Analytical Technician Relationship Specialty Start Date End Date Wiley Thompson MD PCP - General Internal Medicine 06/04/14 01/20/22 Trina Rizo, Kathy Fried MD [address] [place] [address] 98346 PCP - General Internal Medicine 01/21/22 Kameron Zuñiga MD Swaging Machine Operator Cardiovascular Disease 08/04/21 Katya Lopez NP Cardiology 08/04/21 01/30/24 Be Pacheco NP [address] [place] [address] 77709 Nurse Practitioner Cardiology 10/17/22 01/30/24 Maycol Infante MD [address] [place] [address] 48906 Specialist Pulmonology 10/19/22 Sebastian Martinez MD [address] [place] [address] Specialist Ophthalmology 03/21/23 Eve Juan MD [address] [place] [address] [place] [address] Specialist UROGYNECOLOGY 03/21/23 Elisa Romero NP [address] [place] [address] [place] [address] Cardiology 01/31/24 Marcus Murcia DO [address] [place] [address] [place] [address] Specialist Physiatry 03/26/24 documented as of this encounter
--- OUTSIDE RECORDS SUMMARY | 2025-05-09 15:28 | XMS_ITS | Encounter Summary ---
Author Organization [facility] Address [address] [place] [address] Care Team Providers Care Speech Language Assistant Name Role Phone Wiley Thompson MD Primary Care Provider Kameron Cornejo MD Unavailable Katya Lopez NP Unavailable Unavailab Kathy Haley MD Primary Care Prov ider Be Pacheco NP Unavailable Maycol Infante MD Unavailable Unavailable Sebastian Martinez MD Unavailable UnavailEve Blackmon MD Unavailable Elisa Romero NP Unavailable [phone] Marcus Murcia DO Unavailable Unavailable Encounter Details Date Type Department Care Team Description 07/24/2021 Hospital Medical Records [address] [place] [address] Abstract, Provider Social History Tobacco Use Types [...] on filedocumented in this encounter Care Teams Speech Language Assistant Relationship Specialty Start Date End Date Wiley Thompson MD PCP - General Internal Medicine 06/04/14 01/20/22 Kathy Christopher MD [address] [place] [address] PCP - General Internal Medicine 01/21/22 Kameron Zuñiga MD Laminating Machine Operator Cardiovascular Disease 08/04/21 Katya Lopez NP Cardiology 08/04/21 01/30/24 Be Pacheco NP [address] [place] [address] 19663 Nurse Practitioner Cardiology 10/17/22 01/30/24 Maycol Infante MD [address] [place] [address] 23210 Specialist Pulmonology 10/19/22 Sebastian Martinez MD [address] [place] [address] Specialist Ophthalmology 03/21/23 Eve Juan MD [address] [place] [address] [place] [address] Specialist UROGYNECOLOGY 03/21/23 Elisa Romero NP [address] [place] [address] [place] [address] Cardiology 01/31/24 Marcus Murcia DO [address] [place] [address] [place] [address] Specialist Physiatry 03/26/24 documented as of this encounter
--- OUTSIDE RECORDS SUMMARY | 2025-05-09 15:28 | XMS_ITS | Encounter Summary ---
Author Organization [facility] Address [address] [place] [address] Care Team Providers Care Computer Operations Supervisor Name Role Phone Wiley Thompson MD Primary Care Provider Kameron Cornejo MD Unavailable Katya Lopez NP Unavailable Unavailab Kathy Haley MD Primary Care Prov ider Be Pacheco NP Unavailable [phone] Maycol Infante MD Unavailable Unavailable Sebastian Martinez MD Unavailable UnavailEve Blackmon MD Unavailable Elisa Romero NP Unavailable [phone] Marcus Murcia DO Unavailable Unavailable Encounter Details Date Type Department Care Team Description 07/24/2021 Entry Level Marketing Assistant Report Medical Records [address] [place] [address] Abstract, Provider Social History Tobacco Use Types [...] filedocumented in this encounter Care Teams Computer Operations Supervisor Relationship Specialty Start Date End Date Wiley Thompson MD PCP - General Internal Medicine 06/04/14 01/20/22 Kathy Christopher MD [address] [place] [address] PCP - General Internal Medicine 01/21/22 Kameron Zuñiga MD Commercial Leasing Manager Cardiovascular Disease 08/04/21 Katya Lopez NP Cardiology 08/04/21 01/30/24 Be Pacheco NP [address] [place] [address]2633 Nurse Practitioner Cardiology 10/17/22 01/30/24 Maycol Infante MD [address] [place] [address]21 Specialist Pulmonology 10/19/22 Sebastian Martinez MD [address] [place] [address] 67[address] Specialist Ophthalmology 03/21/23 Eve Juan MD [address] [place] [address] [place] [address] Specialist UROGYNECOLOGY 03/21/23 Elisa Romero NP [address] [place] [address] [place] [address] Cardiology 01/31/24 Marcus Murcia DO [address] [place] [address] [place] [address] Specialist Physiatry 03/26/24 documented as of this encounter
--- OUTSIDE RECORDS SUMMARY | 2025-05-09 15:28 | XMS_ITS | Encounter Summary ---
Author Organization [facility] Address [address] [place] [address] Care Team Providers Care Packer Name Role Phone Wiley Thompson MD Primary Care Provider Kameron Cornejo MD Unavailable Katya Lopez NP Unavailable Unavailab Kathy Haley MD Primary Care Prov ider Be Pacheco NP Unavailable [phone] Maycol Infante MD Unavailable Unavailable Sebastian Martinez MD Unavailable UnavailEve Blackmon MD Unavailable Elisa Romero NP Unavailable [phone] Marcus Murcia DO Unavailable Unavailable Encounter Details Date Type Department Care Team Description 11/21/2018 Orders Only Medical Records [address] [place] [address] Maycol Infante MD Social History Tobacco Use [...] on filedocumented in this encounter Care Teams Packer Relationship Specialty Start Date End Date Wiley Thompson MD PCP - General Internal Medicine 06/04/14 01/20/22 Kathy Christopher MD [address] [place] [address] PCP - General Internal Medicine 01/21/22 Kameron Zuñiga MD Diploma Pharmacy Technician Cardiovascular Disease 08/04/21 Katya Lopez NP Cardiology 08/04/21 01/30/24 Be Pacheco NP [address] [place] [address] 39[address] Nurse Practitioner Cardiology 10/17/22 01/30/24 Maycol Infante MD [address] [place] [address]90 Specialist Pulmonology 10/19/22 Sebastian Martinez MD [address] [place] [address] Specialist Ophthalmology 03/21/23 Eve Juan MD [address] [place] [address] [place] [address] Specialist UROGYNECOLOGY 03/21/23 Elisa Romero NP [address] [place] [address] [place] [address] Cardiology 01/31/24 Marcus Murcia DO [address] [place] [address] [place] [address] Specialist Physiatry 03/26/24 documented as of this encounter
--- OUTSIDE RECORDS SUMMARY | 2025-05-09 15:28 | XMS_ITS | Encounter Summary ---
Author Organization [facility] Address [address] [place] [address] Care Team Providers Care Buyer Renter Name Role Phone Lance Lorenzo Primary Care Provider Unavailab Bri Cooper MD Primary Care Provider Unavailable Wiley Thompson MD Primary Care Provider Kameron Cornejo MD Unavailable Katya Lopez NP Unavailable Unavailab Kathy Haley MD Primary Care Prov ider Be Pacheco TWO WAY RADIO TECHNICIAN Unavailable Maycol Infante MD Unavailable Unavailable Sebastian Martinez MD Unavailable UnavailEve Blackmon MD Unavailable Elisa Romero NP Unavailable [phone] Marcus Murcia DO Unavailable Unavailable Encounter Details Date Type Department Care Team Description 01/02/2012 Shaker Washer Report Medical Records [address] [place] [address] Inderjit Bonilla Social History Tobacco Use Types Packs/Day Years Used Date Smoking Tobacco: Never Assessed Sex Assigned at Date Recorded Not on file Job Start Date Occupation Industry Not on file Not on file Not on file documented as of this encounter Plan of Treatment Not on file documented as of this encounter Visit Diagnoses Not on filedocumented in this encounter Care Teams Buyer Renter Relationship Specialty Start Date End Date Lance Lorenzo PCP - General Internal Medicine 06/19/11 04/22/12 Bri Santacruz MD PCP - General Internal Medicine 04/23/12 06/03/14 Wiley Thompson MD PCP - General Internal Medicine 06/04/14 01/20/22 Kathy Christopher MD [address] [place] [address] PCP - General Internal Medicine 01/21/[address] Kameron Zuñiga MD Rd Manager Cardiovascular Disease 08/04/21 Katya Lopez NP Cardiology 08/04/21 01/30/24 Be Pacheco NP [address] [place] [address] 15593 Nurse Practitioner Cardiology 10/17/22 01/30/24 Maycol Infante MD [address] [place] [address]368 Specialist Pulmonology 10/19/22 Sebastian Martinez MD [address] [place] [address] Specialist Ophthalmology 03/21/23 Eve Juan MD [address] [place] [address] [place] [address] Specialist UROGYNECOLOGY 03/21/23 Elisa Romero NP [address] [place] [address] [place] [address] Cardiology 01/31/24 Marcus Murcia DO [address] [place] [address] [place] [address] Specialist Physiatry 03/26/24 documented as of this encounter
--- OUTSIDE RECORDS SUMMARY | 2025-05-09 15:28 | XMS_ITS | Encounter Summary ---
Author Organization [facility] Address [address] [place] [address] Care Team Providers Care Teacher Resource Name Role Phone Kameron Zuñiga MD Unavailable Katya Lopez NP Unavailable Unavailab Kathy Haley MD Primary Care Prov ider Be Pacheco NP Unavailable [phone] Maycol Infante MD Unavailable Unavailable Sebastian Martinez MD Unavailable UnavailEve Blackmon MD Unavailable Elisa Romero NP Unavailable Marcus Murcia DO Unavailable Unavailable Reason for Visit * Reason Onset Date Comments refill request 01/20/2023 Encounter Details Date Type Department Care Team Description 01/20/2023 Refill Urogy[address]cology [address] [phone] Eve Juan MD [address] [place] [address] [place] [address] refill request Social History Tobacco Use Types [...] carrier is: Payor: [facility] MCR / Plan: O $0 [facility] [id number] / Product Type: HMO [id number] documented in this encounter Plan of Treatment Not on file documented as of this encounter Visit Diagnoses Not on filedocumented in this encounter Care Teams Teacher Resource Relationship Specialty Start Date End Date Kathy Christopher MD [address] [place] [address] PCP - General Internal Medicine 01/21/22 Kameron Zuñiga MD Manager Regional Sales Cardiovascular Disease 08/04/21 Katya Lopez NP Cardiology 08/04/21 01/30/24 Be Pacheco NP [address] [place] [address] Nurse Practitioner Cardiology 10/17/22 01/30/24 Maycol Infante MD [address] [place] [address] 24714 Specialist Pulmonology 10/19/22 Sebastian Martinez MD [address] [place], [place] [phone] Specialist Ophthalmology 03/21/23 Eve Juan MD [address] [place] [address] [place] [address] Specialist UROGYNECOLOGY 03/21/23 Elisa Romero NP [address] [place] [address] [place] [address] Cardiology 01/31/24 Marcus Murcia DO [address] [place] [address] [place] [address] Specialist Physiatry 03/26/24 documented as of this encounter
--- OUTSIDE RECORDS SUMMARY | 2025-05-09 15:28 | XMS_ITS | Clinical Summary ---
Author Organization [facility] Address [address] [place] [address] Care Team Providers Care Help Aid Name Role Phone Kathy Christopher MD Primary [...] age to complete this topic Care Teams Help Aid Relationship Specialty Start Date End Date Kathy Christopher MD [address] [place] [address] PCP - General Internal Medicine 09/14/23
--- OUTSIDE RECORDS SUMMARY | 2025-05-09 15:28 | XMS_ITS | Encounter Summary ---
Author Organization [facility] Address [address] [place] [address] Care Team Providers Care Hvac Maintenance Technician Name Role Phone Wiley Thompson MD Primary Care Provider Kameron Cornejo MD Unavailable Katya Lopez NP Unavailable Unavailab Kathy Haley MD Primary Care Prov ider Be Pacheco NP Unavailable [phone] Maycol Infante MD Unavailable Unavailable Sebastian Martinez MD Unavailable UnavailEve Blackmon MD Unavailable Elisa Romero NP Unavailable [phone] Marcus Murcia DO Unavailable Unavailable Reason for Visit * Reason Comments E-prescribe Rx Request Encounter Details Date Type Department Care Team Description 07/16/2021 Refill Adult Medicine [address] [phone] Pau Shultz PA [address] [place] [address] [phone] E-prescribe Rx Request Social History Tobacco Use [...] N/A Patients current insurance carrier is: Payor: [facility] MCR / Plan: O $0 [facility] [id number] / Product Type: HMO [id number] documented in this encounter Plan of Treatment Not on file documented as of this encounter Visit Diagnoses Not on filedocumented in this encounter Care Teams Hvac Maintenance Technician Relationship Specialty Start Date End Date Wiley Thompson MD PCP - General Internal Medicine 06/04/14 01/20/22 Kathy Christopher MD [address] [place] [address] PCP - General Internal Medicine 01/21/22 Kameron Zuñiga MD Health Safety And Environment Manager Cardiovascular Disease 08/04/21 Katya Lopez NP Cardiology 08/04/21 01/30/24 Be Pacheco NP [address] [place] [address] Nurse Practitioner Cardiology 10/17/22 01/30/24 Maycol Infante MD [address] [place] [address] Specialist Pulmonology 10/19/22 Sebastian Martinez MD [address] [place] [address]65 Specialist Ophthalmology 03/21/23 Eve Juan MD [address] [place] [address] [place] [address] Specialist UROGYNECOLOGY 03/21/23 Elisa Romero NP [address] [place] [address] [place] [address] Cardiology 01/31/24 Marcus Murcia DO [address] [place] [address] [place] [address] Specialist Physiatry 03/26/24 documented as of this encounter
--- OUTSIDE RECORDS SUMMARY | 2025-05-09 15:28 | XMS_ITS | Encounter Summary ---
Author Organization [facility] Address [address] [place] [address] Care Team Providers Care Java Programming Professor Name Role Phone Wiley Thompson MD Primary Care Provider Kameron Cornejo MD Unavailable Katya Lopez UNIT MANAGER RN Unavailable Unavailab Kathy Christopher MD Primary Care Prov ider Be Pacheco NP Unavailable [phone] Maycol Infante MD Unavailable Unavailable Sebastian Martinez MD Unavailable UnavailEve Blackmon MD Unavailable Elisa Romero NP Unavailable [phone] Marcus Murcia DO Unavailable Unavailable Encounter Details Date Type Department Care Team Description 05/21/2021 Passenger Relations Representative Report Medical Records [address] [place] [address] Maycol Infante MD Social History Tobacco Use [...] filedocumented in this encounter Care Teams Java Programming Professor Relationship Specialty Start Date End Date Wiley Thompson MD PCP - General Internal Medicine 06/04/14 01/20/22 Kathy Christopher MD [address] [place] [address] 26200 PCP - General Internal Medicine 01/21/22 Kameron Zuñiga MD Telephone Service Adviser Cardiovascular Disease 08/04/21 Katya Lopez, IRMA Cardiology 08/04/21 01/30/24 Be Pacheco NP [address] [place] [address] Nurse Practitioner Cardiology 10/17/22 01/30/24 Maycol Infante MD [address] [place] [address] 97566 Specialist Pulmonology 10/19/22 Sebastina Martinez MD [address] [place] [address] 47664 Specialist Ophthalmology 03/21/23 Eve Juan MD [address] [place] [address] [place] [address] Specialist UROGYNECOLOGY 03/21/23 Elisa Romero NP [address] [place] [address] [place] [address] Cardiology 01/31/24 Marcus Murcia DO [address] [place] [address] [place] [address] Specialist Physiatry 03/26/24 documented as of this encounter
--- OUTSIDE RECORDS SUMMARY | 2025-05-09 15:28 | XMS_ITS | Encounter Summary ---
Author Organization [facility] Address [address] [place] [address] Care Team Providers Care Talent Consultant Name Role Phone Bri Santacruz MD Primary Care Provider Unavailable Wiley Thompson MD Primary Care Provider Kameron Cornejo MD Unavailable Katya Lopez NP Unavailable Unavailab Kathy Haley MD Primary Care Prov ider Be Pacheco NP Unavailable [phone] Maycol Infante MD Unavailable Unavailable Sebastian Martinez MD Unavailable UnavailEve Blackmon MD Unavailable Elisa Romero NP Unavailable [phone] Marcus Murcia DO Unavailable Unavailable Encounter Details Date Type Department Care Team Description 02/01/2014 Hospital Medical Records [address] [place] [address] Floresita Fletcher DO Social History Tobacco Use [...] on filedocumented in this encounter Care Teams Talent Consultant Relationship Specialty Start Date End Date Bri Santacruz MD PCP - General Internal Medicine 04/23/12 06/03/14 Wiley Thompson MD PCP - General Internal Medicine 06/04/14 01/20/22 Kathy Christopher MD [address] [place] [address] PCP - General Internal Medicine 01/21/22 Kameron Zuñiga MD Music Journalist Cardiovascular Disease 08/04/21 Katya Lopez NP Cardiology 08/04/21 01/30/24 Be Pacheco NP [address] [place] [address]40 Nurse Practitioner Cardiology 10/17/22 01/30/24 Maycol Infante MD [address] [place] [address] Specialist Pulmonology 10/19/22 Sebastian Martinez MD [address] [place] [address] Specialist Ophthalmology 03/21/23 Eve Juan MD [address] [place] [address] [place] [address] Specialist UROGYNECOLOGY 03/21/23 Elisa Romero NP [address] [place] [address] [place] [address] Cardiology 01/31/24 Marcus Murcia DO [address] [place] [address] [place] [address] Specialist Physiatry 03/26/24 documented as of this encounter
--- OUTSIDE RECORDS SUMMARY | 2025-05-09 15:28 | XMS_ITS | Encounter Summary ---
Author Organization [facility] Address [address] [place] [address] Care Team Providers Care Machine Umbrella Tipper Name Role Phone Kameron Zuñiga MD Unavailable Katya Lopez NP Unavailable Unavailab Kathy Haley MD Primary Care Prov ider Be Pacheco NP Unavailable [phone] Maycol Infante MD Unavailable Unavailable Sebastian Martinez MD Unavailable UnavailEve Blackmon MD Unavailable Elisa Romero NP Unavailable [phone] Marcus Murcia DO Unavailable Unavailable Encounter Details Date Type Department Care Team Description 04/07/2023 Orders Only Medical Records [address] [place] [address] [facility] Social History Tobacco Use Types Packs/Day Years [...] this encounter Results * OUTSIDE CT (03/30/2023) [facility] RADIOLOGY documented in this encounter Visit Diagnoses Not on filedocumented in this encounter Care Teams Machine Umbrella Tipper Relationship Specialty Start Date End Date Kathy Christopher MD [address] [place] [address] PCP - General Internal Medicine 01/21/22 Kameron Zuñiga MD Social Media Content Manager Cardiovascular Disease 08/04/21 Katya Lopez NP Cardiology 08/04/21 01/30/24 Be Pacheco NP [address] [place] [address] Nurse Practitioner Cardiology 10/17/22 01/30/24 Maycol Infante MD [address] [place] [address] Specialist Pulmonology 10/19/22 Sebastian Martinez MD [address] [place] [address] Specialist Ophthalmology 03/21/23 Eve Juan MD [address] [place] [address] [place] [address] Specialist UROGYNECOLOGY 03/21/23 Elisa Romero NP [address] [place] [address] [place] [address] Cardiology 01/31/24 Marcus Murcia DO [address] [place] [address] [place] [address] Specialist Physiatry 03/26/24 documented as of this encounter
--- OUTSIDE RECORDS SUMMARY | 2025-05-09 15:28 | XMS_ITS | Encounter Summary ---
Author Organization [facility] Address [address] [place] [address] Care Team Providers Care Mma Fighter Name Role Phone Kameron Zuñiga MD Unavailable Katya Lopez NP Unavailable Unavailab Kathy Haley MD Primary Care Prov ider Be Pacheco NP Unavailable Maycol Infante MD Unavailable Unavailable Sebastian Martinez MD Unavailable UnavailEve Blackmon MD Unavailable Elisa Romero NP Unavailable [phone] Marcus Murcia DO Unavailable Unavailable Reason for Visit * Reason Onset Date Comments Echocardiogram 12/06/2022 Encounter Details Date Type Department Care Team Description 12/06/2022 Telephone Cardio PVCA Diag Testing [address] [facility] [address] [place], [place] [phone] Jessica Esqueda PA-C [address] [place], [place] [phone] Echocardiogram Social History Tobacco Use Types Packs/Day [...] 2.6 mg/dL 02/07/2023 8:28 PM EDT [facility] 02/07/2023 11:3 8 AM EDT 02/07/2023 11:39 AM EDT Narrative [facility] - 02/07/2023 8:28 PM EDT Release to patient->Immediate Jessica Esqueda PA-C LAB [facility] * (ABNORMAL) CHG BASIC METABOLIC PANEL CALCIUM TOTAL (02/07/2023 11:38 AM EDT) GLOMERULAR FILTRATION RATE 54(L) >60 02/07/2023 8:12 PM EDT [facility] Comment: This eGFR result was calculated using the CKD-EPI 2020 Creatinine Equation GLUCOSE 113(H) 70 - 100 mg/dL 02/07/2023 8:12 PM EDT [facility] Comment:Reference range appl icable to fasting specimens only Blood Urea Nitrogen 12 5 - 25 mg/dL 02/07/2023 8:12 PM EDT [facility] CREAT 1.06 0.5 - 1.1 mg/dL 02/07/2023 8:12 PM EDT [facility] NA 141 135 - 145 mEq/L 02/07/2023 8:12 PM EDT [facility] K 4.3 3.5 - 5.5 mmol/L 02/07/2023 8:12 PM EDT [facility] CL 105 96 - 110 mmol/L 02/07/2023 8:12 PM EDT [facility] CARBON DIOXIDE (CO2) 28 21 - 32 mmol/L 02/07/2023 8:12 PM EDT [facility] ANION GAP 8 3 - 11 02/07/2023 [...] Shortness of breath Coronary artery disease involving united [place] coronary artery of [place] heart without angina pectoris documented in this encounter Care Teams Mma Fighter Relationship Specialty Start Date End Date Kathy Christopher MD [address] [place] [address] PCP - General Internal Medicine 01/21/22 Kameron Zuñiga MD Aquatic Laborer Cardiovascular Disease 08/04/21 Katya Lopez NP Cardiology 08/04/21 01/30/24 Be Pacheco NP [address] [place] [address] Nurse Practitioner Cardiology 10/17/22 01/30/24 Maycol Infante MD [address] [place] [address] Specialist Pulmonology 10/19/22 Sebastian Martinez MD [address] [place] [address] Specialist Ophthalmology 03/21/23 Eve Juan MD [address] [place] [address] [place] [address] Specialist UROGYNECOLOGY 03/21/23 Elisa Romero NP [address] [place] [address] [place] [address] Cardiology 01/31/24 Marcus Murcia DO [address] [place] [address] [facility] [place] [address] Specialist Physiatry 03/26/24 documented as of this encounter
--- OUTSIDE RECORDS SUMMARY | 2025-05-09 15:28 | XMS_ITS | Data Portability ---
Author Organization [facility], [facility] Address [address] [place] [address] Care Team Providers Care Sewer Pipe Press Operator Name Role Phone [facility] PRIMARY [facility]ARE Referring Provider [phone] HIM [facility] OTHER Assessment Encounter Date Assessment Date Assessment LastModified by Organization Details LastModified Time 04/20/2024 04/20/2024 I provided real -time medical direction via phone for this encounter and was available for additional phone-based assistance as needed. I have reviewed and agree with the Assessment and Plan as documented by the Milking System Installer. Patient given the opportunity to ask questions. [...] on metoprolol to for rate control. Per workers compensation claims examiner on the scene, vital signs are stable [...] have any evidence of volume overload per workers compensation claims examiner on the scene. She has no evidence [...] respiratory specimen 2022 023 [email or web address] Main - [facility], [address] [place] [address], [id number] 3 20:04:39 rapid flu (A+B) 2022 023 [email or web address] [facility], [address] [place] [address], [phone] 3 20:04:40 rapid strep group A, throat 2022 023 [email or web address] [facility], [address] [place] [address], [id number] 3 20:04:38 culture, urine 2022 023 CLEMENT [facility] (Centralized Electronic Ordering - All Locations), Patient Can Go To The Location Of Their Choice, [id number] 3 07:41:06 Referral None recorded. Procedures None recorded. Surgeries None recorded. Imaging None recorded. Medication Orders Levaquin 500 mg tablet [email or web address] [place] [address], [address] [place] [address], [address], 13:34:52 Patient TargetsNo targets recorded. Patient InstructionsNo instructions recorded. Reason for Referral None Reported. Results Created Date Observation Date Name Description Value Unit Range Abnormal Flag Note LastModifiedBy Organization Detail LastModifiedTime 09/28/19 23 09/27/2022 URINE CULTU RE specimen description URINE Not Available [facility] (Centralized Electronic Ordering - All Locations) Patient Can Go To The Location Of Their Choice, [id number] 09/29/2022 07:41:06 09/28/19 23 09/27/2022 URINE CULTU RE special requests NONE Not Available [facility] (Centralized Electronic Ordering - All Locations) Patient Can Go To The Location Of Their Choice, [id number] 09/29/2022 07:41:06 09/28/19 23 09/29/2022 URINE CULTU RE culture NO GROWTH Not Available [facility] (Centralized Electronic Ordering - All Locations) Patient Can Go To The Location Of Their Choice, [facility] 09/29/2022 07:41:06 09/28/19 23 09/29/2022 URINE CULTU RE report status FINAL 2022 Not Available [facility] (Centralized Electronic Ordering - All Locations) Patient Can Go To The Location Of Their Choice, [facility] 09/29/2022 07:41:06 06/17/20 23 06/17/2023 rapid strep group A, throa t Strep negati ve Not Available [facility] ed [address] [place] [address], [address] [place] [address] 06/17/2023 20:04:20 06/17/20 23 06/17/2023 rapid flu (A+B) Flu negati ve Not Available [facility] ed [address] [place] [address], [address] [place] [address] 06/17/2023 20:04:18 06/17/20 23 06/17/2023 rapid SARS CoV 2 Ag, QL IA, respi rator y speci men rapid SARS CoV 2 Ag, QL IA, respiratory specimen negati ve Not Available [facility] ed [address] [place] [address], [address] [place] [address] 06/17/2023 20:04:15 Result Notes None recorded. Medical Equipment None Reported. Allergies Allergen ID Allergen Name Allergen Category Reaction Reaction Severity Criticality Documentation Date Start Date Code Code System Note Provider Name and Address Organization Details Recorded Time 7839 Product containin g penicilli n (product) medicatio n Not available Not available Not available 04/16/2024 79993 8001 SNOMED Not Available [facility] - production [...] ot Available Vitals Date Recorded Oxygen saturation Body temperature Heart rate Body weight Respiratory rate Systolic And Diastolic Provider Name and Address Organization Details Last Updated DateTime 3 98 % 95.7 [degF] 73 /min 11473.5 6 g 16 /min 125/67 mm[Hg] Not Available [facility] - production 3 13:30:35 Date Recorded Body weight Respiratory rate Heart rate Body height Body temperature Oxygen saturation Systolic And Diastolic Provider Name and Address Organization Details Last Updated DateTime 4 49838.5 6 g 18 /min 111 /min 162.56 cm 98.2 [degF] 94 % 117/66 mm[Hg] Not Available [facility] - production 4 14:23:22 Date Recorded Respiratory rate Body height Body weight Heart rate Oxygen saturation Body temperature Systolic And Diastolic Provider Name and Address Organization Details Last Updated DateTime 3 16 /min 162.56 cm 41273.5 6 g 90 /min 96 % 99.5 [degF] 143/68 mm[Hg] Not [...] Note [id number] Praveen Valdovinos MD Main - [address] [phone] 09/27/2022 13:30:25 09/29/2022 10:29:50 Acute urinary tract infection 681467225 N39.0 [id number] Petra Elmore MD Main - [address] [address] 06/17/2023 19:48:24 06/20/2023 12:24:39 Upper respiratory infection 49351543 J06.9 Evaluation in the field was performed by my workers compensation claims examiner colleague, as noted above, I provided real-time [...] shortness of breath, cough, chest pain, fever. [id number] Solange Casas MD Main - [address] [address] 04/20/2024 14:23:19 04/20/2024 19:15:29 Decreased urine output 796650063 R34 Chronic ki dney disease stage 3 979025808 N18.30 Tachycardia 7916067 R00. 0 Health Concerns Section Related Observation LastModified by Organization Detai ls LastModified Time None Recorded Concern Status LastModified by Organization Details LastModified Time None Recorded Advance Directives Directive None Recorded Payers Insurance Date Sequence Insurance Name Policy Number Policy Wagner Covered Member ID Wagner Member ID Guarantor Name 06/17/2023 1 [facility] - DOS PRIOR TO 2022 - DUAL ELIGIBLE (MEDICARE REPLACEMENT/ADV ANTAGE - HMO) Shea Ramirez [id number] Shea Ramirez 04/20/2024 1 [facility] - DOS ON OR AFTER 2022 - DUAL ELIGIBLE - HALFWAY OPTIONS AND ONE CARE (MEDICARE REPLACEMENT/ADV ANTAGE - HMO) Shea Ramirez [id number] Shea Ramirez Notes Date Note Type Note [...] . Member denies F/c/n/v/d Praveen Valdovinos MD [address] [place] [address],[address], [place], [address], [employer] 09/27/2022 13:35:12 023 text/ht ml HPI: Member [...] process visit. ................................... ................................... ................................... ................................... . Milking System Installer Note From Max Clemens: Pt reports dry [...] . Disposition: Fulfilled Petra Elmore MD [address] [facility],[address], [place], [address], JACQUES DANA CARRANZA 06/17/2023 20:04:49 024 text/ht ml HPI: mbr with multiple complaints, states experienced SOB last night where she had decided to take a diuretic, denies any Urine output at this time questioning retention , but does mention changing briefs multiple times over night, denies any Abdominal pain pressure or discomfort, no LE edema CP/N/V. per mbr B/P 153/78 HR 111. mbr requesting [facility] for evaluation.Protocol Used: Urinary SymptomsProtocol-Based Disposition: Consider [facility], CYLINDER TESTER, MD/HYDROLOGY PROFESSOR triage, PCP, or ED /Urgent Care Visit [...] Comments: Reviewed HPI SEGMD: Visit closed by [facility] end of shift before medic note transferred into [place], so I entered it below: SummarySmartcare visit [...] this was present yesterday in visit with HYDROLOGY PROFESSOR as well. Pt afebrile. Lung sounds clear bilaterally. Pt concerned about possible cloudy urine as well. Pt was unable to provide urine specimen for testing. Consulted with [facility] Dr. Casas who advised continuing to monitor symptoms. Reviewed red flags for ED. Pt education provided.Services ProvidedPatient EducationDispositionFulfilledWas patient sent to ED?[facility] consulted on the case?Yes - Solange Casas MD [address] [facility],[address], [place], [address], [employer] 04/23/2024 15:04:20 OBGyn Episode No OBEpisode recorded.
--- OUTSIDE RECORDS SUMMARY | 2025-05-09 15:28 | XMS_ITS | Encounter Summary ---
Author Organization [facility] Address [address] [place] [address] Care Team Providers Care Telecommunication Engineer Name Role Phone Wiley Thompson MD Primary Care Provider Kameron Cornejo MD Unavailable Katya Lopez NP Unavailable Unavailab Kathy Christopher MD Primary Care Prov ider Be Pacheco NP Unavailable [phone] Maycol Infante MD Unavailable Unavailable Sebastian Martinez MD Unavailable UnavailEve Blackmon MD Unavailable Elisa Romero NP Unavailable [phone] Marcus Murcia DO Unavailable Unavailable Encounter Details Date Type Department Care Team Description 06/10/2016 Release of Information Medical Records [address] [place] [address] Abstract, Provider Social History Tobacco Use Types [...] on filedocumented in this encounter Care Teams Telecommunication Engineer Relationship Specialty Start Date End Date Wiley Thompson MD PCP - General Internal Medicine 06/04/14 01/20/22 Kathy Christopher MD [address] [place] [address] PCP - General Internal Medicine 01/21/22 Kameron Zuñiga MD Educational Programming Director Cardiovascular Disease 08/04/21 Katya Lopez NP Cardiology 08/04/21 01/30/24 Be Pacheco NP [address] [place] [address] Nurse Practitioner Cardiology 10/17/22 01/30/24 Maycol Infante MD [address] [place] [address] Specialist Pulmonology 10/19/22 Sebastian Martinez MD [address] [place], [place] [phone] Specialist Ophthalmology 03/21/23 Eve Juan MD [address] [place] [address] [place] [address] Specialist UROGYNECOLOGY 03/21/23 Elisa Romero NP [address] [place] [address] [place] [address] Cardiology 01/31/24 Marcus Murcia DO [address] [place] [address] [place] [address] Specialist Physiatry 03/26/24 documented as of this encounter
--- OUTSIDE RECORDS SUMMARY | 2025-05-09 15:28 | XMS_ITS | Encounter Summary ---
Author Organization [facility] Address [address] [place] [address] Care Team Providers Care Hide And Skin Classer Name Role Phone Wiley Thompson MD Primary Care Provider Kameron Cornejo MD Unavailable Katya Lopez NP Unavailable Unavailab Kathy Haley MD Primary Care Prov ider Be Pacheco NP Unavailable [phone] Maycol Infante MD Unavailable Unavailable Sebastian Martinez MD Unavailable UnavailEve Blackmon MD Unavailable Elisa Romero NP Unavailable Marcus Murcia DO Unavailable Unavailable Encounter Details Date Type Department Care Team Description 01/29/2021 Director Of Vocational Training Report Medical Records [address] [place] [address] Maycol Infante MD Social History Tobacco Use [...] on filedocumented in this encounter Care Teams Hide And Skin Classer Relationship Specialty Start Date End Date Wiley Thompson MD PCP - General Internal Medicine 06/04/14 01/20/22 Kathy Christopher MD [address] [place] [address] PCP - General Internal Medicine 01/21/22 Kameron Zuñiga MD Office Correspondent Cardiovascular Disease 08/04/21 Katya Lopez NP Cardiology 08/04/21 01/30/24 Be Pacheco NP [address] [place] [address] Nurse Practitioner Cardiology 10/17/22 01/30/24 Maycol Infante MD [address] [place] [address] Specialist Pulmonology 10/19/22 Sebastian Martinez MD [address] [place] [address] Specialist Ophthalmology 03/21/23 Eve Juan MD [address] [place] [address] [place] [address] Specialist UROGYNECOLOGY 03/21/23 Elisa Romero NP [address] [place] [address] [place] [address] Cardiology 01/31/24 Marcus Murcia DO [address] [place] [address] [place] [address] Specialist Physiatry 03/26/24 documented as of this encounter
--- OUTSIDE RECORDS SUMMARY | 2025-05-09 15:28 | XMS_ITS | Encounter Summary ---
Author Organization [facility] Address [address] [place] [address] Care Team Providers Care Plastics Engineer Name Role Phone Kameron Zuñiga MD Unavailable Katya Lopez NP Unavailable Unavailab Kathy Haley MD Primary Care Prov ider Be Pacheco NP Unavailable [phone] Maycol Infante MD Unavailable Unavailable Sebastian Martinez MD Unavailable UnavailEve Blackmon MD Unavailable Elisa Romero NP Unavailable [phone] Marcus Murcia DO Unavailable Unavailable Encounter Details Date Type Department Care Team Description 04/17/2023 Film Examiner Report Medical Records [address] [place] [address] Maycol Infante MD Social History Tobacco Use [...] on filedocumented in this encounter Care Teams Plastics Engineer Relationship Specialty Start Date End Date Kathy Christopher MD [address] [place] [address] PCP - General Internal Medicine 01/21/22 Kameron Zuñiga MD Bankruptcy Paralegal Cardiovascular Disease 08/04/21 Katya Lopez NP Cardiology 08/04/21 01/30/24 Be Pacheco NP [address] [place] [address] Nurse Practitioner Cardiology 10/17/22 01/30/24 Maycol Infante MD [address] [place] [address] Specialist Pulmonology 10/19/22 Sebastian Martinez MD [address] [place] [address] Specialist Ophthalmology 03/21/23 Eve Juan MD [address] [place] [address] [place] [address] Specialist UROGYNECOLOGY 03/21/23 Elisa Romero NP [address] [place] [address] [place] [address] Cardiology 01/31/24 Marcus Murcia DO [address] [place] [address] [place] [address] Specialist Physiatry 03/26/24 documented as of this encounter
--- OUTSIDE RECORDS SUMMARY | 2025-05-09 15:28 | XMS_ITS | Encounter Summary ---
Author Organization [facility] Address [address] [place] [address] Care Team Providers Care Broomcorn Scraper Name Role Phone Kameron Zuñiga MD Unavailable Katya Lopez NP Unavailable Unavailab Kathy Haley MD Primary Care Prov ider Be Pacheco NP Unavailable [phone] Maycol Infante MD Unavailable Unavailable Sebastian Martinez MD Unavailable UnavailEve Blackmon MD Unavailable Elisa Romero NP Unavailable [phone] Marcus Murcia DO Unavailable Unavailable Encounter Details Date Type Department Care Team Description 02/14/2023 [place]dy Mill Worker Report Medical Records [address] [place] [address] Pierre Oliva, PAAdelaidaC Social History Tobacco Use [...] on filedocumented in this encounter Care Teams Broomcorn Scraper Relationship Specialty Start Date End Date Kathy Christopher MD [address] [place] [address] PCP - General Internal Medicine 01/21/22 Kameron Zuñiga MD Accountant Machine Processing Cardiovascular Disease 08/04/21 Katya Lopez NP Cardiology 08/04/21 01/30/24 Be Pacheco NP [address] [place] [address] Nurse Practitioner Cardiology 10/17/22 01/30/24 Maycol Infante MD [address] [place] [address] Specialist Pulmonology 10/19/22 Sebastian Martinez MD [address] [place] [address] Specialist Ophthalmology 03/21/23 Eve Juan MD [address] [place] [address] [place] [address] Specialist UROGYNECOLOGY 03/21/23 Elisa Romero NP [address] [place] [address] [place] [address] Cardiology 01/31/24 Marcus Murcia DO [address] [place] [address] [place] [address] Specialist Physiatry 03/26/24 documented as of this encounter
--- OUTSIDE RECORDS SUMMARY | 2025-05-09 15:28 | XMS_ITS | Encounter Summary ---
Author Organization [facility] Address [address] [place] [address] Care Team Providers Care Jamb Cutter Name Role Phone Kameron Zuñiga MD Unavailable Katya Lopez NP Unavailable Unavailab Kathy Haley MD Primary Care Prov ider Be Pacheco NP Unavailable [phone] Maycol Infante MD Unavailable Unavailable Sebastian Martinez MD Unavailable UnavailEve Blackmon MD Unavailable Elisa Romero NP Unavailable [phone] Marcus Murcia DO Unavailable Unavailable Reason for Visit * Reason Onset Date Comments Prior Authorization 02/15/2023 CT ABD & PEL VIS Encounter Details Date Type Department Care Team Description 02/15/2023 Telephone Adult Medicine [address] [phone] Juan Mock MD [address] [place] [address] [phone] Prior Authorization (CT ABD & PELVIS) Social [...] EDT Spoke with the patient insurance company, [employer]. Appeal filed. Also spoke with the telephone sales representative that I did call for the peer to peer and gave them my colntact information but nobody reached out to me. For the pool: Please inform the patient that we have filed an appeal for the denied CT scan * Telephone Encounter - Shannon Hoff - 03/03/2023 3:[address] Mock, I received a call from the pt's insurance company, [employer] regarding the P2P request. They stated that [...] a CT ABD & PELVIS, CPT code 78581. However this request was denied by the patient's insurance. If you would like to discuss this decision and set up a P2P please have someone call [phone] to set a date and time. Thank you, Shannon Milner Prior Auth * Telephone Encounter - Shannon Hoff - 02/15/2023 3:14 PM EDT [facility] AUTH PENDING VIA FAX FOR NEW CPT CODE - FORM AND CLINICALS SENT documented in this encounter Plan of Treatment Not on file documented as of this encounter Visit Diagnoses Not on filedocumented in this encounter Care Teams Jamb Cutter Relationship Specialty Start Date End Date Kathy Christopher MD [address] [place] [address] PCP - General Internal Medicine 01/21/22 Kameron Zuñiga MD Software Configuration Specialist Cardiovascular Disease 08/04/21 Katya Lopez NP Cardiology 08/04/21 01/30/24 Be Pacheco NP [address] [place] [address] Nurse Practitioner Cardiology 10/17/22 01/30/24 Maycol Infante MD [address] [place] [address] Specialist Pulmonology 10/19/22 Sebastian Martinez MD [address] [place] [address] Specialist Ophthalmology 03/21/23 Eve Juan MD [address] [place] [address] [place] [address] Specialist UROGYNECOLOGY 03/21/23 Elisa Romero NP [address] [facility] [place] [address] Cardiology 01/31/24 Marcus Murcia DO [address] [facility] [place] [address] Specialist Physiatry 03/26/24 documented as of this encounter
--- OUTSIDE RECORDS SUMMARY | 2025-05-09 15:28 | XMS_ITS | Encounter Summary ---
Author Organization [facility] Address [address] [place] [address] Care Team Providers Care Bootmaker Hand Name Role Phone Wiley Thompson MD Primary Care Provider Kameron Cornejo MD Unavailable Katya Lopez ART INSTRUCTOR Unavailable Unavailab Kathy Haley MD Primary Care Prov ider Be Pacheco NP Unavailable [phone] Maycol Infante MD Unavailable Unavailable Sebastian Martinez MD Unavailable UnavailEve Blackmon MD Unavailable Elisa Romero NP Unavailable [phone] Marcus Murcia DO Unavailable Unavailable Encounter Details Date Type Department Care Team Description 09/23/2018 Hospital Medical Records [address] [place] [address] Morro Edwards MD Social History Tobacco Use [...] on filedocumented in this encounter Care Teams Bootmaker Hand Relationship Specialty Start Date End Date Wiley Thompson MD PCP - General Internal Medicine 06/04/14 01/20/22 Kathy Christopher MD [address] [place] [address] PCP - General Internal Medicine 01/21/22 Kameron Zuñiga MD Child Support Officer Cardiovascular Disease 08/04/21 Katya Lopze NP Cardiology 08/04/21 01/30/24 Be Pacheco NP [address] [place] [address] Nurse Practitioner Cardiology 10/17/22 01/30/24 Maycol Infante MD [address] [place] [address] Specialist Pulmonology 10/19/22 Sebastian Martinez MD [address] [place] [address] Specialist Ophthalmology 03/21/23 Eve Juan MD [address] [place] [address] [place] [address] Specialist UROGYNECOLOGY 03/21/23 Elisa Romero NP [address] [place] [address] [place] [address] Cardiology 01/31/24 Marcus Murcia DO [address] [place] [address] [place] [address] Specialist Physiatry 03/26/24 documented as of this encounter
--- OUTSIDE RECORDS SUMMARY | 2025-05-09 15:28 | XMS_ITS | Encounter Summary ---
Author Organization [facility] Address [address] [place] [address] Care Team Providers Care Building Insulation Installer Name Role Phone Kameron Zuñiga MD Unavailable Katya Lopez NP Unavailable Unavailab le Kathy Christopher MD Primary Care Prov ider Be Pacheco NP Unavailable [phone] Maycol Infante MD Unavailable Unavailable Sebastian Martinez MD Unavailable UnavailEve Blackmon MD Unavailable Elisa Romero NP Unavailable [phone] Marcus Murcia DO Unavailable Unavailable Encounter Details Date Type Department Care Team Description 06/07/2023 Information Security Specialist Report Medical Records [address] [place] [address] Lalitha Diego, [facility]- Social History Tobacco Use Types Packs/Day [...] on filedocumented in this encounter Care Teams Building Insulation Installer Relationship Specialty Start Date End Date Kathy Christopher MD [address] [place] [address] [phone] PCP - General Internal Medicine 01/21/22 Kameron Zuñiga MD Livestock Exhibitor Cardiovascular Disease 08/04/21 Katya Lopez, IRMA Cardiology 08/04/21 01/30/24 Be Pacheco NP [address] [place] [address] Nurse Practitioner Cardiology 10/17/22 01/30/24 Maycol Infante MD [address] [place] [address] Specialist Pulmonology 10/19/22 Sebastian Martinez MD [address] [place] [address] Specialist Ophthalmology 03/21/23 Eve Juan MD [address] [place] [address] [place] [address] Specialist UROGYNECOLOGY 03/21/23 Elisa Romero NP [address] [place] [address] [place] [address] Cardiology 01/31/24 Marcus Murcia DO [address] [place] [address] [place] [address] Specialist Physiatry 03/26/24 documented as of this encounter
--- OUTSIDE RECORDS SUMMARY | 2025-05-09 15:28 | XMS_ITS | Encounter Summary ---
Author Organization [facility] Address [address] [place] [address] Care Team Providers Care Security System Technician Name Role Phone Wiley Thompson MD Primary Care Provider Kameron Cornejo MD Unavailable Katya Lopez NP Unavailable Unavailab Kathy Haley MD Primary Care Prov ider Be Pacheco NP Unavailable [phone] Maycol Infante MD Unavailable Unavailable Sebastian Martinez MD Unavailable UnavailEve Blackmon MD Unavailable Elisa Romero NP Unavailable [phone] Marcus Murcia DO Unavailable Unavailable Reason for Visit * Reason Comments E-prescribe Rx Request Encounter Details Date Type Department Care Team Description 05/06/2021 Refill Adult Medicine [address] [id number] Pau Shultz PA [address] [place] [address] [id number] E-prescribe Rx Request Social History Tobacco Use [...] Patients current insurance carrier is: [facility] / Plan: HMO $0 [facility] [id number] / Product Type: HMO [id number] documented in this encounter Plan of Treatment Not on file documented as of this encounter Visit Diagnoses Not on filedocumented in this encounter Care Teams Security System Technician Relationship Specialty Start Date End Date Wiley Thompson MD PCP - General Internal Medicine 06/04/14 01/20/22 Kathy Christopher MD [address] [place] [address] 18609 PCP - General Internal Medicine 01/21/22 Kameron Zuñiga MD Jigger Crown Pouncing Machine Operator Cardiovascular Disease 08/04/21 Katya Lopez NP Cardiology 08/04/21 01/30/24 Be Pacheco NP [address] [place] [address] 11598 Nurse Practitioner Cardiology 10/17/22 01/30/24 Maycol Infante MD [address] [place] [address] 22281 Specialist Pulmonology 10/19/22 Sebastian Martinez MD [address] [place] [address] 22499 Specialist Ophthalmology 03/21/23 Eve Juan MD [address] [place] [address] [place] [address] Specialist UROGYNECOLOGY 03/21/23 Elisa Romero NP [address] [place] [address] [place] [address] Cardiology 01/31/24 Marcus Murcia DO [address] [place] [address] [place] [address] Specialist Physiatry 03/26/24 documented as of this encounter
--- OUTSIDE RECORDS SUMMARY | 2025-05-09 15:28 | XMS_ITS | Encounter Summary ---
Author Organization [facility] Address [address] [place] [address] Care Team Providers Care Fibre Optic Cable Splicer Name Role Phone Kameron Zuñiga MD Unavailable Katya Lopez NP Unavailable Unavailab Kathy Haley MD Primary Care Prov ider Be Pacheco NP Unavailable [phone] Maycol Infante MD Unavailable Unavailable Sebastian Martinez MD Unavailable UnavailEve Blackmon MD Unavailable Elisa Romero NP Unavailable [phone] Marcus Murcia DO Unavailable Unavailable Encounter Details Date Type Department Care Team Description 05/09/2023 Manager Product Report Medical Records [address] [place] [address] Lalitha Diego, [facility]- Social History Tobacco Use Types Packs/Day [...] on filedocumented in this encounter Care Teams Fibre Optic Cable Splicer Relationship Specialty Start Date End Date Kathy Christopher MD [address] [place] [address] 95284 PCP - General Internal Medicine 01/21/22 Kameron Zuñiga MD Yarn Salvager Cardiovascular Disease 08/04/21 Katya Lopez NP Cardiology 08/04/21 01/30/24 Be Pacheco NP [address] [place] [address] 55985 Nurse Practitioner Cardiology 10/17/22 01/30/24 Maycol Infante MD [address] [place] [address] 99990 Specialist Pulmonology 10/19/22 Sebastian Martinez MD [address] [place] [address] 66237 Specialist Ophthalmology 03/21/23 Eve Juan MD [address] [place] [address] [place] [address] Specialist UROGYNECOLOGY 03/21/23 Elisa Romero NP [address] [place] [address] [place] [address] Cardiology 01/31/24 Marcus Murcia DO [address] [place] [address] [place] [address] Specialist Physiatry 03/26/24 documented as of this encounter
--- OUTSIDE RECORDS SUMMARY | 2025-05-09 15:28 | XMS_ITS | Encounter Summary ---
Author Organization [facility] Address [address] [place] [address] Care Team Providers Care Rotary Kiln Operator Name Role Phone Kameron Zuñiga MD Unavailable Katya Lopez NP Unavailable Unavailab le Kathy Christopher MD Primary Care Prov ider Be Pacheco NP Unavailable [phone] Maycol Infante MD Unavailable Unavailable Sebastian Martinez MD Unavailable UnavailEve Blackmon MD Unavailable Elisa Romero NP Unavailable [phone] Marcus Murcia DO Unavailable Unavailable Encounter Details Date Type Department Care Team Description 07/19/2023 Vp Integration Report Medical Records [address] [place] [address] 79[address] Maycol Infante MD Social History Tobacco Use [...] on filedocumented in this encounter Care Teams Rotary Kiln Operator Relationship Specialty Start Date End Date Kathy Christopher MD [address] [place], [place] [phone] PCP - General Internal Medicine 01/21/22 Kameron Zuñiga MD Enterprise Records Analyst Cardiovascular Disease 08/04/21 Katya Lopez NP Cardiology 08/04/21 01/30/24 Be Pacheco NP [address] [place] [address] 15300 Nurse Practitioner Cardiology 10/17/22 01/30/24 Maycol Infante MD [address] [place] [address] 63824 Specialist Pulmonology 10/19/22 Sebastian Martinez MD [address] [place] [address] Specialist Ophthalmology 03/21/23 Eve Juan MD [address] [place] [address] [place] [address] Specialist UROGYNECOLOGY 03/21/23 Elisa Romero NP [address] [place] [address] [place] [address] Cardiology 01/31/24 Marcus Murcia DO [address] [place] [address] [place] [address] Specialist Physiatry 03/26/24 documented as of this encounter
--- OUTSIDE RECORDS SUMMARY | 2025-05-09 15:28 | XMS_ITS | Encounter Summary ---
Author Organization [facility] Address [address] [place] [address] Care Team Providers Care Doubler Helper Name Role Phone Bri Santacruz MD Primary Care Provider Unavailable Wiley Thompson MD Primary Care Provider Kameron Cornejo MD Unavailable Katya Lopez NP Unavailable Unavailab Kathy Haley MD Primary Care Prov ider Be Pacheco NP Unavailable [phone] Maycol Infante MD Unavailable Unavailable Sebastian Martinez MD Unavailable UnavailEve Blackmon MD Unavailable Elisa Romero NP Unavailable [phone] Marcus Murcia DO Unavailable Unavailable Encounter Details Date Type Department Care Team Description 12/31/2013 Telephone Adult Medicine [address] [address] Bri Santacruz MD Social History Tobacco Use [...] on filedocumented in this encounter Care Teams Doubler Helper Relationship Specialty Start Date End Date Bri Santacruz MD PCP - General Internal Medicine 04/23/12 06/03/14 Wiley Thompson MD PCP - General Internal Medicine 06/04/14 01/20/22 Kathy Christopher MD [address] [place] [address] 9[address]99 PCP - General Internal Medicine 01/21/22 Kameron Zuñiga MD Inspector Handbag Frames Cardiovascular Disease 08/04/21 Katya Lopez NP Cardiology 08/04/21 01/30/24 Be Pacheco NP [address] [place] [address] 85189 Nurse Practitioner Cardiology 10/17/22 01/30/24 Maycol Infante MD [address] [place] [address] 18613 Specialist Pulmonology 10/19/22 Sebastian Martinez MD [address] [place] [address] 35377 Specialist Ophthalmology 03/21/23 Eve Juan MD [address] [place] [address] [place] [address] Specialist UROGYNECOLOGY 03/21/23 Elisa Romero NP [address] [place] [address] [place] [address] Cardiology 01/31/24 Marcus Murcia DO [address] [place] [address] [place] [address] Specialist Physiatry 03/26/24 documented as of this encounter
--- OUTSIDE RECORDS SUMMARY | 2025-05-09 15:28 | XMS_ITS | Encounter Summary ---
Author Organization [facility] Address [address] [place] [address] Care Team Providers Care Cloth Seconds Sorter Name Role Phone Wiley Thompson MD Primary Care Provider Kameron Cornejo MD Unavailable Katya Lopez NP Unavailable Unavailab Kathy Christopher MD Primary Care Prov ider eB Pacheco NP Unavailable [phone] Maycol Infante MD Unavailable Unavailable Sebastian Martinez MD Unavailable UnavailEve Blackmon MD Unavailable Elisa Romero NP Unavailable [phone] Marcus Murcia DO Unavailable Unavailable Encounter Details Date Type Department Care Team Description 08/07/2018 [facility] Medical Records [address] [place] [address] Abstract, Provider Social History Tobacco Use Types [...] filedocumented in this encounter Care Teams Cloth Seconds Sorter Relationship Specialty Start Date End Date Wiley Thompson MD PCP - General Internal Medicine 06/04/14 01/20/22 Kathy Christopher MD [address] [place] [address] 47462 PCP - General Internal Medicine 01/21/22 Kameron Zuñiga MD Commercial Real Estate Broker Cardiovascular Disease 08/04/21 Katya Lopez, IRMA Cardiology 08/04/21 01/30/24 Be Pacheco NP [address] [place] [address] 87852 Nurse Practitioner Cardiology 10/17/22 01/30/24 Maycol Infante MD [address] [place] [address] 01053 Specialist Pulmonology 10/19/22 Sebastian Martinez MD [address] [place] [address] 45327 Specialist Ophthalmology 03/21/23 Eve Juan MD [address] [place] [address] [place] [address] Specialist UROGYNECOLOGY 03/21/23 Elisa Romero NP [address] [place] [address] [place] [address] Cardiology 01/31/24 Marcus Murcia DO [address] [place] [address] [place] [address] Specialist Physiatry 03/26/24 documented as of this encounter
--- OUTSIDE RECORDS SUMMARY | 2025-05-09 15:28 | XMS_ITS | Encounter Summary ---
Author Organization [facility] Address [address] [place] [address] Care Team Providers Care Reconstructive Surgeon Name Role Phone Wiley Thompson MD Primary Care Provider Kameron Cornejo MD Unavailable Katya Lopez NP Unavailable Unavailab Kathy Christopher MD Primary Care Prov ider Be Pacheco NP Unavailable [phone] Maycol Infante MD Unavailable Unavailable Sebastian Martinez MD Unavailable UnavailEve Blackmon MD Unavailable Elisa Romero NP Unavailable [phone] Marcus Murcia DO Unavailable Unavailable Encounter Details Date Type Department Care Team Description 04/29/2016 Controlled Substance Plan Medical Records [address] [place] [address] Abstract, Provider Social History Tobacco Use Types [...] on filedocumented in this encounter Care Teams Reconstructive Surgeon Relationship Specialty Start Date End Date Wiley Thompson MD PCP - General Internal Medicine 06/04/14 01/20/22 Kathy Christopher MD [address] [place] [address] 17369 PCP - General Internal Medicine 01/21/22 Kameron Zuñiga MD Mixer Slagman Cardiovascular Disease 08/04/21 Katya Lopez NP Cardiology 08/04/21 01/30/24 Be Pacheco NP [address] [place] [address] 93098 Nurse Practitioner Cardiology 10/17/22 01/30/24 Maycol Infante MD [address] [place] [address] 81889 Specialist Pulmonology 10/19/22 Sebastian Martinez MD [address] [place], [place] 3932[address] Specialist Ophthalmology 03/21/23 Eve Juan MD [address] [place] [address] [place] [address] Specialist UROGYNECOLOGY 03/21/23 Elisa Romero NP [address] [place] [address] [place] [address] Cardiology 01/31/24 Marcus Murcia DO [address] [place] [address] [place] [address] Specialist Physiatry 03/26/24 documented as of this encounter
--- OUTSIDE RECORDS SUMMARY | 2025-05-09 15:28 | XMS_ITS | Encounter Summary ---
Author Organization [facility] Address [address] [place] [address] Care Team Providers Care Head Cd Reactor Operator Name Role Phone Wiley Thompson MD Primary Care Provider Kameron Cornejo MD Unavailable Katya Lopez NP Unavailable Unavailab Kathy Haley MD Primary Care Prov ider Be Pacheco NP Unavailable [phone] Maycol Infante MD Unavailable Unavailable Sebastian Martinez MD Unavailable UnavailEve Blackmon MD Unavailable Elisa Romero NP Unavailable [phone] Marcus Murcia DO Unavailable Unavailable Encounter Details Date Type Department Care Team Description 09/26/2014 Hospital Medical Records [address] [place] [address] Kameron Zuñiga MD [address] [place], [place] [phone] Social History Tobacco Use Types Packs/Day Years [...] on filedocumented in this encounter Care Teams Head Cd Reactor Operator Relationship Specialty Start Date End Date Wiley Thompson MD PCP - General Internal Medicine 06/04/14 01/20/22 Kathy Christopher MD [address] [place] [address] 33102 PCP - General Internal Medicine 01/21/22 Kameron Zuñiga MD Access Rep Cardiovascular Disease 08/04/21 Katya Lopez NP Cardiology 08/04/21 01/30/24 Be Pacheco NP [address] [place] [address] 30259 Nurse Practitioner Cardiology 10/17/22 01/30/24 Maycol Infante MD [address] [place] [address] 16997 Specialist Pulmonology 10/19/22 Sebastian Martinez MD [address] [place] [address] 18415 Specialist Ophthalmology 03/21/23 Eve Juan MD [address] [place] [address] [place] [address] Specialist UROGYNECOLOGY 03/21/23 Elisa Romero NP [address] [place] [address] [place] [address] Cardiology 01/31/24 Marcus Murcia DO [address] [place] [address] [place] [address] Specialist Physiatry 03/26/24 documented as of this encounter
--- OUTSIDE RECORDS SUMMARY | 2025-05-09 15:28 | XMS_ITS | Encounter Summary ---
Author Organization [facility] Address [address] [place] [address] Care Team Providers Care Screener Perfumer Name Role Phone Wiley Thompson MD Primary Care Provider Kameron Cornejo MD Unavailable Katya Lopez NP Unavailable Unavailab Kathy Haley MD Primary Care Prov ider Be Pacheco NP Unavailable [phone] Maycol Infante MD Unavailable Unavailable Sebastian Martinez MD Unavailable UnavailEve Blackmon MD Unavailable Elisa Romero NP Unavailable [phone] Marcus Murcia DO Unavailable Unavailable Reason for Visit * Reason Comments E-prescribe Rx Request Encounter Details Date Type Department Care Team Description 05/25/2021 Refill Adult Medicine [address] [address] Wiley Thompson MD E-prescribe Rx Request Social [...] N/A Patients current insurance carrier is: Payor: [facility] MCR / Plan: O $0 [facility] [id number] / Product Type: HMO [id number] documented in this encounter Plan of Treatment Not on file documented as of this encounter Visit Diagnoses Not on filedocumented in this encounter Care Teams Screener Perfumer Relationship Specialty Start Date End Date Wiley Thompson MD PCP - General Internal Medicine 06/04/14 01/20/22 Kathy Christopher MD [address] [place] [address] 38566 PCP - General Internal Medicine 01/21/22 Kameron Zuñiga MD Senior Research Analyst Cardiovascular Disease 08/04/21 Katya Lopez, IRMA Cardiology 08/04/21 01/30/24 Be Pacheco NP [address] [place] [address] 83406 Nurse Practitioner Cardiology 10/17/22 01/30/24 Maycol Infante MD [address] [place] [address] 57869 Specialist Pulmonology 10/19/22 Sebastian Martinez MD [address] [place] [address] 44373 Specialist Ophthalmology 03/21/23 Eve Juan MD [address] [place] [address] [place] [address] Specialist UROGYNECOLOGY 03/21/23 Elisa Romero NP [address] [place] [address] [place] [address] Cardiology 01/31/24 Marcus Murcia DO [address] [place] [address] [place] [address] Specialist Physiatry 03/26/24 documented as of this encounter
--- OUTSIDE RECORDS SUMMARY | 2025-05-09 15:28 | XMS_ITS | Encounter Summary ---
Author Organization [facility] Address [address] [place] [address] Care Team Providers Care Traffic Chief Name Role Phone Wiley Thompson MD Primary Care Provider Kameron Cornejo MD Unavailable Katya Lopez NP Unavailable Unavailab Kathy Haley MD Primary Care Prov ider Be Pacheco NP Unavailable [phone] Maycol Infante MD Unavailable Unavailable Sebastian Martinez MD Unavailable UnavailEve Blackmon MD Unavailable Elisa Romero NP Unavailable Marcus Murcia DO Unavailable Unavailable Reason for Visit * Reason Onset Date Comments Prior Authorization 12/18/2018 Encounter Details Date Type Department Care Team Description 12/18/2018 Telephone Adult Medicine [address] [address] Wiley Thompson MD Prior Authorization Social History [...] 1:50 PM EDT Methocarbamol not covered by [employer] Medication was denied because it a high risk for patients over 65 years and older. The patient has used:Meloxicam and naproxen Daniela Varghese [place] Prior Authorization Dept. Ext: [phone] Please respond back to [id number] Thank You * Telephone Encounter - Jennifer Majano - 12/19/2018 10:36 AM EDT Pharmacy calling back, Nellie [phone] Option 1, Ref #[id number], they need clarification on diagnosis and that [...] My Meds request: Yes -- White Code [id number] Name of Medication METHOCARBAMOL Dose of Medication 500 MG TABLETS What is the RX # from the faxed refill? NOT STATED ON FAX How does patient take this med? What Pharmacy did the fax come from: [facility] Pharmacy fax #: [phone] [employer] Party Information from fax: What Prescription Plan does the patient have? BIN/PCN if applicable: Cardholder ID: Person Code: Relationship Code: Help desk phone: [phone] documented in this encounter Plan of Treatment Not on file documented as of this encounter Visit Diagnoses Not on filedocumented in this encounter Care Teams Traffic Chief Relationship Specialty Start Date End Date Wiley Thompson MD PCP - General Internal Medicine 06/04/14 01/20/22 Kathy Christopher MD [address] [place] [address] PCP - General Internal Medicine 01/21/22 Kameron Zuñiga MD Administrative Assistant Data Entry Cardiovascular Disease 08/04/21 Katya Lopez NP Cardiology 08/04/21 01/30/24 Be Pacheco NP [address] [place] [address] 37094 Nurse Practitioner Cardiology 10/17/22 01/30/24 Maycol Infante MD [address] [place] [address] 10543 Specialist Pulmonology 10/19/22 Sebastian Martinez MD [address] [place] [address] 61258 Specialist Ophthalmology 03/21/23 Eve Juan MD [address] [place] [address] [place] [address] Specialist UROGYNECOLOGY 03/21/23 Elisa Romero NP [address] [place] [address] [place] [address] Cardiology 01/31/24 Marcus Murcia DO [address] [facility] [place] [address] Specialist Physiatry 03/26/24 documented as of this encounter
--- OUTSIDE RECORDS SUMMARY | 2025-05-09 15:28 | XMS_ITS | Encounter Summary ---
Author Organization [facility] Address [address] [place] [address] Care Team Providers Care Construction Director Name Role Phone Bri Santacruz MD Primary Care Provider Unavailable Wiley Thompson MD Primary Care Provider Kameron Cornejo MD Unavailable Katya Lopez NP Unavailable Unavailab Kathy Haley MD Primary Care Prov ider Be Pacheco NP Unavailable [phone] Maycol Infante MD Unavailable Unavailable Sebastian Martinez MD Unavailable UnavailEve Blackmon MD Unavailable Elisa Romero NP Unavailable [phone] Marcus Murcia DO Unavailable Unavailable Encounter Details Date Type Department Care Team Description 11/07/2012 Transfer Records Medical Records [address] [place] [address] Abstract, Provider Social History Tobacco Use Types [...] on filedocumented in this encounter Care Teams Construction Director Relationship Specialty Start Date End Date Bri Santacruz MD PCP - General Internal Medicine 04/23/12 06/03/14 Wiley Thompson MD PCP - General Internal Medicine 06/04/14 01/20/22 Kathy Christopher MD [address] [place] [address]88 PCP - General Internal Medicine 01/21/22 Kameron Zuñiga MD Controls Project Engineer Cardiovascular Disease 08/04/21 Katya Lopez NP Cardiology 08/04/21 01/30/24 Be Pacheco NP [address] [place] [address] 01994 Nurse Practitioner Cardiology 10/17/22 01/30/24 Maycol Infante MD [address] [place] [address] 47101 Specialist Pulmonology 10/19/22 Sebastian Martinez MD [address] [place] [address] 90552 Specialist Ophthalmology 03/21/23 Eve Juan MD [address] [place] [address] [place] [address] Specialist UROGYNECOLOGY 03/21/23 Elisa Romero NP [address] [place] [address] [place] [address] Cardiology 01/31/24 Marcus Murcia DO [address] [place] [address] [place] [address] Specialist Physiatry 03/26/24 documented as of this encounter
--- OUTSIDE RECORDS SUMMARY | 2025-05-09 15:28 | XMS_ITS | Encounter Summary ---
Author Organization [facility] Address [address] [place] [address] Care Team Providers Care Facility Maintenance Helper Name Role Phone Wiley Thompson MD Primary Care Provider Kameron Cornejo MD Unavailable Katya Lopez NP Unavailable Unavailab Kathy Christopher MD Primary Care Prov ider Be Pacheco NP Unavailable [phone] Maycol Infante MD Unavailable Unavailable Sebastian Martinez MD Unavailable UnavailEve Blackmon MD Unavailable Elisa Romero NP Unavailable [phone] Marcus Murcia DO Unavailable Unavailable Encounter Details Date Type Department Care Team Description 09/25/2018 Hospital Medical Records [address] [place] [address] Cory Baptiste MD Social History Tobacco Use [...] on filedocumented in this encounter Care Teams Facility Maintenance Helper Relationship Specialty Start Date End Date Wiley Thompson MD PCP - General Internal Medicine 06/04/14 01/20/22 Kathy Christopher MD [address] [place] [address]267 PCP - General Internal Medicine 01/21/22 Kameron Zuñiga MD Clinical Statistics Manager Cardiovascular Disease 08/04/21 Katya Lopez, IRMA Cardiology 08/04/21 01/30/24 Be Pacheco NP [address] [place] [address] 27046 Nurse Practitioner Cardiology 10/17/22 01/30/24 Maycol Infante MD [address] [place] [address] 86195 Specialist Pulmonology 10/19/22 Sebastian Martinez MD [address] [place] [address] 75164 Specialist Ophthalmology 03/21/23 Eve Juan MD [address] [place] [address] [place] [address] Specialist UROGYNECOLOGY 03/21/23 Elisa Romero NP [address] [place] [address] [place] [address] Cardiology 01/31/24 Marcus Murcia DO [address] [place] [address] [place] [address] Specialist Physiatry 03/26/24 documented as of this encounter
--- OUTSIDE RECORDS SUMMARY | 2025-05-09 15:28 | XMS_ITS | Encounter Summary ---
Author Organization [facility] Address [address] [place] [address] Care Team Providers Care Automatic Buffing Wheel Former Name Role Phone Wiley Thompson MD Primary Care Provider Kameron Cornejo MD Unavailable Katya Lopez NP Unavailable Unavailab Kathy Haley MD Primary Care Prov ider Be Pacheco NP Unavailable [phone] Maycol Infante MD Unavailable Unavailable Sebastian Martinez MD Unavailable UnavailEve Blackmon MD Unavailable Elisa Romero NP Unavailable [phone] Marcus Murcia DO Unavailable Unavailable Reason for Visit * Reason Comments E-prescribe Rx Request Encounter Details Date Type Department Care Team Description 06/07/2021 Refill Adult Medicine [address] [phone] Lance Valdes PA-C [address] [place] [address] [phone] E-prescribe Rx Request Social History Tobacco Use [...] Patients current insurance carrier is: Payor: [facility] / Plan: HMO $0 [place] [id number] / Product Type: HMO [id number] documented in this encounter Plan of Treatment Not on file documented as of this encounter Visit Diagnoses Not on filedocumented in this encounter Care Teams Automatic Buffing Wheel Former Relationship Specialty Start Date End Date Wiley Thompson MD PCP - General Internal Medicine 06/04/14 01/20/22 Kathy Christopher MD [address] [place] [address] PCP - General Internal Medicine 01/21/22 Kameron Zuñiga MD Pie Baker Cardiovascular Disease 08/04/21 Katya Lopez NP Cardiology 08/04/21 01/30/24 Be Pacheco NP [address] [place] [address] 18717 Nurse Practitioner Cardiology 10/17/22 01/30/24 Maycol Infante MD [address] [place] [address] Specialist Pulmonology 10/19/22 Sebastian Martinez MD [address] [place] [address] Specialist Ophthalmology 03/21/23 Eve Juan MD [address] [place] [address] [place] [address] Specialist UROGYNECOLOGY 03/21/23 Elisa Romero NP [address] [place] [address] [place] [address] Cardiology 01/31/24 Marcus Murcia DO [address] [place] [address] [place] [address] Specialist Physiatry 03/26/24 documented as of this encounter
--- OUTSIDE RECORDS SUMMARY | 2025-05-09 15:28 | XMS_ITS | Encounter Summary ---
Author Organization [facility] Address [address] [place] [address] Care Team Providers Care Submarine Advisory Team Watch Officer Name Role Phone Wiley Thompson MD Primary Care Provider Kameron Cornejo MD Unavailable Katya Lopez NP Unavailable Unavailab Kathy Haley MD Primary Care Prov ider Be Pacheco NP Unavailable [phone] Maycol Infante MD Unavailable Unavailable Sebastian Martinez MD Unavailable UnavailEve Blackmon MD Unavailable Elisa Romero NP Unavailable [phone] Marcus Murcia DO Unavailable Unavailable Reason for Referral * Specialist (Routine) - Closed Specialty Diagnoses / Procedures Referred By Contac t Referred To Contact Cardiology / Cardiac rehabilitation Procedures REFERRAL TO CARDIAC REHABILITATION Wiley Thompson MD [address] [place] [address] External Cardiac Rehab Referral ID Status Reason Start Date Expiration Date V isits Requested Visits Authorized DUPLICATE REQUEST Closed 10/21/2014 10/21/2015 1 1 Reason for Visit * Reason Onset Date Comments Provider Call Back 10/21/2014 Encounter Details Date Type Department Care Team Description 10/21/2014 Telephone Adult [address] [phone] Wiley Thompson MD Provider Call Back Social [...] - 10/21/2014 3:03 PM EDT Harvey from [facility] is looking for a p/a [...] on filedocumented in this encounter Care Teams Submarine Advisory Team Watch Officer Relationship Specialty Start Date End Date Wiley Thompson MD PCP - General Internal Medicine 06/04/14 01/20/22 Kathy Christopher MD [address] [place] [address] PCP - General Internal Medicine 01/21/22 Kameron Zuñiga MD Elocution Teacher Cardiovascular Disease 08/04/21 Katya Lopez NP Cardiology 08/04/21 01/30/24 Be Pacheco NP [address] [place] [address] Nurse Practitioner Cardiology 10/17/22 01/30/24 Maycol Infante MD [address] [place] [address] Specialist Pulmonology 10/19/22 Sebastian Martinez MD [address] [place], [place] [phone] Specialist Ophthalmology 03/21/23 Eve Juan MD [address] [place] [address] [place] [address] Specialist UROGYNECOLOGY 03/21/23 Elisa Romero NP [address] [place] [address] [place] [address] Cardiology 01/31/24 Marcus Murcia DO [address] [place] [address] [place] [address] Specialist Physiatry 03/26/24 documented as of this encounter
--- OUTSIDE RECORDS SUMMARY | 2025-05-09 15:29 | XMS_ITS | Encounter Summary ---
Author Organization [facility] Address [address] [place] [address] Care Team Providers Care Dba Manager Name Role Phone Kameron Zuñiga MD Unavailable Katya Lopez NP Unavailable Unavailab Kathy Haley MD Primary Care Prov ider Be Pacheco NP Unavailable [phone] Maycol Infante MD Unavailable Unavailable Sebastian Martinez MD Unavailable UnavailEve Blackmon MD Unavailable Elisa Romero NP Unavailable Marcus Murcia DO Unavailable Unavailable Encounter Details Date Type Department Care Team Description 10/21/2022 SCAN Medical Records [address] [place] [place] [id number] Abstract, Provider Social History Tobacco Use Types [...] on filedocumented in this encounter Care Teams Dba Manager Relationship Specialty Start Date End Date Kathy Christopher MD [address] [place] [address] PCP - General Internal Medicine 01/21/22 Kameron Zuñiga MD Scale Attendant Cardiovascular Disease 08/04/21 Katya Lopez NP Cardiology 08/04/21 01/30/24 Be Pacheco NP [address] [place] [address] 69298 Nurse Practitioner Cardiology 10/17/22 01/30/24 Maycol Infante MD [address] [place] [address]397 Specialist Pulmonology 10/19/22 Sebastian Martinez MD [address] [place] [address] Specialist Ophthalmology 03/21/23 Eve Juan MD [address] [place] [address] [place] [address] Specialist UROGYNECOLOGY 03/21/23 Elisa Romero NP [address] [place] [address] [place] [address] Cardiology 01/31/24 Marcus Murcia DO [address] [place] [address] [place] [address] Specialist Physiatry 03/26/24 documented as of this encounter
--- OUTSIDE RECORDS SUMMARY | 2025-05-09 15:29 | XMS_ITS | Encounter Summary ---
Author Organization [facility] Address [address] [place] [address] Care Team Providers Care Inspector Hairspring Truing Name Role Phone Lance Lorenzo Primary Care Provider Unavailab Bri Cooper MD Primary Care Provider Unavailable Wiley Thompson MD Primary Care Provider Kameron Cornejo MD Unavailable Katya Lopez NP Unavailable Unavailab Kathy Haley MD Primary Care Prov ider Be Pacheco RAGMAN Unavailable [phone] Maycol Infante MD Unavailable Unavailable Sebastian Martinez MD Unavailable UnavailEve Blackmon MD Unavailable Elisa Romero NP Unavailable [phone] Marcus Murcia DO Unavailable Unavailable Encounter Details Date Type Department Care Team Description 01/02/2012 Lumber Press Operator Report Medical Records [address] [place] [address] Inderjit Bonilla Social History Tobacco Use Types [...] filedocumented in this encounter Care Teams Inspector Hairspring Truing Relationship Specialty Start Date End Date Lance Lorenzo PCP - General Internal Medicine 06/19/11 04/22/12 Bri Santacruz MD PCP - General Internal Medicine 04/23/12 06/03/14 Wiley Thompson MD PCP - General Internal Medicine 06/04/14 01/20/22 Kathy Christopher MD [address] [place] [address] 27969 PCP - General Internal Medicine 01/21/22 Kameron Zuñiga MD Chemical Engineering Technician Cardiovascular Disease 08/04/21 Katya Lopez NP Cardiology 08/04/21 01/30/24 Be Pacheco NP [address] [place] [address]13 Nurse Practitioner Cardiology 10/17/22 01/30/24 Maycol Infante MD [address] [place] [address] Specialist Pulmonology 10/19/22 Sebastian Martinez MD [address] [place] [address] 83641 Specialist Ophthalmology 03/21/23 Eve Juan MD [address] [place] [address] [place] [address] Specialist UROGYNECOLOGY 03/21/23 Elisa Romero NP [address] [place] [address] [place] [address] Cardiology 01/31/24 Marcus Murcia DO [address] [place] [address] [place] [address] Specialist Physiatry 03/26/24 documented as of this encounter
--- OUTSIDE RECORDS SUMMARY | 2025-05-09 15:29 | XMS_ITS | Encounter Summary ---
Author Organization [facility] Address [address] [place] [address] Care Team Providers Care Telephone Information Clerk Name Role Phone Kameron Zuñiga MD Unavailable Katya Lopez NP Unavailable Unavailab Kathy Haley MD Primary Care Prov ider Be Pacheco NP Unavailable [phone] Maycol Infante MD Unavailable Unavailable Sebastian Martinez MD Unavailable UnavailEve Blackmon MD Unavailable Elisa Romero NP Unavailable [phone] Marcus Murcia DO Unavailable Unavailable Encounter Details Date Type Department Care Team Description 10/24/2022 Hospital Medical Records [address] [place] [address] Social History Tobacco Use Types Packs/Day Years [...] on filedocumented in this encounter Care Teams Telephone Information Clerk Relationship Specialty Start Date End Date Kathy Christopher MD [address] [place] [address] PCP - General Internal Medicine 01/21/22 Kameron Zuñiga MD Tumbler Machine Operator Cardiovascular Disease 08/04/21 Katya Lopez NP Cardiology 08/04/21 01/30/24 Be Pacheco NP [address] [place] [address] Nurse Practitioner Cardiology 10/17/22 01/30/24 Maycol Infante MD [address] [place] [address] Specialist Pulmonology 10/19/22 Sebastian Martinez MD [address] [place] [address] Specialist Ophthalmology 03/21/23 Eve Juan MD [address] [place] [address] [place] [address] Specialist UROGYNECOLOGY 03/21/23 Elisa Romero NP [address] [place] [address] Cardiology 01/31/24 Marcus Murcia DO [address] [place] [address] [place] [address] Specialist Physiatry 03/26/24 documented as of this encounter
--- NOTE | 2025-05-09 15:36 | MHC.OFFVIS ---
Intake Visit Reasons: cysto w/excision post op Intake Note: Patient presents today for follow up on: retention, frequency, and uti Urology Medications: None Blood Thinner:Aspirin Antibiotic Allergy:Amoxicillin PVR:0ml Animal Attendants And Trainers Required: No Accompanied by: Self / Same As Patient Allergies amoxicillin (Augmentin) Allergy (Mild, Verified 05/09/25 15:37) Rash clavulanic acid (From Augmentin) Allergy (Mild, Verified 05/09/25 15:37) RASH HPI Comments Details: 05/09/25--Claudette is status post periurethral cyst excision 03/27/2025-Shea is here for follow-up she had an MRI of the pelvis findings are notable for Nalini urethral abscess. History of Present Illness The patient is an 79-year-old female presenting with a periurethral abscess. MRI of the pelvis, which showed a collection in the urethra area. She is status post urethral dilation at which time there was some drainage of the abscess. The patient reports that the urine appears better, and she has less discomfort with urination. The patient has a history of diabetes mellitus, and cardiovascular disease and takes aspirin daily, along with isosorbide. The patient has previously stopped aspirin for procedures. Results - MRI of the pelvis: Notable for periurethral abscess Plan Periurethral Abscess - Schedule surgical drainage of the abscess in the operating room. - Send urine sample for culture - Stop aspirin 10 days prior to the procedure to minimize bleeding risk. - Coordinate with primary care for pre-operative evaluation including EKG and blood work. 10/30/24--Shea is a very pleasant 79 year old female patient of Dr. Rizo who was accompanied by her grand daughter at today's office visit. She has a history of pneumonitis, bronchopneumonia, chronic rhinitis, dizziness, headaches, hyperlipidemia, hypertension, diabetes, and COPD. She presents to the office today for follow-up of her lower urinary tract symptoms as well as recurrent urinary tract infections. In discussion with the patient today she reports having completed doxycycline as prescribed at her last office visit and continues with episodes of dysuria. She reports having seeked emergency room care services 2 weeks ago at which time she was told she had a question of a vaginal/urethral lesion. She reports being given medication for a potential yeast infection that she did not feel was helpful at all. In assessment of the patient today no lesions or open areas noted throughout the vagina and or urethra. The urethra does appear reddened. No foul-smell noted. In office urinalysis results reviewed with the patient today 3+ leukocytes negative nitrates. PVR 166 mL. Previous workup has included multiple urine cultures as noted and trended below: Urine culture: 11/10 < 10,000 cfu/ml Urine culture: 10/11 < 10,000 cfu/ml Urine culture: 09/10 ,10,000 to 50,000 cfu/ml Mixed bacterial ming Urine Culture: 08/13 Enterococcus faecalis Cirrus DX 10/11 noted E coli, Enterococcus faecalis, Staphylococcus spp., methicillin resistance Urine was collected via straight cath today and sent for microgen. We discussed low-dose terazosin to assist with incomplete bladder emptying as well as lifestyle modifications like double voiding to assist with incomplete bladder emptying. We also discussed application of Estrace cream to urethra as urethra was noted to be reddened. She otherwise denies hematuria, changes to urinary stream, flank pain, fever, and or chills. Previous workup has also included a retroperitoneal ultrasound 09/09 noting bilateral kidneys with no calculi, lesions, and or hydronephrosis. The bladder is partially distended. Bilateral ureteral jets are not demonstrated. Pre void bladder volume is approximately 140 mL. Postvoid bladder volume is approximately 40 mL. We discussed potential near future in office cystoscopy for further assessment evaluation She otherwise offers no issues or concerns at this time. [facility] Medical History CKD (chronic kidney disease) stage 3, GFR 30-59 ml/min Obesity (BMI 30.0-34.9) Chronic respiratory failure Asthma-COPD overlap syndrome Incontinence in female History of adenomatous polyp of colon Pneumonitis Bronchopneumonia Hypogammaglobulinemia Chronic rhinitis Dizziness Headache Hyperlipidemia HTN (hypertension) Diabetes COPD (chronic obstructive pulmonary disease) Surgical History Hx of cystoscopy (02/18/25) S/P right coronary artery (RCA) stent placement H/O colonoscopy History of foot surgery History of toe surgery History of bunionectomy Family History Mother No problems noted. Father No problems noted. Social History Household Members: None Housing: Apartment Are you a primary college and career counselor to a significant other at home: No Do you presently have visiting nurse or other home services: No Alcohol intake: never Comment: refusing the alarms Patient Tobacco Use Status: Former Tobacco user Tobacco use type: Cigarette Cigarettes Per Day: 0.5 Years Smoked: 40 Second Hand Smoke Exposure: No Advance Directives Date on File: 10/03/23 service: No Current occupational status: retired Sexual orientation: Straight/Heterosexual Gender identity: Female Office Procedures Post Void Residual Post Residual Void Post Void Residual (PVR): 0 [id number] Void Residual by ultrasound Results AMB Urinalysis, Automated UA Leukoctes 70 Haritha/uL Last Edit by Patt Long on 05/09/25 16:57 UA Nitrite Negative Last Edit by Patt Long on 05/09/25 16:57 UA Urobilinogen 0.2 mg/dL Last Edit by Patt Long on 05/09/25 16:57 UA Protein 15 mg/dL Last Edit by Patt Long on 05/09/25 16:57 UA pH 6.0 Last Edit by Patt Long on 05/09/25 16:57 UA Blood 25 Jefe/uL Last Edit by Patt Long on 05/09/25 16:57 UA Specific [place] 1.010 Last Edit by Patt Long on 05/09/25 16:57 UA Ketone Negative Last Edit by Patt Long on 05/09/25 16:57 UA Bilirubin 0 mg/dL Last Edit by Patt Long on 05/09/25 16:57 UA Glucose 0 mg/dL Last Edit by Patt Long on 05/09/25 16:57 Results Reviewed Results Reviewed: Collected: 04/15/25 [facility] Re[facility]: 04/16/25 Diagnosis Urethra, cyst wall, excision: Fragment of squamous-lined cyst wall with granulation tissue and associated acute and chronic inflammation in keeping with abscess formation. Clinical History Pre-Op Dx: Urethral abscess, periurethral cyst Post-Op Dx: periurethral cyst Microscopic Description Microscopic sections reviewed. Material Received Cyst wall of urethra Gross Description Received in formalin is a 1.2 cm in greatest dimension oleary membranous soft tissue, bisected and totally submitted in cassette A1. (DTL) NOTE: Unless otherwise stated, all tissue is formalin-fixed and paraffin-embedded. Some or all of the immunohistochemical tests reported herein may have been developed and their performance characteristics determined by [facility]. They have not been cleared or approved by the U.S. Food and Drug Administration (FDA). However, the FDA has determined that such clearance or approval is not necessary. This laboratory is certified under the Clinical Laboratory Improvement Amendments of 1988 (CLIA) as qualified to perform high complexity clinical laboratory testing. Electronically Signed By: Nereyda Camarena MD 04/17/25 [id number] Patient: Shea Ramirez Age/Sex: 79/F [id number] MR#: [id number] Page 1 of 1 Date of Service: 03/21/25 Reason for Exam: R93.5 - Abnormal findings on diagnostic imaging of other abdominal regio... EXAMINATION: MR PELVIS WITHOUT THEN WITH IV CONTRAST HISTORY: R93.5 - Abnormal findings on diagnostic imaging of other abdominal region.... TECHNIQUE: Axial T1, fat-suppressed T1, and fat suppressed T2, and sagittal and coronal T2-weighted MR images of the pelvis were obtained. Subsequently, sagittal and axial fat-suppressed T1-weighted images were obtained after the intravenous administration of 8 mL Gadavist. COMPARISON: Correlation is made with a CT of the pelvis dated 02/15/2025. FINDINGS: The uterus measures approximately 6.5 x 3.1 x 4.0 cm. There are fundal fibroids measuring 1.1 and 0.7 cm. The junctional zone is not thickened. The endometrium is unremarkable. There are nabothian cysts in the cervix. The cervical stroma is preserved. The right ovary is unremarkable. The left ovary is not definitely identified. When compared to the prior CT of the pelvis, the fluid collection inferior to the urinary bladder is much smaller in size and demonstrates enhancement of the wall. Findings are most compatible with a collapsed periurethral abscess. The residual fluid collection measures approximately 2.9 x 1.7 x 1.1 cm and is predominantly located to the right and posterior to the urethra. No ascites or pelvic lymphadenopathy is identified. The visualized bones demonstrate normal marrow signal intensity. IMPRESSION: Findings consistent with a partially collapsed periurethral abscess as described. Date of Service: 09/06/23 EXAMINATION: US RETROPERITONEAL COMPLETE (RENAL) FINDINGS: RIGHT KIDNEY: 9.2 x 5.4 x 4.7 cm (SAG x AP x TRV). The kidney is normal in size and contour. Increased cortical echogenicity. Renal cortical thickness is normal. No calculi or focal parenchymal lesions. No hydronephrosis. LEFT KIDNEY: 9.2 x 3.8 x 3.8 cm (SAG x AP x TRV). The kidney is normal in size and contour. Increased cortical echogenicity. Renal cortical thickness is normal. No calculi or focal parenchymal lesions. No hydronephrosis. BLADDER: Partially distended. Bilateral ureteral jets are not demonstrated. Prevoid bladder volume is 142 mL. Postvoid bladder volume is 42.5 mL. IMPRESSION: 1. No nephrolithiasis or hydronephrosis. 2. Increased cortical echogenicity of the bilateral kidneys suggesting chronic medical renal disease. 3. Mildly increased postvoid residual volume in the urinary bladder. Assessment & Plan Assessment & Plan Orders: Orders AMB Urinalysis Automated Today Z13.9 - Encounter for screening, unspecified AMB Post Void Residual by ultrasound Today R33.9 - Retention of urine, unspecified Urine Culture Today N30.00 - Acute cystitis without hematuria Medications: New estradiol 0.01%(0.1mg/gram) (Estrace) pea sized amount with fingertip vaginally bedtime; 42.5 grams 1RF Coding CPT Codes Post Residual Void - PVR CPT Code: 26836-[id number] Void Residual by ultrasound ([id number])
== END 2025-05-09 16:02 | disposition home or self-care (01) ==
LOC: HO.HUSH 15:21
PROVIDERS: Visit Provider Urology
DX: Z13.9 Encounter for screening, unspecified (principal)

== ENCOUNTER 2025-05-29 12:01 | Outpatient (REF) | payer OTHER, SELFPAY ==
--- NOTE | ~2025-05-29 | XR_ITS ---
EXAMINATION: XR CHEST CLINICAL INFORMATION: J40 - Bronchitis, not specified as acute or chronic COMPARISON: February 24, 2025 TECHNIQUE: PA and lateral views FINDINGS: Pulmonary reticular pattern. Haziness in the left lower hemithorax. No gross consolidation, pleural fissure pneumothorax. Cardiomediastinal silhouette size is normal. Calcified plaque thoracic aorta. Severe degenerative changes with volume loss at the glenohumeral joints, bilaterally. Multilevel thoracolumbar spondylosis and a shaped curvature. Osteopenia versus osteoporosis. XR/XR chest 2V IMPRESSION: Chronic interstitial lung disease without acute overt airspace disease. Consider COPD emphysematous type changes. Electronically signed by: Rashid Natarajan MD 05/29/2025 12:19 PM EST RP
[2025-05-29 14:49] LABS: Appearance Urine Clear; Glucose Urine UA Negative (Negative); PH 5.5 (5.0-9.0); Specific Gravity - Urine 1.015 (1.005-1.025); UMIC TRIGGER UACC YES
[2025-05-29 14:57] LABS: UACC Culture Trigger YES
== END 2025-05-29 12:02 | disposition home or self-care (01) ==
LOC: HO.XRAY 12:01
PROVIDERS: Visit Provider Hospitalist
DX: J44.1 Chronic obstructive pulmonary disease with (acute) exacerbation (principal); J18.9 Pneumonia, unspecified organism; J31.0 Chronic rhinitis; K21.9 Gastro-esophageal reflux disease without esophagitis; D80.1 Nonfamilial hypogammaglobulinemia; J44.89 Other specified chronic obstructive pulmonary disease; M54.50 Low back pain, unspecified; G89.29 Other chronic pain; Z87.891 Personal history of nicotine dependence
CPT/HCPCS: 71046; 81001; 87086; 99212

== ENCOUNTER → 2025-05-29 12:07 | Outpatient (BNV) | payer OTHER, SELFPAY | PROVIDERS: Visit Provider Radiology Diagnostic Radiology | DX: J40 Bronchitis, not specified as acute or chronic (principal); J84.9 Interstitial pulmonary disease, unspecified | CPT/HCPCS: 71046 ==

== ENCOUNTER 2025-05-29 13:40 | Outpatient (AMB) | payer OTHER, SELFPAY ==
[2025-05-29 13:49] VITALS: BP 104/54; PULSE 92; O2SAT 95; BMI 30.3
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
--- OUTSIDE RECORDS SUMMARY | 2025-05-29 20:54 | XMS_ITS | Continuity of Care Document ---
Author Organization [employer] [facility], [place] [employer] [facility] Address [address] [place] [address] Care Team Providers Care Healthcare Administrative Assistant Name Role Phone HIM CCA OTHER ZAIN SHIN Primary Care Provider Assessment Encounter Date Assessment Date Assessment LastModified by Organization Details LastModified Time 05/18/2025 05/18/2025 Evaluation in the field was performed by my motor vehicle dispatcher colleague, as noted above, I provided real-time direction and supervision for this visit. This is an 79yo F with COPD presenting with 4 days of cough, SOB with exertion, body aches. Is on 3L O2 at baseline but hasn't had to increase it. No fever. Using home albuterol without much relief. Feels like she needs a breathing treatment. PE: General: Awake & alert, NAD Respiratory: CTAB. Chest rise equal bilat, no increased wob CV: Regular rate, normal peripheral perfusion Neuro: A&Ox4, no focal deficits Impression: COVID 19 virus infection COPD exacerbation Plan: -VSS, appears well. No distress. -poc COVID test positive. Pt is vaccinated but has comorbidities of age, COPD. She is on day 4 of symptoms so does qualify for Paxlovid. Must pick up attendant and start tomorrow. Instructed to hold atorvastatin while on this medication. -Given DuoNeb and prednisone 60mg on scene. Feels improved after 1 tx. -Will also prescribe prednisone 20mg daily for the next 4 days for COPD. -Should f/u with PCP Disposition: Remain at home We discussed the diagnostic uncertainty of home visits and the risk associated with this. In this case, the patient and I felt this to be an acceptable and reasonable amount of risk given the benefit of avoiding an ED visit. We discussed the need to seek care urgently/emergen tly in the setting of any new or worsening serious symptoms. [email or web address] Not available 05/18/2025 15:49:44 Plan of Treatment Reminders Order Date Submit Date Provider Last Modified By Organization Details Last Modified Time Details Appointments None recorded. Lab rapid SARS CoV 2 Ag, QL IA, respiratory specimen 2024 [facility], [address] [place] [address], [id number] 16:21:42 rapid flu (A+B) 2024 [facility], [address] [place] [address], [id number] 16:21:59 Referral None recorded. Procedures None recorded. Surgeries None recorded. Imaging None recorded. Medication Orders prednisone 20 mg tablet 2024 [facility]acy #[id number], [address] [place], [address], 05:01:14 ipratropium 0.5 mg-albutero l 3 mg (2.5 mg base)/3 mL nebulizatio n soln 2024 [email or web address] [facility]/Pharmacy #[id number], [address] [place] [address], [id number], 15:01:37 albuterol sulfate 2.5 mg/3 mL (0.083 %) solution for nebulizatio n [facility][id number], [address] [place], [address], 15:01:37 ipratropium 0.5 mg-albutero l 3 mg (2.5 mg base)/3 mL nebulizatio n soln 2024 [email or web address] [facility]/Pharmacy #[id number], [address] [place] [address], [address], 5 15:01:37 Paxlovid 300 mg (150 mg x 2)-100 mg tablets in a dose pack 2024 025 [facility]/Pharmacy #[id number], [address] [place], [address], 5 15:06:06 prednisone 20 mg tablet 2024 025 [facility]armacy #[id number], [address] [place], [address], 5 05:01:14 Patient TargetsNo targets recorded. Patient InstructionsNo instructions recorded. Reason for Referral None Reported. Results Created Date Observation Date Name Description Value Unit Range Abnormal Flag Note LastModifiedBy Organization Detail LastModifiedTime Result Notes None recorded. Medical Equipment None Reported. Allergies Allergen ID Allergen Name Allergen Category Reaction Reaction Severity Criticality Documentation Date Start Date Code Code System Note Provider Name and Address Organization Details Recorded Time amoxicill in / clavulana te medicatio n rash Not available low 05/18/20252012 40380 RxNorm Not Available [facility] - External Data Service - prod 5 15:28:19 7839 Product containin g penicilli n (product) medicatio n Not available Not available Not available 04/16/2024 26770 8001 SNOMED Not Available [facility] - production 4 03:40:09 Medications Name Sig Start Date Stop Date Status Note LastModified by Organization Details LastModified Time poise*pads active Not Available Not Av ailable Not Available celecoxib 200 mg capsule TAKE 1 CAPSULE BY MOUTH TWICE A DAY active Not Available Not Available No t Available atorvastati n 80 mg tablet TAKE 1 TABLET BY MOUTH EVERY DAY active Not Available Not Available No t Available prednisone 10 mg tablet TAKE 2 TABS BY MOUTH DAILY X 14 DAYS, THEN 1 TAB DAILY X 14 DAYS active Not Available Not Available No t Available nitrofurant oin macrocrysta l 50 mg capsule TAKE 1 CAPSULE BY MOUTH DAILY FOR 180 DAYS. active Not Available Not Available No t Available albuterol sulfate 2.5 mg/3 mL (0.083 %) solution for nebulizatio n TAKE 1 VIAL BY NEBULIZAT ION EVERY 4 HOURS NEEDED FOR WHEEZING active Not Available Not Available No t Available cetirizine 10 mg tablet TAKE 1 TABLET BY MOUTH EVERY DAY active Not Available Not Available No t Available azithromyci n 250 mg tablet USE DIRECTED active Not Available Not Available No t Available fluconazole 150 mg tablet active Not Available Not Available Not Available metoprolol succinate ER 50 mg tablet,exte nded release 24 hr TAKE 1 TABLET BY MOUTH EVERY DAY active Not Available Not Available No t Available valacyclovi r 1 gram tablet TAKE 2 TABLETS BY MOUTH 2 TIMES DAILY. (SEPARATE DOSES BY ~12 HOURS). USE FOR 1 DAY WITH EACH FLARE active Not Available Not Available No t Available FreeStyle Lancets 28 gauge USE TO TEST BLOOD SUGAR ONCE DAILY NEEDED active Not Available Not Available No t Available phenazopyri dine 200 mg tablet TAKE 1 TABLET BY MOUTH 3 TIMES A DAY FOR 2 DAYS active Not Available Not Available No t Available prednisone 20 mg tablet Take 1 tablet every day by oral route for 4 days. 05/29 completed Not Available Not Available Not Available isosorbide mononitrate ER 30 mg tablet,exte nded release 24 hr TAKE 1 TABLET BY MOUTH EVERY DAY IN THE MORNING active Not Available Not Available No t Available amlodipine 5 mg tablet TAKE 1 TABLET BY MOUTH EVERY DAY FOR 90 DAYS active Not Available Not Available No t Available sulfamethox azole 800 mg-trimetho prim 160 mg tablet TAKE 1 TABLET BY MOUTH TWICE A DAY FOR 7 DAYS active Not Available Not Available No t Available doxycycline monohydrate 100 mg tablet TAKE 1 TABLET BY MOUTH TWICE A DAY FOR 2 WEEKS active Not Available Not Available No t Available lorazepam 0.5 mg tablet TAKE ONE OR TWO TABS BY MOUTH PRIOR TO PROCEDURE (SHOULDER INJECTION S) active Not Available Not Available No t Available amitriptyli ne 10 mg tablet TAKE 1 TABLET BY MOUTH EVERYDAY AT BEDTIME active Not Available Not Available No t Available meclizine 25 mg tablet TAKE 1 TABLET BY MOUTH TWICE A DAY NEEDED FOR DIZZINESS active Not Available Not Available No t Available phenazopyri dine 100 mg tablet TAKE 1 TABLET BY MOUTH 3 TIMES DAILY NEEDED FOR PAIN FOR UP TO 5 DAYS. active Not Available Not Available No t Available oseltamivir 75 mg capsule TAKE 1 CAPSILE ORALLY 2 TIMES A DAY FOR 5 DAYS active Not Available Not Available No t Available lisinopril 10 mg tablet TAKE 1 [...] (0.1 %) nasal spray USE 2 SPRAYS INTRANASA LLY 2 TIMES A DAY FOR 30 DAYS ADMINISTE R INTO EACH NOSTRIL active Not Available Not Available No t Available methylpredn isolone 4 mg tablets in a dose pack USE DIRECTED active Not Available Not Available No t Available albuterol sulfate HFA 90 mcg/actuati on aerosol inhaler INHALE 2 PUFFS BY MOUTH EVERY 4 TO 6 HOURS NEEDED FOR WHEEZE/SH ORTNESS OF BREATH active Not Available Not Available No t Available fluticasone propionate 50 mcg/actuati on nasal spray,suspe nsion USE 2 SPRAYS INTRANASA LLY DAILY FOR 30 DAYS active Not Available Not Available No t Available Laxative (bisacodyl) 5 mg tablet,kanwal yed release TAKE ONE EVERY NIGHT. active Not Available Not Available No t Available nitrofurant oin monohydrate /macrocryst als 100 mg capsule TAKE 1 CAPSULE BY MOUTH TWICE A DAY FOR 5 DAYS active Not Available Not Available No t Available ramelteon 8 mg tablet TAKE 1 TABLET BY MOUTH EVERYDAY AT BEDTIME active Not Available Not Available No t Available FreeStyle Lite Meter kit USE TO TEST BLOOD SUGAR ONCE DAILY NEEDED. active Not Available Not Available No t Available FreeStyle Lite Strips USE TO TEST BLOOD SUGAR ONCE DAILY NEEDED. active Not Available Not Available No t Available trospium ER 60 mg capsule,ext ended release 24 hr TAKE 1 CAPSULE BY MOUTH EVERY DAY active Not Available Not Available No t Available cholecalcif rick (vitamin D3) 50 mcg (2,000 unit) capsule TAKE 1 CAPSULE BY MOUTH EVERY DAY active Not Available Not Available No t Available dexlansopra zole 60 mg capsule,bip hase delayed release TAKE 1 CAPSULE BY MOUTH [...] 2)-100 mg tablets in a dose pack Take as instructe d 2024 active Not Available Not Available Not Avai lable Vitals Date Recorded Body temperature Heart rate Oxygen saturation Inhaled oxygen flow rate Respiratory rate Systolic And Diastolic Provider Name and Address Organization Details Last Updated DateTime 98.1 [degF] 91 /min 98 % 3 L/min 22 /min 144/84 mm[Hg] Not Available [facility] - production 14:58:54 Social History None recorded. Functional Status None recorded. Mental Status None recorded. Family History Nothing Reported. Medical History No medical history recorded. Gynecological HistoryNo gynecological history recorded. Obstetrics History GPAL:G 0 P 0 0 0 0 Past Encounters Encounter ID Performer Location Encounter Start Date Encounter Closed Date Diagnosis/Indication Diagnosis SNOMED-CT Code Diagnosis ICD10 Code Diagnosis IMO Codes Diagnosis Note [id number] Talia Childs MD [facility] ED Medical [address] [phone] 05/18/2025 14:58:47 05/18/2025 18:20:53 Acute COVID-19 4906714857 U07.0 [id number] Acute exac erbation of chronic obstructive pulmonary disease 435534351 J44.1 Health Concerns Section Related Observation LastModified by Organization Detai ls LastModified Time None Recorded Concern Status LastModified by Organization Details LastModified Time None Recorded Payers Encounter Date Sequence Insurance Name Policy Number Policy Wagner Covered Member ID Wagner Member ID Guarantor Name 05/18/2025 1 [facility] - DOS ON OR AFTER 2022 - DUAL ELIGIBLE - ALF OPTIONS AND ONE CARE (MEDICARE REPLACEMENT/ADV ANTAGE - HMO) Shea Ramirez [id number] Shea Ramirez Notes Date Note Type Note Provider Name and Address Organization Details Recorded Time 05/18/2025 text/html ROS as noted in the [facility] CRC Nurse Triage Notes (Delta Cook): Reason For Request: headache/SOB/lighth eaded/congestion/ch est tightness Denies: Increased work of breathing/labored with or without fever Unable to speak in full sentences without distress Discoloration of skin -cyanosis Needs to sleep sitting up, can t catch breath Shortness of breath in setting of confusion Chief Complaints: Breathing Problems, Headache PMH: COPD/Asthma, Congestive Heart Failure, Coronary Artery Disease PMH Reviewed at 05/18/2025 - 12:46 (ET) Allergies Reviewed at 05/18/2025 - 12:46 (ET) Comments: 79 y.o female complains of Breathing Problems, Headache Patient's granddaughter calling reporting patient has been feeling unwell for the last four days. Patient started with the headache, yesterday she started having difficulty breathing and cough. Last night patient now complaining of tightening of the chest and more difficulty breathing. Patient has known history of COPD, patient wears 3L via nasal cannula at baseline. Granddaughter states patient speaking in 4-6 word sentences before having to stop to catch her breath. Granddaughter reports patient SOB worse with exertion. Patient with no reported fever or chills. Patient able to sleep in normal position of comfort. Patient taking prescribed daily inhalers. I provided information on the mobile health provider response time and advised the patient and/or caregiver to monitor reported signs and symptoms. I discussed the warning signs of when to seek emergency care -Brianna Cook RN [employer]andy Polisher Organization Information for [facility] Business Legal Name: [employer]. Address: [address] [place] [address], Panel Wirer: Derrick Fitzgerald MD CLIA No.: [id number] [employer]isher POC Test Results from [facility] Rapid COVID antigen (14:52:59) COVID: + Attachments uploaded as part of this test result can be found under Documents section. Rapid influenza antigen (14:52:59) Flu: - Attachments uploaded as part of this test result can be found under Documents section. ................... ................... ................... ................... ................... ................... ................... ........ Candy Polisher Note From [facility]: Encountered patient seated upright and conscious with family present. Patient reports approximately four days of a non-productive cough, exertional shortness of breath and fatigue. Patient denies chest pain, fevers and acute changes in vision. POCT COVID was POSITIVE, Flu A+B NEGATIVE; [facility] notified. Skin warm, dry and of appropriate color for ethnicity. Head and neck, free of trauma and edema. -JVD. Breath sounds present, clear and equal bilaterally; patient reports she does not always exhibit wheezing while suffering an exacerbation. Abdomen is soft, non-tender and non-distended. Extremities free of trauma and edema. [facility] contacted: 60mg PO prednisone administered, duoneb treatment x1 administered; all medications administered after r ights were reconciled with patient. [facility] states they will send a prescription for further treatment, to a pharmacy of patients choice. Patient was advised to monitor herself for worsening symptoms, chest pain or fevers and was encouraged to seek further medial attention, including 911, if said symptoms were to develop. Patient verbalizes understanding of the plan and states she is comfortable remaining home today. [facility] Lab Orders: rapid SARS CoV 2 Ag, QL IA, respiratory specimen: Performed rapid flu (A+B): Performed [facility] Medication Orders: prednisone 20 mg tablet: Administered Comment: 60mg administered per verbal orders ipratropium 0.5 mg-albuterol 3 mg (2.5 mg base)/3 mL nebulization soln: Administered albuterol sulfate 2.5 mg/3 mL (0.083 %) solution for nebulization: Not Administered Comment: Second neb not performed at patients request. ipratropium 0.5 mg-albuterol 3 mg (2.5 mg base)/3 mL nebulization soln: Not Administered Comment: Second neb not performed at patients request. ................... ................... ................... ................... ................... ................... ................... ........ [facility] Consulted: Talia Childs ................... ................... ................... ................... ................... ................... ................... ........ Disposition: Fulfilled Talia Childs MD [address] [facility] [facility], [place], [address], Auth0 05/18/2025 15:49:47 OBGyn Episode No OBEpisode recorded.
--- OUTSIDE RECORDS SUMMARY | 2025-05-29 20:54 | XMS_ITS | Continuity of Care Document ---
Author Name [facility], Medical Address [address] [place] [id number] Organization Unknown Address [address] [place] [address] Medications No known medications Problems No known problems
--- OUTSIDE RECORDS SUMMARY | 2025-05-29 20:54 | XMS_ITS | Encounter Summary ---
Author Organization [facility] Address [address] [place] [address] Care Team Providers Care Community Midwife Name Role Phone Kathy Perez MD Primary Care Prov ider Encounter Details Date Type Department Care Team (Late st Contact Info) Description 05/19/2025 Results Follow-Up Adult Medicine [facility] [address], [place] [phone] Pau Shultz PA [address], [place] Social History Tobacco Use Types Packs/Day [...] for your loved ones. For example, childcare worker or elderly care for an older [...] Time PHQ-9 Depression Total Score: 0 03/06/20 25 1:37 PM EDT documented as of this encounter Care Teams Community Midwife Relationship Specialty Start Date End Date Kathy Perez MD [address] [place] [phone] PCP - General Internal Medicine 07/22/24 documented as of this encounter
--- OUTSIDE RECORDS SUMMARY | 2025-05-29 20:54 | XMS_ITS | Patient Health Record ---
Author Organization [facility] Address [address] [place] [address] Care Team Providers Care Hide Paster Name Role Phone Narciso MITTAL, Yomi Primary Care Provider Deion Melendrez Unavailable [phone] Reason For Referral No Information Medications Medication [...] [place] [address] [place] [address] CARLOS ADHIKARI Self - patient is the insured MEDICAID OF [facility] [address] [place] [phone] CARLOS ADHIKARI Self - patient is the insured
--- OUTSIDE RECORDS SUMMARY | 2025-05-29 20:54 | XMS_ITS | Continuity of Care Document ---
Author Name [facility], Medical Address [address] [place] [id number] Organization Unknown Address [address] [place] [address] Medications No known medications Problems No known problems
--- OUTSIDE RECORDS SUMMARY | 2025-05-29 20:54 | XMS_ITS | Data Portability ---
Author Organization [employer], [facility] Address [address] [place] [address] Care Team Providers Care Porcelain Turner Name Role Phone HIM CCA OTHER ZAIN SHIN Primary Care Provider Assessment Encounter Date Assessment Date Assessment LastModified by Organization Details LastModified Time 04/20/2024 04/20/2024 I provided real -time medical direction via phone for this encounter and was available for additional phone-based assistance as needed. I have reviewed and agree with the Assessment and Plan as documented by the Transit Clerk. Patient given the opportunity to ask questions. [...] on metoprolol to for rate control. Per job analysis manager on the scene, vital signs are [...] have any evidence of volume overload per job analysis manager on the scene. She has no [...] fever chills [email or web address] Not available 04/20/2024 15:54:18 05/18/2025 05/18/2025 Evaluation in the field was performed by my job analysis manager colleague, as noted above, I provided [...] symptoms so does qualify for Paxlovid. 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 Instructed to hold atorvastatin [...] 2 Ag, QL IA, respiratory specimen 2024 025 [facility], [address] [place] [address], [id number] 5 16:21:42 rapid flu (A+B) 2024 025 [facility], [address] [place] [address], [id number] 5 16:21:59 rapid SARS CoV 2 Ag, QL IA, respiratory specimen 2022 023 [email or web address], [address] [place] [address], [id number] 3 20:04:39 rapid flu (A+B) 2022 023 [email or web address], [address] [place] [address], [id number] 3 20:04:40 rapid strep group A, throat 2022 023 [email or web address], [address] [place] [address], [id number] 3 20:04:38 culture, urine 2022 023 [facility] (Centralized Electronic Ordering - All Locations), Patient Can Go To The Location Of Their Choice, [id number] 3 07:41:06 Referral None recorded. Procedures None recorded. Surgeries None recorded. Imaging None recorded. Medication Orders prednisone 20 mg tablet 2024 [facility]/Pharmacy #[id number], [address], [place], [address], 5 05:01:14 ipratropium 0.5 mg-albutero l 3 mg (2.5 mg base)/3 mL nebulizatio n soln [address]/Pharmacy #2071, [address] [place], [address], 5 15:01:37 albuterol sulfate 2.5 mg/3 mL (0.083 %) solution for nebulizatio n 2024 [address]25 [address] [place], [address], 5 15:01:37 ipratropium 0.5 mg-albutero l 3 mg (2.5 mg base)/3 mL nebulizatio n soln 2024 025 [address] [place], [address], 5 15:01:37 Paxlovid 300 mg (150 mg x 2)-100 mg tablets in a dose pack 2024 025 [facility] [address] [place], [address], 5 15:06:06 prednisone 20 mg tablet 2024 025 [facility] [address] [place], [address], 5 05:01:14 Levaquin 500 mg tablet [email or web address] [place] [address], [address] [place] [address], [address], 3 13:34:52 Patient TargetsNo targets recorded. Patient InstructionsNo instructions recorded. Reason for Referral None Reported. Results Created Date Observation Date Name Description Value Unit Range Abnormal Flag Note LastModifiedBy Organization Detail LastModifiedTime 09/28/19 23 09/27/2022 URINE CULTU RE specimen description URINE Not Available [facility] ([facility] - All Locations) Patient Can Go To The Location Of Their Choice, [id number] 09/29/2022 07:41:06 09/28/19 23 09/27/2022 URINE CULTU RE special requests NONE Not Available [facility] (Central[facility] Ordering - All Locations) Patient Can Go To The Location Of Their Choice, [id number] 09/29/2022 07:41:06 09/28/19 23 09/29/2022 URINE CULTU RE culture NO GROWTH Not Available [facility] (Centralized Electronic Ordering - All Locations) Patient Can Go To The Location Of Their Choice, [id number] 09/29/2022 07:41:06 09/28/1909/29/2022 URINE CULTU RE report status FINAL 2022 Not Available [facility] (Centralized Electronic Ordering - All Locations) Patient Can Go To The Location Of Their Choice, [address] 09/29/2022 07:41:06 06/17/20 23 06/17/2023 rapid strep group A, throa t Strep negati ve Not Available [facility] [address] [place] [address], [address] [place] [address] 06/17/2023 20:04:20 06/17/20 23 06/17/2023 rapid flu (A+B) Flu negati ve Not Available [facility] [address] [place] [address], [id number] 06/17/2023 20:04:18 06/17/20 23 06/17/2023 rapid SARS CoV 2 Ag, QL IA, respi rator y speci men rapid SARS CoV 2 Ag, QL IA, respiratory specimen negati ve Not Available [facility] [address] [place] [address], [phone] 06/17/2023 20:04:15 Result Notes None recorded. Medical Equipment None Reported. Allergies Allergen ID Allergen Name Allergen Category Reaction Reaction Severity Criticality Documentation Date Start Date Code Code System Note Provider Name and Address Organization Details Recorded Time amoxicill in / clavulana te medicatio n rash Not available low 05/18/20252012 64212 RxNorm Not Available mariana - External Data Service - prod 5 15:28:19 7839 Product containin g penicilli n (product) medicatio n Not available Not available Not available 04/16/2024 53414 8001 SNOMED Not Available [facility] - production [...] Available Not Avai lable Vitals Date Recorded Oxygen saturation Body temperature Heart rate Body weight Respiratory rate Systolic And Diastolic Provider Name and Address Organization Details Last Updated DateTime 3 98 % 95.7 [degF] 73 /min 98609.5 6 g 16 /min 125/67 mm[Hg] Not Available [facility] - production 3 13:30:35 Date Recorded Body weight Respiratory rate Heart rate Body height Body temperature Oxygen saturation Systolic And Diastolic Provider Name and Address Organization Details Last Updated DateTime 4 29985.5 6 g 18 /min 111 /min 162.56 cm 98.2 [degF] 94 % 117/66 mm[Hg] Not Available [facility] - production 4 14:23:22 Date Recorded Body temperature Heart rate Oxygen saturation Inhaled oxygen flow rate Respiratory rate Systolic And Diastolic Provider Name and Address Organization Details Last Updated DateTime 5 98.1 [degF] 91 /min 98 % 3 L/min 22 /min 144/84 mm[Hg] Not Available [facility] - production 5 14:58:54 Date Recorded Respiratory rate Body height Body weight Heart rate Oxygen saturation Body temperature Systolic And Diastolic Provider Name and Address Organization Details Last Updated DateTime 3 16 /min 162.56 cm 51782.5 6 g 90 /min 96 % 99.5 [...] Note 9333 Praveen Valdovinos MD Main - [address] [address] 09/27/2022 13:30:25 09/29/2022 10:29:50 Acute urinary tract infection 077093825 N39.0 98824 Petra Elmore MD [facility] - [address] [address] 06/17/2023 19:48:24 06/20/2023 12:24:39 Upper respiratory infection 25793140 J06.9 Evaluation in the field was performed by my job analysis manager colleague, as noted above, I provided [...] shortness of breath, cough, chest pain, fever. [address]4762 Solange Casas MD Main - [facility] [address] [place] [phone] 04/20/2024 14:23:19 04/20/2024 19:15:29 Decreased urine output 133894671 R34 Chronic ki dney disease stage 3 270507608 N18.30 Tachycardia 1521862 R00. 0 77120 Talia Smith MD Main-[facility] ED Medical [address] [address] 05/18/2025 14:58:47 05/18/2025 18:20:53 Acute COVID-19 6147442651 U07.0 [id number] Acute exac erbation of chronic obstructive pulmonary disease 339337532 J44.1 Health Concerns Section Related Observation LastModified by Organization Detai ls LastModified Time None Recorded Concern Status LastModified by Organization Details LastModified Time None Recorded Advance Directives Directive None Recorded Payers Insurance Date Sequence Insurance Name Policy Number Policy Wagner Covered Member ID Wagner Member ID Guarantor Name 06/17/2023 1 [facility] - DOS PRIOR TO 2022 - DUAL ELIGIBLE (MEDICARE REPLACEMENT/ADV ANTAGE - HMO) [facility] [id number] Shea Ramirez 05/28/2025 1 [facility] - DOS ON OR AFTER 2022 - DUAL ELIGIBLE - USP OPTIONS AND ONE CARE (MEDICARE REPLACEMENT/ADV ANTAGE - HMO) [facility] [id number] Shea Ramirez Notes Date Note Type Note [...] Member denies F/c/n/v/d Praveen Valdovinos MD [address] [facility],[address], [place], [address], [employer] 09/27/2022 13:35:12 023 text/ht ml HPI: Member [...] process visit. ................................... ................................... ................................... ................................... . Transit Clerk Note From Max Clemens: Pt reports dry [...] ................................... . Disposition: Fulfilled Petra Elmore MD [address] [place] [address],[address], [place], [address], [employer] 06/17/2023 20:04:49 024 text/ht ml HPI: mbr with multiple complaints, states experienced SOB last night where she had decided to take a diuretic, denies any Urine output at this time questioning retention , but does mention changing briefs multiple times over night, denies any Abdominal pain pressure or discomfort, no LE edema CP/N/V. per mbr B/P 153/78 HR 111. mbr requesting [facility] for evaluation.Protocol Used: Urinary SymptomsProtocol-Based Disposition: Consider [facility], SENIOR SOLUTIONS CONSULTANT, MD/CRACKING STILL OPERATOR triage, PCP, or ED /Urgent Care [...] Comments: Reviewed HPI SEGMD: Visit closed by [facility] end of shift before medic note transferred into [employer], so I entered it below: SummarySmartcare visit [...] this was present yesterday in visit with CRACKING STILL OPERATOR as well. Pt afebrile. Lung sounds clear bilaterally. Pt concerned about possible cloudy urine as well. Pt was unable to provide urine specimen for testing. Consulted with [facility] Dr. Casas who advised continuing to monitor symptoms. Reviewed red flags for ED. Pt education provided.Services ProvidedPatient EducationDispositionFulfilledWas patient sent to ED?[facility] consulted on the case?Yes - Solange Casas MD [address] [facility],[address], [place], [address], [place] [employer] 04/23/2024 15:04:20 025 text/ht ml ROS as noted in the [facility] Nurse Triage Notes (Delta Cook): Reason For Request: headache/SOB/lightheaded/congestion /chest tightness Denies: Increased work of breathing/labored with or without fever Unable to speak in full sentences without distress Discoloration of skin -cyanosis Needs to sleep sitting up, can t catch breath Shortness of breath in setting of confusion Chief Complaints: Breathing Problems, Headache PMH: COPD/Asthma, Congestive Heart Failure, Coronary Artery Disease PMH Reviewed at 05/18/2025 - 12:46 (ET) Allergies Reviewed at 05/18/2025 12:46 (ET) Comments: 79 y.o female complains [...] to seek emergency care -Brianna Cook RN Transit Clerk Organization Information for [facility] [employer] Name: [employer]. Address: [address] [place] [address], Client Coordinator: Derrick Fitzgerald MD CLIA No.: [id number] Transit Clerk POC Test Results from [facility] Rapid COVID antigen (14:52:59) COVID: + Attachments uploaded as part of this test result can be found under Documents section. Rapid influenza antigen (14:52:59) Flu: - Attachments uploaded as part of this test result can be found under Documents section. ................................... ................................... ................................... ................................... . Transit Clerk Note From Marcio Roger: Encountered patient seated upright and conscious with family present. Patient reports approximately four days of a non-productive cough, exertional shortness of breath and fatigue. Patient denies chest pain, fevers and acute changes in vision. POCT COVID was POSITIVE, Flu A+B NEGATIVE; [facility] notified. Skin warm, dry and of appropriate color for ethnicity. Head and neck, free of trauma and edema. -JVD. Breath sounds present, clear and equal bilaterally; patient reports she does not always exhibit wheezing while suffering an exacerbation. Abdomen is soft, non-tender and non-distended. Extremities free of trauma and edema. [facility] contacted: 60mg PO prednisone administered, duoneb treatment x1 administered; all medications administered after r ights were reconciled with patient. [facility] states they will send a prescription for further treatment, to a pharmacy of patients choice. Patient was advised to monitor herself for worsening symptoms, chest pain or fevers and was encouraged to seek further medial attention, including 911, if said symptoms were to develop. Patient verbalizes understanding of the plan and states she is comfortable remaining home today. [facility] Lab Orders: rapid SARS CoV 2 Ag, QL IA, respiratory specimen: Performed rapid flu (A+B): Performed [facility] Medication Orders: prednisone 20 mg tablet: Administered [...] Second neb not performed at patients request. ................................... ................................... ................................... ................................... . [facility] Consulted: Talia Smith ................................... ................................... ................................... ................................... . Disposition: Fulfilled Talia Smith MD [address] [facility],[address], [place], [address], [employer] [facility] 05/18/2025 15:49:47 OBGyn Episode No OBEpisode recorded.
--- OUTSIDE RECORDS SUMMARY | 2025-05-29 20:54 | XMS_ITS | Clinical Summary ---
Author Organization [facility] Prior to 11/16/24 Address [address] [place] [address] Care Team Providers Care Civil Engineer Name Role Phone Kathy Christopher MD Primary [...] age to complete this topic Care Teams Civil Engineer Relationship Specialty Start Date End Date Kathy Christopher MD [address] [place] [address] PCP - General Internal Medicine 09/14/23
--- OUTSIDE RECORDS SUMMARY | 2025-05-29 20:55 | XMS_ITS | Clinical Summary ---
Author Organization [facility] Address [address] [place] [address] Care Team Providers Care Lead Burner Helper Name Role Phone Pito Thompson MD Primary Care Provider [phone] Allergies No known active allergies Medications aspirin enteric coated (ECOTRIN LOW STRENGTH) 81 MG EC tabletIndication s:Coronary artery disease involving table mountain heart, unspecified vessel or lesion type, unspecified [...] patient's age to complete this topic Insurance [facility] [place]WORK Advance Directives * Full Code (Latest Code Status on File) Date Activated Date Inactivated Comments 07/24/2021 9:24 PM Care Teams Lead Burner Helper Relationship Specialty Start Date End Date Pito Thompson MD [address] [place] [address] PCP - General 07/25/21
--- OUTSIDE RECORDS SUMMARY | 2025-05-29 20:55 | XMS_ITS | Clinical Summary ---
Author Organization [facility] Address [address] [place] [address] Phone Care Team Providers Care Appliance Repairer Name Role Phone Kathy Perez MD Primary [...] each 10/16/19 25 026 Active metFORMIN XR (GLUCOPHAGE-XR ) 500 mg 24 hr tablet TAKE 1 TABLET BY MOUTH EVERY DAY WITH BREAKFAST 90 tablet 2 10/17/19 25 Active gabapentin (NEURONTIN) 100 mg capsule Take 1 capsule (100 mg total) by mouth 3 (three) times a day. 30 each 03/06/20 25 Active furosemide (LASIX) 20 mg tablet TAKE 2 TABLETS BY MOUTH EVERY DAY 60 tablet 11 04/07/20 25 Active cetirizine (ZyrTEC) 10 mg tablet TAKE 1 TABLET BY MOUTH EVERY DAY 90 tablet 1 04/07/20 Active isosorbide mononitrate (IMDUR) 30 mg 24 hr tablet TAKE 1 TABLET BY MOUTH EVERY DAY IN THE MORNING 90 tablet 04/28/20 Active oxyCODONE-acet aminophen (PERCOCET) 5-325 mg per tablet Take 1 tablet by mouth every 8 (eight) hours if needed for severe pain or moderate pain. 04/15/20 25 Active lidocaine (LIDODERM) 5 % patchIndicatio ns:Neck pain,Shoulder pain, unspecified chronicity, unspecified laterality,Cer vical spinal stenosis APPLY FOR NO MORE THAN 12 HOURS IN ANY [address] 1 PATCH ON THE SKIN 1 (ONE) TIME EACH DAY. APPLY FOR NO MORE THAN 12 HOURS IN ANY 24 HOUR PERIOD. 30 patch 1 05/28/20 25 Active lidocaine (LIDODERM) 5 % patchIndicatio ns:Neck pain,Shoulder pain, unspecified chronicity, unspecified laterality Apply for no more than 12 hours in any [address] 1 patch on the skin 1 (one) time each day. Apply for no more than 12 hours in any 24 hour period. 30 patch 1 11/27/19 25 025 Discontinued Active Problems Problem Noted Date Diagnosed Date White matter abnormality on MRI of brain 025 Osteoarthritis 04/23/2024 Class 1 obesity due to [...] Obstructive sleep apnea 11/21/2018 Overview (04/23/2024): [facility] Home Sleep Apnea Test: Date [...] x1 06/2015 Coronary artery disease invo lving burns pa[place] coronary artery of burns [place] heart without angina pectoris 01/21/2015 Overview (04/23/2024): [...] Gastroparesis 07/17/2012 Overview (04/23/2024): Dr. Stephenson at [address] [place] [address] GERD (gastroesophageal reflux disease) 3 Insomnia 07/17/2012 [...] Encounters Date Type Department Care Team Description 05/19/2025 Results Follow-Up Adult [address] [phone] Pau Shultz PA 05/14/2025 11:39 AM EST - 05/14/2025 11:59 PM EST Hospital Encounter [address] [phone] Acute pain of right shoulder Discharge Disposition: Home or Self Care 05/14/2025 11:00 AM EST Office Visit [address] [phone] Pau Shultz PA Chronic neck pain (Primary Dx); White matter abnormality on MRI of brain; Stage 3a chronic kidney disease (CMS/HCC V24, CMS/HCC V28); 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 V24, CMS/HCC V28); Acute pain of right shoulder; Hyperlipidemia, unspecified hyperlipidemia type; Primary hypertension 05/12/2025 Telephone Adult Medicine [address] [phone] Kathy Clark MD 04/29/2025 Telephone Adult Medicine [address] [phone] Ijeoma Diego MA 04/29/2025 Telephone Adult Medicine [address] [phone] Kathy Clark MD 04/09/2025 Telephone Adult Medicine [address] [phone] Kathy Clark MD 04/01/2025 Telephone Adult Medicine [address] [phone] Jayla Wilkins [place] 03/24/2025 Results Follow-Up Adult Medicine [address] [place] [phone] Kathy Clark MD 03/13/2025 6:23 PM EDT - 03/13/2025 11:59 PM EDT Hospital Encounter [facility] MRI [address] [place] [id number] Nonintractable headache, unspecified chronicity pattern, unspecified headache type Discharge Disposition: Home or Self Care 03/06/2025 1:30 PM EDT Office Visit Adult Medicine [address] [phone] Kathy Clark MD Nonintractable headache, unspecified chronicity pattern, unspecified headache type (Primary Dx); Recurrent UTI (urinary tract infection); Diabetes mellitus type 2 with neurological manifestations ([facility] V24, [facility] V28); Screening for depression 03/05/[address] [phone] Kathy Clark MD from Last 3 Months Immunizations Immunization Administration [...] OTHER SURGICAL HISTORY 2007 PROCEDURE: DE CORRECTION HAMMERTOE; COMMENT: FOOT SURGERY Left PROCEDURE: [...] PROCEDURE: HISTORICAL CARDIAC CATH; COMMENT: RCA stent [facility], Dr Hernandez UPPER GASTROINTESTINAL ENDOSCOPY 08/18/2004 PROCEDURE: DE UPPER GI ENDOSCOPY PERFORMED FOOT SURGERY 12/2013 Left PROCEDURE: HISTORICAL FOOT SURGERY; COMMENT: for second toe arthroplasty SHOULDER SURGERY Left PROCEDURE: HISTORICAL SHOULDER SURGERY; COMMENT: Arthroscopy with Dr. Berg KNEE SURGERY Left PROCEDURE: HISTORICAL KNEE SURGERY; COMMENT: Arthroscopy Medical History Medical History Date Comments Hypertension DX:Hypertension COPD (chronic obstructive pu lmonary disease) ([facility] V24, [facility] V28) DX:COPD (chronic o bstructive pulmonary disease) (HCC) Heart failure (CMS/[facility] V24, [facility] V28) DX:Heart failure (HCC) Diabetes mellitus (CMS/[facility] V 24, [facility] V28) DX:Diabetes mellitus (HCC) Asthma 07/17/2012 DX:Asthma [...] Orientation Straight 07/25/2024 3: 18 PM EST Last Filed Vital Signs Vital Sign Reading Time Taken Comments Blood Pressure 123/53 05/14/2025 10:59 AM EST Pulse 100 05/14/2025 10:59 AM EST Temperature 36.4 C (97.6 F) 05/14/2025 10:59 AM EST Respiratory Rate 14 05/14/2025 10:59 AM EST Oxygen Saturation 94% 05/14/2025 10:59 AM EST Inhaled Oxygen Concentration - - Weight 81.9 kg (180 lb 9.6 oz) 05/14/2025 10:59 AM EST Height 162.6 cm (5' 4 ) 05/14/2025 10:59 AM EST Body Mass Index 31 05/14/2025 10:59 AM EST Plan of Treatment Health Maintenance Due Date Last Done Comments Zoster Vaccines (1 of 2) 10/08/1964 Osteoporosis Screening (Bone Density Screening) 05/28/2022 Diabetes: Annual Retina Eye Exam 11/27/2024 11/28/2023 Diabetes: Annual Foot Exam 12/03/2024 12/04/2023 Diabetes: Blood Sugar Control Test (HGBA1C) 02/26/2025 08/26/2024, 03/26/2024, 03/26/2024, Additional history exists COVID-19 Vaccine ( season) 2025 03/21/2025, 05/02/2023, 05/24/2022, Additional history exists Social Influencers of Health [...] exists RSV Immunization Adult Patients Completed 04/20/2023 Medicare Annual Wellness Visit Discontinued 03/26/2024 Depression Screening Completed 03/06/2025, 03/26/20 24 Influenza Vaccine Completed 03/21/2025, , 02/28/2023, Additional history exists HIB Vaccines Aged Out [...] Name Priority Date/Time Associated Diagnosis Comments XR SHOULDER 2+ VIEWS RIGHT Routine 05/14/2025 11:51 AM EST Acute pain of right shoulder MR BRAIN WO CONTRAST Routine 03/13/2025 7:59 PM EDT Nonintractable headache, unspecified chronicity pattern, unspecified headache type MICROALBUMIN CREATININE URINE RATIO Routine 01/06/2025 11:29 [...] 11:03 AM EDT Coronary artery disease involving [place] coronary artery of [place] heart without angina pectoris Hyperlipidemia, unspecified hyperlipidemia type DEPRESSION SCREENING Routine 03/26/2024 FALLS RISK ASSESSMENT Routine 03/26/2024 DIABETES FOOT EXAM Routine 12/04/2023 DIABETES EYE EXAM Routine 11/28/2023 from Last 3 Months or Most Recently Relevant to Health Maintenance Results * XR Shoulder 2+ Views Right (05/14/2025 11:51 AM EST) Anatomical Region Laterality Modality Upper Extremities, Shoulder Right Radi ographic Imaging 05/14/2025 5:45 PM EST Impressions 05/14/2025 5:46 PM EST Degenerative changes as described. -------- FINAL REPORT -------- Dictated By: Tracey Hare Dictated Date: 05/14/2025 17:45 ET Assigned Physician: Tracey Hare Reviewed and Electronically Signed By: Tracey Hare Signed Date: 05/14/2025 17:46 ET Workstation ID: [id number] Transcribed By: Self Edit Transcribed Date: 05/14/2025 17:45 ET Narrative 05/14/2025 5:46 PM EST RIGHT SHOULDER, 4 VIEWS HISTORY: Shoulder pain x2 months. PRIORS: None. FINDINGS: There is moderate degenerative spurring of the right acromioclavicular joint. There is severe narrowing with subchondral sclerosis and degenerative spurring of the right glenohumeral joint. There is degenerative change of the visualized cervical spine and thoracic spine. No fracture, malalignment, or foreign body is seen. No soft tissue abnormality is seen. Procedure Note Tracey Hare MD - 05/14/2025 RIGHT SHOULDER, 4 VIEWS HISTORY: Shoulder pain x2 months. PRIORS: None. FINDINGS: There is moderate degenerative spurring of the rightacromioclavicular joint. There is severe narrowing with subchondral sclerosis and degenerativespurring of the right glenohumeral joint. There is degenerative change of the visualized cervical spine and thoracicspine. No fracture, malalignment, or foreign body is seen. No soft tissueabnormality is seen. IMPRESSION: Degenerative changes as described. -------- FINAL REPORT -------- Dictated By: Tracey Hare Dictated Date: 05/14/2025 17:45 ET Assigned Physician: Tracey Hare Reviewed and Electronically Signed By: Tracey Hare Signed Date: 05/14/2025 17:46 ET Workstation ID: [id number] Transcribed By: Self Edit Transcribed Date: 05/14/2025 17:45 ET Pau LOPEZ IMG XR PROCEDURES Final Result * MR Brain wo Contrast (03/13/2025 7:59 [...] Signed Date: 03/22/2025 09:27 ET Workstation ID: [id number] Transcribed By: Self Edit Transcribed Date: 03/22/2025 [...] Signed Date: 03/22/2025 09:27 ET Workstation ID: [id number] Transcribed By: Self Edit Transcribed Date: 03/22/2025 08:44 ET Kathy Perez MD [facility] MRI PROCEDURES Final Result * (ABNORMAL) Microalbumin creatinine urine ratio (01/06/2025 11:29 AM EDT) Creatinine, Urine 96.0 mg/dL LAB CHEMISTRY METHOD 01/06/2025 5:02 PM EDT [facility] Microalb, Ur 87.3(H) 0.0 - 29.0 mg/L LAB CHEMISTRY METHOD 01/06/2025 5:02 PM EDT [facility] Microalb/Crea t Ratio 91(H) <30 mg/g creat LAB CHEMISTRY METHOD 01/06/2025 5:02 PM [facility] Urine Urine specimen obtained by clean catch procedure / Unknown Non-blood Collection / Unknown 01/06/2025 11:29 AM EDT 01/06/2025 11:29 AM EDT us Everton Riddle MD LAB URINE ORDERABLES Final Re sult [facility] [address] [place] [address], [place] [phone] * (ABNORMAL) Renal function panel (01/06/2025 11:29 AM EDT) Sodium 141 133 - 145 mmol/L LAB CHEMISTRY METHOD 01/06/2025 4:52 PM [facility] Potassium 4.4 3.5 - 5.5 mmol/L LAB CHEMISTRY METHOD 01/06/2025 4:52 PM [facility] Chloride 106 96 - 110 mmol/L LAB CHEMISTRY METHOD 01/06/2025 4:52 PM [facility] CO2 30 21 - 32 mmol/L LAB CHEMISTRY METHOD 01/06/2025 4:52 PM [facility] Anion Gap 5 3 - 11 LAB CHEMISTRY METHOD 01/06/2025 4:52 PM [facility] Glucose 99 70 - 100 mg/dL LAB CHEMISTRY METHOD 01/06/2025 4:52 PM [facility] BUN 13 5 - 25 mg/dL LAB CHEMISTRY METHOD 01/06/2025 4:52 PM [facility] Creatinine 0.98 0.50 - 1.10 mg/dL LAB CHEMISTRY METHOD 01/06/2025 4:52 PM [facility] eGFR 58(L) >=60 mL/min/1. 73m2 LAB CHEMISTRY METHOD 01/06/2025 4:52 PM EDT [facility] Comment:Calculation based on the Chronic Kidney Disease Epidemiology Collaboration (CKD-EPI) equation refit without adjustment for race. BUN/Creatinine Ratio 13.3 LAB CHEMISTRY METHOD 01/06/2025 4:52 PM EDT [facility] Albumin 3.4 3.2 - 5.0 g/dL LAB CHEMISTRY METHOD 01/06/2025 4:52 PM EDT [facility] Calcium 9.3 8.5 - 10.5 mg/dL LAB CHEMISTRY METHOD 01/06/2025 4:52 PM EDT [facility] Phosphorus 4.0 2.5 - 4.5 mg/dL LAB CHEMISTRY METHOD 01/06/2025 4:52 PM [facility] Blood Venous blood specimen / Unknown Venipuncture / Unknown 01/06/2025 11:29 AM EDT 01/06/2025 11:29 AM EDT Everton Riddle MD LAB BLOOD ORDERABLES Final Re sult [facility] [address] [place] [address], * Lipid panel with reflex to direct LDL (08/26/2024 11:03 AM EDT) Cholesterol 141 0 - 200 mg/dL LAB CHEMISTRY METHOD 08/26/2024 2:15 PM EDT [facility] Triglycerides 117 0 - 150 mg/dL LAB CHEMISTRY METHOD 08/26/2024 2:15 PM T [facility] HDL 55 >=40 mg/dL LAB CHEMISTRY METHOD [facility] LDL Calculated 63 0 - 100 mg/dL LAB CHEMISTRY METHOD 08/26/2024 2:15 PM T [facility] VLDL Cholesterol Gus 23.4 mg/dL LAB CHEMISTRY METHOD 08/26/2024 2:15 PM EDT [facility] Non HDL Chol. (LDL+VLDL) 86 <145 mg/dL LAB CHEMISTRY METHOD 08/26/2024 2:15 PM EDT [facility] Chol/HDL Ratio 2.6 0.0 - 4.4 LAB CHEMISTRY METHOD 08/26/2024 2:15 PM EDT [facility] Blood Venous blood specimen / Unknown Venipuncture / Unknown 08/26/2024 11:03 AM EDT 08/26/2024 11:03 AM EDT Elisa Romero NP LAB BLOOD ORDERABLES Final Result [facility] [address] [place] [address], [place] [phone] * Hemoglobin A1c (08/26/2024 11:03 AM EDT) [facility] Hemoglobin A1C 6.4 <6.5 % LAB CHEMISTRY METHOD 08/26/2024 1:50 PM EDT [facility] Mean Bld Glu Estim. 137 mg/dL LAB CHEMISTRY METHOD 08/26/2024 1:50 PM EDT [facility] Blood Venous blood specimen / Unknown Venipuncture / Unknown 08/26/2024 11:03 AM EDT 08/26/2024 11:03 AM EDT Kathy Perez MD LAB BLOOD ORDERABL ES Final Result [facility] [address] [place] [address], [place] [phone] * Falls Risk Assessment (03/26/2024) [facility] Falls Risk Assessment Abstracted Historical Provider HEALTH MAINTENANCE Final Result * Depression Screening (03/26/2024) Pathologist [facility] Depression Screening Abstracted Historical Provider HEALTH MAINTENANCE Final Result * Diabetes Foot Exam (12/04/2023) [facility] Diabetes: Annual Foot Exam Abstracted Historical Provider HEALTH MAINTENANCE Final Result * Diabetes Eye Exam (11/28/2023) [facility] Diabetes: Annual Retina Eye Exam Abstracted Comment:External Completion of test per patient (Patient reports normal results) Historical Provider HEALTH MAINTENANCE Final Result from Last 3 Months or Most Recently Relevant to Health Maintenance Insurance [facility] Member Subscriber Plan / Payer (Ef fective 2025-Present) Name:Shea Ramirez Relation to Subscriber:Self Name:Shea Ramirez Payer ID:[id number] Group ID:[id number] Type:Not on file Address: [place] [address] [address] [id number] Care Teams Appliance Repairer Relationship Specialty Start Date End Date Kathy Perez MD [address] [place] [address] PCP - General Internal Medicine 07/22/24
--- OUTSIDE RECORDS SUMMARY | 2025-05-29 20:55 | XMS_ITS | Encounter Summary ---
Author Organization [facility] Address [address] [place] [address] Encounters * CPT with [facility] at [place] on 2025-05-18 { reasonForRequest : headache/SOB/lightheaded/congestion/chest tightness , patientReports : , denies :[ Increased work of breathing/labored with or without fever , Unable to speak in full sentences without distress , Dis coloration of skin -cyanosis , Needs to sleep sitting up, can t catch breath ,"Shortness of breath in setting of confusion ], chiefComplaints : Breathing Problems, Headache , pmh : COPD/Asthma, Congestive Heart Failure, Coronary Artery Di sease , allergies : Penicillins , otherAllergies :null, pain Assessment : , visitOutcome : , additionalComments :"79 y.o female complains of Breathing Problems, Headache\nPatient's granddaughter calling reporting patient has been feeling [...] sleep in normal position of comfort. Patient takingprescribed daily inhalers. I provided information on the mobile health provider response time and advised the patient and/or caregiver to monitor reported signs and symptoms. I discussed the warning signs of when to seek emergency care -Brianna Cook RN } Encountered patient seated upright and conscious with family present. Patient reports approximatelyfour days of a non-productive cough, exertional shortness of breath and fatigue. Patient denies chest pain, fevers and acute changes in vision. POCT COVID was POSITIVE, Flu A+B NEGATIVE; [facility] notified. Skin warm, dry and of appropriate color for ethnicity. Head and neck, free of trauma and edema. -JVD. Breath sounds present, clear and equal bilaterally; patient reports she does not always exhibit wheezing while suffering an exacerbation. Abdomen is soft, non-tender and non-distended. Extremities free of trauma and edema. [facility] contacted: 60mg PO prednisone administered, duoneb treatment x1 administered; all medications administered after ???rights?? were reconciled with patient. [facility] states they will send a prescription for further treatment, to a pharmacy of patients choice. Patient was advised to monitor herself for worsening symptoms, chest pain or fevers and was encouraged to seek further medial attention, including 911, if said symptoms were to develop. Patient verbalizes understanding of the plan and statesshe is comfortable remaining home today. IV_(FLUIDS_AND/OR_MEDICATION), MEDICATION_IM, ORAL_MEDICATION, EKG, POC_FLU_STREP, COVID_TEST Written by [facility] on 2025-05-18
== END 2025-05-29 14:21 | disposition home or self-care (01) ==
LOC: HO.HPS 13:41
PROVIDERS: Visit Provider Hospitalist
DX: J18.9 Pneumonia, unspecified organism (principal); J44.1 Chronic obstructive pulmonary disease with (acute) exacerbation; J31.0 Chronic rhinitis; K21.9 Gastro-esophageal reflux disease without esophagitis; D80.1 Nonfamilial hypogammaglobulinemia; J44.89 Other specified chronic obstructive pulmonary disease; M54.50 Low back pain, unspecified; G89.29 Other chronic pain
CPT/HCPCS: 99214; G2211